=== PATIENT | female | born 1935 | race Caucasian/White ===

== ENCOUNTER 2016-07-22 10:17 | Emergency (ER) | payer OTHER ==
[~2016-07-22] VITALS: Ht 170.2 cm; Wt 83.5 kg
[~2016-07-22 10:17] MED LIST: AMLO-110 PO; ASCO100061 PO; CYAN10002 IM; FURO-85 PO; HYDR-5688 PO; OMEG12006 PO; PERI8TAB4 PO; PRED20TA PO; SPIR25TA PO; TPRSR/50 PO; ZLF/100 PO
[2016-07-22 10:29] VITALS: TEMP 36.8; Ht 170.2 cm; Wt 83.5 kg
[2016-07-22 10:47] LABS: HEMATOCRIT 43.9 % (37-47); MEAN CELL VOLUME 95.2 fL (80-100); MEAN CORPUSCULAR HEMOGLOBIN 30.6 pg (25-34); MEAN CORPUSCULAR HGB CONC 32.1 g/dl (32-36); MEAN PLATELET VOLUME 9.8 fL (7.4-10.4); PLATELET COUNT 234 K/uL (130-400); RED BLOOD COUNT 4.61 M/uL (4.2-5.4); WHITE BLOOD COUNT 6.25 K/uL (4.8-10.8)
--- NOTE | 2016-07-22 10:48 | DIAGNOSTIC IMAGING REPORT ---
SINGLE VIEW CHEST CLINICAL HISTORY: Tachycardia. FINDINGS: An AP, portable, upright chest radiograph is compared to chest x-ray and chest CT dated 05/27/2015. The examination is degraded by portable technique and patient rotation. The heart is enlarged and there is atherosclerotic calcification of the thoracic aorta. The pulmonary vasculature is noncongested. Chronic interstitial thickening is similar to previous. No airspace consolidation or large pleural effusion is identified. No pneumothorax is seen. The skeletal structures are osteopenic. The bony thorax is grossly intact. IMPRESSION: Cardiomegaly with no acute cardiopulmonary abnormality. Electronically signed by: Oumar Nolasco M.D. 07/22/2016 10:47 AM Dictated Date/Time: 07/22/2016 10:45 AM
[2016-07-22 10:52] LABS: POTASSIUM 3.5 mmol/L (3.5-5.1)
[2016-07-22 10:56] LABS: BUN/CREATININE RATIO 16.2 (10-20); CALCIUM 9.1 mg/dl (8.5-10.1); CREATININE 0.87 mg/dl (0.60-1.20)
[2016-07-22 11:00] LABS: INR 0.9 (0.9-1.1); PARTIAL THROMBOPLASTIN RATIO 1.1
[2016-07-22 11:03] LABS: ALB/GLOB RATIO 1.1 (0.9-2); CKMB/CK RATIO 1.8 (0-3.0)
[2016-07-22 11:06] VITALS: O2SAT 98
[2016-07-22] MEDS ORDERED: SENN-104 PO (11:23)
[2016-07-22] MEDS ORDERED: ASCO10003 PO (11:23)
[2016-07-22] MEDS ORDERED: DILTIAZEM HCL 120 MG CAPCR PO ONE (13:40)
[2016-07-22] MEDS ORDERED: METOPROLOL SUCC 25MG EXT REL TAB PO ONE (13:40)
--- NOTE | 2016-07-22 14:01 | EMERGENCY ROOM VISIT NOTE ---
ED Visit Note First contact with patient: 11:18 Staff note: I have reviewed the Patients chart and have discussed this case with my PA. I generally agree with the ED note and findings.
[2016-07-22] MEDS ORDERED: DILT120C51 PO (14:02)
--- NOTE | 2016-07-22 14:05 | EMERGENCY ROOM VISIT NOTE ---
History First contact with patient: 11:18 Chief Complaint: CARDIAC ASSESSMENT Stated Complaint: TACHYCARDIA Nursing Triage Summary: Pt arrives via ALS from home Pt woke up at 0700 with fast heart rate and "funny" feeling in chest and throat EMS arrived on scene and heart rate was found to be between 110-180 A Fib Pt given 324mg ASA en route Pt converts to NSR in the 90's en route History of Present Illness The patient is a 81 year old female who presents to the Emergency Room via ALS due to her heart racing. The patient states that she woke up this morning with palpitations and "a funny feeling" in her throat. She states she has been having episodes of similar symptoms 3-4 times daily for the past few weeks. The episodes typically last approximately 5 minutes each. However, she states that the symptoms lasted longer this morning, prompting her to call 911. She states that her symptoms resolved when she arrived to the hospital. Per EMS, she was found to be in atrial fibrillation with rapid ventricular response converted spontaneously to normal sinus rhythm en route. She denies any symptoms at this time. She does have a history of coronary artery disease and has a stent in her LAD which was inserted in 2004. She also has a history of tachycardia and takes metoprolol for this. About 6 months ago, she was switched from 50 mg metoprolol daily to 25 mg daily due to hypotension. She reports an additional history of hypertension, high cholesterol and hyperparathyroidism. She follows with Dr. Hood locally. She denies any associated chest pain or shortness of breath. Review of Systems A complete 10 point review of systems was reviewed with the patient with pertinent positives and negatives as per history of present illness. All else were negative. Past Medical/Surgical History Medical Problems: (1) Arthroscopy of knee joint (2) Benign hypertension (3) Coronary artery disease (4) D-dimer, elevated (5) Hypercalcemia (6) Hysterectomy (7) Parathyroidectomy (8) Placement of stent in coronary artery (9) SOB (shortness of breath) (10) Stripping of vein Family History Diabetes mellitus FH: cancer MOTHER Social History Smoking Status: Never Smoker Drug Use: none Marital Status: Housing Status: lives with family Occupation Status: retired Current/Historical Medications Scheduled Amlodipine (Norvasc), 5 MG PO DAILY Ascorbic Acid (Vitamin C), 1,000 MG PO DAILY Aspirin (Aspirin Ec), 81 MG PO DAILY Atorvastatin (Lipitor), 80 MG PO HS Cyanocobalamin (Cyanocobalamin), 1,000 MCG SQ UD Diltiazem Hcl Coated Beads (Cardizem Cd), 1 CAP PO DAILY Ergocalciferol (Vitamin D 32994 Unit), 50,000 INTER.UNIT PO WK Furosemide (Lasix), 20 MG PO MWF Metoprolol Succinate (Toprol Xl), 25 MG PO DAILY Runnells-3 Fatty Acids (Runnells 3), 1 CAPSULE PO BID Perindopril Erbumine (Perindopril Erbumine), 8 MG PO HS Sennosides-Docusate Sodium (Senna-S), 2 TABLETS PO HS Sennosides-Docusate Sodium (Senna-S), 2 TABS PO DAILY Spironolactone (Aldactone), 25 MG PO MWF Scheduled PRN Hydrocodon/Acetaminophen 5MG/300MG (Vicodin (5MG/300MG)), 1 TAB PO Q4H PRN for Pain Lorazepam (Lorazepam), 0.5 MG PO Q6H PRN for Anxiety Omeprazole (Prilosec), 20 MG PO QAM PRN for Acid Reflux Allergies Coded Allergies: Metoprolol (Verified Allergy, Intermediate, RASH, 02/24/15) MUST BE [employer] Red Dye (Verified Allergy, Intermediate, RASH, 02/24/15) SPOKE WITH PATIENT - CAN TAKE RED COLOR PILLS Thiazide-Type Diuretics (Verified Allergy, Intermediate, "Wheezing", 02/24) Alendronate (Verified Allergy, Unknown, Wheezing, shortness of breath., ) Erythromycin (Verified Allergy, Unknown, ., 02/24/15) Ezetimibe (Verified Allergy, Unknown, Muscle pain., 02/24/15) Ibandronic Acid (Verified Allergy, Unknown, Trouble swallowing., 02/24/15) Iodinated Diagnostic Agents (Verified Allergy, Unknown, UNKNOWN, 02/24/15) Simvastatin (Verified Allergy, Unknown, Muscle pain., 02/24/15) Physical Exam Vital Signs Date Time Temp Pulse Resp B/P Pulse Ox O2 Delivery O2 Flow Rate FiO2 07/22/16 14:24 72 18 165/79 96 07/22/16 13:20 79 07/22/16 11:57 79 20 157/79 98 Room Air 07/22/16 11:06 98 Room Air 07/22/16 11:04 97 Room Air 07/22/16 10:36 84 07/22/16 10:29 36.8 92 20 167/106 98 Room Air Physical Exam VITALS: Vitals are noted on the nurse's note and reviewed by myself. Vital signs stable. GENERAL: This is a 81-year-old female, in no acute distress, nondiaphoretic, well-developed well-nourished. SKIN: Capillary reflex less than 2 seconds. HEENT: Normocephalic. PERRLA. EOMI. Nares patent. Mucous membranes moist. Neck is supple without nuchal rigidity. HEART: Regular rate and rhythm without murmurs gallops or rubs. LUNGS: Clear to auscultation bilaterally without wheezes, rales or rhonchi. NEURO: Patient was alert and oriented to person place and time. Medical Decision & Procedures ER Provider Diagnostic Interpretation: SINGLE VIEW CHEST CLINICAL HISTORY: Tachycardia. FINDINGS: An AP, portable, upright chest radiograph is compared to chest x-ray and chest CT dated 05/27/2015. The examination is degraded by portable technique and patient rotation. The heart is enlarged and there is atherosclerotic calcification of the thoracic aorta. The pulmonary vasculature is noncongested. Chronic interstitial thickening is similar to previous. No airspace consolidation or large pleural effusion is identified. No pneumothorax is seen. The skeletal structures are osteopenic. The bony thorax is grossly intact. IMPRESSION: Cardiomegaly with no acute cardiopulmonary abnormality. Laboratory Results 07/22/16 09:35 07/22/16 09:35 Test 07/22/16 09:35 Red Blood Count 4.61 M/uL (4.2-5.4) Mean Corpuscular Volume 95.2 fL (80-100) Mean Corpuscular Hemoglobin 30.6 pg (25-34) Mean Corpuscular Hemoglobin Concent 32.1 g/dl (32-36) RDW Standard Deviation 47.1 fL (36.4-46.3) RDW Coefficient of Variation 13.5 % (11.5-14.5) Mean Platelet Volume 9.8 fL (7.4-10.4) Prothrombin Time 10.0 SECONDS (9.0-12.0) Prothromb Time International Ratio 0.9 (0.9-1.1) Activated Partial Thromboplast Time 27.4 SECONDS (21.0-31.0) Partial Thromboplastin Ratio 1.1 Anion Gap 9.0 mmol/L (3-11) Est Creatinine Clear Calc Drug Dose 58.2 ml/min Estimated GFR () 73.4 Estimated GFR (Non- 63.4 BUN/Creatinine Ratio 16.2 (10-20) Calcium Level 9.1 mg/dl (8.5-10.1) Total Bilirubin 0.8 mg/dl (0.2-1) Aspartate Amino Transf (AST/SGOT) 16 U/L (15-37) Alanine Aminotransferase (ALT/SGPT) 16 U/L (12-78) Alkaline Phosphatase 38 U/L (45-117) Total Creatine Kinase 101 U/L (26-192) Creatine Kinase MB 1.8 ng/ml (0.5-3.6) Creatine Kinase MB Ratio 1.8 (0-3.0) Troponin I 0.015 ng/ml (0-0.045) Total Protein 7.0 gm/dl (6.4-8.2) Albumin 3.6 gm/dl (3.4-5.0) Globulin 3.4 gm/dl (2.5-4.0) Albumin/Globulin Ratio 1.1 (0.9-2) Thyroid Stimulating Hormone (TSH) 3.790 uIu/ml (0.300-4.500) Medications Administered Medications (Trade) Dose Ordered Sig/Reginald Route Start Time Stop Time Status Last Admin Dose Admin Metoprolol Succinate (Toprol Xl Tab) 25 mg 1340 ONCE PO 07/22/16 13:40 07/22/16 13:50 DC 07/22/16 14:13 25 MG Diltiazem HCl (Cardizem Cd Cap) 120 mg 1340 ONCE PO 07/22/16 13:40 07/22/16 13:50 DC 07/22/16 14:14 120 MG ECG Rate (beats per minute): 83 Rhythm: normal sinus Findings: no acute ischemic change, no ectopy Change: no significant change ED Course The patient was evaluated as above. Labs were drawn and IV access was obtained. Patient was reevaluated and remains in normal sinus rhythm. Case was discussed with Dr. Childers as [facility] cardiology. He will consult on the patient. Dr. Childers evaluated the patient and recommended starting Cardizem. His office will contact the patient for follow-up. Discharge instructions were reviewed with the patient. The patient verbalized understanding of my assessment and treatment plan and was discharged home in good condition. Medical Decision Differential diagnosis includes acute coronary syndrome, pulmonary embolism, pneumothorax, pericarditis, myocarditis, endocarditis, anxiety, musculoskeletal pain, GERD, costochondritis, pneumonia, among others. The patient is a 81-year-old female who presents today complaining of palpitations. EMS rhythm strips were reviewed and did show atrial fibrillation with rapid ventricular response. The patient's EKG here shows a normal sinus rhythm without acute ischemia or ectopy. Troponin was not elevated. Labs were unremarkable. TSH is within normal limits. The patient remained in normal sinus rhythm on the monitor with occasional PVCs. She is a symptomatic at this time. Patient was evaluated by Dr. Childers, who recommended adding a baby aspirin daily and starting the patient on Cardizem CD 120 mg. The patient was given a prescription for this medication. She was given her dose of metoprolol as well as Cardizem in the emergency department. She will follow-up with Dr. Hood as an outpatient. The patient was independently evaluated by Dr. Stevens, ED attending physician, who agreed with my assessment and treatment plan. Based on the patient's presentation and work up, I feel the patient is stable for outpatient treatment. The patient was educated to return to the emergency department for any worsening of their current condition or new/concerning symptoms. She will follow up with her application support analyst and primary care provider. Impression Primary Impression: Atrial fibrillation with rapid ventricular response Departure Information Dispostion Home / Self-Care Condition GOOD Prescriptions Diltiazem Hcl Coated Beads (CARDIZEM CD) 120 Mg Cap 1 CAP PO DAILY, #30 CAP Prov: Desi Peng ., RAMYA 07/22/16 Referrals Leticia Olivares M.D. (PCP) Patient Instructions My [facility] Additional Instructions Cardizem daily as prescribed. Follow-up with Dr. Childers. Their office should call you with an appointment. Return to the emergency department with any recurrent symptoms, chest pain, shortness of breath, or new/concerning symptoms.
[2016-07-22 14:24] VITALS: BP 165/79; PULSE 72; O2SAT 96
--- NOTE | 2016-07-22 16:08 | CARDIOLOGY CONSULTATION ---
DATE OF CONSULTATION: 07/22/2016 CONSULTATION REQUESTED BY: The ER PA. REASON FOR CONSULTATION: Symptomatic atrial fibrillation. HISTORY OF PRESENT ILLNESS: Mrs. Coe is a very pleasant 81-year-old woman who normally follows with Dr. Hood of our cardiology practice for history of coronary artery disease. She presented to [facility] Emergency Department on 07/22/2016 with a complaint of palpitations. She states that over the last several weeks she is noticing that her heart will suddenly start to race and it will be rather uncomfortable for her. She states that this can occur either at rest or with exertion and usually only lasts a few minutes and subsides on its own. Last evening she had another episode of her heart racing; however, this episode persisted. Seemed to wax and wane throughout the night and persisted into the morning, so upon awakening, she called EMS and was brought into the Emergency Department. When she was placed on front desk monitor by EMS, atrial fibrillation was documented and then the patient spontaneously converted to normal sinus rhythm during the transportation. Upon arrival to the ER, she was in sinus and she remained in sinus throughout her stay. Cardiology was consulted for further evaluation. Of note, the patient states this is the longest episode she has ever had, lasting about 10 hours. The other episodes seemed to last only for a moment or two. She has never had any workup in the past for palpitations and she has never been diagnosed with atrial fibrillation before. PAST SURGICAL HISTORY: 1. PCI to the LAD in 2004. 2. Total hysterectomy. 3. Colonoscopies. 4. Tonsil and adenoidectomy. 5. Vein stripping. 6. Cataract surgery. MEDICAL ILLNESSES: 1. Coronary artery disease, status post PCI to the LAD. 2. Anxiety. 3. Asthma. 4. Hypertension. 5. Depression. 6. Dyslipidemia. 7. Hyperparathyroidism. 8. Stage III chronic kidney disease. FAMILY HISTORY: Noncontributory. SOCIAL HISTORY: The patient denies any alcohol, tobacco or recreational drug use. She is . 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 REVIEW OF SYSTEMS: As per HPI, all other review of systems were reviewed and negative at this time. ALLERGIES: 1. ERYTHROMYCIN. 2. ZETIA. 3. CONTRAST AGENTS. 4. METOPROLOL TARTRATE. 5. RED DYE. 6. SIMVASTATIN. 7. THIAZIDE DIURETICS. MEDICATIONS AN OUTPATIENT: 1. Aspirin 81 mg daily. 2. Spironolactone 25 mg q. Tuesday, Tuesday, Tuesday as needed for fluid retention. 3. Lasix 20 mg q. Tuesday, Tuesday, Tuesday as needed for fluid retention. 4. Toprol-XL 25 mg daily. 5. Lipitor 80 mg daily. 6. Amlodipine 5 mg daily. PHYSICAL EXAMINATION: VITALS: Temperature is 36.8, pulse 79, respiratory rate 12, blood pressure 157/79. GENERAL: Awake, alert, oriented x3 in no acute distress, mildly anxious. HEENT: Normocephalic, atraumatic. Pupils equal, round, and reactive to light and accommodation. Extraocular muscles intact. Anicteric sclerae. Moist mucous membranes. NECK: No JVD, no bruit. CARDIOVASCULAR: Regular. Positive S4. Normal S1 and S2. No S3. No murmurs or rubs. PULMONARY: Clear to auscultation bilaterally. No rales, rhonchi or wheezing. ABDOMEN: Bowel sounds x4, soft. No rebound, guarding, tenderness. No organomegaly. EXTREMITIES: No clubbing, cyanosis or edema. +2 pedal pulses bilaterally. SKIN: Warm and dry. TEST RESULTS: Telemetry strips from EMS reviewed personally shows atrial fibrillation with rapid ventricular response. A 12-lead EKG upon presentation to the Emergency Department independently reviewed at this time shows normal sinus rhythm at 83 beats per minute. IMPRESSION: 1. Paroxysmal atrial fibrillation, new onset with a CHADS score of 2. 2. Hypertension. 3. Coronary artery disease. 4. Dyslipidemia. RECOMMENDATIONS: It was my pleasure to see Mrs. Coe in consultation today. The pathophysiology and treatment options for atrial fibrillation were discussed with the patient at great lengths. At this point, the patient states that she absolutely does not want any blood thinners whatsoever stating that she is scared of this medication. So given the fact that her episode spontaneously resolved along with her intermediate JANE score of 2, we will proceed with aspirin 81 mg daily only at this time. In terms of further rate and rhythm control further options were discussed including increasing her metoprolol, adding Cardizem or starting her on antiarrhythmic and the patient opted for starting Cardizem along with her normal dose of metoprolol given the fact that higher doses of Toprol in the past have caused hypotension. So at this point, will discontinue her amlodipine 5 mg daily and start her on Cardizem-CD 120 mg daily. She will continue her aspirin and metoprolol. We will need to follow her further on a monitor to evaluate for her atrial fibrillation burden, so we will arrange for a 2-week ZIO monitor as an outpatient as well as a followup 2-D echocardiogram which she has not had in about 6 years now and will then have her followup with Dr. Hood her primary ic designer standard cells in the next few weeks once the above testing is completed. In the meantime, the patient was instructed should she have any recurrences of her symptoms, she should come back immediately to the nearest Emergency Room. The patient states she understands and will comply, it is okay to discharge the patient home from a cardiac standpoint.
[2016-07-23] MEDS ORDERED: METOPROLOL SUCC 25MG EXT REL TAB PO SCH (09:00)
[2016-07-23] MEDS ORDERED: DILTIAZEM HCL 120 MG CAPCR PO SCH (09:00)
[2016-12-11] MEDS ORDERED: HYDR-3419 PO (11:23)
[2016-12-11] MEDS ORDERED: METO25TA3 PO (11:23)
[2016-12-11] MEDS ORDERED: CYNI1000 SQ (11:23)
== END 2016-07-22 14:25 | disposition home or self-care (01) ==
LOC: EDBD 10:17 → C.EDC 10:20
DX: I48.91 Unspecified atrial fibrillation (principal); I10 Essential (primary) hypertension; I25.10 Atherosclerotic heart disease of native coronary artery without angina pectoris; Z90.710 Acquired absence of both cervix and uterus; Z98.61 Coronary angioplasty status; Z96.659 Presence of unspecified artificial knee joint; Z79.82 Long term (current) use of aspirin; Z79.899 Other long term (current) drug therapy; Z88.8 Allergy status to other drugs, medicaments and biological substances; Z91.041 Radiographic dye allergy status; Z83.3 Family history of diabetes mellitus; Z80.9 Family history of malignant neoplasm, unspecified

== ENCOUNTER 2016-12-11 15:33 | Emergency (ER) | payer OTHER ==
[~2016-12-11] VITALS: Ht 170.2 cm; Wt 86.3 kg
[~2016-12-11 15:33] MED LIST changes: +ASCO10003 PO; -ASCO100061 PO; -CYAN10002 IM; +CYNI1000 SQ; +DILT120C51 PO; +HYDR-3419 PO; -HYDR-5688 PO; +METO25TA3 PO; -PRED20TA PO; +SENN-104 PO; -TPRSR/50 PO; -ZLF/100 PO
[2016-12-11 15:36] VITALS: TEMP 36.9; Ht 170.2 cm; Wt 86.3 kg
[2016-12-11] MEDS ORDERED: LIDOCAINE/EPINEPH/TETRACAINE 1 EA SYR EXT STA (15:58)
[2016-12-11 16:03] VITALS: O2SAT 97
[2016-12-11] MEDS ORDERED: LIDOCAINE 4% W/AFRIN NASAL SOLN 4ML ONE (16:06)
[2016-12-11 16:12] LABS: BASO % 0.5 %; BASO ABS # 0.03 K/uL (0-0.2); COMPLETE YES; EOS % 3.7 %; IG% 0.4 %; LYMPH % 24.8 %; LYMPH ABS # 1.41 K/uL (1.2-3.4); MEAN CELL VOLUME 94.6 fL (80-100); MEAN CORPUSCULAR HEMOGLOBIN 31.2 pg (25-34); MEAN PLATELET VOLUME 9.3 fL (7.4-10.4); MONO % 9.8 %; NEUT % 60.8 %; PLATELET COUNT 218 K/uL (130-400); RED BLOOD COUNT 4.23 M/uL (4.2-5.4); WHITE BLOOD COUNT 5.69 K/uL (4.8-10.8)
--- NOTE | 2016-12-11 16:21 | EMERGENCY ROOM VISIT NOTE ---
History First contact with patient: 15:40 Chief Complaint: NOSE BLEED (MINOR) Stated Complaint: NOSE BLEED History of Present Illness The patient is a 81 year old female who presents to the Emergency Room with complaints of nosebleed that started around 1 PM today. She states the nose began bleeding spontaneously, she denies any trauma or injury to the nose. She states that she held pressure for at least 20 minutes and got the bleeding to stop. She started to eat lunch and then the bleeding began again, and she had difficulty stopping the bleeding, which prompted her to come to the emergency department today. She has had some associated dizziness/feeling funny in the head. She states the bleeding has been coming out of the front of her left nostril, she denies swallowing blood or drainage in the back of her throat. She reports a remote history of nosebleed once before many years ago that she states "they had to cauterize it." Patient has a friend who is a nurse who took her blood pressure and states it was elevated at 180/90. The patient does take Coumadin for recent diagnosis of atrial fib, states her last INR level was checked about a week or so ago and was 2.5. She denies noticing any other unusual bleeding or bruising. She denies any headache, vision changes, neck pain, chest pain, shortness of breath, palpitations, syncope, abdominal pain, numbness or weakness, confusion, slurred speech. Review of Systems A complete 10 point review of systems was reviewed with the patient with pertinent positives and negatives as per history of present illness. All else were negative. Past Medical/Surgical History Medical Problems: (1) Arthroscopy of knee joint (2) Benign hypertension (3) Coronary artery disease (4) D-dimer, elevated (5) Hypercalcemia (6) Hysterectomy (7) Parathyroidectomy (8) Placement of stent in coronary artery (9) SOB (shortness of breath) (10) Stripping of vein Family History Diabetes mellitus FH: cancer MOTHER Social History Smoking Status: Never Smoker Drug Use: none Marital Status: Housing Status: lives with family Occupation Status: retired Current/Historical Medications Scheduled Aspirin (Aspirin Ec), 81 MG PO DAILY Atorvastatin (Lipitor), 80 MG PO HS Cyanocobalamin (Cyanocobalamin), 1,000 MCG SQ MONTHLY Denosumab (Prolia), 60 MG PO Q6MO Ergocalciferol (Vitamin D 30987 Unit), 50,000 INTER.UNIT PO WK Metoprolol Succinate (Toprol Xl), 25 MG PO DAILY Sennosides-Docusate Sodium (Senna-S), 2 TABLETS PO HS Warfarin Sodium (Warfarin Sodium), 2.5 MG PO [id number] Warfarin Sodium (Warfarin Sodium), 5 MG PO Q MON Scheduled PRN Hydrocodon/Acetaminophen 5MG/300MG (Vicodin (5MG/300MG)), 1 TAB PO Q4H PRN for Pain Lorazepam (Lorazepam), 0.5 MG PO Q6H PRN for Anxiety Omeprazole (Prilosec), 20 MG PO QAM PRN for Acid Reflux Physical Exam Vital Signs Date Time Temp Pulse Resp B/P (MAP) Pulse Ox O2 Delivery O2 Flow Rate FiO2 12/11/16 17:44 66 24 194/95 96 Room Air 12/11/16 17:15 65 12/11/16 17:12 66 21 165/98 96 12/11/16 16:03 97 Room Air 12/11/16 16:03 97 Room Air 12/11/16 15:36 36.9 70 20 179/95 97 Room Air Physical Exam CONSTITUTIONAL: No acute distress. Well appearing and well nourished. Alert and oriented X 4 with normal affect. HEENT: Normocephalic, atraumatic. Pupils equal, round and reactive to light, EOMI. TMs normal. Bilateral naris patent, there is a small blood vessel on the anterior septum of the left naris that appears irritated, no active bleeding noted. Pharynx normal, no posterior draining blood or clots in the throat. NECK: Supple, full active range of motion without discomfort. RESPIRATORY: Clear to auscultation bilaterally with no wheezing, crackles, rhonchi or stridor. Equal expansion bilaterally. CARDIOVASCULAR: Regular rate and rhythm with no murmurs, rubs or gallops. Normal peripheral perfusion. No edema. GASTROINTESTINAL: Soft, nontender, nondistended. Bowel sounds present in all quadrants. MUSCULOSKELETAL: Full range of motion of all joints without discomfort. INTEGUMENTARY: No rash or other significant dermatologic conditions noted. NEUROLOGIC: Cranial nerves II-XII grossly intact. No focal neurologic deficits noted. Normal strength, normal sensation, normal gait, normal speech, normal coordination. Medical Decision & Procedures ER Provider Diagnostic Interpretation: TWO VIEW CHEST CLINICAL HISTORY: Hypertension. FINDINGS: PA and lateral chest radiographs are compared to study dated 07/22/2016 and correlated with chest CT dated 05/27/2015. The heart is enlarged and there is atherosclerotic calcification of the thoracic aorta. The pulmonary vasculature is noncongested. Chronic interstitial thickening and focal eventrated of the right hemidiaphragm are similar to previous. No airspace consolidation or pleural effusion is identified. There is no pneumothorax. The skeletal structures are osteopenic. Degenerative change and mild hyperkyphosis is present in the thoracic spine. IMPRESSION: Cardiomegaly with no active disease in the chest. Laboratory Results 12/11/16 16:00 Red Blood Count 4.23, Mean Corpuscular Volume 94.6, Mean Corpuscular Hemoglobin 31.2, Mean Corpuscular Hemoglobin Concent 33.0, Mean Platelet Volume 9.3, Neutrophils (%) (Auto) 60.8, Lymphocytes (%) (Auto) 24.8, Monocytes (%) (Auto) 9.8, Eosinophils (%) (Auto) 3.7, Basophils (%) (Auto) 0.5, Neutrophils # (Auto) 3.46, Lymphocytes # (Auto) 1.41, Monocytes # (Auto) 0.56, Eosinophils # (Auto) 0.21, Basophils # (Auto) 0.03 12/11/16 16:00 Test 12/11/16 16:00 12/11/16 16:10 White Blood Count 5.69 K/uL (4.8-10.8) Red Blood Count 4.23 M/uL (4.2-5.4) Hemoglobin 13.2 g/dL (12.0-16.0) Hematocrit 40.0 % (37-47) Mean Corpuscular Volume 94.6 fL (80-100) Mean Corpuscular Hemoglobin 31.2 pg (25-34) Mean Corpuscular Hemoglobin Concent 33.0 g/dl (32-36) Platelet Count 218 K/uL (130-400) Mean Platelet Volume 9.3 fL (7.4-10.4) Neutrophils (%) (Auto) 60.8 % Lymphocytes (%) (Auto) 24.8 % Monocytes (%) (Auto) 9.8 % Eosinophils (%) (Auto) 3.7 % Basophils (%) (Auto) 0.5 % Neutrophils # (Auto) 3.46 K/uL (1.4-6.5) Lymphocytes # (Auto) 1.41 K/uL (1.2-3.4) Monocytes # (Auto) 0.56 K/uL (0.11-0.59) Eosinophils # (Auto) 0.21 K/uL (0-0.5) Basophils # (Auto) 0.03 K/uL (0-0.2) RDW Standard Deviation 46.8 fL (36.4-46.3) RDW Coefficient of Variation 13.6 % (11.5-14.5) Immature Granulocyte % (Auto) 0.4 % Immature Granulocyte # (Auto) 0.02 K/uL (0.00-0.02) Prothrombin Time 22.2 SECONDS (9.0-12.0) Prothromb Time International Ratio 2.0 (0.9-1.1) Activated Partial Thromboplast Time 39.9 SECONDS (21.0-31.0) Partial Thromboplastin Ratio 1.5 Anion Gap 6.0 mmol/L (3-11) Est Creatinine Clear Calc Drug Dose 51.5 ml/min Estimated GFR () 62.1 Estimated GFR (Non- 53.5 BUN/Creatinine Ratio 19.0 (10-20) Calcium Level 8.6 mg/dl (8.5-10.1) Total Bilirubin 0.6 mg/dl (0.2-1) Direct Bilirubin 0.2 mg/dl (0-0.2) Aspartate Amino Transf (AST/SGOT) 15 U/L (15-37) Alanine Aminotransferase (ALT/SGPT) 19 U/L (12-78) Alkaline Phosphatase 43 U/L (45-117) Troponin I < 0.015 ng/ml (0-0.045) Total Protein 6.6 gm/dl (6.4-8.2) Albumin 3.7 gm/dl (3.4-5.0) Urine Color YELLOW Urine Appearance CLEAR (CLEAR) Urine pH 5.0 (4.5-7.5) Urine Specific Howard 1.015 (1.000-1.030) Urine Protein NEG (NEG) Urine Glucose (UA) NEG (NEG) Urine Ketones NEG (NEG) Urine Occult Blood 1+ (NEG) Urine Nitrite NEG (NEG) Urine Bilirubin NEG (NEG) Urine Urobilinogen NEG (NEG) Urine Leukocyte Esterase TRACE (NEG) Urine WBC (Auto) 1-5 /hpf (0-5) Urine RBC (Auto) 0-4 /hpf (0-4) Urine Hyaline Casts (Auto) 0 /lpf (0-5) Urine Epithelial Cells (Auto) 10-20 /lpf (0-5) Urine Bacteria (Auto) NEG (NEG) Medications Administered Medications (Trade) Dose Ordered Sig/Reginald Route Start Time Stop Time Status Last Admin Dose Admin Lorazepam (Ativan Tab) 0.5 mg NOW STAT PO 12/11/16 17:54 12/11/16 17:56 DC 12/11/16 18:00 0.5 MG Procedure Verbal consent was obtained from the patient for the procedure of intra-nasal cautery. After applying 2 sprays of Afrin nasal spray to the left nostril and achieving appropriate anesthesia with LET gel, the small bleeder noted on the anterior septal wall of the left nostril was cauterized with a single silver nitrate stick. Hemostasis achieved. Sterile lubrication was applied gently to the inside of the nostril. Patient tolerated the procedure well with no known palpitations. ECG Indication: other (hypertension) Rate (beats per minute): 69 Rhythm: normal sinus Findings: no acute ischemic change, no ectopy Change: no significant change (07/22/2016) Medical Decision CC: Patient presenting with complaint of nosebleed, hypertension Interpretation of Labs: No leukocytosis, no anemia, no significant electrolyte abnormalities, normal renal function, therapeutic INR at 2.0, negative troponin. UA unremarkable, no proteinuria. Differential Diagnosis: Includes, but not limited to anterior epistaxis, posterior epistaxis, poorly controlled hypertension, supratherapeutic anticoagulant, sinusitis, nasal trauma, among others. Medication Reconciliation: I attest that I have personally reviewed the patient' s current medication list. Vital signs review: I reviewed the patient's vital signs and interpret them as follows: T: Afebrile; BP: Hypertensive; HR: Within normal limits; RR: Within normal limits; Pulse Ox: Within normal limits on room air. Blood pressure screening: The patient was found to have an elevated blood pressure and was referred to their primary doctor for recheck and further treatment. Summary: Patient was evaluated at bedside, history of physical exam performed. Patient is alert and oriented, in no acute distress, resting comfortably in the stretcher. She has no active bleeding from her nose on exam. There is an anterior septal blood vessel noted that appears mildly irritated, when it is examined and palpated, it easily begins to bleed. She is noted to be hypertensive on triage vitals. EKG reviewed at bedside, shows normal sinus rhythm and no acute ischemic changes. When compared to previous EKG, appears unchanged. Orders were placed at bedside for labs including PT/INR, UA, chest x-ray to evaluate for hypertension. Patient discussed with Dr. Mesa, who agrees with my assessment and plan. Labs reviewed as above, unremarkable. Therapeutic INR. Chest x-ray reviewed, no acute abnormalities. Intranasal cautery for control of bleeding, see procedure note. Patient reassessed multiple times throughout ED stay, she was improved nosebleed was fully controlled. Patient was instructed to follow closely with her PCP, specifically to have her blood pressure rechecked, she verbalizes understanding. Patient did complain of feeling very anxious continues to have high blood pressure. She takes Ativan as needed for her anxiety, she is requesting this here, this was ordered. Patient was given strict return precautions should her symptoms recur or worsen , she verbalized understanding. Patient was discharged home in stable condition and ambulatory. Medication Reconcilliation Current Medication List: was personally reviewed by me Blood Pressure Screening Patient's blood pressure: Elevated blood pressure Blood pressure disposition: Referred to PCP Impression Primary Impression: Anterior epistaxis Additional Impression: Hypertension Departure Information Dispostion Home / Self-Care Condition GOOD Referrals Wilma Martino D.OYolette (PCP) Patient Instructions ED Nosebleed, My [facility] Additional Instructions You have been treated in the Emergency Department today for your Nose Bleed ( Epistaxis). Do NOT blow your nose for the next few days. This can result in recurrence of your nosebleed. You should consider using a humidifier or vaporizer to help moisten the air and decrease instances of nosebleeds. You can use [id number] saline nasal sprays to help moisten the nasal mucosa and decrease instances of nosebleeds. As with any trip to the Emergency Department, you should follow-up with your Primary Care Provider from today's visit. Return to the emergency department if your symptoms persist despite treatment plan outlined above or if the following symptoms occur: uncontrollable nosebleed , dizziness, lightheadedness, passing out, or severe headache. Problem Qualifiers Additional Impression: Hypertension Hypertension type: unspecified Qualified Codes: I10 - Essential (primary) hypertension
[2016-12-11 16:23] LABS: PARTIAL THROMBOPLASTIN RATIO 1.5; PROTHROMBIN TIME (PATIENT) 22.2 SECONDS (9.0-12.0)
[2016-12-11 16:25] LABS: URINE APPEARANCE CLEAR (CLEAR); URINE BILIRUBIN NEG (NEG); URINE COLOR YELLOW; URINE NITRITE NEG (NEG); URINE SPECIFIC GRAVITY 1.015 (1.000-1.030); UROBILINOGEN NEG (NEG)
[2016-12-11 16:26] LABS: MANUAL MICROSCOPIC REQUIRED? NO; REVIEW REQ? NO
[2016-12-11 16:28] LABS: ALT/SGPT 19 U/L (12-78); AST/SGOT 15 U/L (15-37); BLOOD UREA NITROGEN 19 mg/dl (7-18); CALCIUM 8.6 mg/dl (8.5-10.1); CARBON DIOXIDE 28 mmol/L (21-32); CHLORIDE 110 mmol/L (98-107); GLUCOSE 101 mg/dl (70-99); SODIUM 144 mmol/L (136-145)
[2016-12-11] MEDS ORDERED: WARF-246 PO ×2 (16:29)
[2016-12-11] MEDS ORDERED: CMD/25 PO (16:29)
[2016-12-11 16:33] LABS: ALKALINE PHOSPHATASE 43 U/L (45-117)
[2016-12-11] MEDS ORDERED: DENO60SO PO (16:34)
--- NOTE | 2016-12-11 16:48 | DIAGNOSTIC IMAGING REPORT ---
TWO VIEW CHEST CLINICAL HISTORY: Hypertension. FINDINGS: PA and lateral chest radiographs are compared to study dated 07/22/2016 and correlated with chest CT dated 05/27/2015. The heart is enlarged and there is atherosclerotic calcification of the thoracic aorta. The pulmonary vasculature is noncongested. Chronic interstitial thickening and focal eventrated of the right hemidiaphragm are similar to previous. No airspace consolidation or pleural effusion is identified. There is no pneumothorax. The skeletal structures are osteopenic. Degenerative change and mild hyperkyphosis is present in the thoracic spine. IMPRESSION: Cardiomegaly with no active disease in the chest. Electronically signed by: Oumar Nolasco M.D. 12/11/2016 4:46 PM Dictated Date/Time: 12/11/2016 4:45 PM
[2016-12-11] MEDS ORDERED: SILVER NITR/POTASSIUM NITRATE 10 APPLICATOR PACK EXT STA (17:03)
[2016-12-11] MEDS ORDERED: SILVER NITR/POTASSIUM NITRATE 10 APPLICATOR PACK ONE (17:11)
[2016-12-11 17:44] VITALS: BP 194/95; PULSE 66; O2SAT 96
[2016-12-11] MEDS ORDERED: LORAZEPAM 0.5 MG TAB PO STA (17:54)
[2016-12-11] MEDS ORDERED: ATOR-26 PO (19:14)
[2016-12-11] MEDS ORDERED: ERGO500037 PO (19:14)
[2016-12-11] MEDS ORDERED: SENN-104 PO (19:18)
[2016-12-11] MEDS ORDERED: OMEP20CA9 PO (20:07)
[2016-12-11] MEDS ORDERED: ATV5X PO (20:07)
[2016-12-11] MEDS ORDERED: ASPI81TA28 PO (20:07)
== END 2016-12-11 18:06 | disposition home or self-care (01) ==
LOC: C.EDB 15:36 → C.EDA 18:06
DX: R04.0 Epistaxis (principal); I10 Essential (primary) hypertension; I48.91 Unspecified atrial fibrillation; I25.10 Atherosclerotic heart disease of native coronary artery without angina pectoris; E83.52 Hypercalcemia; Z79.01 Long term (current) use of anticoagulants; Z79.82 Long term (current) use of aspirin; Z95.5 Presence of coronary angioplasty implant and graft; Z90.710 Acquired absence of both cervix and uterus; Z83.3 Family history of diabetes mellitus

== ENCOUNTER 2021-02-13 16:31 | Inpatient (IN) ==
[2021-02-13] MEDS ORDERED: SODIUM CHLORIDE 0.9% 1000ML 1,000 ML IV SCH (18:00)
--- NOTE | 2021-02-13 18:06 | Emergency Department Note ---
History of Present Illness General Chief complaint: Shortness of Breath/Dyspnea Stated complaint: DR COBB, ATRIL FIB, RETAINING FLUID, SOB Time Seen by Provider: 02/13/21 17:29 Source: patient Mode of arrival: ambulatory Limitations: no limitations History of Present Illness Provider complaint: dyspnea, a.fib Onset (ago): week(s) 2 Treatments prior to arrival: none This is an 85-year-old female presents emergency department with concern for recurrent atrial fibrillation and shortness of breath. Patient states many years ago she had an episode of atrial fibrillation however it resolved. She states she uses a baby aspirin, no anticoagulation. She states approximately 2 weeks ago she noticed a rapid and irregular pounding in her chest that she associated with A. fib given it was similar to the prior episode. She states she is more lightheaded, more short of breath, more fatigued with exertion. She also states she feels as though she is "filling up with fluid" despite using a diuretic daily. She states she did see the nurse practitioner and her card iologist office who increased her metoprolol however her symptoms did not improve. Pt seen during a time of high acuity and national emergency pandemic while wearing PPE. Home Medications Medication Instructions Recorded Confirmed Type acetaminophen 500 mg tablet 1,000 mg PO BID 01/13/21 02/13/21 History ascorbic acid (vitamin C) 1,000 mg 1 g PO QAM 01/13/21 02/13/21 History tablet (Vitamin C) aspirin 81 mg tablet,delayed 81 mg PO QAM 01/13/21 02/13/21 History release (Aspirin Low Dose) atorvastatin 40 mg tablet 40 mg PO HS 01/13/21 02/13/21 History calcitriol 1 mcg/mL oral solution 1 mcg PO 3XWK 01/13/21 02/13/21 History cyanocobalamin (vitamin B-12) 1,000 mcg PO 3XWK 01/13/21 02/13/21 History 1,000 mcg tablet (Vitamin B-12) denosumab 60 mg/mL subcutaneous 60 mg SUBCUT UD 01/13/21 02/13/21 History syringe (Prolia) duloxetine 20 mg capsule,delayed 20 mg PO QAM 01/13/21 02/13/21 History release furosemide 20 mg tablet 40 mg PO QAM 01/13/21 02/13/21 History latanoprost (PF) 0.005 % eye drops 1 drp OPHTHALMIC (EYE) PM 01/13/21 02/13/21 History lorazepam 0.5 mg tablet 0.5 mg PO DAILY PRN 01/13/21 02/13/21 History losartan 100 mg tablet 100 mg PO QAM 01/13/21 02/13/21 History omeprazole 20 mg tablet,delayed 20 mg PO QAM 01/13/21 02/13/21 History release sennosides 8.6 mg-docusate sodium 2 tab-cap PO HS 01/13/21 02/13/21 History 50 mg capsule zinc 50 mg tablet 50 mg PO QAM 01/13/21 02/13/21 History ferrous fumarate-vitamin C 132 1 tab PO DAILY@12 02/13/21 02/13/21 History mg-250 mg tablet metoprolol tartrate 100 mg tablet 100 mg PO QAM 02/13/21 02/13/21 History metoprolol tartrate 50 mg tablet 150 mg PO HS 02/13/21 02/13/21 History Allergies Allergy/AdvReac Type Severity Reaction Status Date / Time alendronate sodium Allergy Intermediate Wheezing, Verified 02/13/21 18:10 shortness of breath. ezetimibe Allergy Intermediate Muscle Verified 02/13/21 18:10 pain. ibandronate sodium Allergy Intermediate trouble Verified 02/13/21 18:10 [From Maria Fernanda] swallowing Iodinated Contrast Media Allergy Intermediate Wheezing Verified 02/13/21 18:10 simvastatin Allergy Intermediate Muscle Verified 02/13/21 18:10 pain. erythromycin base Allergy Mild Nausea Verified 02/13/21 18:10 red dye Allergy Mild RASH Verified 02/13/21 18:10 Past Med/Surg History Medical History (Updated 02/15/21 @ 00:06 by Miley Desai DO) Ambulates with cane Anemia Cardiac murmur Chronic kidney disease (CKD), stage III (moderate) Depression GERD (gastroesophageal reflux disease) Glaucoma History of COVID-19 diagnosed 02/2020 @ [facility]--fever, headache, cough, loss of tast e/smell--no issues now Myocardial Infarction (~2005) follows with Poli Zepeda PA-C @ [facility] On home oxygen therapy 2 L n/c at hs only Osteoarthritis Pacemaker (~2011) Med[employer]onic Model: A2DR01 04/11/2017 Dual-chamber Sleep apnea 2L N/C at hs Thyroid nodule Surgical History History of arthroscopy of left knee History of bilateral cataract extraction History of cardiac cath 2005 with 1 stent placed @ [place] History of colonoscopy History of dilatation and curettage History of facial surgery metal plate under left eye/left cheek History of parathyroidectomy partial @ [facility] History of partial hysterectomy History of permanent cardiac pacemaker placement [facility] History of tooth extraction all teeth S/P excision of lipoma Family History Other No family history of adverse response to anesthesia Social History Smoking Status: Never smoker Second Hand Exposure: No; Hx Alcohol Use: Yes Alcohol type: wine Hx Substance Use: No Preferred Language: Malay Communication Ability: Effective Book Trimmer Required: No Beliefs That Will Affect Care: None Current Living Situation: Alone Feels Safe at Home: Yes Safety Concerns: Feels Safe At This Time Assistive Devices: Walker Review of Systems A total of 10 systems reviewed and were otherwise negative All systems reviewed & are unremarkable except as noted in HPI & below Physical Exam Vital Signs Vital Signs - 24 hr 02/13/21 16:49 02/13/21 17:45 02/13/21 19:00 Temperature 36.4 C L Temperature Source Oral Pulse Rate 122 H 122 H Pulse Rate [Left Finger] 120 H 109 H Pulse Rhythm Regular Pulse Rhythm [Left Finger] Regular Pulse Strength Normal Pulse Strength [Left Finger] Normal Respiratory Rate 20 25 H 24 Respiratory Effort / Characteristics Non-Labored Spontaneous Non-Labored Spontaneous Respiratory Depth Normal Normal Respiratory Pattern Regular Regular Blood Pressure 148/91 H 134/113 H Blood Pressure [Right Arm] 147/102 H 142/99 H Blood Pressure Mean 110 120 Blood Pressure Mean [Right Arm] 117 113 Blood Pressure Position [Right Arm] Sitting Pulse Oximetry 90 98 98 Oxygen Delivery Method Room Air Room Air Room Air Sepsis Recent Fever Within 48 Hours No Sepsis New/Unexplained Change in Mental Status N/A Sepsis Action Taken by Nursing No Action Required 02/13/21 20:13 02/13/21 20:30 02/13/21 21:00 Temperature Temperature Source Pulse Rate 100 H 100 H 96 H Pulse Rate [Left Finger] Pulse Rhythm Pulse Rhythm [Left Finger] Pulse Strength Pulse Strength [Left Finger] Respiratory Rate 16 24 18 Respiratory Effort / Characteristics Respiratory Depth Respiratory Pattern Blood Pressure 167/115 H 162/108 H 157/121 H Blood Pressure [Right Arm] Blood Pressure Mean 132 126 133 Blood Pressure Mean [Right Arm] Blood Pressure Position [Right Arm] Pulse Oximetry 95 Oxygen Delivery Method Sepsis Recent Fever Within 48 Hours Sepsis New/Unexplained Change in Mental Status Sepsis Action Taken by Nursing 02/13/21 21:30 02/13/21 22:00 02/13/21 23:00 Temperature Temperature Source Pulse Rate 95 H 102 H 92 H Pulse Rate [Left Finger] Pulse Rhythm Pulse Rhythm [Left Finger] Pulse Strength Pulse Strength [Left Finger] Respiratory Rate 24 17 20 Respiratory Effort / Characteristics Respiratory Depth Respiratory Pattern Blood Pressure 165/103 H 146/100 H 146/116 H Blood Pressure [Right Arm] Blood Pressure Mean 123 115 126 Blood Pressure Mean [Right Arm] Blood Pressure Position [Right Arm] Pulse Oximetry Oxygen Delivery Method Sepsis Recent Fever Within 48 Hours Sepsis New/Unexplained Change in Mental Status Sepsis Action Taken by Nursing 02/13/21 23:30 02/13/21 23:41 Temperature Temperature Source Pulse Rate 90 Pulse Rate [Left Finger] 100 H Pulse Rhythm Pulse Rhythm [Left Finger] Pulse Strength Pulse Strength [Left Finger] Respiratory Rate 22 16 Respiratory Effort / Characteristics Non-Labored Spontaneous Respiratory Depth Respiratory Pattern Blood Pressure 154/119 H Blood Pressure [Right Arm] Blood Pressure Mean 130 Blood Pressure Mean [Right Arm] Blood Pressure Position [Right Arm] Pulse Oximetry 95 Oxygen Delivery Method Room Air Sepsis Recent Fever Within 48 Hours Sepsis New/Unexplained Change in Mental Status Sepsis Action Taken by Nursing GENERAL: alert, well appearing, well nourished, no distress, non-toxic EYE EXAM: normal conjunctiva, PERRL and EOM's grossly intact OROPHARYNX: no exudate, no erythema, lips, buccal mucosa, and tongue normal and mucous membranes are moist NECK: supple, no nuchal rigidity, no adenopathy, non-tender LUNGS: Clear to auscultation. Normal chest wall mechanics, no w/r/r HEART: no murmurs, S1 normal and S2 normal ABDOMEN: abdomen soft, non-tender, normo-active bowel sounds, no masses, no rebound or guarding. BACK: Back is symmetrical on inspection and there is no deformity, no midline tenderness, no CVA tenderness. SKIN: no rashes and no bruising UPPER EXTREMITIES: upper extremities are grossly normal. FROM, nml pulses b/l. LOWER EXTREMITIES: No pitting edema. FROM, nml pulses b/l. NEURO EXAM: Normal sensorium, cranial nerves II-XII grossly intact, normal speech, no gross weakness of arms, no gross weakness of legs. Gross sensation intact. Course Administered Medications Acetaminophen (Acetaminophen 325 Mg Tab) 650 mg PO Q4H PRN PRN Reason: Pain or Fever Stop: 03/16/21 00:51 Last Admin: 02/14/21 21:38 Dose: 650 mg Documented by: [id number] Admin: 02/14/21 11:18 Dose: 650 mg Documented by: [id number] Admin: 02/14/21 01:50 Dose: 650 mg Documented by: [id number] Aspirin (Aspirin 81 Mg Ectab) [facility] Stop: 03/16/21 08:59 Last Admin: 02/14/21 08:21 Dose: 81 mg Documented by: [id number] Atorvastatin Calcium (Atorvastatin 40 Mg Tab) 40 mg PO [facility] Stop: 03/16/21 20:59 Last Admin: 02/14/21 20:32 Dose: 40 mg Documented by: [id number] Duloxetine HCl (Duloxetine Hcl 20 Mg Cap) 20 mg PO [facility] Stop: 03/16/21 08:59 Last Admin: 02/14/21 08:21 Dose: 20 mg Documented by: [id number] Heparin Sodium (Porcine) (Heparin Sod 5,000 Unit/0.5 Ml Vial) 5,000 units SQ Q8 [facility] Stop: 03/16/21 05:59 Last Admin: 02/14/21 20:56 Dose: 5,000 units Documented by: [id number] Admin: 02/14/21 15:14 Dose: 5,000 units Documented by: [id number] Admin: 02/14/21 05:40 Dose: 5,000 units Documented by: [id number] Latanoprost (Latanoprost 0.005% Op Soln 2.5 Ml Btl) 1 drops OP HS [facility] Stop: 03/16/21 20:59 Last Admin: 02/14/21 20:33 Dose: 1 drops Documented by: [id number] Lorazepam (Lorazepam 0.5 Mg Tab) 0.5 mg PO DAILY PRN PRN Reason: Anxiety Stop: 03/16/21 00:51 Last Admin: 02/14/21 18:14 Dose: 0.5 mg Documented by: [id number] Metoprolol Succinate (Metoprolol Succ 25mg Ext Rel Tab) 125 mg PO BID [facility] Stop: 03/16/21 20:59 Last Admin: 02/14/21 20:31 Dose: 125 mg Documented by: [id number] Pantoprazole Sodium (Pantoprazole 40 Mg Tab) 40 mg PO QAM [facility] Stop: 03/16/21 08:59 Last Admin: 02/14/21 08:22 Dose: 40 mg Documented by: [id number] Potassium Chloride (Potassium Chloride Crtab 20 Meq Tabcr) 20 meq PO [id number] [facility] Stop: 03/16/21 08:59 Last Admin: 02/14/21 16:47 Dose: 20 meq Documented by: [id number] Admin: 02/14/21 08:24 Dose: 20 meq Documented by: [id number] Senna/Docusate Sodium (Docusate Sodium/Senna 50/8.6mg Tab) 2 tab PO HS [facility] Stop: 03/16/21 20:59 Last Admin: 02/14/21 20:32 Dose: 2 tab Documented by: [id number] Discontinued Medications Diphenhydramine HCl (Diphenhydramine 50 Mg/Ml Vial) 25 mg IV NOW STA Stop: 02/13/21 19:07 Last Admin: 02/13/21 19:39 Dose: 25 mg Documented by: [id number] Furosemide (Furosemide 40 Mg/4 Ml Vial) 40 mg IV ONE ONE Stop: 02/13/21 18:39 Last Admin: 02/13/21 18:47 Dose: 40 mg Documented by: [id number] Furosemide (Furosemide 40 Mg/4 Ml Vial) 40 mg IV BID [facility] Stop: 02/14/21 21:01 Last Admin: 02/14/21 20:45 Dose: 40 mg Documented by: [id number] Admin: 02/14/21 08:40 Dose: 40 mg Documented by: [id number] Sodium Chloride (Nss 1000ml) 1,000 mls @ 125 mls/hr IV .Q8H [facility] Stop: 03/15/21 17:59 Last Infusion: 02/13/21 22:14 Dose: 0 mls/hr Documented by: [id number] Admin: 02/13/21 18:47 Dose: 125 mls/hr Documented by: [id number] Diltiazem HCl 125 mg/ Dextrose 125 mls @ 7.5 mls/hr IV .[id number] ILIA[facility]; Protocol Stop: 03/15/21 18:59 Last Admin: 02/14/21 13:26 Dose: Not Given Documented by: [id number] Titration: 02/14/21 13:15 Dose: 0 mg/hr, 0 mls/hr Documented by: [id number] Cosigned by: [id number] Titration: 02/13/21 21:08 Dose: 7.5 mg/hr, 7.5 mls/hr Documented by: [id number] Cosigned by: [id number] Admin: 02/13/21 19:40 Dose: 5 mg/hr, 5 mls/hr Documented by: [id number] Cosigned by: [id number] Albumin Human (Albumin 25% 100 Ml) 25 gm in 100 mls @ 50 mls/hr IV ONE STA Stop: 02/13/21 23:41 Last Infusion: 02/14/21 01:32 Dose: 0 mls/hr Documented by: [id number] Admin: 02/13/21 22:15 Dose: 50 mls/hr Documented by: [id number] Albumin Human (Albumin 25%) 12.5 gm in 50 mls @ 50 mls/hr IV BID ILIANA Stop: 02/14/21 21:59 Last Infusion: 02/14/21 21:55 Dose: 0 mls/hr Documented by: [id number] Admin: 02/14/21 20:51 Dose: 50 mls/hr Documented by: [id number] Infusion: 02/14/21 09:44 Dose: 0 mls/hr Documented by: [id number] Admin: 02/14/21 08:41 Dose: 50 mls/hr Documented by: [id number] Ioversol (Optiray 320 125ml) 120 ml IV ONCE ONE Stop: 02/13/21 20:04 Last Admin: 02/13/21 20:09 Dose: 120 ml Documented by: [id number] Ipratropium [place] (Ipratropium [place] Neb Soln 0.02% 2.5 Ml Vial) 0.5 mg INH ONE STA Stop: 02/13/21 22:59 Last Admin: 02/13/21 23:41 Dose: 0.5 mg Documented by: [id number] Levalbuterol HCl (Levalbuterol 1.25mg/0.5ml Neb) 1.25 mg INH ONE STA Stop: 02/13/21 22:59 Last Admin: 02/13/21 23:41 Dose: 1.25 mg Documented by: [id number] Methylprednisolone (Methylprednisolone 125 Mg/2 Ml Vial) 60 mg IV NOW STA Stop: 02/13/21 19:07 Last Admin: 02/13/21 19:34 Dose: 60 mg Documented by: [id number] Metoprolol Succinate (Metoprolol Succ 50mg Ext Rel Tab) 100 mg PO NOW STA Stop: 02/13/21 22:32 Last Admin: 02/13/21 23:08 Dose: 100 mg Documented by: [id number] Metoprolol Succinate (Metoprolol Succ 50mg Ext Rel Tab) 100 mg PO BID ILIANA Stop: 03/16/21 08:59 Last Admin: 02/14/21 08:21 Dose: 100 mg Documented by: [id number] Metoprolol Tartrate (Metoprolol Tartrate 1 Mg/Ml Vial) 2.5 mg IV NOW STA Stop: 02/14/21 01:54 Last Admin: 02/14/21 02:55 Dose: 2.5 mg Documented by: [id number] Metoprolol Tartrate (Metoprolol Tartrate 1 Mg/Ml Vial) 2.5 mg IV NOW STA Stop: 02/15/21 00:22 Last Admin: 02/15/21 00:31 Dose: 2.5 mg Documented by: [id number] Miscellaneous (Stat Iv Infusion Titration Per Protocol) 1 ea N/A NOW STA Stop: 02/13/21 18:48 Last Admin: 02/13/21 19:39 Dose: 1 ea Documented by: [id number] Critical Care Time Critical Care Time: Yes Total Critical Care Time: 48 Critical care of 48 min performed to assess and manage high likelihood of life- threatening dysrhythmia, involving labs and imaging performed with assessment to evaluate dysrhythmia diagnosis with frequent reassessment. This time includes bedside time, treatment discussions with patient/family/consultants, documentation time and excludes procedure time. Medical Decision Making Differential Diagnosis Differential diagnoses includes but is not limited to pneumonia, bronchitis, COPD/Asthma exacerbation, pneumothorax, pulmonary embolism, congestive heart failure, acute coronary syndrome Medical Records Attestation: I reviewed the patient's medical records. Home Medications Current Medication List: was personally reviewed by me Laboratory Data Attestation: I reviewed the patient's lab results. Result diagrams: 02/14/21 06:45 02/14/21 06:45 Lab Results 02/13/21 02/13/21 02/13/21 Range/Units 17:01 17:01 17:01 WBC 7.02 (4.8-10.8) K/uL RBC 3.86 L (4.2-5.4) M/uL Hgb 10.2 L (12.0-16.0) g/dL Hct 35.2 L (37-47) % MCV 91.2 (80-100) fL MCH 26.4 (25-34) pg MCHC 29.0 L (32-36) g/dL RDW Std Deviation 58.5 H (36.4-46.3) fL RDW Coeff of Nicholas 17.8 H (11.5-14.5) % Plt Count 301 (130-400) K/uL MPV 9.5 (7.4-10.4) fL Immature Gran % (Auto) 0.6 % Neut % (Auto) 70.4 % Lymph % (Auto) 16.7 % Emmons % (Auto) 10.0 % Eos % (Auto) 1.9 % Baso % (Auto) 0.4 % Neut # (Auto) 4.95 (1.4-6.5) K/uL Lymph # (Auto) 1.17 L (1.2-3.4) K/uL Emmons # (Auto) 0.70 H (0.11-0.59) K/uL Eos # (Auto) 0.13 (0-0.5) K/uL Baso # (Auto) 0.03 (0-0.2) K/uL Immature Gran # (Auto) 0.04 H (0.00-0.02) K/uL APTT 28.5 (21.0-31.0) Seconds PTT Ratio 1.1 Sodium 141 (136-145) mmol/L Potassium 4.0 (3.5-5.1) mmol/L Chloride 108 H (98-107) mmol/L Carbon Dioxide 25 (21-32) mmol/L Anion Gap 8.0 (3-11) BUN 20 H (7-18) mg/dl Creatinine 1.29 H (0.6-1.2) mg/dl Est Cr Clr Drug Dosing 38.3 ml/min Est GFR ( Amer) 44.3 ml/min Est GFR (Non-Af Amer) 38.3 ml/min BUN/Creatinine Ratio 15.5 (10-20) Glucose 127 H (70-99) mg/dl Estimat Average Glucose mg/dl Hemoglobin A1c (4.5-5.6) % Calcium 9.0 (8.5-10.1) mg/dl Magnesium 2.0 (1.8-2.4) mg/dl Total Bilirubin 0.7 (0.2-1) mg/dl AST 21 (15-37) U/L ALT 61 (12-78) Alkaline Phosphatase 108 D (45-117) U/L Troponin I 0.019 (0-0.045) ng/ml NT-Pro-B Natriuret Pep 63822 H (0-1800) pg/ml Total Protein 6.8 (6.4-8.2) gm/dl Albumin 3.4 (3.4-5.0) gm/dl Globulin 3.4 (2.5-4.0) gm/dl Albumin/Globulin Ratio 1.0 (0.9-2) Lipase 115 (73-393) U/L TSH 2.000 (0.300-4.500) uIu/ml Urine Color Urine Appearance (Clear) Urine pH (4.5-7.5) Ur Specific [place] (1.000-1.030) Urine Protein (Negative) Urine Glucose (UA) (Negative) Urine Ketones (Negative) Urine Blood (Negative) Urine Nitrite (Negative) Urine Bilirubin (Negative) Urine Urobilinogen (Negative) Ur Leukocyte Esterase (Negative) Urine WBC (Auto) (0-5) /hpf Urine RBC (Auto) (0-4) /hpf U Hyaline Cast (Auto) (0-5) /lpf U Epithel Cells (Auto) (0-5) /lpf Urine Bacteria (Auto) (Negative) SARS-CoV-2, RNA, NAAT (NEGATIVE) 02/13/21 02/13/21 02/13/21 Range/Units 17:01 21:05 21:55 WBC (4.8-10.8) K/uL RBC (4.2-5.4) M/uL Hgb (12.0-16.0) g/dL Hct (37-47) % MCV (80-100) fL MCH (25-34) pg MCHC (32-36) g/dL RDW Std Deviation (36.4-46.3) fL RDW Coeff of Nicholas (11.5-14.5) % Plt Count (130-400) K/uL MPV (7.4-10.4) fL Immature Gran % (Auto) % Neut % (Auto) % Lymph % (Auto) % Emmons % (Auto) % Eos % (Auto) % Baso % (Auto) % Neut # (Auto) (1.4-6.5) K/uL Lymph # (Auto) (1.2-3.4) K/uL [place]ons # (Auto) (0.11-0.59) K/uL Eos # (Auto) (0-0.5) K/uL Baso # (Auto) (0-0.2) K/uL Immature Gran # (Auto) (0.00-0.02) K/uL APTT (21.0-31.0) Seconds PTT Ratio Sodium (136-145) mmol/L Potassium (3.5-5.1) mmol/L Chloride (98-107) mmol/L Carbon Dioxide (21-32) mmol/L Anion Gap (3-11) BUN (7-18) mg/dl Creatinine (0.6-1.2) mg/dl Est Cr Clr Drug Dosing ml/min Est GFR ( Amer) ml/min Est GFR (Non-Af Amer) ml/min BUN/Creatinine Ratio (10-20) Glucose (70-99) mg/dl Estimat Average Glucose 103 mg/dl Hemoglobin A1c 5.2 (4.5-5.6) % Calcium (8.5-10.1) mg/dl Magnesium (1.8-2.4) mg/dl Total Bilirubin (0.2-1) mg/dl AST (15-37) U/L ALT (12-78) Alkaline Phosphatase (45-117) U/L Troponin I (0-0.045) ng/ml NT-Pro-B Natriuret Pep (0-1800) pg/ml Total Protein (6.4-8.2) gm/dl Albumin (3.4-5.0) gm/dl Globulin (2.5-4.0) gm/dl Albumin/Globulin Ratio (0.9-2) Lipase (73-393) U/L TSH (0.300-4.500) uIu/ml Urine Color Yellow Urine Appearance Clear (Clear) Urine pH 5.0 (4.5-7.5) Ur Specific [place] 1.012 (1.000-1.030) Urine Protein Trace H (Negative) Urine Glucose (UA) Negative (Negative) Urine Ketones Negative (Negative) Urine Blood Negative (Negative) Urine Nitrite Negative (Negative) Urine Bilirubin Negative (Negative) Urine Urobilinogen Negative (Negative) Ur Leukocyte Esterase Negative (Negative) Urine WBC (Auto) 1-5 (0-5) /hpf Urine RBC (Auto) 0-4 (0-4) /hpf U Hyaline Cast (Auto) 1-5 (0-5) /lpf U Epithel Cells (Auto) 0-5 (0-5) /lpf Urine Bacteria (Auto) Negative (Negative) SARS-CoV-2, RNA, NAAT NEGATIVE (NEGATIVE) Imaging Data Radiologist's Impression: Chest X-Ray 02/13/21 18:00 XR chest 1V portable HISTORY: 85 years-old Female sob, a.fib acute shortness of breath with atrial fibrillation COMPARISON: Chest CT 01/22/2000, chest radiograph 05/09/2019 TECHNIQUE: Portable AP view of the chest FINDINGS: Unchanged cardiomegaly. Left subclavian pacer. Calcified plaque the thoracic aorta. Mild right hemidiaphragmatic elevation. Chronic interstitial coarsening. No pneumothorax, or overt pulmonary edema. Small right pleural effusion is suggested with right lung base densities. Degenerative changes of the shoulders and spine. IMPRESSION: 1. Cardiomegaly without pulmonary edema. 2. Small right pleural effusion with mild right lung base opacities. ACT 112: Negative or not required by law. The above report was generated using voice recognition software. It may contain grammatical, syntax or spelling errors. Electronically signed by: Jose Cody M.D. 02/13/2021 6:47 PM KUB X-Ray 02/13/21 18:00 KUB HISTORY: Acute nausea with generalized abdominal pain bloating, nausea COMPARISON: CT abdomen and pelvis 01/21/2021 FINDINGS: Partially imaged pacer leads. There is suggested endoscopy clips within the abdominal right lower quadrant. Nonobstructive bowel gas pattern. No renal calculi. No ureteral calculi. No pneumoperitoneum or pneumatosis. D egenerative changes of the spine, pelvis and hips. No fracture. IMPRESSION: 1. Nonobstructive bowel gas pattern. 2. Endoscopy clips of the abdominal right lower quadrant. ACT 112: Negative or not required by law. The above report was generated using voice recognition software. It may contain grammatical, syntax or spelling errors. Electronically signed by: Jose Cody M.D. 02/13/2021 6:44 PM Chest CTA 02/13/21 19:06 CT angio chest PE protocol CT DOSE: 396.36 mGy.cm HISTORY: 85 years-old Female with PE. Acute shortness of breath with atrial fibrillation. History of colon cancer. TECHNIQUE: Multiple CTA images of the chest were obtained after the intravenous administration of 120 ml Optiray. Coronal and sagittal MIPS were obtained from the axial data set and were submitted for review. All measurements were obtained according to NASCET criteria. A dose lowering technique was utilized adhering to the principles of ALARA. COMPARISON: Chest radiograph of same day, CT chest 01/21/2021 FINDINGS: CTA: Moderate cardiomegaly. The left heart structures are not well opacified and therefore difficult to evaluate. Trace pericardial effusion. Moderate coronary a rtery calcifications. Atherosclerosis of the thoracic aorta without aneurysm. The segment on subsegmental pulmonary arterial branches the level of the lung bases are not well opacified and therefore difficult to evaluate. No pulmonary emboli identified. CT CHEST: Heterogeneity of the thyroid. There are several mildly enlarged mediastinal and hilar lymph nodes measuring up to 10-11 mm which have mildly increased in size from prior. 11 mm paratracheal lymph node on image 199 previously measured 9 mm. Trace left and small right pleural effusions. Intralobular septal thickening with bronchial wall thickening. Mild bibasilar groundglass densities. There are a few ill-defined subtle groundglass nodules of the bilateral lungs measuring up to 4 mm which appear stable from prior. Central airways are patent. No acute process of the imaged upper abdomen. Mild nonspecific distal esophageal wall thickening. Unremarkable soft tissues. Degenerative changes of the shoulders and spine. Chondrocalcinosis with debris of the glenohumeral joints. Numerous healed chronic left-sided rib fractures. IMPRESSION: 1. Cardiomegaly with pulmonary edema, trace left and small right pleural effusions. 2. Mild nonspecific mediastinal and hilar adenopathy, slightly progressed from 01/21/2021. 3. No pulmonary emboli identified. 4. Subtle tiny groundglass nodules of the bilateral lungs measuring up to 4 mm redemonstrated, likely infectious or inflammatory. ACT 112: Negative or not required by law. The above report was generated using voice recognition software. It may contain grammatical, syntax or spelling errors. Electronically signed by: Jose Cody M.D. 02/13/2021 8:36 PM ECG Data Attestation: I personally reviewed and interpreted this ECG as follows: Indication: + SOB/dyspnea Rate (beats per minute): 119 Rhythm: + atrial fibrillation ECG [place]: + Normal ECG ST segments: + ST depression and + T-wave inversions ECG Findings: + PVCs MDM Narrative This is an 85-year-old female with significant past medical history who presents due to concern for 2 weeks of shortness of breath and suspected recurrent atrial fibrillation. Patient states she has had this previously although it had resolved. She uses a baby aspirin and not any additional anticoagulation due to risk of bleeding as described in the EMR upon review. Patient with recent new diagnosis of colon cancer, and has not yet started treatment. Patient did follow-up with her restoration silversmith as an outpatient and her metoprolol was increased however it did not improve her symptoms at all. Patient denies any other medication changes. Patient found to be in A. fib here with a variable rate as high as the 120s. Patient's labs drawn and sent, initial chest x-ray performed and after a prep patient was sent for CT angiography. Small pleural effusions were noted, no evidence of PE or aniket CHF. Patient did have a markedly elevated BNP, I suspect this is secondary to pleural effusions with patient also at risk for evolving pulmonary edema and CHF due to the ongoing atrial fibrillation. I did discuss with her risk of stroke and persistent A. fib. Patient's risk is lower with taking the aspirin. Patient's blood pressure stable throughout. I suspect ST and T wave changes noted on EKG are likely related to tachycardia and increased demand. She was started on a Cardizem drip and did show improvement with heart rate decreasing into the 90s. Patient still symptomatic with any exertion. Case discussed with hospitalist for additional evaluation and management. An order was placed for continuous cardiac monitoring. The monitor shows a rate of _112_ with _atrial fibrillation_ rhythm. Impression & Plan Acute dyspnea, Pacemaker, Paroxysmal atrial fibrillation with rapid ventricular response, Pleural effusion, Anemia, Elevated brain natriuretic peptide (BNP) level Discharge Plan Visit Data Chief Complaint: Shortness of Breath/Dyspnea Stated Complaint: DR REFR'D, ATRIL FIB, RETAINING FLUID, SOB ED Provider: Miley Desai Discharge Problem: Acute dyspnea, Pacemaker, Paroxysmal atrial fibrillation with rapid ventricular response, Pleural effusion, Anemia, Elevated brain natriuretic peptide (BNP) level Patient Disposition: Admitted As Inpatient Discharge Instructions Interventions: ED Discharge Assessment Last Done: 02/13/21 23:54 Discharge Problem: Anemia Qualifiers: Anemia type: unspecified type Qualified Code(s): D64.9 - Anemia, unspecified
[2021-02-13 18:17] LABS: Basophils # (auto) 0.03 K/uL (0-0.2); Basophils % (auto) 0.4 %; Eosinophils # (auto) 0.13 K/uL (0-0.5); Eosinophils % (auto) 1.9 %; Hematocrit (blood only) 35.2 % (37-47); Hemoglobin 10.2 g/dL (12.0-16.0); Immature Granulocytes # (auto) 0.04 K/uL (0.00-0.02); Immature Granulocytes % (auto) 0.6 %; Lymphocytes # (auto) 1.17 K/uL (1.2-3.4); Lymphocytes % (auto) 16.7 %; Mean Corpuscular Hemoglobin 26.4 pg (25-34); Mean Corpuscular Volume 91.2 fL (80-100); Mean Platelet Volume 9.5 fL (7.4-10.4); Neutrophils # (auto) 4.95 K/uL (1.4-6.5); Neutrophils % (auto) 70.4 %; Platelet Count 301 K/uL (130-400); RDW Coefficient of Variation 17.8 % (11.5-14.5); RDW Standard Deviation 58.5 fL (36.4-46.3); Red Blood Count 3.86 M/uL (4.2-5.4); White Blood Count 7.02 K/uL (4.8-10.8)
[2021-02-13 18:25] LABS: Albumin Level 3.4 gm/dl (3.4-5.0); BUN Creatinine Ratio 15.5 (10-20); Creatinine Clr Calc Pharmacy 38.3 ml/min; Est GFR (African American) 44.3 ml/min; Est GFR (Non-African American) 38.3 ml/min
[2021-02-13 18:35] LABS: Bilirubin,Total 0.7 mg/dl (0.2-1); Globulin 3.4 gm/dl (2.5-4.0); Total Protein 6.8 gm/dl (6.4-8.2); Troponin I 0.019 ng/ml (0-0.045)
[2021-02-13] MEDS ORDERED: FUROSEMIDE 40 MG/4 ML VIAL IV ONE (18:38)
--- NOTE | 2021-02-13 18:45 | XRay Report ---
KUB HISTORY: Acute nausea with generalized abdominal pain bloating, nausea COMPARISON: CT abdomen and pelvis 01/21/2021 FINDINGS: Partially imaged pacer leads. There is suggested endoscopy clips within the abdominal right lower quadrant. Nonobstructive bowel gas pattern. No renal calculi. No ureteral calculi. No pneumop eritoneum or pneumatosis. Degenerative changes of the spine, pelvis and hips. No fracture. IMPRESSION: 1. Nonobstructive bowel gas pattern. 2. Endoscopy clips of the abdominal right lower quadrant. ACT 112: Negative or not required by law. The above report was generated using voice recognition software. It may contain grammatical, syntax o r spelling errors. Electronically signed by: Jose Cody M.D. 02/13/2021 6:44 PM
[2021-02-13] MEDS ORDERED: STAT IV Infusion **Titration per Protocol STA (18:47)
--- NOTE | 2021-02-13 18:48 | XRay Report ---
XR chest 1V portable HISTORY: 85 years-old Female sob, a.fib acute shortness of breath with atrial fibrillation COMPARISON: Chest CT 01/22/2000, chest radiograph 05/09/2019 TECHNIQUE: Portable AP view of the chest FINDINGS: Unchanged cardiomegaly. Left subclavian pacer. Calcified plaque the thoracic aorta. Mild right hemidi aphragmatic elevation. Chronic interstitial coarsening. No pneumothorax, or overt pulmonary edema. Sm all right pleural effusion is suggested with right lung base densities. Degenerative changes of the s houlders and spine. IMPRESSION: 1. Cardiomegaly without pulmonary edema. 2. Small right pleural effusion with mild right lung base opacities. ACT 112: Negative or not required by law. The above report was generated using voice recognition software. It may contain grammatical, syntax o r spelling errors. Electronically signed by: Jose Cody M.D. 02/13/2021 6:47 PM
[2021-02-13] MEDS ORDERED: methylPREDNISolone 125 MG/2 ML VIAL IV STA (19:06)
[2021-02-13] MEDS ORDERED: diphenhydrAMINE 50 MG/ML VIAL IV STA (19:06)
[2021-02-13] MEDS: dilTIAZem HCL 125 MG in DEXTROSE 5% 100 ML IV SCH (19:40)
[2021-02-13] MEDS ORDERED: OPTIRAY 320 125ml IV ONE (20:03)
--- NOTE | 2021-02-13 20:38 | CT Scan Report ---
CT angio chest PE protocol CT DOSE: 396.36 mGy.cm HISTORY: 85 years-old Female with PE. Acute shortness of breath with atrial fibrillation. History o f colon cancer. TECHNIQUE: Multiple CTA images of the chest were obtained after the intravenous administration of 120 ml Optiray. Coronal and sagittal MIPS were obtained from the axial data set and were submitted for review. All measurements were obtained according to NASCET criteria. A dose lowering technique was u tilized adhering to the principles of ALARA. COMPARISON: Chest radiograph of same day, CT chest 01/21/2021 FINDINGS: CTA: Moderate cardiomegaly. The left heart structures are not well opacified and therefore difficult to ev aluate. Trace pericardial effusion. Moderate coronary artery calcifications. Atherosclerosis of the t horacic aorta without aneurysm. The segment on subsegmental pulmonary arterial branches the level of the lung bases are not well opacified and therefore difficult to evaluate. No pulmonary emboli identi fied. CT CHEST: Heterogeneity of the thyroid. There are several mildly enlarged mediastinal and hilar lymph nodes la suring up to 10-11 mm which have mildly increased in size from prior. 11 mm paratracheal lymph node o n image 199 previously measured 9 mm. Trace left and small right pleural effusions. Intralobular sept al thickening with bronchial wall thickening. Mild bibasilar groundglass densities. There are a few i ll-defined subtle groundglass nodules of the bilateral lungs measuring up to 4 mm which appear stable from prior. Central airways are patent. No acute process of the imaged upper abdomen. Mild nonspecific distal esophageal wall thickening. Unr emarkable soft tissues. Degenerative changes of the shoulders and spine. Chondrocalcinosis with debri s of the glenohumeral joints. Numerous healed chronic left-sided rib fractures. IMPRESSION: 1. Cardiomegaly with pulmonary edema, trace left and small right pleural effusions. 2. Mild nonspecific mediastinal and hilar adenopathy, slightly progressed from 01/21/2021. 3. No pulmonary emboli identified. 4. Subtle tiny groundglass nodules of the bilateral lungs measuring up to 4 mm redemonstrated, likely infectious or inflammatory. ACT 112: Negative or not required by law. The above report was generated using voice recognition software. It may contain grammatical, syntax o r spelling errors. Electronically signed by: Jose Cody M.D. 02/13/2021 8:36 PM
[2021-02-13 21:20] LABS: Appearance Urine Clear (Clear); Bacteria Urine Automated Negative (Negative); Bilirubin Urine Negative (Negative); Blood Urine Negative (Negative); Color Urine Yellow; Epithelial Cell Urine Auto 0-5 /lpf (0-5); Glucose Urine UA Negative (Negative); Ketones Urine Negative (Negative); Leukocyte Esterase Urine Negative (Negative); Nitrite Urine Negative (Negative); Protein Urine Trace (Negative); RBC Urine Automated 0-4 /hpf (0-4); Specific Gravity Urine 1.012 (1.000-1.030); Urobilinogen Urine Negative (Negative)
[2021-02-13] MEDS ORDERED: ALBUMIN 25% 100 mL 25 GM/100 ML VIAL IV STA (21:42)
[2021-02-13 22:01] LABS: Partial Thromboplastin Ratio 1.1; Partial Thromboplastin Time 28.5 Seconds (21.0-31.0)
[2021-02-13] MEDS ORDERED: METOPROLOL SUCC 50MG EXT REL TAB PO STA (22:31)
[2021-02-13] MEDS ORDERED: XOPENEX/ATROVENT 1.25mg/0.5MG NEB COMBO NEB STA (22:57)
--- NOTE | 2021-02-13 22:57 | History & Physical Report ---
Date of Service February 13, 2021 Assessment & Plan (1) Decompensated heart failure: Plan: hx chronic systolic heart failure secondary to ischemic cardiomyopathy (EF 45 to 49%, TTE 2020) hx SSS status post PPM Likely secondary to uncontrolled recurrent A. fib rates since last month Patient not on anticoagulation secondary to history of recurrent falls/significant groin bleed requiring blood transfusions about 2 years ago at the [facility] Kidney dysfunction, possibly baseline (outpatient creatinine fluctuating between 1-1.5 this year) hx CAD sp stent valvular heart disease (moderate MR, mild TR on recent TTE) MARTI (CPAP intolerance) on home O2 via nasal cannula at night/pulmonary hypertension hypertension, BP slight elevated hyperlipidemia on statin Rx recent diagnosis of colon cancer, surgery contemplated once cardiac status optimized Hyperglycemia rule out DM chronic anemia, hemoglobin at baseline Coughing spells with swallowing rule out aspiration/esophageal dysfunction PCU Diuretic Rx Strict I/Os, daily weights, CHF education, fluid restriction for now Change metoprolol tartrate to Toprol-XL for now. Patient already on maximal daily dose of metoprolol tartrate. Attempt to wean off Cardizem drip. Cardiology consult Re: Uncontrolled A. fib, CHF Monitor renal function, hold ARB until to baseline established Swallow eval Re: Possible aspiration/esophageal dysfunction Check hemoglobin A1c DVT prophylaxis. Heparin subcu Full code Text document was generated using [employer] voice recognition software. It may contain grammatical or spelling errors. Kindly contact undersigned for clarification of any documentation item in question. History of Present Illness Chief Complaint: A. fib, shortness of breath, fluid retention Primary Care Provider: Erlinda Hutton MD History obtained from patient and records. Medical history significant for chronic systolic heart failure secondary to ischemic cardiomyopathy (EF 45 to 49%, TTE 2020), SSS status post PPM, atrial fibrillation not on anticoagulation secondary to history of recurrent falls/significant groin bleed, CAD sp stent, valvular heart disease (moderate MR, mild TR on recent TTE), MARTI (CPAP intolerance) on home O2 via nasal cannula at night, pulmonary hypertension as per records, hypertension, hyperlipidemia, recent diagnosis of colon cancer, primary hyperparathyroidism status post surgery, chronic anemia (baseline hemoglobin of 10). Last confinement January 2015 for pericarditis, CHF. 2 weeks ago, patient noted palpitations, irregular heartbeat with intermittent left-sided chest discomfort reminiscent of A. fib episodes. Patient compliant with home medications. Denies unusual stress. Some lightheadedness, exertional shortness of breath symptoms. Usual dry cough symptoms on swallowing as per patient. Patient mentioned palpitation symptoms to her general surgeon on outpatient consult last week for new diagnosis of colon adenocarcinoma. Patient found to have irregular heartbeat on exam as per note. Patient referred to PCP and cardiology for preop evaluation. No congestion on outpatient CXR requested by PCP Patient seen at [facility] cardi[place] office 4 days ago for follow-up/preop eval Pacemaker interrogation showed atrial fibrillation commencing a day after patient's bowel prep for colonoscopy last month. Provider recommended repeat TTE and increasing patient's metoprolol tartrate 200 mg twice a day and discontinuing hydralazine. Outpatient TTE showed concentric LVH, mild to me valve sclerosis, moderate mitral regurgitation. Mild TR. Mild pulmonary hypertension. Moderately abnormal diastolic dysfunction. LVEF 45 to 49%. Compared to previous echo from 2017, left atrium now severely enlarged and EF mildly reduced. Patient noted worsening symptoms the last 2 days. Patient feeling more bloated with leg swelling. Weight gain of about 10 pounds as per patient. Home nursing contacted patient's cardiology provider today who recommended increasing metoprolol tartrate to 100 mg in a.m. and 150 mg in p.m. and doubling Lasix total of 40 mg daily for 3 days. Patient consulted ER for worsening symptoms. IV Lasix given at the ER. IV Cardizem initiated at the ER for rapid A. fib. 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 ezetimibe Allergy Intermediate Muscle Verified 02/13/21 18:10 pain. ibandronate sodium Allergy Intermediate trouble Verified 02/13/21 18:10 [From Boniva] swallowing Iodinated Contrast Media Allergy Intermediate Wheezing Verified 02/13/21 18:10 simvastatin Allergy Intermediate Muscle Verified 02/13/21 18:10 pain. erythromycin base Allergy Mild Nausea Verified 02/13/21 18:10 red dye Allergy Mild RASH Verified 02/13/21 18:10 Home Medications Medication Instructions Recorded Confirmed Type acetaminophen 500 mg tablet 1,000 mg PO BID 01/13/21 02/13/21 History ascorbic acid (vitamin C) 1,000 mg 1 g PO QAM 01/13/21 02/13/21 History tablet (Vitamin C) aspirin 81 mg tablet,delayed 81 mg PO QAM 01/13/21 02/13/21 History release (Aspirin Low Dose) atorvastatin 40 mg tablet 40 mg PO HS 01/13/21 02/13/21 History calcitriol 1 mcg/mL oral solution 1 mcg PO 3XWK 01/13/21 02/13/21 History cyanocobalamin (vitamin B-12) 1,000 mcg PO 3XWK 01/13/21 02/13/21 History 1,000 mcg tablet (Vitamin B-12) denosumab 60 mg/mL subcutaneous 60 mg SUBCUT UD 01/13/21 02/13/21 History syringe (Prolia) duloxetine 20 mg capsule,delayed 20 mg PO QAM 01/13/21 02/13/21 History release furosemide 20 mg tablet 40 mg PO QAM 01/13/21 02/13/21 History latanoprost (PF) 0.005 % eye drops 1 drp OPHTHALMIC (EYE) PM 01/13/21 02/13/21 History lorazepam 0.5 mg tablet 0.5 mg PO DAILY PRN 01/13/21 02/13/21 History losartan 100 mg tablet 100 mg PO QAM 01/13/21 02/13/21 History omeprazole 20 mg tablet,delayed 20 mg PO QAM 01/13/21 02/13/21 History release sennosides 8.6 mg-docusate sodium 2 tab-cap PO HS 01/13/21 02/13/21 History 50 mg capsule zinc 50 mg tablet 50 mg PO QAM 01/13/21 02/13/21 History ferrous fumarate-vitamin C 132 1 tab PO DAILY@12 02/13/21 02/13/21 History mg-250 mg tablet metoprolol tartrate 100 mg tablet 100 mg PO QAM 02/13/21 02/13/21 History metoprolol tartrate 50 mg tablet 150 mg PO HS 02/13/21 02/13/21 History Past Med/Surg History Medical History Ambulates with cane Anemia Cardiac murmur Chronic kidney disease (CKD), stage III (moderate) Depression GERD (gastroesophageal reflux disease) Glaucoma History of COVID-19 diagnosed 02/2020 @ [facility]--fever, headache, cough, loss of taste/smell--no issues now Myocardial Infarction (~2005) follows with Poli Zepeda PA-C @ [facility] On home oxygen therapy 2 L n/c at hs only Osteoarthritis Pacemaker (~2011) meditronic Sleep apnea 2L N/C at hs Thyroid nodule Surgical History History of arthroscopy of left knee History of bilateral cataract extraction History of cardiac cath 2005 with 1 stent placed @ [facility] History of colonoscopy History of dilatation and curettage History of facial surgery metal plate under left eye/left cheek History of parathyroidectomy partial @ [facility] History of partial hysterectomy History of permanent cardiac pacemaker placement meditronic History of tooth extraction all teeth S/P excision of lipoma Family History Other No family history of adverse response to anesthesia Social History Smoking Status: Never smoker Second Hand Exposure: No; Hx Alcohol Use: Yes Alcohol type: wine Hx Substance Use: No Preferred Language: Bulgarian Communication Ability: Effective Embryology Teacher Required: No Beliefs That Will Affect Care: None Current Living Situation: Alone Feels Safe at Home: Yes Safety Concerns: Feels Safe At This Time Assistive Devices: Walker Review of Systems Review of Systems: As per HPI, all 10 systems reviewed, all other ROS negative Physical Exam Physical Exam: GENERAL: Comfortable, pleasant, obese, looks younger for stated age, no respiratory distress SKIN: Pallor, warm HEENT: Pale palpebral conjunctivae, no ptosis, moist buccal mucosa NECK : Supple, no tenderness CHEST : Decreased breath sounds, occasional expiratory wheezes, no tenderness HEART : Irregular, systolic murmur heard over left sternal border , ABDOMEN: Some distention, nontender EXTREMITIES : Bilateral LE swelling, no LE tenderness, no other conspicuous deformities noted NEUROLOGIC : Coherent, no facial asymmetry, no other gross focality Results & Data Results & Data ([facility]) Vital Signs (Past 12 Hours) Vital Signs Temp Pulse Pulse Resp BP BP Pulse Ox 02/13/21 22:00 102 H 17 146/100 H 02/13/21 21:30 95 H 24 165/103 H 02/13/21 21:00 96 H 18 157/121 H 02/13/21 20:30 100 H 24 162/108 H 02/13/21 20:13 100 H 16 167/115 H 95 02/13/21 19:00 122 H 109 H 24 134/113 H 142/99 H 98 02/13/21 17:45 120 H 25 H 147/102 H 98 02/13/21 16:49 36.4 C L 122 H 20 148/91 H 90 Laboratory Results Laboratory Results WBC 7.02 K/uL (4.8-10.8) 02/13/21 17:01 RBC 3.86 M/uL (4.2-5.4) L 02/13/21 17:01 Hgb 10.2 g/dL (12.0-16.0) L 02/13/21 17:01 Hct 35.2 % (37-47) L 02/13/21 17:01 MCV 91.2 fL (80-100) 02/13/21 17:01 MCH 26.4 pg (25-34) 02/13/21 17:01 MCHC 29.0 g/dL (32-36) L 02/13/21 17:01 RDW Std Deviation 58.5 fL (36.4-46.3) H 02/13/21 17:01 RDW Coeff of Nicholas 17.8 % (11.5-14.5) H 02/13/21 17:01 Plt Count 301 K/uL (130-400) 02/13/21 17:01 MPV 9.5 fL (7.4-10.4) 02/13/21 17:01 Immature Gran % (Auto) 0.6 % 02/13/21 17:01 Neut % (Auto) 70.4 % 02/13/21 17:01 Lymph % (Auto) 16.7 % 02/13/21 17:01 [place] % (Auto) 10.0 % 02/13/21 17:01 Eos % (Auto) 1.9 % 02/13/21 17:01 Baso % (Auto) 0.4 % 02/13/21 17:01 Neut # (Auto) 4.95 K/uL (1.4-6.5) 02/13/21 17: Lymph # (Auto) 1.17 K/uL (1.2-3.4) L 02/13/21 17:01 [place] # (Auto) 0.70 K/uL (0.11-0.59) H 02/13/21 17: Eos # (Auto) 0.13 K/uL (0-0.5) 02/13/21 17:01 Baso # (Auto) 0.03 K/uL (0-0.2) 02/13/21 17: Immature Gran # (Auto) 0.04 K/uL (0.00-0.02) H 02/13/21 17:01 APTT 28.5 Seconds (21.0-31.0) 02/13/21 17: PTT Ratio 1.1 02/13/21 17: Sodium 141 mmol/L (136-145) 02/13/21 17: Potassium 4.0 mmol/L (3.5-5.1) 02/13/21 17: Chloride 108 mmol/L (98-107) H 02/13/21 17:01 Carbon Dioxide 25 mmol/L (21-32) 02/13/21 17:01 Anion Gap 8.0 (3-11) 02/13/21 17: BUN 20 mg/dl (7-18) H 02/13/21 17: Creatinine 1.29 mg/dl (0.6-1.2) H 02/13/21 17: Est Cr Clr Drug Dosing 38.3 ml/min 02/13/21 17: Est GFR ( Amer) 44.3 ml/min 02/13/21 17: Est GFR (Non-Af Amer) 38.3 ml/min 02/13/21 17: BUN/Creatinine Ratio 15.5 (10-20) 02/13/21 17: Glucose 127 mg/dl (70-99) H 02/13/21 17: Calcium 9.0 mg/dl (8.5-10.1) 02/13/21 17: Magnesium 2.0 mg/dl (1.8-2.4) 02/13/21 17:01 Total Bilirubin 0.7 mg/dl (0.2-1) 02/13/21 17:01 AST 21 U/L (15-37) 02/13/21 17: ALT 61 (12-78) 02/13/21 17:01 Alkaline Phosphatase 108 U/L (45-117) D 02/13/21 17: Troponin I 0.019 ng/ml (0-0.045) 02/13/21 17: NT-Pro-B Natriuret Pep 33898 pg/ml (0-1800) H 02/13/21 17:01 Total Protein 6.8 gm/dl (6.4-8.2) 02/13/21 17: Albumin 3.4 gm/dl (3.4-5.0) 02/13/21 17: Globulin 3.4 gm/dl (2.5-4.0) 02/13/21 17: Albumin/Globulin Ratio 1.0 (0.9-2) 02/13/21 17: Lipase 115 U/L (73-393) 02/13/21 17: TSH 2.000 uIu/ml (0.300-4.500) 02/13/21 17:01 Urine Color Yellow 02/13/21 21:05 Urine Appearance Clear (Clear) 02/13/21 21:05 Urine pH 5.0 (4.5-7.5) 02/13/21 21:05 Ur Specific Ste[place] 1.012 (1.000-1.030) 02/13/21 21:05 Urine Protein Trace (Negative) H 02/13/21 21:05 Urine Glucose (UA) Negative (Negative) 02/13/21 21:05 Urine Ketones Negative (Negative) 02/13/21 21:05 Urine Blood Negative (Negative) 02/13/21 21:05 Urine Nitrite Negative (Negative) 02/13/21 21: Urine Bilirubin Negative (Negative) 02/13/21 21:05 Urine Urobilinogen Negative (Negative) 02/13/21 21:05 Ur Leukocyte Esterase Negative (Negative) 02/13/21 21:05 Urine WBC (Auto) 1-5 /hpf (0-5) 02/13/21 21:05 Urine RBC (Auto) 0-4 /hpf (0-4) 02/13/21 21:05 U Hyaline Cast (Auto) 1-5 /lpf (0-5) 02/13/21 21:05 U Epithel Cells (Auto) 0-5 /lpf (0-5) 02/13/21 21:05 Urine Bacteria (Auto) Negative (Negative) 02/13/21 21:05 SARS-CoV-2, RNA, NAAT NEGATIVE (NEGATIVE) 02/13/21 21:55 Impressions Chest X-Ray 02/13/21 18:00 XR chest 1V portable HISTORY: 85 years-old Female sob, a.fib acute shortness of breath with atrial fibrillation COMPARISON: Chest CT 01/22/2000, chest radiograph 05/09/2019 TECHNIQUE: Portable AP view of the chest FINDINGS: Unchanged cardiomegaly. Left subclavian pacer. Calcified plaque the thoracic aorta. Mild right hemidiaphragmatic elevation. Chronic interstitial coarsening. No pneumothorax, or overt pulmonary edema. Small right pleural effusion is suggested with right lung base densities. Degenerative changes of the shoulders and spine. IMPRESSION: 1. Cardiomegaly without pulmonary edema. 2. Small right pleural effusion with mild right lung base opacities. ACT 112: Negative or not required by law. The above report was generated using voice recognition software. It may contain grammatical, syntax or spelling errors. Electronically signed by: Jose Cody M.D. 02/13/2021 6:47 PM KUB X-Ray 02/13/21 18:00 KUB HISTORY: Acute nausea with generalized abdominal pain bloating, nausea COMPARISON: CT abdomen and pelvis 01/21/2021 FINDINGS: Partially imaged pacer leads. There is suggested endoscopy clips within the abdominal right lower quadrant. Nonobstructive bowel gas pattern. No renal calculi. No ureteral calculi. No pneumoperitoneum or pneumatosis. Degenerative changes of the spine, pelvis and hips. No fracture. IMPRESSION: 1. Nonobstructive bowel gas pattern. 2. Endoscopy clips of the abdominal right lower quadrant. ACT 112: Negative or not required by law. The above report was generated using voice recognition software. It may contain grammatical, syntax or spelling errors. Electronically signed by: Jose Cody M.D. 02/13/2021 6:44 PM Chest CTA 02/13/21 19:06 CT angio chest PE protocol CT DOSE: 396.36 mGy.cm HISTORY: 85 years-old Female with PE. Acute shortness of breath with atrial fibrillation. History of colon cancer. TECHNIQUE: Multiple CTA images of the chest were obtained after the intravenous administration of 120 ml Optiray. Coronal and sagittal MIPS were obtained from the axial data set and were submitted for review. All measurements were obtain ed according to NASCET criteria. A dose lowering technique was utilized adhering to the principles of ALARA. COMPARISON: Chest radiograph of same day, CT chest 01/21/2021 FINDINGS: CTA: Moderate cardiomegaly. The left heart structures are not well opacified and therefore difficult to evaluate. Trace pericardial effusion. Moderate coronary artery calcifications. Atherosclerosis of the thoracic aorta without aneurysm. The segment on subsegmental pulmonary arterial branches the level of the lung bases are not well opacified and therefore difficult to evaluate. No pulmonary emboli identified. CT CHEST: Heterogeneity of the thyroid. There are several mildly enlarged mediastinal and hilar lymph nodes measuring up to 10-11 mm which have mildly increased in size from prior. 11 mm paratracheal lymph node on image 199 previously measured 9 mm. Trace left and small right pleural effusions. Intralobular septal thickening with bronchial wall thickening. Mild bibasilar groundglass densities. There are a few ill-defined subtle groundglass nodules of the bilateral lungs measuring up to 4 mm which appear stable from prior. Central airways are patent. No acute process of the imaged upper abdomen. Mild nonspecific distal esophageal wall thickening. Unremarkable soft tissues. Degenerative changes of the shoulders and spine. Chondrocalcinosis with debris of the glenohumeral joints. Numerous healed chronic left-sided rib fractures. IMPRESSION: 1. Cardiomegaly with pulmonary edema, trace left and small right pleural effusions. 2. Mild nonspecific mediastinal and hilar adenopathy, slightly progressed from 01/21/2021. 3. No pulmonary emboli identified. 4. Subtle tiny groundglass nodules of the bilateral lungs measuring up to 4 mm redemonstrated, likely infectious or inflammatory. ACT 112: Negative or not required by law. The above report was generated using voice recognition software. It may contain grammatical, syntax or spelling errors. Electronically signed by: Jose Cody M.D. 02/13/2021 8:36 PM Diagnostic Findings EKG as per my interpretation: Rate one twenty, A. fib, normal axis, septal infarct, ST depression anterolateral leads, T wave abnormalities inferior leads
[2021-02-13] MEDS ORDERED: LEVALBUTEROL 1.25MG/0.5ML NEB INH STA (22:58)
[2021-02-13] MEDS ORDERED: IPRATROPIUM BROMIDE NEB SOLN 0.02% 2.5 ML VIAL INH STA (22:58)
[2021-02-14] MEDS ORDERED: PROMETHAZINE HCL 12.5 MG in SODIUM CHLORIDE 0.9% 50 ML IV PRN (00:52)
[2021-02-14] MEDS: ACETAMINOPHEN 325 MG TAB PO PRN ×3 (01:50→21:38)
[2021-02-14] MEDS ORDERED: METOPROLOL TARTRATE 1 MG/ML VIAL IV STA (01:53)
[2021-02-14] MEDS: HEPARIN SOD 5,000 UNIT/0.5 ML VIAL SQ SCH ×3 (05:40→20:56)
[2021-02-14 07:22] LABS: Basophils # (auto) 0.01 K/uL (0-0.2); Basophils % (auto) 0.2 %; Hematocrit (blood only) 32.6 % (37-47); Hemoglobin 9.6 g/dL (12.0-16.0); Immature Granulocytes # (auto) 0.05 K/uL (0.00-0.02); Immature Granulocytes % (auto) 0.9 %; Lymphocytes # (auto) 0.63 K/uL (1.2-3.4); Lymphocytes % (auto) 11.9 %; Mean Corpuscular Hemoglobin 26.7 pg (25-34); Mean Corpuscular Hgb Conc 29.4 g/dL (32-36); Mean Corpuscular Volume 90.6 fL (80-100); Mean Platelet Volume 9.2 fL (7.4-10.4); Monocytes # (auto) 0.36 K/uL (0.11-0.59); Monocytes % (auto) 6.8 %; Neutrophils # (auto) 4.25 K/uL (1.4-6.5); Neutrophils % (auto) 80.2 %; Nucleated RBC # (auto) 0.02 K/uL (0-0); Nucleated RBC % (auto) 0.3 %; Platelet Count 252 K/uL (130-400); RDW Coefficient of Variation 17.8 % (11.5-14.5); RDW Standard Deviation 57.8 fL (36.4-46.3)
[2021-02-14 07:27] LABS: Estimated Average Glucose 103 mg/dl; Hemoglobin A1C 5.2 % (4.5-5.6)
[2021-02-14 07:48] LABS: BUN Creatinine Ratio 18.5 (10-20); Calcium 8.5 mg/dl (8.5-10.1); Creatinine Clr Calc Pharmacy 45.3 ml/min; Est GFR (African American) 52.6 ml/min; Est GFR (Non-African American) 45.4 ml/min; Potassium 3.9 mmol/L (3.5-5.1)
[2021-02-14] MEDS: ASPIRIN 81 MG ECTAB PO SCH (08:21)
[2021-02-14] MEDS: DULoxetine HCL 20 MG CAP PO SCH (08:21)
[2021-02-14] MEDS: PANTOprazole 40 MG TAB PO SCH (08:22)
[2021-02-14] MEDS: POTASSIUM CHLORIDE CRTAB 20 MEQ TABCR PO SCH ×2 (08:24→16:47)
[2021-02-14] MEDS: FUROSEMIDE 40 MG/4 ML VIAL IV SCH ×2 (08:40→20:45)
[2021-02-14] MEDS: ALBUMIN 25% 12.5 GM/50 ML VIAL IV SCH ×2 (08:41→20:51)
[2021-02-14] MEDS ORDERED: METOPROLOL SUCC 50MG EXT REL TAB PO SCH (09:00)
[2021-02-14] MEDS ORDERED: FERROUS FUMARATE PO SCH (12:00)
[2021-02-14] MEDS ORDERED: [UNRECOGNIZED DRUG - OTHER] PO SCH (12:00)
--- NOTE | 2021-02-14 13:04 | Cardiology Consultation ---
Date of Consultation February 14, 2021 Assessment & Plan (1) Paroxysmal atrial fibrillation with rapid ventricular response: (2) Decompensated heart failure: (3) Sleep apnea: (4) Colon carcinoma: (5) Chronic ischemic heart disease: (6) Pacemaker: Patient is a 85-year-old female with complex history which includes chronic stable ischemic heart disease, paroxysmal atrial fibrillation with tachybradycardia syndrome status post dual-chamber pacemaker insertion. Contraindications to anticoagulation secondary to falls and spontaneous thigh hematoma as bleeding complications. Patient presents now having lapsed into atrial fibrillation approximately 1 month ago but difficult to control heart rates. She is manifested mild congestive heart failure is combination of this event Echocardiogram demonstrates marked left atrial enlargement suggesting unlikelihood that patient will return to sinus rhythm and management would be difficult given contraindications to anticoagulation including recently diagnosed ulcerated colon carcinoma Plan: Increase medical therapies for rate control. Agree with change from metoprolol tartrate to metoprolol succinate and will increase to 125 mg p.o. twice per day blood pressure appears to allow and pacemaker in place Treat congestive heart failure symptoms as ordered 2 doses of IV furosemide and reassess. Follow renal function closely as patient received contrast this admission Ultimate goal stabilization to allow patient to proceed with needed bowel surgery Cardiology will continue to follow this admission History of Present Illness Attending Physician: Jeffrey Adan MD History of Present Illness Patient is an 85-year-old female with complex history which includes per outpatient records 1. Tachy-kraig syndrome, status post permanent pacemaker 04/11/2017, Medtronic Model: A2DR01 2. Paroxysmal atrial fibrillation, a. [id number] score of 6 (age 4, female, hypertension, CHF CAD), not on anticoagulation due to frequent falls 09/2019. b. Hospitalized for RLE spontaneous thigh hematoma September 2019 and required 3 units of PRBCs 3. Chronic stable ischemic heart disease, status post PCI to the LAD in 2004 4. Diastolic CHF, NYHA class 3 5. Mitral regurgitation 6. Mild to moderate sleep apnea and hypoxemia, unable to tolerate CPAP. a. On supplemental oxygen at 2 liters/minute q.h.s. 7. Chronic venous insufficiency with room mode vein stripping with recurrent phlebitis/thrombophlebitis/cellulitis 8. Hyperparathyroidism 9. Hypertension 10. Dyslipidemia, LDL goal below 70 11. CKD stage 3 12. GERD 13. Cervical disc disease 14. Anxiety 15. Colon carcinoma diagnosis 01/15/2021, large ulcerated mass ileocecal ,surgery pending Patient presents this admission noting having lapsed into atrial fibrillation symptomatically and by pacemaker interrogations approximately 1 month ago. Rates have been difficult to control. She presents now with worsening shortness of breath weight gain and abdominal girth increase. No chest pains. Patient aware of tachypalpitations following GI bowel prep middle of December. Findings confirmed by pacemaker interrogation. She notes no neurologic complaints. Notes no headache or visual changes. Notes no fevers or chills or unexplained infections. Patient anticipating colon resection for ileocecal mass with iron deficiency anemia resulting in diagnosis Allergies Allergy/AdvReac Type Severity Reaction Status Date / Time alendronate sodium Allergy Intermediate Wheezing, Verified 02/13/21 18:10 shortness of breath. ezetimibe Allergy Intermediate Muscle Verified 02/13/21 18:10 pain. ibandronate sodium Allergy Intermediate trouble Verified 02/13/21 18:10 [From Boniva] swallowing Iodinated Contrast Media Allergy Intermediate Wheezing Verified 02/13/21 18:10 simvastatin Allergy Intermediate Muscle Verified 02/13/21 18:10 pain. erythromycin base Allergy Mild Nausea Verified 02/13/21 18:10 red dye Allergy Mild RASH Verified 02/13/21 18:10 Home Medications Medication Instructions Recorded Confirmed Type acetaminophen 500 mg tablet 1,000 mg PO BID 01/13/21 02/13/21 History ascorbic acid (vitamin C) 1,000 mg 1 g PO QAM 01/13/21 02/13/21 History tablet (Vitamin C) aspirin 81 mg tablet,delayed 81 mg PO QAM 01/13/21 02/13/21 History release (Aspirin Low Dose) atorvastatin 40 mg tablet 40 mg PO HS 01/13/21 02/13/21 History calcitriol 1 mcg/mL oral solution 1 mcg PO 3XWK 01/13/21 02/13/21 History cyanocobalamin (vitamin B-12) 1,000 mcg PO 3XWK 01/13/21 02/13/21 History 1,000 mcg tablet (Vitamin B-12) denosumab 60 mg/mL subcutaneous 60 mg SUBCUT UD 01/13/21 02/13/21 History syringe (Prolia) duloxetine 20 mg capsule,delayed 20 mg PO QAM 01/13/21 02/13/21 History release furosemide 20 mg tablet 40 mg PO QAM 01/13/21 02/13/21 History latanoprost (PF) 0.005 % eye drops 1 drp OPHTHALMIC (EYE) PM 01/13/21 02/13/21 History lorazepam 0.5 mg tablet 0.5 mg PO DAILY PRN 01/13/21 02/13/21 History losartan 100 mg tablet 100 mg PO QAM 01/13/21 02/13/21 History omeprazole 20 mg tablet,delayed 20 mg PO QAM 01/13/21 02/13/21 History release sennosides 8.6 mg-docusate sodium 2 tab-cap PO HS 01/13/21 02/13/21 History 50 mg capsule zinc 50 mg tablet 50 mg PO QAM 01/13/21 02/13/21 History ferrous fumarate-vitamin C 132 1 tab PO DAILY@12 02/13/21 02/13/21 History mg-250 mg tablet metoprolol tartrate 100 mg tablet 100 mg PO QAM 02/13/21 02/13/21 History metoprolol tartrate 50 mg tablet 150 mg PO HS 02/13/21 02/13/21 History Patient History Medical History (Updated 02/14/21 @ 13:38 by Al Westbrook MD) Ambulates with cane Anemia Cardiac murmur Chronic kidney disease (CKD), stage III (moderate) Depression GERD (gastroesophageal reflux disease) Glaucoma History of COVID-19 diagnosed 02/2020 @ [facility]--fever, headache, cough, loss of taste/smell--no issues now Myocardial Infarction (~2005) follows with Poli Zepeda PA-C @ [facility] On home oxygen therapy 2 L n/c at hs only Osteoarthritis Pacemaker (~2011) Medtronic Model: A2DR01 04/11/2017 Dual-chamber Sleep apnea 2L N/C at hs Thyroid nodule Surgical History History of arthroscopy of left knee History of bilateral cataract extraction History of cardiac cath 2005 with 1 stent placed @ [facility] History of colonoscopy History of dilatation and curettage History of facial surgery metal plate under left eye/left cheek History of parathyroidectomy partial @ [facility] History of partial hysterectomy History of permanent cardiac pacemaker placement meditronic History of tooth extraction all teeth S/P excision of lipoma Family History Other No family history of adverse response to anesthesia Social History Smoking Status: Never smoker Second Hand Exposure: No; Hx Alcohol Use: Yes Alcohol type: wine Hx Substance Use: No Preferred Language: Guatemalan Communication Ability: Effective 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: No Beliefs That Will Affect Care: None Current Living Situation: Alone Feels Safe at Home: Yes Safety Concerns: Feels Safe At This Time Assistive Devices: Walker Review of Systems Review of Systems: All systems reviewed & are unremarkable except as noted in HPI & below Physical Exam Constitutional: + ill appearing; no acute distress Eyes: PERRL, conjunctivae normal, anicteric sclerae ENMT: external ear and nose normal, oropharynx normal Neck: trachea midline, no thyromegaly Respiratory: normal respiratory effort, lungs clear to auscultation Cardiovascular: Rate/Rhythm: + irregularly irregular Heart Sounds: normal S1 and normal S2; no gallop and no murmur Palpation: normal PMI Vessels: normal carotid upstroke and radial pulses present; no JVD and no carotid bruit Extremities: + edema (Mild pedal) Chest (Breasts): Chest: + pacemaker Gastrointestinal (Abdomen): normal bowel sounds, soft, nontender, no hepatosplenomegaly Inspection/Auscultation: + abdomen distended Musculoskeletal: no cyanosis or clubbing, extremities motor strength 5/5 Skin: no rashes, warm and dry Neurologic: PERRL, EOMI, accommodation nl, no face palsy, no dysarthria Psychiatric: A+Ox3, euthymic affect Results & Data ([facility]) Vital Signs (Past 12 Hours) Vital Signs Temp Pulse Pulse Resp BP BP Pulse Ox 02/14/21 08:17 36.8 C 73 20 129/64 139 H 02/14/21 07:57 93 H 02/14/21 03:24 36.4 C L 91 H 20 137/88 96 02/14/21 02:55 109 H 155/102 H 02/14/21 01:19 98 H Laboratory Results Laboratory Results - last 24 hr 02/13/21 02/13/21 02/13/21 17:01 17:01 17:01 WBC 7.02 RBC 3.86 L Hgb 10.2 L Hct 35.2 L MCV 91.2 MCH 26.4 MCHC 29.0 L RDW Std Deviation 58.5 H RDW Coeff of Nicholas 17.8 H Plt Count 301 MPV 9.5 Immature Gran % (Auto) 0.6 Neut % (Auto) 70.4 Lymph % (Auto) 16.7 [place] % (Auto) 10.0 Eos % (Auto) 1.9 Baso % (Auto) 0.4 Neut # (Auto) 4.95 Lymph # (Auto) 1.17 L [place] # (Auto) 0.70 H Eos # (Auto) 0.13 Baso # (Auto) 0.03 Immature Gran # (Auto) 0.04 H Absolute Nucleated RBC Nucleated RBC % (auto) APTT 28.5 PTT Ratio 1.1 Sodium 141 Potassium 4.0 Chloride 108 H Carbon Dioxide 25 Anion Gap 8.0 BUN 20 H Creatinine 1.29 H Est Cr Clr Drug Dosing 38.3 Est GFR ( Amer) 44.3 Est GFR (Non-Af Amer) 38.3 BUN/Creatinine Ratio 15.5 Glucose 127 H Estimat Average Glucose Hemoglobin A1c Calcium 9.0 Magnesium 2.0 Total Bilirubin 0.7 AST 21 ALT 61 Alkaline Phosphatase 108 D Troponin I 0.019 NT-Pro-B Natriuret Pep 92285 H Total Protein 6.8 Albumin 3.4 Globulin 3.4 Albumin/Globulin Ratio 1.0 Lipase 115 TSH 2.000 Urine Color Urine Appearance Urine pH Ur Specific Cameron Urine Protein Urine Glucose (UA) Urine Ketones Urine Blood Urine Nitrite Urine Bilirubin Urine Urobilinogen Ur Leukocyte Esterase Urine WBC (Auto) Urine RBC (Auto) U Hyaline Cast (Auto) U Epithel Cells (Auto) Urine Bacteria (Auto) SARS-CoV-2, RNA, NAAT 02/13/21 02/13/21 02/13/21 17:01 21:05 21:55 WBC RBC Hgb Hct MCV MCH MCHC RDW Std Deviation RDW Coeff of Nicholas Plt Count MPV Immature Gran % (Auto) Neut % (Auto) Lymph % (Auto) [place] % (Auto) Eos % (Auto) Baso % (Auto) Neut # (Auto) Lymph # (Auto) [place] # (Auto) Eos # (Auto) Baso # (Auto) Immature Gran # (Auto) Absolute Nucleated RBC Nucleated RBC % (auto) APTT PTT Ratio Sodium Potassium Chloride Carbon Dioxide Anion Gap BUN Creatinine Est Cr Clr Drug Dosing Est GFR ( Amer) Est GFR (Non-Af Amer) BUN/Creatinine Ratio Glucose Estimat Average Glucose 103 Hemoglobin A1c 5.2 Calcium Magnesium Total Bilirubin AST ALT Alkaline Phosphatase Troponin I NT-Pro-B Natriuret Pep Total Protein Albumin Globulin Albumin/Globulin Ratio Lipase TSH Urine Color Yellow Urine Appearance Clear Urine pH 5.0 Ur Specific Cameron 1.012 Urine Protein Trace H Urine Glucose (UA) Negative Urine Ketones Negative Urine Blood Negative Urine Nitrite Negative Urine Bilirubin Negative Urine Urobilinogen Negative Ur Leukocyte Esterase Negative Urine WBC (Auto) 1-5 Urine RBC (Auto) 0-4 U Hyaline Cast (Auto) 1-5 U Epithel Cells (Auto) 0-5 Urine Bacteria (Auto) Negative SARS-CoV-2, RNA, NAAT NEGATIVE 02/14/21 02/14/21 06:45 06:45 WBC 5.30 RBC 3.60 L Hgb 9.6 L Hct 32.6 L MCV 90.6 MCH 26.7 MCHC 29.4 L RDW Std Deviation 57.8 H RDW Coeff of Nicholas 17.8 H Plt Count 252 MPV 9.2 Immature Gran % (Auto) 0.9 Neut % (Auto) 80.2 Lymph % (Auto) 11.9 [place] % (Auto) 6.8 Eos % (Auto) 0.0 Baso % (Auto) 0.2 Neut # (Auto) 4.25 Lymph # (Auto) 0.63 L [place] # (Auto) 0.36 Eos # (Auto) 0.00 Baso # (Auto) 0.01 Immature Gran # (Auto) 0.05 H Absolute Nucleated RBC 0.02 H Nucleated RBC % (auto) 0.3 APTT PTT Ratio Sodium 140 Potassium 3.9 Chloride 108 H Carbon Dioxide 25 Anion Gap 8.0 BUN 21 H Creatinine 1.12 Est Cr Clr Drug Dosing 45.3 Est GFR ( Amer) 52.6 Est GFR (Non-Af Amer) 45.4 BUN/Creatinine Ratio 18.5 Glucose 146 H Estimat Average Glucose Hemoglobin A1c Calcium 8.5 Magnesium Total Bilirubin AST ALT Alkaline Phosphatase Troponin I NT-Pro-B Natriuret Pep Total Protein Albumin Globulin Albumin/Globulin Ratio Lipase TSH Urine Color Urine Appearance Urine pH Ur Specific Cameron Urine Protein Urine Glucose (UA) Urine Ketones Urine Blood Urine Nitrite Urine Bilirubin Urine Urobilinogen Ur Leukocyte Esterase Urine WBC (Auto) Urine RBC (Auto) U Hyaline Cast (Auto) U Epithel Cells (Auto) Urine Bacteria (Auto) SARS-CoV-2, RNA, NAAT Diagnostic Findings Echocardiogram 02/10/2021 [facility] The left ventricular cavity size is normal. The LV wall thickness is moderately increased (concentric). The basal septum is thickened and angulated consistent with sigmoid septum. The left ventricular wall motion is normal. Mild aortic valve sclerosis is present. Moderate 3+ mitral regurgitation is present. Mild tricuspid regurgitation is present. Mild pulmonary hypertension is present. The left ventricular diastolic function is moderately abnormal (grade II). The qualitative LV ejection fraction is 45-49% (mildly reduced). Compared to previous echo 01/18/2017, the left atrium is now severly enlarged and EF is mildly reduced. Studies completed with the patient in atrial fibrillation.
[2021-02-14] MEDS: dilTIAZem HCL 125 MG in DEXTROSE 5% 100 ML IV SCH (13:26)
[2021-02-14] MEDS: LORazepam 0.5 MG TAB PO PRN (18:14)
[2021-02-14] MEDS: METOPROLOL SUCC 25MG EXT REL TAB PO SCH (20:31)
[2021-02-14] MEDS: DOCUSATE SODIUM/SENNA 50/8.6MG TAB PO SCH (20:32)
[2021-02-14] MEDS: ATORVASTATIN 40 MG TAB PO SCH (20:32)
[2021-02-14] MEDS: LATANOPROST 0.005% OP SOLN 2.5 ML BTL OP SCH (20:33)
--- NOTE | 2021-02-14 23:54 | Hospitalist Progress Note ---
Date of Service February 14, 2021 Assessment & Plan (1) Decompensated heart failure: Plan: Chronic ischemic heart disease: Present on admission with worsening SOB associated with abdominnal distention and swelling CXR showed cardiomegaly without pulmonary edema. Small right pleural effusion with mild right lung base opacities. CTA showed Cardiomegaly with pulmonary edema, trace left and small right pleural effusions. Mild nonspecific mediastinal and hilar adenopathy, slightly progressed from 01/21/2021. ProBNP [id number] Received Lasix IV on admission Currently on Lasix 40mg BID Cardiology on board Continue monitor I/O Will monitor BMP while on Lasix Paroxysmal atrial fibrillation with rapid ventricular response: Pacemaker: EKG on admission showed Afib with rate 119 will be difficult it will be difficult to convert back to sinus rhythm Metoprolol titrate changed to metoprolol succinate that increased to 125 mg twice daily Unable to cardiovert since patient will need to be on anticoagulant after the cardioversion Contraindications to anticoagulation secondary to falls and spontaneous thigh hematoma as bleeding complications. CKD stage 3 Creatinine stable @ 1.3 Monitor BMP while on Lasix in the settong of recent contrast from the CTA HTN BP fluctuated Continue metoprolol 125 twice daily MARTI (CPAP intolerance) on home O2 via nasal cannula at night Colon cancer Recent colonoscopy on 01/18 showed Invasive adenocarcinoma is seen within the cecal mass biopsy Pt said that she is planing to get surgery done Hyperglycemia Most recent Hba1c 5.2 Continue monitor BS DVT prophylaxis. Heparin subcu Full code Admission and Anticipated Discharge Date Admission Date: February 13, 2021 Subjective Pt was seen and examined for SOB Lying in bed with no acute distress with son at bedside Pt said that her breathing is much better She said that she feels alot better today She said that she does have SOB with activity Denies any chest pain, palpitation, dizziness, and fever. Review of Systems Review of Systems: All systems reviewed & are unremarkable except as noted in Subjective Physical Exam Physical Exam: General- No acute distress Head- atraumatic Eyes- PERRL, EOMI, ENT- oropharynx clear Neck- supple, no JVD Lungs- clear to auscultation Heart- irregular rhythm, Tachycardia Abdomen- normal bowel sounds, +distended Extremities- no calf tenderness Neuro- alert, oriented x 3; PERRL, EOMI; no facial palsy; no dysarthria Skin- warm & dry Results & Data Results & Data ([facility]) Vital Signs (Past 12 Hours) Vital Signs Temp Pulse Pulse Resp BP Pulse Ox 02/14/21 19:36 36.7 C 106 H 24 159/96 H 94 02/14/21 16:00 36.8 C 91 H 66 18 120/62 96 02/14/21 12:00 36.8 C 88 20 134/72 95
[2021-02-15] MEDS ORDERED: METOPROLOL TARTRATE 1 MG/ML VIAL IV STA (00:21)
[2021-02-15] MEDS: HEPARIN SOD 5,000 UNIT/0.5 ML VIAL SQ SCH ×3 (05:15→21:43)
[2021-02-15] MEDS: ACETAMINOPHEN 325 MG TAB PO PRN ×3 (05:19→21:43)
[2021-02-15] MEDS: PANTOprazole 40 MG TAB PO SCH (08:30)
[2021-02-15] MEDS: POTASSIUM CHLORIDE CRTAB 20 MEQ TABCR PO SCH ×2 (08:30→17:11)
[2021-02-15] MEDS: METOPROLOL SUCC 25MG EXT REL TAB PO SCH (08:30)
[2021-02-15] MEDS: DULoxetine HCL 20 MG CAP PO SCH (08:30)
[2021-02-15] MEDS: ASPIRIN 81 MG ECTAB PO SCH (08:30)
[2021-02-15] MEDS ORDERED: METOPROLOL SUCC 25MG EXT REL TAB PO ONE (09:10)
[2021-02-15] MEDS: LORazepam 0.5 MG TAB PO PRN (10:06)
[2021-02-15 11:25] LABS: BUN Creatinine Ratio 22.7 (10-20); Calcium 8.4 mg/dl (8.5-10.1); Creatinine Clr Calc Pharmacy 39.4 ml/min; Est GFR (African American) 45.6 ml/min; Est GFR (Non-African American) 39.4 ml/min
[2021-02-15 11:35] LABS: Hematocrit (blood only) 33.2 % (37-47); Hemoglobin 9.6 g/dL (12.0-16.0); Mean Corpuscular Hemoglobin 26.8 pg (25-34); Mean Corpuscular Hgb Conc 28.9 g/dL (32-36); Mean Corpuscular Volume 92.7 fL (80-100); Platelet Count 269 K/uL (130-400); RDW Coefficient of Variation 18.2 % (11.5-14.5); Red Blood Count 3.58 M/uL (4.2-5.4); White Blood Count 8.45 K/uL (4.8-10.8)
[2021-02-15] MEDS ORDERED: FUROSEMIDE 40 MG/4 ML VIAL IV ONE (13:14)
--- NOTE | 2021-02-15 13:19 | Cardiology Progress Note ---
Date of Service February 15, 2021 Assessment & Plan (1) Paroxysmal atrial fibrillation with rapid ventricular response: (2) Decompensated heart failure: (3) Sleep apnea: (4) Colon carcinoma: (5) Chronic ischemic heart disease: (6) Pacemaker: Plan: Patient is a 85-year-old female with complex history which includes chronic stable ischemic heart disease, paroxysmal atrial fibrillation with tachybradycardia syndrome status post dual-chamber pacemaker insertion. Contraindications to anticoagulation secondary to falls and spontaneous thigh hematoma as bleeding complications. Patient presents now having lapsed into atrial fibrillation approximately 1 month ago but difficult to control heart rates. She is manifested mild congestive heart failure is combination of this event Echocardiogram demonstrates marked left atrial enlargement suggesting unlikelihood that patient will return to sinus rhythm and management would be difficult given contraindications to anticoagulation including recently diagnosed ulcerated colon carcinoma Plan: Increase medical therapies for rate control. We will increase metoprolol succinate to 200 mg twice per day. Digoxin 2 doses 0.25 mg p.o. today Furosemide 40 mg IV today for further diuresis Admission and Anticipated Discharge Date Admission Date: February 13, 2021 Subjective Patient seen and examined, chart, medications, telemetry reviewed. Still feels mildly bloated and edematous. Heart rate still elevated but trending slightly lower. No chest pains or dizziness. No fevers or chills. Review of Systems Review of Systems: All systems reviewed & are unremarkable except as noted in Subjective Physical Exam Constitutional: no acute distress Eyes: PERRL, conjunctivae normal, anicteric sclerae ENMT: external ear and nose normal, oropharynx normal Neck: trachea midline, no thyromegaly Respiratory: normal respiratory effort, lungs clear to auscultation Cardiovascular: Rate/Rhythm: + tachycardic and + irregularly irregular Heart Sounds: normal S1 and normal S2; no gallop and no murmur Palpation: normal PMI Vessels: normal carotid upstroke and radial pulses present; no JVD and no carotid bruit Extremities: + edema (Mild pedal) Chest (Breasts): Chest: + pacemaker Gastrointestinal (Abdomen): normal bowel sounds, soft, nontender, no hepatosplenomegaly Inspection/Auscultation: + abdomen distended Musculoskeletal: no cyanosis or clubbing, extremities motor strength 5/5 Skin: no rashes, warm and dry Neurologic: PERRL, EOMI, accommodation nl, no face palsy, no dysarthria Psychiatric: A+Ox3, euthymic affect Results & Data ([facility]) Vital Signs (Past 12 Hours) Vital Signs Temp Pulse Pulse Resp BP Pulse Ox 02/15/21 11:28 36.5 C 115 H 18 146/99 H 91 02/15/21 07:54 105 H 02/15/21 07:40 36.5 C 106 H 19 140/88 96 02/15/21 02:51 36.4 C L 115 H 20 149/94 H 99 Laboratory Results Laboratory Results - last 24 hr 02/15/21 02/15/21 10:38 10:38 WBC 8.45 RBC 3.58 L Hgb 9.6 L Hct 33.2 L MCV 92.7 MCH 26.8 MCHC 28.9 L RDW Std Deviation 61.0 H RDW Coeff of Nicholas 18.2 H Plt Count 269 MPV 9.0 Sodium 141 Potassium 4.0 Chloride 109 H Carbon Dioxide 24 Anion Gap 8.0 BUN 29 H Creatinine 1.26 H Est Cr Clr Drug Dosing 39.4 Est GFR ( Amer) 45.6 Est GFR (Non-Af Amer) 39.4 BUN/Creatinine Ratio 22.7 H Glucose 83 Calcium 8.4 L
[2021-02-15] MEDS ORDERED: DIGOXIN 0.25 MG TAB PO ONE (13:30)
[2021-02-15] MEDS ORDERED: DIGOXIN 0.25 MG TAB PO SCH (16:00)
[2021-02-15] MEDS: DOCUSATE SODIUM/SENNA 50/8.6MG TAB PO SCH (19:49)
[2021-02-15] MEDS: ATORVASTATIN 40 MG TAB PO SCH (19:49)
[2021-02-15] MEDS: LATANOPROST 0.005% OP SOLN 2.5 ML BTL OP SCH (19:50)
[2021-02-15] MEDS: METOPROLOL SUCC 50MG EXT REL TAB PO SCH (19:50)
--- NOTE | 2021-02-15 23:46 | Hospitalist Progress Note ---
Date of Service February 15, 2021 Assessment & Plan (1) Decompensated heart failure: Plan: Chronic ischemic heart disease: Present on admission with worsening SOB associated with abdominnal distention and swelling CXR showed cardiomegaly without pulmonary edema. Small right pleural effusion with mild right lung base opacities. CTA showed Cardiomegaly with pulmonary edema, trace left and small right pleural effusions. Mild nonspecific mediastinal and hilar adenopathy, slightly progressed from 01/21/2021. ProBNP [id number] Received Lasix IV on admission Will give Lasix 40mg x1 today Cardiology on board Continue monitor I/O Will monitor BMP while on Lasix Paroxysmal atrial fibrillation with rapid ventricular response: Pacemaker: EKG on admission showed Afib with rate 119 will be difficult it will be difficult to convert back to sinus rhythm Metoprolol titrate changed to metoprolol succinate that increased to 125 mg twice daily Spoke to cardiology and plan to give Digoxin today Metoprolol succinate increased to 200mg BID Unable to cardiovert since patient will need to be on anticoagulant after the cardioversion Contraindications to anticoagulation secondary to falls and spontaneous thigh hematoma as bleeding complications. 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 Heparin subcu Full code Admission and Anticipated Discharge Date Admission Date: February 13, 2021 Subjective Pt was seen and examined for SOB Lying in bed with no acute distress with son at bedside Pt said that her breathing is much better Denies any chest pain, palpitation, dizziness, and fever. Review of Systems Review of Systems: All systems reviewed & are unremarkable except as noted in Subjective Physical Exam Physical Exam: General- No acute distress Head- atraumatic Eyes- PERRL, EOMI, ENT- oropharynx clear Neck- supple, no JVD Lungs- clear to auscultation Heart- irregular rhythm, Tachycardia Abdomen- normal bowel sounds, +distended Extremities- no calf tenderness Neuro- alert, oriented x 3; PERRL, EOMI; no facial palsy; no dysarthria Skin- warm & dry Results & Data Results & Data ([facility]) Vital Signs (Past 12 Hours) Vital Signs Temp Pulse Pulse Resp BP BP Pulse Ox 02/15/21 19:48 36.5 C 102 H 18 146/95 H 92 02/15/21 17:10 111 H 02/15/21 15:42 36.3 C L 107 H 24 144/95 H 96 02/15/21 15:41 104 H 02/15/21 14:22 107 H
[2021-02-16] MEDS: HEPARIN SOD 5,000 UNIT/0.5 ML VIAL SQ SCH ×3 (06:32→20:15)
[2021-02-16] MEDS: ACETAMINOPHEN 325 MG TAB PO PRN ×3 (06:37→20:08)
[2021-02-16] MEDS: METOPROLOL SUCC 50MG EXT REL TAB PO SCH ×2 (08:38→20:10)
[2021-02-16] MEDS: DULoxetine HCL 20 MG CAP PO SCH (08:38)
[2021-02-16] MEDS: PANTOprazole 40 MG TAB PO SCH (08:38)
[2021-02-16] MEDS: ASPIRIN 81 MG ECTAB PO SCH (08:38)
[2021-02-16] MEDS: POTASSIUM CHLORIDE CRTAB 20 MEQ TABCR PO SCH ×2 (08:45→16:01)
[2021-02-16 10:20] LABS: Hematocrit (blood only) 33.6 % (37-47); Hemoglobin 9.7 g/dL (12.0-16.0); Mean Corpuscular Hemoglobin 26.4 pg (25-34); Mean Corpuscular Hgb Conc 28.9 g/dL (32-36); Mean Corpuscular Volume 91.6 fL (80-100); Mean Platelet Volume 8.7 fL (7.4-10.4); Platelet Count 261 K/uL (130-400); RDW Coefficient of Variation 18.1 % (11.5-14.5); RDW Standard Deviation 61.2 fL (36.4-46.3); Red Blood Count 3.67 M/uL (4.2-5.4); White Blood Count 7.71 K/uL (4.8-10.8)
--- NOTE | 2021-02-16 10:25 | Cardiology Progress Note ---
Date of Service February 16, 2021 Assessment & Plan (1) Paroxysmal atrial fibrillation with rapid ventricular response: (2) Decompensated heart failure: (3) Sleep apnea: (4) Colon carcinoma: (5) Chronic ischemic heart disease: (6) Pacemaker: Plan: 85-year-old female with complex history - chronic stable ischemic heart disease, past paroxysmal atrial fibrillation, Tachy-Bradycardia Syndrome status post dual-chamber pacemaker insertion. Patient admitted to [facility] due to acute decompensated congestive heart failure after lapsing in to atrial fibrillation with rapid ventricular response. Echocardiography suggest low likelihood patient will return to sinus rhythm. 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 Recommend proceeding with rate control. Metoprolol changed to succinate formulation with digoxin added. Continue metoprolol succinate at 200 mg twice per day along with digoxin 125 mcg/day. Will await AM labs, likely administering one more dose of IV furosemide. Covid-19 vaccination discussed along with future bowel resection risks/benefits. Admission and Anticipated Discharge Date Admission Date: February 13, 2021 Supervising Physician Co-Signing Physician Notes Patient seen and examined, chart, medications, telemetry reviewed. Assessment as above. Patient improved substantially after rate control. Still occasionally breathlessness but overall heart rates improved and no volume overload on examination We will restart oral diuretic with furosemide 40 mg p.o. daily as first dose. All other medical therapies as listed above. No contraindications to proceeding with surgery as planned. Would recommend expediting surgical assessment Subjective Patient seen and examined. Chart, medications, and telemetry reviewed. Resting comfortably. Dyspnea has significantly improved, occasionally with a panting episode. Abdominal bloating and peripheral edema has resolved. No chest pain. No palpitations. No dizziness. No fevers or chills. Telemetry: Atrial fibrillation in the 80's currently, 90's to 100's overnight. AM labs remain pending. Review of Systems Review of Systems: Unvaccinated against Covid-19 In need of bowel resection. Complete review of systems is as stated above, negative, or noncontributory. Physical Exam Physical Exam: General: A&Ox3. NAD. HENT: Normocephalic. Atraumatic. PER. Conjunctiva pink, sclera clear. Neck: No carotid bruits. No JVD. No HJR. Heart: Somewhat distant heart sounds. Irregularly irregular around 90 bpm. No murmur. No rub. Lungs: Clear to auscultation. Abdomen: +BS. Soft. Nontender. No masses or organomegaly. Extremities: Minimal edema. Thick extremities. No clubbing. No cyanosis. Limited neurological examination is without focal deficits. Pulses: radial=2/4, posterior tibial=1/4. Results & Data ([facility]) Vital Signs (Past 12 Hours) Vital Signs Temp Pulse Resp BP BP Pulse Ox 02/16/21 07:59 36.4 C L 94 H 18 157/98 H 94 02/16/21 04:09 36.4 C L 97 H 18 143/103 H 100 02/16/21 00:04 36.4 C L 88 24 166/94 H 98 Laboratory Results Laboratory Results - last 24 hr 02/15/21 02/15/21 02/16/21 10:38 10:38 09:57 WBC 8.45 Pending RBC 3.58 L Pending Hgb 9.6 L Pending Hct 33.2 L Pending MCV 92.7 Pending MCH 26.8 Pending MCHC 28.9 L Pending RDW Std Deviation 61.0 H RDW Coeff of Nicholas 18.2 H Plt Count 269 Pending MPV 9.0 Sodium 141 Potassium 4.0 Chloride 109 H Carbon Dioxide 24 Anion Gap 8.0 BUN 29 H Creatinine 1.26 H Est Cr Clr Drug Dosing 39.4 Est GFR ( Amer) 45.6 Est GFR (Non-Af Amer) 39.4 BUN/Creatinine Ratio 22.7 H Glucose 83 Calcium 8.4 L 02/16/21 09:57 WBC RBC Hgb Hct MCV MCH MCHC RDW Std Deviation RDW Coeff of Nicholas Plt Count MPV Sodium Pending Potassium Pending Chloride Pending Carbon Dioxide Pending Anion Gap Pending BUN Pending Creatinine Pending Est Cr Clr Drug Dosing Pending Est GFR ( Amer) Pending Est GFR (Non-Af Amer) Pending BUN/Creatinine Ratio Pending Glucose Pending Calcium Pending
[2021-02-16 10:37] LABS: BUN Creatinine Ratio 22.8 (10-20); Calcium 8.5 mg/dl (8.5-10.1); Creatinine Clr Calc Pharmacy 40.2 ml/min; Est GFR (Non-African American) 40.5 ml/min; Potassium 4.2 mmol/L (3.5-5.1)
[2021-02-16] MEDS ORDERED: ALUMINUM/MAGNESIUM/SIMETH (MAALOX MAX) 30 ML UDC PO STA (10:39)
[2021-02-16] MEDS: LORazepam 0.5 MG TAB PO PRN (13:04)
[2021-02-16] MEDS: FUROSEMIDE 40 MG TAB PO SCH (14:00)
[2021-02-16] MEDS: DIGOXIN 0.125 MG TAB PO SCH (16:01)
[2021-02-16] MEDS: DOCUSATE SODIUM/SENNA 50/8.6MG TAB PO SCH (20:09)
[2021-02-16] MEDS: ATORVASTATIN 40 MG TAB PO SCH (20:09)
[2021-02-16] MEDS: LATANOPROST 0.005% OP SOLN 2.5 ML BTL OP SCH (20:15)
--- NOTE | 2021-02-16 21:20 | Hospitalist Progress Note ---
Date of Service February 16, 2021 Assessment & Plan (1) Decompensated heart failure: Plan: Chronic ischemic heart disease: Present on admission with worsening SOB associated with abdominnal distention and swelling CXR showed cardiomegaly without pulmonary edema. Small right pleural effusion with mild right lung base opacities. CTA showed Cardiomegaly with pulmonary edema, trace left and small right pleural effusions. Mild nonspecific mediastinal and hilar adenopathy, slightly progressed from 01/21/2021. ProBNP 16006 Received Lasix IV during the hospital course Cardiology on board PO lasix 40mg daily will resume today Continue monitor I/O Will monitor BMP while on Lasix Paroxysmal atrial fibrillation with rapid ventricular response: Pacemaker: EKG on admission showed Afib with rate 119 will be difficult it will be difficult to convert back to sinus rhythm Metoprolol titrate changed to metoprolol succinate that increased to 125 mg twice daily Spoke to cardiology and plan to give Digoxin today Continue Metoprolol succinate 200mg BID and digoxin 125mcg Unable to cardiovert since patient will need to be on anticoagulant after the cardioversion Contraindications to anticoagulation secondary to falls and spontaneous thigh hematoma as bleeding complications. 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 Heparin subcu Full code disposition Possible discharge tomorrow Admission and Anticipated Discharge Date Admission Date: February 13, 2021 Subjective Pt was seen and examined for SOB Lying in bed with no acute distress Pt said that her breathing continue to improve Denies any chest pain, palpitation, dizziness, and fever. Review of Systems Review of Systems: All systems reviewed & are unremarkable except as noted in Subjective Physical Exam Physical Exam: General- No acute distress Head- atraumatic Eyes- PERRL, EOMI, ENT- oropharynx clear Neck- supple, no JVD Lungs- clear to auscultation Heart- irregular rhythm Abdomen- normal bowel sounds, +distended Extremities- no calf tenderness Neuro- alert, oriented x 3; PERRL, EOMI; no facial palsy; no dysarthria Skin- warm & dry Results & Data Results & Data ([facility]) Vital Signs (Past 12 Hours) Vital Signs Temp Pulse Pulse Resp BP Pulse Ox 02/16/21 19:48 36.8 C 92 H 20 153/101 H 96 02/16/21 16:01 92 H 02/16/21 15:39 36.4 C L 94 H 16 138/97 96 02/16/21 11:48 36.3 C L 92 H 18 146/92 H 95
[2021-02-17] MEDS: ACETAMINOPHEN 325 MG TAB PO PRN ×2 (03:20→10:20)
[2021-02-17] MEDS: HEPARIN SOD 5,000 UNIT/0.5 ML VIAL SQ SCH ×3 (06:01→22:07)
--- NOTE | 2021-02-17 06:32 | Electrocardiogram Report ---
Test Reason : Blood Pressure : / mmHG Vent. Rate : 119 BPM Atrial Rate : 120 BPM P-R Int : 000 ms QRS Dur : 096 ms QT Int : 344 ms P-R-T Axes : 000 034 198 degrees QTc Int : 484 ms Atrial fibrillation with rapid ventricular response with premature ventricular or aberrantly conducte d complexes Septal infarct , age undetermined Prolonged QT Abnormal ECG When compared with ECG of 09-MAY-2019 17:41, Atrial fibrillation has replaced sinus and atrial paced rhythm T wave inversion now evident in inferior and anterolateral leads Confirmed by Arian Pierce ([id number]) on 02/17/2021 6:31:31 AM Referred By: Erlinda Hutton Confirmed By:Arian Pierce
[2021-02-17] MEDS: METOPROLOL SUCC 50MG EXT REL TAB PO SCH ×2 (08:12→19:38)
[2021-02-17] MEDS: ASPIRIN 81 MG ECTAB PO SCH (08:13)
[2021-02-17] MEDS: FUROSEMIDE 40 MG TAB PO SCH (08:13)
[2021-02-17] MEDS: PANTOprazole 40 MG TAB PO SCH (08:13)
[2021-02-17] MEDS: DULoxetine HCL 20 MG CAP PO SCH (08:13)
[2021-02-17 10:00] LABS: Calcium 8.8 mg/dl (8.5-10.1); Creatinine Clr Calc Pharmacy 43.5 ml/min; Est GFR (African American) 52.1 ml/min; Est GFR (Non-African American) 44.9 ml/min; Potassium 4.1 mmol/L (3.5-5.1)
[2021-02-17] MEDS: POTASSIUM CHLORIDE CRTAB 20 MEQ TABCR PO SCH ×2 (10:01→16:10)
--- NOTE | 2021-02-17 10:19 | Cardiology Progress Note ---
Date of Service February 17, 2021 Assessment & Plan (1) Paroxysmal atrial fibrillation with rapid ventricular response: (2) Decompensated heart failure: (3) Sleep apnea: (4) Colon carcinoma: (5) Chronic ischemic heart disease: (6) Pacemaker: Plan: 85-year-old female with complex history - chronic ischemic heart disease, past paroxysmal atrial fibrillation, Tachy-Arnav Syndrome status post dual-chamber pacemaker insertion. Patient admitted to [facility] due to acute decompensated congestive heart failure after lapsing in to atrial fibrillation with rapid ventricular response. Echocardiography suggest low likelihood patient will return to sinus rhythm. 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 Recommend "rate control" strategy with heart rates notably presently acceptably controlled on metoprolol succinate 200 mg twice per day and digoxin 125 mcg/day. Examination reveals euvolemic patient. PA and lateral chest x-ray and limited resting echocardiography requested to assess complaints. Further recommendations to come. Admission and Anticipated Discharge Date Admission Date: February 13, 2021 Supervising Physician Co-Signing Physician Notes Patient was seen and examined, chart, medications, telemetry reviewed. Heart rate coming under better control. Patient now manifesting diuresis with occasional episodes of breathlessness. Echocardiogram not significantly changed from outpatient study, 02/10/2021, EF 45 to 50% with moderate mitral tricuspid insufficiency Chest x-ray without infiltrate or significant edema Plan continue current medical therapies while observing additional day spironolactone will be added to her regimen patient is manifesting diuresis with current oral dosing of furosemide Renal function remains stable Subjective Patient seen and examined. Chart, medications, and telemetry reviewed. Notes "I am good and I am bad." Notes "panting for breath" last night, stating "it may have been a panic attack, I (from time to time) cannot get a deep breath in." Telemetry: Atrial fibrillation predominantly in the 80s and 90s. Review of Systems Review of Systems: Complete review of systems is otherwise as stated above, negative, or noncontributory. Physical Exam Physical Exam: General: A&Ox3. NAD. HENT: Normocephalic. Atraumatic. PER. Conjunctiva pink, sclera clear. Neck: No carotid bruits. No JVD. No HJR. Heart: Somewhat distant heart sounds. Irregularly irregular around 90 bpm. No murmur. No rub. Lungs: Clear to auscultation. Abdomen: +BS. Soft. Nontender. No masses or organomegaly. Extremities: No edema. Somewhat thick extremities. No clubbing. No cyanosis. Limited neurological examination is without focal deficits. Pulses: radial=2/4, posterior tibial=1/4. Results & Data ([facility]) Vital Signs (Past 12 Hours) Vital Signs Temp Pulse Pulse Resp BP Pulse Ox 02/17/21 07:26 36.8 C 77 15 120/98 95 02/17/21 07:25 77 02/17/21 03:32 36.5 C 99 H 19 148/99 H 99 02/16/21 23:20 36.6 C 62 18 156/95 H 100 Laboratory Results Laboratory Results - last 24 hr 02/16/21 02/16/21 02/17/21 09:57 09:57 09:09 WBC 7.71 RBC 3.67 L Hgb 9.7 L Hct 33.6 L MCV 91.6 MCH 26.4 MCHC 28.9 L RDW Std Deviation 61.2 H RDW Coeff of Nicholas 18.1 H Plt Count 261 MPV 8.7 Sodium 141 138 Potassium 4.2 4.1 Chloride 107 106 Carbon Dioxide 27 27 Anion Gap 6.0 5.0 BUN 28 H 25 H Creatinine 1.23 H 1.13 Est Cr Clr Drug Dosing 40.2 43.5 Est GFR ( Amer) 47.0 52.1 Est GFR (Non-Af Amer) 40.5 44.9 BUN/Creatinine Ratio 22.8 H 22.0 H Glucose 86 97 Calcium 8.5 8.8
--- NOTE | 2021-02-17 12:51 | XRay Report ---
XR chest 2V PA/lateral CLINICAL HISTORY: sob. COMPARISON STUDY: 02/13/2021 TECHNIQUE: 2 views of the chest FINDINGS: Frontal and lateral radiographs of the chest demonstrate the heart size to again be enlarged with a p ermanent cardiac pacer in place. There is a decreased inspiratory effort with elevation of the hemidi aphragms and crowding of the bronchovascular markings at the lung bases and centrally. The lungs are otherwise clear of alveolar opacities. There is no evidence for effusion bilaterally. There is no anoop dence for vascular congestion. There is no acute osseous pathology. IMPRESSION: There is a decreased inspiratory effort with otherwise no acute chest disease. ACT 112: Negative or not required by law. Electronically signed by: Johnny Fowler M.D. 02/17/2021 12:50 PM
[2021-02-17] MEDS: SPIRONOLACTONE 12.5 MG TAB PO SCH (14:43)
[2021-02-17] MEDS: DIGOXIN 0.125 MG TAB PO SCH (16:09)
[2021-02-17] MEDS: traMADol HCL 50 MG TABLET PO PRN (18:10)
[2021-02-17] MEDS: ATORVASTATIN 40 MG TAB PO SCH (19:36)
[2021-02-17] MEDS: DOCUSATE SODIUM/SENNA 50/8.6MG TAB PO SCH (19:36)
[2021-02-17] MEDS: LATANOPROST 0.005% OP SOLN 2.5 ML BTL OP SCH (19:37)
[2021-02-17] MEDS: LORazepam 0.5 MG TAB PO PRN (22:07)
--- NOTE | 2021-02-17 22:35 | Hospitalist Progress Note ---
Date of Service February 17, 2021 Assessment & Plan (1) Decompensated heart failure: Plan: Acute on chronic systolic and diastolic CHF Chronic ischemic heart disease: Present on admission with worsening SOB associated with abdominnal distention and swelling CXR showed cardiomegaly without pulmonary edema. Small right pleural effusion with mild right lung base opacities. CTA showed Cardiomegaly with pulmonary edema, trace left and small right pleural effusions. Mild nonspecific mediastinal and hilar adenopathy, slightly progressed from 01/21/2021. ProBNP 20820 Received Lasix IV during the hospital course Cardiology on board Repeat Echocardiogram today showed no significantly changed from outpatient study on 02/10/2021. EF 45 to 50% with moderate mitral tricuspid insufficiency Chest x-ray without infiltrate or significant edema Continue PO lasix 40mg daily Spironolactone 12.5 mg started today Will monitor BMP while on Lasix and spironolactone Paroxysmal atrial fibrillation with rapid ventricular response: Pacemaker: EKG on admission showed Afib with rate 119 will be difficult it will be difficult to convert back to sinus rhythm Metoprolol titrate changed to metoprolol succinate that increased to 125 mg twice daily Spoke to cardiology and plan to give Digoxin today Continue Metoprolol succinate 200mg BID and digoxin 125mcg Unable to cardiovert since patient will need to be on anticoagulant after the cardioversion Contraindications to anticoagulation secondary to falls and spontaneous thigh hematoma as bleeding complications. 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 Heparin subcu Full code disposition Possible discharge tomorrow Admission and Anticipated Discharge Date Admission Date: February 13, 2021 Subjective Pt was seen and examined for SOB. Lying in bed with no acute distress Patient said that sometimes she had a brief episode where her breathing is heavy Denies any chest pain, palpitation, dizziness, and fever. Review of Systems Review of Systems: All systems reviewed & are unremarkable except as noted in Subjective Physical Exam Physical Exam: General- No acute distress Head- atraumatic Eyes- PERRL, EOMI, ENT- oropharynx clear Neck- supple, no JVD Lungs- clear to auscultation Heart- irregular rhythm Abdomen- normal bowel sounds, +distended Extremities- no calf tenderness Neuro- alert, oriented x 3; PERRL, EOMI; no facial palsy; no dysarthria Skin- warm & dry Results & Data Results & Data ([facility]) Vital Signs (Past 12 Hours) Vital Signs Temp Pulse Pulse Resp BP Pulse Ox 02/17/21 19:15 37 C 81 18 160/97 H 95 02/17/21 16:25 36.5 C 98 H 157/87 H 97 02/17/21 16:09 99 H 02/17/21 12:12 36.7 C 96 H 148/77 H 97
[2021-02-18] MEDS: HEPARIN SOD 5,000 UNIT/0.5 ML VIAL SQ SCH (06:23)
[2021-02-18 08:19] LABS: BUN Creatinine Ratio 20.4 (10-20); Creatinine Clr Calc Pharmacy 46.7 ml/min; Est GFR (African American) 55.6 ml/min; Potassium 4.8 mmol/L (3.5-5.1)
[2021-02-18] MEDS: traMADol HCL 50 MG TABLET PO PRN ×2 (08:32→13:23)
[2021-02-18] MEDS: DULoxetine HCL 20 MG CAP PO SCH (08:33)
[2021-02-18] MEDS: METOPROLOL SUCC 50MG EXT REL TAB PO SCH (08:33)
[2021-02-18] MEDS: POTASSIUM CHLORIDE CRTAB 20 MEQ TABCR PO SCH (08:33)
[2021-02-18] MEDS: FUROSEMIDE 40 MG TAB PO SCH (08:34)
[2021-02-18] MEDS: PANTOprazole 40 MG TAB PO SCH (08:34)
[2021-02-18] MEDS: ASPIRIN 81 MG ECTAB PO SCH (08:34)
[2021-02-18] MEDS: SPIRONOLACTONE 12.5 MG TAB PO SCH (08:34)
[2021-02-18] MEDS ORDERED: POLYETHYLENE (MIRALAX) 17 GM PACK PO STA (10:41)
[2021-02-18] MEDS: ACETAMINOPHEN 325 MG TAB PO PRN (10:44)
--- NOTE | 2021-02-18 10:59 | Cardiology Progress Note ---
Date of Service February 18, 2021 Assessment & Plan (1) Paroxysmal atrial fibrillation with rapid ventricular response: (2) Decompensated heart failure: (3) Sleep apnea: (4) Colon carcinoma: (5) Chronic ischemic heart disease: (6) Pacemaker: Plan: 85-year-old female with complex history - chronic ischemic heart disease, past paroxysmal atrial fibrillation, Tachy-Arnav Syndrome status post dual-chamber pacemaker insertion. Patient admitted to [facility] due to acute decompensated congestive heart failure after lapsing in to atrial fibrillation with rapid ventricular response. Echocardiography suggest low likelihood of returning to sinus rhythm. 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 Recommend "rate control" strategy, reevaluating the risks and the benefits of anticoagulation from time to time. Heart rates remain well controlled on metoprolol succinate 200 mg twice per day and digoxin 125 mcg/day; this regimen should be continued on discharge. Recommend resuming losartan additional blood pressure control. Increase activity as tolerated. Risks and benefits of future colon surgery discussed; patient is felt to be an acceptable risk for the necessary procedure. Outpatient Cardiology follow-up on , February 26, 2021 at 11:45 at the [facility]. A basic metabolic panel will need to be obtained on 02/26/2021 given the addition of spironolactone this admission. Will also review perioperative medication recommendations again at that time. Admission and Anticipated Discharge Date Admission Date: February 13, 2021 Supervising Physician Co-Signing Physician Notes Patient seen and examined chart, medications, telemetry reviewed. Patient feels and looks substantially improved this morning heart rates much better controlled. Blood pressure still labile but not receiving losartan Plan as above medications adjusted. Will be discharged on metoprolol succinate 200 mg twice per day, digoxin 125 mcg 5 days/week, resumption of losartan. Diuretic dosage of furosemide 40 mg/day plus spironolactone 25 mg/day Will need expedite surgical evaluation for colon resection expect patient to be clinically compensated for this procedure Subjective Patient seen and examined. Chart, medications, and telemetry reviewed. Biggest issue today is chronic bilateral knee pain. Concern regarding elevated blood pressure readings. Notes anxiety, without significant subjective benefit from lorazepam. No chest pain. No overt palpitations. No new or worsening dyspnea. No orthopnea, PND, or peripheral edema. No dizziness or syncope. No subjective fevers or chills. Telemetry: Atrial fibrillation with intermittent pacing and occasional PVCs. Heart rates, over the last 24 hours, have been well controlled, ranging from the 70s to 100 bpm. I's/O's -3253.75 mL overall. Review of Systems Review of Systems: Complete review of systems is otherwise as stated above, negative, or noncontributory. Physical Exam Physical Exam: General: A&Ox3. NAD. HENT: Normocephalic. Atraumatic. PER. Conjunctiva pink, sclera clear. Neck: No carotid bruits. No JVD. No HJR. Heart: Somewhat distant heart sounds. Irregularly irregular around 90 bpm. No murmur. No rub. Lungs: Clear to auscultation. Abdomen: +BS. Soft. Nontender. No masses or organomegaly. Extremities: No edema. Somewhat thick extremities. No clubbing. No cyanosis. Limited neurological examination is without focal deficits. Pulses: radial=2/4, posterior tibial=1/4. Results & Data ([facility]) Vital Signs (Past 12 Hours) Vital Signs Temp Pulse Pulse Pulse Resp BP Pulse Ox 02/18/21 07:42 79 02/18/21 07:32 36.6 C 91 H 18 157/90 H 95 02/18/21 03:30 36.4 C L 89 18 142/84 H 97 02/17/21 23:37 36.7 C 73 18 154/96 H 98 Laboratory Results Laboratory Results - last 24 hr 02/18/21 07:02 Sodium 140 Potassium 4.8 D Chloride 108 H Carbon Dioxide 28 Anion Gap 4.0 BUN 22 H Creatinine 1.07 Est Cr Clr Drug Dosing 46.7 Est GFR ( Amer) 55.6 Est GFR (Non-Af Amer) 48.0 BUN/Creatinine Ratio 20.4 H Glucose 92 Calcium 9.0
[2021-02-18] MEDS ORDERED: amLODIPine BESYLATE 5 MG TAB PO SCH (11:00)
--- NOTE | 2021-02-18 11:23 | Discharge Summary ---
Date of Service February 18, 2021 Admission HPI Per Admitting Provider History obtained from patient and records. Medical history significant for chronic systolic heart failure secondary to ischemic cardiomyopathy (EF 45 to 49%, TTE 2020), SSS status post PPM, atrial fibrillation not on anticoagulation secondary to history of recurrent falls/significant groin bleed, CAD sp stent, valvular heart disease (moderate MR, mild TR on recent TTE), MARTI (CPAP intolerance) on home O2 via nasal cannula at night, pulmonary hypertension as per records, hypertension, hyperlipidemia, recent diagnosis of colon cancer, primary hyperparathyroidism status post surgery, chronic anemia (baseline hemoglobin of 10). Last confinement January 2015 for pericarditis, CHF. 2 weeks ago, patient noted palpitations, irregular heartbeat with intermittent left-sided chest discomfort reminiscent of A. fib episodes. Patient compliant with home medications. Denies unusual stress. Some lightheadedness, exertional shortness of breath symptoms. Usual dry cough symptoms on swallowing as per patient. Patient mentioned palpitation symptoms to her general surgeon on outpatient consult last week for new diagnosis of colon adenocarcinoma. Patient found to have irregular heartbeat on exam as per note. Patient referred to PCP and cardiology for preop evaluation. No congestion on outpatient CXR requested by PCP Patient seen at [facility] cardiology office 4 days ago for follow-up/preop eval Pacemaker interrogation showed atrial fibrillation commencing a day after patient's bowel prep for colonoscopy last month. Provider recommended repeat TTE and increasing patient's metoprolol tartrate 200 mg twice a day and discontinuing hydralazine. Outpatient TTE showed concentric LVH, mild to me valve sclerosis, moderate mitral regurgitation. Mild TR. Mild pulmonary hypertension. Moderately abnormal diastolic dysfunction. LVEF 45 to 49%. Compared to previous echo from 2017, left atrium now severely enlarged and EF mildly reduced. Patient noted worsening symptoms the last 2 days. Patient feeling more bloated with leg swelling. Weight gain of about 10 pounds as per patient. Home nursing contacted patient's cardiology provider today who recommended increasing metoprolol tartrate to 100 mg in a.m. and 150 mg in p.m. and doubling Lasix total of 40 mg daily for 3 days. Patient consulted ER for worsening symptoms. IV Lasix given at the ER. IV Cardizem initiated at the ER for rapid A. fib. 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 Admission Exam Per Admitting Provider GENERAL: Comfortable, pleasant, obese, looks younger for stated age, no respiratory distress SKIN: Pallor, warm HEENT: Pale palpebral conjunctivae, no ptosis, moist buccal mucosa NECK : Supple, no tenderness CHEST : Decreased breath sounds, occasional expiratory wheezes, no tenderness HEART : Irregular, systolic murmur heard over left sternal border , ABDOMEN: Some distention, nontender EXTREMITIES : Bilateral LE swelling, no LE tenderness, no other conspicuous deformities noted NEUROLOGIC : Coherent, no facial asymmetry, no other gross focality Principal Diagnosis Acute on chronic systolic heart failure. Paroxysmal atrial fibrillation with rapid ventricular response Discharge Exam Constitutional + well hydrated; no acute distress Eyes PERRL, conjunctivae normal, anicteric sclerae ENMT external ear and nose normal, oropharynx normal Respiratory normal respiratory effort, lungs clear to auscultation Cardiovascular Irregularly irregular S1 S2 Gastrointestinal (Abdomen) normal bowel sounds, soft, nontender, no hepatosplenomegaly Musculoskeletal No pedal edema Neurologic PERRL, EOMI, accommodation nl, no face palsy, no dysarthria Psychiatric A+Ox3, euthymic affect Discharge Data Allergies Allergy/AdvReac Type Severity Reaction Status Date / Time alendronate sodium Allergy Intermediate Wheezing, Verified 02/13/21 18:10 shortness of breath. ezetimibe Allergy Intermediate Muscle Verified 02/13/21 18:10 pain. ibandronate sodium Allergy Intermediate trouble Verified 02/13/21 18:10 [From Boniva] swallowing Iodinated Contrast Media Allergy Intermediate Wheezing Verified 02/13/21 18:10 simvastatin Allergy Intermediate Muscle Verified 02/13/21 18:10 pain. erythromycin base Allergy Mild Nausea Verified 02/13/21 18:10 red dye Allergy Mild RASH Verified 02/13/21 18:10 Consultations 02/13/21 21:11 ED Decision to Admit Stat 02/14/21 00:52 Consult Cardiology Routine Ordered Studies 02/13/21 19:06 CT angio chest PE protocol Stat CTA: Moderate cardiomegaly. The left heart structures are not well opacified and therefore difficult to evaluate. Trace pericardial effusion. Moderate coronary a rtery calcifications. Atherosclerosis of the thoracic aorta without aneurysm. The segment on subsegmental pulmonary arterial branches the level of the lung bases are not well opacified and therefore difficult to evaluate. No pulmonary emboli identified. CT CHEST: Heterogeneity of the thyroid. There are several mildly enlarged mediastinal and hilar lymph nodes measuring up to 10-11 mm which have mildly increased in size from prior. 11 mm paratracheal lymph node on image 199 previously measured 9 mm. Trace left and small right pleural effusions. Intralobular septal thickening with bronchial wall thickening. Mild bibasilar groundglass densities. There are a few ill-defined subtle groundglass nodules of the bilateral lungs measuring up to 4 mm which appear stable from prior. Central airways are patent. No acute process of the imaged upper abdomen. Mild nonspecific distal esophageal wall thickening. Unremarkable soft tissues. Degenerative changes of the shoulders and spine. Chondrocalcinosis with debris of the glenohumeral joints. Numerous healed chronic left-sided rib fractures. IMPRESSION: 1. Cardiomegaly with pulmonary edema, trace left and small right pleural effusions. 2. Mild nonspecific mediastinal and hilar adenopathy, slightly progressed from 01/21/2021. 3. No pulmonary emboli identified. 4. Subtle tiny groundglass nodules of the bilateral lungs measuring up to 4 mm redemonstrated, likely infectious or inflammatory. Hospital Course (1) Decompensated heart failure: Acute on chronic systolic and diastolic CHF Chronic ischemic heart disease: Present on admission with worsening SOB associated with abdominnal distention and swelling CXR showed cardiomegaly without pulmonary edema. Small right pleural effusion with mild right lung base opacities. CTA showed Cardiomegaly with pulmonary edema, trace left and small right pleural effusions. Mild nonspecific mediastinal and hilar adenopathy, slightly progressed from 01/21/2021. ProBNP [id number] Received Lasix IV during the hospital course Repeat Echocardiogram today showed no significantly changed from outpatient study on 02/10/2021. EF 45 to 50% with moderate mitral tricuspid insufficiency Chest x-ray without infiltrate or significant edema Continue PO lasix 40mg daily Discussed with Greenhouse Laborer Dr Westbrook today. Discharge on aldactone 25mg daily Paroxysmal atrial fibrillation with rapid ventricular response: EKG on admission showed Afib with rate 119 will be difficult it will be difficult to convert back to sinus rhythm Unable to cardiovert since patient will need to be on anticoagulant after the cardioversion Contraindications to anticoagulation secondary to falls and spontaneous thigh hematoma as bleeding complications. Discussed with transit mechanic today. Recommend discharging on digoxin 125 mcg on Mondays to Fridays only Metoprolol changed from tartrate to succinate 200 mg twice daily CKD stage 3 Creatinine stable @ 1.1 Monitor BMP while on Lasix in the settong of recent contrast from the CTA MARTI (CPAP intolerance) on home O2 via nasal cannula at night Colon cancer Recent colonoscopy on 01/18 showed Invasive adenocarcinoma is seen within the cecal mass biopsy Patient to follow-up with oncology outpatient Hyperglycemia Most recent Hba1c 5.2 Continue monitor BS Total Time Total Time Spent Total Time Spent (In Minutes): 50 Total Time Includes: Examination of the Patient, Discharge Planning, Medication Reconciliation and Communication With Other Providers Discharge Plan Discharge Items Patient Disposition: Home - Self-Care Reason For Visit: CHF Discharge Diagnosis: Acute on chronic systolic heart failure. Paroxysmal atrial fibrillation with rapid ventricular response Activity: Resume your previous activity Non-emergency contact: Primary Care Provider and Greenhouse Laborer Call non-emergency contact if: you have any medication questions and your symptoms worsen Follow-up/Referrals: Poli Zepeda [Physician Gate Mortiser Operator] - (Date & Time 02/26/2021 12:00 PM Provider Poli Zepeda PA-C Department Cardiology [facility] ) Erlinda Meneses MD [Primary Care Provider] - (Date & Time 02/25/2021 1:40 PM Provider Cathy Wilburn MD Department Family Medicine [facility] ) Diet: Heart Healthy Addtl Attending Provider Instructions: Mrs Coe. You came to the hospital feeling more bloated and leg swelling. You were evaluated and found to have congestive heart failure and atrial fibrillation with rapid ventricular rate. You were managed with the transit mechanic. You required medication adjustments. Your metoprolol was changed from metoprolol tartrate to metoprolol succinate and dose increased to 300 mg twice a day. You were started on digoxin. Please take this 0.125 milligrams daily Mondays to Fridays only. You also started on Aldactone 25 mg daily. It is very important that you take medications as prescribed and to follow-up with the transit mechanic as well as your primary doctor. It was a pleasure taking care of you. Pending Studies at Discharge: No Stand-Alone Forms: My [employer], Smoking Cessation Medications and DC Order Prescriptions: New digoxin [Digitek] 125 mcg (0.125 mg) Tablet See Rx Instructions .ROUTE .COMPLEX Qty: 30 RF: 0 spironolactone 25 mg Tablet 25 mg PO DAILY Qty: 30 RF: 0 metoprolol succinate 100 mg tablet extended release 24 hr 200 mg PO BID Qty: 120 RF: 0 Continued atorvastatin 40 mg Tablet 40 mg PO HS RF: 0 cyanocobalamin (vitamin B-12) [Vitamin B-12] 1,000 mcg Tablet 1,000 mcg PO 3XWK RF: 0 aspirin [Aspirin Low Dose] 81 mg Tablet,Delayed Release (Dr/Ec) 81 mg PO QAM RF: 0 acetaminophen 500 mg Tablet 1,000 mg PO BID RF: 0 lorazepam 0.5 mg Tablet 0.5 mg PO DAILY PRN (Reason: Anxiety) RF: 0 calcitriol 1 mcg/mL Solution 1 mcg PO 3XWK RF: 0 omeprazole 20 mg Tablet,Delayed Release (Dr/Ec) 20 mg PO QAM RF: 0 Prolia 60 mg/mL Syringe 60 mg SUBCUT UD RF: 0 sennosides-docusate sodium 8.6-50 mg Capsule 2 tab-cap PO HS RF: 0 furosemide 20 mg Tablet 40 mg PO QAM RF: 0 losartan 100 mg Tablet 100 mg PO QAM RF: 0 duloxetine 20 mg Capsule,Delayed Release(Dr/Ec) 20 mg PO QAM RF: 0 latanoprost (PF) 0.005 % Drops 1 drp OPHTHALMIC (EYE) PM RF: 0 ascorbic acid (vitamin C) [Vitamin C] 1,000 mg Tablet 1 g PO QAM RF: 0 zinc 50 mg Tablet 50 mg PO QAM RF: 0 ferrous fumarate-vitamin C 132-250 mg Tablet 1 tab PO DAILY@12 RF: 0 Discontinued metoprolol tartrate 100 mg Tablet 100 mg PO QAM RF: 0 metoprolol tartrate 50 mg Tablet 150 mg PO HS RF: 0 Discharge Orders: Discharge Order (Routine); Ordered 02/18/21 Ordered By: Radha Taveras/Other Patient Handouts: Digoxin Oral Tablet 0.125 mg Admission Data Admit Date/Time: 02/13/21 23:01 Attending Provider: Radha Mcguire I. Admit Provider: Chuck Horn Primary Care Provider: Erlinda Meneses Other Providers: Chuck Horn ; Cliff Childers ; Darshan Hood ; Al Westbrook ; Conrado Alberto ; Vaughn Padilla ; Poli Zepeda ; Carlie Garcia ; Elda Patterson ; Jane Tripathi ; Paul Flores Other Interventions: Discharge Summary Assessment (RN) Last Done: 02/18/21 12:29
[2021-02-18] MEDS ORDERED: POLYETHYLENE (MIRALAX) 17 GM PACK ONE (13:18)
== END 2021-02-18 14:56 | disposition home or self-care (01) | DRG 291 ==
LOC: ED 16:31 → 2S 23:01 → SUATTDRO 23:01 → 2S 23:54

== ENCOUNTER 2021-04-27 10:03 | Inpatient (IN) ==
--- NOTE | 2021-04-01 15:51 | Anesthesiology Consultation ---
Date of Service April 01, 2021 Assessment & Plan (1) Encounter for pre-operative examination: Surgery cancelled per surgeon's office and cardiology pending further cardiology assessment - cardiology telephone note 04/01/2021 [facility]: "...Case discussed today with Dr. Salamanca of general surgery. Recommend further ischemic workup prior to colon surgery...Discontinue digoxin...Proceed with Lexiscan nuclear stress test..." - cardiology follow-up and pre-op visit 03/31/2021 [facility]: "...hospital follow-up, atrial fibrillation, tachycardia bradycardia syndrome, congestive heart failure, preoperative evaluation...admitted to [facility] from 02/13/2021 until 02/19/2020 due to acute decompensated congestive heart failure after lapsing in to atrial fibrillation with rapid ventricular response. Echocardiography findings suggest low likelihood of returning to sinus rhythm...multiple contraindications to anticoagulation with history of multiple falls, spontaneous thigh hematoma, and recently diagnosed ulcerated colon carcinoma for which resection is tentatively planned next week...stable degree of dyspnea on exertion, improved compared to prior to her hospital stay...recent mechanical fall day follow-up x-ray performed yesterday revealed displaced fractures of the second through fifth metatarsal necks of the right foot...seen by Orthopedics ongoing observation recommended...EKG performed today 03/31/2021 and reviewed independently reveals atrial fibrillation at 72 beats per minute with demand right ventricular pacing, diffuse ST T-wave abnormality noted suggestive of digoxin pattern, LVH or ischemia, compared to the previous tracings, the repolarization changes are much more prominent... Regarding planned surgery: ...stable cardiac signs and symptoms...hold aspirin the day of her surgery...she is not a candidate for anticoagulation with regards to stroke prophylaxis for her atrial fibrillation...going to miss her upcoming in-person pacemaker interrogation and she will be in the hospital for her colon surgery. I facilitate having this rescheduled...At this time, I feel that she is well optimized from a volume status standpoint, heart rate standpoint, and an ischemia standpoint. Although the EKG changes are concerning, I do not think that delaying her planned surgery for further cardiac workup will improve her overall future trajectory. I would recommend that our cardiology practice is consulted at the time of postoperative recovery next week and that she is followed closely for development of signs or symptoms of myocardial ischemia. I do not think that performing a preoperative stress test or even cardiac catheterization would be of help of this case, because she is not a candidate for PCI, dual anti-platelet therapy, or surgical revascularization at present. Had a aniket discussion with the patient to this regard...we agree that the benefits of proceeding with surgery make the risks from a cardiac standpoint acceptable..." - discharge summary 02/18/2021 [facility]: "...worsening SOB associated with abdominnal distention and swelling. CXR showed cardiomegaly without pulmonary edema. Small right pleural effusion with mild right lung base opacities. CTA showed Cardiomegaly with pulmonary edema, trace left and small right pleural effusions. Mild nonspecific mediastinal and hilar adenopathy, slightly progressed from 01/21/2021. ProBNP 41891. Received Lasix IV during the hospital course. Repeat Echocardiogram today showed no significantly changed from o utpatient study on 02/10/2021. EF 45 to 50% with moderate mitral tricuspid insufficiency. Chest x-ray without infiltrate or significant edema. Continue PO lasix 40mg daily. Discussed with Seam Checker Dr Westbrook today. Discharge on aldactone 25mg daily..." - COVID screening: Per circle saw operator on 04/01/2021: Travel screen negative, no known COVID-19 positive contacts or current COVID-19 related symptoms in past 2 weeks. Surgeon arranging preop COVID testing, scheduled 04/02/2021. Awaiting results. Chart Review Chart Review: Pending: Refer to Additional Notes / Consult section and Patient NOT seen in Pre Admission Testing History Surgery Operation Date: 04/06/21 10:05 Proposed Procedures p Right Laparoscopic Possible Open Hemicolectomy - Ashok Salamanca MD Height/Weight Height: 5 ft 7 in Weight: 83.915 kg Allergies Allergy/AdvReac Type Severity Reaction Status Date / Time alendronate sodium Allergy Intermediate Wheezing, Verified 04/01/21 14:18 shortness of breath. ezetimibe Allergy Intermediate Muscle Verified 04/01/21 14:18 pain. ibandronate sodium Allergy Intermediate trouble Verified 04/01/21 14:18 [From Boniva] swallowing Iodinated Contrast Media Allergy Intermediate Wheezing Verified 04/01/21 14:18 simvastatin Allergy Intermediate Muscle Verified 04/01/21 14:18 pain. Thiazides Allergy Intermediate wheezing Verified 04/01/21 16:27 erythromycin base Allergy Mild Nausea Verified 04/01/21 14:18 red dye Allergy Mild RASH Verified 04/01/21 14:18 amiodarone Allergy shortness Verified 04/01/21 16:27 of breath morphine Allergy Verified 04/01/21 16:27 metoprolol AdvReac must be Verified 04/01/21 16:27 caraco brand Medications Home Medications Medication Instructions Recorded Confirmed Last Taken acetaminophen 500 mg tablet 1,000 mg PO BID 01/13/21 04/01/21 02/13/21 ascorbic acid (vitamin C) 1,000 mg 1 g PO QAM 01/13/21 04/01/21 02/13/21 tablet (Vitamin C) aspirin 81 mg tablet,delayed 81 mg PO QAM 01/13/21 04/01/21 02/13/21 release (Aspirin Low Dose) atorvastatin 40 mg tablet 40 mg PO HS 01/13/21 04/01/21 02/12/21 calcitriol 1 mcg/mL oral solution 1 mcg PO 3XWK 01/13/21 04/01/21 01/13/21 08:00 cyanocobalamin (vitamin B-12) 1,000 mcg PO 3XWK 01/13/21 04/01/21 01/13/21 08:00 1,000 mcg tablet (Vitamin B-12) denosumab 60 mg/mL subcutaneous 60 mg SUBCUT UD 01/13/21 04/01/21 01/12/21 syringe (Prolia) duloxetine 20 mg capsule,delayed 20 mg PO QAM 01/13/21 04/01/21 02/13/21 release furosemide 20 mg tablet 40 mg PO QAM 01/13/21 04/01/21 02/13/21 latanoprost (PF) 0.005 % eye drops 1 drp OPHTHALMIC (EYE) PM 01/13/21 04/01/21 01/14/21 22:00 lorazepam 0.5 mg tablet 0.5 mg PO DAILY PRN 01/13/21 04/01/21 02/13/21 losartan 100 mg tablet 100 mg PO QAM 01/13/21 04/01/21 02/13/21 omeprazole 20 mg tablet,delayed 20 mg PO QAM 01/13/21 04/01/21 02/13/21 release sennosides 8.6 mg-docusate sodium 2 tab-cap PO HS 01/13/21 04/01/21 02/12/21 50 mg capsule zinc 50 mg tablet 50 mg PO QAM 01/13/21 04/01/21 02/13/21 ferrous fumarate-vitamin C 132 1 tab PO DAILY@12 02/13/21 04/01/21 02/13/21 mg-250 mg tablet digoxin 125 mcg (0.125 mg) tablet See Rx Instructions .ROUTE 02/18/21 04/01/21 Unknown (Digitek) .COMPLEX #30 tab metoprolol succinate 100 mg 200 mg PO BID #120 tab 02/18/21 04/01/21 Unknown tablet,extended release 24 hr spironolactone 25 mg tablet 25 mg PO QAM 04/01/21 04/01/21 Unknown Past Medical History Medical History A-fib initially dx 4 years ago - 1 episode - resolved spontaneously and no known reccurrence until 01/2021 (hospitalized for at [facility]) -- pt states no AC because of fall risk Abnormal EKG per pt, EKG on 03/31/[address] Hood with changes suggesting possible blockage -- no plans for a cath Ambulates with cane Anemia Cardiac murmur Chronic kidney disease (CKD), stage III (moderate) follows with Dr. Lee Colon cancer dx 12/2020 Depression Frequent falls GERD (gastroesophageal reflux disease) Glaucoma History of COVID-19 diagnosed 02/2020 @ [facility]--fever, headache, cough, loss of t aste/smell--no issues now History of recent hospitalization 01/2021 [facility] A-fib, CHF Myocardial Infarction (~2005) follows with Poli Zepeda PA-C @ [facility] On home oxygen therapy 2 L n/c at hs only Osteoarthritis Pacemaker (~2011) Medtronic Model: A2DR01 04/11/2017 Dual-chamber last check 3 mo ago Sleep apnea 2L N/C at hs Thyroid nodule Past Family History Family History Other No family history of adverse response to anesthesia Past Surgical History Surgical History History of arthroscopy of left knee History of bilateral cataract extraction History of cardiac cath 2005 with 1 stent placed @ [place] History of colonoscopy History of dilatation and curettage History of facial surgery metal plate under left eye/left cheek History of parathyroidectomy partial @ [facility] History of partial hysterectomy History of permanent cardiac pacemaker placement medtronic History of tooth extraction all teeth S/P excision of lipoma Social History Smoking Status: Never smoker Do You Dip or Chew Tobacco: No Hx Alcohol Use: Yes Alcohol type: wine alcohol intake frequency: holidays/special occasions only Hx Substance Use: No substance use type: does not use
[~2021-04-27 10:03] MED LIST changes: +ACETAMINOPHEN 1000 MG/100 ML IV IV ONE; -AMLO-110 PO; -ASCO10003 PO; -CYNI1000 SQ; -DILT120C51 PO; -FURO-85 PO; -HYDR-3419 PO; +LR 15ML/HR IV SCH; -METO25TA3 PO; -OMEG12006 PO; -PERI8TAB4 PO; -SENN-104 PO; -SPIR25TA PO; +cefOXitin 2,000 MG in DEXTROSE 5% 50 ML IV SCH; +fentaNYL citrate 100 MCG/2 ML VIAL ONE
[2021-04-27] MEDS ORDERED: LIDOCAINE 2% 2 ML VIAL/AMP(20MG/ML) INFIL ONE (10:11)
[2021-04-27] MEDS ORDERED: PROPOFOL IV EMULSION 10 MG/ML 20 ML VIAL IV ONE (10:11)
[2021-04-27] MEDS ORDERED: ROCURONIUM BROMIDE 10 MG/ML 5 ML VIAL IV ONE (10:12)
[2021-04-27] MEDS ORDERED: GLYCOPYRROLATE 0.2 MG/ML VIAL ONE ×2 (10:12)
[2021-04-27] MEDS ORDERED: ONDANSETRON INJ 2 MG/ML 2 ML VIAL ONE (10:12)
[2021-04-27] MEDS ORDERED: DEXAMETHASONE SOD INJ 4 MG/ML VIAL ONE (10:12)
[2021-04-27] MEDS ORDERED: NEOSTIGMINE METHYLSULFATE 1 MG/ML 10ML VIAL ONE (10:12)
[2021-04-27] MEDS ORDERED: LABETALOL HCL IV 5 MG/ML 20ML IV PRN (10:53)
[2021-04-27] MEDS ORDERED: ATROPINE SULFATE 0.1 MG/ML 10ML SYR IV PRN (10:53)
[2021-04-27] MEDS ORDERED: ePHEDrine sulfate 50 MG/ML AMP IV PRN (10:53)
--- NOTE | 2021-04-27 11:01 | History & Physical Report ---
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 She is now status post cardiac clearance. We discussed the risks and benefits of surgery. She is agreeable to proceed. We will proceed with laparoscopic, possible open right hemicolectomy. 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 She is now status post cardiac clearance. Allergies Allergy/AdvReac Type Severity Reaction Status Date / Time alendronate sodium Allergy Intermediate Wheezing, Verified 04/27/21 10:31 shortness of breath. ezetimibe Allergy Intermediate Muscle Verified 04/27/21 10:31 pain. ibandronate sodium Allergy Intermediate trouble Verified 04/27/21 10:31 [From Maria Fernanda] swallowing Iodinated Contrast Media Allergy Intermediate Wheezing Verified 04/27/21 10:31 simvastatin Allergy Intermediate Muscle Verified 04/27/21 10:31 pain. Thiazides Allergy Intermediate wheezing Verified 04/27/21 10:31 erythromycin base Allergy Mild Nausea Verified 04/27/21 10:31 red dye Allergy Mild RASH Verified 04/27/21 10:31 amiodarone Allergy shortness Verified 04/27/21 10:31 of breath morphine Allergy Verified 04/27/21 10:31 metoprolol AdvReac must be Verified 04/01/21 16:27 caraco brand Home Medications Medication Instructions Recorded Confirmed Type acetaminophen 500 mg tablet 1,000 mg PO BID 01/13/21 04/27/21 History ascorbic acid (vitamin C) 1,000 mg 1 g PO QAM 01/13/21 04/27/21 History tablet (Vitamin C) aspirin 81 mg tablet,delayed 81 mg PO QAM 01/13/21 04/27/21 History release (Aspirin Low Dose) atorvastatin 40 mg tablet 40 mg PO HS 01/13/21 04/27/21 History calcitriol 1 mcg/mL oral solution 1 mcg PO 3XWK 01/13/21 04/27/21 History cyanocobalamin (vitamin B-12) 1,000 mcg PO 3XWK 01/13/21 04/27/21 History 1,000 mcg tablet (Vitamin B-12) denosumab 60 mg/mL subcutaneous 60 mg SUBCUT UD 01/13/21 04/27/21 History syringe (Prolia) duloxetine 20 mg capsule,delayed 20 mg PO QAM 01/13/21 04/27/21 History release furosemide 20 mg tablet 40 mg PO QAM 01/13/21 04/27/21 History latanoprost (PF) 0.005 % eye drops 1 drp OPHTHALMIC (EYE) PM 01/13/21 04/27/21 History lorazepam 0.5 mg tablet 0.5 mg PO DAILY PRN 01/13/21 04/27/21 History losartan 100 mg tablet 100 mg PO QAM 01/13/21 04/27/21 History omeprazole 20 mg tablet,delayed 20 mg PO QAM 01/13/21 04/27/21 History release sennosides 8.6 mg-docusate sodium 2 tab-cap PO HS 01/13/21 04/27/21 History 50 mg capsule zinc 50 mg tablet 50 mg PO QAM 01/13/21 04/27/21 History ferrous fumarate-vitamin C 132 1 tab PO DAILY@12 02/13/21 04/27/21 History mg-250 mg tablet metoprolol succinate 100 mg 200 mg PO BID #120 tab 02/18/21 04/27/21 Rx tablet,extended release 24 hr spironolactone 25 mg tablet 25 mg PO QAM 04/01/21 04/27/21 History Past Med/Surg History Medical History A-fib initially dx 4 years ago - 1 episode - resolved spontaneously and no known reccurrence until 01/2021 (hospitalized for at [facility]) -- pt states no AC because of fall risk Abnormal EKG per pt, EKG on 03/31/[address] Hood with changes suggesting possible blockage -- no plans for a cath Ambulates with cane Anemia Cardiac murmur Chronic kidney disease (CKD), stage III (moderate) follows with Dr. Lee Colon cancer dx 12/2020 Depression Frequent falls GERD (gastroesophageal reflux disease) Glaucoma History of COVID-19 diagnosed 02/2020 @ [facility]--fever, headache, cough, loss of taste/smell--no issues now History of recent hospitalization 01/2021 [facility] A-fib, CHF Myocardial Infarction (~2005) follows with Poli Zepeda PA-C @ [facility] On home oxygen therapy 2 L n/c at hs only Osteoarthritis Pacemaker (~2011) Medtronic Model: A2DR01 04/11/2017 Dual-chamber last check 3 mo ago Sleep apnea 2L N/C at hs Thyroid nodule Surgical History History of arthroscopy of left knee History of bilateral cataract extraction History of cardiac cath 2005 with 1 stent placed @ [place] History of colonoscopy History of dilatation and curettage History of facial surgery metal plate under left eye/left cheek History of parathyroidectomy partial @ [facility] History of partial hysterectomy History of permanent cardiac pacemaker placement medtronic History of tooth extraction all teeth S/P excision of lipoma Family History Other No family history of adverse response to anesthesia Social History Smoking Status: Never smoker Second Hand Exposure: No; Do You Dip or Chew Tobacco: No; Hx Alcohol Use: No Hx Substance Use: No Preferred Language: Yoruba Communication Ability: Effective Body Mechanic Required: No Beliefs That Will Affect Care: None Current Living Situation: Alone How many Children do You have: 5 Feels Safe at Home: Yes Safety Concerns: Feels Safe At This Time Assistive Devices: Cane Review of Systems Review of Systems: All systems reviewed & are unremarkable except as noted in HPI & below Physical Exam Constitutional: WD/WN, vitals as above Neck: trachea midline, no thyromegaly Respiratory: normal respiratory effort; no respiratory distress and no labored breathing Cardiovascular: Rate/Rhythm: regular rate and regular rhythm Gastrointestinal (Abdomen): normal bowel sounds, soft, nontender, no hepatosplenomegaly Musculoskeletal: Extremities: no cyanosis and no clubbing Skin: no rashes, warm and dry Psychiatric: A+Ox3, euthymic affect Results & Data Results & Data ([facility]) Vital Signs (Past 12 Hours) Vital Signs Temp Pulse Resp BP Pulse Ox 04/27/21 10:25 36.7 C 85 20 134/75 97
[2021-04-27] MEDS ORDERED: BUPIVACAINE 0.5 % 5 MG/1 ML MPF 30ML VIAL ONE (11:05)
[2021-04-27] MEDS ORDERED: LABETALOL HCL IV 5 MG/ML 20ML IV ONE (12:10)
[2021-04-27] MEDS ORDERED: PHENYLEPHRINE 100MCG/ML 5ML SYR ONE (12:46)
[2021-04-27] MEDS ORDERED: fentaNYL citrate 100 MCG/2 ML VIAL ONE (13:05)
--- NOTE | 2021-04-27 13:35 | Post Operative Brief Note ---
Immediate Post Op Note v1 Date of Surgery April 27, 2021 Pre & Post Diagnosis Operation Date: 04/27/21 11:35 Pre-Op Diagnosis: Malignant Neoplasm of Ascending Colon Post-Op Diagnosis: Malignant Neoplasm of Ascending Colon I identified the patient and participated in the time-out.: Yes Procedure Operation Date: 04/27/21 11:35 Actual Procedures p Right Laparoscopic Hemicolectomy(Right) - Ashok Salamanca MD Surgeon Ashok Salamanca MD Manager Pe RAMYA Contreras; assisted with tissue retraction; camera operation; closure Estimated Blood Loss 10 Findings Consistent with Post-Op Diagnosis Drains Heller Catheter
--- NOTE | 2021-04-27 13:47 | Operative Report ---
Post Operative Report Pre & Post Diagnosis Operation Date: 04/27/21 11:35 Pre-Op Diagnosis: Malignant Neoplasm of Ascending Colon Post-Op Diagnosis: Malignant Neoplasm of Ascending Colon I identified the patient and participated in the time-out.: Yes Procedure Operation Date: 04/27/21 11:35 Actual Procedures p Right Laparoscopic Hemicolectomy(Right) - Ashok Salamanca MD Surgeon Ashok Salamanca MD Social Science Teacher RAMYA Contreras; assisted with tissue retraction; camera operation; closure Estimated Blood Loss 10 Findings Consistent with Post-Op Diagnosis Large mass in the cecum; no visible or palpable liver nodules; some palpable lymph nodes within the mesentery. Specimens Right hemicolectomy, including cecum, appendix, terminal ileum Anesthesia Type General Complications No immediate complications Indications Adenocarcinoma of the right colon Description of Procedure The patient was taken to the operating room, placed supine on the operating table. A timeout was performed, perioperative antibiotics were administered, SCD boots were placed. After adequate anesthesia and analgesia was obtained, a Heller catheter was placed, and the area was prepped and draped in the normal s terile fashion. Incision was made in the supraumbilical region carried down to the level of fascia. The fascia was grasped with a trach hook, and a varies needle was used to enter the abdominal cavity. The abdomen was insufflated to a pressure of 15 mmHg, and a 12 mm trocar was placed in this location. The abdomen was inspected. There is no evidence of gross metastatic disease within the abdo malcolm cavity or peritoneal seeding. Two 5 mm trochars were placed along the left side and 1 in the right lower quadrant. The patient was placed in slight Trendelenburg and airplane and to the left. The right colon was grasped and retracted anteriorly and medially. This exposed the pedicle of the ileocolic/right colic artery. The harmonic device was used to skeletonize the blood vessels, and they were transected with a Endo LESLIE stapler, vascular load, at their base. The mesentery was then divided with blunt dissection and judicious use of the harmonic scalpel to a point on the terminal ileum and subsequently to a point on the transverse colon. Care was taken to avoid injury to the duodenum which was swept down and kept out of the dissection field. The lateral attachments of the colon to the abdominal and pelvic sidewall were taken down off the white line of Toldt with the energy device. This completely freed up the entire right colon from the terminal ileum around to the transverse colon. At this point the incision in the midline was increased down around the umbilicus, and a wound protector was placed. The right colon was brought up and out through this incision. Sites were selected on the terminal ileum and the transverse colon, and they were transected with a LESLIE stapler. A [id number], functional end-to-end anastomosis between the terminal ileum and the transverse colon was created with a LESLIE stapler as well as a TA stapler. The mesenteric defect was closed with a running 2-0 Vicryl suture. A crotch stitch was placed of 3-0 silk. The anastomosis appeared pink and viable and with a good blood supply. The abdomen was copiously irrigated and suctioned free, and the bowel was reduced back into the abdomen. Hemostasis was checked and was excellent. The fascia in the midline was closed with running #1 PDS suture. The skin was closed with running 4-0 Monocryl subcuticular stitch. Dermabond was applied. The patient tolerated the procedure without complication, and was transferred in stable condition to the PACU. All instrument, needle, and sponge counts were correct at the end of the case. My physician assistant psychiatry was necessary throughout the procedure for tissue retraction, possible camera operation, and closure of the wounds. I understand that section 1842(b)(7)(D) of the Social Security act generally prohibits Medicare physician fee schedule payment for the services of assistants at surgery in teaching hospitals when qualified residents are available to furnish such services. I certify that the services for which payment is claimed were medically necessary and that no qualified resident was available to perform the services. I further understand that these services are subject to postpayment review by the Medicare carrier. I attest to the content of the Intraoperative Record and any orders documented therein. Any exceptions are noted below.
[2021-04-27] MEDS: fentaNYL citrate 100 MCG/2 ML VIAL IV PRN ×8 (14:13→15:37)
[2021-04-27] MEDS ORDERED: ONDANSETRON INJ 2 MG/ML 2 ML VIAL IV PRN (14:37)
--- NOTE | 2021-04-27 14:59 | Hospitalist Consultation ---
Date of Consultation April 27, 2021 Assessment & Plan (1) Colon adenocarcinoma: (2) S/P right hemicolectomy: This is an 85yo F with a PMH of colon adenocarcinoma, paroxysmal atrial fibrillation not on anticoagulation due to fall risk, chronic diastolic heart failure, s/p pacemaker, CKD III, MARTI on 2L NC O2 HS and other medical problems listed below who is POD #0 s/p R Laparoscopic Hemicolectomy by Dr. Salamanca. Per surgery for pain control, wound care, diet, anticoagulation and activities Monitor H&H, continue incentive spirometry, PT/OT when appropriate Due to establish with Dr. Hawkins of med onc on May 22 (3) Chronic diastolic heart failure: Appears euvolemic. Will hold home lasix dose in AM until assessed and labs reviewed (4) Paroxysmal atrial fibrillation: Continue Toprol 200mg BID. Not on anticoagulation due to h/o bleeding and frequent falls (5) Chronic kidney disease (CKD), stage III (moderate): Baseline Cr 1.2-1.3. Monitor with daily BMP (6) Pacemaker: H/o sinus bradycardia s/p PM placement (7) Depression: (8) Anxiety: Continue duloxetine, home PRN Ativan (9) Sleep apnea: 2L NC O2 HS DVT Ppx: Per surgical service Code status: FULL PCP: [facility] Dispo: Observation med tele Patient seen in collaboration with Dr. Adan. Please see addendum. Supervising Physician Co-Signing Physician Notes Pt was seen and examined. Agreed with Sharyn BUI exam, assessment. 85yo F with a PMH of colon adenocarcinoma, paroxysmal atrial fibrillation not on anticoagulation due to fall risk, chronic diastolic heart failure, s/p pacemaker, CKD III, MARTI on 2L NC O2 HS and other medical problems listed below who is POD #0 s/p R Laparoscopic Hemicolectomy by Dr. Salamanca. No postop complication. continue incentive spirometry. Continue monitor H/H. MD Loco History of Present Illness Reason for Consultation: post op medical mgmt Attending Physician: Ashok Salamanca MD History of Present Illness This is an 85yo F with a PMH of colon adenocarcinoma, paroxysmal atrial fibrillation not on anticoagulation due to fall risk, chronic diastolic heart failure, s/p pacemaker, CKD III, MARTI on 2L NC O2 HS and other medical problems listed below who is POD #0 s/p R Laparoscopic Hemicolectomy by Dr. Salamanca. Was diagnosed with colon carcinoma in Dec 2020. As part of pre-op, underwent a cardiac catheterization earlier this month that was prompted by abnormal EKG and stress test. Cath was normal. Patient due to establish with Dr. Hawkins of [facility] onc on this April for chemotherapy. Feeling ok post-operatively with R lowed abd surgical site pain. Also endorses mild headache. No F/C, lightheadedness, headache, CP, SOB, N/V, dysuria. Heller catheter in place. Allergies Allergy/AdvReac Type Severity Reaction Status Date / Time alendronate sodium Allergy Intermediate Wheezing, Verified 04/27/21 10:31 shortness of breath. ezetimibe Allergy Intermediate Muscle Verified 04/27/21 10:31 pain. ibandronate sodium Allergy Intermediate trouble Verified 04/27/21 10:31 [From Boniva] swallowing Iodinated Contrast Media Allergy Intermediate Wheezing Verified 04/27/21 10:31 simvastatin Allergy Intermediate Muscle Verified 04/27/21 10:31 pain. Thiazides Allergy Intermediate wheezing Verified 04/27/21 10:31 erythromycin base Allergy Mild Nausea Verified 04/27/21 10:31 amiodarone Allergy shortness Verified 04/27/21 10:31 of breath morphine Allergy Verified 04/27/21 10:31 metoprolol AdvReac must be Verified 04/01/21 16:27 caraco brand Home Medications Medication Instructions Recorded Confirmed Type acetaminophen 500 mg tablet 500 mg PO Q6H PRN 01/13/21 04/27/21 History ascorbic acid (vitamin C) 1,000 mg 1 g PO QAM 01/13/21 04/27/21 History tablet (Vitamin C) aspirin 81 mg tablet,delayed 81 mg PO QAM 01/13/21 04/27/21 History release (Aspirin Low Dose) atorvastatin 40 mg tablet 40 mg PO HS 01/13/21 04/27/21 History calcitriol 1 mcg/mL oral solution 1 mcg PO DAILY 01/13/21 04/27/21 History cyanocobalamin (vitamin B-12) 1,000 mcg PO 3XWK 01/13/21 04/27/21 History 1,000 mcg tablet (Vitamin B-12) denosumab 60 mg/mL subcutaneous 60 mg SUBCUT UD 01/13/21 04/27/21 History syringe (Prolia) duloxetine 20 mg capsule,delayed 20 mg PO QAM 01/13/21 04/27/21 History release furosemide 20 mg tablet 40 mg PO QAM 01/13/21 04/27/21 History latanoprost (PF) 0.005 % eye drops 1 drp OPHTHALMIC (EYE) PM 01/13/21 04/27/21 History lorazepam 0.5 mg tablet 0.5 mg PO DAILY PRN 01/13/21 04/27/21 History omeprazole 20 mg tablet,delayed 20 mg PO QAM 01/13/21 04/27/21 History release sennosides 8.6 mg-docusate sodium 2 tab-cap PO HS 01/13/21 04/27/21 History 50 mg capsule zinc 50 mg tablet 50 mg PO QAM 01/13/21 04/27/21 History ferrous fumarate-vitamin C 132 1 tab PO DAILY@12 02/13/21 04/27/21 History mg-250 mg tablet metoprolol succinate 100 mg 200 mg PO BID #120 tab 02/18/21 04/27/21 Rx tablet,extended release 24 hr spironolactone 25 mg tablet 25 mg PO QAM 04/01/21 04/27/21 History Patient History Medical History Ambulates with cane Anemia Anxiety Cardiac murmur Chronic diastolic heart failure Chronic kidney disease (CKD), stage III (moderate) follows with Dr. Butler Depression Frequent falls history of R iliopsoas hematoma Sep 2019 after a fall GERD (gastroesophageal reflux disease) Glaucoma History of COVID-19 diagnosed 02/2020 @ [facility]--fever, headache, cough, loss of taste/smell--no issues now Hyperparathyroidism for conservative management Labile blood pressure hx of vasovagal syncope Myocardial Infarction (~2005) follows with Poli Zepeda PA-C @ [place] Osteoarthritis Osteoporosis Pacemaker (~2011) Medtronic Model: A2DR01 04/11/2017 Dual-chamber last check 3 mo ago Paroxysmal atrial fibrillation Not on ac due to fall risk and bleeding hx Sleep apnea 2L N/C at hs Thyroid nodule Surgical History History of arthroscopy of left knee History of bilateral cataract extraction History of cardiac cath 2005 with 1 stent placed @ [place] History of colonoscopy History of dilatation and curettage History of facial surgery metal plate under left eye/left cheek History of parathyroidectomy partial @ [facility] History of partial hysterectomy History of permanent cardiac pacemaker placement medtronic History of tooth extraction all teeth S/P excision of lipoma Status post subtotal parathyroidectomy 2009 R inferior adenoma Family History Other Cancer Diabetes No family history of adverse response to anesthesia Social History Smoking Status: Never smoker Second Hand Exposure: No; Do You Dip or Chew Tobacco: No; Hx Alcohol Use: No Hx Substance Use: No Preferred Language: Luxembourgish Communication Ability: Effective O And M Supervisor Required: No Beliefs That Will Affect Care: None Current Living Situation: Alone How many Children do You have: 5 Feels Safe at Home: Yes Safety Concerns: Feels Safe At This Time Assistive Devices: Oxygen - at Night Review of Systems Review of Systems: At least ten systems reviewed and negative except as noted in the HPI. Physical Exam Physical Exam: General Appearance: WD/WN, vitals as above, NAD, lying in bed, pleasant, conversing easily Head: normocephalic, atraumatic Eyes: normal inspection, PERRL, conjunctivae normal, anicteric sclerae ENT: external ear and nose normal, oropharynx normal Neck: normal visual inspection, trachea midline, no thyromegaly Respiratory: normal respiratory effort, lungs clear to auscultation, no wheeze, rales, rhonchi. No accessory muscle use Cardiovascular: irregular rate & rhythm, normal peripheral pulses, no BLE edema. Vessels: no JVD Chest: normal inspection of chest Abdomen/GI: Laparoscopic incisions c/d/i. Soft, nontender, no hepatosplenomegaly Extremities/Musculoskeletal: no cyanosis or clubbing, extremities motor strength 5/5 Neurologic: PERRL, EOMI, accommodation nl, no face palsy, no dysarthria, CN's II-XI intact bilaterally and moves all extremities Psychiatric: A+Ox3, euthymic affect Skin: no rashes, normal color, warm/dry Results & Data Results & Data ([facility]) Vital Signs (Past 12 Hours) Vital Signs Temp Pulse Pulse Resp BP BP Pulse Ox 02/28/22 14:50 103 H 14 118/71 97 04/27/21 14:40 96 H 15 146/99 H 95 04/27/21 14:30 98 H 15 144/88 H 100 04/27/21 14:20 99 H 13 150/108 H 100 04/27/21 14:10 108 H 15 141/82 H 100 04/27/21 14:01 36.1 C L 107 H 16 143/98 H 100 04/27/21 10:25 36.7 C 85 20 134/75 97 Laboratory Results [facility] 04/27/21 16:26 Creatinine 1.36 H
--- NOTE | 2021-04-27 15:05 | Anesthesiology Progress Note ---
Date of Service April 27, 2021 Anesthesia Post Procedure Vital Signs Vital Signs: Temp Pulse Pulse Resp BP BP Pulse Ox 04/27/21 15:00 96.8 F L 99 H 17 130/79 94 04/27/21 14:50 103 H 14 118/71 97 04/27/21 14:40 96 H 15 146/99 H 95 04/27/21 14:30 98 H 15 144/88 H 100 04/27/21 14:20 99 H 13 150/108 H 100 04/27/21 14:10 108 H 15 141/82 H 100 04/27/21 14:01 97.0 F L 107 H 16 143/98 H 100 04/27/21 10:25 98.1 F 85 20 134/75 97 Pain Intensity Abdomen: Pain Intensity: 4 Transfer of Care Handoff Completed per policy Notes Mental Status: alert / awake / arousable and participated in evaluation Patient Amnestic to Procedure: Yes Nausea / Vomiting: adequately controlled Pain: adequately controlled Airway Patency, RR, SpO2: stable & adequate BP & HR: stable & adequate Hydration State: stable & adequate Anesthetic Complications: no major complications apparent and Pt Satisfied with anesthetic care
[2021-04-27] MEDS: LACTATED RINGER'S 1,000 ML IV SCH (16:30)
[2021-04-27] MEDS ORDERED: oxyCODONE/ACETAMINOPHEN 5mg/325mg TAB PO PRN (16:32)
[2021-04-27] MEDS ORDERED: traMADol HCL 50 MG TABLET PO PRN (16:32)
[2021-04-27] MEDS ORDERED: KETOROLAC TROMETHAMINE 15 MG/ML VIAL IV PRN (16:32)
[2021-04-27] MEDS ORDERED: MoRPHine SULFATE 2 MG/ML CARP IV PRN (16:32)
[2021-04-27 17:12] LABS: Creatinine Clr Calc Pharmacy 35.1 ml/min; Est GFR (African American) 41.6 ml/min; Est GFR (Non-African American) 35.9 ml/min
[2021-04-27] MEDS ORDERED: ACETAMINOPHEN 500 MG TAB PO PRN (17:55)
[2021-04-27] MEDS ORDERED: SODIUM CHLORIDE 0.65% NA SOLN 45 ML (OCEAN) ONE (20:33)
[2021-04-27] MEDS: ATORVASTATIN 40 MG TAB PO SCH (21:20)
[2021-04-27] MEDS: METOPROLOL SUCC 50MG EXT REL TAB PO SCH (21:20)
[2021-04-27] MEDS: CYANOCOBALAMIN (B-12) 500 MCG TABLET PO SCH (21:20)
[2021-04-27] MEDS: LATANOPROST 0.005% OP SOLN 2.5 ML BTL OP SCH (21:23)
[2021-04-27] MEDS: LORazepam 0.5 MG TAB PO PRN (23:41)
[2021-04-28] MEDS: PANTOprazole 40 MG TAB PO SCH (03:26)
[2021-04-28 08:10] LABS: Basophils # (auto) 0.01 K/uL (0-0.2); Basophils % (auto) 0.1 %; Eosinophils # (auto) 0.02 K/uL (0-0.5); Eosinophils % (auto) 0.2 %; Hematocrit (blood only) 28.8 % (37-47); Hemoglobin 8.8 g/dL (12.0-16.0); Immature Granulocytes # (auto) 0.04 K/uL (0.00-0.02); Immature Granulocytes % (auto) 0.3 %; Lymphocytes # (auto) 1.51 K/uL (1.2-3.4); Lymphocytes % (auto) 12.7 %; Mean Corpuscular Hemoglobin 28.3 pg (25-34); Mean Corpuscular Hgb Conc 30.6 g/dL (32-36); Mean Corpuscular Volume 92.6 fL (80-100); Monocytes # (auto) 1.43 K/uL (0.11-0.59); Neutrophils # (auto) 8.89 K/uL (1.4-6.5); Neutrophils % (auto) 74.7 %; Platelet Count 254 K/uL (130-400); RDW Coefficient of Variation 17.3 % (11.5-14.5); RDW Standard Deviation 58.7 fL (36.4-46.3); Red Blood Count 3.11 M/uL (4.2-5.4)
[2021-04-28] MEDS: ACETAMINOPHEN 1,000 MG/100 ML VIAL IV SCH ×2 (08:19→15:40)
[2021-04-28] MEDS: KETOROLAC TROMETHAMINE 15 MG/ML VIAL IV SCH ×3 (08:20→19:47)
[2021-04-28] MEDS: ZINC SULFATE 220 MG CAPSULE PO SCH (08:29)
[2021-04-28] MEDS: ASPIRIN 81 MG ECTAB PO SCH (08:29)
[2021-04-28] MEDS: DULoxetine HCL 20 MG CAP PO SCH (08:30)
[2021-04-28] MEDS: CALCITRIOL 0.25 MCG CAPSULE PO SCH (08:30)
[2021-04-28] MEDS: METOPROLOL SUCC 50MG EXT REL TAB PO SCH (08:30)
[2021-04-28] MEDS: ASCORBIC ACID 500 MG TAB PO SCH ×2 (08:31→12:00)
[2021-04-28 08:44] LABS: Albumin Globulin Ratio 1.5 (0.9-2); Albumin Level 3.3 gm/dl (3.4-5.0); BUN Creatinine Ratio 18.7 (10-20); Bilirubin,Total 0.6 mg/dl (0.2-1.0); Calcium 8.3 mg/dl (8.5-10.1); Creatinine Clr Calc Pharmacy 28.4 ml/min; Est GFR (African American) 31.5 ml/min; Est GFR (Non-African American) 27.2 ml/min; Globulin 2.2 gm/dl (2.5-4.0); Potassium 4.7 mmol/L (3.5-5.1); Total Protein 5.5 gm/dl (6.0-8.3)
[2021-04-28] MEDS ORDERED: ENOXAPARIN INJ 30 MG/0.3 ML SYR SQ SCH (09:00)
[2021-04-28] MEDS ORDERED: SPIRONOLACTONE 25 MG TAB PO SCH (09:00)
[2021-04-28] MEDS ORDERED: PANTOprazole 40 MG TAB PO SCH (09:00)
--- NOTE | 2021-04-28 09:22 | Surgery Progress Note ---
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 She is doing quite well. I have stopped her oral pain medication and added scheduled Toradol and acetaminophen. We are using low-dose Toradol due to her kidney disease. DVT prophylaxis with SCDs and enoxaparin. We will encourage out of bed to chair today. Aggressive pulmonary toilet with incentive spirometry. We will continue to monitor. Clear liquid diet as tolerated. Admission and Anticipated Discharge Date Admission Date: April 27, 2021 Subjective Postop day 1 status post laparoscopic right hemicolectomy for colon cancer. She is having some pain this morning. It appears that she was not getting IV pain medications, only oral. She has had some mild nausea. She denies bowel movement or flatus. Physical Exam Constitutional: WD/WN, vitals as above Neck: trachea midline, no thyromegaly Gastrointestinal (Abdomen): Inspection/Auscultation: abdomen normal to inspection, + abdomen distended (Mild) and + abdominal surgical incision (Dermabond in place, healing well without erythema or discharge) Percussion/Palpation: + abdomen tender (Mild diffuse) and abdomen soft; no guarding and abdomen not rigid Musculoskeletal: Extremities: no cyanosis and no clubbing Skin: no rashes, warm and dry Psychiatric: A+Ox3, euthymic affect Results & Data ([facility]) Vital Signs (Past 12 Hours) Vital Signs Temp Pulse Pulse Resp BP BP Pulse Ox 04/28/21 07:16 36.9 C 95 H 19 131/79 94 04/28/21 03:04 37.3 C 91 H 19 115/72 97 04/27/21 23:11 108 H 04/27/21 23:05 37.3 C 103 H 24 108/61 99 04/27/21 21:18 94 H 119/78 Laboratory Results 04/28/21 04/28/21 04/27/21 Range/Units 07:39 07:39 Unknown WBC 11.90 H (4.8-10.8) K/uL RBC 3.11 L (4.2-5.4) M/uL Hgb 8.8 L (12.0-16.0) g/dL Hct 28.8 L (37-47) % MCV 92.6 (80-100) fL MCH 28.3 (25-34) pg MCHC 30.6 L (32-36) g/dL RDW Std Deviation 58.7 H (36.4-46.3) fL RDW Coeff of Nicholas 17.3 H (11.5-14.5) % Plt Count 254 (130-400) K/uL MPV 9.0 (7.4-10.4) fL Immature Gran % (Auto) 0.3 % Neut % (Auto) 74.7 % Lymph % (Auto) 12.7 % [place] % (Auto) 12.0 % Eos % (Auto) 0.2 % Baso % (Auto) 0.1 % Neut # (Auto) 8.89 H (1.4-6.5) K/uL Lymph # (Auto) 1.51 (1.2-3.4) K/uL [place] # (Auto) 1.43 H (0.11-0.59) K/uL Eos # (Auto) 0.02 (0-0.5) K/uL Baso # (Auto) 0.01 (0-0.2) K/uL Immature Gran # (Auto) 0.04 H (0.00-0.02) K/uL Sodium 130 L (136-145) mmol/L Potassium 4.7 (3.5-5.1) mmol/L Chloride 100 (98-107) mmol/L Carbon Dioxide 25 (21-32) mmol/L Anion Gap 5 (3-11) BUN 32 H (6-23) mg/dl Creatinine 1.71 H D (0.6-1.2) mg/dl Est Cr Clr Drug Dosing 28.4 ml/min Est GFR ( Amer) 31.5 ml/min Est GFR (Non-Af Amer) 27.2 ml/min BUN/Creatinine Ratio 18.7 (10-20) Glucose 118 H (70-99(Fasting)) mg/dl Calcium 8.3 L (8.5-10.1) mg/dl Total Bilirubin 0.6 (0.2-1.0) mg/dl AST 13 (13-39) U/L ALT 9 (7-52) U/L Alkaline Phosphatase 41 (34-104) U/L Total Protein 5.5 L (6.0-8.3) gm/dl Albumin 3.3 L (3.4-5.0) gm/dl Globulin 2.2 L (2.5-4.0) gm/dl Albumin/Globulin Ratio 1.5 (0.9-2) SARS-CoV-2, RNA, NAAT NEGATIVE (NEGATIVE) Blood Type Antibody Screen 04/27/21 04/27/21 Range/Units 16:26 10:28 WBC (4.8-10.8) K/uL RBC (4.2-5.4) M/uL Hgb (12.0-16.0) g/dL Hct (37-47) % MCV (80-100) fL MCH (25-34) pg MCHC (32-36) g/dL RDW Std Deviation (36.4-46.3) fL RDW Coeff of Nicholas (11.5-14.5) % Plt Count (130-400) K/uL MPV (7.4-10.4) fL Immature Gran % (Auto) % Neut % (Auto) % Lymph % (Auto) % [place] % (Auto) % Eos % (Auto) % Baso % (Auto) % Neut # (Auto) (1.4-6.5) K/uL Lymph # (Auto) (1.2-3.4) K/uL [place] # (Auto) (0.11-0.59) K/uL Eos # (Auto) (0-0.5) K/uL Baso # (Auto) (0-0.2) K/uL Immature Gran # (Auto) (0.00-0.02) K/uL Sodium (136-145) mmol/L Potassium (3.5-5.1) mmol/L Chloride (98-107) mmol/L Carbon Dioxide (21-32) mmol/L Anion Gap (3-11) BUN (6-23) mg/dl Creatinine 1.36 H (0.6-1.2) mg/dl Est Cr Clr Drug Dosing 35.1 ml/min Est GFR ( Amer) 41.6 ml/min Est GFR (Non-Af Amer) 35.9 ml/min BUN/Creatinine Ratio (10-20) Glucose (70-99(Fasting)) mg/dl Calcium (8.5-10.1) mg/dl Total Bilirubin (0.2-1.0) mg/dl AST (13-39) U/L ALT (7-52) U/L Alkaline Phosphatase (34-104) U/L Total Protein (6.0-8.3) gm/dl Albumin (3.4-5.0) gm/dl Globulin (2.5-4.0) gm/dl Albumin/Globulin Ratio (0.9-2) SARS-CoV-2, RNA, NAAT (NEGATIVE) Blood Type O Positive Antibody Screen NEGATIVE
[2021-04-28] MEDS ORDERED: FERROUS FUMARATE PO SCH (12:00)
[2021-04-28] MEDS ORDERED: [UNRECOGNIZED DRUG - OTHER] PO SCH (12:00)
[2021-04-28] MEDS: LACTATED RINGER'S 1,000 ML IV SCH (12:39)
[2021-04-28] MEDS: FERROUS SULFATE 325 MG TAB PO SCH (15:40)
--- NOTE | 2021-04-28 16:01 | Hospitalist Progress Note ---
Date of Service April 28, 2021 Assessment & Plan (1) Colon adenocarcinoma: (2) S/P right hemicolectomy: Plan: This is an 85yo F with a PMH of colon adenocarcinoma, paroxysmal atrial fibrillation not on anticoagulation due to fall risk, chronic diastolic heart failure, s/p pacemaker, CKD III, MARTI on 2L NC O2 HS, s/p R Laparoscopic Hemicolectomy by Surgery Dr. 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 No postop complications Hgb dropped to 8.8 Incentive spirometry Continue PPI Clear liquid diet as tolerated Continue pain control as PRN (3) Chronic diastolic heart failure: Plan: Continue to hold home lasix dose Monitor closely while off lasix and on gentle IV fluid Continue monitor closely (4) Paroxysmal atrial fibrillation: Plan: Continue Toprol 200mg BID. Not on anticoagulation due to h/o bleeding and frequent falls (5) Chronic kidney disease (CKD), stage III (moderate): Plan: Acute kidney injury Creatinine increased to 1.7 today, baseline creatinine 1-1.2 Continue to hold home lasix dose Continue gentle IVF Monitor closely for volume overload Continue monitor BMP (6) Pacemaker: Plan: H/o sinus bradycardia s/p PM placement (7) Depression: (8) Anxiety: Plan: Continue duloxetine, home PRN Ativan (9) Sleep apnea: Plan: 2L NC O2 HS DVT Ppx: Per surgical service Code status: FULL Disposition as per ortho Admission and Anticipated Discharge Date Admission Date: April 27, 2021 Subjective Pt was seen and examined for post op follow up Pt said that she feels ok She said that after she ate early that she had some heartburn Pt said that her pain is controlled Denies any chest pain, palpitation, dizziness and SOB Review of Systems Review of Systems: All systems reviewed & are unremarkable except as noted in Subjective Physical Exam Physical Exam: General- No acute distress Head- at raumatic Eyes- PER RL, EOMI, ENT- mauricio pharynx clear Neck - supple, no JVD L ungs- clear to aus cultation Heart- i rregular rhythm Ab domen- normal page l sounds, + mild a bdomen distended, +Mild abdominal te nderness, + abdomi nal surgical incis ion Percussion/Pal pation Extremities - no calf tendern ess Neuro- alert, oriented x 3; PERR L, EOMI; no facial palsy; no dysarth arlyn Skin- warm & d ry Results & Data Results & Data ([facility]) Vital Signs (Past 12 Hours) Vital Signs Temp Pulse Resp BP Pulse Ox 04/28/21 14:53 36.6 C 91 H 19 93/60 L 92 04/28/21 11:07 36.6 C 106 H 19 116/68 89 L 04/28/21 07:16 36.9 C 95 H 19 131/79 94
[2021-04-28] MEDS ORDERED: COUGH DROP (SUGAR FREE) LOZ 24 LOZ/1 BOX BUCCAL PRN (20:32)
[2021-04-28] MEDS: ATORVASTATIN 40 MG TAB PO SCH (20:39)
[2021-04-28] MEDS: LATANOPROST 0.005% OP SOLN 2.5 ML BTL OP SCH (20:39)
[2021-04-28] MEDS ORDERED: HYDROmorphone INJ 0.5 MG/0.5 ML SYR IV PRN (20:41)
[2021-04-28] MEDS: CHLORASEPTIC 1.4% SOLN 180 ML BTL MT PRN (20:53)
[2021-04-28 21:00] LABS: Basophils # (auto) 0.03 K/uL (0-0.2); Basophils % (auto) 0.3 %; Eosinophils # (auto) 0.24 K/uL (0-0.5); Eosinophils % (auto) 2.1 %; Hematocrit (blood only) 26.3 % (37-47); Hemoglobin 8.1 g/dL (12.0-16.0); Immature Granulocytes # (auto) 0.11 K/uL (0.00-0.02); Immature Granulocytes % (auto) 0.9 %; Lymphocytes % (auto) 15.5 %; Mean Corpuscular Hemoglobin 28.8 pg (25-34); Mean Corpuscular Hgb Conc 30.8 g/dL (32-36); Mean Corpuscular Volume 93.6 fL (80-100); Mean Platelet Volume 8.9 fL (7.4-10.4); Monocytes # (auto) 1.63 K/uL (0.11-0.59); Neutrophils # (auto) 7.83 K/uL (1.4-6.5); Neutrophils % (auto) 67.2 %; Platelet Count 215 K/uL (130-400); RDW Coefficient of Variation 17.7 % (11.5-14.5); RDW Standard Deviation 61.3 fL (36.4-46.3); Red Blood Count 2.81 M/uL (4.2-5.4); White Blood Count 11.64 K/uL (4.8-10.8)
--- NOTE | 2021-04-28 21:14 | Communication Note ---
Date of Service: April 28-- 04/28, 8:30 PM Patient complaining of post intubation throat discomfort as per RN. SBP 90-100s. Patient denies chest pain, S OB. serum sodium 126 from 130 (04/27) serum creatinine 1.89 [from 1.71 (04/28 AM <- 1.36 (04/27) Hemoglobin 8.1 from 8.8 (04/28 AM) Chest x-ray as per my interpretation atelectasis, cardiomegaly, hilar prominence AP Postop hypotension Progressive hyponatremia, kidney dysfunction (likely ATN) Postop anemia Decrease maintenance Toprol XL dose from 200 mg BID to 25 mg BID for now given borderline BP Baseline UA, hyponatremia work-up Change current LRS IVF to NSS Careful correction of sodium, IV hydration given history cardiomyopathy Appropriate to hold RTC NSAID rx given progressive kidney dysfunction, hyponatremia, hx CAD Favor low-dose narcotic medications (Dilaudid, oxycodone) as needed pain not controlled by Tylenol given progressive kidney dysfunction Hold duloxetine until serum sodium within normal limits Appropriate to change Lovenox to Heparin subcu given kidney dysfunction Nephrology consult if without improvement in serum sodium/kidney function with next blood draw Monitor H&H, transfuse PRBC if hemoglobin less than 8 and or for symptomatic anemia Dr. Ordaz (surgeon nutrition counselor) updated of developments and was in agreement with plan of care.
[2021-04-28 21:22] LABS: BUN Creatinine Ratio 18.5 (10-20); Calcium 8.9 mg/dl (8.5-10.1); Creatinine Clr Calc Pharmacy 25.7 ml/min; Est GFR (African American) 27.9 ml/min; Est GFR (Non-African American) 24.1 ml/min; Magnesium 1.6 mg/dl (1.7-2.4); Potassium 4.5 mmol/L (3.5-5.1)
[2021-04-28] MEDS ORDERED: SODIUM CHLORIDE 0.9% 500 ML IV ONE (21:27)
[2021-04-28] MEDS ORDERED: METOPROLOL SUCC 25MG EXT REL TAB PO STA (21:30)
[2021-04-28] MEDS: MAGNESIUM SULFATE / D5W 1 GM/100 ML BAG IV SCH (22:06)
[2021-04-28] MEDS: HEPARIN SOD 5,000 UNIT/0.5 ML VIAL SQ SCH (22:09)
[2021-04-28 23:38] LABS: Appearance Urine Clear (Clear); Bacteria Urine Automated Negative (Negative); Bilirubin Urine Negative (Negative); Blood Urine Trace (Negative); Color Urine Dark Yellow; Glucose Urine UA Negative (Negative); Ketones Urine Negative (Negative); Leukocyte Esterase Urine Negative (Negative); Nitrite Urine Negative (Negative); Protein Urine Negative (Negative); Specific Gravity Urine 1.023 (1.000-1.030); Urobilinogen Urine Negative (Negative)
[2021-04-29] MEDS ORDERED: SODIUM CHLORIDE 0.9% 1000ML 1,000 ML IV SCH
[2021-04-29] MEDS: ACETAMINOPHEN 1,000 MG/100 ML VIAL IV SCH ×4 (00:15→23:45)
[2021-04-29] MEDS: MAGNESIUM SULFATE / D5W 1 GM/100 ML BAG IV SCH (00:31)
[2021-04-29] MEDS ORDERED: ALUMINUM/MAGNESIUM/SIMETH (MAALOX MAX) 30 ML UDC PO PRN ×2 (01:03→16:00)
[2021-04-29 02:45] LABS: Basophils # (auto) 0.03 K/uL (0-0.2); Basophils % (auto) 0.3 %; Eosinophils % (auto) 4.2 %; Hemoglobin 7.5 g/dL (12.0-16.0); Immature Granulocytes # (auto) 0.06 K/uL (0.00-0.02); Immature Granulocytes % (auto) 0.6 %; Lymphocytes # (auto) 1.95 K/uL (1.2-3.4); Lymphocytes % (auto) 20.4 %; Mean Corpuscular Hemoglobin 28.8 pg (25-34); Mean Corpuscular Hgb Conc 31.3 g/dL (32-36); Mean Corpuscular Volume 92.3 fL (80-100); Mean Platelet Volume 8.6 fL (7.4-10.4); Monocytes # (auto) 1.17 K/uL (0.11-0.59); Monocytes % (auto) 12.2 %; Neutrophils # (auto) 5.95 K/uL (1.4-6.5); Neutrophils % (auto) 62.3 %; Platelet Count 205 K/uL (130-400); RDW Coefficient of Variation 17.6 % (11.5-14.5); RDW Standard Deviation 59.6 fL (36.4-46.3); White Blood Count 9.56 K/uL (4.8-10.8)
[2021-04-29 02:59] LABS: BUN Creatinine Ratio 21.4 (10-20); Calcium 8.6 mg/dl (8.5-10.1); Creatinine Clr Calc Pharmacy 30.6 ml/min; Est GFR (African American) 34.4 ml/min; Est GFR (Non-African American) 29.7 ml/min; Magnesium 2.1 mg/dl (1.7-2.4); Potassium 4.4 mmol/L (3.5-5.1)
[2021-04-29] MEDS ORDERED: SODIUM CHLORIDE 0.9% 500 ML IV ONE (03:09)
[2021-04-29 03:23] LABS: Ovalocytes 1+
[2021-04-29] MEDS ORDERED: SODIUM CHLORIDE 0.9% 250 ML IV PRN (03:30)
[2021-04-29] MEDS: SODIUM CHLORIDE 0.9% 1000ML 1,000 ML IV SCH (05:19)
[2021-04-29] MEDS: HEPARIN SOD 5,000 UNIT/0.5 ML VIAL SQ SCH (05:33)
--- NOTE | 2021-04-29 07:24 | XRay Report ---
XR chest 1V portable CLINICAL HISTORY: cough, arf TECHNIQUE: Single frontal radiograph of the chest was obtained. Comparison: Comparison is made to chest 2 views 02/17/2021 FINDINGS: Dual-lead pacemaker is seen. Cardiomegaly is noted. Lungs are underinflated. Linear densities are see n in the left greater right lung compatible with atelectasis. No evidence of pleural effusion or pneu mothorax. IMPRESSION: Underinflated lungs with atelectasis versus scarring. No definite underlying airspace opacity. ACT 112: Negative or not required by law. Electronically signed by: Brian Lynn M.D. 04/29/2021 7:23 AM
[2021-04-29 07:29] LABS: BUN Creatinine Ratio 19.7 (10-20); Calcium 8.7 mg/dl (8.5-10.1); Creatinine Clr Calc Pharmacy 28.8 ml/min; Est GFR (African American) 31.1 ml/min; Est GFR (Non-African American) 26.8 ml/min; Potassium 4.5 mmol/L (3.5-5.1)
[2021-04-29] MEDS: ASCORBIC ACID 500 MG TAB PO SCH ×2 (07:49→12:24)
[2021-04-29] MEDS: ZINC SULFATE 220 MG CAPSULE PO SCH (07:49)
[2021-04-29] MEDS: CALCITRIOL 0.25 MCG CAPSULE PO SCH (07:50)
[2021-04-29] MEDS: ASPIRIN 81 MG ECTAB PO SCH (07:50)
[2021-04-29] MEDS: CYANOCOBALAMIN (B-12) 500 MCG TABLET PO SCH (07:51)
[2021-04-29] MEDS: PANTOprazole 40 MG TAB PO SCH (07:51)
[2021-04-29] MEDS: METOPROLOL SUCC 50MG EXT REL TAB PO SCH ×2 (07:52→21:33)
[2021-04-29] MEDS ORDERED: METOPROLOL SUCC 25MG EXT REL TAB PO SCH (09:00)
[2021-04-29] MEDS ORDERED: METOPROLOL SUCC 50MG EXT REL TAB PO SCH ×2 (09:00)
--- NOTE | 2021-04-29 09:04 | Nephrology Consultation ---
Date of Consultation April 29, 2021 Assessment & Plan (1) Electrolyte and fluid disorder: sNa ann 126 this am w/ serum osms normal and urine chemistries c/w mild volume depletion. -continue NS current rate 50 mL /hr -goal sNa for tomorrow am is 131 -cont strict I/O -recheck bmp (not just Na) ordered for noon >>s Na 127 >>>recheck bmp ordered for 1900; for now continue current ivf (2) Acute on chronic renal failure: baseline creatinine 1.0-1.1 historically but more in 1.3 range since january admission. may worsen before she improves. ? ischemic changes versus prerenal<>hypotension in the setting of nsaids: peak creatinine 1.7 this am impr jerry to 1.6 today. 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 PMH includes non albuminuric CKD 3, labile hypertension w/ hx of vasovagal syncope and recurrent falls (including one > iliopsoas hematoma), hyperparathyroidism despite partial parathyroidectomy, CAD s/p stenting 2008, tachy/kraig syndrome s/p pacer, cystocele, and as below. She was admitted here 02/13- for acute decompensated HF and AF w/ RVR. Her baseline creatinine is 1.0-1.1 historically though more in the 1.3 range in 2021. HPTH is for conservative management despite progressive osteoporosis unless severe hypercalciuria or hypercalcemia. She is not vaccinated against covid and declines this. Overnight she developed worsening hypotension w/ sbp 90-100s; noted to have lo wer hgb and Na from 8.8>8.1>7.5 130>126>127 respectively and creat from 1.4 at admission to 1.9 > 1.7. Round the clock nsaids were held ( she had had several doses); IVF changed from LR to NS. She is 4.7L positive since admission. Pt seen and evaluated at approx 1020 AM today. She reports controlled abdominal pain, burps but no flatus passed yet; no n/v, no sob, no chest pain, no edema. Allergies Allergy/AdvReac Type Severity Reaction Status Date / Time alendronate sodium Allergy Intermediate Wheezing, Verified 04/27/21 10:31 shortness of breath. ezetimibe Allergy Intermediate Muscle Verified 04/27/21 10:31 pain. ibandronate sodium Allergy Intermediate trouble Verified 04/27/21 10:31 [From Boniva] swallowing Iodinated Contrast Media Allergy Intermediate Wheezing Verified 04/27/21 10:31 simvastatin Allergy Intermediate Muscle Verified 04/27/21 10:31 pain. Thiazides Allergy Intermediate wheezing Verified 04/27/21 10:31 erythromycin base Allergy Mild Nausea Verified 04/27/21 10:31 red dye Allergy Mild RASH Verified 04/27/21 10:31 amiodarone Allergy shortness Verified 04/27/21 10:31 of breath morphine Allergy Verified 04/27/21 10:31 metoprolol AdvReac must be Verified 04/01/21 16:27 caraco brand Home Medications Medication Instructions Recorded Confirmed Type acetaminophen 500 mg tablet 500 mg PO Q6H PRN 01/13/21 04/27/21 History ascorbic acid (vitamin C) 1,000 mg 1 g PO QAM 01/13/21 04/27/21 History tablet (Vitamin C) aspirin 81 mg tablet,delayed 81 mg PO QAM 01/13/21 04/27/21 History release (Aspirin Low Dose) atorvastatin 40 mg tablet 40 mg PO HS 01/13/21 04/27/21 History calcitriol 1 mcg/mL oral solution 1 mcg PO DAILY 01/13/21 04/27/21 History cyanocobalamin (vitamin B-12) 1,000 mcg PO 3XWK 01/13/21 04/27/21 History 1,000 mcg tablet (Vitamin B-12) denosumab 60 mg/mL subcutaneous 60 mg SUBCUT UD 01/13/21 04/27/21 History syringe (Prolia) duloxetine 20 mg capsule,delayed 20 mg PO QAM 01/13/21 04/27/21 History release furosemide 20 mg tablet 40 mg PO QAM 01/13/21 04/27/21 History latanoprost (PF) 0.005 % eye drops 1 drp OPHTHALMIC (EYE) PM 01/13/21 04/27/21 History lorazepam 0.5 mg tablet 0.5 mg PO DAILY PRN 01/13/21 04/27/21 History omeprazole 20 mg tablet,delayed 20 mg PO QAM 01/13/21 04/27/21 History release sennosides 8.6 mg-docusate sodium 2 tab-cap PO HS 01/13/21 04/27/21 History 50 mg capsule zinc 50 mg tablet 50 mg PO QAM 01/13/21 04/27/21 History ferrous fumarate-vitamin C 132 1 tab PO DAILY@12 02/13/21 04/27/21 History mg-250 mg tablet metoprolol succinate 100 mg 200 mg PO BID #120 tab 02/18/21 04/27/21 Rx tablet,extended release 24 hr spironolactone 25 mg tablet 25 mg PO QAM 04/01/21 04/27/21 History Patient History Medical History Ambulates with cane Anemia Anxiety Cardiac murmur Chronic diastolic heart failure Chronic kidney disease (CKD), stage III (moderate) follows with Dr. Butler Depression Frequent falls history of R iliopsoas hematoma Sep 2019 after a fall GERD (gastroesophageal reflux disease) Glaucoma History of COVID-19 diagnosed 02/2020 @ [facility]--fever, headache, cough, loss of taste/smell--no issues now Hyperparathyroidism for conservative management Labile blood pressure hx of vasovagal syncope Myocardial Infarction (~2005) follows with Poli Zepeda PA-C @ [facility] Osteoarthritis Osteoporosis Pacemaker (~2011) Medtronic Model: A2DR01 04/11/2017 Dual-chamber last check 3 mo ago Paroxysmal atrial fibrillation Not on ac due to fall risk and bleeding hx Sleep apnea 2L N/C at hs Thyroid nodule Surgical History History of arthroscopy of left knee History of bilateral cataract extraction History of cardiac cath 2005 with 1 stent placed @ [facility] History of colonoscopy History of dilatation and curettage History of facial surgery metal plate under left eye/left cheek History of parathyroidectomy partial @ [facility] History of partial hysterectomy History of permanent cardiac pacemaker placement medtronic History of tooth extraction all teeth S/P excision of lipoma Status post subtotal parathyroidectomy 2009 R inferior adenoma Family History Other Cancer Diabetes No family history of adverse response to anesthesia Social History Smoking Status: Never smoker Second Hand Exposure: No; Do You Dip or Chew Tobacco: No; Hx Alcohol Use: No Hx Substance Use: No Preferred Language: Korean Communication Ability: Effective [employer] Work[employer] Required: No Beliefs That Will Affect Care: None Current Living Situation: Alone How many Children do You have: 5 Feels Safe at Home: Yes Safety Concerns: Feels Safe At This Time Assistive Devices: Denture - Upper and Denture - Lower Review of Systems Review of Systems: All systems reviewed & are unremarkable except as noted in HPI & below Physical Exam Constitutional: well developed and well nourished; no acute distress Eyes: EOM intact bilaterally ENMT: Ears: no external ear abnormality Nose: no external nose abnormality Mouth: + dry oral mucous membranes Neck: no nuchal rigidity Respiratory: normal respiratory effort (on RA) Auscultation: + diminished lung sounds Cardiovascular: Rate/Rhythm: + irregularly irregular Extremities: no edema Gastrointestinal (Abdomen): Inspection/Auscultation: normal bowel sounds Percussion/Palpation: + abdomen tender (tender to mild palpation > surgical incisions c/d/i) and abdomen soft Musculoskeletal: Extremities: strength 5/5 throughout Skin: no rashes, warm and dry Neurologic: cardenas, fluent speech, no tremor Psychiatric: Orientation: oriented x 3 Insight: good insight Judgement: good judgement Genitourinary: anthony w/ ample urine Results & Data ([facility]) Vital Signs (Past 12 Hours) Vital Signs Temp Pulse Pulse Resp BP BP Pulse Ox 04/29/21 06:58 36.7 C 88 18 118/74 95 04/29/21 06:37 37 C 72 16 126/83 99 04/29/21 02:40 37.2 C 71 18 111/72 97 04/28/21 23:03 36.8 C 94 H 18 97/62 L 97 04/28/21 22:19 91 H Laboratory Results 04/29/21 02:29 04/29/21 06:07 UA reviewed serum osms wnl as is TSH urine osm 412; rd [place] 11 Diagnostic Findings cxr 04/28 Underinflated lungs with atelectasis versus scarring. No definite underlying airspace opacity.
--- NOTE | 2021-04-29 09:14 | Surgery Progress Note ---
Date of Service April 29, 2021 Assessment & Plan (1) S/P right hemicolectomy: (2) Chronic diastolic heart failure: (3) Paroxysmal atrial fibrillation: (4) Chronic kidney disease (CKD), stage III (moderate): Plan: POD # 2 s/p laparoscopic assisted right hemicolectomy -afebrile, hypotensive last evening systolic bp in 90's - Hgb 8.8 (preop --> 7.5 today) currently receiving 1 unit of PRBCs - abdomen is soft, nondistended, good bowel sounds, tender at incision sites, possible mild hematoma at RLQ incision site - pain controlled - no flatus yet Plan: Continue clear liquids for now continue IV Tylenol as needed for pain, oral Oxycodone ordered as well continue Anthony catheter for strict I/O IV fluids per medicine and nephrology repeat cbc and bmp at noon SCDs for DVT prophylaxis, will hold heparin given need for transfusion needs pt/ot oob to chair today continue boost Dr. Salamanca has seen and examined pt, agrees with above. Admission and Anticipated Discharge Date Admission Date: April 27, 2021 Subjective feeling lightheaded and dizzy today not feeling great today, felt better yesterday abdominal pain controlled not passing any flatus yet but feels gas moving around in belly urinating via anthony catheter has not been out of bed since surgery Physical Exam Constitutional: WD/WN, vitals as above + obese; no acute distress and not ill appearing Neck: normal visual inspection and trachea midline Respiratory: normal respiratory effort; no respiratory distress, no labored breathing and no retractions Gastrointestinal (Abdomen): Inspection/Auscultation: abdomen normal to inspection, normal bowel sounds and + abdominal surgical incision (clean dry intact); abdomen not distended Percussion/Palpation: + abdomen tender (at incision sites, appropriate postop) and abdomen soft; no guarding, abdomen not rigid and abdomen not firm There is some mild swelling and mild ecchymosis surrounding right lower quadrant incision Skin: no rashes, warm and dry Psychiatric: Orientation: alert and oriented x 3 Results & Data ([facility]) Vital Signs (Past 12 Hours) Vital Signs Temp Pulse Pulse Resp BP BP Pulse Ox 04/29/21 06:58 36.7 C 88 18 118/74 95 04/29/21 06:37 37 C 72 16 126/83 99 04/29/21 02:40 37.2 C 71 18 111/72 97 04/28/21 23:03 36.8 C 94 H 18 97/62 L 97 04/28/21 22:19 91 H Laboratory Results 04/29/21 04/29/21 04/29/21 Range/Units 06:07 02:29 02:29 WBC (4.8-10.8) K/uL RBC (4.2-5.4) M/uL Hgb (12.0-16.0) g/dL Hct (37-47) % MCV (80-100) fL MCH (25-34) pg MCHC (32-36) g/dL RDW Std Deviation (36.4-46.3) fL RDW Coeff of Nicholas (11.5-14.5) % Plt Count (130-400) K/uL MPV (7.4-10.4) fL Immature Gran % (Auto) % Neut % (Auto) % Lymph % (Auto) % [place] % (Auto) % Eos % (Auto) % Baso % (Auto) % Neut # (Auto) (1.4-6.5) K/uL Lymph # (Auto) (1.2-3.4) K/uL [place] # (Auto) (0.11-0.59) K/uL Eos # (Auto) (0-0.5) K/uL Baso # (Auto) (0-0.2) K/uL Immature Gran # (Auto) (0.00-0.02) K/uL Ovalocytes Sodium 127 L 126 L (136-145) mmol/L Potassium 4.5 4.4 (3.5-5.1) mmol/L Chloride 99 99 (98-107) mmol/L Carbon Dioxide 22 22 (21-32) mmol/L Anion Gap 6 5 (3-11) BUN 34 H 34 H (6-23) mg/dl Creatinine 1.73 H 1.59 H D (0.6-1.2) mg/dl Est Cr Clr Drug Dosing 28.8 30.6 ml/min Est GFR ( Amer) 31.1 34.4 ml/min Est GFR (Non-Af Amer) 26.8 29.7 ml/min BUN/Creatinine Ratio 19.7 21.4 H (10-20) Glucose 97 100 H (70-99(Fasting)) mg/dl Osmolality (280-300) mOsm/kg Lactate (0.4-2.0) mmol/L Calcium 8.7 8.6 (8.5-10.1) mg/dl Magnesium 2.1 (1.7-2.4) mg/dl Total Creatine Kinase (26-192) U/L TSH (0.300-4.500) uIu/ml Urine Color Urine Appearance (Clear) Urine pH (4.5-7.5) Ur Specific [place] (1.000-1.030) Urine Protein (Negative) Urine Glucose (UA) (Negative) Urine Ketones (Negative) Urine Blood (Negative) Urine Nitrite (Negative) Urine Bilirubin (Negative) Urine Urobilinogen (Negative) Ur Leukocyte Esterase (Negative) Urine WBC (Auto) (0-5) /hpf Urine RBC (Auto) (0-4) /hpf U Hyaline Cast (Auto) (0-5) /lpf U Epithel Cells (Auto) (0-5) /lpf Urine Bacteria (Auto) (Negative) Urine Osmolality (500-800) mOsm/kg Ur Random Sodium mmol/L Blood Type Blood Type Recheck O Positive Antibody Screen Crossmatch 04/29/21 04/28/21 04/28/21 Range/Units 02:29 23:05 23:05 WBC 9.56 (4.8-10.8) K/uL RBC 2.60 L (4.2-5.4) M/uL Hgb 7.5 L (12.0-16.0) g/dL Hct 24.0 L (37-47) % MCV 92.3 (80-100) fL MCH 28.8 (25-34) pg MCHC 31.3 L (32-36) g/dL RDW Std Deviation 59.6 H (36.4-46.3) fL RDW Coeff of Nicholas 17.6 H (11.5-14.5) % Plt Count 205 (130-400) K/uL MPV 8.6 (7.4-10.4) fL Immature Gran % (Auto) 0.6 % Neut % (Auto) 62.3 % Lymph % (Auto) 20.4 % [place] % (Auto) 12.2 % Eos % (Auto) 4.2 % Baso % (Auto) 0.3 % Neut # (Auto) 5.95 (1.4-6.5) K/uL Lymph # (Auto) 1.95 (1.2-3.4) K/uL [place] # (Auto) 1.17 H (0.11-0.59) K/uL Eos # (Auto) 0.40 (0-0.5) K/uL Baso # (Auto) 0.03 (0-0.2) K/uL Immature Gran # (Auto) 0.06 H (0.00-0.02) K/uL Ovalocytes 1+ Sodium (136-145) mmol/L Potassium (3.5-5.1) mmol/L Chloride (98-107) mmol/L Carbon Dioxide (21-32) mmol/L Anion Gap (3-11) BUN (6-23) mg/dl Creatinine (0.6-1.2) mg/dl Est Cr Clr Drug Dosing ml/min Est GFR ( Amer) ml/min Est GFR (Non-Af Amer) ml/min BUN/Creatinine Ratio (10-20) Glucose (70-99(Fasting)) mg/dl Osmolality (280-300) mOsm/kg Lactate (0.4-2.0) mmol/L Calcium (8.5-10.1) mg/dl Magnesium (1.7-2.4) mg/dl Total Creatine Kinase (26-192) U/L TSH (0.300-4.500) uIu/ml Urine Color Dark Yellow Urine Appearance Clear (Clear) Urine pH 5.0 (4.5-7.5) Ur Specific [place] 1.023 (1.000-1.030) Urine Protein Negative (Negative) Urine Glucose (UA) Negative (Negative) Urine Ketones Negative (Negative) Urine Blood Trace H (Negative) Urine Nitrite Negative (Negative) Urine Bilirubin Negative (Negative) Urine Urobilinogen Negative (Negative) Ur Leukocyte Esterase Negative (Negative) Urine WBC (Auto) 1-5 (0-5) /hpf Urine RBC (Auto) 5-10 H (0-4) /hpf U Hyaline Cast (Auto) 5-10 H (0-5) /lpf U Epithel Cells (Auto) 10-20 H (0-5) /lpf Urine Bacteria (Auto) Negative (Negative) Urine Osmolality (500-800) mOsm/kg Ur Random Sodium 11 mmol/L Blood Type Blood Type Recheck Antibody Screen Crossmatch 04/28/21 04/28/21 04/28/21 Range/Units 23:05 20:49 20:45 WBC 11.64 H (4.8-10.8) K/uL RBC 2.81 L (4.2-5.4) M/uL Hgb 8.1 L (12.0-16.0) g/dL Hct 26.3 L (37-47) % MCV 93.6 (80-100) fL MCH 28.8 (25-34) pg MCHC 30.8 L (32-36) g/dL RDW Std Deviation 61.3 H (36.4-46.3) fL RDW Coeff of Nicholas 17.7 H (11.5-14.5) % Plt Count 215 (130-400) K/uL MPV 8.9 (7.4-10.4) fL Immature Gran % (Auto) 0.9 % Neut % (Auto) 67.2 % Lymph % (Auto) 15.5 % [place] % (Auto) 14.0 % Eos % (Auto) 2.1 % Baso % (Auto) 0.3 % Neut # (Auto) 7.83 H (1.4-6.5) K/uL Lymph # (Auto) 1.80 (1.2-3.4) K/uL [place] # (Auto) 1.63 H (0.11-0.59) K/uL Eos # (Auto) 0.24 (0-0.5) K/uL Baso # (Auto) 0.03 (0-0.2) K/uL Immature Gran # (Auto) 0.11 H (0.00-0.02) K/uL Ovalocytes Sodium (136-145) mmol/L Potassium (3.5-5.1) mmol/L Chloride (98-107) mmol/L Carbon Dioxide (21-32) mmol/L Anion Gap (3-11) BUN (6-23) mg/dl Creatinine (0.6-1.2) mg/dl Est Cr Clr Drug Dosing ml/min Est GFR ( Amer) ml/min Est GFR (Non-Af Amer) ml/min BUN/Creatinine Ratio (10-20) Glucose (70-99(Fasting)) mg/dl Osmolality (280-300) mOsm/kg Lactate (0.4-2.0) mmol/L Calcium (8.5-10.1) mg/dl Magnesium (1.7-2.4) mg/dl Total Creatine Kinase (26-192) U/L TSH 2.847 (0.300-4.500) uIu/ml Urine Color Urine Appearance (Clear) Urine pH (4.5-7.5) Ur Specific [place] (1.000-1.030) Urine Protein (Negative) Urine Glucose (UA) (Negative) Urine Ketones (Negative) Urine Blood (Negative) Urine Nitrite (Negative) Urine Bilirubin (Negative) Urine Urobilinogen (Negative) Ur Leukocyte Esterase (Negative) Urine WBC (Auto) (0-5) /hpf Urine RBC (Auto) (0-4) /hpf U Hyaline Cast (Auto) (0-5) /lpf U Epithel Cells (Auto) (0-5) /lpf Urine Bacteria (Auto) (Negative) Urine Osmolality 412 L (500-800) mOsm/kg Ur Random Sodium mmol/L Blood Type Blood Type Recheck Antibody Screen Crossmatch 04/28/21 04/28/21 04/28/21 Range/Units 20:45 20:45 20:45 WBC (4.8-10.8) K/uL RBC (4.2-5.4) M/uL Hgb (12.0-16.0) g/dL Hct (37-47) % MCV (80-100) fL MCH (25-34) pg MCHC (32-36) g/dL RDW Std Deviation (36.4-46.3) fL RDW Coeff of Nicholas (11.5-14.5) % Plt Count (130-400) K/uL MPV (7.4-10.4) fL Immature Gran % (Auto) % Neut % (Auto) % Lymph % (Auto) % [place] % (Auto) % Eos % (Auto) % Baso % (Auto) % Neut # (Auto) (1.4-6.5) K/uL Lymph # (Auto) (1.2-3.4) K/uL [place] # (Auto) (0.11-0.59) K/uL Eos # (Auto) (0-0.5) K/uL Baso # (Auto) (0-0.2) K/uL Immature Gran # (Auto) (0.00-0.02) K/uL Ovalocytes Sodium 126 L (136-145) mmol/L Potassium 4.5 (3.5-5.1) mmol/L Chloride 97 L (98-107) mmol/L Carbon Dioxide 22 (21-32) mmol/L Anion Gap 7 (3-11) BUN 35 H (6-23) mg/dl Creatinine 1.89 H (0.6-1.2) mg/dl Est Cr Clr Drug Dosing 25.7 ml/min Est GFR ( Amer) 27.9 ml/min Est GFR (Non-Af Amer) 24.1 ml/min BUN/Creatinine Ratio 18.5 (10-20) Glucose 95 (70-99(Fasting)) mg/dl Osmolality 280 (280-300) mOsm/kg Lactate 1.6 (0.4-2.0) mmol/L Calcium 8.9 (8.5-10.1) mg/dl Magnesium 1.6 L (1.7-2.4) mg/dl Total Creatine Kinase 48 (26-192) U/L TSH (0.300-4.500) uIu/ml Urine Color Urine Appearance (Clear) Urine pH (4.5-7.5) Ur Specific [place] (1.000-1.030) Urine Protein (Negative) Urine Glucose (UA) (Negative) Urine Ketones (Negative) Urine Blood (Negative) Urine Nitrite (Negative) Urine Bilirubin (Negative) Urine Urobilinogen (Negative) Ur Leukocyte Esterase (Negative) Urine WBC (Auto) (0-5) /hpf Urine RBC (Auto) (0-4) /hpf U Hyaline Cast (Auto) (0-5) /lpf U Epithel Cells (Auto) (0-5) /lpf Urine Bacteria (Auto) (Negative) Urine Osmolality (500-800) mOsm/kg Ur Random Sodium mmol/L Blood Type Blood Type Recheck Antibody Screen Crossmatch 04/27/21 Range/Units 10:28 WBC (4.8-10.8) K/uL RBC (4.2-5.4) M/uL Hgb (12.0-16.0) g/dL Hct (37-47) % MCV (80-100) fL MCH (25-34) pg MCHC (32-36) g/dL RDW Std Deviation (36.4-46.3) fL RDW Coeff of Nicholas (11.5-14.5) % Plt Count (130-400) K/uL MPV (7.4-10.4) fL Immature Gran % (Auto) % Neut % (Auto) % Lymph % (Auto) % [place] % (Auto) % Eos % (Auto) % Baso % (Auto) % Neut # (Auto) (1.4-6.5) K/uL Lymph # (Auto) (1.2-3.4) K/uL [place] # (Auto) (0.11-0.59) K/uL Eos # (Auto) (0-0.5) K/uL Baso # (Auto) (0-0.2) K/uL Immature Gran # (Auto) (0.00-0.02) K/uL Ovalocytes Sodium (136-145) mmol/L Potassium (3.5-5.1) mmol/L Chloride (98-107) mmol/L Carbon Dioxide (21-32) mmol/L Anion Gap (3-11) BUN (6-23) mg/dl Creatinine (0.6-1.2) mg/dl Est Cr Clr Drug Dosing ml/min Est GFR ( Amer) ml/min Est GFR (Non-Af Amer) ml/min BUN/Creatinine Ratio (10-20) Glucose (70-99(Fasting)) mg/dl Osmolality (280-300) mOsm/kg Lactate (0.4-2.0) mmol/L Calcium (8.5-10.1) mg/dl Magnesium (1.7-2.4) mg/dl Total Creatine Kinase (26-192) U/L TSH (0.300-4.500) uIu/ml Urine Color Urine Appearance (Clear) Urine pH (4.5-7.5) Ur Specific [place] (1.000-1.030) Urine Protein (Negative) Urine Glucose (UA) (Negative) Urine Ketones (Negative) Urine Blood (Negative) Urine Nitrite (Negative) Urine Bilirubin (Negative) Urine Urobilinogen (Negative) Ur Leukocyte Esterase (Negative) Urine WBC (Auto) (0-5) /hpf Urine RBC (Auto) (0-4) /hpf U Hyaline Cast (Auto) (0-5) /lpf U Epithel Cells (Auto) (0-5) /lpf Urine Bacteria (Auto) (Negative) Urine Osmolality (500-800) mOsm/kg Ur Random Sodium mmol/L Blood Type O Positive Blood Type Recheck Antibody Screen NEGATIVE Crossmatch See Detail
[2021-04-29] MEDS: FERROUS SULFATE 325 MG TAB PO SCH (12:22)
[2021-04-29 12:41] LABS: Hematocrit (blood only) 29.1 % (37-47)
[2021-04-29] MEDS: oxyCODONE HCL IR 5 MG TAB (IMMEDIATE RELEASE) PO PRN ×2 (14:01→21:32)
[2021-04-29 15:03] LABS: BUN Creatinine Ratio 20.4 (10-20); Calcium 7.9 mg/dl (8.5-10.1); Creatinine Clr Calc Pharmacy 31.8 ml/min; Est GFR (Non-African American) 30.2 ml/min; Potassium 4.4 mmol/L (3.5-5.1)
--- NOTE | 2021-04-29 15:08 | Hospitalist Progress Note ---
Date of Service April 29, 2021 Assessment & Plan (1) Colon adenocarcinoma: (2) S/P right hemicolectomy: Plan: This is an 85yo F with a PMH of colon adenocarcinoma, paroxysmal atrial fibrillation not on anticoagulation due to fall risk, chronic diastolic heart failure, s/p pacemaker, CKD III, MARTI on 2L NC O2 HS, s/p R Laparoscopic Hemicolectomy by Surgery Dr. Salamanca performed on 04/27/21 Day #2 status post laparoscopic right hemicolectomy for adenocarcinoma of the cecum. No postop complications Hemoglobin dropped to 7.4 and she is getting 1 unit of blood transfusion as of 04/29/2021 Incentive spirometry Continue PPI Clear liquid diet as tolerated -tolerating clears Pain seems to be reasonably controlled (3) Chronic diastolic heart failure: Plan: Continue to hold home lasix dose Monitor closely while off lasix and on gentle IV fluid No signs and/or symptoms of fluid overload (4) Paroxysmal atrial fibrillation: Plan: Continue Toprol 200mg BID. Not on anticoagulation due to h/o bleeding and frequent falls Heart rate is reasonably controlled (5) Chronic kidney disease (CKD), stage III (moderate): Plan: Acute kidney injury on chronic kidney disease Creatinine increased to 1.7 today, baseline creatinine 1-1.2 Continue to hold home lasix dose Continue gentle IVF at 50 mL/h Appreciate nephrology input and recommendation We will monitor PRP-BUN and creatinine is 32/1.57, slightly better Electrolyte imbalance Hyponatremia with sodium of 127 as of 04/29/2021 (6) Pacemaker: Plan: H/o sinus bradycardia s/p PM placement (7) Depression: (8) Anxiety: Plan: Continue duloxetine, home PRN Ativan (9) Sleep apnea: Plan: 2L NC O2 HS DVT Ppx: Per surgical service Code status: FULL Disposition as per ortho Admission and Anticipated Discharge Date Admission Date: April 29, 2021 Subjective 04/29/2021 The patient was seen and examined in medical telemetry unit She complains to have generalized weakness and some abdominal discomfort Her bowel has not moved yet Denies any nausea or vomiting and no fever and chills Review of Systems Review of Systems: All systems reviewed and are unremarkable except as noted below Physical Exam Physical Exam: Lying in bed comfortably Constitutional: well developed, well nourished, + ill appearing and + obese Eyes: PERRL, conjunctivae normal, anicteric sclerae ENMT: external ear and nose normal, oropharynx normal Neck: trachea midline, no thyromegaly Respiratory: no respiratory distress Auscultation: lungs clear to auscultation bilaterally Cardiovascular: Rate/Rhythm: + irregularly irregular; not tachycardic Heart Sounds: normal S1 and normal S2; no murmur Extremities: + edema (Trace edema bilaterally) Gastrointestinal (Abdomen): Inspection/Auscultation: normal bowel sounds (Diminished); abdomen not distended Percussion/Palpation: + abdomen tender and abdomen soft Musculoskeletal: No acute arthritis in any joint Neurologic: Alert, awake and oriented x3. Generally weak but no focal sensory or motor deficit appreciated Results & Data Results & Data ([facility]) Vital Signs (Past 12 Hours) Vital Signs Temp Pulse Pulse Resp BP BP Pulse Ox 04/29/21 11:29 36.4 C L 90 20 97/61 L 94 04/29/21 10:43 36.8 C 82 18 122/83 04/29/21 09:43 36.8 C 80 16 130/66 04/29/21 08:43 36.6 C 88 16 152/92 H 04/29/21 07:43 36.6 C 92 H 18 110/64 92 04/29/21 07:15 36.6 C 88 18 128/73 92 04/29/21 06:58 36.7 C 88 18 118/74 95 04/29/21 06:37 37 C 72 16 126/83 99 Laboratory Results Short CBC 04/28/21 04/29/21 04/29/21 Range/Units 20:49 02:29 12:10 WBC 11.64 H 9.56 (4.8-10.8) K/uL Hgb 8.1 L 7.5 L 9.0 L (12.0-16.0) g/dL Hct 26.3 L 24.0 L 29.1 L (37-47) % Plt Count 215 205 (130-400) K/uL BMP 04/28/21 04/29/21 04/29/21 20:45 02:29 06:07 Sodium 126 L 126 L 127 L Potassium 4.5 4.4 4.5 Chloride 97 L 99 99 Carbon Dioxide BUN 35 H 34 H 34 H Creatinine 1.89 H 1.59 H D 1.73 H Glucose 95 100 H 97 Calcium 8.9 8.6 8.7 Cardiac Enzymes 04/28/21 Range/Units 20:45 Total Creatine Kinase 48 (26-192) U/L Urine 04/28/21 Range/Units 23:05 Urine Color Dark Yellow Urine Appearance Clear (Clear) Urine pH 5.0 (4.5-7.5) Ur Specific [place] 1.023 (1.000-1.030) Urine Protein Negative (Negative) Urine Glucose (UA) Negative (Negative) Medications Administered Current Inpatient Medications Al Hydrox/Mg Hydrox/Simethicone (Aluminum/Magnesium/Simeth (Maalox Max) 30 Ml Udc) 15 ml PO Q6H PRN PRN Reason: Heartburn Stop: 05/29/21 11:02 Ascorbic Acid (Ascorbic Acid 500 Mg Tab) 1,000 mg PO [facility] Stop: 05/28/21 08:59 Last Admin: 04/29/21 07:49 Dose: 1,000 mg Documented by: Ascorbic Acid (Ascorbic Acid 500 Mg Tab) 125 mg PO DAILY@1200 [facility] Stop: 05/28/21 11:59 Last Admin: 04/29/21 12:24 Dose: 125 mg Documented by: Aspirin (Aspirin 81 Mg Ectab) 81 mg PO [facility] Stop: 05/28/21 08:59 Last Admin: 04/29/21 07:50 Dose: 81 mg Documented by: Atorvastatin Calcium (Atorvastatin 40 Mg Tab) 40 mg PO [facility] Stop: 05/27/21 20:59 Last Admin: 04/28/21 20:39 Dose: 40 mg Documented by: Calcitriol (Calcitriol 0.25 Mcg Capsule) 1 mcg PO DAILY [facility] Stop: 05/28/21 08:59 Last Admin: 04/29/21 07:50 Dose: 1 mcg Documented by: Cyanocobalamin (Cyanocobalamin (B-12) 500 Mcg Tablet) 1,000 mcg PO MoWeFr@0900 [facility] Stop: 05/27/21 19:49 Last Admin: 04/29/21 07:51 Dose: 1,000 mcg Documented by: Duloxetine HCl (Duloxetine Hcl 20 Mg Cap) [facility] [place]: 05/28/21 08:59 Last Admin: 04/28/21 08:30 Dose: 20 mg Documented by: Ferrous Sulfate (Ferrous Sulfate 325 Mg Tab) 325 mg PO DAILY@1200 [facility] Stop: 05/28/21 11:59 Last Admin: 04/29/21 12:22 Dose: 325 mg Documented by: Heparin Sodium (Porcine) (Heparin Sod 5,000 Unit/0.5 Ml Vial) 5,000 units SQ Q8 [facility] Stop: 05/28/21 21:59 Last Admin: 04/29/21 05:33 Dose: 5,000 units Documented by: Hydromorphone HCl (Hydromorphone Inj 0.5 Mg/0.5 Ml Syr) 0.25 mg IV Q3H PRN PRN Reason: Pain Stop: 05/12/21 20:40 Last Admin: 04/29/21 08:12 Dose: 0.25 mg Documented by: Promethazine HCl 6.25 mg/ (Sodium Chloride) 50.25 mls @ 201 mls/hr IV Q6H PRN PRN Reason: Nausea And Vomiting Stop: 05/28/21 06:47 Acetaminophen (Ofirmev) 1,000 mg in 100 mls @ 400 mls/hr IV Q8H [facility] Stop: 05/01/21 07:59 Last Infusion: 04/29/21 06:30 Dose: Infused Documented by: Sodium Chloride (Nss 1000ml) 1,000 mls @ 50 mls/hr IV .Q20H [facility] Stop: 05/29/21 04:59 Last Infusion: 04/29/21 12:26 Dose: 50 mls/hr Documented by: Ketorolac Tromethamine (Ketorolac Tromethamine 15 Mg/Ml Vial) 15 mg IV Q6H [facility] Stop: 05/03/21 07:59 Last Admin: 04/28/21 19:47 Dose: 15 mg Documented by: Latanoprost (Latanoprost 0.005% Op Soln 2.5 Ml Btl) 1 drops OP PM [facility] Stop: 05/27/21 20:59 Last Admin: 04/28/21 20:39 Dose: 1 drops Documented by: Lorazepam (Lorazepam 0.5 Mg Tab) 0.5 mg PO DAILY PRN PRN Reason: Anxiety Stop: 05/27/21 19:37 Last Admin: 04/27/21 23:41 Dose: 0.5 mg Documented by: Menthol (Cough Drop (Sugar Free) Omega 24 Omega/1 Box) 1 omega [place] Q2H PRN PRN Reason: Sore Throat Stop: 05/28/21 20:31 Metoprolol Succinate (Metoprolol Succ 50mg Ext Rel Tab) 50 mg PO BID [facility] Stop: 05/29/21 08:59 Last Admin: 04/29/21 07:52 Dose: 50 mg Documented by: Oxycodone HCl (Oxycodone Hcl Ir 5 Mg Tab (Immediate Release)) 5 mg PO Q4H PRN PRN Reason: Pain Stop: 05/12/21 20:39 Last Admin: 04/29/21 14:01 Dose: 5 mg Documented by: Pantoprazole Sodium (Pantoprazole 40 Mg Tab) 40 mg PO [facility] Stop: 05/28/21 03:19 Last Admin: 04/29/21 07:51 Dose: 40 mg Documented by: Phenol (Chloraseptic 1.4% Soln 180 Ml Btl) 1 sprays MT Q2H PRN PRN Reason: throat discomfort Stop: 05/28/21 20:31 Last Admin: 04/28/21 20:53 Dose: 1 sprays Documented by: Zinc Sulfate (Zinc Sulfate 220 Mg Capsule) 220 mg PO [facility] Stop: 05/28/21 08:59 Last Admin: 04/29/21 07:49 Dose: 220 mg Documented by:
[2021-04-29] MEDS: LATANOPROST 0.005% OP SOLN 2.5 ML BTL OP SCH (21:33)
[2021-04-29] MEDS: ATORVASTATIN 40 MG TAB PO SCH (21:33)
[2021-04-29 21:39] LABS: Calcium 8.8 mg/dl (8.5-10.1); Creatinine Clr Calc Pharmacy 36.2 ml/min; Est GFR (African American) 40.9 ml/min; Est GFR (Non-African American) 35.3 ml/min; Potassium 4.5 mmol/L (3.5-5.1)
[2021-04-30] MEDS: SODIUM CHLORIDE 0.9% 1000ML 1,000 ML IV SCH ×2 (02:24→20:16)
[2021-04-30] MEDS: oxyCODONE HCL IR 5 MG TAB (IMMEDIATE RELEASE) PO PRN ×2 (06:35→15:09)
[2021-04-30 07:44] LABS: Basophils # (auto) 0.03 K/uL (0-0.2); Basophils % (auto) 0.4 %; Eosinophils % (auto) 6.4 %; Hematocrit (blood only) 27.9 % (37-47); Hemoglobin 8.8 g/dL (12.0-16.0); Immature Granulocytes # (auto) 0.06 K/uL (0.00-0.02); Immature Granulocytes % (auto) 0.8 %; Lymphocytes % (auto) 15.5 %; Mean Corpuscular Hemoglobin 28.9 pg (25-34); Mean Corpuscular Hgb Conc 31.5 g/dL (32-36); Mean Corpuscular Volume 91.5 fL (80-100); Mean Platelet Volume 8.9 fL (7.4-10.4); Monocytes # (auto) 1.04 K/uL (0.11-0.59); Monocytes % (auto) 13.4 %; Neutrophils # (auto) 4.93 K/uL (1.4-6.5); Neutrophils % (auto) 63.5 %; Platelet Count 217 K/uL (130-400); RDW Coefficient of Variation 18.4 % (11.5-14.5); RDW Standard Deviation 61.6 fL (36.4-46.3); Red Blood Count 3.05 M/uL (4.2-5.4); White Blood Count 7.76 K/uL (4.8-10.8)
[2021-04-30 08:06] LABS: BUN Creatinine Ratio 21.2 (10-20); Calcium 8.1 mg/dl (8.5-10.1); Creatinine Clr Calc Pharmacy 44.5 ml/min; Est GFR (African American) 52.1 ml/min; Est GFR (Non-African American) 44.9 ml/min; Potassium 4.4 mmol/L (3.5-5.1)
[2021-04-30] MEDS: METOPROLOL SUCC 50MG EXT REL TAB PO SCH ×2 (08:37→20:16)
[2021-04-30] MEDS: CALCITRIOL 0.25 MCG CAPSULE PO SCH (08:38)
[2021-04-30] MEDS: ZINC SULFATE 220 MG CAPSULE PO SCH (08:38)
[2021-04-30] MEDS: ASCORBIC ACID 500 MG TAB PO SCH ×2 (08:38→11:59)
[2021-04-30] MEDS: PANTOprazole 40 MG TAB PO SCH (08:39)
[2021-04-30] MEDS: ASPIRIN 81 MG ECTAB PO SCH (08:39)
[2021-04-30] MEDS: ACETAMINOPHEN 1,000 MG/100 ML VIAL IV SCH ×2 (08:42→15:11)
--- NOTE | 2021-04-30 09:28 | Surgery Progress Note ---
Date of Service April 30, 2021 Assessment & Plan (1) S/P right hemicolectomy: (2) Chronic diastolic heart failure: (3) Paroxysmal atrial fibrillation: (4) Chronic kidney disease (CKD), stage III (moderate): Plan: POD # 3 s/p laparoscopic assisted right hemicolectomy -afebrile, vital signs stable - Hgb 8.8, status post 1 unit of packed red blood cells - abdomen is soft, nondistended, good bowel sounds, tender at incision sites, hematoma at RLQ incision site - pain controlled - no flatus yet Plan: Okay for soft diet continue IV Tylenol as needed for pain, oral Oxycodone ordered as well continue Lee catheter for strict I/O IV fluids per medicine and nephrology SCDs for DVT prophylaxis, will hold heparin given need for transfusion needs pt/ot oob to chair today continue boost Dr. Salamanca has seen and examined pt, agrees with above. Admission and Anticipated Discharge Date Admission Date: April 29, 2021 Subjective Feeling better today. Feeling hungry would like mashed potatoes No nausea no vomiting Pain controlled Has not passed any gas yet Has not been out of bed yet Physical Exam Constitutional: WD/WN, vitals as above Neck: normal visual inspection and trachea midline Respiratory: normal respiratory effort; no respiratory distress and no labored breathing Gastrointestinal (Abdomen): Inspection/Auscultation: abdomen normal to inspection and + abdominal surgical incision (Clean, dry, intact with Dermabond); abdomen not distended Percussion/Palpation: + abdomen tender (Right lower quadrant) and abdomen soft; no guarding and abdomen not rigid There is ecchymosis present in the right lower quadrant with some subcutaneous swelling around the right lower quadrant incision. There is a small pinhole opening in the right mid abdomen with some blood present blood was present on the count as well. No active bleeding. Skin: no rashes, warm and dry no jaundice Psychiatric: A+Ox3, euthymic affect Results & Data ([facility]) Vital Signs (Past 12 Hours) Vital Signs Temp Pulse Pulse Pulse Resp BP BP 04/30/21 07:43 80 04/30/21 07:19 36.9 C 90 18 141/84 H 04/30/21 04:00 36.5 C 79 18 131/81 04/29/21 23:19 82 03/02/22 23:00 37.0 C 79 79 18 125/72 Pulse Ox 04/30/21 07:43 04/30/21 07:19 99 04/30/21 04:00 98 04/29/21 23:19 04/29/21 23:00 97 Laboratory Results 04/30/21 04/30/21 04/29/21 Range/Units 06:58 06:58 20:58 WBC 7.76 (4.8-10.8) K/uL RBC 3.05 L (4.2-5.4) M/uL Hgb 8.8 L (12.0-16.0) g/dL Hct 27.9 L (37-47) % MCV 91.5 (80-100) fL MCH 28.9 (25-34) pg MCHC 31.5 L (32-36) g/dL RDW Std Deviation 61.6 H (36.4-46.3) fL RDW Coeff of Nicholas 18.4 H (11.5-14.5) % Plt Count 217 (130-400) K/uL MPV 8.9 (7.4-10.4) fL Immature Gran % (Auto) 0.8 % Neut % (Auto) 63.5 % Lymph % (Auto) 15.5 % [place] % (Auto) 13.4 % Eos % (Auto) 6.4 % Baso % (Auto) 0.4 % Neut # (Auto) 4.93 (1.4-6.5) K/uL Lymph # (Auto) 1.20 (1.2-3.4) K/uL [place] # (Auto) 1.04 H (0.11-0.59) K/uL Eos # (Auto) 0.50 (0-0.5) K/uL Baso # (Auto) 0.03 (0-0.2) K/uL Immature Gran # (Auto) 0.06 H (0.00-0.02) K/uL Sodium 129 L 127 L (136-145) mmol/L Potassium 4.4 4.5 (3.5-5.1) mmol/L Chloride 103 99 (98-107) mmol/L Carbon Dioxide 21 23 (21-32) mmol/L Anion Gap 5 5 (3-11) BUN 24 H 29 H (6-23) mg/dl Creatinine 1.13 1.38 H (0.6-1.2) mg/dl Est Cr Clr Drug Dosing 44.5 36.2 ml/min Est GFR ( Amer) 52.1 40.9 ml/min Est GFR (Non-Af Amer) 44.9 35.3 ml/min BUN/Creatinine Ratio 21.2 H 21.0 H (10-20) Glucose 93 112 H (70-99(Fasting)) mg/dl Calcium 8.1 L 8.8 (8.5-10.1) mg/dl Crossmatch 04/29/21 04/29/21 04/27/21 Range/Units 12:10 12:10 10:28 WBC (4.8-10.8) K/uL RBC (4.2-5.4) M/uL Hgb 9.0 L (12.0-16.0) g/dL Hct 29.1 L (37-47) % MCV (80-100) fL MCH (25-34) pg MCHC (32-36) g/dL RDW Std Deviation (36.4-46.3) fL RDW Coeff of Nicholas (11.5-14.5) % Plt Count (130-400) K/uL MPV (7.4-10.4) fL Immature Gran % (Auto) % Neut % (Auto) % Lymph % (Auto) % [place] % (Auto) % Eos % (Auto) % Baso % (Auto) % Neut # (Auto) (1.4-6.5) K/uL Lymph # (Auto) (1.2-3.4) K/uL [place] # (Auto) (0.11-0.59) K/uL Eos # (Auto) (0-0.5) K/uL Baso # (Auto) (0-0.2) K/uL Immature Gran # (Auto) (0.00-0.02) K/uL Sodium 127 L (136-145) mmol/L Potassium 4.4 (3.5-5.1) mmol/L Chloride 100 (98-107) mmol/L Carbon Dioxide 19 L (21-32) mmol/L Anion Gap 8 (3-11) BUN 32 H (6-23) mg/dl Creatinine 1.57 H (0.6-1.2) mg/dl Est Cr Clr Drug Dosing 31.8 ml/min Est GFR ( Amer) 35.0 ml/min Est GFR (Non-Af Amer) 30.2 ml/min BUN/Creatinine Ratio 20.4 H (10-20) Glucose 115 H (70-99(Fasting)) mg/dl Calcium 7.9 L (8.5-10.1) mg/dl Crossmatch See Detail
[2021-04-30] MEDS: ALUMINUM/MAGNESIUM/SIMETH (MAALOX MAX) 30 ML UDC PO PRN ×2 (09:41→22:12)
--- NOTE | 2021-04-30 11:51 | Nephrology Progress Note ---
Date of Service April 30, 2021 Assessment & Plan (1) Electrolyte and fluid disorder: Plan: sNa ann 126, was 130 on admission; up to 129 this am w/ serum osms normal and urine chemistries c/w mild volume depletion. no issues historically w/ hyponatremia, at least not as inpatient. -continue NS current rate 50 mL /hr >> lower rate due mostly to hypoxia -goal sNa for tomorrow am is 134 -encourage PO -cont strict I/O -daily bmp ok for now (2) Acute on chronic renal failure: Plan: baseline creatinine 1.0-1.1 historically but more in 1.3 range since january admission. may worsen before she improves. ? ischemic changes versus prerenal<>hypotension in the setting of nsaids: peak creatinine 1.7 this am improved to 1.6 today. -no indication for dialysis discussion or renal imaging currently -daily bmp -continue to avoid nephrotoxins -strict I/O (3) Labile blood pressure: Plan: sbp in 90s for about 10h on 04/28; meds already adjusted >monitor (4) Anemia of chronic disease: Plan: for pRBC today Admission and Anticipated Discharge Date Admission Date: April 29, 2021 Subjective some abd pain this am; still no flatus so far. no n/v. no sob. Review of Systems Review of Systems: All systems reviewed & are unremarkable except as noted in Subjective Physical Exam Constitutional: well developed and well nourished; no acute distress Eyes: EOM intact bilaterally ENMT: Ears: no external ear abnormality Nose: no external nose abnormality Mouth: + dry oral mucous membranes Neck: no nuchal rigidity Respiratory: normal respiratory effort (on 2L 02NC) Auscultation: + diminished lung sounds Cardiovascular: Rate/Rhythm: + irregularly irregular Extremities: no edema Gastrointestinal (Abdomen): Inspection/Auscultation: normal bowel sounds Percussion/Palpation: + abdomen tender (tender to mild palpation > surgical incisions c/d/i) and abdomen soft Musculoskeletal: Extremities: strength 5/5 throughout Skin: no rashes, warm and dry Psychiatric: Orientation: oriented x 3 Insight: good insight Judgement: good judgement Genitourinary: anthony w/ ample urine Results & Data ([facility]) Vital Signs (Past 12 Hours) Vital Signs Temp Pulse Pulse Resp BP Pulse Ox 04/30/21 07:43 80 04/30/21 07:19 36.9 C 90 18 141/84 H 99 04/30/21 04:00 36.5 C 79 18 131/81 98 Laboratory Results 04/30/21 06:58 04/30/21 06:58
[2021-04-30] MEDS: FERROUS SULFATE 325 MG TAB PO SCH (11:59)
--- NOTE | 2021-04-30 14:29 | Hospitalist Progress Note ---
Date of Service April 30, 2021 Assessment & Plan (1) Colon adenocarcinoma: (2) S/P right hemicolectomy: Plan: This is an 85yo F with a PMH of colon adenocarcinoma, paroxysmal atrial fibrillation not on anticoagulation due to fall risk, chronic diastolic heart failure, s/p pacemaker, CKD III, MARTI on 2L NC O2 HS, s/p R Laparoscopic Hemicolectomy by Surgery Dr. Salamanca performed on 04/27/21 Day #3 status post laparoscopic right hemicolectomy for adenocarcinoma of the cecum. No postop complications Incentive spirometry Continue PPI Clear liquid diet as tolerated -tolerating clears Pain seems to be reasonably controlled Has been passing gas and clears has been started by the surgery Acute blood loss anemia Hemoglobin dropped to 7.4 and she is getting 1 unit of blood transfusion as of 04/29/2021 Hemoglobin remains stable following blood transfusion at 8.8 (3) Chronic diastolic heart failure: Plan: Continue to hold home lasix dose Monitor closely while off lasix and on gentle IV fluid No signs and/or symptoms of fluid overload (4) Paroxysmal atrial fibrillation: Plan: Continue Toprol 200mg BID. Not on anticoagulation due to h/o bleeding and frequent falls Heart rate is reasonably controlled (5) Chronic kidney disease (CKD), stage III (moderate): Plan: Acute kidney injury on chronic kidney disease Creatinine increased to 1.7 today, baseline creatinine 1-1.2 Continue to hold home lasix dose Continue gentle IVF at 50 mL/h Appreciate nephrology input and recommendation We will monitor PRP-BUN and creatinine is 32/1.57, slightly better Her creatinine has been normalized as of 04/30/2021 Electrolyte imbalance Hyponatremia with sodium of 127 as of 04/29/2021 Sodium level remains low at 129 (6) Pacemaker: Plan: H/o sinus bradycardia s/p PM placement (7) Depression: (8) Anxiety: Plan: Continue duloxetine, home PRN Ativan (9) Sleep apnea: Plan: 2L NC O2 HS DVT Ppx: Per surgical service Code status: FULL Disposition as per ortho Admission and Anticipated Discharge Date Admission Date: April 29, 2021 Subjective 04/29/2021 The patient was seen and examined in medical telemetry unit She complains to have generalized weakness and some abdominal discomfort Her bowel has not moved yet Denies any nausea or vomiting and no fever and chills 04/30/2021 The patient was seen and examined in medical telemetry unit She has been feeling much better with minimal discomfort in the abdomen No nausea and or vomiting She has been passing gases but no bowel movement Review of Systems Review of Systems: All systems reviewed and are unremarkable except as noted below Gastrointestinal: Minimal abdominal discomfort without nausea and or vomiting Physical Exam Physical Exam: Lying in bed comfortably Constitutional: well developed, well nourished, + ill appearing and + obese Eyes: PERRL, conjunctivae normal, anicteric sclerae ENMT: external ear and nose normal, oropharynx normal Neck: trachea midline, no thyromegaly Respiratory: no respiratory distress Auscultation: lungs clear to auscultation bilaterally Cardiovascular: Rate/Rhythm: + irregularly irregular; not tachycardic Heart Sounds: normal S1 and normal S2; no murmur Extremities: + edema (Trace edema bilaterally) Gastrointestinal (Abdomen): Inspection/Auscultation: normal bowel sounds (Diminished); abdomen not distended Percussion/Palpation: + abdomen tender and abdomen soft Musculoskeletal: No acute arthritis in any joint Neurologic: Alert, awake and oriented x3. No focal sensory and/or motor deficit appreciated Results & Data Results & Data ([facility]) Vital Signs (Past 12 Hours) Vital Signs Temp Pulse Pulse Resp BP Pulse Ox 04/30/21 11:00 36.7 C 107 H 20 146/90 H 96 04/30/21 07:43 80 04/30/21 07:19 36.9 C 90 18 141/84 H 99 04/30/21 04:00 36.5 C 79 18 131/81 98 Laboratory Results Short CBC 04/30/21 Range/Units 06:58 WBC 7.76 (4.8-10.8) K/uL Hgb 8.8 L (12.0-16.0) g/dL Hct 27.9 L (37-47) % Plt Count 217 (130-400) K/uL BMP 04/29/21 04/29/21 04/30/21 12:10 20:58 06:58 Sodium 127 L 127 L 129 L Potassium 4.4 4.5 4.4 Chloride 100 99 103 Carbon Dioxide 19 L 23 21 BUN 32 H 29 H 24 H Creatinine 1.57 H 1.38 H 1.13 Glucose 115 H 112 H 93 Calcium 7.9 L 8.8 8.1 L Medications Administered Current Inpatient Medications Al Hydrox/Mg Hydrox/Simethicone (Aluminum/Magnesium/Simeth (Maalox Max) 30 Ml Udc) 15 ml PO Q6H PRN PRN Reason: Heartburn Stop: 05/29/21 11:02 Last Admin: 04/30/21 09:41 Dose: 15 ml Documented by: Ascorbic Acid (Ascorbic Acid 500 Mg Tab) 1,[facility] [place]: 05/28/21 08:59 Last Admin: 04/30/21 08:38 Dose: 1,000 mg Documented by: Ascorbic Acid (Ascorbic Acid 500 Mg Tab) 125 mg PO DAILY@1200 [facility] Stop: 05/28/21 11:59 Last Admin: 04/30/21 11:59 Dose: 125 mg Documented by: Aspirin (Aspirin 81 Mg Ectab) 81 [facility] [place]: 05/28/21 08:59 Last Admin: 04/30/21 08:39 Dose: 81 mg Documented by: Atorvastatin Calcium (Atorvastatin 40 Mg Tab) 40 mg PO HS [facility] Stop: 05/27/21 20:59 Last Admin: 04/29/21 21:33 Dose: 40 mg Documented by: Calcitriol (Calcitriol 0.25 Mcg Capsule) 1 mcg PO DAILY [facility] Stop: 05/28/21 08:59 Last Admin: 04/30/21 08:38 Dose: 1 mcg Documented by: Cyanocobalamin (Cyanocobalamin (B-12) 500 Mcg Tablet) 1,000 mcg PO MoWeFr@0900 [facility] Stop: 05/27/21 19:49 Last Admin: 04/29/21 07:51 Dose: 1,000 mcg Documented by: Duloxetine HCl (Duloxetine Hcl 20 Mg Cap) 20 mg PO QAM [facility] Stop: 05/28/21 08:59 Last Admin: 04/28/21 08:30 Dose: 20 mg Documented by: Ferrous Sulfate (Ferrous Sulfate 325 Mg Tab) 325 mg PO DAILY@1200 [facility] Stop: 05/28/21 11:59 Last Admin: 04/30/21 11:59 Dose: 325 mg Documented by: Heparin Sodium (Porcine) (Heparin Sod 5,000 Unit/0.5 Ml Vial) 5,000 units SQ Q8 [facility] Stop: 05/28/21 21:59 Last Admin: 04/29/21 05:33 Dose: 5,000 units Documented by: Hydromorphone HCl (Hydromorphone Inj 0.5 Mg/0.5 Ml Syr) 0.25 mg IV Q3H PRN PRN Reason: Pain Stop: 05/12/21 20:40 Last Admin: 04/29/21 08:12 Dose: 0.25 mg Documented by: Promethazine HCl 6.25 mg/ (Sodium Chloride) 50.25 mls @ 201 mls/hr IV Q6H PRN PRN Reason: Nausea And Vomiting Stop: 05/28/21 06:47 Acetaminophen (Ofirmev) 1,000 mg in 100 mls @ 400 mls/hr IV Q8H [facility] Stop: 05/01/21 07:59 Last Infusion: 04/30/21 09:13 Dose: Infused Documented by: Sodium Chloride (Nss 1000ml) 1,000 mls @ 50 mls/hr IV .Q20H [facility] Stop: 05/29/21 04:59 Last Admin: 04/30/21 02:24 Dose: 50 mls/hr Documented by: Ketorolac Tromethamine (Ketorolac Tromethamine 15 Mg/Ml Vial) 15 mg IV Q6H [facility] Stop: 05/03/21 07:59 Last Admin: 04/28/21 19:47 Dose: 15 mg Documented by: Latanoprost (Latanoprost 0.005% Op Soln 2.5 Ml Btl) 1 drops OP PM [facility] Stop: 05/27/21 20:59 Last Admin: 04/29/21 21:33 Dose: 1 drops Documented by: Lorazepam (Lorazepam 0.5 Mg Tab) 0.5 mg PO DAILY PRN PRN Reason: Anxiety Stop: 05/27/21 19:37 Last Admin: 04/27/21 23:41 Dose: 0.5 mg Documented by: Menthol (Cough Drop (Sugar Free) Omega 24 Omega/1 Box) 1 omega BUCCAL Q2H PRN PRN Reason: Sore Throat Stop: 05/28/21 20:31 Metoprolol Succinate (Metoprolol Succ 50mg Ext Rel Tab) 50 mg PO BID [facility] Stop: 05/29/21 08:59 Last Admin: 04/30/21 08:37 Dose: 50 mg Documented by: Oxycodone HCl (Oxycodone Hcl Ir 5 Mg Tab (Immediate Release)) 5 mg PO Q4H PRN PRN Reason: Pain Stop: 05/12/21 20:39 Last Admin: 04/30/21 06:35 Dose: 5 mg Documented by: Pantoprazole Sodium (Pantoprazole 40 Mg Tab) 40 [facility] [place]: 05/28/21 03:19 Last Admin: 04/30/21 08:39 Dose: 40 mg Documented by: Phenol (Chloraseptic 1.4% Soln 180 Ml Btl) 1 sprays MT Q2H PRN PRN Reason: throat discomfort Stop: 05/28/21 20:31 Last Admin: 04/28/21 20:53 Dose: 1 sprays Documented by: Senna/Docusate Sodium (Docusate Sodium/Senna 50/8.6mg Tab) 2 tab PO [facility] Stop: 05/30/21 20:59 Zinc Sulfate (Zinc Sulfate 220 Mg Capsule) 220 mg PO [facility] Stop: 05/28/21 08:59 Last Admin: 04/30/21 08:38 Dose: 220 mg Documented by:
[2021-04-30] MEDS: ATORVASTATIN 40 MG TAB PO SCH (20:15)
[2021-04-30] MEDS: DOCUSATE SODIUM/SENNA 50/8.6MG TAB PO SCH (20:16)
[2021-04-30] MEDS: LATANOPROST 0.005% OP SOLN 2.5 ML BTL OP SCH (21:43)
[2021-04-30] MEDS: LORazepam 0.5 MG TAB PO PRN (22:12)
[2021-05-01] MEDS: ACETAMINOPHEN 1,000 MG/100 ML VIAL IV SCH (01:05)
[2021-05-01] MEDS: oxyCODONE HCL IR 5 MG TAB (IMMEDIATE RELEASE) PO PRN ×3 (06:05→21:00)
[2021-05-01 06:36] LABS: Basophils # (auto) 0.02 K/uL (0-0.2); Basophils % (auto) 0.3 %; Eosinophils # (auto) 0.44 K/uL (0-0.5); Eosinophils % (auto) 5.6 %; Hematocrit (blood only) 29.8 % (37-47); Hemoglobin 9.2 g/dL (12.0-16.0); Immature Granulocytes # (auto) 0.06 K/uL (0.00-0.02); Immature Granulocytes % (auto) 0.8 %; Lymphocytes # (auto) 1.22 K/uL (1.2-3.4); Lymphocytes % (auto) 15.6 %; Mean Corpuscular Hemoglobin 28.6 pg (25-34); Mean Corpuscular Hgb Conc 30.9 g/dL (32-36); Mean Corpuscular Volume 92.5 fL (80-100); Mean Platelet Volume 8.8 fL (7.4-10.4); Monocytes # (auto) 1.16 K/uL (0.11-0.59); Monocytes % (auto) 14.8 %; Neutrophils # (auto) 4.93 K/uL (1.4-6.5); Neutrophils % (auto) 62.9 %; Platelet Count 222 K/uL (130-400); RDW Coefficient of Variation 18.5 % (11.5-14.5); RDW Standard Deviation 61.9 fL (36.4-46.3); Red Blood Count 3.22 M/uL (4.2-5.4); White Blood Count 7.83 K/uL (4.8-10.8)
[2021-05-01 06:59] LABS: Calcium 9.1 mg/dl (8.5-10.1); Creatinine Clr Calc Pharmacy 50.3 ml/min; Est GFR (African American) 60.3 ml/min; Est GFR (Non-African American) 52.1 ml/min; Potassium 4.6 mmol/L (3.5-5.1)
[2021-05-01] MEDS: ASPIRIN 81 MG ECTAB PO SCH (08:36)
[2021-05-01] MEDS: ASCORBIC ACID 500 MG TAB PO SCH ×2 (08:36→14:25)
[2021-05-01] MEDS: METOPROLOL SUCC 50MG EXT REL TAB PO SCH ×2 (08:37→20:53)
[2021-05-01] MEDS: CALCITRIOL 0.25 MCG CAPSULE PO SCH (08:37)
[2021-05-01] MEDS: CYANOCOBALAMIN (B-12) 500 MCG TABLET PO SCH (08:38)
[2021-05-01] MEDS: ZINC SULFATE 220 MG CAPSULE PO SCH (08:38)
[2021-05-01] MEDS: PANTOprazole 40 MG TAB PO SCH ×2 (08:38→20:52)
--- NOTE | 2021-05-01 09:12 | Surgery Progress Note ---
Date of Service May 01, 2021 Assessment & Plan (1) S/P right hemicolectomy: (2) Chronic diastolic heart failure: (3) Paroxysmal atrial fibrillation: (4) Chronic kidney disease (CKD), stage III (moderate): Plan: POD # 4 s/p laparoscopic assisted right hemicolectomy -afebrile, vital signs stable - Hgb 9.2, stable, status post 1 unit of packed red blood cells - abdomen is soft, nondistended, good bowel sounds, tender at incision sites, hematoma at RLQ incision site - pain controlled -Positive flatus and liquid stool Plan: Okay for soft diet Continue pain management as needed Okay from surgical standpoint to discontinue Heller catheter if okay with nep hrology IV fluids per medicine and nephrology SCDs for DVT prophylaxis, will hold heparin given need for transfusion and right lower quadrant hematoma Continue pt/ot, will ask case management to see patient again to determine discharge planning. Patient would like to go home and sister will be present for 1 week. May need home health services. oob to chair today and ambulate hallway continue boost Dr. Perera covering this weekend Dr. Salamanca has seen and examined pt, agrees with above. Admission and Anticipated Discharge Date Admission Date: April 29, 2021 Subjective Not feeling great today Not a great appetite this morning Pass gas and belching last evening with some small bowel movement and liquid stool Some abdominal pain this morning in the right lower abdomen No chest pain or shortness of breath Does not want to do rehab would like to go home. States her sister will be coming in from [place] and staying with her for 1 week. Still has Heller catheter in Physical Exam Constitutional: WD/WN, vitals as above no acute distress Neck: normal visual inspection and trachea midline Respiratory: normal respiratory effort; no respiratory distress and no labored breathing Gastrointestinal (Abdomen): Inspection/Auscultation: + abdominal surgical incision (Clean, dry, intact with Dermabond); abdomen not distended Percussion/Palpation: + abdomen tender (Right lower quadrant) and abdomen soft; no guarding and abdomen not rigid Ecchymosis present in the right lower quadrant and right flank Skin: no rashes, warm and dry Psychiatric: Orientation: alert and oriented x 3 Results & Data ([facility]) Vital Signs (Past 12 Hours) Vital Signs Temp Pulse Pulse Resp BP BP Pulse Ox 05/01/21 07:56 36.3 C L 97 H 18 157/94 H 05/01/21 07:00 37.0 C 92 H 18 165/93 H 98 05/01/21 03:57 36.4 C L 86 18 151/96 H 98 04/30/21 23:00 37.2 C 96 H 20 155/90 H 100 Laboratory Results 05/01/21 05/01/21 04/27/21 Range/Units 06:24 06:24 10:28 WBC 7.83 (4.8-10.8) K/uL RBC 3.22 L (4.2-5.4) M/uL Hgb 9.2 L (12.0-16.0) g/dL Hct 29.8 L (37-47) % MCV 92.5 (80-100) fL MCH 28.6 (25-34) pg MCHC 30.9 L (32-36) g/dL RDW Std Deviation 61.9 H (36.4-46.3) fL RDW Coeff of Nicholas 18.5 H (11.5-14.5) % Plt Count 222 (130-400) K/uL MPV 8.8 (7.4-10.4) fL Immature Gran % (Auto) 0.8 % Neut % (Auto) 62.9 % Lymph % (Auto) 15.6 % Lanier % (Auto) 14.8 % Eos % (Auto) 5.6 % Baso % (Auto) 0.3 % Neut # (Auto) 4.93 (1.4-6.5) K/uL Lymph # (Auto) 1.22 (1.2-3.4) K/uL Lanier # (Auto) 1.16 H (0.11-0.59) K/uL Eos # (Auto) 0.44 (0-0.5) K/uL Baso # (Auto) 0.02 (0-0.2) K/uL Immature Gran # (Auto) 0.06 H (0.00-0.02) K/uL Sodium 133 L (136-145) mmol/L Potassium 4.6 (3.5-5.1) mmol/L Chloride 105 (98-107) mmol/L Carbon Dioxide 25 (21-32) mmol/L Anion Gap 3 (3-11) BUN 18 (6-23) mg/dl Creatinine 1.00 (0.6-1.2) mg/dl Est Cr Clr Drug Dosing 50.3 ml/min Est GFR ( Amer) 60.3 ml/min Est GFR (Non-Af Amer) 52.1 ml/min BUN/Creatinine Ratio 18.0 (10-20) Glucose 100 H (70-99(Fasting)) mg/dl Calcium 9.1 (8.5-10.1) mg/dl Crossmatch See Detail
[2021-05-01] MEDS: ALUMINUM/MAGNESIUM/SIMETH (MAALOX MAX) 30 ML UDC PO PRN (09:28)
[2021-05-01] MEDS ORDERED: FAMOTIDINE 20 MG in SYRINGE 3 ML IV SCH (12:30)
[2021-05-01] MEDS ORDERED: FAMOTIDINE 20 MG in SYRINGE 3 ML IV ONE (12:40)
--- NOTE | 2021-05-01 13:40 | Hospitalist Progress Note ---
Date of Service May 01, 2021 Assessment & Plan (1) Colon adenocarcinoma: (2) S/P right hemicolectomy: Plan: This is an 85yo F with a PMH of colon adenocarcinoma, paroxysmal atrial fibrillation not on anticoagulation due to fall risk, chronic diastolic heart failure, s/p pacemaker, CKD III, MARTI on 2L NC O2 HS, s/p R Laparoscopic Hemicolectomy by Surgery Dr. Salamanca performed on 04/27/21 Day #4 status post laparoscopic right hemicolectomy for adenocarcinoma of the cecum. No postop complications Incentive spirometry Continue PPI Clear liquid diet as tolerated -tolerating clears Pain seems to be reasonably controlled Has been passing gas and clears has been started by the surgery Diet advanced and is tolerating Acute blood loss anemia Hemoglobin dropped to 7.4 and she is getting 1 unit of blood transfusion as of 04/29/2021 Hemoglobin remains stable following blood transfusion at 8.8 Hemoglobin remains stable Irritation in the throat and esophagus Likely secondary reflux disease Will increase PPI to twice daily Has been getting antacid as needed (3) Chronic diastolic heart failure: Plan: Continue to hold home lasix dose Monitor closely while off lasix and on gentle IV fluid No signs and/or symptoms of fluid overload (4) Paroxysmal atrial fibrillation: Plan: Continue Toprol 200mg BID. Not on anticoagulation due to h/o bleeding and frequent falls Heart rate is reasonably controlled (5) Chronic kidney disease (CKD), stage III (moderate): Plan: Acute kidney injury on chronic kidney disease Creatinine increased to 1.7 today, baseline creatinine 1-1.2 Continue to hold home lasix dose Continue gentle IVF at 50 mL/h Appreciate nephrology input and recommendation We will monitor PRP-BUN and creatinine is 32/1.57, slightly better Her creatinine has been normalized as of 04/30/2021 Electrolyte imbalance Hyponatremia with sodium of 127 as of 04/29/2021 Sodium level remains low at 129 (6) Pacemaker: Plan: H/o sinus bradycardia s/p PM placement (7) Depression: (8) Anxiety: Plan: Continue duloxetine, home PRN Ativan (9) Sleep apnea: Plan: 2L NC O2 HS DVT Ppx: Per surgical service Code status: FULL Disposition as per ortho Admission and Anticipated Discharge Date Admission Date: April 29, 2021 Subjective 04/29/2021 The patient was seen and examined in medical telemetry unit She complains to have generalized weakness and some abdominal discomfort Her bowel has not moved yet Denies any nausea or vomiting and no fever and chills 04/30/2021 The patient was seen and examined in medical telemetry unit She has been feeling much better with minimal discomfort in the abdomen No nausea and or vomiting She has been passing gases but no bowel movement 05/01/2021 The patient was seen and examined in medical telemetry unit She complains to have burning in the throat Denies any abdominal distention but has little discomfort Has not moved her bowels yet She likes to go home with her sister Review of Systems Review of Systems: All systems reviewed and are unremarkable except as noted below Gastrointestinal: Minimal abdominal discomfort without nausea and or vomiting Physical Exam Physical Exam: Lying in bed comfortably Constitutional: well developed, well nourished, + ill appearing and + obese Eyes: PERRL, conjunctivae normal, anicteric sclerae ENMT: external ear and nose normal, oropharynx normal Neck: trachea midline, no thyromegaly Respiratory: no respiratory distress Auscultation: lungs clear to auscultation bilaterally Cardiovascular: Rate/Rhythm: + irregularly irregular; not tachycardic Heart Sounds: normal S1 and normal S2; no murmur Extremities: + edema (Trace edema bilaterally) Gastrointestinal (Abdomen): Inspection/Auscultation: normal bowel sounds (Diminished); abdomen not distended Percussion/Palpation: + abdomen tender and abdomen soft Musculoskeletal: No acute arthritis in any joint Neurologic: Alert, awake and oriented x3. Generally weak but no focal neuro deficit Results & Data Results & Data ([facility]) Vital Signs (Past 12 Hours) Vital Signs Temp Pulse Pulse Resp BP BP Pulse Ox 05/01/21 10:39 36.3 C L 108 H 17 96 05/01/21 07:56 36.3 C L 97 H 18 157/94 H 98 05/01/21 07:00 37.0 C 92 H 18 165/93 H 98 05/01/21 03:57 36.4 C L 86 18 151/96 H 98 Laboratory Results Short CBC 05/01/21 Range/Units 06:24 WBC 7.83 (4.8-10.8) K/uL Hgb 9.2 L (12.0-16.0) g/dL Hct 29.8 L (37-47) % Plt Count 222 (130-400) K/uL BMP 05/01/21 06:24 Sodium 133 L Potassium 4.6 Chloride 105 Carbon Dioxide 25 BUN 18 Creatinine 1.00 Glucose 100 H Calcium 9.1 Medications Administered Current Inpatient Medications Acetaminophen (Acetaminophen 325 Mg Tab) 650 mg PO Q6H PRN PRN Reason: Pain Stop: 05/31/21 12:01 Al Hydrox/Mg Hydrox/Simethicone (Aluminum/Magnesium/Simeth (Maalox Max) 30 Ml Udc) 15 ml PO Q6H PRN PRN Reason: Heartburn Stop: 05/29/21 11:02 Last Admin: 05/01/21 09:28 Dose: 15 ml Documented by: Ascorbic Acid (Ascorbic Acid 500 Mg Tab) 1,000 mg PO [facility] Stop: 05/28/21 08:59 Last Admin: 05/01/21 08:36 Dose: 1,000 mg Documented by: Ascorbic Acid (Ascorbic Acid 500 Mg Tab) 125 mg PO DAILY@1200 [facility] Stop: 05/28/21 11:59 Last Admin: 04/30/21 11:59 Dose: 125 mg Documented by: Aspirin (Aspirin 81 Mg Ectab) [facility] [place] Stop: 05/28/21 08:59 Last Admin: 05/01/21 08:36 Dose: 81 mg Documented by: Atorvastatin Calcium (Atorvastatin 40 Mg Tab) 40 mg PO [facility] Stop: 05/27/21 20:59 Last Admin: 04/30/21 20:15 Dose: 40 mg Documented by: Calcitriol (Calcitriol 0.25 Mcg Capsule) 1 mcg PO DAILY [facility] Stop: 05/28/21 08:59 Last Admin: 05/01/21 08:37 Dose: 1 mcg Documented by: Cyanocobalamin (Cyanocobalamin (B-12) 500 Mcg Tablet) 1,000 mcg PO MoWeFr@0900 [facility] Stop: 05/27/21 19:49 Last Admin: 05/01/21 08:38 Dose: 1,000 mcg Documented by: Duloxetine HCl (Duloxetine Hcl 20 Mg Cap) 20 mg [facility] [place] Stop: 05/28/21 08:59 Last Admin: 04/28/21 08:30 Dose: 20 mg Documented by: Ferrous Sulfate (Ferrous Sulfate 325 Mg Tab) 325 mg PO DAILY@1200 [facility] Stop: 05/28/21 11:59 Last Admin: 04/30/21 11:59 Dose: 325 mg Documented by: Heparin Sodium (Porcine) (Heparin Sod 5,000 Unit/0.5 Ml Vial) 5,000 units SQ Q8 [facility] Stop: 05/28/21 21:59 Last Admin: 04/29/21 05:33 Dose: 5,000 units Documented by: Hydromorphone HCl (Hydromorphone Inj 0.5 Mg/0.5 Ml Syr) 0.25 mg IV Q3H PRN PRN Reason: Pain Stop: 05/12/21 20:40 Last Admin: 04/29/21 08:12 Dose: 0.25 mg Documented by: Promethazine HCl 6.25 mg/ (Sodium Chloride) 50.25 mls @ 201 mls/hr IV Q6H PRN PRN Reason: Nausea And Vomiting Stop: 05/28/21 06:47 Sodium Chloride (Nss 1000ml) 1,000 mls @ 50 mls/hr IV .Q20H [facility] Stop: 05/29/21 04:59 Last Admin: 04/30/21 20:16 Dose: 50 mls/hr Documented by: Ketorolac Tromethamine (Ketorolac Tromethamine 15 Mg/Ml Vial) 15 mg IV Q6H [facility] Stop: 05/03/21 07:59 Last Admin: 04/28/21 19:47 Dose: 15 mg Documented by: Latanoprost (Latanoprost 0.005% Op Soln 2.5 Ml Btl) 1 drops OP PM [facility] Stop: 05/27/21 20:59 Last Admin: 04/30/21 21:43 Dose: 1 drops Documented by: Lorazepam (Lorazepam 0.5 Mg Tab) 0.5 mg PO DAILY PRN PRN Reason: Anxiety Stop: 05/27/21 19:37 Last Admin: 04/30/21 22:12 Dose: 0.5 mg Documented by: Menthol (Cough Drop (Sugar Free) Omega 24 Omega/1 Box) 1 omega BUCCAL Q2H PRN PRN Reason: Sore Throat Stop: 05/28/21 20:31 Metoprolol Succinate (Metoprolol Succ 50mg Ext Rel Tab) 50 mg PO BID [facility] Stop: 05/29/21 08:59 Last Admin: 05/01/21 08:37 Dose: 50 mg Documented by: Oxycodone HCl (Oxycodone Hcl Ir 5 Mg Tab (Immediate Release)) 5 mg PO Q4H PRN PRN Reason: Pain Stop: 05/12/21 20:39 Last Admin: 05/01/21 10:22 Dose: 5 mg Documented by: Pantoprazole Sodium (Pantoprazole 40 Mg Tab) 40 mg PO BID [facility] Stop: 05/31/21 20:59 Phenol (Chloraseptic 1.4% Soln 180 Ml Btl) 1 sprays MT Q2H PRN PRN Reason: throat discomfort Stop: 05/28/21 20:31 Last Admin: 04/28/21 20:53 Dose: 1 sprays Documented by: Senna/Docusate Sodium (Docusate Sodium/Senna 50/8.6mg Tab) 2 tab PO HS [facility] Stop: 05/30/21 20:59 Last Admin: 04/30/21 20:16 Dose: 2 tab Documented by: Zinc Sulfate (Zinc Sulfate 220 Mg Capsule) 220 mg PO QAM [facility] Stop: 05/28/21 08:59 Last Admin: 05/01/21 08:38 Dose: 220 mg Documented by:
[2021-05-01] MEDS ORDERED: METOPROLOL SUCC 25MG EXT REL TAB PO ONE (14:15)
[2021-05-01] MEDS: FERROUS SULFATE 325 MG TAB PO SCH (14:25)
[2021-05-01] MEDS: SODIUM CHLORIDE 0.9% 1000ML 1,000 ML IV SCH (15:05)
--- NOTE | 2021-05-01 16:05 | Nephrology Progress Note ---
Date of Service May 01, 2021 Assessment & Plan (1) Electrolyte and fluid disorder: Plan: sNa ann 126, was 130 on admission; up to 133 this am w/ serum osms normal and urine chemistries c/w mild volume depletion. no issues historically w/ hyponatremia, at least not as inpatient. -continue NS current rate 50 mL /hr -goal sNa for tomorrow am normal value -encourage PO - -cont strict I/O but ok to d/c anthony < order in -daily bmp ok for now (2) Acute on chronic renal failure: Plan: baseline creatinine 1.0-1.1 historically but more in 1.3 range since january admission. may worsen before she improves. ? ischemic changes versus prerenal<>hypotension in the setting of nsaids: peak creatinine 1.7 this am improved to 1.0 today. -no indication for dialysis discussion or renal imaging currently -daily bmp -continue to avoid nephrotoxins -strict I/O WILL sign off NEPHRO DISCHARGE RECOMMENDATIONS -weekly BMP x 3 to be ordered by nephro nurse after discharge -HOSPITAL DISCHARGE appt with [facility] in [facility] [place]/in a month -ok to resume routine OP meds, including lasix, losartan, spironolactone at d/c (3) Labile blood pressure: Plan: sbp in 90s for about 10h on 04/28; meds already adjusted >monitor (4) Anemia of chronic disease: Plan: for pRBC today Admission and Anticipated Discharge Date Admission Date: April 29, 2021 Subjective no BM yet but +flatus; wants anthony out; signfiicant HB and eating less d/t this Review of Systems Review of Systems: All systems reviewed & are unremarkable except as noted in Subjective Physical Exam Constitutional: well developed and well nourished; no acute distress Eyes: EOM intact bilaterally ENMT: Ears: no external ear abnormality Nose: no external nose abnormality Mouth: + dry oral mucous membranes Neck: no nuchal rigidity Respiratory: normal respiratory effort (on RA) Auscultation: + diminished l neeru sounds Cardiovascular: Rate/Rhythm: + tachycardic and + irregularly irregular Extremities: no edema Gastrointestinal (Abdomen): Inspection/Auscultation: normal bowel sounds Percussion/Palpation: + abdomen tender (tender to mild palpation > surgical incisions c/d/i) and abdomen soft Musculoskeletal: Extremities: strength 5/5 throughout Skin: no rashes, warm and dry Psychiatric: Orientation: oriented x 3 Insight: good insight Judgement: good judgement Results & Data ([facility]) Vital Signs (Past 12 Hours) Vital Signs Temp Pulse Pulse Pulse Resp BP BP 05/01/21 15:17 37.0 C 105 H 18 133/81 05/01/21 10:39 36.3 C L 108 H 17 05/01/21 08:00 95 H 05/01/21 07:56 36.3 C L 97 H 18 157/94 H 05/01/21 07:00 37.0 C 92 H 18 165/93 H Pulse Ox 05/01/21 15:17 90 05/01/21 10:39 96 05/01/21 08:00 05/01/21 07:56 98 05/01/21 07:00 98 Laboratory Results 05/01/21 06:24 05/01/21 06:24
[2021-05-01] MEDS: DOCUSATE SODIUM/SENNA 50/8.6MG TAB PO SCH (20:52)
[2021-05-01] MEDS: ATORVASTATIN 40 MG TAB PO SCH (20:52)
[2021-05-01] MEDS: LATANOPROST 0.005% OP SOLN 2.5 ML BTL OP SCH (23:36)
[2021-05-02] MEDS: oxyCODONE HCL IR 5 MG TAB (IMMEDIATE RELEASE) PO PRN ×3 (06:18→23:44)
[2021-05-02] MEDS: ZINC SULFATE 220 MG CAPSULE PO SCH (08:00)
[2021-05-02] MEDS: ASCORBIC ACID 500 MG TAB PO SCH ×2 (08:01→08:04)
[2021-05-02] MEDS: CALCITRIOL 0.25 MCG CAPSULE PO SCH (08:01)
[2021-05-02] MEDS: PANTOprazole 40 MG TAB PO SCH ×2 (08:01→21:39)
[2021-05-02] MEDS: FERROUS SULFATE 325 MG TAB PO SCH (08:02)
[2021-05-02] MEDS: METOPROLOL SUCC 50MG EXT REL TAB PO SCH ×2 (08:02→21:40)
[2021-05-02] MEDS: ASPIRIN 81 MG ECTAB PO SCH (08:03)
--- NOTE | 2021-05-02 08:12 | Surgery Progress Note ---
Date of Service May 02, 2021 Assessment & Plan (1) Colon adenocarcinoma: Plan: POD 5 lap right colectomy seen with Dr. Trever Young at baseline low fiber diet awaiting BM plans to return home with sisters help...likely in 1-2 days Admission and Anticipated Discharge Date Admission Date: April 29, 2021 Subjective some pain RLQ, tolerating low fiber diet, no BM yet, amb some with PT Physical Exam Constitutional: WD/WN, vitals as above Gastrointestinal (Abdomen): Inspection/Auscultation: + abdominal wall ecchymosis (RLQ) and + abdominal surgical incision (dry); abdomen not distended Results & Data ([facility]) Vital Signs (Past 12 Hours) Vital Signs Temp Pulse Pulse Resp BP Pulse Ox 05/02/21 07:43 37.3 C 107 H 17 137/77 92 05/02/21 07:24 100 H 05/02/21 03:30 37.2 C 97 H 20 135/79 99 05/01/21 23:00 37.6 C H 77 20 145/91 H 100 05/01/21 22:25 95 H PG Care Time/CCT Total # of Minutes Spent Total Time Spent with Patient: Total time spent is greater than 50% in coordination of care (as documented) at patient's floor/unit and/or counseling patient: Coding Level of Care Code 99484 Subseq Hosp Care Lvl 1 Diagnoses Colon adenocarcinoma C18.9
[2021-05-02] MEDS ORDERED: METOPROLOL SUCC 50MG EXT REL TAB PO ONE (09:00)
[2021-05-02] MEDS: ALUMINUM/MAGNESIUM/SIMETH (MAALOX MAX) 30 ML UDC PO PRN (09:15)
[2021-05-02] MEDS: SODIUM CHLORIDE 0.9% 1000ML 1,000 ML IV SCH (11:07)
[2021-05-02] MEDS: NYSTATIN SUSP 500,000 U/5 ML UDC PO SCH ×3 (11:51→21:39)
[2021-05-02] MEDS: SUCRALFATE 1 GM/10 ML UDC PO SCH ×3 (11:51→21:38)
--- NOTE | 2021-05-02 13:58 | Hospitalist Progress Note ---
Date of Service May 02, 2021 Assessment & Plan (1) Colon adenocarcinoma: (2) S/P right hemicolectomy: Plan: This is an 85yo F with a PMH of colon adenocarcinoma, paroxysmal atrial fibrillation not on anticoagulation due to fall risk, chronic diastolic heart failure, s/p pacemaker, CKD III, MARTI on 2L NC O2 HS, s/p R Laparoscopic Hemicolectomy by Surgery Dr. Salamanca performed on 04/27/21 Day #5 status post laparoscopic right hemicolectomy for adenocarcinoma of the cecum. No postop complications Incentive spirometry Continue PPI Clear liquid diet as tolerated -tolerating clears Pain seems to be reasonably controlled Has been passing gas and clears has been started by the surgery Diet advanced and is tolerating Likely discharge on Tuesday Acute blood loss anemia Hemoglobin dropped to 7.4 and she is getting 1 unit of blood transfusion as of 04/29/2021 Hemoglobin remains stable following blood transfusion at 8.8 Hemoglobin remains stable Irritation in the throat and esophagus Likely secondary reflux disease Will increase PPI to twice daily Has been getting antacid as needed Still complains to have burning in the esophagus-we will add sucralfate and nystatin orally (3) Chronic diastolic heart failure: Plan: Continue to hold home lasix dose Monitor closely while off lasix and on gentle IV fluid No signs and/or symptoms of fluid overload (4) Paroxysmal atrial fibrillation: Plan: Continue Toprol 200mg BID. Not on anticoagulation due to h/o bleeding and frequent falls Heart rate is reasonably controlled Beta-baron doses have been increased to 200 mg twice daily (5) Chronic kidney disease (CKD), stage III (moderate): Plan: Acute kidney injury on chronic kidney disease Creatinine increased to 1.7 today, baseline creatinine 1-1.2 Continue to hold home lasix dose Continue gentle IVF at 50 mL/h Appreciate nephrology input and recommendation We will monitor PRP-BUN and creatinine is 32/1.57, slightly better Her creatinine has been normalized as of 04/30/2021 Electrolyte imbalance Hyponatremia with sodium of 127 as of 04/29/2021 Sodium level remains low at 129-improved at 133 (6) Pacemaker: Plan: H/o sinus bradycardia s/p PM placement (7) Depression: (8) Anxiety: Plan: Continue duloxetine, home PRN Ativan (9) Sleep apnea: Plan: 2L NC O2 HS DVT Ppx: Per surgical service Code status: FULL Disposition as per ortho Admission and Anticipated Discharge Date Admission Date: April 29, 2021 Subjective 04/29/2021 The patient was seen and examined in medical telemetry unit She complains to have generalized weakness and some abdominal discomfort Her bowel has not moved yet Denies any nausea or vomiting and no fever and chills 04/30/2021 The patient was seen and examined in medical telemetry unit She has been feeling much better with minimal discomfort in the abdomen No nausea and or vomiting She has been passing gases but no bowel movement 05/01/2021 The patient was seen and examined in medical telemetry unit She complains to have burning in the throat Denies any abdominal distention but has little discomfort Has not moved her bowels yet She likes to go home with her sister 05/02/2021 The patient was seen and examined in medical telemetry unit She still complains to have burning in the esophagus and also epigastrium He has had nausea but no vomiting Complains to have abdominal discomfort and bowel has not moved yet Review of Systems Review of Systems: All systems reviewed and are unremarkable except as noted below Physical Exam Physical Exam: Lying in bed comfortably Constitutional: well developed, well nourished, + ill appearing and + obese Eyes: PERRL, conjunctivae normal, anicteric sclerae ENMT: external ear and nose normal, oropharynx normal Neck: trachea midline, no thyromegaly Respiratory: no respiratory distress Auscultation: lungs clear to auscultation bilaterally Cardiovascular: Rate/Rhythm: + irregularly irregular; not tachycardic Heart Sounds: normal S1 and normal S2; no murmur Extremities: + edema (Trace edema bilaterally) Gastrointestinal (Abdomen): Inspection/Auscultation: normal bowel sounds (Diminished); abdomen not distended Percussion/Palpation: + abdomen tender and abdomen soft Musculoskeletal: No acute arthritis in any joint Neurologic: Alert, awake and oriented x3. Generally weak but no focal sensory and motor deficit appreciated Results & Data Results & Data ([facility]) Vital Signs (Past 12 Hours) Vital Signs Temp Pulse Pulse Resp BP Pulse Ox 05/02/21 11:26 37.0 C 108 H 18 142/92 H 95 05/02/21 07:43 37.3 C 107 H 17 137/77 92 05/02/21 07:24 100 H 05/02/21 03:30 37.2 C 97 H 20 135/79 99 Medications Administered Current Inpatient Medications Acetaminophen (Acetaminophen 325 Mg Tab) 650 mg PO Q6H PRN PRN Reason: Pain Stop: 05/31/21 12:01 Al Hydrox/Mg Hydrox/Simethicone (Aluminum/Magnesium/Simeth (Maalox Max) 30 Ml Udc) 15 ml PO Q6H PRN PRN Reason: Heartburn Stop: 05/29/21 11:02 Last Admin: 05/02/21 09:15 Dose: 15 ml Documented by: Ascorbic Acid (Ascorbic Acid 500 Mg Tab) [facility] [place] Stop: 05/28/21 08:59 Last Admin: 05/02/21 08:01 Dose: 1,000 mg Documented by: Ascorbic Acid (Ascorbic Acid 500 Mg Tab) 125 mg PO DAILY@1200 [facility] Stop: 05/28/21 11:59 Last Admin: 05/02/21 08:04 Dose: 125 mg Documented by: Aspirin (Aspirin 81 Mg Ectab) 81 mg PO [facility] Stop: 05/28/21 08:59 Last Admin: 05/02/21 08:03 Dose: 81 mg Documented by: Atorvastatin Calcium (Atorvastatin 40 Mg Tab) 40 mg PO HS [facility] Stop: 05/27/21 20:59 Last Admin: 05/01/21 20:52 Dose: 40 mg Documented by: Calcitriol (Calcitriol 0.25 Mcg Capsule) 1 mcg PO DAILY [facility] Stop: 05/28/21 08:59 Last Admin: 05/02/21 08:01 Dose: 1 mcg Documented by: Cyanocobalamin (Cyanocobalamin (B-12) 500 Mcg Tablet) 1,000 mcg PO MoWeFr@0900 [facility] Stop: 05/27/21 19:49 Last Admin: 05/01/21 08:38 Dose: 1,000 mcg Documented by: Duloxetine HCl (Duloxetine Hcl 20 Mg Cap) [facility] [place] Stop: 05/28/21 08:59 Last Admin: 04/28/21 08:30 Dose: 20 mg Documented by: Ferrous Sulfate (Ferrous Sulfate 325 Mg Tab) 325 mg PO DAILY@1200 [facility] Stop: 05/28/21 11:59 Last Admin: 05/02/21 08:02 Dose: 325 mg Documented by: Heparin Sodium (Porcine) (Heparin Sod 5,000 Unit/0.5 Ml Vial) 5,000 units SQ Q8 [facility] Stop: 05/28/21 21:59 Last Admin: 04/29/21 05:33 Dose: 5,000 units Documented by: Hydromorphone HCl (Hydromorphone Inj 0.5 Mg/0.5 Ml Syr) 0.25 mg IV Q3H PRN PRN Reason: Pain Stop: 05/12/21 20:40 Last Admin: 04/29/21 08:12 Dose: 0.25 mg Documented by: Promethazine HCl 6.25 mg/ (Sodium Chloride) 50.25 mls @ 201 mls/hr IV Q6H PRN PRN Reason: Nausea And Vomiting Stop: 05/28/21 06:47 Sodium Chloride (Nss 1000ml) 1,000 mls @ 50 mls/hr IV .Q20H [facility] Stop: 05/29/21 04:59 Last Admin: 05/02/21 11:07 Dose: 50 mls/hr Documented by: Ketorolac Tromethamine (Ketorolac Tromethamine 15 Mg/Ml Vial) 15 mg IV Q6H [facility] Stop: 05/03/21 07:59 Last Admin: 04/28/21 19:47 Dose: 15 mg Documented by: Latanoprost (Latanoprost 0.005% Op Soln 2.5 Ml Btl) 1 drops OP PM [facility] Stop: 05/27/21 20:59 Last Admin: 05/01/21 23:36 Dose: 1 drops Documented by: Lorazepam (Lorazepam 0.5 Mg Tab) 0.5 mg PO DAILY PRN PRN Reason: Anxiety Stop: 05/27/21 19:37 Last Admin: 04/30/21 22:12 Dose: 0.5 mg Documented by: Menthol (Cough Drop (Sugar Free) Jodi 24 Jodi/1 Box) 1 jodi BUCCAL Q2H PRN PRN Reason: Sore Throat Stop: 05/28/21 20:31 Metoprolol Succinate (Metoprolol Succ 50mg Ext Rel Tab) 200 mg PO BID [facility] Stop: 06/01/21 20:59 Nystatin (Nystatin Susp 500,000 U/5 Ml Udc) 5 ml PO QID [facility] Stop: 06/01/21 12:59 Last Admin: 05/02/21 11:51 Dose: 5 ml Documented by: Oxycodone HCl (Oxycodone Hcl Ir 5 Mg Tab (Immediate Release)) 5 mg PO Q4H PRN PRN Reason: Pain Stop: 05/12/21 20:39 Last Admin: 05/02/21 06:18 Dose: 5 mg Documented by: Pantoprazole Sodium (Pantoprazole 40 Mg Tab) 40 mg PO BID [facility] Stop: 05/31/21 20:59 Last Admin: 05/02/21 08:01 Dose: 40 mg Documented by: Phenol (Chloraseptic 1.4% Soln 180 Ml Btl) 1 sprays MT Q2H PRN PRN Reason: throat discomfort Stop: 05/28/21 20:31 Last Admin: 04/28/21 20:53 Dose: 1 sprays Documented by: Senna/Docusate Sodium (Docusate Sodium/Senna 50/8.6mg Tab) 2 tab PO HS [facility] Stop: 05/30/21 20:59 Last Admin: 05/01/21 20:52 Dose: 2 tab Documented by: Sucralfate (Sucralfate 1 Gm/10 Ml Udc) 1 gm PO QID [facility] Stop: 06/01/21 12:59 Last Admin: 05/02/21 11:51 Dose: 1 gm Documented by: Zinc Sulfate (Zinc Sulfate 220 Mg Capsule) 220 mg PO QAM [facility] Stop: 05/28/21 08:59 Last Admin: 05/02/21 08:00 Dose: 220 mg Documented by:
[2021-05-02] MEDS: ATORVASTATIN 40 MG TAB PO SCH (21:40)
[2021-05-02] MEDS: DOCUSATE SODIUM/SENNA 50/8.6MG TAB PO SCH (21:40)
[2021-05-02] MEDS: CHLORASEPTIC 1.4% SOLN 180 ML BTL MT PRN (21:41)
[2021-05-02] MEDS: LATANOPROST 0.005% OP SOLN 2.5 ML BTL OP SCH (21:41)
[2021-05-03] MEDS: SODIUM CHLORIDE 0.9% 1000ML 1,000 ML IV SCH (06:30)
[2021-05-03] MEDS: CHLORASEPTIC 1.4% SOLN 180 ML BTL MT PRN ×2 (06:33→19:35)
[2021-05-03 06:40] LABS: Hematocrit (blood only) 28.2 % (37-47); Hemoglobin 8.7 g/dL (12.0-16.0); Mean Corpuscular Hemoglobin 28.7 pg (25-34); Mean Corpuscular Hgb Conc 30.9 g/dL (32-36); Mean Corpuscular Volume 93.1 fL (80-100); Mean Platelet Volume 8.7 fL (7.4-10.4); Platelet Count 241 K/uL (130-400); RDW Coefficient of Variation 19.2 % (11.5-14.5); RDW Standard Deviation 63.4 fL (36.4-46.3); Red Blood Count 3.03 M/uL (4.2-5.4); White Blood Count 10.14 K/uL (4.8-10.8)
[2021-05-03 06:57] LABS: Albumin Globulin Ratio 1.2 (0.9-2); BUN Creatinine Ratio 17.7 (10-20); Bilirubin,Total 1.3 mg/dl (0.2-1.0); Creatinine Clr Calc Pharmacy 53.5 ml/min; Est GFR (African American) 63.4 ml/min; Est GFR (Non-African American) 54.7 ml/min; Globulin 2.6 gm/dl (2.5-4.0); Magnesium 1.9 mg/dl (1.7-2.4); Phosphorus 2.3 mg/dl (2.5-4.9); Potassium 4.6 mmol/L (3.5-5.1); Total Protein 5.6 gm/dl (6.0-8.3)
[2021-05-03 07:08] LABS: ALC (manual) 0.44 K/uL (1.2-3.4); ANC (manual) 7.41 K/uL (1.4-6.5); Basophils # (manual) 0.17 K/uL (0-0.2); Basophils % (manual) 1.7 %; Eosinophils # (manual) 0.44 K/uL (0-0.5); Eosinophils % (manual) 4.3 %; Lymphocytes # (manual) 0.44 K/uL (1.2-3.4); Lymphocytes % (manual) 4.3 %; Metamyelocytes # (manual) 0.09 K/uL (0-0); Metamyelocytes % (manual) 0.9 %; Monocytes % (manual) 14.8 %; Myelocytes # (manual) 0.09 K/uL (0-0); Myelocytes % (manual) 0.9 %; Neutrophils # (manual) 7.41 K/uL (1.4-6.5); Neutrophils % (manual) 73.1 %; Polychromasia 1+
--- NOTE | 2021-05-03 07:47 | Surgery Progress Note ---
Date of Service May 03, 2021 Assessment & Plan (1) H/O colectomy: Plan: Eating a small amount Does not have much energy, unable to walk yesterday secondary to availability of help Passing a small amount of flatus but no bowel movement Some right-sided abdominal pain Her abdomen is relatively soft and she does have some bowel sounds I do not feel she can go home yet-May benefit from extended care but she says Her sister is coming to help her Continue current diet Admission and Anticipated Discharge Date Admission Date: April 29, 2021 Results & Data ([facility]) Vital Signs (Past 12 Hours) Vital Signs Temp Pulse Pulse Resp BP BP Pulse Ox 05/03/21 07:33 37.2 C 103 H 16 132/79 93 05/03/21 02:32 37.2 C 103 H 20 133/88 95 05/02/21 22:25 96 H 05/02/21 22:00 37.6 C H 93 H 18 135/78 96 05/02/21 20:00 37.3 C 91 H 20 152/89 H 96 PG Care Time/CCT Total # of Minutes Spent Total Time Spent with Patient: Total time spent is greater than 50% in coordination of care (as documented) at patient's floor/unit and/or counseling patient: Coding Level of Care Code None Diagnoses H/O colectomy Z90.49
[2021-05-03] MEDS: METOPROLOL SUCC 50MG EXT REL TAB PO SCH ×2 (07:53→21:07)
[2021-05-03] MEDS: CALCITRIOL 0.25 MCG CAPSULE PO SCH (07:54)
[2021-05-03] MEDS: FERROUS SULFATE 325 MG TAB PO SCH (07:54)
[2021-05-03] MEDS: PANTOprazole 40 MG TAB PO SCH ×2 (07:55→21:07)
[2021-05-03] MEDS: ZINC SULFATE 220 MG CAPSULE PO SCH (07:55)
[2021-05-03] MEDS: ASCORBIC ACID 500 MG TAB PO SCH ×2 (07:55)
[2021-05-03] MEDS: ASPIRIN 81 MG ECTAB PO SCH (07:55)
[2021-05-03] MEDS: SUCRALFATE 1 GM/10 ML UDC PO SCH ×4 (07:56→21:06)
[2021-05-03] MEDS: NYSTATIN SUSP 500,000 U/5 ML UDC PO SCH ×4 (07:56→21:07)
[2021-05-03] MEDS: oxyCODONE HCL IR 5 MG TAB (IMMEDIATE RELEASE) PO PRN (08:04)
[2021-05-03] MEDS: SODIUM CHLORIDE 1 GM TABLET PO SCH ×2 (08:12→21:06)
[2021-05-03] MEDS ORDERED: SODIUM PHOSPHATE 12 MMOL in SODIUM CHLORIDE 0.9% 250 ML IV ONE (11:15)
[2021-05-03] MEDS ORDERED: ALUMINUM/MAGNESIUM SUSP 30 ML UDC PO PRN (11:43)
--- NOTE | 2021-05-03 11:47 | Hospitalist Progress Note ---
Date of Service May 03, 2021 Assessment & Plan (1) Colon adenocarcinoma: Plan: Management as below (2) S/P right hemicolectomy: Plan: This is an 85yo F with a PMH of colon adenocarcinoma, paroxysmal atrial fibrillation not on anticoagulation due to fall risk, chronic diastolic heart failure, s/p pacemaker, CKD III, MARTI on 2L NC O2 HS, s/p R Laparoscopic Hemicolectomy by Surgery Dr. Salamanca performed on 04/27/21 Day #5 status post laparoscopic right hemicolectomy for adenocarcinoma of the cecum. No postop complications Incentive spirometry Continue PPI Clear liquid diet as tolerated -tolerating clears Pain seems to be reasonably controlled Has been passing gas and clears has been started by the surgery Diet advanced and is tolerating Likely discharge on Tuesday Has significant anorexia and also dyspepsia Acute blood loss anemia Hemoglobin dropped to 7.4 and she is getting 1 unit of blood transfusion as of 04/29/2021 Hemoglobin remains stable following blood transfusion at 8.8 Hemoglobin remains stable Irritation in the throat and esophagus Likely secondary reflux disease Will increase PPI to twice daily Has been getting antacid as needed Still complains to have burning in the esophagus-we will add sucralfate and nystatin orally Has been getting PPI twice daily, sucralfate and also Maalox If remains symptomatic we will get GI involved on Tuesday (3) Chronic diastolic heart failure: Plan: Continue to hold home lasix dose Monitor closely while off lasix and on gentle IV fluid No signs and/or symptoms of fluid overload (4) Paroxysmal atrial fibrillation: Plan: Continue Toprol 200mg BID. Not on anticoagulation due to h/o bleeding and frequent falls Heart rate is reasonably controlled Beta-baron doses have been increased to 200 mg twice daily (5) Chronic kidney disease (CKD), stage III (moderate): Plan: Acute kidney injury on chronic kidney disease Creatinine increased to 1.7 today, baseline creatinine 1-1.2 Continue to hold home lasix dose Continue gentle IVF at 50 mL/h Appreciate nephrology input and recommendation We will monitor PRP-BUN and creatinine is 32/1.57, slightly better Her creatinine has been normalized as of 04/30/2021 Hyponatremia Electrolyte imbalance Hyponatremia with sodium of 127 as of 04/29/2021 Sodium level remains low at 129-improved at 133 Sodium level has been to 128 Will start sodium tablet twice daily and monitor BMP (6) Pacemaker: Plan: H/o sinus bradycardia s/p PM placement (7) Depression: (8) Anxiety: Plan: Continue duloxetine, home PRN Ativan (9) Sleep apnea: Plan: 2L NC O2 HS DVT Ppx: Per surgical service Code status: FULL Disposition as per ortho Admission and Anticipated Discharge Date Admission Date: April 29, 2021 Subjective 04/29/2021 The patient was seen and examined in medical telemetry unit She complains to have generalized weakness and some abdominal discomfort Her bowel has not moved yet Denies any nausea or vomiting and no fever and chills 04/30/2021 The patient was seen and examined in medical telemetry unit She has been feeling much better with minimal discomfort in the abdomen No nausea and or vomiting She has been passing gases but no bowel movement 05/01/2021 The patient was seen and examined in medical telemetry unit She complains to have burning in the throat Denies any abdominal distention but has little discomfort Has not moved her bowels yet She likes to go home with her sister 05/02/2021 The patient was seen and examined in medical telemetry unit She still complains to have burning in the esophagus and also epigastrium He has had nausea but no vomiting Complains to have abdominal discomfort and bowel has not moved yet 05/03/2021 The patient was seen and examined in medical telemetry unit She continues to have esophageal burning and cannot eat or drink that much Has nausea without vomiting Denies any significant abdominal pain Review of Systems Review of Systems: All systems reviewed and are unremarkable except as noted below Gastrointestinal: Minimal abdominal discomfort without nausea and or vomiting Physical Exam Physical Exam: Lying in bed comfortably Constitutional: well developed, well nourished, + ill appearing and + obese Eyes: PERRL, conjunctivae normal, anicteric sclerae ENMT: external ear and nose normal, oropharynx normal Neck: trachea midline, no thyromegaly Respiratory: no respiratory distress Auscultation: lungs clear to auscultation bilaterally Cardiovascular: Rate/Rhythm: + irregularly irregular; not tachycardic Heart Sounds: normal S1 and normal S2; no murmur Extremities: + edema (Trace edema bilaterally) Gastrointestinal (Abdomen): Inspection/Auscultation: normal bowel sounds (Diminished); abdomen not distended Percussion/Palpation: + abdomen tender and abdomen soft Musculoskeletal: Head/Neck/Chest: normocephalic and neck supple Neurologic: normal touch/pain/proprioception; no focal motor deficits Psychiatric: A+Ox3, euthymic affect Results & Data Results & Data ([facility]) Vital Signs (Past 12 Hours) Vital Signs Temp Pulse Resp BP BP Pulse Ox 05/03/21 11:22 37.6 C H 94 H 16 139/82 94 05/03/21 07:33 37.2 C 103 H 16 132/79 93 05/03/21 02:32 37.2 C 103 H 20 133/88 95 Laboratory Results Short CBC 05/03/21 Range/Units 06:17 WBC 10.14 (4.8-10.8) K/uL Hgb 8.7 L (12.0-16.0) g/dL Hct 28.2 L (37-47) % Plt Count 241 (130-400) K/uL BMP 05/03/21 06:17 Sodium 128 L Potassium 4.6 Chloride 103 Carbon Dioxide 22 BUN 17 Creatinine 0.96 Glucose 101 H Calcium 9.0 Liver Function 05/03/21 Range/Units 06:17 Total Bilirubin 1.3 H (0.2-1.0) mg/dl AST 9 L (13-39) U/L ALT 6 L (7-52) U/L Alkaline Phosphatase 44 (34-104) U/L Albumin 3.0 L (3.4-5.0) gm/dl Medications Administered Current Inpatient Medications Acetaminophen (Acetaminophen 325 Mg Tab) 650 mg PO Q6H PRN PRN Reason: Pain Stop: 05/31/21 12:01 Al Hydrox/Mg Hydrox/Simethicone (Aluminum/Magnesium/Simeth (Maalox Max) 30 Ml Udc) 15 ml PO Q6H PRN PRN Reason: Heartburn Stop: 05/29/21 11:02 Last Admin: 05/02/21 09:15 Dose: 15 ml Documented by: Al Hydrox/Mg Hydrox/Simethicone (Aluminum/Magnesium Susp 30 Ml Udc) 15 ml PO Q6H PRN PRN Reason: Dyspepsia Stop: 06/02/21 11:42 Ascorbic Acid (Ascorbic Acid 500 Mg Tab) 1,000 mg PO QAM ILIANA Stop: 05/28/21 08:59 Last Admin: 05/03/21 07:55 Dose: 1,000 mg Documented by: Ascorbic Acid (Ascorbic Acid 500 Mg Tab) 125 mg PO DAILY@1200 COUNTS INCLUDE 234 BEDS AT [facility] Stop: 05/28/21 11:59 Last Admin: 05/03/21 07:55 Dose: 125 mg Documented by: Aspirin (Aspirin 81 Mg Ectab) 81 [facility] [place]: 05/28/21 08:59 Last Admin: 05/03/21 07:55 Dose: 81 mg Documented by: Atorvastatin Calcium (Atorvastatin 40 Mg Tab) 40 mg PO HS COUNTS INCLUDE 234 BEDS AT THE [facility] Stop: 05/27/21 20:59 Last Admin: 05/02/21 21:40 Dose: 40 mg Documented by: Calcitriol (Calcitriol 0.25 Mcg Capsule) 1 mcg PO DAILY COUNTS INCLUDE 234 BEDS AT THE [facility] Stop: 05/28/21 08:59 Last Admin: 05/03/21 07:54 Dose: 1 mcg Documented by: Cyanocobalamin (Cyanocobalamin (B-12) 500 Mcg Tablet) 1,000 mcg PO MoWeFr@0900 COUNTS INCLUDE 234 BEDS AT THE [facility] Stop: 05/27/21 19:49 Last Admin: 05/01/21 08:38 Dose: 1,000 mcg Documented by: Duloxetine HCl (Duloxetine Hcl 20 Mg Cap) 20 mg PO [facility] Stop: 05/28/21 08:59 Last Admin: 04/28/21 08:30 Dose: 20 mg Documented by: Ferrous Sulfate (Ferrous Sulfate 325 Mg Tab) 325 mg PO DAILY@1200 COUNTS INCLUDE 234 BEDS AT THE [facility] Stop: 05/28/21 11:59 Last Admin: 05/03/21 07:54 Dose: 325 mg Documented by: Heparin Sodium (Porcine) (Heparin Sod 5,000 Unit/0.5 Ml Vial) 5,000 units SQ Q8 COUNTS INCLUDE 234 BEDS AT THE [facility] Stop: 05/28/21 21:59 Last Admin: 04/29/21 05:33 Dose: 5,000 units Documented by: Hydromorphone HCl (Hydromorphone Inj 0.5 Mg/0.5 Ml Syr) 0.25 mg IV Q3H PRN PRN Reason: Pain Stop: 05/12/21 20:40 Last Admin: 04/29/21 08:12 Dose: 0.25 mg Documented by: Promethazine HCl 6.25 mg/ (Sodium Chloride) 50.25 mls @ 201 mls/hr IV Q6H PRN PRN Reason: Nausea And Vomiting Stop: 05/28/21 06:47 Sodium Chloride (Nss 1000ml) 1,000 mls @ 50 mls/hr IV .Q20H ILIANA Stop: 05/29/21 04:59 Last Admin: 05/03/21 06:30 Dose: 50 mls/hr Documented by: Sodium Phosphate 12 mmol/ (Sodium Chloride) 254 mls @ 88 mls/hr IV 1115 ONE Stop: 05/03/21 14:08 Latanoprost (Latanoprost 0.005% Op Soln 2.5 Ml Btl) 1 drops OP PM ILIANA Stop: 05/27/21 20:59 Last Admin: 05/02/21 21:41 Dose: 1 drops Documented by: Lorazepam (Lorazepam 0.5 Mg Tab) 0.5 mg PO DAILY PRN PRN Reason: Anxiety Stop: 05/27/21 19:37 Last Admin: 04/30/21 22:12 Dose: 0.5 mg Documented by: Menthol (Cough Drop (Sugar Free) Omega 24 Omega/1 Box) 1 omega BUCCAL Q2H PRN PRN Reason: Sore Throat Stop: 05/28/21 20:31 Metoprolol Succinate (Metoprolol Succ 50mg Ext Rel Tab) 200 mg PO BID COUNTS INCLUDE 234 BEDS AT THE [facility] Stop: 06/01/21 20:59 Last Admin: 05/03/21 07:53 Dose: 200 mg Documented by: Nystatin (Nystatin Susp 500,000 U/5 Ml Udc) 5 ml PO QID COUNTS INCLUDE 234 BEDS AT THE [facility] Stop: 06/01/21 12:59 Last Admin: 05/03/21 07:56 Dose: 5 ml Documented by: Oxycodone HCl (Oxycodone Hcl Ir 5 Mg Tab (Immediate Release)) 5 mg PO Q4H PRN PRN Reason: Pain Stop: 05/12/21 20:39 Last Admin: 05/03/21 08:04 Dose: 5 mg Documented by: Pantoprazole Sodium (Pantoprazole 40 Mg Tab) 40 mg PO BID COUNTS INCLUDE 234 BEDS AT THE [facility] Stop: 05/31/21 20:59 Last Admin: 05/03/21 07:55 Dose: 40 mg Documented by: Phenol (Chloraseptic 1.4% Soln 180 Ml Btl) 1 sprays MT Q2H PRN PRN Reason: throat discomfort Stop: 05/28/21 20:31 Last Admin: 05/03/21 06:33 Dose: 1 sprays Documented by: Senna/Docusate Sodium (Docusate Sodium/Senna 50/8.6mg Tab) 2 tab PO HS COUNTS INCLUDE 234 BEDS AT THE [facility] Stop: 05/30/21 20:59 Last Admin: 05/02/21 21:40 Dose: 2 tab Documented by: Sodium Chloride (Sodium Chloride 1 Gm Tablet) 1 gm PO BID ILIANA Stop: 06/02/21 08:59 Last Admin: 05/03/21 08:12 Dose: 1 gm Documented by: Sucralfate (Sucralfate 1 Gm/10 Ml Udc) 1 gm PO QID ILIANA Stop: 06/01/21 12:59 Last Admin: 05/03/21 07:56 Dose: 1 gm Documented by: Zinc Sulfate (Zinc Sulfate 220 Mg Capsule) 220 mg PO QAM COUNTS INCLUDE 234 BEDS AT THE [facility] Stop: 05/28/21 08:59 Last Admin: 05/03/21 07:55 Dose: 220 mg Documented by:
[2021-05-03] MEDS: ACETAMINOPHEN 325 MG TAB PO PRN (19:51)
[2021-05-03] MEDS: LATANOPROST 0.005% OP SOLN 2.5 ML BTL OP SCH (21:08)
[2021-05-03] MEDS: DOCUSATE SODIUM/SENNA 50/8.6MG TAB PO SCH (21:08)
[2021-05-03] MEDS: ATORVASTATIN 40 MG TAB PO SCH (21:08)
[2021-05-04] MEDS: oxyCODONE HCL IR 5 MG TAB (IMMEDIATE RELEASE) PO PRN ×2 (04:55→13:24)
[2021-05-04] MEDS: SODIUM CHLORIDE 0.9% 1000ML 1,000 ML IV SCH (05:51)
[2021-05-04] MEDS ORDERED: PIPERACILL/TAZOBAC CONSULT ACTIVE PRN (06:21)
[2021-05-04] MEDS ORDERED: PIPERACILLIN/TAZOBACTAM 3.375 GM in DEXTROSE 5% 100 ML IV ONE (06:45)
[2021-05-04 07:54] LABS: Basophils # (auto) 0.03 K/uL (0-0.2); Basophils % (auto) 0.2 %; Eosinophils # (auto) 0.34 K/uL (0-0.5); Eosinophils % (auto) 2.7 %; Immature Granulocytes # (auto) 0.09 K/uL (0.00-0.02); Immature Granulocytes % (auto) 0.7 %; Lymphocytes # (auto) 0.83 K/uL (1.2-3.4); Lymphocytes % (auto) 6.6 %; Mean Corpuscular Hemoglobin 28.7 pg (25-34); Mean Corpuscular Volume 92.4 fL (80-100); Mean Platelet Volume 8.9 fL (7.4-10.4); Monocytes # (auto) 1.87 K/uL (0.11-0.59); Monocytes % (auto) 14.9 %; Neutrophils # (auto) 9.36 K/uL (1.4-6.5); Neutrophils % (auto) 74.9 %; Platelet Count 234 K/uL (130-400); RDW Coefficient of Variation 19.2 % (11.5-14.5); RDW Standard Deviation 63.6 fL (36.4-46.3); Red Blood Count 3.14 M/uL (4.2-5.4); White Blood Count 12.52 K/uL (4.8-10.8)
[2021-05-04 08:12] LABS: BUN Creatinine Ratio 21.1 (10-20); Calcium 8.6 mg/dl (8.5-10.1); Creatinine Clr Calc Pharmacy 53.6 ml/min; Est GFR (African American) 64.2 ml/min; Est GFR (Non-African American) 55.4 ml/min; Potassium 4.6 mmol/L (3.5-5.1)
[2021-05-04] MEDS: METOPROLOL SUCC 50MG EXT REL TAB PO SCH ×2 (08:13→21:35)
[2021-05-04] MEDS: SODIUM CHLORIDE 1 GM TABLET PO SCH ×2 (08:14→20:48)
[2021-05-04] MEDS: PANTOprazole 40 MG TAB PO SCH ×2 (08:14→20:49)
[2021-05-04] MEDS: CALCITRIOL 0.25 MCG CAPSULE PO SCH (08:14)
[2021-05-04] MEDS: CYANOCOBALAMIN (B-12) 500 MCG TABLET PO SCH (08:15)
[2021-05-04] MEDS: ASPIRIN 81 MG ECTAB PO SCH (08:16)
[2021-05-04] MEDS: ASCORBIC ACID 500 MG TAB PO SCH ×2 (08:16→12:00)
[2021-05-04] MEDS: NYSTATIN SUSP 500,000 U/5 ML UDC PO SCH ×4 (08:17→20:48)
[2021-05-04] MEDS: SUCRALFATE 1 GM/10 ML UDC PO SCH ×4 (08:17→21:34)
[2021-05-04] MEDS: ZINC SULFATE 220 MG CAPSULE PO SCH (08:18)
--- NOTE | 2021-05-04 08:42 | CT Scan Report ---
ABDOMEN AND PELVIS CT WITHOUT CONTRAST CT DOSE: 773.51 mGy.cm HISTORY: fever, abd pain, recent hemicolectomy TECHNIQUE: Multiaxial CT images of the abdomen and pelvis were performed without contrast. A dose lo wering technique was utilized adhering to the principles of ALARA. COMPARISON STUDY: Abdomen and pelvis CT 01/21/2021. FINDINGS: The heart remains enlarged. Pacemaker wires are noted. Patchy right basilar densities favor subsegmental atelectasis given the trace right pleural effusion. No pneumoperitoneum. No pneumatosis . No fractures within the visualized osseous structures. Moderate body wall edema most pronounced on the right. Evidence for recent midline incision with a small amount of fluid and gas at the incision. This favors the recent postoperative change. Postoperative changes consistent with a recent right he micolectomy. No extraluminal gas near the suture material to suggest a leak at this time. There is tr yanet hyperdense fluid along the right paracolic gutter and adjacent to the bowel anastomosis suggestin g a small amount of hemorrhage. This may be secondary to the recent postoperative change. The unenhan abbie liver, gallbladder, pancreas, spleen, and adrenal glands are unremarkable. Bilateral renal hypode nse lesions remain stable and favor cysts. No hydronephrosis. Renal vascular calcifications are again noted. Moderate calcified plaque within the normal caliber abdominal aorta. Small amount of gas with in the bladder lumen likely related to recent catheterization. Prior hysterectomy. Mild pelvic floor collapse. Colonic diverticulosis. No evidence for acute diverticulitis. Fluid-filled colon. This coul d be due to the postoperative change or a mild gastroenteritis. Suboptimal evaluation for bowel patho logy due to the lack of intravenous and oral contrast. However, there is no definite bowel wall thick ening or obstruction. There are few prominent loops of small bowel within the pelvis. However, no tra nsition point to suggest a bowel obstruction. Therefore, this favors a mild ileus at this time. IMPRESSION: 1. 1. Status post recent right hemicolectomy. There is trace hyperdense fluid along the right paracolic gutter and adjacent to the bowel anastomosis suggesting a small amount of hemorrhage. This may be sec ondary to the recent postoperative change. 2. Evidence for recent midline incision with a small collection of fluid and gas at the abdominal wal l incision. This favors the recent postoperative change. 3. Trace right pleural effusion. 4. Moderate body wall edema most pronounced on the right. 5. Suspect a mild ileus versus gastroenteritis as described above. 6. Additional findings as described above. ACT 112: Negative or not required by law. Electronically signed by: Enrique Bennett M.D. 05/04/2021 8:41 AM
[2021-05-04] MEDS: ACETAMINOPHEN 325 MG TAB PO PRN (10:04)
--- NOTE | 2021-05-04 10:53 | Surgery Progress Note ---
Date of Service May 04, 2021 Assessment & Plan (1) H/O colectomy: Plan: Eating a small amount Does not have much energy, unable to walk yesterday secondary to availability of help Passing a small amount of flatus but no bowel movement Some right-sided abdominal pain Her abdomen is relatively soft and she does have some bowel sounds I think she would really benefit from rehab - she is amenable to exploring this option - will discuss with case management Continue current diet Admission and Anticipated Discharge Date Admission Date: April 29, [address] scan last night with no acute findings. wants to eat. passing flatus; no bm yet Physical Exam Constitutional: WD/WN, vitals as above Neck: normal visual inspection and trachea midline Gastrointestinal (Abdomen): Inspection/Auscultation: + abdominal wall ecchymosis (RLQ) and + abdominal surgical incision (dry); abdomen not distended Skin: no rashes, warm and dry no jaundice Psychiatric: A+Ox3, euthymic affect Orientation: alert and oriented x 3 Results & Data ([facility]) Vital Signs (Past 12 Hours) Vital Signs Temp Pulse Pulse Resp BP Pulse Ox 05/04/21 07:47 81 05/04/21 07:45 104 H 05/04/21 07:16 37.2 C 102 H 20 139/81 97 05/04/21 03:28 36.7 C 102 H 18 130/80 97 05/03/21 23:20 36.9 C 104 H 20 127/88 94
[2021-05-04] MEDS: FERROUS SULFATE 325 MG TAB PO SCH (12:00)
[2021-05-04] MEDS: PIPERACILLIN/TAZOBACTAM 3.375 GM in DEXTROSE 5% 100 ML IV SCH ×2 (12:01→20:43)
--- NOTE | 2021-05-04 13:40 | Hospitalist Progress Note ---
Date of Service May 04, 2021 Assessment & Plan (1) Colon adenocarcinoma: Plan: Management as below (2) S/P right hemicolectomy: Plan: This is an 85yo F with a PMH of colon adenocarcinoma, paroxysmal atrial fibrillation not on anticoagulation due to fall risk, chronic diastolic heart failure, s/p pacemaker, CKD III, MARTI on 2L NC O2 HS, s/p R Laparoscopic Hemicolectomy by Surgery Dr. Salamanca performed on 04/27/21 Day #5 status post laparoscopic right hemicolectomy for adenocarcinoma of the cecum. No postop complications Incentive spirometry Continue PPI Clear liquid diet as tolerated -tolerating clears Pain seems to be reasonably controlled Has been passing gas and clears has been started by the surgery Diet advanced and is tolerating Likely discharge on Tuesday Has significant anorexia and also dyspepsia CT scan of the abdomen pelvis showed normal findings due to recent colon surgery but it also showed acute gastroenteritis We will continue with the full liquid diet and PPI plus sucralfate for gastritis Continue with PT and OT evaluation Acute blood loss anemia Hemoglobin dropped to 7.4 and she is getting 1 unit of blood transfusion as of 04/29/2021 Hemoglobin remains stable following blood transfusion at 8.8 Hemoglobin remains stable Gastroenteritis Irritation in the throat and esophagus Likely secondary reflux disease Will increase PPI to twice daily Has been getting antacid as needed Still complains to have burning in the esophagus-we will add sucralfate and nystatin orally Has been getting PPI twice daily, sucralfate and also Maalox If remains symptomatic we will get GI involved on Tuesday (3) Chronic diastolic heart failure: Plan: Continue to hold home lasix dose Monitor closely while off lasix and on gentle IV fluid No signs and/or symptoms of fluid overload (4) Paroxysmal atrial fibrillation: Plan: Continue Toprol 200mg BID. Not on anticoagulation due to h/o bleeding and frequent falls Heart rate is reasonably controlled Beta-baron doses have been increased to 200 mg twice daily Heart rate remains little elevated (5) Chronic kidney disease (CKD), stage III (moderate): Plan: Acute kidney injury on chronic kidney disease Creatinine increased to 1.7 today, baseline creatinine 1-1.2 Continue to hold home lasix dose Continue gentle IVF at 50 mL/h Appreciate nephrology input and recommendation We will monitor PRP-BUN and creatinine is 32/1.57, slightly better Her creatinine has been normalized as of 04/30/2021 Hyponatremia Electrolyte imbalance Hyponatremia with sodium of 127 as of 04/29/2021 Sodium level remains low at 129-improved at 133 Sodium level has been to 128 Will start sodium tablet twice daily and monitor BMP Sodium level remains low normal at 133 (6) Pacemaker: Plan: H/o sinus bradycardia s/p PM placement (7) Depression: (8) Anxiety: Plan: Continue duloxetine, home PRN Ativan (9) Sleep apnea: Plan: 2L NC O2 HS DVT Ppx: Per surgical service Code status: FULL Disposition as per ortho Admission and Anticipated Discharge Date Admission Date: April 29, 2021 Subjective 04/29/2021 The patient was seen and examined in medical telemetry unit She complains to have generalized weakness and some abdominal discomfort Her bowel has not moved yet Denies any nausea or vomiting and no fever and chills 04/30/2021 The patient was seen and examined in medical telemetry unit She has been feeling much better with minimal discomfort in the abdomen No nausea and or vomiting She has been passing gases but no bowel movement 05/01/2021 The patient was seen and examined in medical telemetry unit She complains to have burning in the throat Denies any abdominal distention but has little discomfort Has not moved her bowels yet She likes to go home with her sister 05/02/2021 The patient was seen and examined in medical telemetry unit She still complains to have burning in the esophagus and also epigastrium He has had nausea but no vomiting Complains to have abdominal discomfort and bowel has not moved yet 05/03/2021 The patient was seen and examined in medical telemetry unit She continues to have esophageal burning and cannot eat or drink that much Has nausea without vomiting Denies any significant abdominal pain 05/04/2021 The patient was seen and examined in medical telemetry unit She has noted to have more abdominal pain and distention last night and underwent a CT scan of the abdomen and pelvis Showed gastritis but otherwise fairly unremarkable given recent surgery Has been feeling reasonably better this morning Review of Systems Review of Systems: All systems reviewed and are unremarkable except as noted below Gastrointestinal: Minimal abdominal discomfort without nausea and or vomiting Physical Exam Physical Exam: Lying in bed comfortably Constitutional: well developed, well nourished, + ill appearing and + obese Eyes: PERRL, conjunctivae normal, anicteric sclerae ENMT: external ear and nose normal, oropharynx normal Neck: trachea midline, no thyromegaly Respiratory: no respiratory distress Auscultation: lungs clear to auscultation bilaterally Cardiovascular: Rate/Rhythm: + irregularly irregular; not tachycardic Heart Sounds: normal S1 and normal S2; no murmur Extremities: + edema (Trace edema bilaterally) Gastrointestinal (Abdomen): Inspection/Auscultation: normal bowel sounds (Diminished); abdomen not distended Percussion/Palpation: + abdomen tender and abdomen soft Musculoskeletal: Head/Neck/Chest: normocephalic and neck supple Neurologic: normal touch/pain/proprioception; no focal motor deficits Psychiatric: A+Ox3, euthymic affect Lymphatic: no cervical or axillary lymphadenopathy Results & Data Results & Data ([facility]) Vital Signs (Past 12 Hours) Vital Signs Temp Pulse Pulse Resp BP BP Pulse Ox 05/04/21 11:02 37.2 C 101 H 20 131/84 94 05/04/21 07:47 81 05/04/21 07:45 104 H 05/04/21 07:16 37.2 C 102 H 20 139/81 97 05/04/21 03:28 36.7 C 102 H 18 130/80 97 Laboratory Results Short CBC 05/04/21 Range/Units 07:27 WBC 12.52 H (4.8-10.8) K/uL Hgb 9.0 L (12.0-16.0) g/dL Hct 29.0 L (37-47) % Plt Count 234 (130-400) K/uL BMP 05/04/21 07:27 Sodium 133 L Potassium 4.6 Chloride 105 Carbon Dioxide 23 BUN 20 Creatinine 0.95 Glucose 109 H Calcium 8.6 Medications Administered Current Inpatient Medications Acetaminophen (Acetaminophen 325 Mg Tab) 650 mg PO Q6H PRN PRN Reason: Pain Stop: 05/31/21 12:01 Last Admin: 05/04/21 10:04 Dose: 650 mg Documented by: Al Hydrox/Mg Hydrox/Simethicone (Aluminum/Magnesium/Simeth (Maalox Max) 30 Ml Udc) 15 ml PO Q6H PRN PRN Reason: Heartburn Stop: 05/29/21 11:02 Last Admin: 05/02/21 09:15 Dose: 15 ml Documented by: Al Hydrox/Mg Hydrox/Simethicone (Aluminum/Magnesium Susp 30 Ml Udc) 15 ml PO Q6H PRN PRN Reason: Dyspepsia Stop: 06/02/21 11:42 Ascorbic Acid (Ascorbic Acid 500 Mg Tab) [facility] [place] Stop: 05/28/21 08:59 Last Admin: 05/04/21 08:16 Dose: 1,000 mg Documented by: Ascorbic Acid (Ascorbic Acid 500 Mg Tab) 125 mg PO DAILY@1200 [facility] Stop: 05/28/21 11:59 Last Admin: 05/04/21 12:00 Dose: 125 mg Documented by: Aspirin (Aspirin 81 Mg Ectab) [facility] [place] Stop: 05/28/21 08:59 Last Admin: 05/04/21 08:16 Dose: 81 mg Documented by: Atorvastatin Calcium (Atorvastatin 40 Mg Tab) 40 mg PO [facility] Stop: 05/27/21 20:59 Last Admin: 05/03/21 21:08 Dose: 40 mg Documented by: Calcitriol (Calcitriol 0.25 Mcg Capsule) 1 mcg PO DAILY [facility] Stop: 05/28/21 08:59 Last Admin: 05/04/21 08:14 Dose: 1 mcg Documented by: Cyanocobalamin (Cyanocobalamin (B-12) 500 Mcg Tablet) 1,000 mcg PO MoWeFr@0900 [facility] Stop: 05/27/21 19:49 Last Admin: 05/04/21 08:15 Dose: 1,000 mcg Documented by: Duloxetine HCl (Duloxetine Hcl 20 Mg Cap) [facility] [place] Stop: 05/28/21 08:59 Last Admin: 04/28/21 08:30 Dose: 20 mg Documented by: Ferrous Sulfate (Ferrous Sulfate 325 Mg Tab) 325 mg PO DAILY@1200 [facility] Stop: 05/28/21 11:59 Last Admin: 05/04/21 12:00 Dose: 325 mg Documented by: Heparin Sodium (Porcine) (Heparin Sod 5,000 Unit/0.5 Ml Vial) 5,000 units SQ Q8 [facility] Stop: 05/28/21 21:59 Last Admin: 04/29/21 05:33 Dose: 5,000 units Documented by: Hydromorphone HCl (Hydromorphone Inj 0.5 Mg/0.5 Ml Syr) 0.25 mg IV Q3H PRN PRN Reason: Pain Stop: 05/12/21 20:40 Last Admin: 04/29/21 08:12 Dose: 0.25 mg Documented by: Promethazine HCl 6.25 mg/ (Sodium Chloride) 50.25 mls @ 201 mls/hr IV Q6H PRN PRN Reason: Nausea And Vomiting Stop: 05/28/21 06:47 Sodium Chloride (Nss 1000ml) 1,000 mls @ 50 mls/hr IV .Q20H [facility] Stop: 05/29/21 04:59 Last Admin: 05/04/21 05:51 Dose: 50 mls/hr Documented by: Piperacillin Sod/Tazobactam (Sod 3.375 gm/ Dextrose) 115 mls @ 28.75 mls/hr IV Q8H [facility]; Protocol Stop: 05/14/21 11:59 Last Admin: 05/04/21 12:01 Dose: 28.8 mls/hr Documented by: Latanoprost (Latanoprost 0.005% Op Soln 2.5 Ml Btl) 1 drops OP PM [facility] Stop: 05/27/21 20:59 Last Admin: 05/03/21 21:08 Dose: 1 drops Documented by: Levalbuterol HCl (Levalbuterol Hcl 1.25 Mg/3 Ml Neb) 1.25 mg NEB Q4H PRN; Protocol PRN Reason: Shortness Of Breath Or Wheezing Stop: 06/03/21 06:14 Lorazepam (Lorazepam 0.5 Mg Tab) 0.5 mg PO DAILY PRN PRN Reason: Anxiety Stop: 05/27/21 19:37 Last Admin: 04/30/21 22:12 Dose: 0.5 mg Documented by: Menthol (Cough Drop (Sugar Free) Omega 24 Omega/1 Box) 1 omega BUCCAL Q2H PRN PRN Reason: Sore Throat Stop: 05/28/21 20:31 Metoprolol Succinate (Metoprolol Succ 50mg Ext Rel Tab) 200 mg PO BID [facility] Stop: 06/01/21 20:59 Last Admin: 05/04/21 08:13 Dose: 200 mg Documented by: Miscellaneous Information (Piperacill/Tazobac Consult Active) 1 ea N/A UD PRN PRN Reason: Consult Stop: 06/03/21 06:20 Nystatin (Nystatin Susp 500,000 U/5 Ml Udc) 5 ml PO QID [facility] Stop: 06/01/21 12:59 Last Admin: 05/04/21 12:01 Dose: 5 ml Documented by: Oxycodone HCl (Oxycodone Hcl Ir 5 Mg Tab (Immediate Release)) 5 mg PO Q4H PRN PRN Reason: Pain Stop: 05/12/21 20:39 Last Admin: 05/04/21 13:24 Dose: 5 mg Documented by: Pantoprazole Sodium (Pantoprazole 40 Mg Tab) 40 mg PO BID [facility] Stop: 05/31/21 20:59 Last Admin: 05/04/21 08:14 Dose: 40 mg Documented by: Phenol (Chloraseptic 1.4% Soln 180 Ml Btl) 1 sprays MT Q2H PRN PRN Reason: throat discomfort Stop: 05/28/21 20:31 Last Admin: 05/03/21 19:35 Dose: 1 sprays Documented by: Senna/Docusate Sodium (Docusate Sodium/Senna 50/8.6mg Tab) 2 tab PO HS [facility] Stop: 05/30/21 20:59 Last Admin: 05/03/21 21:08 Dose: 2 tab Documented by: Sodium Chloride (Sodium Chloride 1 Gm Tablet) 1 gm PO BID [facility] Stop: 06/02/21 08:59 Last Admin: 05/04/21 08:14 Dose: 1 gm Documented by: Sucralfate (Sucralfate 1 Gm/10 Ml Udc) 1 gm PO QID [facility] Stop: 06/01/21 12:59 Last Admin: 05/04/21 12:01 Dose: 1 gm Documented by: Zinc Sulfate (Zinc Sulfate 220 Mg Capsule) 220 mg PO QAM [facility] Stop: 05/28/21 08:59 Last Admin: 05/04/21 08:18 Dose: 220 mg Documented by:
[2021-05-04] MEDS: PROMETHAZINE HCL 6.25 MG in SODIUM CHLORIDE 0.9% 50 ML IV PRN (20:36)
[2021-05-04] MEDS: LATANOPROST 0.005% OP SOLN 2.5 ML BTL OP SCH (20:44)
[2021-05-04] MEDS: ATORVASTATIN 40 MG TAB PO SCH (20:45)
[2021-05-04] MEDS: DOCUSATE SODIUM/SENNA 50/8.6MG TAB PO SCH (20:46)
[2021-05-05] MEDS ORDERED: POLYETHYLENE (MIRALAX) 17 GM PACK PO STA (00:19)
[2021-05-05] MEDS: oxyCODONE HCL IR 5 MG TAB (IMMEDIATE RELEASE) PO PRN ×2 (00:27→22:15)
[2021-05-05 00:35] LABS: Hematocrit (blood only) 30.8 % (37-47); Hemoglobin 9.6 g/dL (12.0-16.0)
[2021-05-05] MEDS: SODIUM CHLORIDE 0.9% 1000ML 1,000 ML IV SCH ×2 (02:52→21:48)
[2021-05-05] MEDS: PIPERACILLIN/TAZOBACTAM 3.375 GM in DEXTROSE 5% 100 ML IV SCH ×3 (04:38→21:33)
--- NOTE | 2021-05-05 06:41 | Surgery Progress Note ---
Date of Service May 05, 2021 Assessment & Plan (1) H/O colectomy: Plan: Eating a small amount Does not have much energy, unable to walk yesterday secondary to availability of help Passing a small amount of flatus but no bowel movement Some right-sided abdominal pain Probable D/C to rehab on Tuesday? Continue current diet start bowel regimen Admission and Anticipated Discharge Date Admission Date: April 29, 2021 Subjective doing ok; still feeling quite weak; oob to chair yesterday; passing flatus but no BM Physical Exam Constitutional: WD/WN, vitals as above Neck: trachea midline, no thyromegaly normal visual inspection and trachea midline Respiratory: normal respiratory effort; no respiratory distress and no labored breathing Cardiovascular: Rate/Rhythm: regular rate and regular rhythm Gastrointestinal (Abdomen): normal bowel sounds, soft, nontender, no hepatosplenomegaly Inspection/Auscultation: abdomen normal to inspection, + abdominal wall ecchymosis (RLQ) and + abdominal surgical incision (dry); abdomen not distended Percussion/Palpation: + abdomen tender (Mild diffuse) and abdomen soft; no guarding and abdomen not rigid Musculoskeletal: Extremities: no cyanosis and no clubbing Skin: no rashes, warm and dry no jaundice Psychiatric: A+Ox3, euthymic affect Orientation: alert and oriented x 3 Results & Data ([facility]) Vital Signs (Past 12 Hours) Vital Signs Temp Pulse Pulse Resp BP BP Pulse Ox 05/05/21 04:37 37.5 C 114 H 18 137/86 97 05/04/21 22:35 37.3 C 116 H 18 146/99 H 96 05/04/21 22:16 110 H 05/04/21 21:32 114 H 143/74 H 05/04/21 19:49 37.1 C 94 H 18 141/89 H 95
[2021-05-05] MEDS ORDERED: POLYETHYLENE (MIRALAX) 17 GM PACK PO PRN (06:45)
[2021-05-05] MEDS: ASCORBIC ACID 500 MG TAB PO SCH ×2 (08:17→12:52)
[2021-05-05] MEDS: ASPIRIN 81 MG ECTAB PO SCH (08:18)
[2021-05-05] MEDS: CALCITRIOL 0.25 MCG CAPSULE PO SCH (08:18)
[2021-05-05] MEDS: METOPROLOL SUCC 50MG EXT REL TAB PO SCH ×2 (08:18→21:38)
[2021-05-05] MEDS: SENNA 8.6 MG TAB PO SCH (08:19)
[2021-05-05] MEDS: PANTOprazole 40 MG TAB PO SCH ×2 (08:19→21:39)
[2021-05-05] MEDS: NYSTATIN SUSP 500,000 U/5 ML UDC PO SCH ×4 (08:19→21:38)
[2021-05-05] MEDS: SODIUM CHLORIDE 1 GM TABLET PO SCH ×2 (08:20→21:39)
[2021-05-05] MEDS: SUCRALFATE 1 GM/10 ML UDC PO SCH ×4 (08:20→21:40)
[2021-05-05] MEDS: ZINC SULFATE 220 MG CAPSULE PO SCH (08:21)
[2021-05-05] MEDS: ONDANSETRON 4 MG OD TAB PO PRN ×2 (10:18→17:05)
--- NOTE | 2021-05-05 12:32 | Hospitalist Progress Note ---
Date of Service May 05, 2021 Assessment & Plan (1) Colon adenocarcinoma: Plan: Management as below (2) S/P right hemicolectomy: Plan: This is an 85yo F with a PMH of colon adenocarcinoma, paroxysmal atrial fibrillation not on anticoagulation due to fall risk, chronic diastolic heart failure, s/p pacemaker, CKD III, MARTI on 2L NC O2 HS, s/p R Laparoscopic Hemicolectomy by Surgery Dr. Salamanca performed on 04/27/21 Day #5 status post laparoscopic right hemicolectomy for adenocarcinoma of the cecum. No postop complications Incentive spirometry Continue PPI Clear liquid diet as tolerated -tolerating clears Pain seems to be reasonably controlled Has been passing gas and clears has been started by the surgery Diet advanced and is tolerating Likely discharge on Tuesday Has significant anorexia and also dyspepsia CT scan of the abdomen pelvis showed normal findings due to recent colon surgery but it also showed acute gastroenteritis We will continue with the full liquid diet and PPI plus sucralfate for gastritis Clinically a little better and is out of bed on a chair We will continue current management Acute blood loss anemia Hemoglobin dropped to 7.4 and she is getting 1 unit of blood transfusion as of 04/29/2021 Hemoglobin remains stable following blood transfusion at 8.8 Hemoglobin remains stable at 9.6 as of 05/05/2021 We will restart subcu heparin for DVT prophylaxis Gastroenteritis Irritation in the throat and esophagus Likely secondary reflux disease Will increase PPI to twice daily Has been getting antacid as needed Still complains to have burning in the esophagus-we will add sucralfate and nystatin orally Has been getting PPI twice daily, sucralfate and also Maalox Getting better and will continue current management (3) Chronic diastolic heart failure: Plan: Continue to hold home lasix dose Monitor closely while off lasix and on gentle IV fluid No signs and/or symptoms of fluid overload (4) Paroxysmal atrial fibrillation: Plan: Continue Toprol 200mg BID. Not on anticoagulation due to h/o bleeding and frequent falls Heart rate is reasonably controlled Beta-baron doses have been increased to 200 mg twice daily Heart rate remains little elevated (5) Chronic kidney disease (CKD), stage III (moderate): Plan: Acute kidney injury on chronic kidney disease Creatinine increased to 1.7 today, baseline creatinine 1-1.2 Continue to hold home lasix dose Continue gentle IVF at 50 mL/h Appreciate nephrology input and recommendation We will monitor PRP-BUN and creatinine is 32/1.57, slightly better Her creatinine has been normalized as of 04/30/2021 Hyponatremia Electrolyte imbalance Hyponatremia with sodium of 127 as of 04/29/2021 Sodium level remains low at 129-improved at 133 Sodium level has been to 128 Will start sodium tablet twice daily and monitor BMP Sodium level remains low normal at 133 (6) Pacemaker: Plan: H/o sinus bradycardia s/p PM placement (7) Depression: (8) Anxiety: Plan: Continue duloxetine, home PRN Ativan (9) Sleep apnea: Plan: 2L NC O2 HS DVT Ppx: Per surgical service Heparin was on hold due to acute blood loss anemia We will restart heparin Code status: FULL Disposition as per ortho Admission and Anticipated Discharge Date Admission Date: April 29, 2021 Subjective 04/29/2021 The patient was seen and examined in medical telemetry unit She complains to have generalized weakness and some abdominal discomfort Her bowel has not moved yet Denies any nausea or vomiting and no fever and chills 04/30/2021 The patient was seen and examined in medical telemetry unit She has been feeling much better with minimal discomfort in the abdomen No nausea and or vomiting She has been passing gases but no bowel movement 05/01/2021 The patient was seen and examined in medical telemetry unit She complains to have burning in the throat Denies any abdominal distention but has little discomfort Has not moved her bowels yet She likes to go home with her sister 05/02/2021 The patient was seen and examined in medical telemetry unit She still complains to have burning in the esophagus and also epigastrium He has had nausea but no vomiting Complains to have abdominal discomfort and bowel has not moved yet 05/03/2021 The patient was seen and examined in medical telemetry unit She continues to have esophageal burning and cannot eat or drink that much Has nausea without vomiting Denies any significant abdominal pain 05/04/2021 The patient was seen and examined in medical telemetry unit She has noted to have more abdominal pain and distention last night and underwent a CT scan of the abdomen and pelvis Showed gastritis but otherwise fairly unremarkable given recent surgery Has been feeling reasonably better this morning 05/05/2021 The patient was seen and examined in medical telemetry unit She is out of bed on a chair Still complains to have epigastric burning and nauseous but no vomiting She still has discomfort in the abdomen and no bowel movement yet Review of Systems Review of Systems: All systems reviewed and are unremarkable except as noted below Gastrointestinal: Minimal abdominal discomfort without nausea and or vomiting Physical Exam Physical Exam: Sitting on a chair comfortably Constitutional: well developed, well nourished, + ill appearing and + obese Eyes: PERRL, conjunctivae normal, anicteric sclerae ENMT: external ear and nose normal, oropharynx normal Neck: trachea midline, no thyromegaly Respiratory: no respiratory distress Auscultation: lungs clear to auscultation bilaterally Cardiovascular: Rate/Rhythm: + irregularly irregular; not tachycardic Heart Sounds: normal S1 and normal S2; no murmur Extremities: + edema (Trace edema bilaterally) Gastrointestinal (Abdomen): Inspection/Auscultation: normal bowel sounds (Diminished); abdomen not distended Percussion/Palpation: + abdomen tender and abdomen soft Musculoskeletal: Head/Neck/Chest: normocephalic and neck supple Neurologic: normal touch/pain/proprioception; no focal motor deficits Psychiatric: A+Ox3, euthymic affect Lymphatic: no cervical or axillary lymphadenopathy Results & Data Results & Data ([facility]) Vital Signs (Past 12 Hours) Vital Signs Temp Pulse Pulse Resp BP Pulse Ox 05/05/21 11:13 36.7 C 103 H 19 128/85 93 05/05/21 08:00 36.9 C 123 H 20 123/78 95 05/05/21 06:19 113 H 05/05/21 04:37 37.5 C 114 H 18 137/86 97 Laboratory Results Short CBC 05/05/21 Range/Units 00:26 Hgb 9.6 L (12.0-16.0) g/dL Hct 30.8 L (37-47) % Medications Administered Current Inpatient Medications Acetaminophen (Acetaminophen 325 Mg Tab) 650 mg PO Q6H PRN PRN Reason: Pain Stop: 05/31/21 12:01 Last Admin: 05/04/21 10:04 Dose: 650 mg Documented by: Al Hydrox/Mg Hydrox/Simethicone (Aluminum/Magnesium/Simeth (Maalox Max) 30 Ml Udc) 15 ml PO Q6H PRN PRN Reason: Heartburn Stop: 05/29/21 11:02 Last Admin: 05/02/21 09:15 Dose: 15 ml Documented by: Al Hydrox/Mg Hydrox/Simethicone (Aluminum/Magnesium Susp 30 Ml Udc) 15 ml PO Q6H PRN PRN Reason: Dyspepsia Stop: 06/02/21 11:42 Last Admin: 05/04/21 21:32 Dose: 15 ml Documented by: Ascorbic Acid (Ascorbic Acid 500 Mg Tab) [facility] [place] Stop: 05/28/21 08:59 Last Admin: 05/05/21 08:17 Dose: 1,000 mg Documented by: Ascorbic Acid (Ascorbic Acid 500 Mg Tab) 125 mg PO DAILY@1200 [facility] Stop: 05/28/21 11:59 Last Admin: 05/04/21 12:00 Dose: 125 mg Documented by: Aspirin (Aspirin 81 Mg Ectab) 81 [facility] [place] Stop: 05/28/21 08:59 Last Admin: 05/05/21 08:18 Dose: 81 mg Documented by: Atorvastatin Calcium (Atorvastatin 40 Mg Tab) 40 mg PO HS [facility] Stop: 05/27/21 20:59 Last Admin: 05/04/21 20:45 Dose: 40 mg Documented by: Calcitriol (Calcitriol 0.25 Mcg Capsule) 1 mcg PO DAILY [facility] Stop: 05/28/21 08:59 Last Admin: 05/05/21 08:18 Dose: 1 mcg Documented by: Cyanocobalamin (Cyanocobalamin (B-12) 500 Mcg Tablet) 1,000 mcg PO MoWeFr@0900 [facility] Stop: 05/27/21 19:49 Last Admin: 05/04/21 08:15 Dose: 1,000 mcg Documented by: Duloxetine HCl (Duloxetine Hcl 20 Mg Cap) 20 [facility] [place] Stop: 05/28/21 08:59 Last Admin: 04/28/21 08:30 Dose: 20 mg Documented by: Ferrous Sulfate (Ferrous Sulfate 325 Mg Tab) 325 mg PO DAILY@1200 [facility] Stop: 05/28/21 11:59 Last Admin: 05/04/21 12:00 Dose: 325 mg Documented by: Heparin Sodium (Porcine) (Heparin Sod 5,000 Unit/0.5 Ml Vial) 5,000 units SQ Q8 [facility] Stop: 05/28/21 21:59 Last Admin: 04/29/21 05:33 Dose: 5,000 units Documented by: Hydromorphone HCl (Hydromorphone Inj 0.5 Mg/0.5 Ml Syr) 0.25 mg IV Q3H PRN PRN Reason: Pain Stop: 05/12/21 20:40 Last Admin: 04/29/21 08:12 Dose: 0.25 mg Documented by: Promethazine HCl 6.25 mg/ (Sodium Chloride) 50.25 mls @ 201 mls/hr IV Q6H PRN PRN Reason: Nausea And Vomiting Stop: 05/28/21 06:47 Last Infusion: 05/04/21 20:59 Dose: Infused Documented by: Sodium Chloride (Nss 1000ml) 1,000 mls @ 50 mls/hr IV .Q20H ILIANA Stop: 05/29/21 04:59 Last Admin: 05/05/21 02:52 Dose: 50 mls/hr Documented by: Piperacillin Sod/Tazobactam (Sod 3.375 gm/ Dextrose) 115 mls @ 28.75 mls/hr IV Q8H ILIANA; Protocol Stop: 05/14/21 11:59 Last Admin: 05/05/21 11:59 Dose: 28.8 mls/hr Documented by: Latanoprost (Latanoprost 0.005% Op Soln 2.5 Ml Btl) 1 drops OP PM ILIANA Stop: 05/27/21 20:59 Last Admin: 05/04/21 20:44 Dose: 1 drops Documented by: Levalbuterol HCl (Levalbuterol Hcl 1.25 Mg/3 Ml Neb) 1.25 mg NEB Q4H PRN; Protocol PRN Reason: Shortness Of Breath Or Wheezing Stop: 06/03/21 06:14 Lorazepam (Lorazepam 0.5 Mg Tab) 0.5 mg PO DAILY PRN PRN Reason: Anxiety Stop: 05/27/21 19:37 Last Admin: 04/30/21 22:12 Dose: 0.5 mg Documented by: Menthol (Cough Drop (Sugar Free) Omega 24 Omega/1 Box) 1 omega BUCCAL Q2H PRN PRN Reason: Sore Throat Stop: 05/28/21 20:31 Metoprolol Succinate (Metoprolol Succ 50mg Ext Rel Tab) 200 mg PO BID ILIANA Stop: 06/01/21 20:59 Last Admin: 05/05/21 08:18 Dose: 200 mg Documented by: Miscellaneous Information (Piperacill/Tazobac Consult Active) 1 ea N/A UD PRN PRN Reason: Consult Stop: 06/03/21 06:20 Nystatin (Nystatin Susp 500,000 U/5 Ml Udc) 5 ml PO QID [facility] Stop: 06/01/21 12:59 Last Admin: 05/05/21 08:19 Dose: 5 ml Documented by: Ondansetron HCl (Ondansetron 4 Mg Od Tab) 4 mg PO Q6H PRN PRN Reason: Nausea Stop: 06/04/21 09:46 Last Admin: 05/05/21 10:18 Dose: 4 mg Documented by: Oxycodone HCl (Oxycodone Hcl Ir 5 Mg Tab (Immediate Release)) 5 mg PO Q4H PRN PRN Reason: Pain Stop: 05/12/21 20:39 Last Admin: 05/05/21 00:27 Dose: 5 mg Documented by: Pantoprazole Sodium (Pantoprazole 40 Mg Tab) 40 mg PO BID [facility] Stop: 05/31/21 20:59 Last Admin: 05/05/21 08:19 Dose: 40 mg Documented by: Phenol (Chloraseptic 1.4% Soln 180 Ml Btl) 1 sprays MT Q2H PRN PRN Reason: throat discomfort Stop: 05/28/21 20:31 Last Admin: 05/03/21 19:35 Dose: 1 sprays Documented by: Polyethylene Glycol (Polyethylene (Miralax) 17 Gm Pack) 17 gm PO DAILY PRN PRN Reason: Constipation Stop: 06/04/21 06:44 Senna/Docusate Sodium (Docusate Sodium/Senna 50/8.6mg Tab) 2 tab PO HS [facility] Stop: 05/30/21 20:59 Last Admin: 05/04/21 20:46 Dose: 2 tab Documented by: Sennosides (Senna 8.6 Mg Tab) 17.2 mg PO QAM [facility] Stop: 06/04/21 08:59 Last Admin: 05/05/21 08:19 Dose: 17.2 mg Documented by: Sodium Chloride (Sodium Chloride 1 Gm Tablet) 1 gm PO BID [facility] Stop: 06/02/21 08:59 Last Admin: 05/05/21 08:20 Dose: 1 gm Documented by: Sucralfate (Sucralfate 1 Gm/10 Ml Udc) 1 gm PO QID [facility] Stop: 06/01/21 12:59 Last Admin: 05/05/21 08:20 Dose: 1 gm Documented by: Zinc Sulfate (Zinc Sulfate 220 Mg Capsule) 220 mg PO QAM [facility] Stop: 05/28/21 08:59 Last Admin: 05/05/21 08:21 Dose: 220 mg Documented by:
[2021-05-05] MEDS: FERROUS SULFATE 325 MG TAB PO SCH (12:52)
[2021-05-05] MEDS: ACETAMINOPHEN 325 MG TAB PO PRN (15:18)
[2021-05-05] MEDS: LATANOPROST 0.005% OP SOLN 2.5 ML BTL OP SCH (21:37)
[2021-05-05] MEDS: ATORVASTATIN 40 MG TAB PO SCH (21:37)
[2021-05-05] MEDS: DOCUSATE SODIUM/SENNA 50/8.6MG TAB PO SCH (21:37)
[2021-05-06] MEDS: PIPERACILLIN/TAZOBACTAM 3.375 GM in DEXTROSE 5% 100 ML IV SCH ×2 (03:17→11:50)
--- NOTE | 2021-05-06 08:57 | Surgery Progress Note ---
Date of Service May 06, 2021 Assessment & Plan (1) H/O colectomy: Plan: Eating a small amount Does not have much energy, unable to walk yesterday secondary to availability of help Passing a small amount of flatus but no bowel movement Some right-sided abdominal pain Probable D/C to rehab? Continue current diet; encourage boost start bowel regimen Admission and Anticipated Discharge Date Admission Date: April 29, 2021 Subjective She continues to have little appetite. She denies pain or tenderness today. She was up twice yesterday but still feels weak. Physical Exam Constitutional: WD/WN, vitals as above Neck: trachea midline, no thyromegaly normal visual inspection and trachea midline Gastrointestinal (Abdomen): normal bowel sounds, soft, nontender, no hepatosplenomegaly Inspection/Auscultation: abdomen normal to inspection, + abdominal wall ecchymosis (RLQ) and + abdominal surgical incision (dry); abdomen not distended Percussion/Palpation: + abdomen tender (Mild diffuse) and abdomen soft; no guarding and abdomen not rigid Musculoskeletal: Extremities: no cyanosis and no clubbing Skin: no rashes, warm and dry no jaundice Psychiatric: A+Ox3, euthymic affect Results & Data ([facility]) Vital Signs (Past 12 Hours) Vital Signs Temp Pulse Pulse Resp BP Pulse Ox 05/06/21 07:18 36.2 C L 18 128/76 96 05/06/21 06:14 113 H 05/06/21 03:27 36.7 C 106 H 16 115/71 94 05/05/21 23:05 37.1 C 103 H 16 115/73 94 05/05/21 22:27 105 H
[2021-05-06 08:59] LABS: Basophils # (auto) 0.02 K/uL (0-0.2); Basophils % (auto) 0.2 %; Eosinophils # (auto) 0.37 K/uL (0-0.5); Eosinophils % (auto) 3.6 %; Hematocrit (blood only) 28.8 % (37-47); Immature Granulocytes # (auto) 0.08 K/uL (0.00-0.02); Immature Granulocytes % (auto) 0.8 %; Lymphocytes # (auto) 1.15 K/uL (1.2-3.4); Lymphocytes % (auto) 11.1 %; Mean Corpuscular Hgb Conc 31.3 g/dL (32-36); Mean Corpuscular Volume 92.9 fL (80-100); Mean Platelet Volume 8.6 fL (7.4-10.4); Monocytes # (auto) 1.67 K/uL (0.11-0.59); Monocytes % (auto) 16.1 %; Neutrophils % (auto) 68.2 %; Platelet Count 336 K/uL (130-400); RDW Coefficient of Variation 19.2 % (11.5-14.5); RDW Standard Deviation 65.5 fL (36.4-46.3); White Blood Count 10.39 K/uL (4.8-10.8)
[2021-05-06] MEDS: ASCORBIC ACID 500 MG TAB PO SCH ×2 (09:02→12:43)
[2021-05-06] MEDS: ASPIRIN 81 MG ECTAB PO SCH (09:02)
[2021-05-06] MEDS: SENNA 8.6 MG TAB PO SCH (09:03)
[2021-05-06] MEDS: METOPROLOL SUCC 50MG EXT REL TAB PO SCH ×2 (09:04→22:22)
[2021-05-06] MEDS: SODIUM CHLORIDE 1 GM TABLET PO SCH ×2 (09:04→22:25)
[2021-05-06] MEDS: CYANOCOBALAMIN (B-12) 500 MCG TABLET PO SCH (09:05)
[2021-05-06] MEDS: CALCITRIOL 0.25 MCG CAPSULE PO SCH (09:06)
[2021-05-06] MEDS: PANTOprazole 40 MG TAB PO SCH ×2 (09:06→22:23)
[2021-05-06] MEDS: ZINC SULFATE 220 MG CAPSULE PO SCH (09:08)
[2021-05-06] MEDS: NYSTATIN SUSP 500,000 U/5 ML UDC PO SCH ×4 (09:11→22:24)
[2021-05-06] MEDS: SUCRALFATE 1 GM/10 ML UDC PO SCH ×4 (09:11→22:24)
[2021-05-06 09:27] LABS: BUN Creatinine Ratio 22.2 (10-20); Calcium 8.9 mg/dl (8.5-10.1); Creatinine Clr Calc Pharmacy 48.3 ml/min; Est GFR (Non-African American) 47.4 ml/min; Potassium 4.1 mmol/L (3.5-5.1)
[2021-05-06] MEDS: CALCIUM CARBONATE 500 MG CHEWABLE TAB PO SCH ×2 (10:12→22:51)
[2021-05-06] MEDS: ONDANSETRON 4 MG OD TAB PO PRN (10:13)
[2021-05-06] MEDS: ACETAMINOPHEN 325 MG TAB PO PRN (10:13)
[2021-05-06] MEDS ORDERED: PROMETHAZINE HCL 12.5 MG in SODIUM CHLORIDE 0.9% 50 ML IV STA (11:58)
[2021-05-06] MEDS ORDERED: DEXTROSE 10% 1,000 ML IV PRN (12:36)
[2021-05-06] MEDS ORDERED: TPN/PPN CONSULT PHARMACY STA (12:36)
[2021-05-06] MEDS: FERROUS SULFATE 325 MG TAB PO SCH (12:43)
[2021-05-06] MEDS ORDERED: TPN/PPN CONSULT PHARMACY PRN (12:46)
--- NOTE | 2021-05-06 13:06 | Hospitalist Progress Note ---
Date of Service May 06, 2021 Assessment & Plan (1) S/P right hemicolectomy: Plan: 85yo F with a PMH of colon adenocarcinoma, paroxysmal atrial fibrillation not on anticoagulation due to fall risk, chronic diastolic heart failure, s/p pacemak er, CKD III, MARTI on 2L NC O2 HS is being managed for the following: #. Adenocarcinoma of colon #. Status post right hemicolectomy : 04/27/[address] Salamanca Patient has not moved bowel after surgery, is moving gas. Diet and pain management by surgery. Continue PPI/incentive spirometer. Clinically, belly pain pain seems to be under control, normal bowel sounds. Patient complains of indigestion/epigastric burning/nausea. 05/03 CTAP reviewed: Suggestive of ileus versus gastroenteritis. Tums scheduled for trial, continue with PPI, nausea medications. PT/OT. #. Acute blood loss anemia Likely secondary to operation on 04/27 Status post 1 unit blood transfusion Hemoglobin has been stable, around 9 lately. Continue to monitor daily and as appropriate. #. Gastroenteritis Patient complained of indigestion/epigastric burning/nausea. Likely secondary to reflux disease. Per patient, the symptoms are not comfortably controlled. Continue with PPI twice daily and sucralfate, maalox, start Tums scheduled 05/06 Continue to monitor. Likely will need GI as an outpatient. #. Hyponatremia Sodium level went as low as 126, gradually improving, on sodium tablets twice daily Sodium level fairly stable, 134 today, continue to monitor sodium level. Expect to improve with improvement in dietary intake. #. Chronic medical conditions: Chronic diastolic heart failure, paroxysmal A. fib, VINITA over CKD stage III - resolved, pacemaker status, depression, anxiety, sleep apnea on 2 L NC O2 at bedtime Lasix on hold, consider resuming over next few days when blood pressure permits. Watch out for volume overload closely. Continue Toprol, dose has been increased to 200 mg twice daily. Heart rate slightly tachy, could be due to acute stress. Continue to monitor over telemetry. Continue with/resume other home meds as and when appropriate DVT Ppx: On heparin. Code status: FULL Disposition as per ortho Admission and Anticipated Discharge Date Admission Date: April 29, 2021 Subjective Patient seen and examined at bedside as a follow-up of status post right hemicolectomy for adenocarcinoma of the cecum, acute blood loss anemia and gastroenteritis. Patient lying in bed, on room air, NAD, no new acute events overnight. Patient reports some nausea and indigestion, has one episode of vomiting yesterday, patient on full liquid diet, denies any bowel movement after surgery, is moving gas, reports improvement in her belly pain, states some belly pain with movement, denies fever/chills/headache/chest pain/palpitation/sore throat/cough/other review of symptoms. Physical Exam Physical Exam: GENERAL: Alert and oriented x3. NAD, on RA. HEENT: No pallor, no icterus. Pupils equal, round and reactive to light. Oral mucosa moist. NECK: No JVD, no neck masses. HEART: S1 and S2 heard. Regular rate and rhythm. No murmur, no gallop. RESPIRATORY SYSTEM: Normal AP diameter. No accessory muscle use. No wheezing, no crackles. ABDOMEN: Soft, bowel sounds present, nontender, no distention. Laparoscopic surgical incision-healing well. CENTRAL NERVOUS SYSTEM: No facial droop. Speech is clear. Obeys simple commands. Moves extremities. EXTREMITIES: No edema, no erythema seen. Results & Data Results & Data ([facility]) Vital Signs (Past 12 Hours) Vital Signs Temp Pulse Pulse Resp BP Pulse Ox 05/06/21 10:41 36.4 C L 116 H 18 136/79 93 05/06/21 07:18 36.2 C L 18 128/76 96 05/06/21 06:14 113 H 05/06/21 03:27 36.7 C 106 H 16 115/71 94
[2021-05-06 13:40] LABS: Magnesium 1.9 mg/dl (1.7-2.4); Phosphorus 2.5 mg/dl (2.5-4.9)
[2021-05-06] MEDS: ADVANCED PROBIOTIC 1250 MG CAPSULE PO SCH (13:50)
--- NOTE | 2021-05-06 14:25 | Pharmacy Report ---
Pharmacy PN Initial Consult - Date of Service May 06, 2021 - Scope Pharmacy has been consulted to manage parenteral nutrition orders and order appropriate labs. As part of the Nutrition Support Team guidelines, pharmacy will work in conjunction with dietary when determining the patients caloric needs. - Subjective The patient is a 85 year old F admitted on 04/29/21 10:55 for STATUS POST RIGHT HEMICOLECTOMY. Patient is to receive parenteral nutrition for NPO/poor oral intake x 9 days postoperatively. Pertinent PMH: * colon adenocarcinoma, POD #9 s/p right laparoscopic hemicolectomy * CHF * CKD - Objective Height: 5 ft 7 in Weight: 101.3 kg Intake & Output (Last 24Hrs): Intake & Output 05/04/21 05/05/21 05/06/21 05/07/21 06:59 06:59 06:59 06:59 Intake Total 1279.000 / 8283.740 9382.25 / 1645.25 2371.667 / 2371.667 515.88 / 515.88 Output Total 275 / 275 175 / 175 300 / 300 Balance 1004.000 / 2109.123 5107.25 / 1470.25 2071.667 / 2071.667 515.88 / 515.88 Weight 96.9 kg 98.2 kg 101.3 kg 101.3 kg Laboratory Data (Last 24 Hrs):: 05/06/21 05/06/21 08:24 13:04 Sodium 134 L Potassium 4.1 Chloride 106 Carbon Dioxide 24 BUN 24 H Creatinine 1.08 Glucose 114 H Calcium 8.9 Phosphorus 2.5 Magnesium 1.9 Nutrition Assessment:: Please refer to the Notes section of the EMR for the most recent sports broadcasting internship note. - Assessment * RK is an 85 year old female ordered PPN due to prolonged NPO/poor intake s/p hemicolectomy on 04/27/21 * Macronutrient goals provided by [employer] developer * Volume rate goal of ~75 mL/hr per surgery * Electrolytes largely stable and WNL, improving hyponatremia * Will add thiamine to bag given risk for refeeding - Plan For day 1 of PN administration, the following will be ordered: Macronutrients Amino acids 71 grams/day Dextrose 84 grams/day Lipids 50 grams/day Micronutrients Combined electrolytes 20 mL - contains 35 mEq Na, 20 meq K, 4.5 mEq Ca, 5 mEq Mg, 35 mEq Cl, 29.5 mEq acetate per 20 mL Sodium phosphate 24 MMol Sodium chloride 50 mEq Sodium acetate 40 mEq Potassium acetate 40 mEq Multivitamins 10 mL Trace Elements 10 mL Additional additives: folic acid 1 mg, thiamine 100 mg Total volume 1779 mL to be infused over 24 hrs will provide 1071 kcal/day Final osmolarity 886 mOsm/L (maximum for PPN is 900 mOsm/L) Labs to be ordered per PN order protocol Pharmacy will follow and adjust parenteral nutrition orders on a daily basis. Thank you.
[2021-05-06] MEDS: HEPARIN SOD 5,000 UNIT/0.5 ML VIAL SQ SCH ×2 (15:15→22:25)
[2021-05-06] MEDS ORDERED: CLINOLIPID 20% IV FAT EMULSION 250 ML IV SCH (16:00)
[2021-05-06] MEDS ORDERED: AMINO ACIDS 4.25% IV SCH (16:00)
[2021-05-06] MEDS ORDERED: PERIPHERAL TPN IV SCH (16:00)
[2021-05-06] MEDS ORDERED: D5W IV SCH (16:00)
[2021-05-06] MEDS: LEVALBUTEROL HCL 1.25 MG/3 ML NEB NEB PRN (16:03)
[2021-05-06] MEDS: LATANOPROST 0.005% OP SOLN 2.5 ML BTL OP SCH (22:22)
[2021-05-06] MEDS: ATORVASTATIN 40 MG TAB PO SCH (22:23)
[2021-05-06] MEDS: DOCUSATE SODIUM/SENNA 50/8.6MG TAB PO SCH (22:24)
[2021-05-07] MEDS: HEPARIN SOD 5,000 UNIT/0.5 ML VIAL SQ SCH ×3 (06:03→22:09)
--- NOTE | 2021-05-07 08:07 | Surgery Progress Note ---
Date of Service May 07, 2021 Assessment & Plan (1) H/O colectomy: Plan: still not eating much, significant nausea yesterday Passing a small amount of flatus but no bowel movement Some right-sided abdominal pain labs normal will obtain UGI with SBFT today Admission and Anticipated Discharge Date Admission Date: April 29, 2021 Subjective Had significant nausea yesterday, requiring IV antinausea medication. She did throw up once. She still not eating much. She has not had a bowel movement, however she continues to pass flatus. She denies a significant amount of abdominal pain. White blood cell count yesterday was normal. She denies fevers or chills. Physical Exam Constitutional: WD/WN, vitals as above Neck: trachea midline, no thyromegaly normal visual inspection and trachea midline Respiratory: normal respiratory effort; no respiratory distress and no labored breathing Cardiovascular: Rate/Rhythm: regular rate and regular rhythm Gastrointestinal (Abdomen): normal bowel sounds, soft, nontender, no hepatosplenomegaly Inspection/Auscultation: abdomen normal to inspection, + abdominal wall ecchymosis (RLQ) and + abdominal surgical incision (dry); abdomen not distended Percussion/Palpation: + abdomen tender (Mild diffuse) and abdomen soft; no guarding and abdomen not rigid Musculoskeletal: Extremities: no cyanosis and no clubbing Skin: no rashes, warm and dry no jaundice Psychiatric: A+Ox3, euthymic affect Orientation: alert and oriented x 3 Results & Data ([facility]) Vital Signs (Past 12 Hours) Vital Signs Temp Pulse Pulse Resp BP BP Pulse Ox 05/07/21 07:00 37.1 C 114 H 18 134/87 98 05/07/21 04:36 36.6 C 100 H 18 140/97 99 05/06/21 23:07 37.1 C 102 H 18 137/83 97 05/06/21 22:20 99 H 05/06/21 20:08 38.0 C H 121 H 18 151/103 H 93
[2021-05-07 08:16] LABS: Hematocrit (blood only) 27.4 % (37-47); Hemoglobin 8.3 g/dL (12.0-16.0)
[2021-05-07 08:44] LABS: BUN Creatinine Ratio 30.6 (10-20); Calcium 9.1 mg/dl (8.5-10.1); Creatinine Clr Calc Pharmacy 53.3 ml/min; Est GFR (African American) 61.8 ml/min; Est GFR (Non-African American) 53.3 ml/min; Magnesium 1.9 mg/dl (1.7-2.4); Phosphorus 2.9 mg/dl (2.5-4.9); Potassium 4.2 mmol/L (3.5-5.1)
[2021-05-07] MEDS: SENNA 8.6 MG TAB PO SCH (09:01)
[2021-05-07] MEDS: ASPIRIN 81 MG ECTAB PO SCH (09:02)
[2021-05-07] MEDS: ADVANCED PROBIOTIC 1250 MG CAPSULE PO SCH (09:02)
[2021-05-07] MEDS: ASCORBIC ACID 500 MG TAB PO SCH ×2 (09:02→12:43)
[2021-05-07] MEDS: DULoxetine HCL 20 MG CAP PO SCH (09:02)
[2021-05-07] MEDS: NYSTATIN SUSP 500,000 U/5 ML UDC PO SCH ×4 (09:03→22:09)
[2021-05-07] MEDS: METOPROLOL SUCC 50MG EXT REL TAB PO SCH ×2 (09:03→22:06)
[2021-05-07] MEDS: PANTOprazole 40 MG TAB PO SCH ×2 (09:03→22:06)
[2021-05-07] MEDS: ZINC SULFATE 220 MG CAPSULE PO SCH (09:04)
[2021-05-07] MEDS: SODIUM CHLORIDE 1 GM TABLET PO SCH ×2 (09:04→22:04)
[2021-05-07] MEDS: SUCRALFATE 1 GM/10 ML UDC PO SCH ×4 (09:04→22:09)
[2021-05-07] MEDS: CALCITRIOL 0.25 MCG CAPSULE PO SCH (09:05)
[2021-05-07] MEDS: CALCIUM CARBONATE 500 MG CHEWABLE TAB PO SCH ×2 (09:06→22:07)
[2021-05-07] MEDS: LEVALBUTEROL HCL 1.25 MG/3 ML NEB NEB PRN (09:12)
[2021-05-07] MEDS: LACTULOSE 200GM/700ML WTR ENEMA PR SCH ×2 (09:50→16:27)
[2021-05-07] MEDS: FERROUS SULFATE 325 MG TAB PO SCH (12:43)
[2021-05-07] MEDS: DICLOFENAC SOD 1% GEL 100 GM TUBE EXT SCH ×2 (14:02→22:07)
[2021-05-07] MEDS: ACETAMINOPHEN 325 MG TAB PO PRN ×2 (14:03→23:18)
[2021-05-07] MEDS ORDERED: PERIPHERAL TPN IV SCH (16:00)
[2021-05-07] MEDS ORDERED: CLINOLIPID 20% IV FAT EMULSION 250 ML IV SCH (16:00)
[2021-05-07] MEDS ORDERED: AMINO ACIDS 4.25% IV SCH (16:00)
[2021-05-07] MEDS ORDERED: D5W IV SCH (16:00)
--- NOTE | 2021-05-07 16:24 | Hospitalist Progress Note ---
Date of Service May 07, 2021 Assessment & Plan (1) S/P right hemicolectomy: Plan: 85yo F with a PMH of colon adenocarcinoma, paroxysmal atrial fibrillation not on anticoagulation due to fall risk, chronic diastolic heart failure, s/p pacema ker, CKD III, MARTI on 2L NC O2 HS is being managed for the following: #. Adenocarcinoma of colon #. Status post right hemicolectomy : 04/27/[address] Salamanca Patient has not moved bowel after surgery, is moving gas. 05/03 CTAP reviewed: Suggestive of ileus versus gastroenteritis. Diet and pain management by surgery. Continue PPI/incentive spirometer. Patient had a large bowel movement 05/07. Clinically, belly pain pain seems to be under control, normal bowel sounds. Patient reports improvement of indigestion/epigastric burning/nausea. We will continue Tums scheduled along with PPI. Nausea medication as needed. PT/OT. #. Acute blood loss anemia Likely secondary to operation on 04/27 Status post 1 unit blood transfusion Hemoglobin has been stable, around 8-9 lately. Continue to monitor daily and as appropriate. #. Gastroenteritis Patient complained of indigestion/epigastric burning/nausea. Likely secondary to reflux disease. Per patient, the symptoms are getting better. Patient is still eating little. Continue with PPI twice daily and sucralfate, maalox, continue with Tums scheduled 05/06 Continue to monitor. Likely will need GI as an outpatient. #. Hyponatremia Sodium level went as low as 126, gradually improving, on sodium tablets twice daily Sodium level fairly stable, 135 today, continue to monitor sodium level. Expect to improve with improvement in dietary intake. #. Chronic medical conditions: Chronic diastolic heart failure, paroxysmal A. fib, VINITA over CKD stage III - resolved, pacemaker status, depression, anxiety, sleep apnea on 2 L NC O2 at bedtime Lasix on hold, consider resuming over next few days when blood pressure permits. Watch out for volume overload closely. Continue Toprol, dose has been increased to 200 mg twice daily. Heart rate s lightly tachy, could be due to acute stress. Continue to monitor over telemetry. Continue with/resume other home meds as and when appropriate DVT Ppx: On heparin. Code status: FULL Disposition as per ortho Admission and Anticipated Discharge Date Admission Date: April 29, 2021 Subjective Patient seen and examined at bedside as a follow-up of status post right hemicolectomy for adenocarcinoma of the cecum, acute blood loss anemia and gastroenteritis. Patient was sitting up in chair, on room air, NAD, no new acute events overnight. Patient had a last bowel movement in the morning. Patient reports improvement in her nausea/vomiting/epigastric pain or burning. Patient reports belly pain under control. Denies fever/chills/headache/chest pain/palpitation/sore throat/cough/other review of symptoms. She is eating little. Physical Exam Physical Exam: GENERAL: Alert and oriented x3. NAD, on RA. HEENT: No pallor, no icterus. Pupils equal, round and reactive to light. Oral mucosa moist. NECK: No JVD, no neck masses. HEART: S1 and S2 heard. Regular rate and rhythm. No murmur, no gallop. RESPIRATORY SYSTEM: Normal AP diameter. No accessory muscle use. No wheezing, no crackles. ABDOMEN: Soft, bowel sounds present, nontender, no distention. Laparoscopic surgical incision-healing well. CENTRAL NERVOUS SYSTEM: No facial droop. Speech is clear. Obeys simple commands. Moves extremities. EXTREMITIES: No edema, no erythema seen. Results & Data Results & Data ([facility]) Vital Signs (Past 12 Hours) Vital Signs Temp Pulse Pulse Resp BP BP Pulse Ox 05/07/21 15:53 36.4 C L 109 H 16 121/71 94 05/07/21 09:17 97 H 20 92 05/07/21 07:00 37.1 C 114 H 18 134/87 98 05/07/21 06:16 98 H 05/07/21 04:36 36.6 C 100 H 18 140/97 99
[2021-05-07] MEDS ORDERED: NITROGLYCERIN SL 0.4 MG/TAB TAB SL STA (20:10)
[2021-05-07] MEDS ORDERED: XOPENEX/ATROVENT 1.25mg/0.5MG NEB COMBO NEB STA (20:11)
[2021-05-07] MEDS ORDERED: IPRATROPIUM BROMIDE NEB SOLN 0.02% 2.5 ML VIAL INH STA (20:12)
[2021-05-07] MEDS ORDERED: LEVALBUTEROL 1.25MG/0.5ML NEB INH STA (20:12)
[2021-05-07] MEDS ORDERED: MAGNESIUM SULFATE / D5W 1 GM/100 ML BAG IV ONE (20:30)
--- NOTE | 2021-05-07 20:44 | XRay Report ---
XR chest 1V portable HISTORY: Wheezing. COMPARISON: Chest 04/28/2021. FINDINGS: No pneumothorax. No pleural effusions. The heart remains mildly enlarged. There is a left-s ided dual-chamber pacemaker. There is mild elevation the right hemidiaphragm, unchanged. A few bibasi lar linear densities favor subsegmental atelectasis or scarring. No evidence for pulmonary edema. Sma ll focal density within the right midlung zone. This is new from the prior study. IMPRESSION: 1. Small focal density within the right midlung zone. This is new from the prior study and may repres ent atelectasis or developing pneumonia. 2. Stable cardiomegaly. ACT 112: Negative or not required by law. Electronically signed by: Enrique Bennett M.D. 05/07/2021 8:43 PM
[2021-05-07 21:20] LABS: Partial Thromboplastin Ratio 0.9; Partial Thromboplastin Time 25.4 Seconds (21.0-31.0)
[2021-05-07] MEDS: ATORVASTATIN 40 MG TAB PO SCH (22:05)
[2021-05-07] MEDS: DOCUSATE SODIUM/SENNA 50/8.6MG TAB PO SCH (22:05)
[2021-05-07] MEDS: LATANOPROST 0.005% OP SOLN 2.5 ML BTL OP SCH (22:06)
[2021-05-08] MEDS: DICLOFENAC SOD 1% GEL 100 GM TUBE EXT SCH ×3 (05:42→21:23)
[2021-05-08] MEDS: HEPARIN SOD 5,000 UNIT/0.5 ML VIAL SQ SCH ×3 (05:56→22:09)
--- NOTE | 2021-05-08 07:13 | Electrocardiogram Report ---
Test Reason : Blood Pressure : / mmHG Vent. Rate : 106 BPM Atrial Rate : 136 BPM P-R Int : 000 ms QRS Dur : 100 ms QT Int : 326 ms P-R-T Axes : 000 051 208 degrees QTc Int : 433 ms Atrial fibrillation with rapid ventricular response with occasional AV dual-paced complexes Nonspecific ST and T wave abnormality Abnormal ECG When compared with ECG of 13-FEB-2021 16:55, Sequential atrial-ventricular pacing now present Confirmed by Jem Hidalgo ([id number]) on 05/08/2021 7:12:59 AM Referred By: Ashok Salamanca Confirmed By:Jem Hidalgo
[2021-05-08] MEDS: PANTOprazole 40 MG TAB PO SCH ×2 (08:13→22:08)
[2021-05-08] MEDS: CALCITRIOL 0.25 MCG CAPSULE PO SCH (08:13)
[2021-05-08] MEDS: METOPROLOL SUCC 50MG EXT REL TAB PO SCH ×2 (08:13→22:07)
[2021-05-08] MEDS: SENNA 8.6 MG TAB PO SCH (08:14)
[2021-05-08] MEDS: ADVANCED PROBIOTIC 1250 MG CAPSULE PO SCH (08:14)
[2021-05-08] MEDS: CYANOCOBALAMIN (B-12) 500 MCG TABLET PO SCH (08:14)
[2021-05-08] MEDS: ZINC SULFATE 220 MG CAPSULE PO SCH (08:14)
[2021-05-08] MEDS: ASPIRIN 81 MG ECTAB PO SCH (08:14)
[2021-05-08] MEDS: DULoxetine HCL 20 MG CAP PO SCH (08:14)
[2021-05-08] MEDS: SODIUM CHLORIDE 1 GM TABLET PO SCH ×2 (08:14→22:06)
[2021-05-08] MEDS: ASCORBIC ACID 500 MG TAB PO SCH ×2 (08:15→12:00)
[2021-05-08] MEDS: CALCIUM CARBONATE 500 MG CHEWABLE TAB PO SCH ×2 (08:15→22:10)
[2021-05-08] MEDS: SUCRALFATE 1 GM/10 ML UDC PO SCH ×4 (08:18→22:08)
[2021-05-08] MEDS: NYSTATIN SUSP 500,000 U/5 ML UDC PO SCH ×4 (08:18→22:07)
[2021-05-08] MEDS: oxyCODONE HCL IR 5 MG TAB (IMMEDIATE RELEASE) PO PRN (08:32)
--- NOTE | 2021-05-08 08:37 | Surgery Progress Note ---
Date of Service May 08, 2021 Assessment & Plan (1) H/O colectomy: Plan: Significant improvement since yesterday; 4 bowel movements overnight No further nausea. She wants to would advance her diet Advance diet to heart healthy Continue ambulation /PT/OT stop PPN today Possible discharge to rehab in the next few days - will check with Case Management Admission and Anticipated Discharge Date Admission Date: April 29, 2021 Subjective Feeling much better today. No further nausea. She ate a sandwich last night. She has had 4 bowel movements overnight. She was up in the chair 3 times yesterday. Physical Exam Constitutional: WD/WN, vitals as above Neck: trachea midline, no thyromegaly normal visual inspection and trachea midline Respiratory: normal respiratory effort; no respiratory distress and no labored breathing Cardiovascular: Rate/Rhythm: regular rate and regular rhythm Gastrointestinal (Abdomen): normal bowel sounds, soft, nontender, no hepatosplenomegaly Inspection/Auscultation: abdomen normal to inspection, + abdominal wall ecchymosis (RLQ) and + abdominal surgical incision (dry); abdomen not distended Percussion/Palpation: + abdomen tender (Mild diffuse) and abdomen soft; no guarding and abdomen not rigid Musculoskeletal: Extremities: no cyanosis and no clubbing Skin: no rashes, warm and dry no jaundice Psychiatric: A+Ox3, euthymic affect Orientation: alert and oriented x 3 Results & Data ([facility]) Vital Signs (Past 12 Hours) Vital Signs Temp Pulse Pulse Pulse Resp BP BP 05/08/21 07:37 36.7 C 75 19 126/79 05/08/21 06:14 96 H 05/08/21 02:46 36.7 C 106 H 18 136/93 05/07/21 22:55 36.4 C L 109 H 20 146/93 H 05/07/21 22:19 116 H 05/07/21 21:22 36.7 C 105 H 18 128/74 05/07/21 20:40 103 H 18 Pulse Ox 05/08/21 07:37 94 05/08/21 06:14 05/08/21 02:46 98 05/07/21 22:55 92 05/07/21 22:19 05/07/21 21:22 97 05/07/21 20:40 97
[2021-05-08] MEDS: FUROSEMIDE 40 MG TAB PO SCH (08:55)
[2021-05-08 09:13] LABS: Creatinine Clr Calc Pharmacy 53.5 ml/min; Est GFR (African American) 60.3 ml/min; Est GFR (Non-African American) 52.1 ml/min; Magnesium 1.9 mg/dl (1.7-2.4); Phosphorus 3.2 mg/dl (2.5-4.9); Potassium 4.4 mmol/L (3.5-5.1)
[2021-05-08] MEDS: SPIRONOLACTONE 25 MG TAB PO SCH (09:35)
[2021-05-08] MEDS: FERROUS SULFATE 325 MG TAB PO SCH (11:59)
[2021-05-08] MEDS: PROMETHAZINE HCL 6.25 MG in SODIUM CHLORIDE 0.9% 50 ML IV PRN ×2 (14:15→21:39)
[2021-05-08] MEDS: ALUMINUM/MAGNESIUM/SIMETH (MAALOX MAX) 30 ML UDC PO PRN (14:15)
--- NOTE | 2021-05-08 16:13 | Hospitalist Progress Note ---
Date of Service May 08, 2021 Assessment & Plan (1) S/P right hemicolectomy: Plan: 85yo F with a PMH of colon adenocarcinoma, paroxysmal atrial fibrillation not on anticoagulation due to fall risk, chronic diastolic heart failure, s/p pacema ker, CKD III, MARTI on 2L NC O2 HS is being managed for the following: #. Adenocarcinoma of colon #. Status post right hemicolectomy : 04/27/[address] Salamanca Patient has not moved bowel after surgery, is moving gas. 05/03 CTAP reviewed: Suggestive of ileus versus gastroenteritis. Diet and pain management by surgery. Continue PPI/incentive spirometer. Clinically, belly pain pain seems to be under control, normal bowel sounds. Moving bowels good. Patient reports improvement of indigestion/epigastric burning/nausea. We will continue Tums scheduled along with PPI. Nausea medication as needed. PT/OT. #. Acute blood loss anemia Likely secondary to operation on 04/27 Status post 1 unit blood transfusion Hemoglobin has been stable, around 8-9 lately. Continue to monitor daily and as appropriate. #. Gastroenteritis Patient complained of indigestion/epigastric burning/nausea. Likely secondary to reflux disease. Per patient, the symptoms are getting better. Patient eating ok. Patient advised to eat small meals at a time. Continue with PPI twice daily and sucralfate, maalox, continue with Tums scheduled 05/06 Continue to monitor. Likely will need GI as an outpatient. #. Hyponatremia Sodium level went as low as 126, gradually improving, on sodium tablets twice daily Sodium level fairly stable, 133 today, continue to monitor sodium level. Expect to improve with improvement in dietary intake. #. Chronic medical conditions: Chronic diastolic heart failure, paroxysmal A. fib, VINITA over CKD stage III - resolved, pacemaker status, depression, anxiety, sleep apnea on 2 L NC O2 at bedtime Lasix on hold, consider resuming over next few days when blood pressure permits. Watch out for volume overload closely. Continue Toprol, dose has been increased to 200 mg twice daily. Heart rate slightly tachy, could be due to acute stress. Continue to monitor over telemetry. Continue with/resume other home meds as and when appropriate DVT Ppx: On heparin. Code status: FULL Disposition as per ortho Admission and Anticipated Discharge Date Admission Date: April 29, 2021 Subjective Patient seen and examined at bedside as a follow-up of status post right hemicolectomy for adenocarcinoma of the cecum, acute blood loss anemia and gastroenteritis. Patient was lying in bed, on room air, NAD, no new acute events overnight. Patient had 4 bowel movements overnight. Patient is tolerating diet, complains of minimal indigestion. Patient advised to have small volume of meals at a time. Patient denies any nausea or vomiting or belly pain. Denies fever/chills/headache/chest pain/palpitation/sore throat/cough/other review of symptoms. Physical Exam Physical Exam: GENERAL: Alert and oriented x3. NAD, on RA. HEENT: No pallor, no icterus. Pupils equal, round and reactive to light. Oral mucosa moist. NECK: No JVD, no neck masses. HEART: S1 and S2 heard. Regular rate and rhythm. No murmur, no gallop. RESPIRATORY SYSTEM: Normal AP diameter. No accessory muscle use. No wheezing, no crackles. ABDOMEN: Soft, bowel sounds present, nontender, no distention. Laparoscopic surgical incision-healing well. CENTRAL NERVOUS SYSTEM: No facial droop. Speech is clear. Obeys simple commands. Moves extremities. EXTREMITIES: No edema, no erythema seen. Results & Data Results & Data ([facility]) Vital Signs (Past 12 Hours) Vital Signs Temp Pulse Pulse Resp BP BP Pulse Ox 05/08/21 15:41 36.2 C L 108 H 20 144/94 H 96 05/08/21 11:16 36.4 C L 108 H 20 142/80 H 95 05/08/21 07:37 36.7 C 75 19 126/79 94 05/08/21 06:14 96 H
[2021-05-08] MEDS: LEVALBUTEROL HCL 1.25 MG/3 ML NEB NEB PRN (20:24)
[2021-05-08] MEDS: ATORVASTATIN 40 MG TAB PO SCH (22:06)
[2021-05-08] MEDS: DOCUSATE SODIUM/SENNA 50/8.6MG TAB PO SCH (22:07)
[2021-05-08] MEDS: LATANOPROST 0.005% OP SOLN 2.5 ML BTL OP SCH (22:09)
[2021-05-08] MEDS: ACETAMINOPHEN 325 MG TAB PO PRN (22:11)
[2021-05-08] MEDS ORDERED: PIPERACILL/TAZOBAC CONSULT ACTIVE PRN (22:41)
[2021-05-08] MEDS ORDERED: XOPENEX/ATROVENT 1.25mg/0.5MG NEB COMBO NEB STA (22:41)
--- NOTE | 2021-05-08 22:42 | Communication Note ---
Date of Service: May 08, 2021 Patient with cough symptoms and expiratory wheezing as per RN. Chest x-ray yesterday noted right midlung density. AP HAP No sepsis for now Zosyn Will relay to AM provider.
[2021-05-08] MEDS ORDERED: MAGNESIUM SULFATE / D5W 1 GM/100 ML BAG IV ONE (23:00)
[2021-05-08] MEDS ORDERED: IPRATROPIUM BROMIDE NEB SOLN 0.02% 2.5 ML VIAL INH STA (23:12)
[2021-05-08] MEDS ORDERED: LEVALBUTEROL 1.25MG/0.5ML NEB INH STA (23:12)
[2021-05-08] MEDS ORDERED: PIPERACILLIN/TAZOBACTAM 4.5 GM in DEXTROSE 5% 100 ML IV ONE (23:15)
--- NOTE | 2021-05-08 23:15 | XRay Report ---
XR chest 1V portable HISTORY: 85 years-old Female abn breath sounds acute shortness of breath COMPARISON: Chest radiograph 05/07/2021 TECHNIQUE: AP view of the chest FINDINGS: Cardiac silhouette is enlarged. Left subclavian pacer. Mild right hemidiaphragmatic elevation. No pne umothorax, pleural effusion, airspace consolidation or overt pulmonary edema. Previously noted right midlung opacity is not well visualized. Telemetry leads overlie the right chest. Degenerative changes of the shoulders and spine. IMPRESSION: 1. Cardiomegaly without acute process. 2. The previously described subtle right midlung opacity is partially obscured by the telemetry leads . ACT 112: Negative or not required by law. The above report was generated using voice recognition software. It may contain grammatical, syntax o r spelling errors. Electronically signed by: Jose Cody M.D. 05/08/2021 11:13 PM
[2021-05-09] MEDS: HEPARIN SOD 5,000 UNIT/0.5 ML VIAL SQ SCH ×2 (05:03→13:28)
[2021-05-09] MEDS: PIPERACILLIN/TAZOBACTAM 4.5 GM in DEXTROSE 5% 100 ML IV SCH ×3 (05:18→21:18)
[2021-05-09] MEDS: DICLOFENAC SOD 1% GEL 100 GM TUBE EXT SCH ×3 (05:20→21:10)
[2021-05-09 06:56] LABS: Hematocrit (blood only) 26.1 % (37-47)
[2021-05-09 07:20] LABS: BUN Creatinine Ratio 35.8 (10-20); Creatinine Clr Calc Pharmacy 47.9 ml/min; Est GFR (African American) 54.4 ml/min; Est GFR (Non-African American) 46.9 ml/min; Phosphorus 3.3 mg/dl (2.5-4.9); Potassium 4.2 mmol/L (3.5-5.1)
[2021-05-09] MEDS: SPIRONOLACTONE 25 MG TAB PO SCH (07:55)
[2021-05-09] MEDS: SUCRALFATE 1 GM/10 ML UDC PO SCH ×4 (07:55→21:12)
[2021-05-09] MEDS: SODIUM CHLORIDE 1 GM TABLET PO SCH ×2 (07:55→21:13)
[2021-05-09] MEDS: ASPIRIN 81 MG ECTAB PO SCH (07:57)
[2021-05-09] MEDS: ASCORBIC ACID 500 MG TAB PO SCH ×2 (07:57→12:18)
[2021-05-09] MEDS: DULoxetine HCL 20 MG CAP PO SCH (07:57)
[2021-05-09] MEDS: CALCITRIOL 0.25 MCG CAPSULE PO SCH (07:57)
[2021-05-09] MEDS: FUROSEMIDE 40 MG TAB PO SCH (07:57)
[2021-05-09] MEDS: PANTOprazole 40 MG TAB PO SCH ×2 (07:58→21:12)
[2021-05-09] MEDS: SENNA 8.6 MG TAB PO SCH (07:58)
[2021-05-09] MEDS: ZINC SULFATE 220 MG CAPSULE PO SCH (07:58)
[2021-05-09] MEDS: ADVANCED PROBIOTIC 1250 MG CAPSULE PO SCH (07:58)
[2021-05-09] MEDS: NYSTATIN SUSP 500,000 U/5 ML UDC PO SCH ×4 (08:01→21:13)
[2021-05-09] MEDS: METOPROLOL SUCC 50MG EXT REL TAB PO SCH ×2 (08:23→22:25)
--- NOTE | 2021-05-09 10:01 | Surgery Progress Note ---
Date of Service May 09, 2021 Assessment & Plan (1) H/O colectomy: Plan: POD 12 right colectomy continue diet as elder getting 40 mg lasix daily H&H has remained between 8-[address] Hall Admission and Anticipated Discharge Date Admission Date: April 29, 2021 Subjective bowels moving but had some nausea yesterday c/o fluid retention, started on lasix yesterday Physical Exam Gastrointestinal (Abdomen): Inspection/Auscultation: + abdominal wall ecchymosis (right side) and + abdominal surgical incision (no erythema); abdomen not distended Results & Data ([facility]) Vital Signs (Past 12 Hours) Vital Signs Temp Pulse Pulse Resp BP BP Pulse Ox 05/09/21 06:45 36.6 C 96 H 20 140/96 100 05/09/21 03:20 36.3 C L 110 H 20 129/85 100 05/08/21 23:32 36.9 C 113 H 20 144/84 H 97 05/08/21 23:20 109 H 18 98 05/08/21 22:18 107 H PG Care Time/CCT Total # of Minutes Spent Total Time Spent with Patient: Total time spent is greater than 50% in coordination of care (as documented) at patient's floor/unit and/or counseling patient: Coding Level of Care Code 43538 Subseq Hosp Care Lvl 1 Diagnoses H/O colectomy Z90.49
[2021-05-09] MEDS: CALCIUM CARBONATE 500 MG CHEWABLE TAB PO SCH ×2 (12:06→21:12)
[2021-05-09] MEDS: FERROUS SULFATE 325 MG TAB PO SCH (12:07)
[2021-05-09] MEDS: ACETAMINOPHEN 325 MG TAB PO PRN (12:40)
--- NOTE | 2021-05-09 13:07 | CT Scan Report ---
ABDOMEN AND PELVIS CT WITHOUT CONTRAST CT DOSE: 997.90 mGycm HISTORY: rt belly ecchymosis and right-sided abdominal pain, s/p hemicolectomy TECHNIQUE: Multiaxial CT images of the abdomen and pelvis were performed without contrast. A dose lo wering technique was utilized adhering to the principles of ALARA. COMPARISON STUDY: Abdomen and pelvis CT 05/03/2021. FINDINGS: Trace right pleural effusion is again noted with bibasilar linear densities suggesting subs egmental atelectasis. There are 2 groundglass nodules within the right middle lobe with the largest o n image 4 measuring 4 mm. Pacemaker wires are noted. The heart remains mildly enlarged. No pneumoperi toneum. No pneumatosis. No acute fractures within the visualized osseous structures. Extensive body w all edema most pronounced within the right flank is again noted. This has slightly progressed. There is associated skin thickening. Interval development of a small left rectus sheath hematoma best seen on image 348. This measures 3.8 x 2.2 cm. No retroperitoneal hematoma identified. Small gas and fluid collection at the midline incision has slightly increased in size. This measures 5 cm and contains a small hematocrit level suggesting a hematoma. This is likely due to the postoperative change. Small focus of subcutaneous hemorrhage within the left lower quadrant measuring 2.8 cm. Punctate focus of g as within the bladder lumen likely due to the prior catheterization. This has improved. The uterus is surgically absent. Trace ascites is noted. Mild thickening of the distal esophagus, unchanged. The u nenhanced liver, gallbladder, pancreas, spleen, and adrenal glands are unremarkable. Bilateral renal hypodense lesions are again noted. These are incompletely characterized on this noncontrast study but statistically represent cysts. Renal vascular calcifications are again noted. No hydronephrosis. No retroperitoneal lymphadenopathy. Calcified plaque within the mildly ectatic abdominal aorta. Anastomo tic suture material again noted within the small bowel the right lower quadrant. Small amount of hemo rrhage adjacent to the anastomotic suture material has slightly improved. Colonic diverticulosis. No evidence for acute diverticulitis. A few borderline dilated fluid filled loops of small bowel within the deep pelvis which measure up to 3.2 cm in diameter. This favors a resolving ileus. A partial smal l bowel obstruction is considered less likely but not entirely excluded. The patient is status post r ight hemicolectomy. IMPRESSION: 1. Postoperative changes consistent with recent right hemicolectomy. The trace hyperdense fluid adjac ent to the bowel anastomosis has slightly improved. This suggests resolving postoperative hemorrhage. No extra luminal gas to suggest a perforation. 2. A 5 cm subcutaneous fluid collection within the midline incision which contains a small focus of g as and a hematocrit level. This favors a postoperative hematoma. 3. Extensive body wall edema most pronounced along the right flank with associated skin thickening. T his has slightly progressed. 4. Interval development of a small left rectus sheath hematoma measuring 3.8 x 2.2 cm. 5. Trace ascites. 6. Trace right pleural effusion, unchanged. 7. There are 2 subcentimeter groundglass nodules measuring up to 4 mm within the right middle lobe. T his favors a small focus of inflammatory/infectious change. 8. A few borderline dilated fluid filled loops of small bowel within the deep pelvis which measure up to 3.2 cm in diameter. This favors a resolving ileus. A partial small bowel obstruction is considere d less likely but not entirely excluded. 9. Additional findings as described above. ACT 112: Negative or not required by law. Electronically signed by: Enrique Bennett M.D. 05/09/2021 1:06 PM
[2021-05-09] MEDS ORDERED: FUROSEMIDE INJ 20 MG/2 ML VIAL IV ONE (14:00)
--- NOTE | 2021-05-09 18:47 | Hospitalist Progress Note ---
Date of Service May 09, 2021 Assessment & Plan (1) S/P right hemicolectomy: Plan: 85yo F with a PMH of colon adenocarcinoma, paroxysmal atrial fibrillation not on anticoagulation due to fall risk, chronic diastolic heart failure, s/p pacema ker, CKD III, MARTI on 2L NC O2 HS is being managed for the following: #. Adenocarcinoma of colon #. Status post right hemicolectomy : 04/27/[address] Salamanca 05/03 CTAP reviewed: Suggestive of ileus versus gastroenteritis. Diet and pain management by surgery. Continue PPI/incentive spirometer. Clinically, belly pain pain seems to be under control, normal bowel sounds. Moving bowels good. Patient reports reoccurence of indigestion/epigastric burning, patient apparently denied Tums before this event. Patient agreeable to try Tums again. We will continue to monitor. Continue Tums scheduled along with PPI. Nausea medication as needed. PT/OT. #. Acute blood loss anemia Likely secondary to operation on 04/27 Status post 1 unit blood transfusion Hemoglobin has been stable, around 8-9 lately. Continue to monitor daily and as appropriate. #. Gastroenteritis Patient complained of indigestion/epigastric burning/nausea. Likely secondary to reflux disease. Per patient, the symptoms are came back again. Patient eating less. Patient advised to eat small meals at a time. Continue with PPI twice daily and sucralfate, maalox, continue with Tums scheduled. Continue to monitor. Likely will need GI as an outpatient. #. Hyponatremia Sodium level went as low as 126, gradually improving, on sodium tablets twice daily Sodium level fairly stable, 133 today, continue to monitor sodium level. Expect to improve with improvement in dietary intake. #. Tachycardia #. Afib RVR Patient has been tachycardic in 90s - 110s Pt does have PAF, not on anticoagulation due to history of multiple falls, spontaneous thigh hematoma and recent surgery status. Metoprolol recently increased to 200 mg twice daily. EKG in AM If heart rate not controlled, consider cardiology consult. #. Rt abdominal wall hematoma Patient has right abdominal wall edema with ecchymosis --> holding heparin and aspirin for now 04/29 CTAP: 5 cm subcutaneous postoperative hematoma noted in the midline incision, extensive body wall edema along the right lying with associated skin thickening. Small left rectus sheath hematoma measuring 3.8 x 2.2 cm. continue to monitor. Monitor hb daily and as needed. Slowly dropping again. #. Likely hospital acquired pneumonia pt reporting cough, CTAP revealed likley infectious change in Rt middle lobe c/w zosyn 05/09. #. Chronic medical conditions: Chronic diastolic heart failure, paroxysmal A. fib, VINITA over CKD stage III - resolved, pacemaker status, depression, anxiety, sleep apnea on 2 L NC O2 at bedtime Continue Toprol, dose has been increased to 200 mg twice daily. Heart rate slightly tachy, could be due to acute stress. Continue to monitor over telemetry. Continue with/resume other home meds as and when appropriate DVT Ppx: hold heparin, re-abd ecchymoses and hematoma Code status: FULL Disposition as per ortho Admission and Anticipated Discharge Date Admission Date: April 29, 2021 Subjective Patient seen and examined at bedside as a follow-up of status post right hemicolectomy for adenocarcinoma of the cecum, acute blood loss anemia and gastroenteritis. Patient was lying in bed, on room air, NAD, no new acute events overnight. Patient reports moving bowels okay, reports indigestion/heartburn increasing, patient apparently denied Tums and the problem started again. Patient is willing to take Tums again. Patient is eating less today due to heartburn. Patient advised to have small volume of meals at a time. Patient denies any nausea or vomiting. Patient reports right-sided belly discomfort/some pain. Denies fever/chills/headache/chest pain/palpitation/sore throat/cough/other review of symptoms. Physical Exam Physical Exam: GENERAL: Alert and oriented x3. NAD, on 2 L. HEENT: No pallor, no icterus. Pupils equal, round and reactive to light. Oral mucosa moist. NECK: No JVD, no neck masses. HEART: S1 and S2 heard. Regular rate and rhythm. No murmur, no gallop. RESPIRATORY SYSTEM: Normal AP diameter. No accessory muscle use. No wheezing, no crackles. ABDOMEN: Soft, bowel sounds present, nontender, no distention. Laparoscopic surgical incision-healing well. Right-sided ecchymosis noted with right abdominal wall edema. CENTRAL NERVOUS SYSTEM: No facial droop. Speech is clear. Obeys simple commands. Moves extremities. EXTREMITIES: 1+ BLE edema, no erythema seen. Results & Data Results & Data ([facility]) Vital Signs (Past 12 Hours) Vital Signs Temp Pulse Resp BP Pulse Ox 05/09/21 16:16 36.4 C L 109 H 20 132/78 98 05/09/21 12:03 36.7 C 65 18 148/87 H 97 05/09/21 06:45 36.6 C 96 H 20 140/96 100
[2021-05-09] MEDS: LATANOPROST 0.005% OP SOLN 2.5 ML BTL OP SCH (21:11)
[2021-05-09] MEDS: ATORVASTATIN 40 MG TAB PO SCH (21:11)
[2021-05-09] MEDS: DOCUSATE SODIUM/SENNA 50/8.6MG TAB PO SCH (21:13)
[2021-05-09] MEDS: oxyCODONE HCL IR 5 MG TAB (IMMEDIATE RELEASE) PO PRN (23:17)
[2021-05-10] MEDS: LEVALBUTEROL HCL 1.25 MG/3 ML NEB NEB PRN (00:27)
[2021-05-10] MEDS: DICLOFENAC SOD 1% GEL 100 GM TUBE EXT SCH ×3 (05:26→21:32)
[2021-05-10] MEDS: PIPERACILLIN/TAZOBACTAM 4.5 GM in DEXTROSE 5% 100 ML IV SCH ×3 (05:27→21:32)
[2021-05-10 06:26] LABS: Hematocrit (blood only) 27.7 % (37-47); Hemoglobin 8.4 g/dL (12.0-16.0)
[2021-05-10] MEDS ORDERED: DIGOXIN 0.125 MG TAB PO ONE (08:35)
--- NOTE | 2021-05-10 09:20 | Electrocardiogram Report ---
Test Reason : Blood Pressure : / mmHG Vent. Rate : 112 BPM Atrial Rate : 086 BPM P-R Int : 000 ms QRS Dur : 104 ms QT Int : 352 ms P-R-T Axes : 000 017 185 degrees QTc Int : 480 ms Atrial fibrillation with rapid ventricular response with premature ventricular or aberrantly conducte d complexes Occasional Sequential atrial-ventricular pacing Diffuse Nonspecific ST and T wave abnormality Abnormal ECG When compared with ECG of 07-MAY-2021 20:26, No significant change Confirmed by Jem Hidalgo ([id number]) on 05/10/2021 9:19:39 AM Referred By: Ashok Salamanca Confirmed By:Jem Hidalgo
[2021-05-10] MEDS: CALCIUM CARBONATE 500 MG CHEWABLE TAB PO SCH ×2 (09:40→21:33)
[2021-05-10] MEDS: PANTOprazole 40 MG TAB PO SCH ×2 (09:41→21:36)
[2021-05-10] MEDS: FUROSEMIDE 40 MG TAB PO SCH (09:42)
[2021-05-10] MEDS: ASCORBIC ACID 500 MG TAB PO SCH ×2 (09:43→16:25)
[2021-05-10] MEDS: CALCITRIOL 0.25 MCG CAPSULE PO SCH (09:44)
[2021-05-10] MEDS: DULoxetine HCL 20 MG CAP PO SCH (09:46)
[2021-05-10] MEDS: ZINC SULFATE 220 MG CAPSULE PO SCH (09:46)
[2021-05-10] MEDS: SPIRONOLACTONE 25 MG TAB PO SCH (09:47)
[2021-05-10] MEDS: SENNA 8.6 MG TAB PO SCH (09:47)
[2021-05-10] MEDS: SODIUM CHLORIDE 1 GM TABLET PO SCH (09:48)
[2021-05-10] MEDS: METOPROLOL SUCC 50MG EXT REL TAB PO SCH ×2 (09:49→21:35)
[2021-05-10] MEDS: NYSTATIN SUSP 500,000 U/5 ML UDC PO SCH ×4 (09:50→21:37)
[2021-05-10] MEDS: SUCRALFATE 1 GM/10 ML UDC PO SCH ×4 (09:51→21:37)
[2021-05-10] MEDS: ADVANCED PROBIOTIC 1250 MG CAPSULE PO SCH (10:12)
--- NOTE | 2021-05-10 10:15 | Surgery Progress Note ---
Date of Service May 10, 2021 Assessment & Plan (1) H/O colectomy: Plan: POD 13 right colectomy continue diet as elder on iv zosyn getting 40 mg lasix daily H&H has remained between 8-9 needs ongoing PT/OT seen with Dr. Hall Admission and Anticipated Discharge Date Admission Date: April 29, 2021 Subjective Patient says she is feeling better than yesterday. Tolerating a diet, + bm's. Says she is weak and her knees are bothering her with h/o arthritis. Physical Exam Physical Exam: awake/alert Gastrointestinal (Abdomen): Inspection/Auscultation: + abdominal surgical incision (c/d/i; some lower abdominal ecchymosis) Results & Data ([facility]) Vital Signs (Past 12 Hours) Vital Signs Temp Pulse Pulse Resp BP BP Pulse Ox 05/10/21 07:11 119 H 05/10/21 06:42 36.8 C 117 H 20 131/87 98 05/10/21 03:25 36.3 C L 97 H 20 126/80 97 05/10/21 00:27 99 H 18 100 05/09/21 23:05 36.5 C 98 H 20 135/99 98 PG Care Time/CCT Total # of Minutes Spent Total Time Spent with Patient: Total time spent is greater than 50% in coordination of care (as documented) at patient's floor/unit and/or counseling patient: Coding Level of Care Code 89317 Subseq Hosp Care Lvl 1 Diagnoses H/O colectomy Z90.49
[2021-05-10] MEDS: FERROUS SULFATE 325 MG TAB PO SCH (16:25)
[2021-05-10] MEDS: FAMOTIDINE 10 MG TABLET PO SCH ×2 (16:26→21:34)
--- NOTE | 2021-05-10 16:50 | Hospitalist Progress Note ---
Date of Service May 10, 2021 Assessment & Plan (1) S/P right hemicolectomy: Plan: 85yo F with a PMH of colon adenocarcinoma, paroxysmal atrial fibrillation not on anticoagulation due to fall risk, chronic diastolic heart failure, s/p pacema ker, CKD III, MARTI on 2L NC O2 HS is being managed for the following: #. Adenocarcinoma of colon #. Status post right hemicolectomy : 04/27/[address] Salamanca 05/03 CTAP reviewed: Suggestive of ileus versus gastroenteritis. Diet and pain management by surgery. Continue PPI/incentive spirometer. Clinically, belly pain pain seems to be under control, normal bowel sounds. Moving bowels good. Patient reports reoccurence of indigestion/epigastric burning despite tums now, adding pepcid, consider GI consult if still persists. We will continue to monitor. Continue Tums scheduled along with PPI and pepcid. Nausea medication as needed. PT/OT. #. Acute blood loss anemia Likely secondary to operation on 04/27 Status post 1 unit blood transfusion Hemoglobin has been stable, around 8-9 lately. Continue to monitor daily and as appropriate. #. Gastroenteritis Patient complained of indigestion/epigastric burning/nausea. Likely secondary to reflux disease. Persistent epigastric burn/indigestion, adding pepcid to tums/ppi/maalox/sucralfate. Patient advised to eat small meals at a time. Continue to monitor. Consider GI if still with epi burn. #. Hyponatremia Sodium level went as low as 126, resolved, on sodium tablets twice daily Diet has improved, likely DC sodium tablets #. Tachycardia #. Afib RVR Patient has been tachycardic in 90s - 110s Pt does have PAF, not on anticoagulation due to history of multiple falls, spontaneous thigh hematoma and recent surgery status. Metoprolol recently increased to 200 mg twice daily. C/w digoxin. If heart rate not controlled, consider cardiology consult. #. Rt abdominal wall hematoma Patient has right abdominal wall edema with ecchymosis --> holding heparin--> If Hb stable jd, resume heparin SQ. 04/29 CTAP: 5 cm subcutaneous postoperative hematoma noted in the midline incision, extensive body wall edema along the right lying with associated skin thickening. Small left rectus sheath hematoma measuring 3.8 x 2.2 cm. continue to monitor. Monitor hb daily and as needed. stable today. #. Likely hospital acquired pneumonia pt reporting cough, CTAP revealed likley infectious change in Rt middle lobe c/w zosyn 05/09. #. Chronic medical conditions: Chronic diastolic heart failure, paroxysmal A. fib, VINITA over CKD stage III - resolved, pacemaker status, depression, anxiety, sleep apnea on 2 L NC O2 at bedtime Continue Toprol, dose has been increased to 200 mg twice daily. Heart rate slightly tachy, could be due to acute stress. Continue to monitor over telemetry. Continue with/resume other home meds as and when appropriate DVT Ppx: hold heparin, re-abd ecchymoses and hematoma Code status: FULL Disposition as per ortho Admission and Anticipated Discharge Date Admission Date: April 29, 2021 Subjective Patient seen and examined at bedside as a follow-up of status post right hemicolectomy for adenocarcinoma of the cecum, acute blood loss anemia and gastroenteritis. Patient was lying in bed, on room air, NAD, no new acute events overnight. Patient reports moving bowels okay, eating ok, still reports indigestion/heartburn despite tums, will try adding pepcid. Patient advised to have small volume of meals at a time. Patient denies any nausea or vomiting. Patient reports right-sided belly discomfort/some pain. Pt apparently feels better than yesterday. Denies fever/chills/headache/chest pain/palpitation/sore throat/cough/other review of symptoms. Physical Exam Physical Exam: GENERAL: Alert and oriented x3. NAD, on 2 L. HEENT: No pallor, no icterus. Pupils equal, round and reactive to light. Oral mucosa moist. NECK: No JVD, no neck masses. HEART: S1 and S2 heard. Regular rate and rhythm. No murmur, no gallop. RESPIRATORY SYSTEM: Normal AP diameter. No accessory muscle use. No wheezing, b/b crackles. ABDOMEN: Soft, bowel sounds present, nontender, no distention. Laparoscopic surgical incision-healing well. Right-sided ecchymosis noted with right abdominal wall edema. CENTRAL NERVOUS SYSTEM: No facial droop. Speech is clear. Obeys simple commands. Moves extremities. EXTREMITIES: 2+ BLE edema, no erythema seen. Results & Data Results & Data ([facility]) Vital Signs (Past 12 Hours) Vital Signs Temp Pulse Pulse Resp BP Pulse Ox 05/10/21 11:56 36.5 C 115 H 20 143/87 H 96 05/10/21 07:11 119 H 05/10/21 06:42 36.8 C 117 H 20 131/87 98
[2021-05-10] MEDS ORDERED: FUROSEMIDE INJ 20 MG/2 ML VIAL IV ONE (17:00)
[2021-05-10] MEDS: oxyCODONE HCL IR 5 MG TAB (IMMEDIATE RELEASE) PO PRN ×2 (17:30→21:54)
[2021-05-10] MEDS: ATORVASTATIN 40 MG TAB PO SCH (21:33)
[2021-05-10] MEDS: DOCUSATE SODIUM/SENNA 50/8.6MG TAB PO SCH (21:35)
[2021-05-10] MEDS: LATANOPROST 0.005% OP SOLN 2.5 ML BTL OP SCH (23:38)
[2021-05-11] MEDS: PIPERACILLIN/TAZOBACTAM 4.5 GM in DEXTROSE 5% 100 ML IV SCH ×2 (06:24→13:38)
[2021-05-11] MEDS: DICLOFENAC SOD 1% GEL 100 GM TUBE EXT SCH ×3 (06:25→20:58)
[2021-05-11 07:41] LABS: Hematocrit (blood only) 28.7 % (37-47); Hemoglobin 8.7 g/dL (12.0-16.0)
[2021-05-11] MEDS: ADVANCED PROBIOTIC 1250 MG CAPSULE PO SCH (08:13)
[2021-05-11] MEDS: DULoxetine HCL 20 MG CAP PO SCH (08:13)
[2021-05-11] MEDS: CALCITRIOL 0.25 MCG CAPSULE PO SCH (08:13)
[2021-05-11] MEDS: ZINC SULFATE 220 MG CAPSULE PO SCH (08:14)
[2021-05-11] MEDS: CYANOCOBALAMIN (B-12) 500 MCG TABLET PO SCH (08:14)
[2021-05-11] MEDS: ASCORBIC ACID 500 MG TAB PO SCH ×2 (08:14→12:07)
[2021-05-11] MEDS: FUROSEMIDE 40 MG TAB PO SCH (08:14)
[2021-05-11] MEDS: PANTOprazole 40 MG TAB PO SCH ×2 (08:15→21:00)
[2021-05-11] MEDS: SENNA 8.6 MG TAB PO SCH (08:15)
[2021-05-11] MEDS: SPIRONOLACTONE 25 MG TAB PO SCH (08:15)
[2021-05-11] MEDS: CALCIUM CARBONATE 500 MG CHEWABLE TAB PO SCH ×2 (08:16→21:01)
[2021-05-11] MEDS: FAMOTIDINE 10 MG TABLET PO SCH ×2 (08:16→21:02)
[2021-05-11] MEDS: METOPROLOL SUCC 50MG EXT REL TAB PO SCH ×2 (08:16→20:59)
[2021-05-11 08:17] LABS: BUN Creatinine Ratio 23.1 (10-20); Calcium 9.5 mg/dl (8.5-10.1); Creatinine Clr Calc Pharmacy 43.8 ml/min; Est GFR (African American) 49.9 ml/min; Est GFR (Non-African American) 43.1 ml/min; Magnesium 1.6 mg/dl (1.7-2.4); Phosphorus 4.1 mg/dl (2.5-4.9); Potassium 3.5 mmol/L (3.5-5.1)
[2021-05-11] MEDS: NYSTATIN SUSP 500,000 U/5 ML UDC PO SCH ×4 (08:17→21:00)
[2021-05-11] MEDS: SUCRALFATE 1 GM/10 ML UDC PO SCH ×4 (08:17→21:03)
--- NOTE | 2021-05-11 08:28 | Surgery Progress Note ---
Date of Service May 11, 2021 Assessment & Plan (1) H/O colectomy: Plan: POD 14 right colectomy continue diet as elder on iv zosyn getting 40 mg lasix daily H&H has remained between 8-9 needs ongoing PT/OT We will discuss with case management about rehab placement Admission and Anticipated Discharge Date Admission Date: April 29, 2021 Subjective Postop day 14, doing fairly well today. She is tolerating a diet and having bowel movements. She continues to pass gas. She has had no nausea or vomiting in the past 24 hours. She is complaining of significant weakness and pain in her knees. She is not seen by physical therapy over the weekend. Physical Exam Physical Exam: awake/alert Constitutional: WD/WN, vitals as above no acute distress Neck: trachea midline Respiratory: no respiratory distress and no labored breathing Gastrointestinal (Abdomen): Inspection/Auscultation: + abdominal surgical incision (c/d/i; some lower abdominal ecchymosis) Percussion/Palpation: abdomen soft; abdomen not rigid and abdomen not firm Musculoskeletal: Extremities: no cyanosis and no clubbing Psychiatric: A+Ox3, euthymic affect Results & Data ([facility]) Vital Signs (Past 12 Hours) Vital Signs Temp Pulse Pulse Pulse Resp BP Pulse Ox 05/11/21 07:40 36.6 C 92 H 16 138/88 99 05/11/21 07:36 100 H 05/11/21 04:19 36.5 C 100 H 18 151/98 H 100 05/11/21 00:00 100 H 05/10/21 22:56 36.5 C 89 20 160/87 H 98 05/10/21 22:18 112 H
[2021-05-11] MEDS ORDERED: SODIUM CHLORIDE 1 GM TABLET PO SCH (09:00)
[2021-05-11] MEDS ORDERED: POTASSIUM CHLORIDE CRTAB 20 MEQ TABCR PO STA (09:28)
[2021-05-11] MEDS: ASPIRIN 81 MG ECTAB PO SCH (09:37)
[2021-05-11] MEDS: ALUMINUM/MAGNESIUM/SIMETH (MAALOX MAX) 30 ML UDC PO PRN (10:14)
[2021-05-11] MEDS: MAGNESIUM SULFATE / D5W 1 GM/100 ML BAG IV SCH ×2 (10:15→12:06)
--- NOTE | 2021-05-11 12:01 | Gastrointestinal Consultation ---
Date of Consultation May 11, 2021 Assessment & Plan (1) Heartburn: 85 year old female with history of CKD, afib, anxiety, s/p pacer, anemia s/p colectomy for cecal cancer -- GI asked to evaluate for heartburn, discomfort and reflux with attempted PO intake. EGD from 01/18 reviewed. She is taking PPI twice daily She is taking H2 daily She is taking Carafate QID Can update ABD US, LFTs and lipase given discomfort with PO Would recommend GERD dietary and lifestyle changes, smaller more frequent meals, no caffeine, carbonation, chocolate, spicy or acidic foods. OOB to chair as tolerated. Do not lay down flat for 3 hours post-prandial. Thank you for allowing us to participate in the care of this patient. Please call with any acute changes, questions or concerns. Please see addendum below with additional recommendation from my supervising physician. Supervising Physician Co-Signing Physician Notes About to eat lunch Benign abd exam Recent egd with findings as above Agree with further plan of are as above. History of Present Illness Reason for Consultation: epigastric pain Requesting Physician: Robin Attending Physician: Ashok Salamanca MD History of Present Illness 85 year old femael with history of CKD, afib, anxiety, s/p pacer, anemia s/p colectomy for cecal cancer - GI asked to evaluate for epigastric pain. Pt was seen and evaluated, chart reviewed. She notes at rest she feels well! With any attempted PO intake or water intake she gets severe epigastric burning, radiating up her throat with intermittent nausea/vomiting. No dysphagia. Moving her bowel well. Denies black/bloody stools/emesis. EGD 2020: Normal esophagus. - Normal stomach. Biopsied. - Normal examined duodenum. - Normal examined jejunum Colonoscopy 2020: Fair prep. 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 Four polyps, removed. Diverticulosis. Hemorrhoids Allergies Allergy/AdvReac Type Severity Reaction Status Date / Time alendronate sodium Allergy Intermediate Wheezing, Verified 04/27/21 10:31 shortness of breath. ezetimibe Allergy Intermediate Muscle Verified 04/27/21 10:31 pain. ibandronate sodium Allergy Intermediate trouble Verified 04/27/21 10:31 [From Boniva] swallowing Iodinated Contrast Media Allergy Intermediate Wheezing Verified 04/27/21 10:31 simvastatin Allergy Intermediate Muscle Verified 04/27/21 10:31 pain. Thiazides Allergy Intermediate wheezing Verified 04/27/21 10:31 erythromycin base Allergy Mild Nausea Verified 04/27/21 10:31 amiodarone Allergy shortness Verified 04/27/21 10:31 of breath morphine Allergy Verified 04/27/21 10:31 metoprolol AdvReac must be Verified 04/01/21 16:27 caraco brand Home Medications Medication Instructions Recorded Confirmed Type acetaminophen 500 mg tablet 500 mg PO Q6H PRN 01/13/21 04/27/21 History ascorbic acid (vitamin C) 1,000 mg 1 g PO QAM 01/13/21 04/27/21 History tablet (Vitamin C) aspirin 81 mg tablet,delayed 81 mg PO QAM 01/13/21 04/27/21 History release (Aspirin Low Dose) atorvastatin 40 mg tablet 40 mg PO HS 01/13/21 04/27/21 History calcitriol 1 mcg/mL oral solution 1 mcg PO DAILY 01/13/21 04/27/21 History cyanocobalamin (vitamin B-12) 1,000 mcg PO 3XWK 01/13/21 04/27/21 History 1,000 mcg tablet (Vitamin B-12) denosumab 60 mg/mL subcutaneous 60 mg SUBCUT UD 01/13/21 04/27/21 History syringe (Prolia) duloxetine 20 mg capsule,delayed 20 mg PO QAM 01/13/21 04/27/21 History release furosemide 20 mg tablet 40 mg PO QAM 01/13/21 04/27/21 History latanoprost (PF) 0.005 % eye drops 1 drp OPHTHALMIC (EYE) PM 01/13/21 04/27/21 History lorazepam 0.5 mg tablet 0.5 mg PO DAILY PRN 01/13/21 04/27/21 History omeprazole 20 mg tablet,delayed 20 mg PO QAM 01/13/21 04/27/21 History release sennosides 8.6 mg-docusate sodium 2 tab-cap PO HS 01/13/21 04/27/21 History 50 mg capsule zinc 50 mg tablet 50 mg PO QAM 01/13/21 04/27/21 History ferrous fumarate-vitamin C 132 1 tab PO DAILY@12 12/17/21 02/28/22 History mg-250 mg tablet metoprolol succinate 100 mg 200 mg PO BID #120 tab 02/18/21 04/27/21 Rx tablet,extended release 24 hr spironolactone 25 mg tablet 25 mg PO QAM 04/01/21 04/27/21 History Patient History Medical History Ambulates with cane Anemia Anxiety Cardiac murmur Chronic diastolic heart failure Chronic kidney disease (CKD), stage III (moderate) follows with Dr. Butler Depression Frequent falls history of R iliopsoas hematoma Sep 2019 after a fall GERD (gastroesophageal reflux disease) Glaucoma History of COVID-19 diagnosed 02/2020 @ [facility]--fever, headache, cough, loss of taste/smell--no issues now Hyperparathyroidism for conservative management Labile blood pressure hx of vasovagal syncope Myocardial Infarction (~2005) follows with Poli Zepeda PA-C @ [facility] Osteoarthritis Osteoporosis Pacemaker (~2011) Medtronic Model: A2DR01 04/11/2017 Dual-chamber last check 3 mo ago Paroxysmal atrial fibrillation Not on ac due to fall risk and bleeding hx Sleep apnea 2L N/C at hs Thyroid nodule Surgical History History of arthroscopy of left knee History of bilateral cataract extraction History of cardiac cath 2005 with 1 stent placed @ [place] History of colonoscopy History of dilatation and curettage History of facial surgery metal plate under left eye/left cheek History of parathyroidectomy partial @ [facility] History of partial hysterectomy History of permanent cardiac pacemaker placement medtronic History of tooth extraction all teeth S/P excision of lipoma Status post subtotal parathyroidectomy 2009 R inferior adenoma Family History Other Cancer Diabetes No family history of adverse response to anesthesia Social History Smoking Status: Never smoker Second Hand Exposure: No; Do You Dip or Chew Tobacco: No; Hx Alcohol Use: No Hx Substance Use: No Preferred Language: American Communication Ability: Effective Taping Foreman Required: No Beliefs That Will Affect Care: None Current Living Situation: Alone How many Children do You have: 5 Feels Safe at Home: Yes Safety Concerns: Feels Safe At This Time Assistive Devices: Oxygen - at Night Review of Systems Review of Systems: All systems reviewed & are unremarkable except as noted in HPI & below Physical Exam Constitutional: WD/WN, vitals as above Neck: trachea midline, no thyromegaly Respiratory: normal respiratory effort; no respiratory distress, no labored breathing and no retractions Cardiovascular: Rate/Rhythm: regular rate and + tachycardic Gastrointestinal (Abdomen): normal bowel sounds, soft, nontender, no hepatosplenomegaly Skin: no rashes, warm and dry Results & Data ([facility]) Vital Signs (Past 12 Hours) Vital Signs Temp Pulse Pulse Pulse Resp BP Pulse Ox 05/11/21 11:26 36.5 C 99 H 15 98 05/11/21 07:40 36.6 C 92 H 16 138/88 99 05/11/21 07:36 100 H 05/11/21 04:19 36.5 C 100 H 18 151/98 H 100 05/11/21 00:00 100 H Laboratory Results 05/11/21 05/11/21 05/10/21 Range/Units 06:54 06:54 19:40 Hgb 8.7 L (12.0-16.0) g/dL Hct 28.7 L (37-47) % Sodium 136 (136-145) mmol/L Potassium 3.5 (3.5-5.1) mmol/L Chloride 101 (98-107) mmol/L Carbon Dioxide 27 (21-32) mmol/L Anion Gap 8 (3-11) BUN 27 H (6-23) mg/dl Creatinine 1.17 (0.6-1.2) mg/dl Est Cr Clr Drug Dosing 43.8 ml/min Est GFR ( Amer) 49.9 ml/min Est GFR (Non-Af Amer) 43.1 ml/min BUN/Creatinine Ratio 23.1 H (10-20) Glucose 88 (70-99(Fasting)) mg/dl POC Glucose 110 H (70-99) mg/dl Calcium 9.5 (8.5-10.1) mg/dl Phosphorus 4.1 (2.5-4.9) mg/dl Magnesium 1.6 L (1.7-2.4) mg/dl 03/13/22 Range/Units 16:24 Hgb (12.0-16.0) g/dL Hct (37-47) % Sodium (136-145) mmol/L Potassium (3.5-5.1) mmol/L Chloride (98-107) mmol/L Carbon Dioxide (21-32) mmol/L Anion Gap (3-11) BUN (6-23) mg/dl Creatinine (0.6-1.2) mg/dl Est Cr Clr Drug Dosing ml/min Est GFR ( Amer) ml/min Est GFR (Non-Af Amer) ml/min BUN/Creatinine Ratio (10-20) Glucose (70-99(Fasting)) mg/dl POC Glucose 118 H (70-99) mg/dl Calcium (8.5-10.1) mg/dl Phosphorus (2.5-4.9) mg/dl Magnesium (1.7-2.4) mg/dl
[2021-05-11] MEDS: oxyCODONE HCL IR 5 MG TAB (IMMEDIATE RELEASE) PO PRN (12:03)
[2021-05-11] MEDS: FERROUS SULFATE 325 MG TAB PO SCH (12:08)
[2021-05-11] MEDS: LORazepam 0.5 MG TAB PO PRN (12:39)
[2021-05-11] MEDS: ACETAMINOPHEN 325 MG TAB PO PRN (12:39)
[2021-05-11] MEDS: HEPARIN SOD 5,000 UNIT/0.5 ML VIAL SQ SCH ×3 (13:38→21:30)
[2021-05-11 13:54] LABS: Albumin Level 2.9 gm/dl (3.4-5.0); Bilirubin Direct 0.3 mg/dl (0-0.2); Total Protein 5.1 gm/dl (6.0-8.3)
[2021-05-11] MEDS ORDERED: DIGOXIN 0.125 MG TAB PO SCH (16:00)
--- NOTE | 2021-05-11 17:03 | Hospitalist Progress Note ---
Date of Service May 11, 2021 Assessment & Plan (1) S/P right hemicolectomy: Plan: 85yo F with a PMH of colon adenocarcinoma, paroxysmal atrial fibrillation not on anticoagulation due to fall risk, chronic diastolic heart failure, s/p pacema ker, CKD III, MARTI on 2L NC O2 HS is being managed for the following: #. Adenocarcinoma of colon #. Status post right hemicolectomy : 04/27/[address] Salamanca 05/03 CTAP reviewed: Suggestive of ileus versus gastroenteritis. Diet and pain management by surgery. Continue PPI/incentive spirometer. Clinically, belly pain pain seems to be under control, normal bowel sounds. Moving bowels good. Patient reports reoccurence of indigestion/epigastric burning despite tums now, adding pepcid, consider GI consult if still persists. We will continue to monitor. Continue Tums scheduled along with PPI and pepcid. Nausea medication as needed. PT/OT. #. Acute blood loss anemia Likely secondary to operation on 04/27 Status post 1 unit blood transfusion Hemoglobin has been stable, around 8-9 lately. Continue to monitor daily and as appropriate. #. Gastroenteritis Patient complained of indigestion/epigastric burning/nausea. Likely secondary to reflux disease. Persistent epigastric burn/indigestion, despite pepcid & tums/ppi/maalox/sucralfate (pt denies sucralfate) --> consulting GI Patient advised to eat small meals at a time. Appreciate GI recs, f/u US abd. #. Hyponatremia Sodium level went as low as 126, resolved, on sodium tablets twice daily Diet has improved, DC sodium tablets #. Tachycardia #. Afib RVR Patient has been tachycardic in 90s - 110s Pt does have PAF, not on anticoagulation due to history of multiple falls, spontaneous thigh hematoma and recent surgery status. Metoprolol recently increased to 200 mg twice daily. C/w digoxin. If heart rate not controlled, consider cardiology consult. #. Rt abdominal wall hematoma Patient has right abdominal wall edema with ecchymosis --> holding heparin--> If Hb stable jd, resume heparin SQ. 04/29 CTAP: 5 cm subcutaneous postoperative hematoma noted in the midline incision, extensive body wall edema along the right lying with associated skin thickening. Small left rectus sheath hematoma measuring 3.8 x 2.2 cm. continue to monitor. continue to monitor, stable bruise Monitor hb daily and as needed. stable today. #. Likely hospital acquired pneumonia pt reporting cough, CTAP revealed likley infectious change in Rt middle lobe c/w zosyn 05/09 -->05/11 Augmentin #. Chronic medical conditions: Chronic diastolic heart failure, paroxysmal A. fib, VINITA over CKD stage III - resolved, pacemaker status, depression, anxiety, sleep apnea on 2 L NC O2 at bedtime Continue Toprol, dose has been increased to 200 mg twice daily. Heart rate slightly tachy, could be due to acute stress. Continue to monitor over telemetry. Continue with/resume other home meds as and when appropriate DVT Ppx: heparin Code status: FULL Disposition as per ortho Admission and Anticipated Discharge Date Admission Date: April 29, 2021 Subjective Patient seen and examined at bedside as a follow-up of status post right hemicolectomy for adenocarcinoma of the cecum, acute blood loss anemia and gastroenteritis. Patient was lying in bed, on room air, NAD, no new acute events overnight. Patient reports moving bowels okay, eating ok, still reports indigestion/heartburn despite tums/pepcid/maalox/PPI --> will consult GI. Patient advised to have small volume of meals at a time. Patient denies any nausea or vomiting. Reports no belly pain. Denies SOB. Denies fever/chills/headache/chest pain/palpitation/sore throat/cough/other review of symptoms. Physical Exam Physical Exam: GENERAL: Alert and oriented x3. NAD, on 2 L. HEENT: No pallor, no icterus. Pupils equal, round and reactive to light. Oral mucosa moist. NECK: No JVD, no neck masses. HEART: S1 and S2 heard. Regular rate and rhythm. No murmur, no gallop. RESPIRATORY SYSTEM: Normal AP diameter. No accessory muscle use. No wheezing, b/b crackles. ABDOMEN: Soft, bowel sounds present, nontender, no distention. Laparoscopic surgical incision-healing well. Right-sided ecchymosis noted with right abdominal wall edema. CENTRAL NERVOUS SYSTEM: No facial droop. Speech is clear. Obeys simple commands. Moves extremities. EXTREMITIES: 1+ BLE edema, no erythema seen. Results & Data Results & Data ([facility]) Vital Signs (Past 12 Hours) Vital Signs Temp Pulse Pulse Pulse Resp BP Pulse Ox 05/11/21 16:12 107 H 05/11/21 14:57 36.5 C 105 H 20 134/78 96 05/11/21 14:25 105 H 05/11/21 11:26 36.5 C 99 H 15 98 05/11/21 07:40 36.6 C 92 H 16 138/88 99 05/11/21 07:36 100 H
--- NOTE | 2021-05-11 20:10 | Ultrasound Report ---
ULTRASOUND RIGHT UPPER QUADRANT ABDOMEN CLINICAL HISTORY: Epigastric abdominal pain. COMPARISON STUDY: Abdominal CT dated 05/09/2021 TECHNIQUE: Real-time, grayscale, and color flow sonography of the right upper quadrant of the abdomen was performed. Images are reviewed in the transverse and longitudinal planes. FINDINGS: Liver: The liver is normal in size and heterogeneous in echotexture. There is no intrahepatic biliary ductal dilatation. The main portal vein is patent. Gallbladder: The gallbladder is mildly distended and contains sludge. No shadowing gallstones are mehran ntified. There is no gallbladder wall thickening. A sonographic Treviño's sign is reportedly absent. T he common bile duct measures up to 0.5 cm in diameter. Pancreas: Visualized portions of the pancreatic head and body are normal in appearance. Right kidney: Survey images of the right kidney demonstrate mild cortical atrophy. Echotexture is nor mal. There is no hydronephrosis. Ascites: There is a small amount of perihepatic ascites. Pleural spaces: There is a small right pleural effusion. IMPRESSION: 1. The gallbladder is distended and contains sludge. 2. There are no shadowing gallstones, and no sonographic evidence of acute cholecystitis. 3. Heterogeneous liver. 4. Small volume perihepatic ascites. 5. Small right pleural effusion. ACT 112: Negative or not required by law. Electronically signed by: Oumar Nolasco M.D. 05/11/2021 8:08 PM
[2021-05-11] MEDS: AMOXICILLIN/CLAVULANATE 875 MG TAB PO SCH (20:59)
[2021-05-11] MEDS: DOCUSATE SODIUM/SENNA 50/8.6MG TAB PO SCH (21:01)
[2021-05-11] MEDS: LATANOPROST 0.005% OP SOLN 2.5 ML BTL OP SCH (21:02)
[2021-05-11] MEDS: ATORVASTATIN 40 MG TAB PO SCH (21:02)
[2021-05-12] MEDS: DICLOFENAC SOD 1% GEL 100 GM TUBE EXT SCH ×2 (03:47→12:26)
[2021-05-12] MEDS: HEPARIN SOD 5,000 UNIT/0.5 ML VIAL SQ SCH ×3 (06:35→13:04)
[2021-05-12 07:11] LABS: Hematocrit (blood only) 30.6 % (37-47); Hemoglobin 9.2 g/dL (12.0-16.0)
[2021-05-12 07:59] LABS: Magnesium 1.7 mg/dl (1.7-2.4); Potassium 4.4 mmol/L (3.5-5.1)
--- NOTE | 2021-05-12 08:25 | Gastroenterology Progress Note ---
Date of Service May 12, 2021 Assessment & Plan (1) Heartburn: Plan: 85 year old female with history of CKD, afib, anxiety, s/p pacer, anemia s/p colectomy for cecal cancer -- GI asked to evaluate for heartburn, discomfort and reflux with attempted PO intake. ABD US, lft and lipase reviewed. She notes her hearburn is starting to improve but has had intermittent dysphagia. Given recent evaluation with EGD in December, I find it reasonable to complete a full course of antifungals for suspected tyrese infection. No contraindiaction to discharge to rehab form GI standpoint. Would recommend she continue other GERD therapy per note yesterday and GERD dietary and lifestyle changes, smaller more frequent meals, no caffeine, carbonation, chocolate, spicy or acidic foods. OOB to chair as tolerated. Do not lay down flat for 3 hours post-prandial. Thank you for allowing us to participate in the care of this patient. Please call with any acute changes, questions or concerns. Please see addendum below with additional recommendation from my supervising physician. Will sign off. Admission and Anticipated Discharge Date Admission Date: April 29, 2021 Supervising Physician Co-Signing Physician Notes Eating this am PE- abd soft nt nd Labs reviewed Agree with further plan of care as already delineated. Subjective Pt was seen and evaluated, chart reviewed. ABD US, LFTs and lipase reviewed. She notes she feel slightly better this AM Less reflux and heartburn with breakfast this AM Did have sensation of some food sticking. Review of Systems Review of Systems: All systems reviewed & are unremarkable except as noted in HPI & below Results & Data ([facility]) Vital Signs (Past 12 Hours) Vital Signs Temp Pulse Pulse Resp BP BP Pulse Ox 05/12/21 07:40 36.6 C 109 H 20 145/96 H 156/96 H 92 05/12/21 02:45 36.3 C L 91 H 18 151/79 H 96 05/12/21 00:00 107 H 05/11/21 23:44 36.8 C 97 H 22 136/79 98 Laboratory Results 05/12/21 05/12/21 05/12/21 Range/Units 07:15 06:47 06:47 Hgb 9.2 L (12.0-16.0) g/dL Hct 30.6 L (37-47) % Potassium 4.4 D (3.5-5.1) mmol/L POC Glucose 99 (70-99) mg/dl Magnesium 1.7 (1.7-2.4) mg/dl Total Bilirubin (0.2-1.0) mg/dl Direct Bilirubin (0-0.2) mg/dl AST (13-39) U/L ALT (7-52) U/L Alkaline Phosphatase (34-104) U/L Total Protein (6.0-8.3) gm/dl Albumin (3.4-5.0) gm/dl Lipase (11-82) U/L 05/11/21 05/11/21 05/11/21 Range/Units 20:26 16:32 06:54 Hgb (12.0-16.0) g/dL Hct (37-47) % Potassium (3.5-5.1) mmol/L POC Glucose 100 H 118 H (70-99) mg/dl Magnesium (1.7-2.4) mg/dl Total Bilirubin 1.0 (0.2-1.0) mg/dl Direct Bilirubin 0.3 H (0-0.2) mg/dl AST 10 L (13-39) U/L ALT 9 (7-52) U/L Alkaline Phosphatase 55 (34-104) U/L Total Protein 5.1 L (6.0-8.3) gm/dl Albumin 2.9 L (3.4-5.0) gm/dl Lipase 94 H (11-82) U/L
[2021-05-12] MEDS: ZINC SULFATE 220 MG CAPSULE PO SCH (08:57)
[2021-05-12] MEDS: ASCORBIC ACID 500 MG TAB PO SCH ×2 (08:57→12:28)
[2021-05-12] MEDS: DULoxetine HCL 20 MG CAP PO SCH (08:57)
[2021-05-12] MEDS: FAMOTIDINE 10 MG TABLET PO SCH (08:57)
[2021-05-12] MEDS: SPIRONOLACTONE 25 MG TAB PO SCH (08:57)
[2021-05-12] MEDS: ADVANCED PROBIOTIC 1250 MG CAPSULE PO SCH (08:58)
[2021-05-12] MEDS: CALCITRIOL 0.25 MCG CAPSULE PO SCH (08:58)
[2021-05-12] MEDS: ASPIRIN 81 MG ECTAB PO SCH (08:58)
[2021-05-12] MEDS: CALCIUM CARBONATE 500 MG CHEWABLE TAB PO SCH (08:58)
[2021-05-12] MEDS: FUROSEMIDE 40 MG TAB PO SCH (08:58)
[2021-05-12] MEDS: SENNA 8.6 MG TAB PO SCH (08:59)
[2021-05-12] MEDS: NYSTATIN SUSP 500,000 U/5 ML UDC PO SCH ×2 (08:59→12:28)
[2021-05-12] MEDS: PANTOprazole 40 MG TAB PO SCH (08:59)
[2021-05-12] MEDS: AMOXICILLIN/CLAVULANATE 875 MG TAB PO SCH (08:59)
[2021-05-12] MEDS: METOPROLOL SUCC 50MG EXT REL TAB PO SCH (08:59)
[2021-05-12] MEDS: SUCRALFATE 1 GM/10 ML UDC PO SCH ×2 (09:00→12:28)
[2021-05-12] MEDS: oxyCODONE HCL IR 5 MG TAB (IMMEDIATE RELEASE) PO PRN (09:05)
[2021-05-12] MEDS: FERROUS SULFATE 325 MG TAB PO SCH (12:26)
[2021-05-12] MEDS: ACETAMINOPHEN 325 MG TAB PO PRN (13:21)
--- NOTE | 2021-05-12 15:33 | Hospitalist Progress Note ---
Date of Service May 12, 2021 Assessment & Plan (1) S/P right hemicolectomy: Plan: 85yo F with a PMH of colon adenocarcinoma, paroxysmal atrial fibrillation not on anticoagulation due to fall risk, chronic diastolic heart failure, s/p pacema ker, CKD III, MARTI on 2L NC O2 HS is being managed for the following: #. Adenocarcinoma of colon #. Status post right hemicolectomy : 04/27/[address] Salamanca 05/03 CTAP reviewed: Suggestive of ileus versus gastroenteritis. Diet and pain management by surgery. Continue PPI/incentive spirometer. Clinically, belly pain pain seems to be under control, normal bowel sounds. Moving bowels good. Patient reports reoccurence of indigestion/epigastric burning despite tums now, adding pepcid, consider GI consult if still persists. We will continue to monitor. Continue Tums scheduled along with PPI and pepcid. Nausea medication as needed. PT/OT. #. Acute blood loss anemia Likely secondary to operation on 04/27 Status post 1 unit blood transfusion Hemoglobin has been stable, around 8-9 lately. #. Gastroenteritis Patient complained of indigestion/epigastric burning/nausea. Likely secondary to reflux disease. 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 Pt started on fluconazole 200 mg daily for 14 days, f/u LFT at 1 week and upon completion of antifungal therapy. #. Hyponatremia - resolved #. Tachycardia #. Afib RVR Patient has been tachycardic in 90s - 110s Pt does have PAF, not on anticoagulation due to history of multiple falls, spontaneous thigh hematoma and recent surgery status. Metoprolol recently increased to 200 mg twice daily. C/w home dose digoxin upon discharge. Closely f/u card as OP. #. Rt abdominal wall hematoma Patient has right abdominal wall edema with ecchymosis --> holding heparin--> If Hb stable jd, resume heparin SQ. 04/29 CTAP: 5 cm subcutaneous postoperative hematoma noted in the midline incision, extensive body wall edema along the right lying with associated skin thickening. Small left rectus sheath hematoma measuring 3.8 x 2.2 cm. continue to monitor. continue to monitor, stable bruise Monitor hb daily and as needed. stable today. #. Likely hospital acquired pneumonia pt reporting cough, CTAP revealed likley infectious change in Rt middle lobe c/w zosyn 05/09 -->05/11 Augmentin, complete 5 days of treatment. #. Chronic medical conditions: Chronic diastolic heart failure, paroxysmal A. fib, VINITA over CKD stage III - resolved, pacemaker status, depression, anxiety, sleep apnea on 2 L NC O2 at bedtime Continue Toprol, dose has been increased to 200 mg twice daily. Heart rate slightly tachy, could be due to acute stress. Continue to monitor over telemetry. Continue with/resume other home meds as and when appropriate DVT Ppx: heparin Code status: FULL Disposition as per ortho Admission and Anticipated Discharge Date Admission Date: April 29, 2021 Subjective Patient seen and examined at bedside as a follow-up of status post right hemicolectomy for adenocarcinoma of the cecum, acute blood loss anemia and gastroenteritis. Patient was lying in bed, on room air, NAD, no new acute events overnight. Patient reports moving bowels okay, eating ok, still reports indigestion/heartburn despite tums/pepcid/maalox/PPI. Patient advised to have small volume of meals at a time. Patient denies any nausea or vomiting. Reports no belly pain. Denies SOB. Denies fever/chills/headache/chest pain/palpitation/sore throat/cough/other review of symptoms. Physical Exam Physical Exam: GENERAL: Alert and oriented x3. NAD, on 2 L. HEENT: No pallor, no icterus. Pupils equal, round and reactive to light. Oral mucosa moist. NECK: No JVD, no neck masses. HEART: S1 and S2 heard. Regular rate and rhythm. No murmur, no gallop. RESPIRATORY SYSTEM: Normal AP diameter. No accessory muscle use. No wheezing, no crackles ABDOMEN: Soft, bowel sounds present, nontender, no distention. Laparoscopic surgical incision-healing well. Right-sided ecchymosis noted with right abdominal wall edema. CENTRAL NERVOUS SYSTEM: No facial droop. Speech is clear. Obeys simple commands. Moves extremities. EXTREMITIES: Trace BLE edema, no erythema seen. Results & Data Results & Data ([facility]) Vital Signs (Past 12 Hours) Vital Signs Temp Pulse Pulse Pulse Resp BP BP 05/12/21 11:43 36.6 C 99 H 109 H 20 145/96 H 156/96 H 05/12/21 08:00 103 H 05/12/21 07:40 36.6 C 109 H 20 145/96 H 156/96 H Pulse Ox 05/12/21 11:43 92 05/12/21 08:00 05/12/21 07:40 92
--- NOTE | 2021-05-18 07:15 | Discharge Summary ---
Date of Service May 18, 2021 Admission HPI Per Admitting Provider 85-year-old woman with large cecal adenocarcinoma discovered on colonoscopy. She is now status post cardiac clearance. Principal Diagnosis Right colon cancer Discharge Exam awake/alert Constitutional WD/WN, vitals as above no acute distress Neck trachea midline, no thyromegaly normal visual inspection and trachea midline Respiratory normal respiratory effort; no respiratory distress and no labored breathing Cardiovascular Rate/Rhythm: regular rate and regular rhythm Gastrointestinal (Abdomen) normal bowel sounds, soft, nontender, no hepatosplenomegaly Inspection/Auscultation: abdomen normal to inspection, + abdominal wall ecchymosis (RLQ) and + abdominal surgical incision (c/d/i; some lower abdominal ecchymosis); abdomen not distended Percussion/Palpation: + abdomen tender (Mild diffuse) and abdomen soft; no guarding, abdomen not rigid and abdomen not firm Musculoskeletal Extremities: no cyanosis and no clubbing Skin no rashes, warm and dry no jaundice Psychiatric A+Ox3, euthymic affect Orientation: alert and oriented x 3 Discharge Data Allergies Allergy/AdvReac Type Severity Reaction Status Date / Time alendronate sodium Allergy Intermediate Wheezing, Verified 04/27/21 10:31 shortness of breath. ezetimibe Allergy Intermediate Muscle Verified 04/27/21 10:31 pain. ibandronate sodium Allergy Intermediate trouble Verified 04/27/21 10:31 [From Boniva] swallowing Iodinated Contrast Media Allergy Intermediate Wheezing Verified 04/27/21 10:31 simvastatin Allergy Intermediate Muscle Verified 04/27/21 10:31 pain. Thiazides Allergy Intermediate wheezing Verified 04/27/21 10:31 erythromycin base Allergy Mild Nausea Verified 04/27/21 10:31 amiodarone Allergy shortness Verified 04/27/21 10:31 of breath morphine Allergy Verified 04/27/21 10:31 metoprolol AdvReac must be Verified 04/01/21 16:27 caraco brand Consultations 04/28/21 07:39 Consult Hospitalist Routine 04/29/21 03:31 Consult Nephrology Routine 05/11/21 11:09 Consult Gastroenterology Routine Procedures Performed Operation Date: 04/27/21 11:35 Actual Procedures p Right Laparoscopic Hemicolectomy(Right) - Asohk Salamanca MD Ordered Studies 05/03/21 22:03 CT abd pelvis wo con Urgent 05/09/21 11:37 CT abd pelvis wo con Urgent 05/11/21 12:58 US abdomen limited Routine Hospital Course (1) S/P right hemicolectomy: 85-year-old woman admitted from home to the OR for laparoscopic right hemicolectomy for right colon cancer. The details of the operation are dictated in a separate operative note. Postoperatively she was transferred in stable condition to the PACU and subsequently to a monitored telemetry bed on the floor. DVT prophylaxis with SCD boots and Lovenox. Pulmonary toilet with incentive spirometry and attempt in early ambulation. Pain control with IV and subsequently p.o. pain medications. She had a slow return of bowel function and was quite weak following the surgery. PT and OT worked with her. By the day of discharge she was tolerating regular diet, not requiring any IV pain medications. She was discharged to a subacute nursing facility. She will follow-up with us in 1 week. Total Time Total Time Spent Total Time Spent (In Minutes): 30 minutes Discharge Plan Discharge Items Patient Disposition: Transfer Inpatient Rehab Fac Reason For Visit: STATUS POST RIGHT HEMICOLECTOMY Discharge Diagnosis: Right colon cancer s/p right hemicolectomy Condition on Discharge: Good Activity: Per Instructions section Non-emergency contact: Primary Care Provider and Surgeon Call non-emergency contact if: you have any medication questions, your pain is not controlled, your pain is worsening, your pain is concerning for you, you have a fever, your temperature is above 101, your wound has increased redness, your wound has increased drainage and your wound pain has increased Follow-up/Referrals: Josie Butler MD, PhD [Physician] - (Date & Time 06/17/2021 12:00 PM Provider Josie Butler MD Department Nephrology [facility] ) Poli Zepeda [Physician Cager Operator] - (Date & Time 05/28/2021 3:00 PM Provider Poli Zepeda PA-C Department Cardiology [facility] ) Sam Hawkins MD [Surgeon] - (Date & Time 05/22/2021 9:45 AM Provider Sam Hawkins MD Department Hematology/Oncology [facility] ) Erlinda Meneses MD [Primary Care Provider] - Diet: Low Fiber Addtl Attending Provider Instructions: Post-Surgical ~Discharge Instructions Activity Recommendations: - lifting limitation: (10 pounds for at least 6 weeks), - exercise/sex/sports limit: (nonstrenuous for 2 weeks and until cleared by surgeon), - driving or machine use limit: (none for 1 week or until pain free), - Shower/bathe limit: (may shower) Diet: - Low fiber diet for 2 weeks SPECIAL CARE INSTRUCTIONS: - May shower. Let water run over area and pat dry. DO not submerge incisions underwater for 2 weeks. - Surgical glue will fall off on its own. Do not pick at it as this can cause infection - Call the surgeon's office with any questions or concerns - - (ex. temperature higher than 101 degrees F, excessive bleeding or pain). MEDICATIONS: - Resume previous medications unless instructed otherwise by your surgeon. - May take extra strength Tylenol as needed for pain - Percocet 1 every 4 hours, as needed for moderate to severe pain - AVOID NSAIDS (Ibuprofen, aleve, Motrin) as you have a hematoma of the right lower abdomen. FOLLOW UP VISIT: - If not already scheduled, please call the office to schedule a two week follow-up appointment. Office number Further Instructions: 1. Follow-up with your PCP in a week time, closely follow-up with your cardiology for your ongoing treatment of A. fib RVR, follow-up with your GI doctor for ongoing epigastric burning. 2. While inpatient, GI evaluated you and recommended empiric treatment for possible esophageal candidiasis, you have been started on fluconazole daily for 14 days as discussed at bedside, get your LFT in 1 week and upon completion of the therapy. Closely follow-up with your PCP with the results of your LFT. 3. To avoid GERD symptoms, continue to follow GERD precautions which are as follows: GERD dietary and lifestyle changes, smaller more frequent meals, no caffeine, carbonation, chocolate, spicy or acidic foods. OOB to chair as tolerated. Do not lay down flat for 3 hours post-prandial. Pending Studies at Discharge: No Stand-Alone Forms: My [employer] Skilled Items Patient informed of condition?: Yes DNR: No Discharge Level of Care: Acute rehab Communicable Disease: No Discharge Prognosis: Improving Lines: None Urinary Catheter: No Medications and DC Order Prescriptions: New pantoprazole [Protonix] 40 mg tablet,delayed release (DR/EC) 40 mg PO BID Qty: 60 RF: 0 sucralfate 1 gram tablet 1 g PO Q6H 28 Days Qty: 112 RF: 0 digoxin 125 mcg (0.125 mg) tablet 125 mcg PO .complex Qty: 30 RF: 0 diclofenac sodium 1 % gel 4 g topical QID Qty: 100 RF: 0 Lactobacillus acidoph-L. bifid 1 billion cell wafer 1 tab PO DAILY Qty: 10 RF: 0 fluconazole 200 mg tablet 200 mg PO DAILY 14 Days Qty: 14 RF: 0 calcium carbonate [Tums] 200 mg calcium (500 mg) tablet,chewable 200 mg PO BID Qty: 60 RF: 0 famotidine 20 mg tablet 20 mg PO BID Qty: 60 RF: 0 Continued atorvastatin 40 mg Tablet 40 mg PO HS RF: 0 cyanocobalamin (vitamin B-12) [Vitamin B-12] 1,000 mcg Tablet 1,000 mcg PO 3XWK RF: 0 aspirin [Aspirin Low Dose] 81 mg Tablet,Delayed Release (Dr/Ec) 81 mg PO QAM RF: 0 acetaminophen 500 mg Tablet 500 mg PO Q6H PRN (Reason: Pain) RF: 0 lorazepam 0.5 mg Tablet 0.5 mg PO DAILY PRN (Reason: Anxiety) RF: 0 calcitriol 1 mcg/mL Solution 1 mcg PO DAILY RF: 0 Prolia 60 mg/mL Syringe 60 mg SUBCUT UD RF: 0 sennosides-docusate sodium 8.6-50 mg Capsule 2 tab-cap PO HS RF: 0 furosemide 20 mg Tablet 40 mg PO QAM RF: 0 duloxetine 20 mg Capsule,Delayed Release(Dr/Ec) 20 mg PO QAM RF: 0 latanoprost (PF) 0.005 % Drops 1 drp OPHTHALMIC (EYE) PM RF: 0 ascorbic acid (vitamin C) [Vitamin C] 1,000 mg Tablet 1 g PO QAM RF: 0 zinc 50 mg Tablet 50 mg PO QAM RF: 0 ferrous fumarate-vitamin C 132-250 mg Tablet 1 tab PO DAILY@12 RF: 0 metoprolol succinate 100 mg tablet extended release 24 hr 200 mg PO BID Qty: 120 RF: 0 spironolactone 25 mg tablet 25 mg PO QAM RF: 0 Discontinued omeprazole 20 mg Tablet,Delayed Release (Dr/Ec) 20 mg PO QAM RF: 0 Discharge Orders: Discharge Order (Routine); Ordered 05/12/21 Ordered By: Ashok Taveras/Other Patient Handouts: Low-Fiber Diet Admission Data Admit Date/Time: 04/29/21 10:55 Attending Provider: Ashok Salamanca Admit Provider: Ashok Salamanca Primary Care Provider: Erlinda Meneses Other Providers: Kalie Luciano ; Rafa Haider [facility] ; [facility] ; Brian Kelly ; Mandi Christie Other Interventions: Discharge Summary Assessment (RN) Last Done: 05/12/21 11:43
== END 2021-05-12 14:22 | DRG 329 ==
LOC: PACUINP 10:03 → ASU 10:03 → 2N 16:16

== ENCOUNTER 2021-07-26 18:14 | Inpatient (IN) ==
[2021-07-26] MEDS ORDERED: SODIUM CHLORIDE 0.9% 1000ML 500 ML IV ONE (19:16)
--- NOTE | 2021-07-26 19:24 | XRay Report ---
SINGLE VIEW CHEST CLINICAL HISTORY: Atypical chest pain. FINDINGS: An AP, portable, upright chest radiograph is compared to study dated 05/21/2021 and correlat ed with chest CT dated 02/13/2021. The examination is degraded by portable technique and patient rota tion. A 2-lead cardiac pacemaker is unchanged in position. The heart is enlarged noting atherosclerot ic calcification of the thoracic aorta. The pulmonary vasculature is noncongested. Chronic interstiti al thickening is similar to previous. Atelectasis is noted at the left lung base. No airspace consoli dation or large pleural effusion is identified. No pneumothorax is seen. The skeletal structures are osteopenic. The bony thorax is grossly intact. Degenerative change is seen in the shoulders. IMPRESSION: 1. Cardiomegaly and cardiac pacemaker without radiographic evidence of congestive failure. 2. No airspace consolidation or large pleural effusion is identified. ACT 112: Negative or not required by law. Electronically signed by: Oumar Nolasco M.D. 07/26/2021 7:22 PM
[2021-07-26 19:29] LABS: Basophils # (auto) 0.02 K/uL (0-0.2); Basophils % (auto) 0.3 %; Eosinophils # (auto) 0.13 K/uL (0-0.5); Eosinophils % (auto) 1.9 %; Hematocrit (blood only) 34.5 % (37-47); Hemoglobin 10.4 g/dL (12.0-16.0); Immature Granulocytes # (auto) 0.08 K/uL (0.00-0.02); Immature Granulocytes % (auto) 1.1 %; Lymphocytes # (auto) 1.81 K/uL (1.2-3.4); Lymphocytes % (auto) 25.9 %; Mean Corpuscular Hemoglobin 27.8 pg (25-34); Mean Corpuscular Hgb Conc 30.1 g/dL (32-36); Mean Corpuscular Volume 92.2 fL (80-100); Mean Platelet Volume 9.1 fL (7.4-10.4); Monocytes # (auto) 0.82 K/uL (0.11-0.59); Monocytes % (auto) 11.7 %; Neutrophils # (auto) 4.14 K/uL (1.4-6.5); Neutrophils % (auto) 59.1 %; Platelet Count 252 K/uL (130-400); RDW Coefficient of Variation 16.3 % (11.5-14.5); RDW Standard Deviation 55.4 fL (36.4-46.3); Red Blood Count 3.74 M/uL (4.2-5.4)
[2021-07-26 19:55] LABS: Albumin Globulin Ratio 1.6 (0.9-2); Albumin Level 3.8 gm/dl (3.4-5.0); BUN Creatinine Ratio 18.1 (10-20); Bilirubin,Total 0.6 mg/dl (0.2-1.0); Calcium 9.7 mg/dl (8.5-10.1); Creatinine Clr Calc Pharmacy 40.4 ml/min; Est GFR (African American) 50.1 ml/min; Est GFR (Non-African American) 43.2 ml/min; Globulin 2.4 gm/dl (2.5-4.0); Magnesium 1.6 mg/dl (1.7-2.4); Total Protein 6.2 gm/dl (6.0-8.3); Troponin I High Sensitivity 48.7 pg/ml (0-14)
--- NOTE | 2021-07-26 19:55 | Emergency Department Note ---
Impression & Plan Precordial chest pain, Hypertension, Palpitations, Elevated troponin ED Provider Note NAME: BETH BRIGHT AGE: 86 SEX: F : 1935 ARRIVES VIA: Ambulance INFORMANT: [Patient] ED PROVIDER(S): [Oumar Perez MD] CHIEF COMPLAINT: Hypertension, palpitations HISTORY OF PRESENT ILLNESS: The patient is an 86-year-old female presents to the ED with a sensation of fluttering in her chest and some shortness of breath with some mild heaviness across her chest today. The symptoms came on at rest. She was nauseated a bit but that got better after eating. No sweating. She had no pain radiation. The pain was mild in severity. The patient thought this could be her a fib. The patient was given aspirin prior to arrival, 2 sublingual nitroglycerin, she is currently resting comfortably. The patient has history of A. fib and pacemaker placement. She has had colon c ancer. She is on Coumadin for A. fib as well as a DVT/PE. REVIEW OF SYSTEMS: See HPI for pertinent positives and negatives. A total of ten systems were reviewed and were otherwise negative. PMHx/PSHx: See Below SOCIAL HISTORY: See Below. PHYSICAL EXAM: GENERAL: Patient is in no acute distress. HEENT: No acute trauma, normocephalic atraumatic, mucous membranes moist, no nasal congestion, no scleral icterus. NECK: No stridor, no adenopathy, no meningismus, trachea is midline. LUNGS: Clear to auscultation bilaterally, no wheeze, no rhonchi, breath sounds equal. HEART: 3/6 systolic murmur, irregular rhythm, normal rate. ABDOMEN: Soft, nontender, bowel sounds positive, no peritonitis. EXTREMITIES: No cyanosis, bilateral pedal edema worse on the right, full range of motion of all the joints without pain or difficulty, no signs for acute trauma. NEUROLOGIC: Oriented x 3, no acute motor or sensory deficits, no focal weakness. SKIN: No rash, no jaundice, no diaphoresis. DIFFERENTIAL DIAGNOSIS: Cardiac ischemia, aortic dissection, pulmonary embolism, pneumothorax, pneumonia, pericarditis, myocarditis, esophageal rupture, GERD, cholecystitis, pancreatitis, musculoskeletal, as well as other pathologies. EMERGENCY DEPARTMENT COURSE/PROCEDURES: ECG: Indication was chest pain. The ECG shows a ventricular pacemaker with underlying atrial fibrillation. The rate is 77. The non-paced beats do show some T wave inversions. No ST elevation. The QTC is 402. Compared to an ECG from 21 May 2021, I see no significant change. Continuous Cardiac Monitoring: An order was placed for continuous cardiac monitoring. The monitor shows a rate of 73 with a ventricular pacemaker. MEDICAL DECISION MAKING: There is no leukocytosis. The patient is anemic but this appears baseline looking back at previous testing. There is a normal platelet count. No renal failure, magnesium was somewhat low at 1.6. There was some troponin elevation consistent with potential mismatch versus cardiac strain. No evidence for pancreatitis. The patient appeared to be in a euthyroid state. Urinalysis did not show infection. Digoxin level was therapeutic. Chest film showed cardiomeg brian, no CHF. ECG showed a ventricular pacemaker with underlying atrial fibrillation. No obvious ischemic change. On exam, the patient seemed comfortable. She was hypertensive. Patient took her normal oral metoprolol while here in the ED. She remained hypertensive. She was eventually given IV hydralazine 10 mg. Because of the lower magnesium value, she received some oral and IV magnesium. I spoke with Dr. Sanches of cardiology. Patient's has had a complicated recent history. No reason currently for emergent cardiac intervention. I spoke with the patient, she was very uncomfortable with discharge home. She was very concerned about her blood pressure. She used to be on different medications for blood pressure, she thinks she is undermedicated now. The patient will be hospitalized for blood pressure control. Her troponin can be further trended. I did speak with case management, the on-call hospitalist was consulted. Past Med/Surg History Medical History Abdominal wall hematoma Abnormal nuclear stress test Normal cardic catheterization in Mar 2020 Acute on chronic renal failure Allergic rhinitis Allergy to iodinated contrast Ambulates with cane Anemia Anemia of chronic disease Anxiety Basal cell carcinoma Forehead C. difficile diarrhea CAD (coronary artery disease) Cardiac murmur Chronic anticoagulation Chronic diastolic heart failure Chronic kidney disease (CKD), stage III (moderate) follows with Dr. Butler Closed fracture of facial bone Colon adenocarcinoma Diagnosed Dec 2020 Deep vein thrombosis (DVT) of right lower extremity Degenerative disc disease, lumbar Depression Dyslipidemia Electrolyte and fluid disorder Frequent falls history of R iliopsoas hematoma Sep 2019 after a fall GERD (gastroesophageal reflux disease) Glaucoma History of COVID-19 diagnosed 02/2020 @ [facility]--fever, headache, cough, loss of taste/smell--no issues now Hyperparathyroidism for conservative management Labile blood pressure hx of vasovagal syncope Mitral valve disease Myocardial Infarction (~2005) follows with Poli Zepeda PA-C @ [facility] Osteoarthritis Osteoporosis Pacemaker (~2011) Medtronic Model: A2DR01 04/11/2017 Dual-chamber last check 3 mo ago Paroxysmal atrial fibrillation PAT (paroxysmal atrial tachycardia) Pericarditis Pulmonary emboli Sleep apnea 2L N/C at hs Thyroid nodule Venous insufficiency Weakness Surgical History (Updated 06/18/21 @ 10:41 by Elva Blackburn, LISET) H/O colectomy H/O vein stripping Left leg History of arthroscopy of left knee History of bilateral cataract extraction History of cardiac cath 2005 with 1 stent placed @ [place] History of colonoscopy History of dilatation and curettage History of esophagogastroduodenoscopy (EGD) History of facial surgery metal plate under left eye/left cheek History of parathyroidectomy partial @ [facility] History of partial hysterectomy History of permanent cardiac pacemaker placement medtronic History of tooth extraction all teeth S/P excision of lipoma S/P right hemicolectomy Status post subtotal parathyroidectomy 2008 R inferior adenoma Family History (Updated 06/18/21 @ 10:29 by Elva Blackburn, RN) Mother , 66yo Lymphoma Father Medical history unknown Brother Accident Brother Lung cancer Smoker Diabetes Hypertension Sister Heart disease Heart surgery Sister No problems noted. Sister Endometrial cancer Thyroid disease Sister Overdose Son COPD (chronic obstructive pulmonary disease) Diabetes Myocardial infarction Hypertension Son No problems noted. Son Throat cancer Hypertension Daughter Atrial fibrillation Daughter No problems noted. 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 ezetimibe Allergy Intermediate Muscle Verified 07/26/21 19:46 pain. ibandronate sodium Allergy Intermediate trouble Verified 07/26/21 19:46 [From Maria Fernanda] swallowing Iodinated Contrast Media Allergy Intermediate Wheezing Verified 07/26/21 19:46 red dye Allergy Intermediate Hives Verified 07/26/21 19:46 simvastatin Allergy Intermediate Muscle Verified 07/26/21 19:46 pain. Thiazides Allergy Intermediate wheezing Verified 07/26/21 19:46 erythromycin base Allergy Mild Nausea Verified 07/26/21 19:46 amiodarone Allergy shortness Verified 07/26/21 19:46 of breath morphine Allergy Unknown Verified 07/26/21 19:46 metoprolol AdvReac must be Verified 06/18/21 09:04 caraco brand Home Meds Home Medications Medication Instructions Recorded Confirmed ascorbic acid (vitamin C) 1,000 mg 1 g PO QAM 01/13/21 07/26/21 tablet (Vitamin C) atorvastatin 40 mg tablet 40 mg PO HS 01/13/21 07/26/21 cyanocobalamin (vitamin B-12) 1,000 mcg PO 3XWK 01/13/21 07/26/21 1,000 mcg tablet (Vitamin B-12) duloxetine 20 mg capsule,delayed 20 mg PO QAM 01/13/21 07/26/21 release latanoprost (PF) 0.005 % eye drops 1 drp OPB HS 01/13/21 07/26/21 aspirin 81 mg chewable tablet 81 mg PO DAILY 05/21/21 07/26/21 (Aspirin Childrens) furosemide 40 mg tablet 40 mg PO QAM 05/21/21 07/26/21 lorazepam 0.5 mg tablet 0.5 mg PO TID PRN 05/21/21 07/26/21 Oxygen Home 06/18/21 07/26/21 acetaminophen 500 mg tablet 500 mg PO QID PRN 06/18/21 07/26/21 (Tylenol Extra Strength) denosumab 60 mg/mL subcutaneous 60 mg SUBCUT ONCE ml 06/18/21 07/26/21 syringe (Prolia) digoxin 125 mcg (0.125 mg) tablet 125 mcg PO 5XWK tab 06/18/21 07/26/21 sucralfate 1 gram tablet (Carafate) 1 g PO BID tab 06/18/21 07/26/21 aluminum-magnesium hydroxide 200 30 ml PO TID PRN 07/26/21 07/26/21 mg-200 mg/5 mL oral suspension metoprolol succinate 100 mg 200 mg PO BID 07/26/21 07/26/21 tablet,extended release 24 hr omeprazole 40 mg capsule,delayed 40 mg PO DAILY 07/26/21 07/26/21 release sennosides 8.6 mg-docusate sodium 2 tab PO HS 07/26/21 07/26/21 50 mg tablet (Senexon-S) warfarin 1 mg tablet 2 mg PO MOWEFR 07/26/21 07/26/21 Previous Rx's Medication Instructions Recorded warfarin 1 mg tablet 1 mg PO DIRECTED #30 tab 06/02/21 Results & Data (ED) Vital Signs Vital Signs - 24 hr 07/26/21 18:23 07/26/21 18:30 07/26/21 19:01 Temperature 37.0 C Temperature Source Oral Pulse Rate 77 77 73 Pulse Rate [Apical] Pulse Rate from SpO2 Sensor 76 72 Pulse Rhythm Irregular Pulse Strength Normal Respiratory Rate 18 18 17 Respiratory Effort / Characteristics Non-Labored Respiratory Depth Normal Respiratory Pattern Regular Blood Pressure 169/96 H 178/99 H Blood Pressure [Right Arm] Blood Pressure Mean 120 125 Blood Pressure Mean [Right Arm] Blood Pressure Position Lying Blood Pressure Position [Right Arm] Pulse Oximetry 95 95 97 Oxygen Delivery Method Room Air Sepsis Recent Fever Within 48 Hours No Sepsis New/Unexplained Change in Mental Status No Sepsis Action Taken by Nursing No Action Required 07/26/21 19:30 07/26/21 20:00 07/26/21 20:30 Temperature Temperature Source Pulse Rate 77 85 83 Pulse Rate [Apical] Pulse Rate from SpO2 Sensor 75 84 83 Pulse Rhythm Pulse Strength Respiratory Rate 24 18 17 Respiratory Effort / Characteristics Respiratory Depth Respiratory Pattern Blood Pressure 187/109 H Blood Pressure [Right Arm] Blood Pressure Mean 135 Blood Pressure Mean [Right Arm] Blood Pressure Position Blood Pressure Position [Right Arm] Pulse Oximetry 95 95 92 Oxygen Delivery Method Sepsis Recent Fever Within 48 Hours Sepsis New/Unexplained Change in Mental Status Sepsis Action Taken by Nursing 07/26/21 21:00 07/26/21 21:01 07/26/21 22:00 Temperature Temperature Source Pulse Rate 83 84 Pulse Rate [Apical] 79 Pulse Rate from SpO2 Sensor 80 83 Pulse Rhythm Pulse Strength Respiratory Rate 15 19 Respiratory Effort / Characteristics Respiratory Depth Respiratory Pattern Blood Pressure 189/96 H 160/103 H Blood Pressure [Right Arm] 189/96 H Blood Pressure Mean 127 122 Blood Pressure Mean [Right Arm] 127 Blood Pressure Position Blood Pressure Position [Right Arm] Semi-fowlers Pulse Oximetry 95 96 Oxygen Delivery Method Sepsis Recent Fever Within 48 Hours Sepsis New/Unexplained Change in Mental Status Sepsis Action Taken by Nursing 07/26/21 22:55 07/26/21 23:00 07/26/21 23:28 Temperature Temperature Source Pulse Rate 68 76 84 Pulse Rate [Apical] Pulse Rate from SpO2 Sensor 74 74 84 Pulse Rhythm Pulse Strength Respiratory Rate 17 27 H 17 Respiratory Effort / Characteristics Respiratory Depth Respiratory Pattern Blood Pressure 186/101 H 183/115 H 184/93 H Blood Pressure [Right Arm] Blood Pressure Mean 129 137 123 Blood Pressure Mean [Right Arm] Blood Pressure Position Blood Pressure Position [Right Arm] Pulse Oximetry 96 96 97 Oxygen Delivery Method Sepsis Recent Fever Within 48 Hours Sepsis New/Unexplained Change in Mental Status Sepsis Action Taken by [facility] Medications Current Medication List: was personally reviewed by me Laboratory Data Attestation: I reviewed the patient's lab results. Result diagrams: 07/26/21 19:06 07/26/21 20:30 Lab Results 07/26/21 07/26/21 07/26/21 Range/Units 19:06 19:06 19:06 WBC 7.00 (4.8-10.8) K/uL RBC 3.74 L (4.2-5.4) M/uL Hgb 10.4 L (12.0-16.0) g/dL Hct 34.5 L (37-47) % MCV 92.2 (80-100) fL MCH 27.8 (25-34) pg MCHC 30.1 L (32-36) g/dL RDW Std Deviation 55.4 H (36.4-46.3) fL RDW Coeff of Nicholas 16.3 H (11.5-14.5) % Plt Count 252 (130-400) K/uL MPV 9.1 (7.4-10.4) fL Immature Gran % (Auto) 1.1 % Neut % (Auto) 59.1 % Lymph % (Auto) 25.9 % [place] % (Auto) 11.7 % Eos % (Auto) 1.9 % Baso % (Auto) 0.3 % Neut # (Auto) 4.14 (1.4-6.5) K/uL Lymph # (Auto) 1.81 (1.2-3.4) K/uL [place] # (Auto) 0.82 H (0.11-0.59) K/uL Eos # (Auto) 0.13 (0-0.5) K/uL Baso # (Auto) 0.02 (0-0.2) K/uL Immature Gran # (Auto) 0.08 H (0.00-0.02) K/uL Sodium 140 (136-145) mmol/L Potassium (3.5-5.1) mmol/L Chloride 107 (98-107) mmol/L Carbon Dioxide 26 (21-32) mmol/L Anion Gap 7 (3-11) BUN 21 (6-23) mg/dl Creatinine 1.16 (0.6-1.2) mg/dl Est Cr Clr Drug Dosing 40.4 ml/min Est GFR ( Amer) 50.1 ml/min Est GFR (Non-Af Amer) 43.2 ml/min BUN/Creatinine Ratio 18.1 (10-20) Glucose 95 (70-99(Fasting)) mg/dl Calcium 9.7 (8.5-10.1) mg/dl Magnesium 1.6 L (1.7-2.4) mg/dl Total Bilirubin 0.6 (0.2-1.0) mg/dl AST (13-39) U/L ALT 16 (7-52) U/L Alkaline Phosphatase 45 (34-104) U/L Troponin I High Sens 48.7 H (0-14) pg/ml Total Protein 6.2 (6.0-8.3) gm/dl Albumin 3.8 (3.4-5.0) gm/dl Globulin 2.4 L (2.5-4.0) gm/dl Albumin/Globulin Ratio 1.6 (0.9-2) Lipase 23 (11-82) U/L TSH 1.508 (0.300-4.500) uIu/ml Urine Color Urine Appearance (Clear) Urine pH (4.5-7.5) Ur Specific [place] (1.000-1.030) Urine Protein (Negative) Urine Glucose (UA) (Negative) Urine Ketones (Negative) Urine Blood (Negative) Urine Nitrite (Negative) Urine Bilirubin (Negative) Urine Urobilinogen (Negative) Ur Leukocyte Esterase (Negative) Urine WBC (Auto) (0-5) /hpf Urine RBC (Auto) (0-4) /hpf U Hyaline Cast (Auto) (0-5) /lpf U Epithel Cells (Auto) (0-5) /lpf Urine Bacteria (Auto) (Negative) Digoxin (0.8-2.0) ng/ml 07/26/21 07/26/21 07/26/21 Range/Units 19:06 19:46 20:30 WBC (4.8-10.8) K/uL RBC (4.2-5.4) M/uL Hgb (12.0-16.0) g/dL Hct (37-47) % MCV (80-100) fL MCH (25-34) pg MCHC (32-36) g/dL RDW Std Deviation (36.4-46.3) fL RDW Coeff of Nicholas (11.5-14.5) % Plt Count (130-400) K/uL MPV (7.4-10.4) fL Immature Gran % (Auto) % Neut % (Auto) % Lymph % (Auto) % [place] % (Auto) % Eos % (Auto) % Baso % (Auto) % Neut # (Auto) (1.4-6.5) K/uL Lymph # (Auto) (1.2-3.4) K/uL [place] # (Auto) (0.11-0.59) K/uL Eos # (Auto) (0-0.5) K/uL Baso # (Auto) (0-0.2) K/uL Immature Gran # (Auto) (0.00-0.02) K/uL Sodium (136-145) mmol/L Potassium 3.7 (3.5-5.1) mmol/L Chloride (98-107) mmol/L Carbon Dioxide (21-32) mmol/L Anion Gap (3-11) BUN (6-23) mg/dl Creatinine (0.6-1.2) mg/dl Est Cr Clr Drug Dosing ml/min Est GFR ( Amer) ml/min Est GFR (Non-Af Amer) ml/min BUN/Creatinine Ratio (10-20) Glucose (70-99(Fasting)) mg/dl Calcium (8.5-10.1) mg/dl Magnesium (1.7-2.4) mg/dl Total Bilirubin (0.2-1.0) mg/dl AST 13 (13-39) U/L ALT (7-52) U/L Alkaline Phosphatase (34-104) U/L Troponin I High Sens (0-14) pg/ml Total Protein (6.0-8.3) gm/dl Albumin (3.4-5.0) gm/dl Globulin (2.5-4.0) gm/dl Albumin/Globulin Ratio (0.9-2) Lipase (11-82) U/L TSH (0.300-4.500) uIu/ml Urine Color Yellow Urine Appearance Clear (Clear) Urine pH 5.5 (4.5-7.5) Ur Specific [place] 1.023 (1.000-1.030) Urine Protein 1+ H (Negative) Urine Glucose (UA) Negative (Negative) Urine Ketones Negative (Negative) Urine Blood Negative (Negative) Urine Nitrite Negative (Negative) Urine Bilirubin Negative (Negative) Urine Urobilinogen Negative (Negative) Ur Leukocyte Esterase Trace H (Negative) Urine WBC (Auto) 5-10 H (0-5) /hpf Urine RBC (Auto) 5-10 H (0-4) /hpf U Hyaline Cast (Auto) 1-5 (0-5) /lpf U Epithel Cells (Auto) 10-20 H (0-5) /lpf Urine Bacteria (Auto) Negative (Negative) Digoxin 0.9 (0.8-2.0) ng/ml 07/26/21 Range/Units 21:34 WBC (4.8-10.8) K/uL RBC (4.2-5.4) M/uL Hgb (12.0-16.0) g/dL Hct (37-47) % MCV (80-100) fL MCH (25-34) pg MCHC (32-36) g/dL RDW Std Deviation (36.4-46.3) fL RDW Coeff of Nicholas (11.5-14.5) % Plt Count (130-400) K/uL MPV (7.4-10.4) fL Immature Gran % (Auto) % Neut % (Auto) % Lymph % (Auto) % [place] % (Auto) % Eos % (Auto) % Baso % (Auto) % Neut # (Auto) (1.4-6.5) K/uL Lymph # (Auto) (1.2-3.4) K/uL [place] # (Auto) (0.11-0.59) K/uL Eos # (Auto) (0-0.5) K/uL Baso # (Auto) (0-0.2) K/uL Immature Gran # (Auto) (0.00-0.02) K/uL Sodium (136-145) mmol/L Potassium (3.5-5.1) mmol/L Chloride (98-107) mmol/L Carbon Dioxide (21-32) mmol/L Anion Gap (3-11) BUN (6-23) mg/dl Creatinine (0.6-1.2) mg/dl Est Cr Clr Drug Dosing ml/min Est GFR ( Amer) ml/min Est GFR (Non-Af Amer) ml/min BUN/Creatinine Ratio (10-20) Glucose (70-99(Fasting)) mg/dl Calcium (8.5-10.1) mg/dl Magnesium (1.7-2.4) mg/dl Total Bilirubin (0.2-1.0) mg/dl AST (13-39) U/L ALT (7-52) U/L Alkaline Phosphatase (34-104) U/L Troponin I High Sens 51.6 H* (0-14) pg/ml Total Protein (6.0-8.3) gm/dl Albumin (3.4-5.0) gm/dl Globulin (2.5-4.0) gm/dl Albumin/Globulin Ratio (0.9-2) Lipase (11-82) U/L TSH (0.300-4.500) uIu/ml Urine Color Urine Appearance (Clear) Urine pH (4.5-7.5) Ur Specific [place] (1.000-1.030) Urine Protein (Negative) Urine Glucose (UA) (Negative) Urine Ketones (Negative) Urine Blood (Negative) Urine Nitrite (Negative) Urine Bilirubin (Negative) Urine Urobilinogen (Negative) Ur Leukocyte Esterase (Negative) Urine WBC (Auto) (0-5) /hpf Urine RBC (Auto) (0-4) /hpf U Hyaline Cast (Auto) (0-5) /lpf U Epithel Cells (Auto) (0-5) /lpf Urine Bacteria (Auto) (Negative) Digoxin (0.8-2.0) ng/ml Administered Medications Discontinued Medications Hydralazine HCl (Hydralazine Hcl 20 Mg/Ml Vial) 10 mg IV NOW STA Stop: 07/26/21 22:45 Last Admin: 07/26/21 22:54 Dose: 10 mg Documented by: [id number] Sodium Chloride (Nss 1000ml) 500 mls @ 999 mls/hr IV .Q31M ONE Stop: 07/26/21 19:46 Last Infusion: 07/26/21 20:49 Dose: 0 mls/hr Documented by: [id number] Admin: 07/26/21 20:04 Dose: 999 mls/hr Documented by: [id number] Magnesium Sulfate/Dextrose (Magnesium Sulfate / D5w) 1 gm in 100 mls @ 100 mls/hr IV NOW STA Stop: 07/26/21 21:22 Last Infusion: 07/26/21 22:12 Dose: 0 mls/hr Documented by: [id number] Admin: 07/26/21 20:53 Dose: 100 mls/hr Documented by: [id number] Magnesium Oxide (Magnesium Oxide 400 Mg Tab) 400 mg PO NOW STA Stop: 07/26/21 20:24 Last Admin: 07/26/21 20:53 Dose: 400 mg Documented by: [id number] Imaging Data Radiologist's Impression: Chest X-Ray 07/26/21 19:08 SINGLE VIEW CHEST CLINICAL HISTORY: Atypical chest pain. FINDINGS: An AP, portable, upright chest radiograph is compared to study dated 05/21/2021 and correlated with chest CT dated 02/13/2021. The examination is degraded by portable technique and patient rotation. A 2-lead cardiac pacemaker is unchanged in position. The heart is enlarged noting atherosclerotic calcification of the thoracic aorta. The pulmonary vasculature is noncongested. Chronic interstitial thickening is similar to previous. Atelectasis is noted at the left lung base. No airspace consolidation or large pleural effusion is identified. No pneumothorax is seen. The skeletal structures are osteopenic. The bony thorax is grossly intact. Degenerative change is seen in the shoulders. IMPRESSION: 1. Cardiomegaly and cardiac pacemaker without radiographic evidence of congestive failure. 2. No airspace consolidation or large pleural effusion is identified. ACT 112: Negative or not required by law. Electronically signed by: uOmar Nolasco M.D. 07/26/2021 7:22 PM Discharge Plan Visit Data Chief Complaint: Hypertension Stated Complaint: CHEST PAIN ED Provider: Oumar Perez Discharge Problem: Precordial chest pain, Hypertension, Palpitations, Elevated troponin Patient Disposition: Admitted As Inpatient Condition: Fair Forms Stand Alone Forms: [facility] [employer] Prescriptions Prescriptions: No Action Prolia 60 mg/mL syringe 60 mg subcut ONCE RF: 0 (DME) Oxygen Home Liters Per Minute See Rx Instructions .ROUTE RF: 0 sucralfate [Carafate] 1 gram tablet 1 g PO BID RF: 0 digoxin 125 mcg (0.125 mg) tablet 125 mcg PO 5XWK RF: 0 acetaminophen [Tylenol Extra Strength] 500 mg tablet 500 mg PO QID PRN (Reason: Pain) RF: 0 atorvastatin 40 mg Tablet 40 mg PO HS RF: 0 cyanocobalamin (vitamin B-12) [Vitamin B-12] 1,000 mcg Tablet 1,000 mcg PO 3XWK RF: 0 duloxetine 20 mg Capsule,Delayed Release(Dr/Ec) 20 mg PO QAM RF: 0 latanoprost (PF) 0.005 % Drops 1 drp OPB HS RF: 0 ascorbic acid (vitamin C) [Vitamin C] 1,000 mg Tablet 1 g PO QAM RF: 0 aspirin [Aspirin Childrens] 81 mg Tablet,Chewable 81 mg PO DAILY RF: 0 furosemide 40 mg tablet 40 mg PO QAM RF: 0 lorazepam 0.5 mg tablet 0.5 mg PO TID PRN (Reason: Anxiety) RF: 0 warfarin 1 mg tablet 1 mg PO DIRECTED Qty: 30 RF: 0 sennosides-docusate sodium [Senexon-S] 8.6-50 mg tablet 2 tab PO HS RF: 0 metoprolol succinate 100 mg tablet extended release 24 hr 200 mg PO BID RF: 0 omeprazole 40 mg Capsule,Delayed Release(Dr/Ec) 40 mg PO DAILY RF: 0 warfarin 1 mg tablet 2 mg PO MOWEFR RF: 0 aluminum-magnesium hydroxide 200-200 mg/5 mL Suspension 30 ml PO TID PRN (Reason: gi-upset) RF: 0 Referrals Referrals: Erlinda Haque MD [Primary Care Provider] -
[2021-07-26 20:14] LABS: Appearance Urine Clear (Clear); Bacteria Urine Automated Negative (Negative); Bilirubin Urine Negative (Negative); Blood Urine Negative (Negative); Color Urine Yellow; Glucose Urine UA Negative (Negative); Ketones Urine Negative (Negative); Leukocyte Esterase Urine Trace (Negative); Nitrite Urine Negative (Negative); Protein Urine 1+ (Negative); Specific Gravity Urine 1.023 (1.000-1.030); Urobilinogen Urine Negative (Negative); pH Urine 5.5 (4.5-7.5)
[2021-07-26] MEDS ORDERED: MAGNESIUM SULFATE / D5W 1 GM/100 ML BAG IV STA (20:23)
[2021-07-26] MEDS ORDERED: MAGNESIUM OXIDE 400 MG TAB PO STA (20:23)
[2021-07-26 21:07] LABS: Potassium 3.7 mmol/L (3.5-5.1)
[2021-07-26] MEDS ORDERED: hydrALAZINE HCL 20 MG/ML VIAL IV STA (22:44)
[2021-07-26] MEDS ORDERED: ACETAMINOPHEN 325 MG TAB PO STA (23:40)
[2021-07-27] MEDS ORDERED: LORazepam 0.5 MG TAB PO STA (00:52)
[2021-07-27] MEDS ORDERED: MAGNESIUM SULFATE / D5W 1 GM/100 ML BAG IV ONE (01:43)
[2021-07-27] MEDS ORDERED: NITROGLYCERIN SL 0.4 MG/TAB TAB SL PRN (01:43)
[2021-07-27] MEDS ORDERED: hydrALAZINE HCL 20 MG/ML VIAL IV PRN (01:43)
[2021-07-27] MEDS ORDERED: ALUMINUM/MAGNESIUM SUSP 30 ML UDC PO PRN (01:43)
[2021-07-27] MEDS ORDERED: LORazepam 0.5 MG TAB PO PRN (01:43)
[2021-07-27] MEDS ORDERED: WARFARIN SOD 1 MG TAB PO STA (02:10)
[2021-07-27 02:40] LABS: INR 1.4 (0.9-1.1); Prothrombin Time 14.7 Seconds (9.0-12.0)
[2021-07-27] MEDS ORDERED: hydrALAZINE HCL 20 MG/ML VIAL IV ONE (04:31)
--- NOTE | 2021-07-27 04:31 | History and Physical Report ---
DATE OF ADMISSION: 07/26/2021. CHIEF COMPLAINT: Hypertensive urgency. HISTORY OF PRESENT ILLNESS: This is an 86-year-old female with past medical history significant for hyperlipidemia, history of obstructive sleep apnea uses oxygen at nighttime, history of atrial fibrillation, history of tachybrady syndrome, status post pacemaker, chronic kidney disease stage III, history of combined systolic and diastolic CHF, venous insufficiency, history of malignant neoplasm of ascending colon status post hemicolectomy, GERD, vitamin B12 deficiency, pernicious anemia, iron deficiency anemia, depression, history of PE and history of DVT, history of CAD, remote PCI to LAD in 2004, history of moderate nonobstructive coronary artery disease as per cardiac catheterization in 03/2021, history of chronic venous insufficiency with vein stripping, recurrent phlebitis, thrombophlebitis and cellulitis, history of spontaneous right psoas muscle hematoma, she was given 3 units of PRBCs in 09/2019, history of hypothyroidism, hypertension, cervical disk disease and anxiety, prolonged hospitalization post-hemicolectomy with an ileus versus gastroenteritis, right abdominal wall hematoma, acute blood loss requiring transfusion of 1 unit of PRBCs, hyponatremia, VINITA, AFib with rapid ventricular response and hospital right lower lobe pneumonia. Again, hospitalized in 04/2021-06/02/2021 with C. diff, gastritis, likely Candidal esophagitis, acute lower extremity DVT and high probability PE, currently on Coumadin. The patient says since her hemicolectomy over the last 2-3 months she is in and out of the hospital and rehab and she is ambulating with a walker. She lives alone. Son lives in the same apartment complex.. She states, because of atrial fibrillation her metoprolol dose has been increased and losartan, hydralazine has been stopped, comes here because today her blood pressure was running high at home and she called [facility] and they advised her to come to the ER. In the ambulance, she felt some mild chest discomfort. She was given nitro and her chest pain resolved. Now has some headache. Now lying in the bed, she has some shortness of breath, occasional cough. Denies any fever or chills. Appetite is okay. No difficulty swallowing. Has some nausea, no abdominal pain, normal bowel and bladder movements. Denies blood in the stools or black stools. Today took 20 of Lasix, but her urine output was low today. She has swelling in the legs more in right leg which had DVT. Denies any dizziness, no blurred vision, no double visions. No earache, no runny nose, no sore throat, no fevers. Currently, resting comfortably and hemodynamically stable. She received dose of IV hydralazine in the ER. ALLERGIES: ALENDRONATE SODIUM, EZETIMIBE, BONIVA, IODINATED CONTRAST MEDIA, RED DYE, SIMVASTATIN, DYAZIDE, ERYTHROMYCIN BASE, AMIODARONE, MORPHINE, METOPROLOL. PAST MEDICAL HISTORY: As mentioned above. PAST SURGICAL HISTORY: Left heart catheterization, colonoscopy,parathyroidectomy, pacemaker placement, left knee arthroscopy, right hemicolectomy, LAD stent, left lower extremity vein ligation, tonsillectomy and adenoidectomy, sigmoidoscopy, total abdominal hysterectomy with removal of tubes, upper GI endoscopy. MEDICATIONS: The patient is on Tylenol 500 mg p.o. q.i.d. p.r.n., vitamin C 1 gram p.o. daily, aspirin 81 mg p.o. daily, atorvastatin 40 mg p.o. at bedtime, vitamin B12 1000 mcg p.o. 3 times a week, denosumab 60 mg subcutaneous as directed, digoxin 0.125 mg p.o. 5 times a week, duloxetine 20 mg p.o. a.m., Lasix 40 mg p.o. a.m., Latanoprost one drop ophthalmic at bedtime, lorazepam 0.5 mg p.o. t.i.d. p.r.n., metoprolol succinate 200 mg p.o. b.i.d., omeprazole 40 mg p.o. daily, Senokot-S 2 tablets at bedtime, sucralfate 1 gram p.o. b.i.d., warfarin as directed, oxygen 2 liters at bedtime. FAMILY HISTORY: Significant for son has arthritis, rheumatic fever; mother had lymphoma; brother has diabetes, sister has diabetes, son has diabetes. SOCIAL HISTORY: , lives alone. Son lives in same apartment. No smoking, no alcohol, no drug use. REVIEW OF SYMPTOMS: As per HPI. Rest of the review of systems is negative. PHYSICAL EXAMINATION: GENERAL: The patient is of moderate build, not in acute distress. VITAL SIGNS: Temperature 37, pulse 84, respiratory rate 17, blood pressure 184/93, oxygen 97% on room air. HEENT: Pupils equal, round and reactive to light. Oral mucosa moist. LUNGS: No JVD or neck masses. CARDIOVASCULAR: S1 and S2 heard. Regular rhythm. No murmur, no gallop. RESPIRATORY SYSTEM: Normal AP diameter. No accessory muscle use. No wheezing, no crackles. ABDOMEN: Soft. Bowel sounds are present. Mild abdominal discomfort. No guarding or rigidity. CENTRAL NERVOUS SYSTEM: Alert and awake. No facial droop. Speech is clear. Obeys simple commands. Insight is good. Moves extremities. EXTREMITIES: Lower extremity edema present. Right lower extremity greater than left lower extremity. No erythema seen. LABORATORY: WBC 7, hemoglobin 10.4, hematocrit 34.5, platelets 252. Sodium 140, potassium 3.7, chloride 107, bicarbonate 26, BUN 21, creatinine 1.1, serum glucose 95, calcium 9.7, magnesium 1.6, total bilirubin 0.6, AST 13, ALT 16, alkaline phosphatase 45, troponin-I 51. TSH 1.5. Urinalysis, trace leukocyte esterase. Digoxin 0.9. SARS-CoV-2 rapid test pending. IMAGING: Chest x-ray: Cardiomegaly with cardiac pacemaker without radiographic evidence of congestive heart failure. No airspace consolidation; large pleural effusion is identified. ECG: Atrial fibrillation with ventricular paced complexes at rate of 77, no significant change was found. ASSESSMENT AND PLAN: This is an 86-year-old female who presents with hypertensive urgency, episode of chest pain and shortness of breath. 1. Hypertensive urgency. The patient on metoprolol succinate 200 mg p.o. b.i.d., and Lasix supposed to take 40 mg but seems took only 20 mg today. She says she was on hydralazine and losartan before, but it was stopped. Dose of IV hydralazine was given in ER, we will continue with IV hydralazine prn. Monitor in the tele floor. Consult Cardiology in a.m. for adjustment of medications. Closely monitor. 2. Mild elevation of troponin, most likely demand ischemia. Since first troponin was 48, second troponin was 51, we will follow serial enzymes, echocardiogram. Monitor on tele, cardiac consult, n.p.o. until seen by Cardiology. 3. History of coronary artery disease status post stent, currently moderate obstructive disease on aspirin, beta baron and statin. Follow the echocardiogram. 4. History of atrial fibrillation, on metoprolol and on Coumadin. We will follow the INR. 5. Hypomagnesemia. We will replace. 6. History of colon cancer, status post right hemicolectomy. 7. Hyperlipidemia, on statin. 8. Depression, on duloxetine. 9. Chronic systolic and diastolic congestive heart failure, EF of 40-45% on Lasix, will continue with her home Lasix for now. 10. Gastroesophageal reflux disease. On omeprazole and sucralfate. 11. Deep venous thrombosis prophylaxis. On Coumadin. We will follow the PT/INR. 12. History of sleep apnea, uses 2 liters oxygen while sleeping. 13. Chronic kidney disease stage III. presented with creatinine of 1.1. We will follow the labs. DISPOSITION: Closely monitor in the tele floor. PT/OT prior to discharge. Social Service to help with discharge planning. Level 1 full code as per my discussion with the patient. Job ID: [id number] [facility]
[2021-07-27] MEDS: ACETAMINOPHEN 325 MG TAB PO PRN ×2 (05:46→11:32)
[2021-07-27 05:53] LABS: Basophils # (auto) 0.03 K/uL (0-0.2); Basophils % (auto) 0.4 %; Eosinophils # (auto) 0.07 K/uL (0-0.5); Eosinophils % (auto) 0.9 %; Hematocrit (blood only) 36.7 % (37-47); Hemoglobin 11.2 g/dL (12.0-16.0); Immature Granulocytes # (auto) 0.05 K/uL (0.00-0.02); Immature Granulocytes % (auto) 0.6 %; Lymphocytes % (auto) 19.7 %; Mean Corpuscular Hemoglobin 27.8 pg (25-34); Mean Corpuscular Hgb Conc 30.5 g/dL (32-36); Mean Corpuscular Volume 91.1 fL (80-100); Mean Platelet Volume 8.9 fL (7.4-10.4); Monocytes # (auto) 0.69 K/uL (0.11-0.59); Monocytes % (auto) 8.5 %; Neutrophils # (auto) 5.68 K/uL (1.4-6.5); Neutrophils % (auto) 69.9 %; Platelet Count 250 K/uL (130-400); RDW Coefficient of Variation 16.3 % (11.5-14.5); RDW Standard Deviation 54.5 fL (36.4-46.3); Red Blood Count 4.03 M/uL (4.2-5.4); White Blood Count 8.12 K/uL (4.8-10.8)
[2021-07-27 06:26] LABS: Troponin I High Sensitivity 50.7 pg/ml (0-14)
[2021-07-27 06:38] LABS: Creatinine Clr Calc Pharmacy 56.8 ml/min; Est GFR (African American) 77.3 ml/min; Est GFR (Non-African American) 66.7 ml/min
[2021-07-27 06:39] LABS: BUN Creatinine Ratio 19.8 (10-20); Calcium 9.7 mg/dl (8.5-10.1); Magnesium 2.2 mg/dl (1.7-2.4); Potassium 3.3 mmol/L (3.5-5.1)
--- NOTE | 2021-07-27 06:39 | Electrocardiogram Report ---
Test Reason : Blood Pressure : / mmHG Vent. Rate : 077 BPM Atrial Rate : 468 BPM P-R Int : 000 ms QRS Dur : 098 ms QT Int : 356 ms P-R-T Axes : 000 009 228 degrees QTc Int : 402 ms Atrial fibrillation with frequent ventricular-paced complexes Nonspecific ST and T wave abnormality Abnormal ECG When compared with ECG of 21-MAY-2021 15:23, No significant change was found Confirmed by Jem Hidalgo ([id number]) on 07/27/2021 6:38:44 AM Referred By: REFERRED SELF Confirmed By:Jem Hidalgo
[2021-07-27 06:41] LABS: INR 1.3 (0.9-1.1); Prothrombin Time 13.5 Seconds (9.0-12.0)
--- NOTE | 2021-07-27 07:04 | Electrocardiogram Report ---
Test Reason : Blood Pressure : / mmHG Vent. Rate : 072 BPM Atrial Rate : 416 BPM P-R Int : 000 ms QRS Dur : 112 ms QT Int : 418 ms P-R-T Axes : 000 168 -44 degrees QTc Int : 457 ms Poor data quality, interpretation may be adversely affected Atrial fibrillation with occasional ventricular-paced complexes Right axis deviation ST elevation consider lateral injury or acute infarct Abnormal ECG When compared with ECG of 26-JUL-2021 18:16, Vent. rate has decreased BY [address] elevation in Lateral leads now present Confirmed by Jem Hidalgo ([id number]) on 07/27/2021 7:04:34 AM Referred By: REFERRED SELF Confirmed By:Jem Hidalgo
[2021-07-27] MEDS ORDERED: POTASSIUM CHLORIDE CRTAB 20 MEQ TABCR PO STA (08:10)
[2021-07-27] MEDS ORDERED: PERFLUTREN LIPID MICROSPHERE (DEFINITY) IV ONE (08:16)
[2021-07-27] MEDS: CYANOCOBALAMIN (B-12) 500 MCG TABLET PO SCH (08:44)
[2021-07-27] MEDS: ASCORBIC ACID 500 MG TAB PO SCH (08:45)
[2021-07-27] MEDS: SUCRALFATE 1 GM TAB PO SCH ×2 (08:45→20:44)
[2021-07-27] MEDS: FUROSEMIDE 40 MG TAB PO SCH (08:45)
[2021-07-27] MEDS: DULoxetine HCL 20 MG CAP PO SCH (08:45)
[2021-07-27] MEDS: PANTOprazole 40 MG TAB PO SCH (08:45)
[2021-07-27] MEDS: ASPIRIN 81 MG ECTAB PO SCH (08:45)
[2021-07-27] MEDS: METOPROLOL SUCC 50MG EXT REL TAB PO SCH ×2 (08:45→20:43)
[2021-07-27] MEDS: ONDANSETRON INJ 2 MG/ML 2 ML VIAL IV PRN ×2 (08:54→15:17)
--- NOTE | 2021-07-27 11:10 | Cardiology Consultation ---
Date of Consultation July 27, 2021 Assessment & Plan (1) Hypertension: (2) Precordial chest pain: (3) Elevated troponin: (4) Deep vein thrombosis (DVT) of right lower extremity: (5) Permanent atrial fibrillation: (6) Subtherapeutic anticoagulation: Outpatient medical records reviewed. Amlodipine and Aldactone discontinued within the past 3-6 months. Recommend restart amlodipine today. Patient agreeable. Consider restarting Aldactone pending review of follow-up lab studies. Her INR is subtherapeutic on admission. Recommend addition of intravenous heparin infusion at this time. Dose warfarin daily for goal INR of 2.0-3.0. Mildly elevated troponin secondary to demand ischemia in the setting of uncontrolled hypertension/hypertensive urgency. Recent cardiac catheterization performed in March demonstrating moderate nonobstructive CAD. Echocardiogram reveals mild improvement of LV systolic function. No new regional wall motion abnormalities. History of Present Illness Reason for Consultation: Hypertensive urgency, elevated troponin Requesting Physician: Dr. Tam Attending Physician: Juan Miguel Rivera MD History of Present Illness 86-year-old female presented to the emergency department with chief complaint of hypertension and palpitations. Reported sensation of fluttering in her chest and some shortness of breath with heaviness.+ Associated nausea. No diaphoresis or radiation of the discomfort. Describes intensity as mild. Patient concerned symptoms were due to her atrial fibrillation. She was treated with aspirin and 2 sublingual nitroglycerin prior to arrival. Complex medical history listed below. Admission recommended due to elevated blood pressure. Per chart review, amlodipine discontinued in early June although, the reason for stopping medication was not well documented. Previously treated with spironolactone 25 mg daily as well. Currently patient resting comfortably. Notes headache due to sublingual nitroglycerin administered in the ER. Blood pressure remains elevated. Denies chest pain or shortness of breath at rest. No orthopnea or PND. Notes chronic right lower extremity edema attributed to deep venous thrombosis. INR subtherapeutic on admission. Currently chest pain-free. Denies palpitations, lightheadedness, or dizziness. Denies signs/symptoms of GI/ blood loss. Problem List (Copied from [facility] medical record): 1. 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 Persistent atrial fibrillation, ongoing since January 2021 3. Coronary ischemic heart disease status post remote PCI to the LAD in 2004 4. April 15, 2021 Coronary Angiography ([facility], Dr. Lopez): Moderate nonobstructive coronary artery disease (40% proximal LAD, 50% mid LAD. Moderate to severe first septal, small second diagonal disease. Widely patent proximal to mid LAD stent. 40% proximal RCA, 40% mid RCA). Normal intracardiac filling pressure 5. Nonischemic cardiomyopathy 6. Systolic and diastolic heart failure 7. Mitral regurgitation 8. Sleep apnea and hypoxemia. Unable to tolerate CPAP. On supplemental oxygen at 2 L/min QHS. 9. Chronic venous insufficiency with remove vein stripping, with recurrent phlebitis/thrombophlebitis/cellulitis 10. History of significant spontaneous right psoas muscle hematoma (Hemoglobin 6.7 g/dL, receiving 3 units of pRBC's without difficulty) in September 2019. Anticoagulation discontinued at that time. 11. Anticoagulation prescribed x 3 months after presentation in December 2019 with extensive thrombophlebitis and associated cellulitis of the left lower extremity. 12. Hyperparathyroidism 13. Hypertension 14. Dyslipidemia 15. Stage III CKD 16. Esophageal reflux 17. Cervical disc disease 18. Anxiety 19. Colonic carcinoma. Status post April 27, 2021 right laparoscopic hemicolectomy by Dr. Ashok Salamanca MD. 20. Prolonged hospitalization post hemicolectomy 04/27/2021 to 05/12/2021 with an ileus versus gastroenteritis, right abdominal wall hematoma, acute blood loss requiring transfusion of one unit pRBC's, hyponatremia, acute renal dysfunction, atrial fibrillation with a rapid ventricular response, and hospital acquired right middle lobe pneumonia 21. Hospitalization at [facility] 05/21/2021 to 06/02/2021 with C diff diarrhea, gastritis/likely tyrese esophagitis, acute right lower extremity DVT and left lower extremity SVT, high probability PE. Allergies Allergy/AdvReac Type Severity Reaction Status Date / Time alendronate sodium Allergy Intermediate Wheezing, Verified 07/26/21 19:46 shortness of breath. ezetimibe Allergy Intermediate Muscle Verified 07/26/21 19:46 pain. ibandronate sodium Allergy Intermediate trouble Verified 07/26/21 19:46 [From Boniva] swallowing Iodinated Contrast Media Allergy Intermediate Wheezing Verified 07/26/21 19:46 red dye Allergy Intermediate Hives Verified 07/26/21 19:46 simvastatin Allergy Intermediate Muscle Verified 07/26/21 19:46 pain. Thiazides Allergy Intermediate wheezing Verified 07/26/21 19:46 erythromycin base Allergy Mild Nausea Verified 07/26/21 19:46 amiodarone Allergy shortness Verified 07/26/21 19:46 of breath morphine Allergy Unknown Verified 07/26/21 19:46 metoprolol AdvReac must be Verified 06/18/21 09:04 caraco brand Home Medications Medication Instructions Recorded Confirmed Type ascorbic acid (vitamin C) 1,000 mg 1 g PO QAM 01/13/21 07/26/21 History tablet (Vitamin C) atorvastatin 40 mg tablet 40 mg PO HS 01/13/21 07/26/21 History cyanocobalamin (vitamin B-12) 1,000 mcg PO 3XWK 01/13/21 07/26/21 History 1,000 mcg tablet (Vitamin B-12) duloxetine 20 mg capsule,delayed 20 mg PO QAM 01/13/21 07/26/21 History release latanoprost (PF) 0.005 % eye drops 1 drp OPB HS 01/13/21 07/26/21 History aspirin 81 mg chewable tablet 81 mg PO DAILY 05/21/21 07/26/21 History (Aspirin Childrens) furosemide 40 mg tablet 40 mg PO QAM 05/21/21 07/26/21 History lorazepam 0.5 mg tablet 0.5 mg PO TID PRN 05/21/21 07/26/21 History warfarin 1 mg tablet 1 mg PO DIRECTED #30 tab 06/02/21 07/26/21 Rx Oxygen Home 06/18/21 07/26/21 History acetaminophen 500 mg tablet 500 mg PO QID PRN 06/18/21 07/26/21 History (Tylenol Extra Strength) denosumab 60 mg/mL subcutaneous 60 mg SUBCUT ONCE ml 06/18/21 07/26/21 History syringe (Prolia) digoxin 125 mcg (0.125 mg) tablet 125 mcg PO 5XWK tab 06/18/21 07/26/21 History sucralfate 1 gram tablet (Carafate) 1 g PO BID tab 06/18/21 07/26/21 History aluminum-magnesium hydroxide 200 30 ml PO TID PRN 07/26/21 07/26/21 History mg-200 mg/5 mL oral suspension metoprolol succinate 100 mg 200 mg PO BID 07/26/21 07/26/21 History tablet,extended release 24 hr omeprazole 40 mg capsule,delayed 40 mg PO DAILY 07/26/21 07/26/21 History release sennosides 8.6 mg-docusate sodium 2 tab PO HS 07/26/21 07/26/21 History 50 mg tablet (Senexon-S) warfarin 1 mg tablet 2 mg PO MOWEFR 07/26/21 07/26/21 History Patient History Medical History Abdominal wall hematoma Abnormal nuclear stress test Normal cardic catheterization in Mar 2020 Acute on chronic renal failure Allergic rhinitis Allergy to iodinated contrast Ambulates with cane Anemia Anemia of chronic disease Anxiety Basal cell carcinoma Forehead C. difficile diarrhea CAD (coronary artery disease) Cardiac murmur Chronic anticoagulation Chronic diastolic heart failure Chronic kidney disease (CKD), stage III (moderate) follows with Dr. Butler Closed fracture of facial bone Colon adenocarcinoma Diagnosed Dec 2020 Deep vein thrombosis (DVT) of right lower extremity Degenerative disc disease, lumbar Depression Dyslipidemia Electrolyte and fluid disorder Frequent falls history of R iliopsoas hematoma Sep 2019 after a fall GERD (gastroesophageal reflux disease) Glaucoma History of COVID-19 diagnosed 02/2020 @ [facility]--fever, headache, cough, loss of taste/smell--no issues now Hyperparathyroidism for conservative management Labile blood pressure hx of vasovagal syncope Mitral valve disease Myocardial Infarction (~2005) follows with Poli Zepeda PA-C @ [facility] Osteoarthritis Osteoporosis Pacemaker (~2011) Medtronic Model: A2DR01 04/11/2017 Dual-chamber last check 3 mo ago Paroxysmal atrial fibrillation PAT (paroxysmal atrial tachycardia) Pericarditis Pulmonary emboli Sleep apnea 2L N/C at hs Thyroid nodule Venous insufficiency Weakness Surgical History H/O colectomy H/O vein stripping Left leg History of arthroscopy of left knee History of bilateral cataract extraction History of cardiac cath 2005 with 1 stent placed @ [facility] History of colonoscopy History of dilatation and curettage History of esophagogastroduodenoscopy (EGD) History of facial surgery metal plate under left eye/left cheek History of parathyroidectomy partial @ [facility] History of partial hysterectomy History of permanent cardiac pacemaker placement medtronic History of tooth extraction all teeth S/P excision of lipoma S/P right hemicolectomy Status post subtotal parathyroidectomy 2009 R inferior adenoma Family History Mother , 66yo Lymphoma Father Medical history unknown Brother Accident Brother Lung cancer Smoker Diabetes Hypertension Sister Heart disease Heart surgery Sister No problems noted. Sister Endometrial cancer Thyroid disease Sister Overdose Son COPD (chronic obstructive pulmonary disease) Diabetes Myocardial infarction Hypertension Son No problems noted. Son Throat cancer Hypertension Daughter Atrial fibrillation Daughter No problems noted. Other Cancer No family history of adverse response to anesthesia Social History Smoking Status: Never smoker Second Hand Exposure: Yes; Hx Alcohol Use: No Hx Substance Use: No Preferred Language: Gambian Communication Ability: Effective Visual Impairment: No Limitations Hearing Ability: Normal Post Partum Nurse Required: No Beliefs That Will Affect Care: None marital status: / Current Living Situation: Alone Current Living Situation Comment: [facility] for inpatient rehab current occupational status: retired current occupation: [employer] x 18 yrs How many Children do You have: 5 Other Information That Helps Us Care for You: No Feels Safe at Home: Yes Safety Concerns: Feels Safe At This Time caffeine: Yes (1 cup/day) during the past year weight has: remained stable Assistive Devices: Glasses, Oxygen - Continuous, Walker and Wheelchair Review of Systems Review of Systems: All systems reviewed & are unremarkable except as noted in Subjective Physical Exam Constitutional: well developed and well nourished; no acute distress Respiratory: normal respiratory effort; no respiratory distress, no labored breathing and no retractions Auscultation: lungs clear to auscultation bilaterally; no crackles, no rales, no rhonchi and no wheezes Cardiovascular: Rate/Rhythm: + irregularly irregular Heart Sounds: normal S1 and normal S2; no murmur Vessels: radial pulses present; no JVD Extremities: + edema (RLE edema) Gastrointestinal (Abdomen): Inspection/Auscultation: abdomen normal to inspection and normal bowel sounds; abdomen not distended Percussion/Palpation: abdomen soft; abdomen nontender, no guarding and abdomen not rigid Neurologic: CN's II-XI intact bilaterally and moves all extremities; no focal motor deficits Motor/Sensory: no tremor Psychiatric: A+Ox3, euthymic affect Results & Data ([facility]) Vital Signs (Past 12 Hours) Vital Signs Temp Pulse Pulse Resp BP BP BP 07/27/21 10:43 81 07/27/21 06:28 179/102 H 07/27/21 04:02 36.6 C 90 16 177/112 H 07/27/21 01:43 36.6 C 85 16 188/108 H 07/27/21 00:50 87 28 H 161/111 H 07/27/21 00:30 81 15 07/27/21 00:00 78 24 187/112 H 07/26/21 23:30 82 21 07/26/21 23:28 84 17 184/93 H Pulse Ox 07/27/21 10:43 07/27/21 06:28 07/27/21 04:02 97 07/27/21 01:43 95 07/27/21 00:50 96 07/27/21 00:30 97 07/27/21 00:00 97 07/26/21 23:30 97 07/26/21 23:28 97 (1) Hypertension Hypertension type: unspecified Qualified Code(s): I10 - Essential (primary) hypertension (2) Deep vein thrombosis (DVT) of right lower extremity Affected thrombotic vein of extremity: unspecified vein of extremity Chronicity: acute Qualified Code(s): I82.401 - Acute embolism and thrombosis of unspecified deep veins of right lower extremity
[2021-07-27] MEDS ORDERED: Heparin IV Adult Wt-Based Standard *NO* Bolus Protocol IV SCH (13:18)
[2021-07-27] MEDS ORDERED: HEPARIN 25000 UNIT/500 ML D5W IV ONE (14:12)
[2021-07-27] MEDS ORDERED: ACETAMINOPHEN 1000 MG/100 ML IV IV PRN (14:48)
[2021-07-27] MEDS: amLODIPine BESYLATE 5 MG TAB PO SCH (15:00)
[2021-07-27] MEDS: HEPARIN SODIUM/DEXTROSE 25,000 UNITS/500 ML BAG IV SCH (15:00)
[2021-07-27 15:02] LABS: Partial Thromboplastin Ratio 1.1; Partial Thromboplastin Time 30.6 Seconds (21.0-31.0)
[2021-07-27] MEDS ORDERED: ACETAMINOPHEN 1000 MG/100 ML IV IV ONE (15:07)
--- NOTE | 2021-07-27 15:07 | Hospitalist Progress Note ---
Date of Service July 27, 2021 Assessment & Plan (1) Hypertensive urgency: Plan: Presented with mild chest pain and shortness of breath and noted to have very high blood pressure at presentation BP medications were changed recently Blood pressure has been improving with current medications Appreciate cardiology input and recommendation Amlodipine has been added and will add Aldactone provided PRP is unremarkable (2) Elevated troponin: Plan: Noted to have minimally elevated troponin likely secondary to stress Subsequent troponin remained unremarkable Denies any more pain (3) Permanent atrial fibrillation: Plan: Rate remains controlled (4) Deep vein thrombosis (DVT) of right lower extremity: Plan: INR remains subtherapeutic Denies any acute pain involving the right calf (5) Adenocarcinoma of cecum: Plan: Status post right hemicolectomy (6) S/P right hemicolectomy: (7) Chronic combined systolic and diastolic heart failure: Plan: No evidence of fluid overload and/or CHF EF was 40 to 45% recently (8) Subtherapeutic anticoagulation: Plan: Has been on intravenous heparin and Coumadin Discontinue heparin when INR is therapeutic Headache Will try Tylenol CODE STATUS Full Admission and Anticipated Discharge Date Admission Date: July 26, 2021 Subjective 07/27/2021 Patient was seen and examined in telemetry unit Denies any more chest pain and/or palpitation Denies any other significant symptoms Review of Systems Review of Systems: All systems reviewed and are unremarkable except as noted below Physical Exam Physical Exam: Lying in bed comfortably Constitutional: well developed, well nourished and + obese; not ill appearing Eyes: PERRL, conjunctivae normal, anicteric sclerae ENMT: external ear and nose normal, oropharynx normal Neck: trachea midline, no thyromegaly Respiratory: no respiratory distress Auscultation: + diminished lung sounds; no crackles Cardiovascular: Rate/Rhythm: regular rate and regular rhythm; not tachycardic Heart Sounds: normal S1 and normal S2; no murmur Extremities: + edema (Trace edema bilaterally) Gastrointestinal (Abdomen): Inspection/Auscultation: normal bowel sounds; abdomen not distended Percussion/Palpation: abdomen soft; abdomen nontender Musculoskeletal: No acute arthritis in any joint Neurologic: Alert, awake and oriented x3 Generally weak Lymphatic: no cervical or axillary lymphadenopathy Results & Data Results & Data ([facility]) Vital Signs (Past 12 Hours) Vital Signs Temp Pulse Pulse Resp BP Pulse Ox 07/27/21 11:38 36.6 C 69 18 176/69 H 93 07/27/21 10:43 81 07/27/21 06:28 179/102 H 07/27/21 04:02 36.6 C 90 16 177/112 H 97 Laboratory Results Short CBC 07/26/21 07/27/21 Range/Units 19:06 05:03 WBC 7.00 8.12 (4.8-10.8) K/uL Hgb 10.4 L 11.2 L (12.0-16.0) g/dL Hct 34.5 L 36.7 L (37-47) % Plt Count 252 250 (130-400) K/uL BMP 07/26/21 07/26/21 07/27/21 19:06 20:30 05:03 Sodium 140 140 Potassium 3.7 3.3 L Chloride 107 105 Carbon Dioxide 26 26 BUN 21 16 Creatinine 1.16 0.81 D Glucose 95 121 H Calcium 9.7 9.7 Liver Function 07/26/21 07/26/21 Range/Units 19:06 20:30 Total Bilirubin 0.6 (0.2-1.0) mg/dl AST 13 (13-39) U/L ALT 16 (7-52) U/L Alkaline Phosphatase 45 (34-104) U/L Albumin 3.8 (3.4-5.0) gm/dl Urine 07/26/21 Range/Units 19:46 Urine Color Yellow Urine Appearance Clear (Clear) Urine pH 5.5 (4.5-7.5) Ur Specific [place] 1.023 (1.000-1.030) Urine Protein 1+ H (Negative) Urine Glucose (UA) Negative (Negative) Medications Administered Current Inpatient Medications Acetaminophen (Acetaminophen 325 Mg Tab) 650 mg PO Q4H PRN PRN Reason: Pain or Fever Stop: 08/26/21 01:42 Last Admin: 07/27/21 11:32 Dose: 650 mg Documented by: Acetaminophen (Acetaminophen 1000 Mg/100 Ml Iv) 1,000 mg IV Q8H PRN PRN Reason: Headache or Pain Stop: 07/30/21 14:47 Al Hydrox/Mg Hydrox/Simethicone (Aluminum/Magnesium Susp 30 Ml Udc) 30 ml PO TID PRN PRN Reason: gi-upset Stop: 08/26/21 01:42 Amlodipine Besylate (Amlodipine Besylate 5 Mg Tab) [facility] [place] Stop: 08/26/21 12:44 Ascorbic Acid (Ascorbic Acid 500 Mg Tab) 1,000 mg PO QAM [facility] Stop: 08/26/21 08:59 Last Admin: 07/27/21 08:45 Dose: 1,000 mg Documented by: Aspirin (Aspirin 81 Mg Ectab) 81 mg PO DAILY [facility] Stop: 08/26/21 08:59 Last Admin: 07/27/21 08:45 Dose: 81 mg Documented by: Atorvastatin Calcium (Atorvastatin 40 Mg Tab) 40 mg PO HS [facility] Stop: 08/26/21 20:59 Cyanocobalamin (Cyanocobalamin (B-12) 500 Mcg Tablet) 1,000 mcg PO MoWeFr@0900 [facility] Stop: 08/26/21 08:59 Last Admin: 07/27/21 08:44 Dose: 1,000 mcg Documented by: Digoxin (Digoxin 0.125 Mg Tab) 0.125 mg PO MoTuWeThFr@1600 [facility] Stop: 08/26/21 15:59 Duloxetine HCl (Duloxetine Hcl 20 Mg Cap) 20 mg PO [facility] Stop: 08/26/21 08:59 Last Admin: 07/27/21 08:45 Dose: 20 mg Documented by: Furosemide (Furosemide 40 Mg Tab) [facility] [place] Stop: 08/26/21 08:59 Last Admin: 07/27/21 08:45 Dose: 40 mg Documented by: Heparin Sodium/Dextrose (Heparin Iv Adult Wt-Based Standard *No* Bolus Protocol) 1 ea IV Q15M [facility]; Protocol Stop: 08/26/21 13:17 Hydralazine HCl (Hydralazine Hcl 20 Mg/Ml Vial) 7.5 mg IV Q6H PRN PRN Reason: Hypertension Stop: 08/26/21 01:42 Heparin Sodium/Dextrose (Heparin Sodium/Dextrose) 25,000 units in 500 mls @ 0.02 mls/hr IV .Q24H [facility]; Protocol Stop: 08/26/21 13:44 Lorazepam (Lorazepam 0.5 Mg Tab) 0.5 mg PO TID PRN PRN Reason: Anxiety Stop: 08/26/21 01:42 Metoprolol Succinate (Metoprolol Succ 50mg Ext Rel Tab) 200 mg PO BID [facility] Stop: 08/26/21 08:59 Last Admin: 07/27/21 08:45 Dose: 200 mg Documented by: Miscellaneous (Latanoprost Pf - Order Awaiting Action) 1 ea N/A QS [facility] Stop: 08/26/21 07:59 Last Admin: 07/27/21 10:48 Dose: Not Given Documented by: Nitroglycerin (Nitroglycerin Sl 0.4 Mg/Tab Tab) 0.4 mg SL UD PRN PRN Reason: Chest Pain Stop: 08/26/21 01:42 Ondansetron HCl (Ondansetron Inj 2 Mg/Ml 2 Ml Vial) 4 mg IV Q6H PRN PRN Reason: Nausea Stop: 08/26/21 01:42 Last Admin: 07/27/21 08:54 Dose: 4 mg Documented by: Pantoprazole Sodium (Pantoprazole 40 Mg Tab) 40 mg PO DAILY [facility] Stop: 08/26/21 08:59 Last Admin: 07/27/21 08:45 Dose: 40 mg Documented by: Senna/Docusate Sodium (Docusate Sodium/Senna 50/8.6mg Tab) 2 tab PO HS [facility] Stop: 08/26/21 20:59 Sucralfate (Sucralfate 1 Gm Tab) 1 gm PO BID [facility] Stop: 08/26/21 08:59 Last Admin: 07/27/21 08:45 Dose: 1 gm Documented by: Warfarin Sodium (Warfarin Sod 2 Mg Tab) 2 mg PO MoWeFr@1600 [facility] Stop: 08/26/21 15:59 Warfarin Sodium (Warfarin Sod 1 Mg Tab) 1 mg PO SuTuThSa@1600 [facility] Stop: 08/27/21 15:59 (1) Deep vein thrombosis (DVT) of right lower extremity Affected thrombotic vein of extremity: unspecified vein of extremity Chron icity: acute Qualified Code(s): I82.401 - Acute embolism and thrombosis of unspecified deep veins of right lower extremity
[2021-07-27] MEDS: WARFARIN SOD 2 MG TAB PO SCH (17:10)
[2021-07-27] MEDS: DIGOXIN 0.125 MG TAB PO SCH (17:11)
[2021-07-27] MEDS: DOCUSATE SODIUM/SENNA 50/8.6MG TAB PO SCH (20:43)
[2021-07-27] MEDS: ATORVASTATIN 40 MG TAB PO SCH (20:43)
[2021-07-27] MEDS ORDERED: LATANOPROST 0.005% OP SOLN 2.5 ML BTL OP SCH (21:00)
[2021-07-27 22:15] LABS: Partial Thromboplastin Ratio 2.3
[2021-07-27 22:31] LABS: Partial Thromboplastin Time 62.4 Seconds (21.0-31.0)
[2021-07-27] MEDS ORDERED: KETOROLAC TROMETHAMINE 15 MG/ML VIAL IV ONE (22:48)
[2021-07-28 04:38] LABS: Basophils # (auto) 0.02 K/uL (0-0.2); Basophils % (auto) 0.3 %; Eosinophils # (auto) 0.08 K/uL (0-0.5); Hematocrit (blood only) 34.5 % (37-47); Hemoglobin 10.6 g/dL (12.0-16.0); Immature Granulocytes # (auto) 0.06 K/uL (0.00-0.02); Immature Granulocytes % (auto) 0.8 %; Lymphocytes # (auto) 1.47 K/uL (1.2-3.4); Lymphocytes % (auto) 18.6 %; Mean Corpuscular Hemoglobin 28.3 pg (25-34); Mean Corpuscular Hgb Conc 30.7 g/dL (32-36); Mean Platelet Volume 8.9 fL (7.4-10.4); Monocytes # (auto) 1.08 K/uL (0.11-0.59); Monocytes % (auto) 13.6 %; Neutrophils # (auto) 5.21 K/uL (1.4-6.5); Neutrophils % (auto) 65.7 %; Platelet Count 245 K/uL (130-400); RDW Coefficient of Variation 16.1 % (11.5-14.5); RDW Standard Deviation 54.3 fL (36.4-46.3); Red Blood Count 3.75 M/uL (4.2-5.4); White Blood Count 7.92 K/uL (4.8-10.8)
[2021-07-28 05:05] LABS: BUN Creatinine Ratio 14.8 (10-20); Calcium 9.7 mg/dl (8.5-10.1); Creatinine Clr Calc Pharmacy 42.6 ml/min; Est GFR (African American) 54.6 ml/min; Est GFR (Non-African American) 47.1 ml/min; Magnesium 1.8 mg/dl (1.7-2.4); Potassium 3.8 mmol/L (3.5-5.1)
[2021-07-28 05:12] LABS: INR 1.6 (0.9-1.1); Partial Thromboplastin Ratio 2.9; Prothrombin Time 16.6 Seconds (9.0-12.0)
[2021-07-28 05:21] LABS: Partial Thromboplastin Time 78.6 Seconds (21.0-31.0)
--- NOTE | 2021-07-28 08:52 | Electrocardiogram Report ---
Test Reason : Blood Pressure : / mmHG Vent. Rate : 067 BPM Atrial Rate : 288 BPM P-R Int : 000 ms QRS Dur : 102 ms QT Int : 398 ms P-R-T Axes : 000 035 223 degrees QTc Int : 420 ms Poor data quality, interpretation may be adversely affected Atrial fibrillation with frequent ventricular-paced complexes ST depression in Anterolateral leads Abnormal ECG When compared with ECG of 27-JUL-2021 05:51, Vent. rate has decreased BY [address] elevation in Lateral leads no longer present (however, beats on current tracing are electronically paced) Confirmed by Jem Hidalgo ([id number]) on 07/28/2021 8:52:11 AM Referred By: REFERRED SELF Confirmed By:Jem Hidalgo
[2021-07-28] MEDS: PANTOprazole 40 MG TAB PO SCH (09:15)
[2021-07-28] MEDS: FUROSEMIDE 40 MG TAB PO SCH (09:15)
[2021-07-28] MEDS: SUCRALFATE 1 GM TAB PO SCH ×2 (09:15→20:11)
[2021-07-28] MEDS: DULoxetine HCL 20 MG CAP PO SCH (09:15)
[2021-07-28] MEDS: METOPROLOL SUCC 50MG EXT REL TAB PO SCH ×2 (09:15→20:12)
[2021-07-28] MEDS: ASCORBIC ACID 500 MG TAB PO SCH (09:15)
[2021-07-28] MEDS: ASPIRIN 81 MG ECTAB PO SCH (09:16)
[2021-07-28] MEDS: HEPARIN SODIUM/DEXTROSE 25,000 UNITS/500 ML BAG IV SCH (10:50)
[2021-07-28] MEDS: amLODIPine BESYLATE 5 MG TAB PO SCH (11:00)
[2021-07-28 12:45] LABS: Partial Thromboplastin Ratio 2.6
[2021-07-28 12:50] LABS: Partial Thromboplastin Time 72.6 Seconds (21.0-31.0)
[2021-07-28] MEDS ORDERED: WARFARIN SOD 1 MG TAB PO SCH (16:00)
[2021-07-28] MEDS: DIGOXIN 0.125 MG TAB PO SCH (16:07)
--- NOTE | 2021-07-28 16:35 | Cardiology Progress Note ---
Date of Service July 28, 2021 Assessment & Plan (1) Chronic combined systolic and diastolic heart failure: (2) Hypertension: (3) Palpitations: (4) Deep vein thrombosis (DVT) of right lower extremity: (5) Permanent atrial fibrillation: (6) NSVT (nonsustained ventricular tachycardia): Plan: Patient with recent outpatient monitoring manager to distinguish between paroxysmal and persistent/permanent atrial fibrillation, with rate controlled atrial fibrillation, 100% burden, demand right ventricular pacing. Several episodes of nonsustained ventricular tachycardia observed at that time. Overnight on telemetry, there was a 13 beat run of nonsustained ventricular tachycardia, otherwise atrial fibrillation with demand ventricular pacing in the 60s observed. Renal function stable, potassium acceptable at 3.8. With regards to her palpitations. Not certain if her subjective symptoms correlate with the episodes of NSVT, most recent episode noted on telemetry was not associated with any significant symptoms. And the episodes on her recent outpatient monitoring manager were not associated with subjective symptoms. She is already on very high-dose beta-baron therapy, metoprolol succinate 200 mg twice daily. Amiodarone previously discontinued several years ago due to concerns of pulmonary toxicity so that is not an option with regards to suppressing the ventricular arrhythmias. She did have a heart catheterization several months ago, with no significant obstruction at that time. Her volume status appears stable. Amlodipine previously discontinued due to perioperative low blood pressure, but it would appear most prudent to resume it. Also pt had previously been on hydralazine doses fo 10 mg BID and TID in the past. Stopped 01/2021 to allow for high dose metoprolol. Wll resume the hydralazine orally today. Remain in hospital. Continue cautious heparin bride with noted history of AF, DVT, and past abdominal wall hematoma. Admission and Anticipated Discharge Date Admission Date: July 28, 2021 Subjective Pt seen in cardiology follow up. Well known to the undersigned. Pt states subjective shortness of breath and palpitations improved. BP high yesterday, but trending toward improvement. Review of Systems Review of Systems: All systems reviewed & are unremarkable except as noted in HPI & below Physical Exam Physical Exam: Temp Pulse Resp BP Pulse Ox 36.6 C 72 18 144/89 H 94 07/28/21 15:37 07/28/21 16:07 07/28/21 15:37 07/28/21 15:37 07/28/21 15:37 Constitutional: WD/WN, vitals as above Respiratory: normal respiratory effort, lungs clear to auscultation Cardiovascular: Rate/Rhythm: regular rhythm Heart Sounds: no murmur Vessels: no JVD Gastrointestinal (Abdomen): normal bowel sounds, soft, nontender, no hepatosplenomegaly Neurologic: PERRL, EOMI, accommodation nl, no face palsy, no dysarthria Results & Data ([facility]) Vital Signs (Past 12 Hours) Vital Signs Temp Pulse Pulse Resp BP Pulse Ox 07/28/21 16:07 72 07/28/21 15:37 36.6 C 72 18 144/89 H 94 07/28/21 15:09 69 07/28/21 12:14 36.6 C 76 18 159/94 H 94 07/28/21 08:30 36.7 C 65 19 148/77 H 97 (1) Hypertension Hypertension type: unspecified Qualified Code(s): I10 - Essential (primary) hypertension (2) Deep vein thrombosis (DVT) of right lower extremity Affected thrombotic vein of extremity: unspecified vein of extremity Chronicity: acute Qualified Code(s): I82.401 - Acute embolism and thrombosis of unspecified deep veins of right lower extremity
[2021-07-28] MEDS ORDERED: hydrALAZINE 10 MG TAB PO ONE (17:15)
--- NOTE | 2021-07-28 19:04 | Hospitalist Progress Note ---
Date of Service July 28, 2021 Assessment & Plan (1) Hypertensive urgency: Plan: Presented with mild chest pain and shortness of breath and noted to have very high blood pressure at presentation BP medications were changed recently Blood pressure has been improving with current medications Appreciate cardiology input and recommendation Amlodipine has been added and will add Aldactone provided PRP is unremarkable Hydralazine has been added to control blood pressure as she was on this medicine before Blood pressure has been improving (2) Elevated troponin: Plan: Noted to have minimally elevated troponin likely secondary to stress Subsequent troponin remained unremarkable Denies any more pain (3) Permanent atrial fibrillation: Plan: Rate remains controlled Has had short episodes of ventricular tachycardia Heart rate remains controlled at 72 (4) Deep vein thrombosis (DVT) of right lower extremity: Plan: INR remains subtherapeutic Denies any acute pain involving the right calf INR remains low at 1.6-Will repeat INR tomorrow and continue heparin and Coum luis (5) Adenocarcinoma of cecum: Plan: Status post right hemicolectomy (6) S/P right hemicolectomy: Plan: Will ask PT and OT evaluation Likely discharge tomorrow (7) Chronic combined systolic and diastolic heart failure: Plan: No evidence of fluid overload and/or CHF EF was 40 to 45% recently (8) Subtherapeutic anticoagulation: Plan: Has been on intravenous heparin and Coumadin Discontinue heparin when INR is therapeutic Headache Will try Tylenol CODE STATUS Full Admission and Anticipated Discharge Date Admission Date: July 28, 2021 Subjective 07/27/2021 Patient was seen and examined in telemetry unit Denies any more chest pain and/or palpitation Denies any other significant symptoms 07/28/2021 The patient was seen and examined in telemetry unit He has been feeling much better Denies any chest pain or palpitation No shortness of breath at rest and the blood pressure is trending downwards Review of Systems Review of Systems: All systems reviewed and are unremarkable except as noted below Respiratory: No shortness of breath at rest Cardiovascular: Additional Comments: No chest pain and/or palpitation Physical Exam Physical Exam: Lying in bed comfortably Constitutional: well developed, well nourished and + obese; not ill appearing Eyes: PERRL, conjunctivae normal, anicteric sclerae ENMT: external ear and nose normal, oropharynx normal Neck: trachea midline, no thyromegaly Respiratory: no respiratory distress Auscultation: + diminished lung sounds; no crackles Cardiovascular: Rate/Rhythm: regular rate and regular rhythm; not tachycardic Heart Sounds: normal S1 and normal S2; no murmur Extremities: + edema (Trace edema bilaterally) Gastrointestinal (Abdomen): Inspection/Auscultation: normal bowel sounds; abdomen not distended Percussion/Palpation: abdomen soft; abdomen nontender Musculoskeletal: No acute arthritis in any joint Neurologic: normal touch/pain/proprioception, moves all extremities and + focal motor deficit; not confused Psychiatric: A+Ox3, euthymic affect Lymphatic: no cervical or axillary lymphadenopathy Results & Data Results & Data ([facility]) Vital Signs (Past 12 Hours) Vital Signs Temp Pulse Pulse Resp BP Pulse Ox 07/28/21 16:07 72 07/28/21 15:37 36.6 C 72 18 144/89 H 94 07/28/21 15:09 69 07/28/21 12:14 36.6 C 76 18 159/94 H 94 07/28/21 08:30 36.7 C 65 19 148/77 H 97 Laboratory Results Short CBC 07/28/21 Range/Units 04:13 WBC 7.92 (4.8-10.8) K/uL Hgb 10.6 L (12.0-16.0) g/dL Hct 34.5 L (37-47) % Plt Count 245 (130-400) K/uL BMP 07/28/21 04:13 Sodium 136 Potassium 3.8 Chloride 101 Carbon Dioxide 29 BUN 16 Creatinine 1.08 Glucose 110 H Calcium 9.7 Medications Administered Current Inpatient Medications Acetaminophen (Acetaminophen 325 Mg Tab) 650 mg PO Q4H PRN PRN Reason: Pain or Fever Stop: 08/26/21 01:42 Last Admin: 07/27/21 11:32 Dose: 650 mg Documented by: Acetaminophen (Acetaminophen 1000 Mg/100 Ml Iv) 1,000 mg IV Q8H PRN PRN Reason: Headache or Pain Stop: 07/30/21 14:47 Al Hydrox/Mg Hydrox/Simethicone (Aluminum/Magnesium Susp 30 Ml Udc) 30 ml PO TID PRN PRN Reason: gi-upset Stop: 08/26/21 01:42 Amlodipine Besylate (Amlodipine Besylate 5 Mg Tab) 5 mg PO QAM [facility] Stop: 08/26/21 12:44 Last Admin: 07/28/21 11:00 Dose: 5 mg Documented by: Ascorbic Acid (Ascorbic Acid 500 Mg Tab) 1,000 mg PO QAM [facility] Stop: 08/26/21 08:59 Last Admin: 07/28/21 09:15 Dose: 1,000 mg Documented by: Aspirin (Aspirin 81 Mg Ectab) 81 mg PO DAILY [facility] Stop: 08/26/21 08:59 Last Admin: 07/28/21 09:16 Dose: 81 mg Documented by: Atorvastatin Calcium (Atorvastatin 40 Mg Tab) 40 mg PO HS [facility] Stop: 08/26/21 20:59 Last Admin: 07/27/21 20:43 Dose: 40 mg Documented by: Cyanocobalamin (Cyanocobalamin (B-12) 500 Mcg Tablet) 1,000 mcg PO MoWeFr@0900 [facility] Stop: 08/26/21 08:59 Last Admin: 07/27/21 08:44 Dose: 1,000 mcg Documented by: Digoxin (Digoxin 0.125 Mg Tab) 0.125 mg PO MoTuWeThFr@1600 [facility] Stop: 08/26/21 15:59 Last Admin: 07/28/21 16:07 Dose: 0.125 mg Documented by: Duloxetine HCl (Duloxetine Hcl 20 Mg Cap) [facility] Stop: 08/26/21 08:59 Last Admin: 07/28/21 09:15 Dose: 20 mg Documented by: Furosemide (Furosemide 40 Mg Tab) [facility] [place] Stop: 08/26/21 08:59 Last Admin: 07/28/21 09:15 Dose: 40 mg Documented by: Hydralazine HCl (Hydralazine Hcl 20 Mg/Ml Vial) 7.5 mg IV Q6H PRN PRN Reason: Hypertension Stop: 08/26/21 01:42 Last Admin: 07/27/21 16:27 Dose: 7.5 mg Documented by: Hydralazine HCl (Hydralazine 10 Mg Tab) 10 mg PO BID [facility] Stop: 08/28/21 08:59 Heparin Sodium/Dextrose (Heparin Sodium/Dextrose) 25,000 units in 500 mls @ 23 mls/hr IV .[id number] [facility]; Protocol Stop: 08/26/21 13:44 Last Titration: 07/28/21 13:01 Dose: 1,150 units/hr, 23 mls/hr Documented by: Lorazepam (Lorazepam 0.5 Mg Tab) 0.5 mg PO TID PRN PRN Reason: Anxiety Stop: 08/26/21 01:42 Metoprolol Succinate (Metoprolol Succ 50mg Ext Rel Tab) 200 mg PO BID [facility] Stop: 08/26/21 08:59 Last Admin: 07/28/21 09:15 Dose: 200 mg Documented by: Miscellaneous (Latanoprost Pf - Order Awaiting Action) 1 ea N/A QS [facility] Stop: 08/26/21 07:59 Last Admin: 07/28/21 15:04 Dose: Not Given Documented by: Nitroglycerin (Nitroglycerin Sl 0.4 Mg/Tab Tab) 0.4 mg SL UD PRN PRN Reason: Chest Pain Stop: 08/26/21 01:42 Ondansetron HCl (Ondansetron Inj 2 Mg/Ml 2 Ml Vial) 4 mg IV Q6H PRN PRN Reason: Nausea Stop: 08/26/21 01:42 Last Admin: 07/27/21 15:17 Dose: 4 mg Documented by: Pantoprazole Sodium (Pantoprazole 40 Mg Tab) 40 mg PO DAILY [facility] Stop: 08/26/21 08:59 Last Admin: 07/28/21 09:15 Dose: 40 mg Documented by: Senna/Docusate Sodium (Docusate Sodium/Senna 50/8.6mg Tab) 2 tab PO HS [facility] Stop: 08/26/21 20:59 Last Admin: 07/27/21 20:43 Dose: 2 tab Documented by: Sucralfate (Sucralfate 1 Gm Tab) 1 gm PO BID [facility] Stop: 08/26/21 08:59 Last Admin: 07/28/21 09:15 Dose: 1 gm Documented by: Warfarin Sodium (Warfarin Sod 2 Mg Tab) 2 mg PO MoWeFr@1600 [facility] Stop: 08/26/21 15:59 Last Admin: 07/27/21 17:10 Dose: 2 mg Documented by: Warfarin Sodium (Warfarin Sod 1 Mg Tab) 1 mg PO SuTuThSa@1600 [facility] Stop: 08/27/21 15:59 Last Admin: 07/28/21 16:08 Dose: 1 mg Documented by: (1) Deep vein thrombosis (DVT) of right lower extremity Affected thrombotic vein of extremity: unspecified vein of extremity Chronicity: acute Qualified Code(s): I82.401 - Acute embolism and thrombosis of unspecified deep veins of right lower extremity
[2021-07-28] MEDS: ATORVASTATIN 40 MG TAB PO SCH (20:11)
[2021-07-28] MEDS: DOCUSATE SODIUM/SENNA 50/8.6MG TAB PO SCH (20:11)
[2021-07-28] MEDS: ACETAMINOPHEN 325 MG TAB PO PRN (20:12)
[2021-07-28 20:24] LABS: Partial Thromboplastin Ratio 2.4
[2021-07-28 20:31] LABS: Partial Thromboplastin Time 66.3 Seconds (21.0-31.0)
[2021-07-29 05:58] LABS: Basophils # (auto) 0.02 K/uL (0-0.2); Basophils % (auto) 0.3 %; Eosinophils # (auto) 0.19 K/uL (0-0.5); Hematocrit (blood only) 34.2 % (37-47); Hemoglobin 10.6 g/dL (12.0-16.0); Immature Granulocytes # (auto) 0.07 K/uL (0.00-0.02); Immature Granulocytes % (auto) 1.1 %; Lymphocytes % (auto) 22.4 %; Mean Corpuscular Hemoglobin 28.6 pg (25-34); Mean Corpuscular Volume 92.2 fL (80-100); Mean Platelet Volume 8.9 fL (7.4-10.4); Monocytes # (auto) 0.89 K/uL (0.11-0.59); Monocytes % (auto) 14.3 %; Neutrophils # (auto) 3.67 K/uL (1.4-6.5); Neutrophils % (auto) 58.9 %; Platelet Count 220 K/uL (130-400); RDW Coefficient of Variation 16.1 % (11.5-14.5); Red Blood Count 3.71 M/uL (4.2-5.4); White Blood Count 6.24 K/uL (4.8-10.8)
[2021-07-29 06:14] LABS: BUN Creatinine Ratio 18.1 (10-20); Calcium 9.6 mg/dl (8.5-10.1); Creatinine Clr Calc Pharmacy 36.4 ml/min; Est GFR (African American) 44.9 ml/min; Est GFR (Non-African American) 38.7 ml/min; Magnesium 1.8 mg/dl (1.7-2.4)
[2021-07-29 06:23] LABS: INR 1.7 (0.9-1.1); Prothrombin Time 17.6 Seconds (9.0-12.0)
[2021-07-29] MEDS: HEPARIN SODIUM/DEXTROSE 25,000 UNITS/500 ML BAG IV SCH (08:49)
[2021-07-29] MEDS: CYANOCOBALAMIN (B-12) 500 MCG TABLET PO SCH (08:50)
[2021-07-29] MEDS: amLODIPine BESYLATE 5 MG TAB PO SCH (08:50)
[2021-07-29] MEDS: SUCRALFATE 1 GM TAB PO SCH ×2 (08:50→21:21)
[2021-07-29] MEDS: METOPROLOL SUCC 50MG EXT REL TAB PO SCH ×2 (08:50→21:22)
[2021-07-29] MEDS: FUROSEMIDE 40 MG TAB PO SCH (08:50)
[2021-07-29] MEDS: ASPIRIN 81 MG ECTAB PO SCH (08:50)
[2021-07-29] MEDS: DULoxetine HCL 20 MG CAP PO SCH (08:51)
[2021-07-29] MEDS: PANTOprazole 40 MG TAB PO SCH (08:51)
[2021-07-29] MEDS: ASCORBIC ACID 500 MG TAB PO SCH (08:51)
[2021-07-29] MEDS ORDERED: hydrALAZINE 10 MG TAB PO SCH (09:00)
[2021-07-29] MEDS: ACETAMINOPHEN 325 MG TAB PO PRN (10:01)
[2021-07-29 13:11] LABS: Partial Thromboplastin Ratio 2.4
[2021-07-29 14:14] LABS: Partial Thromboplastin Time 66.6 Seconds (21.0-31.0)
[2021-07-29] MEDS: DIGOXIN 0.125 MG TAB PO SCH (16:08)
[2021-07-29] MEDS: WARFARIN SOD 2 MG TAB PO SCH (16:08)
--- NOTE | 2021-07-29 17:58 | Hospitalist Progress Note ---
Date of Service July 29, 2021 Assessment & Plan (1) Hypertensive urgency: Plan: Improved with addition of amlodipine 5mg daily, Hydralazine 10mg BID (2) Elevated troponin: Plan: Likely due to demand from #1 above (3) Permanent atrial fibrillation: Plan: Rate remains controlled Continue metoprolol 200mg BID, digoxin, coumadin Subtherapeutic INR, patient is on heparin bridge (4) Deep vein thrombosis (DVT) of right lower extremity: Plan: INR remains subtherapeutic Denies any acute pain involving the right calf INR remains low at 1.6-Will repeat INR tomorrow and continue heparin and Coumadin (5) Adenocarcinoma of cecum: Plan: Status post right hemicolectomy (6) S/P right hemicolectomy: (7) Chronic combined systolic and diastolic heart failure: Plan: EF was 40 to 45% recently Euvolemic on exam continue lasix 40mg daily (8) Subtherapeutic anticoagulation: Plan: Disposition: patient is from home, ambulates with walker. She feels she is at her current baseline functional status. Likely discharge home in next 24 hours pending clearance from Cardiology Admission and Anticipated Discharge Date Admission Date: July 28, 2021 Subjective Patient feels well Denies chest pain, shortness of breath Patient is mobilizing in room using her walker, feels at her baseline Physical Exam Physical Exam: Sitting in chair, no acute distress, non toxic Respiratory: breathing comfortably on room air, no wheezing/rhonchi/rales Cardiovascular: Irregular but not rapid, no murmurs/rubs/gallops Gastrointestinal (Abdomen): soft, non tender Musculoskeletal: No edema Neurologic: Awake, alert, spontaneously moving extremities Results & Data Results & Data ([facility]) Vital Signs (Past 12 Hours) Vital Signs Temp Pulse Pulse Resp BP BP Pulse Ox 07/29/21 16:08 74 07/29/21 16:02 36.6 C 70 18 147/74 H 95 07/29/21 14:47 74 07/29/21 11:15 36.8 C 76 19 146/79 H 94 07/29/21 07:16 67 07/29/21 07:00 36.2 C L 70 19 159/79 H 93 Laboratory Results Short CBC 07/29/21 Range/Units 05:23 WBC 6.24 (4.8-10.8) K/uL Hgb 10.6 L (12.0-16.0) g/dL Hct 34.2 L (37-47) % Plt Count 220 (130-400) K/uL [facility] 07/29/21 05:23 Sodium 135 L Potassium 4.0 Chloride 100 Carbon Dioxide 29 BUN 23 Creatinine 1.27 H Glucose 99 Calcium 9.6 Medications Administered Current Inpatient Medications Acetaminophen (Acetaminophen 325 Mg Tab) 650 mg PO Q4H PRN PRN Reason: Pain or Fever Stop: 08/26/21 01:42 Last Admin: 07/29/21 10:01 Dose: 650 mg Documented by: Acetaminophen (Acetaminophen 1000 Mg/100 Ml Iv) 1,000 mg IV Q8H PRN PRN Reason: Headache or Pain Stop: 07/30/21 14:47 Al Hydrox/Mg Hydrox/Simethicone (Aluminum/Magnesium Susp 30 Ml Udc) 30 ml PO TID PRN PRN Reason: gi-upset Stop: 08/26/21 01:42 Amlodipine Besylate (Amlodipine Besylate 5 Mg Tab) 5 mg PO QAM [facility] Stop: 08/26/21 12:44 Last Admin: 07/29/21 08:50 Dose: 5 mg Documented by: Ascorbic Acid (Ascorbic Acid 500 Mg Tab) 1,000 mg PO QAM [facility] Stop: 08/26/21 08:59 Last Admin: 07/29/21 08:51 Dose: 1,000 mg Documented by: Aspirin (Aspirin 81 Mg Ectab) 81 mg PO DAILY [facility] Stop: 08/26/21 08:59 Last Admin: 07/29/21 08:50 Dose: 81 mg Documented by: Atorvastatin Calcium (Atorvastatin 40 Mg Tab) 40 mg PO HS [facility] Stop: 08/26/21 20:59 Last Admin: 07/28/21 20:11 Dose: 40 mg Documented by: Cyanocobalamin (Cyanocobalamin (B-12) 500 Mcg Tablet) 1,000 mcg PO MoWeFr@0900 [facility] Stop: 08/26/21 08:59 Last Admin: 07/29/21 08:50 Dose: 1,000 mcg Documented by: Digoxin (Digoxin 0.125 Mg Tab) 0.125 mg PO [id number]@1600 [facility] Stop: 08/26/21 15:59 Last Admin: 07/29/21 16:08 Dose: 0.125 mg Documented by: Duloxetine HCl (Duloxetine Hcl 20 Mg Cap) [facility] Stop: 08/26/21 08:59 Last Admin: 07/29/21 08:51 Dose: 20 mg Documented by: Furosemide (Furosemide 40 Mg Tab) 40 mg PO QAM [facility] Stop: 08/26/21 08:59 Last Admin: 07/29/21 08:50 Dose: 40 mg Documented by: Hydralazine HCl (Hydralazine Hcl 20 Mg/Ml Vial) 7.5 mg IV Q6H PRN PRN Reason: Hypertension Stop: 08/26/21 01:42 Last Admin: 07/27/21 16:27 Dose: 7.5 mg Documented by: Hydralazine HCl (Hydralazine 10 Mg Tab) 10 mg PO BID [facility] Stop: 08/28/21 08:59 Last Admin: 07/29/21 08:50 Dose: 10 mg Documented by: Heparin Sodium/Dextrose (Heparin Sodium/Dextrose) 25,000 units in 500 mls @ 21 mls/hr IV .[id number] [facility]; Protocol Stop: 08/26/21 13:44 Last Titration: 07/29/21 14:31 Dose: 1,050 units/hr, 21 mls/hr Documented by: Lorazepam (Lorazepam 0.5 Mg Tab) 0.5 mg PO TID PRN PRN Reason: Anxiety Stop: 08/26/21 01:42 Metoprolol Succinate (Metoprolol Succ 50mg Ext Rel Tab) 200 mg PO BID [facility] Stop: 08/26/21 08:59 Last Admin: 07/29/21 08:50 Dose: 200 mg Documented by: Miscellaneous (Latanoprost Pf - Order Awaiting Action) 1 ea N/A QS [facility] Stop: 08/26/21 07:59 Last Admin: 07/29/21 16:08 Dose: Not Given Documented by: Nitroglycerin (Nitroglycerin Sl 0.4 Mg/Tab Tab) 0.4 mg SL UD PRN PRN Reason: Chest Pain Stop: 08/26/21 01:42 Ondansetron HCl (Ondansetron Inj 2 Mg/Ml 2 Ml Vial) 4 mg IV Q6H PRN PRN Reason: Nausea Stop: 08/26/21 01:42 Last Admin: 07/27/21 15:17 Dose: 4 mg Documented by: Pantoprazole Sodium (Pantoprazole 40 Mg Tab) 40 mg PO DAILY [facility] Stop: 08/26/21 08:59 Last Admin: 07/29/21 08:51 Dose: 40 mg Documented by: Senna/Docusate Sodium (Docusate Sodium/Senna 50/8.6mg Tab) 2 tab PO HS [facility] Stop: 08/26/21 20:59 Last Admin: 07/28/21 20:11 Dose: 2 tab Documented by: Sucralfate (Sucralfate 1 Gm Tab) 1 gm PO BID [facility] Stop: 08/26/21 08:59 Last Admin: 07/29/21 08:50 Dose: 1 gm Documented by: Warfarin Sodium (Warfarin Sod 2 Mg Tab) 2 mg PO [id number]@1600 [facility] Stop: 08/26/21 15:59 Last Admin: 07/29/21 16:08 Dose: 2 mg Documented by: Warfarin Sodium (Warfarin Sod 1 Mg Tab) 1 mg PO [id number]@1600 [facility] Stop: 08/27/21 15:59 Last Admin: 07/28/21 16:08 Dose: 1 mg Documented by: (1) Deep vein thrombosis (DVT) of right lower extremity Affected thrombotic vein of extremity: unspecified vein of extremity Chronicity: acute Qualified Code(s): I82.401 - Acute embolism and thrombosis of unspecified deep veins of right lower extremity
[2021-07-29] MEDS ORDERED: WARFARIN SOD 1 MG TAB PO STA (18:21)
--- NOTE | 2021-07-29 20:52 | Cardiology Progress Note ---
Date of Service July 29, 2021 Assessment & Plan (1) Chronic combined systolic and diastolic heart failure: (2) Hypertension: (3) Palpitations: (4) Deep vein thrombosis (DVT) of right lower extremity: (5) Permanent atrial fibrillation: (6) NSVT (nonsustained ventricular tachycardia): Plan: INR 07/29/2021 1.7. Continue cautious heparin bridge. Patient received 2 mg of Coumadin, administered an additional 1 mg. Continue current medications with recent additions of amlodipine and hydralazine. Continue high-dose metoprolol for rate control with regards to atrial fibrillation, as well as short episodes of nonsustained VT. Admission and Anticipated Discharge Date Admission Date: July 28, 2021 Subjective Patient seen in follow-up for dyspnea on exertion, elevated blood pressure, subjective palpitations. Overall continues to trend toward improvement. Hydralazine added back yesterday. Blood pressure is trending toward improvement but still little bit high. Telemetry reveals rate controlled atrial fibrillation, occasional demand ventricular pacing. Physical Exam Constitutional: WD/WN, vitals as above Respiratory: normal respiratory effort, lungs clear to auscultation Cardiovascular: Rate/Rhythm: regular rhythm Heart Sounds: no murmur Vessels: no JVD Gastrointestinal (Abdomen): normal bowel sounds, soft, nontender, no hepatosplenomegaly Neurologic: PERRL, EOMI, accommodation nl, no face palsy, no dysarthria Results & Data ([facility]) Vital Signs (Past 12 Hours) Vital Signs Temp Pulse Pulse Resp BP Pulse Ox 07/29/21 16:08 74 07/29/21 16:02 36.6 C 70 18 147/74 H 95 07/29/21 14:47 74 07/29/21 11:15 36.8 C 76 19 146/79 H 94 (1) Hypertension Hypertension type: unspecified Qualified Code(s): I10 - Essential (primary) hypertension (2) Deep vein thrombosis (DVT) of right lower extremity Affected thrombotic vein of extremity: unspecified vein of extremity Chronicity: acute Qualified Code(s): I82.401 - Acute embolism and thrombosis of unspecified deep veins of right lower extremity
[2021-07-29 21:00] LABS: Partial Thromboplastin Time 54.3 Seconds (21.0-31.0)
[2021-07-29] MEDS: DOCUSATE SODIUM/SENNA 50/8.6MG TAB PO SCH (21:21)
[2021-07-29] MEDS: ATORVASTATIN 40 MG TAB PO SCH (21:21)
[2021-07-29] MEDS: hydrALAZINE 10 MG TAB PO SCH (21:21)
[2021-07-30 06:01] LABS: Hematocrit (blood only) 33.6 % (37-47); Hemoglobin 10.2 g/dL (12.0-16.0); Mean Corpuscular Hgb Conc 30.4 g/dL (32-36); Mean Corpuscular Volume 92.3 fL (80-100); Mean Platelet Volume 8.6 fL (7.4-10.4); Platelet Count 218 K/uL (130-400); RDW Coefficient of Variation 16.4 % (11.5-14.5); RDW Standard Deviation 54.9 fL (36.4-46.3); Red Blood Count 3.64 M/uL (4.2-5.4); White Blood Count 6.78 K/uL (4.8-10.8)
[2021-07-30 06:23] LABS: BUN Creatinine Ratio 16.5 (10-20); Calcium 9.9 mg/dl (8.5-10.1); Creatinine Clr Calc Pharmacy 33.2 ml/min; Est GFR (African American) 40.2 ml/min; Est GFR (Non-African American) 34.7 ml/min; Potassium 3.9 mmol/L (3.5-5.1)
[2021-07-30 06:33] LABS: INR 1.3 (0.9-1.1); Partial Thromboplastin Ratio 2.2; Prothrombin Time 13.7 Seconds (9.0-12.0)
[2021-07-30 06:35] LABS: Partial Thromboplastin Time 60.4 Seconds (21.0-31.0)
[2021-07-30] MEDS: DULoxetine HCL 20 MG CAP PO SCH (09:02)
[2021-07-30] MEDS: PANTOprazole 40 MG TAB PO SCH (09:02)
[2021-07-30] MEDS: ASCORBIC ACID 500 MG TAB PO SCH (09:02)
[2021-07-30] MEDS: SUCRALFATE 1 GM TAB PO SCH (09:02)
[2021-07-30] MEDS: amLODIPine BESYLATE 5 MG TAB PO SCH (09:02)
[2021-07-30] MEDS: FUROSEMIDE 40 MG TAB PO SCH (09:02)
[2021-07-30] MEDS: ASPIRIN 81 MG ECTAB PO SCH (09:02)
[2021-07-30] MEDS: hydrALAZINE 10 MG TAB PO SCH (09:03)
[2021-07-30] MEDS: METOPROLOL SUCC 50MG EXT REL TAB PO SCH (09:03)
[2021-07-30] MEDS ORDERED: WARFARIN SOD 5 MG TAB PO ONE (09:19)
--- NOTE | 2021-07-30 10:03 | Cardiology Progress Note ---
Date of Service July 30, 2021 Assessment & Plan (1) Chronic combined systolic and diastolic heart failure: (2) Hypertension: (3) Palpitations: (4) Deep vein thrombosis (DVT) of right lower extremity: (5) Permanent atrial fibrillation: (6) NSVT (nonsustained ventricular tachycardia): Plan: 86 year old female, well known to the undersigned. (1) Chronic combined systolic and diastolic heart failure: LVEF 45-50% this admission stable. Volume status stable. Continue Furosemide 40 mg PO daily. (2) Hypertension: Pt with longstanding h/o labile hypertension and symptomatic low BP with mechanical fall a few months ago with orthostasis at that time. Continue metoprolol Succinate 200 mg BID Furosemide 40 mg PO daily Resume losartan 100 mg daily (was on this in January, favor adding this back over hydralazine for once a day dosing, and given LVEF ~45%) Amlodipine 5 mg daily. (3) Palpitations: Permanent AF. Episodes of NSVT noted in hospital and on outpt awake overnight monitor, but not certain these correlae with pts sympotms. Pt s/p cardiac cath 03/2021 as part of preop work up prior to colectomy given new abnormalities on resting EKG at that time, and abnormal nuclear stress without significant obstructive disease, LAD stent (placed remotely) patent then. Had been on amiodarone for AF , DC'd in 2019 due to concerns of pulmonary toxicity. Continue metoprolol. (4) Deep vein thrombosis (DVT) of right lower extremity: INR 1.3 today. H/o thigh hematoma and abdominal wall hematoma in past. DC heparin bridge. Continue coumadin.Dose increased to 5 mg daily, one dose NOW. Close Follow up [facility], [facility] to draw INRs. (5) Permanent atrial fibrillation: as noted above, continue metoprolol, digoxin, coumadin (6) NSVT (nonsustained ventricular tachycardia): As noted above. Admission and Anticipated Discharge Date Admission Date: July 28, 2021 Subjective Miranda is seen in follow up of shortness of breath, HTN, and palpitations. Palpitations improved. BP trending toward improvement. Rate controlled AF on telemetry in the 70s with demand RV pacing noted occasionally. Most recent brief episode of NSVT was evening of 07/29/21 at 9:45 pm. Physical Exam Constitutional: WD/WN, vitals as above Respiratory: normal respiratory effort, lungs clear to auscultation Cardiovascular: Rate/Rhythm: regular rhythm Heart Sounds: no murmur Vessels: no JVD Gastrointestinal (Abdomen): normal bowel sounds, soft, nontender, no hepatosplenomegaly Neurologic: PERRL, EOMI, accommodation nl, no face palsy, no dysarthria Results & Data ([facility]) Vital Signs (Past 12 Hours) Vital Signs Temp Pulse Pulse Resp BP Pulse Ox 07/30/21 09:47 79 07/30/21 07:51 73 07/30/21 07:36 36.6 C 56 L 18 160/84 H 92 07/30/21 04:21 36.6 C 66 18 152/91 H 97 07/29/21 22:56 36.7 C 81 16 130/78 93 07/29/21 22:30 77 (1) Hypertension Hypertension type: unspecified Qualified Code(s): I10 - Essential (primary) hypertension (2) Deep vein thrombosis (DVT) of right lower extremity Affected thrombotic vein of extremity: unspecified vein of extremity Chronicity: acute Qualified Code(s): I82.401 - Acute embolism and thrombosis of unspecified deep veins of right lower extremity
[2021-07-30] MEDS: ACETAMINOPHEN 325 MG TAB PO PRN ×2 (10:26→17:31)
[2021-07-30] MEDS ORDERED: LOSARTAN POTASSIUM 50 MG TAB PO SCH (10:30)
[2021-07-30] MEDS ORDERED: WARFARIN SOD 5 MG TAB PO SCH (16:00)
[2021-07-30] MEDS: DIGOXIN 0.125 MG TAB PO SCH (16:00)
--- NOTE | 2021-07-31 09:46 | Discharge Summary ---
Date of Service July 31, 2021 Admission HPI Per Admitting Provider This is an 86-year-old female with past medical history significant for hyperlipidemia, history of obstructive sleep apnea uses oxygen at nighttime, history of atrial fibrillation, history of tachybrady syndrome, status post pacemaker, chronic kidney disease stage III, history of combined systolic and diastolic CHF, venous insufficiency, history of malignant neoplasm of ascending colon status post hemicolectomy, GERD, vitamin B12 deficiency, pernicious anemia, iron deficiency anemia, depression, history of PE and history of DVT, history of CAD, remote PCI to LAD in 2004, history of moderate nonobstructive coronary artery disease as per cardiac catheterization in 03/2021, history of chronic venous insufficiency with vein stripping, recurrent phlebitis, thrombophlebitis and cellulitis, history of spontaneous right psoas muscle hematoma, she was given 3 units of PRBCs in 09/2019, history of hypothyroidism, hypertension, cervical disk disease and anxiety, prolonged hospitalization post- hemicolectomy with an ileus versus gastroenteritis, right abdominal wall hematoma, acute blood loss requiring transfusion of 1 unit of PRBCs, hyponatremia, VINITA, AFib with rapid ventricular response and hospital right lower lobe pneumonia. Again, hospitalized in 04/2021-06/02/2021 with C. diff, gastritis, likely Candidal esophagitis, acute lower extremity DVT and high probability PE, currently on Coumadin. The patient says since her hemicolectomy over the last 2-3 months she is in and out of the hospital and rehab and she is ambulating with a walker. She lives alone. Son lives in the same apartment complex.. She states, because of atrial fibrillation her metoprolol dose has been increased and losartan, hydralazine has been stopped, comes here because today her blood pressure was running high at home and she called [facility] and they advised her to come to the ER. In the ambulance, she felt some mild chest discomfort. She was given nitro and her chest pain resolved. Now has some headache. Now lying in the bed, she has some shortness of breath, occasional cough. Denies any fever or chills. Appetite is okay. No difficulty swallowing. Has some nausea, no abdominal pain, normal bowel and bladder movements. Denies blood in the stools or black stools. Today took 20 of Lasix, but her urine output was low today. She has swelling in the legs more in right leg which had DVT. Denies any dizziness, no blurred vision, no double visions. No earache, no runny nose, no sore throat, no fevers. Currently, resting comfortably and hemodynamically stable. She received dose of IV hydralazine in the ER. Principal Diagnosis Hypertensive Urgency Demand Ischemia Subtherapeutic INR Discharge Exam Patient feels well, back to baseline. We reviewed her medication changes and all questions were answered Sitting comfortably in her chair, non toxic, pleasant Pulm-Breathing comfortably on room air CV-Irregular but not rapid No lower extremity edema Discharge Data Allergies Allergy/AdvReac Type Severity Reaction Status Date / Time alendronate sodium Allergy Intermediate Wheezing, Verified 07/26/21 19:46 shortness of breath. ezetimibe Allergy Intermediate Muscle Verified 07/26/21 19:46 pain. ibandronate sodium Allergy Intermediate trouble Verified 07/26/21 19:46 [From Maria Fernanda] swallowing Iodinated Contrast Media Allergy Intermediate Wheezing Verified 07/26/21 19:46 red dye Allergy Intermediate Hives Verified 07/26/21 19:46 simvastatin Allergy Intermediate Muscle Verified 07/26/21 19:46 pain. Thiazides Allergy Intermediate wheezing Verified 07/26/21 19:46 erythromycin base Allergy Mild Nausea Verified 07/26/21 19:46 amiodarone Allergy shortness Verified 07/26/21 19:46 of breath morphine Allergy Unknown Verified 07/26/21 19:46 metoprolol AdvReac must be Verified 06/18/21 09:04 [employer] Consultations 07/26/21 22:53 ED Decision to Admit Stat 07/27/21 08:00 Consult Cardiology Routine Hospital Course (1) Hypertensive urgency: Improved with addition of amlodipine 5mg daily, Hydralazine 10mg BID (2) Elevated troponin: Likely due to demand from #1 above (3) Permanent atrial fibrillation: Rate remains controlled Continue metoprolol 200mg BID, digoxin, coumadin Subtherapeutic INR, patient is on heparin bridge (4) Deep vein thrombosis (DVT) of right lower extremity: INR remains subtherapeutic Denies any acute pain involving the right calf INR remains low at 1.6-Will repeat INR tomorrow and continue heparin and Coumadin (5) Adenocarcinoma of cecum: Status post right hemicolectomy (6) S/P right hemicolectomy: (7) Chronic combined systolic and diastolic heart failure: EF was 40 to 45% recently Euvolemic on exam continue lasix 40mg daily (8) Subtherapeutic anticoagulation: Mrs Miranda Coe is a 86 year old female with histor of permanent A fib on coumadin, DVT, chronic systolic CHF, hypertension and remaining PMHx per H&P presented to the ER on 07/27 with chest pain, shortness of breath and high blood pressure on home readings. Upon arrival here, her BP was noted to be 187/109. Chest X ray was negative for acute findings. TTE shows EF 45-50% which compared to previous is slightly improved, remaining findings include moderate LVH, severe LA dilation, mod MR, mod-severe TR. She was seen by Cardiology and her medications were adjusted for better blood pressure control. With improvement of her blood pressure, her symptoms resolved and at the time of discharge she felt back to baseline. She was evaluated by PT and recommended to return home with home care services. Of note, her INR here was subtherapeutic and she was placed on a heparin drip while here. However, she does have a history of bleeding and at discharge does not need bridging. She was gived additional coumadin on 07/30 (5mg total) due to INR of 1.3 and her coumadin dose was increased to 2mg daily (from 2mg MWF and 1mg other days). She will have INR check on 07/31 by visiting nurse and follow up at [facility]. Medication changes and discharge instructions were reviewed with patient in detail prior to discharge. She expresses understanding of changes and need for close follow up. Home Health Attestation I certify that this patient is under my care and that I, or a physicians assistant technician working with me, had a face to-face encounter that meets the home health [id number] encounter requirements with this patient. The encounter with the patient was in whole, or in part, for the following medical condition, which is the primary reason for home health care (list medical condition): Hypertension I certify that, based on my findings, the following services are medically necessary home health services: My clinical findings support the need for the above services because: PT Assessment for Endurance / Balance / Strength PT Eval for Safety and Mobility PT Eval for Safety, Gait Training, Assistive Devices PT Gait and Balance Training, Strengthening and Safety Safety Skilled Nsg Assessment Further, I certify that my clinical findings support that this patient is homebound (i.e. absences from home require considerable and taxing effort and are for medical reasons or religion services or infrequently or of short duration when for other reasons) because: Supportive Aid - Walker Supportive Aid - Wheelchair Certification for Home Health Services: Based on the above findings, I certify that this patient is confined to the home and needs intermittent [facility] care, physical therapy and/or speech therapy or continues to need occupational therapy. The patient is under my care, and I have initiated the establishment of the plan of care. This patient will be followed by a physician who will periodically review the plan of care. Total Time Total Time Spent Total Time Spent (In Minutes): 40 Discharge Plan Discharge Items Patient Disposition: Home - Home Health Services Reason For Visit: HTN Discharge Diagnosis: Hypertensive Urgency Demand Ischemia Subtherapeutic INR Condition on Discharge: Fair Activity: Resume your previous activity Non-emergency contact: Primary Care Provider and Septic Tank Installer Call non-emergency contact if: you have any medication questions Follow-up/Referrals: Erlinda Haque MD [Primary Care Provider] - (office will call you with appt date/time) Diet: Heart Healthy Fluids: 1800ml (7 cups) Addtl Attending Provider Instructions: You were admitted for chest pain and shortness of breath due to elevated blood pressure Your medications were adjusted here and at discharge you will be on: Metoprolol 200mg twice a day Losartan 100mg daily Furosemide 40mg daily Amlodipine 5mg daily In addition, your INR (coumadin) levels were too low so your coumadin was increased to: Coumadin 5mg one time 2 Coumadin 2mg daily starting at 07/31 You need an INR check on 07/31 with results to your [facility] in [place] Pending Studies at Discharge: No Stand-Alone Forms: My [facility] [employer], Smoking Cessation Medications and DC Order Prescriptions: New amlodipine [Norvasc] 5 mg Tablet 5 mg PO QAM 60 Days Qty: 30 RF: 0 losartan 100 mg tablet 100 mg PO DAILY Qty: 30 RF: 0 warfarin 2 mg tablet 2 mg PO DAILY Qty: 30 RF: 0 Continued Prolia 60 mg/mL syringe 60 mg subcut ONCE RF: 0 (DME) Oxygen Home Liters Per Minute See Rx Instructions .ROUTE RF: 0 sucralfate [Carafate] 1 gram tablet 1 g PO BID RF: 0 digoxin 125 mcg (0.125 mg) tablet 125 mcg PO 5XWK RF: 0 acetaminophen [Tylenol Extra Strength] 500 mg tablet 500 mg PO QID PRN (Reason: Pain) RF: 0 atorvastatin 40 mg Tablet 40 mg PO HS RF: 0 cyanocobalamin (vitamin B-12) [Vitamin B-12] 1,000 mcg Tablet 1,000 mcg PO 3XWK RF: 0 duloxetine 20 mg Capsule,Delayed Release(Dr/Ec) 20 mg PO QAM RF: 0 latanoprost (PF) 0.005 % Drops 1 drp OPB HS RF: 0 ascorbic acid (vitamin C) [Vitamin C] 1,000 mg Tablet 1 g PO QAM RF: 0 aspirin [Aspirin Childrens] 81 mg Tablet,Chewable 81 mg PO DAILY RF: 0 furosemide 40 mg tablet 40 mg PO QAM RF: 0 lorazepam 0.5 mg tablet 0.5 mg PO TID PRN (Reason: Anxiety) RF: 0 sennosides-docusate sodium [Senexon-S] 8.6-50 mg tablet 2 tab PO HS RF: 0 metoprolol succinate 100 mg tablet extended release 24 hr 200 mg PO BID RF: 0 omeprazole 40 mg Capsule,Delayed Release(Dr/Ec) 40 mg PO DAILY RF: 0 aluminum-magnesium hydroxide 200-200 mg/5 mL Suspension 30 ml PO TID PRN (Reason: gi-upset) RF: 0 Discontinued warfarin 1 mg tablet 1 mg PO DIRECTED Qty: 30 RF: 0 warfarin 1 mg tablet 2 mg PO MOWEFR RF: 0 Discharge Orders: Discharge Order (Routine); Ordered 07/30/21 Ordered By: Keyonna Perez Admission Data Admit Date/Time: 07/28/21 14:30 Attending Provider: Keyonna Perez Admit Provider: Yogesh Tam Primary Care Provider: Erlinda Haque Other Providers: Yogesh Tma ; Darshan Hood ; Rafa Haider [facility] ; Juan Miguel Rivera Other Interventions: Discharge Summary Assessment (RN) Last Done: 07/30/21 16:39
[2021-07-31] MEDS ORDERED: WARFARIN SOD 2 MG TAB PO SCH (16:00)
== END 2021-07-30 18:00 | disposition home health service (06) | DRG 305 ==
LOC: 2S 18:14 → ED 18:14 → 2S 07-27 01:11 → SUATTDRO 07-28 14:30

== ENCOUNTER 2023-05-27 10:50 | Inpatient (IN) ==
--- NOTE | 2023-05-27 11:41 | Emergency Department Note ---
Impression & Plan Acute on chronic systolic heart failure, Hypoxia, Permanent atrial fibrillation, Hypomagnesemia ED Provider Note NAME: BETH BRIGHT AGE: 87 SEX: F : 1935 ARRIVES VIA: Ambulance INFORMANT: Patient ED PROVIDER(S): Mandeep Jenkins MD CHIEF COMPLAINT: Shortness of breath PLAN: Disposition: Admit MEDICAL DECISION MAKING: The patient is a pleasant 87-year-old woman with past medical history of hyperlipidemia, MARTI with home oxygen at night, atrial fibrillation on warfarin, tachybradycardia syndrome status post PPM, CKD, combined systolic and diastolic heart failure, venous insufficiency, malignant neoplasm of ascending colon status post hemicolectomy, GERD, anemia, history of PE and DVT on warfarin, CAD, history of PCI presents to the emergency department via EMS from home for evaluation of worsening shortness of breath over the past 2 weeks. She reports some congestion in her throat but denies any chest pain. She reports she was thinking to make an appointment to see her doctor for symptoms but decided her symptoms were worsening and came to the hospital. She denies nausea or vomiting. She denies any fevers. Denies any diarrhea or urinary symptoms. On evaluation the patient is chronically ill-appearing but no distress, afebrile with O2 saturation down to 87% on room air improving to mid 90s on 2 L nasal cannula. Heart is in the 100s and blood pressure stable. She appears euvolemic to hypervolemic. EKG demonstrates atrial fibrillation with RVR [address] abnormality similar to prior in setting of being on digoxin and no overt ST elevation. CXR with mild pulmonary edema. WBC and platelets within normal limits. H/H similar to prior. Chemistry without metabolic acidosis. Magnesium 1.6 with repletion initiated. LFTs unremarkable. High-sensitivity troponin 20.7, nonspecific in the setting of known systolic and diastolic heart failure, decreased from prior. BNP 980, nonspecific and in the setting of patient's known heart failure without prior for comparison. TSH within normal limits. Respiratory viral BioFire was negative. Given chest x-ray findings with pulmonary edema in setting of patient's history of CHF now with increased oxygen requirement suspect symptoms likely related to component of hypervolemia/CHF. Given new O2 requirement patient agrees with plan for admission for further management. IV Lasix ordered. Case was discussed with Tory Newman, Андрей PAC, [facility] will [facility] the patient for admission. Further management per admitting team. Triage Nursing notes reviewed and agree them. Prior/external medical records reviewed Vital Signs: reviewed Differential diagnosis: Reactive airway disease, pneumonia, pneumothorax, COPD, CHF, infections, cardiac ischemia, pulmonary embolism, musculoskeletal, gastrointestinal, as well as other pathologies. ER treatment provided: See below. Diagnostics interpreted by me: ECG: Atrial fibrillation with RVR, 103 bpm, no ectopy, no overt ST elevation, ST abnormality similar to prior in setting of being on digoxin. Cardiac Monitoring: An order for continuous cardiac monitoring was placed and demonstrated atrial fibrillation, 103 bpm, no ectopy. Laboratory studies: See below Imaging studies: See below Consultation(s): Tory Newman, [facility], with [facility] HPI: The patient is a pleasant 87-year-old woman with past medical history of hyperlipidemia, MARTI with home oxygen at night, atrial fibrillation on warfarin, tachybradycardia syndrome status post PPM, CKD, combined systolic and diastolic heart failure, venous insufficiency, malignant neoplasm of ascending colon status post hemicolectomy, GERD, anemia, history of PE and DVT on warfarin, CAD, history of PCI presents to the emergency department via EMS from home for evaluation of worsening shortness of breath over the past 2 weeks. She reports some congestion in her throat but denies any chest pain. She reports she was thinking to make an appointment to see her doctor for symptoms but decided her symptoms were worsening and came to the hospital. She denies nausea or vomiting. She denies any fevers. Denies any diarrhea or urinary symptoms. ROS: See above HPI for pertinent positives & negatives. A total of 10 systems reviewed and were otherwise negative. VITALS:See Below PHYSICAL EXAMINATION: GENERAL: Awake, alert, chronically-appearing, in no distress HENT: Normocephalic, atraumatic. Oropharynx unremarkable. EYES: Normal conjunctiva. Sclera non-icteric. NECK: Supple. No nuchal rigidity. FROM. No JVD. RESPIRATORY: Diminished breath sounds at the bases and otherwise clear to auscultation. CARDIAC: Regular rate, irregular rhythm. Extremities warm and well perfused. Pulses equal. ABDOMEN: Soft, non-distended. No tenderness to palpation. No rebound or guarding. No masses. RECTAL: Deferred. MUSCULOSKELETAL: Chest examination reveals no tenderness. The back is symmetrical on inspection without obvious abnormality. There is no CVA tenderness to palpation. No joint edema. LOWER EXTREMITIES: Calves are equal size bilaterally and non-tender. No edema. No discoloration. NEURO: Normal sensorium. No sensory or motor deficits noted. SKIN: No rash or jaundice noted. Mandeep Jenkins MD Past Med/Surg History Medical History (Updated 05/28/23 @ 03:47 by Mandeep Jenkins MD) Tachy-kraig syndrome Hx of basal cell carcinoma Superficial thrombophlebitis posterior right knee - monitoring with PCP currently. History of ganglion cyst NSVT (nonsustained ventricular tachycardia) pt unsure of details C. difficile diarrhea s/p hemicolectomy 04/2021 - no problems since. Chronic anticoagulation Pulmonary emboli pt denies -> states only had a DVT Venous insufficiency Closed fracture of facial bone Mitral valve disease Degenerative disc disease, lumbar Dyslipidemia CAD (coronary artery disease) Deep vein thrombosis (DVT) of right lower extremity s/p hemicolectomy 04/27/21 Osteoporosis Labile blood pressure hx of vasovagal syncope Hyperparathyroidism for conservative management Anxiety Paroxysmal atrial fibrillation Chronic diastolic heart failure Colon adenocarcinoma Diagnosed Dec 2020>surgery only Abnormal nuclear stress test Normal cardic catheterization in Mar 2020 Frequent falls last fall>a couple months ago, using cane Osteoarthritis Chronic kidney disease (CKD), stage III (moderate) follows with Dr. Butler GERD (gastroesophageal reflux disease) Glaucoma Depression Myocardial Infarction (~2005) follows with Poli Zepeda PA-C @ [facility]>2004 or 2006? Pacemaker (~2011) Medtronic Model: [id number] Dual-chamber last checked>10/05/22 Cardiac murmur History of COVID-19 diagnosed 02/2020 @ [facility]--fever, headache, cough, loss of taste/smell--no issues now Sleep apnea 2L N/C at hs Surgical History H/O colonoscopy with polypectomy H/O vein stripping Left leg History of esophagogastroduodenoscopy (EGD) Status post subtotal parathyroidectomy 2008 R inferior adenoma S/P right hemicolectomy d/t colon cancer History of partial hysterectomy History of dilatation and curettage History of facial surgery metal plate under left eye/left cheek S/P excision of lipoma History of arthroscopy of left knee History of colonoscopy History of tooth extraction all teeth History of parathyroidectomy partial @ [facility] [place] History of bilateral cataract extraction History of cardiac cath 2005 with 1 stent placed @ [facility] Family History Mother , 66yo Lymphoma Father Medical history unknown Brother Accident Brother Lung cancer Smoker Diabetes Hypertension Sister Heart disease Heart surgery Sister No problems noted. Sister Endometrial cancer Thyroid disease Sister Overdose Son COPD (chronic obstructive pulmonary disease) Diabetes Myocardial infarction Hypertension Son No problems noted. Son Throat cancer Hypertension Daughter Atrial fibrillation Daughter No problems noted. 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 How many Children do You have: 5 Other Information That Helps Us Care for You: No Feels Safe at Home: Yes Safety Concerns: Feels Safe At This Time Diet: regular caffeine: Yes (1 cup/day) during the past year weight has: remained stable Assistive Devices: Cane, Denture - Upper, Denture - Lower and Oxygen - at Night Allergies Allergies Allergy/AdvReac Type Severity Reaction Status Date / Time amiodarone Allergy Severe shortness Verified 12/09/22 10:17 of breath Iodinated Contrast Media Allergy Severe Wheezing Verified 12/09/22 10:17 Thiazides Allergy Severe wheezing Verified 12/09/22 10:17 alendronate sodium Allergy Intermediate Wheezing, Verified 12/09/22 10:17 shortness of breath. ibandronate sodium Allergy Intermediate trouble Verified 12/09/22 10:17 [From Boniva] swallowing red dye Allergy Intermediate Hives Verified 12/09/22 10:17 simvastatin Allergy Intermediate Muscle Verified 12/09/22 10:17 pain. morphine AdvReac Severe Confusion Verified 12/09/22 10:17 ezetimibe AdvReac Intermediate Muscle Verified 12/09/22 10:17 pain. erythromycin base AdvReac Mild Nausea Verified 12/09/22 10:17 metoprolol AdvReac Unknown must be Verified 12/09/22 10:18 caraco brand Home Meds Home Medications Medication Instructions Recorded Confirmed ascorbic acid (vitamin C) 1,000 mg 50 mg PO DAILY 01/13/21 05/27/23 tablet (Vitamin C) cyanocobalamin (vitamin B-12) 1,000 mcg PO 3XWK 01/13/21 05/27/23 1,000 mcg tablet (Vitamin B-12) latanoprost (PF) 0.005 % eye drops 1 drp OPB HS 01/13/21 05/27/23 aspirin 81 mg chewable tablet 81 mg PO QAM 05/21/21 05/27/23 (Aspirin Childrens) furosemide 40 mg tablet 20 mg PO .MON,TUE,Tuesday05/21/21 05/27/23 lorazepam 0.5 mg tablet 0.5 mg PO TID PRN Anxiety 05/21/21 05/27/23 Oxygen Home [id number] 06/18/21 05/27/23 acetaminophen 500 mg tablet 500 mg PO QID PRN Pain 06/18/21 05/27/23 (Tylenol Extra Strength) denosumab 60 mg/mL subcutaneous 60 mg subcut UD 06/18/21 05/27/23 syringe (Prolia) amlodipine 5 mg tablet 5 mg PO QAM 06/16/22 05/27/23 cholecalciferol (vitamin D3) 25 25 mcg PO QAM 06/16/22 05/27/23 mcg (1,000 unit) capsule (Vitamin D3) duloxetine 30 mg capsule,delayed 30 mg PO QAM 06/16/22 05/27/23 release losartan 100 mg tablet 100 mg PO QAM 06/16/22 05/27/23 metoprolol succinate 100 mg 150 mg PO BID 06/16/22 05/27/23 tablet,extended release 24 hr omeprazole 20 mg capsule,delayed 20 mg PO QAM 06/16/22 05/27/23 release warfarin 2 mg tablet 2 mg PO UD 06/16/22 05/27/23 atorvastatin 40 mg tablet 40 mg PO HS 12/01/22 05/27/23 sennosides 8.6 mg-docusate sodium 2 tab-cap PO HS PRN Constipation 05/27/23 05/27/23 50 mg capsule (Senna Plus) Results & Data (ED) Vital Signs Vital Signs - 24 hr 05/27/23 10:50 05/27/23 10:57 05/27/23 10:57 Temperature 36.8 C Temperature Source Oral Pulse Rate 96 H Pulse Rate from SpO2 Sensor Respiratory Rate 91 H Respiratory Effort / Characteristics Non-Labored Spontaneous Non-Labored Spontaneous Respiratory Depth Normal Blood Pressure 141/79 H Blood Pressure Mean 99 Pulse Oximetry 94 Oxygen Delivery Method Room Air Room Air Room Air Oxygen Flow Rate Sepsis Recent Fever Within 48 Hours No Sepsis New/Unexplained Change in Mental Status No Sepsis Action Taken by Nursing No Action Required 05/27/23 11:11 05/27/23 11:30 05/27/23 11:35 Temperature Temperature Source Pulse Rate 92 H 100 H Pulse Rate from SpO2 Sensor 96 H 106 H Respiratory Rate 26 H 28 H Respiratory Effort / Characteristics Respiratory Depth Blood Pressure 121/83 Blood Pressure Mean 95 Pulse Oximetry 83 L 91 87 L Oxygen Delivery Method Room Air Nasal Cannula Room Air Oxygen Flow Rate 2 Sepsis Recent Fever Within 48 Hours Sepsis New/Unexplained Change in Mental Status Sepsis Action Taken by Nursing 05/27/23 12:04 Temperature Temperature Source Pulse Rate 105 H Pulse Rate from SpO2 Sensor Respiratory Rate Respiratory Effort / Characteristics Respiratory Depth Blood Pressure Blood Pressure Mean Pulse Oximetry Oxygen Delivery Method Oxygen Flow Rate Sepsis Recent Fever Within 48 Hours Sepsis New/Unexplained Change in Mental Status Sepsis Action Taken by Nursing Laboratory Data Attestation: I reviewed the patient's lab results. 05/27/23 11:00 05/27/23 11:00 Lab Results 05/27/23 05/27/23 Range/Units 11:00 12:06 WBC 6.90 (4.8-10.8) K/ul RBC 3.77 L (4.20-5.40) M/uL Hgb 10.3 L (12.0-16.0) g/dl Hct 34.0 L (37.0-47.0) % MCV 90.2 (80.0-100.0) fL MCH 27.3 (25.0-34.0) pg MCHC 30.3 L (32.0-36.0) g/dL RDW Std Deviation 60.2 H (36.4-46.3) fL RDW Coeff of Nicholas 18.2 H (11.5-14.5) % Plt Count 149 (130-400) K/uL MPV 9.7 (9.4-12.4) fL Immature Gran % (Auto) 0.4 % Neut % (Auto) 76.0 % Lymph % (Auto) 9.9 % [place] % (Auto) 11.9 % Eos % (Auto) 1.2 % Baso % (Auto) 0.6 % Neut # (Auto) 5.25 (1.40-6.50) K/uL Lymph # (Auto) 0.68 L (1.20-3.40) K/uL [place] # (Auto) 0.82 H (0.11-0.59) K/uL Eos # (Auto) 0.08 (0.00-0.50) K/uL Baso # (Auto) 0.04 (0.00-0.20) K/uL Immature Gran # (Auto) 0.03 (0.01-0.20) K/uL PT 21.9 H (9.0-12.0) Seconds INR 2.1 H (0.9-1.1) Sodium 136 (136-145) mmol/L Potassium 4.1 (3.5-5.1) mmol/L Chloride 105 (98-107) mmol/L Carbon Dioxide 25 (21-32) mmol/L Anion Gap 6 (3-11) BUN 23 (6-23) mg/dl Creatinine 1.14 (0.6-1.2) mg/dl Est Cr Clr Drug Dosing 39.6 ml/min Est GFR ( Amer) 50.8 ml/min Est GFR (Non-Af Amer) 43.8 ml/min BUN/Creatinine Ratio 20.2 H (10-20) Glucose 111 H (70-99(Fasting)) mg/dl Calcium 10.4 H (8.6-10.3) mg/dl Phosphorus 3.3 (2.5-4.9) mg/dl Magnesium 1.6 L (1.7-2.4) mg/dl Total Bilirubin 1.7 H (0.2-1.0) mg/dl AST 15 (13-39) U/L ALT 11 (7-52) U/L Alkaline Phosphatase 51 (34-104) U/L Troponin I High Sens 18.4 H (0-14) pg/ml B-Natriuretic Peptide 982 H (0-100) pg/ml Total Protein 6.8 (6.0-8.3) gm/dl Albumin 3.9 (3.4-5.0) gm/dl Globulin 2.9 (2.5-4.0) gm/dl Albumin/Globulin Ratio 1.3 (0.9-2) Lipase 19 (11-82) U/L TSH 1.630 (0.300-4.500) uIu/ml Adenovirus (PCR) Not Detected (NotDetected) B. pertussis DNA (PCR) Not Detected (NotDetected) B.parapertussis DNA PCR Not Detected (NotDetected) C. pneumoniae DNA (PCR) Not Detected (NotDetected) Coronavirus OC43 (PCR) Not Detected (NotDetected) Coronavirus HKU1 (PCR) Not Detected (NotDetected) Coronavirus 229E (PCR) Not Detected (NotDetected) SARS-CoV-2 (PCR) Not Detected (NotDetected) Coronavirus NL63 (PCR) Not Detected (NotDetected) Human Metapneumovir PCR Not Detected (NotDetected) Influenza Type A (PCR) Not Detected (NotDetected) Influenza Type B (PCR) Not Detected (NotDetected) M. pneumoniae (PCR) Not Detected (NotDetected) Parainfluenza 1 (PCR) Not Detected (NotDetected) Parainfluenza 2 (PCR) Not Detected (NotDetected) Parainfluenza 3 (PCR) Not Detected (NotDetected) Parainfluenza 4 (PCR) Not Detected (NotDetected) RSV (PCR) Not Detected (NotDetected) Entero/Rhino (PCR) Not Detected (NotDetected) Administered Medications Acetaminophen (Acetaminophen 325 Mg Tab) 650 mg PO Q4H PRN PRN Reason: Pain or Fever Stop: 06/26/23 17:18 Last Admin: 05/28/23 03:14 Dose: 650 mg Documented By: Admin: 05/27/23 20:28 Dose: 650 mg Documented By: ANAND Aspirin (Aspirin 81 Mg Chew) 81 mg PO QAM [facility] Stop: 06/26/23 17:29 Last Admin: 05/27/23 18:10 Dose: 81 mg Documented By: ABRAHAM Atorvastatin Calcium (Atorvastatin 40 Mg Tab) 40 mg PO [facility] Stop: 06/26/23 20:59 Last Admin: 05/27/23 20:16 Dose: 40 mg Documented By: ANAND Latanoprost (Latanoprost 0.005% Op Soln 2.5 Ml Btl) 1 drops OP [facility] Stop: 06/26/23 20:59 Last Admin: 05/27/23 20:17 Dose: 1 drops Documented By: ANAND Metoprolol Succinate (Metoprolol Succ 50mg Ext Rel Tab) 150 mg PO BID [facility] Stop: 06/26/23 20:59 Last Admin: 05/27/23 23:37 Dose: 150 mg Documented By: ANAND Warfarin Sodium (Warfarin Sod 2 Mg Tab) 2 mg PO [id number] [facility] Stop: 06/26/23 17:59 Last Admin: 05/27/23 18:09 Dose: 2 mg Documented By: ABRAHAM Discontinued Medications Acetaminophen (Acetaminophen 500 Mg Tab) 1,000 mg PO NOW STA Stop: 05/27/23 13:55 Last Admin: 05/27/23 14:00 Dose: 1,000 mg Documented By: NEVA Digoxin (Digoxin 0.125 Mg Tab) 0.25 mg PO NOW ONE Stop: 05/27/23 17:01 Last Admin: 05/27/23 17:17 Dose: 0.25 mg Documented By: ABRAHAM Furosemide (Furosemide 40 Mg/4 Ml Vial) 40 mg IV ONE ONE Stop: 05/27/23 12:54 Last Admin: 05/27/23 13:11 Dose: 40 mg Documented By: NEVA Magnesium Sulfate/Dextrose (Magnesium Sulfate / D5w) 1 gm in 100 mls @ 100 mls/hr IV NOW STA Stop: 05/27/23 13:53 Last Infusion: 05/27/23 14:09 Dose: Infused Documented By: Admin: 05/27/23 13:09 Dose: 100 mls/hr Documented By: NEVA Losartan Potassium (Losartan Potassium 50 Mg Tab) 100 mg PO ONE ONE Stop: 05/27/23 14:45 Last Admin: 05/27/23 15:12 Dose: 100 mg Documented By: ABRAHAM Metoprolol Succinate (Metoprolol Succ 50mg Ext Rel Tab) 150 mg PO NOW STA Stop: 05/27/23 14:13 Last Admin: 05/27/23 14:36 Dose: 150 mg Documented By: NEVA Tramadol HCl (Tramadol Hcl 50 Mg Tablet) 50 mg PO NOW STA Stop: 05/27/23 17:27 Last Admin: 05/27/23 18:09 Dose: 50 mg Documented By: HJW Imaging Data Radiologist's Impression: Chest X-Ray 05/27/23 11:35 XR chest 1V portable HISTORY: Chest pain, nonspecific COMPARISON: Chest 07/26/2021. FINDINGS: No pneumothorax. The heart remains enlarged. There is progressive interstitial/vascular thickening consistent with mild pulmonary edema. There is a trace right pleural effusion. Left-sided dual-chamber pacemaker. No acute fractures identified. IMPRESSION: Cardiomegaly with mild interstitial pulmonary edema and a trace right pleural effusion. ACT 112: Negative or not required by law. Electronically signed by: Enrique Bennett M.D. 05/27/2023 12:49 PM Discharge Plan Visit Data Chief Complaint: Shortness of Breath/Dyspnea Stated Complaint: SOB ED Provider: Mandeep Jenkins Discharge Problem: Acute on chronic systolic heart failure, Hypoxia, Permanent atrial fibrillation, Hypomagnesemia Patient Disposition: Admitted As Inpatient Discharge Instructions Interventions: ED Discharge Assessment Last Done: 05/27/23 17:20
[2023-05-27 12:03] LABS: Basophils # (auto) 0.04 K/uL (0.00-0.20); Basophils % (auto) 0.6 %; Eosinophils # (auto) 0.08 K/uL (0.00-0.50); Eosinophils % (auto) 1.2 %; Hemoglobin 10.3 g/dl (12.0-16.0); Immature Granulocytes # (auto) 0.03 K/uL (0.01-0.20); Immature Granulocytes % (auto) 0.4 %; Lymphocytes # (auto) 0.68 K/uL (1.20-3.40); Lymphocytes % (auto) 9.9 %; Mean Corpuscular Hemoglobin 27.3 pg (25.0-34.0); Mean Corpuscular Hgb Conc 30.3 g/dL (32.0-36.0); Mean Corpuscular Volume 90.2 fL (80.0-100.0); Mean Platelet Volume 9.7 fL (9.4-12.4); Monocytes # (auto) 0.82 K/uL (0.11-0.59); Monocytes % (auto) 11.9 %; Neutrophils # (auto) 5.25 K/uL (1.40-6.50); Platelet Count 149 K/uL (130-400); RDW Coefficient of Variation 18.2 % (11.5-14.5); RDW Standard Deviation 60.2 fL (36.4-46.3); Red Blood Count 3.77 M/uL (4.20-5.40)
[2023-05-27 12:12] LABS: INR 2.1 (0.9-1.1); Prothrombin Time 21.9 Seconds (9.0-12.0)
[2023-05-27 12:27] LABS: Albumin Globulin Ratio 1.3 (0.9-2); Albumin Level 3.9 gm/dl (3.4-5.0); BUN Creatinine Ratio 20.2 (10-20); Bilirubin,Total 1.7 mg/dl (0.2-1.0); Calcium 10.4 mg/dl (8.6-10.3); Creatinine Clr Calc Pharmacy 39.6 ml/min; Est GFR (African American) 50.8 ml/min; Est GFR (Non-African American) 43.8 ml/min; Globulin 2.9 gm/dl (2.5-4.0); Magnesium 1.6 mg/dl (1.7-2.4); Phosphorus 3.3 mg/dl (2.5-4.9); Potassium 4.1 mmol/L (3.5-5.1); Total Protein 6.8 gm/dl (6.0-8.3)
[2023-05-27 12:32] LABS: Troponin I High Sensitivity 18.4 pg/ml (0-14)
[2023-05-27 12:41] LABS: Thyroid Stimulating Hormone 1.63 uIu/ml (0.300-4.500)
--- NOTE | 2023-05-27 12:51 | XRay Report ---
XR chest 1V portable HISTORY: Chest pain, nonspecific COMPARISON: Chest 07/26/2021. FINDINGS: No pneumothorax. The heart remains enlarged. There is progressive interstitial/vascular thi ckening consistent with mild pulmonary edema. There is a trace right pleural effusion. Left-sided nkechi l-chamber pacemaker. No acute fractures identified. IMPRESSION: Cardiomegaly with mild interstitial pulmonary edema and a trace right pleural effusion. ACT 112: Negative or not required by law. Electronically signed by: Enrique Bennett M.D. 05/27/2023 12:49 PM
[2023-05-27] MEDS: MAGNESIUM SULFATE / D5W 1 GM/100 ML BAG IV STA (13:09)
[2023-05-27] MEDS: FUROSEMIDE 40 MG/4 ML VIAL IV ONE (13:11)
--- NOTE | 2023-05-27 13:20 | History & Physical Report ---
Date of Service May 27, 2023 Assessment & Plan (1) Acute on chronic combined systolic and diastolic heart failure: Plan: Patient is 87 year old female with PMH HTN, dyslipidemia, CAD s/p PCI LAD in 2004, atrial fibrillation, tachybradycardia syndrome s/p pacemaker, history of DVT, PE, on chronic anticoagulation with warfarin, chronic CHF, CKD III, MARTI and hypoxemia on 2 L oxygen at bedtime, chronic pernicious anemia, depression, anxiety, venous insufficiency, GERD, others listed below presents to ER with c/o SOB and increased palpations x 2 weeks. Has been off digoxin since 03/2023 and has only been taking lasix 3 days a week In ER afebrile, pulse high 90s-100s, BP 141/79. In ER was noted pulse ox to drop to 83% on room air up to 97% on 2 L CXR: Cardiomegaly with mild interstitial pulmonary edema and a trace right pleural effusion. BNP: 982, Troponin: 18. No leukocytosis. Negative respiratory BioFire panel. INR: 2.1. TSH: 1.6 EKG: atrial fibrillation, rate 103, ST depression Suspect acute on chronic heart failure secondary to likely to A-fib RVR. low suspicion for acute dvt/pe secondary therapeutic INR In ER given 40 Lasix IV Hold home oral Lasix. Lasix 20 mg IV twice daily Supplemental oxygen as needed Trend troponin Echo Dose patients home metoprolol now Pacemaker interrogation Monitor I's and O's, daily weight, low-sodium diet Cardiology consult. Will defer to restarting digoxin to cardiology CBC, CMP in am (2) Hypomagnesemia: Plan: Magnesium: 1.6 In ER given magnesium sulfate 1GM IV Monitor (3) Permanent atrial fibrillation: Plan: Anticoagulated on warfarin Current HR 90's-low 100's Dose home metoprolol now Cardiology consult for recommendations on restarting digoxin Continue warfarin (4) CAD (coronary artery disease): Plan: s/p PCI LAD in 2004 Work up as above Continue aspirin, atorvastatin, metoprolol, losartan (5) Hypertension: Plan: Continue losartan, metoprolol, amlodipine (6) Dyslipidemia: Plan: Continue atorvastatin (7) Chronic kidney disease (CKD), stage III (moderate): Plan: Cr: 1.1. Baseline ~1.1 Monitor renal functions, avoid nephrotoxic agents when possible (8) History of DVT (deep vein thrombosis): Plan: Anticoagulated on warfarin INR: 2.1 Continue warfarin INR in am (9) Tachy-kraig syndrome: Plan: s/p pacemaker pacemaker interrogation (10) Anemia of chronic disease: Plan: Hgb:10.3. baseline 10-11 Continue vitamin B12 (11) MARTI (obstructive sleep apnea): Plan: Intolerant to cpap. Uses 2L O2 HS (12) Depression: (13) Anxiety: Plan: Continue duloxetine, lorazepam prn DVT Prophylaxis On warfarin, INR therapeutic Full Code as per discussion with pt Follows with Dr Wilburn for routine care Pt was seen and care coordinated with Dr Garcia. See addendum I spent a total of 78 minutes reviewing notes, outpatient records, labs, medication, coordinating, documenting and providing care for this patient excluding time spent in the performance of separately billed services. History of Present Illness Chief Complaint: SOB Primary Care Provider: Cathy Wilubrn MD Patient is 87 year old female with PMH HTN, dyslipidemia, CAD s/p PCI LAD in 2004, atrial fibrillation, tachybradycardia syndrome s/p pacemaker, history of DVT, PE, on chronic anticoagulation with warfarin, chronic CHF, CKD III, MARTI and hypoxemia on 2 L oxygen at bedtime, chronic pernicious anemia, depression, anxiety, venous insufficiency, GERD, others listed below presents to ER with c/o SOB x 2 weeks. History obtained from patient as well as outpatient chart review. Evaluated by cardiology on 03/31/2023 and it was recommended to hold digoxin and resume the following week at a reduced dose of 125 mcg on Wednesdays and Fridays (decreased from tuesday through tuesday dosing secondary to elevated digoxin level) and was also suggested to increase furosemide to 20 mg daily as patient was taking on MWF schedule. Patient states that she has stopped her digoxin and has been taking lasix 20mg on MWF as she does not like frequent urination. Reports sleeps with 2 pillows at baseline, has not noticed any increased orthopnea. Reports chronic leg swelling with right greater than left secondary to history of DVT. Reports had outpatient RLE Doppler recently that was negative for DVT. Patient states has been taking her warfarin as prescribed. She states her weight varies by 3 pounds and when takes Lasix states loses the 3 pounds the following day. Denies any CP. Reports history of chronic palpitations however states has noticed over the past month has been having increased palpitations. She feels over the past 2 weeks has had more frequent palpitations that are lasting up to 10 minutes and associated with shortness of breath, dizziness and feeling anxious. Patient states previously when palpitations would occur they would just last a few seconds and self resolved. Patient states last night had episode of palpitations that lasted approximately 10 minutes and had associated shortness of breath and was feeling anxious. Patient states she took lorazepam which helped with symptoms. Patient reports has had nasal congestion and postnasal drip for the past month. She states sometimes will cough but feels like she is expelling stuff from the "back of her throat". Yesterday and today reporting headache. Denies vision changes, paresthesias, speech changes. Denies fall or hitting head. Did not have morning meds today. Denies fever/chills, diaphoresis, N/V/D/C, syncope, vision changes, neck pain, hemoptysis, sore throat, choking, abdominal pain, paresthesias, weakness, rashes, urinary symptoms. Chart review: Cardiac cath 04/15/2021: Moderate nonobstructive coronary artery disease (40% proximal LAD, 50% mid LAD. Moderate to severe first septal, small second diagonal disease. Widely patent proximal to mid LAD stent. 40% proximal RCA, 40% mid RCA). 08/10/2022 echo: EF: 50-54%, septal motion is abnormal consistent with right ventricular pacemaker. Left atrium severely enlarged. Grade 2 diastolic dysfunction. Mild aortic valve regurgitation. Moderate to severe mitral regurgitation. Moderate tricuspid regurgitation present. Allergies Allergy/AdvReac Type Severity Reaction Status Date / Time amiodarone Allergy Severe shortness Verified 12/09/22 10:17 of breath Iodinated Contrast Media Allergy Severe Wheezing Verified 12/09/22 10:17 Thiazides Allergy Severe wheezing Verified 12/09/22 10:17 alendronate sodium Allergy Intermediate Wheezing, Verified 12/09/22 10:17 shortness of breath. ibandronate sodium Allergy Intermediate trouble Verified 12/09/22 10:17 [From Boniva] swallowing red dye Allergy Intermediate Hives Verified 12/09/22 10:17 simvastatin Allergy Intermediate Muscle Verified 12/09/22 10:17 pain. morphine AdvReac Severe Confusion Verified 12/09/22 10:17 ezetimibe AdvReac Intermediate Muscle Verified 12/09/22 10:17 pain. erythromycin base AdvReac Mild Nausea Verified 12/09/22 10:17 metoprolol AdvReac Unknown must be Verified 12/09/22 10:18 caraco brand Home Medications Medication Instructions Recorded Confirmed Type ascorbic acid (vitamin C) 1,000 mg 50 mg PO DAILY 01/13/21 05/27/23 History tablet (Vitamin C) cyanocobalamin (vitamin B-12) 1,000 mcg PO 3XWK 01/13/21 05/27/23 History 1,000 mcg tablet (Vitamin B-12) latanoprost (PF) 0.005 % eye drops 1 drp OPB HS 01/13/21 05/27/23 History aspirin 81 mg chewable tablet 81 mg PO QAM 05/21/21 05/27/23 History (Aspirin Childrens) furosemide 40 mg tablet 20 mg PO .MON,TUE,Tuesday05/21/21 05/27/23 History lorazepam 0.5 mg tablet 0.5 mg PO TID PRN Anxiety 05/21/21 05/27/23 History Oxygen Home [id number] 06/18/21 05/27/23 History acetaminophen 500 mg tablet 500 mg PO QID PRN Pain 06/18/21 05/27/23 History (Tylenol Extra Strength) denosumab 60 mg/mL subcutaneous 60 mg subcut UD 06/18/21 05/27/23 History syringe (Prolia) amlodipine 5 mg tablet 5 mg PO QAM 06/16/22 05/27/23 History cholecalciferol (vitamin D3) 25 25 mcg PO QAM 06/16/22 05/27/23 History mcg (1,000 unit) capsule (Vitamin D3) duloxetine 30 mg capsule,delayed 30 mg PO QAM 06/16/22 05/27/23 History release losartan 100 mg tablet 100 mg PO QAM 06/16/22 05/27/23 History metoprolol succinate 100 mg 150 mg PO BID 06/16/22 05/27/23 History tablet,extended release 24 hr omeprazole 20 mg capsule,delayed 20 mg PO QAM 06/16/22 05/27/23 History release warfarin 2 mg tablet 2 mg PO UD 06/16/22 05/27/23 History atorvastatin 40 mg tablet 40 mg PO HS 12/01/22 05/27/23 History sennosides 8.6 mg-docusate sodium 2 tab-cap PO HS PRN Constipation 05/27/23 05/27/23 History 50 mg capsule (Senna Plus) Past Med/Surg History Medical History (Updated 05/28/23 @ 03:47 by Mandeep Jenkins MD) Tachy-kraig syndrome Hx of basal cell carcinoma Superficial thrombophlebitis posterior right knee - monitoring with PCP currently. History of ganglion cyst NSVT (nonsustained ventricular tachycardia) pt unsure of details C. difficile diarrhea s/p hemicolectomy 04/2021 - no problems since. Chronic anticoagulation Pulmonary emboli pt denies -> states only had a DVT Venous insufficiency Closed fracture of facial bone Mitral valve disease Degenerative disc disease, lumbar Dyslipidemia CAD (coronary artery disease) Deep vein thrombosis (DVT) of right lower extremity s/p hemicolectomy 04/27/21 Osteoporosis Labile blood pressure hx of vasovagal syncope Hyperparathyroidism for conservative management Anxiety Paroxysmal atrial fibrillation Chronic diastolic heart failure Colon adenocarcinoma Diagnosed Dec 2020>surgery only Abnormal nuclear stress test Normal cardic catheterization in Mar 2020 Frequent falls last fall>a couple months ago, using cane Osteoarthritis Chronic kidney disease (CKD), stage III (moderate) follows with Dr. Butler GERD (gastroesophageal reflux disease) Glaucoma Depression Myocardial Infarction (~2005) follows with Poli Zepeda PA-C @ [facility]>2005 or 2006? Pacemaker (~2011) Medtronic Model: [id number] Dual-chamber last checked>10/05/22 Cardiac murmur History of COVID-19 diagnosed 02/2020 @ [facility]--fever, headache, cough, loss of taste/smell--no issues now Sleep apnea 2L N/C at hs Surgical History H/O colonoscopy with polypectomy H/O vein stripping Left leg History of esophagogastroduodenoscopy (EGD) Status post subtotal parathyroidectomy 2008 R inferior adenoma S/P right hemicolectomy d/t colon cancer History of partial hysterectomy History of dilatation and curettage History of facial surgery metal plate under left eye/left cheek S/P excision of lipoma History of arthroscopy of left knee History of colonoscopy History of tooth extraction all teeth History of [place] [facility] [place] History of bilateral cataract extraction History of cardiac cath 2005 with 1 stent placed @ [facility] Family History Mother , 66yo Lymphoma Father Medical history unknown Brother Accident Brother Lung cancer Smoker Diabetes Hypertension Sister Heart disease Heart surgery Sister No problems noted. Sister Endometrial cancer Thyroid disease Sister Overdose Son COPD (chronic obstructive pulmonary disease) Diabetes Myocardial infarction Hypertension Son No problems noted. Son Throat cancer Hypertension Daughter Atrial fibrillation Daughter No problems noted. 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 How many Children do You have: 5 Other Information That Helps Us Care for You: No Feels Safe at Home: Yes Safety Concerns: Feels Safe At This Time Diet: regular caffeine: Yes (1 cup/day) during the past year weight has: remained stable Assistive Devices: Oxygen - at Night and Walker Review of Systems Review of Systems: All systems reviewed & are unremarkable except as noted in HPI & below Physical Exam Physical Exam: General: no distress, WDWN Head: normocephalic, atraumatic Eyes: conjunctiva non-injected, anicteric ENT: normal inspection external ears, nose, mucous membranes moist Neck: supple, trachea midline, non-tender Lungs: no respiratory distress on current 2L via NC with O2 sats 96%, +rales bilateral bases CV: Irregularly irregular, rate 98, +murmur, + pretibial edema Abd: normal BS, soft, non-tender Ext: no cyanosis, no calf tenderness Neuro: A&O x 3, no focal deficits noted, normal affect Skin: warm, dry Results & Data Results & Data Vital Signs (Past 12 Hours) Vital Signs Temp Pulse Resp BP Pulse Ox O2 Del Method O2 Flow Rate 05/27/23 12:04 105 H 05/27/23 11:35 87 L Room Air 05/27/23 11:30 100 H 28 H 121/83 91 Nasal Cannula 2 05/27/23 11:11 92 H 26 H 83 L Room Air 05/27/23 10:57 Room Air 05/27/23 10:57 Room Air 05/27/23 10:50 36.8 C 96 H 91 H 141/79 H 94 Room Air Laboratory Results Short CBC 05/27/23 Range/Units 11:00 WBC 6.90 (4.8-10.8) K/ul Hgb 10.3 L (12.0-16.0) g/dl Hct 34.0 L (37.0-47.0) % Plt Count 149 (130-400) K/uL BMP 05/27/23 11:00 Sodium 136 Potassium 4.1 Chloride 105 Carbon Dioxide 25 BUN 23 Creatinine 1.14 Glucose 111 H Calcium 10.4 H Liver Function 05/27/23 Range/Units 11:00 Total Bilirubin 1.7 H (0.2-1.0) mg/dl AST 15 (13-39) U/L ALT 11 (7-52) U/L Alkaline Phosphatase 51 (34-104) U/L Albumin 3.9 (3.4-5.0) gm/dl Diagnostic Findings Chest X-Ray 05/27/23 11:35 XR chest 1V portable HISTORY: Chest pain, nonspecific COMPARISON: Chest 07/26/2021. FINDINGS: No pneumothorax. The heart remains enlarged. There is progressive interstitial/vascular thickening consistent with mild pulmonary edema. There is a trace right pleural effusion. Left-sided dual-chamber pacemaker. No acute fractures identified. IMPRESSION: Cardiomegaly with mild interstitial pulmonary edema and a trace right pleural effusion. ACT 112: Negative or not required by law. Electronically signed by: Enrique Bennett M.D. 05/27/2023 12:[address] 05/27/23 13:[address] DOSE: 1596.75 mGy.cm HISTORY: Headache, on warfarin TECHNIQUE: Multiaxial CT images of the head were performed without the use of intravenous contrast. Automated exposure control was utilized for this study. A dose lowering technique was utilized adhering to the principles of ALARA. Comparison: Head CT 05/22/2021 Findings: Postoperative changes again noted within the left orbit. The paranasal sinuses and mastoid air cells are clear. The calvarium and skull base are intact. There is no mass, hematoma, midline shift, acute infarct. White matter hypodensity is nonspecific but suggestive of microvascular ischemic change. The ventricles and sulci demonstrate mild age-related involutional changes. Impression: No significant change compared to the prior study. No acute intracranial abnormality. ACT 112: Negative or not required by law. Electronically signed by: Enrique Bennett M.D. 05/27/2023 2:27 PM Supervising Physician Co-Signing Physician Notes Patient seen and examined independently. Discussed with above provider. Presents with shortness of breath on minimal exertion. Recently, she has been decreasing the dose of Lasix that she was supposed to be on. Chest x-ray consistent with pulmonary edema Improvement of symptoms with IV diuretics. Continue IV diuretics; digoxin restarted as per cardiology Strict input output and output monitoring On physical exam; Constitutional: WD/WN, vitals as above, NAD, sitting up in bed, pleasant, conversing easily Respiratory: Bilateral crackles present at bases Cardiovascular: RRR, no murmur, no edema Vessels: no JVD or carotid bruit Chest: normal inspection of chest Abdomen: normal bowel sounds, soft, nontender, no hepatosplenomegaly Musculoskeletal: no cyanosis or clubbing, extremities motor strength 5/5 Skin: no rashes, warm and dry normal turgor Neurologic: PERRL, EOMI, accommodation nl, no face palsy, no dysarthria CN's II- XI intact bilaterally and moves all extremities Psychiatric: A+Ox3, euthymic affect I have reviewed the advanced practitioner's documentation, and I agree with, and take responsibility for the plan of care I spent a total of 20 minutes coordinating, documenting, and providing care for this patient excluding time spent in the performance of separately billed services. All of the aforementioned completed while collaborating with the assigned advanced practitioner for a full treatment plan (5) Hypertension Hypertension type: unspecified Qualified Code(s): I10 - Essential (primary) h ypertension
[2023-05-27 13:24] LABS: Adenovirus PCR Not Detected (NotDetected); Bordetella parapertussis PCR Not Detected (NotDetected); Bordetella pertussis PCR Not Detected (NotDetected); Chlamydia pneumoniae PCR Not Detected (NotDetected); Coronavirus 229E PCR Not Detected (NotDetected); Coronavirus CoV-2 (COVID19)PCR Not Detected (NotDetected); Coronavirus HKU1 PCR Not Detected (NotDetected); Coronavirus NL63 PCR Not Detected (NotDetected); Coronavirus OC43PCR Not Detected (NotDetected); Human Metapneumovirus PCR Not Detected (NotDetected); Influenza A PCR Not Detected (NotDetected); Influenza B PCR Not Detected (NotDetected); Mycoplasma pneumoniae PCR Not Detected (NotDetected); Parainfluenza Virus 1 PCR Not Detected (NotDetected); Parainfluenza Virus 2 PCR Not Detected (NotDetected); Parainfluenza Virus 3 PCR Not Detected (NotDetected); Parainfluenza Virus 4 PCR Not Detected (NotDetected); Respiratory Syncytial VirusPCR Not Detected (NotDetected); Rhinovirus/Enterovirus PCR Not Detected (NotDetected)
[2023-05-27] MEDS: ACETAMINOPHEN 500 MG TAB PO STA (14:00)
--- NOTE | 2023-05-27 14:28 | CT Scan Report ---
HEAD CT NONCONTRAST CT DOSE: 1596.75 mGy.cm HISTORY: Headache, on warfarin TECHNIQUE: Multiaxial CT images of the head were performed without the use of intravenous contrast. A utomated exposure control was utilized for this study. A dose lowering technique was utilized adheri ng to the principles of ALARA. Comparison: Head CT 05/22/2021 Findings: Postoperative changes again noted within the left orbit. The paranasal sinuses and mastoid air cells are clear. The calvarium and skull base are intact. There is no mass, hematoma, midline juliana ft, acute infarct. White matter hypodensity is nonspecific but suggestive of microvascular ischemic c hange. The ventricles and sulci demonstrate mild age-related involutional changes. Impression: No significant change compared to the prior study. No acute intracranial abnormality. ACT 112: Negative or not required by law. Electronically signed by: Enrique Bennett M.D. 05/27/2023 2:27 PM
[2023-05-27] MEDS: METOPROLOL SUCC 50MG EXT REL TAB PO STA (14:36)
[2023-05-27] MEDS: LOSARTAN POTASSIUM 50 MG TAB PO ONE (15:12)
--- NOTE | 2023-05-27 16:08 | Cardiology Consultation ---
Date of Consultation May 27, 2023 Assessment & Plan (1) Acute on chronic systolic heart failure: (2) Chronic kidney disease (CKD), stage III (moderate): (3) Permanent atrial fibrillation: (4) Pacemaker: (5) Sleep apnea: Uses nocturnal oxygen Plan 87-year-old female with known nonischemic cardiomyopathy, moderate to severe mitral tricuspid insufficiency and chronic systolic and diastolic heart failure. Patient presents with worsening symptoms of dyspnea increased heart rate and palpitations over several week. Notes reduction in oral diuretic dosing as an outpatient due to frequent urination Exam consistent with volume overload with elevated jugular venous distention chest x-ray with congestive heart failure. Patient presented hypoxic with improved symptoms with diuresis and oxygen supplementation Heart rate is elevated with recent discontinuation of digoxin 1 month ago due to laboratory level. Recommendations: Resume digoxin 0.25 mg p.o. today then 0.125 mg x 2 days then Tuesday IV diuresis till resolve of heart failure Continue metoprolol succinate 150 mg twice per day History of Present Illness Reason for Consultation: Shortness of breath, congestive heart failure Requesting Physician: Wilma Newman History of Present Illness Patient is a complex 87-year-old female with underlying cardiac concerns which include 1. 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 Permanent atrial fibrillation on chronic anticoagulation with warfarin 3. Coronary ischemic heart disease status post remote PCI to the LAD in 2004 4. April 15, 2021 Coronary Angiography ([facility], Dr. Lopez): Moderate nonobstructive coronary artery disease (40% proximal LAD, 50% mid LAD. Moderate to severe first septal, small second diagonal disease. Widely patent proximal to mid LAD stent. 40% proximal RCA, 40% mid RCA). Normal intracardiac filling pressure 5. Nonischemic cardiomyopathy 6. Systolic and diastolic heart failure chronic 7. Mitral regurgitation and tricuspid regurgitation 8. Sleep apnea and hypoxemia. Unable to tolerate CPAP. On supplemental oxygen at 2 L/min QHS. 9. Chronic venous insufficiency with remove vein stripping, with recurrent phlebitis/thrombophlebitis/cellulitis 10. DVT/PE probable 04/2021 anticoagulation resumed after lapse secondary to bleeding complication Patient presents now noting gradually worsening symptoms of palpitations and shortness of breath over the past 1 to 2 weeks. Does admit to having reduced and skipped diuretic doses due to increased urinary frequency. Notes no syncope or near syncope. Notes no chest pains. Aware of weight up and down with labile lower extremity edema and blood pressure. No fevers. Chills last night. No bleeding issues she is aware of. No headache or visual changes Remains moderately active though dyspneic with exertion Allergies Allergy/AdvReac Type Severity Reaction Status Date / Time amiodarone Allergy Severe shortness Verified 12/09/22 10:17 of breath Iodinated Contrast Media Allergy Severe Wheezing Verified 12/09/22 10:17 Thiazides Allergy Severe wheezing Verified 12/09/22 10:17 alendronate sodium Allergy Intermediate Wheezing, Verified 12/09/22 10:17 shortness of breath. ibandronate sodium Allergy Intermediate trouble Verified 12/09/22 10:17 [From [facility]anda] swallowing red dye Allergy Intermediate Hives Verified 12/09/22 10:17 simvastatin Allergy Intermediate Muscle Verified 12/09/22 10:17 pain. morphine AdvReac Severe Confusion Verified 12/09/22 10:17 ezetimibe AdvReac Intermediate Muscle Verified 12/09/22 10:17 pain. erythromycin base AdvReac Mild Nausea Verified 12/09/22 10:17 metoprolol AdvReac Unknown must be Verified 12/09/22 10:18 caraco brand Home Medications Medication Instructions Recorded Confirmed Type ascorbic acid (vitamin C) 1,000 mg 50 mg PO DAILY 01/13/21 05/27/23 History tablet (Vitamin C) cyanocobalamin (vitamin B-12) 1,000 mcg PO 3XWK 01/13/21 05/27/23 History 1,000 mcg tablet (Vitamin B-12) latanoprost (PF) 0.005 % eye drops 1 drp OPB HS 01/13/21 05/27/23 History aspirin 81 mg chewable tablet 81 mg PO QAM 05/21/21 05/27/23 History (Aspirin Childrens) furosemide 40 mg tablet 20 mg PO .MON,WED,Tuesday05/21/21 05/27/23 History lorazepam 0.5 mg tablet 0.5 mg PO TID PRN Anxiety 05/21/21 05/27/23 History Oxygen Home [id number] 06/18/21 05/27/23 History acetaminophen 500 mg tablet 500 mg PO QID PRN Pain 06/18/21 05/27/23 History (Tylenol Extra Strength) denosumab 60 mg/mL subcutaneous 60 mg subcut UD 06/18/21 05/27/23 History syringe (Prolia) amlodipine 5 mg tablet 5 mg PO QAM 06/16/22 05/27/23 History cholecalciferol (vitamin D3) 25 25 mcg PO QAM 06/16/22 05/27/23 History mcg (1,000 unit) capsule (Vitamin D3) duloxetine 30 mg capsule,delayed 30 mg PO QAM 06/16/22 05/27/23 History release losartan 100 mg tablet 100 mg PO QAM 06/16/22 05/27/23 History metoprolol succinate 100 mg 150 mg PO BID 06/16/22 05/27/23 History tablet,extended release 24 hr omeprazole 20 mg capsule,delayed 20 mg PO QAM 06/16/22 05/27/23 History release warfarin 2 mg tablet 2 mg PO UD 06/16/22 05/27/23 History atorvastatin 40 mg tablet 40 mg PO HS 12/01/22 05/27/23 History sennosides 8.6 mg-docusate sodium 2 tab-cap PO HS PRN Constipation 05/27/23 05/27/23 History 50 mg capsule (Senna Plus) Patient History Medical History Hx of basal cell carcinoma Superficial thrombophlebitis posterior right knee - monitoring with PCP currently. History of ganglion cyst NSVT (nonsustained ventricular tachycardia) pt unsure of details C. difficile diarrhea s/p hemicolectomy 04/2021 - no problems since. Chronic anticoagulation Pulmonary emboli pt denies -> states only had a DVT Venous insufficiency Closed fracture of facial bone Mitral valve disease Degenerative disc disease, lumbar Dyslipidemia CAD (coronary artery disease) Deep vein thrombosis (DVT) of right lower extremity s/p hemicolectomy 04/27/21 Osteoporosis Labile blood pressure hx of vasovagal syncope Hyperparathyroidism for conservative management Anxiety Paroxysmal atrial fibrillation Chronic diastolic heart failure Colon adenocarcinoma Diagnosed Dec 2020>surgery only Abnormal nuclear stress test Normal cardic catheterization in Mar 2020 Frequent falls last fall>a couple months ago, using cane Osteoarthritis Chronic kidney disease (CKD), stage III (moderate) follows with Dr. Butler GERD (gastroesophageal reflux disease) Glaucoma Depression Myocardial Infarction (~2005) follows with Poli Zepeda PA-C @ [facility]>2004 or 2006? Pacemaker (~2011) Medtronic Model: [id number] Dual-chamber last checked>10/05/22 Cardiac murmur History of COVID-19 diagnosed 02/2020 @ [facility]--fever, headache, cough, loss of taste/smell--no issues now Sleep apnea 2L N/C at hs Surgical History H/O colonoscopy with polypectomy H/O vein stripping Left leg History of arthroscopy of left knee History of bilateral cataract extraction History of cardiac cath 2005 with 1 stent placed @ [facility] History of colonoscopy History of dilatation and curettage History of esophagogastroduodenoscopy (EGD) History of facial surgery metal plate under left eye/left cheek History of parathyroidectomy partial @ [facility] History of partial hysterectomy History of tooth extraction all teeth S/P excision of lipoma S/P right hemicolectomy d/t colon cancer Status post subtotal parathyroidectomy 2009 R inferior adenoma Family History Mother , 66yo Lymphoma Father Medical history unknown Brother Accident Brother Lung cancer Smoker Diabetes Hypertension Sister Heart disease Heart surgery Sister No problems noted. Sister Endometrial cancer Thyroid disease Sister Overdose Son COPD (chronic obstructive pulmonary disease) Diabetes Myocardial infarction Hypertension Son No problems noted. Son Throat cancer Hypertension Daughter Atrial fibrillation Daughter No problems noted. 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 How many Children do You have: 5 Feels Safe at Home: Yes Diet: regular caffeine: Yes (1 cup/day) during the past year weight has: remained stable Assistive Devices: Cane, Denture - Upper, Denture - Lower and Oxygen - at Night Review of Systems Review of Systems: All systems reviewed & are unremarkable except as noted in HPI & below Physical Exam Constitutional: well developed; no acute distress Eyes: PERRL, conjunctivae normal, anicteric sclerae ENMT: external ear and nose normal, oropharynx normal Neck: trachea midline, no thyromegaly Respiratory: Auscultation: + rales (Bibasilar) Cardiovascular: Rate/Rhythm: + irregularly irregular Heart Sounds: + murmur Vessels: + JVD Extremities: + edema Gastrointestinal (Abdomen): normal bowel sounds, soft, nontender, no hepatosplenomegaly Musculoskeletal: no cyanosis or clubbing, extremities motor strength 5/5 Results & Data Vital Signs (Past 12 Hours) Vital Signs Temp Pulse Resp BP Pulse Ox O2 Del Method O2 Flow Rate 05/27/23 12:04 105 H 05/27/23 11:35 87 L Room Air 05/27/23 11:30 100 H 28 H 121/83 91 Nasal Cannula 2 05/27/23 11:11 92 H 26 H 83 L Room Air 05/27/23 10:57 Room Air 05/27/23 10:57 Room Air 05/27/23 10:50 36.8 C 96 H 91 H 141/79 H 94 Room Air Laboratory Results Laboratory Results - last 24 hr 05/27/23 05/27/23 05/27/23 11:00 12:06 14:03 WBC 6.90 RBC 3.77 L Hgb 10.3 L Hct 34.0 L MCV 90.2 MCH 27.3 MCHC 30.3 L RDW Std Deviation 60.2 H RDW Coeff of Nicholas 18.2 H Plt Count 149 MPV 9.7 Immature Gran % (Auto) 0.4 Neut % (Auto) 76.0 Lymph % (Auto) 9.9 [place] % (Auto) 11.9 Eos % (Auto) 1.2 Baso % (Auto) 0.6 Neut # (Auto) 5.25 Lymph # (Auto) 0.68 L [place] # (Auto) 0.82 H Eos # (Auto) 0.08 Baso # (Auto) 0.04 Immature Gran # (Auto) 0.03 PT 21.9 H INR 2.1 H Sodium 136 Potassium 4.1 Chloride 105 Carbon Dioxide 25 Anion Gap 6 BUN 23 Creatinine 1.14 Est Cr Clr Drug Dosing 39.6 Est GFR ( Amer) 50.8 Est GFR (Non-Af Amer) 43.8 BUN/Creatinine Ratio 20.2 H Glucose 111 H Calcium 10.4 H Phosphorus 3.3 Magnesium 1.6 L Total Bilirubin 1.7 H AST 15 ALT 11 Alkaline Phosphatase 51 Troponin I High Sens 18.4 H 20.7 H B-Natriuretic Peptide 982 H Total Protein 6.8 Albumin 3.9 Globulin 2.9 Albumin/Globulin Ratio 1.3 Lipase 19 TSH 1.630 Digoxin < 0.3 L Adenovirus (PCR) Not Detected B. pertussis DNA (PCR) Not Detected B.parapertussis DNA PCR Not Detected C. pneumoniae DNA (PCR) Not Detected Coronavirus OC43 (PCR) Not Detected Coronavirus HKU1 (PCR) Not Detected Coronavirus 229E (PCR) Not Detected SARS-CoV-2 (PCR) Not Detected Coronavirus NL63 (PCR) Not Detected Human Metapneumovir PCR Not Detected Influenza Type A (PCR) Not Detected Influenza Type B (PCR) Not Detected M. pneumoniae (PCR) Not Detected Parainfluenza 1 (PCR) Not Detected Parainfluenza 2 (PCR) Not Detected Parainfluenza 3 (PCR) Not Detected Parainfluenza 4 (PCR) Not Detected RSV (PCR) Not Detected Entero/Rhino (PCR) Not Detected Diagnostic Findings Pacemaker interrogation 04/26/2023 Normal device function, 11 months battery life, 73% ventricular pacing. Persistent atrial fibrillation
--- NOTE | 2023-05-27 16:16 | Electrocardiogram Report ---
Test Reason : Blood Pressure : / mmHG Vent. Rate : 103 BPM Atrial Rate : 000 BPM P-R Int : 000 ms QRS Dur : 098 ms QT Int : 352 ms P-R-T Axes : 000 000 234 degrees QTc Int : 461 ms Atrial fibrillation with rapid ventricular response Marked ST abnormality, possible inferior subendocardial injury Abnormal ECG When compared with ECG of 28-JUL-2021 06:08, Atrial fibrillation has replaced Electronic ventricular pacemaker Vent. rate has increased BY 36 BPM Confirmed by Joey Roberson ([id number]) on 05/27/2023 4:15:33 PM Referred By: Confirmed By:Joey Roberson
[2023-05-27] MEDS: DIGOXIN 0.125 MG TAB PO ONE (17:17)
[2023-05-27] MEDS: WARFARIN SOD 2 MG TAB PO SCH (18:09)
[2023-05-27] MEDS: traMADol HCL 50 MG TABLET PO STA (18:09)
[2023-05-27] MEDS: ASPIRIN 81 MG CHEW PO SCH (18:10)
[2023-05-27] MEDS: ATORVASTATIN 40 MG TAB PO SCH (20:16)
[2023-05-27] MEDS: LATANOPROST 0.005% OP SOLN 2.5 ML BTL OP SCH (20:17)
[2023-05-27] MEDS: METOPROLOL SUCC 50MG EXT REL TAB PO SCH (20:17)
[2023-05-27] MEDS: ACETAMINOPHEN 325 MG TAB PO PRN (20:28)
--- OUTSIDE RECORDS SUMMARY | 2023-05-27 20:45 | External Medical Summary | Summary of Care ---
Author Name Unknown Organization [facility] Address [address] [place] [address] Phone [phone] Care Team Providers Care Novelty Dipper Name Role Phone Cathy Wilburn MD Primary Care Provide r Reason for Referral * Evaluate & Treat - Unlimited Visits (Within 10 days (routine)) - Authorized Specialty Diagnoses / Procedures Referred By Contact Referred To Contact Cardiac Electrophysiology / Cardiology Diagnoses Cardiac pacemaker in situ Chronic atrial fibrillation (HCC) Aylin Hawkins PA-C [address] [place] [address] Referral ID Status Reason Start Date Expiration Date Visits Requested Visits Authorized [id number] Authorized Specialty Services Required 05/20/[phone] Question Answer Referral Priority Within 10 days (routine) Where should this appointment be scheduled? Андрей Comments Permanent atrial fibrillation. Likely symptomatic from high-dose beta-baron therapy needed to control rate. ? AV junction ablation and device upgrade. Reason for Visit * Reason Onset Date Comments Appointment 05/18/2023 Med Request 05/18/2023 Encounter Details Date Type Department Care Team (Late st Contact Info) Description 05/18/2023 Telephone Care Coordination and Integration [address] [place] [address] Kirsten Diaz RN [address] [place] [address] Appointment; Med Request Allergies Active Allergy Reactions Criticality Noted Date Comments Alendronate Sodium Wheezing High 12/15/2007 Wheezing,sob Amiodarone 04/14/2018 SOB Ibandronate Sodium Other (Please comment) Medium 06/05 Trouble swollowing Erythromycin Nausea/vomiting Low Upset stomach Iodinated Contrast Media Ren[place]30%--sneeze? Dye Metoprolol Tartrate Generic Lopressor/certain brand/must be [employer] brand Morphine And Related Psych complications High Confusion Red Dye Hives 11/22/2019 Thiazide-Type Diuretics Wheezing High Tenoretic--wheezing Ezetimibe Other (Please comment) Medium 02/04/2009 Muscle pain Simvastatin Other (Please comment) Medium 02/04/2009 Muscle pain documented as of this encounter (statuses as of 05/20/2023) Medications Medication Sig Dispensed Refills Start Date End Date Status denosumab (PROLIA) 60 MG/ML injection Inject 60 mg under the skin once. 1 Syringe 0 02/08/2017 Active oxygen GAS Use 2 L/min(Oxygen) as directed at bedtime. 0 Active Latanoprost 0.005 % Ophthalmic Solution (Xalatan) ONE DROP IN EACH EYE AT BEDTIME 2.5 mL 12 2021 Active Acetaminophen 325 MG Oral Tablet (Tylenol) Take by mouth 2 Tablets every 4 hours as needed for Fever >38C(100.5F), Pain, Mild, Pain, Moderate or Pain, Severe. 100 Tablet 1 2021 Active LORazepam 0.5 MG Oral Tablet (Ativan)Indications :Anxiety Take 1 Tablet (0.5 mg) by mouth every 8 hours as needed for Agitation or Anxiety. Take 1 Tablet by mouth daily as needed for Anxiety. 40 Tablet 0 02/05/2022 Active Cholecalciferol 25 MCG (1000 UT) Oral Capsule Take 2 Capsules by mouth as needed. 0 06/16/2022 Active Vitamin B-12 1000 MCG Oral Tablet (Cyanocobalamin)Ind ications:B12 deficiency TAKE 1 TABLET BY MOUTH ON TUESDAY, TUESDAY AND TUESDAY 30 Tablet 07/06/2022 Active Aspirin Low Dose 81 MG Oral Tablet Delayed Release (aspirin enteric coated) TAKE ONE TABLET IN THE MORNING 30 Tablet 11 07/06/2022 Active Benzonatate 100 MG Oral CapsuleIndications: Bronchitis, complicated Take 1 Capsule by mouth 3 times a day as needed for Cough. 30 Capsule 1 09/01/2022 Active Metoprolol Succinate ER 100 MG Oral Tablet Extended Release 24 Hour (toPROL XL)Indications:Paro xysmal atrial fibrillation (HCC) Take 1.5 Tablets by mouth in the morning and 1.5 Tablets before bedtime. 120 Tablet 5 10/18/2022 Active Warfarin Sodium 2 MG Oral Tablet (Jantoven) Take 1-2 Tablets by mouth every evening. 180 Tablet 1 12/31/2022 Active Atorvastatin Calcium 40 MG Oral Tablet (Lipitor)Indication s:Atherosclerosis of oneida coronary artery of one[place] heart without angina pectoris,Dyslipidem ia, goal LDL below 70 TAKE ONE TABLET AT BEDTIME 90 Tablet 0 03/04/2023 Active Omeprazole 20 MG Oral Capsule Delayed Release (PriLOSEC)Indicatio ns:Gastro-esophagea l reflux disease without esophagitis TAKE ONE CAPSULE BY MOUTH IN THE MORNING 90 Capsule 1 03/07/2023 Active Bladder Control Pads Ex AbsorbIndications:M ixed stress and urge urinary incontinence Daily use of urinary incontinence 72 Each 11 03/17/2023 Active Diclofenac Sodium 1 % External Gel (Voltaren)Indicatio ns:Acute bilateral low back pain without sciatica Apply to the affected area daily 350 g 2 03/17/2023 Active Vitamin C 500 MG Oral Capsule Take 1 Tablet by mouth every morning. 0 Active Furosemide 40 MG Oral Tablet (Lasix)Indications: Dependent edema Take 0.5 Tablets by mouth in the morning. Is taking every other day. 0 03/31/2023 Active DULoxetine HCl 30 MG Oral Capsule Delayed Release Particles (Cymbalta)Indicatio ns:Moderate episode of recurrent major depressive disorder (HCC) TAKE ONE CAPSULE BY MOUTH IN THE MORNING 90 Capsule 3 04/04/2023 Active Losartan Potassium 100 MG Oral Tablet (Cozaar) TAKE ONE TABLET BY MOUTH IN THE MORNING 90 Tablet 3 04/02/2023 Active amLODIPine Besylate 5 MG Oral Tablet (Norvasc) TAKE ONE TABLET BY MOUTH IN THE MORNING 90 Tablet 3 04/02/2023 Active Sennosides-Docusate Sodium 8.6-50 MG Oral Tablet (Senexon-S) Take 2 Tablets by mouth every night at bedtime. 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 stage 3b chronic kidney disease 08/10/2021 Overview: Per CKD protocol History of pulmonary embolism 07/22/2021 History of DVT (deep vein thrombosis) 07/22/2021 Overview: Distal RLE History of colon cancer 07/17/2021 Tachy-kraig syndrome 07/17/2021 Nonischemic cardiomyopathy 07/08/2021 LVH (left ventricular hypertrophy) 06/03/2021 Status post right hemicolectomy 05/12/2021 Chronic kidney disease, stage 3b 04/13/2021 Overview: Per CKD protocol History of unexplained bleeding 02/10/2021 Iron deficiency anemia 12/24/2020 Moderate episode of recurrent major depressive d isorder 2020 Mixed stress and urge urinary incontinence 05/08 Thrombophlebitis of superfic ial veins of left lower extremity 01/01/2020 History of falling 09/07/2019 Peripheral edema 09/07/2019 Pernicious anemia 11/22/2018 MARTI (obstructive sleep apnea) 04/27/2018 Primary osteoarthritis of both knees 12/23/2017 B12 deficiency 11/17/2017 Family history of von Willebrand disease 018 Paroxysmal atrial fibrillation 04/21/2017 Cardiac pacemaker in situ 04/19/2017 Encounter for long-term (cur rent) use of high-risk medication 02/08/2017 Multiple thyroid nodules 01/05/2017 Hx of nonmelanoma skin cancer 09/27/2016 Overview: basal cell carcinoma (upper central forehead) Chronic diastolic heart failure 03/06/2015 Dyslipidemia, goal LDL below 100 05/28/2014 Allergic rhinitis 10/06/2012 Varicose vein of leg 06/17/2012 Venous insufficiency 10/22/2009 Dyslipidemia, goal LDL below 70 10/09/2009 Anxiety state 05/02/2009 Degeneration of lumbosacral intervertebral disc 02/04/2009 Coronary atherosclerosis of one[place] coronary luis ry 02/24/2005 Senile osteoporosis 05/14/2003 Carpal tunnel syndrome 04/23/2003 Moderate mitral regurgitation GENERAL OSTEOARTHROSIS Gastroesophageal reflux disease without esophagi tis Vitamin D deficiency Hyperparathyroidism, primary documented as of this encounter (statuses as of 05/20/2023) Resolved Problems Problem Noted Date Diagnosed Date Resolved Date Stage 3 chronic kidney disease 03/17/2023 04/14/2023 Acute pulmonary embolism 07/17/2021 Chronic systolic heart failure 06/03/2021 06/03/2021 LAE (left atrial enlargement) 06/03/2021 08/26/2021 Overview: Duplicate DVT, lower extremity, distal, acute, right 06/03/2021 07/22/2021 Pulmonary embolism and infarction 06/03/2021 07/22/2021 Malignant neoplasm in situ of colon 05/12/2021 05/13/2021 Malignant neoplasm of ascending colon 05/12/2021 04/23/2022 Overview: S/P colectomy-No current treatment 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 stage 3a chronic kidney disease 04/13/2021 08/13/2021 Overview: Per CKD protocol Chronic kidney disease, stage 3a 07/08/2020 04/15/2021 Overview: Per CKD protocol Hyperparathyroidism 04/02/2020 06/26/19 21 Stage 3a chronic kidney disease 01/07/2020 06/12/2020 Overview: Per CKD protocol 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 diastolic congestive heart failure and stage 3a chronic kidney disease 01/07/202003/31 Overview: Per CKD protocol Thoracic aorta atherosclerosis 11/06/2019 03/17/2023 Acute post-hemorrhagic anemia 10/22/2019 02/10/2021 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 05/25/201801/09 Overview: Per CKD protocol MEDICATION USE AGREEMENT 02/08/201704/2019 Atrial fibrillation with RVR 07/30/2016 07/15/2017 Orthostatic hypotension 01/15/201606/28 Essential hypertension with goal blood pressure less than 140/90 11/24/2015 05/22/2020 Atypical chest pain 06/19/2015 06/03/19 17 Constipation 04/24/2015 02/08/2017 Kidney disease, chronic, sta ge III (GFR 30-59 ml/min) 04/08/2015 01/10/2020 Overview: Per CKD protocol Pericarditis 03/06/2015 11/24/2015 Encounter for surveillance of abnormal nevi 09/11/2014 05/29/2018 Overview: mildly dysplastic nevus (R thigh) HTN, goal below 140/90 05/28/201411/23 Hypertension goal BP (blood pressure) < 140/80 02/25/2014 05/28/2014 Osteoporosis 12/10/2013 12/23/2017 Localized, primary osteoarthritis of hand 02/04/2011 01/18/2012 Adjustment disorder with mix ed disturbance of emotions and conduct 05/02/2009 01/15/2015 ACTIVE CASE MANAGEMENT Carlie Santiago RN 03/18/2009 12/15/2009 HTN, goal below 130/80 02/04/200905/28 Dyslipidemia, goal LDL below 100 02/04/2009 10/09/2009 Overview: Per Lipid Taxonomy. HTN, goal below 140/90 01/03/200902/04 Overview: Modified per HTN Taxonomy. Hyperparathyroidism 07/02/2008 10/02/19 09 Overview: RLP Parathyroid adenoma resection Benjy Gonzalez, July 02, 2008 ICD-10 update of inactive term Slow transit constipation 02/09/2008 Postmenopausal atrophic vaginitis 02/09/2008 07/15/2017 Hypercalcemia 07/14/2005 05/22/2007 PVC (premature ventricular contraction) 05/26/2005 04/21/2017 Ischemic cardiomyopathy 02/25/200507/29 ADVANCE DIRECTIVE INFORMATION 02/24/2005 02/08/2017 Overview: No, Advance Directive brochure given to patient at prior appointment. OSTEOARTHROS NOS-L-LEG 05/26/200406/20 TENOSYNOV HAND-WRIST NEC 04/23/2003 CERVICAL 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 LOC PRIM [id number] 02/14/20022 04/2007 Other seborrheic keratosis 10/31/2001 0 06/06/2007 neurofibroma 10/31/2001 06/06/2007 BENIGN NEOPLASM SKIN NOS 10/25/200109/2007 Pain in limb 07/29/2001 05/22/2007 Need for prophylactic hormon e replacement therapy (postmenopausal) 11/18/2000 05/22/2007 Reflux esophagitis 11/18/2000 8 SBE (subacute bacterial endo carditis) prophylaxis candidate 06/06/2007 Mitral valve disorder 2012 DIFFUS CYSTIC MASTOPATHY 09/2007 BENIGN NEOPLASM LG BOWEL 01/2017 BENIGN HYPERTENSION 01/04/20 09 Overview: Modified per HTN Taxonomy. Menopause 05/22/2007 GANGLION OF TENDON 8 Atrial premature beats 07/15 Paroxysmal atrial tachycardia 10/28/2016 FX FACIAL BONE NEC-CLOSE Syncope and collapse 008 Asthma with severity to be determined 10/22/2009 Overview: ICD-10 update of inactive term BENIGN PARXYSMAL VERTIGO 06/2016 Other specified causes of urethral stricture 06/06/2007 History of skin cancer 02/08 Tachycardia 05/22/2007 Mixed dyslipidemia 9 Overview: Per Lipid Taxonomy. Vitamin B deficiency 014 documented as of this encounter (statuses as of 05/20/2023) Immunizations Name Administration Dates Next Due Pneumococcal Conjugate Vacc, 13 Valent (Prevnar) 02/08/2017 Pneumococcal Polysaccharide PPV23 (Pneumovax) Seasonal Influenza, Split, IIV3, With Preserve, Inj 03/13/2012 TD - Tetanus/Diptheria (ADULT) 12/30/2009,2002 TD, Preservative Free 12/30/2009 documented as of this encounter Social History Tobacco Use Types Packs/Day Years Used Date Smoking Tobacco: Never Smokeless Tobacco: Never Alcohol Use Standard Drinks/Week Comments Not Currently 0 (1 standard drink = 0.6 oz pur e alcohol) PHQ-2 Answer Date Recorded PHQ Adult Total Score 4 05/30/2020 Hunger Vital Sign Answer Date Recorded Within the past 12 months, y ou worried that your food would run out before you got the money to buy more. Never true 02/09/20 22 Within the past 12 months, t he food you bought just didn't last and you didn't have money to get more. Never true 02/08/2022 Sex and Gender Information Value Date Recorded Sex Assigned at Not on file Gender Identity Not on file Sexual Orientation Straight 05/30/2020 11 :18 AM EDT Job Start Date Occupation Industry Not on file Not on file Not on file documented as of this encounter Functional Status Functional Status Response Date of Assess ment Are you deaf or do you have serious difficulty h earing? No 04/11/2017 Are you blind or do you have serious difficulty seeing, even when wearing glasses? No 04/11/2017 Do you have serious difficul ty walking or climbing stairs? (5 years old or older) No 04/11/2017 Do you have difficulty dress ing or bathing? (5 years old or older) No 04/11/2017 Because of a physical, menta l, or emotional condition, do you have difficulty doing errands alone such as visiting a doctor s office or shopping? (15 years old or older) No 04/11/19 18 Cognitive Status Response Date of Assessm ent Because of a physical, menta l, or emotional condition, do you have serious difficulty concentrating, remembering, or making decisions? (5 years old or older) No 04/11/2017 documented as of this encounter Miscellaneous Notes * Telephone Encounter - Mary Jane Ya OSA - 05/20/2023 1:12 PM EDT Spoke with Pt, EP appointment scheduled July 21. * Telephone Encounter - Kirsten Diaz RN - 05/20/2023 1:05 PM EDT THIS PATIENT IS NOT ACTIVE WITH CASE MANAGEMENT. Please forward messages to cardiology nurses or family practice nurses. Thank you. * Addendum Note - Aylin Hawkins PA-C - 05/20/2023 11:41 AM EDTAddended by: AYLIN HAWKINS on: 05/20/2023 11:41 AM Modules accepted: Orders * Telephone Encounter - Aylin Hawkins PA-C - 05/20/2023 11:40 AM EDT Patient with chronic complaints of significant fatigue/no energy, on high-dose beta baron therapy, chronically in atrial fibrillation. If patient is now willing, agree with electrophysiology referral to discuss AV junction ablation and device upgrade Aylin Hawkins PA-C Department of Cardiology * Telephone Encounter - Mary Jane Ya OSA - 05/20/2023 8:43 AM EDT Spoke with Pt, pacer check scheduled May [facility] at [facility]. Referral needs placed for EP. * Telephone Encounter - Kirsten Diaz RN - 05/18/2023 4:42 PM EDT THIS PATIENT IS NOT ACTIVE WITH CASE MANAGEMENT. For PCP: Patient reporting: -sinus drainage, yellow -post nasal drip -sore throat -increased difficulty swallowing due to sore throat, feels swollen -denies fever Asking for something to be called in to [facility]. Please let patient know if something is called in. Thank you. * Telephone Encounter - Kirsten Diaz RN - 05/18/2023 4:38 PM EDT THIS PATIENT IS NOT ACTIVE WITH CASE MANAGEMENT. For cardiology: Patient reports Aylin told her she is to have her pacemaker interrogated. She has not received an appointment? Please call patient to schedule. Thank you. Patient is experiencing palpitations, increased edema, and increased shortness of breath. Also not on 05/12 encounter - JULIO Teixeira wanted patient referred to electrophysiology. documented in this encounter Plan of Treatment Upcoming Encounters Date Type Department Care Team (Late st Contact Info) Description 05/26/2023 1:30 PM EDT Cardiac Studies Cardiology [address] [place] [address] [facility] Pacer [address] [address] 05/27/2023 8:40 AM EDT Laboratory Lab Mobile Phlebotomy [facility] [address] [place] [address] [facility] Home Draw [address] [place] [address] 05/30/2023 6:00 AM EDT Anticoagulation Pharmacy Call Center [phone] [facility] [place] [address] [facility] [address] [facility] [place] [address] 06/08/2023 2:00 PM EDT Laboratory Laboratory [address] [place] [phone] [place] [address] 06/15/2023 2:30 PM EDT Office Visit Hematology/Oncology Anthony Pacheco [place] [address] [place] [phone] Matt Faustin MD [address] [place] [address] 06/24/2023 2:30 PM EDT Nurse Only Rheumatology [address] [place] [phone] [place], Nurse [address] [place] [phone] 07/22/2023 11:45 AM EDT Office Visit Cardiology, [facility] [address] [place] [address] Elda Patterson, DO [address] [place] [address] 08/11/2023 1:00 PM EDT Office Visit Cardiology [address] [place] [address] Aylin Hawkins PA-C [address] [place] [address] 09/06/2023 1:00 PM EDT Laboratory Laboratory [address] [place] [phone] [place], Lab [address] [place] [address] 09/29/2023 10:00 AM EDT Office Visit Family Medicine [address] [place] [phone] Cathy Wilburn MD [address] [place] [address] [place] [address] 10/12/2023 3:00 PM EDT Office Visit Sleep Disorders [facility] [address] [place] [phone] Isabel Dilalo DO [address] [place] [address] 01/06/2024 2:00 PM EST Office Visit Nephrology [address] [place] [address] Charlotte Cope PA-C [address] [place] [address] 01/23/2024 2:20 PM EST Office Visit Dermatology [address] [place] [address] Amber Orozco PA-C [address] [place] [address] [place] [address] Scheduled Referrals Name Type Priority Associated Diagnoses Orde r Schedule ELECTROPHYSIOLOGY REFERRAL OP Referral Within 10 days (routine) Cardiac pacemaker in situ Chronic atrial fibrillation (HCC) Ordered: 05/20/2023 Health Maintenance Due Date Last Done Comments Depression Screening 05/30/2021 05/30/2020 COVID-19 Vaccine ( season) 2022 Albumin/Creatinine Ratio 07/20/2023 023, 04/06/2021, 05/30/2020, Additional history exists DXA Scan 10/22/2023 10/21/2021, 09/29, 08/28/2018, Additional history exists CKD PHOS USE SMARTSET 58460 05/11/202404/28, 11/05/2022, 04/14/2022, Additional history exists CKD HGB USE SMARTSET 91844 05/15/202405/15, 05/16/2023, 03/17/2023, Additional history exists DTaP,Tdap,and Td Vaccines (2 - Td or Tdap) 12/31/2029 01/01/2020 (Declined), 12/30/2009, 12/30/2009, Additional history exists Pneumococcal Vaccine: 65+ Years Completed 02/08/2017, 02/23/2006 VITAMIN D LEVEL ONCE IN A LIFETIME-USE SMARTSET# [id number] Completed 05/12/2023, 11/05/2022, 04/14/2022, Additional history exists GARDASIL-HPV IMMUNIZATION SERIES Aged Out No longer eligible based on patient's age to complete this topic Hepatitis B Aged Out No longer eligi ble based on patient's age to complete this topic MENINGOCOCCAL (MENACTRA/MENVEO) Aged Out No longer eligible based on patient's age to complete this topic Zoster Vaccines Discontinued documented as of this encounter Medical Devices Implanted Type Area Hotel Services Supervisor Device Identifier Shelf Expiration Date Model / Serial / Lot Lead Novus Bipolar 58cm - [id number] - [id number] Implanted:Qty: 1 on 04/11/2017 by Elda Patterson DO at OR [facility] Left: Heart [employer] : [facility] 12/18/2018 5076-58 / [id number] / Description:RIGHT VENTRICLE LEAD Lead Novus Bipolar 52cm - [id number] - [id number] Implanted:Qty: 1 on 04/11/2017 by Elda Patterson DO at OR [facility] Left: Heart [employer] : [facility] 12/24/2018 5076-52 / [id number] / Description:RIGHT ATRIAL ROCKY D Pacer Advisa Dr Dorsey - [id number] - [id number] Implanted:Qty: 1 on 04/11/2017 by Elda Patterson DO at OR [facility] Left: Chest [employer] 08/25/2018 [id number] / [id number] / documented as of this encounter Visit Diagnoses Diagnosis Cardiac pacemaker in situ- Primary Chronic atrial fibrillation (HCC) Atrial fibrillation documented in this encounter Advance Directives Documents on File Type Date Recorded Patient Production Gear Cutter Expl anation POLST 01/05/2021 [place] [facility] FOR LIFE-SUSTAINING TREATMENT Latest Code Status on File Code Status Date Activated Date Inactivated Comments Full Code 07/02/2008 9:35 AM 07/03/2008 5:40 PM Care Teams Novelty Dipper Relationship Specialty Start Date End Date Cathy Wilburn MD [address] [place] [address] [place] [phone] PCP - General Family Medicine 12/03/22 documented as of this encounter
--- OUTSIDE RECORDS SUMMARY | 2023-05-27 20:46 | External Medical Summary | Summary of Care ---
Author Name Unknown Organization [facility] Address [address] [place] [address] Phone [phone] Care Team Providers Care Vp Clinical Research Name Role Phone Cathy Wilburn MD Primary Care Provide r Reason for Visit * Reason Onset Date Comments Appointment 05/18/2023 Med Request 05/18/2023 Encounter Details Date Type Department Care Team (Late st Contact Info) Description 05/18/2023 Telephone Care Coordination and Integration [address] [place], [place] [phone] Kirsten Diaz RN [address] [place], [place] [phone] Appointment; Med Request Allergies Active Allergy Reactions [...] as of this encounter (statuses as of 05/19/2023) Medications Medication Sig Dispensed Refills Start Date [...] 40 MG Oral Tablet (Lipitor)Indication s:Atherosclerosis of [place] coronary artery of [place] heart without angina pectoris,Dyslipidem ia, goal LDL [...] as of this encounter (statuses as of 05/19/2023) Active Problems Problem Noted Date Diagnosed Date [...] lumbosacral intervertebral disc 02/04/2009 Coronary atherosclerosis of [place] coronary luis ry 02/24/2005 Senile osteoporosis 05/14/2003 Carpal tunnel syndrome 04/23/2003 Moderate mitral regurgitation GENERAL OSTEOARTHROSIS Gastroesophageal reflux disease without esophagi tis Vitamin D deficiency Hyperparathyroidism, primary documented as of this encounter (statuses as of 05/19/2023) Resolved Problems Problem Noted Date Diagnosed Date [...] Modified per HTN Taxonomy. Hyperparathyroidism 07/02/2008 10/02/19 Overview: RLP Parathyroid adenoma resection Benjy Gonzalez, [...] 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 LOC PRIM [id number] 02/14/200205/30 Other seborrheic keratosis 10/31/2001 0 06/06/2007 neurofibroma [...] as of this encounter (statuses as of 05/19/2023) Immunizations Name Administration Dates Next Due Pneumococcal Conjugate Vacc, 13 Valent (Prevnar) 02/08/2017 Pneumococcal Polysaccharide PPV23 (Pneumovax) Seasonal Influenza, Split, IIV3, With Preserve, Inj 03/13/2012 TD - Tetanus/Diptheria (ADULT) 12/30/2009 TD, Preservative Free 12/30/2009 documented as of [...] encounter Miscellaneous Notes * Telephone Encounter - Kirsten Diaz RN - 05/18/2023 4:42 PM EDT THIS PATIENT IS NOT ACTIVE WITH CASE MANAGEMENT. For PCP: Patient reporting: -sinus drainage, yellow -post nasal drip -sore throat -increased difficulty swallowing due to sore throat, feels swollen -denies fever Asking for something to be called in to [facility]. Please let patient know if something is called in. Thank you. * Telephone Encounter - Kirsten Diaz RN - 05/18/2023 4:38 PM EDT THIS PATIENT IS NOT ACTIVE WITH CASE MANAGEMENT. For cardiology: Patient reports Poli told her she is to have her [...] Care Team (Late st Contact Info) Description 05/27/2023 8:40 AM EDT Laboratory Lab Mobile Phlebotomy [facility] [address] [place] [address] [facility] Draw [address] [place] [address] 05/30/2023 6:00 AM EDT Anticoagulation Pharmacy Call Center WB [address] [facility] [place] [address] [facility] 58 60 [facility] [place] [address] 06/08/2023 2:00 PM EDT Laboratory Laboratory [address] [place] [phone] [place], Lab [address] [place] [address] 06/15/2023 2:30 PM EDT Office Visit Hematology/Oncology [facility] [address] [place] [phone] Matt Faustin MD [address] [place] [address] 06/24/2023 2:30 PM EDT Nurse Only Rheumatology [address] [place] [address] [place], Nurse Rheum [address] [place] [address] 08/02/2023 12:00 PM EDT Office Visit Cardiology [address] [place] [address] Poli Zepeda PA-C [address] [place] [address] 09/06/2023 1:00 PM EDT Laboratory Laboratory [address] [place] [phone] [place], Lab [address] [place] [address] 09/29/2023 10:00 AM EDT Office Visit Family Medicine [address] [phone] Cathy Wilburn MD [address] [place] [address] [place] [address] 10/12/2023 3:00 PM EDT Office Visit Sleep Disorders Ctr [facility] [address] [place] [phone] Isabel Diallo DO [address] [place] [address] 01/06/2024 2:00 PM EST Office Visit Nephrology [address] [place] [address] ZeCharlotte coleman PA-C [address] [place] [address] 01/23/2024 2:20 PM EST Office Visit Dermatology [address] [place] [address] Amber Orozco, PAJuanC [address] [place] [address] [place] [address] Health Maintenance Due Date Last Done Comments Depression Screening 05/30/2021 05/30/2020 COVID-19 Vaccine ( season) 2022 Albumin/Creatinine Ratio 07/20/2023 023, 04/06/2021, 05/30/2020, Additional history exists DXA Scan 10/22/2023 10/21/2021, 09/29, 08/28/2018, Additional history exists CKD PHOS USE SMARTSET 04728 05/11/202404/28, 11/05/2022, 04/14/2022, Additional history exists CKD HGB USE SMARTSET 03575 05/15/202405/15, 05/16/2023, 03/17/2023, Additional history exists DTaP,Tdap,and Td Vaccines (2 - Td or Tdap) 12/31/2029 01/01/2020 (Declined), 12/30/2009, 12/30/2009, Additional history exists Pneumococcal Vaccine: 65+ Years Completed 02/08/2017, 02/23/2006 VITAMIN D LEVEL ONCE IN A LIFETIME-USE SMARTSET# 68260 Completed 05/12/2023, 11/05/2022, 04/14/2022, Additional history exists [...] this encounter Medical Devices Implanted Type Area Uranium Processing Supervisor Device Identifier Shelf Expiration Date Model / Serial / Lot Lead Novus Bipolar 58cm - [id number] - [id number] Implanted:Qty: 1 on 04/11/2017 by Elda Patterson DO at OR [facility] Left: Heart [employer] : [facility] 12/18/2018 5076-58 / [id number] / Description:RIGHT VENTRICLE LEAD Lead Novus Bipolar 52cm - [id number] - [id number] Implanted:Qty: 1 on 04/11/2017 by Elda Patterson DO at OR [facility] Left: Heart [employer] : [facility] 12/24/2018 5076-52 / [id number] / Description:RIGHT ATRIAL ROCKY D Pacer Advisa Dr Dorsey - [id number] - [id number] Implanted:Qty: 1 on 04/11/2017 by Elda Patterson DO at OR [facility] Left: Chest [employer] 08/25/2018 A2DR01 / [id number] / documented as of this encounter Advance Directives Documents on File Type Date Recorded Patient Care Technician Expl anation POL 01/05/2021 [place] OR [facility] FOR LIFE-SUSTAINING TREATMENT Latest Code Status on File Code Status Date Activated Date Inactivated Comments Full Code 07/02/2008 9:35 AM 07/03/2008 5:40 PM Care Teams Vp Clinical Research Relationship Specialty Start Date End Date Cathy Wilburn MD [address] [place] [address] [place] [phone] PCP - General Family Medicine 12/03/22 documented as of this encounter
--- OUTSIDE RECORDS SUMMARY | 2023-05-27 20:46 | External Medical Summary ---
Author Name Unknown Address Unknown Organization K01:LABORATORY [facility] - [address] [facility] [address] [place] [address] Laboratory Report Ordering Provider Test Date Status ABIGAIL CHAVIRA 05/16/2023 14:43:14 Final Observation Date Value Abnormality Reference (Units ) Status TSH 05/16/2023 14:43:14 4.93 Above high normal 0. 27-4.20 (uIU/mL) Final Performing Location LABORATORY [facility] - [address] [place] [address]
--- OUTSIDE RECORDS SUMMARY | 2023-05-27 20:46 | External Medical Summary | Summary of Care ---
Author Name Unknown Organization [facility] Address [address] [place] [address] Phone [phone] Care Team Providers Care Dimensional Engineer Name Role Phone Cathy Wilburn MD Primary Care Provide r Reason for Visit * Reason Onset Date Comments Test Results Lab 05/13/2023 Encounter Details Date Type Department Care Team (Late st Contact Info) Description 05/13/2023 Telephone Family [address] [place] [phone] Fany Jackson [address] [place] [address] Test Results Lab Allergies Active Allergy Reactions Criticality Noted Date [...] as of this encounter (statuses as of 05/13/2023) Medications Medication Sig Dispensed Refills Start Date [...] 40 MG Oral Tablet (Lipitor)Indication s:Atherosclerosis of [place] coronary artery of [place] heart without angina pectoris,Dyslipidem ia, goal LDL [...] as of this encounter (statuses as of 05/13/2023) Active Problems Problem Noted Date Diagnosed Date [...] lumbosacral intervertebral disc 02/04/2009 Coronary atherosclerosis of [place] coronary luis ry 02/24/2005 Senile osteoporosis 05/14/2003 Carpal tunnel syndrome 04/23/2003 Moderate mitral regurgitation GENERAL OSTEOARTHROSIS Gastroesophageal reflux disease without esophagi tis Vitamin D deficiency Hyperparathyroidism, primary documented as of this encounter (statuses as of 05/13/2023) Resolved Problems Problem Noted Date Diagnosed Date [...] 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 LOC PRIM [id number] 02/14/200205/30 Other seborrheic keratosis 10/31/2001 0 06/06/2007 [...] as of this encounter (statuses as of 05/13/2023) Immunizations Name Administration Dates Next Due Pneumococcal [...] encounter Miscellaneous Notes * Telephone Encounter - Faviola Sainz LPN - 05/13/2023 10:35 AM EDT Pt aware. Voiced understanding. * Telephone Encounter - Fany Jackson CRNP - 05/13/2023 10:10 AM EDT Reviewed message from cardiology recommended a CBC, CMP, and TSH. BMP checked yesterday so will addon Liver Function. Cardiology to complete device interrogation. Will wait for results of everything and then discuss adjusting medications / refer to electrophysiology. US of your leg was negative for any blood clots and your blood coagulation level was therapeutic. Recommend continuing lasix as prescribed and wearing compression socks. documented in this encounter Plan of Treatment Upcoming Encounters Date Type Department Care Team (Late st Contact Info) Description 05/27/2023 8:40 AM EDT Laboratory Lab Mobile Phlebotomy [facility] [address] [place] [address] [facility] Home Draw [address] [place], [place] [phone] 05/30/2023 6:00 AM EDT Anticoagulation Pharmacy Call Center WB [address] [facility] [place] [address] [facility] 58 60 [facility] [place] [address] 06/08/2023 2:00 PM EDT Laboratory Laboratory [address] [place] [phone] [place] [address] 06/15/2023 2:30 PM EDT Office Visit Hematology/Oncology [facility] [place] [address] [place] [phone] Matt Faustin MD [address] [place] [address] 06/24/2023 2:30 PM EDT Nurse Only Rheumatology [address] [place] [phone] [place], Nurse [address] [place] [address] 08/02/2023 12:00 PM EDT Office Visit Cardiology [address] [place] [address] Poli Zepeda PA-C [address] [place] [address] 09/06/2023 1:00 PM EDT Laboratory Laboratory [address] [place] [address] [place] [address] 09/29/2023 10:00 AM EDT Office Visit Family Medicine [address] [place] [phone] Cathy Wilburn MD [address] [place] [address] [place] [address] 10/12/2023 3:00 PM EDT Office Visit Sleep Disorders Ctr [facility] [address] [place] [phone] Isabel Diallo DO [address] [place] [address] 01/06/2024 2:00 PM EST Office Visit Nephrology [address] [place] [address] Charlotte Cope PA-C [address] [place] [address] 01/23/2024 2:20 PM EST Office Visit Dermatology [address] [place] [address] Amber Orozco PA-C [address] [place] [address] [place] [address] Scheduled Orders Name Type Priority Associated Diagnoses Orde r Schedule CBC WITH WBC DIFFERENTIAL AND ANEMIA REFLEX WORKUP Lab Routine Palpitations Expected: 05/13/2023 (Approximate), Expires: 05/12/2024 HEPATIC FUNCTION PANEL Lab Routine Palpitations Expected: 04/12/2024 (Approximate), Expires: 06/12/2024 TSH WITH FREE T4 IF INDICATED Lab Routine Palpitations Expected: 05/13/2023 (Approximate), Expires: 05/12/2024 Health Maintenance Due Date Last Done Comments Depression Screening 05/30/2021 05/30/2020 COVID-19 Vaccine ( season) 2022 Albumin/Creatinine Ratio 07/20/2023 023, 04/06/2021, 05/30/2020, Additional history exists DXA Scan 10/22/2023 10/21/2021, 09/29, 08/28/2018, Additional history exists CKD HGB USE SMARTSET 15535 03/17/202403/17, 03/17/2023, 12/14/2022, Additional history exists CKD PHOS USE SMARTSET 31186 05/11/202404/28, 11/05/2022, 04/14/2022, Additional history exists DTaP,Tdap,and Td Vaccines (2 - Td or Tdap) 12/31/2029 01/01/2020 (Declined), 12/30/2009, 12/30/2009, Additional history exists Pneumococcal Vaccine: 65+ Years Completed 02/08/2017, 02/23/2006 VITAMIN D LEVEL ONCE IN A LIFETIME-USE SMARTSET# 30992 Completed 05/12/2023, 11/05/2022, 04/14/2022, Additional history exists [...] this encounter Medical Devices Implanted Type Area Garage Door Opener Installer Device Identifier Shelf Expiration Date Model / Serial / Lot Lead Novus Bipolar 58cm - [id number] - [id number] Implanted:Qty: 1 on 04/11/2017 by Elda Patterson DO at OR [facility] Left: Heart [employer] : [employer] 12/18/2018 5076-58 / [id number] / Description:RIGHT VENTRICLE LEAD Lead Novus Bipolar 52cm - [id number] - [id number] Implanted:Qty: 1 on 04/11/2017 by Elda Patterson DO at OR [facility] Left: Heart [employer] : YONATHAN 12/24/2018 5076-52 / [id number] / Description:RIGHT ATRIAL ROCKY D Pacer Advisa Dr Dorsey - [id number] - [id number] Implanted:Qty: 1 on 04/11/2017 by Elda Patterson DO at OR [facility] Left: Chest [employer] 08/25/2018 A2DR01 / [id number] / documented as of this encounter Visit Diagnoses Diagnosis Palpitations- Primary documented in this encounter Advance Directives Documents on File Type Date Recorded Patient Fire Prevention Specialist Expl anation POLST 01/05/2021 [place] [facility] FOR LIFE-SUSTAINING TREATMENT Latest Code Status on File Code Status Date Activated Date Inactivated Comments Full Code 07/02/2008 9:35 AM 07/03/2008 5:40 PM Care Teams Dimensional Engineer Relationship Specialty Start Date End Date Cathy Wilburn MD [address] [place] [address] [place] [address] PCP - General Family Medicine 12/03/22 documented as of this encounter
--- OUTSIDE RECORDS SUMMARY | 2023-05-27 20:46 | External Medical Summary | Summary of Care ---
Author Name Unknown Organization [facility] Address [address] [facility] [place] [address] Phone [phone] Care Team Providers Care Svp Of Digital Name Role Phone Cathy Wilburn MD Primary Care Provide r Reason for Visit * Reason Comments Outpatient Testing Encounter Details Date Type Department Care Team (Late st Contact Info) Description 05/16/2023 2:40 PM EDT Laboratory Laboratory [address] [place] [phone] [facility] [address] [place] [address] Palpitations Allergies Active Allergy Reactions Criticality Noted Date [...] as of this encounter (statuses as of 05/16/2023) Medications Medication Sig Dispensed Refills Start Date [...] ON TUESDAY, TUESDAY AND TUESDAY 30 Tablet 11 07/06/2022 Active Aspirin Low Dose 81 MG [...] 40 MG Oral Tablet (Lipitor)Indication s:Atherosclerosis of [place] coronary artery of [place] heart without angina pectoris,Dyslipidem ia, goal LDL [...] as of this encounter (statuses as of 05/16/2023) Active Problems Problem Noted Date Diagnosed Date [...] lumbosacral intervertebral disc 02/04/2009 Coronary atherosclerosis of [place] coronary luis ry 02/24/2005 Senile osteoporosis 05/14/2003 Carpal tunnel syndrome 04/23/2003 Moderate mitral regurgitation GENERAL OSTEOARTHROSIS Gastroesophageal reflux disease without esophagi tis Vitamin D deficiency Hyperparathyroidism, primary documented as of this encounter (statuses as of 05/16/2023) Resolved Problems Problem Noted Date Diagnosed Date [...] 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 LOC PRIM [id number] 02/14/200205/30 Other seborrheic keratosis 10/31/2001 0 06/06/2007 [...] as of this encounter (statuses as of 05/16/2023) Immunizations Name Administration Dates Next Due Pneumococcal [...] No 04/11/2017 documented as of this encounter Plan of Treatment Upcoming Encounters Date Type Department Care Team (Late st Contact Info) Description 05/27/2023 8:40 AM EDT Laboratory Lab Mobile Ph[facility] [address] [place] [address] [facility] Draw [address] [place] [address] 05/30/2023 6:00 AM EDT Anticoagulation Pharmacy Call Center [address] [place] [address] [facility] 58 [address] [place] [address] 06/08/2023 2:00 PM EDT Laboratory Laboratory [address] [place] [phone] [address] [place] [address] 06/15/2023 2:30 PM EDT Office Visit Hematology/Oncology [facility] [address] [place] [phone] Matt Faustin MD [address] [place] [address] 06/24/2023 2:30 PM EDT Nurse Only Rheumatology [address] [place] [address] [place], Nurse Rheum [address] [place] [address] 08/02/2023 12:00 PM EDT Office Visit Cardiology [address] [place] [address] Poli Zepeda PA-C [address] [place] [address] 09/06/2023 1:00 PM EDT Laboratory Laboratory [address] [place] [phone] [place], Lab [address] [place] [address] 09/29/2023 10:00 AM EDT Office Visit Family Medicine [address] [place] [phone] Cathy Wilburn MD [address] [place] [address] [place] [address] 10/12/2023 3:00 PM EDT [facility] [place] [address] [place] [phone] Isabel Diallo DO [address] [place] [address] 01/06/2024 2:00 PM EST Office Visit Nephrology [address] [place] [address] Charlotte Cope PA-C [address] [place] [address] 01/23/2024 2:20 PM EST Office Visit Dermatology [address] [place] [address] Amber Orozco PA-C [address] [place] [address] [place] [address] Pending Results Name Type Priority Associated Diagnoses Date /Time CBC WITH WBC DIFFERENTIAL AND ANEMIA REFLEX WORKUP Lab Routine Palpitations 05/16/2023 2:43 PM EDT TSH WITH FREE T4 IF INDICATED Lab Routine Palpitations 05/16/2023 2:43 PM EDT ANEMIA CBC Lab Routine Palpitations 05/16/2023 2:43 PM EDT DIFFERENTIAL, AUTOMATED Lab Routine Palpitations 05/16/2023 2:43 PM EDT ANEMIA REFLEX CHEMISTRY HOLD Lab Routine Palpitations 05/16/2023 2:43 PM EDT Health Maintenance Due Date Last Done Comments Depression Screening 05/30/2021 05/30/2020 COVID-19 Vaccine ( season) 2022 Albumin/Creatinine Ratio 07/20/2023 023, 04/06/2021, 05/30/2020, Additional history exists DXA Scan 10/22/2023 10/21/2021, 09/29, 08/28/2018, Additional history exists CKD HGB USE SMARTSET 59181 03/17/202403/17, 03/17/2023, 12/14/2022, Additional history exists CKD PHOS USE SMARTSET 54095 05/11/202404/28, 11/05/2022, 04/14/2022, Additional history exists DTaP,Tdap,and Td Vaccines (2 - Td or Tdap) 12/31/2029 01/01/2020 (Declined), 12/30/2009, 12/30/2009, Additional history exists Pneumococcal Vaccine: 65+ Years Completed 02/08/2017, 02/23/2006 VITAMIN D LEVEL ONCE IN A LIFETIME-USE SMARTSET# 16614 Completed 05/12/2023, 11/05/2022, 04/14/2022, Additional history exists [...] this encounter Medical Devices Implanted Type Area Econometrics Professor Device Identifier Shelf Expiration Date Model / Serial / Lot Lead Novus Bipolar 58cm - [id number] - [id number] Implanted:Qty: 1 on 04/11/2017 by lEda Patterson DO at OR [facility] Left: Heart [employer] : [facility] 12/18/2018 5076-58 / [id number] / Description:RIGHT VENTRICLE LEAD Lead Novus Bipolar 52cm - [id number] - [id number] Implanted:Qty: 1 on 04/11/2017 by Elda Patterson DO at OR [facility] Left: Heart [employer] : [facility] 12/24/2018 5076-52 / [id number] / Description:RIGHT ATRIAL ROCKY D Pacer Advisa Dr Dorsey - [id number] - [id number] Implanted:Qty: 1 on 04/11/2017 by Elda Patterson DO at OR [facility] Left: Chest [employer] 08/25/2018 A2DR01 / [id number] / documented as of this encounter Visit Diagnoses Diagnosis Palpitations documented in this encounter Advance Directives Documents on File Type Date Recorded Patient Coffin Maker Expl anation POLST 01/05/2021 [place] OR [facility] FOR LIFE-SUSTAINING TREATMENT Latest Code Status on File Code Status Date Activated Date Inactivated Comments Full Code 07/02/2008 9:35 AM 07/03/2008 5:40 PM Care Teams Svp Of Digital Relationship Specialty Start Date End Date Cathy Wilburn MD [address] [place] [address] [place] [address] PCP - General Family Medicine 12/03/22 documented as of this encounter
--- OUTSIDE RECORDS SUMMARY | 2023-05-27 20:46 | External Medical Summary ---
Author Name Unknown Address Unknown Organization K01:LABORATORY [facility] [place] [place] [address] [facility] [address] Laboratory Report Ordering Provider Test Date Status ABIGAIL CHAVIRA 05/16/2023 14:43:14 Final Observation Date Value Abnormality Reference (Units ) Status Retic, % (auto) 05/16/2023 14:43:14 2.42 Above high normal 0.80-1.90 (%) Final Reticulocytes, Absolute 05/16/2023 14:43:14 98.0 31.3-100.1 (K/uL) Final Reticulocyte fraction, immature 05/16/2023 14:43:14 32.6 Above high normal 2.5-20.6 (%) Final Reticulocyte HGB 05/16/2023 14:43:14 30.3 29.7-37.4 (pg) Final Performing Location LABORATORY [facility] [place] [address] [facility] [address]
--- OUTSIDE RECORDS SUMMARY | 2023-05-27 20:46 | External Medical Summary ---
Author Name Unknown Address Unknown Organization K01:LABORATORY [facility] - [address] [place] [address] Laboratory Report Ordering Provider Test Date Status ABIGAIL CHAVIRA 05/16/2023 14:43:14 Final Observation Date Value Abnormality Reference (Units ) Status Ferritin 05/16/2023 14:43:14 63 13-150 (ng /mL) Final Postmenopausal women have hi gher ferritin levels than pre-menopausal women. The above reference interval is based on pre-menopausal women. Performing Location LABORATORY [facility] - [address] [place] [address]
--- OUTSIDE RECORDS SUMMARY | 2023-05-27 20:46 | External Medical Summary ---
Author Name Unknown Address Unknown Organization K01:LABORATORY [facility] [place] - [address] [facility] [address] Laboratory Report Ordering Provider Test Date Status ABIGAIL CHAVIRA 05/16/2023 14:43:14 Final Observation Date Value Abnormality Reference (Units ) Status WBC, Total 05/16/2023 14:43:14 7.16 4.00-10.8 0 (K/uL) Final RBC 05/16/2023 14:43:14 4.04 3.85-5.15 (M/uL) Final Hemoglobin 05/16/2023 14:43:14 11.1 Below low normal 12 .0-15.3 (g/dL) Final Anemia reflex testing trigge rs on a HGB < 12.0 for Females and HGB < 13.0 for Males in accordance with the WHO Anemia Guidelines
Anemia reflex testing triggers on a HGB < 12.0 for Females and HGB < 13.0 for Males in accordance with the WHO Anemia Guidelines HCT 05/16/2023 14:43:14 37.6 36.0-45.2 (%) Final MCV 05/16/2023 14:43:14 93.1 81.5-97.5 (fL) Final MCH 05/16/2023 14:43:14 27.5 27.0-34.0 (pg) Final MCHC 05/16/2023 14:43:14 29.5 32.0-36.0 (g/dL) Final RDW 05/16/2023 14:43:14 17.6 11.5-15.5 (%) Final Platelets 05/16/2023 14:43:14 135 Below low normal 140 -400 (K/uL) Final MPV 05/16/2023 14:43:14 11.3 6.6-11.1 ( fL) Final Nucleated erythrocytes/100 leukocytes [Ratio] in Blood by Automated count 05/16/2023 14:43:14 0 <=0 (/100 WBCs) Final Performing Location LABORATORY [facility] [place] - [address] [facility] [address]
--- OUTSIDE RECORDS SUMMARY | 2023-05-27 20:46 | External Medical Summary | Summary of Care ---
Author Name Unknown Organization [facility] Address [address] [place] [place] [address] Phone [phone] Care Team Providers Care Machine Boss Name Role Phone Cathy Wilburn MD Primary Care Provide r Reason for Visit * Reason Comments Outpatient Testing Encounter Details Date Type Department Care Team (Late st Contact Info) Description 05/12/2023 3:10 PM EDT Laboratory Laboratory [address] [place] [phone] [facility] Lab [address] [place] [address] Palpitations*; Hyperparathyroidism, primary (HCC); Right leg swelling Allergies Active Allergy Reactions Criticality Noted Date [...] 40 MG Oral Tablet (Lipitor)Indication s:Atherosclerosis of [place] coronary artery of [place] heart without angina pectoris,Dyslipidem ia, goal LDL [...] lumbosacral intervertebral disc 02/04/2009 Coronary atherosclerosis of [place] coronary luis ry 02/24/2005 Senile osteoporosis 05/14/2003 [...] 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 LOC PRIM [id number] 02/14/200205/30 Other seborrheic keratosis 10/31/2001 0 06/06/2007 [...] Laboratory Lab Mobile Phlebot[facility] [address] [place] [address] [facility] Mobile Home Draw [address] [place] [address] 05/30/2023 6:00 AM EDT Anticoagulation Pharmacy Call Center [address] [place] [address] [facility] 58 [address] [place] [address] 06/08/2023 2:00 PM EDT Laboratory Laboratory Alvo Luiz [address] [place] [phone] [place] [address] [place] [address] 06/15/2023 2:30 PM EDT Office Visit Hematology/Oncology State James Gardiner [address] [place] [phone] Matt Faustin MD [address] [place] [address] 06/24/2023 2:30 PM EDT Nurse Only Rheumatology [address] [place] [phone] [place], Nurse [address] [place] [address] 08/02/2023 12:00 PM EDT Office Visit Cardiology [address] [place] [address] Poli Zepeda PA-C [address] [place] [address] 09/06/2023 1:00 PM EDT Laboratory Laboratory [address] [place] [address] [place], Lab [address] [place] [address] 09/29/2023 10:00 AM EDT Office Visit Family Medicine [address] [place] [phone] Cathy Wilburn MD [address] [place] [address] [place] [address] 10/12/2023 3:00 PM EDT Office Visit Sleep Disorders Ctr Alexis Hernandez, [place] [address] [place] [phone] Isabel Diallo DO [address] [place] [address] 01/06/2024 2:00 PM EST Office Visit Nephrology [address] [place] [address] Charlotte Cope PA-C [address] [place] [address] 01/23/2024 2:20 PM EST Office Visit Dermatology [address] [place] [address] Amber Orozco PA-C [address] [place] [address] [place] [address] Health Maintenance Due Date Last Done Comments Depression Screening 05/30/2021 05/30/2020 COVID-19 Vaccine ( season) 2022 Albumin/Creatinine Ratio 07/20/2023 023, 04/06/2021, 05/30/2020, Additional history exists DXA Scan 10/22/2023 10/21/2021, 09/29, 08/28/2018, Additional history exists CKD HGB USE SMARTSET 87033 03/17/202403/17, 03/17/2023, 12/14/2022, Additional history exists CKD PHOS USE SMARTSET 88843 05/11/202404/28, 11/05/2022, 04/14/2022, Additional history exists DTaP,Tdap,and Td Vaccines (2 - Td or Tdap) 12/31/2029 01/01/2020 (Declined), 12/30/2009, 12/30/2009, Additional history exists Pneumococcal Vaccine: 65+ Years Completed 02/08/2017, 02/23/2006 VITAMIN D LEVEL ONCE IN A LIFETIME-USE SMARTSET# 29002 Completed 05/12/2023, 11/05/2022, 04/14/2022, Additional history exists [...] this encounter Medical Devices Implanted Type Area Mutual Fund Accountant Device Identifier Shelf Expiration Date Model / Serial / Lot Lead Novus Bipolar 58cm - [id number] - [id number] Implanted:Qty: 1 on 04/11/2017 by Elda Patterson DO at OR [facility] Left: Heart [employer] : [facility] 12/18/2018 5076-58 / [id number] / Description:RIGHT VENTRICLE LEAD Lead Novus Bipolar 52cm - [id number] - [id number] Implanted:Qty: 1 on 04/11/2017 by Elda Patterson DO at OR [facility] Left: Heart [employer] : [facility] 12/24/2018 5076-52 / [id number] / Description:RIGHT ATRIAL ROCKY D Pacer Advisa Dr Dorsey - [id number] - [id number] Implanted:Qty: 1 on 04/11/2017 by Elda Patterson DO at OR [facility] Left: Chest [employer] 08/25/2018 A2DR01 / [id number] / documented as of this encounter Procedures Procedure Name Priority Date/Time Associated Diagnosis Comments 25-HYDROXY VITAMIN D Routine 05/12/2023 3:30 PM EDT Hyperparathyroidism , primary (HCC) BASIC METABOLIC PANEL Routine 05/12/2023 3:30 PM EDT Hyperparathyroidism , primary (HCC) PT INR Routine 05/12/2023 3:30 PM EDT Right leg swelling PHOSPHORUS Routine 05/12/2023 3:30 PM EDT Hyperparathyroidism , primary (HCC) PTH Routine 05/12/2023 3:30 PM EDT Hyperparathyroidism , primary (HCC) MAGNESIUM Routine 05/12/2023 3:30 PM EDT Hyperparathyroidism , primary (HCC) ALBUMIN Routine 05/12/2023 3:30 PM EDT Hyperparathyroidism , primary (HCC) documented in this encounter Results * (ABNORMAL) PT INR (05/12/2023 3:30 PM EDT) Prothrombin Time 25.5(H) 11.6 - 15.2 seconds 05/13/2023 12:23 AM EDT LABORATORY [facility] INR 2.3(H) 0.8 - 1.2 05/13/2023 12:23 AM EDT LABORATORY C Blood Venous blood specimen / Unknown Venipuncture / Unknown 05/12/2023 3:30 PM EDT 05/12/2023 3:30 PM EDT Narrative LABORATORY [facility] - 05/13/2023 12:23 AM EDT Warfarin Therapy INR: 2.0-3.0 conventional anticoagulation INR: 2.5-3.5 high intensity anticoagulation Fany KIM LAB BLOOD ORDER PATRICIA LABORATORY [facility] [address] [place] [address] * (ABNORMAL) PTH (05/12/2023 3:30 PM EDT) PTH 168(H) 15 - 65 pg/mL 05/13/2023 4:59 AM EDT LAB[facility]ATORY [facility] Blood Venous blood specimen / Unknown Venipuncture / Unknown 05/12/2023 3:30 PM EDT 05/12/2023 3:30 PM EDT Deana Vargas MD LAB BLOOD ORDERABL ES Performing Organization Address [facility] Co de Phone Number LABORATORY [facility] [address] [place] [address] * PHOSPHORUS (05/12/2023 3:30 PM EDT) Phosphorus 3.5 2.5 - 4.8 mg/dL 05/13/2023 4:24 AM EDT LABORATORY C Blood Venous blood specimen / Unknown Venipuncture / Unknown 05/12/2023 3:30 PM EDT 05/12/2023 3:30 PM EDT Deana Vargas MD LAB BLOOD ORDERABL ES Performing Organization Address City/[facility]/ZIP Co de Phone Number LABORATORY [facility] [address] [place] [address] * MAGNESIUM (05/12/2023 3:30 PM EDT) Magnesium 1.8 1.5 - 2.6 mg/dL 05/13/2023 4:24 AM EDT LAB[facility]ATORY [facility] Blood Venous blood specimen / Unknown Venipuncture / Unknown 05/12/2023 3:30 PM EDT 05/12/2023 3:30 PM EDT Deana Vargas MD LAB BLOOD ORDERABL ES LABORATORY [facility] [address] [place] [address] * (ABNORMAL) BASIC METABOLIC PANEL (05/12/2023 3:30 PM EDT) BUN 16 6 - 20 mg/dL 05/13/2023 4:24 AM EDT LAB[facility]ATORY [facility] Creatinine 1.3(H) 0.5 - 1.0 mg/dL 05/13/2023 4:24 AM EDT LAB[facility]ATORY [facility] Estimated Glomerular Filtration Rate 42(L) >=60 mL/min 05/13/2023 4:24 AM EDT LABORATORY [facility] Comment:eGFR is calculated b ased on the CKD-EPI 2020 equation Sodium 138 135 - 146 mmol/L 05/13/2023 4:24 AM EDT LAB[facility]ATORY [facility] Potassium 4.2 3.5 - 5.1 mmol/L 05/13/2023 4:24 AM EDT LAB[facility]ATORY [facility] Chloride 103 98 - 107 mmol/L 05/13/2023 4:24 AM EDT LAB[facility]ATORY [facility] CO2 25 22 - 32 mmol/L 05/13/2023 4:24 AM EDT LAB[facility]ATORY [facility] Anion Gap 10 7 - 15 mmol/L 05/13/2023 4:24 AM EDT LAB[facility]ATORY [facility] Glucose 91 70 - 120 mg/dL 05/13/2023 4:24 AM EDT LAB[facility]ATORY [facility] Calcium 10.0 8.4 - 10.2 mg/dL 05/13/2023 4:24 AM EDT LAB[facility]ATORY [facility] Blood Venous blood specimen / Unknown Venipuncture / Unknown 05/12/2023 3:30 PM EDT 05/12/2023 3:30 PM EDT Deana Vargas MD LAB BLOOD ORDERABL ES Performing Organization Address [facility] Co de Phone Number LABORATORY [facility] [address] [place] [address] * ALBUMIN (05/12/2023 3:30 PM EDT) Albumin 4.1 3.8 - 5.0 g/dL 05/13/2023 4:24 AM EDT LABORATORY C Blood Venous blood specimen / Unknown Venipuncture / Unknown 05/12/2023 3:30 PM EDT 05/12/2023 3:30 PM EDT Deana Vargas MD LAB BLOOD ORDERABL ES Performing Organization Address [facility] Phone Number LABORATORY [facility] [address] [place] [address] * 25-HYDROXY VITAMIN D (05/12/2023 3:30 PM EDT) 25-Hydroxy Vitamin D 35 >19 ng/mL 05/13/2023 4:59 AM EDT LABORATORY [facility] Blood Venous blood specimen / Unknown Venipuncture / Unknown 05/12/2023 3:30 PM EDT 05/12/2023 3:30 PM EDT Narrative LABORATORY C - 05/13/2023 4:59 AM EDT Deficient: <20 ng/mL Insufficient: 20-29 ng/mL Recommended/Optimum:30-50 ng/mL Vitamin D intoxication is rare. If suspicious of Vitamin D toxicity, evaluation of serum Calcium and PTH is recommended. 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
--- OUTSIDE RECORDS SUMMARY | 2023-05-27 20:46 | External Medical Summary ---
Author Name Unknown Address Unknown Organization K01:LABORATORY C - [address] [place] [address] Laboratory Report Ordering Provider Test Date Status ABIGAIL CHAVIRA 05/16/2023 14:43:14 Final Observation Date Value Abnormality Reference (Units ) Status Vitamin B12 05/16/2023 14:43:14 1392 Above high normal 232-1245 (pg/mL) Final Performing Location [facility] - [address] [place] [address]
--- OUTSIDE RECORDS SUMMARY | 2023-05-27 20:46 | External Medical Summary | Summary of Care ---
Author Name Unknown Organization [facility] Address [address] [place] [address] Phone [phone] Care Team Providers Care Candy Separator Hard Name Role Phone Cathy Wilburn MD Primary Care Provide r Reason for Visit * Reason Onset Date Comments Appointment 05/18/2023 Med Request 05/18/2023 Encounter Details Date Type Department Care Team (Late st Contact Info) Description 05/18/2023 Telephone Care Coordination and Integration [address] [place], [place] [phone] Kirsten Diaz RN [address] [place], [place] [phone] Appointment; Med Request Allergies Active Allergy Reactions [...] 40 MG Oral Tablet (Lipitor)Indication s:Atherosclerosis of [place] coronary artery of [place] heart without angina pectoris,Dyslipidem ia, goal LDL [...] lumbosacral intervertebral disc 02/04/2009 Coronary atherosclerosis of [place] coronary luis ry 02/24/2005 Senile osteoporosis 05/14/2003 [...] 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 LOC PRIM [id number] 02/14/200205/30 Other seborrheic keratosis 10/31/2001 0 06/06/2007 [...] Pt, pacer check scheduled May [address] [facility]. Referral needs placed for EP. * Telephone Encounter - Kirsten Diaz RN - 05/18/2023 4:42 PM EDT THIS PATIENT IS NOT ACTIVE WITH CASE MANAGEMENT. For PCP: Patient reporting: -sinus drainage, yellow -post nasal drip -sore throat -increased difficulty swallowing due to sore throat, feels swollen -denies fever Asking for something to be called in to [facility]. Please let patient know if something [...] 1:30 PM EDT Cardiac Studies Cardiology [address] [place] [address] [facility] Pacer [facility] [address] 05/27/2023 8:40 AM EDT Laboratory Lab Mobile Phlebotomy [facility] [address] [place] [address] [facility] Mobile Home Draw [address] [place], [place] [phone] 05/30/2023 6:00 AM EDT Anticoagulation Pharmacy Call Center [address] [place] [address] [facility] 58 60 [facility] [address] 06/08/2023 2:00 PM EDT Laboratory Laboratory [address] [place] [phone] [place] [address] [place] [address] 06/15/2023 2:30 PM EDT Office Visit Hematology/Oncology State James Gardiner [address] [place] [phone] Matt Faustin MD [address] [place] [address] 06/24/2023 2:30 PM EDT Nurse Only Rheumatology [address] [place] [phone] [place], Nurse Rheum [address] [place] [address] 08/02/2023 12:00 PM EDT Office Visit Cardiology [address] [place] [address] Poli Zepeda PAJuanC [address] [place] [address] 09/06/2023 1:00 PM EDT Laboratory Laboratory [address] [place] [phone] [place], Lab [address] [place] [address] 09/29/2023 10:00 AM EDT Office Visit Family Medicine [address] [place] [phone] Cathy Wilburn [address] [place] [address] 10/12/2023 3:00 PM EDT Office Visit Sleep Disorders Ctr [facility] [address] [place] [phone] Isabel Diallo DO [address] [place] [address] 01/06/2024 2:00 PM EST Office Visit Nephrology [address] [place] [address] ZeCharlotte coleman PA-C [address] [place] [address] 01/23/2024 2:20 PM EST Office Visit Dermatology [address] [place] [address] Amber Orozco PA-C [address] [place] [address] [place] [phone] Health Maintenance Due Date Last Done Comments Depression Screening 05/30/2021 05/30/2020 COVID-19 Vaccine (2022- season) 2022 Albumin/Creatinine Ratio 07/20/2023 023, 04/06/2021, 05/30/2020, Additional history exists DXA Scan 10/22/2023 10/21/2021, 09/29, 08/28/2018, Additional history exists CKD PHOS USE SMARTSET 05275 05/11/202404/28, 11/05/2022, 04/14/2022, Additional history exists CKD HGB USE SMARTSET 06775 05/15/202405/15, 05/16/2023, 03/17/2023, Additional history exists DTaP,Tdap,and Td Vaccines (2 - Td or Tdap) 12/31/2029 01/01/2020 (Declined), 12/30/2009, 12/30/2009, Additional history exists Pneumococcal Vaccine: 65+ Years Completed 02/08/2017, 02/23/2006 VITAMIN D LEVEL ONCE IN A LIFETIME-USE SMARTSET# 53301 Completed 05/12/2023, 11/05/2022, 04/14/2022, Additional history exists [...] this encounter Medical Devices Implanted Type Area Floor Layer Tile Device Identifier Shelf Expiration Date Model / Serial / Lot Lead Novus Bipolar 58cm - [id number] - [id number] Implanted:Qty: 1 on 04/11/2017 by Elda Patterson DO at OR [facility] Left: Heart [employer] : CRM 12/18/2018 5076-58 / [id number] / Description:RIGHT VENTRICLE LEAD Lead Novus Bipolar 52cm - [id number] - [id number] Implanted:Qty: 1 on 04/11/2017 by Elda Patterson DO at OR [facility] Left: Heart [employer] : CRM 12/24/2018 5076-52 / [id number] / Description:RIGHT ATRIAL ROCKY D Pacer Advisa Dr Dorsey - [id number] - [id number] Implanted:Qty: 1 on 04/11/2017 by Elda Patterson DO at OR [facility] Left: Chest [employer] 08/25/2018 A2DR01 / [id number] / documented as of this encounter Advance Directives Documents on File Type Date Recorded 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
--- OUTSIDE RECORDS SUMMARY | 2023-05-27 20:46 | External Medical Summary ---
Author Name Unknown Address Unknown Organization K01:LABORATORY C - [address] [place] [address] Laboratory Report Ordering Provider Test Date Status ABIGAIL CHAVIRA 05/16/2023 14:43:14 Final Observation Date Value Abnormality Reference (Units ) Status Folic Acid 05/16/2023 14:43:14 10.8 >4.5 (ng/ mL) Final Performing Location [facility] - [address] [place] [address]
--- OUTSIDE RECORDS SUMMARY | 2023-05-27 20:46 | External Medical Summary ---
Author Name Unknown Address Unknown Organization K01:LABORATORY [facility] - [address] [facility] [address] [place] [address] Laboratory Report Ordering Provider Test Date Status ABIGAIL CHAVIRA 05/16/2023 14:43:14 Final Observation Date Value Abnormality Reference (Units ) Status Iron 05/16/2023 14:43:14 53 33-151 (ug /dL) Final Iron-binding capacity 05/16/2023 14:43:14 351 250-425 (ug/dL) Final Transferrin Sat % 05/16/2023 14:43:14 15 15 -55 (%) Final Performing Location LABORATORY [facility] - [address] [place] [address]
--- OUTSIDE RECORDS SUMMARY | 2023-05-27 20:46 | External Medical Summary | Summary of Care ---
Author Name Unknown Organization [facility] Address [address] [place] [address] Phone [phone] Care Team Providers Care Elementary Tutor Name Role Phone Cathy Wilburn MD Primary Care Provide r Reason for Referral * Evaluate & Treat - Unlimited Visits (Within 10 days (routine)) - Authorized Specialty Diagnoses / Procedures Referred By Contact Referred To Contact Cardiac Electrophysiology / Cardiology Diagnoses Cardiac pacemaker in situ Chronic atrial fibrillation (HCC) Aylin Hawkins PA-C [address] [place] [address] Referral ID Status Reason Start Date Expiration Date Visits Requested Visits Authorized [id number] Authorized Specialty Services Required 05/20/2023 999 999 [...] Telephone Care Coordination and Integration [address] [place] [address] Kirsten Diaz RN [address] [place] [address] Appointment; Med Request Allergies Active [...] 40 MG Oral Tablet (Lipitor)Indication s:Atherosclerosis of [place] coronary artery of [place] heart without angina pectoris,Dyslipidem ia, goal LDL [...] lumbosacral intervertebral disc 02/04/2009 Coronary atherosclerosis of [place] coronary luis ry 02/24/2005 Senile osteoporosis 05/14/2003 [...] 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 LOC PRIM [id number] 02/14/20022 04/2007 Other seborrheic keratosis 10/31/2001 0 [...] Pt, pacer check scheduled May 25 at [facility]. Referral needs placed for EP. * Telephone Encounter - Kirsten Diaz RN - 05/18/2023 4:42 PM EDT THIS PATIENT IS NOT ACTIVE WITH CASE MANAGEMENT. For PCP: Patient reporting: -sinus drainage, yellow -post nasal drip -sore throat -increased difficulty swallowing due to sore throat, feels swollen -denies fever Asking for something to be called in to [facility]. Please let patient know if [...] 05/26/2023 1:30 PM EDT Cardiac Studies Cardiology [address] [place] [address] Lucia Jimenez [address] [address] 05/27/2023 8:40 AM EDT Laboratory Lab Mobile Phlebotomy [facility] [address] [place] [address] [facility] Mobile Home Draw [address] [place] [address] 05/30/2023 6:00 AM EDT Anticoagulation Pharmacy Call Center [address] [facility] [address] [facility] 58 60 [facility] [place] [place] [address] 06/08/2023 2:00 PM EDT Laboratory Laboratory [address] [place] [phone] [place] [address] [place] [address] 06/15/2023 2:30 PM EDT Office Visit Hematology/Oncology State James Gardiner [address] [place] [phone] Matt Faustin MD [address] [place] [address] 06/24/2023 2:30 PM EDT Nurse Only Rheumatology [address] [place] [phone] [place], Nurse Rheum [address] [place] [address] 08/11/2023 1:00 PM EDT Office Visit Cardiology [address] [place] [address] Aylin Hawkins PA-C [address] [place] [address] 09/06/2023 1:00 PM EDT Laboratory Laboratory [address] [place] [address] [place], Lab [address] [place] [address] 09/29/2023 10:00 AM EDT Office Visit Family Medicine [address] [place] [phone] Cathy Wilburn MD [address] [place] [address] [place] [address] 10/12/2023 3:00 PM EDT Office Visit [facility] Ctr [facility] [place] [phone] Isabel Diallo DO [address] [place] [address] 01/06/2024 2:00 PM EST Office Visit Nephrology [address] [place] [address] Charlotte Cope PA-C [address] [place] [address] 01/23/2024 2:20 PM EST Office Visit Dermatology [address] [place] [address] Amber Orozco PA-C [address] [place] [address] [place] [address] Scheduled Referrals Name Type Priority Associated Diagnoses [...] Additional history exists CKD PHOS USE SMARTSET 13350 05/11/202404/28, 11/05/2022, 04/14/2022, Additional history exists CKD HGB USE SMARTSET 11873 05/15/202405/15, 05/16/2023, 03/17/2023, Additional history exists DTaP,Tdap,and Td Vaccines (2 - Td or Tdap) 12/31/2029 01/01/2020 (Declined), 12/30/2009, 12/30/2009, Additional history exists Pneumococcal Vaccine: 65+ Years Completed 02/08/2017, 02/23/2006 VITAMIN D LEVEL ONCE IN A LIFETIME-USE SMARTSET# 08900 Completed 05/12/2023, 11/05/2022, 04/14/2022, Additional history exists [...] this encounter Medical Devices Implanted Type Area Closing Agent Device Identifier Shelf Expiration Date Model / Serial / Lot Lead Novus Bipolar 58cm - [id number] - [id number] Implanted:Qty: 1 on 04/11/2017 by Elda Patterson DO at OR [facility] Left: Heart [employer] : CRM 12/18/2018 5076-58 / [id number] / Description:RIGHT VENTRICLE LEAD Lead Novus Bipolar 52cm - [id number] - [id number] Implanted:Qty: 1 on 04/11/2017 by Elda Patterson DO at OR [facility] Left: Heart [employer] : [facility] 12/24/2018 5076-52 / [id number] / Description:RIGHT ATRIAL ROCKY D Pacer Advisa Dr Dorsey - [id number] - [id number] Implanted:Qty: 1 on 04/11/2017 by Elda Patterson DO at OR [facility] Left: Chest [employer] 08/25/2018 A2DR01 / [id number] / documented as of this encounter Visit Diagnoses Diagnosis Cardiac pacemaker in situ- Primary Chronic atrial fibrillation (HCC) Atrial fibrillation documented in this encounter Advance Directives Documents on File Type Date Recorded 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
--- OUTSIDE RECORDS SUMMARY | 2023-05-27 20:46 | External Medical Summary | Summary of Care ---
Author Name Unknown Organization [facility] Address [address] [place] [address] Phone [phone] Care Team Providers Care Vessel Operator Name Role Phone Cathy Wilburn MD Primary Care Provide r Reason for Referral * Evaluate & Treat - Unlimited Visits (Within 10 days (routine)) - Authorized Specialty Diagnoses / Procedures Referred By Contact Referred To Contact Cardiac Electrophysiology / Cardiology Diagnoses Cardiac pacemaker in situ Chronic atrial fibrillation (HCC) Aylin Hawkins PA-C [address] [place] [address] Referral ID Status Reason Start Date Expiration Date Visits Requested Visits Authorized [id number] Authorized Specialty Services Required 05/20/2023 999 999 [...] Telephone Care Coordination and Integration [address] [place] [address] Kirsten Diaz RN [address] [place] [address] Appointment; Med Request Allergies Active [...] 40 MG Oral Tablet (Lipitor)Indication s:Atherosclerosis of [place] coronary artery of [place] heart without angina pectoris,Dyslipidem ia, goal LDL [...] lumbosacral intervertebral disc 02/04/2009 Coronary atherosclerosis of [place] coronary luis ry 02/24/2005 Senile osteoporosis 05/14/2003 [...] 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 Referral needs placed for EP. * Telephone Encounter - Kirsten Diaz RN - 05/18/2023 4:42 PM EDT THIS PATIENT IS NOT ACTIVE WITH CASE MANAGEMENT. For PCP: Patient reporting: -sinus drainage, yellow -post nasal drip -sore throat -increased difficulty swallowing due to sore throat, feels swollen -denies fever Asking for something to be called in to [facility]. Please let patient know if [...] 05/26/2023 1:30 PM EDT Cardiac Studies Cardiology [address] [place] [phone] Lucia Jimenez [address] [place] [address] 05/27/2023 8:40 AM EDT Laboratory Lab Mobile Phlebotomy GM [address] [place] [address] [facility], [facility] Home Draw [address] [place] [address] 05/30/2023 6:00 AM EDT [facility] [address] [facility] [address] [facility], [facility] [address] [facility] [address] 06/08/2023 2:00 PM EDT Laboratory Laboratory [address] [place] [phone] [place], Lab [address] [place] [address] 06/15/2023 2:30 PM EDT Office Visit Hematology/Oncology [facility] [place] [address] [place] [phone] Matt Faustin MD [address] [place] [address] 06/24/2023 2:30 PM EDT Nurse Only Rheumatology [address] [place] [phone] [place], Nurse Rheum [address] [place] [phone] 08/02/2023 12:00 PM EDT Office Visit Cardiology [address] [place] [address] Aylin Hawkins PA-C [address] [place] [address] 09/06/2023 1:00 PM EDT Laboratory Laboratory [address] [place] [phone] [place], Lab [address] [place] [address] 09/29/2023 10:00 AM EDT Office Visit Family Medicine [address] [place] [phone] Cathy Wilburn MD [address] [place] [address] [place] [address] 10/12/2023 3:00 PM EDT Office Visit [facility] [place] [address] [place] [phone] Isabel Diallo DO [address] [place] [address] 01/06/2024 2:00 PM EST Office Visit Nephrology [address] [place] [address] Charlotte Cope PA-C [address] [place], [place] [address] 01/23/2024 2:20 PM EST Office Visit Dermatology [address] [place] [address] Amber Orozco PA-C [address] [place] [address] [place] [address] Scheduled Referrals Name Type Priority Associated Diagnoses [...] Additional history exists CKD PHOS USE SMARTSET 18116 05/11/202404/28, 11/05/2022, 04/14/2022, Additional history exists CKD HGB USE SMARTSET 75197 05/15/202405/15, 05/16/2023, 03/17/2023, Additional history exists DTaP,Tdap,and Td Vaccines (2 - Td or Tdap) 12/31/2029 01/01/2020 (Declined), 12/30/2009, 12/30/2009, Additional history exists Pneumococcal Vaccine: 65+ Years Completed 02/08/2017, 02/23/2006 VITAMIN D LEVEL ONCE IN A LIFETIME-USE SMARTSET# 83109 Completed 05/12/2023, 11/05/2022, 04/14/2022, Additional history exists [...] this encounter Medical Devices Implanted Type Area Commercial Leasing Agent Device Identifier Shelf Expiration Date Model / Serial / Lot Lead Novus Bipolar 58cm - [id number] - [id number] Implanted:Qty: 1 on 04/11/2017 by Elda Patterson DO at OR [facility] Left: Heart [employer] : YONATHAN 12/18/2018 5076-58 / [id number] / Description:RIGHT VENTRICLE LEAD Lead Novus Bipolar 52cm - [id number] - [id number] Implanted:Qty: 1 on 04/11/2017 by Elda Patterson DO at OR [facility] Left: Heart [employer] : YONATHAN 12/24/2018 5076-52 / [id number] / Description:RIGHT ATRIAL ROCKY D Pacer Advisa Dr Dorsey - [id number] - [id number] Implanted:Qty: 1 on 04/11/2017 by Elda Patterson DO at OR [facility] Left: Chest [employer] 08/25/2018 [id number] / [id number] / documented as of this encounter Visit Diagnoses Diagnosis Cardiac pacemaker in situ- Primary Chronic atrial fibrillation (HCC) Atrial fibrillation documented in this encounter Advance Directives Documents on File Type Date Recorded 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
--- OUTSIDE RECORDS SUMMARY | 2023-05-27 20:46 | External Medical Summary ---
Author Name Unknown Address Unknown Organization K01:LABORATORY [facility] [place] - [address] [place] [address] Laboratory Report Ordering Provider Test Date Status ABIGAIL CHAVIRA 05/16/2023 14:43:14 Final Observation Date Value Abnormality Reference (Units ) Status TSH 05/16/2023 14:43:14 4.85 Above high normal 0. 27-4.20 (uIU/mL) Final Performing Location LABORATORY [facility] - [address] [place] [address]
--- OUTSIDE RECORDS SUMMARY | 2023-05-27 20:46 | External Medical Summary ---
Author Name Unknown Address Unknown Organization K01:[facility]ATORY [facility] - [address] [facility] [address] Laboratory Report Ordering Provider Test Date Status ABIGAIL CHAVIRA 05/16/2023 14:43:14 Final Observation Date Value Abnormality Reference (Units ) Status SYNC LEUKOCYTES IN BLOOD BY AUTOMATED COUNT 05/16/2023 14:43:14 7.16 4.00-10.80 (K/uL) Final Segs 05/16/2023 14:43:14 61.4 40.0-75.0 (%) Final Lymphs % 05/16/2023 14:43:14 22.8 18.0-42.0 (%) Final Monos 05/16/2023 14:43:14 12.2 Above high normal 1.0-11.0 (%) Final Eosinophils 05/16/2023 14:43:14 2.2 0.0-6.0 (%) Final Basos 05/16/2023 14:43:14 0.7 0.0-2.0 (%) Final Immature Granulocyte, Percent 05/16/2023 14:43:14 0.7 0.0-2.0 (%) Final Absolute Segs 05/16/2023 14:43:14 4.40 1.80-7.70 (K/uL) Final Lymphs, absolute 05/16/2023 14:43:14 1.63 1.00-4.80 (K/ul) Final Monos, Abs 05/16/2023 14:43:14 0.87 0.00-1.10 (K/uL) Final Eos, Abs 05/16/2023 14:43:14 0.16 0.00-0.70 (K/uL) Final Basos, Abs 05/16/2023 14:43:14 0.05 0.00-0.20 (K/uL) Final Immature Granulocytes, Number 05/16/2023 14:43:14 0.05 0.00-0.20 (K/uL) Final Performing Location LAB[facility]ORY [facility] - [address] [facility] [address]
--- OUTSIDE RECORDS SUMMARY | 2023-05-27 20:47 | External Medical Summary | Summary of Care ---
Author Name Unknown Organization [facility] Address [address] [place] [address] Phone [phone] Care Team Providers Care Glass Cut Off Supervisor Name Role Phone Maxwell Fregoso MD Primary Care Provide r Reason for Visit * Reason Comments Chronic Kidney Disease (CKD) Encounter Details Date Type Department Care Team (Late st Contact Info) Description 04/29/2023 3:00 PM EST Office Visit Nephrology [address] [place] [id number] Efrem Wade MD [address] [place] [address] [place] [address] Hypertensive heart and kidney disease with chronic diastolic congestive heart failure and stage 3b chronic kidney disease (HCC)*; Hyperparathyroidism (HCC); HTN, goal below 140/90 Allergies Active Allergy Reactions Criticality Noted Date [...] as of this encounter (statuses as of 05/09/2023) Medications Medication Sig Dispensed Refills Start Date [...] 2021 Active LORazepam 0.5 MG Oral Tablet (Ativan)Indicatio ns:Anxiety Take 1 Tablet (0.5 mg) by mouth every 8 hours as needed for Agitation or Anxiety. Take 1 Tablet by mouth daily as needed for Anxiety. 40 Tablet 0 02/05/2022 Active Cholecalciferol 25 MCG (1000 UT) Oral Capsule Take 2 Capsules by mouth as needed. 0 06/16/2022 Active Vitamin B-12 1000 MCG Oral Tablet (Cyanocobalamin)I ndications:B12 deficiency TAKE 1 TABLET BY MOUTH ON TUESDAY, TUESDAY AND TUESDAY 30 Tablet 11 07/06/2022 Active Aspirin Low Dose 81 MG Oral Tablet Delayed Release (aspirin enteric coated) TAKE ONE TABLET IN THE MORNING 30 Tablet 11 07/06/2022 Active Benzonatate 100 MG Oral CapsuleIndication s:Bronchitis, complicated Take 1 Capsule by mouth 3 times a day as needed for Cough. 30 Capsule 1 09/01/2022 Active Metoprolol Succinate ER 100 MG Oral Tablet Extended Release 24 Hour (toPROL XL)Indications:Pa roxysmal atrial fibrillation (HCC) Take 1.5 Tablets by mouth in the morning and 1.5 Tablets before bedtime. 120 Tablet 5 10/18/2022 Active Warfarin Sodium 2 MG Oral Tablet (Jantoven) Take 1-2 Tablets by mouth every evening. 180 Tablet 1 12/31/2022 Active Atorvastatin Calcium 40 MG Oral Tablet (Lipitor)Indicati ons:Atheroscleros is of pamunkey coronary artery of pamunkey heart without angina pectoris,Dyslipid emia, goal LDL below 70 TAKE ONE TABLET AT BEDTIME 90 Tablet 0 03/04/2023 Active Omeprazole 20 MG Oral Capsule Delayed Release (PriLOSEC)Indicat ions:Gastro-esoph ageal reflux disease without esophagitis TAKE ONE CAPSULE BY MOUTH IN THE MORNING 90 Capsule 1 03/07/2023 Active Bladder Control Pads Ex AbsorbIndications :Mixed stress and urge urinary incontinence Daily use of urinary incontinence 72 Each 11 03/17/2023 Active Diclofenac Sodium 1 % External Gel (Voltaren)Indicat ions:Acute bilateral low back pain without sciatica Apply to the affected area daily 350 g 2 03/17/2023 Active Vitamin C 500 MG Oral Capsule Take 1 Tablet by mouth every morning. 0 Active Furosemide 40 MG Oral Tablet (Lasix)Indication s:Dependent edema Take 0.5 Tablets by mouth in the morning. Is taking every other day. 0 03/31/2023 Active DULoxetine HCl 30 MG Oral Capsule Delayed Release Particles (Cymbalta)Indicat ions:Moderate episode of recurrent major depressive disorder (HCC) TAKE ONE CAPSULE BY MOUTH IN THE MORNING 90 Capsule 3 04/04/2023 Active Losartan Potassium 100 MG Oral Tablet (Cozaar) TAKE ONE TABLET BY MOUTH IN THE MORNING 90 Tablet 3 04/02/2023 Active amLODIPine Besylate 5 MG Oral Tablet (Norvasc) TAKE ONE TABLET BY MOUTH IN THE MORNING 90 Tablet 3 04/02/2023 Active Sennosides-Docusa te Sodium 8.6-50 MG Oral Tablet (Senexon-S) Take 2 Tablets by mouth every night at bedtime. 180 Tablet 0 04/21/2023 Active Digoxin 125 MCG Oral Tablet (Lanoxin)Indicati ons:Persistent atrial fibrillation (HCC),Tachy-kraig syndrome (HCC) Take 1 Tablet by mouth once a day on Tuesday, Tuesday, and Tuesday only. 40 Tablet 3 04/06/2023 4 Discontinue d(Patient preference/ discontinua tion) documented as of this encounter (statuses as of 05/09/2023) Active Problems Problem Noted Date Diagnosed Date [...] lumbosacral intervertebral disc 02/04/2009 Coronary atherosclerosis of pamunkey coronary luis ry 02/24/2005 Senile osteoporosis 05/14/2003 Carpal tunnel syndrome 04/23/2003 Moderate mitral regurgitation GENERAL OSTEOARTHROSIS Gastroesophageal reflux disease without esophagi tis Vitamin D deficiency Hyperparathyroidism, primary documented as of this encounter (statuses as of 05/09/2023) Resolved Problems Problem Noted Date Diagnosed Date [...] 10/02/19 Overview: RLP Parathyroid adenoma resection Benjy Gonzalez DO July 02, 2008 ICD-10 update of inactive term Slow transit constipation 02/09/2008 Postmenopausal atrophic vaginitis 02/09/2008 07/15/2017 Hypercalcemia 07/14/2005 05/22/2007 PVC (premature ventricular contraction) 05/26/2005 04/21/2017 Ischemic cardiomyopathy 02/25/200507/29 ADVANCE DIRECTIVE INFORMATION 02/24/2005 02/08/2017 Overview: No, Advance Directive brochure given to patient at prior appointment. OSTEOARTHROS NOS-L-LEG 05/26/200406/20 TENOSYNOV HAND-WRIST NEC 04/23/2003 CERVICAL 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 LOC PRIM [id number]-[id number] 02/14/200205/30 Other seborrheic keratosis 10/31/2001 0 06/06/2007 [...] as of this encounter (statuses as of 05/09/2023) Immunizations Name Administration Dates Next Due Pneumococcal Conjugate Vacc, 13 Valent (Prevnar) 02/08/2017 Pneumococcal Polysaccharide PPV23 (Pneumovax) Seasonal Influenza, Split, IIV3, With Preserve, Inj 03/13/2012 TD - Tetanus/Diptheria (ADULT) 12/30/2009 TD, Preservative Free 12/30/2009 documented as of this encounter Social History Tobacco Use Types Packs/Day Years Used Date Smoking Tobacco: Never Smokeless Tobacco: Never Tobacco Cessation:Counseling Given: Not Answered Alcohol Use Standard Drinks/Week Comments Not Currently [...] on file documented as of this encounter Last Filed Vital Signs Vital Sign Reading Time Taken Comments Blood Pressure 139/77 04/29/2023 3:29 PM EST Pulse 83 04/29/2023 3:29 PM EST Temperature 36.7 C (98 F) 04/29/2023 3:29 PM EST Respiratory Rate 18 04/29/2023 3:29 PM EST Oxygen Saturation 98% 04/29/2023 3:29 PM EST Inhaled Oxygen Concentration - - Weight 83.5 kg (184 lb) 04/29/2023 3:29 PM EST Height - - Body Mass Index 28.82 04/25/2023 12:45 PM EST documented in this encounter Functional Status Functional Status Response [...] No 04/11/2017 documented as of this encounter Patient Instructions * Patient Instructions* Efrem Wade MD - 04/29/2023 3:53 PM EST -no medication changes today -avoid medicines like aleve, advil, ibuprofen, aspirin more than 81 mg daily and other NSAIDS whichare not good for kidney patients. Take only tylenol (acetaminophen) up to 2000 mg daily as needed for pain or as directed by your primary care provider. -eat a low sodium diet (less than 2000 mg or 1/2 tsp) daily -aim for about 40-50 oz daily fluid most of which should be water -stay as active as you can safely be -kidney labs in August documented in this encounter Progress Notes * Efrem Wade MD - 04/29/2023 3:38 PM EST NEPHROLOGY CLINIC NOTE Nephrology [address] [place] [address] 04/29/2023, 3:38 PM Patient Name: Miranda Coe BACKGROUND: 87 year old female presents for f/u of CKD 3A/B (historically non proteinuric) and HTN. 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 Follows w/ Dr Hood, including prior to 06/2016>> hx of vasovagal presyncope and intolerance of diuretics/labile htn. She follows with Endocrine at [facility] and reestablished with them after PTH levels climbed. Her PTH levels after 2008 surgery improved but remained elevated; serum calcium normalized. History of 1 time remote fracture. Endo recommends no surgery and prn f/u unless severe hypercalcemia and hypercalciuria. She follows with Rheumatology and is currently on Prolia. Pt does have dropped bladder. 09/2019 hospitalized for RLE hematoma, here right iliopsoas hematoma received 2 units packed red blood cells, then as OP had vol OL and lasix increased by cardiology. Also needed Keflex for cellulitisof her left lower extremity. [facility] admissions including colon surgery for malignant tumor 04/27/21 then 05/21 - 06/02 for acute RLE DVT and C diff. Admission c/b R abd wall hematoma and tyrese esophagitis. No VINITA reported. She was continued on AC. Used walker for long time after surgery. Follows w/ Dr Faustin Had mild covid February 2020. Not getting vaccine b/c "afraid" and knows "too many people" who took shot "and had problems; her grandson in [place] for example "has never felt the same since he had the second shot;" I tell her vaccines are safe and effective and important including for those who've had virus > she states "I knew you'd say that." 5 Children (middle son age 55 due to cancer)- 2 daughter live in [place]. Sons local one lives in same apartment complex 20 Grandchildren. 12-14 great grandchildren. [place] Living alone now after her from metastatic cancer. Her hsuband 2017; her son of throat CA 2018.2 local sons. Sister of uterine cancer spring 2020 OV. Home blood pressure checks: yes twice daily NSAID use: No History of stones: No Family history of CKD or ESRD: No TODAY 04/29/2023: fell a few times but no injuries or bleeds. No more cruises planned yet but she's open. Saw endocrine recently for primary HPTH >> labs improved /acceptable and managing w/ prolia and D suppls and diet calcium; no longer pending repeat parathyroidectomy. Cardiology stopped digoxin. Takes 20 mg lasix and takes prn but most every other day. Worried about ongoing RLE edema where she had DVT. Sees Dr Faustin upcoming for colon CA. REVIEW OF SYSTEMS General: No weakness, No change in weight, good appetite, ongoing poor energy Head: No significant headache Respiratory: No cough,No wheezing; no sob recnetly though at times Cardiovascular:No chest pain, No palpitations, and No syncope Gastrointestinal: No nausea, vomiting, diarrhea No hematemesis, No blood in stools No abdominal pain Urinary: No dysuira, No hematuria. No flank pain Musculoskeletal: No muscle pains or cramps, denies edema, + joint pain >> thinking of seeing out more prp injections BL knees Skin: No itching No presyncopal or orthostatic sx, as above falls Current Outpatient Medications Medication Sig Dispense Refill oxygen GAS Use 2 L/min(Oxygen) as directed at bedtime. Latanoprost 0.005 % Ophthalmic Solution (Xalatan) ONE DROP IN EACH EYE AT BEDTIME 2.5 mL 12 Acetaminophen 325 MG Oral Tablet (Tylenol) Take by mouth 2 Tablets every 4 hours as needed for Fever >38C(100.5F), Pain, Mild, Pain, Moderate or Pain, Severe. 100 Tablet 1 LORazepam 0.5 MG Oral Tablet (Ativan) Take 1 Tablet (0.5 mg) by mouth every 8 hours as needed for Agitation or Anxiety. Take 1 Tablet by mouth daily as needed for Anxiety. 40 Tablet 0 Cholecalciferol 25 MCG (1000 UT) Oral Capsule Take 2 Capsules by mouth as needed. Vitamin B-12 1000 MCG Oral Tablet (Cyanocobalamin) TAKE 1 TABLET BY MOUTH ON TUESDAY, TUESDAY AND TUESDAY 30 Tablet 11 Aspirin Low Dose 81 MG Oral Tablet Delayed Release (aspirin enteric coated) TAKE ONE TABLET IN THE MORNING 30 Tablet 11 Benzonatate 100 MG Oral Capsule Take 1 Capsule by mouth 3 times a day as needed for Cough. 30 Capsule 1 Metoprolol Succinate ER 100 MG Oral Tablet Extended Release 24 Hour (toPROL XL) Take 1.5 Tablets bymouth in the morning and 1.5 Tablets before bedtime. 120 Tablet 5 Warfarin Sodium 2 MG Oral Tablet (Jantoven) Take 1-2 Tablets by mouth every evening. 180 Tablet 1 Atorvastatin Calcium 40 MG Oral Tablet (Lipitor) TAKE ONE TABLET AT BEDTIME 90 Tablet 0 Omeprazole 20 MG Oral Capsule Delayed Release (PriLOSEC) TAKE ONE CAPSULE BY MOUTH IN THE MORNING 90 Capsule 1 Vitamin C 500 MG Oral Capsule Take 1 Tablet by mouth every morning. Furosemide 40 MG Oral Tablet (Lasix) Take 0.5 Tablets by mouth in the morning. Is taking every other day. DULoxetine HCl 30 MG Oral Capsule Delayed Release Particles (Cymbalta) TAKE ONE CAPSULE BY MOUTH INTHE MORNING 90 Capsule 3 Losartan Potassium 100 MG Oral Tablet (Cozaar) TAKE ONE TABLET BY MOUTH IN THE MORNING 90 Tablet 3 amLODIPine Besylate 5 MG Oral Tablet (Norvasc) TAKE ONE TABLET BY MOUTH IN THE MORNING 90 Tablet 3 Sennosides-Docusate Sodium 8.6-50 MG Oral Tablet (Senexon-S) Take 2 Tablets by mouth every night atbedtime. 180 Tablet 0 denosumab (PROLIA) 60 MG/ML injection Inject 60 mg under the skin once. 1 Syringe 0 Bladder Control Pads Ex Absorb Daily use of urinary incontinence 72 Each 11 Diclofenac Sodium 1 % External Gel (Voltaren) Apply to the affected area daily 350 g 2 No current facility-administered medications for this visit. Review of patient's allergies indicates: Allergen Reactions Alendronate Sodium Wheezing Wheezing,sob Morphine And Related Psych complications Confusion Thiazide-Type Diuretics Wheezing Tenoretic--wheezing Boniva [Ibandronate Sodium] Other (Please comment) Trouble swollowing Zetia [Ezetimibe] Other (Please comment) Muscle pain Zocor [Simvastatin] Other (Please comment) Muscle pain Amiodarone SOB Iodinated Contrast Media Reno30%--sneeze? Dye Metoprolol Tartrate Generic Lopressor/certain brand/must be [employer] brand Red Dye Hives Erythromycin Nausea/vomiting Upset stomach PHYSICAL EXAMINATION: BP Readings from Last 6 Encounters: 04/29/23 139/77 04/25/23 124/68 03/31/23 136/72 03/17/23 124/72 02/15/23 134/76 12/14/22 128/72 Wt Readings from Last 6 Encounters: 04/29/23 83.5 kg (184 lb) 04/25/23 82.7 kg (182 lb 4.8 oz) 03/31/23 82.2 kg (181 lb 3.2 oz) 03/17/23 83.9 kg (185 lb) 02/15/23 80.3 kg (177 lb) 12/14/22 84 kg (185 lb 3.2 oz) Pulse Readings from Last 6 Encounters: 04/29/23 83 04/25/23 91 03/31/23 80 03/17/23 74 02/15/23 86 12/14/22 92 NAD, oriented x 3, ambulatory w/ cane Normocephalic, atraumatic, eomi nonicteric sclerae, periorbital edema MMM Supple neck Irregularly irregular w/o m/g/r; RLE edema CTAB w/ reduced air mvt NT abd, +BS, soft No cyanosis or clubbing R > L leg swelling No tremor, focal or global weakness; fluent speech, good historian LABS: Recent Labs Units 03/17/23 1341 12/14/22 1525 11/05/22 1041 07/19/22 1102 SODIUM - [facility] mmol/L 140 140 142 140 POTASSIUM - [facility] mmol/L 4.8 3.9 4.1 4.0 CHLORIDE - [facility] mmol/L 106 105 105 102 CO2 - [facility] mmol/L 25 25 27 29 BUN - [facility] mg/dL 18 20 21* 17 CREATININE - [facility] mg/dL 1.2* 1.1* 1.2* 1.2* ESTIMATED GLOMERULAR FILTRATION RATE - [facility] mL/min 46* 52* 44* 43* Recent Labs Units 03/17/23 1341 12/14/22 1525 07/19/22 1102 07/07/22 1111 09/28/21 1450 07/09/21 1135 HGB g/dL 10.1* 10.4* 12.8 11.5* < > 11.0* FERRITIN - [facility] ng/mL -- -- -- -- -- 51 TRANSFERRIN SATURATION PERCENT - [facility] % -- -- -- -- -- 16 < > = values in this interval not displayed. Recent Labs Units 03/17/23 1341 12/14/22 1525 11/05/22 1041 07/19/22 1102 07/07/22 1111 04/14/22 1524 03/23/22 1130 03/08/22 1643 12/21/21 1348 10/06/21 1524 09/28/21 1450 CALCIUM - [facility] mg/dL 8.5 10.0 10.2 10.1 < > 9.1 < > 8.5 < > 9.1 9.1 PHOSPHORUS - [facility] mg/dL -- -- 4.1 -- -- 2.8 -- -- -- 2.7 3.0 25-HYDROXY VITAMIN D - [facility] ng/mL -- -- 35 -- -- 32 -- 35 -- 30 33 PTH - [facility] pg/mL -- -- 137* -- -- 568* -- -- -- 358* 399* < > = values in this interval not displayed. No results for input(s): "HGBA1C" in the last 60364 hours. Recent Labs Units 07/19/22 1102 09/28/21 1450 ALBUMIN / CREATININE RATIO, URINE - [facility] mg/g Creat 33* -- PROTEIN/ CREATININE RATIO, URINE - [facility] mg/g -- 290* Recent Labs Units 09/28/21 1450 CLARITY, URINE - [facility] Clear GLUCOSE, URINE - [facility] mg/dL Negative BILIRUBIN, URINE - [facility] Negative KETONE, URINE - [facility] mg/dL Negative SPECIFIC GRAVITY, URINE - [facility] 1.009 BLOOD, URINE - [facility] Negative PH, URINE - [facility] Units 7.0 PROTEIN, URINE - [facility] mg/dL Negative PROTEIN, RANDOM URINE - [facility] mg/dL 9 UROBILINOGEN, URINE - [facility] mg/dL Normal NITRITE, URINE - [facility] Negative ESTERASE, URINE - [facility] Negative BACTERIA, URINE - [facility] /HPF 0-25 WBC, URINE - [facility] /HPF 0-2 RBC, URINE - [facility] /HPF 0-2 ASSESSMENT AND PLAN: Hypertensive heart and kidney disease with chronic diastolic congestive heart failure and stage 3b chronic kidney disease (HCC) (Primary) Hyperparathyroidism (HCC) HTN, goal below 140/90 Chronic fatigue Follow Up: Return in about 7 months (around 11/29/2023) for clinic visit w/ PA. | For: clinic visit w/ PA | Check-out note: waitlist Improved/stable CKD 3B with acceptable volume status on exam today and electrolytes on February labs; less than 200 mg albuminuria -update labs in August -continue losartan, dose appropriate -maintain hydration Hyperparathyroid labs have improved; continue follow-up as per Endocrine Blood pressure with acceptably higher target given frequent falls -continue losartan, toprol, amlodipine, prn lasix --eat a low sodium diet (less than 2000 mg or 1/2 tsp) daily Patient Instructions -no medication changes today -avoid medicines like aleve, advil, ibuprofen, aspirin more than 81 mg daily and other NSAIDS whichare not good for kidney patients. Take only tylenol (acetaminophen) up to 2000 mg daily as needed for pain or as directed by your primary care provider. -eat a low sodium diet (less than 2000 mg or 1/2 tsp) daily -aim for about 40-50 oz daily fluid most of which should be water -stay as active as you can safely be -kidney labs in August Efrem Wade MD Nephrology [address] [place] [address] CC: Ref: EFREM WADE[[id number]] [address] [place] [address] [place] [address] (office) [phone] (fax) PCP: MAXWELL FREGOSO [address] [place] [address] [place] [address] [phone] This chart was completed in part utilizing [employer] Speech Voice Recognition Software. Randomword insertions, pronoun errors, and incomplete sentences are an occasional consequence of this system due to software limitations, and ambient noise. Any questions or concerns about the content, text, or information contained within the body of this dictation should be directly addressed to the provider for clarification. documented in this encounter Nursing Notes * Sravanthi Magana RN - 04/29/2023 3:31 PM EST Follow up visit today. No recent illness or hospital stays. documented in this encounter Plan of Treatment Upcoming Encounters Date Type Department Care Team (Late st Contact Info) Description 05/27/2023 8:40 AM EDT Laboratory Lab Mobile Phlebotomy [facility] [address] [place] [address] [facility], [facility] Mobile Home Draw [address] [place] [address] 05/30/2023 6:00 AM EDT Anticoagulation Pharmacy Call Center [phone] [place] [address] [facility] [address] [facility] [place] [address] 06/08/2023 2:00 PM EDT Laboratory Laboratory [address] [place] [phone] [place], Lab [address] [place] [address] 06/15/2023 2:30 PM EDT Office Visit Hematology/Oncology [facility] [place] [address] [place] [phone] Matt Faustin MD [address] [place] [address] 06/24/2023 2:30 PM EDT Nurse Only Rheumatology [address] [place] [phone] [place], Nurse Rheum [address] [place] [phone] 08/02/2023 12:00 PM EDT Office Visit Cardiology [address] [place] [address] Poli Zepeda PA-Zeb [address] [facility] [place] [address] 09/06/2023 1:00 PM EDT Laboratory Laboratory [address] [place] [phone] [place] [address] 09/29/2023 10:00 AM EDT Office Visit Family Medicine [address] [place] [phone] Maxwell Fregoso MD [address] [place] [address] [place] [address] 10/12/2023 3:00 PM EDT Office Visit Sleep Disorders Ctr [facility] [address] [place] [phone] Isabel Diallo, [address] [place] [address] 01/06/2024 2:00 PM EST Office Visit Nephrology [address] [place] [address] Charlotte Cope PA-C [address] [place] [address] 01/23/2024 2:20 PM EST Office Visit Dermatology [address] [place] [address] Amber Orozco PA-C [address] [place] [address] [place] [address] Health Maintenance Due Date Last Done Comments Depression Screening 05/30/2021 05/30/2020 COVID-19 Vaccine ( season) 2022 Albumin/Creatinine Ratio 07/20/2023 023, 04/06/2021, 05/30/2020, Additional history exists DXA Scan 10/22/2023 10/21/2021, 09/29, 08/28/2018, Additional history exists CKD PHOS USE SMARTSET 83779 11/06/2023 09/0 09/2022, 04/14/2022, 10/06/2021, Additional history exists CKD HGB USE SMARTSET 09511 03/17/202403/17, 03/17/2023, 12/14/2022, Additional history exists DTaP,Tdap,and Td Vaccines (2 - Td or Tdap) 12/31/2029 01/01/2020 (Declined), 12/30/2009, 12/30/2009, Additional history exists Pneumococcal Vaccine: 65+ Years Completed 02/08/2017, 02/23/2006 VITAMIN D LEVEL ONCE IN A LIFETIME-USE SMARTSET# [id number] Completed 11/05/2022, 04/14/2022, 03/08/2022, Additional history exists GARDASIL-HPV IMMUNIZATION SERIES Aged Out No longer eligible based on patient's age to complete this topic Hepatitis B Aged Out No longer eligi ble based on patient's age to complete this topic MENINGOCOCCAL (MENACTRA/MENVEO) Aged Out No longer eligible based on patient's age to complete this topic Zoster Vaccines Discontinued documented as of this encounter Medical Devices Implanted Type Area Stenotypist Device Identifier Shelf Expiration Date Model / Serial / Lot Lead Novus Bipolar 58cm - [id number] - [id number] Implanted:Qty: 1 on 04/11/2017 by Elda Patterson DO at OR [facility] Left: Heart [employer] : [facility] 12/18/2018 5076-58 / [id number] / Description:RIGHT VENTRICLE LEAD Lead Novus Bipolar 52cm - [id number] - [id number] Implanted:Qty: 1 on 04/11/2017 by Elda Patterson DO at OR [facility] Left: Heart [employer] : [facility] 12/24/2018 5076-52 / [id number] / Description:RIGHT ATRIAL ROCKY D Pacer Advisa Dr Dorsey - [id number] - [id number] Implanted:Qty: 1 on 04/11/2017 by Elda Patterson DO at OR [facility] Left: Chest [employer] 08/25/2018 [id number] / [id number] / documented as of this encounter Visit Diagnoses Diagnosis Hypertensive heart and kidney disease with chronic diastolic congestive heart failure and stage 3b chronic kidney disease (HCC)- Primary Hyperparathyroidism (HCC) Hyperparathyroidism, unspecified HTN, goal below 140/90 Unspecified essential hypertension documented in this encounter Advance Directives Documents on File Type Date Recorded Patient Rug Dyer Helper Expl anation POLST 01/05/2021 [place] [facility] Latest Code Status on File Code Status Date Activated Date Inactivated Comments Full Code 07/02/2008 9:35 AM 07/03/2008 5:40 PM Care Teams Glass Cut Off Supervisor Relationship Specialty Start Date End Date Sellathurai, Thiviyanath, MD [address] [place] [address] [place] [address] PCP - General Family Medicine 12/03/22 documented as of this encounter
--- OUTSIDE RECORDS SUMMARY | 2023-05-27 20:47 | External Medical Summary ---
Author Name Unknown Address Unknown Organization K01:LABORATORY [facility] [place] - [address] [place] [address] Laboratory Report Ordering Provider Test Date Status KAITLINLETICIA 04/29/2023 11:14:00 Final Standing order for pt/inr. < br/>Please draw pt/inr every 1 to 4 weeks as requested
Results to [facility]

Warfarin Therapy
INR: 2.0-3.0 conventional anticoagulation
INR: 2.5-3.5 high intensity anticoagulation Observation Date Value Abnormality Reference (Units ) Status PT 04/29/2023 11:14:00 26.5 Above high normal 11 .6-15.2 (seconds) Final INR 04/29/2023 11:14:00 2.4 Above high normal 0. 8-1.2 Final Performing Location LABORATORY [facility] [place] [facility] [address] [facility] [address]
--- OUTSIDE RECORDS SUMMARY | 2023-05-27 20:47 | External Medical Summary ---
Author Name Unknown Address Unknown Organization K01:LABORATORY [facility] - [address] [place] [address] Laboratory Report Ordering Provider Test Date Status MARISSA HERRERA 05/12/2023 15:30:43 Final Observation Date Value Abnormality Reference (Units ) Status Magnesium 05/12/2023 15:30:43 1.8 1.5-2.6 (m g/dL) Final Performing Location LABORATORY [facility] - [address] [place] [address]
--- OUTSIDE RECORDS SUMMARY | 2023-05-27 20:47 | External Medical Summary | Summary of Care ---
Author Name Unknown Organization [facility] Address [address] [place] [facility] [place] [address] Phone [phone] Care Team Providers Care Plumber Supervisor Name Role Phone Cathy Wilburn MD Primary Care Provide r Encounter Details Date Type Department Care Team (Late st Contact Info) Description 04/29/2023 Result Scan Unspecified Department Darshan Hood, DO [address] [place] [address] <No scans attached> Allergies Active Allergy Reactions Criticality Noted Date [...] as of this encounter (statuses as of 04/29/2023) Medications Medication Sig Dispensed Refills Start Date [...] 25 MCG (1000 UT) Oral Capsule Take 1 Capsule by mouth as needed. 0 06/16/2022 Active Vitamin B-12 1000 MCG Oral Tablet (Cyanocobalamin)Ind ications:B12 deficiency TAKE 1 TABLET BY MOUTH ON TUESDAY, TUESDAY AND TUESDAY 30 Tablet 11 07/06/2022 Active Aspirin Low Dose 81 MG Oral Tablet Delayed Release (aspirin enteric coated) TAKE ONE TABLET IN THE MORNING 30 Tablet 07/06/2022 Active Benzonatate 100 MG Oral CapsuleIndications: [...] 40 MG Oral Tablet (Lipitor)Indication s:Atherosclerosis of [place] coronary artery of [place] heart without angina pectoris,Dyslipidem ia, goal LDL [...] 0.5 Tablets by mouth in the morning. 0 03/31/2023 Active DULoxetine HCl 30 MG [...] THE MORNING 90 Tablet 3 04/02/2023 Active Digoxin 125 MCG Oral Tablet (Lanoxin)Indication s:Persistent atrial fibrillation (HCC),Tachy-kraig syndrome (HCC) Take 1 Tablet by mouth once a day on Tuesday, Tuesday, and Tuesday only. 40 Tablet 3 04/06/2023 Active Sennosides-Docusate Sodium 8.6-50 MG Oral Tablet (Senexon-S) Take 2 Tablets by mouth every night at bedtime. 180 Tablet 0 04/21/2023 Active documented as of this encounter (statuses as of 04/29/2023) Active Problems Problem Noted Date Diagnosed Date [...] lumbosacral intervertebral disc 02/04/2009 Coronary atherosclerosis of [place] coronary luis ry 02/24/2005 Senile osteoporosis 05/14/2003 Carpal tunnel syndrome 04/23/2003 Moderate mitral regurgitation GENERAL OSTEOARTHROSIS Gastroesophageal reflux disease without esophagi tis Vitamin D deficiency Hyperparathyroidism, primary documented as of this encounter (statuses as of 04/29/2023) Resolved Problems Problem Noted Date Diagnosed Date [...] 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 LOC PRIM [id number] 02/14/200205/30 Other seborrheic keratosis 10/31/2001 0 06/06/2007 [...] as of this encounter (statuses as of 04/29/2023) Immunizations Name Administration Dates Next Due Pneumococcal [...] 04/29/2023 3:00 PM EST Office Visit Nephrology [address] [place] [address] Josie Butler MD 200 [facility] [place] [address] 05/02/2023 6:00 AM EST Anticoagulation Pharmacy Call Center [address] [facility] [place] [address] [facility] 58 60 [facility] [place] [address] 06/08/2023 2:00 PM EDT Laboratory Laboratory [address] [place] [phone] [place] [address] 06/15/2023 2:30 PM EDT Office Visit Hematology/Oncology State James Gardiner 200 [facility] [place] [phone] Matt Faustin MD [address] [place] [address] 06/24/2023 2:30 PM EDT Nurse Only Rheumatology [address] [place] [phone] [place], Nurse [address] [place] [phone] 08/02/2023 12:00 PM EDT Office Visit Cardiology [address] [place] [address] Poli Zepeda PA-C [address] [place] [address] 09/29/2023 10:00 AM EDT Office Visit Family Medicine [address] [place] [phone] Cathy Wilburn MD [address] [place] [address] [place] [address] 10/12/2023 3:00 PM EDT Office Visit Sleep Disorders [facility] [address] [place] [phone] Isabel Diallo DO [address] [place] [address] 01/23/2024 2:20 PM EST Office Visit Dermatology [address] [place] [address] Amber Orozco, PAJuanC [address] [place] [address] [place] [address] Health Maintenance Due Date Last Done Comments Depression Screening 05/30/2021 05/30/2020 COVID-19 Vaccine (2022-24 season) 2022 Albumin/Creatinine Ratio 07/20/2023 023, 04/06/2021, 05/30/2020, Additional history exists DXA Scan 10/22/2023 10/21/2021, 09/29, 08/28/2018, Additional history exists CKD PHOS USE SMARTSET 41875 11/06/2023 09/0 09/2022, 04/14/2022, 10/06/2021, Additional history exists CKD HGB USE SMARTSET 23866 03/17/202403/17, 03/17/2023, 12/14/2022, Additional history exists DIG LEVEL FOR MEDICATION MONITORING YEARLY 04/22/2024 04/22/2023, 03/17/2023, 03/08/2022, Additional history exists DTaP,Tdap,and Td Vaccines (2 - Td or Tdap) 12/31/2029 01/01/2020 (Declined), 12/30/2009, 12/30/2009, Additional history exists Pneumococcal Vaccine: 65+ Years Completed 02/08/2017, 02/23/2006 VITAMIN D LEVEL ONCE IN A LIFETIME-USE SMARTSET# [id number] Completed 11/05/2022, 04/14/2022, 03/08/2022, Additional history exists [...] this encounter Medical Devices Implanted Type Area Tin Recovery Worker Device Identifier Shelf Expiration Date Model / Serial / Lot Lead Novus Bipolar 58cm - [id number] - [id number] Implanted:Qty: 1 on 04/11/2017 by Elda Patterson DO at OR [facility] Left: Heart [employer] : YONATHAN 12/18/2018 5076-58 / [id number] / Description:RIGHT VENTRICLE LEAD Lead Novus Bipolar 52cm - [id number] - [id number] Implanted:Qty: 1 on 04/11/2017 by Elda Patterson DO at OR [facility] Left: Heart [employer] : YONATHAN 12/24/2018 5076-52 / [id number] / Description:RIGHT ATRIAL ROCKY D Pacer Advisa Dr Dorsey - [id number] - [id number] Implanted:Qty: 1 on 04/11/2017 by Elda Patterson DO at OR [facility] Left: Chest [employer] 08/25/2018 A2DR01 / [id number] / documented as of this encounter Procedures Procedure Name Priority Date/Time Associated Diagnosis Comments CARDIOLOGY SCANNED RESULT 04/29/2023 documented in this encounter Results * CARDIOLOGY SCANNED RESULT (04/29/2023) 04/29/2023 Darshan Hood DO OTHER documented in this encounter Advance Directives Documents on File Type Date Recorded Patient Balance Recesser Expl anation POLST 01/05/2021 [place] OR [facility] FOR LIFE-SUSTAINING TREATMENT Latest Code Status on File Code Status Date Activated Date Inactivated Comments Full Code 07/02/2008 9:35 AM 07/03/2008 5:40 PM Care Teams Plumber Supervisor Relationship Specialty Start Date End Date Cathy Wilburn MD [address] [place] [address] [place] [phone] PCP - General Family Medicine 12/03/22 documented as of this encounter
--- OUTSIDE RECORDS SUMMARY | 2023-05-27 20:47 | External Medical Summary ---
Author Name Unknown Address Unknown Organization K01:LABORATORY [facility] [place] - [address] [place] [address] Laboratory Report Ordering Provider Test Date Status ILDEFONSO ARREOLA 04/29/2023 11:14:00 Litzy l Recommended trough therapeut ic ranges:
0.5 to 0.8 for heart failure
0.5 to 1.1 for atrial fibrillation Observation Date Value Abnormality Reference (Units ) Status Digoxin 04/29/2023 11:14:00 0.3 Below low normal 0.5 -1.1 (ng/mL) Final Performing Location LABORATORY [facility] [place] [facility] [address] [facility] [address]
--- OUTSIDE RECORDS SUMMARY | 2023-05-27 20:47 | External Medical Summary ---
Author Name Unknown Address Unknown Organization K01:LABORATORY [facility] [place] - [address] [place] [address] Laboratory Report Ordering Provider Test Date Status MARISSA HERRERA 05/12/2023 15:30:43 Final Observation Date Value Abnormality Reference (Units ) Status Parathyrin.intact [Mass/volume] in Serum or Plasma 05/12/2023 15:30:43 168 Above high normal 15-65 (pg/mL) Final Performing Location LABORATORY [facility] [place] - [address] [place] [address]
--- OUTSIDE RECORDS SUMMARY | 2023-05-27 20:47 | External Medical Summary | Summary of Care ---
Author Name Unknown Organization [facility] Address [address] [place] [address] Phone [phone] Care Team Providers Care Director Of Academic Support Name Role Phone Cathy Wilburn MD Primary Care Provide r Reason for Visit * Reason Onset Date Comments Med Request 04/21/2023 case management 04/21/2023 Encounter Details Date Type Department Care Team (Late st Contact Info) Description 04/21/2023 Telephone Family Medicine [address] [place] [phone] Cathy Wilburn MD [address] [place] [address] [place] [phone] Med Request; case management Allergies Active Allergy Reactions Criticality Noted Date [...] as of this encounter (statuses as of 04/26/2023) Medications Medication Sig Dispensed Refills Start Date [...] 40 MG Oral Tablet (Lipitor)Indication s:Atherosclerosis of [place] coronary artery of [place] heart without angina pectoris,Dyslipidem ia, goal LDL [...] as of this encounter (statuses as of 04/26/2023) Active Problems Problem Noted Date Diagnosed Date [...] as of this encounter (statuses as of 04/26/2023) Resolved Problems Problem Noted Date Diagnosed Date [...] Overview: Per CKD protocol Hyperparathyroidism 04/02/2020 06/26/19 Stage 3a chronic kidney disease 01/07/2020 06/12/2020 [...] 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 LOC PRIM [id number] 02/14/200205/30 Other seborrheic keratosis 10/31/2001 0 06/06/2007 [...] as of this encounter (statuses as of 04/26/2023) Immunizations Name Administration Dates Next Due Pneumococcal [...] encounter Miscellaneous Notes * Telephone Encounter - Arvin Max MD - 04/21/2023 3:53 PM EST Sent to [facility] * Telephone Encounter - Kirsten Diaz RN - 04/21/2023 2:50 PM EST THIS PATIENT IS NOT ACTIVE WITH CASE MANAGEMENT. Received call from patient. Having issues with constipation again. Takes colace occasionally, doesn't help. Used to take Senexon-S (sennosides-docusate sodium) two tablets daily - either in the morning or atnight. Asking if you would please reorder that for her again? Confirmed pharmacy of choice as [facility]. Patient reports they deliver for her. documented in this encounter Plan of Treatment Upcoming Encounters Date Type Department Care Team (Late st Contact Info) Description 04/29/2023 8:10 AM EST Laboratory Lab Mobile Phlebotomy [facility] [address] [place] [address] [facility] [place], [facility] Mobile Home Draw [address] [place] [address] 04/29/2023 3:00 PM EST Office Visit Nephrology [address] [place] [address] Josie Butler MD 200 [facility] [place] [address] 05/02/2023 6:00 AM EST Anticoagulation Pharmacy Call Center [address] [place] [address] [facility], [facility] 58 60 [facility] [place] [address] 06/08/2023 2:00 PM EDT Laboratory Laboratory [address] [place] [phone] [place], Lab [address] [place] [address] 06/15/2023 2:30 PM EDT [facility] 200 [facility] [place] [phone] Matt Faustin MD 200 [facility] [place] [address] 06/24/2023 2:30 PM EDT Nurse Only Rheumatology [address] [place] [phone] [place], Nurse [address] [place] [phone] 08/02/2023 12:00 PM EDT Office Visit Cardiology [address] [place] [address] Poli Zepeda PA-C [address] [place] [address] 09/29/2023 10:00 AM EDT Office Visit Family Medicine [address] [place] [phone] Cathy Wilburn MD [address] [place] [address] [place] [address] 10/12/2023 3:00 PM EDT Office Visit Sleep Disorders [facility] [address] [place] [phone] Isabel Diallo DO [address] [place] [address] 01/23/2024 2:20 PM EST Office Visit Dermatology [address] [place] [address] Amber Orozco PA-C [address] [place] [address] [place] [address] Health Maintenance Due Date Last Done Comments Depression Screening 05/30/2021 05/30/2020 COVID-19 Vaccine ( season) 2022 Albumin/Creatinine Ratio 07/20/2023 023, 04/06/2021, 05/30/2020, Additional history exists DXA Scan 10/22/2023 10/21/2021, 09/29, 08/28/2018, Additional history exists CKD PHOS USE SMARTSET 53137 11/06/2023 09/0 09/2022, 04/14/2022, 10/06/2021, Additional history exists CKD HGB USE SMARTSET 71988 03/17/202403/17, 03/17/2023, 12/14/2022, Additional history exists DIG LEVEL FOR MEDICATION MONITORING YEARLY 04/22/2024 04/22/2023, 03/17/2023, 03/08/2022, Additional history exists DTaP,Tdap,and Td Vaccines (2 - Td or Tdap) 12/31/2029 01/01/2020 (Declined), 12/30/2009, 12/30/2009, Additional history exists Pneumococcal Vaccine: 65+ Years Completed 02/08/2017, 02/23/2006 VITAMIN D LEVEL ONCE IN A LIFETIME-USE SMARTSET# 33682 Completed 11/05/2022, 04/14/2022, 03/08/2022, Additional history exists [...] this encounter Medical Devices Implanted Type Area Post Manager Device Identifier Shelf Expiration Date Model / Serial / Lot Lead Novus Bipolar 58cm - [id number] - [id number] Implanted:Qty: 1 on 04/11/2017 by Elda Patterson DO at OR [facility] Left: Heart [employer] : [facility] 12/18/2018 5076-58 / [id number] / Description:RIGHT VENTRICLE LEAD Lead Novus Bipolar 52cm - [id number] - [id number] Implanted:Qty: 1 on 04/11/2017 by Elda Patterson DO at OR [facility] Left: Heart [employer] : [facility] 12/24/2018 5076-52 / [id number] / Description:RIGHT ATRIAL ROCKY D Pacer Advisa Dr Dorsey - [id number] - [id number] Implanted:Qty: 1 on 04/11/2017 by Elda Patterson DO at OR [facility] Left: Chest [employer] 08/25/2018 A2DR01 / [id number] / documented as of this encounter Advance Directives Documents on File Type Date Recorded Patient Aged Or Disabled Care Worker Expl anation POLST 01/05/2021 [place] OR [facility] FOR LIFE-SUSTAINING TREATMENT Latest Code Status on File Code Status Date Activated Date Inactivated Comments Full Code 07/02/2008 9:35 AM 07/03/2008 5:40 PM Care Teams Director Of Academic Support Relationship Specialty Start Date End Date Cathy Wilburn MD [address] [place] [address] [place] [phone] PCP - General Family Medicine 12/03/22 documented as of this encounter
--- OUTSIDE RECORDS SUMMARY | 2023-05-27 20:47 | External Medical Summary ---
Author Name Unknown Address Unknown Organization K01:LABORATORY [facility] - [address] [facility] [address] [place] [address] Laboratory Report Ordering Provider Test Date Status MARISSA HERRERA 05/12/2023 15:30:43 Final Observation Date Value Abnormality Reference (Units ) Status BUN 05/12/2023 15:30:43 16 6-20 (mg/dL) Final Creatinine 05/12/2023 15:30:43 1.3 Above high normal 0.5-1.0 (mg/dL) Final Glomerular filtration rate/1.73 sq M.predicted [Volume Rate/Area] in Serum, Plasma or Blood by Creatinine-based formula (CKD-EPI) 05/12/2023 15:30:43 42 Below low normal >=60 (mL/min) Final eGFR is calculated based on the CKD-EPI 2020 equation SODIUM 05/12/2023 15:30:43 138 135-146 (m mol/L) Final Potassium 05/12/2023 15:30:43 4.2 3.5-5.1 (m mol/L) Final Cl 05/12/2023 15:30:43 103 98-107 (mm ol/L) Final CO2 05/12/2023 15:30:43 25 22-32 (mmo l/L) Final Anion gap 05/12/2023 15:30:43 10 7-15 (mmol /L) Final Glucose 05/12/2023 15:30:43 91 70-120 (mg /dL) Final Calcium 05/12/2023 15:30:43 10.0 8.4-10.2 ( mg/dL) Final Performing Location LABORATORY [facility] - [address] [place] [address]
--- OUTSIDE RECORDS SUMMARY | 2023-05-27 20:47 | External Medical Summary | Summary of Care ---
Author Name Unknown Organization [facility] Address [address] [place] [place] [address] Phone [phone] Care Team Providers Care Specialist Physician Name Role Phone Cathy Wilburn MD Primary Care Provide r Reason for Visit * Reason Comments Outpatient Testing Encounter Details Date Type Department Care Team (Late st Contact Info) Description 05/12/2023 3:10 PM EDT Laboratory Laboratory [address] [place] [phone] [facility] [address] [place] [address] Hyperparathyroidism, primary (HCC); Right leg swelling Allergies [...] as of this encounter (statuses as of 05/12/2023) Medications Medication Sig Dispensed Refills Start Date [...] as of this encounter (statuses as of 05/12/2023) Active Problems Problem Noted Date Diagnosed Date [...] as of this encounter (statuses as of 05/12/2023) Resolved Problems Problem Noted Date Diagnosed Date [...] 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 LOC PRIM [id number] 02/14/200205/30 Other seborrheic keratosis 10/31/2001 0 06/06/2007 [...] as of this encounter (statuses as of 05/12/2023) Immunizations Name Administration Dates Next Due Pneumococcal [...] 8:40 AM EDT Laboratory Lab Mobile Phlebotomy [facility] [address] [place] [address] [facility] [place] [facility], [facility] Mobile Home Draw [address] [place] [address] 05/30/2023 6:00 AM EDT Anticoagulation Pharmacy Call Center [address] [place] [address] [facility] 58 [address] [place] [address] 06/08/2023 2:00 PM EDT Laboratory Laboratory [address] [place] [phone] [address] [place] [address] 06/15/2023 2:30 PM EDT Office Visit Hematology/Oncology [place] [address] [place] [phone] Matt Faustin MD [address] [place] [address] 06/24/2023 2:30 PM EDT Nurse Only Rheumatology [address] [place] [phone] [place], Nurse Rheum [address] [place] [phone] 08/02/2023 12:00 PM EDT Office Visit Cardiology [address] [place] [address] Poli Zepeda PA-C [address] [place] [address] 09/06/2023 1:00 PM EDT Laboratory Laboratory [address] [place] [phone] [place], Lab [address] [place] [address] 09/29/2023 10:00 AM EDT Office Visit Family Medicine [address] [place] [phone] [address] [place] [address] 10/12/2023 3:00 PM EDT Office Visit Sleep Disorders [facility] [address] [place] [phone] Isabel Diallo DO [address] [place] [address] 01/06/2024 2:00 PM EST Office Visit Nephrology [address] [place] [address] Charlotte Cope PA-C [address] [place] [address] 01/23/2024 2:20 PM EST Office Visit Dermatology [address] [place] [phone] Amber Orozco PA-C [address] [place] [address] [place] [address] Pending Results Name Type Priority Associated Diagnoses Date /Time 25-HYDROXY VITAMIN D Lab Routine Hyperparathyroidism, primary ([facility]) 05/12/2023 3:30 PM EDT ALBUMIN Lab Routine Hyperparathyroidism, primary ([facility]) 05/12/2023 3:30 PM EDT BASIC METABOLIC PANEL Lab Routine Hyperparathyroidism, primary ([facility]) 05/12/2023 3:30 PM EDT MAGNESIUM Lab Routine Hyperparathyroidism, primary ([facility]) 05/12/2023 3:30 PM EDT PHOSPHORUS Lab Routine Hyperparathyroidism, primary ([facility]) 05/12/2023 3:30 PM EDT PTH Lab Routine Hyperparathyroidism, primary ([facility]) 05/12/2023 3:30 PM EDT PT INR Lab Routine Right leg swelling 05/12/2023 3:30 PM EDT Health Maintenance Due Date Last Done Comments Depression Screening 05/30/2021 05/30/2020 COVID-19 Vaccine ( season) 2022 Albumin/Creatinine Ratio 07/20/2023 023, 04/06/2021, 05/30/2020, Additional history exists DXA Scan 10/22/2023 10/21/2021, 09/29, 08/28/2018, Additional history exists CKD PHOS USE SMARTSET 96397 11/06/2023 09/0 09/2022, 04/14/2022, 10/06/2021, Additional history exists CKD HGB USE SMARTSET 76524 03/17/202403/17, 03/17/2023, 12/14/2022, Additional history exists DTaP,Tdap,and Td Vaccines (2 - Td or Tdap) 12/31/2029 01/01/2020 (Declined), 12/30/2009, 12/30/2009, Additional history exists Pneumococcal Vaccine: 65+ Years Completed 02/08/2017, 02/23/2006 VITAMIN D LEVEL ONCE IN A LIFETIME-USE SMARTSET# 45949 Completed 11/05/2022, 04/14/2022, 03/08/2022, Additional history exists [...] this encounter Medical Devices Implanted Type Area Director Meetings Device Identifier Shelf Expiration Date Model / Serial / Lot Lead Novus Bipolar 58cm - [id number] - [id number] Implanted:Qty: 1 on 04/11/2017 by Elda Patterson DO at OR [facility] Left: Heart [employer] : [facility] 12/18/2018 5076-58 / [id number] / Description:RIGHT VENTRICLE LEAD Lead Novus Bipolar 52cm - [id number] - [id number] Implanted:Qty: 1 on 04/11/2017 by Elda Patterson DO at OR [facility] Left: Heart [employer] : [facility] 12/24/2018 5076-52 / [id number] / Description:RIGHT ATRIAL ROCKY D Pacer Advisa Dr Dorsey - [id number] - [id number] Implanted:Qty: 1 on 04/11/2017 by Elda Patterson DO at OR [facility] Left: Chest [employer] 08/25/2018 A2DR01 / [id number] / documented as of this encounter Visit Diagnoses Diagnosis Hyperparathyroidism, primary (HCC) Primary hyperparathyroidism Right leg swelling documented in this encounter Advance Directives Documents on File Type Date Recorded 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
--- OUTSIDE RECORDS SUMMARY | 2023-05-27 20:47 | External Medical Summary | Summary of Care ---
Author Name Unknown Organization [facility] Address [address] [place] [address] Phone [phone] Care Team Providers Care Quill Skinner Name Role Phone Cathy Wilburn MD Primary Care Provide r Reason for Visit * Reason Onset Date Comments Test Results 05/03/2023 Encounter Details Date Type Department Care Team (Late st Contact Info) Description 05/03/[address] [place] [address] Cathy Wilburn MD [address] [place] [address] [place], [place] [id number] Test Results Allergies Active Allergy Reactions Criticality Noted Date [...] as of this encounter (statuses as of 05/03/2023) Medications Medication Sig Dispensed Refills Start Date [...] 40 MG Oral Tablet (Lipitor)Indication s:Atherosclerosis of ambler coronary artery of ambler heart without angina pectoris,Dyslipidem ia, goal LDL [...] as of this encounter (statuses as of 05/03/2023) Active Problems Problem Noted Date Diagnosed Date [...] lumbosacral intervertebral disc 02/04/2009 Coronary atherosclerosis of ambler coronary luis ry 02/24/2005 Senile osteoporosis 05/14/2003 Carpal tunnel syndrome 04/23/2003 Moderate mitral regurgitation GENERAL OSTEOARTHROSIS Gastroesophageal reflux disease without esophagi tis Vitamin D deficiency Hyperparathyroidism, primary documented as of this encounter (statuses as of 05/03/2023) Resolved Problems Problem Noted Date Diagnosed Date [...] 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 LOC PRIM [id number] 02/14/200205/30 Other seborrheic keratosis 10/31/2001 0 06/06/2007 [...] as of this encounter (statuses as of 05/03/2023) Immunizations Name Administration Dates Next Due Pneumococcal [...] encounter Miscellaneous Notes * Telephone Encounter - Cathy Wilburn MD - 05/03/2023 9:38 AM EST Spoke to the pt - pt is doing well - last took digoxin 1 week ago and it is discontinued --- repeat level is low as expected - denied any dizziness, change in vision, light headedness or palpitation documented in this encounter Plan of Treatment Upcoming Encounters Date Type Department Care Team (Late st Contact Info) Description 05/27/2023 8:40 AM EDT Laboratory Lab Mobile Phlebotomy [facility] [address] [place] [address] [facility], [facility] Mobile Home Draw [address] [place] [address] 05/30/2023 6:00 AM EDT Anticoagulation Pharmacy Call Center WB 58-60 [facility] [place] [address] [facility] 58 60 [facility] [place] [address] 06/08/2023 2:00 PM EDT Laboratory Laboratory [address] [place] [address] [place], Lab [address] [place] [address] 06/15/2023 2:30 PM EDT Office Visit Hematology/Oncology [facility] [place] [address] [place] [phone] Matt Faustin MD [address] [place] [address] 06/24/2023 2:30 PM EDT Nurse Only Rheumatology [address] [place] [address] [place], Nurse Rheum [address] [place] [address] 08/02/2023 12:00 PM EDT Office Visit Cardiology [address] [place] [address] Poli Zepeda PA-C [address] [place] [address] 09/06/2023 1:00 PM EDT Laboratory Laboratory [address] [place] [address] [facility] Lab [address] [place] [address] 09/29/2023 10:00 AM EDT Office Visit Family Medicine [address] [place] [address] Cathy Wilburn MD [address] [place] [address] [place] [address] 10/12/2023 3:00 PM EDT Office Visit Sleep Disorders Ctr [facility] [address] [place] [phone] Isabel Diallo, DO [address] [place] [address] 01/06/2024 2:00 PM EST Office Visit Nephrology [address] [place] [address] Charlotte Cope PA-C [address] [place] [address] 01/23/2024 2:20 PM EST Office Visit Dermatology [address] [place] [address] Amber Orozco PA-C [address] [place] [address] [place] [address] Health Maintenance Due Date Last Done Comments Depression Screening 05/30/2021 05/30/2020 COVID-19 Vaccine ( season) 2022 Albumin/Creatinine Ratio 07/20/2023 023, 04/06/2021, 05/30/2020, Additional history exists DXA Scan 10/22/2023 10/21/2021, 09/29, 08/28/2018, Additional history exists CKD PHOS USE SMARTSET 68457 11/06/2023 09/0 09/2022, 04/14/2022, 10/06/2021, Additional history exists CKD HGB USE SMARTSET 18299 03/17/202403/17, 03/17/2023, 12/14/2022, Additional history exists DTaP,Tdap,and Td Vaccines (2 - Td or Tdap) 12/31/2029 01/01/2020 (Declined), 12/30/2009, 12/30/2009, Additional history exists Pneumococcal Vaccine: 65+ Years Completed 02/08/2017, 02/23/2006 VITAMIN D LEVEL ONCE IN A LIFETIME-USE SMARTSET# 08479 Completed 11/05/2022, 04/14/2022, 03/08/2022, Additional history exists [...] this encounter Medical Devices Implanted Type Area Gear Roller Device Identifier Shelf Expiration Date Model / Serial / Lot Lead Novus Bipolar 58cm - [id number] - [id number] Implanted:Qty: 1 on 04/11/2017 by Elda Patterson DO at OR [facility] Left: Heart [employer] : [facility] 12/18/2018 5076-58 / [id number] / Description:RIGHT VENTRICLE LEAD Lead Novus Bipolar 52cm - [id number] - [id number] Implanted:Qty: 1 on 04/11/2017 by Elda Patterson DO at OR [facility] Left: Heart [employer] : [facility] 12/24/2018 5076-52 / [id number] / Description:RIGHT ATRIAL ROCKY D Pacer Advisa Dr Dorsey - [id number] - [id number] Implanted:Qty: 1 on 04/11/2017 by Elda Patterson DO at OR [facility] Left: Chest [employer] 08/25/2018 A2DR01 / [id number] / documented as of this encounter Advance Directives Documents on File Type Date Recorded Patient Coremaker Experimental Expl anation POLST 01/05/2021 [place] OR [facility] FOR LIFE-SUSTAINING TREATMENT Latest Code Status on File Code Status Date Activated Date Inactivated Comments Full Code 07/02/2008 9:35 AM 07/03/2008 5:40 PM Care Teams Quill Skinner Relationship Specialty Start Date End Date Cathy Wilburn MD [address] [place] [address] [place] [address] PCP - General Family Medicine 12/03/22 documented as of this encounter
--- OUTSIDE RECORDS SUMMARY | 2023-05-27 20:47 | External Medical Summary ---
Author Name Unknown Address Unknown Organization K01:LABORATORY [facility] - [address] [place] [address] Laboratory Report Ordering Provider Test Date Status MARISSA HERRERA 05/12/2023 15:30:43 Final Deficient: <20 ng/mL
Ins ufficient: 20-29 ng/mL
Recommended/Optimum:30-50 ng/mL

Vitamin D intoxication is rare. If suspicious of Vitamin D toxicity, evaluation of serum Calcium and PTH is recommended. Observation Date Value Abnormality Reference (Units ) Status 25-OH Vitamin D total 05/12/2023 15:30:43 35 >19 (ng/mL) Final Performing Location LABORATORY C - [address] [place] [address]
--- OUTSIDE RECORDS SUMMARY | 2023-05-27 20:47 | External Medical Summary | Summary of Care ---
Author Name Unknown Organization [facility] Address [address] [place] [facility] [address] Phone [phone] Care Team Providers Care Internet Marketing Intern Name Role Phone Cathy Wilburn MD Primary Care Provide r Reason for Visit * Reason Comments Pacemaker Clinic Encounter Details Date Type Department Care Team (Latest Contact Info) Description 04/26/2023 2:00 PM EST Cardiac Studies Cardiology [address] [place] [address] [place], Pacer Clinic [address] [place] [address] Cardiac pacemaker in situ*; Tachy-kraig syndrome (HCC); Persistent atrial fibrillation (HCC); Chronic diastolic heart failure (HCC) Allergies Active Allergy Reactions Criticality Noted Date [...] as of this encounter (statuses as of 04/27/2023) Medications Medication Sig Dispensed Refills Start Date [...] 40 MG Oral Tablet (Lipitor)Indication s:Atherosclerosis of skokom[place] coronary artery of skokomish heart without angina pectoris,Dyslipidem ia, goal LDL [...] as of this encounter (statuses as of 04/27/2023) Active Problems Problem Noted Date Diagnosed Date [...] lumbosacral intervertebral disc 02/04/2009 Coronary atherosclerosis of [place] coronary luis ry 02/24/2005 Senile osteoporosis 05/14/2003 Carpal tunnel syndrome 04/23/2003 Moderate mitral regurgitation GENERAL OSTEOARTHROSIS Gastroesophageal reflux disease without esophagi tis Vitamin D deficiency Hyperparathyroidism, primary documented as of this encounter (statuses as of 04/27/2023) Resolved Problems Problem Noted Date Diagnosed Date [...] 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 LOC PRIM [id number] 02/14/2002 04/2 04/2007 Other seborrheic keratosis 10/31/2001 0 06/06/2007 [...] as of this encounter (statuses as of 04/27/2023) Immunizations Name Administration Dates Next Due Pneumococcal [...] No 04/11/2017 documented as of this encounter Nursing Notes * Zoraida Boyce LPN - 04/27/2023 2:57 PM EST Patient and implanted device were evaluated today in the [facility]. Providers please see scanned report in the Scans tab. Left pectoral device pocket is healthy without erythema, swelling, pain, or drainage. Atrial sensitivity changed from 0.45 to 4.0 due to chronic AFIB Interrogation by Rahul Jackson of [employer], Kirk Rutledge of [employer] and Zoraida Boyce LPN documented in this encounter Plan of Treatment Upcoming Encounters Date Type Department Care Team (Late st Contact Info) Description 04/29/2023 8:10 AM EST Laboratory Lab Mobile Phlebotomy [facility] [address] [place] [address] [facility] Mobile Home Draw [address] [place] [address] 04/29/2023 3:00 PM EST Office Visit Nephrology [address] [place] [address] Josie Butler MD [address] [place] [address] 05/02/2023 6:00 AM EST Anticoagulation Pharmacy Call Center WB 58[address]60 [facility] [place] [address] Ccp, [facility] 58 60 [facility] [place] [address] 06/08/2023 2:00 PM EDT Laboratory Laboratory [address] [place] [phone] [place], Lab [address] [place] [address] 06/15/2023 2:30 PM EDT Office Visit Hematology/Oncology [facility] [place] [address] [place] [phone] Matt Faustin MD [address] [place] [address] 06/24/2023 2:30 PM EDT Nurse Only Rheumatology [address] [place] [address] [place], Nurse Rheum [address] [place] [address] 08/02/2023 12:00 PM EDT Office Visit Cardiology [address] [place] [address] Poli Zepeda PA-C [address] [place] [address] 09/29/2023 10:00 AM EDT Office Visit Family Medicine [address] [place] [address] Cathy Wilburn MD [address] [place] [address] [place] [address] 10/12/2023 3:00 PM EDT Office Visit Sleep Disorders Ctr [facility] [address] [place] [phone] Isabel Diallo, [address] [place] [address] 01/23/2024 2:20 PM EST Office Visit Dermatology [address] [place] [address] Amber Orozco PA-C [address] [place] [address] [place] [address] Scheduled Orders Name Type Priority Associated Diagnoses Orde r Schedule DUAL-LEAD PACEMAKER + REPROGRAM Procedures Routine Cardiac pacemaker in situ Tachy-kraig syndrome (HCC) Persistent atrial fibrillation (HCC) Chronic diastolic heart failure (HCC) Ordered: 04/27/2023 Health Maintenance Due Date Last Done Comments Depression Screening 05/30/2021 05/30/2020 COVID-19 Vaccine ( season) 2022 Albumin/Creatinine Ratio 07/20/2023 023, 04/06/2021, 05/30/2020, Additional history exists DXA Scan 10/22/2023 10/21/2021, 09/29, 08/28/2018, Additional history exists CKD PHOS USE SMARTSET 58984 11/06/2023 09/0 09/2022, 04/14/2022, 10/06/2021, Additional history exists CKD HGB USE SMARTSET 91029 03/17/202403/17, 03/17/2023, 12/14/2022, Additional history exists DIG LEVEL FOR MEDICATION MONITORING YEARLY 04/22/2024 04/22/2023, 03/17/2023, 03/08/2022, Additional history exists DTaP,Tdap,and Td Vaccines (2 - Td or Tdap) 12/31/2029 01/01/2020 (Declined), 12/30/2009, 12/30/2009, Additional history exists Pneumococcal Vaccine: 65+ Years Completed 02/08/2017, 02/23/2006 VITAMIN D LEVEL ONCE IN A LIFETIME-USE SMARTSET# 97035 Completed 11/05/2022, 04/14/2022, 03/08/2022, Additional history exists [...] this encounter Medical Devices Implanted Type Area Marketing Strategy Lead Device Identifier Shelf Expiration Date Model / Serial / Lot Lead Novus Bipolar 58cm - [id number] - [id number] Implanted:Qty: 1 on 04/11/2017 by Elda Patterson DO at OR [facility] Left: Heart [employer] : [facility] 12/18/2018 5076-58 / [id number] / Description:RIGHT VENTRICLE LEAD Lead Novus Bipolar 52cm - [id number] - [id number] Implanted:Qty: 1 on 04/11/2017 by Elda Patterson DO at OR [facility] Left: Heart [employer] : [facility] 12/24/2018 5076-52 / [id number] / Description:RIGHT ATRIAL ROCKY D Pacer Advisa Dr Dorsey - [id number] - [id number] Implanted:Qty: 1 on 04/11/2017 by Elda Patterson DO at OR [facility] Left: Chest [employer] 08/25/2018 A2DR01 / [id number] / documented as of this encounter Visit Diagnoses Diagnosis Cardiac pacemaker in situ- Primary Tachy-kraig syndrome (HCC) Sinoatrial node dysfunction Persistent atrial fibrillation (HCC) Atrial fibrillation Chronic diastolic heart failure (HCC) Chronic diastolic heart failure documented in this encounter Advance Directives Documents on File Type Date Recorded Patient Barback Expl anation POLST 01/05/2021 [place] OR [facility] FOR LIFE-SUSTAINING TREATMENT Latest Code Status on File Code Status Date Activated Date Inactivated Comments Full Code 07/02/2008 9:35 AM 07/03/2008 5:40 PM Care Teams Internet Marketing Intern Relationship Specialty Start Date End Date Cathy Wilburn MD [address] [place] [address] [place] [address] PCP - General Family Medicine 12/03/22 documented as of this encounter
--- OUTSIDE RECORDS SUMMARY | 2023-05-27 20:47 | External Medical Summary | Summary of Care ---
Author Name Unknown Organization [facility] Address [address] [place] [facility] [place] [address] Phone [phone] Care Team Providers Care Drawing Checker Name Role Phone Cathy Wilburn MD Primary Care Provide r Reason for Visit * Reason Comments Dosage Adjustment Via Phone (anticoag Cl inic) Encounter Details Date Type Department Care Team (Latest Contact Info) Description 05/02/2023 6:00 AM EST Anticoagulation Pharmacy Call Center [phone] [facility] [place] [address] [facility] 58 60 Public [facility] [place] [address] Paroxysmal atrial fibrillation (HCC)* Allergies Active Allergy Reactions Criticality Noted Date [...] as of this encounter (statuses as of 05/02/2023) Medications Medication Sig Dispensed Refills Start Date [...] 40 MG Oral Tablet (Lipitor)Indication s:Atherosclerosis of [place] coronary artery of [place] heart without angina pectoris,Dyslipidem ia, goal LDL [...] as of this encounter (statuses as of 05/02/2023) Active Problems Problem Noted Date Diagnosed Date [...] lumbosacral intervertebral disc 02/04/2009 Coronary atherosclerosis of [place] coronary luis ry 02/24/2005 Senile osteoporosis 05/14/2003 Carpal tunnel syndrome 04/23/2003 Moderate mitral regurgitation GENERAL OSTEOARTHROSIS Gastroesophageal reflux disease without esophagi tis Vitamin D deficiency Hyperparathyroidism, primary documented as of this encounter (statuses as of 05/02/2023) Resolved Problems Problem Noted Date Diagnosed Date [...] 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 LOC PRIM [id number] 02/14/200205/30 Other seborrheic keratosis 10/31/2001 0 06/06/2007 [...] as of this encounter (statuses as of 05/02/2023) Immunizations Name Administration Dates Next Due Pneumococcal [...] No 04/11/2017 documented as of this encounter Progress Notes * Altaf Jean CPhT - 05/02/2023 11:08 AM EST Contacts Type Contact Phone/Fax 05/02/2023 11:03 AM EST Phone (Outgoing) Miranda Coe (Self) [phone] (M) Spoke to Patient Subjective Patient Findings Negatives: Signs/symptoms of thrombosis, Signs/symptoms of bleeding, Change in health, Change in alcohol use, Change in activity, Upcoming invasive procedure, Missed doses, Extra doses, Change in medications, Change in diet/appetite, Bruising Advised patient to contact Anticoagulation Clinic if any unusual bruising or bleeding, recent illness, changes in medication, or questions/concerns. PT/INR results, Coumadin dose instructions, and next PT/INR date communicated as noted by Pharmacist: Yes Altaf Jean CPhT 05/02/2023, 11:08 AM * Desi Flores RPh - 05/01/2023 7:54 PM EST Coumadin Clinic (region specific) Objective Current Warfarin Dose As of 05/02/2023 Warfarin maintenance plan: 4 mg (2 mg x 2) every Mon, Wed, Fri; 2 mg (2 mg x 1) all other days INR Result As of 05/02/2023 INR goal: 2.0-3.0 INR used for dosin.4 (04/29/2023) Assessment & Plan Warfarin Plan As of 05/02/2023 Full warfarin instructions: 4 mg every Mon, Wed, Fri; 2 mg all other days No change documented: Desi Flores RPh Next INR check: 05/27/2023 Repeat PT/INR in 4 week(s) Weekly dose: not changed Additional Dosing Information: Description [facility] Tech to contact patient with dose instructions as noted. Desi Flores RPh 05/01/2023, 7:54 PM documented in this encounter Plan of Treatment Upcoming Encounters Date Type Department Care Team (Late st Contact Info) Description 05/27/2023 8:40 AM EDT Laboratory Lab Mobile Phlebotomy [facility] [address] [place] [address] [facility], [facility] Mobile Home Draw [address] [place] [address] 05/30/2023 6:00 AM EDT Anticoagulation Pharmacy Call Center [address] [place] [address] [facility] 58 [address] [place] [address] 06/08/2023 2:00 PM EDT Laboratory Laboratory [address] [place] [phone] [address] [place] [address] 06/15/2023 2:30 PM EDT Office Visit Hematology/Oncology [facility] [address] [place] [phone] Matt Faustin MD [address] [place] [address] 06/24/2023 2:30 PM EDT Nurse Only Rheumatology [address] [place] [phone] [place], Nurse [address] [place] [phone] 08/02/2023 12:00 PM EDT Office Visit Cardiology [address] [place] [address] Poli Zepeda PA-C [address] [place] [address] 09/06/2023 1:00 PM EDT Laboratory Laboratory [address] [place] [address] [place], Lab [address] [place] [address] 09/29/2023 10:00 AM EDT Office Visit Family Medicine [address] [place] [phone] Cathy Wilburn MD [address] [place] [address] [place] [address] 10/12/2023 3:00 PM EDT Office Visit [facility] Disorders Ctr [facility] [place] [address] [place] [phone] Isabel Diallo DO [address] [place] [address] 01/06/2024 2:00 PM EST Office Visit Nephrology [address] [place] [address] Charlotte Cope PA-C [address] [place] [address] 01/23/2024 2:20 PM EST Office Visit Dermatology [address] [place] [address] Amber Orozco PA-C [address] [place] [address] [place] [address] Health Maintenance Due Date Last Done Comments Depression Screening 05/30/2021 05/30/2020 COVID-19 Vaccine ( season) 2022 Albumin/Creatinine Ratio 07/20/2023 023, 04/06/2021, 05/30/2020, Additional history exists DXA Scan 10/22/2023 10/21/2021, 09/29, 08/28/2018, Additional history exists CKD PHOS USE SMARTSET 17216 11/06/2023 09/0 09/2022, 04/14/2022, 10/06/2021, Additional history exists CKD HGB USE SMARTSET 79481 03/17/202403/17, 03/17/2023, 12/14/2022, Additional history exists DTaP,Tdap,and Td Vaccines (2 - Td or Tdap) 12/31/2029 01/01/2020 (Declined), 12/30/2009, 12/30/2009, Additional history exists Pneumococcal Vaccine: 65+ Years Completed 02/08/2017, 02/23/2006 VITAMIN D LEVEL ONCE IN A LIFETIME-USE SMARTSET# 10250 Completed 11/05/2022, 04/14/2022, 03/08/2022, Additional history exists [...] this encounter Medical Devices Implanted Type Area Boat Person Device Identifier Shelf Expiration Date Model / Serial / Lot Lead Novus Bipolar 58cm - [id number] - [id number] Implanted:Qty: 1 on 04/11/2017 by Elda Patterson DO at OR [facility] Left: Heart [employer] : [facility] 12/18/2018 5076-58 / [id number] / Description:RIGHT VENTRICLE LEAD Lead Novus Bipolar 52cm - [id number] - [id number] Implanted:Qty: 1 on 04/11/2017 by Elda Patterson DO at OR [facility] Left: Heart [employer] : [facility] 12/24/2018 5076-52 / [id number] / Description:RIGHT ATRIAL ROCKY D Pacer Advisa Dr Dorsey - [id number] - [id number] Implanted:Qty: 1 on 04/11/2017 by Elda Patterson DO at OR 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
--- OUTSIDE RECORDS SUMMARY | 2023-05-27 20:47 | External Medical Summary ---
Author Name Unknown Address Unknown Organization K01:LABORATORY [facility] - [address] [place] [address] Laboratory Report Ordering Provider Test Date Status MARISSA HERRERA 05/12/2023 15:30:43 Final Observation Date Value Abnormality Reference (Units ) Status Phosphate 05/12/2023 15:30:43 3.5 2.5-4.8 (m g/dL) Final Performing Location [facility] - [address] [place] [address]
--- OUTSIDE RECORDS SUMMARY | 2023-05-27 20:47 | External Medical Summary ---
Author Name Unknown Address Unknown Organization K01:[facility] [place] [address] [place] [address] Laboratory Report Ordering Provider Test Date Status ABIGAIL CHAVIRA 05/12/2023 15:30:43 Final Warfarin Therapy
INR: 2 .0-3.0 conventional anticoagulation
INR: 2.5- 3.5 high intensity anticoagulation Observation Date Value Abnormality Reference (Units ) Status PT 05/12/2023 15:30:43 25.5 Above high normal 11 .6-15.2 (seconds) Final INR 05/12/2023 15:30:43 2.3 Above high normal 0. 8-1.2 Final Performing Location LABORATORY [facility] [place] [address] [place] [address]
--- OUTSIDE RECORDS SUMMARY | 2023-05-27 20:47 | External Medical Summary | Summary of Care ---
Author Name Unknown Organization [facility] Address [address] [place] [address] Phone [phone] Care Team Providers Care Toolroom Helper Name Role Phone Cathy Wilburn MD Primary Care Provide r Reason for Visit * Reason Comments Acute Encounter Details Date Type Department Care Team (Late st Contact Info) Description 05/12/2023 2:20 PM EDT Office Visit Family Medicine [address] [address] [address] [place] [address] [place] [address] Palpitations*; Right leg swelling Allergies Active Allergy Reactions [...] 40 MG Oral Tablet (Lipitor)Indication s:Atherosclerosis of [place] coronary artery of [place] heart without angina pectoris,Dyslipidem ia, goal LDL [...] lumbosacral intervertebral disc 02/04/2009 Coronary atherosclerosis of [place] coronary luis ry 02/24/2005 Senile osteoporosis 05/14/2003 [...] 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 LOC PRIM [id number] 02/14/200205/30 Other seborrheic keratosis 10/31/2001 0 06/06/2007 [...] Sign Reading Time Taken Comments Blood Pressure 120/66 05/12/2023 2:11 PM EDT Pulse 86 05/12/2023 2:11 PM EDT Temperature 36.3 C (97.3 F) 05/12/2023 2:11 PM ED T Respiratory Rate 16 05/12/2023 2:11 PM EDT Oxygen Saturation 92% 05/12/2023 2:11 PM EDT Inhaled Oxygen Concentration - - Weight 83.5 kg (184 lb) 05/12/2023 2:11 PM EDT Height - - Body Mass Index 28.82 [...] as of this encounter Nursing Notes * Faviola Sainz LPN - 05/12/2023 2:08 PM EDT Chest flutters for about a week. Sob with exertion documented in this encounter Plan of Treatment Upcoming Encounters Date Type Department Care Team (Late st Contact Info) Description 05/27/2023 8:40 AM EDT Laboratory Lab Mobile Phlebotomy [facility] [address] [place] [address] [facility], [facility] Mobile Home Draw [address] [place] [address] 05/30/2023 6:00 AM EDT Anticoagulation Pharmacy Call Center WB 58-60 [facility] [place] [address] [facility], [facility] 58 60 [facility] [place] [address] 06/08/2023 2:00 PM EDT Laboratory Laboratory [address] [place] [phone] [place], [address] [place] [address] 06/15/2023 2:30 PM EDT Office Visit Hematology/Oncology [facility] [place] [address] [place] [phone] Matt Faustin MD [address] [place] [address] 06/24/2023 2:30 PM EDT Nurse Only Rheumatology [address] [place] [phone] [place], Nurse [address] [place] [phone] 08/02/2023 12:00 PM EDT Office Visit Cardiology [address] [place] [address] Poli Zepeda PA-C [address] [place] [address] 09/06/2023 1:00 PM EDT Laboratory Laboratory [address] [place] [phone] [address] [place] [address] 09/29/2023 10:00 AM EDT Office Visit Family Medicine [address] [place] [phone] Cathy Wilburn MD [address] [place] [address] [place] [address] 10/12/2023 3:00 PM EDT Office Visit Sleep Disorders Ctr [facility] [place] [address] [place] [phone] Isabel Diallo DO [address] [place] [address] 01/06/2024 2:00 PM EST Office Visit Nephrology [address] [place] [address] Charlotte Cope PA-C [address] [place] [address] 01/23/2024 2:20 PM EST Office Visit Dermatology [address] [place] [address] Amber Orozco PA-C [address] [place] [address] [place] [address] Pending Results Name Type Priority Associated Diagnoses Date /Time PT INR Lab Routine Right leg swelling 05/12/2023 3:30 PM EDT VASC DUPLEX VENOUS LE UNILAT Medical Imaging STAT Right leg swelling 05/12/2023 3:34 PM EDT Scheduled Orders Name Type Priority Associated Diagnoses Orde r Schedule EKG EKG Routine Palpitations Expected: 05/12/2023 (Approximate), Expires: 06/11/2024 PT INR Lab Routine Right leg swelling Expected: 05/12/2023 (Approximate), Expires: 05/11/2024 Health Maintenance Due Date Last Done Comments Depression Screening 05/30/2021 05/30/2020 COVID-19 Vaccine ( season) 2022 Albumin/Creatinine Ratio 07/20/2023 023, 04/06/2021, 05/30/2020, Additional history exists DXA Scan 10/22/2023 10/21/2021, 09/29, 08/28/2018, Additional history exists CKD PHOS USE SMARTSET 13244 11/06/2023 09/0 09/2022, 04/14/2022, 10/06/2021, Additional history exists CKD HGB USE SMARTSET 41768 03/17/202403/17, 03/17/2023, 12/14/2022, Additional history exists DTaP,Tdap,and Td Vaccines (2 - Td or Tdap) 12/31/2029 01/01/2020 (Declined), 12/30/2009, 12/30/2009, Additional history exists Pneumococcal Vaccine: 65+ Years Completed 02/08/2017, 02/23/2006 VITAMIN D LEVEL ONCE IN A LIFETIME-USE SMARTSET# 49736 Completed 11/05/2022, 04/14/2022, 03/08/2022, Additional history exists [...] this encounter Medical Devices Implanted Type Area Lead Tinner Device Identifier Shelf Expiration Date Model / Serial / Lot Lead Novus Bipolar 58cm - [id number] - [id number] Implanted:Qty: 1 on 04/11/2017 by Elda Patterson DO at OR [facility] Left: Heart [employer] : [employer] 12/18/2018 5076-58 / [id number] / Description:RIGHT VENTRICLE LEAD Lead Novus Bipolar 52cm - [id number] - [id number] Implanted:Qty: 1 on 04/11/2017 by Elda Patterson DO at OR [facility] Left: Heart [employer] : CRM 12/24/2018 5076-52 / [id number] / Description:RIGHT ATRIAL ROCKY D Pacer Advisa Dr Dorsey - [id number] - [id number] Implanted:Qty: 1 on 04/11/2017 by Elda Patterson DO at OR [facility] Left: Chest [employer] 08/25/2018 A2DR01 / [id number] / documented as of this encounter Visit Diagnoses Diagnosis Palpitations- Primary Right leg swelling documented in this encounter Advance Directives Documents on File Type Date Recorded Patient Thaw Shed Heater Tender Expl anation POLST 01/05/2021 [place] OR [facility] FOR LIFE-SUSTAINING TREATMENT Latest Code Status on File Code Status Date Activated Date Inactivated Comments Full Code 07/02/2008 9:35 AM 07/03/2008 5:40 PM Care Teams Toolroom Helper Relationship Specialty Start Date End Date Cathy Wilburn MD [address] [place] [address] [place] [phone] PCP - General Family Medicine 12/03/22 documented as of this encounter
--- OUTSIDE RECORDS SUMMARY | 2023-05-27 20:48 | External Medical Summary | Summary of Care ---
Author Name Unknown Organization [facility] Address [address] [place] [address] Phone [phone] Care Team Providers Care Senior Investment Analyst Name Role Phone Cathy Wilburn MD Primary Care Provide r Reason for Visit * Reason Onset Date Comments Test Results 04/25/2023 Encounter Details Date Type Department Care Team (Late st Contact Info) Description 04/25/[address] [place] [phone] Cathy Wilburn MD [address] [place] [address] [place], [place] [id number] Test Results Allergies Active Allergy Reactions Criticality [...] as of this encounter (statuses as of 04/25/2023) Medications Medication Sig Dispensed Refills Start Date [...] 40 MG Oral Tablet (Lipitor)Indication s:Atherosclerosis of [place] coronary artery of [place] heart without angina pectoris,Dyslipidem ia, goal LDL [...] as of this encounter (statuses as of 04/25/2023) Active Problems Problem Noted Date Diagnosed Date [...] lumbosacral intervertebral disc 02/04/2009 Coronary atherosclerosis of [place] coronary luis ry 02/24/2005 Senile osteoporosis 05/14/2003 Carpal tunnel syndrome 04/23/2003 Moderate mitral regurgitation GENERAL OSTEOARTHROSIS Gastroesophageal reflux disease without esophagi tis Vitamin D deficiency Hyperparathyroidism, primary documented as of this encounter (statuses as of 04/25/2023) Resolved Problems Problem Noted Date Diagnosed Date [...] 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 LOC PRIM [id number] 02/14/200205/30 Other seborrheic keratosis 10/31/2001 0 06/06/2007 [...] as of this encounter (statuses as of 04/25/2023) Immunizations Name Administration Dates Next Due Pneumococcal [...] Telephone Encounter - Cathy Wilburn MD - 04/25/2023 1:39 PM EST Will contact cardiology for recommendation documented in this encounter Plan of Treatment Upcoming Encounters Date Type Department Care Team (Late st Contact Info) Description 04/26/2023 2:00 PM EST Cardiac Studies Cardiology [address] [place] [address] [place] [address] [place] [address] 04/29/2023 8:10 AM EST Laboratory Lab [place] [facility] [address] [place] [address] [place], [facility] Mobile Home Draw [address] [place] [address] 04/29/2023 3:00 PM EST Office Visit Nephrology [address] [place] [address] Josie Butler MD [address] [place] [address] 05/02/2023 6:00 AM EST Anticoagulation Pharmacy Call Center WB [address] Public [place] [address] [facility], [facility] 58 60 [facility] [place] [address] 06/08/2023 2:00 PM EDT Laboratory Laboratory [address] [place] [phone] [place], Lab [address] [place] [address] 06/15/2023 2:30 PM EDT Office Visit Hematology/Oncology [facility] James Pacheco [address] [place] [phone] Matt Faustin MD [address] [place] [address] 06/24/2023 2:30 PM EDT Nurse Only Rheumatology [address] [place] [phone] [place], Nurse Rheum [address] [place] [phone] 08/02/2023 12:00 PM EDT Office Visit Cardiology [address] [place] [address] Poli Zepeda PA-C [address] [place] [address] 09/29/2023 10:00 AM EDT Office Visit Family Medicine [address] [place] [address] Cathy Wilburn MD [address] [place] [address] [place] [address] 10/12/2023 3:00 PM EDT Office Visit Sleep Disorders Ctr [facility] [address] [place] [phone] Isabel Diallo, [address] [place] [address] 01/23/2024 2:20 PM EST Office Visit Dermatology [address] [place] [address] Amber Orozco PA-C [address] [place] [address] [place] [address] Health Maintenance Due Date Last Done Comments Depression Screening 05/30/2021 05/30/2020 COVID-19 Vaccine ( season) 2022 Albumin/Creatinine Ratio 07/20/2023 023, 04/06/2021, 05/30/2020, Additional history exists DXA Scan 10/22/2023 10/21/2021, 09/29, 08/28/2018, Additional history exists CKD PHOS USE SMARTSET 35919 11/06/2023 09/0 09/2022, 04/14/2022, 10/06/2021, Additional history exists CKD HGB USE SMARTSET 33769 03/17/202403/17, 03/17/2023, 12/14/2022, Additional history exists DIG LEVEL FOR MEDICATION MONITORING YEARLY 04/22/2024 04/22/2023, 03/17/2023, 03/08/2022, Additional history exists DTaP,Tdap,and Td Vaccines (2 - Td or Tdap) 12/31/2029 01/01/2020 (Declined), 12/30/2009, 12/30/2009, Additional history exists Pneumococcal Vaccine: 65+ Years Completed 02/08/2017, 02/23/2006 VITAMIN D LEVEL ONCE IN A LIFETIME-USE SMARTSET# 21889 Completed 11/05/2022, 04/14/2022, 03/08/2022, Additional history exists [...] this encounter Medical Devices Implanted Type Area Soft Top Installer Device Identifier Shelf Expiration Date Model / Serial / Lot Lead Novus Bipolar 58cm - [id number] - [id number] Implanted:Qty: 1 on 04/11/2017 by Elda Pattersno DO at OR [facility] Left: Heart [employer] : [facility] 12/18/2018 5076-58 / [id number] / Description:RIGHT VENTRICLE LEAD Lead Novus Bipolar 52cm - [id number] - [id number] Implanted:Qty: 1 on 04/11/2017 by Elda Patterson DO at OR [facility] Left: Heart [employer] : [facility] 12/24/2018 5076-52 / [id number] / Description:RIGHT ATRIAL ROCKY D Pacer Advisa Dr Dorsey - [id number] - [id number] Implanted:Qty: 1 on 04/11/2017 by Elda Patterson DO at OR [facility] Left: Chest [employer] 08/25/2018 A2DR01 / [id number] / documented as of this encounter Advance Directives Documents on File Type Date Recorded Patient Sample Maker Original Expl anation POLST 01/05/2021 [place] OR [facility] FOR LIFE-SUSTAINING TREATMENT Latest Code Status on File Code Status Date Activated Date Inactivated Comments Full Code 07/02/2008 9:35 AM 07/03/2008 5:40 PM Care Teams Senior Investment Analyst Relationship Specialty Start Date End Date Cathy Wilburn MD [address] [place] [address] [place] [address] PCP - General Family Medicine 12/03/22 documented as of this encounter
--- OUTSIDE RECORDS SUMMARY | 2023-05-27 20:48 | External Medical Summary | Summary of Care ---
Author Name Unknown Organization [facility] Address [address] [place] [address] Phone [phone] Care Team Providers Care Embedded Software Programmer Name Role Phone Cathy Wilburn MD Primary Care Provide r Reason for Visit * Reason Comments Outpatient Testing Encounter Details Date Type Department Care Team (Late st Contact Info) Description 04/22/2023 12:10 PM EST Laboratory Laboratory [address] [place] [phone] [place] [address] Paroxysmal atrial fibrillation (HCC) Allergies Active Allergy Reactions Criticality Noted [...] as of this encounter (statuses as of 04/22/2023) Medications Medication Sig Dispensed Refills Start Date [...] 40 MG Oral Tablet (Lipitor)Indication s:Atherosclerosis of [place] coronary artery of [place] heart without angina pectoris,Dyslipidem ia, goal LDL [...] as of this encounter (statuses as of 04/22/2023) Active Problems Problem Noted Date Diagnosed Date [...] lumbosacral intervertebral disc 02/04/2009 Coronary atherosclerosis of [place] coronary luis ry 02/24/2005 Senile osteoporosis 05/14/2003 Carpal tunnel syndrome 04/23/2003 Moderate mitral regurgitation GENERAL OSTEOARTHROSIS Gastroesophageal reflux disease without esophagi tis Vitamin D deficiency Hyperparathyroidism, primary documented as of this encounter (statuses as of 04/22/2023) Resolved Problems Problem Noted Date Diagnosed Date [...] 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 LOC PRIM [id number] 02/14/200205/30 Other seborrheic keratosis 10/31/2001 0 06/06/2007 [...] as of this encounter (statuses as of 04/22/2023) Immunizations Name Administration Dates Next Due Pneumococcal [...] Team (Late st Contact Info) Description 04/25/2023 1:00 PM EST Office Visit Endocrinology, [place] [address] [place] [address] Deana Vargas MD [address] [place] [address] 04/26/2023 2:00 PM EST Cardiac Studies Cardiology [address] [place] [address] [place] [facility] [address] [place] [address] 04/29/2023 8:10 AM EST Laboratory Lab Mobile Phlebotomy [facility] [address] [place] [address] [facility], [facility] Mobile Home Draw [address] [place] [address] 04/29/2023 3:00 PM EST Office Visit Nephrology [address] [place] [address] Josie Butler MD [address] [place] [address] 05/02/2023 6:00 AM EST Anticoagulation Pharmacy Call Center WB [address] [place] [address] [facility], [facility] 58 60 [facility] [place] [address] 06/08/2023 2:00 PM EDT Laboratory Laboratory [address] [place] [address] [place], Lab [address] [place] [address] 06/15/2023 2:30 PM EDT [facility] 200 [facility] [place] [phone] Matt Faustin MD [address] [place] [address] 06/24/2023 2:30 PM EDT Nurse Only Rheumatology [address] [place] [phone] [place], Nurse Rheum [address] [place] [address] 08/02/2023 12:00 PM EDT Office Visit Cardiology [address] [place] [address] Poli Zepeda PA-C [address] [place] [address] 09/29/2023 10:00 AM EDT Office Visit Family Medicine [address] [place] [phone] Cathy Wilburn MD [address] [place] [address] [place] [address] 10/12/2023 3:00 PM EDT Office Visit Sleep Disorders Ctr [facility] [address] [place] [phone] Isabel Diallo, [address] [place] [address] 01/23/2024 2:20 PM EST Office Visit Dermatology [address] [place] [address] Amber Orozco PA-C [address] [place] [address] [place] [address] Pending Results Name Type Priority Associated Diagnoses Date /Time DIGOXIN LEVEL Lab Routine Paroxysmal atrial fibrillation (HCC) 04/22/2023 12:08 PM EST Health Maintenance Due Date Last Done Comments Depression Screening 05/30/2021 05/30/2020 COVID-19 Vaccine ( season) 2022 Albumin/Creatinine Ratio 07/20/2023 023, 04/06/2021, 05/30/2020, Additional history exists DXA Scan 10/22/2023 10/21/2021, 09/29, 08/28/2018, Additional history exists CKD PHOS USE SMARTSET 06756 11/06/2023 09/0 09/2022, 04/14/2022, 10/06/2021, Additional history exists CKD HGB USE SMARTSET 01309 03/17/202403/17, 03/17/2023, 12/14/2022, Additional history exists DIG LEVEL FOR MEDICATION MONITORING YEARLY 03/17/2024 03/17/2023, 03/08/2022, 06/12/2021, Additional history exists DTaP,Tdap,and Td Vaccines (2 - Td or Tdap) 12/31/2029 01/01/2020 (Declined), 12/30/2009, 12/30/2009, Additional history exists Pneumococcal Vaccine: 65+ Years Completed 02/08/2017, 02/23/2006 VITAMIN D LEVEL ONCE IN A LIFETIME-USE SMARTSET# 11096 Completed 11/05/2022, 04/14/2022, 03/08/2022, Additional history exists [...] this encounter Medical Devices Implanted Type Area Recovery Assistant Device Identifier Shelf Expiration Date Model / Serial / Lot Lead Novus Bipolar 58cm - [id number] - [id number] Implanted:Qty: 1 on 04/11/2017 by Elda Patterson DO at OR [facility] Left: Heart [employer] : [facility] 12/18/2018 5076-58 / [id number] / Description:RIGHT VENTRICLE LEAD Lead Novus Bipolar 52cm - [id number] - [id number] Implanted:Qty: 1 on 04/11/2017 by Elda Patterson DO at OR [facility] Left: Heart [employer] : [facility] 12/24/2018 5076-52 / [id number] / Description:RIGHT ATRIAL ROCKY D Pacer Advisa Dr Dorsey - [id number] - [id number] Implanted:Qty: 1 on 04/11/2017 by Elda Patterson DO at OR [facility] Left: Chest [employer] 08/25/2018 A2DR01 / [id number] / documented as of this encounter Visit Diagnoses Diagnosis Paroxysmal atrial fibrillation (HCC) Atrial fibrillation documented in this encounter Advance Directives Documents on File Type Date Recorded Patient Retail Store Clerk Expl anation POLST 01/05/2021 [place] OR [facility] FOR LIFE-SUSTAINING TREATMENT Latest Code Status on File Code Status Date Activated Date Inactivated Comments Full Code 07/02/2008 9:35 AM 07/03/2008 5:40 PM Care Teams Embedded Software Programmer Relationship Specialty Start Date End Date Cathy Wilburn MD [address] [place] [address] [place] [phone] PCP - General Family Medicine 12/03/22 documented as of this encounter
--- OUTSIDE RECORDS SUMMARY | 2023-05-27 20:48 | External Medical Summary | Summary of Care ---
Author Name Unknown Organization [facility] Address [address] [place] [address] Phone [phone] Care Team Providers Care Child And Family Counselor Name Role Phone Maxwell Fregoso MD Primary Care Provide r Reason for Visit * Reason Onset Date Comments Test Results 04/25/2023 Encounter Details Date Type Department Care Team (Late st Contact Info) Description 04/25/[address] [place] [address] Maxwell Fregoso MD [address] [place] [address] [place] [id number] Test Results Allergies Active Allergy Reactions Criticality [...] 40 MG Oral Tablet (Lipitor)Indication s:Atherosclerosis of [place] coronary artery of [place] heart without angina pectoris,Dyslipidem [place], goal LDL [...] lumbosacral intervertebral disc 02/04/2009 Coronary atherosclerosis of [place] coronary luis ry 02/24/2005 Senile osteoporosis 05/14/2003 [...] 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 LOC PRIM [id number] 02/14/200205/30 Other seborrheic keratosis 10/31/2001 0 06/06/2007 [...] encounter Miscellaneous Notes * Addendum Note - Maxwell Fregoso MD - 04/26/2023 12:16 PM ESTAddended by: MAXWELL FREGOSO on: 04/26/2023 12:16 PM Modules accepted: Orders * Telephone Encounter - Maxwell Fregoso MD - 04/26/2023 12:14 PM EST Per pt she is taking digoxin M,W,F - since the level is elevated will hold and repeat digoxin on Tuesday - discussed the case with Cardiology --- okay to hold and getting pacer check today Will do home blood draw for digoxin * Telephone Encounter - Maxwell Fregoso MD - 04/25/2023 1:39 PM EST Will contact cardiology for recommendation documented in this encounter Plan of Treatment Upcoming Encounters Date Type Department Care Team (Late st Contact Info) Description 04/26/2023 2:00 PM EST Cardiac Studies Cardiology [address] [place] [address] [facility] Pacer [address] [place] [address] 04/29/2023 8:10 AM EST Laboratory Lab [facility] [address] [place] [address] [facility] [place] [facility] Mobile [facility] Draw [address] [place] [address] 04/29/2023 3:00 PM EST Office Visit Nephrology [address] [place] [address] Josie Butler MD [address] [place] [address] 05/02/2023 6:00 AM EST Anticoagulation Pharmacy Call Center [address] [place] [address] [facility] [address] [place] [address] 06/08/2023 2:00 PM EDT Laboratory Laboratory [address] [place] [phone] [place] [address] 06/15/2023 2:30 PM EDT Office Visit Hematology/Oncology [facility] Gard[facility] [address] [place] [phone] Matt Faustin MD [address] [place] [address] 06/24/2023 2:30 PM EDT Nurse Only Rheumatology [address] [place] [phone] [place], Nurse Rheum [address] [place] [address] 08/02/2023 12:00 PM EDT Office Visit Cardiology [address] [place] [address] Poli Zepeda PA-C [address] [place] [address] 09/29/2023 10:00 AM EDT Office Visit Family Medicine [address] [place] [phone] Maxwell Fregoso MD [address] [place] [address] [place] [address] 10/12/2023 3:00 PM EDT Office Visit Sleep Disorders [facility] [address] [place] [phone] Isabel Diallo DO [address] [place] [address] 01/23/2024 2:20 PM EST Office Visit Dermatology [address] [place] [address] Amber Orozco PA-C [address] [place] [address] [place] [address] Scheduled Orders Name Type Priority Associated Diagnoses Orde r Schedule DIGOXIN LEVEL Lab Routine Paroxysmal atrial fibrillation (HCC) Expected: 04/29/2023 (Approximate), Expires: 04/25/2024 Health Maintenance Due Date Last Done Comments Depression Screening 05/30/2021 05/30/2020 COVID-19 Vaccine ( season) 2022 Albumin/Creatinine Ratio 07/20/2023 023, 04/06/2021, 05/30/2020, Additional history exists DXA Scan 10/22/2023 10/21/2021, 09/29, 08/28/2018, Additional history exists CKD PHOS USE SMARTSET 49637 11/06/2023 09/0 09/2022, 04/14/2022, 10/06/2021, Additional history exists CKD HGB USE SMARTSET 71283 03/17/202403/17, 03/17/2023, 12/14/2022, Additional history exists DIG LEVEL FOR MEDICATION MONITORING YEARLY 04/22/2024 04/22/2023, 03/17/2023, 03/08/2022, Additional history exists DTaP,Tdap,and Td Vaccines (2 - Td or Tdap) 12/31/2029 01/01/2020 (Declined), 12/30/2009, 12/30/2009, Additional history exists Pneumococcal Vaccine: 65+ Years Completed 02/08/2017, 02/23/2006 VITAMIN D LEVEL ONCE IN A LIFETIME-USE SMARTSET# 73753 Completed 11/05/2022, 04/14/2022, 03/08/2022, Additional history exists [...] this encounter Medical Devices Implanted Type Area Fire Behavior Analyst Device Identifier Shelf Expiration Date Model / Serial / Lot Lead Novus Bipolar 58cm - [id number] - [id number] Implanted:Qty: 1 on 04/11/2017 by Elda Patterson DO at OR [facility] Left: Heart [employer] : CRM 12/18/2018 5076-58 / [id number] / Description:RIGHT VENTRICLE LEAD Lead Novus Bipolar 52cm - [id number] - [id number] Implanted:Qty: 1 on 04/11/2017 by Elda Patterson DO at OR [facility] Left: Heart [employer] : CRM 12/24/2018 5076-52 / [id number] / Description:RIGHT ATRIAL ROCKY D Pacer Advisa Dr Dorsey - [id number] - [id number] Implanted:Qty: 1 on 04/11/2017 by Elda Patterson DO at OR [facility] Left: Chest [employer] 08/25/2018 A2DR01 / [id number] / documented as of this encounter Visit Diagnoses Diagnosis Paroxysmal atrial fibrillation (HCC)- Primary Atrial fibrillation documented in this encounter Advance Directives Documents on File Type Date Recorded Patient Medical Front Desk Specialist Expl anation POLST 01/05/2021 [place] OR DERS FOR LIFE-SUSTAINING TREATMENT Latest Code Status on File Code Status Date Activated Date Inactivated Comments Full Code 07/02/2008 9:35 AM 07/03/2008 5:40 PM Care Teams Child And Family Counselor Relationship Specialty Start Date End Date Maxwell Fregoso MD [address] [place] [address] [place] [address] PCP - General Family Medicine 12/03/22 documented as of this encounter
--- OUTSIDE RECORDS SUMMARY | 2023-05-27 20:48 | External Medical Summary | Summary of Care ---
Author Name Unknown Organization [facility] Address [address] [place] [address] Phone [phone] Care Team Providers Care Marble Chip Terrazzo Worker Name Role Phone Cathy Wilbrun MD Primary Care Provide r Reason for Visit * Reason Onset Date Comments Medication Question 04/05/2023 Encounter Details Date Type Department Care Team (Late st Contact Info) Description 04/05/[address] [place] [address] Cathy Wilburn MD [address] [place] [address] [place], [place] [id number] Medication Question Allergies Active Allergy Reactions Criticality Noted Date [...] as of this encounter (statuses as of 04/05/2023) Medications Medication Sig Dispensed Refills Start Date [...] 40 MG Oral Tablet (Lipitor)Indication s:Atherosclerosis of [place] coronary artery of [place] heart without angina pectoris,Dyslipidem ia, goal LDL [...] mouth in the morning. 0 03/31/2023 Active Digoxin 125 MCG Oral Tablet (Lanoxin) Take 1 Tablet by mouth once a day on Tuesday, Tuesday, and Tuesday only. 0 04/01/2023 Active DULoxetine HCl 30 MG Oral Capsule [...] THE MORNING 90 Tablet 3 04/02/2023 Active documented as of this encounter (statuses as of 04/05/2023) Active Problems Problem Noted Date Diagnosed Date Hyperparathyroidism 03/17/2023 Stage 3 chronic kidney disease 03/17/2023 Essential (primary) hypertension 03/17/2023 Hypertensive heart [...] lumbosacral intervertebral disc 02/04/2009 Coronary atherosclerosis of [place] coronary luis ry 02/24/2005 Senile osteoporosis 05/14/2003 Carpal tunnel syndrome 04/23/2003 Moderate mitral regurgitation GENERAL OSTEOARTHROSIS Gastroesophageal reflux disease without esophagi tis Vitamin D deficiency Hyperparathyroidism, primary documented as of this encounter (statuses as of 04/05/2023) Resolved Problems Problem Noted Date Diagnosed Date Resolved Date Acute pulmonary embolism 07/17/2021 Chronic systolic heart [...] 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 LOC PRIM [id number] 02/14/200205/30 Other seborrheic keratosis 10/31/2001 0 06/06/2007 [...] as of this encounter (statuses as of 04/05/2023) Immunizations Name Administration Dates Next Due Pneumococcal [...] encounter Miscellaneous Notes * Telephone Encounter - Damián Esteban vp scientific - 04/05/2023 1:17 PM EST Pt's pharmacy calling for clarification of Digoxin 125 MCG Oral Tablet (Lanoxin) . Warm transferred caller to specialty line. Thank you, Damián Esteban Side [facility]immer [facility] ([facility])(formerly Telepharmacy) 04/05/2023,1:21 PM documented in this encounter Plan of Treatment Upcoming Encounters Date Type Department Care Team (Late st Contact Info) Description 04/25/2023 1:00 PM EST Office Visit Endocrinology, [place] [address] [place] [address] Deana Vargas MD [address] [place] [address] 04/26/2023 2:00 PM EST Cardiac Studies Cardiology [address] [place] [address] [facility] Pac[facility] [address] [place] [address] 04/29/2023 8:10 AM EST Laboratory Lab Mobile Phlebotomy [facility] [address] [place] [address] [facility] [place] Mobile Home Draw [address] [place] [address] 04/29/2023 3:00 PM EST Office Visit Nephrology [address] [place] [address] Joise Butler MD [address] [place] [address] 05/02/2023 6:00 AM EST Anticoagulation Pharmacy Call Center [address] [facility] [place] [address] [facility] [address] [place] [address] 06/08/2023 2:00 PM EDT Laboratory Laboratory [address] [place] [phone] [place], Lab [address] [place] [address] 06/15/2023 2:30 PM EDT [facility] [address] [place] [address] Matt Faustin MD [address] [place] [address] 06/24/2023 2:30 PM EDT Nurse Only Rheumatology [address] [place] [phone] [place], Nurse Rheum [address] [place] [phone] 08/02/2023 12:00 PM EDT Office Visit Cardiology [address] [place] [address] Poli Zepeda PA-C [address] [place] [address] 09/29/2023 10:00 AM EDT Office Visit Family Medicine [address] [place] [phone] Cathy Wilburn MD [address] [place] [address] [place] [address] 10/12/2023 3:00 PM EDT Office Visit Sleep Disorders [facility] [address] [place] [phone] Isabel Diallo DO [address] [place] [address] 01/23/2024 2:20 PM EST Office Visit Dermatology [address] [place] [address] Amber Orozco PA-C [address] [place] [address] [place] [address] Health Maintenance Due Date Last Done Comments COVID-19 Vaccine (#1) 1937 Depression Screening 05/30/2021 05/30/2020 Albumin/Creatinine Ratio 07/20/2023 023, 04/06/2021, 05/30/2020, Additional history exists DXA Scan 10/22/2023 10/21/2021, 09/29, 08/28/2018, Additional history exists CKD PHOS USE SMARTSET 35111 11/06/2023 09/0 09/2022, 04/14/2022, 10/06/2021, Additional history exists CKD HGB USE SMARTSET 21869 03/17/202403/17, 03/17/2023, 12/14/2022, Additional history exists DIG LEVEL FOR MEDICATION MONITORING YEARLY 03/17/2024 03/17/2023, 03/08/2022, 06/12/2021, Additional history exists DTaP,Tdap,and Td Vaccines (2 - Td or Tdap) 12/31/2029 01/01/2020 (Declined), 12/30/2009, 12/30/2009, Additional history exists Pneumococcal Vaccine: 65+ Years Completed 02/08/2017, 02/23/2006 VITAMIN D LEVEL ONCE IN A LIFETIME-USE SMARTSET# 15141 Completed 11/05/2022, 04/14/2022, 03/08/2022, Additional history exists [...] this encounter Medical Devices Implanted Type Area Account Strategist Device Identifier Shelf Expiration Date Model / Serial / Lot Pacer Advisa Dr Dorsey - [id number] - [id number] Implanted:Qty: 1 on 04/11/2017 by Elda Patterson DO at OR [facility] Left: Chest [employer] 08/25/2018 A2DR01 / [id number] / documented as of this encounter Advance Directives Documents on File Type Date Recorded Patient Paper Tube Cutter Expl anation POLST 01/05/2021 [place] OR [facility] FOR LIFE-SUSTAINING TREATMENT Latest Code Status on File Code Status Date Activated Date Inactivated Comments Full Code 07/02/2008 9:35 AM 07/03/2008 5:40 PM Care Teams Marble Chip Terrazzo Worker Relationship Specialty Start Date End Date Cathy Wilburn MD [address] [place] [address] [place] [address] PCP - General Family Medicine 12/03/22 documented as of this encounter
--- OUTSIDE RECORDS SUMMARY | 2023-05-27 20:48 | External Medical Summary | Summary of Care ---
Author Name Unknown Organization [facility] Address [address] [place] [address] Phone [phone] Care Team Providers Care Bearing Press Machine Operator Name Role Phone Maxwell Fregoso MD Primary Care Provide r Reason for Visit * Reason Onset Date Comments Test Results 04/25/2023 Encounter Details Date Type Department Care Team (Late st Contact Info) Description 04/25/[address] [place] [address] Maxwell Fregoso MD [address] [place] [address] [place] [id number] Test Results Allergies Active Allergy Reactions Criticality [...] 40 MG Oral Tablet (Lipitor)Indication s:Atherosclerosis of [place] coronary artery of [place] heart without angina pectoris,Dyslipidem ia, goal LDL [...] lumbosacral intervertebral disc 02/04/2009 Coronary atherosclerosis of [place] coronary luis ry 02/24/2005 Senile osteoporosis 05/14/2003 [...] 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 LOC PRIM [id number] 02/14/200205/30 Other seborrheic keratosis 10/31/2001 0 06/06/2007 [...] 04/26/2023 2:00 PM EST Cardiac Studies Cardiology [address] [place] [address] [facility] Pacer [address] [place] [address] 04/29/2023 8:10 AM EST Laboratory Lab [facility] [address] [place] [address] [facility] [place] Mobile Home Draw [address] [place] [address] 04/29/2023 3:00 PM EST Office Visit Nephrology [address] [place] [address] Josie Butler MD [address] [place] [address] 05/02/2023 6:00 AM EST Anticoagulation Pharmacy Call Center [address] [place] [address] [facility] [address] [place] [address] 06/08/2023 2:00 PM EDT Laboratory Laboratory [address] [place] [phone] [place] [address] 06/15/2023 2:30 PM EDT Office Visit Hematology/Oncology State James Gardiner [address] [place] [phone] Matt Faustin MD [address] [place] [address] 06/24/2023 2:30 PM EDT Nurse Only Rheumatology [address] [place] [phone] [place], Nurse Rheum [address] [place] [address] 08/02/2023 12:00 PM EDT Office Visit Cardiology [address] [place] [address] Poli Zepeda PA-C [address] [place] [address] 09/29/2023 10:00 AM EDT Office Visit Family Medicine [address] [place] [phone] Maxwell Fregoso MD [address] [place] [address] [place] [address] 10/12/2023 3:00 PM EDT Office Visit Sleep Disorders [facility] [address] [place] [phone] Isabel Diallo DO [address] [place] [address] 01/23/2024 2:20 PM EST Office Visit Dermatology [address] [place] [address] Amber Orozco PA-C [address] [place] [address] [place] [address] Scheduled Orders Name Type Priority Associated Diagnoses Orde r Schedule DIGOXIN LEVEL Lab Routine Paroxysmal atrial fibrillation (HCC) Expected: 04/29/2023 (Approximate), Expires: 04/25/2024 Health Maintenance Due Date Last Done Comments Depression Screening 05/30/2021 05/30/2020 COVID-19 Vaccine ( season) 2022 Albumin/Creatinine Ratio 07/20/2023 023, 04/06/2021, 05/30/2020, Additional history exists DXA Scan 10/22/2023 10/21/2021, 09/29, 08/28/2018, Additional history exists CKD PHOS USE SMARTSET 37078 11/06/2023 09/0 09/2022, 04/14/2022, 10/06/2021, Additional history exists CKD HGB USE SMARTSET 83322 03/17/202403/17, 03/17/2023, 12/14/2022, Additional history exists DIG LEVEL FOR MEDICATION MONITORING YEARLY 04/22/2024 04/22/2023, 03/17/2023, 03/08/2022, Additional history exists DTaP,Tdap,and Td Vaccines (2 - Td or Tdap) 12/31/2029 01/01/2020 (Declined), 12/30/2009, 12/30/2009, Additional history exists Pneumococcal Vaccine: 65+ Years Completed 02/08/2017, 02/23/2006 VITAMIN D LEVEL ONCE IN A LIFETIME-USE SMARTSET# 99682 Completed 11/05/2022, 04/14/2022, 03/08/2022, Additional history exists [...] this encounter Medical Devices Implanted Type Area Storeroom Keeper Device Identifier Shelf Expiration Date Model / Serial / Lot Lead Novus Bipolar 58cm - [id number] - [id number] Implanted:Qty: 1 on 04/11/2017 by Elda Patterson DO at OR [facility] Left: Heart [employer] : CRM 12/18/2018 5076-58 / [id number] / Description:RIGHT VENTRICLE LEAD Lead Novus Bipolar 52cm - [id number] - [id number] Implanted:Qty: 1 on 04/11/2017 by Elda Patterson DO at OR [facility] Left: Heart [employer] : CRM 12/24/2018 5076-52 / [id number] / Description:RIGHT ATRIAL ROCKY D Pacer Advisa Dr Dorsey - [id number] - [id number] Implanted:Qty: 1 on 04/11/2017 by Elda Patterson DO at OR [facility] Left: Chest [employer] 08/25/2018 A2DR01 / [id number] / documented as of this encounter Visit Diagnoses Diagnosis Paroxysmal atrial fibrillation (HCC)- Primary Atrial fibrillation documented in this encounter Advance Directives Documents on File Type Date Recorded Patient Acquisition Consultant Expl anation POLST 01/05/2021 [place] OR DERS FOR LIFE-SUSTAINING TREATMENT Latest Code Status on File Code Status Date Activated Date Inactivated Comments Full Code 07/02/2008 9:35 AM 07/03/2008 5:40 PM Care Teams Bearing Press Machine Operator Relationship Specialty Start Date End Date Maxwell Fregoso MD [address] [place] [address] [place] [address] PCP - General Family Medicine 12/03/22 documented as of this encounter
--- OUTSIDE RECORDS SUMMARY | 2023-05-27 20:48 | External Medical Summary ---
Author Name Unknown Address Unknown Organization K01:[facility] [place] - [address] [place] [address] Laboratory Report Ordering Provider Test Date Status ILDEFONSO ARREOLA 04/22/2023 12:08:42 Litzy l Recommended trough therapeut ic ranges:
0.5 to 0.8 for heart failure
0.5 to 1.1 for atrial fibrillation Observation Date Value Abnormality Reference (Units ) Status Digoxin 04/22/2023 12:08:42 1.5 Above high normal 0. 5-1.1 (ng/mL) Final Performing Location [facility] [place] - [address] [place] [address]
--- OUTSIDE RECORDS SUMMARY | 2023-05-27 20:48 | External Medical Summary | Summary of Care ---
Author Name Unknown Organization [facility] Address [address] [place] [address] Phone [phone] Care Team Providers Care System Software Programmer Name Role Phone Cathy Wilburn MD Primary Care Provide r Reason for Visit * Reason Onset Date Comments Medication Refill 04/05/2023 Encounter Details Date Type Department Care Team (Late st Contact Info) Description 04/05/2023 Refill Cardiology, [facility] [address] [facility] [place] [address] Aylin Hawkins PA-C [address] [place] [address] Persistent atrial fibrillation (HCC)*; Tachy-kraig syndrome (HCC) Allergies Active Allergy Reactions Criticality Noted [...] Tablet 07/06/2022 Active Benzonatate 100 MG Oral CapsuleIndication [...] MG Oral Tablet (Lipitor)Indicati ons:Atheroscleros is of [place] coronary artery of [place] heart without angina pectoris,Dyslipid emia, goal LDL [...] 04/02/2023 Active Digoxin 125 MCG Oral Tablet (Lanoxin)Indicati ons:Persistent atrial fibrillation (HCC),Tachy-kraig syndrome (HCC) Take 1 Tablet by mouth once a day on Tuesday, Tuesday, and Tuesday only. 40 Tablet 3 04/06/2023 Active Digoxin 125 MCG Oral Tablet (Lanoxin) Take 1 Tablet by mouth once a day on Tuesday, Tuesday, and Tuesday only. 0 04/01/2023 4 Discontinue d(Refill) documented as of this encounter (statuses as [...] lumbosacral intervertebral disc 02/04/2009 Coronary atherosclerosis of [place] coronary luis ry 02/24/2005 Senile osteoporosis 05/14/2003 [...] 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 LOC PRIM [id number] 02/14/2002 04/2 04/2007 Other seborrheic keratosis 10/31/2001 [...] encounter Miscellaneous Notes * Telephone Encounter - Aylin Hawkins PA-C - 04/05/2023 1:59 PM ESTSigned Prescriptions: Disp Refills Digoxin 125 MCG Oral Tablet (Lanoxin) 40 Tab*3 Sig: Take 1 Tablet by mouth once a day on Tuesday, Tuesday, and Tuesday only. Authorizing Provider: AYLIN HAWKINS * Telephone Encounter - Mirna Shah COT - 04/05/2023 1:31 PM ESTPending Prescriptions: Disp Refills Digoxin 125 MCG Oral Tablet (Lanoxin) 40 Tab*3 Sig: Take 1 Tablet by mouth once a day on Tuesday, Tuesday, and Tuesday only. * Telephone Encounter - Madison Reyes CPhT - 04/05/2023 1:20 PM EST Did you pend patient's preferred pharmacy and medication before forwarding?yes Pharmacy: [facility], [address] changed 2.2.24 Pending Prescriptions: Disp Refills Digoxin 125 MCG Oral Tablet (Lanoxin) 12 Tab*1 Sig: Take 1 Tablet by mouth once a day on Tuesday, Tuesday, and Tuesday only. Last Visit: 02/09/2021 (in office), Visit date not found (telemedicine) Next Visit: Visit date not found If no future appointments scheduled, and last appointment is greater than a year ago, please schedule patient for a follow-up appointment Last date the medication was ordered: 2.2.24 Is this request for a controlled substance?No Urine Drug Screen:No results found. However, due to the size of the patient record, not all encounters were searched. Please check Results Review for a complete set of results. Patient Phone Numbers mobile [phone] Labs: Lab Results Component Value Date/Time CREAT 1.2 (H) 03/17/2023 01:41 PM CREAT 1.0 01/30/2020 01:01 PM POTASSIUM 4.8 03/17/2023 01:41 PM POTASSIUM 3.8 01/30/2020 01:01 PM TSH 1.65 03/17/2023 01:41 PM TSH 1.92 10/31/2019 01:05 PM LDLCALC 60 03/17/2023 01:41 PM LDLCALC 82 10/31/2019 01:05 PM LDLDIRECT 81 07/09/2021 11:35 AM LDLDIRECT NOT APPLICABLE 10/31/2019 01:05 PM LDLDIRECT 74 10/12/2006 09:47 AM ALT 23 12/14/2022 03:25 PM ALT 26 10/31/2019 01:05 PM documented in this encounter Plan of Treatment Upcoming Encounters Date Type Department Care Team (Late st Contact Info) Description 04/25/2023 1:00 PM EST Office Visit Endocrinology, [place] [address] [place] [address] Deana Vargas MD [address] [place] [address] 04/26/2023 2:00 PM EST Cardiac Studies Cardiology [address] [place] [address] [facility], Pacer [address] [address] 04/29/2023 8:10 AM EST Laboratory Lab Mobile Phlebotomy [facility] [address] [place] [address] [facility] Mobile Home Draw [address] [place] [address] 04/29/2023 3:00 PM EST Office Visit Nephrology [address] [place] [address] Josie Butler MD [address] [place] [address], [place] [address] 05/02/2023 6:00 AM EST Anticoagulation Pharmacy Call Center [facility] [address] [facility] [place] [address] [facility] [address] [facility] [place] [address] 06/08/2023 2:00 PM EDT Laboratory Laboratory [address] [place] [phone] [place] [address] 06/15/2023 2:30 PM EDT Office Visit Hematology/Oncology [facility] [address] [place] [address] Matt Faustin MD [address] [place] [address] 06/24/2023 2:30 PM EDT Nurse Only Rheumatology [address] [place] [phone] [place], Nurse [address] [place] [phone] 08/02/2023 12:00 PM EDT Office Visit Cardiology [address] [place] [address] Aylin Hawkins PAJuanC [address] [place] [address] 09/29/2023 10:00 AM EDT Office Visit Family Medicine [address] [place] [phone] Cathy Wilburn MD [address] [place] [address] [place] [address] 10/12/2023 3:00 PM EDT Office Visit Sleep Disorders Ctr [facility] [address] [place] [phone] Isabel Diallo DO [address] [place] [address] 01/23/2024 2:20 PM EST Office Visit Dermatology [address] [place] [address] Amber Orozco PA-C [address] [place] [address] [place] [phone] Health Maintenance Due Date Last Done Comments COVID-19 Vaccine (#1) 1935 Depression Screening 05/30/2021 05/30/2020 Albumin/Creatinine Ratio 07/20/2023 023, 04/06/2021, 05/30/2020, Additional history exists DXA Scan 10/22/2023 10/21/2021, 09/29, 08/28/2018, Additional history exists CKD PHOS USE SMARTSET 55330 11/06/2023 09/0 09/2022, 04/14/2022, 10/06/2021, Additional history exists CKD HGB USE SMARTSET 87310 03/17/202403/17, 03/17/2023, 12/14/2022, Additional history exists DIG LEVEL FOR MEDICATION MONITORING YEARLY 03/17/2024 03/17/2023, 03/08/2022, 06/12/2021, Additional history exists DTaP,Tdap,and Td Vaccines (2 - Td or Tdap) 12/31/2029 01/01/2020 (Declined), 12/30/2009, 12/30/2009, Additional history exists Pneumococcal Vaccine: 65+ Years Completed 02/08/2017, 02/23/2006 VITAMIN D LEVEL ONCE IN A LIFETIME-USE SMARTSET# [id number] Completed 11/05/2022, 04/14/2022, 03/08/2022, Additional history exists [...] this encounter Medical Devices Implanted Type Area Hand Candle Molder Device Identifier Shelf Expiration Date Model / Serial / Lot Pacer Advisa Dr Dorsey - [id number] - [id number] Implanted:Qty: 1 on 04/11/2017 by Elda Patterson DO at OR [facility] Left: Chest [employer] 08/25/2018 [id number] / [id number] / documented as of this encounter Visit Diagnoses Diagnosis Persistent atrial fibrillation (HCC)- Primary Atrial fibrillation Tachy-kraig syndrome (HCC) Sinoatrial node dysfunction documented in this encounter Advance Directives Documents on File Type Date Recorded Patient Crew Attendant Expl anation POLST 01/05/2021 [place] [facility]-SUSTAINING TREATMENT Latest Code Status on File Code Status Date Activated Date Inactivated Comments Full Code 07/02/2008 9:35 AM 07/03/2008 5:40 PM Care Teams System Software Programmer Relationship Specialty Start Date End Date Cathy Wilburn MD [address] [place] [address] [place] [phone] PCP - General Family Medicine 12/03/22 documented as of this encounter
--- OUTSIDE RECORDS SUMMARY | 2023-05-27 20:48 | External Medical Summary | Summary of Care ---
Author Name Unknown Organization [facility] Address [address] [place] [address] Phone [phone] Care Team Providers Care Ship Surveyor Name Role Phone Cathy Wilburn MD Primary Care Provide r Reason for Visit * Reason Comments Follow Up Encounter Details Date Type Department Care Team (Late st Contact Info) Description 04/25/2023 1:00 PM EST Office Visit Endocrinology, [place] [address] [place] [address] Deana Vargas MD [address] [place] [address] Hyperparathyroidism, primary (HCC)*; Multiple thyroid nodules; Chronic kidney disease, unspecified CKD stage; Age related osteoporosis, unspecified pathological fracture presence Allergies Active Allergy Reactions Criticality Noted Date [...] 40 MG Oral Tablet (Lipitor)Indication s:Atherosclerosis of [place] coronary artery of [place] heart without angina pectoris,Dyslipidem ia, goal LDL [...] lumbosacral intervertebral disc 02/04/2009 Coronary atherosclerosis of [place] coronary luis ry 02/24/2005 Senile osteoporosis 05/14/2003 [...] 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 LOC PRIM [id number] 02/14/200205/30 Other seborrheic keratosis 10/31/2001 0 06/06/2007 [...] Sign Reading Time Taken Comments Blood Pressure 124/68 04/25/2023 12:45 PM EST Pulse 91 04/25/2023 12:45 PM EST Temperature - - Respiratory Rate - - Oxygen Saturation - - Inhaled Oxygen Concentration - - Weight 82.7 kg (182 lb 4.8 oz) 04/25/2023 12:45 PM EST Height 170.2 cm (5' 7") 04/25/2023 12:45 PM EST Body Mass Index 28.55 04/25/2023 12:45 PM EST documented in this [...] this encounter Patient Instructions * Patient Instructions* Deana Vargas MD - 04/25/2023 1:32 PM EST Aim for 2-3 servings of calcium daily Take 2000 units of vitamin D3 daily Calcium labs soon and before next visit in December Dexa before December appointment as well documented in this encounter Progress Notes * Deana Vargas MD - 04/25/2023 1:07 PM EST Images from the original note were not included. CC Follow up Hyperparathyroidism-parathyroidectomy in 2008---? Hyperparathyroidism recurrence Osteoporosis HPI Hyperparathyroidism Persistent hypercalcemia with fluctuation at least since 2019 Recent highest calcium has been 11.7 Fluctuation in GFR+ Persistent PTH elevation. Per the documentation status post parathyroid exploration [place] [address] Gonzalez Right parathyroid, biopsy: Morphological and histochemical features consistent with parathyroid adenoma. Clinical History Pre-op Diagnosis: Hyperparathyroidism. -Had colon cancer- had resection Had surgery- 03/2021 Had DVT/ PE- 05/2021 Went back to group home No family history of hyperparathyroidism, hypercalcemia, nephrolithiasis, pituitary tumors, or ulcer disease. Dr Hartley encouraged her to talk to Dr. Stevenson about repeat surgery: Seen on 05/2022: Plan: I did offer patient parathyroid re-exploration. Discussed that her PTH is elevated to 568 and her osteoporosis has worsened. She declined surgery today as she was treated for colon cancer last year and did have a colon surgery. She states she can not proceed with further surgery at the present time. She was provided my business card and encouraged to call the office if she decided she wished to proceed with surgical intervention. No calcium supplementation. No vitamin D supplementation. No thiazides. (on lasix) Has history of osteoporosis. On Prolia- every 6 months--since 2016--seeing Rheumatology No recent low trauma fractures. No nephrolithiasis. Has renal insufficiency. -had colon caner and resected- 03/2021 Has allergy to iodine-- severe Last appt: 10/25/2022 (in office), 12/09/2021 (telemedicine) Interval: Doing very well Latest calcium levels have been normal Continues to receive Prolia every 6 months-last dose was November 2022 I believe with next dose due in May, tolerating well Latest PTH high but improved Multiple falls as she has bad knees but fortunately no fractures since last visit She has been trying to get 2 to 3 servings of calcium in her diet daily though does not always obtain this. She drinks almond milk and eats cottage cheese and cheese. She does not take calcium supplements but takes vitamin D3 a 1000 units daily. She would like to avoid parathyroid surgery if possible Lives in [place] and hoping for video visit next time if possible MEDS Current Outpatient Medications Medication Sig Dispense Refill denosumab (PROLIA) 60 MG/ML injection Inject 60 mg under the skin once. 1 Syringe 0 oxygen GAS Use 2 L/min(Oxygen) as directed [...] Take 1 Capsule by mouth as needed. Vitamin B-12 1000 [...] MOUTH IN THE MORNING 90 Capsule 1 Bladder Control Pads Ex Absorb Daily use of urinary incontinence 72 Each 11 Diclofenac Sodium 1 % External Gel (Voltaren) Apply to the affected area daily 350 g 2 Vitamin C 500 MG Oral Capsule Take 1 Tablet by mouth every morning. Furosemide 40 MG Oral Tablet (Lasix) Take 0.5 Tablets by mouth in the morning. DULoxetine HCl 30 MG Oral Capsule Delayed Release Particles (Cymbalta) TAKE ONE CAPSULE BY MOUTH INTHE MORNING 90 Capsule 3 Losartan Potassium 100 MG Oral Tablet (Cozaar) TAKE ONE TABLET BY MOUTH IN THE MORNING 90 Tablet 3 amLODIPine Besylate 5 MG Oral Tablet (Norvasc) TAKE ONE TABLET BY MOUTH IN THE MORNING 90 Tablet 3 Digoxin 125 MCG Oral Tablet (Lanoxin) Take 1 Tablet by mouth once a day on Tuesday, Tuesday, and Tuesday only. 40 Tablet 3 Sennosides-Docusate Sodium 8.6-50 MG Oral Tablet (Senexon-S) Take 2 Tablets by mouth every night atbedtime. 180 Tablet 0 No current facility-administered medications for this visit. EXAM BP 124/68 | Pulse 91 | Ht 1.702 m (5' 7") | Wt 82.7 kg (182 lb 4.8 oz) | BMI 28.55 kg/m | BSA 1.98 m GEN- well appearing, NAD. ENT/NECK- Thyroid - I'm unable to appreciate any nodules CV- RRR PULM- Clear anteriorly. Normal expansion. Nonlabored breathing NEURO- A&Ox3. PSYCH- Normal mood. Normal affect. SKIN- Normal temperature, age related skin changes LABS Recent Labs Units 03/17/23 1341 12/14/22 1525 11/05/22 1041 CALCIUM - [facility] mg/dL 8.5 10.0 10.2 BUN - [facility] mg/dL 18 20 21* CREATININE - [facility] mg/dL 1.2* 1.1* 1.2* ESTIMATED GLOMERULAR FILTRATION RATE - [facility] mL/min 46* 52* 44* Recent Labs Units 12/14/22 1525 11/05/22 1041 07/19/22 1102 ALBUMIN - [facility] g/dL 4.1 4.1 4.4 No results for input(s): "HENRY" in the last 99227 hours. Recent Labs Units 11/05/22 1041 04/14/22 1524 03/08/22 1643 10/06/21 1524 25-HYDROXY VITAMIN D - [facility] ng/mL 35 32 < > 30 PTH - [facility] pg/mL 137* 568* -- 358* < > = values in this interval not displayed. Recent Labs Units 11/05/22 1041 04/14/22 1524 10/06/21 1524 MAGNESIUM - [facility] mg/dL 1.9 1.9 2.0 PHOSPHORUS - [facility] mg/dL 4.1 2.8 2.7 TSH Results: Lab Results Component Value Date/Time TSH - [facility] 1.65 03/17/2023 01:41 PM TSH - [facility] 1.79 11/05/2022 10:41 AM TSH - [facility] 2.09 04/14/2022 03:24 PM TSH - [facility] 1.92 10/31/2019 01:05 PM TSH - [facility] 1.84 11/22/2018 10:38 AM TSH - [facility] 1.98 12/20/2017 02:25 PM [facility] NM parathyroid scan: 02/09/2022: FINDINGS There is a focus of retained activity along the posteroinferior margin of the right thyroid lobe, likely in the right tracheoesophageal groove, similar to prior parathyroid scan dated 12/20/2016. This corresponds to a nodule seen on prior CT body dated 01/14/2022 and thyroid ultrasound dated 10/21/2021 and is favored to represent a parathyroid adenoma. IMPRESSION Probable parathyroid adenoma in the right tracheoesophageal groove. DEXA scan: 09/2021 Left femoral neck: 0.417 gms/cm2 T-score: -3.9 Z-score: -1.4 Left forearm: 0.372 gms/cm2 T-score: -5.4 Z-score: -1.7 Compared to the study done on 12/20/2013 for forearm, 08/28/2018 for hip and spine, the following measurements, % change, and significance are: Left forearm: significant decrease of 11 % Lumbar spine}: no significant change Left total hip: no significant change Mobile DEXA scan 2019: RESULTS: Lumbar Spine: INVALID Right forearm: 0.467 gms/cm2 T-score: -3.8 Left femoral neck: 0.424 gms/cm2 T-score: -3.8 Z-score: -1.5 Compared to a study that was performed on 12/25/2015, there has been a significant increase of 8.7 % at the lumbar spine and a significant increase of 8 % the total hip. Ultrasound neck: 09/2021: FINDINGS: RIGHT LOBE: 3.2 x 1.7 x 1.6cm Homogeneous echotexture with normal color flow. A few thyroid nodules as described below: -0.4 x 0.3 x 0.4 cm, wider than tall, smooth margin, spongiform previously 0.5 x 0.4 x 0.4 cm. -0.9 x 0.8 x 0.9 cm, wider than tall, smooth margin, solid previously 0.9 x 1.0 x 0.8 cm. A 0.9 x 0.7 x 0.7 cm rounded hypoechoic area posterior to the right lobe is again identified previously 0.7 x 0.6 x 0.6 cm. LEFT LOBE: 4.1 x 1.9 x 1.6cm Homogeneous echotexture with normal color flow. A couple thyroid nodules as described below: -0.9 x 1.1 x 0.7 cm, wider than tall, smooth margin, solid, previously 0.9 x 0.8 x 1.0 cm. -0.7 x 0.6 x 0.8 cm, taller than wide, smooth margin, peripheral calcification previously 0.7 x 0.7x 0.5 cm. ISTHMUS: 0.2cm in thickness. No solid or cystic nodule. LATERAL NECK: No lymphadenopathy bilaterally. IMPRESSION: 1. Bilateral thyroid nodules not significantly changed. 2. Unchanged rounded area posterior to the right thyroid lobe likely a parathyroid nodule. 2019: Multiple subcentimeter thyroid nodule Probable right parathyroid adenoma RIGHT LOBE: Multiple subcentimeter nodules are noted. The largest nodule in the lower pole seen laterally measures 9 x 8 x 8 mm compared to 8 x 8 x 7 mm on ultrasound 12/31/2016 and a hypoechoic nodule seen in the upper pole laterally measures 6 x 4 x 6 mm. A hypoechoic lesion, seen inferior and posterior to right lobe measures 9 x 7 x 6 mm compared to 7 x 6 x 7 mm on ultrasound 12/31/2016. Overall, no significant interval change. LEFT LOBE : Multiple subcentimeter nodules are noted. A hypoechoic nodule in the mid aspect of the left lobe measures 9 x 8 x 10 mm compared to 10 x 8 x 9 mm on ultrasound 12/31/2016 without significant change. A calcified nodule seen inferior to it measures 6 x 6 x 5 mm compared to 6 x 6 x 6 mm onultrasound 12/31/2016, essentially unchanged. ISTHMUS: No focal lesion identified. MEASUREMENTS: RIGHT LOBE measures 3.1 x 1.2 x 1.6 cm. LEFT LOBE measures 3.5 x 1.4 x 1.5 cm. ISTHMUS measures 0.2 cm AP. A prominent right cervical lymph node with fatty hilum near carotid bifurcation measures 1.9 x 0.5 x 1.8 cm. IMPRESSION 1. Multiple subcentimeter bilateral thyroid nodules without significant change. 2. Probable right parathyroid adenoma measuring 9 x 7 x 6 mm without significant change. 3. Prominent right cervical lymph node with fatty hilum measuring 19 x 5 x 18 mm noted near carotidbifurcation. IMP ICD-10-CM 1. Hyperparathyroidism, primary (HCC) E21.0 2. Multiple thyroid nodules E04.2 3. Chronic kidney disease, unspecified CKD stage N18.9 4. Age related osteoporosis, unspecified pathological fracture presence M81.0 This is a very nice 87-year-old woman with a history of primary hyperparathyroidism status post remote surgery, with recurrent hyperparathyroidism. This is likely multifactorial. Calcium has at timesbeen elevated, so there may be a degree of recurrent primary hyperparathyroidism. In addition, Prolia, chronic kidney disease, suboptimal vitamin-D, and other factors may be contributing to the hyperparathyroidism. I recommend that we continue to work on optimizing calcium and vitamin-D along with Prolia. PLAN Aim for 2-3 servings of calcium daily Take 2000 units of vitamin D3 daily Calcium labs soon and before next visit in December Dexa before December appointment as well I spent a total of 30-39 minutes (exact time 30 mins) on the date of service in preparation, delivery, and documentation of the care provided to Miranda Coe excluding any time spent in the performance of separately billed services. Deana Vargas MD Associate Physician Division of Endocrinology [address] [address] documented in this encounter Nursing Notes * Desi Salmeron LPN - 04/25/2023 12:40 PM EST Patient was instructed to not get up on the exam table/exam chair until directed and assisted by their provider; patient is to remain seated in the chair/ wheelchair/ exam table/ exam chair for fall prevention and safety reasons. Patient is aware to have assistance to step down off exam table/exam chair with personnel. Patient voiced full comprehension of instructions. Desi Salmeron LPN documented in this encounter Plan of Treatment Upcoming Encounters Date Type Department Care Team (Late st Contact Info) Description 04/26/2023 2:00 PM EST Cardiac Studies Cardiology [address] [place] [address] Lucia Jimenez [address] [place] [address] 04/29/2023 8:10 AM EST Laboratory Lab [facility] [address], [place] [id number] [facility] [address] [place] [address] 04/29/2023 3:00 PM EST Office Visit Nephrology [address] [place] [address] Josie Butler MD [address] [place] [address] 05/02/2023 6:00 AM EST Anticoagulation Pharmacy Call Center WB 58[address] [place] [id number] [facility] 58 [address] [place] [id number] 06/08/2023 2:00 PM EDT Laboratory Laboratory [address] [place] [phone] [address] [place] [address] 06/15/2023 2:30 PM EDT Office Visit Hematology/Oncology [facility] [address] [place] [phone] Matt Faustin MD [address] [place] [address] 06/24/2023 2:30 PM EDT Nurse Only Rheumatology [address] [place] [phone] [place], Nurse Rheum [address] [place] [phone] 08/02/2023 12:00 PM EDT Office Visit Cardiology [address] [place] [address] Poli Zepeda PA-C [address] [place] [address] 09/29/2023 10:00 AM EDT Office Visit Family Medicine [address] [place] [phone] Cathy Wilburn MD [address] [place] [address] [place] [address] 10/12/2023 3:00 PM EDT Office Visit Sleep Disorders [facility] [address] [place] [phone] Isabel Diallo DO [address] [place] [address] 01/23/2024 2:20 PM EST Office Visit Dermatology [address] [place] [address] Amber Orozco PA-C [address] [place] [address] [place] [address] Scheduled Orders Name Type Priority Associated Diagnoses Orde r Schedule 25-HYDROXY VITAMIN D Lab Routine Hyperparathyroidism, primary (HCC) Every 6 Months for 2 Occurrences starting 04/25/2023 until 04/25/2024 ALBUMIN Lab Routine Hyperparathyroidism, primary (HCC) Every 6 Months for 2 Occurrences starting 04/25/2023 until 04/25/2024 BASIC METABOLIC PANEL Lab Routine Hyperparathyroidism, primary (HCC) Every 6 Months for 2 Occurrences starting 04/25/2023 until 04/25/2024 MAGNESIUM Lab Routine Hyperparathyroidism, primary (HCC) Every 6 Months for 2 Occurrences starting 04/25/2023 until 04/25/2024 PHOSPHORUS Lab Routine Hyperparathyroidism, primary (HCC) Every 6 Months for 2 Occurrences starting 04/25/2023 until 04/25/2024 PTH Lab Routine Hyperparathyroidism, primary (HCC) Every 6 Months for 2 Occurrences starting 04/25/2023 until 04/25/2024 DEXA SCAN/BONE MINERAL AXIAL Medical Imaging Routine Hyperparathyroidism, primary (HCC) Age related osteoporosis, unspecified pathological fracture presence Expected: 12/05/2023 (Approximate), Expires: 05/23/2024 Health Maintenance Due Date Last Done Comments Depression Screening 05/30/2021 05/30/2020 COVID-19 Vaccine ( season) 2022 Albumin/Creatinine Ratio 07/20/2023 023, 04/06/2021, 05/30/2020, Additional history exists DXA Scan 10/22/2023 10/21/2021, 09/29, 08/28/2018, Additional history exists CKD PHOS USE SMARTSET 68128 11/06/202309/2022, 04/14/2022, 10/06/2021, Additional history exists CKD HGB USE SMARTSET 10294 03/17/202403/17, 03/17/2023, 12/14/2022, Additional history exists DIG LEVEL FOR MEDICATION MONITORING YEARLY 04/22/2024 04/22/2023, 03/17/2023, 03/08/2022, Additional history exists DTaP,Tdap,and Td Vaccines (2 - Td or Tdap) 12/31/2029 01/01/2020 (Declined), 12/30/2009, 12/30/2009, Additional history exists Pneumococcal Vaccine: 65+ Years Completed 02/08/2017, 02/23/2006 VITAMIN D LEVEL ONCE IN A LIFETIME-USE SMARTSET# 70263 Completed 11/05/2022, 04/14/2022, 03/08/2022, Additional history exists [...] this encounter Medical Devices Implanted Type Area Girls Tennis Coach Device Identifier Shelf Expiration Date Model / Serial / Lot Lead Novus Bipolar 58cm - [id number] - [id number] Implanted:Qty: 1 on 04/11/2017 by Elda Patterson DO at OR [facility] Left: Heart [employer] : [facility] 12/18/2018 5076-58 / [id number] / Description:RIGHT VENTRICLE LEAD Lead Novus Bipolar 52cm - [id number] - [id number] Implanted:Qty: 1 on 04/11/2017 by Elda Patterson DO at OR [facility] Left: Heart [employer] : [facility] 12/24/2018 5076-52 / [id number] / Description:RIGHT ATRIAL ROCKY D Pacer Advisa Dr Dorsey - [id number] - [id number] Implanted:Qty: 1 on 04/11/2017 by Elda Patterson DO at OR 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
--- OUTSIDE RECORDS SUMMARY | 2023-05-27 20:48 | External Medical Summary | Summary of Care ---
Author Name Unknown Organization [facility] Address [address] [place] [address] Phone [phone] Care Team Providers Care Manufacturing Assembler Name Role Phone Cathy Wilburn MD Primary Care Provide r Reason for Visit * Reason Comments Follow Up Encounter Details Date Type Department Care Team (Late st Contact Info) Description 04/25/2023 1:00 PM EST Office Visit Endocrinology, [place] [address] [place] [address] Deana Vargas MD [address] [place] [address] Hyperparathyroidism, primary (HCC)*; Multiple thyroid [...] 40 MG Oral Tablet (Lipitor)Indication s:Atherosclerosis of [place] coronary artery of [place] heart without angina pectoris,Dyslipidem ia, goal LDL [...] lumbosacral intervertebral disc 02/04/2009 Coronary atherosclerosis of [place] coronary luis ry 02/24/2005 Senile osteoporosis 05/14/2003 [...] 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 LOC PRIM [id number] 02/14/200205/30 Other seborrheic keratosis 10/31/2001 0 06/06/2007 [...] Had DVT/ PE- 05/2021 [facility] back [facility] No family history of hyperparathyroidism, hypercalcemia, nephrolithiasis, [...] avoid parathyroid surgery if possible Lives in [place] and hoping for video visit next time [...] results for input(s): "HENRY" in the last 70417 hours. Recent Labs Units 11/05/22 1041 04/14/22 [...] Vargas MD Associate Physician Division of Endocrinology [address] [address] documented in this encounter Nursing [...] personnel. Patient voiced full comprehension of instructions. eDsi Salmeron LPN documented in this encounter Plan of Treatment Upcoming Encounters Date Type Department Care Team (Late st Contact Info) Description 04/26/2023 2:00 PM EST Cardiac Studies Cardiology [address] [place] [address] Lucia Jimenez [address] [place] [address] 04/29/2023 8:10 AM EST Laboratory Lab [facility] [address], [place] [phone] [facility] [place] Draw [address] [place] [address] 04/29/2023 3:00 PM EST Office Visit Nephrology [address] [place] [address] Josie Butler MD [address] [place] [address] 05/02/2023 6:00 AM EST Anticoagulation Pharmacy Call Center [address] [place] [address] [facility] [address] [place] [address] 06/08/2023 2:00 PM EDT Laboratory Laboratory [address] [place] [phone] [address] [place] [address] 06/15/2023 2:30 PM EDT Office Visit Hematology/Oncology State James Gardiner [address] [place] [phone] Matt Faustin MD [address] [place] [address] 06/24/2023 2:30 PM EDT Nurse Only Rheumatology [address] [place] [phone] [place], Nurse Rheum [address] [place] [phone] 08/02/2023 12:00 PM EDT Office Visit Cardiology [address] [place] [address] Poli Zepeda PA-C [address] [place] [address] 09/29/2023 10:00 AM EDT Office Visit Family Medicine [address] [place] [phone] Cathy Wilburn MD [address] [place] [address] [place] [address] 10/12/2023 3:00 PM EDT Office Visit Sleep Disorders [facility] [address] [place] [phone] Isabel Diallo DO [address] [place] [address] 01/23/2024 2:20 PM EST Office Visit Dermatology [address] [place] [address] Amber Orozco PA-C [address] [place] [address] [place] [address] Scheduled Orders Name Type Priority Associated Diagnoses [...] Additional history exists CKD PHOS USE SMARTSET 50107 11/06/202309/2022, 04/14/2022, 10/06/2021, Additional history exists CKD HGB USE SMARTSET 81265 03/17/202403/17, 03/17/2023, 12/14/2022, Additional history exists DIG LEVEL FOR MEDICATION MONITORING YEARLY 04/22/2024 04/22/2023, 03/17/2023, 03/08/2022, Additional history exists DTaP,Tdap,and Td Vaccines (2 - Td or Tdap) 12/31/2029 01/01/2020 (Declined), 12/30/2009, 12/30/2009, Additional history exists Pneumococcal Vaccine: 65+ Years Completed 02/08/2017, 02/23/2006 VITAMIN D LEVEL ONCE IN A LIFETIME-USE SMARTSET# 60975 Completed 11/05/2022, 04/14/2022, 03/08/2022, Additional history exists [...] this encounter Medical Devices Implanted Type Area Flower Grader Device Identifier Shelf Expiration Date Model / Serial / Lot Lead Novus Bipolar 58cm - [id number] - [id number] Implanted:Qty: 1 on 04/11/2017 by Elda Patterson DO at OR [facility] Left: Heart [employer] : [facility] 12/18/2018 5076-58 / [id number] / Description:RIGHT VENTRICLE LEAD Lead Novus Bipolar 52cm - [id number] - [id number] Implanted:Qty: 1 on 04/11/2017 by Elda Patterson DO at OR [facility] Left: Heart [employer] : [facility] 12/24/2018 5076-52 / [id number] / Description:RIGHT ATRIAL ROCKY D Pacer Advisa Dr Dorsey - [id number] - [id number] Implanted:Qty: 1 on 04/11/2017 by Elda Patterson DO at OR [facility] Left: Chest [employer] 08/25/2018 A2DR01 / [id number] / documented as of this encounter Visit Diagnoses Diagnosis Hyperparathyroidism, primary (HCC)- Primary Primary hyperparathyroidism Multiple thyroid nodules Nontoxic multinodular goiter Chronic kidney disease, unspecified CKD stage Age related osteoporosis, unspecified pathological fracture presence documented in this encounter Advance Directives Documents on File Type Date Recorded 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
--- OUTSIDE RECORDS SUMMARY | 2023-05-27 20:50 | External Medical Summary | Summary of Care ---
Author Name Unknown Organization [facility] Address [address] [place] [address] Phone [phone] Care Team Providers Care Batch Mixer Operator Name Role Phone Maxwell Fregoso MD Primary Care Provide r Reason for Visit * Reason Comments eRx-Medication Refill Encounter Details Date Type Department Care Team (Late st Contact Info) Description 04/01/2023 Refill Family Medicine [address] [phone] Erlinda Meneses MD [address] [place] [address] [place] [id number] Moderate episode of recurrent major depressive disorder (HCC) Allergies Active Allergy Reactions Criticality Noted [...] as of this encounter (statuses as of 04/04/2023) Medications Medication Sig Dispensed Refills Start Date End Date Status denosumab (PROLIA) 60 MG/ML injection Inject 60 mg under the skin once. 1 Syringe 0 12/12/201 7 Active oxygen GAS Use 2 L/min(Oxygen) as directed at bedtime. 0 Active Latanoprost 0.005 % Ophthalmic Solution (Xalatan) ONE DROP IN EACH EYE AT BEDTIME 2.5 mL 12 2 Active Acetaminophen 325 MG Oral Tablet (Tylenol) Take by mouth 2 Tablets every 4 hours as needed for Fever >38C(100.5F), Pain, Mild, Pain, Moderate or Pain, Severe. 100 Tablet 1 2 Active LORazepam 0.5 MG Oral Tablet (Ativan)Indicatio ns:Anxiety Take 1 Tablet (0.5 mg) by mouth every 8 hours as needed for Agitation or Anxiety. Take 1 Tablet by mouth daily as needed for Anxiety. 40 Tablet 0 2 Active Cholecalciferol 25 MCG (1000 UT) Oral Capsule Take 1 Capsule by mouth as needed. 0 3 Active Vitamin B-12 1000 MCG Oral Tablet (Cyanocobalamin)I ndications:B12 deficiency TAKE 1 TABLET BY MOUTH ON TUESDAY, TUESDAY AND TUESDAY 30 Tablet 11 3 Active Aspirin Low Dose 81 MG Oral Tablet Delayed Release (aspirin enteric coated) TAKE ONE TABLET IN THE MORNING 30 Tablet 11 3 Active Benzonatate 100 MG Oral CapsuleIndication s:Bronchitis, complicated Take 1 Capsule by mouth 3 times a day as needed for Cough. 30 Capsule 1 3 Active Metoprolol Succinate ER 100 MG Oral Tablet Extended Release 24 Hour (toPROL XL)Indications:Pa roxysmal atrial fibrillation (HCC) Take 1.5 Tablets by mouth in the morning and 1.5 Tablets before bedtime. 120 Tablet 5 3 Active Warfarin Sodium 2 MG Oral Tablet (Jantoven) Take 1-2 Tablets by mouth every evening. 180 Tablet 1 3 Active Atorvastatin Calcium 40 MG Oral Tablet (Lipitor)Indicati ons:Atheroscleros is of [place] coronary artery of [place] heart without angina pectoris,Dyslipid emia, goal LDL below 70 TAKE ONE TABLET AT BEDTIME 90 Tablet 0 4 Active Omeprazole 20 MG Oral Capsule Delayed Release (PriLOSEC)Indicat ions:Gastro-esoph ageal reflux disease without esophagitis TAKE ONE CAPSULE BY MOUTH IN THE MORNING 90 Capsule 1 4 Active Bladder Control Pads Ex AbsorbIndications :Mixed stress and urge urinary incontinence Daily use of urinary incontinence 72 Each 11 4 Active Diclofenac Sodium 1 % External Gel (Voltaren)Indicat ions:Acute bilateral low back pain without sciatica Apply to the affected area daily 350 g 2 4 Active Vitamin C 500 MG Oral Capsule Take 1 Tablet by mouth every morning. 0 Active Furosemide 40 MG Oral Tablet (Lasix)Indication s:Dependent edema Take 0.5 Tablets by mouth in the morning. 0 4 Active Digoxin 125 MCG Oral Tablet (Lanoxin) Take 1 Tablet by mouth once a day on Tuesday, Tuesday, and Tuesday only. 0 4 Active DULoxetine HCl 30 MG Oral Capsule Delayed Release Particles (Cymbalta)Indicat ions:Moderate episode of recurrent major depressive disorder (HCC) TAKE ONE CAPSULE BY MOUTH IN THE MORNING 90 Capsule 3 4 Active Losartan Potassium 100 MG Oral Tablet (Cozaar) TAKE ONE TABLET BY MOUTH IN THE MORNING 90 Tablet 3 4 Active amLODIPine Besylate 5 MG Oral Tablet (Norvasc) TAKE ONE TABLET BY MOUTH IN THE MORNING 90 Tablet 3 4 Active DULoxetine HCl 30 MG Oral Capsule Delayed Release Particles (Cymbalta)Indicat ions:Moderate episode of recurrent major depressive disorder (HCC) Take 1 Capsule by mouth in the morning. 30 Capsule 11 3 04/04/19 24 Discontinued documented as of this encounter (statuses as of 04/04/2023) Active Problems Problem Noted Date Diagnosed Date [...] lumbosacral intervertebral disc 02/04/2009 Coronary atherosclerosis of [place] coronary luis ry 02/24/2005 Senile osteoporosis 05/14/2003 Carpal tunnel syndrome 04/23/2003 Moderate mitral regurgitation GENERAL OSTEOARTHROSIS Gastroesophageal reflux disease without esophagi tis Vitamin D deficiency Hyperparathyroidism, primary documented as of this encounter (statuses as of 04/04/2023) Resolved Problems Problem Noted Date Diagnosed Date [...] 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 LOC PRIM [id number] 02/14/200205/30 Other seborrheic keratosis 10/31/2001 0 06/06/2007 [...] as of this encounter (statuses as of 04/04/2023) Immunizations Name Administration Dates Next Due Pneumococcal [...] encounter Miscellaneous Notes * Telephone Encounter - Maxwell Fregoso MD - 04/04/2023 7:49 AM EST Signed Prescriptions: Disp Refills DULoxetine HCl 30 MG Oral Capsule Delayed *90 Cap*3 Sig: TAKE ONE CAPSULE BY MOUTH IN THE MORNING Authorizing Provider: MAXWELL FREGOSO * Telephone Encounter - Thelma Pizarro [facility] - 04/02/2023 3:35 PM ESTPending Prescriptions: Disp Refills DULoxetine HCl 30 MG Oral Capsule Delayed *90 Cap*3 Sig: TAKE ONE CAPSULE BY MOUTH IN THE MORNING * Telephone Encounter - Thelma Pizarro RPh - 04/02/2023 3:35 PM EST Pending Prescriptions: Disp Refills DULoxetine HCl 30 MG Oral Capsule Delayed *90 Cap*3 Sig: TAKE ONE CAPSULE BY MOUTH IN THE MORNING 03/17/2023 (in office), Visit date not found (telemedicine) 09/29/2023 If no future appointments scheduled, and last appointment is greater than a year ago, please schedule patient for a follow-up appointment Last date the medication was ordered: 04/23/22 Pharmacy: [facility], [address] [place] JACOBSEN Is this request for a controlled substance?No Urine Drug Screen:No results found. However, due to the size of the patient record, not all encounters were searched. Please check Results Review for a complete set of results. Patient Phone Numbers Labs: Lab Results Component Value Date/Time CREAT [...] 04/25/2023 1:00 PM EST Office Visit Endocrinology, [place] [address] [place] [address] Deana Vargas MD [address] [place] [address] 04/26/2023 2:00 PM EST Cardiac Studies Cardiology [address] [place] [address] [facility] [address] [place] [address] 04/29/2023 3:00 PM EST Office Visit Nephrology [address] [place] [address] Josie Butler MD [address] [place] [address] 06/08/2023 2:00 PM EDT Laboratory Laboratory [address] [place] [phone] [place], Lab [address] [place] [address] 06/15/2023 2:30 PM EDT Office Visit Hematology/Oncology [facility] [address] [place] [address] Matt Faustin MD [address] [place] [address] 06/24/2023 2:30 PM EDT Nurse Only Rheumatology [address] [place] [phone] [place], Nurse [address] [place] [phone] 08/02/2023 12:00 PM EDT Office Visit Cardiology [address] [place] [address] Poli Zepeda PA-C [address] [place] [address] 09/29/2023 10:00 AM EDT Office Visit Family Medicine [address] [place] [phone] Maxwell Fregoso MD [address] [place] [address] [place] [address] 10/12/2023 3:00 PM EDT Office Visit [facility] [address] [place] [phone] Isabel Diallo DO [address] [place] [address] 01/23/2024 2:20 PM EST Office Visit Dermatology [address] [place] [address] Amber Orozco PA-C [address] [place] [address] [place] [address] Health Maintenance Due Date Last Done Comments COVID-19 Vaccine (#1) 1935 Depression Screening 05/30/2021 05/30/2020 Albumin/Creatinine Ratio 07/20/2023 023, 04/06/2021, 05/30/2020, Additional history exists DXA Scan 10/22/2023 10/21/2021, 09/29, 08/28/2018, Additional history exists CKD PHOS USE SMARTSET 87285 11/06/2023 09/0 09/2022, 04/14/2022, 10/06/2021, Additional history exists CKD HGB USE SMARTSET 95636 03/17/202403/17, 03/17/2023, 12/14/2022, Additional history exists DIG LEVEL FOR MEDICATION MONITORING YEARLY 03/17/2024 03/17/2023, 03/08/2022, 06/12/2021, Additional history exists DTaP,Tdap,and Td Vaccines (2 - Td or Tdap) 12/31/2029 01/01/2020 (Declined), 12/30/2009, 12/30/2009, Additional history exists Pneumococcal Vaccine: 65+ Years Completed 02/08/2017, 02/23/2006 VITAMIN D LEVEL ONCE IN A LIFETIME-USE SMARTSET# 42936 Completed 11/05/2022, 04/14/2022, 03/08/2022, Additional history exists [...] this encounter Medical Devices Implanted Type Area Distillery Manager Device Identifier Shelf Expiration Date Model / Serial / Lot Pacer Advisa Dr Dorsey - [id number] - [id number] Implanted:Qty: 1 on 04/11/2017 by lEda Patterson DO at OR [facility] Left: Chest [employer] 08/25/2018 [id number] / [id number] / documented as of this encounter Visit Diagnoses Diagnosis Moderate episode of recurrent major depressive disorder (HCC) documented in this encounter Advance Directives Documents on File Type Date Recorded Patient Director Of Science Expl anation POLST 01/05/2021 [place] OR [facility] FOR LIFE-SUSTAINING TREATMENT Latest Code Status on File Code Status Date Activated Date Inactivated Comments Full Code 07/02/2008 9:35 AM 07/03/2008 5:40 PM Care Teams Batch Mixer Operator Relationship Specialty Start Date End Date Maxwell Fregoso MD [address] [place] [address] [place] [address] PCP - General Family Medicine 12/03/22 documented as of this encounter
--- OUTSIDE RECORDS SUMMARY | 2023-05-27 20:50 | External Medical Summary | Summary of Care ---
Author Name Unknown Organization [facility] Address [address] [place] [facility] [place] [address] Phone [phone] Care Team Providers Care Machine Etcher Name Role Phone Cathy Wilburn MD Primary Care Provide r Reason for Visit * Reason Comments Dosage Adjustment Via Phone (anticoag Cl inic) Encounter Details Date Type Department Care Team (Latest Contact Info) Description 04/04/2023 6:00 AM EST Anticoagulation Pharmacy Call Center [phone] [place] [address] [facility] [address] [facility] [place] [address] Paroxysmal atrial fibrillation (HCC)* Allergies Active Allergy [...] 40 MG Oral Tablet (Lipitor)Indication s:Atherosclerosis of [place] coronary artery of [place] heart without angina pectoris,Dyslipidem ia, goal LDL [...] lumbosacral intervertebral disc 02/04/2009 Coronary atherosclerosis of [place] coronary luis ry 02/24/2005 Senile osteoporosis 05/14/2003 [...] 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 LOC PRIM [id number] 02/14/200205/30 Other seborrheic keratosis 10/31/2001 0 06/06/2007 [...] as of this encounter Progress Notes * Yulisa Bartholomew [facility] - 04/04/2023 11:44 AM EST Noted - as bruising is healing and INR is at the low end of the therapeutic range, no changes to warfarin dosing/monitoring plan at this time. Thanks, Yulisa Bartholomew, PharmD Clinical Pharmacist [facility] (Formerly [employer]) [phone] 04/04/2023 11:44 AM * Sandra Ventura [facility] - 04/04/2023 9:14 AM EST Contacts Type Contact Phone/Fax 04/04/2023 09:13 AM EST Phone (Outgoing) Miranda Coe (Self) [phone] (M) Spoke to Patient Subjective Patient Findings Positives: Change in medications (Pt reports that she had her digoxin dose decreased .), Bruising (Pt reported some bruising but it is healing.) Negatives: Signs/symptoms of thrombosis, Signs/symptoms of bleeding, Change in health, Change in alcohol use, Change in activity, Upcoming invasive procedure, Missed doses, Extra doses, Change in diet/appetite Advised patient to contact Anticoagulation Clinic if any unusual bruising or bleeding, recent illness, changes in medication, or questions/concerns. PT/INR results, Coumadin dose instructions, and next PT/INR date communicated as noted by Pharmacist: Yes Elena Alonso Regulatory Affairs Specialist Sandra Ventura [facility] 04/04/2023, 9:14 AM * Vonnie Lam [facility] - 04/04/2023 7:59 AM EST Coumadin Clinic (region specific) Objective Current Warfarin Dose As of 04/04/2023 Warfarin maintenance plan: 4 mg (2 mg x 2) every Mon, Wed, Fri; 2 mg (2 mg x 1) all other days INR Result As of 04/04/2023 INR goal: 2.0-3.0 INR used for dosin.2 (04/01/2023) Assessment & Plan Warfarin Plan As of 04/04/2023 Full warfarin instructions: 4 mg every Mon, Wed, Fri; 2 mg all other days No change documented: Vonnie Lam [facility] Next INR check: 04/29/2023 Repeat PT/INR in 4 week(s) Weekly dose: not changed Additional Dosing Information: Description [facility] Tech to contact patient with dose instructions as noted. Vonnie Lam RPh 04/04/2023, 7:59 AM documented in this encounter Plan of Treatment Upcoming Encounters Date Type Department Care Team (Late st Contact Info) Description 04/25/2023 1:00 PM EST Office Visit [facility] [place] [address] [facility] [address] Deana [facility] [address] [facility] [address] 04/26/2023 2:00 PM EST Cardiac Studies Cardiology [address] [place] [address] [place], Pacer [address] [place] [address] 04/29/2023 8:10 AM EST Laboratory Lab Mobile Phlebotomy [facility] [address] [place] [address] [facility] Mobile Home Draw [address] [place] [address] 04/29/2023 3:00 PM EST Office Visit Nephrology [address] [place] [address] Josie Butler MD [address] [place] [address] 05/02/2023 6:00 AM EST Anticoagulation Pharmacy Call Center [address] [place] [address] [facility], [facility] [address] [place] [address] 06/08/2023 2:00 PM EDT Laboratory Laboratory [address] [place] [phone] [place], Lab [address] [place] [address] 06/15/2023 2:30 PM EDT [facility] [address] [place] [address] Matt Faustin MD [address] [place] [address] 06/24/2023 2:30 PM EDT Nurse Only Rheumatology [address] [place] [phone] [place], Nurse [address] [place] [phone] 08/02/2023 12:00 PM EDT Office Visit Cardiology [address] [place] [address] Poli Zepeda PA-C [address] [place] [address] 09/29/2023 10:00 AM EDT Office Visit Family Medicine [address] [place] [phone] Cathy Wilburn MD [address] [place] [address] [place] [address] 10/12/2023 3:00 PM EDT Office Visit Sleep Disorders [facility] [address] [place] [phone] Isabel Diallo DO [address] [place] [address] 01/23/2024 2:20 PM EST Office Visit Dermatology [address] [place] [address] Amber Orozco PA-C [address] [place] [address] [place] [address] Health Maintenance Due Date Last Done Comments COVID-19 Vaccine (#1) 1935 Depression Screening 05/30/2021 05/30/2020 Albumin/Creatinine Ratio 07/20/2023 023, 04/06/2021, 05/30/2020, Additional history exists DXA Scan 10/22/2023 10/21/2021, 09/29, 08/28/2018, Additional history exists CKD PHOS USE SMARTSET 11520 11/06/2023 09/0 09/2022, 04/14/2022, 10/06/2021, Additional history exists CKD HGB USE SMARTSET 44893 03/17/202403/17, 03/17/2023, 12/14/2022, Additional history exists DIG LEVEL FOR MEDICATION MONITORING YEARLY 03/17/2024 03/17/2023, 03/08/2022, 06/12/2021, Additional history exists DTaP,Tdap,and Td Vaccines (2 - Td or Tdap) 12/31/2029 01/01/2020 (Declined), 12/30/2009, 12/30/2009, Additional history exists Pneumococcal Vaccine: 65+ Years Completed 02/08/2017, 02/23/2006 VITAMIN D LEVEL ONCE IN A LIFETIME-USE SMARTSET# [id number] Completed 11/05/2022, 04/14/2022, 03/08/2022, Additional history exists [...] this encounter Medical Devices Implanted Type Area Knit Tubing Dyer Device Identifier Shelf Expiration Date Model / Serial / Lot Pacer Advisa Dr Dorsey - [id number] - [id number] Implanted:Qty: 1 on 04/11/2017 by Elda Patterson DO at OR [facility] Left: Chest [employer] 08/25/2018 [id number] / [id number] / documented as of this encounter Visit Diagnoses Diagnosis Paroxysmal atrial fibrillation (HCC)- Primary Atrial fibrillation documented in this encounter Advance Directives Documents on File Type Date Recorded Patient Optical Engineering Technician Expl anation POLST 01/05/2021 [place] OR [facility] FOR LIFE-SUSTAINING TREATMENT Latest Code Status on File Code Status Date Activated Date Inactivated Comments Full Code 07/02/2008 9:35 AM 07/03/2008 5:40 PM Care Teams Machine Etcher Relationship Specialty Start Date End Date Cathy Wilburn MD [address] [place] [address] [place] [phone] PCP - General Family Medicine 12/03/22 documented as of this encounter
--- OUTSIDE RECORDS SUMMARY | 2023-05-27 20:50 | External Medical Summary | Summary of Care ---
Author Name Unknown Organization [facility] Address [address] [place] [address] Phone [phone] Care Team Providers Care Dean Of Students Name Role Phone Cathy Wilburn MD Primary Care Provide r Reason for Visit * Reason Onset Date Comments Test Results 03/21/2023 Encounter Details Date Type Department Care Team (Late st Contact Info) Description 03/21/[address] [place] [address] Cathy Wilburn MD [address] [place] [address] [place], [place] [id number] Test Results Allergies Active Allergy Reactions Criticality [...] as of this encounter (statuses as of 03/21/2023) Medications Medication Sig Dispensed Refills Start Date [...] for Anxiety. 40 Tablet 0 02/05/2022 Active DULoxetine HCl 30 MG Oral Capsule Delayed Release Particles (Cymbalta)Indicatio ns:Moderate episode of recurrent major depressive disorder (HCC) Take 1 Capsule by mouth in the morning. 30 Capsule 11 04/23/2022 Active Cholecalciferol 25 MCG (1000 UT) Oral Capsule Take 1 Capsule by mouth as needed. 0 06/16/2022 Active Digoxin 125 MCG Oral Tablet (Lanoxin) take one tablet by mouth tuesday thru tuesday 30 Tablet 07/06/2022 Active Vitamin B-12 1000 MCG Oral Tablet [...] every evening. 180 Tablet 1 12/31/2022 Active amLODIPine Besylate 5 MG Oral Tablet (Norvasc) TAKE ONE TABLET IN THE MORNING 90 Tablet 0 01/11/2023 Active Losartan Potassium 100 MG Oral Tablet (Cozaar) TAKE ONE TABLET IN THE MORNING 90 Tablet 0 01/11/2023 Active Atorvastatin Calcium 40 MG Oral Tablet (Lipitor)Indication s:Atherosclerosis of [place] coronary artery of [place] heart without angina pectoris,Dyslipidem ia, goal LDL below 70 TAKE ONE TABLET AT BEDTIME 90 Tablet 0 03/04/2023 Active Omeprazole 20 MG Oral Capsule Delayed Release (PriLOSEC)Indicatio ns:Gastro-esophagea l reflux disease without esophagitis TAKE ONE CAPSULE BY MOUTH IN THE MORNING 90 Capsule 1 03/07/2023 Active Furosemide 40 MG Oral Tablet (Lasix)Indications: Dependent edema Take 0.5 Tablets by mouth once a day on Tuesday, Tuesday, and Tuesday only. 0 03/18/2023 Active Bladder Control Pads Ex AbsorbIndications:M ixed stress and urge urinary incontinence Daily use of urinary incontinence 72 Each 11 03/17/2023 Active Diclofenac Sodium 1 % External Gel (Voltaren)Indicatio ns:Acute bilateral low back pain without sciatica Apply to the affected area daily 350 g 2 03/17/2023 Active documented as of this encounter (statuses as of 03/21/2023) Active Problems Problem Noted Date Diagnosed Date [...] lumbosacral intervertebral disc 02/04/2009 Coronary atherosclerosis of [place] coronary luis ry 02/24/2005 Senile osteoporosis 05/14/2003 Carpal tunnel syndrome 04/23/2003 Moderate mitral regurgitation GENERAL OSTEOARTHROSIS Gastroesophageal reflux disease without esophagi tis Vitamin D deficiency Hyperparathyroidism, primary documented as of this encounter (statuses as of 03/21/2023) Resolved Problems Problem Noted Date Diagnosed Date [...] 09 Overview: RLP Parathyroid adenoma resection Benjy Gonzalez [...] 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 LOC PRIM [id number] 02/14/200205/30 Other seborrheic keratosis 10/31/2001 0 06/06/2007 [...] as of this encounter (statuses as of 03/21/2023) Immunizations Name Administration Dates Next Due Pneumococcal [...] Miscellaneous Notes * Telephone Encounter - Cathy Wliburn MD - 03/21/2023 1:34 PM EST Spoke to the pt - discussed the result with pt - digoxin is slightly elevated -- pt takes digoxin M-F -- will repeat the level in 1 month documented in this encounter Plan of Treatment Upcoming Encounters Date Type Department Care Team (Late st Contact Info) Description 03/31/2023 8:30 AM EST Office Visit Cardiology [address] [place] [address] Poli Zepeda PA-C [address] [place] [address] 04/01/2023 8:20 AM EST Laboratory Lab Mobile Phlebotomy [facility] [address] [facility] [place] [address] [facility] [place], [facility] Mobile Home Draw [address] [facility] [place] [address] 04/04/2023 6:00 AM EST Anticoagulation Pharmacy Call Center [phone] [place] [address] [facility] [address] [place] [address] 04/25/2023 1:00 PM EST Office Visit Endocrinology, [place] [address] [place] [address] Deana Vargas MD [address] [place] [address] 04/26/2023 2:00 PM EST Cardiac Studies Cardiology [address] [place] [address] [facility] [address] [facility] [place] [address] 06/08/2023 2:00 PM EDT Laboratory Laboratory [address] [place] [phone] [place], Lab [address] [place] [address] 06/15/2023 2:30 PM EDT Office Visit Hematology/Oncology [facility] [place] [address] [place] [address] Matt Faustin MD [address] [place] [address] 06/24/2023 2:30 PM EDT Nurse Only Rheumatology [address] [place] [phone] [place], Nurse Rheum [address] [place] [phone] 09/26/2023 2:20 PM EDT Office Visit Nephrology [address] [place] [address] Josie Butler MD [address] [place] [address] 09/29/2023 10:00 AM EDT Office Visit Family Medicine [address] [place] [phone] Cathy Wilburn MD [address] [place] [address] [place] [address] 10/12/2023 3:00 PM EDT Office Visit Sleep Disorders Ctr [facility] [address] [place] [phone] Isabel Diallo, [address] [place] [address] 01/23/2024 2:20 PM EST Office Visit Dermatology [address] [place] [address] Amber Orozco PA-C [address] [place] [address] [place] [address] Scheduled Orders Name Type Priority Associated Diagnoses Orde r Schedule DIGOXIN LEVEL Lab Routine Paroxysmal atrial fibrillation (HCC) Expected: 04/21/2023 (Approximate), Expires: 03/20/2024 Health Maintenance Due Date Last Done Comments COVID-19 Vaccine (#1) 1935 Depression Screening 05/30/2021 05/30/2020 Albumin/Creatinine Ratio 07/20/2023 023, 04/06/2021, 05/30/2020, Additional history exists DXA Scan 10/22/2023 10/21/2021, 02/2018, 12/29/2015, Additional history exists CKD PHOS USE SMARTSET 25422 11/06/2023 090 09/2022, 04/14/2022, 10/06/2021, Additional history exists CKD HGB USE SMARTSET 79786 03/17/202403/17, 03/17/2023, 12/14/2022, Additional history exists DIG LEVEL FOR MEDICATION MONITORING YEARLY 03/17/2024 03/17/2023, 03/08/2022, 06/12/2021, Additional history exists DTaP,Tdap,and Td Vaccines (2 - Td or Tdap) 12/31/2029 01/01/2020 (Declined), 12/30/2009, 12/30/2009, Additional history exists Pneumococcal Vaccine: 65+ Years Completed 02/08/2017, 02/23/2006 VITAMIN D LEVEL ONCE IN A LIFETIME-USE SMARTSET# [id number] Completed 11/05/2022, 04/14/2022, 03/08/2022, Additional history exists [...] this encounter Medical Devices Implanted Type Area Concrete Mixing Plant Superintendent Device Identifier Shelf Expiration Date Model / Serial / Lot Pacer Advisa Dr Dorsey - [id number] - [id number] Implanted:Qty: 1 on 04/11/2017 by Elda Patterson DO at OR [facility] Left: Chest [employer] 08/25/2018 [id number] / [id number] / documented as of this encounter Visit Diagnoses Diagnosis Paroxysmal atrial fibrillation (HCC)- Primary Atrial fibrillation documented in this encounter Advance Directives Documents on File Type Date Recorded Patient Bottom Finisher Expl anation POLST 01/05/2021 [place] OR [facility] FOR LIFE-SUSTAINING TREATMENT Latest Code Status on File Code Status Date Activated Date Inactivated Comments Full Code 07/02/2008 9:35 AM 07/03/2008 5:40 PM Care Teams Dean Of Students Relationship Specialty Start Date End Date Cathy Wilburn MD [address] [place] [address] [place] [phone] PCP - General Family Medicine 12/03/22 documented as of this encounter
--- OUTSIDE RECORDS SUMMARY | 2023-05-27 20:50 | External Medical Summary | Summary of Care ---
Author Name Unknown Organization [facility] Address [address] [place] [address] Phone [phone] Care Team Providers Care Patient Educator Name Role Phone Cathy Fregoso MD Primary Care Provide r Reason for Visit * Reason Comments eRx-Medication Refill Encounter Details Date Type Department Care Team (Late st Contact Info) Description 04/01/2023 Refill Family Medicine [address] [place] [phone] Cathy Fregoso MD [address] [place] [address] [place] [phone] Allergies Active Allergy Reactions Criticality Noted Date [...] as of this encounter (statuses as of 04/02/2023) Medications Medication Sig Dispensed Refills Start Date End Date Status denosumab (PROLIA) 60 MG/ML injection Inject 60 mg under the skin once. 1 Syringe 0 7 Active oxygen GAS Use 2 L/min(Oxygen) [...] for Anxiety. 40 Tablet 0 2 Active DULoxetine HCl 30 MG Oral Capsule Delayed Release Particles (Cymbalta)Indicat ions:Moderate episode of recurrent major depressive disorder (HCC) Take 1 Capsule by mouth in the morning. 30 Capsule 11 3 Active Cholecalciferol 25 MCG (1000 UT) Oral [...] MG Oral Tablet (Lipitor)Indicati ons:Atheroscleros is of kn[place] coronary artery 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 pectoris,Dyslipid emia, goal LDL [...] Tuesday, and Tuesday only. 0 4 Active Losartan Potassium 100 MG Oral Tablet (Cozaar) TAKE ONE TABLET BY MOUTH IN THE MORNING 90 Tablet 3 4 Active amLODIPine Besylate 5 MG Oral Tablet (Norvasc) TAKE ONE TABLET BY MOUTH IN THE MORNING 90 Tablet 3 4 Active amLODIPine Besylate 5 MG Oral Tablet (Norvasc) TAKE ONE TABLET IN THE MORNING 90 Tablet 0 3 04/02/19 24 Discontinued Losartan Potassium 100 MG Oral Tablet (Cozaar) TAKE ONE TABLET IN THE MORNING 90 Tablet 0 3 04/02/19 24 Discontinued documented as of this encounter (statuses as of 04/02/2023) Active Problems Problem Noted Date Diagnosed Date [...] lumbosacral intervertebral disc 02/04/2009 Coronary atherosclerosis of [place] coronary luis ry 02/24/2005 Senile osteoporosis 05/14/2003 Carpal tunnel syndrome 04/23/2003 Moderate mitral regurgitation GENERAL OSTEOARTHROSIS Gastroesophageal reflux disease without esophagi tis Vitamin D deficiency Hyperparathyroidism, primary documented as of this encounter (statuses as of 04/02/2023) Resolved Problems Problem Noted Date Diagnosed Date [...] 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 LOC PRIM [id number] 02/14/200205/30 Other seborrheic keratosis 10/31/2001 0 06/06/2007 [...] as of this encounter (statuses as of 04/02/2023) Immunizations Name Administration Dates Next Due Pneumococcal [...] encounter Miscellaneous Notes * Telephone Encounter - Patricia Cleary [facility] - 04/02/2023 2:46 PM ESTSigned Prescriptions: Disp Refills Losartan Potassium 100 MG Oral Tablet (Coz*90 Tab*3 Sig: TAKE ONE TABLET BY MOUTH IN THE MORNINGAuthorizing Provider: Rafal FREGOSO User: PATRICIA CLEARY amLODIPine Besylate 5 MG Oral Tablet (Norv*90 Tab*3 Sig: TAKE ONE TABLET BY MOUTH IN THE MORNINGAuthorizing Provider: Rafal FREGOSO User: PATRICIA CLEARY documented in this encounter Plan of Treatment Upcoming Encounters Date Type Department Care Team (Late st Contact Info) Description 04/04/2023 6:00 AM EST Anticoagulation Pharmacy Call Center [phone] [facility] [place] [address] [facility] [address] [facility] [place] [address] 04/25/2023 1:00 PM EST Office Visit Endocrinology, [place] [address] [place] [address] Deana Vargas MD [address] [place] [address] 04/26/2023 2:00 PM EST Cardiac Studies Cardiology [address] [place] [address] [facility] [address] [address] 04/29/2023 3:00 PM EST Office Visit Nephrology [address] [place] [address] Josie Butler MD [address] [place] [address] 06/08/2023 2:00 PM EDT Laboratory Laboratory [address] [place] [phone] [facility] Lab [address] [place] [address] 06/15/2023 2:30 PM EDT Office Visit [place]ology[place] [facility] [place] [address] [place] [address] Matt Faustin MD [address] [place] [address] 06/24/2023 2:30 PM EDT Nurse Only Rheumatology [address] [place] [phone] [place], Nurse [address] [place] [phone] 08/02/2023 12:00 PM EDT Office Visit Cardiology [address] [place] [address] Poli Zepeda, PA-C [address] [place] [address] 09/29/2023 10:00 AM EDT Office Visit Family Medicine [address] [place] [phone] Cathy Fregoso MD [address] [place] [address] [place] [address] 10/12/2023 3:00 PM EDT Office Visit [facility] [address] [place] [phone] Isabel Diallo DO [address] [place] [address] 01/23/2024 2:20 PM EST Office Visit Dermatology [address] [place] [address] Amber Orozco, PA-C [address] [place] [address] [place] [address] Health Maintenance Due Date Last Done Comments COVID-19 Vaccine (#1) 1935 Depression Screening 05/30/2021 05/30/2020 Albumin/Creatinine Ratio 07/20/2023 023, 04/06/2021, 05/30/2020, Additional history exists DXA Scan 10/22/2023 10/21/2021, 09/29, 08/28/2018, Additional history exists CKD PHOS USE SMARTSET 98667 11/06/2023 09/0 09/2022, 04/14/2022, 10/06/2021, Additional history exists CKD HGB USE SMARTSET 80228 03/17/202403/17, 03/17/2023, 12/14/2022, Additional history exists DIG LEVEL FOR MEDICATION MONITORING YEARLY 03/17/2024 03/17/2023, 03/08/2022, 06/12/2021, Additional history exists DTaP,Tdap,and Td Vaccines (2 - Td or Tdap) 12/31/2029 01/01/2020 (Declined), 12/30/2009, 12/30/2009, Additional history exists Pneumococcal Vaccine: 65+ Years Completed 02/08/2017, 02/23/2006 VITAMIN D LEVEL ONCE IN A LIFETIME-USE SMARTSET# [id number] Completed 11/05/2022, 04/14/2022, 03/08/2022, Additional history exists [...] this encounter Medical Devices Implanted Type Area Nurse Navigator Device Identifier Shelf Expiration Date Model / Serial / Lot Pacer Advisa Dr Dorsey - [id number] - [id number] Implanted:Qty: 1 on 04/11/2017 by Elda Patterson DO at OR [facility] Left: Chest [employer] 08/25/2018 [id number] / [id number] / documented as of this encounter Advance Directives Documents on File Type Date Recorded Patient Test Deck Supervisor Expl anation POLST 01/05/2021 [place] OR [facility] FOR LIFE-SUSTAINING TREATMENT Latest Code Status on File Code Status Date Activated Date Inactivated Comments Full Code 07/02/2008 9:35 AM 07/03/2008 5:40 PM Care Teams Patient Educator Relationship Specialty Start Date End Date Cathy Fregoso MD [address] [place] [address] [place] [address] PCP - General Family Medicine 12/03/22 documented as of this encounter
--- OUTSIDE RECORDS SUMMARY | 2023-05-27 20:50 | External Medical Summary | Summary of Care ---
Author Name Unknown Organization [facility] Address [address] [place] [place] [place] [address] Phone [phone] Care Team Providers Care Manager Customer Service Name Role Phone Cathy Wilburn MD Primary Care Provide r Reason for Visit * Reason Comments Follow Up 9 month follow up. R ecent falls from being off balance. Palpitations/Flutter ongoing but no worse then prior. Edema in right leg and will use extra fluid pill if necessary. Denies dizziness, chest pain and SOB. Encounter Details Date Type Department Care Team (Latest Contact Info) Description 03/31/2023 8:30 AM EST Office Visit Cardiology [address] [place] [address] Poli Zepeda PA-Zeb [address] [place] [address] Tachy-arnav syndrome (HCC)*; Dependent edema; Persistent atrial fibrillation (HCC); Cardiac pacemaker in situ; Atherosclerosis of [place] coronary artery of [place] heart without angina pectoris; Nonischemic cardiomyopathy (HCC); Moderate mitral regurgitation; Coronary artery disease involving [place] coronary artery of [place] heart without angina pectoris; Dyslipidemia, goal LDL below 70; Chronic diastolic heart failure (HCC) Allergies Active [...] as of this encounter (statuses as of 03/31/2023) Medications Medication Sig Dispensed Refills Start Date [...] MG Oral Tablet (Lipitor)Indicati ons:Atheroscleros is of [place] coronary artery of [place] heart without angina pectoris,Dyslipid emia, goal LDL [...] Tuesday, and Tuesday only. 0 04/01/2023 Active Digoxin 125 MCG Oral Tablet (Lanoxin) take one tablet by mouth tuesday thru tuesday 30 Tablet 11 07/06/2022 4 Discontinue d(Refill) Furosemide 40 MG Oral Tablet (Lasix)Indication s:Dependent edema Take 0.5 Tablets by mouth once a day on Tuesday, Tuesday, and Tuesday only. 0 03/18/2023 4 Discontinue d(Refill) documented as of this encounter (statuses as of 03/31/2023) Active Problems Problem Noted Date Diagnosed Date [...] Distal RLE History of colon cancer 07/17/2021 Tachy-arnav syndrome 07/17/2021 Nonischemic cardiomyopathy 07/08/2021 LVH (left [...] disc 02/04/2009 Coronary atherosclerosis of [place] coronary luis ry 02/24/2005 Senile osteoporosis 05/14/2003 Carpal tunnel syndrome 04/23/2003 Moderate mitral regurgitation GENERAL OSTEOARTHROSIS Gastroesophageal reflux disease without esophagi tis Vitamin D deficiency Hyperparathyroidism, primary documented as of this encounter (statuses as of 03/31/2023) Resolved Problems Problem Noted Date Diagnosed Date [...] 07/02/2008 10/02/19 Overview: RLP Parathyroid adenoma resection Fam Smith, July 02, 2008 ICD-10 update of inactive term Slow transit constipation 02/09/2008 Postmenopausal atrophic vaginitis 02/09/2008 07/15/2017 Hypercalcemia 07/14/2005 05/22/2007 PVC (premature ventricular contraction) 05/26/2005 04/21/2017 Ischemic cardiomyopathy 02/25/200507/29 ADVANCE DIRECTIVE INFORMATION 02/24/2005 02/08/2017 Overview: No, Advance Directive brochure given to patient at prior appointment. OSTEOARTHROS NOS-L-LEG 05/26/200406/20 TENOSYNOV HAND-WRIST NEC 04/23/2003 CERVICAL 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 LOC PRIM [id number] 02/14/200205/30 Other seborrheic keratosis 10/31/2001 0 06/06/2007 [...] as of this encounter (statuses as of 03/31/2023) Immunizations Name Administration Dates Next Due Pneumococcal [...] Sign Reading Time Taken Comments Blood Pressure 136/72 03/31/2023 8:27 AM EST Pulse 80 03/31/2023 8:27 AM EST Temperature - - Respiratory Rate 16 03/31/2023 8:27 AM EST Oxygen Saturation - - Inhaled Oxygen Concentration - - Weight 82.2 kg (181 lb 3.2 oz) 03/31/2023 8:27 A M EST Height - - Body Mass Index 28.38 12/03/2022 5:04 PM EDT documented in this encounter Functional Status Functional [...] as of this encounter Progress Notes * Poli Zepeda PA-C - 03/31/2023 8:32 AM EST History of Present Illness: Miranda Coe is a 87-year-old female here today for cardiology follow-up evaluation. No chest pain. + Palpitations some evenings prior to taking medications, up to five minutes, nothing significant. No unusual shortness of breath.Notes losing her balance because of herknees. Right knee hurts more than the left. + Bilateral lower extremity edema, currently taking furosemide 20 mg on MWF, limiting the dosage because of urinary frequency/incontinence and the cost of Depends. No orthopnea or PND. No positional lightheadedness or dizziness. No near syncope or syncope. No epistaxis, hemoptysis, melena, hematochezia, or hematuria. Her 20 year old pet cat two weeks ago. 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 Lopez): Moderate nonobstructive coronary artery disease (40% proximal LAD, 50% mid LAD. Moderate to severe first septal, small second diagonal disease. Widely patent proximal to mid LAD stent. 40% proximal RCA, 40% mid RCA). Normal intracardiac filling pressure Nonischemic cardiomyopathy Systolic and diastolic heart failure Mitral regurgitation Sleep apnea and hypoxemia. Unable to tolerate CPAP. On supplemental oxygen at 2 L/min QHS. Chronic venous insufficiency with remove vein stripping, with recurrent phlebitis/thrombophlebitis/cellulitis History of significant spontaneous right psoas muscle hematoma (Hemoglobin 6.7 g/dL, receiving 3 units of pRBC's without difficulty) in September 2019. Anticoagulation discontinued at that time. Anticoagulation prescribed x 3 months after presentation in December 2019 with extensive thrombophlebitis and associated cellulitis of the left lower extremity. Hyperparathyroidism Hypertension Dyslipidemia Stage III CKD Esophageal reflux Cervical disc disease Anxiety Colonic carcinoma. Status post April 27, 2021 right laparoscopic hemicolectomy by Dr. Ashok Washington MD. Prolonged hospitalization post hemicolectomy 04/27/2021 to 05/12/2021 with an ileus versus gastroenteritis, right abdominal wall hematoma, acute blood loss requiring transfusion of one unit pRBC's, hyponatremia, acute renal dysfunction, atrial fibrillation with a rapid ventricular response, and hospital acquired right middle lobe pneumonia Hospitalization at [facility] 05/21/2021 to 06/02/2021 with C diff diarrhea, gastritis/likely tyrese esophagitis, acute right lower extremity DVT and left lower extremity SVT, high probability PE, resumptionof anticoagulation Hospitalization in July 2021 with hypertensive urgency, demand ischemia. Past Medical History: Diagnosis Date Acute pulmonary embolism (HCC) 07/17/2021 Allergic rhinitis 10/06/2012 Anxiety state 05/02/2009 Asthma, severity to be determined Atrial premature beats Benign neoplasm of colon 1991 hyperplastic polyp Benign neoplasm of skin Benign paroxysmal vertigo Cardiac pacemaker in situ 04/19/2017 Coronary atherosclerosis of [place] coronary artery 02/01 Degeneration of lumbosacral intervertebral disc 02/04/2009 Depressive disorder, not elsewhere classified 05/02/2009 Diffuse cystic mastopathy Diffuse cystic mastopathy DVT, lower extremity, distal, acute, right ([facility]) 06/03/2021 Dyslipidemia, goal LDL below 100 05/28/2014 Dyslipidemia, goal LDL below 70 10/09/2009 Esophageal reflux Essential hypertension with goal blood pressure less than 140/90 11/24/2015 Ganglion of tendon left foot Generalized osteoarthritis HTN, goal below 130/80 02/04/2009 HTN, goal below 140/90 05/28/2014 Hypercalcemia 11/04 Hyperparathyroidism, primary ([facility]) Hyperparathyroidism, unspecified ([facility]) 07/02/2008 RLP Parathyroid adenoma resection Fam Smith, July 02, 2008 Hypertension goal BP (blood pressure) < 140/80 02/25/2014 Ischemic cardiomyopathy 02/01 LVEF 40 % on cath Kidney disease, chronic, stage III (GFR 30-59 ml/min) ([facility]) 04/08/2015 LAE (left atrial enlargement) 06/03/2021 Duplicate Localized, primary osteoarthritis of hand 02/04/2011 Malignant neoplasm of ascending colon ([facility]) 05/12/2021 S/P colectomy-No current treatment Menopause Mitral valve disorder insufficiency Mitral valve regurgitation Mixed dyslipidemia Multiple thyroid nodules Need for prophylactic hormone replacement therapy (postmenopausal) neurofibroma Osteoarthrosis, unspecified whether generalized or localized, lower leg 05/26/2004 Other and unspecified malignant neoplasm of skin of other and unspecified parts of face basal cell carcinoma mid forehead Other facial bones, closed fracture left side of face Other malignant neoplasm of skin, site unspecified 1990 bcc/forehead removed by dr schultz Other premature beats 05/26/2005 Other seborrheic keratosis Other specified causes of urethral stricture Other tenosynovitis of hand and wrist 04/23/2003 Pain in limb 07/29/2001 Paroxysmal atrial tachycardia Pericarditis 03/06/2015 Primary localized osteoarthrosis, lower leg 02/14/2002 Pulmonary embolism and infarction (HCC) 06/03/2021 Reflux esophagitis 11/18/2000 SBE (subacute bacterial endocarditis) prophylaxis candidate Senile osteoporosis Senile osteoporosis Sleep apnea, obstructive Syncope and collapse Tachycardia Varicose vein of leg 06/17/2012 Venous insufficiency 10/22/2009 Vitamin B deficiency 08/29 low B12 level Vitamin D deficiency Past Surgical History: Procedure Laterality Date CATHETERIZE LEFT HEART THRU SKIN 02/18/2005 Dr. Gunter - [facility]ST 1 VIEW 03/19/2001 PAH--the heart appears to be normal in size. The lungs are expanded and grossly clear. COLONOSCOPY 2020 malignany appearing mass IC valve biopsied. four polyps, removed. diverticulosis, hemorrhoids. COLONOSCOPY, DIAGNOSTIC (RECTUM) 01/02/2009 normal- Dr. 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 Schultz - normal EGD, FLEXIBLE, DIAGNOSTIC 01/15/2021 normal bx / [facility] EXPLORE PARATHYROID GLANDS 07/02/2008 PARATHYROIDECTOMY performed by FAM SMITH [place] [facility] INFORMATION FACIAL FX INFORMATION L hand tumor INSERT/REPLACE PACEMAKER,ATRIAL/VENTRICULAR Left 04/11/2017 NEW DDD PACEMAKER IMPLANT performed by Elda Patterson DO at OR [facility] INSERTION OF LENS PROSTHESIS 07/05/2012 right eye, dr ortega KNEE ARTHROSCOPY, DIAGNOSTIC 01/28/1994 left knee LAPAROSCOPIC COLECTOMY PARTIAL WITH ANASTOMOSIS 04/27/2021 right hemicolectomy, Dr. Salamanca [facility] CARDIAC THALLIUM STRESS, OUTSIDE FILMS 01/28/1998 negative PARTIAL REMOVAL OF COLON Right 04/27/2021 right hemicolectomy with anastamosis for ascending colon cancer--Dr. Ashok Salamanca PERC STENT/CHEST VERTEBRAL ARTERY, INITIAL 02/18/2005 LAD EDGE INKER VEIN LIGATION W/ GRAFT, 1 LEG LLE REMOVE TONSILS & ADENOIDS, AGE 12+ SIGMOIDOSCOPY, DIAGNOSTIC 07/06/93 & 10/06/98 Dr. Schultz TOTAL ABD HYSTERECTOMY W/WO REMOVAL OF TUBE(S) 30 yo prolapse - has ovaries in UPPER GI ENDOSCOPY 2020 normal stomach, biopsied. normal examined duodenum, normal examined jejunem VASC RENAL VASCULAR SCAN-COMPLETE 06/29/2007 no renal artery stenosis Family History Problem Relation Age of Onset Diabetes Brother Cancer Mother lymphoma Diabetes Sister Arthritis Son rheumatic fever, Osteo Arthritis Other (Other) Son ruptured diaphragm as , lung collapsed Diabetes Son borderline Social History Social History Marital status: Spouse name: Mian Number of children: 5 Years of education: N/A Occupational History NA [employer] retired 06/28/99 Social History Main Topics Smoking status: Never Smoker Smokeless tobacco: Never Used Alcohol use No Drug use: No Sexual activity: Yes Partners: Male Other Topics Concern Seat Belt Yes Social History Narrative Complete Review of Systems is as stated above, negative, or noncontributory. Review of patient's allergies indicates: Allergen Reactions [...] Red Dye Hives Erythromycin Nausea/vomiting Upset stomach Current Outpatient Medications Medication Sig Dispense Refill [...] as needed for Anxiety. 40 Tablet 0 DULoxetine HCl 30 MG Oral Capsule Delayed Release Particles (Cymbalta) Take 1 Capsule by mouth in the morning. 30 Capsule 11 Cholecalciferol 25 MCG (1000 UT) Oral Capsule Take 1 Capsule by mouth as needed. Digoxin 125 MCG Oral Tablet (Lanoxin) take one tablet by mouth tuesday thru tuesday 30 Tablet 11 Vitamin B-12 1000 MCG Oral Tablet (Cyanocobalamin) TAKE 1 TABLET BY MOUTH ON TUESDAY, TUESDAY AND TUESDAY 30 Tablet 11 Aspirin Low Dose 81 MG Oral Tablet Delayed Release (aspirin enteric coated) TAKE ONE TABLET IN THE MORNING 30 Tablet 11 Metoprolol Succinate ER 100 MG Oral Tablet Extended Release 24 Hour (toPROL XL) Take 1.5 Tablets bymouth in the morning and 1.5 Tablets before bedtime. 120 Tablet 5 Warfarin Sodium 2 MG Oral Tablet (Jantoven) Take 1-2 Tablets by mouth every evening. 180 Tablet 1 amLODIPine Besylate 5 MG Oral Tablet (Norvasc) TAKE ONE TABLET IN THE MORNING 90 Tablet 0 Losartan Potassium 100 MG Oral Tablet (Cozaar) TAKE ONE TABLET IN THE MORNING 90 Tablet 0 Atorvastatin Calcium 40 MG Oral Tablet (Lipitor) TAKE ONE TABLET AT BEDTIME 90 Tablet 0 Omeprazole 20 MG Oral Capsule Delayed Release (PriLOSEC) TAKE ONE CAPSULE BY MOUTH IN THE MORNING 90 Capsule 1 Furosemide 40 MG Oral Tablet (Lasix) Take 0.5 Tablets by mouth once a day on Tuesday, Tuesday, andTuesday only. Bladder Control Pads Ex Absorb Daily use of urinary incontinence 72 Each 11 Diclofenac Sodium 1 % External Gel (Voltaren) Apply to the affected area daily 350 g 2 Vitamin C 500 MG Oral Capsule Take 1 Tablet by mouth every morning. denosumab (PROLIA) 60 MG/ML injection Inject 60 mg under the skin once. 1 Syringe 0 Benzonatate 100 MG Oral Capsule Take 1 Capsule by mouth 3 times a day as needed for Cough. 30 Capsule 1 No current facility-administered medications for this visit. OBJECTIVE/PHYSICAL EXAMINATION: BP 136/72 | Pulse 80 | Resp 16 | Wt 82.2 kg (181 lb 3.2 oz) | BMI 28.38 kg/m | BSA 1.97 m General: A&Ox3. NAD. HENT: Normocephalic. Atraumatic. Eyes: PER. Conjunctiva pink, sclera clear. Neck: Normal JVP. No carotid bruits. Heart: Irregular, 70 bpm. Soft apical systolic murmur. No diastolic murmur. No rub. No gallop. PMI is nondisplaced. Lungs: Clear to auscultation. Abdomen:+BS. Soft. Nontender. No masses or organomegaly. Extremities: 1+ edema. + Varicosities. No clubbing. No cyanosis. Limited neurological examination is without focal deficits. Pulses: radial=2/4, posterior tibial=1/4. Data: July 27, 2021 TTE Interpretation Summary ([facility], Dr. Alberot): Mildly reduced LV systolic function. Ejection fraction 45 to 50%. Moderate concentric LVH. Severely dilated left atrium. Mild aortic valve sclerosis without significant stenosis. Mild aortic regurgitation. Moderate mitral regurgitation. Moderate to severe tricuspid regurgitation. Estimated systolic pulmonary pressure 51 mmHg. Dilated IVC with reduced collapsibility indicating an elevated right atrial pressure 15 mmHg. Compared to theprior study of May 23, 2021, LV systolic function is mildly improved. August 10, 2022 TTE Interpretation Summary (as per Dr. Alberto): The qualitative LV ejection fraction is 50-54% (normal). The septal motion is abnormal consistent with right ventricular pacemaker. Theleft atrium is severely enlarged (>48 ml/m^2,). The left ventricular diastolic function is moderately abnormal (grade II). Mild aortic valve regurgitation is present. Moderate to severe mitral regurgitation. Moderate tricuspid regurgitation is present. There is no evidence of pulmonary hypertension. Compared to echocardiogram dated February 10, 2021, qualitatively, the degree of mitral regurgitation is unchanged. Pacemaker interrogation on October 05, 2022 demonstrated appropriate function. Mode: VVIR. Lower rate: 60 bpm. Upper sensor rate: 120 bpm. Remaining longevity: 15 months. Chronic atrial fibrillation. Average ventricular rates stable, well controlled. Ventricular paced 72.9%. Lipid Panel Results: Results for orders placed or performed in visit on 03/17/23 LIPID PANEL WITHOUT DIRECT LDL Result Value Ref Range Triglycerides 156 <=174 mg/dL Cholesterol 128 <200 mg/dL HDL Cholesterol 37 (L) >49 mg/dL Non-HDL Cholesterol 91 <=159 mg/dL LDL Cholesterol 60 <=129 mg/dL Digoxin level 1.4 ng/mL on 03/17/2023. ASSESSMENT: ASCVD. Stable Systolic and diastolic congestive heart failure Nonischemic cardiomyopathy Mitral regurgitation Volume status: Mild hypervolemia. Tachy-Arnav Syndrome status post pacemaker implantation, with chronically elevated right atrial lead threshold, programmed VVIR due to permanent atrial fibrillation Permanent atrial fibrillation Chronic venous insufficiency with extensive varocosities, remove history of vein stripping, past phlebitis/thrombophlebitis/cellulitis, December 2019 extensive thrombophlebitis and associated cellulitis of the left lower extremity, April 2021 acute right lower extremity DVT and left lower extremitySVT, high probability PE. Colonic carcinoma, status post April 27, 2021 right laparoscopic hemicolectomy Hypertension Dyslipidemia. Stage III CKD Anemia. Options discussed. Plan as outlined below. RECOMMENDATIONS/PLAN: Hold digoxin, resuming next Tuesday at the reduced dose of 125 mcg only on Tuesday's, Tuesday's,and Tuesday's. Increase furosemide to 20 mg (1/2 tablet) most days. Device interrogation with [employer] patient service representative 04/26/2023. Future generator exchange discussed along with lead/upgrade. Continue anticoagulation. Benefits of anticoagulation still appear to be greater than the risks. Continue medical management of the ASCVD. Cardiology follow-up in 4 months, or as needed. ER with emergencies. Poli Zepeda PA-C Department of Cardiology I spent a total of 30-39 minutes (exact time 31 mins) on the date of service in preparation, delivery, and documentation of the care provided to Miranda Coe excluding any time spent in the performance of separately billed services. This chart was completed in part utilizing [employer] Speech Voice Recognition Software. Grammatical errors, random word insertions, prounoun errors, and incomplete sen tences are an occasional consequence of this system due to software limitations, ambient noise, andhardware issues. Any formal questions or concerns about the content, text, or information containedwithin the body of this dictation should be directly addressed to the provider for clarification. documented in this encounter Nursing Notes * Farooq Barton LPN - 03/31/2023 8:26 AM EST Patient identified by full name and date of Chief Complaint Patient presents with Follow Up 9 month follow up. Recent falls from being off balance. Palpitations/Flutter ongoing but no worse then prior. Edema in right leg and will use extra fluid pill if necessary. Denies dizziness, chest pain and SOB. Examination Room: 4 Name: Miranda Coe Date of : (1935). Reason for Visit: 9 month follow up Interim Hospitalization(s): ED 01/20/23 Problems/Concerns: See chief complaint Chest Pain/SOB: Denies [facility] Discussed: Yes My [facility] is a way you can talk to your provider online through e-mail. Would you like to sign up? I can activate it for you? DECLINES Patient was instructed to not get up on the exam table until directed and assisted by their provider; patient is to remain seated in the chair/ wheelchair/ exam table for fall prevention and safety reasons. Patient is aware to have assistance to step down off exam table with personnel. Patient voiced full comprehension of instructions. documented in this encounter Plan of Treatment Upcoming Encounters Date Type Department Care Team (Late st Contact Info) Description 04/01/2023 8:20 AM EST Laboratory Lab Mobile Ph[place]bot[place] [facility] [address] [place] [address] [facility] Home Draw [address] [place] [address] 04/04/2023 6:00 AM EST Anticoagulation Pharmacy Call Center [phone] [place] [phone] [facility] [phone] [facility] [place] [phone] 04/25/2023 1:00 PM EST Office Visit Endocrinology, [place] [address] [facility] [place] [address] Deana Vargas MD [address] [facility] [place] [address] 04/26/2023 2:00 PM EST Cardiac Studies Cardiology [address] [place] [address] Lucia Jimenez [facility] [address] [place] [address] 04/29/2023 3:00 PM EST Office Visit Nephrology [address] [place] [address] Josie Butler MD [address] [place] [address] 06/08/2023 2:00 PM EDT Laboratory Laboratory [address] [place] [phone] [place], Lab [address] [place] [address] 06/15/2023 2:30 PM EDT Office Visit Hematology/Oncology [facility] [place] [address] [place] [address] Matt Faustin MD [address] [place] [address] 06/24/2023 2:30 PM EDT Nurse Only Rheumatology [address] [place] [phone] [place], Nurse [address] [place] [phone] 08/02/2023 12:00 PM EDT Office Visit Cardiology [address] [place] [address] Poli Zepeda PA-C [address] [place] [address] 09/29/2023 10:00 AM EDT Office Visit Family Medicine [address] [place] [phone] Cathy Wilburn MD [address] [place] [address] [place] [address] 10/12/2023 3:00 PM EDT Office Visit Sleep Disorders [facility] [address] [place] [phone] Isabel Diallo DO [address] [place] [address] 01/23/2024 2:20 PM EST Office Visit Dermatology [address] [place] [address] Amber Orozco PA-C [address] [place] [address] [place] [address] Health Maintenance Due Date Last Done Comments COVID-19 Vaccine (#1) 1935 Depression Screening 05/30/2021 05/30/2020 Albumin/Creatinine Ratio 07/20/2023 023, 04/06/2021, 05/30/2020, Additional history exists DXA Scan 10/22/2023 10/21/2021, 09/29, 08/28/2018, Additional history exists CKD PHOS USE SMARTSET 82634 11/06/2023 09/0 09/2022, 04/14/2022, 10/06/2021, Additional history exists CKD HGB USE SMARTSET 40013 03/17/202403/17, 03/17/2023, 12/14/2022, Additional history exists DIG LEVEL FOR MEDICATION MONITORING YEARLY 03/17/2024 03/17/2023, 03/08/2022, 06/12/2021, Additional history exists DTaP,Tdap,and Td Vaccines (2 - Td or Tdap) 12/31/2029 01/01/2020 (Declined), 12/30/2009, 12/30/2009, Additional history exists Pneumococcal Vaccine: 65+ Years Completed 02/08/2017, 02/23/2006 VITAMIN D LEVEL ONCE IN A LIFETIME-USE SMARTSET# [id number] Completed 11/05/2022, 04/14/2022, 03/08/2022, Additional history exists [...] this encounter Medical Devices Implanted Type Area Pomology Teacher Device Identifier Shelf Expiration Date Model / Serial / Lot Pacer Advisa Dr Dorsey - [id number] - [id number] Implanted:Qty: 1 on 04/11/2017 by Elda Patterson DO at OR [facility] Left: Chest [employer] 08/25/2018 [id number] / [id number] / documented as of this encounter Visit Diagnoses Diagnosis Tachy-arnav syndrome (HCC)- Primary Sinoatrial node dysfunction Dependent edema Edema Persistent atrial fibrillation (HCC) Atrial fibrillation Cardiac pacemaker in situ Atherosclerosis of [place] coronary artery of [place] heart without angina pectoris Nonischemic cardiomyopathy (HCC) Other primary cardiomyopathies Moderate mitral regurgitation Mitral valve disorders Coronary artery disease involving [place] coronary artery of [place] heart without angina pectoris Dyslipidemia, goal LDL below 70 Other and unspecified hyperlipidemia Chronic diastolic heart failure (HCC) Chronic diastolic heart failure documented in this encounter Advance Directives Documents on File Type Date Recorded Patient Cap Maker Expl anation POLST 01/05/2021 [place] [facility] FOR LIFE-SUSTAINING TREATMENT Latest Code Status on File Code Status Date Activated Date Inactivated Comments Full Code 07/02/2008 9:35 AM 07/03/2008 5:40 PM Care Teams Manager Customer Service Relationship Specialty Start Date End Date Cathy Wilburn MD [address] [place] [address] [place] [id number] PCP - General Family Medicine 12/03/22 documented as of this encounter"
--- OUTSIDE RECORDS SUMMARY | 2023-05-27 20:50 | External Medical Summary | Summary of Care ---
Author Name Unknown Organization [facility] Address [address] [facility] [place] [address] Phone [phone] Care Team Providers Care It Training Specialist Name Role Phone Cathy Wilburn MD Primary Care Provide r Encounter Details Date Type Department Care Team (Late st Contact Info) Description 03/22/2023 Orders Only PATIENT PORTAL DO NOT DELETE THIS DEPT USED BY [place] AND[place]WS [id number] Allergies Active Allergy Reactions Criticality Noted Date [...] as of this encounter (statuses as of 03/22/2023) Medications Medication Sig Dispensed Refills Start Date [...] tuesday thru tuesday 30 Tablet 11 07/06/2022 Active Vitamin B-12 1000 MCG Oral [...] 40 MG Oral Tablet (Lipitor)Indication s:Atherosclerosis of [place] coronary artery of [place] heart without angina pectoris,Dyslipidem ia, goal LDL [...] as of this encounter (statuses as of 03/22/2023) Active Problems Problem Noted Date Diagnosed Date [...] lumbosacral intervertebral disc 02/04/2009 Coronary atherosclerosis of [place] coronary luis ry 02/24/2005 Senile osteoporosis 05/14/2003 Carpal tunnel syndrome 04/23/2003 Moderate mitral regurgitation GENERAL OSTEOARTHROSIS Gastroesophageal reflux disease without esophagi tis Vitamin D deficiency Hyperparathyroidism, primary documented as of this encounter (statuses as of 03/22/2023) Resolved Problems Problem Noted Date Diagnosed Date [...] 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 LOC PRIM [id number] 02/14/200205/30 Other seborrheic keratosis 10/31/2001 0 06/06/2007 [...] as of this encounter (statuses as of 03/22/2023) Immunizations Name Administration Dates Next Due Pneumococcal [...] 03/31/2023 8:30 AM EST Office Visit Cardiology [address] [place] [address] Poli Zepeda PA-C [address] [place] [address] 04/01/2023 8:20 AM EST Laboratory Lab [facility] [address] [facility] [place] [address] [facility], l Mobile Home Draw [address] [place] [facility] [place] [address] 04/04/2023 6:00 AM EST Anticoagulation Pharmacy Call Center 58[address] [place] [address] [facility] 58 [address] [place] [address] 04/25/2023 1:00 PM EST Office Visit Endocrinology, [place] [address] [facility] [place] [address] Deana Vargas MD [address] [facility] [place] [address] 04/26/2023 2:00 PM EST Cardiac Studies Cardiology [address] [place] [address] [place], Pacer [facility] [address] [place] [address] 06/08/2023 2:00 PM EDT Laboratory Laboratory [address] [place] [phone] [place], Lab [address] [place] [address] 06/15/2023 2:30 PM EDT Office Visit Hematology/Oncology [facility] [place] [address] [place] [address] Matt Faustin MD [address] [place] [address] 06/24/2023 2:30 PM EDT Nurse Only Rheumatology [address] [place] [phone] [place], Nurse Rheum [address] [place] [phone] 09/26/2023 2:20 PM EDT Office Visit Nephrology [address] [place] [address] Josie Butler MD [address] [place] [address] 09/29/2023 10:00 AM EDT Office Visit Family Medicine [address] [place] [phone] Cathy Wilburn MD [address] [place] [address] [place] [address] 10/12/2023 3:00 PM EDT Office Visit Sleep Disorders Ctr [facility] [address] [phone] Isabel Diallo DO [address] [address] 01/23/2024 2:20 PM EST Office Visit Dermatology [address] [place] [address] Amber Orozco PA-C [address] [place] [address] [place] [address] Health Maintenance Due Date Last Done Comments COVID-19 Vaccine (#1) 1935 Depression Screening 05/30/2021 05/30/2020 Albumin/Creatinine Ratio 07/20/2023 023, 04/06/2021, 05/30/2020, Additional history exists DXA Scan 10/22/2023 10/21/2021, 02/2018, 12/29/2015, Additional history exists CKD PHOS USE SMARTSET 18335 11/06/20230 09/2022, 04/14/2022, 10/06/2021, Additional history exists CKD HGB USE SMARTSET 06712 03/17/202403/17, 03/17/2023, 12/14/2022, Additional history exists DIG LEVEL FOR MEDICATION MONITORING YEARLY 03/17/2024 03/17/2023, 03/08/2022, 06/12/2021, Additional history exists DTaP,Tdap,and Td Vaccines (2 - Td or Tdap) 12/31/2029 01/01/2020 (Declined), 12/30/2009, 12/30/2009, Additional history exists Pneumococcal Vaccine: 65+ Years Completed 02/08/2017, 02/23/2006 VITAMIN D LEVEL ONCE IN A LIFETIME-USE SMARTSET# 49870 Completed 11/05/2022, 04/14/2022, 03/08/2022, Additional history exists [...] this encounter Medical Devices Implanted Type Area Wet Process Technician Device Identifier Shelf Expiration Date Model / Serial / Lot Pacer Advisa Dr Dorsey - [id number] - [id number] Implanted:Qty: 1 on 04/11/2017 by Elda Patterson DO at OR [facility] Left: Chest [employer] 08/25/2018 [id number] / [id number] / documented as of this encounter Advance Directives Documents on File Type Date Recorded 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
--- OUTSIDE RECORDS SUMMARY | 2023-05-27 20:50 | External Medical Summary ---
Author Name Unknown Address Unknown Organization K0G:[facility] [address] [place] [address] Laboratory Report Ordering Provider Test Date Status LETICIA MADRIGAL 04/01/2023 09:00:00 Final Standing order for pt/inr. < br/>Please draw pt/inr every 1 to 4 weeks as requested
Results to [facility]

Warfarin Therapy
INR: 2.0-3.0 conventional anticoagulation
INR: 2.5-3.5 high intensity anticoagulation Observation Date Value Abnormality Reference (Units ) Status PT 04/01/2023 09:00:00 24.4 Above high normal 11 .6-15.2 (seconds) Final INR 04/01/2023 09:00:00 2.2 Above high normal 0. 8-1.2 Final Performing Location [facility] [address] - [address] [place] [address]
--- OUTSIDE RECORDS SUMMARY | 2023-05-27 20:51 | External Medical Summary | Summary of Care ---
Author Name Unknown Organization [facility] Address [address] [place] [address] Phone [phone] Care Team Providers Care Graduate Recruiter Name Role Phone Cathy Wilburn MD Primary Care Provide r Reason for Visit * Reason Comments Outpatient Testing Encounter Details Date Type Department Care Team (Late st Contact Info) Description 03/17/2023 1:40 PM EST Laboratory Laboratory [address] [place] [phone] [place] [address] Arrived Allergies Active Allergy Reactions Criticality Noted Date [...] as of this encounter (statuses as of 03/17/2023) Medications Medication Sig Dispensed Refills Start Date [...] 40 MG Oral Tablet (Lipitor)Indication s:Atherosclerosis of [place] coronary artery of [place] heart without angina pectoris,Dyslipidem ia, goal LDL [...] urinary incontinence 72 Each 11 03/17/2023 Active documented as of this encounter (statuses as of 03/17/2023) Active Problems Problem Noted Date Diagnosed Date [...] lumbosacral intervertebral disc 02/04/2009 Coronary atherosclerosis of [place] coronary luis ry 02/24/2005 Senile osteoporosis 05/14/2003 Carpal tunnel syndrome 04/23/2003 Moderate mitral regurgitation GENERAL OSTEOARTHROSIS Gastroesophageal reflux disease without esophagi tis Vitamin D deficiency Hyperparathyroidism, primary documented as of this encounter (statuses as of 03/17/2023) Resolved Problems Problem Noted Date Diagnosed Date [...] 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 LOC PRIM [id number] 02/14/200205/30 Other seborrheic keratosis 10/31/2001 0 06/06/2007 [...] as of this encounter (statuses as of 03/17/2023) Immunizations Name Administration Dates Next Due Pneumococcal [...] 03/31/2023 8:30 AM EST Office Visit Cardiology [address] [place] [address] Poli Zepeda PA-C [address] [place] [address] 04/01/2023 8:20 AM EST Laboratory Lab Mobile Phlebotomy [facility] [address] [facility] [place] [address] [facility], l Mobile Home Draw [address] [place] [address] 04/04/2023 6:00 AM EST Anticoagulation Pharmacy Call Center 58[address]60 [facility] [place] [address] [facility] 58 60 [facility] [place] [address] 04/25/2023 1:00 PM EST Office Visit Endocrinology, [place] [address] [place] [address] Deana Vargas MD [address] [place] [address] 04/26/2023 2:00 PM EST Cardiac Studies Cardiology [address] [place] [address] [place], Pacer [facility] [address] [place] [address] 06/08/2023 2:00 PM EDT Laboratory Laboratory [address] [place] [phone] [place], Lab [address] [place] [address] 06/15/2023 2:30 PM EDT Office Visit Hematology/Oncology [facility] [place] [address] [place] [address] Matt Faustin MD [address] [place] [address] 06/24/2023 2:30 PM EDT Nurse Only Rheumatology [address] [place] [phone] [place], Nurse Rheum [address] [place] [phone] 09/26/2023 2:20 PM EDT Office Visit Nephrology [address] [place] [address] Josie Butler MD [address] [place] [address] 10/12/2023 3:00 PM EDT [facility] [address] [place] [phone] Isabel Diallo, [address] [place] [address] 01/23/2024 2:20 PM EST Office Visit Dermatology [address] [place] [address] Amber Orozco PA-C [address] [place] [address] [place] [address] Health Maintenance Due Date Last Done Comments COVID-19 Vaccine (#1) 1935 Depression Screening 05/30/2021 05/30/2020 DIG LEVEL FOR MEDICATION MONITORING YEARLY 03/08/2023 03/08/2022, 06/12/2021, 05/18/2021, Additional history exists Albumin/Creatinine Ratio 07/20/2023 023, 04/06/2021, 05/30/2020, Additional history exists DXA Scan 10/22/2023 10/21/2021, 02/2018, 12/29/2015, Additional history exists CKD PHOS USE SMARTSET 44925 11/06/20230 09/2022, 04/14/2022, 10/06/2021, Additional history exists CKD HGB USE SMARTSET 65044 12/15/202312/14, 12/14/2022, 07/19/2022, Additional history exists DTaP,Tdap,and Td Vaccines (2 - Td or Tdap) 12/31/2029 01/01/2020 (Declined), 12/30/2009, 12/30/2009, Additional history exists Pneumococcal Vaccine: 65+ Years Completed 02/08/2017, 02/23/2006 VITAMIN D LEVEL ONCE IN A LIFETIME-USE SMARTSET# 58056 Completed 11/05/2022, 04/14/2022, 03/08/2022, Additional history exists [...] this encounter Medical Devices Implanted Type Area Core Cutter Device Identifier Shelf Expiration Date Model / Serial / Lot Pacer Advisa Dr Dorsey - [id number] - [id number] Implanted:Qty: 1 on 04/11/2017 by Elda Patterson DO at OR [facility] Left: Chest [employer] 08/25/2018 [id number] / [id number] / documented as of this encounter Advance Directives Documents on File Type Date Recorded 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
--- OUTSIDE RECORDS SUMMARY | 2023-05-27 20:51 | External Medical Summary ---
Author Name Unknown Address Unknown Organization K01:[facility] - [address] [place] [address] Laboratory Report Ordering Provider Test Date Status GARCÍA ARREOLABrianna 03/17/2023 13:41:23 Litzy l Observation Date Value Abnormality Reference (Units ) Status Mulino cells [Presence] in Blood by Light microscopy 03/17/2023 13:41:23 Moderate Abnormal None Seen Final Elliptocytes [Presence] in Blood by Light microscopy 03/17/2023 13:41:23 Moderate Abnormal None Seen Final Ovalocytes [Presence] in Blood by Light microscopy 03/17/2023 13:41:23 Moderate Abnormal None Seen Final Performing Location [facility] - [address] [place] [address]
--- OUTSIDE RECORDS SUMMARY | 2023-05-27 20:51 | External Medical Summary | Summary of Care ---
Author Name Unknown Organization [facility] Address [address] [place] [address] Phone [phone] Care Team Providers Care Agricultural Equipment Sales Engineer Name Role Phone Cathy Wilburn MD Primary Care Provide r Reason for Visit * Reason Onset Date Comments Test Results 02/17/2023 Encounter Details Date Type Department Care Team (Late st Contact Info) Description 02/17/[address] [place] [phone] Avrin Max MD [address] [place], [place] [address] [address] Test Results Allergies Active Allergy Reactions Criticality [...] as of this encounter (statuses as of 02/17/2023) Medications Medication Sig Dispensed Refills Start Date End Date Status denosumab (PROLIA) 60 MG/ML injection Inject 60 mg under the skin once. 1 Syringe 0 02/08/2017 Active oxygen GAS Use 2 L/min(Oxygen) as directed at bedtime. 0 Active Latanoprost 0.005 % Ophthalmic Solution (Xalatan) ONE DROP IN EACH EYE AT BEDTIME 2.5 mL 2021 Active Acetaminophen 325 MG Oral Tablet (Tylenol) Take by mouth 2 Tablets every 4 hours as needed for Fever >38C(100.5F), Pain, Mild, Pain, Moderate or Pain, Severe. 100 Tablet 1 2021 Active LORazepam 0.5 MG Oral Tablet (Ativan)Indications: Anxiety Take 1 Tablet (0.5 mg) by mouth every 8 hours as needed for Agitation or Anxiety. Take 1 Tablet by mouth daily as needed for Anxiety. 40 Tablet 0 02/05/2022 Active DULoxetine HCl 30 MG Oral Capsule Delayed Release Particles (Cymbalta)Indication s:Moderate episode of recurrent major depressive disorder (HCC) Take 1 Capsule by mouth in the morning. 30 Capsule 04/23/2022 Active Cholecalciferol 25 MCG (1000 UT) Oral Capsule Take 1 Capsule by mouth as needed. 0 06/16/2022 Active Digoxin 125 MCG Oral Tablet (Lanoxin) take one tablet by mouth tuesday thru tuesday 30 Tablet 07/06/2022 Active Vitamin B-12 1000 MCG Oral Tablet (Cyanocobalamin)Sonia cations:B12 deficiency TAKE 1 TABLET BY MOUTH ON TUESDAY, TUESDAY AND TUESDAY 30 Tablet 07/06/2022 Active Aspirin Low Dose 81 MG Oral Tablet Delayed Release (aspirin enteric coated) TAKE ONE TABLET IN THE MORNING 30 Tablet 07/06/2022 Active Atorvastatin Calcium 40 MG Oral Tablet (Lipitor)Indications :Atherosclerosis of [place] coronary artery of [place] heart without angina pectoris,Dyslipidemi a, goal LDL below 70 Take 1 Tablet by mouth every evening. 30 Tablet 5 08/27/2022 Active Benzonatate 100 MG Oral CapsuleIndications:B ronchitis, complicated Take 1 Capsule by mouth 3 times a day as needed for Cough. 30 Capsule 1 09/01/2022 Active Furosemide 40 MG Oral Tablet (Lasix)Indications:D ependent edema Take 1 Tablet by mouth once a day on Tuesday, Tuesday, and Tuesday only. 60 Tablet 5 09/08/2022 Active Omeprazole 20 MG Oral Capsule Delayed Release (PriLOSEC)Indication s:Gastro-esophageal reflux disease without esophagitis Take 1 Capsule by mouth in the morning. 90 Capsule 1 09/22/2022 Active Metoprolol Succinate ER 100 MG Oral Tablet Extended Release 24 Hour (toPROL XL)Indications:Parox ysmal atrial fibrillation (HCC) Take 1.5 Tablets by mouth in the morning and 1.5 Tablets before bedtime. 120 Tablet 5 10/18/2022 Active Enoxaparin Sodium 80 MG/0.8ML Injection Solution Prefilled Syringe (Lovenox)Indications :Paroxysmal atrial fibrillation (HCC),DVT, lower extremity, distal, acute, right (HCC),Pulmonary embolism and infarction (HCC) Inject 80 mg under the skin in the morning and 80 mg before bedtime. As instructed by the [facility]. 8 mL 0 11/24/2022 Active Warfarin Sodium 2 MG Oral Tablet (Jantoven) Take 1-2 Tablets by mouth every evening. 180 Tablet 1 12/31/2022 Active amLODIPine Besylate 5 MG Oral Tablet (Norvasc) TAKE ONE TABLET IN THE MORNING 90 Tablet 0 01/11/2023 Active Losartan Potassium 100 MG Oral Tablet (Cozaar) TAKE ONE TABLET IN THE MORNING 90 Tablet 0 01/11/2023 Active predniSONE 20 MG Oral Tablet (Deltasone)Indicatio ns:Acute right-sided low back pain without sciatica 1 tab 3 times a day for 3 days, then 1 tab 2 times a day for 3 days, then 1 tab daily for 3 days 18 Tablet 0 02/15/2023 Active documented as of this encounter (statuses as of 02/17/2023) Active Problems Problem Noted Date Diagnosed Date Hypertensive heart and kidne y disease with [...] ial veins of left lower extremity 01/01/2020 Thoracic aorta atherosclerosis 11/06/2019 History of falling 09/07/2019 Peripheral edema 09/07/2019 [...] lumbosacral intervertebral disc 02/04/2009 Coronary atherosclerosis of [place] coronary luis ry 02/24/2005 Senile osteoporosis 05/14/2003 Carpal tunnel syndrome 04/23/2003 Moderate mitral regurgitation GENERAL OSTEOARTHROSIS Gastroesophageal reflux disease without esophagi tis Vitamin D deficiency Hyperparathyroidism, primary documented as of this encounter (statuses as of 02/17/2023) Resolved Problems Problem Noted Date Diagnosed Date [...] kidney disease 01/07/202003/31 Overview: Per CKD protocol Acute post-hemorrhagic anemia 10/22/2019 02/10/2021 Hypertensive heart [...] 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 LOC PRIM [id number] 02/14/200205/30 Other seborrheic keratosis 10/31/2001 0 06/06/2007 [...] as of this encounter (statuses as of 02/17/2023) Immunizations Name Administration Dates Next Due Pneumococcal [...] encounter Miscellaneous Notes * Telephone Encounter - Zoe Romero LPN - 02/17/2023 1:12 PM EST Pt is aware of Note Below She states the Prednisone is starting to Help * Telephone Encounter - Arvin Max MD - 02/17/2023 8:32 AM EST Please let patient know the radiologist did not see any fractures in the back either. I hope she feels better with the prednisone. documented in this encounter Plan of Treatment Upcoming Encounters Date Type Department Care Team (Late st Contact Info) Description 03/04/2023 8:20 AM EST Laboratory Lab Mobile Phlebotomy [facility] [address] [place] [address] [facility] Mobile Home Draw [address] [place] [address] 03/07/2023 6:00 AM EST Anticoagulation Pharmacy Call Center 58[address] [facility] [place] [address] [facility] 58 60 [facility] [place] [address] 03/17/2023 1:00 PM EST Office Visit Family Medicine [address] [place] [phone] Cathy Wilburn MD [address] [place] [address] [place] [address] 03/31/2023 8:30 AM EST Office Visit Cardiology [address] [place] [address] Poli Zepeda PA-C [address] [place] [address] 04/25/2023 1:00 PM EST Office Visit Endocrinology, [place] [address] [place], [place] [id number] Deana Vargas MD [address] [place] [address] 04/26/2023 2:00 PM EST Cardiac Studies Cardiology [address] [place] [address] Lucia [facility] [address] [place] [address] 06/08/2023 2:00 PM EDT Laboratory Laboratory [address] [place] [phone] [facility] Lab [address] [place] [address] 06/15/2023 2:30 PM EDT Office Visit Hematology/Oncology [facility] [address] [place] [address] Matt Faustin MD [address] [place] [address] 06/24/2023 2:30 PM EDT Nurse Only Rheumatology [address] [place] [phone] [place], Nurse Rheum [address] [place] [phone] 09/26/2023 2:20 PM EDT Office Visit Nephrology [address] [place] [address] Josie Butler MD [address] [place] [address] 10/12/2023 3:00 PM EDT Office Visit Sleep Disorders Ctr [facility] [address] [place] [phone] Isabel Diallo DO [address] [place] [address] 01/23/2024 2:20 PM EST Office Visit Dermatology [address] [place] [address] Amber Orozco PA-C [address] [place] [address] [place] [address] Health Maintenance Due Date Last Done Comments COVID-19 Vaccine (#1) 1935 Depression Screening 05/30/2021 05/30/2020 DIG LEVEL FOR MEDICATION MONITORING YEARLY 03/08/2023 03/08/2022, 06/12/2021, 05/18/2021, Additional history exists Albumin/Creatinine Ratio 07/20/2023 023, 04/06/2021, 05/30/2020, Additional history exists DXA Scan 10/22/2023 10/21/2021, 0702/2018, 12/29/2015, Additional history exists CKD PHOS USE SMARTSET 62669 11/06/20230 09/2022, 04/14/2022, 10/06/2021, Additional history exists CKD HGB USE SMARTSET 17173 12/15/202312/14, 12/14/2022, 07/19/2022, Additional history exists DTaP,Tdap,and Td Vaccines (2 - Td or Tdap) 12/31/2029 01/01/2020 (Declined), 12/30/2009, 12/30/2009, Additional history exists Pneumococcal Vaccine: 65+ Years Completed 02/08/2017, 02/23/2006 VITAMIN D LEVEL ONCE IN A LIFETIME-USE SMARTSET# 46527 Completed 11/05/2022, 04/14/2022, 03/08/2022, Additional history exists [...] this encounter Medical Devices Implanted Type Area Adobe Maker Device Identifier Shelf Expiration Date Model / Serial / Lot Pacer Advisa Dr Dorsey - [id number] - [id number] Implanted:Qty: 1 on 04/11/2017 by Elda Patterson DO at OR [facility] Left: Chest [employer] 08/25/2018 [id number] / [id number] / documented as of this encounter Advance Directives Documents on File Type Date Recorded 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
--- OUTSIDE RECORDS SUMMARY | 2023-05-27 20:51 | External Medical Summary ---
Author Name Unknown Address Unknown Organization K01:LAB[place]ORY [facility] [place] [address] [facility] [address] [facility] [address] [facility] [address] Laboratory Report Ordering Provider Test Date Status ILDEFONSO ARREOLA 03/17/2023 13:41:23 Litzy l Observation Date Value Abnormality Reference (Units ) Status WBC, Total 03/17/2023 13:41:23 8.41 4.00-10.80 (K/uL) Final RBC 03/17/2023 13:41:23 3.79 3.85-5.15 (M/uL) Final Hemoglobin 03/17/2023 13:41:23 10.1 Below low normal 12.0-15.3 (g/dL) Final HCT 03/17/2023 13:41:23 36.3 36.0-45.2 (%) Final MCV 03/17/2023 13:41:23 95.8 81.5-97.5 (fL) Final MCH 03/17/2023 13:41:23 26.6 27.0-34.0 (pg) Final MCHC 03/17/2023 13:41:23 27.8 32.0-36.0 (g/dL) Final RDW 03/17/2023 13:41:23 18.0 11.5-15.5 (%) Final Platelets 03/17/2023 13:41:23 288 140-400 (K/uL) Final MPV 03/17/2023 13:41:23 9.1 6.6-11.1 (fL) Final Nucleated erythrocytes/100 leukocytes [Ratio] in Blood by Automated count 03/17/2023 13:41:23 0 <=0 (/100 WBCs) Final Performing Location LAB[facility] [facility] [place] [address] [facility] [address]
--- OUTSIDE RECORDS SUMMARY | 2023-05-27 20:51 | External Medical Summary | Summary of Care ---
Author Name Unknown Organization [facility] Address [address] [place] [address] Phone [phone] Care Team Providers Care Director Of Physical Education Name Role Phone Cathy Wilburn MD Primary Care Provide r Reason for Visit * Reason Onset Date Comments case management 03/01/2023 Med Request 03/01/2023 Encounter Details Date Type Department Care Team (Latest Contact Info) Description 03/01/2023 Register Repairer Telephone Care Coordination and Integration [address] [place] [address] Kirsten Diaz RN [address], [place] [id number] case management; Med Request Allergies Active Allergy Reactions Criticality [...] as of this encounter (statuses as of 03/01/2023) Medications Medication Sig Dispensed Refills Start Date [...] 2021 Active LORazepam 0.5 MG Oral Tablet (Ativan)Indication s:Anxiety Take 1 Tablet (0.5 mg) by mouth every 8 hours as needed for Agitation or Anxiety. Take 1 Tablet by mouth daily as needed for Anxiety. 40 Tablet 0 02/05/2022 Active DULoxetine HCl 30 MG Oral Capsule Delayed Release Particles (Cymbalta)Indicati ons:Moderate episode of recurrent major depressive disorder (HCC) Take 1 Capsule by mouth in the morning. 30 Capsule 04/23/2022 Active Cholecalciferol 25 MCG (1000 UT) Oral Capsule Take 1 Capsule by mouth as needed. 0 06/16/2022 Active Digoxin 125 MCG Oral Tablet (Lanoxin) take one tablet by mouth tuesday thru tuesday 30 Tablet 07/06/2022 Active Vitamin B-12 1000 MCG Oral Tablet (Cyanocobalamin)In dications:B12 deficiency TAKE 1 TABLET BY MOUTH ON TUESDAY, TUESDAY AND TUESDAY 30 Tablet 07/06/2022 Active Aspirin Low Dose 81 MG Oral Tablet Delayed Release (aspirin enteric coated) TAKE ONE TABLET IN THE MORNING 30 Tablet 07/06/2022 Active Atorvastatin Calcium 40 MG Oral Tablet (Lipitor)Indicatio ns:Atherosclerosis of [place] coronary artery of [place] heart without angina pectoris,Dyslipide martin, goal LDL below 70 Take 1 Tablet by mouth every evening. 30 Tablet 5 08/27/2022 Active Benzonatate 100 MG Oral CapsuleIndications :Bronchitis, complicated Take 1 Capsule by mouth 3 times a day as needed for Cough. 30 Capsule 1 09/01/2022 Active Furosemide 40 MG Oral Tablet (Lasix)Indications :Dependent edema Take 1 Tablet by mouth once a day on Tuesday, Tuesday, and Tuesday only. 60 Tablet 5 09/08/2022 Active Omeprazole 20 MG Oral Capsule Delayed Release (PriLOSEC)Indicati ons:Gastro-esophag eal reflux disease without esophagitis Take 1 Capsule by mouth in the morning. 90 Capsule 1 09/22/2022 Active Metoprolol Succinate ER 100 MG Oral Tablet Extended Release 24 Hour (toPROL XL)Indications:Par oxysmal atrial fibrillation (HCC) Take 1.5 Tablets by mouth in the morning and 1.5 Tablets before bedtime. 120 Tablet 5 10/18/2022 Active Enoxaparin Sodium 80 MG/0.8ML Injection Solution Prefilled Syringe (Lovenox)Indicatio ns:Paroxysmal atrial fibrillation (HCC),DVT, lower extremity, distal, acute, right (HCC),Pulmonary embolism and infarction (HCC) Inject 80 mg under the skin in the morning and 80 mg before bedtime. As instructed by the [facility]. 8 mL 0 11/24/2022 Active [...] 01/11/2023 Active predniSONE 20 MG Oral Tablet (Deltasone)Indicat ions:Acute right-sided low back pain without sciatica 1 tab 3 times a day for 3 days, then 1 tab 2 times a day for 3 days, then 1 tab daily for 3 days 18 Tablet 0 03/01/2023 Active predniSONE 20 MG Oral Tablet (Deltasone)Indicat ions:Acute right-sided low back pain without sciatica 1 tab 3 times a day for 3 days, then 1 tab 2 times a day for 3 days, then 1 tab daily for 3 days 18 Tablet 0 02/15/2023 4 Discontinue d(Refill) documented as of this encounter (statuses as of 03/01/2023) Active Problems Problem Noted Date Diagnosed Date [...] lumbosacral intervertebral disc 02/04/2009 Coronary atherosclerosis of [place] coronary luis ry 02/24/2005 Senile osteoporosis 05/14/2003 Carpal tunnel syndrome 04/23/2003 Moderate mitral regurgitation GENERAL OSTEOARTHROSIS Gastroesophageal reflux disease without esophagi tis Vitamin D deficiency Hyperparathyroidism, primary documented as of this encounter (statuses as of 03/01/2023) Resolved Problems Problem Noted Date Diagnosed Date [...] 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 LOC PRIM [id number] 02/14/200205/30 Other seborrheic keratosis 10/31/2001 0 06/06/2007 [...] as of this encounter (statuses as of 03/01/2023) Immunizations Name Administration Dates Next Due Pneumococcal [...] Telephone Encounter - Kirsten Diaz RN - 03/01/2023 2:10 PM EST Patient notified. Reports the pharmacy will deliver it to her. She will start after it is delivered. She says "thank you." * Telephone Encounter - Zeus Modi MD - 03/01/2023 2:00 PM EST Ordered * Telephone Encounter - Kirsten Diaz RN - 03/01/2023 12:55 PM EST THIS PATIENT IS NOT ACTIVE WITH CASE MANAGEMENT. Received voicemail from patient requesting call from . Called patient back: -Alert, oriented, pleasant but sad. Patient reports, Tuesday, she had a fall, at the [employer] in [place]. Was holding open the door, for friend with a walker to get through, and her hand slipped off the handle and she fell backwards onto her butt. She has a bruise over a hard lump on her one buttock and some back pain. Reports she has been sleeping in a recliner and she cannot get in/out of bed. Affecting her ambulation also, painful. Reports Dr Max had given her a short dose of prednisone in the recent past that really helped her - she is asking if someone would call her in a short dose of prednisone to help with her back discomfort. She is taking Tylenol "around the clock", and using a heating pad, and sat on ice once. Also reports her cat last night, and she is very sad. Reports she hasn't been doing well, and was going to call to see about taking her to the vet today - but she through the night. Pharmacy of choice - [facility]. Did you pend patient's preferred pharmacy and medication before forwarding?yes Pharmacy: [facility], [facility]-[address] [place] Pending Prescriptions: Disp Refills predniSONE 20 MG Oral Tablet (Deltasone) 18 Tab*0 Si tab 3 times a day for 3 days, then 1 tab 2 times a day for 3 days, then 1 tab daily for 3 days Last Visit: Visit date not found (in office), Visit date not found (telemedicine) Next Visit: Visit date not found If no future appointments scheduled, and last appointment is greater than a year ago, please schedule patient for a follow-up appointment Last date the medication was ordered: 02/15/23 Is this request for a controlled substance?No Urine Drug Screen:No results found. However, due to the size of the patient record, not all encounters were searched. Please check Results Review for a complete set of results. Patient Phone Numbers Labs: Lab Results Component Value Date/Time CREAT 1.1 (H) 12/14/2022 03:25 PM CREAT 1.0 01/30/2020 01:01 PM POTASSIUM 3.9 12/14/2022 03:25 PM POTASSIUM 3.8 01/30/2020 01:01 PM TSH 1.79 11/05/2022 10:41 AM TSH 1.92 10/31/2019 01:05 PM LDLCALC 45 07/07/2022 11:11 AM LDLCALC 82 10/31/2019 01:05 PM LDLDIRECT 81 07/09/2021 11:35 AM LDLDIRECT NOT APPLICABLE 10/31/2019 01:05 PM LDLDIRECT 74 10/12/2006 09:47 AM ALT 23 12/14/2022 03:25 PM ALT 26 10/31/2019 01:05 PM If agreeable, please sign..... Please advise..... documented in this encounter Plan of Treatment Upcoming Encounters Date Type Department Care Team (Late st Contact Info) Description 03/04/2023 8:20 AM EST Laboratory Lab Mobile Phlebotomy [facility] [address] [place] [address] [facility] [place] Mobile Home Draw [address] [place] [address] 03/07/2023 6:00 AM EST Anticoagulation Pharmacy Call Center [address] [place] [address] [facility] [address] [place] [address] 03/17/2023 1:00 PM EST Office Visit Family Medicine [address] [place] [phone] Cathy Wilburn MD [address] [place] [address] [place] [address] 03/31/2023 8:30 AM EST Office Visit Cardiology [address] [place] [address] Poli Zepeda PA-C [address] [place] [address] 04/25/2023 1:00 PM EST Office Visit Endocrinology, [place] [address] [place] [facility] [place] [address] Deana Vargas MD [address] [facility] [place] [address] 04/26/2023 2:00 PM EST Cardiac Studies Cardiology [address] [place] [address] [facility] [address] [facility] [place] [address] 06/08/2023 2:00 PM EDT Laboratory Laboratory [address] [place] [phone] [place], Lab [address] [place] [address] 06/15/2023 2:30 PM EDT Office Visit Hematology/Oncology [facility] [place] [address] [place] [address] Matt Faustin MD [address] [place] [address] 06/24/2023 2:30 PM EDT Nurse Only Rheumatology [address] [place] [phone] [place], Nurse Rheum [address] [place] [phone] 09/26/2023 2:20 PM EDT Office Visit Nephrology [address] [place] [address] Josie Butler MD [address] [place] [address] 10/12/2023 3:00 PM EDT Office Visit Sleep Disorders Ctr [facility] [address] [place] [phone] Isabel Diallo, [address] [place] [address] 01/23/2024 2:20 PM EST Office Visit Dermatology [address] [place] [address] Amber Orozco PA-C [address] [place] [address] [place] [address] Health Maintenance Due Date Last Done Comments COVID-19 Vaccine (#1) 1935 Depression Screening 05/30/2021 05/30/2020 DIG LEVEL FOR MEDICATION MONITORING YEARLY 03/08/2023 03/08/2022, 06/12/2021, 05/18/2021, Additional history exists Albumin/Creatinine Ratio 07/20/2023 023, 04/06/2021, 05/30/2020, Additional history exists DXA Scan 10/22/2023 10/21/2021, 0702/2018, 12/29/2015, Additional history exists CKD PHOS USE SMARTSET 47181 11/06/20230 09/2022, 04/14/2022, 10/06/2021, Additional history exists CKD HGB USE SMARTSET 65193 12/15/202312/14, 12/14/2022, 07/19/2022, Additional history exists DTaP,Tdap,and Td Vaccines (2 - Td or Tdap) 12/31/2029 01/01/2020 (Declined), 12/30/2009, 12/30/2009, Additional history exists Pneumococcal Vaccine: 65+ Years Completed 02/08/2017, 02/23/2006 VITAMIN D LEVEL ONCE IN A LIFETIME-USE SMARTSET# [id number] Completed 11/05/2022, 04/14/2022, 03/08/2022, Additional history exists [...] this encounter Medical Devices Implanted Type Area Pilot Fuel Engineer Device Identifier Shelf Expiration Date Model / Serial / Lot Pacer Advisa Dr Dorsey - [id number] - [id number] Implanted:Qty: 1 on 04/11/2017 by Elda Patterson DO at OR [facility] Left: Chest [employer] 08/25/2018 [id number] / [id number] / documented as of this encounter Visit Diagnoses Diagnosis Acute right-sided low back pain without sciatica documented in this encounter Advance Directives Documents on File Type Date Recorded 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
--- OUTSIDE RECORDS SUMMARY | 2023-05-27 20:51 | External Medical Summary ---
Author Name Unknown Address Unknown Organization K01:LABORATORY [facility] [place] - [address] [place] [address] Laboratory Report Ordering Provider Test Date Status ILDEFONSO ARREOLA 03/17/2023 13:41:23 Litzy l Observation Date Value Abnormality Reference (Units ) Status BUN 03/17/2023 13:41:23 18 6-20 (mg/dL) Final Creatinine 03/17/2023 13:41:23 1.2 Above high normal 0.5-1.0 (mg/dL) Final Glomerular filtration rate/1.73 sq M.predicted [Volume Rate/Area] in Serum, Plasma or Blood by Creatinine-based formula (CKD-EPI) 03/17/2023 13:41:23 46 Below low normal >=60 (mL/min) Final eGFR is calculated based on the CKD-EPI 2020 equation SODIUM 03/17/2023 13:41:23 140 135-146 (m mol/L) Final Potassium 03/17/2023 13:41:23 4.8 3.5-5.1 (m mol/L) Final Cl 03/17/2023 13:41:23 106 98-107 (mm ol/L) Final CO2 03/17/2023 13:41:23 25 22-32 (mmo l/L) Final Anion gap 03/17/2023 13:41:23 9 7-15 (mmol /L) Final Glucose 03/17/2023 13:41:23 105 70-120 (mg /dL) Final Calcium 03/17/2023 13:41:23 8.5 8.4-10.2 ( mg/dL) Final Performing Location LABORATORY [facility] [place] - [address] [place] [address]
--- OUTSIDE RECORDS SUMMARY | 2023-05-27 20:51 | External Medical Summary ---
Author Name Unknown Address Unknown Organization K01:LABORATORY [facility] - [address] [facility] [place] [address] Laboratory Report Ordering Provider Test Date Status ILDEFONSO ARREOLA 03/17/2023 13:41:23 Litzy l Observation Date Value Abnormality Reference (Units ) Status Triglyceride 03/17/2023 13:41:23 156 <=174 ( mg/dL) Final Triglyceride Reference Range s (mg/dL):
<150 Acceptable
150-174 Borderline high
175-499 High
>=500 Very high Cholesterol 03/17/2023 13:41:23 128 <200 (mg /dL) Final Total Cholesterol Reference Ranges (mg/dL):
<200 Desirable
200-239 Borderline high
>=240 High HDL 03/17/2023 13:41:23 37 Below low normal >49 (mg/dL) Final HDL Cholesterol Reference Ra nges (mg/dL):
>=60 High (Desirable)
<50 Low (Undesirable) For Females
<40 Low (Undesirable) For Males NON-HDL CHOLESTEROL 03/17/2023 13:41:23 91 <=159 (mg/dL) Final Non-HDL Cholesterol Referenc e Range (mg/dL):
<100 Target level for high risk ASCVD patient
<130 Optimal for general population
130-159 Near optimal for general population
160-189 Borderline High
190-219 High
>=220 Very High LDL, (calculated) 03/17/2023 13:41:23 60 <= 129 (mg/dL) Final LDL Cholesterol Reference Ra nges (mg/dL):
<70 Target level for high risk ASCVD patient
<100 Optimal for general population
100-129 Near optimal for general population
130-159 Borderline high
160-189 High
>=190 Very high Performing Location LABORATORY [facility] [place] - [address] [facility] [address]
--- OUTSIDE RECORDS SUMMARY | 2023-05-27 20:51 | External Medical Summary ---
Author Name Unknown Address Unknown Organization K01:LABORATORY [facility] [place] - [address] [place] [address] Laboratory Report Ordering Provider Test Date Status GARCÍA ARREOLABrianna 03/17/2023 13:41:23 Litzy l Observation Date Value Abnormality Reference (Units ) Status TSH 03/17/2023 13:41:23 1.65 0.27-4.20 (uIU/mL) Final Performing Location LABORATORY [facility] [place] - [address] [place] [address]
--- OUTSIDE RECORDS SUMMARY | 2023-05-27 20:51 | External Medical Summary | Summary of Care ---
Author Name Unknown Organization [facility] Address [address] [place] [address] Phone [phone] Care Team Providers Care Cooker Pie Filling Name Role Phone Cathy Wilburn MD Primary Care Provide r Reason for Visit * Reason Comments Re-Check Encounter Details Date Type Department Care Team (Late st Contact Info) Description 03/17/2023 1:00 PM EST Office Visit Family Medicine [address] [place] [address] Cathy Wilburn MD [address] [place] [address] [place] [address] Dyslipidemia, goal LDL below 70*; Hypertensive heart and kidney disease with chronic diastolic congestive heart failure and stage 3b chronic kidney disease (HCC); Dependent edema; Paroxysmal atrial fibrillation (HCC); History of colon cancer; Status post right hemicolectomy; Mixed stress and urge urinary incontinence; Acute bilateral low back pain without sciatica; Moderate episode of recurrent major depressive disorder ([facility]); Hyperparathyroidism (HCC); Stage 3 chronic kidney disease, unspecified whether stage 3a or 3b CKD (HCC); Anxiety state; Essential (primary) hypertension; Atherosclerosis of [place] coronary artery without angina pectoris, unspecified whether [place] or transplanted heart; Thyroid nodule; Multiple thyroid nodules; Senile osteoporosis Allergies Active Allergy Reactions Criticality Noted Date [...] 2 Active LORazepam 0.5 MG Oral Tablet (Ativan)Indicati ons:Anxiety Take 1 Tablet (0.5 mg) by mouth every 8 hours as needed for Agitation or Anxiety. Take 1 Tablet by mouth daily as needed for Anxiety. 40 Tablet 0 2 Active DULoxetine HCl 30 MG Oral Capsule Delayed Release Particles (Cymbalta)Indica tions:Moderate episode of recurrent major depressive disorder (HCC) Take 1 Capsule by mouth in the morning. 30 Capsule 11 3 Active Cholecalciferol 25 MCG (1000 UT) Oral Capsule Take 1 Capsule by mouth as needed. 0 3 Active Digoxin 125 MCG Oral Tablet (Lanoxin) take one tablet by mouth tuesday thru tuesday 30 Tablet 3 Active Vitamin B-12 1000 MCG Oral Tablet (Cyanocobalamin) Indications:B12 deficiency TAKE 1 TABLET BY MOUTH ON TUESDAY, TUESDAY AND TUESDAY 30 Tablet 11 3 Active Aspirin Low Dose 81 MG Oral Tablet Delayed Release (aspirin enteric coated) TAKE ONE TABLET IN THE MORNING 30 Tablet 11 3 Active Benzonatate 100 MG Oral CapsuleIndicatio ns:Bronchitis, complicated Take 1 Capsule by mouth 3 times a day as needed for Cough. 30 Capsule 1 3 Active Metoprolol Succinate ER 100 MG Oral Tablet Extended Release 24 Hour (toPROL XL)Indications:P aroxysmal atrial fibrillation (HCC) Take 1.5 Tablets by mouth in the morning and 1.5 Tablets before bedtime. 120 Tablet 5 3 Active Warfarin Sodium 2 MG Oral Tablet (Jantoven) Take 1-2 Tablets by mouth every evening. 180 Tablet 1 3 Active amLODIPine Besylate 5 MG Oral Tablet (Norvasc) TAKE ONE TABLET IN THE MORNING 90 Tablet 0 3 Active Losartan Potassium 100 MG Oral Tablet (Cozaar) TAKE ONE TABLET IN THE MORNING 90 Tablet 0 3 Active Atorvastatin Calcium 40 MG Oral Tablet (Lipitor)Indicat ions:Atheroscler osis of [place] coronary artery of [place] heart without angina pectoris,Dyslipi demia, goal LDL below 70 TAKE ONE TABLET AT BEDTIME 90 Tablet 0 4 Active Omeprazole 20 MG Oral Capsule Delayed Release (PriLOSEC)Indica tions:Gastro-eso phageal reflux disease without esophagitis TAKE ONE CAPSULE BY MOUTH IN THE MORNING 90 Capsule 1 4 Active Furosemide 40 MG Oral Tablet (Lasix)Indicatio ns:Dependent edema Take 0.5 Tablets by mouth once a day on Tuesday, Tuesday, and Tuesday only. 0 4 Active Bladder Control Pads Ex AbsorbIndication s:Mixed stress and urge urinary incontinence Daily use of urinary incontinence 72 Each 11 4 Active Diclofenac Sodium 1 % External Gel (Voltaren)Indica tions:Acute bilateral low back pain without sciatica Apply to the affected area daily 350 g 2 4 Active Furosemide 40 MG Oral Tablet (Lasix)Indicatio ns:Dependent edema Take 1 Tablet by mouth once a day on Tuesday, Tuesday, and Tuesday only. 60 Tablet 5 3 03/17/19 24 Discontinued(Re fill) Enoxaparin Sodium 80 MG/0.8ML Injection Solution Prefilled Syringe (Lovenox)Indicat ions:Paroxysmal atrial fibrillation (HCC),DVT, lower extremity, distal, acute, right (HCC),Pulmonary embolism and infarction (HCC) Inject 80 mg under the skin in the morning and 80 mg before bedtime. As instructed by the [facility]. 8 mL 0 3 03/17/19 24 Discontinued predniSONE 20 MG Oral Tablet (Deltasone)Indic ations:Acute right-sided low back pain without sciatica 1 tab 3 times a day for 3 days, then 1 tab 2 times a day for 3 days, then 1 tab daily for 3 days 18 Tablet 0 4 03/17/19 24 Discontinued documented as of this encounter [...] lumbosacral intervertebral disc 02/04/2009 Coronary atherosclerosis of [place] coronary luis ry 02/24/2005 Senile osteoporosis 05/14/2003 [...] Overview: Modified per HTN Taxonomy. Hyperparathyroidism 07/02/2008 08/04/20 09 Overview: RLP Parathyroid adenoma resection Fam Smith, DO July 02, 2008 ICD-10 update of inactive term Slow transit constipation 02/09/2008 Postmenopausal atrophic vaginitis 02/09/2008 07/15/2017 Hypercalcemia 07/14/2005 05/22/2007 PVC (premature ventricular contraction) 05/26/2005 04/21/2017 Ischemic cardiomyopathy 02/25/200507/29 ADVANCE DIRECTIVE INFORMATION 02/24/2005 02/08/2017 Overview: No, Advance Directive brochure given to patient at prior appointment. OSTEOARTHROS NOS-L-LEG 05/26/200406/20 TENOSYNOV HAND-WRIST NEC 04/23/2003 CERVICAL 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 LOC PRIM DODAATOZ-L-NCD 02/14/200205/30 Other seborrheic keratosis 10/31/2001 0 06/06/2007 [...] urethral stricture 06/06/2007 History of skin cancer 12/12 /2017 Tachycardia 05/22/2007 Mixed dyslipidemia 9 Overview: Per [...] Sign Reading Time Taken Comments Blood Pressure 124/72 03/17/2023 1:11 PM EST Pulse 74 03/17/2023 1:11 PM EST Temperature 36.2 C (97.1 F) 03/17/2023 1:11 PM ES T Respiratory Rate - - Oxygen Saturation 93% 03/17/2023 1:11 PM EST Inhaled Oxygen Concentration - - Weight 83.9 kg (185 lb) 03/17/2023 1:11 PM EST Height - - Body Mass Index 28.98 12/03/2022 5:04 PM EDT documented in this [...] as of this encounter Progress Notes * Cathy Wilburn MD - 03/17/2023 1:06 PM EST Subjective: HPI: Miranda Coe is a 87 year old female with hx of HLD, MARTI on CPAP, Afib, Tachy- kraig syndrome s/p pacemaker, CAD s/p PCI, HFpEF, HTN, CKD III, GERD, anxiety, colon Cancer s/p hemicolectomy, Hyperparathyroidism, hx of RLE DVT seen for Pt had another fall 1 month - mechanical fall ---- denied any head trauma or LOC - hit the gluteal area - still having lower back pain --- prednisone helped Afib on coumadin: - on Metoprolol XL 150mg BID, lasix 40mg ,,, digoxcin 125 mcg daily (-) ---- per pt she is taking lasix 20mg ,, ---- denied any worsening leg swelling or SOB Pt uses bladder pads due to urinary incontence HTN with CKD III: - Bp wnl Patient Active Problem List Diagnosis Code Carpal tunnel syndrome G56.00 Senile osteoporosis M81.0 Coronary atherosclerosis of [place] coronary artery I25.10 Moderate mitral regurgitation I34.0 GENERAL OSTEOARTHROSIS M15.9 Gastroesophageal reflux disease without esophagitis K21.9 Vitamin D deficiency E55.9 Hyperparathyroidism, primary (HCC) E21.0 Degeneration of lumbosacral intervertebral disc M51.37 Anxiety state F41.1 Dyslipidemia, goal LDL below 70 E78.5 Venous insufficiency I87.2 Varicose vein of leg I83.90 Allergic rhinitis J30.9 Dyslipidemia, goal LDL below 100 E78.5 Chronic diastolic heart failure (HCC) I50.32 Hx of nonmelanoma skin cancer Z85.828 Multiple thyroid nodules E04.2 Encounter for long-term (current) use of high-risk medication Z79.899 Cardiac pacemaker in situ Z95.0 Paroxysmal atrial fibrillation (HCC) I48.0 Family history of von Willebrand disease Z83.2 B12 deficiency E53.8 Primary osteoarthritis of both knees M17.0 MARTI (obstructive sleep apnea) G47.33 Pernicious anemia D51.0 History of falling Z91.81 Peripheral edema R60.9 Thrombophlebitis of superficial veins of left lower extremity I80.02 Mixed stress and urge urinary incontinence N39.46 Moderate episode of recurrent major depressive disorder (HCC) F33.1 Iron deficiency anemia D50.9 History of unexplained bleeding Z87.898 Chronic kidney disease, stage 3b (HCC) N18.32 Status post right hemicolectomy Z90.49 LVH (left ventricular hypertrophy) I51.7 Nonischemic cardiomyopathy (HCC) I42.8 History of colon cancer Z85.038 Tachy-kraig syndrome (HCC) I49.5 History of pulmonary embolism Z86.711 History of DVT (deep vein thrombosis) Z86.718 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 Bladder Control Pads Ex Absorb Daily use of urinary incontinence 72 Each 11 Diclofenac Sodium 1 % External Gel (Voltaren) Apply to the affected area daily 350 g 2 No current facility-administered medications for this visit. Past Medical History: Diagnosis Date Acute pulmonary embolism ([facility]) 07/17/2021 Allergic rhinitis 10/06/2012 Anxiety state 05/02/2009 Asthma, severity to be determined Atrial premature beats Benign neoplasm of colon 1991 hyperplastic polyp Benign neoplasm of skin Benign paroxysmal vertigo Cardiac pacemaker in situ 04/19/2017 Coronary atherosclerosis of [place] coronary artery 02/01 Degeneration of lumbosacral intervertebral disc 02/04/2009 Depressive disorder, not elsewhere classified 05/02/2009 Diffuse cystic mastopathy Diffuse cystic mastopathy DVT, lower extremity, distal, acute, right ([facility]) 06/03/2021 Dyslipidemia, goal LDL below 100 05/28/2014 Dyslipidemia, goal LDL below 70 10/09/2009 Esophageal reflux Essential hypertension with goal blood pressure less than 140/90 11/24/2015 Ganglion of tendon left foot Generalized osteoarthritis HTN, goal below 130/80 02/04/2009 HTN, goal below 140/90 05/28/2014 Hypercalcemia 11/04 Hyperparathyroidism, primary ([facility]) Hyperparathyroidism, unspecified ([facility]) 07/02/2008 RLP Parathyroid adenoma resection Fam Smith, July 02, 2008 Hypertension goal BP (blood pressure) < 140/80 02/25/2014 Ischemic cardiomyopathy 02/01 LVEF 40 % on cath Kidney disease, chronic, stage III (GFR 30-59 ml/min) ([facility]) 04/08/2015 LAE (left atrial enlargement) 06/03/2021 Duplicate Localized, primary osteoarthritis of hand 02/04/2011 Malignant neoplasm of ascending colon ([facility]) 05/12/2021 S/P colectomy-No current treatment Menopause Mitral [...] site unspecified 1990 bcc/forehead removed by dr schulzt Other premature beats 05/26/2005 Other seborrheic keratosis [...] HEART THRU SKIN 02/18/2005 Dr. Gunter - [facility] CHEST 1 VIEW 03/19/2001 PAH--the [...] - invasive adenocarcinoma, adenomatous polyps, diverticulosis / [facility] COLONOSCOPY, DIAGNOSTIC (RECTUM) N/A 06/24/2022 multiple polyps/few angiodysplastic lesions ascending colon/hemorrhoids/biopsies show adenomatous polyps/recall 6 months/[place] COLONOSCOPY, DIAGNOSTIC (RECTUM) N/A 12/09/2022 poor prep/biopsies normal/[place]oscopy[place] COLONOSCOPY, SURGERY REFERRAL OP 07/30/2003 Dr. Schultz - normal EGD, FLEXIBLE, DIAGNOSTIC 01/15/2021 normal bx / [facility] EXPLORE PARATHYROID GLANDS 07/02/2008 PARATHYROIDECTOMY performed by FAM SMITH at OR [facility] INFORMATION FACIAL FX INFORMATION L hand tumor INSERT/REPLACE PACEMAKER,ATRIAL/VENTRICULAR Left 04/11/2017 NEW DDD PACEMAKER IMPLANT performed by Elda Patterson, DO at OR [facility] INSERTION OF LENS PROSTHESIS 07/05/2012 right eye, dr ortega KNEE ARTHROSCOPY, DIAGNOSTIC 01/28/1994 left knee LAPAROSCOPIC COLECTOMY PARTIAL WITH ANASTOMOSIS 04/27/2021 right hemicolectomy, Dr. Salamanca [facility] CARDIAC THALLIUM STRESS, OUTSIDE FILMS 01/28/1998 negative PARTIAL REMOVAL OF COLON Right 04/27/2021 right hemicolectomy with anastamosis for ascending colon cancer--Dr. Ashok Salamanca PERC STENT/CHEST VERTEBRAL ARTERY, INITIAL 02/18/2005 LAD SLEEP SCIENTIST VEIN LIGATION W/ GRAFT, 1 LEG LLE REMOVE TONSILS & ADENOIDS, AGE 12+ SIGMOIDOSCOPY, DIAGNOSTIC 07/06/93 & 10/06/98 Dr. Schultz TOTAL ABD HYSTERECTOMY W/WO REMOVAL OF TUBE(S) 30 yo prolapse - has ovaries in UPPER GI ENDOSCOPY 2020 normal stomach, biopsied. normal examined duodenum, normal examined jejunem VASC RENAL VASCULAR SCAN-COMPLETE 06/29/2007 no renal artery stenosis Review of patient's allergies indicates: Allergen Reactions [...] Red Dye Hives Erythromycin Nausea/vomiting Upset stomach Family History Problem Relation Age of Onset Diabetes Brother Cancer Mother lymphoma Diabetes Sister Arthritis Son rheumatic fever, Osteo Arthritis Other (Other) Son ruptured diaphragm as infant, lung collapsed Diabetes Son borderline Social History Tobacco Use Smoking status: Never Smokeless tobacco: Never Substance Use Topics Alcohol use: Not Currently Vaping/E-Cigarette Use Vaping/E-Cigarette Use Never User Vaping/E-Cigarette Substances Vaping/E-Cigarette Devices ROS: -Per HPI OBJECTIVE: BP 124/72 | Pulse 74 | Temp 36.2 C (97.1 F) (Tympanic) | Wt 83.9 kg (185 lb) | SpO2 93% | BMI 28.98 kg/m | BSA 1.99 m PHYSICAL EXAM: Vitals are reviewed General:. NAD, well developed HEENT:. Normal Conjunctiva, EOMI Cardiac:in sinus rhythm, Normal S1, S2, no murmur Lungs:. CTA, no wheezing or crackles MSK: moderate LE pitting edema, no TTP of the L spine, ttp of the b/l gluteal area Psych:. AAOx3, normal affect ASSESSMENT/PLAN: Advised the pt to continue warm compress for back pain - recommended topical pain reliever - not suspecting any fracture at this time Dyslipidemia, goal LDL below 70 (Primary) - LIPID PANEL WITHOUT DIRECT LDL Hypertensive heart and kidney disease with chronic diastolic congestive heart failure and stage 3b chronic kidney disease (HCC) - BASIC METABOLIC PANEL - CBC WITH WBC DIFFERENTIAL Dependent edema - on lasix 20mg M,W,F Paroxysmal atrial fibrillation (HCC) - DIGOXIN LEVEL History of colon cancer Status post right hemicolectomy - currently asymptomatic Mixed stress and urge urinary incontinence - Bladder Control Pads Ex Absorb; Daily use of urinary incontinence Acute bilateral low back pain without sciatica - Diclofenac Sodium 1 % External Gel (Voltaren); Apply to the affected area daily Moderate episode of recurrent major depressive disorder (HCC) - stable on cymbalta Hyperparathyroidism (HCC) - will continue to monitor Ca++ Stage 3 chronic kidney disease, unspecified whether stage 3a or 3b CKD (HCC) - BMP today Anxiety state - stable on cymbalta Essential (primary) hypertension - BP wnl Atherosclerosis of [place] coronary artery without angina pectoris, unspecified whether [place] or transplanted heart - on statin and aspirin Thyroid nodule - TSH WITH FREE T4 IF INDICATED Senile osteoporosis - on prolia Follow Up: Return in about 6 months (around 09/15/2023). I spent a total of 40-54 minutes (exact time 42 mins) on the date of service in preparation, delivery, and documentation of the care provided to Miranda Coe excluding any time spent in the performance of separately billed services.Anne MD Family medicine[address] [address] documented in this encounter Nursing Notes * Pau Mccurdy LPN - 03/17/2023 1:10 PM EST 6 month recheck Fell around Thanksgiving. Went to ER. Saw Dr. Max in Jan. Fell again not long ago & fell onto bottom. Back has been hurting very badly since then. Given more Prednisone but back still hurts terrible. documented in this encounter Plan of Treatment Upcoming Encounters Date Type Department Care Team (Late st Contact Info) Description 03/31/2023 8:30 AM EST Office Visit Cardiology [address] [place] [address] Poli Zepeda PA-C [address] [place] [address] 04/01/2023 8:20 AM EST Laboratory Lab Mobile Phlebotomy [facility] [address] [facility] [place] [address] [facility], [facility] Mobile Home Draw [address] [place] [facility] [place] [address] 04/04/2023 6:00 AM EST Anticoagulation Pharmacy Call Center [address] [place] [address] [facility] [address] [facility] [address] 04/25/2023 1:00 PM EST Office Visit [facility] [place] [address] [facility] [place] [address] Deana Vargas MD [address] [place] [address] 04/26/2023 2:00 PM EST Cardiac Studies Cardiology [address] [place] [address] Lucia Jimenezs Hernandez [address] [place] [address] 06/08/2023 2:00 PM EDT Laboratory Laboratory [address] [place] [phone] [place] [address] [place] [address] 06/15/2023 2:30 PM EDT Office Visit Hematology/Oncology [facility] [address] [place] [address] Matt Faustin MD [address] [place] [address] 06/24/2023 2:30 PM EDT Nurse Only Rheumatology [address] [place] [phone] [place], Nurse Rheum [address] [place] [phone] 09/26/2023 2:20 PM EDT Office Visit Nephrology [address] [place] [address] Josie Butler MD [address] [place] [address] 10/12/2023 3:00 PM EDT Office Visit Sleep Disorders Ctr [facility] [address] [place] [phone] Isabel Diallo DO [address] [place] [address] 01/23/2024 2:20 PM EST Office Visit Dermatology [address] [place] [address] Amber Orozco PA-C [address] [place] [address] [place] [address] Pending Results Name Type Priority Associated Diagnoses Date /Time BASIC METABOLIC PANEL Lab Routine Hypertensive heart and kidney disease with chronic diastolic congestive heart failure and stage 3b chronic kidney disease (HCC) 03/17/2023 1:41 PM EST CBC WITH WBC DIFFERENTIAL Lab Routine Hypertensive heart and kidney disease with chronic diastolic congestive heart failure and stage 3b chronic kidney disease (HCC) 03/17/2023 1:41 PM EST DIGOXIN LEVEL Lab Routine Paroxysmal atrial fibrillation (HCC) 03/17/2023 1:41 PM EST LIPID PANEL WITHOUT DIRECT LDL Lab Routine Dyslipidemia, goal LDL below 70 03/17/2023 1:41 PM EST TSH WITH FREE T4 IF INDICATED Lab Routine Thyroid nodule 03/17/2023 1:41 PM EST CBC Lab Routine Hypertensive heart and kidney disease with chronic diastolic congestive heart failure and stage 3b chronic kidney disease (HCC) 03/17/2023 1:41 PM EST DIFFERENTIAL, AUTOMATED Lab Routine Hypertensive heart and kidney disease with chronic diastolic congestive heart failure and stage 3b chronic kidney disease (HCC) 03/17/2023 1:41 PM EST Health Maintenance Due Date Last Done Comments COVID-19 Vaccine (#1) 1935 Depression Screening 05/30/2021 05/30/2020 DIG LEVEL FOR MEDICATION MONITORING YEARLY 03/08/2023 03/08/2022, 06/12/2021, 05/18/2021, Additional history exists Albumin/Creatinine Ratio 07/20/202307/19/2 023, 04/06/2021, 05/30/2020, Additional history exists DXA Scan 10/22/2023 10/21/2021, 070 02/2018, 12/29/2015, Additional history exists CKD PHOS USE SMARTSET 65937 11/06/2023 090 09/2022, 04/14/2022, 10/06/2021, Additional history exists CKD HGB USE SMARTSET 46705 12/15/202312/14, 12/14/2022, 07/19/2022, Additional history exists DTaP,Tdap,and Td Vaccines (2 - Td or Tdap) 12/31/2029 01/01/2020 (Declined), 12/30/2009, 12/30/2009, Additional history exists Pneumococcal Vaccine: 65+ Years Completed 02/08/2017, 02/23/2006 VITAMIN D LEVEL ONCE IN A LIFETIME-USE SMARTSET# [id number] Completed 11/05/2022, 04/14/2022, 03/08/2022, Additional history exists [...] this encounter Medical Devices Implanted Type Area Air Brush Artist Device Identifier Shelf Expiration Date Model / Serial / Lot Pacer Advisa Dr Dorsey - [id number] - [id number] Implanted:Qty: 1 on 04/11/2017 by Elda Patterson DO at OR [facility] Left: [employer] 08/25/2018 [id number] / [id number] / documented as of this encounter Visit Diagnoses Diagnosis Dyslipidemia, goal LDL below 70- Primary Other and unspecified hyperlipidemia Hypertensive heart and kidney disease with chronic diastolic congestive heart failure and stage 3b chronic kidney disease (HCC) Dependent edema Edema Paroxysmal atrial fibrillation (HCC) Atrial fibrillation History of colon cancer Personal history of malignant neoplasm of large intestine Status post right hemicolectomy Other postprocedural status Mixed stress and urge urinary incontinence Mixed incontinence urge and stress (male)(female) Acute bilateral low back pain without sciatica Moderate episode of recurrent major depressive disorder (HCC) Hyperparathyroidism (HCC) Hyperparathyroidism, unspecified Stage 3 chronic kidney disease, unspecified whether stage 3a or 3b CKD (HCC) Anxiety state Anxiety state, unspecified Essential (primary) hypertension Unspecified essential hypertension Atherosclerosis of [place] coronary artery without angina pectoris, unspecified whether [place] or transplanted heart Thyroid nodule Nontoxic uninodular goiter Multiple thyroid nodules Nontoxic multinodular goiter Senile osteoporosis documented in this encounter Advance Directives Documents on File Type Date Recorded Patient Linoleum Installer Expl anation POLST 01/05/2021 [place] [facility] FOR LIFE-SUSTAINING TREATMENT Latest Code Status on File Code Status Date Activated Date Inactivated Comments Full Code 07/02/2008 9:35 AM 07/03/2008 5:40 PM Care Teams Cooker Pie Filling Relationship Specialty Start Date End Date Cathy Wilburn MD [address] [place] [address] [place] [phone] PCP - General Family Medicine 12/03/22 documented as of this encounter"
--- OUTSIDE RECORDS SUMMARY | 2023-05-27 20:51 | External Medical Summary | Summary of Care ---
Author Name Unknown Organization [facility] Address [address] [place] [address] Phone [phone] Care Team Providers Care Leather Splitter Name Role Phone Cathy Fregoso MD Primary Care Provide r Reason for Visit * Reason Comments eRx-Medication Refill Encounter Details Date Type Department Care Team (Late st Contact Info) Description 03/04/2023 Refill Family Medicine [address] [phone] Erlinda Meneses MD [address] [place] [address] [place] [id number] Gastro-esophageal reflux disease without esophagitis Allergies Active Allergy Reactions Criticality Noted Date [...] as of this encounter (statuses as of 03/07/2023) Medications Medication Sig Dispensed Refills Start Date [...] 09/01/2022 Active Furosemide 40 MG Oral Tablet (Lasix)Indication s:Dependent edema Take 1 Tablet by mouth once a day on Tuesday, Tuesday, and Tuesday only. 60 Tablet 09/08/2022 Active Metoprolol Succinate ER 100 MG Oral Tablet Extended Release 24 Hour (toPROL XL)Indications:Pa roxysmal atrial fibrillation (HCC) Take 1.5 Tablets by mouth in the morning and 1.5 Tablets before bedtime. 120 Tablet 5 10/18/2022 Active Enoxaparin Sodium 80 MG/0.8ML Injection Solution Prefilled Syringe (Lovenox)Indicati ons:Paroxysmal atrial fibrillation (HCC),DVT, lower extremity, distal, acute, right (HCC),Pulmonary embolism and infarction (HCC) Inject 80 mg under the skin in the morning and 80 mg before bedtime. As instructed by the [facility]. 8 mL 0 11/24/2022 Active [...] 01/11/2023 Active predniSONE 20 MG Oral Tablet (Deltasone)Indica tions:Acute right-sided low back pain without sciatica 1 tab 3 times a day for 3 days, then 1 tab 2 times a day for 3 days, then 1 tab daily for 3 days 18 Tablet 0 03/01/2023 Active Atorvastatin Calcium 40 MG Oral Tablet (Lipitor)Indicati ons:Atheroscleros is of [place] coronary artery of [place] heart without angina pectoris,Dyslipid emia, goal LDL below 70 TAKE ONE TABLET AT BEDTIME 90 Tablet 0 03/04/2023 Active Omeprazole 20 MG Oral Capsule Delayed Release (PriLOSEC)Indicat ions:Gastro-esoph ageal reflux disease without esophagitis TAKE ONE CAPSULE BY MOUTH IN THE MORNING 90 Capsule 1 03/07/2023 Active Omeprazole 20 MG Oral Capsule Delayed Release (PriLOSEC)Indicat ions:Gastro-esoph ageal reflux disease without esophagitis Take 1 Capsule by mouth in the morning. 90 Capsule 1 09/22/2022 4 Discontinued documented as of this encounter (statuses as of 03/07/2023) Active Problems Problem Noted Date Diagnosed Date [...] as of this encounter (statuses as of 03/07/2023) Resolved Problems Problem Noted Date Diagnosed Date [...] 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 LOC PRIM [id number] 02/14/2002 04/2 04/2007 Other seborrheic keratosis 10/31/2001 [...] as of this encounter (statuses as of 03/07/2023) Immunizations Name Administration Dates Next Due Pneumococcal [...] encounter Miscellaneous Notes * Telephone Encounter - Caesar Dykes RPh - 03/07/2023 8:30 AM EST Signed Prescriptions: Disp Refills Omeprazole 20 MG Oral Capsule Delayed Rele*90 Cap*1 Sig: TAKE ONE CAPSULE BY MOUTH IN THE MORNINGAuthorizing Provider: Rafal FREGOSO User: CAESAR DYKES documented in this encounter Plan of Treatment Upcoming Encounters Date Type Department Care Team (Late st Contact Info) Description 03/17/2023 1:00 PM EST Office Visit Family Medicine [address] [phone] Cathy Fregoso MD [address] [place] [address] [place] [address] 03/31/2023 8:30 AM EST Office Visit Cardiology [address] [place] [address] Poli Zepeda PA-C [address] [place] [address] 04/04/2023 6:00 AM EST Anticoagulation Pharmacy Call Center [facility] [phone] [place] [address] [facility] 58 60 [facility] [place] [address] 04/25/2023 1:00 PM EST Office Visit Endocrinology, [place] [address], [place] [phone] Deana Vargas MD [address] [place] [address] 04/26/2023 2:00 PM EST Cardiac Studies Cardiology [address] [place] [address] Lucia Jimenez [facility] [place] [address] 06/08/2023 2:00 PM EDT Laboratory Laboratory [address] [place] [phone] [facility] [address] [place] [address] 06/15/2023 2:30 PM EDT Office Visit Hematology/Oncology State James Gardiner [address] [place] [address] Matt Faustin MD [address] [place] [address] 06/24/2023 2:30 PM EDT Nurse Only Rheumatology [address] [place] [phone] [place], Nurse Rheum [address] [place] [phone] 09/26/2023 2:20 PM EDT Office Visit Nephrology [address] [place] [address] Josie Butler MD [address] [place] [address] 10/12/2023 3:00 PM EDT Office Visit Sleep Disorders Ctr [facility] [address] [place] [phone] Isabel Diallo DO [address] [place] [address] 01/23/2024 2:20 PM EST Office Visit Dermatology [address] [place] [address] Amber Orozco PA-C [address] [place] [address] [place] [address] Health Maintenance Due Date Last Done Comments COVID-19 Vaccine (#1) 1935 Depression Screening 05/30/2021 05/30/2020 DIG LEVEL FOR MEDICATION MONITORING YEARLY 03/08/2023 03/08/2022, 06/12/2021, 05/18/2021, Additional history exists Albumin/Creatinine Ratio 07/20/2023 023, 04/06/2021, 05/30/2020, Additional history exists DXA Scan 10/22/2023 10/21/2021, 0702/2018, 12/29/2015, Additional history exists CKD PHOS USE SMARTSET 81305 11/06/2023 09/0 09/2022, 04/14/2022, 10/06/2021, Additional history exists CKD HGB USE SMARTSET 91413 12/15/202312/14, 12/14/2022, 07/19/2022, Additional history exists DTaP,Tdap,and Td Vaccines (2 - Td or Tdap) 12/31/2029 01/01/2020 (Declined), 12/30/2009, 12/30/2009, Additional history exists Pneumococcal Vaccine: 65+ Years Completed 02/08/2017, 02/23/2006 VITAMIN D LEVEL ONCE IN A LIFETIME-USE SMARTSET# [id number] Completed 11/05/2022, 04/14/2022, 03/08/2022, Additional history exists [...] this encounter Medical Devices Implanted Type Area Body Press Operator Device Identifier Shelf Expiration Date Model / Serial / Lot Pacer Advisa Dr Dorsey - [id number] - [id number] Implanted:Qty: 1 on 04/11/2017 by Elda Patterson DO at OR [facility] Left: Chest [employer] 08/25/2018 [id number] / [id number] / documented as of this encounter Visit Diagnoses Diagnosis Gastro-esophageal reflux disease without esophagitis Esophageal reflux documented in this encounter Advance Directives Documents on File Type Date Recorded 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
--- OUTSIDE RECORDS SUMMARY | 2023-05-27 20:51 | External Medical Summary ---
Author Name Unknown Address Unknown Organization K01:LABORATORY [facility] [place] - [address] [place] [address] Laboratory Report Ordering Provider Test Date Status ILDEFONSO ARREOLA 03/17/2023 13:41:23 Litzy l Recommended trough therapeut ic ranges:
0.5 to 0.8 for heart failure
0.5 to 1.1 for atrial fibrillation Observation Date Value Abnormality Reference (Units ) Status Digoxin 03/17/2023 13:41:23 1.4 Above high normal 0. 5-1.1 (ng/mL) Final Performing Location LAB[facility]AT[facility] [place] [facility] [address] [facility] [address]
--- OUTSIDE RECORDS SUMMARY | 2023-05-27 20:51 | External Medical Summary ---
Author Name Unknown Address Unknown Organization K0G:[facility] - [address] [place] [address] Laboratory Report Ordering Provider Test Date Status LETICIA MADRIGAL 03/04/2023 10:41:00 Final Standing order for pt/inr. < br/>Please draw pt/inr every 1 to 4 weeks as requested
Results to [facility]

Warfarin Therapy
INR: 2.0-3.0 conventional anticoagulation
INR: 2.5-3.5 high intensity anticoagulation Observation Date Value Abnormality Reference (Units ) Status PT 03/04/2023 10:41:00 35.3 Above high normal 11 .6-15.2 (seconds) Final INR 03/04/2023 10:41:00 3.5 Above high normal 0. 8-1.2 Final Performing Location [facility] 0 - [address] [place] [address]
--- OUTSIDE RECORDS SUMMARY | 2023-05-27 20:51 | External Medical Summary | Summary of Care ---
Author Name Unknown Organization [facility] Address [address] [place] [address] Phone [phone] Care Team Providers Care Embedded Software Manager Name Role Phone Cathy Wilburn MD Primary Care Provide r Reason for Visit * Reason Comments eRx-Medication Refill Encounter Details Date Type Department Care Team (Late st Contact Info) Description 03/04/[address] [place] [address] Zeus Modi MD [address] [place] [address] [place] [phone] Atherosclerosis of [place] coronary artery of [place] heart without angina pectoris; Dyslipidemia, goal LDL below 70 Allergies Active Allergy Reactions Criticality Noted Date [...] as of this encounter (statuses as of 03/04/2023) Medications Medication Sig Dispensed Refills Start Date [...] mg before bedtime. As instructed by the [facility]. 8 mL 0 11/24/2022 [...] MG Oral Tablet (Lipitor)Indicati ons:Atheroscleros is of [place] coronary artery of [place] heart without angina pectoris,Dyslipid emia, goal LDL below 70 TAKE ONE TABLET AT BEDTIME 90 Tablet 0 03/04/2023 Active Atorvastatin Calcium 40 MG Oral Tablet (Lipitor)Indicati ons:Atheroscleros is of [place] coronary artery of [place] heart without angina pectoris,Dyslipid emia, goal LDL below 70 Take 1 Tablet by mouth every evening. 30 Tablet 5 08/27/2022 4 Discontinued documented as of this encounter (statuses as of 03/04/2023) Active Problems Problem Noted Date Diagnosed Date [...] lumbosacral intervertebral disc 02/04/2009 Coronary atherosclerosis of [place] coronary luis ry 02/24/2005 Senile osteoporosis 05/14/2003 Carpal tunnel syndrome 04/23/2003 Moderate mitral regurgitation GENERAL OSTEOARTHROSIS Gastroesophageal reflux disease without esophagi tis Vitamin D deficiency Hyperparathyroidism, primary documented as of this encounter (statuses as of 03/04/2023) Resolved Problems Problem Noted Date Diagnosed Date [...] 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 LOC PRIM [id number] 02/14/200205/30 Other seborrheic keratosis 10/31/2001 0 06/06/2007 [...] as of this encounter (statuses as of 03/04/2023) Immunizations Name Administration Dates Next Due Pneumococcal [...] the money to buy more. Never true 12/12/20 22 Within the past 12 months, t [...] Telephone Encounter - Arvin Max MD - 03/04/2023 4:34 PM EST Signed Prescriptions: Disp Refills Atorvastatin Calcium 40 MG Oral Tablet (Li*90 Tab*0 Sig: TAKE ONE TABLET AT BEDTIMEAuthorizing Provider: ARVIN MAX documented in this encounter Plan of Treatment Upcoming Encounters Date Type Department Care Team (Late st Contact Info) Description 03/07/2023 6:00 AM EST Anticoagulation Pharmacy Call Center [phone] [facility] [place] [address] [facility] 58 60 [facility] [place] [address] 03/17/2023 1:00 PM EST Office Visit Family Medicine [address] [place] [phone] Cathy Wilburn MD [address] [place] [address] [place] [address] 03/31/2023 8:30 AM EST Office Visit Cardiology [address] [place] [address] Poli Zepeda PA-C [address] [place] [address] 04/25/2023 1:00 PM EST Office Visit Endocrinology, [place] [address] [facility] [place] [phone] Deana Vargas MD [address] [place] [address] 04/26/2023 2:00 PM EST Cardiac Studies Cardiology [address] [place] [address] Lucia Jimenez [facility] [address] [place] [address] 06/08/2023 2:00 PM EDT Laboratory Laboratory [address] [place] [phone] [facility] Lab [address] [place] [address] 06/15/2023 2:30 PM EDT Office Visit Hematology/Oncology State James Gardiner [address] [place] [address] Matt Faustin MD [address] [place] [address] 06/24/2023 2:30 PM EDT Nurse Only Rheumatology [address] [place] [phone] [place], Nurse Rheum [address] [place] [phone] 09/26/2023 2:20 PM EDT Office Visit Nephrology [address] [place] [address] Josie Butler MD [address] [place] [address] 10/12/2023 3:00 PM EDT Office Visit Sleep Disorders Ctr [facility] [address] [place] [phone] Isabel Diallo DO [address] [place] [address] 01/23/2024 2:20 PM EST Office Visit Dermatology [address] [place] [address] Amber Orozco PA-C [address] [place] [address] [place] [address] Health Maintenance Due Date Last Done Comments COVID-19 Vaccine (#1) 1935 Depression Screening 05/30/2021 05/30/2020 DIG LEVEL FOR MEDICATION MONITORING YEARLY 03/08/2023 03/08/2022, 06/12/2021, 05/18/2021, Additional history exists Albumin/Creatinine Ratio 07/20/2023 023, 04/06/2021, 05/30/2020, Additional history exists DXA Scan 10/22/2023 10/21/2021, 0702/2018, 12/29/2015, Additional history exists CKD PHOS USE SMARTSET 54512 11/06/20230 09/2022, 04/14/2022, 10/06/2021, Additional history exists CKD HGB USE SMARTSET 15855 12/15/202312/14, 12/14/2022, 07/19/2022, Additional history exists DTaP,Tdap,and Td Vaccines (2 - Td or Tdap) 12/31/2029 01/01/2020 (Declined), 12/30/2009, 12/30/2009, Additional history exists Pneumococcal Vaccine: 65+ Years Completed 02/08/2017, 02/23/2006 VITAMIN D LEVEL ONCE IN A LIFETIME-USE SMARTSET# [id number] Completed 11/05/2022, 04/14/2022, 03/08/2022, Additional history exists [...] this encounter Medical Devices Implanted Type Area Weather Algorithm Scientist Device Identifier Shelf Expiration Date Model / Serial / Lot Pacer Advisa Dr Dorsey - [id number] - [id number] Implanted:Qty: 1 on 04/11/2017 by Elda Patterson DO at OR [facility] Left: Chest [employer] 08/25/2018 [id number] / [id number] / documented as of this encounter Visit Diagnoses Diagnosis Atherosclerosis of [place] coronary artery of [place] heart without angina pectoris Dyslipidemia, goal LDL below 70 Other and unspecified hyperlipidemia documented in this encounter Advance Directives Documents on File Type Date Recorded 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
--- OUTSIDE RECORDS SUMMARY | 2023-05-27 20:51 | External Medical Summary | Summary of Care ---
Author Name Unknown Organization [facility] Address [address] [place] [address] Phone [phone] Care Team Providers Care Supervisor Grips Name Role Phone Cathy Wilburn MD Primary Care Provide r Reason for Visit * Reason Comments Acute Encounter Details Date Type Department Care Team (Late st Contact Info) Description 02/15/2023 11:40 AM EST Office Visit Family Medicine [address] [phone] Arvin Max MD [address] [place] [address] [place] [address] Acute right-sided low back pain without sciatica*; Paroxysmal atrial fibrillation (HCC); History of colon cancer Allergies Active Allergy Reactions Criticality Noted Date [...] as of this encounter (statuses as of 02/15/2023) Medications Medication Sig Dispensed Refills Start Date [...] 40 MG Oral Tablet (Lipitor)Indications :Atherosclerosis of [place] coronary artery of [place] heart without angina pectoris,Dyslipidemi a, goal LDL below 70 Take 1 Tablet by mouth every evening. 30 Tablet 08/27/2022 Active Benzonatate 100 MG Oral CapsuleIndications:B ronchitis, complicated Take 1 Capsule by mouth 3 times a day as needed for Cough. 30 Capsule 1 09/01/2022 Active Furosemide 40 MG Oral Tablet (Lasix)Indications:D ependent edema Take 1 Tablet by mouth once a day on Tuesday, Tuesday, and Tuesday only. 60 Tablet 09/08/2022 Active Omeprazole 20 MG Oral Capsule [...] mg before bedtime. As instructed by the [facility]. 8 mL 0 11/24/2022 Active [...] as of this encounter (statuses as of 02/15/2023) Active Problems Problem Noted Date Diagnosed Date [...] lumbosacral intervertebral disc 02/04/2009 Coronary atherosclerosis of [place] coronary luis ry 02/24/2005 Senile osteoporosis 05/14/2003 Carpal tunnel syndrome 04/23/2003 Moderate mitral regurgitation GENERAL OSTEOARTHROSIS Gastroesophageal reflux disease without esophagi tis Vitamin D deficiency Hyperparathyroidism, primary documented as of this encounter (statuses as of 02/15/2023) Resolved Problems Problem Noted Date Diagnosed Date [...] 10/02/19 Overview: RLP Parathyroid adenoma resection Fam Smith DO July 02, 2008 ICD-10 update of inactive term Slow transit constipation 02/09/2008 Postmenopausal atrophic vaginitis 02/09/2008 07/15/2017 Hypercalcemia 07/14/2005 05/22/2007 PVC (premature ventricular contraction) 05/26/2005 04/21/2017 Ischemic cardiomyopathy 02/25/200507/29 ADVANCE DIRECTIVE INFORMATION 02/24/2005 02/08/2017 Overview: No, Advance Directive brochure given to patient at prior appointment. OSTEOARTHROS NOS-L-LEG 05/26/200406/20 TENOSYNOV HAND-WRIST NEC 04/23/2003 CERVICAL 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 LOC PRIM [id number]-[id number] 02/14/200205/30 Other seborrheic keratosis 10/31/2001 0 06/06/2007 [...] as of this encounter (statuses as of 02/15/2023) Immunizations Name Administration Dates Next Due Pneumococcal [...] Sign Reading Time Taken Comments Blood Pressure 134/76 02/15/2023 11:47 AM EST Pulse 86 02/15/2023 11:47 AM EST Temperature 36.6 C (97.8 F) 02/15/2023 11:[address] Respiratory Rate - - Oxygen Saturation 99% 02/15/2023 11:47 AM EST Inhaled Oxygen Concentration - - Weight 80.3 kg (177 lb) 02/15/2023 11:47 AM EST Height - - Body Mass Index 27.72 12/03/2022 5:04 PM EDT documented in this [...] as of this encounter Progress Notes * Arvin Max MD - 02/15/2023 11:50 AM EST Subjective: Miranda Coe is a 87 year old female. Chief Complaint Patient presents with Acute HPI: Brief Clinical History Ms. Coe is an 87 year old woman last seen in Family Medicine 2 months ago (12-03-22). 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 Has had severe low back pain for about 5 days. The pain is across the low back and worse on the right side. No radiation down her legs. Fell on Thanksgiving (over 3 weeks ago) but no recent fall. Hither head then and did go to ED and had a negative head CT and knee x-ray. Using a heating pad and Tylenol. Has h/o colon cancer s/p resection. Follows with Dr. Faustin and has labs done. Had recent colonoscopy that was clear. Results for orders placed or performed in visit on 02/04/23 PT INR Result Value Ref Range Prothrombin Time 23.0 (H) 11.6 - 15.2 seconds INR 2.0 (H) 0.8 - 1.2 *Note: Due to a large number of results and/or encounters for the requested time period, some results have not been displayed. A complete set of results can be found in Results Review. PHM: Patient Active Problem List Diagnosis Code Carpal tunnel syndrome G56.00 Senile osteoporosis M81.0 Coronary atherosclerosis of [place] coronary artery I25.10 Moderate mitral regurgitation I34.0 [...] History of falling Z91.81 Peripheral edema R60.9 Thoracic aorta atherosclerosis (HCC) I70.0 Thrombophlebitis of superficial veins of left lower extremity I80.02 Mixed stress and urge urinary incontinence N39.46 Moderate episode of recurrent major depressive disorder ([facility]) F33.1 Iron deficiency anemia D50.9 History of [...] chronic kidney disease (HCC) I13.0, I50.42, N18.32 Current Outpatient Medications Medication Sig Dispense Refill [...] TABLET IN THE MORNING 30 Tablet 11 Atorvastatin Calcium 40 MG Oral Tablet (Lipitor) Take 1 Tablet by mouth every evening. 30 Tablet 5 Benzonatate 100 MG Oral Capsule Take 1 Capsule by mouth 3 times a day as needed for Cough. 30 Capsule 1 Furosemide 40 MG Oral Tablet (Lasix) Take 1 Tablet by mouth once a day on Tuesday, Tuesday, and Tuesday only. 60 Tablet 5 Omeprazole 20 MG Oral Capsule Delayed Release (PriLOSEC) Take 1 Capsule by mouth in the morning. 90Capsule 1 Metoprolol Succinate ER 100 MG Oral Tablet Extended Release 24 Hour (toPROL XL) Take 1.5 Tablets bymouth in the morning and 1.5 Tablets before bedtime. 120 Tablet 5 Enoxaparin Sodium 80 MG/0.8ML Injection Solution Prefilled Syringe (Lovenox) Inject 80 mg under theskin in the morning and 80 mg before bedtime. As instructed by the [facility]. 8 mL 0 Warfarin Sodium 2 MG Oral Tablet (Jantoven) Take 1-2 Tablets by mouth every evening. 180 Tablet 1 amLODIPine Besylate 5 MG Oral Tablet (Norvasc) TAKE ONE TABLET IN THE MORNING 90 Tablet 0 Losartan Potassium 100 MG Oral Tablet (Cozaar) TAKE ONE TABLET IN THE MORNING 90 Tablet 0 predniSONE 20 MG Oral Tablet (Deltasone) 1 tab 3 times a day for 3 days, then 1 tab 2 times a day for 3 days, then 1 tab daily for 3 days 18 Tablet 0 No current facility-administered medications for this visit. Past Medical History: Diagnosis Date Acute pulmonary embolism (HCC) 07/17/2021 Allergic rhinitis 10/06/2012 Anxiety state 05/02/2009 Asthma, severity to be determined Atrial premature beats Benign neoplasm of colon 1991 hyperplastic polyp Benign neoplasm of skin Benign paroxysmal vertigo Cardiac pacemaker in situ 04/19/2017 Coronary atherosclerosis of [place] coronary artery 02/01 Degeneration of lumbosacral intervertebral disc 02/04/2009 Depressive disorder, not elsewhere classified 05/02/2009 Diffuse cystic mastopathy Diffuse cystic mastopathy DVT, lower extremity, distal, acute, right (HCC) 06/03/2021 Dyslipidemia, goal LDL below 100 05/28/2014 Dyslipidemia, goal LDL below 70 10/09/2009 Esophageal reflux Essential hypertension with goal blood pressure less than 140/90 11/24/2015 Ganglion of tendon left foot Generalized osteoarthritis HTN, goal below 130/80 02/04/2009 HTN, goal below 140/90 05/28/2014 Hypercalcemia 11/04 Hyperparathyroidism, primary (HCC) Hyperparathyroidism, unspecified (HCC) 07/02/2008 RLP Parathyroid adenoma resection Fam SmithDO July 02, 2008 Hypertension goal BP (blood pressure) < 140/80 02/25/2014 Ischemic cardiomyopathy 02/01 LVEF 40 % on cath Kidney disease, chronic, stage III (GFR 30-59 ml/min) (HCC) 04/08/2015 LAE (left atrial enlargement) 06/03/2021 Duplicate Localized, primary osteoarthritis of hand 02/04/2011 Malignant neoplasm of ascending colon (HCC) 05/12/2021 S/P colectomy-No current treatment Menopause Mitral [...] HEART THRU SKIN 02/18/2005 Dr. Gunter - [facility] [place] 1 VIEW 03/19/2001 PAH--the heart appears [...] - invasive adenocarcinoma, adenomatous polyps, diverticulosis / [facility] COLONOSCOPY, DIAGNOSTIC (RECTUM) N/A 06/24/2022 multiple polyps/few angiodysplastic lesions ascending colon/hemorrhoids/biopsies show adenomatous polyps/recall 6 months/Colon[place]/[facility] COLONOSCOPY, DIAGNOSTIC (RECTUM) N/A 12/09/2022 poor prep/biopsies normal/Colonoscopy/[facility] COLONOSCOPY, SURGERY REFERRAL OP 07/30/2003 Dr. Schultz - normal EGD, FLEXIBLE, DIAGNOSTIC 01/15/2021 normal bx / [facility] EXPLORE PARATHYROID GLANDS 07/02/2008 PARATHYROIDECTOMY performed by FAM SMITH at [place] [facility] INFORMATION FACIAL FX INFORMATION L hand tumor INSERT/REPLACE PACEMAKER,ATRIAL/VENTRICULAR Left 04/11/2017 NEW DDD PACEMAKER IMPLANT performed by Elda Patterson, at OR [facility] INSERTION OF LENS PROSTHESIS 07/05/2012 right eye, dr ortega KNEE ARTHROSCOPY, DIAGNOSTIC 01/28/1994 left knee LAPAROSCOPIC COLECTOMY PARTIAL WITH ANASTOMOSIS 04/27/2021 right hemicolectomy, Dr. Salamanca [facility] CARDIAC THALLIUM STRESS, OUTSIDE FILMS 01/28/1998 negative PARTIAL REMOVAL OF COLON Right 04/27/2021 right hemicolectomy with anastamosis for ascending colon cancer--Dr. 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 Schultz TOTAL ABD HYSTERECTOMY W/WO REMOVAL OF TUBE(S) 30 yo prolapse - has ovaries in UPPER GI ENDOSCOPY 2020 normal stomach, biopsied. normal examined duodenum, normal examined jejunem VASC RENAL VASCULAR SCAN-COMPLETE 06/29/2007 no renal artery stenosis Social History Socioeconomic History Marital status: Spouse name: Mian Number of children: 5 Years of education: Not on file Highest education level: Not on file Occupational History Occupation: NA Employer: [employer] Comment: retired 06/28/99 Tobacco Use Smoking status: Never Smokeless tobacco: Never Vaping Use Vaping Use: Never used Substance and Sexual Activity Alcohol use: Not Currently Drug use: No Sexual activity: Yes Partners: Male Other Topics Concern Service Not Asked Blood Transfusions Not Asked Caffeine Concern Not Asked Occupational Exposure Not Asked Hobby Hazards Not Asked Sleep Concern Not Asked Stress Concern Not Asked Weight Concern Not Asked Special Diet Not Asked Back Care Not Asked Exercise Not Asked Bike Helmet Not Asked Seat Belt Yes Self-Exams Not Asked Social History Narrative Not on file Social Determinants of Health Financial Resource Strain: Not on file Food Insecurity: No Food Insecurity (02/08/2022) Hunger Vital Sign Worried About Running Out of Food in the Last Year: Never true Ran Out of Food in the Last Year: Never true Transportation Needs: Not on file Physical Activity: Not on file Stress: Not on file Social Connections: Not on file Intimate Partner Violence: Not on file Housing Stability: Not on file Review of patient's allergies indicates: Allergen Reactions [...] Red Dye Hives Erythromycin Nausea/vomiting Upset stomach Objective: BP 134/76 | Pulse 86 | Temp 36.6 C (97.8 F) (Tympanic) | Wt 80.3 kg (177 lb) | SpO2 99% | BMI 27.72 kg/m | BSA 1.95 m Physical Exam: General: alert, no distress, well nourished, and well developed Back: no costovertebral angle tenderness, Normal heel walk and toe walk, without evidence of muscleweakness, Some limitation of flexion, Tender paralumbar muscles on the right Extremities: no edema, no clubbing, no cyanosis Neuro Exam: alert & oriented x 3 with fluent speech, no focal motor/sensory deficits, ambulatesslowly with a cane Extensive ROS Constitutional (f/c/wt/vision/hearing): Negative Resp (cough/sob/singer): Negative CV (cp/palp/fluttering/diaphoresis/singer/pnd):Negative GI (n/v/d/hrtburn): Negative Endo (hair/cold or heat intol/ 3 p's): Negative Neuro (shaking/weak/fatigu/parasthesi/): Negative Skin (rash/easy bruis/xerosis): Negative Psy (si/hi/halluc/): Negative (nocturia/hesit/drib/sexual review): Negative Lymph (swollen glands/b sx's/: Negative ASSESSMENT: Acute right-sided low back pain without sciatica (Primary)--fell about 3 weeks ago. Pain started 5 days ago. Tender over right paralumbar muscles. - XR L SPINE AP AND LATERAL - predniSONE 20 MG Oral Tablet (Deltasone); 1 tab 3 times a day for 3 days, then 1 tab 2 times a day for 3 days, then 1 tab daily for 3 days Paroxysmal atrial fibrillation (HCC)--on Coumadin. Had negative head CT after her fall. History of colon cancer Follow Up: Return as scheduled. PLAN: Continue present medication(s): Begin medication(s): Prednisone taper for low back pain. Most tender over right lumbar muscles so suspect muscular pain. Study(ies) ordered: X-ray lumbar spine to r/o acute bony injury. None seen on official read. Will follow-up official radiology read. Follow up: As scheduled. Arvin Max MD documented in this encounter Nursing Notes * Pau Mccurdy LPN - 02/15/2023 11:46 AM EST Day 5 of severe lower back pain Using heating pad & OTC meds Not helping Hurts to walk or move around Fell on her bottom & hit head on door on . Had CT scan of head done at [facility]. Didn't have any x ray of back or bottom area. Did have x ray of knee. documented in this encounter Plan of Treatment Upcoming Encounters Date Type Department Care Team (Late st Contact Info) Description 03/04/2023 8:20 AM EST Laboratory Lab Mobile Phlebotomy [facility] [address] [place] [address] [facility], [facility] Mobile Home Draw [address] [place] [address] 03/07/2023 6:00 AM EST Anticoagulation Pharmacy Call Center [phone] [facility] [place] [phone] [facility], [facility] [address] [facility] [place] [address] 03/17/2023 1:00 PM EST Office Visit Family Medicine [address] [place] [phone] Cathy Wilburn MD [address] [place] [address] [place] [phone] 03/31/2023 8:30 AM EST Office Visit Cardiology [address] [place] [address] Poli Zepeda PA-C [address] [place] [address] 04/25/2023 1:00 PM EST Office Visit Endocrinology, [place] [address] [place] [address] Deana Vargas MD [address] [place] [address] 04/26/2023 2:00 PM EST Cardiac Studies Cardiology [address] [place] [phone] Lucia Jimenez [facility] [address] [place] [address] 06/08/2023 2:00 PM EDT Laboratory Laboratory [address] [place] [phone] [facility] [address] [place] [address] 06/15/2023 2:30 PM EDT Office Visit Hematology/Oncology [facility] [address] [place] [address] Matt Faustin MD [address] [place] [address] 06/24/2023 2:30 PM EDT Nurse Only Rheumatology [address] [place] [phone] [place], Nurse Rheum [address] [place] [phone] 09/26/2023 2:20 PM EDT Office Visit Nephrology [address] [place] [address] Josie Butler MD [address] [place] [address] 10/12/2023 3:00 PM EDT Office Visit Sleep Disorders Ctr [facility] [address] [place] [phone] Isabel Diallo DO [address] [facility] [place] [address] 01/23/2024 2:20 PM EST Office Visit Dermatology [address] [place] [address] Amber Orozco PA-C [address] [place] [address] [place] [phone] Pending Results Name Type Priority Associated Diagnoses Date /Time XR L SPINE AP AND LATERAL Medical Imaging Routine Acute right-sided low back pain without sciatica 02/15/2023 12:30 PM EST Health Maintenance Due Date Last Done Comments COVID-19 Vaccine (#1) 1935 Depression Screening 05/30/2021 05/30/2020 DIG LEVEL FOR MEDICATION MONITORING YEARLY 03/08/2023 03/08/2022, 06/12/2021, 05/18/2021, Additional history exists Albumin/Creatinine Ratio 07/20/2023 023, 04/06/2021, 05/30/2020, Additional history exists DXA Scan 10/22/2023 10/21/2021, 0702/2018, 12/29/2015, Additional history exists CKD PHOS USE SMARTSET 02753 11/06/20230 09/2022, 04/14/2022, 10/06/2021, Additional history exists CKD HGB USE SMARTSET 96059 12/15/202312/14, 12/14/2022, 07/19/2022, Additional history exists DTaP,Tdap,and Td Vaccines (2 - Td or Tdap) 12/31/2029 01/01/2020 (Declined), 12/30/2009, 12/30/2009, Additional history exists Pneumococcal Vaccine: 65+ Years Completed 02/08/2017, 02/23/2006 VITAMIN D LEVEL ONCE IN A LIFETIME-USE SMARTSET# [id number] Completed 11/05/2022, 04/14/2022, 03/08/2022, Additional history exists [...] this encounter Medical Devices Implanted Type Area Tool Room Supervisor Device Identifier Shelf Expiration Date Model / Serial / Lot Pacer Advisa Dr Dorsey - [id number] - [id number] Implanted:Qty: 1 on 04/11/2017 by Elda Patterson DO at OR [facility] Left: Chest [employer] 08/25/2018 [id number] / [id number] / documented as of this encounter Visit Diagnoses Diagnosis Acute right-sided low back pain without sciatica- Primary Paroxysmal atrial fibrillation (HCC) Atrial fibrillation History of colon cancer Personal history of malignant neoplasm of large intestine documented in this encounter Advance Directives Documents on File Type Date 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
--- OUTSIDE RECORDS SUMMARY | 2023-05-27 20:51 | External Medical Summary | Summary of Care ---
Author Name Unknown Organization [facility] Address [address] [place] [facility] [place] [address] Phone [phone] Care Team Providers Care Lab Animal Technician Name Role Phone Cathy Wilburn MD Primary Care Provide r Reason for Visit * Reason Comments Dosage Adjustment Via Phone (anticoag Cl inic) Encounter Details Date Type Department Care Team (Latest Contact Info) Description 03/07/2023 6:00 AM EST Anticoagulation Pharmacy Call Center [phone] Public [place] [address] [facility] 58 60 Public [facility] [place] [address] Paroxysmal atrial fibrillation (HCC)* Allergies Active Allergy [...] Tablet 07/06/2022 Active Benzonatate 100 MG Oral CapsuleIndications:B ronchitis, [...] mg before bedtime. As instructed by the [facility]. 8 mL 0 11/24/2022 Active [...] 40 MG Oral Tablet (Lipitor)Indications :Atherosclerosis of [place] coronary artery of [place] heart without angina pectoris,Dyslipidemi a, goal LDL below 70 TAKE ONE TABLET AT BEDTIME 90 Tablet 0 03/04/2023 Active Omeprazole 20 MG Oral Capsule Delayed Release (PriLOSEC)Indication s:Gastro-esophageal reflux disease without esophagitis TAKE ONE CAPSULE BY MOUTH IN THE MORNING 90 Capsule 1 03/07/2023 Active documented as of this encounter (statuses [...] lumbosacral intervertebral disc 02/04/2009 Coronary atherosclerosis of [place] coronary luis ry 02/24/2005 Senile osteoporosis 05/14/2003 [...] and conduct 05/02/2009 01/15/2015 ACTIVE CASE MANAGEMENT Calrie Santiago RN 03/18/2009 12/15/2009 HTN, goal below [...] 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 LOC PRIM [id number] 02/14/200205/30 Other seborrheic keratosis 10/31/2001 0 06/06/2007 [...] as of this encounter Progress Notes * Vonnie Lam RPh - 03/07/2023 10:29 AM EST Noted Vonnie Lam Rph, Pharm.D. Clinical Pharmacist Centralized Clinical Pharmacy Services (CCPS) (formerly Telepharmacy) [phone] 03/07/2023,10:29 AM * Mirna Johns, breakfast server - 03/07/2023 9:26 AM EST Contacts Type Contact Phone/Fax 03/07/2023 09:21 AM EST Phone (Outgoing) Miranda Coe (Self) [phone] (M) Spoke to Patient Subjective Patient Findings Positives: Bruising (Pt fell on her back side over a wk ago (she did not hit her head) she does have a bruise on her buttocks area - not getting worse (remaining the same) - Patient has an upcoming return appt with PCP. Patient aware to call us with any changes to the bruise) Negatives: Signs/symptoms of thrombosis, Signs/symptoms of bleeding, Change in health, Change in alcohol use, Change in activity, Upcoming invasive procedure, Missed doses, Extra doses, Change in medications, Change in diet/appetite Advised patient to contact Anticoagulation Clinic if any unusual bruising or bleeding, recent illness, changes in medication, or questions/concerns. PT/INR results, Coumadin dose instructions, and next PT/INR date communicated as noted by Pharmacist: Yes MIRNA JOHNS breakfast server 03/07/2023, 9:26 AM * Vonnie Lam RP - 03/07/2023 8:08 AM EST Images from the original note were not included. Coumadin Clinic (region specific) Objective Current Warfarin Dose As of 03/07/2023 Warfarin maintenance plan: 4 mg (2 mg x 2) every Mon, Wed, Fri; 2 mg (2 mg x 1) all other days INR Result As of 03/07/2023 INR goal: 2.0-3.0 INR used for dosin.5 (03/04/2023) Assessment & Plan Warfarin Plan As of 03/07/2023 Full warfarin instructions: 03/07: Hold; Otherwise 4 mg every Mon, Wed, Fri; 2 mg all other days Next INR check: 04/01/2023 Repeat PT/INR in 4 week(s) Weekly dose: not changed Additional Dosing Information: Description [facility] Tech to contact patient with dose instructions as noted. Vonnie Lam RPh 03/07/2023, 8:08 AM documented in this encounter Plan of Treatment Upcoming Encounters Date Type Department Care Team (Late st Contact Info) Description 03/17/2023 1:00 PM EST Office Visit Family Medicine [address] [place] [phone] Cathy Wilburn MD [address] [place] [address] [place] [address] 03/31/2023 8:30 AM EST Office Visit Cardiology [address] [place] [address] Poli Zepeda PA-C [address] [place] [address] 04/04/2023 6:00 AM EST Anticoagulation Pharmacy Call Center WB [phone] [facility] [place] [address] [facility] 58 60 [facility] [place] [address] 04/25/2023 1:00 PM EST Office Visit Endocrinology, [place] [address] [place], [place] [phone] Deana Vargas MD [address] [place] [address] 04/26/2023 2:00 PM EST Cardiac Studies Cardiology [address] [place] [address] [facility] [address] [place] [address] 06/08/2023 2:00 PM EDT Laboratory Laboratory [address] [place] [phone] [place] [facility] [address] [place] [address] 06/15/2023 2:30 PM EDT Office Visit Hematology/Oncology [facility] [place] [address] [place] [address] Matt Faustin MD [address] [place] [address] 06/24/2023 2:30 PM EDT Nurse Only Rheumatology [address] [place] [phone] [place], Nurse [address] [place] [phone] 09/26/2023 2:20 PM EDT Office Visit Nephrology [address] [place] [address] Josie Butler MD [address] [facility] [place] [address] 10/12/2023 3:00 PM EDT Office Visit Sleep Disorders Ctr [facility] [address] [place] [phone] Isabel Diallo DO [address] [place] [address] 01/23/2024 2:20 PM EST Office Visit Dermatology [address] [place] [address] Amber Orozco PA-C [address] [place] [address] [place] [address] Health Maintenance Due Date Last Done Comments COVID-19 Vaccine (#1) 1935 Depression Screening 05/30/2021 05/30/2020 DIG LEVEL FOR MEDICATION MONITORING YEARLY 03/08/2023 03/08/2022, 06/12/2021, 05/18/2021, Additional history exists Albumin/Creatinine Ratio 07/20/20232 023, 04/06/2021, 05/30/2020, Additional history exists DXA Scan 10/22/2023 10/21/2021, 02/2018, 12/29/2015, Additional history exists CKD PHOS USE SMARTSET 49652 11/06/20230 09/2022, 04/14/2022, 10/06/2021, Additional history exists CKD HGB USE SMARTSET 48235 12/15/202312/14, 12/14/2022, 07/19/2022, Additional history exists DTaP,Tdap,and Td Vaccines (2 - Td or Tdap) 12/31/2029 01/01/2020 (Declined), 12/30/2009, 12/30/2009, Additional history exists Pneumococcal Vaccine: 65+ Years Completed 02/08/2017, 02/23/2006 VITAMIN D LEVEL ONCE IN A LIFETIME-USE SMARTSET# 58360 Completed 11/05/2022, 04/14/2022, 03/08/2022, Additional history exists [...] this encounter Medical Devices Implanted Type Area Home Designer Device Identifier Shelf Expiration Date Model / Serial / Lot Pacer Advisa Dr Dorsey - [id number] - [id number] Implanted:Qty: 1 on 04/11/2017 by Elda Patterson DO at OR [facility] Left: Chest [employer] 08/25/2018 [id number] / [id number] / documented as of this encounter Visit Diagnoses Diagnosis Paroxysmal atrial fibrillation (HCC)- Primary Atrial fibrillation documented in this encounter Advance Directives Documents on File Type Date Recorded Patient Matrix Bath Attendant Expl anation POLST 01/05/2021 [place] OR [facility] FOR LIFE-SUSTAINING TREATMENT Latest Code Status on File Code Status Date Activated Date Inactivated Comments Full Code 07/02/2008 9:35 AM 07/03/2008 5:40 PM Care Teams Lab Animal Technician Relationship Specialty Start Date End Date Cathy Wilburn MD [address] [place] [address] [place] [address] PCP - General Family Medicine 12/03/22 documented as of this encounter
--- OUTSIDE RECORDS SUMMARY | 2023-05-27 20:51 | External Medical Summary ---
Author Name Unknown Address Unknown Organization K01:[facility] - [address] [facility] [address] Laboratory Report Ordering Provider Test Date Status ILDEFONSO ARREOLA 03/17/2023 13:41:23 Litzy l Observation Date Value Abnormality Reference (Units ) Status SYNC LEUKOCYTES IN BLOOD BY AUTOMATED COUNT 03/17/2023 13:41:23 8.41 4.00-10.80 (K/uL) Final Segs 03/17/2023 13:41:23 68.1 40.0-75.0 (%) Final Lymphs % 03/17/2023 13:41:23 11.7 Below low normal 18.0-42.0 (%) Final Monos 03/17/2023 13:41:23 14.7 Above high normal 1.0-11.0 (%) Final Eosinophils 03/17/2023 13:41:23 3.7 0.0-6.0 (%) Final Basos 03/17/2023 13:41:23 0.5 0.0-2.0 (%) Final Immature Granulocyte, Percent 03/17/2023 13:41:23 1.3 0.0-2.0 (%) Final Absolute Segs 03/17/2023 13:41:23 5.73 1.80-7.70 (K/uL) Final Lymphs, absolute 03/17/2023 13:41:23 0.98 Below low normal 1.00-4.80 (K/ul) Final Monos, Abs 03/17/2023 13:41:23 1.24 Above high normal 0.00-1.10 (K/uL) Final Eos, Abs 03/17/2023 13:41:23 0.31 0.00-0.70 (K/uL) Final Basos, Abs 03/17/2023 13:41:23 0.04 0.00-0.20 (K/uL) Final Immature Granulocytes, Number 03/17/2023 13:41:23 0.11 0.00-0.20 (K/uL) Final Performing Location LABORATORY [facility] - [facility] [place] [address]
--- OUTSIDE RECORDS SUMMARY | 2023-05-27 20:52 | External Medical Summary | Summary of Care ---
Author Name Unknown Organization [facility] Address [address] [place] [facility] [place] [address] Phone [phone] Care Team Providers Care Tailings Worker Name Role Phone Cathy Wilburn MD Primary Care Provide r Reason for Visit * Reason Comments Dosage Adjustment Via Phone (anticoag Cl inic) Encounter Details Date Type Department Care Team (Latest Contact Info) Description 02/07/2023 6:00 AM EST Anticoagulation Pharmacy Call Center [phone] Public [place] [address] [facility] 58 60 Public [facility] [place] [address] Paroxysmal atrial fibrillation (HCC)* Allergies Active Allergy [...] as of this encounter (statuses as of 02/07/2023) Medications Medication Sig Dispensed Refills Start Date [...] 40 MG Oral Tablet (Lipitor)Indications :Atherosclerosis of [place] coronary artery of [place] heart without angina pectoris,Dyslipidemi a, goal LDL [...] mg before bedtime. As instructed by the [facility]. 8 mL 0 11/24/2022 Active Warfarin Sodium 2 MG Oral Tablet (Jantoven) Take 1-2 Tablets by mouth every evening. 180 Tablet 1 12/31/2022 Active amLODIPine Besylate 5 MG Oral Tablet (Norvasc) TAKE ONE TABLET IN THE MORNING 90 Tablet 0 01/11/2023 Active Losartan Potassium 100 MG Oral Tablet (Cozaar) TAKE ONE TABLET IN THE MORNING 90 Tablet 0 01/11/2023 Active documented as of this encounter (statuses as of 02/07/2023) Active Problems Problem Noted Date Diagnosed Date [...] lumbosacral intervertebral disc 02/04/2009 Coronary atherosclerosis of [place] coronary luis ry 02/24/2005 Senile osteoporosis 05/14/2003 Carpal tunnel syndrome 04/23/2003 Moderate mitral regurgitation GENERAL OSTEOARTHROSIS Gastroesophageal reflux disease without esophagi tis Vitamin D deficiency Hyperparathyroidism, primary documented as of this encounter (statuses as of 02/07/2023) Resolved Problems Problem Noted Date Diagnosed Date [...] 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 LOC PRIM [id number] 02/14/200205/30 Other seborrheic keratosis 10/31/2001 0 06/06/2007 [...] as of this encounter (statuses as of 02/07/2023) Immunizations Name Administration Dates Next Due Pneumococcal [...] as of this encounter Progress Notes * Shena Davenport PHARM Tech - 02/07/2023 8:23 AM EST Contacts Type Contact Phone/Fax 02/07/2023 08:20 AM EST Phone (Outgoing) Miranda Coe (Self) [phone] (M) Spoke to Patient Subjective Patient Findings Negatives: Signs/symptoms of bleeding, Change in health, Change in activity, Upcoming invasive procedure, Missed doses, Extra doses, Change in medications, Change in diet/appetite, Bruising Advised patient to contact Anticoagulation Clinic if any unusual bruising or bleeding, recent illness, changes in medication, or questions/concerns. PT/INR results, Coumadin dose instructions, and next PT/INR date communicated as noted by Pharmacist: Yes REBECA SALINAS 02/07/2023, 8:23 AM * Vonnie Lam [facility] - 02/07/2023 8:09 AM EST Coumadin Clinic (region specific) Objective Current Warfarin Dose As of 02/07/2023 Warfarin maintenance plan: 4 mg (2 mg x 2) every Mon, Wed, Fri; 2 mg (2 mg x 1) all other days INR Result As of 02/07/2023 INR goal: 2.0-3.0 INR used for dosin.0 (02/04/2023) Assessment & Plan Warfarin Plan As of 02/07/2023 Full warfarin instructions: 4 mg every Mon, Wed, Fri; 2 mg all other days No change documented: Vonnie Lam RPh Next INR check: 03/04/2023 Repeat PT/INR in 4 week(s) Weekly dose: not changed Additional Dosing Information: Description [facility] Tech to contact patient with dose instructions as noted. Vonnie Lam RPh 02/07/2023, 8:09 AM documented in this encounter Plan of Treatment Upcoming Encounters Date Type Department Care Team (Late st Contact Info) Description 03/07/2023 6:00 AM EST Anticoagulation Pharmacy Call Center 58-60 [facility] [place] [address] [facility] 58 60 [facility] [place] [address] 03/17/2023 3:40 PM EST Office Visit Family Medicine [address] [place] [phone] Cathy Wilburn MD [address] [place] [address] [place] [address] 03/31/2023 8:30 AM EST Office Visit Cardiology [address] [place] [address] Poli Zepeda PA-C [address] [facility] [place] [address] 04/25/2023 1:00 PM EST Office Visit Endocrinology, [place] [address] [facility] [place] [address] Deana Vargas MD [address] [facility] [place] [address] 04/26/2023 2:00 PM EST Cardiac Studies Cardiology [address] [place] [address] Lucia Jimenez [facility] [address] [place] [address] 06/08/2023 2:00 PM EDT Laboratory Laboratory [address] [place] [phone] [place], Lab [address] [place] [address] 06/15/2023 2:30 PM EDT Office Visit Hematology/Oncology [facility] [address] [place] [address] Matt Faustin MD [address] [place] [address] 06/24/2023 2:30 PM EDT Nurse Only Rheumatology [address] [place] [phone] [place], Nurse Rheum [address] [place] [phone] 09/26/2023 2:20 PM EDT Office Visit Nephrology [address] [place] [address] Josie Butler MD [address] [place] [address] 10/12/2023 3:00 PM EDT Office Visit Sleep Disorders Ctr [facility] [address] [place] [phone] Isabel Diallo DO 132 [place] [address] 01/23/2024 2:20 PM EST Office Visit Dermatology [address] [place] [address] Amber Orozco PA-C [address] [place] [address] [place] [phone] Health Maintenance Due Date Last Done Comments COVID-19 Vaccine (#1) 1935 Depression Screening 05/30/2021 05/30/2020 DIG LEVEL FOR MEDICATION MONITORING YEARLY 03/08/2023 03/08/2022, 06/12/2021, 05/18/2021, Additional history exists Albumin/Creatinine Ratio 07/20/2023 023, 04/06/2021, 05/30/2020, Additional history exists DXA Scan 10/22/2023 10/21/2021, 02/2018, 12/29/2015, Additional history exists CKD PHOS USE SMARTSET 48945 11/06/202309/2022, 04/14/2022, 10/06/2021, Additional history exists CKD HGB USE SMARTSET 64151 12/15/202312/14, 12/14/2022, 07/19/2022, Additional history exists DTaP,Tdap,and Td Vaccines (2 - Td or Tdap) 12/31/2029 01/01/2020 (Declined), 12/30/2009, 12/30/2009, Additional history exists Pneumococcal Vaccine: 65+ Years Completed 02/08/2017, 02/23/2006 VITAMIN D LEVEL ONCE IN A LIFETIME-USE SMARTSET# 08627 Completed 11/05/2022, 04/14/2022, 03/08/2022, Additional history exists [...] this encounter Medical Devices Implanted Type Area Sports Photographer Device Identifier Shelf Expiration Date Model / Serial / Lot Pacer Advisa Dr Dorsey - [id number] - [id number] Implanted:Qty: 1 on 04/11/2017 by Elda Patterson DO at OR [facility] Left: Chest [employer] 08/25/2018 [id number] / [id number] / documented as of this encounter Visit Diagnoses Diagnosis Paroxysmal atrial fibrillation (HCC)- Primary Atrial fibrillation documented in this encounter Advance Directives Documents on File Type Date Recorded Patient Budget Director Expl anation POLST 01/05/2021 [place] OR [facility] FOR LIFE-SUSTAINING TREATMENT Latest Code Status on File Code Status Date Activated Date Inactivated Comments Full Code 07/02/2008 9:35 AM 07/03/2008 5:40 PM Care Teams Tailings Worker Relationship Specialty Start Date End Date Cathy Wilburn MD [address] [place] [address] [place] [phone] PCP - General Family Medicine 12/03/22 documented as of this encounter
--- OUTSIDE RECORDS SUMMARY | 2023-05-27 20:52 | External Medical Summary | Summary of Care ---
Author Name Unknown Organization [facility] Address [address] [place] [address] Phone [phone] Care Team Providers Care Excellence Manager Name Role Phone Cathy Fregoso MD Primary Care Provide r Reason for Visit * Reason Comments eRx-Medication Refill Encounter Details Date Type Department Care Team (Late st Contact Info) Description 01/10/2023 Refill Family Medicine [address] [place] [phone] Cathy Fregoso MD [address] [place] [address] [place] [address] Allergies Active Allergy Reactions Criticality Noted Date [...] as of this encounter (statuses as of 01/11/2023) Medications Medication Sig Dispensed Refills Start Date [...] MG Oral Tablet (Lipitor)Indicati ons:Atheroscleros is of [place] coronary artery of [place] heart without angina pectoris,Dyslipid emia, goal LDL below 70 Take 1 Tablet by mouth every evening. 30 Tablet 08/27/2022 Active Benzonatate 100 MG Oral CapsuleIndication s:Bronchitis, [...] mg before bedtime. As instructed by the [facility]. 8 mL 0 11/24/2022 Active [...] ONE TABLET BY MOUTH IN THE MORNING 30 Tablet 5 08/04/2022 3 Discontinued amLODIPine Besylate 5 MG Oral Tablet (Norvasc) TAKE ONE TABLET BY MOUTH IN THE MORNING 30 Tablet 5 08/04/2022 3 Discontinued documented as of this encounter (statuses as of 01/11/2023) Active Problems Problem Noted Date Diagnosed Date [...] lumbosacral intervertebral disc 02/04/2009 Coronary atherosclerosis of [place] coronary luis ry 02/24/2005 Senile osteoporosis 05/14/2003 Carpal tunnel syndrome 04/23/2003 Moderate mitral regurgitation GENERAL OSTEOARTHROSIS Gastroesophageal reflux disease without esophagi tis Vitamin D deficiency Hyperparathyroidism, primary documented as of this encounter (statuses as of 01/11/2023) Resolved Problems Problem Noted Date Diagnosed Date [...] 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 LOC PRIM [id number] 02/14/200205/30 Other seborrheic keratosis 10/31/2001 0 06/06/2007 [...] as of this encounter (statuses as of 01/11/2023) Immunizations Name Administration Dates Next Due Pneumococcal [...] 05/30/2020 Hunger Vital Sign Answer Date Recorded Worried About Running Out of Food in the Last Ye ar Never true 12/20/2019 Ran Out of Food in the Last Year Never true 12/20/2019 Sex and Gender Information Value Date Recorded [...] encounter Miscellaneous Notes * Telephone Encounter - Tiffany Mo [facility] - 01/11/2023 1:30 PM ESTSigned Prescriptions: Disp Refills amLODIPine Besylate 5 MG Oral Tablet (Norv*90 Tab*0 Sig: TAKE ONE TABLET IN THE MORNINGAuthorizing Provider: Rafal FREGOSO User: TIFFANY MO Losartan Potassium 100 MG Oral Tablet (Coz*90 Tab*0 Sig: TAKE ONE TABLET IN THE MORNINGAuthorizing Provider: Rafal FREGOSO User: TIFFANY MO * Telephone Encounter - Tiffany Mo RPh - 01/11/2023 1:28 PM EST RX authorized. Zero refills given until upcoming OV on 03/17/2023. Thank you, Tiffany Mo, PharmD Clinical Pharmacist Centralized Clinical Pharmacy Services ([facility]PS) 01/11/23 1:28 PM [phone] documented in this encounter Plan of Treatment Upcoming Encounters Date Type Department Care Team (Late st Contact Info) Description 01/14/2023 8:40 AM EST Laboratory Lab [facility] Phle[facility] [address] [place], [place] [phone] [facility], [facility] Mobile Home Draw [address] [place], [place] [phone] 01/17/2023 6:00 AM EST [facility] [address] [facility] 58 60 [facility] [address] 01/17/2023 3:00 PM EST Office Visit Dermatology [address] [place] [address] Amber Orozco PA-C [address] [place] [address] [place] [address] 03/17/2023 3:40 PM EST Office Visit Family Medicine [address] [place] [phone] Cathy Fregoso MD [address] [place] [address] [place] [address] 03/31/2023 8:30 AM EST Office Visit Cardiology [address] [place] [address] Poli Zepeda PA-C [address] [place] [address] 04/25/2023 1:00 PM EST Office Visit Endocrinology, [place] [address] [facility] [place] [address] Deana Vargas MD [address] [place] [facility] [place] [address] 04/26/2023 2:00 PM EST Cardiac Studies Cardiology [address] [place] [address] [place] 132 [facility] [place] [address] 06/08/2023 2:00 PM EDT Laboratory Laboratory [address] [place] [phone] [place], Lab [address] [place] [address] 06/15/2023 2:30 PM EDT Office Visit Hematology/Oncology [facility] [place] [address] [place] [address] Matt Faustin MD [address] [place] [address] 06/24/2023 2:30 PM EDT Nurse Only Rheumatology [address] [place] [phone] [place], Nurse Rheum [address] [place] [phone] 09/26/2023 2:20 PM EDT Office Visit Nephrology [address] [place] [address] Josie Butler MD [address] [place] [address] 10/12/2023 3:00 PM EDT Office Visit Sleep Disorders Ctr [facility] [place] [address] [facility] [place] [phone] Isabel Diallo DO 132 [facility] [place] [address] Health Maintenance Due Date Last Done Comments COVID-19 Vaccine (#1) 1935 Depression Screening 05/30/2021 05/30/2020 DIG LEVEL FOR MEDICATION MONITORING YEARLY 03/08/2023 03/08/2022, 06/12/2021, 05/18/2021, Additional history exists Albumin/Creatinine Ratio 07/20/2023 023, 04/06/2021, 05/30/2020, Additional history exists DXA Scan 10/22/2023 10/21/2021, 02/2018, 12/29/2015, Additional history exists CKD PHOS USE SMARTSET 74930 11/06/202309/2022, 04/14/2022, 10/06/2021, Additional history exists CKD HGB USE SMARTSET 72936 12/15/202312/14, 12/14/2022, 07/19/2022, Additional history exists DTaP,Tdap,and Td Vaccines (2 - Td or Tdap) 12/31/2029 01/01/2020 (Declined), 12/30/2009, 12/30/2009, Additional history exists Pneumococcal Vaccine: 65+ Years Completed 02/08/2017, 02/23/2006 VITAMIN D LEVEL ONCE IN A LIFETIME-USE SMARTSET# 13887 Completed 11/05/2022, 04/14/2022, 03/08/2022, Additional history exists [...] this encounter Medical Devices Implanted Type Area Flexible Shaft Winder Device Identifier Shelf Expiration Date Model / Serial / Lot Pacer Advisa Dr Dorsey - [id number] - [id number] Implanted:Qty: 1 on 04/11/2017 by Elda Patterson, at OR [facility] Left: Chest [employer] 08/25/2018 A2DR01 / [id number] / documented as of this encounter Advance Directives Documents on File Type Date Recorded Patient Plans Examiner Expl anation POLST 01/05/2021 [place] [facility] FOR LIFE-SUSTAINING TREATMENT Latest Code Status on File Code Status Date Activated Date Inactivated Comments Full Code 07/02/2008 9:35 AM 07/03/2008 5:40 PM Care Teams Excellence Manager Relationship Specialty Start Date End Date Cathy Fregoso MD [address] [place] [address] [place] [address] PCP - General Family Medicine 12/03/22 documented as of this encounter
--- OUTSIDE RECORDS SUMMARY | 2023-05-27 20:52 | External Medical Summary | Summary of Care ---
Author Name Unknown Organization [facility] Address [address] [place] [address] Phone [phone] Care Team Providers Care Auto Top Mechanic Name Role Phone Cathy Wilburn MD Primary Care Provide r Encounter Details Date Type Department Care Team (Late st Contact Info) Description 01/20/2023 Result Scan Unspecified Department <No scans attached> Allergies Active Allergy Reactions [...] as of this encounter (statuses as of 01/21/2023) Medications Medication Sig Dispensed Refills Start Date [...] 40 MG Oral Tablet (Lipitor)Indications :Atherosclerosis of [place] coronary artery of [place] heart without angina pectoris,Dyslipidemi a, goal LDL below 70 Take 1 Tablet by mouth every evening. 30 Tablet 5 08/27/2022 Active Benzonatate 100 MG Oral CapsuleIndications:B ronchitis, complicated Take 1 Capsule by mouth 3 times a day as needed for Cough. 30 Capsule 09/01/2022 Active Furosemide 40 MG Oral Tablet (Lasix)Indications:D ependent edema Take 1 Tablet by mouth once a day on Tuesday, Tuesday, and Tuesday only. 60 Tablet 09/08/2022 Active Omeprazole 20 MG Oral Capsule Delayed Release (PriLOSEC)Indication s:Gastro-esophageal reflux disease without esophagitis Take 1 Capsule by mouth in the morning. 90 Capsule 09/22/2022 Active Metoprolol Succinate ER 100 MG [...] before bedtime. As instructed by the [facility]. 8 mL 0 11/24/2022 Active [...] as of this encounter (statuses as of 01/21/2023) Active Problems Problem Noted Date Diagnosed Date [...] lumbosacral intervertebral disc 02/04/2009 Coronary atherosclerosis of [place] coronary luis ry 02/24/2005 Senile osteoporosis 05/14/2003 Carpal tunnel syndrome 04/23/2003 Moderate mitral regurgitation GENERAL OSTEOARTHROSIS Gastroesophageal reflux disease without esophagi tis Vitamin D deficiency Hyperparathyroidism, primary documented as of this encounter (statuses as of 01/21/2023) Resolved Problems Problem Noted Date Diagnosed Date [...] Overview: RLP Parathyroid adenoma resection Benjy Gonzalez, DO July 02, 2008 ICD-10 update of inactive term Slow transit constipation 02/09/2008 Postmenopausal atrophic vaginitis 02/09/2008 07/15/2017 Hypercalcemia 07/14/2005 05/22/2007 PVC (premature ventricular contraction) 05/26/2005 04/21/2017 Ischemic cardiomyopathy 02/25/200507/29 ADVANCE DIRECTIVE INFORMATION 02/24/2005 02/08/2017 Overview: No, Advance Directive brochure given to patient at prior appointment. OSTEOARTHROS NOS-L-LEG 05/26/200406/20 TENOSYNOV HAND-WRIST NEC 04/23/2003 CERVICAL 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 LOC PRIM [id number] 02/14/200205/30 Other seborrheic keratosis 10/31/2001 0 06/06/2007 [...] as of this encounter (statuses as of 01/21/2023) Immunizations Name Administration Dates Next Due Pneumococcal [...] Care Team (Late st Contact Info) Description 02/04/2023 8:30 AM EST Laboratory Lab Mobile Phlebotomy [facility] [address] [place] [address] [facility] Mobile Home Draw [address] [place] [address] 02/07/2023 6:00 AM EST Anticoagulation Pharmacy Call Center [address] [place] [address] Cc[facility], [facility] [address] [facility] [place] [address] 03/17/2023 3:40 PM EST Office Visit Family Medicine [address] [place] [phone] Cathy Wilburn MD [address] [place] [address] [place] [address] 03/31/2023 8:30 AM EST Office Visit Cardiology [address] [place] [address] Poli Zepeda PA-C [address] [place] [address] 04/25/2023 1:00 PM EST Office Visit Endocrinology, [place] [address] [facility] [place] [address] Deana Vargas MD [address] [facility] [place] [address] 04/26/2023 2:00 PM EST Cardiac Studies Cardiology [address] [place] [address] [facility] [address] [facility] [place] [address] 06/08/2023 2:00 PM EDT Laboratory Laboratory [address] [place] [phone] [place], Lab [address] [place] [address] 06/15/2023 2:30 PM EDT Office Visit Hematology/Oncology [facility] [address] [place] [address] Matt Faustin MD [address] [place] [address] 06/24/2023 2:30 PM EDT Nurse Only Rheumatology [address] [place] [phone] [place], Nurse Rheum [address] [place] [phone] 09/26/2023 2:20 PM EDT Office Visit Nephrology [address] [place] [address] Josie Butler MD [address] [place] [address] 10/12/2023 3:00 PM EDT Office Visit Sleep Disorders Ctr [facility] [address] [place] [phone] Isabel Diallo DO [address] [place] [address] 01/23/2024 2:20 PM EST Office Visit Dermatology [address] [place] [address] Amber Orozco PA-C [address] [place] [address] [place] [address] Health Maintenance Due Date Last Done Comments COVID-19 Vaccine (#1) 1935 Depression Screening 05/30/2021 05/30/2020 DIG LEVEL FOR MEDICATION MONITORING YEARLY 03/08/2023 03/08/2022, 06/12/2021, 05/18/2021, Additional history exists Albumin/Creatinine Ratio 07/20/2023 023, 04/06/2021, 05/30/2020, Additional history exists DXA Scan 10/22/2023 10/21/2021, 02/2018, 12/29/2015, Additional history exists CKD PHOS USE SMARTSET 28428 11/06/20230 09/2022, 04/14/2022, 10/06/2021, Additional history exists CKD HGB USE SMARTSET 46065 12/15/202312/14, 12/14/2022, 07/19/2022, Additional history exists DTaP,Tdap,and Td Vaccines (2 - Td or Tdap) 12/31/2029 01/01/2020 (Declined), 12/30/2009, 12/30/2009, Additional history exists Pneumococcal Vaccine: 65+ Years Completed 02/08/2017, 02/23/2006 VITAMIN D LEVEL ONCE IN A LIFETIME-USE SMARTSET# [id number] Completed 11/05/2022, 04/14/2022, 03/08/2022, Additional history exists [...] this encounter Medical Devices Implanted Type Area Pet [employer] Deboner Device Identifier Shelf Expiration Date Model / Serial / Lot Pacer Advisa Dr Dorsey - [id number] - [id number] Implanted:Qty: 1 on 04/11/2017 by Elda Patterson DO at OR [facility] Left: Chest [employer] 08/25/2018 [id number] / [id number] / documented as of this encounter Procedures Procedure Name Priority Date/Time Associated Diagnosis Comments RADIOLOGY SCANNED RESULT 01/20/2023 RADIOLOGY SCANNED RESULT 01/20/2023 RADIOLOGY SCANNED RESULT 01/20/2023 documented in this encounter Results * RADIOLOGY SCANNED RESULT (01/20/2023) 01/20/2023 No Physician Data Unknown DIAGNOSTIC RAD IOLOGY SERVICES * RADIOLOGY SCANNED RESULT (01/20/2023) 01/20/2023 No Physician Data Unknown DIAGNOSTIC RAD IOLOGY SERVICES * RADIOLOGY SCANNED RESULT (01/20/2023) 01/20/2023 No Physician Data Unknown DIAGNOSTIC RAD IOLOGY SERVICES documented in this encounter Advance Directives Documents on File Type Date Recorded Patient Rehab Liaison Expl anation POLST 01/05/2021 [place] OR [facility] FOR LIFE-SUSTAINING TREATMENT Latest Code Status on File Code Status Date Activated Date Inactivated Comments Full Code 07/02/2008 9:35 AM 07/03/2008 5:40 PM Care Teams Auto Top Mechanic Relationship Specialty Start Date End Date Cathy Wilburn MD [address] [place] [address] [place] [phone] PCP - General Family Medicine 12/03/22 documented as of this encounter
--- OUTSIDE RECORDS SUMMARY | 2023-05-27 20:52 | External Medical Summary | Summary of Care ---
Author Name Unknown Organization [facility] Address [address] [place] [address] Phone [phone] Care Team Providers Care Shucker Name Role Phone Cathy Wilburn MD Primary Care Provide r Reason for Visit * Reason Onset Date Comments Test Results 12/31/2022 Encounter Details Date Type Department Care Team (Late st Contact Info) Description 12/31/2022 Telephone Endocrinology, [place] [address] [place] [address] Geraldine Hartley MD [address] [place] [address] Test Results Allergies Active Allergy Reactions Criticality [...] as of this encounter (statuses as of 01/03/2023) Medications Medication Sig Dispensed Refills Start Date [...] IN THE MORNING 30 Tablet 07/06/2022 Active Losartan Potassium 100 MG Oral Tablet (Cozaar) TAKE ONE TABLET BY MOUTH IN THE MORNING 30 Tablet 08/04/2022 Active amLODIPine Besylate 5 MG Oral Tablet (Norvasc) TAKE ONE TABLET BY MOUTH IN THE MORNING 30 Tablet 08/04/2022 Active Atorvastatin Calcium 40 MG Oral Tablet (Lipitor)Indications :Atherosclerosis of [place] coronary artery of [place] heart without angina pectoris,Dyslipidemi a, goal LDL [...] mg before bedtime. As instructed by the [facility]. 8 mL 0 11/24/2022 Active Warfarin Sodium 2 MG Oral Tablet (Jantoven) Take 1-2 Tablets by mouth every evening. 180 Tablet 1 12/31/2022 Active documented as of this encounter (statuses as of 01/03/2023) Active Problems Problem Noted Date Diagnosed Date [...] lumbosacral intervertebral disc 02/04/2009 Coronary atherosclerosis of [place] coronary luis ry 02/24/2005 Senile osteoporosis 05/14/2003 Carpal tunnel syndrome 04/23/2003 Moderate mitral regurgitation GENERAL OSTEOARTHROSIS Gastroesophageal reflux disease without esophagi tis Vitamin D deficiency Hyperparathyroidism, primary documented as of this encounter (statuses as of 01/03/2023) Resolved Problems Problem Noted Date Diagnosed Date [...] 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 LOC PRIM [id number] 02/14/200205/30 Other seborrheic keratosis 10/31/2001 0 06/06/2007 [...] as of this encounter (statuses as of 01/03/2023) Immunizations Name Administration Dates Next Due Pneumococcal [...] or making decisions? (5 years old or older No 04/11/2017 documented as of this encounter Miscellaneous Notes * Telephone Encounter - Nuvia Gaitan RN - 01/03/2023 12:36 PM EST Left message for return call to clinic. Nuvia Gaitan RN * Telephone Encounter - Geraldine Hartley MD - 12/31/2022 4:01 PM EDT Urinary calcium is still low however improved as compared to before Parathyroid hormone level also significantly improved Okay to be reviewed in an endocrinology appointment However since I will be leaving the practice on 01/28/2023 will need to establish with another endocrinology provider ---please let her know and arrange the appointment accordingly documented in this encounter Plan of Treatment Upcoming Encounters Date Type Department Care Team (Late st Contact Info) Description 01/14/2023 8:40 AM EST Laboratory Lab [place] [facility] [address] [place] [address] [facility] Home Draw [address] [place] [address] 01/17/2023 3:00 PM EST Office Visit Dermatology [address] [place] [address] Amber Orozco PA-C [address] [place] [address] [place] [address] 03/17/2023 3:40 PM EST Office Visit Family Medicine [address] [place] [phone] Cathy Wilburn MD [address] [place] [address] [place] [address] 03/31/2023 8:30 AM EST Office Visit Cardiology [address] [place] [address] Poli Zepeda PA-C [address] [place] [address] 04/25/2023 1:00 PM EST Office Visit Endocrinology, [place] [address] [place], [place] [phone] Deana Vargas MD [address] [place] [address] 04/26/2023 2:00 PM EST Cardiac Studies Cardiology [address] [place] [address] [facility] [address] [place] [address] 06/08/2023 2:00 PM EDT Laboratory Laboratory [address] [place] [phone] [place], Lab [address] [place] [address] 06/15/2023 2:30 PM EDT Office Visit Hematology/Oncology [employer] [address] [place] [address] Matt Faustin MD [address] [place] [address] 06/24/2023 2:30 PM EDT Nurse Only Rheumatology [address] [place] [phone] Luiz Nurse [address] [place] [phone] 09/26/2023 2:20 PM EDT Office Visit Nephrology [facility] [address] [place] [address] Josie Butler MD [address] [place] [address] 10/12/2023 3:00 PM EDT [facility] [address] [place] [phone] Isabel Diallo DO [address] [place] [address] Health Maintenance Due Date Last Done Comments COVID-19 Vaccine (#1) 1935 Depression Screening 05/30/2021 05/30/2020 DIG LEVEL FOR MEDICATION MONITORING YEARLY 03/08/2023 03/08/2022, 06/12/2021, 05/18/2021, Additional history exists Albumin/Creatinine Ratio 07/20/2023 023, 04/06/2021, 05/30/2020, Additional history exists DXA Scan 10/22/2023 10/21/2021, 02/2018, 12/29/2015, Additional history exists CKD PHOS USE SMARTSET 72276 11/06/20230 09/2022, 04/14/2022, 10/06/2021, Additional history exists CKD HGB USE SMARTSET 72788 12/15/202312/14, 12/14/2022, 07/19/2022, Additional history exists DTaP,Tdap,and Td Vaccines (2 - Td or Tdap) 12/31/2029 01/01/2020 (Declined), 12/30/2009, 12/30/2009, Additional history exists Pneumococcal Vaccine: 65+ Years Completed 02/08/2017, 02/23/2006 VITAMIN D LEVEL ONCE IN A LIFETIME-USE SMARTSET# 63090 Completed 11/05/2022, 04/14/2022, 03/08/2022, Additional history exists [...] this encounter Medical Devices Implanted Type Area Engineering Surveyor Device Identifier Shelf Expiration Date Model / Serial / Lot Pacer Advisa Dr Dorsey - [id number] - [id number] Implanted:Qty: 1 on 04/11/2017 by Elda Patterson DO at OR [facility] Left: Chest [employer] 08/25/2018 [id number] / [id number] / documented as of this encounter Advance Directives Documents on File Type Date Recorded Patient Psychotherapist Counselor Expl anation POLST 01/05/2021 [place] OR [facility] FOR LIFE-SUSTAINING TREATMENT Latest Code Status on File Code Status Date Activated Date Inactivated Comments Full Code 07/02/2008 9:35 AM 07/03/2008 5:40 PM Care Teams Shucker Relationship Specialty Start Date End Date Cathy Wilburn MD [address] [place] [address] [place] [phone] PCP - General Family Medicine 12/03/22 documented as of this encounter
--- OUTSIDE RECORDS SUMMARY | 2023-05-27 20:52 | External Medical Summary | Summary of Care ---
Author Name Unknown Organization [facility] Address [address] [facility] [address] Phone [phone] Care Team Providers Care Customer Solutions Supervisor Name Role Phone Maxwell Fregoso MD Primary Care Provide r Reason for Visit * Reason Comments Follow Up Full skin exam, mult concerns Encounter Details Date Type Department Care Team (Late st Contact Info) Description 01/17/2023 3:00 PM EST Office Visit Dermatology [address] [place] [address] Amber Orozco PA-C [address] [place] [address] [place] [address] Hx of nonmelanoma skin cancer*; Seborrheic keratosis; Multiple nevi; Skin exam, screening for cancer; H/O dysplastic nevus; Actinic keratosis Allergies Active Allergy Reactions Criticality Noted Date [...] as of this encounter (statuses as of 01/17/2023) Medications Medication Sig Dispensed Refills Start Date [...] 40 MG Oral Tablet (Lipitor)Indications :Atherosclerosis of zuni coronary artery of zuni heart without angina pectoris,Dyslipidemi a, goal LDL [...] mg before bedtime. As instructed by the [facility] Coumadin [facility]. 8 mL 0 11/24/2022 [...] as of this encounter (statuses as of 01/17/2023) Active Problems Problem Noted Date Diagnosed Date [...] lumbosacral intervertebral disc 02/04/2009 Coronary atherosclerosis of zuni coronary luis ry 02/24/2005 Senile osteoporosis 05/14/2003 Carpal tunnel syndrome 04/23/2003 Moderate mitral regurgitation GENERAL OSTEOARTHROSIS Gastroesophageal reflux disease without esophagi tis Vitamin D deficiency Hyperparathyroidism, primary documented as of this encounter (statuses as of 01/17/2023) Resolved Problems Problem Noted Date Diagnosed Date [...] 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 LOC PRIM [id number] 02/14/200205/30 Other seborrheic keratosis 10/31/2001 0 06/06/2007 [...] as of this encounter (statuses as of 01/17/2023) Immunizations Name Administration Dates Next Due Pneumococcal [...] this encounter Patient Instructions * Patient Instructions* Amber Orozco PA-C - 01/17/2023 3:14 PM EST SUNSCREEN USE AND SUN PROTECTION: 1. The best protection is sun avoidance. Seek shade if you can, especially between 10am to 4pm (peak sun hours). 2. Use sunscreen with an SPF (Sun Protection Factor - the number on most sunscreen bottles) of 30 or more that protects from Ultraviolet A (UVA) and Ultraviolet B (UVB) wavelength light (strongly recommend SPF 50). This is referred to as broad spectrum sun protection because it protects from most wa velengths in both spectrums of UVA and UVB light. Unfortunately, even though the protection is broad it is not complete, therefore making sun avoidance the best protection. UVB and UVA have both beenimplicated in causing skin cancers. Older sunscreens only protected from UVB and sunscreens with added UVA protection should contain Titanium dioxide, Zinc oxide, or Avobenzone. Other oil free, non-comedogenic lotion with SPF 30 or greater is fine. 3. Use sun protection if outside for 15 minutes or more. Apply 20-30 minutes before going out and reapply every 1-2 hours. No sunscreen is truly water ''proof'' and it will wash away with sweat, swimming and rubbing. 4. Wear tightly woven, loose fitting (cooler) long sleeved clothing, UV-blocking sun glasses (eyes need protection as well) and wide-brimmed hatwear (no straw hats with holes because light still getsthrough). Strongly recommended *Neutrogena Pure and Free Baby SPF 60 (have separate face and body lotions) orCeraVe AM facial lotion (with SPF 30). If looking for non toxic alternatives-look for non-daniel particle zinc. Product examples; Think sport, Think baby, Kari, Babo botanicals, Alba botanicals, [place] baby. "Baby" products can be used for all ages. Skin Cryosurgery (FREEZING) Instructions Most areas treated by freezing will need very little care. You may wash normally with soap and water and leave any small crusts in place. Vaseline to treated areas 2-3 times per day is a good idea, you do not need to keep them covered with bandages. If a large blister forms and breaks, you will want to apply a light dressing to the area. CHANGE DRESSING ONCE DAILY 1. Wash hands and remove the original dressing(s) in 12-24 hours. 2. Gently clean wound(s) with soap and water. Rinse with water and pat the wound dry. 3. Apply a thin layer of Vaseline ointment with a Q-tip. 4. Cover with a bandage if area(s) is not on the face or scalp. A dressing is not required on the face or scalp. Use non-adherent dressing and paper tape if you are sensitive to band-aid adhesive sensitive. 5. If you have any concerns about the healing wound, please either or our main Dermatology office in [place] at [phone]. If an emergency, please go to your nearest Emergency Department. documented in this encounter Progress Notes * Amber Orozco PA-C - 01/17/2023 3:00 PM EST SUBJECTIVE: History of Present Illness: Miranda Coe is a 87 year old female seen today for follow up of lesion/full skin exam. Previous office visit: 10/13/2020 Last attempted treatments include: NONE No vulvar exams performed, no vulvar discoloration and/or lesions to be assessed per pt. Scaly spot on nose that was cryoed by pcp. Moving Picture Producer Documentation Patient offered epic application coordinator and declined. REVIEW OF SYSTEMS: SKIN: No other new or changing moles. HEME/LYMPH: No new or enlarging lumps or bumps. CONSTITUTIONAL: No nausea, vomiting, fevers, chills, diarrhea. No recent unintended weight loss, night sweats, appetite or malaise. RESP: negative MSK/EXT: Negative or as per HPI GI: negative CV: Negative or as per HPI Rest of systems are negative or as per HPI SKIN CANCER HX: mildly dysplastic nevus (R thigh), basal cell carcinoma (upper central forehead), actinic keratoses Reviewed, same day as visit, 0 [facility] Dermatology lab work(s)/pathology report(s) as well as those sent by referring provider prior to seeing pt. MEDICA TIONS: Current Outpatient Medications Medication Sig Dispense Refill [...] mg before bedtime. As instructed by the [facility]. 8 mL 0 Warfarin Sodium 2 MG Oral Tablet (Jantoven) Take 1-2 Tablets by mouth every evening. 180 Tablet 1 amLODIPine Besylate 5 MG Oral Tablet (Norvasc) TAKE ONE TABLET IN THE MORNING 90 Tablet 0 Losartan Potassium 100 MG Oral Tablet (Cozaar) TAKE ONE TABLET IN THE MORNING 90 Tablet 0 No current facility-administered medications for this visit. ALLERG IES: Alendronate sodium, Morphine and related, Thiazide-type diuretics, Boniva [ibandronate sodium], Zetia [ezetimibe],Zocor [simvastatin], Amiodarone, Iodinated contrast media, Metoprolol tartrate, Red dye, and Erythromycin OBJECT YUMI: GEN: alert, no distress, appears oriented, pleasant, cooperative, and ambulating with a cane. SKIN: Detailed exam of hair, face including lids and lips, neck, chest, abdomen, back, bilateral upper ext. (arm, hand, fingers), bilateral lower ext. (leg, foot, toes), palpation of scalp, fingernails, toenail kiswahili present, inguinal areas, groin (mons pubis), buttocks, and anus completed: 1. L nasal sidewall-2mm white scaly papule. 2. R arch of foot- 4x5mm pink-light brown soft papule 3. Trunk/bilat arms and legs (L anterior upper thigh)- About 90 total 2-5mm light-medium brown macules, about 10 with slightly irregular borders. 4. Face (L nose/forehead)/bilat arms and legs/ trunk- Many 3mm-1cm sharply defined, variegated brown, waxy flat papules with velvety to finely verrucous surfaces. ASSESS MENT/PLAN: 1. Actinic keratosis on L nasal sidewall-Cryosurgery explained to the patient. Discussed risk of blistering, crusting, infection, scarring, reoccurrence of lesions, hypopigmentation, post inflammatory hyperpigmentation with pt prior to procedure. Verbal consent obtained. Time out called immediatelyprior to procedure and patient identification and site verified. Cryo therapy performed with LiquidNitrogen via cryo spray unit to lesion (s) noted above. Location noted in physical exam. Post op course explained. 2. Nevus on R arch of foot- Present since childhood and has not changed per pt. Dermoscopy picture taken at previous office visit. Will continue to follow at skin exams. 3. Nevi on trunk/bilat arms and legs- Approximately 10 atypical nevi out of 90 total nevi, but all uniform. None that are more atypical than the others that would need to be removed for pathologic confirmation, but would benefit from yearly skin checks to follow changes. Skin cancer brochure given (at previous office visit, pt declined need for another one) and ABCDE'sdiscussed with patient. Annual full body skin examination (unless I recommended otherwise), self-examination, and sun protection (SPF 30+ daily to sun exposed areas, with reapplication every 1-2 hours when out in sun for long periods of time) advised and discussed. Recommended sooner follow up for new or changing lesions. These changes include rapid enlargement, changes in color or shape or symptoms, bleeding, or other concerns. The common features and behavior of non-melanoma skin cancers (e.g. BCC/SCC) as well as the ABCDEs and ugly duckling features of melanoma were also reviewed. 4. Seborrheic/Benign Keratosis(-es) on face/bilat arms and legs/trunk-no tx needed, pt given reassurance. Patient alone today. Photo(s) of #1-4 taken, pt verbally consented to having photo(s) taken. Follow-up: 1 year for full skin exam Applicable photos (if any) and chart reviewed by Dr. Yan Nelson. Presumed diagnoses, expected natural histories, and management options discussed with the patient at length. Questions were addressed and anticipatory guidance provided. They were instructed to contact me if additional questions, concerns, or problems develop in the interim. -There were no barriers to learning and no other pain was related to today's visit. The patient and/or person accompanying patient demonstrates understanding of the visit and treatment. Amber Orozco PA-C 01/17/2023 12:10 PM Ref: SELF[[id number]] NO STREET ADDRESS AVAILABLE None (office) None (fax) PCP: MAXWELL FREGOSO [address] [place] [address] [place] [address] documented in this encounter Nursing Notes * Saundra Dorado LPN - 01/17/2023 2:58 PM EST Patient identified by full name and date of . Chief Complaint Patient presents with Follow Up Full skin exam, mult concerns documented in this encounter Miscellaneous Notes * Addendum Note - Saundra Dorado LPN - 01/17/2023 3:42 PM ESTAddended by: SAUNDRA DORADO on: 01/17/2023 03:42 PM Modules accepted: Orders documented in this encounter Plan of Treatment Upcoming Encounters Date Type Department Care Team (Late st Contact Info) Description 02/04/2023 8:30 AM EST Laboratory Lab Mobile Phlebotomy [facility] [address] [place] [address] [facility] Mobile Home Draw [address] [facility] N[place] [facility] [address] 02/07/2023 6:00 AM EST Anticoagulation Pharmacy Call Center [phone] [place] [address] [facility] 58 60 [facility] [place] [address] 03/17/2023 3:40 PM EST Office Visit Family Medicine [address] [place] [phone] Maxwell Fregoso MD [address] [place] [address] [place] [address] 03/31/2023 8:30 AM EST Office Visit Cardiology [address] [place] [address] Poli Zepeda PA-C [address] [place] [address] 04/25/2023 1:00 PM EST Office Visit Endocrinology, [place] [address] [place] [address] Deana Vargas MD [address] [place], [place] [id number] 04/26/2023 2:00 PM EST Cardiac Studies Cardiology [address] [place] [address] Lucia Jimenez [facility] [address] [place] [address] 06/08/2023 2:00 PM EDT Laboratory Laboratory [address] [place] [phone] [facility] Lab [address] [place] [address] 06/15/2023 2:30 PM EDT Office Visit Hematology/Oncology [facility] Gardiner [address] [place] [address] Matt Faustin MD [address] [place] [address] 06/24/2023 2:30 PM EDT Nurse Only Rheumatology [address] [place] [phone] [place], Nurse [address] [place] [phone] 09/26/2023 2:20 PM EDT Office Visit Nephrology [address] [place] [address] Josie Butler MD [address] [place] [address] 10/12/2023 3:00 PM EDT Office Visit Sleep Disorders Ctr [facility] [address] [place] [phone] Isabel Diallo DO [address] [place] [address] 01/23/2024 2:20 PM EST Office Visit Dermatology [address] [place] [address] Amber Orozco PA-C [address] [place] [address] [place] [address] Health Maintenance Due Date Last Done Comments COVID-19 Vaccine (#1) 1935 Depression Screening 05/30/2021 05/30/2020 DIG LEVEL FOR MEDICATION MONITORING YEARLY 03/08/2023 03/08/2022, 06/12/2021, 05/18/2021, Additional history exists Albumin/Creatinine Ratio 07/20/2023 023, 04/06/2021, 05/30/2020, Additional history exists DXA Scan 10/22/2023 10/21/2021, 02/2018, 12/29/2015, Additional history exists CKD PHOS USE SMARTSET 40908 11/06/20230 09/2022, 04/14/2022, 10/06/2021, Additional history exists CKD HGB USE SMARTSET 18791 12/15/202312/14, 12/14/2022, 07/19/2022, Additional history exists DTaP,Tdap,and Td Vaccines (2 - Td or Tdap) 12/31/2029 01/01/2020 (Declined), 12/30/2009, 12/30/2009, Additional history exists Pneumococcal Vaccine: 65+ Years Completed 02/08/2017, 02/23/2006 VITAMIN D LEVEL ONCE IN A LIFETIME-USE SMARTSET# 93880 Completed 11/05/2022, 04/14/2022, 03/08/2022, Additional history exists [...] this encounter Medical Devices Implanted Type Area Balance And Hairspring Assembler Device Identifier Shelf Expiration Date Model / Serial / Lot Pacer Advisa Dr Dorsey - [id number] - [id number] Implanted:Qty: 1 on 04/11/2017 by Elda Patterson DO at OR [facility] Left: Chest [employer] 08/25/2018 [id number] / [id number] / documented as of this encounter Procedures Procedure Name Priority Date/Time Associated Diagnosis Comments DERM IMAGE (SITE) Routine 01/17/2023 Seborrheic keratosis Multiple nevi Skin exam, screening for cancer Hx of nonmelanoma skin cancer H/O dysplastic nevus Actinic keratosis documented in this encounter Results * DERM IMAGE (SITE) (01/17/2023) 01/17/2023 Amber Orozco PA-C DIGITAL PHOTOG YUKO documented in this encounter Visit Diagnoses Diagnosis Hx of nonmelanoma skin cancer- Primary Personal history of other malignant neoplasm of skin Seborrheic keratosis Other seborrheic keratosis Multiple nevi Benign neoplasm of skin, site unspecified Skin exam, screening for cancer Screening for malignant neoplasm of the skin H/O dysplastic nevus Personal history of diseases of skin and subcutaneous tissue Actinic keratosis documented in this encounter Advance Directives Documents on File Type Date Recorded Patient Project Architect Expl anation POLST 01/05/2021 [place] [facility] FOR LIFE-SUSTAINING TREATMENT Latest Code Status on File Code Status Date Activated Date Inactivated Comments Full Code 07/02/2008 9:35 AM 07/03/2008 5:40 PM Care Teams Customer Solutions Supervisor Relationship Specialty Start Date End Date Maxwell Fregoso MD [address] [place] [address] [place] [address] PCP - General Family Medicine 12/03/22 documented as of this encounter
--- OUTSIDE RECORDS SUMMARY | 2023-05-27 20:52 | External Medical Summary | Summary of Care ---
Author Name Unknown Organization [facility] Address [address] [facility] [place] [address] Phone [phone] Care Team Providers Care Rn Diabetes Educator Name Role Phone Maxwell Fregoso MD Primary Care Provide r Reason for Visit * Reason Comments Follow Up Full skin exam, mult concerns Encounter Details Date Type Department Care Team (Late st Contact Info) Description 01/17/2023 3:00 PM EST Office Visit Dermatology [address] [place] [address] Amber Orozco PA-C [address] [place] [address] [place] [address] Hx of nonmelanoma skin cancer*; Seborrheic keratosis; [...] 40 MG Oral Tablet (Lipitor)Indications :Atherosclerosis of [place] coronary artery of [place] heart without angina pectoris,Dyslipidemi a, goal LDL [...] mg before bedtime. As instructed by the [facility] Coumadin Clinic. 8 mL 0 [...] lumbosacral intervertebral disc 02/04/2009 Coronary atherosclerosis of [place] coronary luis ry 02/24/2005 Senile osteoporosis 05/14/2003 [...] 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 LOC PRIM [id number] 02/14/200205/30 Other seborrheic keratosis 10/31/2001 0 06/06/2007 [...] either or our main Dermatology office in [place] at [phone]. If an emergency, please go to your nearest Emergency Department. documented in this encounter Progress Notes * Amber Orozco PA-C - 01/17/2023 3:00 PM EST SUBJECTIVE: History of Present Illness: Miradna Coe is a 87 year old female seen today for follow up of lesion/full skin exam. Previous office visit: 10/13/2020 Last attempted treatments include: NONE No vulvar exams performed, no vulvar discoloration and/or lesions to be assessed per pt. Scaly spot on nose that was cryoed by pcp. 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 REVIEW OF SYSTEMS: SKIN: No [...] keratoses Reviewed, same day as visit, 0 [facility] Dermatology lab work(s)/pathology report(s) as well as [...] mg before bedtime. As instructed by the [facility]madin [facility]. 8 mL 0 [...] foot, toes), palpation of scalp, fingernails, toenail moldovan present, inguinal areas, groin (mons pubis), buttocks, [...] Amber Orozco PA-C 01/17/2023 12:10 PM Ref: SELF[[id number]] NO STREET ADDRESS AVAILABLE None (office) None (fax) PCP: MAXWELL FREGOSO [address] [place] [address] [place] [address] [phone] documented in this encounter Nursing Notes * Saundra Sánchez LPN - 01/17/2023 2:58 PM EST Patient identified by full name and date of . Chief Complaint Patient presents with Follow Up Full skin exam, mult concerns documented in this encounter Plan of Treatment Upcoming Encounters Date Type Department Care Team (Late st Contact Info) Description 02/04/2023 8:30 AM EST Laboratory Lab Mobile Phlebotomy [facility] [address] [place] [address] [facility] Mobile Home Draw [address] [place] [address] 02/07/2023 6:00 AM EST Anticoagulation Pharmacy Call Center [phone] [facility] [address] [facility], [facility] 58 60 [facility] [place] [address] 03/17/2023 3:40 PM EST Office Visit Family Medicine [address] [place] [phone] Maxwell Fregoso MD [address] [place] [address] [place] [address] 03/31/2023 8:30 AM EST Office Visit Cardiology [address] [place] [address] Poli Zepeda PA-Zeb [address] [place] [address] 04/25/2023 1:00 PM EST Office Visit Endocrinology, [place] [address] [place], [place] [phone] Deana Vargas MD [address], [place] [phone] 04/26/2023 2:00 PM EST Cardiac Studies Cardiology [address] [place] [address] [facility] [address] [facility] [place] [address] 06/08/2023 2:00 PM EDT Laboratory Laboratory [address] [place] [phone] [place], Lab [address] [place] [address] 06/15/2023 2:30 PM EDT Office Visit Hematology/Oncology [facility] [address] [facility] [place] [address] Matt Faustin MD [address] [place] [address] 06/24/2023 2:30 PM EDT Nurse Only Rheumatology [address] [place] [phone] [place], Nurse [address] [place] [phone] 09/26/2023 2:20 PM EDT Office Visit Nephrology [address] [place] [address] Josie Butler MD [address] [place] [address] 10/12/2023 3:00 PM EDT Office Visit Sleep Disorders Ctr [facility] [address] [place] [phone] Isabel Diallo, [address] [place] [address] 01/23/2024 2:20 PM EST Office Visit Dermatology [address] [place] [address] Amber Orozco PA-C [address] [place] [address] [place] [address] Health Maintenance Due Date Last Done Comments COVID-19 Vaccine (#1) 1935 Depression Screening 05/30/2021 05/30/2020 DIG LEVEL FOR MEDICATION MONITORING YEARLY 03/08/2023 03/08/2022, 06/12/2021, 05/18/2021, Additional history exists Albumin/Creatinine Ratio 07/20/2023 023, 04/06/2021, 05/30/2020, Additional history exists DXA Scan 10/22/2023 10/21/2021, 0702/2018, 12/29/2015, Additional history exists CKD PHOS USE SMARTSET 13936 11/06/2023 090 09/2022, 04/14/2022, 10/06/2021, Additional history exists CKD HGB USE SMARTSET 46835 12/15/202312/14, 12/14/2022, 07/19/2022, Additional history exists DTaP,Tdap,and Td Vaccines (2 - Td or Tdap) 12/31/2029 01/01/2020 (Declined), 12/30/2009, 12/30/2009, Additional history exists Pneumococcal Vaccine: 65+ Years Completed 02/08/2017, 02/23/2006 VITAMIN D LEVEL ONCE IN A LIFETIME-USE SMARTSET# 49437 Completed 11/05/2022, 04/14/2022, 03/08/2022, Additional history exists [...] this encounter Medical Devices Implanted Type Area Software Engineer Mobile Device Identifier Shelf Expiration Date Model / Serial / Lot Pacer Advisa Dr Dorsey - [id number] - [id number] Implanted:Qty: 1 on 04/11/2017 by Elda Patterson DO at OR [facility] Left: Chest [employer] 08/25/2018 [id number] / [id number] / documented as of this encounter Visit Diagnoses Diagnosis Hx of [...] Documents on File Type Date Recorded 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
--- OUTSIDE RECORDS SUMMARY | 2023-05-27 20:52 | External Medical Summary | Summary of Care ---
Author Name Unknown Organization [facility] Address [address] [place] [address] Phone [phone] Care Team Providers Care Vice President For Instruction Name Role Phone Cathy Wilburn MD Primary Care Provide r Reason for Visit * Reason Comments Dosage Adjustment Via Phone (anticoag Cl inic) Encounter Details Date Type Department Care Team (Latest Contact Info) Description 01/17/2023 6:00 AM EST Anticoagulation Pharmacy Call Center [phone] [place] [address] [facility] 58 60 [address] [facility] [place] [address] Paroxysmal atrial fibrillation (HCC)* Allergies Active Allergy [...] 40 MG Oral Tablet (Lipitor)Indications :Atherosclerosis of [place] coronary artery of [place] heart without angina pectoris,Dyslipidemi a, goal LDL [...] mg before bedtime. As instructed by the [facility] Coumadin Clinic. 8 mL 0 11/24/2022 [...] lumbosacral intervertebral disc 02/04/2009 Coronary atherosclerosis of [place] coronary luis ry 02/24/2005 Senile osteoporosis 05/14/2003 [...] 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 LOC PRIM [id number] 02/14/200205/30 Other seborrheic keratosis 10/31/2001 0 06/06/2007 [...] as of this encounter Progress Notes * Lissette Moreira PHARM Tech - 01/17/2023 8:03 AM EST Contacts Type Contact Phone/Fax 01/17/2023 08:01 AM EST Phone (Outgoing) Miranda Coe (Self) [phone] (M) Subjective Patient Findings Negatives: Signs/symptoms of bleeding, Change in health, Change in activity, Upcoming invasive procedure, Missed doses, Extra doses, Change in medications, Change in diet/appetite, Bruising Advised patient to contact Anticoagulation Clinic if any unusual bruising or bleeding, recent illness, changes in medication, or questions/concerns. PT/INR results, Coumadin dose instructions, and next PT/INR date communicated as noted by Pharmacist: Yes REBECA LOUISE 01/17/2023, 8:03 AM * Vonnie Lam RPh - 01/17/2023 7:56 AM EST Coumadin Clinic (region specific) Objective Current Warfarin Dose As of 01/17/2023 Warfarin maintenance plan: 4 mg (2 mg x 2) every Mon, Wed, Fri; 2 mg (2 mg x 1) all other days INR Result As of 01/17/2023 INR goal: 2.0-3.0 INR used for dosin.3 (01/14/2023) Assessment & Plan Warfarin Plan As of 01/17/2023 Full warfarin instructions: 4 mg every Mon, Wed, Fri; 2 mg all other days No change documented: Vonnie Lam marleen Next INR check: 02/04/2023 Repeat PT/INR in 3 week(s) Weekly dose: not changed Additional Dosing Information: Description [facility] to contact patient with dose instructions as noted. Vonnie Lam RPh 01/17/2023, 7:56 AM documented in this encounter Plan of Treatment Upcoming Encounters Date Type Department Care Team (Late st Contact Info) Description 01/17/2023 3:00 PM EST Office Visit Dermatology [address] [place] [address] Amber Orozco PA-C [address] [place] [address] [place] [address] 02/07/2023 6:00 AM EST Anticoagulation Pharmacy Call Center [phone] [facility] [place] [address] [facility] 58 60 [facility] [place] [address] 03/17/2023 3:40 PM EST Office Visit Family Medicine [address] [place] [phone] Cathy Wilburn MD [address] [place] [address] [place] [address] 03/31/2023 8:30 AM EST Office Visit Cardiology [address] [place] [address] Poli Zepeda PA-C [address] [place] [address] 04/25/2023 1:00 PM EST Office Visit Endocrinology, [place] [address] [place] [address] Deana Vargas MD [address] [place], [place] [id number] 04/26/2023 2:00 PM EST Cardiac Studies Cardiology [address] [place] [address] Lucia Jimenez [facility] [place] [address] 06/08/2023 2:00 PM EDT Laboratory Laboratory [address] [place] [phone] [place], Lab [address] [place] [address] 06/15/2023 2:30 PM EDT Office Visit Hematology/Oncology [facility] Tara Firth [address] [place] [address] Matt Faustin MD [address] [place] [address] 06/24/2023 2:30 PM EDT Nurse Only Rheumatology [address] [place] [phone] [place], Nurse Rheum [address] [place] [phone] 09/26/2023 2:20 PM EDT Office Visit Nephrology [address] [place] [address] Josie Butler MD [address] [place] [address] 10/12/2023 3:00 PM EDT Office Visit Sleep Disorders Ctr [facility] [place] [address] [place] [phone] Isabel Diallo DO 132 [place] [address] Health Maintenance Due Date Last Done Comments COVID-19 Vaccine (#1) 1935 Depression Screening 05/30/2021 05/30/2020 DIG LEVEL FOR MEDICATION MONITORING YEARLY 03/08/2023 03/08/2022, 06/12/2021, 05/18/2021, Additional history exists Albumin/Creatinine Ratio 07/20/2023 023, 04/06/2021, 05/30/2020, Additional history exists DXA Scan 10/22/2023 10/21/2021, 02/2018, 12/29/2015, Additional history exists CKD PHOS USE SMARTSET 25873 11/06/20230 09/2022, 04/14/2022, 10/06/2021, Additional history exists CKD HGB USE SMARTSET 70641 12/15/202312/14, 12/14/2022, 07/19/2022, Additional history exists DTaP,Tdap,and Td Vaccines (2 - Td or Tdap) 12/31/2029 01/01/2020 (Declined), 12/30/2009, 12/30/2009, Additional history exists Pneumococcal Vaccine: 65+ Years Completed 02/08/2017, 02/23/2006 VITAMIN D LEVEL ONCE IN A LIFETIME-USE SMARTSET# 11073 Completed 11/05/2022, 04/14/2022, 03/08/2022, Additional history exists [...] this encounter Medical Devices Implanted Type Area Drug Abuse Social Worker Device Identifier Shelf Expiration Date Model / Serial / Lot Pacer Advisa Dr Dorsey - [id number] - [id number] Implanted:Qty: 1 on 04/11/2017 by Elda Patterson DO at OR [facility] Left: Chest [employer] 08/25/2018 [id number] / [id number] / documented as of this encounter Visit Diagnoses Diagnosis Paroxysmal atrial fibrillation (HCC)- Primary Atrial fibrillation documented in this encounter Advance Directives Documents on File Type Date Recorded Patient Manager Inventory Management Expl anation POLST 01/05/2021 [place] OR [facility] FOR LIFE-SUSTAINING TREATMENT Latest Code Status on File Code Status Date Activated Date Inactivated Comments Full Code 07/02/2008 9:35 AM 07/03/2008 5:40 PM Care Teams Vice President For Instruction Relationship Specialty Start Date End Date Cathy Wilburn MD [address] [place] [address] [place] [address] PCP - General Family Medicine 12/03/22 documented as of this encounter
--- OUTSIDE RECORDS SUMMARY | 2023-05-27 20:52 | External Medical Summary | Summary of Care ---
Author Name Unknown Organization [facility] Address [address] [place] [address] Phone [phone] Care Team Providers Care Smoking Pipe Coater Name Role Phone Cathy Wilburn MD Primary Care Provide r Reason for Visit * Reason Onset Date Comments Test Results 12/31/2022 Encounter Details Date Type Department Care Team (Late st Contact Info) Description 12/31/2022 Telephone Endocrinology, [place] [address] [place] [address] Geraldine Hartley MD [address] [place] [address] Test Results Allergies Active Allergy [...] 40 MG Oral Tablet (Lipitor)Indications :Atherosclerosis of [place] coronary artery of [place] heart without angina pectoris,Dyslipidemi a, goal LDL [...] instructed by the [facility] Coumadin [facility]. 8 mL 0 11/24/2022 Active [...] 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 LOC PRIM [id number] 02/14/200205/30 Other seborrheic keratosis 10/31/2001 0 06/06/2007 [...] Encounter - Nuvia Gaitan RN - 01/03/2023 12:51 PM EST Pt returned call. Relayed message below from Dr. Hartley. Pt verbalizes understanding and agrees with plan of care. Nuvia Gaitan RN * Telephone Encounter - Nuvia Gaitan RN - 01/03/2023 12:36 PM EST Left message for return call to clinic. Nuvia Gaitan RN * Telephone Encounter - Grealdine Hartley MD - 12/31/2022 4:01 PM EDT [...] 8:40 AM EST Laboratory Lab Mobile Phlebotomy [facility] [address] [place] [address] [facility] Home Draw [address] [place] [address] 01/17/2023 3:00 PM EST Office Visit Dermatology [address] [place] [address] Amber Orozco PA-C [address] [place] [address] [place] [address] 03/17/2023 3:40 PM EST Office Visit Family Medicine [address] [place] [phone] Cathy Wilburn MD [address] [place] [address] [place] [address] 03/31/2023 8:30 AM EST Office Visit Cardiology [address] [place] [address] Poli Zepeda PA-C [address] [place] [address] 04/25/2023 1:00 PM EST Office Visit Endocrinology, [place] [address] [place], [place] [phone] Deana Vargas MD [address] [place], [place] [phone] 04/26/2023 2:00 PM EST Cardiac Studies Cardiology [address] [place] [address] Lucia Jimenez [facility] [address] [place] [address] 06/08/2023 2:00 PM EDT Laboratory Laboratory [address] [place] [phone] [facility] [address] [place] [address] 06/15/2023 2:30 PM EDT Office Visit Hematology/Oncology [facility] [place] [address] [place] [address] Matt Faustin MD [address] [place] [address] 06/24/2023 2:30 PM EDT Nurse Only Rheumatology [address] [place] [phone] [place], Nurse [address] [place] [phone] 09/26/2023 2:20 PM EDT Office Visit Nephrology [address] [place] [address] Josie Butler MD [address] [place] [address] 10/12/2023 3:00 PM EDT Office Visit Sleep Disorders Ctr Alexis [facility] [place] [address] [place] [phone] Isabel Diallo DO [address] [place] [address] Health Maintenance Due Date Last Done Comments COVID-19 Vaccine (#1) 1935 Depression Screening 05/30/2021 05/30/2020 DIG LEVEL FOR MEDICATION MONITORING YEARLY 03/08/2023 03/08/2022, 06/12/2021, 05/18/2021, Additional history exists Albumin/Creatinine Ratio 07/20/2023 023, 04/06/2021, 05/30/2020, Additional history exists DXA Scan 10/22/2023 10/21/2021, 02/2018, 12/29/2015, Additional history exists CKD PHOS USE SMARTSET 82290 11/06/20230 09/2022, 04/14/2022, 10/06/2021, Additional history exists CKD HGB USE SMARTSET 56262 12/15/202312/14, 12/14/2022, 07/19/2022, Additional history exists DTaP,Tdap,and Td Vaccines (2 - Td or Tdap) 12/31/2029 01/01/2020 (Declined), 12/30/2009, 12/30/2009, Additional history exists Pneumococcal Vaccine: 65+ Years Completed 02/08/2017, 02/23/2006 VITAMIN D LEVEL ONCE IN A LIFETIME-USE SMARTSET# 95987 Completed 11/05/2022, 04/14/2022, 03/08/2022, Additional history exists [...] this encounter Medical Devices Implanted Type Area Centrifugal Station Operator Device Identifier Shelf Expiration Date Model / Serial / Lot Pacer Advisa Dr Dorsey - [id number] - [id number] Implanted:Qty: 1 on 04/11/2017 by Elda Patterson DO at OR [facility] Left: Chest [employer] 08/25/2018 [id number] / [id number] / documented as of this encounter Advance Directives Documents on File Type Date Recorded Patient Marketing Database Consultant Expl anation POLST 01/05/2021 [place] OR [facility] FOR LIFE-SUSTAINING TREATMENT Latest Code Status on File Code Status Date Activated Date Inactivated Comments Full Code 07/02/2008 9:35 AM 07/03/2008 5:40 PM Care Teams Smoking Pipe Coater Relationship Specialty Start Date End Date Cathy Wilburn MD [address] [place] [address] [place] [phone] PCP - General Family Medicine 12/03/22 documented as of this encounter
--- OUTSIDE RECORDS SUMMARY | 2023-05-27 20:52 | External Medical Summary ---
Author Name Unknown Address Unknown Organization [facility] [address] [place] [address] Laboratory Report Ordering Provider Test Date Status LETICIA MADRIGAL 01/14/2023 10:05:00 Final Standing order for pt/inr. < br/>Please draw pt/inr every 1 to 4 weeks as requested
Results to [facility]

Warfarin Therapy
INR: 2.0-3.0 conventional anticoagulation
INR: 2.5-3.5 high intensity anticoagulation Observation Date Value Abnormality Reference (Units ) Status PT 01/14/2023 10:05:00 25.6 Above high normal 11 .6-15.2 (seconds) Final INR 01/14/2023 10:05:00 2.3 Above high normal 0. 8-1.2 Final Performing Location [facility] [address] [place] [address]
--- OUTSIDE RECORDS SUMMARY | 2023-05-27 20:52 | External Medical Summary | Summary of Care ---
Author Name Unknown Organization [facility] Address [address] [facility] [address] Phone [phone] Care Team Providers Care Marketing And Development Coordinator Name Role Phone Cathy Fregoso MD Primary Care Provide r Reason for Visit * Reason Comments Follow Up Full skin exam, mult concerns Encounter Details Date Type Department Care Team (Late st Contact Info) Description 01/17/2023 3:00 PM EST Office Visit Dermatology [address] [place] [address] Amber Orozco PA-C [address] [place] [address] [place] [address] Hx of nonmelanoma skin cancer*; Seborrheic keratosis; [...] as of this encounter (statuses as of 01/18/2023) Medications Medication Sig Dispensed Refills Start Date [...] 40 MG Oral Tablet (Lipitor)Indications :Atherosclerosis of [place] coronary artery of [place] heart without angina pectoris,Dyslipidemi a, goal LDL [...] bedtime. As instructed by the [facility] Coumadin Clinic. 8 mL 0 11/24/2022 Active [...] as of this encounter (statuses as of 01/18/2023) Active Problems Problem Noted Date Diagnosed Date [...] lumbosacral intervertebral disc 02/04/2009 Coronary atherosclerosis of [place] coronary luis ry 02/24/2005 Senile osteoporosis 05/14/2003 Carpal tunnel syndrome 04/23/2003 Moderate mitral regurgitation GENERAL OSTEOARTHROSIS Gastroesophageal reflux disease without esophagi tis Vitamin D deficiency Hyperparathyroidism, primary documented as of this encounter (statuses as of 01/18/2023) Resolved Problems Problem Noted Date Diagnosed Date [...] 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 LOC PRIM [id number] 02/14/200205/30 Other seborrheic keratosis 10/31/2001 0 06/06/2007 [...] as of this encounter (statuses as of 01/18/2023) Immunizations Name Administration Dates Next Due Pneumococcal [...] either or our main Dermatology office in [place] at [phone]. If an emergency, please go to your nearest Emergency Department. documented in this encounter Progress Notes * Yan Nelson MD - 01/18/2023 9:03 AM EST I have seen and examined the patient via teledermatology review of chart note and photos with Amber Orozco PA-C. I have reviewed and agree with the assessment and plan. * Amber Orozco PA-C - 01/17/2023 3:00 PM EST SUBJECTIVE: History of Present Illness: Miranda Coe is a 87 year old female seen today for follow up of lesion/full skin exam. Previous office visit: 10/13/2020 Last attempted treatments include: NONE No vulvar exams performed, no vulvar discoloration and/or lesions to be assessed per pt. Scaly spot on nose that was cryoed by pcp. Airline Counter Agent Documentation Patient offered dredge engineer and declined. REVIEW OF SYSTEMS: SKIN: No [...] keratoses Reviewed, same day as visit, 0 [facility] Dermatology lab work(s)/pathology report(s) as well as [...] bedtime. As instructed by the [facility] Coumadin Clinic. 8 mL 0 Warfarin Sodium [...] foot, toes), palpation of scalp, fingernails, toenail danish present, inguinal areas, groin (mons pubis), buttocks, [...] Amber Orozco PA-C 01/17/2023 12:10 PM Ref: SELF[[id number]] NO STREET ADDRESS AVAILABLE None (office) None (fax) PCP: DINORAH FREGOS[address] [place] [address] documented in this encounter [...] 8:30 AM EST Laboratory Lab Mobile Phlebotomy [address] [address] [facility] Mobile Home Draw [address] [place] [address] 02/07/2023 6:00 AM EST Anticoagulation Pharmacy Call Center WB [phone] [facility] [place] [address] [facility], [facility] 58 60 [facility] [place] [address] 03/17/2023 3:40 PM EST Office Visit Family Medicine [address] [place] [phone] Cathy Fregoso MD [address] [place] [address] [place] [address] 03/31/2023 8:30 AM EST Office Visit Cardiology [address] [place] [address] Poli Zepeda PA-C [address] [place] [address] 04/25/2023 1:00 PM EST Office Visit Endocrinology, [place] [address] [place] [address] Deana Vargas MD [address] [place] [address] 04/26/2023 2:00 PM EST Cardiac Studies Cardiology [address] [place] [address] Lucia Jimenez [facility] [address] [place] [address] 06/08/2023 2:00 PM EDT Laboratory Laboratory [address] [place] [phone] [facility] Lab [address] [place] [address] 06/15/2023 2:30 PM EDT Office Visit Hematology/Oncology [facility] [address] [place] [address] Matt Faustin MD [address] [place] [address] 06/24/2023 2:30 PM EDT Nurse Only Rheumatology [address] [place] [phone] [place], Nurse Rheum [address] [place] [phone] 09/26/2023 2:20 PM EDT Office Visit Nephrology [address] [place] [address] Josie Butler MD [address] [place] [address] 10/12/2023 3:00 PM EDT [facility] [address] [place] [phone] Isabel Diallo DO [address] [place] [address] 01/23/2024 2:20 PM EST Office Visit Dermatology [address] [place] [address] Amber Orozco PA-C [address] [place] [address] [place] [address] Health Maintenance Due Date Last Done Comments COVID-19 Vaccine (#1) 1935 Depression Screening 05/30/2021 05/30/2020 DIG LEVEL FOR MEDICATION MONITORING YEARLY 03/08/2023 03/08/2022, 06/12/2021, 05/18/2021, Additional history exists Albumin/Creatinine Ratio 07/20/2023 023, 04/06/2021, 05/30/2020, Additional history exists DXA Scan 10/22/2023 10/21/2021, 02/2018, 12/29/2015, Additional history exists CKD PHOS USE SMARTSET 21241 11/06/20230 09/2022, 04/14/2022, 10/06/2021, Additional history exists CKD HGB USE SMARTSET 93418 12/15/202312/14, 12/14/2022, 07/19/2022, Additional history exists DTaP,Tdap,and Td Vaccines (2 - Td or Tdap) 12/31/2029 01/01/2020 (Declined), 12/30/2009, 12/30/2009, Additional history exists Pneumococcal Vaccine: 65+ Years Completed 02/08/2017, 02/23/2006 VITAMIN D LEVEL ONCE IN A LIFETIME-USE SMARTSET# 02997 Completed 11/05/2022, 04/14/2022, 03/08/2022, Additional history exists [...] this encounter Medical Devices Implanted Type Area Pediatric Dentist Device Identifier Shelf Expiration Date Model / Serial / Lot Pacer Advisa Dr Dorsey - [id number] - [id number] Implanted:Qty: 1 on 04/11/2017 by Elda Patterson DO at OR [facility] Left: Chest [employer] 08/25/2018 A2DR01 / [id number] / documented as of this encounter Procedures Procedure Name Priority Date/Time Associated Diagnosis Comments DERM IMAGE (SITE) Routine 01/17/2023 Hx of nonmelanoma skin cancer DERM IMAGE (SITE) Routine 01/17/2023 Seborrheic keratosis Multiple nevi Skin exam, screening for cancer Hx of nonmelanoma skin cancer H/O dysplastic nevus Actinic keratosis documented in this encounter Results * DERM IMAGE (SITE) (01/17/2023) 01/17/2023 Amber Sexton Ernesto [place]-Zeb DIGITAL PHOTOG YUKO * DERM IMAGE (SITE) (01/17/2023) 01/17/2023 Amber Carlie [place]-Zeb DIGITAL PHOTOG YUKO documented in this encounter [...] Documents on File Type Date Recorded Patient Billing Coordinator Expl anation POLST 01/05/2021 [place] OR [facility] FOR LIFE-SUSTAINING TREATMENT Latest Code Status on File Code Status Date Activated Date Inactivated Comments Full Code 07/02/2008 9:35 AM 07/03/2008 5:40 PM Care Teams Marketing And Development Coordinator Relationship Specialty Start Date End Date Cathy Fregoso MD [address] [place] [address] [place] [address] PCP - General Family Medicine 12/03/22 documented as of this encounter
--- OUTSIDE RECORDS SUMMARY | 2023-05-27 20:52 | External Medical Summary ---
Author Name Unknown Address Unknown Organization [facility] [address] [place] [id number] Laboratory Report Ordering Provider Test Date Status LETICIA MADRIGAL 02/04/2023 10:30:00 Final Standing order for pt/inr. < br/>Please draw pt/inr every 1 to 4 weeks as requested
Results to [facility] Anticoagulation [facility]

Warfarin Therapy
INR: 2.0-3.0 conventional anticoagulation
INR: 2.5-3.5 high intensity anticoagulation Observation Date Value Abnormality Reference (Units ) Status PT 02/04/2023 10:30:00 23.0 Above high normal 11 .6-15.2 (seconds) Final INR 02/04/2023 10:30:00 2.0 Above high normal 0. 8-1.2 Final Performing Location [facility] [address] [place] [address]
--- OUTSIDE RECORDS SUMMARY | 2023-05-27 20:53 | External Medical Summary | Summary of Care ---
Author Name Unknown Organization [facility] Address [address] [facility] [address] Phone [phone] Care Team Providers Care Bat Lathe Operator Name Role Phone Cathy Wilburn MD Primary Care Provide r Reason for Visit * Reason Onset Date Comments Medication Administration 12/20/2022 Prolia * Precert (Within 10 days (routine)) - Authorized Specialty Diagnoses / Procedures Referred By Contac t Referred To Contact Rheumatology Diagnoses Age-related osteoporosis without current pathological fracture Procedures DENOSUMAB 1MG, INJ Kian Mir MD [address] [email or web address] [address] Referral ID Status Reason Start Date Expiration Date V isits Requested Visits Authorized [id number] Authorized Precert 07/12/2019 09/29/2023 99 99 Encounter Details Date Type Department Care Team (Late st Contact Info) Description 12/20/2022 2:30 PM EDT Nurse Only Rheumatology [address] [place] [phone] [place], Nurse Rheum [address] [place] [phone] Medication Administration (Prolia) Allergies Active Allergy Reactions Criticality Noted Date [...] as of this encounter (statuses as of 12/20/2022) Medications Medication Sig Dispensed Refills Start Date [...] IN THE MORNING 30 Tablet 07/06/2022 Active Jantoven 2 MG Oral Tablet (Warfarin Sodium) TAKE ONE TO TWO TABLETS BY MOUTH EVERY EVENING ( PER anti-coagulation clinic) 180 Tablet 1 08/04/2022 Active Losartan Potassium 100 MG Oral Tablet (Cozaar) TAKE ONE TABLET BY MOUTH IN THE MORNING 30 Tablet 08/04/2022 Active amLODIPine Besylate 5 MG Oral Tablet (Norvasc) TAKE ONE TABLET BY MOUTH IN THE MORNING 30 Tablet 08/04/2022 Active Atorvastatin Calcium 40 MG Oral Tablet (Lipitor)Indications :Atherosclerosis of ramona coronary artery of ramona heart without angina pectoris,Dyslipidemi a, goal LDL [...] and 1.5 Tablets before bedtime. 120 Tablet 10/18/2022 Active Enoxaparin Sodium 80 MG/0.8ML Injection Solution Prefilled Syringe (Lovenox)Indications :Paroxysmal atrial fibrillation (HCC),DVT, lower extremity, distal, acute, right (HCC),Pulmonary embolism and infarction (HCC) Inject 80 mg under the skin in the morning and 80 mg before bedtime. As instructed by the [facility] Coumadin [facility]. 8 mL 0 11/24/2022 Active Hospital, Clinic, or Other Facility Administered Medication Ordered Dose Route Frequency Start Date End Date Status Denosumab (Prolia) subcut inj 60 mgIndications:Senile osteoporosis 60 mg SC ONCE 12/20/2022 12/20/2022 Ended documented as of this encounter (statuses as of 12/20/2022) Active Problems Problem Noted Date Diagnosed Date [...] lumbosacral intervertebral disc 02/04/2009 Coronary atherosclerosis of ramona coronary luis ry 02/24/2005 Senile osteoporosis 05/14/2003 Carpal tunnel syndrome 04/23/2003 Moderate mitral regurgitation GENERAL OSTEOARTHROSIS Gastroesophageal reflux disease without esophagi tis Vitamin D deficiency Hyperparathyroidism, primary documented as of this encounter (statuses as of 12/20/2022) Resolved Problems Problem Noted Date Diagnosed Date [...] 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 LOC PRIM [id number] 02/14/200205/30 Other seborrheic keratosis 10/31/2001 0 06/06/2007 [...] as of this encounter (statuses as of 12/20/2022) Immunizations Name Administration Dates Next Due Pneumococcal [...] Sign Reading Time Taken Comments Blood Pressure - - Pulse - - Temperature 36.4 C (97.5 F) 12/20/2022 2:43 PM ED T Respiratory Rate - - Oxygen Saturation - - Inhaled Oxygen Concentration - - Weight - - Height - - Body Mass Index - - documented in this encounter Functional Status Functional [...] as of this encounter Progress Notes * Raisa Jnoes LPN - 12/20/2022 2:40 PM EDT Miranda Coe presents today for administration of Prolia. She understands the benefits and risks of this treatment. An educational pamphlet was given to the patient. Prolia 60 mg was administered subcutaneously. The patient tolerated the procedure without problems. She will return in 6 months for the next injection and evaluation. Raisa Jones LPN documented in this encounter Plan of Treatment Upcoming Encounters Date Type Department Care Team (Late st Contact Info) Description 12/31/2022 8:30 AM EDT Laboratory Lab Mobile Phlebotomy [facility] [address] [place] [address] [facility], [facility] Mobile Home Draw [address] [place] [address] 01/03/2023 6:00 AM EST Anticoagulation Pharmacy Call Center WB [phone] [facility] [place] [address] [address], [facility], [place]) 58 60 [facility] [place] [address] 01/17/2023 3:00 PM EST Office Visit Dermatology [address] [place] [address] Amber Orozco PA-C [address] [place] [address] [place] [address] 03/17/2023 3:40 PM EST Office Visit Family Medicine [address] [place] [phone] Cathy Wilburn MD [address] [place] [address] [place] [address] 03/31/2023 8:30 AM EST Office Visit Cardiology [address] [place] [address] Poli Zepeda PA-C [address] [place] [address] 04/26/2023 2:00 PM EST Cardiac Studies Cardiology [address] [place] [address] Lucia Jimenez [facility] [address] [place] [address] 04/27/2023 2:30 PM EST Office Visit Endocrinology, [place] [address] [place] [address] Geraldine Hartley MD [address] [facility] [place] [id number] 06/08/2023 2:00 PM EDT Laboratory Laboratory [address] [place] [phone] [place], Lab [address] [place] [address] 06/15/2023 2:30 PM EDT Office Visit Hematology/Oncology [facility] [place] [address] [facility] [place] [address] Matt Faustin MD [address] [place] [address] 06/24/2023 2:30 PM EDT Nurse Only Rheumatology [address] [place] [phone] [place], Nurse Rheum [address] [place] [phone] 09/26/2023 2:20 PM EDT Office Visit Nephrology [address] [place] [address] Josie Butler MD [address] [facility] [place] [address] 10/12/2023 3:00 PM EDT Office Visit Sleep Disorders Ctr Alexis Hernandez, [place] [address] [place] [phone] Isabel Diallo DO [address] [address] Health Maintenance Due Date Last Done Comments COVID-19 Vaccine (#1) 1935 Depression Screening 05/30/2021 05/30/2020 DIG LEVEL FOR MEDICATION MONITORING YEARLY 03/08/2023 03/08/2022, 06/12/2021, 05/18/2021, Additional history exists Albumin/Creatinine Ratio 07/20/2023 023, 04/06/2021, 05/30/2020, Additional history exists DXA Scan 10/22/2023 10/21/2021, 02/2018, 12/29/2015, Additional history exists CKD PHOS USE SMARTSET 27180 11/06/20230 09/2022, 04/14/2022, 10/06/2021, Additional history exists CKD HGB USE SMARTSET 24913 12/15/202312/14, 12/14/2022, 07/19/2022, Additional history exists DTaP,Tdap,and Td Vaccines (2 - Td or Tdap) 12/31/2029 01/01/2020 (Declined), 12/30/2009, 12/30/2009, Additional history exists Pneumococcal Vaccine: 65+ Years Completed 02/08/2017, 02/23/2006 VITAMIN D LEVEL ONCE IN A LIFETIME-USE SMARTSET# 64711 Completed 11/05/2022, 04/14/2022, 03/08/2022, Additional history exists [...] this encounter Medical Devices Implanted Type Area Propagation Worker Device Identifier Shelf Expiration Date Model / Serial / Lot Pacer Advisa Dr Dorsey - [id number] - [id number] Implanted:Qty: 1 on 04/11/2017 by Elda Patterson DO at OR [facility] Left: Chest [employer] 08/25/2018 [id number] / [id number] / documented as of this encounter Visit Diagnoses Diagnosis Senile osteoporosis- Primary documented in this encounter Administered Medications Inactive Administered Medications - up to 3 most recent administrations Medication Order MAR Action Action Date Dose Rate Site Denosumab (Prolia) subcut inj 60 mg 60 mg, Subcutaneous, ONCE, On 12/20/22 at 1515, For 1 dose Given 12/20/2022 2:40 PM EDT 60 mg Arm Right Upper documented in this encounter Advance Directives Documents on File Type Date Recorded Patient Cable Coverer Expl anation POLST 01/05/2021 [place] [facility] Latest Code Status on File Code Status Date Activated Date Inactivated Comments Full Code 07/02/2008 9:35 AM 07/03/2008 5:40 PM Care Teams Bat Lathe Operator Relationship Specialty Start Date End Date Cathy Wilburn MD [address] [place] [address] [place] [address] PCP - General Family Medicine 12/03/22 documented as of this encounter
--- OUTSIDE RECORDS SUMMARY | 2023-05-27 20:53 | External Medical Summary ---
Author Name Unknown Address Unknown Organization K01:LABORATORY [facility] - [address] [place] [address] Laboratory Report Ordering Provider Test Date Status KAITLINJORDYNALL 12/31/2022 10:44:00 Final Standing order for pt/inr. < br/>Please draw pt/inr every 1 to 4 weeks as requested
Results to [facility] Anticoagulation Clinic

Warfarin Therapy
INR: 2.0-3.0 conventional anticoagulation
INR: 2.5-3.5 high intensity anticoagulation Observation Date Value Abnormality Reference (Units ) Status PT 12/31/2022 10:44:00 26.4 Above high normal 11 .6-15.2 (seconds) Final INR 12/31/2022 10:44:00 2.4 Above high normal 0. 8-1.2 Final Performing Location LABORATORY [facility] - [address] [facility] [address]
--- OUTSIDE RECORDS SUMMARY | 2023-05-27 20:53 | External Medical Summary | Summary of Care ---
Author Name Unknown Organization [facility] Address [address] [place] [address] Phone [phone] Care Team Providers Care Membership Administrator Name Role Phone Cathy Wilburn MD Primary Care Provide r Reason for Visit * Reason Comments Dosage Adjustment Via Phone (anticoag Cl inic) Encounter Details Date Type Department Care Team (Latest Contact Info) Description 01/03/2023 6:00 AM EST Anticoagulation Pharmacy Call Center [phone] [place] [address] [facility] [address] [facility] [place] [address] Paroxysmal atrial fibrillation (HCC)* Allergies Active Allergy [...] 40 MG Oral Tablet (Lipitor)Indications :Atherosclerosis of [place] coronary artery of [place] heart without angina pectoris,Dyslipidemi a, goal LDL [...] mg before bedtime. As instructed by the [facility] Coumadin Clinic. 8 mL 0 11/24/2022 [...] lumbosacral intervertebral disc 02/04/2009 Coronary atherosclerosis of [place] coronary luis ry 02/24/2005 Senile osteoporosis 05/14/2003 [...] 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 LOC PRIM [id number] 02/14/200205/30 Other seborrheic keratosis 10/31/2001 0 06/06/2007 [...] of this encounter Progress Notes * Vonnie Santos CPhT - 01/03/2023 9:19 AM EST Contacts Type Contact Phone/Fax 01/03/2023 09:17 AM EST Phone (Outgoing) Miranda Coe (Self) [phone] (M) Subjective Patient Findings Negatives: Signs/symptoms of bleeding, Change in health, Change in activity, Upcoming invasive procedure, Missed doses, Extra doses, Change in medications, Change in diet/appetite, Bruising Advised patient to contact Anticoagulation Clinic if any unusual bruising or bleeding, recent illness, changes in medication, or questions/concerns. PT/INR results, Coumadin dose instructions, and next PT/INR date communicated as noted by Pharmacist: Yes Vonnie Santos CPhT 01/03/2023, 9:19 AM * Vonnie Lam [facility] - 01/03/2023 8:03 AM EST Coumadin Clinic (region specific) Objective Current Warfarin Dose As of 01/03/2023 Warfarin maintenance plan: 4 mg (2 mg x 2) every Mon, Wed, Fri; 2 mg (2 mg x 1) all other days INR Result As of 01/03/2023 INR goal: 2.0-3.0 INR used for dosin.4 (12/31/2022) Assessment & Plan Warfarin Plan As of 01/03/2023 Full warfarin instructions: 4 mg every Mon, Wed, Fri; 2 mg all other days No change documented: Vonnie Lam RPh Next INR check: 01/14/2023 Repeat PT/INR in 2 week(s) Weekly dose: not changed Additional Dosing Information: Description [facility] Tech to contact patient with dose instructions as noted. Vonnie Lam RPh 01/03/2023, 8:03 AM documented in this encounter Plan of Treatment Upcoming Encounters Date Type Department Care Team (Late st Contact Info) Description 01/17/2023 3:00 PM EST Office Visit Dermatology [address] [place] [address] Amber Orozco PA-C [address] [place] [address] [place] [address] 03/17/2023 3:40 PM EST Office Visit Family Medicine [address] [place] [phone] Cathy Wilburn MD [address] [place] [address] [place] [address] 03/31/2023 8:30 AM EST Office Visit Cardiology [address] [place] [address] Poli Zepeda PA-C [address] [place] [address] 04/26/2023 2:00 PM EST Cardiac Studies Cardiology [address] [place] [address] [facility] [address] [place] [address] 04/27/2023 2:30 PM EST Office Visit Endocrinology, [place] [address] [place] [address] Geraldine Hartley MD [address] [place] [address] 06/08/2023 2:00 PM EDT Laboratory Laboratory [address] [place] [phone] [place], Lab [address] [place] [address] 06/15/2023 2:30 PM EDT Office Visit Hematology/Oncology [facility] [address] [place] [address] Matt Faustin MD [address] [place] [address] 06/24/2023 2:30 PM EDT Nurse Only Rheumatology [address] [place] [phone] [place], Nurse Rheum [address] [place] [phone] 09/26/2023 2:20 PM EDT Office Visit Nephrology [address] [place] [address] Josie Butler MD [address] [place] [address] 10/12/2023 3:00 PM EDT [facility] [place] [address] [place] [phone] Isabel Diallo DO [address] [place] [address] Health Maintenance Due Date Last Done Comments COVID-19 Vaccine (#1) 1935 Depression Screening 05/30/2021 05/30/2020 DIG LEVEL FOR MEDICATION MONITORING YEARLY 03/08/2023 03/08/2022, 06/12/2021, 05/18/2021, Additional history exists Albumin/Creatinine Ratio 07/20/2023 023, 04/06/2021, 05/30/2020, Additional history exists DXA Scan 10/22/2023 10/21/2021, 02/2018, 12/29/2015, Additional history exists CKD PHOS USE SMARTSET 91541 11/06/20230 09/2022, 04/14/2022, 10/06/2021, Additional history exists CKD HGB USE SMARTSET 27478 12/15/202312/14, 12/14/2022, 07/19/2022, Additional history exists DTaP,Tdap,and Td Vaccines (2 - Td or Tdap) 12/31/2029 01/01/2020 (Declined), 12/30/2009, 12/30/2009, Additional history exists Pneumococcal Vaccine: 65+ Years Completed 02/08/2017, 02/23/2006 VITAMIN D LEVEL ONCE IN A LIFETIME-USE SMARTSET# 38699 Completed 11/05/2022, 04/14/2022, 03/08/2022, Additional history exists [...] this encounter Medical Devices Implanted Type Area Municipal Maintenance Worker Device Identifier Shelf Expiration Date Model / Serial / Lot Pacer Advisa Dr Dorsey - [id number] - [id number] Implanted:Qty: 1 on 04/11/2017 by Elda Patterson DO at OR [facility] Left: Chest [employer] 08/25/2018 [id number] / [id number] / documented as of this encounter Visit Diagnoses Diagnosis Paroxysmal atrial fibrillation (HCC)- Primary Atrial fibrillation documented in this encounter Advance Directives Documents on File Type Date Recorded 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
--- OUTSIDE RECORDS SUMMARY | 2023-05-27 20:53 | External Medical Summary | Summary of Care ---
Author Name Unknown Organization [facility] Address [address] [place] [address] Phone [phone] Care Team Providers Care Executive Search Consultant Name Role Phone Cathy Wilburn MD Primary Care Provide r Encounter Details Date Type Department Care Team (Late st Contact Info) Description 12/31/2022 Telephone Endocrinology, [place] [address] [place] [address] Geraldine Hartley MD [address] [place] [address] Allergies Active Allergy Reactions Criticality Noted Date [...] as of this encounter (statuses as of 12/31/2022) Medications Medication Sig Dispensed Refills Start Date [...] 40 MG Oral Tablet (Lipitor)Indications :Atherosclerosis of [place]ahu[place] coronary artery of [place] heart without angina pectoris,Dyslipidemi a, goal LDL [...] as of this encounter (statuses as of 12/31/2022) Active Problems Problem Noted Date Diagnosed Date [...] lumbosacral intervertebral disc 02/04/2009 Coronary atherosclerosis of [place] coronary luis ry 02/24/2005 Senile osteoporosis 05/14/2003 Carpal tunnel syndrome 04/23/2003 Moderate mitral regurgitation GENERAL OSTEOARTHROSIS Gastroesophageal reflux disease without esophagi tis Vitamin D deficiency Hyperparathyroidism, primary documented as of this encounter (statuses as of 12/31/2022) Resolved Problems Problem Noted Date Diagnosed Date [...] 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 LOC PRIM [id number] 02/14/200205/30 Other seborrheic keratosis 10/31/2001 0 06/06/2007 [...] as of this encounter (statuses as of 12/31/2022) Immunizations Name Administration Dates Next Due Pneumococcal [...] encounter Miscellaneous Notes * Telephone Encounter - Geraldine Hartley MD [...] Care Team (Late st Contact Info) Description 01/03/2023 6:00 AM EST Anticoagulation Pharmacy Call Center [phone] [place] [address] [facility] 58 60 [facility] [place] [address] 01/17/2023 3:00 PM EST Office Visit Dermatology [address] [place] [address] Amber Orozco PA-C [address] [place] [address] [place] [address] 03/17/2023 3:40 PM EST Office Visit Family Medicine [address] [place] [phone] Cathy Wilburn MD [address] [place] [address] [place] [address] 03/31/2023 8:30 AM EST Office Visit Cardiology [address] [place] [address] Poli Zepeda PA-C [address] [place] [address] 04/26/2023 2:00 PM EST Cardiac Studies Cardiology [address] [place] [address] [facility] [address] [place] [address] 04/27/2023 2:30 PM EST Office Visit Endocrinology, [place] [address] [place], [place] [phone] Geraldine Hartley MD [address] [place] [address] 06/08/2023 2:00 PM EDT Laboratory Laboratory [address] [place] [phone] [place], Lab [address] [place] [address] 06/15/2023 2:30 PM EDT Office Visit Hematology/Oncology [facility] [place] [address] [place] [address] Matt Faustin MD [address] [place] [address] 06/24/2023 2:30 PM EDT Nurse Only Rheumatology [address] [place] [phone] [place], Nurse Rheum [address] [place] [phone] 09/26/2023 2:20 PM EDT Office Visit Nephrology [address] [place] [address] Josie Butler MD [address] [place] [address] 10/12/2023 3:00 PM EDT Office Visit Sleep Disorders Ctr [facility] [address] [place] [phone] Isabel Dialloaret, [address] [place] [address] Health Maintenance Due Date Last Done Comments COVID-19 Vaccine (#1) 1935 Depression Screening 05/30/2021 05/30/2020 DIG LEVEL FOR MEDICATION MONITORING YEARLY 03/08/2023 03/08/2022, 06/12/2021, 05/18/2021, Additional history exists Albumin/Creatinine Ratio 07/20/2023 023, 04/06/2021, 05/30/2020, Additional history exists DXA Scan 10/22/2023 10/21/2021, 070 02/2018, 12/29/2015, Additional history exists CKD PHOS USE SMARTSET 65714 11/06/2023 090 09/2022, 04/14/2022, 10/06/2021, Additional history exists CKD HGB USE SMARTSET 47890 12/15/202312/14, 12/14/2022, 07/19/2022, Additional history exists DTaP,Tdap,and Td Vaccines (2 - Td or Tdap) 12/31/2029 01/01/2020 (Declined), 12/30/2009, 12/30/2009, Additional history exists Pneumococcal Vaccine: 65+ Years Completed 02/08/2017, 02/23/2006 VITAMIN D LEVEL ONCE IN A LIFETIME-USE SMARTSET# 13764 Completed 11/05/2022, 04/14/2022, 03/08/2022, Additional history exists [...] this encounter Medical Devices Implanted Type Area Doughnut Maker Device Identifier Shelf Expiration Date Model / Serial / Lot Pacer Advisa Dr Dorsey - [id number] - [id number] Implanted:Qty: 1 on 04/11/2017 by Elda Patterson DO at OR [facility] Left: Chest [employer] 08/25/2018 A2DR01 / [id number] / documented as of this encounter Advance Directives Documents on File Type Date Recorded 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
--- OUTSIDE RECORDS SUMMARY | 2023-05-27 20:53 | External Medical Summary | Summary of Care ---
Author Name Unknown Organization [facility] Address [address] [place] [address] Phone [phone] Care Team Providers Care Track Vehicle Repairer Name Role Phone Cathy Wilburn MD Primary Care Provide r Reason for Visit * Reason Comments Dosage Adjustment Via Phone (anticoag Cl inic) Encounter Details Date Type Department Care Team (Latest Contact Info) Description 12/20/2022 6:00 AM EDT Anticoagulation Pharmacy Call Center [address] [place] [address] [facility] [address] [place] [address] Paroxysmal atrial fibrillation (HCC)* Allergies Active Allergy [...] IN THE MORNING 30 Tablet 5 08/04/2022 Active Atorvastatin Calcium 40 MG Oral Tablet (Lipitor)Indications :Atherosclerosis of [place] coronary artery of [place] heart without angina pectoris,Dyslipidemi a, goal LDL [...] mg before bedtime. As instructed by the [facility]. 8 mL 0 11/24/2022 Active documented as of this encounter (statuses [...] lumbosacral intervertebral disc 02/04/2009 Coronary atherosclerosis of [place] coronary luis ry 02/24/2005 Senile osteoporosis 05/14/2003 [...] 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 LOC PRIM [id number] 02/14/200205/30 Other seborrheic keratosis 10/31/2001 0 06/06/2007 [...] as of this encounter Progress Notes * REBECA Hogan Tech - 12/20/2022 8:22 AM EDT Contacts Type Contact Phone/Fax 12/20/2022 08:20 AM EDT Phone (Outgoing) Miranda Coe (Self) [phone] (M) Spoke to Patient Subjective Patient Findings [...] communicated as noted by Pharmacist: Yes REBECA HOGAN Tech 12/20/2022, 8:22 AM * Vonnie Lam [facility] - 12/20/2022 7:57 AM EDT Images from the original note were not included. Coumadin Clinic (region specific) Objective Current Warfarin Dose As of 12/20/2022 Warfarin maintenance plan: 4 mg (2 mg x 2) every Mon, Wed, Fri; 2 mg (2 mg x 1) all other days INR Result As of 12/20/2022 INR goal: 2.0-3.0 INR used for dosin.6 (12/17/2022) Assessment & Plan Warfarin Plan As of 12/20/2022 Full warfarin instructions: 12/20: 8 mg; Otherwise 4 mg every Mon, Wed, Fri; 2 mg all other days Next INR check: 12/31/2022 Repeat PT/INR in 2 week(s) Weekly dose: not changed Additional Dosing Information: Description [facility] Tech to contact patient with dose instructions as noted. Vonnie Lam RPh 12/20/2022, 7:58 AM documented in this encounter Plan of Treatment Upcoming Encounters Date Type Department Care Team (Late st Contact Info) Description 12/20/2022 2:30 PM EDT Nurse Only Rheumatology [address] [place] [phone] [place], Nurse [address] [place] [address] 01/03/2023 6:00 AM EST Anticoagulation Pharmacy Call Center [phone] [facility] [place] [address] [facility] 58 60 [facility] [place] [address] 03/17/2023 3:40 PM EST Office Visit Family Medicine [address] [place] [phone] Cathy Wilburn MD [address] [place] [address] [place] [address] 03/31/2023 8:30 AM EST Office Visit Cardiology [address] [place] [address] Poli Zepeda PA-C [address] [place] [address] 04/26/2023 2:00 PM EST Cardiac Studies Cardiology [address] [place] [address] Lucia Jimenez Alexis Hernandez [address] [place] [address] 04/27/2023 2:30 PM EST Office Visit Endocrinology, [place] [address] [place], [place] [phone] Geraldine Hartley MD [address] [place] [address] 04/27/2023 3:20 PM EST Office Visit Nephrology [address] [place] [address] Josie Butler MD [address] [place] [address] 06/08/2023 2:00 PM EDT Laboratory Laboratory [address] [place] [phone] [address] [place] [address] 06/15/2023 2:30 PM EDT Office Visit Hematology/Oncology [facility] [address] [place] [address] Matt Faustin MD [address] [place] [address] 10/12/2023 3:00 PM EDT Office Visit Sleep Disorders Ctr [facility] [place] [address] [place] [phone] Isabel Diallo DO [address] [place] [address] Health Maintenance Due Date Last Done Comments COVID-19 Vaccine (#1) 1935 Depression Screening 05/30/2021 05/30/2020 DIG LEVEL FOR MEDICATION MONITORING YEARLY 03/08/2023 03/08/2022, 06/12/2021, 05/18/2021, Additional history exists Albumin/Creatinine Ratio 07/20/2023 023, 04/06/2021, 05/30/2020, Additional history exists DXA Scan 10/22/2023 10/21/2021, 02/2018, 12/29/2015, Additional history exists CKD PHOS USE SMARTSET 40792 11/06/20230 09/2022, 04/14/2022, 10/06/2021, Additional history exists CKD HGB USE SMARTSET 13778 12/15/202312/14, 12/14/2022, 07/19/2022, Additional history exists DTaP,Tdap,and Td Vaccines (2 - Td or Tdap) 12/31/2029 01/01/2020 (Declined), 12/30/2009, 12/30/2009, Additional history exists Pneumococcal Vaccine: 65+ Years Completed 02/08/2017, 02/23/2006 VITAMIN D LEVEL ONCE IN A LIFETIME-USE SMARTSET# 74474 Completed 11/05/2022, 04/14/2022, 03/08/2022, Additional history exists [...] this encounter Medical Devices Implanted Type Area Clinical Data Management Director Device Identifier Shelf Expiration Date Model / Serial / Lot Pacer Advisa Dr Dorsey - [id number] - [id number] Implanted:Qty: 1 on 04/11/2017 by Elda Patterson DO at OR [facility] Left: Chest [employer] 08/25/2018 [id number] / [id number] / documented as of this encounter Visit Diagnoses Diagnosis Paroxysmal atrial fibrillation (HCC)- Primary Atrial fibrillation documented in this encounter Advance Directives Documents on File Type Date Recorded 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
--- OUTSIDE RECORDS SUMMARY | 2023-05-27 20:53 | External Medical Summary | Summary of Care ---
Author Name Unknown Organization [facility] [address] [facility] [address] Phone [phone] Care Team Providers Care Supervisor Beet End Name Role Phone Cathy Wilburn MD Primary Care Provide r Reason for Visit * Reason Onset Date Comments Medication Administration 12/20/2022 Prolia * Precert (Within 10 days (routine)) - Authorized Specialty Diagnoses / Procedures Referred By Contac t Referred To Contact Rheumatology Diagnoses Age-related osteoporosis without current pathological fracture Procedures DENOSUMAB 1MG, INJ Kian Mir MD [address] [place] [address] Referral ID Status Reason Start Date Expiration Date V isits Requested Visits Authorized [id number] Authorized Precert 07/12/2019 09/29/2023 99 99 Encounter Details Date Type Department Care Team (Late st Contact Info) Description 12/20/2022 2:30 PM EDT Nurse Only Rheumatology [address] [place] [phone] [place], Nurse Rheum [address] [place] [phone] Medication Administration (Prolia) [...] 40 MG Oral Tablet (Lipitor)Indications :Atherosclerosis of [place] coronary artery of [place] heart without angina pectoris,Dyslipidemi a, goal LDL [...] mg before bedtime. As instructed by the [facility] Coumadin [facility]. 8 mL 0 11/24/2022 Active [...] lumbosacral intervertebral disc 02/04/2009 Coronary atherosclerosis of [place] coronary luis ry 02/24/2005 Senile osteoporosis 05/14/2003 [...] 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 LOC PRIM [id number] 02/14/200205/30 Other seborrheic keratosis 10/31/2001 0 06/06/2007 [...] of this encounter Progress Notes * Raisa Jones LPN - 12/20/2022 2:40 PM EDT Miranda [...] Call Center WB [address] [place] [address] [facility], [facility] 58 60 [facility] [place] [address] 03/17/2023 3:40 PM EST Office Visit Family Medicine [address] [place] [phone] Cathy Wilburn MD [address] [place] [address] [place] [address] 03/31/2023 8:30 AM EST Office Visit Cardiology [address] [place] [address] Poli Zepeda PA-C [address] [facility] [address] 04/26/2023 2:00 PM EST Cardiac Studies Cardiology [address] [place] [address] [facility] [address] [facility] [place] [address] 04/27/2023 2:30 PM EST Office Visit Endocrinology, [place] [address] [place] [address] Geraldine Hartley MD [address] [place] [address] 04/27/2023 3:20 PM EST Office Visit Nephrology [address] [place] [address] Josie Butler MD 200 [facility] [place] [address] 06/08/2023 2:00 PM EDT Laboratory Laboratory [address] [place] [phone] [place], [address] [place] [address] 06/15/2023 2:30 PM EDT Office Visit Hematology/Oncology [facility] [address] [place] [address] Matt Faustin MD [address] [place] [address] 10/12/2023 3:00 PM EDT Office Visit Sleep Disorders Ctr [facility] [address] [place] [phone] Isabel Diallo DO [address] [place] [address] Health Maintenance Due Date Last Done Comments COVID-19 Vaccine (#1) 1935 Depression Screening 05/30/2021 05/30/2020 DIG LEVEL FOR MEDICATION MONITORING YEARLY 03/08/2023 03/08/2022, 06/12/2021, 05/18/2021, Additional history exists Albumin/Creatinine Ratio 07/20/20232 023, 04/06/2021, 05/30/2020, Additional history exists DXA Scan 10/22/2023 10/21/2021, 070 02/2018, 12/29/2015, Additional history exists CKD PHOS USE SMARTSET 24948 11/06/2023 090 09/2022, 04/14/2022, 10/06/2021, Additional history exists CKD HGB USE SMARTSET 79834 12/15/202312/14, 12/14/2022, 07/19/2022, Additional history exists DTaP,Tdap,and Td Vaccines (2 - Td or Tdap) 12/31/2029 01/01/2020 (Declined), 12/30/2009, 12/30/2009, Additional history exists Pneumococcal Vaccine: 65+ Years Completed 02/08/2017, 02/23/2006 VITAMIN D LEVEL ONCE IN A LIFETIME-USE SMARTSET# 24870 Completed 11/05/2022, 04/14/2022, 03/08/2022, Additional history exists [...] this encounter Medical Devices Implanted Type Area Funeral Home Location Manager Device Identifier Shelf Expiration Date Model / Serial / Lot Pacer Advisa Dr Dorsey - [id number] - [id number] Implanted:Qty: 1 on 04/11/2017 by Elda Patterson DO at OR [facility] Left: Chest [employer] 08/25/2018 [id number] / [id number] / documented as of this encounter Visit [...] Documents on File Type Date Recorded 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
--- OUTSIDE RECORDS SUMMARY | 2023-05-27 20:53 | External Medical Summary | Summary of Care ---
Author Name Unknown Organization [facility] Address [address] [place] [address] Phone [phone] Care Team Providers Care Night Warehouse Selector Name Role Phone Cathy Fregoso MD Primary Care Provide r Reason for Visit * Reason Comments eRx-Medication Refill Encounter Details Date Type Department Care Team (Late st Contact Info) Description 12/30/2022 Refill Pharmacy Call Center [address] [place] [address] [facility] [address] [facility] [place] [address] Allergies Active Allergy Reactions Criticality Noted Date [...] MG Oral Tablet (Lipitor)Indicati ons:Atheroscleros is of [place] coronary artery of [place] heart without angina pectoris,Dyslipid emia, goal LDL [...] mg before bedtime. As instructed by the [facility] Coumadin [facility]. 8 mL 0 11/24/2022 Active Warfarin Sodium 2 MG Oral Tablet (Jantoven) Take 1-2 Tablets by mouth every evening. 180 Tablet 1 12/31/2022 Active Jantoven 2 MG Oral Tablet (Warfarin Sodium) TAKE ONE TO TWO TABLETS BY MOUTH EVERY EVENING ( PER anti-coagulatio n clinic) 180 Tablet 1 08/04/2022 3 Discontinued documented as of this [...] lumbosacral intervertebral disc 02/04/2009 Coronary atherosclerosis of [place] coronary luis ry 02/24/2005 Senile osteoporosis 05/14/2003 [...] 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 LOC PRIM [id number] 02/14/200205/30 Other seborrheic keratosis 10/31/2001 0 06/06/2007 [...] encounter Miscellaneous Notes * Telephone Encounter - Soheila Mccord [facility] - 12/31/2022 10:28 AM EDTSigned Prescriptions: Disp Refills Warfarin Sodium 2 MG Oral Tablet (Jantoven)180 Ta*1 Sig: Take 1-2 Tablets by mouth every evening.Authorizing Provider: Rafal FREGOSO User: SOHEILA MCCORD documented in this encounter Plan of Treatment Upcoming Encounters Date Type Department Care Team (Late st Contact Info) Description 01/03/2023 6:00 AM EST Anticoagulation Pharmacy Call Center WB [address] [facility] [place] [address] [facility] 58 60 [facility] [place] [address] 01/17/2023 3:00 PM EST Office Visit Dermatology [address] [place] [address] Amber Orozco PA-C [address] [place] [address] [place] [phone] 03/17/2023 3:40 PM EST Office Visit Family Medicine [address] [place] [phone] Cathy Fregoso MD [address] [place] [address] [place] [address] 03/31/2023 8:30 AM EST Office Visit Cardiology [address] [place] [address] Poli Zepeda PA-C [address] [place] [address] 04/26/2023 2:00 PM EST Cardiac Studies Cardiology [address] [place] [address] Lucia Jimenez [facility] [address] [place] [address] 04/27/2023 2:30 PM EST Office Visit Endocrinology, [place] [address] [place] [address] Geraldine Hartley MD [address] [place] [address] 06/08/2023 2:00 PM EDT Laboratory Laboratory [address] [place] [phone] [facility] [address] [place] [address] 06/15/2023 2:30 PM EDT Office Visit Hematology/Oncology [facility] [address] [place] [address] Matt Faustin MD [address] [place] [address] 06/24/2023 2:30 PM EDT Nurse Only Rheumatology [address] [place] [phone] [place], Nurse [address] [place] [phone] 09/26/2023 2:20 PM EDT Office Visit Nephrology [address] [place] [address] Josie Butler MD [address] [place] [address] 10/12/2023 3:00 PM EDT Office Visit Sleep Disorders Ctr [place] [address] [place] [phone] Isabel Diallo DO [address] [place] [address] Health Maintenance Due Date Last Done Comments COVID-19 Vaccine (#1) 1935 Depression Screening 05/30/2021 05/30/2020 DIG LEVEL FOR MEDICATION MONITORING YEARLY 03/08/2023 03/08/2022, 06/12/2021, 05/18/2021, Additional history exists Albumin/Creatinine Ratio 07/20/20232 023, 04/06/2021, 05/30/2020, Additional history exists DXA Scan 10/22/2023 10/21/2021, 02/2018, 12/29/2015, Additional history exists CKD PHOS USE SMARTSET 38410 11/06/2023 090 09/2022, 04/14/2022, 10/06/2021, Additional history exists CKD HGB USE SMARTSET 92515 12/15/202312/14, 12/14/2022, 07/19/2022, Additional history exists DTaP,Tdap,and Td Vaccines (2 - Td or Tdap) 12/31/2029 01/01/2020 (Declined), 12/30/2009, 12/30/2009, Additional history exists Pneumococcal Vaccine: 65+ Years Completed 02/08/2017, 02/23/2006 VITAMIN D LEVEL ONCE IN A LIFETIME-USE SMARTSET# 93547 Completed 11/05/2022, 04/14/2022, 03/08/2022, Additional history exists [...] this encounter Medical Devices Implanted Type Area Automatic Developer Device Identifier Shelf Expiration Date Model / Serial / Lot Pacer Advisa Dr Dorsey - [id number] - [id number] Implanted:Qty: 1 on 04/11/2017 by Elda Patterson DO at OR [facility] Left: Chest [employer] 08/25/2018 A2DR01 / [id number] / documented as of this encounter Advance Directives Documents on File Type Date Recorded 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
--- OUTSIDE RECORDS SUMMARY | 2023-05-27 20:54 | External Medical Summary ---
Author Name Unknown Address Unknown Organization K01:[facility] - [address] [facility] [address] Laboratory Report Ordering Provider Test Date Status DAY MOY 12/14/2022 15:25:17 Final Observation Date Value Abnormality Reference (Units ) Status SYNC LEUKOCYTES IN BLOOD BY AUTOMATED COUNT 12/14/2022 15:25:17 6.66 4.00-10.80 (K/uL) Final Segs 12/14/2022 15:25:17 60.5 40.0-75.0 (%) Final Lymphs % 12/14/2022 15:25:17 21.0 18.0-42.0 (%) Final Monos 12/14/2022 15:25:17 12.6 Above high normal 1.0-11.0 (%) Final Eosinophils 12/14/2022 15:25:17 4.2 0.0-6.0 (%) Final Basos 12/14/2022 15:25:17 0.9 0.0-2.0 (%) Final Immature Granulocyte, Percent 12/14/2022 15:25:17 0.8 0.0-2.0 (%) Final Absolute Segs 12/14/2022 15:25:17 4.03 1.80-7.70 (K/uL) Final Lymphs, absolute 12/14/2022 15:25:17 1.40 1.00-4.80 (K/ul) Final Monos, Abs 12/14/2022 15:25:17 0.84 0.00-1.10 (K/uL) Final Eos, Abs 12/14/2022 15:25:17 0.28 0.00-0.70 (K/uL) Final Basos, Abs 12/14/2022 15:25:17 0.06 0.00-0.20 (K/uL) Final Immature Granulocytes, Number 12/14/2022 15:25:17 0.05 0.00-0.20 (K/uL) Final Performing Location LABORATORY [facility] - [address] [facility] [address]
--- OUTSIDE RECORDS SUMMARY | 2023-05-27 20:54 | External Medical Summary | Summary of Care ---
Author Name Unknown Organization [facility] Address [address] [place] [address] Phone [phone] Care Team Providers Care Cycle Consultant Name Role Phone Cathy Wilburn MD Primary Care Provide r Encounter Details Date Type Department Care Team Description 12/09/2022 Result Scan Unspecified Department Mauro Calvin MD [address] [place] [address] <No scans attached> Allergies Active Allergy Reactions Severity Noted Date Comments Alendronate Sodium Wheezing High [...] as of this encounter (statuses as of 12/13/2022) Medications Medication Sig Dispensed Refills Start Date [...] 40 MG Oral Tablet (Lipitor)Indications :Atherosclerosis of [place] coronary artery of [place] heart without angina pectoris,Dyslipidemi a, goal LDL [...] as of this encounter (statuses as of 12/13/2022) Active Problems Problem Noted Date 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 stage 3b chronic kidney disease 08/10/2021 Overview: Per CKD protocol History of pulmonary embolism 07/22/2021 History of DVT (deep vein thrombosis) Overview: Distal RLE History of colon cancer 07/17/2021 Tachy-kraig syndrome 07/17/2021 Nonischemic cardiomyopathy 07/08/2021 LVH (left ventricular hypertrophy) 06/03 Status post right hemicolectomy 05/13/19 22 Chronic kidney disease, stage 3b 022 Overview: Per CKD protocol History of unexplained bleeding 02/11/20 21 Iron deficiency anemia 12/24/2020 Moderate episode of recurrent major depr essive disorder 2020 Mixed stress and urge urinary incontinen ce 05/08/2020 Thrombophlebitis of superficial veins of left lower extremity 01/01/2020 Thoracic aorta atherosclerosis 0 History of falling 09/07/2019 Peripheral edema 09/07/2019 Pernicious anemia 11/22/2018 MARTI (obstructive sleep apnea) 04/27/2018 Primary osteoarthritis of both knees B12 deficiency 11/17/2017 Family history of von Willebrand disease 10/18/2017 Paroxysmal atrial fibrillation 8 Cardiac pacemaker in situ 04/19/2017 Encounter for long-term (current) use of high-risk medication 02/08/2017 Multiple thyroid nodules 01/05/2017 Hx of nonmelanoma skin cancer 09/27/2016 Overview: basal cell carcinoma (upper central forehead) Chronic diastolic heart failure 03/06/19 16 Dyslipidemia, goal LDL below 100 015 Allergic rhinitis 10/06/2012 Varicose vein of leg 06/17/2012 Venous insufficiency 10/22/2009 Dyslipidemia, goal LDL below 70 10/10/19 10 Anxiety state 05/02/2009 Degeneration of lumbosacral intervertebr al disc 02/04/2009 Coronary atherosclerosis of [place] coron oh artery 02/24/2005 Senile osteoporosis 05/14/2003 Carpal tunnel syndrome 04/23/2003 Moderate mitral regurgitation GENERAL OSTEOARTHROSIS Gastroesophageal reflux disease without esophagitis Vitamin D deficiency Hyperparathyroidism, primary documented as of this encounter (statuses as of 12/13/2022) Resolved Problems Problem Noted Date Resolved Date Acute pulmonary embolism 07/17/2021 022 Chronic systolic heart failure 06/03/2021 0 06/03/2021 LAE (left atrial enlargement) 06/03/2021 Overview: Duplicate DVT, lower extremity, distal, acute, right 06/0307/22/2021 Pulmonary embolism and infarction 06/03/2021 07/22/2021 Malignant [...] 04/15/2021 Overview: Per CKD protocol Hyperparathyroidism 04/02/2020 2020 Stage 3a chronic kidney disease 01/07/2020 06/12/2020 Overview: Per CKD protocol 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 diastolic congestive heart failure and stage 3a chronic kidney disease 01/07/2020 04/15/2021 Overview: Per CKD protocol Acute post-hemorrhagic anemia 10/22/2019 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 05/25/2018 01/10/2020 Overview: Per CKD protocol MEDICATION USE AGREEMENT 02/08/2017 020 Atrial fibrillation with RVR 07/30/2016 Orthostatic hypotension 01/15/2016 07/16/19 18 Essential hypertension with goal blood pressure less than 140/90 11/24/2015 05/22/2020 Atypical chest pain 06/19/2015 06/02/2016 Constipation 04/24/2015 02/08/2017 Kidney disease, chronic, stage III (GFR 30-59 ml /min) 04/08/2015 01/10/2020 Overview: Per CKD protocol Pericarditis 03/06/2015 11/24/2015 Encounter for surveillance of abnormal nevi 08/2805/29/2018 Overview: mildly dysplastic nevus (R thigh) HTN, goal below 140/90 05/28/2014 6 Hypertension goal BP (blood pressure) < 140/80 1 05/28/2014 Osteoporosis 12/10/2013 12/23/2017 Localized, primary osteoarthritis of hand 201001/18/2012 Adjustment disorder with mix ed disturbance of emotions and conduct 05/02/2009 01/15/2015 ACTIVE CASE MANAGEMENT Carlie Santiago RN 03/18/2009 12/15/2009 HTN, goal below 130/80 02/04/2009 5 Dyslipidemia, goal LDL below 100 02/04/2009 10/09/2009 Overview: Per Lipid Taxonomy. HTN, goal below 140/90 01/03/2009 9 Overview: Modified per HTN Taxonomy. Hyperparathyroidism 07/02/2008 10/01/2008 Overview: RLP Parathyroid adenoma resection Benjy Gonzalez, July 02, 2008 ICD-10 update of inactive term Slow transit constipation 02/09/20082018 Postmenopausal atrophic vaginitis 02/09/2008 07/15/2017 Hypercalcemia 07/14/2005 05/22/2007 PVC (premature ventricular contraction) 05/27/19 06 04/21/2017 Ischemic cardiomyopathy 02/25/2005 08/13/19 17 ADVANCE DIRECTIVE INFORMATION 02/24/2005 Overview: No, Advance Directive brochure given to patient at prior appointment. OSTEOARTHROS NOS-L-LEG 05/26/2004 8 TENOSYNOV HAND-WRIST NEC 04/23/2003 008 CERVICAL DISC DEGEN 12/25/2002 02/08/2017 LOC PRIM [id number] 02/14/2002 06/21/19 08 Other seborrheic keratosis 10/31/200106/05 neurofibroma 10/31/2001 06/06/2007 BENIGN NEOPLASM SKIN NOS 10/25/2001 008 Pain in limb 07/29/2001 05/22/2007 Need for prophylactic hormon e replacement therapy (postmenopausal) 11/18/2000 05/22/2007 Reflux esophagitis 11/18/2000 05/22/2007 SBE (subacute bacterial endocarditis) prophylaxi s candidate 06/06/2007 Mitral valve disorder 10/06/2012 DIFFUS CYSTIC MASTOPATHY 008 BENIGN NEOPLASM LG BOWEL 017 BENIGN HYPERTENSION 01/03/2009 Overview: Modified per HTN Taxonomy. Menopause 05/22/2007 GANGLION OF TENDON 05/22/2007 Atrial premature beats 8 Paroxysmal atrial tachycardia FX FACIAL BONE NEC-CLOSE 008 Syncope and collapse 06/06/2007 Asthma with severity to be determined 10/22/2009 Overview: ICD-10 update of inactive term BENIGN PARXYSMAL VERTIGO 017 Other specified causes of urethral stricture 06/06/2007 History of skin cancer 7 Tachycardia 05/22/2007 Mixed dyslipidemia 02/04/2009 Overview: Per Lipid Taxonomy. Vitamin B deficiency 02/25/2014 documented as of this encounter (statuses as of 12/13/2022) Immunizations Name Administration Dates Next Due Pneumococcal [...] drink = 0.6 oz pur e alcohol) Food Insecurity Answer Date Recorded Within the past 12 months, y ou worried that your food would run out before you got money to buy more. Never true 12/20/2019 Within the past 12 months, t he food you bought just didn't last and you didn't have money to get more. Never true 12/20/2019 Sex Assigned at Date Recorded Not on file Job Start Date Occupation Industry Not on [...] Plan of Treatment Upcoming Encounters Date Type Specialty Care Team Description 12/14/2022 Office Visit Hematology Oncology Matt Faustin MD [address] [place] [address] 12/17/2022 Laboratory Laboratory Processing [facility] [place] Draw [address] [place] [address] 12/20/2022 Anticoagulation Pharmacy [facility] [address] [place] [address] 12/20/2022 Nurse Only Rheumatology [place], Nurse Rheum [address] [place] [phone] 03/17/2023 Office Visit Family Medicine Cathy Wilburn MD [address] [place] [address] [place] [address] 03/31/2023 Office Visit Cardiology Poli Zepeda PA-C [address] [place] [address] 04/26/2023 Cardiac Studies Cardiology [facility], [facility] [address] [place] [address] 04/27/2023 Office Visit Endocrinology Geraldine Hartley MD [address] [place], [place] [phone] 04/27/2023 Office Visit Nephrology Josie Butler MD [address] [place] [address] 10/12/2023 Office Visit Sleep Disorders Isabel Diallo, [address] [place] [address] Health Maintenance Due Date Last Done Comments COVID-19 Vaccine (#1) 1935 Depression Screening 05/30/2021 05/30/2020 DIG LEVEL FOR MEDICATION MONITORING YEARLY 03/08/2023 03/08/2022, 06/12/2021, 05/18/2021, Additional history exists Albumin/Creatinine Ratio 07/20/2023 023, 04/06/2021, 05/30/2020, Additional history exists CKD HGB USE SMARTSET 90670 07/20/202307/19, 07/19/2022, 07/07/2022, Additional history exists DXA Scan 10/22/2023 10/21/2021, 07/0 02/2018, 12/29/2015, Additional history exists CKD PHOS USE SMARTSET 78216 11/06/2023 09/0 09/2022, 04/14/2022, 10/06/2021, Additional history exists DTaP,Tdap,and Td Vaccines (2 - Td or Tdap) 12/31/2029 01/01/2020 (Declined), 12/30/2009, 12/30/2009, Additional history exists Pneumococcal Vaccine: 65+ Years Completed 02/08/2017, 02/23/2006 VITAMIN D LEVEL ONCE IN A LIFETIME-USE SMARTSET# [id number] Completed 11/05/2022, 04/14/2022, 03/08/2022, Additional history exists [...] this encounter Medical Devices Implanted Type Area Senior Analysis Specialist Device Identifier Shelf Expiration Date Model / Serial / Lot Pacer Advisa Dr Dorsey - [id number] - [id number] Implanted:Qty: 1 on 04/11/2017 by Elda Patterson DO at OR [facility] Left: Chest [employer] 08/25/2018 [id number] / [id number] / documented as of this encounter Procedures Procedure Name Priority Date/Time Associated Diagnosis Comments PATHOLOGY SCANNED RESULT 12/09/2022 documented in this encounter Results * PATHOLOGY SCANNED RESULT (12/09/2022) 12/09/2022 Mauro Calvin MD PATHOLOGY documented in this encounter Advance Directives Documents on File Type Date Recorded Patient Solutions Manager Expl anation POLST 01/05/2021 [place] OR [facility]ERS FOR LIFE-SUSTAINING TREATMENT Latest Code Status on File Code Status Date Activated Date Inactivated Comments Full Code 07/02/2008 9:35 AM 07/03/2008 5:40 PM Care Teams Cycle Consultant Relationship Specialty Start Date End Date Cathy Wilburn MD [address] [place] [address] [place] [phone] PCP - General Family Medicine 12/03/22 documented as of this encounter
--- OUTSIDE RECORDS SUMMARY | 2023-05-27 20:54 | External Medical Summary ---
Author Name Unknown Address Unknown Organization [id number]:LABORATORY [facility] [place] - [address] [facility] [address] [facility] [place] [address] Laboratory Report Ordering Provider Test Date Status DAY MOY 12/14/2022 15:25:17 Final Observation Date Value Abnormality Reference (Units ) Status WBC, Total 12/14/2022 15:25:17 6.66 4.00-10.80 (K/uL) Final RBC 12/14/2022 15:25:17 3.58 3.85-5.15 (M/uL) Final Hemoglobin 12/14/2022 15:25:17 10.4 Below low normal 12.0-15.3 (g/dL) Final HCT 12/14/2022 15:25:17 35.9 Below low normal 36.0-45.2 (%) Final MCV 12/14/2022 15:25:17 100.3 81.5-97.5 (fL) Final MCH 12/14/2022 15:25:17 29.1 27.0-34.0 (pg) Final MCHC 12/14/2022 15:25:17 29.0 32.0-36.0 (g/dL) Final RDW 12/14/2022 15:25:17 15.0 11.5-15.5 (%) Final Platelets 12/14/2022 15:25:17 223 140-400 (K/uL) Final MPV 12/14/2022 15:25:17 9.6 6.6-11.1 (fL) Final Nucleated erythrocytes/100 leukocytes [Ratio] in Blood by Automated count 12/14/2022 15:25:17 0 <=0 (/100 WBCs) Final Performing Location LAB[facility]ORY [facility] [place] - [facility] [address] [facility] [place] [address]
--- OUTSIDE RECORDS SUMMARY | 2023-05-27 20:54 | External Medical Summary | Summary of Care ---
Author Name Unknown Organization [facility] Address [address] [facility] [address] Phone [phone] Care Team Providers Care Water Operator Name Role Phone Cathy Wilburn MD Primary Care Provide r Encounter Details Date Type Department Care Team Description 12/09/2022 Procedure Only Endoscopy, [facility] [address] [place] [address] Mauro Calvin MD [address] [place] [address] History of colon polyps* Allergies Active Allergy Reactions Severity Noted Date [...] as of this encounter (statuses as of 12/15/2022) Medications Medication Sig Dispensed Refills Start Date [...] THE MORNING 30 Tablet 5 08/04/2022 Active amLODIPine Besylate 5 MG Oral Tablet (Norvasc) TAKE ONE TABLET BY MOUTH IN THE MORNING 30 Tablet 08/04/2022 Active Atorvastatin Calcium 40 MG Oral Tablet (Lipitor)Indications :Atherosclerosis of [place] coronary artery of [place] heart without angina pectoris,Dyslipidemi a, goal LDL [...] as of this encounter (statuses as of 12/15/2022) Active Problems Problem Noted Date Hypertensive heart [...] intervertebr al disc 02/04/2009 Coronary atherosclerosis of [place] coron oh artery 02/24/2005 Senile osteoporosis 05/14/2003 Carpal tunnel syndrome 04/23/2003 Moderate mitral regurgitation GENERAL OSTEOARTHROSIS Gastroesophageal reflux disease without esophagitis Vitamin D deficiency Hyperparathyroidism, primary documented as of this encounter (statuses as of 12/15/2022) Resolved Problems Problem Noted Date Resolved Date [...] CERVICAL DISC DEGEN 12/25/2002 02/08/2017 LOC PRIM [id number] 02/14/2002 06/21/19 08 Other seborrheic keratosis 10/31/200106/05 [...] as of this encounter (statuses as of 12/15/2022) Immunizations Name Administration Dates Next Due Pneumococcal [...] Encounters Date Type Specialty Care Team Description 12/17/2022 Laboratory Laboratory Processing [facility] [place] Mobile Home Draw [address] [place] [address] 12/20/2022 [facility] [address] [place] [address] 12/20/2022 Nurse Only Rheumatology [place], Nurse [address] [place] [phone] 03/17/2023 Office Visit Family Medicine Cathy Wilburn MD [address] [place] [address] [place] [address] 03/31/2023 Office Visit Cardiology Poli Zepeda PA-C [address] [facility] [address] 04/26/2023 Cardiac Studies Cardiology Barbara Pacejesús [facility] [address] [facility] [address] 04/27/2023 Office Visit Endocrinology Geraldine Hartley MD [address] [place] [address] 04/27/2023 Office Visit Nephrology Josie Butler MD [address] [place] [address] 06/08/2023 Laboratory Laboratory [place], Lab [address] [place] [address] 06/15/2023 Office Visit Hematology Oncology Matt Faustin MD [address] [place] [address] 10/12/2023 Office Visit Sleep Disorders Isabel Diallo, [address] [place] [address] Health Maintenance Due Date Last Done Comments COVID-19 Vaccine (#1) 1935 Depression Screening 05/30/2021 05/30/2020 DIG LEVEL FOR MEDICATION MONITORING YEARLY 03/08/2023 03/08/2022, 06/12/2021, 05/18/2021, Additional history exists Albumin/Creatinine Ratio 07/20/2023 023, 04/06/2021, 05/30/2020, Additional history exists DXA Scan 10/22/2023 10/21/2021, 02/2018, 12/29/2015, Additional history exists CKD PHOS USE SMARTSET 57565 11/06/2023 090 09/2022, 04/14/2022, 10/06/2021, Additional history exists CKD HGB USE SMARTSET 51579 12/15/202312/14, 12/14/2022, 07/19/2022, Additional history exists DTaP,Tdap,and Td Vaccines (2 - Td or Tdap) 12/31/2029 01/01/2020 (Declined), 12/30/2009, 12/30/2009, Additional history exists Pneumococcal Vaccine: 65+ Years Completed 02/08/2017, 02/23/2006 VITAMIN D LEVEL ONCE IN A LIFETIME-USE SMARTSET# [id number] Completed 11/05/2022, 04/14/2022, 03/08/2022, Additional history exists [...] this encounter Medical Devices Implanted Type Area Fruit Buying Grader Device Identifier Shelf Expiration Date Model / Serial / Lot Pacer Advisa Dr Dorsey - [id number] - [id number] Implanted:Qty: 1 on 04/11/2017 by Elda Patterson DO at OR [facility] Left: Chest [employer] 08/25/2018 [id number] / [id number] / documented as of this encounter Procedures Procedure Name Priority Date/Time Associated Diagnosis Comments COLONOSCOPY 12/09/2022 documented in this encounter Results * COLONOSCOPY (12/09/2022) 12/09/2022 Mauro Calvin MD GASTRO LOWER documented in this encounter Visit Diagnoses Diagnosis History of colon polyps- Primary Personal history of colonic polyps documented in this encounter Advance Directives Documents on File Type Date Recorded Patient Job Coach Expl anation POLST 01/05/2021 [place] OR [facility] FOR LIFE-SUSTAINING TREATMENT Latest Code Status on File Code Status Date Activated Date Inactivated Comments Full Code 07/02/2008 9:35 AM 07/03/2008 5:40 PM Care Teams Water Operator Relationship Specialty Start Date End Date Cathy Wilburn MD [address] [place] [address] [place] [address] PCP - General Family Medicine 12/03/22 documented as of this encounter
--- OUTSIDE RECORDS SUMMARY | 2023-05-27 20:54 | External Medical Summary | Summary of Care ---
Author Name Unknown Organization [facility] Address [address] [place] [address] Phone [phone] Care Team Providers Care Felt Cutter Name Role Phone Cathy Wilburn MD Primary Care Provide r Reason for Visit * Reason Onset Date Comments case management 12/06/2022 Encounter Details Date Type Department Care Team Description 12/06/2022 Well Surveying Engineer Telephone Family Medicine [address] [phone] Kirsten Diaz, RN [address] [place] [address] case management Allergies Active Allergy Reactions Severity Noted Date [...] as of this encounter (statuses as of 12/07/2022) Medications Medication Sig Dispensed Refills Start Date [...] 40 MG Oral Tablet (Lipitor)Indications :Atherosclerosis of [place] coronary artery of [place] heart without angina pectoris,Dyslipidemi a, goal LDL [...] mg before bedtime. As instructed by the [facility]. 8 mL 0 11/24/2022 Active documented as of this encounter (statuses as of 12/07/2022) Active Problems Problem Noted Date Hypertensive heart [...] intervertebr al disc 02/04/2009 Coronary atherosclerosis of [place] coron oh artery 02/24/2005 Senile osteoporosis 05/14/2003 Carpal tunnel syndrome 04/23/2003 Moderate mitral regurgitation GENERAL OSTEOARTHROSIS Gastroesophageal reflux disease without esophagitis Vitamin D deficiency Hyperparathyroidism, primary documented as of this encounter (statuses as of 12/07/2022) Resolved Problems Problem Noted Date Resolved Date [...] CERVICAL DISC DEGEN 12/25/2002 02/08/2017 LOC PRIM [id number] 02/14/2002 06/21/19 08 Other seborrheic keratosis 10/31/200106/05 [...] as of this encounter (statuses as of 12/07/2022) Immunizations Name Administration Dates Next Due Pneumococcal [...] Telephone Encounter - Kirsten Diaz RN - 12/07/2022 7:59 AM EDT Home visit 12/06/22. 5:15 PM Spoke with patient. Alert, oriented, pleasant. Ambulating with cane. Denies recent falls. Lives in a first floor apartment. Security measures in place to prevent strangers from just walking into her apartment building. 4-5 steps to get up onto the porch. Gave patient 24 hour urine container and 'hat'. Informed her written instructions were included with container, as to whether it had to be kept in fridge or on ice. Advised throw first voided specimen in morning away, then start saving. Do not start until you know you have a way to get it to the clinic/lab the next day. -reports she will start it on Tuesday, as she has a way to get it to the lab on Tuesday. -wants to get it done before she goes for her colonoscopy -reports the doctor really wants it completed. As for her colonoscopy: -reviewed Lovenox injections as bridge while off Jantoven/warfarin -doing correctly, just needed reassurance regarding rotation of sites Arranging transportation with a friend. Patient has a cat, "nasir", that is 18 years old. -going blind -worried she is going to lose her -it cost her over $700 in vet bills last year, she cannot afford that Unsure she remembers which meds to take, and not take, prior to procedure. Had it written down on a piece of scrap paper, but thinks she threw the paper away. She will call the anesthesia department back and ask again, they gave her their phone number. Denies any issues or needs. Next planned contact is in a month, or as needed before. documented in this encounter Plan of Treatment Upcoming Encounters Date Type Specialty Care Team Description 12/09/2022 Procedure Only Endoscopy Mauro Calvin MD [address] [place] [address] 12/14/2022 Office Visit Hematology Oncology Matt Faustin MD [address] [place] [address] 12/17/2022 Laboratory Laboratory Processing [facility] [place] Mobile Home Draw [address] [place] [address] 12/20/2022 [facility] [address] [place] [address] 12/20/2022 Nurse Only Rheumatology [place], Nurse [address] [place] [phone] 03/17/2023 Office Visit Family Medicine Cathy Wilburn MD [address] [place] [address] [place] [address] 03/31/2023 Office Visit Cardiology Poli Zepeda PA-C [address] [place] [address] 04/26/2023 [facility]iac Studies [facility] [address] [place] [address] 04/27/2023 Office Visit Endocrinology Geraldine Hartley MD [address] [place] [address] 04/27/2023 Office Visit Nephrology Josie Butler MD [address] [place] [address] 10/12/2023 Office Visit Sleep Disorders Isabel Diallo, [address] [place] [address] Health Maintenance Due Date Last Done Comments COVID-19 Vaccine (#1) 1935 Depression Screening 05/30/2021 05/30/2020 DIG LEVEL FOR MEDICATION MONITORING YEARLY 03/08/2023 03/08/2022, 06/12/2021, 05/18/2021, Additional history exists Albumin/Creatinine Ratio 07/20/2023 023, 04/06/2021, 05/30/2020, Additional history exists CKD HGB USE SMARTSET 02420 07/20/202307/19, 07/19/2022, 07/07/2022, Additional history exists DXA Scan 10/22/2023 10/21/2021, 07/0 02/2018, 12/29/2015, Additional history exists CKD PHOS USE SMARTSET 84700 11/06/2023 090 09/2022, 04/14/2022, 10/06/2021, Additional history exists DTaP,Tdap,and Td Vaccines (2 - Td or Tdap) 12/31/2029 01/01/2020 (Declined), 12/30/2009, 12/30/2009, Additional history exists Pneumococcal Vaccine: 65+ Years Completed 02/08/2017, 02/23/2006 VITAMIN D LEVEL ONCE IN A LIFETIME-USE SMARTSET# [id number] Completed 11/05/2022, 04/14/2022, 03/08/2022, Additional history exists [...] this encounter Medical Devices Implanted Type Area Vice President Of Manufacturing Device Identifier Shelf Expiration Date Model / Serial / Lot Pacer Advisa Dr Dorsey - [id number] - [id number] Implanted:Qty: 1 on 04/11/2017 by Elda Patterson DO at OR [facility] Left: Chest [employer] 08/25/2018 [id number] / [id number] / documented as of this encounter Advance Directives Documents on File Type Date Recorded Patient Granite Polisher Machine Expl anation POLST 01/05/2021 [place] OR [facility] FOR LIFE-SUSTAINING TREATMENT Latest Code Status on File Code Status Date Activated Date Inactivated Comments Full Code 07/02/2008 9:35 AM 07/03/2008 5:40 PM Care Teams Felt Cutter Relationship Specialty Start Date End Date Cathy Wilburn MD [address] [place] [address] [place] [address] PCP - General Family Medicine 12/03/22 documented as of this encounter
--- OUTSIDE RECORDS SUMMARY | 2023-05-27 20:54 | External Medical Summary | Summary of Care ---
Author Name Unknown Organization [facility] Address [address] [place] [address] Phone [phone] Care Team Providers Care Rn Maternity Name Role Phone Cathy Wilburn MD Primary Care Provide r Reason for Visit * Reason Onset Date Comments case management 12/17/2022 Closing from Bogdan e Management Encounter Details Date Type Department Care Team Description 12/17/2022 Technical Sales Specialist Telephone [address] [phone] Kirsten Diaz RN [address] [place] [address] case management (Closing from Case Managem... 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 stage 3b chronic kidney disease 08/10/2021 Overview: Per CKD protocol History of pulmonary embolism 07/22/2021 History of DVT (deep vein thrombosis) Overview: Distal RLE History of colon cancer 07/17/2021 Tachy-kriag syndrome 07/17/2021 Nonischemic cardiomyopathy 07/08/2021 LVH (left [...] intervertebr al disc 02/04/2009 Coronary atherosclerosis of [place] coron [place] artery 02/24/2005 Senile osteoporosis 05/14/2003 Carpal tunnel syndrome 04/23/2003 Moderate mitral regurgitation GENERAL OSTEOARTHROSIS Gastroesophageal reflux disease without esophagitis Vitamin D deficiency Hyperparathyroidism, primary documented as of this encounter (statuses as of 12/17/2022) Resolved Problems Problem Noted Date Resolved Date [...] 10/01/2008 Overview: RLP Parathyroid adenoma resection Benjy Gonzalez [...] CERVICAL DISC DEGEN 12/25/2002 02/08/2017 LOC PRIM [id number]-A-OSD 02/14/2002 06/21/19 08 Other seborrheic keratosis 10/31/200106/05 [...] as of this encounter (statuses as of 12/17/2022) Immunizations Name Administration Dates Next Due Pneumococcal [...] Telephone Encounter - Kirsten Diaz RN - 12/17/2022 9:35 AM EDT Received call back from patient. Confirmed [facility] scales were picked up by UPS/[employer]. Mobile lab is to be coming today to obtain PT/INR. 24 hour urine collection completed. Patient reports was more complicated than she remembered from the past. She had to shake specimen and pour into small bottles, etc. Chart reviewed - results are still pending. Patient reports this test is to determine where or not she has to have surgery on her parathyroid. Hopeful she will not. Denies any other issues or needs. Planning to close from case management. * Telephone Encounter - Kirsten Diaz RN - 12/17/2022 9:27 AM EDT Attempted to contact patient. No answer. Left message requesting call back. [facility]. Follow-up Routine Attempted Phone Call First Attempt Call Outcome Left Voicemail/Message Plan Will await call back from patient. documented in this encounter Plan of Treatment Upcoming Encounters Date Type Specialty Care Team Description 12/20/2022 Anticoagulation Pharmacy [facility] [address] [facility] [place] [address] 12/20/2022 Nurse Only Rheumatology [place], Nurse [address] [place] [phone] 03/17/2023 Office Visit Family Medicine Cathy Wilburn MD [address] [place] [address] [place] [address] 03/31/2023 Office Visit Cardiology Poli Zepeda PA-C [address] [place] [address] 04/26/2023 Cardiac Studies Cardiology [facility] [address] [place] [address] 04/27/2023 Office Visit Endocrinology Geraldine Hartley MD [address] [place] [address] 04/27/2023 Office Visit Nephrology Josie Butler [place] [address] [place] [address] 06/08/2023 Laboratory Laboratory [address] [place] [address] 06/15/2023 Office Visit Hematology Oncology Matt Faustin MD [address] [place] [address] 10/12/2023 Office Visit Sleep Disorders Isabel Diallo DO [address] [place] [id number] Health Maintenance Due Date Last Done Comments COVID-19 Vaccine (#1) 1935 Depression Screening 05/30/2021 05/30/2020 DIG LEVEL FOR MEDICATION MONITORING YEARLY 03/08/2023 03/08/2022, 06/12/2021, 05/18/2021, Additional history exists Albumin/Creatinine Ratio 07/20/2023 023, 04/06/2021, 05/30/2020, Additional history exists DXA Scan 10/22/2023 10/21/2021, 02/2018, 12/29/2015, Additional history exists CKD PHOS USE SMARTSET 92794 11/06/20230 09/2022, 04/14/2022, 10/06/2021, Additional history exists CKD HGB USE SMARTSET 40726 12/15/202312/14, 12/14/2022, 07/19/2022, Additional history exists DTaP,Tdap,and Td Vaccines (2 - Td or Tdap) 12/31/2029 01/01/2020 (Declined), 12/30/2009, 12/30/2009, Additional history exists Pneumococcal Vaccine: 65+ Years Completed 02/08/2017, 02/23/2006 VITAMIN D LEVEL ONCE IN A LIFETIME-USE SMARTSET# [id number] Completed 11/05/2022, 04/14/2022, 03/08/2022, Additional history exists [...] this encounter Medical Devices Implanted Type Area Supervisor Fleshing Device Identifier Shelf Expiration Date Model / Serial / Lot Pacer Advisa Dr Dorsey - [id number] - [id number] Implanted:Qty: 1 on 04/11/2017 by Elda Patterson DO at OR [facility] Left: Chest [employer] 08/25/2018 [id number] / [id number] / documented as of this encounter Advance Directives Documents on File Type Date Recorded Patient Vaccine Manager Expl anation POLST 01/05/2021 [place] [facility] FOR LIFE-SUSTAINING TREATMENT Latest Code Status on File Code Status Date Activated Date Inactivated Comments Full Code 07/02/2008 9:35 AM 07/03/2008 5:40 PM Care Teams Rn Maternity Relationship Specialty Start Date End Date Cathy Wilburn MD [address] [place] [address] [place] [address] PCP - General Family Medicine 12/03/22 documented as of this encounter
--- OUTSIDE RECORDS SUMMARY | 2023-05-27 20:54 | External Medical Summary ---
Author Name Unknown Address Unknown Organization : Laboratory Report Ordering Provider Test Date Status MARIA FERNANDA APPIAH 12/13/2022 16:12:26 Final Observation Date Value Abnormality Reference (Units ) Status TOTAL URINE VOLUME 12/13/2022 16:12:26 0.70 Below low normal >2.00 (L/day) Final This test was developed and its analytical performance
characteristics have been determined by [facility]. It has not been cleared or approved by the
FDA. This assay has been validated pursuant to the CLIA
regulations and is used for clinical purposes. PH URINE 12/13/2022 16:12:26 6.1 5.5-7.0 Final CALCIUM, 24 HOUR URINE 12/13/2022 16:12:26 88 <250.0 (mg/day) Final This test was developed and its analytical performance
characteristics have been determined by [facility]. It has not been cleared or approved by the
FDA. This assay has been validated pursuant to the CLIA
regulations and is used for clinical purposes. OXALATE, 24 HOUR URINE 12/13/2022 16:12:26 12 <45 (mg/day) Final This test was developed and its analytical performance
characteristics have been determined by [facility]. It has not been cleared or approved by the
FDA. This assay has been validated pursuant to the CLIA
regulations and is used for clinical purposes. URIC ACID, 24 HOUR URINE 12/13/2022 16:12:26 480 <700 (mg/day) Final This test was developed and its analytical performance
characteristics have been determined by [facility]. It has not been cleared or approved by the
FDA. This assay has been validated pursuant to the CLIA
regulations and is used for clinical purposes. CITRIC ACID, 24 HOUR URINE 12/13/2022 16:12:26 122 Below low normal >320 (mg/day) Fin al This test was developed and its analytical performance
characteristics have been determined by [facility]. It has not been cleared or approved by the
FDA. This assay has been validated pursuant to the CLIA
regulations and is used for clinical purposes. SODIUM, 24 HOUR URINE 12/13/2022 16:12:26 50 <200 (mEq/day) Final This test was developed and its analytical performance
characteristics have been determined by [facility]. It has not been cleared or approved by the
FDA. This assay has been validated pursuant to the CLIA
regulations and is used for clinical purposes. SULFATE, 24 HOUR URINE 12/13/2022 16:12:26 4 <30 (mmol/day) Final This test was developed and its analytical performance
characteristics have been determined by [facility]. It has not been cleared or approved by the
FDA. This assay has been validated pursuant to the CLIA
regulations and is used for clinical purposes. PHOSPHORUS, 24 HOUR URINE 12/13/2022 16:12:26 534 <1100 (mg/day) Final This test was developed and its analytical performance
characteristics have been determined by [facility]. It has not been cleared or approved by the
FDA. This assay has been validated pursuant to the CLIA
regulations and is used for clinical purposes. MAGNESIUM, 24 HOUR URINE 12/13/2022 16:12:26 44 Below low normal >60.0 (mg/day) Final This test was developed and its analytical performance
characteristics have been determined by [facility]. It has not been cleared or approved by the
FDA. This assay has been validated pursuant to the CLIA
regulations and is used for clinical purposes. POTASSIUM, 24 HOUR URINE 12/13/2022 16:12:26 24 19-135 (mEq/day) Final This test was developed and its analytical performance
characteristics have been determined by [facility]. It has not been cleared or approved by the
FDA. This assay has been validated pursuant to the CLIA
regulations and is used for clinical purposes. CREATININE, 24 HOUR URINE 12/13/2022 16:12:26 815 145-3771 (mg/day) Final This test was developed and its analytical performance
characteristics have been determined by [facility]. It has not been cleared or approved by the
FDA. This assay has been validated pursuant to the CLIA
regulations and is used for clinical purposes. CALCIUM OXALATE 12/13/2022 16:12:26 1.83 <2.0 0 Final BRUSHITE 12/13/2022 16:12:26 2.75 Above high normal <2 .00 Final SODIUM URATE 12/13/2022 16:12:26 3.62 Above high normal <2.00 Final URIC ACID 12/13/2022 16:12:26 2.36 Above high normal <2 .00 Final THE PATIENT HAS: 12/13/2022 16:12:26 SEE BELOW Final Hypocitraturia
Low urin e volume SUPERSATURATION INDEX: 12/13/2022 16:12:26 SEE BELOW Final Brushite (Ca phosphate)
Monosodium urate
Uric acid SUSPECTED PROBLEM IS: 12/13/2022 16:12:26 SEE BELOW Final Hypocitraturic Nephrolithias is
Uric Acid Lithiasis COMMENTS 12/13/2022 16:12:26 DNR Final Test performed by [facility]
[id number] [facility]
[place] [address]

Major Assembly Lineman: MEGAN GIRALDO M.D.
Test Reported by [facility],
[facility] [place],
[address] [place], [place]
Enrique Mariano M.D., Ph.D., Director of Laboratories
, CLIA [id number] Performing Location
--- OUTSIDE RECORDS SUMMARY | 2023-05-27 20:54 | External Medical Summary ---
Author Name Unknown Address Unknown Organization K01:[facility] [address] [place] [address] Laboratory Report Ordering Provider Test Date Status DAY MOY 12/14/2022 15:25:17 Final Observation Date Value Abnormality Reference (Units ) Status CEA 12/14/2022 15:25:17 3.0 <=5.2 (ng/ mL) Final Performing Location [facility] [address] [place] [id number]
--- OUTSIDE RECORDS SUMMARY | 2023-05-27 20:54 | External Medical Summary | Summary of Care ---
Author Name Unknown Organization [facility] Address [address] [facility] [place] [address] Phone [phone] Care Team Providers Care Hydrographical Technical Officer Name Role Phone Cathy Wilburn MD Primary Care Provide r Reason for Visit * Reason Comments Follow Up Encounter Details Date Type Department Care Team Description 12/14/2022 Office Visit Hematology/Oncology [facility] [place] [address] [facility] [place] [address] Matt Faustin MD [address] [facility] [place] [address] History of colon cancer*; History of pulmonary embolism; History of DVT (deep vein thrombosis) Allergies Active Allergy Reactions Severity Noted Date [...] as of this encounter (statuses as of 12/14/2022) Medications Medication Sig Dispensed Refills Start Date [...] 40 MG Oral Tablet (Lipitor)Indications :Atherosclerosis of ute coronary artery of ute heart without angina pectoris,Dyslipidemi a, goal LDL [...] mg before bedtime. As instructed by the [facility]. 8 mL 0 11/24/2022 Active documented as of this encounter (statuses as of 12/14/2022) Active Problems Problem Noted Date Hypertensive heart [...] intervertebr al disc 02/04/2009 Coronary atherosclerosis of ute coron oh artery 02/24/2005 Senile osteoporosis 05/14/2003 Carpal tunnel syndrome 04/23/2003 Moderate mitral regurgitation GENERAL OSTEOARTHROSIS Gastroesophageal reflux disease without esophagitis Vitamin D deficiency Hyperparathyroidism, primary documented as of this encounter (statuses as of 12/14/2022) Resolved Problems Problem Noted Date Resolved Date [...] CERVICAL DISC DEGEN 12/25/2002 02/08/2017 LOC PRIM [id number] 02/14/2002 06/21/19 08 Other seborrheic keratosis 10/31/200106/05 [...] as of this encounter (statuses as of 12/14/2022) Immunizations Name Administration Dates Next Due Pneumococcal [...] Sign Reading Time Taken Comments Blood Pressure 128/72 12/14/2022 2:56 PM EDT Pulse 92 12/14/2022 2:56 PM EDT Temperature - - Respiratory Rate 16 12/14/2022 2:56 PM EDT Oxygen Saturation 94% 12/14/2022 2:56 PM EDT Inhaled Oxygen Concentration - - Weight 84 kg (185 lb 3.2 oz) 12/14/2022 2:56 PM EDT Height - - Body Mass Index 29.01 12/03/2022 5:04 PM EDT documented in this [...] (15 years old or older) No 04/11/19 Cognitive Status Response Date of Assessm ent Because of a physical, menta l, or emotional condition, do you have serious difficulty concentrating, remembering, or making decisions? (5 years old or older No 04/11/2017 documented as of this encounter Progress Notes * Matt Faustin MD - 12/14/2022 3:22 PM EDT Outpatient Consult Note Data Source: Patient, Epic record. Data Source: Patient, Epic record. 12/14/2022 3:22 PM Miranda Coe [id number] 87 year old Patient Encounter: HEMATOLOGY/ONCOLOGY [facility] Cancer Diagnosis: Malignant neoplasm of ascending colon, underwent laparoscopic right hemicolectomy done on 04/27/2021 and was found to have stage IIA, pT4pN0 disease. On the initial biopsy pathology MSI was high and mutation for B Jae V600 is positive and methylation for promoter MLH1 was also detected. Pulmonary embolism and DVT Current Treatment: Observation Coumadin Previous Treatment: None Oncologic History : 87-year-old female with past history of diastolic heart failure, paroxysmal atrial fibrillation noton anticoagulation because of the risk of fall, CKD, obstructive sleep apnea, GERD and history of anemia was recently diagnosed of the colon cancer. She had colonoscopy on 01/15/2021 for evaluation of anemia and was found to have large ulcerated mass involving the cecum and a portion of the IC valve. Biopsy from the mass was consistent with invasive adenocarcinoma with MSI high: FINAL DIAGNOSIS A. Stomach, biopsy: - Gastric mucosa with no diagnostic abnormality - Negative for intestinal metaplasia, dysplasia and malignancy - Negative for Helicobacter pylori organisms by morphology B. Colon, cecal mass, biopsy: - Invasive adenocarcinoma - MSI - high (MSI-H) C. Colon, polyps, polypectomy: - Tubular adenomas, multiple fragments - Negative for high grade dysplasia Microscopic Description PanCK: highlights the epithelial elements for identification P53: patchy positive staining (wild-type) P40: negative Ki-67: > 90% Immunohistochemistry (IHC) Testing for Mismatch Repair (MMR) Proteins: MLH1: Loss of nuclear expression MSH2: Intact nuclear expression MSH6: Intact nuclear expression PMS2: Loss of nuclear expression Comment: Invasive adenocarcinoma is seen within the cecal mass biopsy. One of the fragments of cancer shows a fairly well to moderately differentiated tumor with gland formation. A separate fragment shows a very poorly differentiated tumor composed of a solid sheet of cells with significant nuclearenlargement and pleomorphism. BRAF Mutation Analysis: Results: Detected Mutation(s): c.1799T>A (p.V600E) MLH1 Promoter Methylation Analysis Results:MLH1 Methylation: Detected Patient underwent Right Laparoscopic Hemicolectomy(Right) by Dr Ashok Salamanca on 04/27/2021 andagain pathology was consistent with adenocarcinoma: Synoptic Report COLON AND RECTUM: Resection, Including Transanal Disk Excision of Rectal Neoplasms SPECIMEN Procedure: Right hemicolectomy TUMOR Tumor Site: Cecum Histologic Type: Adenocarcinoma Histologic Grade: G3: Poorly differentiated Tumor Size: Greatest dimension (Centimeters) - 4.0 cm Tumor Extension: Tumor invades the visceral peritoneum Macroscopic Tumor Perforation: Not identified Lymphovascular Invasion: Not identified Perineural Invasion: Not identified Treatment Effect: No known presurgical therapy MARGINS Margins: All margins are uninvolved by invasive carcinoma, high grade dysplasia / intramucosal carcinoma, and low grade dysplasia Margins Examined: Proximal, Distal, Radial (circumferential) or Mesenteric Distance of Invasive Carcinoma from Closest Margin: 1.0 cm Closest Margin: Radial (circumferential) or Mesenteric Distance of Tumor from Radial (circumferential) Margin: 1.0 cm LYMPH NODES Number of Lymph Nodes Involved: 0 Number of Lymph Nodes Examined: 13 Tumor Deposits: Not identified PATHOLOGIC STAGE CLASSIFICATION (pTNM, AJCC 8th Edition) Note: Reporting of pT, pN, and (when applicable) pM categories is based on information available tothe pathologist at the time the report is issued. As per the AJCC (Chapter 1, 8th Ed.) it is the managing physicians responsibility to establish the final pathologic stage based upon all pertinentinformation, including but potentially not limited to this pathology report. Primary Tumor (pT): pT4a Regional Lymph Nodes (pN): pN0 She was recently admitted to the hospital with complaint of shortness of breath and swelling in thelower extremity. Pulmonary for perfusion imaging demonstrate bilateral segmental and subsegmental pulmonary defects with the high probability of the pulmonary embolus. She also had right lower extremity DVT and currently on Coumadin She denies smoking or drinking alcohol. Family history significant for mother was diagnosed of lymphoma. One brother was diagnosed lung cancer. One sister was diagnosed of uterine cancer. Her own son was also diagnosed of throat cancer. Interval History: No new complain. She continues to complain generalized weakness which is stable. Denies any headache, dizziness, chest pain palpitation, abdominal pain, nausea, vomiting, fever, night sweats. Her weight is stable and she is a good appetite. LABS/IMAGING: Results for orders placed or performed in visit on 11/03/22 PT INR Result Value Ref Range Prothrombin Time 29.4 (H) 11.6 - 15.2 seconds INR 2.8 (H) 0.8 - 1.2 *Note: Due to a large number of results and/or encounters for the requested time period, some results have not been displayed. A complete set of results can be found in Results Review. Recent colonoscopy done on 12/09/2022 which showed scar at the hepatic flexure with some nodularitythat was thought to be clip artifact, a scar in the proximal transverse colon wtih some nodularity that was thought the be clip artifact and Three sessile polyps were found in the transverse colon and ascending colon. Pathology was negative for malignancy REVIEW OF SYSTEMS: General: No Fever, chills, night sweats, or weight loss. HEENT: No change in visual acuity, blurred or double vision. No epistaxis, facial pain, nasal discharge or change in hearing. Denies dysphagia, no muscosal ulceration, or sores noted. Cardiovascular: No chest pain, CARABALLO, or palpitations Respiratory: No shortness of breath, cough, hemoptysis, or pleuritic chest pain Gastrointestinal: No abdominal pain, nausea, vomiting, diarrhea, rectal pain or bleeding Genitourinary: Denies Hematuria or dysuria Musculoskeletal: Generalized weakness Psychiatric: No vegetative signs of depression Endocrine: No symptoms of hypothyroidism or hyperglycemia Hematologic: No bleeding or lymph nodes noted As mentioned above, all of the systems were reviewed in full and are unremarkable. Past Medical History: Diagnosis Date Acute pulmonary embolism ([facility]) 07/17/2021 Allergic rhinitis 10/06/2012 Anxiety state 05/02/2009 Asthma, severity to be determined Atrial premature beats Benign neoplasm of colon 1991 hyperplastic polyp Benign neoplasm of skin Benign paroxysmal vertigo Cardiac pacemaker in situ 04/19/2017 Coronary atherosclerosis of ute coronary artery 02/01 Degeneration of lumbosacral intervertebral disc 02/04/2009 Depressive disorder, not elsewhere classified 05/02/2009 Diffuse cystic mastopathy Diffuse cystic mastopathy DVT, lower extremity, distal, acute, right ([facility]) 06/03/2021 Dyslipidemia, goal LDL below 100 05/28/2014 Dyslipidemia, goal LDL below 70 10/09/2009 Esophageal reflux Essential hypertension with goal blood pressure less than 140/90 11/24/2015 Ganglion of tendon left foot Generalized osteoarthritis HTN, goal below 130/80 02/04/2009 HTN, goal below 140/90 05/28/2014 Hypercalcemia 11/04 Hyperparathyroidism, primary ([facility]) Hyperparathyroidism, unspecified ([facility]) 07/02/2008 RLP Parathyroid adenoma resection Benjy Gonzalez DO July 02, 2008 Hypertension goal BP (blood pressure) < 140/80 02/25/2014 Ischemic cardiomyopathy 02/01 LVEF 40 % on cath Kidney disease, chronic, stage III (GFR 30-59 ml/min) ([facility]) 04/08/2015 LAE (left atrial enlargement) 06/03/2021 Duplicate Localized, primary osteoarthritis of hand 02/04/2011 Malignant neoplasm of ascending colon ([facility]) 05/12/2021 S/P colectomy-No current treatment Menopause Mitral [...] site unspecified 1990 bcc/forehead removed by dr estrada Other premature beats 05/26/2005 Other seborrheic keratosis [...] 08/29 low B12 level Vitamin D deficiency Current Outpatient Medications Medication Sig Dispense Refill [...] TABLET IN THE MORNING 30 Tablet 11 Jantoven 2 MG Oral Tablet (Warfarin Sodium) TAKE ONE TO TWO TABLETS BY MOUTH EVERY EVENING ( PER anti-coagulation clinic) 180 Tablet 1 Losartan Potassium 100 MG Oral Tablet (Cozaar) TAKE ONE TABLET BY MOUTH IN THE MORNING 30 Tablet 5 amLODIPine Besylate 5 MG Oral Tablet (Norvasc) TAKE ONE TABLET BY MOUTH IN THE MORNING 30 Tablet 5 Atorvastatin Calcium 40 MG Oral Tablet (Lipitor) [...] mg before bedtime. As instructed by the [facility]. 8 mL 0 No current facility-administered medications for this visit. Social History Tobacco Use Smoking status: Never Smokeless tobacco: Never Vaping Use Vaping Use: Never used Substance Use Topics Alcohol use: Not Currently Drug use: No Review of patient's allergies indicates: Allergen Reactions [...] Hives Erythromycin Nausea/vomiting Upset stomach PHYSICAL EXAMINATION: General Appearance: Weak appearing patient in no acute distress BP 128/72 (BP Site: Left Arm, BP Position: Sitting, BP Cuff Size: Regular) | Pulse 92 | Resp 16 | Wt 84 kg (185 lb 3.2 oz) | SpO2 94% | BMI 29.01 kg/m | BSA 1.99 m Vitals reviewed. HEENT: No oral or pharyngeal masses, ulceration or thrush noted, no sinus tenderness. Neck is supple with no thyromegaly or JVD noted. Lymph Nodes: No lymphadenopathy noted in the occipital, pre and post auricular, cervical, supra andinfraclavicular, axillary, epitrochlear, inguinal, and popliteal region. Lungs/Thorax: Clear to auscultation, no accessory muscles of respiration being used. Heart: Regular rate and rhythm, normal S1, S2 Abdomen: Soft, nontender, bowel sounds present, no appreciable hepatosplenomegaly, no palpable masses Extremeties: Good pulses bilaterally, no peripheral edema. Skin: Normal skin tone with no rash, petechiae, ecchymosis noted. Musculoskeletal: No pain on palpation over bony prominence, no edema, no evidence of gout, no jointor bony deformity ASSESSMENT: 87-year-old female with past history of diastolic heart failure, paroxysmal atrial fibrillation noton anticoagulation because of the risk of fall, CKD, obstructive sleep apnea, GERD, embolism and DVT and history of anemia was recently diagnosed of the colon cancer. She underwent laparoscopic right hemicolectomy and was found to have stage IIA, pT4pN0 disease. On the initial biopsy pathology MSI was high and mutation for B Jae V600 is positive and methylation for promoter MLH1 was also detected. Patient has high risk disease. Currently she is under follow-up. Overall clinically she is stable without any new symptoms complain. Recent colonoscopy and biopsy was unremarkable and there were no evidence of recurrent disease and biopsy was negative for malignancy. Discussed with the patient about diagnosis reviewed all the available blood test result with her. PLAN: She will have blood test done today including CBC and CMP. She will return clinic for follow-up in 6 months with CBC, CMP and CEA level. The patient voiced understanding of all of the above. All questions and concerns were addressed in an apparently satisfactory manner. Matt Faustin MD (This note was completed using the dictation program Fluency Direct. As such, there may be misspellings, word substitutions, or other variations that should not change the essence of the clinical content of this encounter note. If there is need for further clarification, please direct questions to me.) * Ale LYNDSEY Ornelas - 12/14/2022 2:56 PM EDT Patient identifed by name and birthdate Do you have any concerns about pain management for today's visit? No Living Will or Advance Directive for Health Care as noted on the problem list. [facility] is a way you can talk to your provider on line through e-mail. Would you like to sign up? I can activate it for you? ALREADY ACTIVE Filed Vitals: 12/14/22 1456 BP: 128/72 Pulse: 92 Resp: 16 SpO2: 94% Weight: 84 kg (185 lb 3.2 oz) documented in this encounter Plan of Treatment Upcoming Encounters Date Type Specialty Care Team Description 12/17/2022 Laboratory Laboratory Processing [facility], [facility] Home Draw [address] [place] [address] 12/20/2022 Anticoagulation Pharmacy [facility] [address] [place] [address] 12/20/2022 Nurse Only Rheumatology [place], Nurse Rheum [address] [place] [phone] 03/17/2023 Office Visit Family Medicine Cathy Wilburn MD [address] [place] [address] [place] [phone] 03/31/2023 Office Visit Cardiology Poli Zepeda PA-C [address] [place] [address] 04/26/2023 Cardiac Studies Cardiology [facility] [address] [place] [address] 04/27/2023 Office Visit Endocrinology Geraldine Hartley MD [address] [place] [address] 04/27/2023 [facility] [address] [facility] [address] 06/08/2023 Laboratory Laboratory [address] [place] [address] 06/15/2023 Office Visit Hematology Oncology Matt Faustin MD [address] [facility] [place] [address] 10/12/2023 Office Visit Sleep Disorders Isabel Diallo, DO [address] [place] [address] Scheduled Orders Name Type Priority Associated Diagnoses Orde r Schedule CBC WITH WBC DIFFERENTIAL Lab Routine History of colon cancer History of pulmonary embolism History of DVT (deep vein thrombosis) Expected: 06/13/2023, Expires: 12/20/2023 COMPREHENSIVE METABOLIC PANEL Lab Routine History of colon cancer History of pulmonary embolism History of DVT (deep vein thrombosis) Expected: 06/13/2023, Expires: 12/20/2023 CEA Lab Routine History of colon cancer History of pulmonary embolism History of DVT (deep vein thrombosis) Expected: 06/13/2023, Expires: 12/20/2023 Health Maintenance Due Date Last Done Comments COVID-19 Vaccine (#1) 1935 Depression Screening 05/30/2021 05/30/2020 DIG LEVEL FOR MEDICATION MONITORING YEARLY 03/08/2023 03/08/2022, 06/12/2021, 05/18/2021, Additional history exists Albumin/Creatinine Ratio 07/20/2023 023, 04/06/2021, 05/30/2020, Additional history exists CKD HGB USE SMARTSET 02407 07/20/202307/19, 07/19/2022, 07/07/2022, Additional history exists DXA Scan 10/22/2023 10/21/2021, 070 02/2018, 12/29/2015, Additional history exists CKD PHOS USE SMARTSET 53664 11/06/20230 09/2022, 04/14/2022, 10/06/2021, Additional history exists DTaP,Tdap,and Td Vaccines (2 - Td or Tdap) 12/31/2029 01/01/2020 (Declined), 12/30/2009, 12/30/2009, Additional history exists Pneumococcal Vaccine: 65+ Years Completed 02/08/2017, 02/23/2006 VITAMIN D LEVEL ONCE IN A LIFETIME-USE SMARTSET# [id number] Completed 11/05/2022, 04/14/2022, 03/08/2022, Additional history exists [...] encounter Medical Devices Implanted Type Area Fire Investigator Device Identifier Shelf Expiration Date Model / Serial / Lot Pacer Advisa Dr Dorsey - [id number] - [id number] Implanted:Qty: 1 on 04/11/2017 by Elda Patterson DO at OR [facility] Left: Chest [employer] 08/25/2018 [id number] / [id number] / documented as of this encounter Visit Diagnoses Diagnosis History of colon cancer- Primary Personal history of malignant neoplasm of large intestine History of pulmonary embolism Personal history of pulmonary embolism History of DVT (deep vein thrombosis) Personal history of venous thrombosis and embolism documented in this encounter Advance Directives Documents on File Type Date Recorded 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
--- OUTSIDE RECORDS SUMMARY | 2023-05-27 20:54 | External Medical Summary ---
Author Name Unknown Address Unknown Organization [id number]:LABORATORY [facility] - [address] [place] [address] Laboratory Report Ordering Provider Test Date Status LETICIA MADRIGAL 12/17/2022 09:55:00 Final Standing order for pt/inr. < br/>Please draw pt/inr every 1 to 4 weeks as requested
Results to [facility]

Warfarin Therapy
INR: 2.0-3.0 conventional anticoagulation
INR: 2.5-3.5 high intensity anticoagulation Observation Date Value Abnormality Reference (Units ) Status PT 12/17/2022 09:55:00 19.6 Above high normal 11 .6-15.2 (seconds) Final INR 12/17/2022 09:55:00 1.6 Above high normal 0. 8-1.2 Final Performing Location LABORATORY [facility] - [address] [facility] [address]
--- OUTSIDE RECORDS SUMMARY | 2023-05-27 20:54 | External Medical Summary ---
Author Name Unknown Address Unknown Organization K09:[facility] [place] [address] Laboratory Report Ordering Provider Test Date Status DAY MOY 12/14/2022 15:25:17 Final Observation Date Value Abnormality Reference (Units ) Status BUN 12/14/2022 15:25:17 20 6-20 (mg/dL) Final Creatinine 12/14/2022 15:25:17 1.1 Above high normal 0.5-1.0 (mg/dL) Final Glomerular filtration rate/1.73 sq M.predicted [Volume Rate/Area] in Serum, Plasma or Blood by Creatinine-based formula (CKD-EPI) 12/14/2022 15:25:17 52 Below low normal >=60 (mL/min) Final eGFR is calculated based on the CKD-EPI 2020 equation SODIUM 12/14/2022 15:25:17 140 135-146 (m mol/L) Final Potassium 12/14/2022 15:25:17 3.9 3.5-5.1 (m mol/L) Final Cl 12/14/2022 15:25:17 105 98-107 (mm ol/L) Final CO2 12/14/2022 15:25:17 25 22-32 (mmo l/L) Final Anion gap 12/14/2022 15:25:17 10 7-15 (mmol /L) Final Glucose 12/14/2022 15:25:17 97 70-120 (mg /dL) Final Albumin 12/14/2022 15:25:17 4.1 3.8-5.0 (g /dL) Final AST (Aspartate aminotransferase) 12/14/2022 15:25:17 21 10-35 (U/L) Final Alk Phos 12/14/2022 15:25:17 68 35-130 (U/ L) Final Bilirubin, Total 12/14/2022 15:25:17 0.8 <=1 .2 (mg/dL) Final Calcium 12/14/2022 15:25:17 10.0 8.4-10.2 ( mg/dL) Final Protein 12/14/2022 15:25:17 6.4 6.0-8.3 (g /dL) Final ALT (Alanine aminotransferase) 12/14/2022 15:25:17 23 10-35 (U/L) Final Performing Location [facility] [address] [place] [address]
--- OUTSIDE RECORDS SUMMARY | 2023-05-27 20:54 | External Medical Summary | Summary of Care ---
Author Name Unknown Organization [facility] Address [address] [place] [address] Phone [phone] Care Team Providers Care Microfiche Camera Operator Name Role Phone Cathy Wilburn MD Primary Care Provide r Encounter Details Date Type Department Care Team Description 12/09/2022 Result Scan Unspecified Department Mauro Calvin MD [address] [place] [address] <No scans attached> Allergies Active Allergy Reactions [...] 40 MG Oral Tablet (Lipitor)Indications :Atherosclerosis of jamul coronary artery of jamul heart without angina pectoris,Dyslipidemi a, goal LDL [...] by the [facility]. 8 mL 0 11/24/2022 Active [...] intervertebr al disc 02/04/2009 Coronary atherosclerosis of jamul coron oh artery 02/24/2005 Senile osteoporosis 05/14/2003 [...] CERVICAL DISC DEGEN 12/25/2002 02/08/2017 LOC PRIM [id number] 02/14/2002 06/21/19 08 Other seborrheic keratosis 10/31/200106/05 [...] Care Team Description 12/17/2022 Laboratory Laboratory Processing [facility], [facility] Mobile Home Draw [address] [place] [address] 12/20/2022 Anticoagulation Pharmacy [facility] [address] [place] [address] 12/20/2022 Nurse Only Rheumatology Lu[place], Nurse [address] [place] [phone] 03/17/2023 Office Visit Family Medicine Cathy Wilburn MD [address] [place] [address] [place] [address] 03/31/2023 Office Visit Cardiology Poli Zepeda PA-C [address] [facility] [facility] [address] 04/26/2023 Cardiac Studies [facility] [address] [place] [address] 04/27/2023 Office Visit Endocrinology Geraldine Hartley MD [address] [place] [address] 04/27/2023 Office Visit Nephrology Josie Butler MD [address] [facility] [place] [address] 06/08/2023 Laboratory Laboratory Maia Dee [address] [place] [address] 06/15/2023 Office Visit Hematology Oncology Matt Faustin MD [address] [place] [address] 10/12/2023 Office Visit Sleep Disorders Isabel Diallo, [address] [place] [address] Health Maintenance Due Date Last Done Comments COVID-19 Vaccine (#1) 1935 Depression Screening 05/30/2021 05/30/2020 DIG LEVEL FOR MEDICATION MONITORING YEARLY 03/08/2023 03/08/2022, 06/12/2021, 05/18/2021, Additional history exists Albumin/Creatinine Ratio 07/20/2023 023, 04/06/2021, 05/30/2020, Additional history exists DXA Scan 10/22/2023 10/21/2021, 070 02/2018, 12/29/2015, Additional history exists CKD PHOS USE SMARTSET 66085 11/06/20230 09/2022, 04/14/2022, 10/06/2021, Additional history exists CKD HGB USE SMARTSET 46847 12/15/202312/14, 12/14/2022, 07/19/2022, Additional history exists DTaP,Tdap,and Td Vaccines (2 - Td or Tdap) 12/31/2029 01/01/2020 (Declined), 12/30/2009, 12/30/2009, Additional history exists Pneumococcal Vaccine: 65+ Years Completed 02/08/2017, 02/23/2006 VITAMIN D LEVEL ONCE IN A LIFETIME-USE SMARTSET# [id number] Completed 11/05/2022, 04/14/2022, 03/08/2022, Additional history exists [...] this encounter Medical Devices Implanted Type Area Network Support Administrator Device Identifier Shelf Expiration Date Model / Serial / Lot Pacer Advisa Dr Dorsey - [id number] - [id number] Implanted:Qty: 1 on 04/11/2017 by Elda Patterson DO at OR [facility] Left: Chest [employer] 08/25/2018 [id number] / [id number] / documented as of this encounter Procedures Procedure Name Priority Date/Time Associated Diagnosis Comments PATHOLOGY SCANNED RESULT 12/09/2022 documented in this encounter Results * PATHOLOGY SCANNED RESULT (12/09/2022) 12/09/2022 Mauro Calvin MD PATHOLOGY documented in this encounter Advance Directives Documents on File Type Date Recorded Patient Patent Clerk Expl anation POLST 01/05/2021 [place] [facility] FOR LIFE-SUSTAINING TREATMENT Latest Code Status on File Code Status Date Activated Date Inactivated Comments Full Code 07/02/2008 9:35 AM 07/03/2008 5:40 PM Care Teams Microfiche Camera Operator Relationship Specialty Start Date End Date Cathy Wilburn MD [address] [place] [address] [place] [address] PCP - General Family Medicine 12/03/22 documented as of this encounter
--- OUTSIDE RECORDS SUMMARY | 2023-05-27 20:54 | External Medical Summary | Summary of Care ---
Author Name Unknown Organization [facility] Address [address] [facility] [place] [address] Phone [phone] Care Team Providers Care Instructional Aide Name Role Phone Cathy Wilburn MD Primary Care Provide r Reason for Visit * Reason Comments Outpatient Testing Encounter Details Date Type Department Care Team Description 12/13/2022 Laboratory Laboratory [address] [place] [phone] , Specimen Drop Off [address] [place] [address] Arrived Allergies Active Allergy Reactions Severity Noted Date [...] 40 MG Oral Tablet (Lipitor)Indications :Atherosclerosis of quina[place] coronary artery of [place] heart without angina pectoris,Dyslipidemi a, goal LDL [...] mg before bedtime. As instructed by the [facility]in [facility]. 8 mL 0 11/24/2022 [...] intervertebr al disc 02/04/2009 Coronary atherosclerosis of [place] coron oh artery 02/24/2005 Senile osteoporosis 05/14/2003 [...] CERVICAL DISC DEGEN 12/25/2002 02/08/2017 LOC PRIM [id number] 02/14/2002 06/21/19 08 Other seborrheic keratosis 10/31/200106/05 [...] Team Description 12/14/2022 Office Visit Hematology Oncology RaminMatt MD [address] [place] [facility] [place] [address] 12/17/2022 Laboratory Laboratory Processing [facility], [facility] Mobile Home Draw [address] [place] [address] 12/20/2022 Anticoagulation Pharmacy [facility] [address] [place] [address] 12/20/2022 Nurse Only Rheumatology [place], Nurse Rheum [address] [place] [phone] 03/17/2023 Office Visit Family Medicine Cathy Wilburn MD [address] [place] [address] [place] [address] 03/31/2023 Office Visit Cardiology Poli Zepeda PA-C [address] [place] [address] 04/26/2023 Cardiac Studies [facility] [address] [place] [address] 04/27/2023 Office Visit Endocrinology Geraldine Hartley MD [address] [place] [address] 04/27/2023 Office Visit Nephrology Josie Butler MD 200 [facility] [place], [place] [address] 10/12/2023 Office Visit Sleep Disorders Isabel Diallo, [address] [place] [address] Health Maintenance Due Date Last Done Comments COVID-19 Vaccine (#1) 1935 Depression Screening 05/30/2021 05/30/2020 DIG LEVEL FOR MEDICATION MONITORING YEARLY 03/08/2023 03/08/2022, 06/12/2021, 05/18/2021, Additional history exists Albumin/Creatinine Ratio 07/20/2023 023, 04/06/2021, 05/30/2020, Additional history exists CKD HGB USE SMARTSET 15959 07/20/202307/19, 07/19/2022, 07/07/2022, Additional history exists DXA Scan 10/22/2023 10/21/2021, 07/0 02/2018, 12/29/2015, Additional history exists CKD PHOS USE SMARTSET 15779 11/06/2023 09/0 09/2022, 04/14/2022, 10/06/2021, Additional history exists DTaP,Tdap,and Td Vaccines (2 - Td or Tdap) 12/31/2029 01/01/2020 (Declined), 12/30/2009, 12/30/2009, Additional history exists Pneumococcal Vaccine: 65+ Years Completed 02/08/2017, 02/23/2006 VITAMIN D LEVEL ONCE IN A LIFETIME-USE SMARTSET# [id number] Completed 11/05/2022, 04/14/2022, 03/08/2022, Additional history exists [...] this encounter Medical Devices Implanted Type Area Towel Inspector Device Identifier Shelf Expiration Date Model / Serial / Lot Pacer Advisa Dr Dorsey - [id number] - [id number] Implanted:Qty: 1 on 04/11/2017 by Elda Patterson DO at OR [facility] Left: Chest [employer] 08/25/2018 [id number] / [id number] / documented as of this encounter Advance Directives Documents on File Type Date Recorded Patient Child Care Group Leader Expl anation POLST 01/05/2021 [place] OR [facility] FOR LIFE-SUSTAINING TREATMENT Latest Code Status on File Code Status Date Activated Date Inactivated Comments Full Code 07/02/2008 9:35 AM 07/03/2008 5:40 PM Care Teams Instructional Aide Relationship Specialty Start Date End Date Cathy Wilburn MD [address] [place] [address] [place] [address] PCP - General Family Medicine 12/03/22 documented as of this encounter
--- OUTSIDE RECORDS SUMMARY | 2023-05-27 20:54 | External Medical Summary | Summary of Care ---
Author Name Unknown Organization [facility] Address [address] [place] [address] Phone [phone] Care Team Providers Care Custody Officer Name Role Phone Cathy Wilburn MD Primary Care Provide r Reason for Visit * Reason Comments Outpatient Testing Encounter Details Date Type Department Care Team Description 12/14/2022 Laboratory Laboratory Sc[facility]ery [facility] [address] [place] [address] [facility] Lab Scenery [address] [place] [id number] History of colon cancer Allergies Active Allergy Reactions Severity Noted Date [...] 40 MG Oral Tablet (Lipitor)Indications :Atherosclerosis of hamilton coronary artery of hamilton heart without angina pectoris,Dyslipidemi a, goal LDL [...] mg before bedtime. As instructed by the [facility]mad[facility]. 8 mL 0 [...] intervertebr al disc 02/04/2009 Coronary atherosclerosis of [place] coron oh artery 02/24/2005 Senile osteoporosis 05/14/2003 [...] CERVICAL DISC DEGEN 12/25/2002 02/08/2017 LOC PRIM [id number] 02/14/2002 06/21/19 08 Other seborrheic keratosis 10/31/200106/05 [...] Care Team Description 12/17/2022 Laboratory Laboratory Processing [facility] Mobile Home Draw [address] [place] [address] 12/20/2022 Anticoagulation Pharmacy [facility] [address] [place] [address] 12/20/2022 Nurse Only Rheumatology [place], Nurse [address] [place] [phone] 03/17/2023 Office Visit Family Medicine Cathy Wilburn MD [address] [place] [address] [place] [address] 03/31/2023 Office Visit Cardiology Poli Zepeda PA-C [address] [place] [address] 04/26/2023 Cardiac Studies Cardiology [facility] [place] [address] [place] [address] 04/27/2023 Office Visit Endocrinology Geraldine Hartley MD [address] [place] [address] 04/27/2023 Office Visit Nephrology Josie Butler MD 200 [facility] [address] 06/08/2023 Laboratory Laboratory [address] [place] [address] 06/15/2023 Office Visit Hematology Oncology Matt Faustin MD [address] [place] [address] 10/12/2023 Office Visit Sleep Disorders Isabel Diallo, [address] [place] [address] Pending Results Name Type Priority Associated Diagnoses Date /Time CBC WITH WBC DIFFERENTIAL Lab Routine History of colon cancer 12/14/2022 3:25 PM EDT COMPREHENSIVE METABOLIC PANEL Lab Routine History of colon cancer 12/14/2022 3:25 PM EDT CEA Lab Routine History of colon cancer 12/14/2022 3:25 PM EDT CBC Lab Routine History of colon cancer 12/14/2022 3:25 PM EDT DIFFERENTIAL, AUTOMATED Lab Routine History of colon cancer 12/14/2022 3:25 PM EDT Health Maintenance Due Date Last Done Comments COVID-19 Vaccine (#1) 1935 Depression Screening 05/30/2021 05/30/2020 DIG LEVEL FOR MEDICATION MONITORING YEARLY 03/08/2023 03/08/2022, 06/12/2021, 05/18/2021, Additional history exists Albumin/Creatinine Ratio 07/20/2023 023, 04/06/2021, 05/30/2020, Additional history exists CKD HGB USE SMARTSET 44184 07/20/202307/19, 07/19/2022, 07/07/2022, Additional history exists DXA Scan 10/22/2023 10/21/2021, 0702/2018, 12/29/2015, Additional history exists CKD PHOS USE SMARTSET 62331 11/06/2023 09/0 09/2022, 04/14/2022, 10/06/2021, Additional history exists DTaP,Tdap,and Td Vaccines (2 - Td or Tdap) 12/31/2029 01/01/2020 (Declined), 12/30/2009, 12/30/2009, Additional history exists Pneumococcal Vaccine: 65+ Years Completed 02/08/2017, 02/23/2006 VITAMIN D LEVEL ONCE IN A LIFETIME-USE SMARTSET# 48892 Completed 11/05/2022, 04/14/2022, 03/08/2022, Additional history exists [...] this encounter Medical Devices Implanted Type Area Dice Spotter Device Identifier Shelf Expiration Date Model / Serial / Lot Pacer Advisa Dr Dorsey - [id number] - [id number] Implanted:Qty: 1 on 04/11/2017 by Elda Patterson DO at OR [facility] Left: Chest [employer] 08/25/2018 A2DR01 / [id number] / documented as of this encounter Visit Diagnoses Diagnosis History of colon cancer Personal history of malignant neoplasm of large intestine documented in this encounter Advance Directives Documents on File Type Date Recorded Patient Physical Education Specialist Expl anation POLST 01/05/2021 [place] OR [facility] FOR LIFE-SUSTAINING TREATMENT Latest Code Status on File Code Status Date Activated Date Inactivated Comments Full Code 07/02/2008 9:35 AM 07/03/2008 5:40 PM Care Teams Custody Officer Relationship Specialty Start Date End Date Cathy Wilburn MD [address] [place] [address] [place] [address] PCP - General Family Medicine 12/03/22 documented as of this encounter
--- OUTSIDE RECORDS SUMMARY | 2023-05-27 20:55 | External Medical Summary | Summary of Care ---
Author Name Unknown Organization [facility] Address [address] [place] [address] Phone [phone] Care Team Providers Care Leach Tank Tender Name Role Phone Cathy Wilburn MD Primary Care Provide r Reason for Visit * Reason Comments Re-Check Encounter Details Date Type Department Care Team Description 12/03/2022 Office Visit Family Medicine [address] [place] [phone] Cathy Wilburn MD [address] [place] [address] [place] [address] Hyperparathyroidism, primary (HCC)*; Paroxysmal atrial fibrillation (HCC); History of colon cancer; Status post right hemicolectomy Allergies Active Allergy Reactions Severity Noted Date [...] as of this encounter (statuses as of 12/03/2022) Medications Medication Sig Dispensed Refills Start Date [...] 40 MG Oral Tablet (Lipitor)Indications :Atherosclerosis of [place] coronary artery of [place] heart without angina pectoris,Dyslipidemi a, goal LDL [...] mg before bedtime. As instructed by the [facility]madin [facility]. 8 mL 0 11/24/2022 Active documented as of this encounter (statuses as of 12/03/2022) Active Problems Problem Noted Date Hypertensive heart [...] intervertebr al disc 02/04/2009 Coronary atherosclerosis of [place] coron oh artery 02/24/2005 Senile osteoporosis 05/14/2003 Carpal tunnel syndrome 04/23/2003 Moderate mitral regurgitation GENERAL OSTEOARTHROSIS Gastroesophageal reflux disease without esophagitis Vitamin D deficiency Hyperparathyroidism, primary documented as of this encounter (statuses as of 12/03/2022) Resolved Problems Problem Noted Date Resolved Date [...] 07/02/2008 10/01/2008 Overview: RLP Parathyroid adenoma resection Fam Smith [...] CERVICAL DISC DEGEN 12/25/2002 02/08/2017 LOC PRIM [id number] 02/14/2002 06/21/19 08 Other seborrheic keratosis 10/31/200106/05 [...] as of this encounter (statuses as of 12/03/2022) Immunizations Name Administration Dates Next Due Pneumococcal Conjugate Vacc, 13 Valent (Prevnar) 02/08/2017 Pneumococcal Polysaccharide PPV23 (Pneumovax) Seasonal Influenza, Split, IIV3, With Preserve, Inj 03/13/2012 TD - Tetanus/Diptheria (ADULT) 12/30/2009 TD, Preservative Free 12/30/2009 documented as of this encounter Social History Tobacco Use Types Packs/Day Years Used Date Smoking Tobacco: Never Smokeless Tobacco: Never Tobacco Cessation:Counseling Given: No Alcohol Use Standard Drinks/Week Comments Not Currently [...] Sign Reading Time Taken Comments Blood Pressure 138/86 12/03/2022 5:04 PM EDT Pulse 86 12/03/2022 5:04 PM EDT Temperature 37.2 C (99 F) 12/03/2022 5:04 PM EDT Respiratory Rate 16 12/03/2022 5:04 PM EDT Oxygen Saturation 95% 12/03/2022 5:04 PM EDT Inhaled Oxygen Concentration - - Weight 83.1 kg (183 lb 3.2 oz) 12/03/2022 5:04 P M EDT Height 170.2 cm (5' 7") 12/03/2022 5:04 PM EDT Body Mass Index 28.69 12/03/2022 5:04 PM EDT documented in this [...] Progress Notes * Cathy Wilburn MD - 12/03/2022 5:05 PM EDT Subjective: HPI: Miranda Coe is a 87 year old female with hx of HLD, MARTI on CPAP, Afib, Tachy- kraig syndrome s/p pacemaker, CAD s/p PCI, HFpEF, HTN, CKD III, GERD, anxiety, colon Cancer s/p hemicolectomy, Hyperparathyroidism, hx of RLE DVT seen for Hx of Colon Ca s/p Hemicolectomy: - sched to undergo colonoscopy Hyperparathyroidism: - following up with endo - repeat PTH was elevated --- pt has not gotten the urine Ca++ yet Afib - on digoxin, Metoprolol ER 100mg BID - denied any recent syncope Patient Active Problem List Diagnosis Code Carpal tunnel syndrome G56.00 Senile osteoporosis M81.0 Coronary atherosclerosis of newhalen coronary artery I25.10 Moderate mitral regurgitation I34.0 [...] mg before bedtime. As instructed by the [facility]. 8 mL 0 No current facility-administered medications for this visit. Past Medical History: Diagnosis Date Acute pulmonary embolism (HCC) 07/17/2021 Allergic rhinitis 10/06/2012 Anxiety state 05/02/2009 Asthma, severity to be determined Atrial premature beats Benign neoplasm of colon 1991 hyperplastic polyp Benign neoplasm of skin Benign paroxysmal vertigo Cardiac pacemaker in situ 04/19/2017 Coronary atherosclerosis of [place] coronary artery 02/01 Degeneration of lumbosacral intervertebral [...] Hypercalcemia 11/04 Hyperparathyroidism, primary (HCC) Hyperparathyroidism, unspecified ([facility]) 07/02/2008 RLP Parathyroid adenoma resection [...] HEART THRU SKIN 02/18/2005 Dr. [place] [facility] [place] 1 VIEW 03/19/2001 PAH--the heart appears [...] - invasive adenocarcinoma, adenomatous polyps, diverticulosis / [facility] COLONOSCOPY, DIAGNOSTIC (RECTUM) N/A 06/24/2022 multiple polyps/few angiodysplastic lesions ascending colon/hemorrhoids/biopsies show adenomatous polyps/recall 6 months/Colonoscopy/SD COLONOSCOPY, SURGERY REFERRAL OP 07/30/2003 Dr. Schultz - normal EGD, FLEXIBLE, DIAGNOSTIC 01/15/2021 normal bx / [facility] EXPLORE PARATHYROID GLANDS 07/02/2008 PARATHYROIDECTOMY performed by FAM SMITH [place] [facility] INFORMATION FACIAL FX INFORMATION L hand tumor INSERT/REPLACE PACEMAKER,ATRIAL/VENTRICULAR Left 04/11/2017 NEW DDD PACEMAKER IMPLANT performed by Elda Patterson DO at OR [facility] INSERTION OF LENS PROSTHESIS 07/05/2012 right eye, dr ortega KNEE ARTHROSCOPY, DIAGNOSTIC 01/28/1994 left knee LAPAROSCOPIC COLECTOMY PARTIAL WITH ANASTOMOSIS 04/27/2021 right hemicolectomy, Dr. Salamanca [facility] CARDIAC THALLIUM STRESS, OUTSIDE FILMS 01/28/1998 negative PARTIAL REMOVAL OF COLON Right 04/27/2021 right hemicolectomy with anastamosis for ascending colon cancer--Dr. Ashok Salamanca PERC STENT/CHEST VERTEBRAL ARTERY, INITIAL 02/18/2005 LAD QUILTING MACHINE HELPER VEIN LIGATION W/ GRAFT, 1 LEG LLE [...] Vaping/E-Cigarette Devices ROS: -Per HPI OBJECTIVE: BP 138/86 | Pulse 86 | Temp 37.2 C (99 F) (Tympanic) | Resp 16 | Ht 1.702 m (5' 7") | Wt 83.1 kg (183 lb 3.2 oz) | SpO2 95% | BMI 28.69 kg/m | BSA 1.98 m PHYSICAL EXAM: Vitals are reviewed General:. NAD, well developed HEENT:. Normal Conjunctiva, EOMI Cardiac: in afib Lungs:. CTA, no wheezing or crackles MSK: mild b/l LE pitting edema Psych:. AAOx3, normal affect ASSESSMENT/PLAN: Hyperparathyroidism, primary (HCC) (Primary) - encouraged the pt to get the urine calcium lab done - PTH is improving Paroxysmal atrial fibrillation (HCC) - HR and BP are normal History of colon cancer Status post right hemicolectomy - pt doing well - having BM daily - sched to get colonoscopy done soon Follow Up: Return in about 3 months (around 03/05/2023). Cathy Wilburn MD Family medicine, [place] [phone] documented in this encounter Nursing Notes * Alethea Gallegos LPN - 12/03/2022 5:04 PM EDT Pt here for check up No new concerns noted documented in this encounter Plan of Treatment Upcoming Encounters Date Type Specialty Care Team Description 12/09/2022 Procedure Only Endoscopy Mauro Calvin MD [address] [place] [address] 12/14/2022 Office Visit Hematology Oncology Ramin, [facility] [address] 12/17/[address] [facility] Home Draw [address] [place] [address] 12/20/2022 [facility] [address] [place] [address] 12/20/2022 Nurse Only Rheumatology [place], Nurse Rheum [address] [place] [address] 03/17/2023 Office Visit Family Medicine Cathy Wilburn MD [address] [place] [address] [place] [phone] 03/31/2023 Office Visit Cardiology Poli Zepeda PA-C [address] [facility] [address] 04/26/2023 [facility]iac [facility] [address] [place] [address] 04/27/2023 Office Visit Endocrinology Geraldine Hartley MD [address] [place] [address] 04/27/2023 Office Visit Nephrology Josie Butler MD [address] [place] [address] 10/12/2023 Office Visit Sleep Disorders Isabel Diallo DO [address] [facility] [place] [id number] Health Maintenance Due Date Last Done Comments COVID-19 Vaccine (#1) 1935 Depression Screening 05/30/2021 05/30/2020 DIG LEVEL FOR MEDICATION MONITORING YEARLY 03/08/2023 03/08/2022, 06/12/2021, 05/18/2021, Additional history exists Albumin/Creatinine Ratio 07/20/2023 023, 04/06/2021, 05/30/2020, Additional history exists CKD HGB USE SMARTSET 08457 07/20/202307/19, 07/19/2022, 07/07/2022, Additional history exists DXA Scan 10/22/2023 10/21/2021, 0702/2018, 12/29/2015, Additional history exists CKD PHOS USE SMARTSET 12826 11/06/202309/2022, 04/14/2022, 10/06/2021, Additional history exists DTaP,Tdap,and Td Vaccines (2 - Td or Tdap) 12/31/2029 01/01/2020 (Declined), 12/30/2009, 12/30/2009, Additional history exists Pneumococcal Vaccine: 65+ Years Completed 02/08/2017, 02/23/2006 VITAMIN D LEVEL ONCE IN A LIFETIME-USE SMARTSET# 84162 Completed 11/05/2022, 04/14/2022, 03/08/2022, Additional history exists [...] this encounter Medical Devices Implanted Type Area Gambling Monitor Device Identifier Shelf Expiration Date Model / Serial / Lot Pacer Advisa Dr Dorsey - [id number] - [id number] Implanted:Qty: 1 on 04/11/2017 by Elda Patterson DO at OR [facility] Left: Chest [employer] 08/25/2018 A2DR01 / [id number] / documented as of this encounter Visit Diagnoses Diagnosis Hyperparathyroidism, primary (HCC)- Primary Primary hyperparathyroidism Paroxysmal atrial fibrillation (HCC) Atrial fibrillation History of colon cancer Personal history of malignant neoplasm of large intestine Status post right hemicolectomy Other postprocedural status documented in this encounter Advance Directives Documents on File Type Date Recorded Patient Licensing Director Expl anation POLST 01/05/2021 [place] OR [facility] FOR LIFE-SUSTAINING TREATMENT Latest Code Status on File Code Status Date Activated Date Inactivated Comments Full Code 07/02/2008 9:35 AM 07/03/2008 5:40 PM Care Teams Leach Tank Tender Relationship Specialty Start Date End Date Cathy Wilburn MD [address] [place] [address] [place] [address] PCP - General Family Medicine 12/03/22 documented as of this encounter
--- OUTSIDE RECORDS SUMMARY | 2023-05-27 20:55 | External Medical Summary | Summary of Care ---
Author Name Unknown Organization [facility] Address [address] [place] [address] Phone [phone] Care Team Providers Care Continuous Vulcanizing Machine Operator Name Role Phone Erlinda Meneses MD Primary Care Prov ider Reason for Visit * Reason Comments Dosage Adjustment Via Phone (anticoag Cl inic) Encounter Details Date Type Department Care Team Description 11/30/2022 Anticoagulation Pharmacy Call Center [phone] [place] [address] [facility] [address] [facility] [place] [address] Paroxysmal atrial fibrillation (HCC)* Allergies Active Allergy Reactions Severity Noted Date [...] as of this encounter (statuses as of 11/30/2022) Medications Medication Sig Dispensed Refills Start Date [...] 40 MG Oral Tablet (Lipitor)Indications :Atherosclerosis of [place] coronary artery of [place] heart without angina pectoris,Dyslipidemi a, goal [...] mg before bedtime. As instructed by the [facility]. 8 mL 0 11/24/2022 Active documented as of this encounter (statuses as of 11/30/2022) Active Problems Problem Noted Date Hypertensive heart [...] intervertebr al disc 02/04/2009 Coronary atherosclerosis of [place] coron oh artery 02/24/2005 Senile osteoporosis 05/14/2003 Carpal tunnel syndrome 04/23/2003 Moderate mitral regurgitation GENERAL OSTEOARTHROSIS Gastroesophageal reflux disease without esophagitis Vitamin D deficiency Hyperparathyroidism, primary documented as of this encounter (statuses as of 11/30/2022) Resolved Problems Problem Noted Date Resolved Date [...] CERVICAL DISC DEGEN 12/25/2002 02/08/2017 LOC PRIM [id number] 02/14/2002 06/21/19 08 Other seborrheic keratosis 10/31/200106/05 [...] as of this encounter (statuses as of 11/30/2022) Immunizations Name Administration Dates Next Due Pneumococcal [...] this encounter Progress Notes * Yulisa Bartholomew RPh - 11/30/2022 9:24 AM EDT Spoke to Miranda to review Lovenox bridging instructions for upcoming procedure. Lovenox dosing schedule faxed to pharmacy previously with prescription. Patient confirmed Lovenox Ready at pharmacy, patient to brass pickler prior to beginning warfarin hold. Used Lovenox previously and confirmed understandingof the following: Your Lovenox dose is 80 mg which will be injected every 12 hours as noted on your dosing schedule. Administration: Lovenox Should be Injected on either side of the abdomen 2 inches from the belly button. Injection site should be rotated with each injection. Wash hands and swab injection area with alcohol. Remove needle cap Pinch and inch of skin and insert the needle at a 90 degree angle into the fold of skin, inject the full contents of the syringe. Remove needle from the skin and press firmly on plunger to activate the safety device. Discard in sharps container. Patient verbalized understanding of above. Patient aware last dose of coumadin prior to the procedure will be 12/03/22 and will bridge with Lovenox as outlined on dosing schedule in letters. Patient aware to contact [facility] with any questions or concerns regarding bridge or should procedure be cancelled or rescheduled. Thanks, Yulisa Bartholomew PharmD Clinical Pharmacist [facility] ([facility]) (Formerly Telepharmacy) [phone] 11/30/2022 9:24 AM documented in this encounter Plan of Treatment Upcoming Encounters Date Type Specialty Care Team Description 12/03/2022 Office Visit Family Medicine Cathy Wilburn MD [address] [place] [address] [place] [address] 12/09/2022 Procedure Only Endoscopy Mauro Calvin MD [address] [place] [address] 12/14/2022 Office Visit Hematology Oncology Matt Faustin MD [address] [place], [place] [phone] 12/17/2022 Laboratory Laboratory Processing [facility], [facility] Mobile Home Draw [address] [place] [address] 12/20/2022 [facility] 58 60 [place] [address] 12/20/2022 Nurse Only Rheumatology [place], Nurse [address] [place] [phone] 03/31/2023 Office Visit Cardiology Poli Zepeda PA-C [address] [place] [address] 04/26/2023 Cardiac Studies Cardiology [facility] [address] [place] [address] 04/27/2023 Office Visit Endocrinology Geraldine Hartley MD [address] [place] [address] 04/27/2023 Office Visit Nephrology Josie Butler MD [address] [place] [address] 10/12/2023 Office Visit Sleep Disorders Isabel Diallo DO [address] [place] [address] Health Maintenance Due Date Last Done Comments COVID-19 Vaccine (#1) 1935 Depression Screening 05/30/2021 05/30/2020 DIG LEVEL FOR MEDICATION MONITORING YEARLY 03/08/2023 03/08/2022, 06/12/2021, 05/18/2021, Additional history exists Albumin/Creatinine Ratio 07/20/2023 023, 04/06/2021, 05/30/2020, Additional history exists CKD HGB USE SMARTSET 22775 07/20/202307/19, 07/19/2022, 07/07/2022, Additional history exists DXA Scan 10/22/2023 10/21/2021, 070 02/2018, 12/29/2015, Additional history exists CKD PHOS USE SMARTSET 35633 11/06/2023 090 09/2022, 04/14/2022, 10/06/2021, Additional history exists DTaP,Tdap,and Td Vaccines (2 - Td or Tdap) 12/31/2029 01/01/2020 (Declined), 12/30/2009, 12/30/2009, Additional history exists Pneumococcal Vaccine: 65+ Years Completed 02/08/2017, 02/23/2006 VITAMIN D LEVEL ONCE IN A LIFETIME-USE SMARTSET# [id number] Completed 11/05/2022, 04/14/2022, 03/08/2022, Additional history exists [...] this encounter Medical Devices Implanted Type Area Business Planning Manager Device Identifier Shelf Expiration Date Model / Serial / Lot Pacer Advisa Dr Dorsey - [id number] - [id number] Implanted:Qty: 1 on 04/11/2017 by Elda Patterson, at OR [facility] Left: Chest [employer] 08/25/2018 [id number] / [id number] / documented as of this encounter Visit Diagnoses Diagnosis Paroxysmal atrial fibrillation (HCC)- Primary Atrial fibrillation documented in this encounter Advance Directives Documents on File Type Date Recorded Patient Shoeshiner Expl anation POLST 01/05/2021 [place] [facility] FOR LIFE-SUSTAINING TREATMENT Latest Code Status on File Code Status Date Activated Date Inactivated Comments Full Code 07/02/2008 9:35 AM 07/03/2008 5:40 PM Care Teams Continuous Vulcanizing Machine Operator Relationship Specialty Start Date End Date Erlinda Meneses MD [address] [place] [address] [place] [phone] PCP - General Family Medicine 11/22/18 documented as of this encounter
--- OUTSIDE RECORDS SUMMARY | 2023-05-27 20:55 | External Medical Summary | Summary of Care ---
Author Name Unknown Organization [facility] Address [address] [place] [address] Phone [phone] Care Team Providers Care Drain Cleaner Plumber Name Role Phone Erlinda Meneses MD Primary Care Prov ider Reason for Visit * Reason Onset Date Comments case management 11/29/2022 Encounter Details Date Type Department Care Team Description 11/29/2022 Mine Car Repairer Telephone [facility] Medicine [address] [phone] Kirsten Diaz, RN [address] [place] [address] case management Allergies Active Allergy [...] as of this encounter (statuses as of 11/29/2022) Medications Medication Sig Dispensed Refills Start Date [...] 40 MG Oral Tablet (Lipitor)Indications :Atherosclerosis of [place] coronary artery of [place] heart without angina pectoris,Dyslipidemi a, goal LDL [...] mg before bedtime. As instructed by the [facility]. 8 mL 0 11/24/2022 Active documented as of this encounter (statuses as of 11/29/2022) Active Problems Problem Noted Date Hypertensive heart [...] intervertebr al disc 02/04/2009 Coronary atherosclerosis of [place] coron oh artery 02/24/2005 Senile osteoporosis 05/14/2003 Carpal tunnel syndrome 04/23/2003 Moderate mitral regurgitation GENERAL OSTEOARTHROSIS Gastroesophageal reflux disease without esophagitis Vitamin D deficiency Hyperparathyroidism, primary documented as of this encounter (statuses as of 11/29/2022) Resolved Problems Problem Noted Date Resolved Date [...] CERVICAL DISC DEGEN 12/25/2002 02/08/2017 LOC PRIM [id number] 02/14/2002 06/21/19 08 Other seborrheic keratosis 10/31/200106/05 [...] as of this encounter (statuses as of 11/29/2022) Immunizations Name Administration Dates Next Due Pneumococcal [...] Telephone Encounter - Kirsten Diaz RN - 11/29/2022 5:33 PM EDT Received voicemail from patient, asking CM to call her back as soon as possible, but nothing emergent. Called and spoke with patient. Alert, oriented, pleasant. Reports no one has called her yet about picking up the scales. She has them all boxed up and ready. Informed her I had gotten an email saying someone was going to call you to schedule a fish bait picker date/time. They are aware you have them boxed up and ready. She will await their call. Also reporting she has Lovenox at her home. She is to take it twice a day, starting 5 days before her colonoscopy. They will call to tell her when to start it. Patient is unsure of how/where to give it - verbalizes some knowledge, but feels uncertain and hesitant. Informed patient, if she needed, I would come and go through that first dose with her, to make sureshe could do it okay. Feels relieved and would be grateful to have me do that. Per Epic, patient is tentatively scheduled for 12/09/22. Which would put her starting on a Tuesday? We will see how it plays out. documented in this encounter Plan of Treatment Upcoming Encounters Date Type Specialty Care Team Description 11/30/2022 [facility] 58 60 [facility] [place] [address] 12/03/2022 Office Visit Family Medicine Cathy Wilburn MD [address] [place] [address] [place] [address] 12/09/2022 Procedure Only Endoscopy Mauro Calvin MD [address] [place] [address] 12/14/2022 Office Visit Hematology Oncology Matt Faustin MD [address] [place] [address] 12/17/2022 Laboratory Laboratory Processing [facility], [facility] Mobile Home Draw [address] [place] [address] 12/20/2022 [facility] [place] [address] [address] [place] [address] 12/20/2022 Nurse Only Rheumatology [place], Nurse [address] [place] [phone] 03/31/2023 Office Visit Cardiology Poli Zepeda PA-C [address] [place] [facility] [address] 04/26/2023 Cardiac Studies [facility] [address] [facility] [place] [address] 04/27/2023 Office Visit Endocrinology Geraldine Hartley MD [address] [place] [address] 04/27/2023 Office Visit Nephrology Josie Butler MD [address] [place] [address] 10/12/2023 Office Visit Sleep Disorders Isabel Diallo DO [address] [place] [address] Health Maintenance Due Date Last Done Comments COVID-19 Vaccine (#1) 1935 Depression Screening 05/30/2021 05/30/2020 DIG LEVEL FOR MEDICATION MONITORING YEARLY 03/08/2023 03/08/2022, 06/12/2021, 05/18/2021, Additional history exists Albumin/Creatinine Ratio 07/20/2023 023, 04/06/2021, 05/30/2020, Additional history exists CKD HGB USE SMARTSET 54047 07/20/202307/19, 07/19/2022, 07/07/2022, Additional history exists DXA Scan 10/22/2023 10/21/2021, 0702/2018, 12/29/2015, Additional history exists CKD PHOS USE SMARTSET 73743 11/06/2023 090 09/2022, 04/14/2022, 10/06/2021, Additional history exists DTaP,Tdap,and Td Vaccines (2 - Td or Tdap) 12/31/2029 01/01/2020 (Declined), 12/30/2009, 12/30/2009, Additional history exists Pneumococcal Vaccine: 65+ Years Completed 02/08/2017, 02/23/2006 VITAMIN D LEVEL ONCE IN A LIFETIME-USE SMARTSET# [id number] Completed 11/05/2022, 04/14/2022, 03/08/2022, Additional history exists [...] this encounter Medical Devices Implanted Type Area Budget Analyst Device Identifier Shelf Expiration Date Model / Serial / Lot Pacer Advisa Dr Dorsey - [id number] - [id number] Implanted:Qty: 1 on 04/11/2017 by Elda Patterson DO at OR [facility] Left: Chest [employer] 08/25/2018 [id number] / [id number] / documented as of this encounter Advance Directives Documents on File Type Date Recorded Patient Fine Grade Bulldozer Operator Expl anation POLST 01/05/2021 [place] OR [facility] FOR LIFE-SUSTAINING TREATMENT Latest Code Status on File Code Status Date Activated Date Inactivated Comments Full Code 07/02/2008 9:35 AM 07/03/2008 5:40 PM Care Teams Drain Cleaner Plumber Relationship Specialty Start Date End Date Erlinda Meneses MD [address] [place] [address] [place] [address] PCP - General Family Medicine 11/22/18 documented as of this encounter
--- OUTSIDE RECORDS SUMMARY | 2023-05-27 20:55 | External Medical Summary | Summary of Care ---
Author Name Unknown Organization [facility] Address [address] [place] [address] Phone [phone] Care Team Providers Care Carbon Sequestration Plant Manager Name Role Phone Cathy Wilburn MD Primary Care Provide r Reason for Visit * Reason Onset Date Comments case management 12/06/2022 Encounter Details Date Type Department Care Team Description 12/06/2022 Seamer Panty Hose Telephone Family Medicine [address] [address] Kirsten Diaz, RN [address] [place] [address] case management Allergies Active Allergy [...] as of this encounter (statuses as of 12/06/2022) Medications Medication Sig Dispensed Refills Start Date [...] 40 MG Oral Tablet (Lipitor)Indications :Atherosclerosis of [place] coronary artery of [place] heart without angina pectoris,Dyslipidemi a, goal [...] mg before bedtime. As instructed by the [facility]. 8 mL 0 11/24/2022 Active documented as of this encounter (statuses as of 12/06/2022) Active Problems Problem Noted Date Hypertensive heart [...] intervertebr al disc 02/04/2009 Coronary atherosclerosis of [place] coron oh artery 02/24/2005 Senile osteoporosis 05/14/2003 Carpal tunnel syndrome 04/23/2003 Moderate mitral regurgitation GENERAL OSTEOARTHROSIS Gastroesophageal reflux disease without esophagitis Vitamin D deficiency Hyperparathyroidism, primary documented as of this encounter (statuses as of 12/06/2022) Resolved Problems Problem Noted Date Resolved Date [...] CERVICAL DISC DEGEN 12/25/2002 02/08/2017 LOC PRIM [id number] 02/14/2002 06/21/19 08 Other seborrheic keratosis 10/31/200106/05 [...] as of this encounter (statuses as of 12/06/2022) Immunizations Name Administration Dates Next Due Pneumococcal [...] Telephone Encounter - Kirsten Diaz RN - 12/06/2022 2:38 PM EDT Received call from patient. Alert, oriented, pleasant. Reports she started giving her Lovenox injections, for her bridge, today. Concerned she gave it on the wrong side - they told her to start on the left and she gave it on theright. Assured her that it didn't make any difference. It was okay. Then asking if she should give the next one on the same side to get back on their schedule, or giveit on the other side? Told her she could do whichever she was more comfortable with, it wasn't going to hurt to give only2 injections in the same side of the umbilicus, they wouldn't be in the exact same spot, and that alternating sides is always the best way. Feels reassured, thought she really messed up. Patient also reporting she needs to do a 24 hour urine test for nephrology, and that when she saw Dr Wilburn last week, he reminded her that she needed to do that. -asks how late the lab is open, as she has to try to find someone that can come out and pick up driver theneeded supplies: the urine container, and a 'hat' to void in. CM offered to drop off the needed supplies on my way home. Patient thankful for the offer. Accepts. CM went to the lab, obtained the needed supplies. Will drop off at patient's home, along with instructions. Will review Lovenox injections instructions also. documented in this encounter Plan of Treatment Upcoming Encounters Date Type Specialty Care Team Description 12/09/2022 Procedure Only Endoscopy Mauro Calvin MD [address] [place] [address] 12/14/2022 Office Visit Hematology Oncology Matt Faustin MD [address] [place] [address] 12/17/2022 Laboratory Laboratory Processing [facility], [facility] Mobile Home Draw [address] [place] [address] 12/20/2022 [facility] [address] [address] [place] [address] 12/20/2022 Nurse Only Rheumatology [place], Nurse [address] [place] [phone] 03/17/2023 Office Visit Family Medicine Cathy Wilburn MD [address] [place] [address] [place] [address] 03/31/2023 Office Visit Cardiology Poli Zepeda PA-C [address] [place] [address] 04/26/2023 Cardiac Studies Cardiology [facility], [facility] [address] [place] [address] 04/27/2023 Office Visit Endocrinology Geraldine Hartley MD [address] [place] [address] 04/27/2023 Office Visit Nephrology Josie Butler MD [address] [place] [address] 10/12/2023 Office Visit Sleep Disorders Isabel Diallo, [address] [place] [address] Health Maintenance Due Date Last Done Comments COVID-19 Vaccine (#1) 1935 Depression Screening 05/30/2021 05/30/2020 DIG LEVEL FOR MEDICATION MONITORING YEARLY 03/08/2023 03/08/2022, 06/12/2021, 05/18/2021, Additional history exists Albumin/Creatinine Ratio 07/20/2023 023, 04/06/2021, 05/30/2020, Additional history exists CKD HGB USE SMARTSET 42172 07/20/202307/19, 07/19/2022, 07/07/2022, Additional history exists DXA Scan 10/22/2023 10/21/2021, 070 02/2018, 12/29/2015, Additional history exists CKD PHOS USE SMARTSET 28436 11/06/2023 090 09/2022, 04/14/2022, 10/06/2021, Additional history exists DTaP,Tdap,and Td Vaccines (2 - Td or Tdap) 12/31/2029 01/01/2020 (Declined), 12/30/2009, 12/30/2009, Additional history exists Pneumococcal Vaccine: 65+ Years Completed 02/08/2017, 02/23/2006 VITAMIN D LEVEL ONCE IN A LIFETIME-USE SMARTSET# 49369 Completed 11/05/2022, 04/14/2022, 03/08/2022, Additional history exists [...] this encounter Medical Devices Implanted Type Area Utility Lineman Device Identifier Shelf Expiration Date Model / Serial / Lot Pacer Advisa Dr Dorsey - [id number] - [id number] Implanted:Qty: 1 on 04/11/2017 by Elda Patterson DO at OR [facility] Left: Chest [employer] 08/25/2018 [id number] / [id number] / documented as of this encounter Advance Directives Documents on File Type Date Recorded Patient Mushroom Packer Expl anation POLST 01/05/2021 [place] OR [facility] FOR LIFE-SUSTAINING TREATMENT Latest Code Status on File Code Status Date Activated Date Inactivated Comments Full Code 07/02/2008 9:35 AM 07/03/2008 5:40 PM Care Teams Carbon Sequestration Plant Manager Relationship Specialty Start Date End Date Cathy Wilburn MD [address] [place] [address] [place] [address] PCP - General Family Medicine 12/03/22 documented as of this encounter
[2023-05-28 06:49] LABS: Hematocrit (blood only) 31.7 % (37.0-47.0); Hemoglobin 9.7 g/dl (12.0-16.0); Mean Corpuscular Hemoglobin 27.2 pg (25.0-34.0); Mean Corpuscular Hgb Conc 30.6 g/dL (32.0-36.0); Mean Platelet Volume 9.7 fL (9.4-12.4); Platelet Count 131 K/uL (130-400); RDW Coefficient of Variation 18.1 % (11.5-14.5); RDW Standard Deviation 59.2 fL (36.4-46.3); Red Blood Count 3.56 M/uL (4.20-5.40); White Blood Count 7.27 K/ul (4.8-10.8)
[2023-05-28 06:59] LABS: INR 2.2 (0.9-1.1); Prothrombin Time 22.8 Seconds (9.0-12.0)
[2023-05-28 07:17] LABS: Albumin Globulin Ratio 1.2 (0.9-2); Albumin Level 3.6 gm/dl (3.4-5.0); Bilirubin,Total 2.1 mg/dl (0.2-1.0); Creatinine Clr Calc Pharmacy 38.8 ml/min; Est GFR (African American) 49.7 ml/min; Est GFR (Non-African American) 42.9 ml/min; Magnesium 1.6 mg/dl (1.7-2.4); Potassium 3.7 mmol/L (3.5-5.1); Total Protein 6.6 gm/dl (6.0-8.3)
[2023-05-28] MEDS: PANTOprazole 40 MG TAB PO SCH (09:00)
[2023-05-28] MEDS: DULoxetine HCL 30 MG CAP PO SCH (09:00)
[2023-05-28] MEDS: CHOLECALCIFEROL 25 MCG (1000 UNITS) TAB PO SCH (09:00)
[2023-05-28] MEDS: amLODIPine BESYLATE 5 MG TAB PO SCH (09:00)
[2023-05-28] MEDS: FUROSEMIDE INJ 20 MG/2 ML VIAL IV SCH (09:00)
[2023-05-28] MEDS: LOSARTAN POTASSIUM 50 MG TAB PO SCH (09:00)
--- NOTE | 2023-05-28 10:51 | Cardiology Progress Note ---
Date of Service May 28, 2023 Assessment & Plan (1) Acute on chronic systolic heart failure: (2) Chronic kidney disease (CKD), stage III (moderate): (3) Permanent atrial fibrillation: (4) Pacemaker: (5) Sleep apnea: Plan: Uses nocturnal oxygen Plan 87-year-old female with known nonischemic cardiomyopathy, moderate to severe mitral tricuspid insufficiency and chronic systolic and diastolic heart failure. Patient presents with worsening symptoms of dyspnea increased heart rate and palpitations over several week. Notes reduction in oral diuretic dosing as an outpatient due to frequent urination Exam consistent with volume overload with elevated jugular venous distention chest x-ray with congestive heart failure. Patient presented hypoxic with improved symptoms with diuresis and oxygen supplementation Heart rate is elevated with recent discontinuation of digoxin 1 month ago due to laboratory level. Recommendations: Resume digoxin 0.25 mg p.o. today then 0.125 mg x 2 days then Tuesday IV diuresis till resolve of heart failure Continue metoprolol succinate 150 mg twice per day 05/28/2023 Acute on chronic mixed systolic and diastolic heart failure improved with IV diuretics, rate control Will add spironolactone 12.5 mg p.o. daily Hold IV furosemide after p.m. dose today Reassess in a.m. Admission and Anticipated Discharge Date Admission Date: May 27, 2023 Subjective Patient seen and examined, chart, medications, telemetry reviewed Feels substantially improved since hospitalization. Good diuresis with resolve of dyspnea and lower extremity edema. No chest pains or discomfort Echocardiogram not significant change from prior Review of Systems Review of Systems: All systems reviewed & are unremarkable except as noted in Subjective Physical Exam Constitutional: well developed; no acute distress Eyes: PERRL, conjunctivae normal, anicteric sclerae ENMT: external ear and nose normal, oropharynx normal Neck: trachea midline, no thyromegaly Respiratory: Auscultation: + rales (Bibasilar) Cardiovascular: Rate/Rhythm: + irregularly irregular Heart Sounds: + murmur Gastrointestinal (Abdomen): normal bowel sounds, soft, nontender, no hepatosplenomegaly Musculoskeletal: no cyanosis or clubbing, extremities motor strength 5/5 Results & Data Vital Signs (Past 12 Hours) Vital Signs Temp Pulse Pulse Resp BP BP Pulse Ox 05/28/23 09:32 05/28/23 07:57 37.2 C 85 19 118/64 95 05/28/23 04:53 83 05/28/23 03:17 36.9 C 88 18 149/81 H 93 05/27/23 23:33 36.6 C 84 18 139/74 95 05/27/23 23:31 37.0 C 80 18 153/76 H 95 O2 Del Method O2 Flow Rate 05/28/23 09:32 Nasal Cannula 2 05/28/23 07:57 Room Air 05/28/23 04:53 05/28/23 03:17 Nasal Cannula 2 05/27/23 23:33 Nasal Cannula 2 05/27/23 23:31 Room Air Laboratory Results Laboratory Results - last 24 hr 05/27/23 05/27/23 05/27/23 11:00 12:06 14:03 WBC 6.90 RBC 3.77 L Hgb 10.3 L Hct 34.0 L MCV 90.2 MCH 27.3 MCHC 30.3 L RDW Std Deviation 60.2 H RDW Coeff of Nicholas 18.2 H Plt Count 149 MPV 9.7 Immature Gran % (Auto) 0.4 Neut % (Auto) 76.0 Lymph % (Auto) 9.9 [place] % (Auto) 11.9 Eos % (Auto) 1.2 Baso % (Auto) 0.6 Neut # (Auto) 5.25 Lymph # (Auto) 0.68 L [place] # (Auto) 0.82 H Eos # (Auto) 0.08 Baso # (Auto) 0.04 Immature Gran # (Auto) 0.03 PT 21.9 H INR 2.1 H Sodium 136 Potassium 4.1 Chloride 105 Carbon Dioxide 25 Anion Gap 6 BUN 23 Creatinine 1.14 Est Cr Clr Drug Dosing 39.6 Est GFR ( Amer) 50.8 Est GFR (Non-Af Amer) 43.8 BUN/Creatinine Ratio 20.2 H Glucose 111 H Calcium 10.4 H Phosphorus 3.3 Magnesium 1.6 L Total Bilirubin 1.7 H AST 15 ALT 11 Alkaline Phosphatase 51 Troponin I High Sens 18.4 H 20.7 H B-Natriuretic Peptide 982 H Total Protein 6.8 Albumin 3.9 Globulin 2.9 Albumin/Globulin Ratio 1.3 Lipase 19 TSH 1.630 Digoxin < 0.3 L Adenovirus (PCR) Not Detected B. pertussis DNA (PCR) Not Detected B.parapertussis DNA PCR Not Detected C. pneumoniae DNA (PCR) Not Detected Coronavirus OC43 (PCR) Not Detected Coronavirus HKU1 (PCR) Not Detected Coronavirus 229E (PCR) Not Detected SARS-CoV-2 (PCR) Not Detected Coronavirus NL63 (PCR) Not Detected Human Metapneumovir PCR Not Detected Influenza Type A (PCR) Not Detected Influenza Type B (PCR) Not Detected M. pneumoniae (PCR) Not Detected Parainfluenza 1 (PCR) Not Detected Parainfluenza 2 (PCR) Not Detected Parainfluenza 3 (PCR) Not Detected Parainfluenza 4 (PCR) Not Detected RSV (PCR) Not Detected Entero/Rhino (PCR) Not Detected 05/27/23 05/28/23 19:48 05:54 WBC 7.27 RBC 3.56 L Hgb 9.7 L Hct 31.7 L MCV 89.0 MCH 27.2 MCHC 30.6 L RDW Std Deviation 59.2 H RDW Coeff of Nicholas 18.1 H Plt Count 131 MPV 9.7 Immature Gran % (Auto) Neut % (Auto) Lymph % (Auto) [place] % (Auto) Eos % (Auto) Baso % (Auto) Neut # (Auto) Lymph # (Auto) [place] # (Auto) Eos # (Auto) Baso # (Auto) Immature Gran # (Auto) PT 22.8 H INR 2.2 H Sodium 136 Potassium 3.7 Chloride 102 Carbon Dioxide 28 Anion Gap 6 BUN 22 Creatinine 1.16 Est Cr Clr Drug Dosing 38.8 Est GFR ( Amer) 49.7 Est GFR (Non-Af Amer) 42.9 BUN/Creatinine Ratio 19.0 Glucose 108 H Calcium 10.0 Phosphorus Magnesium 1.6 L Total Bilirubin 2.1 H AST 12 L ALT 10 Alkaline Phosphatase 47 Troponin I High Sens 21.5 H B-Natriuretic Peptide Total Protein 6.6 Albumin 3.6 Globulin 3.0 Albumin/Globulin Ratio 1.2 Lipase TSH Digoxin Adenovirus (PCR) B. pertussis DNA (PCR) B.parapertussis DNA PCR C. pneumoniae DNA (PCR) Coronavirus OC43 (PCR) Coronavirus HKU1 (PCR) Coronavirus 229E (PCR) SARS-CoV-2 (PCR) Coronavirus NL63 (PCR) Human Metapneumovir PCR Influenza Type A (PCR) Influenza Type B (PCR) M. pneumoniae (PCR) Parainfluenza 1 (PCR) Parainfluenza 2 (PCR) Parainfluenza 3 (PCR) Parainfluenza 4 (PCR) RSV (PCR) Entero/Rhino (PCR) ECG Additional Comments: 28-MAY-2023 06:47:54 [facility] ROUTINE RETRIEVAL Atrial fibrillation ST & T wave abnormality, consider inferior ischemia ST & T wave abnormality, consider anterolateral ischemia Abnormal ECG When compared with ECG of 27-MAY-2023 10:59, No significant change was found
[2023-05-28] MEDS: SPIRONOLACTONE 12.5 MG TAB PO SCH (13:12)
--- NOTE | 2023-05-28 14:17 | Hospitalist Progress Note ---
Date of Service May 28, 2023 Assessment & Plan (1) Acute on chronic combined systolic and diastolic heart failure: Plan: Patient is 87 year old female with PMH HTN, dyslipidemia, CAD s/p PCI LAD in 2004, atrial fibrillation, tachybradycardia syndrome s/p pacemaker, history of DVT, PE, on chronic anticoagulation with warfarin, chronic CHF, CKD III, MARTI and hypoxemia on 2 L oxygen at bedtime, chronic pernicious anemia, depression, anxiety, venous insufficiency, GERD, presented to ER with c/o SOB and increased palpations x 2 weeks. Has been off digoxin since 03/2023 and has only been taking lasix 3 days a week. CXR on admission personally reviewed cardiomegaly with mild interstitial pulmonary edema and a trace right pleural effusion. BNP: 982, Troponin: 18. No leukocytosis. Negative respiratory BioFire panel. INR: 2.1. TSH: 1.6 EKG: atrial fibrillation, rate 103, ST depression Continue on IV diuretics. Spironolactone added. Discussed with cardiology(Dr. Westbrook) Monitor I's and O's, daily weight, low-sodium diet Digoxin restarted; to be given on Tuesday and Tuesday at discharge (2) Hypomagnesemia: Plan: Magnesium: 1.6 Repleted (3) Permanent atrial fibrillation: Plan: Anticoagulated on warfarin Current HR 90's-low 100's Dose home metoprolol now Continue warfarin Digoxin started as per cardiology (4) CAD (coronary artery disease): Plan: s/p PCI LAD in 2004 Work up as above Continue aspirin, atorvastatin, metoprolol, losartan (5) Hypertension: Plan: Continue losartan, metoprolol, amlodipine (6) Dyslipidemia: Plan: Continue atorvastatin (7) Chronic kidney disease (CKD), stage III (moderate): Plan: Cr: 1.1. Baseline ~1.1 Monitor renal functions, avoid nephrotoxic agents when possible (8) History of DVT (deep vein thrombosis): Plan: Anticoagulated on warfarin INR: 2.1 Continue warfarin INR in am (9) Tachy-kraig syndrome: Plan: s/p pacemaker pacemaker interrogation (10) Anemia of chronic disease: Plan: Hgb:10.3. baseline 10-11 Continue vitamin B12 (11) MARTI (obstructive sleep apnea): Plan: Intolerant to cpap. Uses 2L O2 HS (12) Depression: (13) Anxiety: Plan: Continue duloxetine, lorazepam prn DVT Prophylaxis On warfarin, INR therapeutic Full Code as per discussion with pt Follows with Dr Wilburn for routine care Time spent evaluating patient, direct bedside care, chart review, placing orders, interpretation of diagnostic studies, discussion with consultants, patient, and family members, as well as other required patient management activities is 50 minutes Please note the above document was generated using voice recognition software. It may contain grammatical, syntax or spelling errors. Any formal questions or concerns about the content, text or information contained within the body of this dictation should be directly addressed to the provider for clarification Admission and Anticipated Discharge Date Admission Date: May 27, 2023 Subjective Patient seen and examined at bedside. She reports that she is feeling much better compared to yesterday. Reports that her shortness of breath has improved. No significant overnight events Review of Systems Review of Systems: All systems reviewed & are unremarkable except as noted in Subjective Physical Exam Physical Exam: Constitutional: WD/WN, vitals as above, NAD, sitting up in bed, pleasant, conversing easily Respiratory: Bilateral crackles present at bases Cardiovascular: RRR, no murmur, no edema Vessels: no JVD or carotid bruit Chest: normal inspection of chest Abdomen: normal bowel sounds, soft, nontender, no hepatosplenomegaly Musculoskeletal: no cyanosis or clubbing, extremities motor strength 5/5 Skin: no rashes, warm and dry normal turgor Neurologic: PERRL, EOMI, accommodation nl, no face palsy, no dysarthria CN's II- XI intact bilaterally and moves all extremities Psychiatric: A+Ox3, euthymic affect Results & Data Results & Data Vital Signs (Past 12 Hours) Vital Signs Temp Pulse Pulse Resp BP BP Pulse Ox 05/28/23 12:16 36.9 C 95 H 18 126/68 95 05/28/23 09:32 05/28/23 07:57 37.2 C 85 19 118/64 95 05/28/23 04:53 83 05/28/23 03:17 36.9 C 88 18 149/81 H 93 O2 Del Method O2 Flow Rate 05/28/23 12:16 Nasal Cannula 2 05/28/23 09:32 Nasal Cannula 2 05/28/23 07:57 Room Air 05/28/23 04:53 05/28/23 03:17 Nasal Cannula 2 (5) Hypertension Hypertension type: unspecified Qualified Code(s): I10 - Essential (primary) hypertension
[2023-05-28] MEDS: WARFARIN SOD 1 MG TAB PO SCH (16:34)
[2023-05-28] MEDS: DIGOXIN 0.125 MG TAB PO SCH (16:35)
[2023-05-28] MEDS: traMADol HCL 50 MG TABLET PO STA (21:50)
[2023-05-29] MEDS: LORazepam 0.5 MG TAB PO PRN (01:09)
[2023-05-29 06:12] LABS: Hematocrit (blood only) 32.8 % (37.0-47.0); Hemoglobin 9.9 g/dl (12.0-16.0); Mean Corpuscular Hemoglobin 27.7 pg (25.0-34.0); Mean Corpuscular Hgb Conc 30.2 g/dL (32.0-36.0); Mean Corpuscular Volume 91.6 fL (80.0-100.0); Mean Platelet Volume 9.9 fL (9.4-12.4); Platelet Count 123 K/uL (130-400); RDW Coefficient of Variation 17.7 % (11.5-14.5); RDW Standard Deviation 59.7 fL (36.4-46.3); Red Blood Count 3.58 M/uL (4.20-5.40); White Blood Count 7.34 K/ul (4.8-10.8)
[2023-05-29 06:50] LABS: Basophils # (auto) 0.04 K/uL (0.00-0.20); Basophils % (auto) 0.5 %; Eosinophils % (auto) 2.7 %; Immature Granulocytes # (auto) 0.04 K/uL (0.01-0.20); Immature Granulocytes % (auto) 0.5 %; Lymphocytes # (auto) 0.91 K/uL (1.20-3.40); Lymphocytes % (auto) 12.4 %; Monocytes # (auto) 1.16 K/uL (0.11-0.59); Monocytes % (auto) 15.8 %; Neutrophils # (auto) 4.99 K/uL (1.40-6.50); Neutrophils % (auto) 68.1 %; Ovalocytes 1+; Polychromasia 1+
[2023-05-29 07:13] LABS: BUN Creatinine Ratio 21.1 (10-20); Creatinine Clr Calc Pharmacy 35.4 ml/min; Est GFR (African American) 44.1 ml/min; Est GFR (Non-African American) 38.1 ml/min; Potassium 3.8 mmol/L (3.5-5.1)
--- NOTE | 2023-05-29 08:36 | Cardiology Progress Note ---
Date of Service May 29, 2023 Assessment & Plan (1) Acute on chronic systolic heart failure: (2) Chronic kidney disease (CKD), stage III (moderate): (3) Permanent atrial fibrillation: (4) Pacemaker: (5) Sleep apnea: Plan: Uses nocturnal oxygen Plan 87-year-old female with known nonischemic cardiomyopathy, moderate to severe mitral tricuspid insufficiency and chronic systolic and diastolic heart failure. Patient presents with worsening symptoms of dyspnea increased heart rate and palpitations over several week. Notes reduction in oral diuretic dosing as an outpatient due to frequent urination Exam consistent with volume overload with elevated jugular venous distention chest x-ray with congestive heart failure. Patient presented hypoxic with improved symptoms with diuresis and oxygen supplementation Heart rate is elevated with recent discontinuation of digoxin 1 month ago due to laboratory level. Recommendations: Resume digoxin 0.25 mg p.o. today then 0.125 mg x 2 days then Tuesday IV diuresis till resolve of heart failure Continue metoprolol succinate 150 mg twice per day 05/28/2023 Acute on chronic mixed systolic and diastolic heart failure improved with IV diuretics, rate control Will add spironolactone 12.5 mg p.o. daily Hold IV furosemide after p.m. dose today Reassess in a.m. 05/29/2023 Acute on chronic mixed systolic and diastolic heart failure now improved clinically. Low-grade fever this morning but no signs of volume overload Laboratory studies stable Will initiate oral furosemide this morning at 40 mg daily continue spironolactone. Depending on clinical course may need to reduce oral furosemide Admission and Anticipated Discharge Date Admission Date: May 27, 2023 Subjective Patient was seen and examined, chart, medications, telemetry reviewed. Breathing and edema much improved but developed low-grade temperature last night, mild malaise. No dizziness or lightheadedness. Review of Systems Review of Systems: All systems reviewed & are unremarkable except as noted in Subjective Physical Exam Constitutional: well developed; no acute distress Eyes: PERRL, conjunctivae normal, anicteric sclerae ENMT: external ear and nose normal, oropharynx normal Neck: trachea midline, no thyromegaly Respiratory: Auscultation: + rales (Bibasilar) Cardiovascular: Rate/Rhythm: + irregularly irregular Heart Sounds: + murmur Vessels: + JVD Extremities: + edema Gastrointestinal (Abdomen): normal bowel sounds, soft, nontender, no hepatosplenomegaly Musculoskeletal: no cyanosis or clubbing, extremities motor strength 5/5 Results & Data Vital Signs (Past 12 Hours) Vital Signs Temp Pulse Resp BP Pulse Ox O2 Del Method O2 Flow Rate 05/29/23 08:10 36.9 C 88 18 145/67 H 90 Room Air 05/29/23 02:17 36.7 C 80 18 137/72 93 Room Air 05/28/23 22:45 37.8 C H 83 20 146/80 H 95 Nasal Cannula 2 Laboratory Results Laboratory Results - last 24 hr 05/29/23 05:22 WBC 7.34 RBC 3.58 L Hgb 9.9 L Hct 32.8 L MCV 91.6 MCH 27.7 MCHC 30.2 L RDW Std Deviation 59.7 H RDW Coeff of Nicholas 17.7 H Plt Count 123 L MPV 9.9 Immature Gran % (Auto) 0.5 Neut % (Auto) 68.1 Lymph % (Auto) 12.4 [place] % (Auto) 15.8 Eos % (Auto) 2.7 Baso % (Auto) 0.5 Neut # (Auto) 4.99 Lymph # (Auto) 0.91 L [place] # (Auto) 1.16 H Eos # (Auto) 0.20 Baso # (Auto) 0.04 Immature Gran # (Auto) 0.04 Polychromasia 1+ Ovalocytes 1+ Sodium 135 L Potassium 3.8 Chloride 100 Carbon Dioxide 30 Anion Gap 5 BUN 27 H Creatinine 1.28 H Est Cr Clr Drug Dosing 35.4 Est GFR ( Amer) 44.1 Est GFR (Non-Af Amer) 38.1 BUN/Creatinine Ratio 21.1 H Glucose 95 Calcium 10.0
--- NOTE | 2023-05-29 08:54 | XRay Report ---
TWO VIEW CHEST CLINICAL HISTORY: Follow-up congestive failure. FINDINGS: PA and lateral chest radiographs are compared to study dated 05/27/2023. A 2-lead cardiac pa cemaker is unchanged in position. The heart is enlarged noting atherosclerotic calcification of the t horacic aorta. There is mild pulmonary vascular congestion. This is improved from previous there is b ibasilar scarring/atelectasis. No airspace consolidation or pleural effusion is seen. There is no pne umothorax. The skeletal structures are osteopenic. The bony thorax appears intact. A clip projects ov er the left upper quadrant of the abdomen. IMPRESSION: 1. Cardiomegaly and cardiac pacemaker. There is mild pulmonary vascular congestion which has improved from previous. 2. No airspace consolidation or pleural effusion is identified. ACT 112: Negative or not required by law. Electronically signed by: Oumar Nolasco M.D. 05/29/2023 8:53 AM
[2023-05-29] MEDS: FUROSEMIDE 40 MG TAB PO SCH (08:56)
[2023-05-29] MEDS: SODIUM CHLORIDE 0.65% NA SOLN 45 ML (OCEAN) PRN (08:57)
--- NOTE | 2023-05-29 10:32 | Hospitalist Progress Note ---
Date of Service May 29, 2023 Assessment & Plan (1) Acute on chronic combined systolic and diastolic heart failure: Plan: Patient is 87 year old female with PMH HTN, dyslipidemia, CAD s/p PCI LAD in 2004, atrial fibrillation, tachybradycardia syndrome s/p pacemaker, history of DVT, PE, on chronic anticoagulation with warfarin, chronic CHF, CKD III, MARTI and hypoxemia on 2 L oxygen at bedtime, chronic pernicious anemia, depression, anxiety, venous insufficiency, GERD, presented to ER with c/o SOB and increased palpations x 2 weeks. Has been off digoxin since 03/2023 and has only been taking lasix 3 days a week. CXR on admission personally reviewed cardiomegaly with mild interstitial pulmonary edema and a trace right pleural effusion. BNP: 982, Troponin: 18. No leukocytosis. Negative respiratory BioFire panel. INR: 2.1. TSH: 1.6 EKG: atrial fibrillation, rate 103, Diuresed with IV Lasix. Switch over to p.o. Lasix today spironolactone added. Discussed with cardiology(Dr. Wesbtrook) Monitor I's and O's, daily weight, low-sodium diet Digoxin restarted; to be given on Tuesday and Tuesday at discharge (2) Hypomagnesemia: Plan: Magnesium: 1.6 Repleted (3) Permanent atrial fibrillation: Plan: Anticoagulated on warfarin Current HR 90's-low 100's Dose home metoprolol now Continue warfarin Digoxin started as per cardiology (4) CAD (coronary artery disease): Plan: s/p PCI LAD in 2004 Work up as above Continue aspirin, atorvastatin, metoprolol, losartan (5) Hypertension: Plan: Continue losartan, metoprolol, amlodipine (6) Dyslipidemia: Plan: Continue atorvastatin (7) Chronic kidney disease (CKD), stage III (moderate): Plan: Cr: 1.1. Baseline ~1.1 Monitor renal functions, avoid nephrotoxic agents when possible (8) History of DVT (deep vein thrombosis): Plan: Anticoagulated on warfarin INR: 2.1 Continue warfarin (9) Tachy-kraig syndrome: Plan: s/p pacemaker pacemaker interrogation (10) Anemia of chronic disease: Plan: Hgb:10.3. baseline 10-11 Continue vitamin B12 (11) MARTI (obstructive sleep apnea): Plan: Intolerant to cpap. Uses 2L O2 HS (12) Depression: (13) Anxiety: Plan: Continue duloxetine, lorazepam prn DVT Prophylaxis On warfarin, INR therapeutic Full Code as per discussion with pt Follows with Dr Wilburn for routine care Please note the above document was generated using voice recognition software. It may contain grammatical, syntax or spelling errors. Any formal questions or concerns about the content, text or information contained within the body of this dictation should be directly addressed to the provider for clarification Admission and Anticipated Discharge Date Admission Date: May 27, 2023 Subjective Patient seen and examined at bedside. She reports that her breathing has improved significantly. She reports feeling elevated temperature overnight. Reports tiredness/fatigue. Review of Systems Review of Systems: All systems reviewed & are unremarkable except as noted in Subjective Physical Exam Physical Exam: Constitutional: WD/WN, vitals as above, NAD, sitting up in bed, pleasant, conversing easily Respiratory: Bilateral crackles present at bases Cardiovascular: RRR, no murmur, no edema Vessels: no JVD or carotid bruit Chest: normal inspection of chest Abdomen: normal bowel sounds, soft, nontender, no hepatosplenomegaly Musculoskeletal: no cyanosis or clubbing, extremities motor strength 5/5 Skin: no rashes, warm and dry normal turgor Neurologic: PERRL, EOMI, accommodation nl, no face palsy, no dysarthria CN's II- XI intact bilaterally and moves all extremities Psychiatric: A+Ox3, euthymic affect Results & Data Results & Data Vital Signs (Past 12 Hours) Vital Signs Temp Pulse Resp BP Pulse Ox O2 Del Method O2 Flow Rate 05/29/23 08:10 36.9 C 88 18 145/67 H 90 Room Air 05/29/23 02:17 36.7 C 80 18 137/72 93 Room Air 05/28/23 22:45 37.8 C H 83 20 146/80 H 95 Nasal Cannula 2 (5) Hypertension Hypertension type: unspecified Qualified Code(s): I10 - Essential (primary) hypertension
[2023-05-29] MEDS: FLUTICASONE PROPIONATE NA SPR 16 GM BTL SCH (12:17)
[2023-05-29 17:09] LABS: Appearance Urine Clear (Clear); Bacteria Urine Automated Negative (Negative); Bilirubin Urine Negative (Negative); Blood Urine 2+ (Negative); Color Urine Yellow; Glucose Urine UA Negative (Negative); Ketones Urine Negative (Negative); Leukocyte Esterase Urine Negative (Negative); Nitrite Urine Negative (Negative); Protein Urine Trace (Negative); RBC Urine Automated 0-4 /hpf (0-4); Urobilinogen Urine Negative (Negative)
[2023-05-30] MEDS: DIGOXIN 0.25 MG TAB PO SCH (09:09)
[2023-05-30] MEDS: CYANOCOBALAMIN (B-12) 500 MCG TABLET PO SCH (09:09)
[2023-05-30 09:23] LABS: Creatinine Clr Calc Pharmacy 37.9 ml/min; Est GFR (African American) 48.2 ml/min; Est GFR (Non-African American) 41.6 ml/min; Potassium 3.8 mmol/L (3.5-5.1)
[2023-05-30 09:48] LABS: Hematocrit (blood only) 35.6 % (37.0-47.0); Hemoglobin 10.4 g/dl (12.0-16.0); Mean Corpuscular Hemoglobin 26.9 pg (25.0-34.0); Mean Corpuscular Hgb Conc 29.2 g/dL (32.0-36.0); Mean Corpuscular Volume 92.2 fL (80.0-100.0); Platelet Count 117 K/uL (130-400); RDW Coefficient of Variation 17.6 % (11.5-14.5); RDW Standard Deviation 59.7 fL (36.4-46.3); Red Blood Count 3.86 M/uL (4.20-5.40); White Blood Count 6.56 K/ul (4.8-10.8)
[2023-05-30 10:02] LABS: Basophils # (auto) 0.03 K/uL (0.00-0.20); Basophils % (auto) 0.5 %; Eosinophils # (auto) 0.19 K/uL (0.00-0.50); Eosinophils % (auto) 2.9 %; Immature Granulocytes # (auto) 0.05 K/uL (0.01-0.20); Immature Granulocytes % (auto) 0.8 %; Lymphocytes # (auto) 0.78 K/uL (1.20-3.40); Lymphocytes % (auto) 11.9 %; Monocytes # (auto) 0.82 K/uL (0.11-0.59); Monocytes % (auto) 12.5 %; Neutrophils # (auto) 4.69 K/uL (1.40-6.50); Neutrophils % (auto) 71.4 %; Ovalocytes 1+; Polychromasia 1+
[2023-05-30 11:04] LABS: INR 1.9 (0.9-1.1); Prothrombin Time 19.8 Seconds (9.0-12.0)
--- NOTE | 2023-05-30 12:51 | Hospitalist Progress Note ---
Date of Service May 30, 2023 Assessment & Plan (1) Acute on chronic combined systolic and diastolic heart failure: Plan: Patient is 87 year old female with PMH HTN, dyslipidemia, CAD s/p PCI LAD in 2004, atrial fibrillation, tachybradycardia syndrome s/p pacemaker, history of DVT, PE, on chronic anticoagulation with warfarin, chronic CHF, CKD III, MARTI and hypoxemia on 2 L oxygen at bedtime, chronic pernicious anemia, depression, anxiety, venous insufficiency, GERD, presented to ER with c/o SOB and increased palpations x 2 weeks. Has been off digoxin since 03/2023 and has only been taking lasix 3 days a week. CXR on admission personally reviewed cardiomegaly with mild interstitial pulmonary edema and a trace right pleural effusion. BNP: 982, Troponin: 18. No leukocytosis. Negative respiratory BioFire panel. INR: 2.1. TSH: 1.6 EKG: atrial fibrillation, rate 103, Repeat CXR- persistent pulmonary edema On p.o. Lasix today spironolactone added. Will give 1 dose of IV diuretics today. Monitor I's and O's, daily weight, low-sodium diet Digoxin restarted; to be given on 0.125 Tuesday and Tuesday at discharge PT OT ordered (2) Hypomagnesemia: Plan: Magnesium: 1.6 Repleted (3) Permanent atrial fibrillation: Plan: Anticoagulated on warfarin Current HR 90's-low 100's Dose home metoprolol now Continue warfarin Digoxin started as per cardiology (4) CAD (coronary artery disease): Plan: s/p PCI LAD in 2004 Work up as above Continue aspirin, atorvastatin, metoprolol, losartan (5) Hypertension: Plan: Continue losartan, metoprolol, amlodipine (6) Dyslipidemia: Plan: Continue atorvastatin (7) Chronic kidney disease (CKD), stage III (moderate): Plan: Cr: 1.1. Baseline ~1.1 Monitor renal functions, avoid nephrotoxic agents when possible (8) History of DVT (deep vein thrombosis): Plan: Anticoagulated on warfarin INR: 2.1 Continue warfarin (9) Tachy-kraig syndrome: Plan: s/p pacemaker pacemaker interrogation (10) Anemia of chronic disease: Plan: Hgb:10.3. baseline 10-11 Continue vitamin B12 (11) MARTI (obstructive sleep apnea): Plan: Intolerant to cpap. Uses 2L O2 HS (12) Depression: (13) Anxiety: Plan: Continue duloxetine, lorazepam prn DVT Prophylaxis On warfarin, INR therapeutic Full Code as per discussion with pt Follows with Dr Wilburn for routine care Time spent evaluating patient, direct bedside care, chart review, placing orders, interpretation of diagnostic studies, discussion with consultants, patient, and family members, as well as other required patient management activities is 50 minutes Please note the above document was generated using voice recognition software. It may contain grammatical, syntax or spelling errors. Any formal questions or concerns about the content, text or information contained within the body of this dictation should be directly addressed to the provider for clarification Admission and Anticipated Discharge Date Admission Date: May 27, 2023 Subjective Patient seen and examined at bedside. She is lying on the bed comfortably; not in distress. Reports fatigue and tiredness. She is saturating well in 2 L of oxygen. Review of Systems Review of Systems: All systems reviewed & are unremarkable except as noted in Subjective Physical Exam Physical Exam: Constitutional: WD/WN, vitals as above, NAD, sitting up in bed, pleasant, conversing easily Respiratory: Bilateral crackles present at bases Cardiovascular: RRR, no murmur, no edema Vessels: no JVD or carotid bruit Chest: normal inspection of chest Abdomen: normal bowel sounds, soft, nontender, no hepatosplenomegaly Musculoskeletal: no cyanosis or clubbing, extremities motor strength 5/5 Skin: no rashes, warm and dry normal turgor Neurologic: PERRL, EOMI, accommodation nl, no face palsy, no dysarthria CN's II- XI intact bilaterally and moves all extremities Psychiatric: A+Ox3, euthymic affect Results & Data Results & Data Vital Signs (Past 12 Hours) Vital Signs Temp Pulse Pulse Resp BP Pulse Ox O2 Del Method 05/30/23 11:20 37.2 C 87 18 145/78 H 95 Nasal Cannula 05/30/23 09:09 83 05/30/23 07:57 37.5 C 77 18 129/72 91 Room Air 05/30/23 02:26 36.7 C 76 18 134/72 95 Nasal Cannula O2 Flow Rate 05/30/23 11:20 2.0 05/30/23 09:09 05/30/23 07:57 05/30/23 02:26 2.0 (5) Hypertension Hypertension type: unspecified Qualified Code(s): I10 - Essential (primary) hypertension
[2023-05-30] MEDS: FUROSEMIDE 40 MG/4 ML VIAL IV ONE (13:12)
[2023-05-30] MEDS: ONDANSETRON INJ 2 MG/ML 2 ML VIAL IV PRN (17:20)
[2023-05-30] MEDS: POLYETHYLENE (MIRALAX) 17 GM PACK PO PRN (17:36)
--- NOTE | 2023-05-30 18:28 | Cardiology Progress Note ---
Date of Service May 30, 2023 Assessment & Plan (1) Acute on chronic systolic heart failure: (2) Chronic kidney disease (CKD), stage III (moderate): (3) Permanent atrial fibrillation: (4) Pacemaker: (5) Sleep apnea: Plan: Uses nocturnal oxygen Plan 87-year-old female with known nonischemic cardiomyopathy, moderate to severe mitral tricuspid insufficiency and chronic systolic and diastolic heart failure. Patient presents with worsening symptoms of dyspnea increased heart rate and palpitations over several week. Notes reduction in oral diuretic dosing as an outpatient due to frequent urination Acute on chronic mixed systolic and diastolic heart failure now improved clinically. * Continue metoprolol succinate 150 mg twice daily for rate control as well as digoxin which has been reinitiated with dose of 125 mg daily on Mondays, Wednesdays and Fridays only * Continue oral furosemide 40 mg p.o. daily, spironolactone 12.5 mg daily. * Patient due for Coumadin 2 mg today. Admission and Anticipated Discharge Date Admission Date: May 27, 2023 Subjective Patient seen in cardiology follow-up. She states that she has a vague headache. She describes having had a recent fever, however most recent documented temperature dates back to 05/28/2023 with a temperature 37.8 C at that time. Telemetry reveals atrial fibrillation with ventricular rates controlled in the 70s to 80s with occasional PVCs and occasional ventricular paced beats. Physical Exam Constitutional: well developed; no acute distress Eyes: PERRL, conjunctivae normal, anicteric sclerae ENMT: external ear and nose normal, oropharynx normal Neck: trachea midline, no thyromegaly Respiratory: Auscultation: + rales (Bibasilar) Cardiovascular: Rate/Rhythm: + irregularly irregular Heart Sounds: + murmur Vessels: + JVD Extremities: + edema Gastrointestinal (Abdomen): normal bowel sounds, soft, nontender, no he patosplenomegaly Musculoskeletal: no cyanosis or clubbing, extremities motor strength 5/5 Results & Data Vital Signs (Past 12 Hours) Vital Signs Temp Pulse Pulse Resp BP Pulse Ox O2 Del Method 05/30/23 15:30 37.3 C 84 24 143/82 H 96 Nasal Cannula 05/30/23 15:20 83 83 L Room Air 05/30/23 11:20 37.2 C 87 18 145/78 H 95 Nasal Cannula 05/30/23 09:09 83 04/01/24 07:57 37.5 C 77 18 129/72 91 Room Air O2 Flow Rate 05/30/23 15:30 2 05/30/23 15:20 05/30/23 11:20 2.0 05/30/23 09:09 05/30/23 07:57 Laboratory Results Viral respiratory panel performed earlier this hospital stay within normal limits INR today 05/30/2023= 1.9
--- NOTE | 2023-05-31 06:58 | Electrocardiogram Report ---
Test Reason : Blood Pressure : / mmHG Vent. Rate : 085 BPM Atrial Rate : 086 BPM P-R Int : 000 ms QRS Dur : 108 ms QT Int : 390 ms P-R-T Axes : 000 012 230 degrees QTc Int : 464 ms Atrial fibrillation Abnormal ECG When compared with ECG of 27-MAY-2023 10:59, No significant change was found Confirmed by Baltazar Das ([id number] on 05/31/2023 6:58:34 AM Referred By: REFERRED SELF Confirmed By:Baltazar Das
[2023-05-31 08:33] LABS: INR 1.9 (0.9-1.1); Prothrombin Time 19.6 Seconds (9.0-12.0)
[2023-05-31 09:07] LABS: BUN Creatinine Ratio 20.2 (10-20); Calcium 10.1 mg/dl (8.6-10.3); Creatinine Clr Calc Pharmacy 36.2 ml/min; Est GFR (African American) 45.9 ml/min; Est GFR (Non-African American) 39.6 ml/min; Potassium 4.4 mmol/L (3.5-5.1)
--- NOTE | 2023-05-31 13:12 | Hospitalist Progress Note ---
Date of Service May 31, 2023 Assessment & Plan (1) Acute on chronic combined systolic and diastolic heart failure: Plan: Patient is 87 year old female with PMH HTN, dyslipidemia, CAD s/p PCI LAD in 2004, atrial fibrillation, tachybradycardia syndrome s/p pacemaker, history of DVT, PE, on chronic anticoagulation with warfarin, chronic CHF, CKD III, MARTI and hypoxemia on 2 L oxygen at bedtime, chronic pernicious anemia, depression, anxiety, venous insufficiency, GERD, presented to ER with c/o SOB and increased palpations x 2 weeks. Has been off digoxin since 03/2023 and has only been taking lasix 3 days a week. CXR on admission personally reviewed cardiomegaly with mild interstitial pulmonary edema and a trace right pleural effusion. BNP: 982, Troponin: 18. No leukocytosis. Negative respiratory BioFire panel. INR: 2.1. TSH: 1.6 EKG: atrial fibrillation, rate 103, Repeat CXR- persistent pulmonary edema; mildly improved. On p.o. Lasix today spironolactone added. Oxygen weaned off to room air. Monitor I's and O's, daily weight, low-sodium diet Digoxin restarted; to be given on 0.125 Tuesday and Tuesday at discharge PT OT eval pending. (2) Hypomagnesemia: Plan: Magnesium: 1.6 Repleted (3) Permanent atrial fibrillation: Plan: Anticoagulated on warfarin Current HR 90's-low 100's Dose home metoprolol now Continue warfarin Digoxin started as per cardiology (4) CAD (coronary artery disease): Plan: s/p PCI LAD in 2004 Work up as above Continue aspirin, atorvastatin, metoprolol, losartan (5) Hypertension: Plan: Continue losartan, metoprolol, amlodipine (6) Dyslipidemia: Plan: Continue atorvastatin (7) Chronic kidney disease (CKD), stage III (moderate): Plan: Cr: 1.1. Baseline ~1.1 Monitor renal functions, avoid nephrotoxic agents when possible (8) History of DVT (deep vein thrombosis): Plan: Anticoagulated on warfarin INR: 2.1 Continue warfarin (9) Tachy-kraig syndrome: Plan: s/p pacemaker pacemaker interrogation (10) Anemia of chronic disease: Plan: Hgb:10.3. baseline 10-11 Continue vitamin B12 (11) MARTI (obstructive sleep apnea): Plan: Intolerant to cpap. Uses 2L O2 HS (12) Depression: (13) Anxiety: Plan: Continue duloxetine, lorazepam prn DVT Prophylaxis On warfarin, INR therapeutic Full Code as per discussion with pt Follows with Dr Wilburn for routine care Dispositionplan to obtain PT OT evaluation as patient reports weakness compared to baseline. Time spent evaluating patient, direct bedside care, chart review, placing orders, interpretation of diagnostic studies, discussion with consultants, patient, and family members, as well as other required patient management activities is 50 minutes Please note the above document was generated using voice recognition software. It may contain grammatical, syntax or spelling errors. Any formal questions or concerns about the content, text or information contained within the body of this dictation should be directly addressed to the provider for clarification Admission and Anticipated Discharge Date Admission Date: May 27, 2023 Subjective Patient seen and examined at bedside. She is sitting up on the bed; not in distress. She reports that her shortness of breath is better compared to admission. She reports feeling weak. No significant overnight events Review of Systems Review of Systems: All systems reviewed & are unremarkable except as noted in Subjective Physical Exam Physical Exam: Constitutional: WD/WN, vitals as above, NAD, sitting up in bed, pleasant, conversing easily Respiratory: Bilateral crackles present at bases Cardiovascular: RRR, no murmur, no edema Vessels: no JVD or carotid bruit Chest: normal inspection of chest Abdomen: normal bowel sounds, soft, nontender, no hepatosplenomegaly Musculoskeletal: no cyanosis or clubbing, extremities motor strength 5/5 Skin: no rashes, warm and dry normal turgor Neurologic: PERRL, EOMI, accommodation nl, no face palsy, no dysarthria CN's II- XI intact bilaterally and moves all extremities Psychiatric: A+Ox3, euthymic affect Results & Data Results & Data Vital Signs (Past 12 Hours) Vital Signs Temp Pulse Pulse Pulse Resp BP Pulse Ox 05/31/23 11:41 37.0 C 80 18 102/65 90 05/31/23 11:00 37.0 C 80 18 102/65 90 05/31/23 08:42 78 05/31/23 07:40 36.9 C 79 16 128/71 97 05/31/23 02:40 37 C 79 18 138/69 94 O2 Del Method O2 Flow Rate 05/31/23 11:41 Room Air 05/31/23 11:00 Room Air 05/31/23 08:42 05/31/23 07:40 Nasal Cannula 2 05/31/23 02:40 Nasal Cannula (5) Hypertension Hypertension type: unspecified Qualified Code(s): I10 - Essential (primary) hypertension
--- NOTE | 2023-05-31 17:37 | Cardiology Progress Note ---
Date of Service May 31, 2023 Assessment & Plan (1) Acute on chronic systolic heart failure: (2) Chronic kidney disease (CKD), stage III (moderate): (3) Permanent atrial fibrillation: (4) Pacemaker: (5) Sleep apnea: Plan: Uses nocturnal oxygen Plan 87-year-old female with known nonischemic cardiomyopathy, moderate to severe mitral tricuspid insufficiency and chronic systolic and diastolic heart failure. Patient presents with worsening symptoms of dyspnea increased heart rate and palpitations over several week. Notes reduction in oral diuretic dosing as an outpatient due to frequent urination Acute on chronic mixed systolic and diastolic heart failure now improved clinically. * Continue metoprolol succinate 150 mg twice daily for rate control as well as digoxin which has been reinitiated with dose of 125 mg daily on Mondays, Wednesdays and Fridays only * Continue oral furosemide 40 mg p.o. daily, spironolactone 12.5 mg daily. * INR 1.9 today. Continue Coumadin. Repeat INR tomorrow. Admission and Anticipated Discharge Date Admission Date: May 27, 2023 Subjective Patient is seen in cardiology follow-up. Notes her headache and subjective fever have resolved. She worked with physical therapy today. Telemetry reveals rate controlled atrial fibrillation with rates in the 70s to 80s and occasional PVCs and occasional ventricular paced beats. Physical Exam Constitutional: well developed; no acute distress Eyes: PERRL, conjunctivae normal, anicteric sclerae ENMT: external ear and nose normal, oropharynx normal Neck: trachea midline, no thyromegaly Respiratory: Auscultation: + rales (Bibasilar) Cardiovascular: Rate/Rhythm: + irregularly irregular Heart Sounds: + murmur Extremities: no edema Gastrointestinal (Abdomen): normal bowel sounds, soft, nontender, no hepatosplenomegaly Musculoskeletal: no cyanosis or clubbing, extremities motor strength 5/5 Results & Data Vital Signs (Past 12 Hours) Vital Signs Temp Pulse Pulse Pulse Resp BP BP 05/31/23 15:17 36.7 C 77 16 112/66 05/31/23 14:34 77 05/31/23 11:41 37.0 C 80 18 102/65 05/31/23 11:00 37.0 C 80 18 102/65 05/31/23 08:42 78 05/31/23 07:40 36.9 C 79 16 128/71 Pulse Ox O2 Del Method O2 Flow Rate 05/31/23 15:17 92 Nasal Cannula 2 05/31/23 14:34 05/31/23 11:41 90 Room Air 05/31/23 11:00 90 Room Air 05/31/23 08:42 05/31/23 07:40 97 Nasal Cannula 2 Laboratory Results Coagulation 05/31/23 Range/Units 07:21 PT 19.6 H (9.0-12.0) Seconds Comprehensive Metabolic Panel 05/31/23 Range/Units 07:21 Sodium 132 L (136-145) mmol/L Potassium 4.4 (3.5-5.1) mmol/L Chloride 95 L (98-107) mmol/L Carbon Dioxide 30 (21-32) mmol/L BUN 25 H (6-23) mg/dl Creatinine 1.24 H (0.6-1.2) mg/dl Glucose 96 (70-99(Fasting)) mg/dl Calcium 10.1 (8.6-10.3) mg/dl Intake and Output 05/31/23 05/31/23 05/31/23 06:59 14:59 22:59 Intake Total 270 / 710 200 / 200 Output Total 1050 / 1750 50 / 50 Balance -780 / -1040 -50 / 150 200 / 150 Intake: Oral 270 / 710 200 / 200 Output: Urine 50 / 50 Urine Amount (Catheter) 1050 / 1750 External 1050 / 1750 Other: Weight 80.6 kg Weight Measurement Method Standing Scale
[2023-06-01 07:49] LABS: INR 1.9 (0.9-1.1)
[2023-06-01 08:52] LABS: BUN Creatinine Ratio 24.1 (10-20); Calcium 10.3 mg/dl (8.6-10.3); Est GFR (Non-African American) 32.8 ml/min; Potassium 4.6 mmol/L (3.5-5.1)
[2023-06-01] MEDS: DIGOXIN 0.125 MG TAB PO SCH (09:10)
[2023-06-01 09:17] LABS: Hematocrit (blood only) 34.3 % (37.0-47.0); Hemoglobin 10.3 g/dl (12.0-16.0); Mean Corpuscular Hemoglobin 26.9 pg (25.0-34.0); Mean Corpuscular Volume 89.6 fL (80.0-100.0); Mean Platelet Volume 10.2 fL (9.4-12.4); Platelet Count 106 K/uL (130-400); RDW Coefficient of Variation 17.3 % (11.5-14.5); RDW Standard Deviation 56.8 fL (36.4-46.3); Red Blood Count 3.83 M/uL (4.20-5.40); White Blood Count 7.31 K/ul (4.8-10.8)
[2023-06-01 09:26] LABS: Basophils # (auto) 0.05 K/uL (0.00-0.20); Basophils % (auto) 0.7 %; Eosinophils # (auto) 0.18 K/uL (0.00-0.50); Eosinophils % (auto) 2.5 %; Immature Granulocytes # (auto) 0.04 K/uL (0.01-0.20); Immature Granulocytes % (auto) 0.5 %; Lymphocytes % (auto) 13.7 %; Monocytes # (auto) 0.98 K/uL (0.11-0.59); Monocytes % (auto) 13.4 %; Neutrophils # (auto) 5.06 K/uL (1.40-6.50); Neutrophils % (auto) 69.2 %
--- NOTE | 2023-06-01 16:06 | Hospitalist Progress Note ---
Date of Service June 01, 2023 Assessment & Plan (1) Acute on chronic combined systolic and diastolic heart failure: Plan 87 yo female with PMH of HTN, dyslipidemia, CAD s/p PCI LAD in 2004, atrial fibrillation, tachybradycardia syndrome s/p pacemaker, history of DVT, PE, on chronic anticoagulation with warfarin, chronic CHF, CKD III, MARTI and hypoxemia on 2 L oxygen at bedtime, chronic pernicious anemia, depression, anxiety, venous insufficiency, GERD, presented to ER with c/o SOB and increased palpations x 2 weeks. Has been off digoxin since 03/2023 and has only been taking lasix 3 days a week. She is being managed for the following: Acute on chronic combined systolic and diastolic heart failure: CXR on admission personally reviewed cardiomegaly with mild interstitial pulmonary edema and a trace right pleural effusion. BNP: 982, Troponin: 18. No leukocytosis. Negative respiratory BioFire panel. TSH: 1.6 EKG: atrial fibrillation, rate 103, Repeat CXR- persistent pulmonary edema; mildly improved. On p.o. Lasix daily, spironolactone added this admission. Wean down oxygen as tolerated. Monitor labs in AM. Monitor I's and O's, daily weight, low-sodium diet Digoxin restarted; to be given on 0.125 Tuesday and Tuesday at discharge PT OT. LIkely will need rehab. Hypomagnesemia: 1.6 at admission, repleted. Monitor and replete. Other chronic medical conditions: Continue with/resume home meds as and when able. Permanent atrial fibrillation: Anticoagulated with warfarin, INR 1.9, PT/INR in AM. Continue home dose of warfarin. CAD: Status post PCI LAD in 2004. Continue home aspirin, atorvastatin, metoprolol, losartan. Hypertension: Continue home losartan, metoprolol, amlodipine. Dyslipidemia: Continue home statin. Chronic kidney disease stage III: Creatinine at baseline is 1.1, mildly elevated due to diuresis/Aldactone, monitor. History of DVT: Anticoagulated on warfarin, continue. Tachycardia-bradycardia syndrome: Status post pacemaker. Anemia of chronic disease: Hemoglobin at baseline, continue with home vitamin B12. MARTI: Intolerant to CPAP. Uses 2 L O2 at bedtime. Depression and anxiety: Continue duloxetine, lorazepam as needed DVT prophylaxis: Patient on warfarin. Full code Dispo: PT/OT, likely will need rehab. Please note the above document was generated using voice recognition software. It may contain grammatical, syntax or spelling errors. Any formal questions or concerns about the content, text or information contained within the body of this dictation should be directly addressed to the provider for clarification Admission and Anticipated Discharge Date Admission Date: May 27, 2023 Subjective Patient was seen and examined at bedside. Patient was sitting up in chair, on 2 L oxygen via nasal cannula, NAD, resting comfortably. Patient denies any headache or chest pain or increased shortness of breath. Patient reports poor appetite at baseline, reports moving bowels yesterday but reports being constipated. Will continue with bowel regimen. Patient denies other ROS. Physical Exam Physical Exam: Constitutional: WD/WN, vitals as above, NAD, sitting up in chair, pleasant, conversing easily Respiratory: Bilateral crackles present at bases Cardiovascular: RRR, no murmur, no edema Vessels: no JVD or carotid bruit Chest: normal inspection of chest Abdomen: normal bowel sounds, soft, nontender, no hepatosplenomegaly Musculoskeletal: no cyanosis or clubbing, extremities motor strength 5/5 Skin: no rashes, warm and dry normal turgor Neurologic: PERRL, EOMI, accommodation nl, no face palsy, no dysarthria CN's II- XI intact bilaterally and moves all extremities Psychiatric: A+Ox3, euthymic affect Results & Data Results & Data Vital Signs (Past 12 Hours) Vital Signs Temp Pulse Pulse Resp BP Pulse Ox O2 Del Method 06/01/23 15:32 36.7 C 69 18 106/49 L 98 Nasal Cannula 06/01/23 11:30 37.1 C 70 18 95/58 L 98 Room Air 06/01/23 09:10 74 06/01/23 07:41 36.7 C 74 18 116/66 98 Nasal Cannula O2 Flow Rate 06/01/23 15:32 2.0 06/01/23 11:30 06/01/23 09:10 06/01/23 07:41 4.0
--- NOTE | 2023-06-01 16:46 | Cardiology Progress Note ---
Date of Service June 01, 2023 Assessment & Plan (1) Acute on chronic systolic heart failure: (2) Chronic kidney disease (CKD), stage III (moderate): (3) Permanent atrial fibrillation: (4) Pacemaker: (5) Sleep apnea: Plan: Uses nocturnal oxygen Plan 87-year-old female with known nonischemic cardiomyopathy, moderate to severe mitral tricuspid insufficiency and chronic systolic and diastolic heart failure. Patient presents with worsening symptoms of dyspnea increased heart rate and palpitations over several week. Notes reduction in oral diuretic dosing as an outpatient due to frequent urination Acute on chronic mixed systolic and diastolic heart failure now improved clinically. * Continue metoprolol succinate 150 mg twice daily for rate control as well as digoxin which has been reinitiated with dose of 125 mg daily on Mondays, Wednesdays and Fridays only * Continue oral furosemide 40 mg p.o. daily, spironolactone 12.5 mg daily. * INR 1.9 today. Continue Coumadin. Repeat INR tomorrow. * Increase activity as tolerated Admission and Anticipated Discharge Date Admission Date: May 27, 2023 Subjective Patient seen in cardiology follow-up. Sitting in the bedside chair. Telemetry reveals rate controlled atrial fibrillation. Noted ongoing oxygen requirement, 2 L/min nasal cannula. Physical Exam Constitutional: well developed; no acute distress Eyes: PERRL, conjunctivae normal, anicteric sclerae ENMT: external ear and nose normal, oropharynx normal Neck: trachea midline, no thyromegaly Respiratory: Auscultation: + crackles Cardiovascular: Rate/Rhythm: + irregularly irregular Heart Sounds: + murmur Extremities: no edema Gastrointestinal (Abdomen): normal bowel sounds, soft, nontender, no he patosplenomegaly Musculoskeletal: no cyanosis or clubbing, extremities motor strength 5/5 Results & Data Vital Signs (Past 12 Hours) Vital Signs Temp Pulse Pulse Resp BP Pulse Ox O2 Del Method 06/01/23 15:32 36.7 C 69 18 106/49 L 98 Nasal Cannula 06/01/23 11:30 37.1 C 70 18 95/58 L 98 Room Air 06/01/23 09:10 74 06/01/23 07:41 36.7 C 74 18 116/66 98 Nasal Cannula O2 Flow Rate 06/01/23 15:32 2.0 06/01/23 11:30 06/01/23 09:10 06/01/23 07:41 4.0
[2023-06-01] MEDS: COUGH DROP (SUGAR FREE) LOZ 24 LOZ/1 BOX BUCCAL PRN (20:25)
[2023-06-02 08:15] LABS: Calcium 10.4 mg/dl (8.6-10.3); Creatinine Clr Calc Pharmacy 25.5 ml/min; Est GFR (African American) 29.8 ml/min; Est GFR (Non-African American) 25.7 ml/min; Magnesium 1.8 mg/dl (1.7-2.4); Phosphorus 4.1 mg/dl (2.5-4.9); Potassium 4.8 mmol/L (3.5-5.1)
[2023-06-02 08:24] LABS: INR 1.8 (0.9-1.1); Prothrombin Time 18.9 Seconds (9.0-12.0)
--- NOTE | 2023-06-02 10:36 | Cardiology Progress Note ---
Date of Service June 02, 2023 Assessment & Plan (1) Acute on chronic systolic heart failure: (2) Chronic kidney disease (CKD), stage III (moderate): (3) Permanent atrial fibrillation: (4) Pacemaker: (5) Sleep apnea: Plan: Uses nocturnal oxygen Plan 87-year-old female with known nonischemic cardiomyopathy, moderate to severe mitral tricuspid insufficiency and chronic systolic and diastolic heart failure. Patient presents with worsening symptoms of dyspnea increased heart rate and palpitations over several week. Notes reduction in oral diuretic dosing as an outpatient due to frequent urination Temperature mildly elevated 06/02/23, at 9:49 , 37.6. -UA, culture, blood cultures ordered for completeness Knees without redness or effusion. Pacemaker site without erythema Acute on chronic mixed systolic and diastolic heart failure now improved clinically. * Continue metoprolol succinate 150 mg twice daily for rate control as well as digoxin which has been reinitiated with dose of 125 mg daily on Mondays, Wednesdays and Fridays only * Hold furosemide 40 mg daily for creatinine which has increased to 1.77 mg/dl. Hold spironolactone * OK to continue digoxin for now, as pacemaker is in place for HR support. * INR 1.8 today. Coumadin 1 mg now, then 2.5 mg daily at 1600. Repeat INR tomorrow. * Increase activity as tolerated Case discussed with Dr Kelly for the purpose of coordination of care. Updates provided to daughter, Elda , by phone. Admission and Anticipated Discharge Date Admission Date: May 27, 2023 Subjective Pt seen in follow up. Telemetry reveals rate controlled atrial fibrillation. Denies subjective fever. Notes generalized knee pain and some neck pain. Denies resting shortness of breath. Physical Exam Constitutional: well developed; no acute distress Eyes: PERRL, conjunctivae normal, anicteric sclerae ENMT: external ear and nose normal, oropharynx normal Neck: trachea midline, no thyromegaly Respiratory: Auscultation: + crackles and + rales (Bibasilar) Cardiovascular: Rate/Rhythm: + irregularly irregular Heart Sounds: + murmur Vessels: + JVD Extremities: no edema Gastrointestinal (Abdomen): normal bowel sounds, soft, nontender, no hepatosplenomegaly Musculoskeletal: no cyanosis or clubbing, extremities motor strength 5/5 Results & Data Vital Signs (Past 12 Hours) Vital Signs Temp Pulse Resp BP Pulse Ox O2 Del Method O2 Flow Rate 06/02/23 09:49 Nasal Cannula 2 06/02/23 09:07 79 121/72 06/02/23 07:48 37.6 C H 91 H 20 145/70 H 96 Nasal Cannula 2 06/02/23 02:42 37.0 C 81 18 129/69 95 Nasal Cannula 2 06/01/23 23:49 Nasal Cannula 2 06/01/23 22:47 36.9 C 74 18 119/68 95 Nasal Cannula 2
[2023-06-02] MEDS: WARFARIN SOD 4 MG TAB PO ONE (10:56)
[2023-06-02] MEDS: WARFARIN SOD 1 MG TAB PO STA (11:02)
[2023-06-02] MEDS: WARFARIN SOD 2.5 MG TAB PO SCH (16:51)
--- NOTE | 2023-06-02 17:14 | Hospitalist Progress Note ---
Date of Service June 02, 2023 Assessment & Plan (1) Acute on chronic combined systolic and diastolic heart failure: Plan 87 yo female with PMH of HTN, dyslipidemia, CAD s/p PCI LAD in 2004, atrial fibrillation, tachybradycardia syndrome s/p pacemaker, history of DVT, PE, on chronic anticoagulation with warfarin, chronic CHF, CKD III, MARTI and hypoxemia on 2 L oxygen at bedtime, chronic pernicious anemia, depression, anxiety, venous insufficiency, GERD, presented to ER with c/o SOB and increased palpations x 2 weeks. Has been off digoxin since 03/2023 and has only been taking lasix 3 days a week. She is being managed for the following: Acute on chronic combined systolic and diastolic heart failure: CXR on admission personally reviewed cardiomegaly with mild interstitial pulmonary edema and a trace right pleural effusion. BNP: 982, Troponin: 18. No leukocytosis. Negative respiratory BioFire panel. TSH: 1.6 EKG: atrial fibrillation, rate 103, Repeat CXR- persistent pulmonary edema; mildly improved. On p.o. Lasix daily, spironolactone added this admission. Wean down oxygen as tolerated. Monitor labs in AM. Monitor I's and O's, daily weight, low-sodium diet Digoxin restarted; to be given on 0.125 Tuesday and Tuesday at discharge PT OT. LIkely will need rehab. Cardio managing diuresis, lasix and aldactone on hold due to elevated creatinine, labs in AM. Hypomagnesemia: 1.6 at admission, repleted. Monitor and replete. Other chronic medical conditions: Continue with/resume home meds as and when able. Permanent atrial fibrillation: Anticoagulated with warfarin, INR 1.8, PT/INR in AM. increased warfarin dose to 2.5 mg daily, continue to titrate. CAD: Status post PCI LAD in 2004. Continue home aspirin, atorvastatin, metoprolol, losartan. Hypertension: Continue home losartan, metoprolol, amlodipine. Dyslipidemia: Continue home statin. Chronic kidney disease stage III: Creatinine at baseline is 1.1, mildly elevated due to diuresis/Aldactone, monitor. History of DVT: Anticoagulated on warfarin, continue. Tachycardia-bradycardia syndrome: Status post pacemaker. Anemia of chronic disease: Hemoglobin at baseline, continue with home vitamin B12. MARTI: Intolerant to CPAP. Uses 2 L O2 at bedtime. Depression and anxiety: Continue duloxetine, lorazepam as needed DVT prophylaxis: Patient on warfarin. Full code Dispo: PT/OT, likely will need rehab. Please note the above document was generated using voice recognition software. It may contain grammatical, syntax or spelling errors. Any formal questions or concerns about the content, text or information contained within the body of this dictation should be directly addressed to the provider for clarification Admission and Anticipated Discharge Date Admission Date: May 27, 2023 Subjective Patient was seen and examined at bedside. Patient was sitting up in bed, on 2 L oxygen via nasal cannula, NAD, resting comfortably. Pt's dtr given update via phone at bedside, answered all her questions. Patient denies any headache or chest pain or increased shortness of breath. Pt reports generalized body aches, and knee pain, will order volaren gel to knees Patient reports poor appetite at baseline. Patient denies other ROS. Physical Exam Physical Exam: Constitutional: WD/WN, vitals as above, NAD, sitting up in chair, pleasant, conversing easily Respiratory: Bilateral crackles present at bases Cardiovascular: RRR, no murmur, no edema Vessels: no JVD or carotid bruit Chest: normal inspection of chest Abdomen: normal bowel sounds, soft, nontender, no hepatosplenomegaly Musculoskeletal: no cyanosis or clubbing, extremities motor strength 5/5 Skin: no rashes, warm and dry normal turgor Neurologic: PERRL, EOMI, accommodation nl, no face palsy, no dysarthria CN's II- XI intact bilaterally and moves all extremities Psychiatric: A+Ox3, euthymic affect Results & Data Results & Data Vital Signs (Past 12 Hours) Vital Signs Temp Pulse Pulse Resp BP Pulse Ox O2 Del Method 06/02/23 16:07 36.3 C L 76 76 16 110/67 96 Nasal Cannula 06/02/23 11:44 36.8 C 72 20 97/58 L 95 Nasal Cannula 06/02/23 11:20 06/02/23 09:49 Nasal Cannula 06/02/23 09:07 79 121/72 06/02/23 07:48 37.6 C H 91 H 20 145/70 H 96 Nasal Cannula O2 Flow Rate 06/02/23 16:07 2 06/02/23 11:44 2 06/02/23 11:20 2 06/02/23 09:49 2 06/02/23 09:07 06/02/23 07:48 2
[2023-06-02] MEDS: DICLOFENAC SOD 1% GEL 100 GM TUBE EXT SCH (17:47)
[2023-06-02 23:10] LABS: Appearance Urine Clear (Clear); Bacteria Urine Automated Negative (Negative); Bilirubin Urine Negative (Negative); Blood Urine Negative (Negative); Color Urine Dark Yellow; Glucose Urine UA Negative (Negative); Ketones Urine Negative (Negative); Leukocyte Esterase Urine Negative (Negative); Nitrite Urine Negative (Negative); Protein Urine 1+ (Negative); RBC Urine Automated 0-4 /hpf (0-4); Specific Gravity Urine 1.017 (1.000-1.030); Urobilinogen Urine Negative (Negative)
[2023-06-02 23:24] LABS: Epithelial Cell Urine Auto 0-5 /lpf (0-5)
[2023-06-03] MEDS: ALBUMIN 25% 25 GM/100 ML VIAL IV ONE (02:16)
[2023-06-03 03:33] LABS: Influenza A virus by PCR Negative (Neg); Influenza B virus by PCR Negative (Neg); RSV by PCR Negative (Neg); SARS CoV2 RNA(COVID-19) Ceph NEGATIVE (Negative)
[2023-06-03 05:03] LABS: BUN Creatinine Ratio 27.6 (10-20); Calcium 10.5 mg/dl (8.6-10.3); Creatinine Clr Calc Pharmacy 22.2 ml/min; Est GFR (African American) 25.3 ml/min; Est GFR (Non-African American) 21.8 ml/min; Magnesium 1.8 mg/dl (1.7-2.4); Phosphorus 4.4 mg/dl (2.5-4.9); Potassium 4.8 mmol/L (3.5-5.1)
[2023-06-03 05:25] LABS: INR 1.9 (0.9-1.1); Prothrombin Time 20.3 Seconds (9.0-12.0)
[2023-06-03 07:13] LABS: Hematocrit (blood only) 30.4 % (37.0-47.0); Hemoglobin 9.3 g/dl (12.0-16.0); Mean Corpuscular Hemoglobin 27.3 pg (25.0-34.0); Mean Corpuscular Hgb Conc 30.6 g/dL (32.0-36.0); Mean Corpuscular Volume 89.1 fL (80.0-100.0); Mean Platelet Volume 11.2 fL (9.4-12.4); Platelet Count 109 K/uL (130-400); RDW Coefficient of Variation 17.2 % (11.5-14.5); RDW Standard Deviation 55.5 fL (36.4-46.3); Red Blood Count 3.41 M/uL (4.20-5.40); White Blood Count 7.58 K/ul (4.8-10.8)
--- NOTE | 2023-06-03 07:38 | XRay Report ---
XR chest 1V portable CLINICAL HISTORY: Cough. COMPARISON STUDY: Chest radiograph May 29, 2023. FINDINGS: Left subclavian pacer is in place. There is no pneumothorax or pleural effusion. Linear lef t basilar opacities favor atelectasis. There is mild pulmonary edema. IMPRESSION: Cardiomegaly with mild interstitial pulmonary edema. ACT 112: Negative or not required by law. Electronically signed by: Ramon Don M.D. 06/03/2023 7:37 AM
--- NOTE | 2023-06-03 15:22 | Hospitalist Progress Note ---
Date of Service June 03, 2023 Assessment & Plan (1) Acute on chronic combined systolic and diastolic heart failure: Plan 87 yo female with PMH of HTN, dyslipidemia, CAD s/p PCI LAD in 2004, atrial fibrillation, tachybradycardia syndrome s/p pacemaker, history of DVT, PE, on chronic anticoagulation with warfarin, chronic CHF, CKD III, MARTI and hypoxemia on 2 L oxygen at bedtime, chronic pernicious anemia, depression, anxiety, venous insufficiency, GERD, presented to ER with c/o SOB and increased palpations x 2 weeks. Has been off digoxin since 03/2023 and has only been taking lasix 3 days a week. She is being managed for the following: Acute on chronic combined systolic and diastolic heart failure: CXR on admission personally reviewed cardiomegaly with mild interstitial pulmonary edema and a trace right pleural effusion. BNP: 982, Troponin: 18. No leukocytosis. Negative respiratory BioFire panel. TSH: 1.6 EKG: atrial fibrillation, rate 103, Repeat CXR- persistent pulmonary edema; mildly improved. On p.o. Lasix daily, spironolactone added this admission. Wean down oxygen as tolerated. Monitor labs in AM. Monitor I's and O's, daily weight, low-sodium diet Digoxin restarted; to be given on 0.125 Tuesday and Tuesday at discharge PT OT. LIkely will need rehab. Cardio managing diuresis, lasix and aldactone on hold due to elevated creatinine, labs in AM. Lisinopril on hold. Fever: Had temp of 38C today (further temps are normal), WBC wnl. UA and CXR neg for infection. Blood and urine Cx pending. Pt w/ no cough or pain/burn w/ passing urine or headache or diarrhea. continue to monitor off antibiotic. No abd pain on exam. Hypomagnesemia: 1.6 at admission, repleted. Monitor and replete. Other chronic medical conditions: Continue with/resume home meds as and when able. Permanent atrial fibrillation: Anticoagulated with warfarin, INR 1.9, PT/INR in AM. increased warfarin dose to 3 mg daily, continue to titrate. CAD: Status post PCI LAD in 2004. Continue home aspirin, atorvastatin, metoprolol, losartan. Hypertension: Continue home losartan, metoprolol, amlodipine. Dyslipidemia: Continue home statin. Chronic kidney disease stage III: Creatinine at baseline is 1.1, mildly elevated due to diuresis/Aldactone, monitor. History of DVT: Anticoagulated on warfarin, continue. Tachycardia-bradycardia syndrome: Status post pacemaker. Anemia of chronic disease: Hemoglobin at baseline, continue with home vitamin B12. MARTI: Intolerant to CPAP. Uses 2 L O2 at bedtime. Depression and anxiety: Continue duloxetine, lorazepam as needed DVT prophylaxis: Patient on warfarin. Full code Dispo: PT/OT, likely will need rehab. Please note the above document was generated using voice recognition software. It may contain grammatical, syntax or spelling errors. Any formal questions or concerns about the content, text or information contained within the body of this dictation should be directly addressed to the provider for clarification Admission and Anticipated Discharge Date Admission Date: May 27, 2023 Subjective Patient was seen and examined at bedside. Patient was sitting up in bed, on 2 L oxygen via nasal cannula, NAD, resting comfortably. Patient denies any headache or chest pain or increased shortness of breath. Pt reports generalized body aches, and knee pain, no knee erythema or tenderness. c/w voltaren gel to knees, pt reports help. Patient denies other ROS. Had temp of 38C today (further temps are normal), WBC wnl. UA and CXR neg for infection. Blood and urine Cx pending. Pt w/ no cough or pain/burn w/ passing urine or headache or diarrhea. continue to monitor off antibiotic. Physical Exam Physical Exam: Constitutional: WD/WN, vitals as above, NAD, sitting up in chair, pleasant, conversing easily Respiratory: Bilateral crackles present at bases Cardiovascular: RRR, no murmur, no edema Vessels: no JVD or carotid bruit Chest: normal inspection of chest Abdomen: normal bowel sounds, soft, nontender, no hepatosplenomegaly Musculoskeletal: no cyanosis or clubbing, extremities motor strength 5/5 Skin: no rashes, warm and dry normal turgor Neurologic: PERRL, EOMI, accommodation nl, no face palsy, no dysarthria CN's II- XI intact bilaterally and moves all extremities Psychiatric: A+Ox3, euthymic affect Results & Data Results & Data Vital Signs (Past 12 Hours) Vital Signs Temp Pulse Pulse Resp BP Pulse Ox O2 Del Method 06/03/23 11:00 36.5 C 96 H 78 16 125/58 L 99 Nasal Cannula 06/03/23 07:00 36.7 C 80 88 18 141/62 H 97 Nasal Cannula O2 Flow Rate 06/03/23 11:00 2 06/03/23 07:00 2
--- NOTE | 2023-06-03 15:29 | Cardiology Progress Note ---
Date of Service June 03, 2023 Assessment & Plan (1) Acute on chronic systolic heart failure: (2) Chronic kidney disease (CKD), stage III (moderate): (3) Permanent atrial fibrillation: (4) Pacemaker: (5) Sleep apnea: Plan: Uses nocturnal oxygen Plan 87-year-old female with known nonischemic cardiomyopathy, moderate to severe mitral tricuspid insufficiency and chronic systolic and diastolic heart failure. Patient presents with worsening symptoms of dyspnea increased heart rate and palpitations over several week. Notes reduction in oral diuretic dosing as an outpatient due to frequent urination Temperature mildly elevated 06/02/23, at 9:49 , 37.6. -UA, culture, blood cultures ordered for completeness- UA negative for infection, no growth on urine / blood cultures thus far. Acute on chronic mixed systolic and diastolic heart failure now improved clinically. * Continue metoprolol succinate 150 mg twice daily for rate control as well as digoxin which has been reinitiated with dose of 125 mg daily on Mondays, Wednesdays and Fridays only * Hold furosemide 40 mg daily for creatinine which has increased to 2 mg/dl. Hold spironolactone * OK to continue digoxin , Tue, Fridays, for now, as pacemaker is in place for HR support. * INR 1.9 today. Coumadin 3 mg daily. Repeat INR tomorrow. * Increase activity as tolerated * Consult nutrition per pt request. At discharge consider resuming furosemide at 20 mg three days per week. Pt not taking on admission. Cardiology to sign off. Call with questions or concerns. Admission and Anticipated Discharge Date Admission Date: May 27, 2023 Subjective Pt seen in cardiology. Denies shortness of breath. Telemetry reveals AF in the 80s with PVCs. Physical Exam Constitutional: well developed; no acute distress Eyes: PERRL, conjunctivae normal, anicteric sclerae ENMT: external ear and nose normal, oropharynx normal Neck: trachea midline, no thyromegaly Respiratory: Auscultation: + crackles and + rales (Bibasilar) Cardiovascular: Rate/Rhythm: + irregularly irregular Heart Sounds: + murmur Extremities: no edema Gastrointestinal (Abdomen): normal bowel sounds, soft, nontender, no hepatosplenomegaly Musculoskeletal: no cyanosis or clubbing, extremities motor strength 5/5 Results & Data Vital Signs (Past 12 Hours) Vital Signs Temp Pulse Pulse Resp BP Pulse Ox O2 Del Method 04/05/24 11:00 36.5 C 96 H 78 16 125/58 L 99 Nasal Cannula 06/03/23 07:00 36.7 C 80 88 18 141/62 H 97 Nasal Cannula O2 Flow Rate 06/03/23 11:00 2 06/03/23 07:00 2 Laboratory Results Coagulation 06/03/23 Range/Units 04:14 PT 20.3 H (9.0-12.0) Seconds CBC 06/03/23 Range/Units 04:14 WBC 7.58 (4.8-10.8) K/ul RBC 3.41 L (4.20-5.40) M/uL Hgb 9.3 L (12.0-16.0) g/dl Hct 30.4 L (37.0-47.0) % Plt Count 109 L (130-400) K/uL Comprehensive Metabolic Panel 06/03/23 Range/Units 04:14 Sodium 130 L (136-145) mmol/L Potassium 4.8 (3.5-5.1) mmol/L Chloride 94 L (98-107) mmol/L Carbon Dioxide 29 (21-32) mmol/L BUN 56 H (6-23) mg/dl Creatinine 2.03 H (0.6-1.2) mg/dl Glucose 96 (70-99(Fasting)) mg/dl Calcium 10.5 H (8.6-10.3) mg/dl
[2023-06-03] MEDS ORDERED: WARFARIN SOD 3 MG TAB PO SCH (16:00)
[2023-06-04 07:52] LABS: Hematocrit (blood only) 30.5 % (37.0-47.0); Hemoglobin 9.7 g/dl (12.0-16.0); Mean Corpuscular Hemoglobin 28.9 pg (25.0-34.0); Mean Corpuscular Hgb Conc 31.8 g/dL (32.0-36.0); Mean Corpuscular Volume 90.8 fL (80.0-100.0); Mean Platelet Volume 10.7 fL (9.4-12.4); Platelet Count 118 K/uL (130-400); RDW Coefficient of Variation 17.8 % (11.5-14.5); RDW Standard Deviation 54.7 fL (36.4-46.3); Red Blood Count 3.36 M/uL (4.20-5.40); White Blood Count 10.37 K/ul (4.8-10.8)
[2023-06-04 08:10] LABS: BUN Creatinine Ratio 25.3 (10-20); Calcium 10.5 mg/dl (8.6-10.3); Creatinine Clr Calc Pharmacy 16.4 ml/min; Est GFR (African American) 17.7 ml/min; Est GFR (Non-African American) 15.2 ml/min; Phosphorus 4.3 mg/dl (2.5-4.9); Potassium 5.2 mmol/L (3.5-5.1)
[2023-06-04 08:16] LABS: INR 2.3 (0.9-1.1); Prothrombin Time 23.8 Seconds (9.0-12.0)
[2023-06-04] MEDS: WARFARIN SOD 3 MG TAB PO SCH (15:48)
--- NOTE | 2023-06-04 16:03 | Hospitalist Progress Note ---
Date of Service June 04, 2023 Assessment & Plan (1) Acute on chronic combined systolic and diastolic heart failure: Plan: 87 yo female with PMH of HTN, dyslipidemia, CAD s/p PCI LAD in 2004, atrial fibrillation, tachybradycardia syndrome s/p pacemaker, history of DVT, PE, on chronic anticoagulation with warfarin, chronic CHF, CKD III, MARTI and hypoxemia on 2 L oxygen at bedtime, chronic pernicious anemia, depression, anxiety, venous insufficiency, GERD, presented to ER with c/o SOB and increased palpations x 2 weeks. Has been off digoxin since 03/2023 and has only been taking lasix 3 days a week. She is being managed for the following: Acute on chronic combined systolic and diastolic heart failure: CXR on admission personally reviewed cardiomegaly with mild interstitial pulm onary edema and a trace right pleural effusion. BNP: 982, Troponin: 18. No leukocytosis. Negative respiratory BioFire panel. TSH: 1.6 EKG: atrial fibrillation, rate 103, Repeat CXR- persistent pulmonary edema; mildly improved. Has been on furosemide 40 mg daily and spironolactone 12.5 mg daily since admission Digoxin restarted; to be given on 0.125 Tuesday and Tuesday at discharge Creatinine went up and Lasix and his prolactin has been on hold since 06/01/2025. Lisinopril is on hold too Appreciate cardiology input and recommendation She complains to weakness but denies any other significant symptoms Advised to drink more fluid Will monitor PRP Chronic kidney disease stage III: Creatinine at baseline is 1.1, mildly elevated due to diuresis/Aldactone, monitor. Creatinine went up from 1.1-2.73 as of 06/04/2023 Her furosemide, spironolactone and lisinopril are on hold She was advised to drink more fluid Will monitor PRP Plan Other significant medical problems are as below; Fever: Had temp of 38C today (further temps are normal), WBC wnl. UA and CXR neg for infection. Blood and urine Cx pending. Pt w/ no cough or pain/burn w/ passing urine or headache or diarrhea. continue to monitor off antibiotic. No abd pain on exam. Hypomagnesemia: 1.6 at admission, repleted. Monitor and replete. Other chronic medical conditions: Continue with/resume home meds as and when able. Permanent atrial fibrillation: Anticoagulated with warfarin, INR 1.9, PT/INR in AM. increased warfarin dose to 3 mg daily, continue to titrate. CAD: Status post PCI LAD in 2004. Continue home aspirin, atorvastatin, metoprolol, losartan. Hypertension: Continue home losartan, metoprolol, amlodipine. Dyslipidemia: Continue home statin. History of DVT: Anticoagulated on warfarin, continue. Tachycardia-bradycardia syndrome: Status post pacemaker. Anemia of chronic disease: Hemoglobin at baseline, continue with home vitamin B12. MARTI: Intolerant to CPAP. Uses 2 L O2 at bedtime. Depression and anxiety: Continue duloxetine, lorazepam as needed DVT prophylaxis: Patient on warfarin. Full code Dispo: PT/OT-recommended rehab Please note the above document was generated using voice recognition software. It may contain grammatical, syntax or spelling errors. Any formal questions or concerns about the content, text or information contained within the body of this dictation should be directly addressed to the provider for clarification Admission and Anticipated Discharge Date Admission Date: May 27, 2023 Subjective 06/04/2023 The patient was seen and examined in telemetry unit She has been feeling better but remains very weak and lethargic Denies any cardiac and respiratory symptoms She was advised to drink more fluid Review of Systems Review of Systems: All systems reviewed and are unremarkable except as noted below Physical Exam Physical Exam: Lying in bed without any acute distress Constitutional: well developed, well nourished, + ill appearing and average body habitus Eyes: PERRL, conjunctivae normal, anicteric sclerae ENMT: external ear and nose normal, oropharynx normal Neck: trachea midline, no thyromegaly Respiratory: no respiratory distress Auscultation: + diminished lung sounds and + crackles (Minimal bibasilar crackles) Cardiovascular: Rate/Rhythm: regular rate and regular rhythm Heart Sounds: normal S1 and normal S2; no murmur Extremities: no edema Gastrointestinal (Abdomen): Inspection/Auscultation: normal bowel sounds; abdomen not distended Percussion/Palpation: abdomen soft; abdomen nontender Musculoskeletal: No acute arthritis involving any of the joint Neurologic: normal touch/pain/proprioception and moves all extremities; no focal motor deficits Lymphatic: no cervical or axillary lymphadenopathy Results & Data Results & Data Vital Signs (Past 12 Hours) Vital Signs Temp Pulse Pulse Resp BP Pulse Ox O2 Del Method 04/06/24 12:09 37.0 C 76 69 18 125/75 97 Nasal Cannula 06/04/23 11:23 Nasal Cannula 06/04/23 07:59 36.9 C 97 H 77 20 135/62 96 Nasal Cannula O2 Flow Rate 06/04/23 12:09 2 06/04/23 11:23 2 06/04/23 07:59 2 Laboratory Results Short CBC 06/04/23 Range/Units 07:05 WBC 10.37 (4.8-10.8) K/ul Hgb 9.7 L (12.0-16.0) g/dl Hct 30.5 L (37.0-47.0) % Plt Count 118 L (130-400) K/uL BMP 06/04/23 07:05 Sodium 130 L Potassium 5.2 H Chloride 95 L Carbon Dioxide 28 BUN 69 H Creatinine 2.73 H D Glucose 101 H Calcium 10.5 H Medications Administered Current Inpatient Medications Acetaminophen (Acetaminophen 325 Mg Tab) 650 mg PO Q4H PRN PRN Reason: Pain or Fever Stop: 06/26/23 17:18 Last Admin: 06/03/23 20:14 Dose: 650 mg Amlodipine Besylate (Amlodipine Besylate 5 Mg Tab) [facility] Stop: 06/27/23 08:59 Last Admin: 06/04/23 09:02 Dose: 5 mg Aspirin (Aspirin 81 Mg Chew) 81 mg [facility] Stop: 06/26/23 17:29 Last Admin: 06/04/23 09:02 Dose: 81 mg Atorvastatin Calcium (Atorvastatin 40 Mg Tab) 40 mg PO [facility] Stop: 06/26/23 20:59 Last Admin: 06/03/23 20:14 Dose: 40 mg Cyanocobalamin (Cyanocobalamin (B-12) 500 Mcg Tablet) 1,000 mcg PO MoWeFr@0900 [facility] Stop: 06/29/23 08:59 Last Admin: 06/03/23 09:50 Dose: 1,000 mcg Diclofenac Sodium (Diclofenac Sod 1% Gel 100 Gm Tube) 2 gm EXT Q6H [facility]; Protocol Stop: 07/02/23 17:14 Last Admin: 06/04/23 15:54 Dose: 2 gm Digoxin (Digoxin 0.125 Mg Tab) 0.125 mg PO MoWeFr@0900 [facility] Stop: 07/01/23 08:59 Last Admin: 06/03/23 09:50 Dose: 0.125 mg Duloxetine HCl (Duloxetine Hcl 30 Mg Cap) 30 mg [facility] Stop: 06/27/23 08:59 Last Admin: 06/04/23 09:02 Dose: 30 mg Fluticasone Propionate (Fluticasone Propionate Na Spr 16 Gm Btl) 2 sprays NA DAILY [facility] Stop: 06/28/23 10:44 Last Admin: 06/04/23 09:01 Dose: 2 sprays Furosemide (Furosemide 40 Mg Tab) 40 mg [facility] Stop: 06/28/23 08:59 Last Admin: 06/02/23 09:30 Dose: 40 mg Latanoprost (Latanoprost 0.005% Op Soln 2.5 Ml Btl) 1 drops OP HS [facility] Stop: 06/26/23 20:59 Last Admin: 06/03/23 20:13 Dose: 1 drops Lorazepam (Lorazepam 0.5 Mg Tab) 0.5 mg PO TID PRN PRN Reason: Anxiety Stop: 06/26/23 17:18 Last Admin: 05/29/23 01:09 Dose: 0.5 mg Losartan Potassium (Losartan Potassium 50 Mg Tab) 100 mg PO [facility] Stop: 06/27/23 08:59 Last Admin: 06/02/23 09:30 Dose: 100 mg Menthol (Cough Drop (Sugar Free) Omega 24 Omega/1 Box) 1 omega BUCCAL PRN PRN PRN Reason: Sore Throat Stop: 07/01/23 19:54 Last Admin: 06/01/23 20:25 Dose: 1 omega Metoprolol Succinate (Metoprolol Succ 50mg Ext Rel Tab) 150 mg PO BID [facility] Stop: 06/26/23 20:59 Last Admin: 06/04/23 09:02 Dose: 150 mg Ondansetron HCl (Ondansetron Inj 2 Mg/Ml 2 Ml Vial) 4 mg IV Q6H PRN PRN Reason: Nausea And Vomiting Stop: 06/29/23 17:10 Last Admin: 05/30/23 17:20 Dose: 4 mg Pantoprazole Sodium (Pantoprazole 40 Mg Tab) 40 mg PO [facility] Stop: 06/27/23 08:59 Last Admin: 06/04/23 09:02 Dose: 40 mg Polyethylene Glycol (Polyethylene (Miralax) 17 Gm Pack) 17 gm PO DAILY PRN PRN Reason: Constipation Stop: 06/26/23 17:18 Last Admin: 06/01/23 17:58 Dose: 17 gm Sodium Chloride (Sodium Chloride 0.65% Na Soln 45 Ml ([place])) 2 sprays NA BID PRN PRN Reason: Nasal Congestion Stop: 06/28/23 00:12 Last Admin: 05/29/23 08:57 Dose: 2 sprays Spironolactone (Spironolactone 12.5 Mg Tab) 12.5 mg PO DAILY [facility] Stop: 06/27/23 11:14 Last Admin: 06/02/23 09:32 Dose: 12.5 mg Vitamin D (Cholecalciferol 25 Mcg (1000 Units) Tab) 25 mcg PO QAM [facility] Stop: 06/27/23 08:59 Last Admin: 06/04/23 09:02 Dose: 25 mcg Warfarin Sodium (Warfarin Sod 3 Mg Tab) 3 mg PO DAILY@1600 [facility] Stop: 07/04/23 15:59 Last Admin: 06/04/23 15:48 Dose: 3 mg
[2023-06-04] MEDS: SODIUM CHLORIDE 0.9% 1,000 ML IV SCH (20:01)
[2023-06-05 08:26] LABS: BUN Creatinine Ratio 25.7 (10-20); Calcium 10.1 mg/dl (8.6-10.3); Creatinine Clr Calc Pharmacy 13.5 ml/min; Est GFR (Non-African American) 12.1 ml/min; Phosphorus 4.7 mg/dl (2.5-4.9); Potassium 5.5 mmol/L (3.5-5.1)
[2023-06-05 08:27] LABS: INR 3.2 (0.9-1.1); Prothrombin Time 32.1 Seconds (9.0-12.0)
[2023-06-05] MEDS: SODIUM CHLORIDE 0.9% 1,000 ML IV SCH (10:45)
[2023-06-05] MEDS ORDERED: STAT IV/IM STA (11:00)
--- NOTE | 2023-06-05 11:02 | Nephrology Consultation ---
Date of Consultation June 05, 2023 Assessment & Plan (1) VINITA (acute kidney injury): Clear sustained rise in Creat last 5 days now. Such sustained rise while inpt setting is most consistent with ATN. her urine also looks muddy brown type. her ECHO and CXR is more consistent with fluid overload. However she has not really ate or drank much for many days. Despite iv fluids and holding diuretics creat has continued to go up which is concerning. No dialysis today but cannot rule out. na is dropping and k is rising with VINITA. agree with stopping losartan, Aldactone and lasix. Avoid Contrast agents, NSAIDS or any renal toxic drugs. will stop current NS. give i liter of 1/2 ns with sodium bicarb--to try to lower the K a bit. also Add lokelma for high K. repeat CXR tomorrow. Also do uA and urine Osm today (2) Hyponatremia: Dropping Na and rising K in a ptient with VINITA now. the overall pattern is more consistent with ATN. Multiple meds stopped and will see the response tomorrow. (3) Acute on chronic combined systolic and diastolic heart failure: ECHO reviewed. Plan Case complexity high. Plan discussed with Primary team History of Present Illness Reason for Consultation: Vinita and Hyponatremia Attending Physician: Juan Miguel Rivera MD History of Present Illness 87/F with CHF ( EF 45%), HTN, CAD s/p PCI LAD in 2004, atrial fibrillation, tachybradycardia syndrome s/p pacemaker, history of DVT, PE, on chronic anticoagulation with warfarin, CKD III ( baseline creat about 1.3) MARTI and hypoxemia on 2 L oxygen at bedtime, chronic pernicious anemia, depression, anxiety, venous insufficiency presented to ER with c/o SOB x 2 weeks. Evaluated by cardiology on 03/31/2023 as outpt and it was recommended to lower dose of Digoxin and was also suggested to increase furosemide to 20 mg daily as patient was taking on MWF schedule. was seen by cardiology and was given some Iv lasix and then lasix Po. None since 06/02 though. got 1 liter of NS yesterday. Creat was baseline 5 days ago at 1.2 and since then steadily going up and now is 3.3 and Na is dropping. her Oral intake is low and urine output also low and Looks muddy brown. Poor historian and is quite weak. BP has not been low on the documentation. was getting Losartan, Aldactone , lasix ---now stopped. worth noting Aldactone was added this admission. ROS--12 Systems reviewed and negative Physical Exam Constitutional: well developed; no acute distress. weak and soft speech Eyes: PERRL, conjunctivae normal, anicteric sclerae ENMT: MM moist Neck: Supple, No JVD Respiratory: Auscultation: + crackles and + rales (Bibasilar) Cardiovascular: Rate/Rhythm: + irregularly irregular Heart Sounds: + murmur Extremities: Trace edema Gastrointestinal (Abdomen): normal bowel sounds, soft, nontender, no hepatosplenomegaly Musculoskeletal: no cyanosis or clubbing, extremities motor strength 5/5 Allergies Allergy/AdvReac Type Severity Reaction Status Date / Time amiodarone Allergy Severe shortness Verified 12/09/22 10:17 of breath Iodinated Contrast Media Allergy Severe Wheezing Verified 12/09/22 10:17 Thiazides Allergy Severe wheezing Verified 12/09/22 10:17 alendronate sodium Allergy Intermediate Wheezing, Verified 12/09/22 10:17 shortness of breath. ibandronate sodium Allergy Intermediate trouble Verified 12/09/22 10:17 [From Maria Fernanda] swallowing red dye Allergy Intermediate Hives Verified 12/09/22 10:17 simvastatin Allergy Intermediate Muscle Verified 12/09/22 10:17 pain. morphine AdvReac Severe Confusion Verified 12/09/22 10:17 ezetimibe AdvReac Intermediate Muscle Verified 12/09/22 10:17 pain. erythromycin base AdvReac Mild Nausea Verified 12/09/22 10:17 metoprolol AdvReac Unknown must be Verified 12/09/22 10:18 caraco brand Home Medications Medication Instructions Recorded Confirmed Type ascorbic acid (vitamin C) 1,000 mg 50 mg PO DAILY 01/13/21 05/27/23 History tablet (Vitamin C) cyanocobalamin (vitamin B-12) 1,000 mcg PO [id number] 01/13/21 05/27/23 History 1,000 mcg tablet (Vitamin B-12) latanoprost (PF) 0.005 % eye drops 1 drp OPB HS 01/13/21 05/27/23 History aspirin 81 mg chewable tablet 81 mg PO QAM 05/21/21 05/27/23 History (Aspirin Childrens) furosemide 40 mg tablet 20 mg PO .MON,TUE,Tuesday05/21/21 05/27/23 History lorazepam 0.5 mg tablet 0.5 mg PO TID PRN Anxiety 05/21/21 05/27/23 History Oxygen Home [id number] 06/18/21 05/27/23 History acetaminophen 500 mg tablet 500 mg PO QID PRN Pain 06/18/21 05/27/23 History (Tylenol Extra Strength) denosumab 60 mg/mL subcutaneous 60 mg subcut UD 06/18/21 05/27/23 History syringe (Prolia) amlodipine 5 mg tablet 5 mg PO QAM 06/16/22 05/27/23 History cholecalciferol (vitamin D3) 25 25 mcg PO QAM 06/16/22 05/27/23 History mcg (1,000 unit) capsule (Vitamin D3) duloxetine 30 mg capsule,delayed 30 mg PO QAM 06/16/22 05/27/23 History release losartan 100 mg tablet 100 mg PO QAM 06/16/22 05/27/23 History metoprolol succinate 100 mg 150 mg PO BID 06/16/22 05/27/23 History tablet,extended release 24 hr omeprazole 20 mg capsule,delayed 20 mg PO QAM 06/16/22 05/27/23 History release warfarin 2 mg tablet 2 mg PO UD 06/16/22 05/27/23 History atorvastatin 40 mg tablet 40 mg PO HS 12/01/22 05/27/23 History sennosides 8.6 mg-docusate sodium 2 tab-cap PO HS PRN Constipation 05/27/23 05/27/23 History 50 mg capsule (Senna Plus) Patient History Medical History Tachy-kraig syndrome Hx of basal cell carcinoma Superficial thrombophlebitis posterior right knee - monitoring with PCP currently. History of ganglion cyst NSVT (nonsustained ventricular tachycardia) pt unsure of details C. difficile diarrhea s/p hemicolectomy 04/2021 - no problems since. Chronic anticoagulation Pulmonary emboli pt denies -> states only had a DVT Venous insufficiency Closed fracture of facial bone Mitral valve disease Degenerative disc disease, lumbar Dyslipidemia CAD (coronary artery disease) Deep vein thrombosis (DVT) of right lower extremity s/p hemicolectomy 04/27/21 Osteoporosis Labile blood pressure hx of vasovagal syncope Hyperparathyroidism for conservative management Anxiety Paroxysmal atrial fibrillation Chronic diastolic heart failure Colon adenocarcinoma Diagnosed Dec 2020>surgery only Abnormal nuclear stress test Normal cardic catheterization in Mar 2020 Frequent falls last fall>a couple months ago, using cane Osteoarthritis Chronic kidney disease (CKD), stage III (moderate) follows with Dr. Butler GERD (gastroesophageal reflux disease) Glaucoma Depression Myocardial Infarction (~2005) follows with Poli Zepeda PA-C @ [facility]>2005 or 2005? Pacemaker (~2011) Medtronic Model: [id number] Dual-chamber last checked>10/05/22 Cardiac murmur History of COVID-19 diagnosed 02/2020 @ [facility]--fever, headache, cough, loss of taste/smell--no issues now Sleep apnea 2L N/C at hs Surgical History H/O colonoscopy with polypectomy H/O vein stripping Left leg History of esophagogastroduodenoscopy (EGD) Status post subtotal parathyroidectomy 2009 R inferior adenoma S/P right hemicolectomy d/t colon cancer History of partial hysterectomy History of dilatation and curettage History of facial surgery metal plate under left eye/left cheek S/P excision of lipoma History of arthroscopy of left knee History of colonoscopy History of tooth extraction all teeth History of parathyroidectomy partial @ [facility] History of bilateral cataract extraction History of cardiac cath 2005 with 1 stent placed @ [place] Family History Mother , 66yo Lymphoma Father Medical history unknown Brother Accident Brother Lung cancer Smoker Diabetes Hypertension Sister Heart disease Heart surgery Sister No problems noted. Sister Endometrial cancer Thyroid disease Sister Overdose Son COPD (chronic obstructive pulmonary disease) Diabetes Myocardial infarction Hypertension Son No problems noted. Son Throat cancer Hypertension Daughter Atrial fibrillation Daughter No problems noted. 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
[2023-06-05] MEDS: SODIUM BICARBONATE 8.4% 75 MEQ in SODIUM CHLORIDE 0.45 % 1,000 ML IV SCH (11:20)
[2023-06-05] MEDS: SODIUM ZIRCONIUM CYCLOSILICATE 10 GM PACKET PO SCH (11:21)
[2023-06-05 13:03] LABS: Appearance Urine Cloudy (Clear); Bacteria Urine Automated 3+ (Negative); Bilirubin Urine Negative (Negative); Blood Urine 1+ (Negative); Color Urine Dark Yellow; Epithelial Cell Urine Auto >30 /lpf (0-5); Glucose Urine UA Negative (Negative); Ketones Urine Trace (Negative); Leukocyte Esterase Urine Trace (Negative); Nitrite Urine Negative (Negative); Protein Urine 3+ (Negative); Specific Gravity Urine 1.023 (1.000-1.030); Urobilinogen Urine Negative (Negative)
[2023-06-05 13:15] LABS: Renal Epithelial Cells Urine 0-5 /lpf (0-5)
--- NOTE | 2023-06-05 13:38 | CT Scan Report ---
CT head/brain wo con CLINICAL HISTORY: Acute confusion,r/o stroke/bleed Technique: Contiguous axial CT images of the head were acquired from the base of the skull to the dulce maria javi without intravenous contrast administration. Images were viewed in brain, subdural and bone [facility]. Automated dose lowering techniques and/or adjustment according to patient size were utilized for this exam. Comparison: Comparison is made to CT head 05/27/2023 Findings: Areas of decreased attenuation are present in the periventricular and subcortical white matter bilate rally consistent with small vessel ischemic disease. Generalized cerebral atrophy with commensurate e nlargement of the ventricles, sulci, and cisterns is also present. There is no acute intracranial hem orrhage or evidence of acute territorial infarction. No shift of the midline structures, mass effect, or extra-axial abnormalities are shown. Atherosclerotic calcifications are present in the intracran ial segments of the internal carotid arteries. Postsurgical changes are seen in the left maxillary s inus wall. Imaged portions of the paranasal sinuses and mastoid air cells are clear. The orbits appear normal. There are no acute fractures of the calvaria or scalp swelling. Impression: No acute intracranial hemorrhage, no evidence of acute territorial infarction or other acute intracra nial disease process. ACT 112: Negative or not required by law. Electronically signed by: Brian Lynn M.D. 06/05/2023 1:37 PM
--- NOTE | 2023-06-05 14:43 | Hospitalist Progress Note ---
Date of Service June 05, 2023 Assessment & Plan (1) Acute on chronic combined systolic and diastolic heart failure: Plan: 87 yo female with PMH of HTN, dyslipidemia, CAD s/p PCI LAD in 2004, atrial fibrillation, tachybradycardia syndrome s/p pacemaker, history of DVT, PE, on chronic anticoagulation with warfarin, chronic CHF, CKD III, MARTI and hypoxemia on 2 L oxygen at bedtime, chronic pernicious anemia, depression, anxiety, venous insufficiency, GERD, presented to ER with c/o SOB and increased palpations x 2 weeks. Has been off digoxin since 03/2023 and has only been taking lasix 3 days a week. She is being managed for the following: Acute on chronic combined systolic and diastolic heart failure: CXR on admission personally reviewed cardiomegaly with mild interstitial pulm onary edema and a trace right pleural effusion. BNP: 982, Troponin: 18. No leukocytosis. Negative respiratory BioFire panel. TSH: 1.6 EKG: atrial fibrillation, rate 103, Repeat CXR- persistent pulmonary edema; mildly improved. Has been on furosemide 40 mg daily and spironolactone 12.5 mg daily since admission Digoxin restarted; to be given on 0.125 Tuesday and Tuesday at discharge Creatinine went up and Lasix and his prolactin has been on hold since 06/01/2025. Lisinopril is on hold too Appreciate cardiology input and recommendation She complains to weakness but denies any other significant symptoms Advised to drink more fluid Received 1 L of intravenous fluid yesterday and has not been eating or drinking much Clinically better but remains weak Acute confusion Noted to be more confused last evening Was given intravenous fluid with 1 L of normal saline Confusion is much improved today Daughters wanted to have a CAT scan to make sure there is no stroke CT came back negative for any abnormality VINITA Chronic kidney disease stage III: Creatinine at baseline is 1.1, mildly elevated due to diuresis/Aldactone, monitor. Creatinine went up from 1.1-2.73 as of 06/04/2023 Her furosemide, spironolactone and lisinopril are on hold She was advised to drink more fluid Creatinine worsened with increasing potassium and decreasing sodium Secondary to VINITA Appreciate nephrology input and recommendation-has been getting half-normal saline with bicarb to improve potassium Will monitor PRP Plan Other significant medical problems are as below; Fever: Had temp of 38C today (further temps are normal), WBC wnl. UA and CXR neg for infection. Blood and urine Cx pending. Pt w/ no cough or pain/burn w/ passing urine or headache or diarrhea. continue to monitor off antibiotic. No abd pain on exam. Hypomagnesemia: 1.6 at admission, repleted. Monitor and replete. Other chronic medical conditions: Continue with/resume home meds as and when able. Permanent atrial fibrillation: Anticoagulated with warfarin, INR 1.9, PT/INR in AM. increased warfarin dose to 3 mg daily, continue to titrate. CAD: Status post PCI LAD in 2004. Continue home aspirin, atorvastatin, metoprolol, losartan. Hypertension: Continue home losartan, metoprolol, amlodipine. Dyslipidemia: Continue home statin. History of DVT: Anticoagulated on warfarin, continue. Tachycardia-bradycardia syndrome: Status post pacemaker. Anemia of chronic disease: Hemoglobin at baseline, continue with home vitamin B12. MARTI: Intolerant to CPAP. Uses 2 L O2 at bedtime. Depression and anxiety: Continue duloxetine, lorazepam as needed DVT prophylaxis: Patient on warfarin. Full code Dispo: PT/OT-recommended rehab Please note the above document was generated using voice recognition software. It may contain grammatical, syntax or spelling errors. Any formal questions or concerns about the content, text or information contained within the body of this dictation should be directly addressed to the provider for clarification Admission and Anticipated Discharge Date Admission Date: May 27, 2023 Subjective 06/04/2023 The patient was seen and examined in telemetry unit She has been feeling better but remains very weak and lethargic Denies any cardiac and respiratory symptoms She was advised to drink more fluid 06/05/2023 The patient was seen and examined in telemetry unit She has been feeling little better today Was noted to be confused last evening in presence of the daughter She has loss of appetite and has not been eating or drinking enough Kidney function has gotten worse and nephrology will be consulted Review of Systems Review of Systems: All systems reviewed and are unremarkable except as noted below Physical Exam Physical Exam: Lying in bed without any acute distress Constitutional: well developed, well nourished, + ill appearing and average body habitus Eyes: PERRL, conjunctivae normal, anicteric sclerae ENMT: external ear and nose normal, oropharynx normal Neck: trachea midline, no thyromegaly Respiratory: no respiratory distress Auscultation: + diminished lung sounds and + crackles (Minimal bibasilar crackles) Cardiovascular: Rate/Rhythm: regular rate and regular rhythm Heart Sounds: normal S1 and normal S2; no murmur Extremities: no edema Gastrointestinal (Abdomen): Inspection/Auscultation: normal bowel sounds; abdomen not distended Percussion/Palpation: abdomen soft; abdomen nontender Musculoskeletal: No acute arthritis involving any of the joint Neurologic: normal touch/pain/proprioception and moves all extremities; no focal motor deficits Lymphatic: no cervical or axillary lymphadenopathy Results & Data Results & Data Vital Signs (Past 12 Hours) Vital Signs Temp Pulse Resp BP Pulse Ox O2 Del Method O2 Flow Rate 06/05/23 11:00 36.9 C 89 18 129/64 96 Nasal Cannula 2 06/05/23 08:00 36.8 C 88 20 141/79 H 97 Nasal Cannula 2 06/05/23 03:24 36.8 C 73 18 135/79 96 Nasal Cannula 2 Laboratory Results BMP 06/05/23 07:14 Sodium 128 L Potassium 5.5 H Chloride 95 L Carbon Dioxide 26 BUN 85 H Creatinine 3.31 H D Glucose 92 Calcium 10.1 Urine 06/05/23 Range/Units 11:59 Urine Color Dark Yellow Urine Appearance Cloudy A (Clear) Urine pH 5.0 (4.5-7.5) Ur Specific [place] 1.023 (1.000-1.030) Urine Protein 3+ H (Negative) Urine Glucose (UA) Negative (Negative) Medications Administered Current Inpatient Medications Acetaminophen (Acetaminophen 325 Mg Tab) 650 mg PO Q4H PRN PRN Reason: Pain or Fever Stop: 06/26/23 17:18 Last Admin: 06/04/23 18:53 Dose: 650 mg Amlodipine Besylate (Amlodipine Besylate 5 Mg Tab) [facility] Stop: 06/27/23 08:59 Last Admin: 06/05/23 08:43 Dose: 5 mg Aspirin (Aspirin 81 Mg Chew) 81 [facility] Stop: 06/26/23 17:29 Last Admin: 06/05/23 08:55 Dose: 81 mg Atorvastatin Calcium (Atorvastatin 40 Mg Tab) [address] [facility] Stop: 06/26/23 20:59 Last Admin: 06/04/23 21:35 Dose: 40 mg Cyanocobalamin (Cyanocobalamin (B-12) 500 Mcg Tablet) 1,000 mcg PO MoWeFr@0900 [facility] Stop: 06/29/23 08:59 Last Admin: 06/03/23 09:50 Dose: 1,000 mcg Diclofenac Sodium (Diclofenac Sod 1% Gel 100 Gm Tube) 2 gm EXT Q6H [facility]; Protocol Stop: 07/02/23 17:14 Last Admin: 06/05/23 10:45 Dose: 2 gm Digoxin (Digoxin 0.125 Mg Tab) 0.125 mg PO MoWeFr@0900 [facility] Stop: 07/01/23 08:59 Last Admin: 06/03/23 09:50 Dose: 0.125 mg Duloxetine HCl (Duloxetine Hcl 30 Mg Cap) 30 mg PO QAM [facility] Stop: 06/27/23 08:59 Last Admin: 06/05/23 08:43 Dose: 30 mg Fluticasone Propionate (Fluticasone Propionate Na Spr 16 Gm Btl) 2 sprays NA DAILY [facility] Stop: 06/28/23 10:44 Last Admin: 06/05/23 08:43 Dose: 2 sprays Sodium Bicarbonate 75 meq/ (Sodium Chloride) 1,075 mls @ 80 mls/hr IV .[id number] [facility] Stop: 06/06/23 00:41 Last Admin: 06/05/23 11:20 Dose: 80 mls/hr Latanoprost (Latanoprost 0.005% Op Soln 2.5 Ml Btl) 1 drops OP HS [facility] Stop: 06/26/23 20:59 Last Admin: 06/04/23 21:35 Dose: 1 drops Lorazepam (Lorazepam 0.5 Mg Tab) 0.5 mg PO TID PRN PRN Reason: Anxiety Stop: 06/26/23 17:18 Last Admin: 05/29/23 01:09 Dose: 0.5 mg Menthol (Cough Drop (Sugar Free) Omega 24 Omega/1 Box) 1 omega BUCCAL PRN PRN PRN Reason: Sore Throat Stop: 07/01/23 19:54 Last Admin: 06/01/23 20:25 Dose: 1 omega Metoprolol Succinate (Metoprolol Succ 50mg Ext Rel Tab) 150 mg PO BID [facility] Stop: 06/26/23 20:59 Last Admin: 06/05/23 08:43 Dose: 150 mg Ondansetron HCl (Ondansetron Inj 2 Mg/Ml 2 Ml Vial) 4 mg IV Q6H PRN PRN Reason: Nausea And Vomiting Stop: 06/29/23 17:10 Last Admin: 05/30/23 17:20 Dose: 4 mg Pantoprazole Sodium (Pantoprazole 40 Mg Tab) 40 mg PO QAM [facility] Stop: 06/27/23 08:59 Last Admin: 06/05/23 08:44 Dose: 40 mg Polyethylene Glycol (Polyethylene (Miralax) 17 Gm Pack) 17 gm PO DAILY PRN PRN Reason: Constipation Stop: 06/26/23 17:18 Last Admin: 06/01/23 17:58 Dose: 17 gm Sodium Chloride (Sodium Chloride 0.65% Na Soln 45 Ml ([place])) 2 sprays NA BID PRN PRN Reason: Nasal Congestion Stop: 06/28/23 00:12 Last Admin: 05/29/23 08:57 Dose: 2 sprays Sodium Zirconium Cyclosilicate (Sodium Zirconium Cyclosilicate 10 Gm Packet) 10 gm PO TID@0700,1400,2200 [facility] Stop: 06/07/23 07:01 Last Admin: 06/05/23 11:21 Dose: 10 gm Vitamin D (Cholecalciferol 25 Mcg (1000 Units) Tab) 25 mcg PO QAM [facility] Stop: 06/27/23 08:59 Last Admin: 06/05/23 08:43 Dose: 25 mcg Warfarin Sodium (Warfarin Sod 3 Mg Tab) 3 mg PO DAILY@1600 [facility] Stop: 07/04/23 15:59 Last Admin: 06/04/23 15:48 Dose: 3 mg
[2023-06-05 16:15] LABS: BUN Creatinine Ratio 25.9 (10-20); Calcium 10.1 mg/dl (8.6-10.3); Est GFR (African American) 13.4 ml/min; Est GFR (Non-African American) 11.6 ml/min; Potassium 5.3 mmol/L (3.5-5.1)
[2023-06-06 07:38] LABS: BUN Creatinine Ratio 24.2 (10-20); Creatinine Clr Calc Pharmacy 11.6 ml/min; Est GFR (African American) 11.7 ml/min; Est GFR (Non-African American) 10.1 ml/min; Potassium 4.8 mmol/L (3.5-5.1)
[2023-06-06 07:40] LABS: INR 4.4 (0.9-1.1)
[2023-06-06 08:48] LABS: Basophils # (auto) 0.04 K/uL (0.00-0.20); Basophils % (auto) 0.4 %; Eosinophils # (auto) 0.21 K/uL (0.00-0.50); Hematocrit (blood only) 25.9 % (37.0-47.0); Hemoglobin 8.9 g/dl (12.0-16.0); Immature Granulocytes # (auto) 0.13 K/uL (0.01-0.20); Immature Granulocytes % (auto) 1.3 %; Lymphocytes # (auto) 1.41 K/uL (1.20-3.40); Lymphocytes % (auto) 13.6 %; Mean Corpuscular Hemoglobin 31.8 pg (25.0-34.0); Mean Corpuscular Hgb Conc 34.4 g/dL (32.0-36.0); Mean Corpuscular Volume 92.5 fL (80.0-100.0); Mean Platelet Volume 11.2 fL (9.4-12.4); Monocytes # (auto) 0.55 K/uL (0.11-0.59); Monocytes % (auto) 5.3 %; Neutrophils # (auto) 8.03 K/uL (1.40-6.50); Neutrophils % (auto) 77.4 %; Platelet Count 143 K/uL (130-400); Polychromasia 2+; RDW Coefficient of Variation 20.1 % (11.5-14.5); White Blood Count 10.37 K/ul (4.8-10.8)
--- NOTE | 2023-06-06 09:03 | Nephrology Progress Note ---
Date of Service June 06, 2023 Assessment & Plan (1) VINITA (acute kidney injury): Plan: Clear sustained rise in Creat last 6 days now. Such sustained rise while inpt setting is most consistent with ATN. her urine also looks muddy brown type. her ECHO and CXR is consistent with fluid overload. However she has not really ate or drank much for many days. Despite iv fluids and holding diuretics creat has continued to go up which is concerning. No dialysis today but cannot rule out need na low moderately and labile and k mika with VINITA but improved /normalized on aggressive medical therapy today >last doses of losartan, aldactone were 06/02; last lasix dose 05/31 >>has had adequate resuscitation > she is 1.7 L positive (approximate since I/O incomplete) 06/02-06/05 Avoid Contrast agents, NSAIDS or any renal toxic drugs. now almost certainly oliguric which is ominous continue lokeltn for high K; added low K diet repeat CXR ordered and unchanged; will need to discuss dialysis if no improvement next 24-48 hrs >>pls review digoxin dosing w/ pharmacy and or cardiology given changing renal function << d/w Dr Rivera (2) Acute on chronic combined systolic and diastolic heart failure: Plan: ECHO reviewed. cardiology signed off; monitor CXR Plan Case complexity high. Plan discussed with Primary team Admission and Anticipated Discharge Date Admission Date: May 27, 2023 Subjective 2.5-3L positive yesterday > 90 mL UOP charted + 2 voids not; has purewick currently. seen on late AM rounds. hardly touched her midday meal > tells me she does not have appetite. feels she's not thinking as clearly as she usually does. sob steady after 3L IVF yesterday; denies orthopnea, palpitations, worsening dyspnea. Review of Systems 2 Review of Systems: All systems reviewed & are unremarkable except as noted in Subjective Physical Exam 2 Constitutional: well developed, well nourished and + frail appearing (sitting in bed on 1LNC; very slightly sob w/ speech) Eyes: EOM intact bilaterally ENMT: Ears: no external ear abnormality Nose: no external nose abnormality Mouth: + dry oral mucous membranes Neck: no nuchal rigidity Respiratory: normal respiratory effort Auscultation: + diminished lung sounds Cardiovascular: Rate/Rhythm: regular rate and regular rhythm Extremities: + edema Gastrointestinal (Abdomen): Inspection/Auscultation: normal bowel sounds P ercussion/Palpation: abdomen soft; abdomen nontender Musculoskeletal: Extremities: strength 5/5 throughout Skin: no rashes, warm and dry Neurologic: cardenas, fluent speech, no tremor; very slight psychomotor slowing Results & Data Vital Signs (Past 12 Hours) Vital Signs Temp Pulse Pulse Resp BP Pulse Ox O2 Del Method 06/06/23 08:30 78 06/06/23 07:19 36.9 C 81 17 127/66 92 Nasal Cannula 06/06/23 03:30 37.1 C 89 17 132/64 94 Nasal Cannula 06/05/23 23:15 37.3 C 84 17 128/66 93 Nasal Cannula O2 Flow Rate 06/06/23 08:30 06/06/23 07:19 2.0 06/06/23 03:30 2 06/05/23 23:15 2 Laboratory Results 06/06/23 06:48 06/06/23 06:48 Diagnostic Findings cxr 4/5 mild IS edema; CXT today > IS edema still mild/ unchanged
--- NOTE | 2023-06-06 10:43 | XRay Report ---
XR chest 1V portable HISTORY: 87 years-old Female update volume status history shortness of breath COMPARISON: 06/03/2023 TECHNIQUE: AP view of the chest FINDINGS: Cardiac silhouette is enlarged. Left subclavian pacer. Pulmonary vascular congestion with mild pulmon oh edema redemonstrated. No pneumothorax. Probable trace pleural effusions. Mild bibasilar atelectas is. Degenerative changes of the shoulders and spine. IMPRESSION: Luc with unchanged mild pulmonary edema ACT 112: Negative or not required by law. The above report was generated using voice recognition software. It may contain grammatical, syntax o r spelling errors. Electronically signed by: Jose Cody M.D. 06/06/2023 10:42 AM
--- NOTE | 2023-06-06 17:30 | Hospitalist Progress Note ---
Date of Service June 06, 2023 Assessment & Plan (1) Acute on chronic combined systolic and diastolic heart failure: Plan: 87 yo female with PMH of HTN, dyslipidemia, CAD s/p PCI LAD in 2004, atrial fibrillation, tachybradycardia syndrome s/p pacemaker, history of DVT, PE, on chronic anticoagulation with warfarin, chronic CHF, CKD III, MARTI and hypoxemia on 2 L oxygen at bedtime, chronic pernicious anemia, depression, anxiety, venous insufficiency, GERD, presented to ER with c/o SOB and increased palpations x 2 weeks. Has been off digoxin since 03/2023 and has only been taking lasix 3 days a week. She is being managed for the following: Acute on chronic combined systolic and diastolic heart failure: CXR on admission personally reviewed cardiomegaly with mild interstitial pulm onary edema and a trace right pleural effusion. BNP: 982, Troponin: 18. No leukocytosis. Negative respiratory BioFire panel. TSH: 1.6 EKG: atrial fibrillation, rate 103, Repeat CXR- persistent pulmonary edema; mildly improved. Has been on furosemide 40 mg daily and spironolactone 12.5 mg daily since admission Digoxin restarted; to be given on 0.125 Tuesday and Tuesday at discharge Creatinine went up and Lasix and his prolactin has been on hold since 06/01/2025. Lisinopril is on hold too Appreciate cardiology input and recommendation She complains to weakness but denies any other significant symptoms Advised to drink more fluid Received 1 L of intravenous fluid yesterday and has not been eating or drinking much Creatinine remains stable and a little worse today Was advised to drink about 1.5 L of fluid in a day Digoxin level has been more than 2 and will stop digoxin for now Acute confusion Noted to be more confused last evening Was given intravenous fluid with 1 L of normal saline Confusion is much improved today Daughters wanted to have a CAT scan to make sure there is no stroke CT came back negative for any abnormality No more confusion but remains very weak and lethargic VINITA Chronic kidney disease stage III: Creatinine at baseline is 1.1, mildly elevated due to diuresis/Aldactone, monitor. Creatinine went up from 1.1-2.73 as of 06/04/2023 Her furosemide, spironolactone and lisinopril are on hold She was advised to drink more fluid Creatinine worsened with increasing potassium and decreasing sodium Secondary to VINITA Appreciate nephrology input and recommendation-has been getting half-normal saline with bicarb to improve potassium Will monitor PRP-creatinine has been improving potassium is normalized Will follow recommendations from irrigation installation specialist Plan Other significant medical problems are as below; Fever: Had temp of 38C today (further temps are normal), WBC wnl. UA and CXR neg for infection. Blood and urine Cx pending. Pt w/ no cough or pain/burn w/ passing urine or headache or diarrhea. continue to monitor off antibiotic. No abd pain on exam. Hypomagnesemia: 1.6 at admission, repleted. Monitor and replete. Other chronic medical conditions: Continue with/resume home meds as and when able. Permanent atrial fibrillation: Anticoagulated with warfarin, INR 1.9, PT/INR in AM. increased warfarin dose to 3 mg daily, continue to titrate. CAD: Status post PCI LAD in 2004. Continue home aspirin, atorvastatin, metoprolol, losartan. Hypertension: Continue home losartan, metoprolol, amlodipine. Dyslipidemia: Continue home statin. History of DVT: Anticoagulated on warfarin, continue. Tachycardia-bradycardia syndrome: Status post pacemaker. Anemia of chronic disease: Hemoglobin at baseline, continue with home vitamin B12. MARTI: Intolerant to CPAP. Uses 2 L O2 at bedtime. Depression and anxiety: Continue duloxetine, lorazepam as needed DVT prophylaxis: Patient on warfarin. Full code Dispo: PT/OT-recommended rehab Please note the above document was generated using voice recognition software. It may contain grammatical, syntax or spelling errors. Any formal questions or concerns about the content, text or information contained within the body of this dictation should be directly addressed to the provider for clarification Discussed with the daughters in detail on 06/05/2023 Admission and Anticipated Discharge Date Admission Date: May 27, 2023 Subjective 06/04/2023 The patient was seen and examined in telemetry unit She has been feeling better but remains very weak and lethargic Denies any cardiac and respiratory symptoms She was advised to drink more fluid 06/05/2023 The patient was seen and examined in telemetry unit She has been feeling little better today Was noted to be confused last evening in presence of the daughter She has loss of appetite and has not been eating or drinking enough Kidney function has gotten worse and nephrology will be consulted 06/06/2023 The patient was seen and examined in telemetry unit She denies any respiratory symptoms Does not have any chest pain and/or palpitation Review of Systems Review of Systems: All systems reviewed and are unremarkable except as noted below Physical Exam Physical Exam: Lying in bed without any acute distress Constitutional: well developed, well nourished, + ill appearing and average body habitus Eyes: PERRL, conjunctivae normal, anicteric sclerae ENMT: external ear and nose normal, oropharynx normal Neck: trachea midline, no thyromegaly Respiratory: no respiratory distress Auscultation: + diminished lung sounds and + crackles (Minimal bibasilar crackles) Cardiovascular: Rate/Rhythm: regular rate and regular rhythm Heart Sounds: normal S1 and normal S2; no murmur Extremities: no edema Gastrointestinal (Abdomen): Inspection/Auscultation: normal bowel sounds; abdomen not distended Percussion/Palpation: abdomen soft; abdomen nontender Neurologic: normal touch/pain/proprioception and moves all extremities; no focal motor deficits Lymphatic: no cervical or axillary lymphadenopathy Results & Data Results & Data Vital Signs (Past 12 Hours) Vital Signs Temp Pulse Pulse Resp BP Pulse Ox O2 Del Method 06/06/23 15:14 36.5 C 84 17 120/64 94 Nasal Cannula 06/06/23 11:38 36.3 C L 77 17 126/66 95 Nasal Cannula 06/06/23 08:30 78 06/06/23 07:19 36.9 C 81 17 127/66 92 Nasal Cannula O2 Flow Rate 06/06/23 15:14 06/06/23 11:38 2.0 06/06/23 08:30 06/06/23 07:19 2.0 Laboratory Results Short CBC 06/06/23 Range/Units 06:48 WBC 10.37 (4.8-10.8) K/ul Hgb 8.9 L (12.0-16.0) g/dl Hct 25.9 L (37.0-47.0) % Plt Count 143 (130-400) K/uL BMP 06/06/23 06:48 Sodium 130 L Potassium 4.8 Chloride 94 L Carbon Dioxide 26 BUN 93 H Creatinine 3.85 H D Glucose 88 Calcium 10.0 Medications Administered Current Inpatient Medications Acetaminophen (Acetaminophen 325 Mg Tab) 650 mg PO Q4H PRN PRN Reason: Pain or Fever Stop: 06/26/23 17:18 Last Admin: 06/04/23 18:53 Dose: 650 mg Amlodipine Besylate (Amlodipine Besylate 5 Mg Tab) [facility] Stop: 06/27/23 08:59 Last Admin: 06/06/23 08:30 Dose: 5 mg Aspirin (Aspirin 81 Mg Chew) 81 [facility] Stop: 06/26/23 17:29 Last Admin: 06/06/23 08:39 Dose: 81 mg Atorvastatin Calcium (Atorvastatin 40 Mg Tab) 40 mg PO [facility] Stop: 06/26/23 20:59 Last Admin: 06/05/23 21:36 Dose: 40 mg Cyanocobalamin (Cyanocobalamin (B-12) 500 Mcg Tablet) 1,000 mcg PO MoWeFr@0900 [facility] Stop: 06/29/23 08:59 Last Admin: 06/06/23 08:31 Dose: 1,000 mcg Diclofenac Sodium (Diclofenac Sod 1% Gel 100 Gm Tube) 2 gm EXT Q6H [facility]; Protocol Stop: 07/02/23 17:14 Last Admin: 06/06/23 17:30 Dose: 2 gm Digoxin (Digoxin 0.125 Mg Tab) 0.125 mg PO MoWeFr@0900 [facility] Stop: 07/01/23 08:59 Last Admin: 06/06/23 08:30 Dose: 0.125 mg Duloxetine HCl (Duloxetine Hcl 30 Mg Cap) 30 [facility] Stop: 06/27/23 08:59 Last Admin: 06/06/23 08:31 Dose: 30 mg Fluticasone Propionate (Fluticasone Propionate Na Spr 16 Gm Btl) 2 sprays NA DAILY [facility] Stop: 06/28/23 10:44 Last Admin: 06/06/23 08:30 Dose: 2 sprays Latanoprost (Latanoprost 0.005% Op Soln 2.5 Ml Btl) 1 drops OP HS [facility] Stop: 06/26/23 20:59 Last Admin: 06/05/23 21:35 Dose: 1 drops Lorazepam (Lorazepam 0.5 Mg Tab) 0.5 mg PO TID PRN PRN Reason: Anxiety Stop: 06/26/23 17:18 Last Admin: 05/29/23 01:09 Dose: 0.5 mg Menthol (Cough Drop (Sugar Free) Omega 24 Omega/1 Box) 1 omega BUCCAL PRN PRN PRN Reason: Sore Throat Stop: 07/01/23 19:54 Last Admin: 06/01/23 20:25 Dose: 1 omega Metoprolol Succinate (Metoprolol Succ 50mg Ext Rel Tab) 150 mg PO BID [facility] Stop: 06/26/23 20:59 Last Admin: 06/06/23 08:30 Dose: 150 mg Ondansetron HCl (Ondansetron Inj 2 Mg/Ml 2 Ml Vial) 4 mg IV Q6H PRN PRN Reason: Nausea And Vomiting Stop: 06/29/23 17:10 Last Admin: 05/30/23 17:20 Dose: 4 mg Pantoprazole Sodium (Pantoprazole 40 Mg Tab) [facility] [place] 06/27/23 08:59 Last Admin: 06/06/23 08:30 Dose: 40 mg Polyethylene Glycol (Polyethylene (Miralax) 17 Gm Pack) 17 gm PO DAILY PRN PRN Reason: Constipation Stop: 06/26/23 17:18 Last Admin: 06/01/23 17:58 Dose: 17 gm Sodium Chloride (Sodium Chloride 0.65% Na Soln 45 Ml ([place])) 2 sprays NA BID PRN PRN Reason: Nasal Congestion Stop: 06/28/23 00:12 Last Admin: 05/29/23 08:57 Dose: 2 sprays Sodium Zirconium Cyclosilicate (Sodium Zirconium Cyclosilicate 10 Gm Packet) 10 gm PO TID@0700,1400,2200 [facility] Stop: 06/07/23 07:01 Last Admin: 06/06/23 15:00 Dose: 10 gm Vitamin D (Cholecalciferol 25 Mcg (1000 Units) Tab) 25 mcg PO QAM [facility] Stop: 06/27/23 08:59 Last Admin: 06/06/23 08:30 Dose: 25 mcg Warfarin Sodium (Warfarin Sod 3 Mg Tab) 3 mg PO DAILY@1600 [facility] Stop: 07/04/23 15:59 Last Admin: 06/05/23 16:28 Dose: 3 mg
[2023-06-07 06:38] LABS: BUN Creatinine Ratio 24.9 (10-20); Calcium 9.6 mg/dl (8.6-10.3); Creatinine Clr Calc Pharmacy 11.8 ml/min; Est GFR (African American) 11.8 ml/min; Est GFR (Non-African American) 10.2 ml/min; Potassium 4.1 mmol/L (3.5-5.1)
[2023-06-07 06:44] LABS: INR 4.7 (0.9-1.1)
--- NOTE | 2023-06-07 09:15 | Nephrology Progress Note ---
Date of Service June 07, 2023 Assessment & Plan (1) VINITA (acute kidney injury): Plan: Clear sustained rise in Creat 05/30-06/05, and today plateau'd. Such sustained rise while inpt setting is most consistent with ATN. her urine also looks muddy brown type. her ECHO and CXR is consistent with fluid overload. However she has not really ate or drank much for many days. Despite iv fluids and holding diuretics creat has continued to go up which is concerning though plateau now slightlyl inecouraging. No dialysis today but cannot rule out need <>supratherapeutic INR noted na low moderately and labile and k mika with VINITA but improved /normalized on aggressive medical therapy >last doses of losartan, aldactone were 06/02; last lasix dose 05/31 >>has had adequate resuscitation > she is 1.7 L positive (approximate since I/O incomplete) 06/02-06/05 Avoid Contrast agents, NSAIDS or any renal toxic drugs. -digoxin dose adjusted for worsening renal function 06/05 not oliguric; CXR 06/05 unchanged versus 06/02 and w/ mild pulmonary edema lokelma now held; cont low K diet may need to discuss dialysis if no improvement next 24-48 hrs; for today none needed (2) Acute on chronic combined systolic and diastolic heart failure: Plan: ECHO reviewed. cardiology signed off; monitor CXR/02 needs Plan Case complexity high. Plan discussed with Primary team Admission and Anticipated Discharge Date Admission Date: May 27, 2023 Subjective seen on midday rounds. ongoing extreme fatigue and minimal appetite. sob slightly worse. no uncontrolled pain; + generalized weakness Review of Systems 2 Review of Systems: All systems reviewed & are unremarkable except as noted in Subjective Physical Exam 2 Constitutional: well developed, well nourished and + frail appearing (sitting in bed on 2LNC; very slightly sob w/ speech) Eyes: EOM intact bilaterally ENMT: Ears: no external ear abnormality Nose: no external nose abnormality Mouth: + dry oral mucous membranes Neck: no nuchal rigidity Respiratory: normal respiratory effort Auscultation: + diminished lung sounds Cardiovascular: Rate/Rhythm: regular rate and regular rhythm Extremities: + edema Gastrointestinal (Abdomen): Inspection/Auscultation: normal bowel sounds P ercussion/Palpation: abdomen soft; abdomen nontender Musculoskeletal: Extremities: strength 5/5 throughout Skin: no rashes, warm and dry Results & Data Vital Signs (Past 12 Hours) Vital Signs Temp Pulse Resp BP BP Pulse Ox O2 Del Method 06/07/23 07:52 36.8 C 81 19 129/69 94 Nasal Cannula 06/07/23 03:07 36.8 C 75 16 126/70 94 Nasal Cannula 06/06/23 23:38 36.8 C 66 20 131/72 95 Nasal Cannula 06/06/23 23:20 Nasal Cannula O2 Flow Rate 06/07/23 07:52 2.0 06/07/23 03:07 2 06/06/23 23:38 2 06/06/23 23:20 2 Laboratory Results 06/06/23 06:48 06/07/23 05:40
--- NOTE | 2023-06-07 16:04 | Hospitalist Progress Note ---
Date of Service June 07, 2023 Assessment & Plan (1) Acute on chronic combined systolic and diastolic heart failure: Plan: 87 yo female with PMH of HTN, dyslipidemia, CAD s/p PCI LAD in 2004, atrial fibrillation, tachybradycardia syndrome s/p pacemaker, history of DVT, PE, on chronic anticoagulation with warfarin, chronic CHF, CKD III, MARTI and hypoxemia on 2 L oxygen at bedtime, chronic pernicious anemia, depression, anxiety, venous insufficiency, GERD, presented to ER with c/o SOB and increased palpations x 2 weeks. Has been off digoxin since 03/2023 and has only been taking lasix 3 days a week. She is being managed for the following: Acute on chronic combined systolic and diastolic heart failure: CXR on admission personally reviewed cardiomegaly with mild interstitial pulm onary edema and a trace right pleural effusion. BNP: 982, Troponin: 18. No leukocytosis. Negative respiratory BioFire panel. TSH: 1.6 EKG: atrial fibrillation, rate 103, Repeat CXR- persistent pulmonary edema; mildly improved. Has been on furosemide 40 mg daily and spironolactone 12.5 mg daily since admission Digoxin restarted; to be given on 0.125 Tuesday and Tuesday at discharge Creatinine went up and Lasix and his prolactin has been on hold since 06/01/2025. Lisinopril is on hold too Appreciate cardiology input and recommendation She complains to weakness but denies any other significant symptoms Advised to drink more fluid Received 1 L of intravenous fluid yesterday and has not been eating or drinking much Creatinine remains stable and a little worse today Was advised to drink about 1.5 L of fluid in a day Digoxin level has been more than 2 and will stop digoxin for now Digoxin has been on hold and the heart rate remains around 70s Acute confusion Noted to be more confused last evening Was given intravenous fluid with 1 L of normal saline Confusion is much improved today Daughters wanted to have a CAT scan to make sure there is no stroke CT came back negative for any abnormality No more confusion but remains very weak and lethargic No more acute confusion but she remains very weak and lethargic VINITA Chronic kidney disease stage III: Creatinine at baseline is 1.1, mildly elevated due to diuresis/Aldactone, monitor. Creatinine went up from 1.1-2.73 as of 06/04/2023 Her furosemide, spironolactone and lisinopril are on hold She was advised to drink more fluid Creatinine worsened with increasing potassium and decreasing sodium Secondary to VINITA Appreciate nephrology input and recommendation-has been getting half-normal saline with bicarb to improve potassium Will monitor PRP-creatinine has been improving potassium is normalized Kidney function has not been any better and we will monitor for next 24 to 48 hours Plan Other significant medical problems are as below; Fever: Had temp of 38C today (further temps are normal), WBC wnl. UA and CXR neg for infection. Blood and urine Cx pending. Pt w/ no cough or pain/burn w/ passing urine or headache or diarrhea. continue to monitor off antibiotic. No abd pain on exam. Hypomagnesemia: 1.6 at admission, repleted. Monitor and replete. Other chronic medical conditions: Continue with/resume home meds as and when able. Permanent atrial fibrillation: Anticoagulated with warfarin, INR 1.9, PT/INR in AM. increased warfarin dose to 3 mg daily, continue to titrate. CAD: Status post PCI LAD in 2004. Continue home aspirin, atorvastatin, metoprolol, losartan. Hypertension: Continue home losartan, metoprolol, amlodipine. Dyslipidemia: Continue home statin. History of DVT: Anticoagulated on warfarin, continue. Tachycardia-bradycardia syndrome: Status post pacemaker. Anemia of chronic disease: Hemoglobin at baseline, continue with home vitamin B12. MARTI: Intolerant to CPAP. Uses 2 L O2 at bedtime. Depression and anxiety: Continue duloxetine, lorazepam as needed DVT prophylaxis: Patient on warfarin. Full code Dispo: PT/OT-recommended rehab Please note the above document was generated using voice recognition software. It may contain grammatical, syntax or spelling errors. Any formal questions or concerns about the content, text or information contained within the body of this dictation should be directly addressed to the provider for clarification Discussed with the daughters in detail on 06/05/2023 Discussed with the daughters in detail on 06/07/2023 Admission and Anticipated Discharge Date Admission Date: May 27, 2023 Subjective 06/04/2023 The patient was seen and examined in telemetry unit She has been feeling better but remains very weak and lethargic Denies any cardiac and respiratory symptoms She was advised to drink more fluid 06/05/2023 The patient was seen and examined in telemetry unit She has been feeling little better today Was noted to be confused last evening in presence of the daughter She has loss of appetite and has not been eating or drinking enough Kidney function has gotten worse and nephrology will be consulted 06/06/2023 The patient was seen and examined in telemetry unit She denies any respiratory symptoms Does not have any chest pain and/or palpitation 06/07/2023 The patient was seen and examined in telemetry unit in presence of the daughters She has been any better but looks better Remains weak and lethargic and remains anorexic Denies any significant distress Review of Systems Review of Systems: All systems reviewed and are unremarkable except as noted below Physical Exam Physical Exam: Lying in bed without any acute distress Constitutional: well developed, well nourished, + ill appearing and average body habitus Eyes: PERRL, conjunctivae normal, anicteric sclerae ENMT: external ear and nose normal, oropharynx normal Neck: trachea midline, no thyromegaly Respiratory: no respiratory distress Auscultation: + diminished lung sounds and + crackles (Minimal bibasilar crackles) Cardiovascular: Rate/Rhythm: regular rate and regular rhythm Heart Sounds: normal S1 and normal S2; no murmur Extremities: no edema Gastrointestinal (Abdomen): Inspection/Auscultation: normal bowel sounds; abdomen not distended Percussion/Palpation: abdomen soft; abdomen nontender Neurologic: normal touch/pain/proprioception and moves all extremities; no focal motor deficits Lymphatic: no cervical or axillary lymphadenopathy Results & Data Results & Data Vital Signs (Past 12 Hours) Vital Signs Temp Pulse Pulse Resp BP Pulse Ox O2 Del Method 06/07/23 15:33 36.5 C 70 18 107/58 L 93 Nasal Cannula 06/07/23 11:53 37.2 C 66 19 103/64 96 Nasal Cannula 06/07/23 07:52 36.8 C 81 19 129/69 94 Nasal Cannula O2 Flow Rate 06/07/23 15:33 2 06/07/23 11:53 2.0 06/07/23 07:52 2.0 Laboratory Results [facility] 06/07/23 05:40 Sodium 130 L Potassium 4.1 Chloride 94 L Carbon Dioxide 26 BUN 95 H Creatinine 3.82 H Glucose 94 Calcium 9.6 Medications Administered Current Inpatient Medications Acetaminophen (Acetaminophen 325 Mg Tab) 650 mg PO Q4H PRN PRN Reason: Pain or Fever Stop: 06/26/23 17:18 Last Admin: 06/04/23 18:53 Dose: 650 mg Amlodipine Besylate (Amlodipine Besylate 5 Mg Tab) [facility] Stop: 06/27/23 08:59 Last Admin: 06/07/23 08:29 Dose: 5 mg Aspirin (Aspirin 81 Mg Chew) 81 mg [facility] Stop: 06/26/23 17:29 Last Admin: 06/07/23 08:30 Dose: 81 mg Atorvastatin Calcium (Atorvastatin 40 Mg Tab) 40 mg PO [facility] Stop: 06/26/23 20:59 Last Admin: 06/06/23 21:42 Dose: 40 mg Cyanocobalamin (Cyanocobalamin (B-12) 500 Mcg Tablet) 1,000 mcg PO MoWeFr@0900 [facility] Stop: 06/29/23 08:59 Last Admin: 06/06/23 08:31 Dose: 1,000 mcg Diclofenac Sodium (Diclofenac Sod 1% Gel 100 Gm Tube) 2 gm EXT Q6H [facility]; Protocol Stop: 07/02/23 17:14 Last Admin: 06/07/23 10:51 Dose: 2 gm Digoxin (Digoxin 0.125 Mg Tab) 0.125 mg PO MoWeFr@0900 [facility] Stop: 07/01/23 08:59 Last Admin: 06/06/23 08:30 Dose: 0.125 mg Duloxetine HCl (Duloxetine Hcl 30 Mg Cap) 30 mg PO [facility] Stop: 06/27/23 08:59 Last Admin: 06/07/23 08:30 Dose: 30 mg Fluticasone Propionate (Fluticasone Propionate Na Spr 16 Gm Btl) 2 sprays NA DAILY [facility] Stop: 06/28/23 10:44 Last Admin: 06/07/23 08:30 Dose: 2 sprays Latanoprost (Latanoprost 0.005% Op Soln 2.5 Ml Btl) 1 drops OP HS [facility] Stop: 06/26/23 20:59 Last Admin: 06/06/23 21:40 Dose: 1 drops Lorazepam (Lorazepam 0.5 Mg Tab) 0.5 mg PO TID PRN PRN Reason: Anxiety Stop: 06/26/23 17:18 Last Admin: 05/29/23 01:09 Dose: 0.5 mg Menthol (Cough Drop (Sugar Free) Omega 24 Omega/1 Box) 1 omega BUCCAL PRN PRN PRN Reason: Sore Throat Stop: 07/01/23 19:54 Last Admin: 06/01/23 20:25 Dose: 1 omega Metoprolol Succinate (Metoprolol Succ 50mg Ext Rel Tab) 150 mg PO BID [facility] Stop: 06/26/23 20:59 Last Admin: 06/07/23 08:30 Dose: 150 mg Ondansetron HCl (Ondansetron Inj 2 Mg/Ml 2 Ml Vial) 4 mg IV Q6H PRN PRN Reason: Nausea And Vomiting Stop: 06/29/23 17:10 Last Admin: 05/30/23 17:20 Dose: 4 mg Pantoprazole Sodium (Pantoprazole 40 Mg Tab) [facility] [place]: 06/27/23 08:59 Last Admin: 06/07/23 08:30 Dose: 40 mg Polyethylene Glycol (Polyethylene (Miralax) 17 Gm Pack) 17 gm PO DAILY PRN PRN Reason: Constipation Stop: 06/26/23 17:18 Last Admin: 06/01/23 17:58 Dose: 17 gm Sodium Chloride (Sodium Chloride 0.65% Na Soln 45 Ml ([place])) 2 sprays NA BID PRN PRN Reason: Nasal Congestion Stop: 06/28/23 00:12 Last Admin: 05/29/23 08:57 Dose: 2 sprays Vitamin D (Cholecalciferol 25 Mcg (1000 Units) Tab) 25 mcg PO QAM [facility] Stop: 06/27/23 08:59 Last Admin: 06/07/23 08:30 Dose: 25 mcg Warfarin Sodium (Warfarin Sod 3 Mg Tab) 3 mg PO DAILY@1600 [facility] Stop: 07/04/23 15:59 Last Admin: 06/05/23 16:28 Dose: 3 mg
[2023-06-08 06:35] LABS: BUN Creatinine Ratio 27.8 (10-20); Calcium 9.5 mg/dl (8.6-10.3); Creatinine Clr Calc Pharmacy 12.5 ml/min; Est GFR (African American) 12.6 ml/min; Est GFR (Non-African American) 10.9 ml/min; Magnesium 2.1 mg/dl (1.7-2.4); Phosphorus 5.3 mg/dl (2.5-4.9); Potassium 4.1 mmol/L (3.5-5.1)
[2023-06-08 06:49] LABS: INR 4.9 (0.9-1.1); Prothrombin Time 48.5 Seconds (9.0-12.0)
--- NOTE | 2023-06-08 13:43 | Hospitalist Progress Note ---
Date of Service June 08, 2023 Assessment & Plan (1) Acute on chronic combined systolic and diastolic heart failure: Plan: 87 yo female with PMH of HTN, dyslipidemia, CAD s/p PCI LAD in 2004, atrial fibrillation, tachybradycardia syndrome s/p pacemaker, history of DVT, PE, on chronic anticoagulation with warfarin, chronic CHF, CKD III, MARTI and hypoxemia on 2 L oxygen at bedtime, chronic pernicious anemia, depression, anxiety, venous insufficiency, GERD, presented to ER with c/o SOB and increased palpations x 2 weeks. Has been off digoxin since 03/2023 and has only been taking lasix 3 days a week. She is being managed for the following: Acute on chronic combined systolic and diastolic heart failure: CXR on admission personally reviewed cardiomegaly with mild interstitial pul monary edema and a trace right pleural effusion. BNP: 982, Troponin: 18. No leukocytosis. Negative respiratory [employer] panel. TSH: 1.6 EKG: atrial fibrillation, rate 103, Repeat CXR- persistent pulmonary edema; mildly improved. Has been on furosemide 40 mg daily and spironolactone 12.5 mg daily since admission Digoxin restarted; to be given on 0.125 Tuesday and Tuesday at discharge Creatinine went up and Lasix and his prolactin has been on hold since 06/01/2025. Lisinopril is on hold too Appreciate cardiology input and recommendation She complains to weakness but denies any other significant symptoms Advised to drink more fluid Received 1 L of intravenous fluid yesterday and has not been eating or drinking much Creatinine remains stable and a little worse today Was advised to drink about 1.5 L of fluid in a day Digoxin on hold No signs and or symptoms of fluid overload Acute confusion Noted to be more confused last evening Was given intravenous fluid with 1 L of normal saline Confusion is much improved today Daughters wanted to have a CAT scan to make sure there is no stroke CT came back negative for any abnormality No more confusion but remains very weak and lethargic No more acute confusion but she remains very weak and lethargic Clinically much better denies any acute distress VINITA Chronic kidney disease stage III: Creatinine at baseline is 1.1, mildly elevated due to diuresis/Aldactone, monitor. Creatinine went up from 1.1-2.73 as of 06/04/2023 Her furosemide, spironolactone and lisinopril are on hold She was advised to drink more fluid Creatinine worsened with increasing potassium and decreasing sodium Secondary to VINITA Appreciate nephrology input and recommendation-has been getting half-normal saline with bicarb to improve potassium Will monitor PRP-creatinine has been improving potassium is normalized Kidney function has not been any better and we will monitor for next 24 to 48 hours Kidney function is slightly better Plan Other significant medical problems are as below; Fever: Had temp of 38C today (further temps are normal), WBC wnl. UA and CXR neg for infection. Blood and urine Cx pending. Pt w/ no cough or pain/burn w/ passing urine or headache or diarrhea. continue to monitor off antibiotic. No abd pain on exam. Hypomagnesemia: 1.6 at admission, repleted. Monitor and replete. Other chronic medical conditions: Continue with/resume home meds as and when able. Permanent atrial fibrillation: Anticoagulated with warfarin, INR 1.9, PT/INR in AM. increased warfarin dose to 3 mg daily, continue to titrate. CAD: Status post PCI LAD in 2004. Continue home aspirin, atorvastatin, metoprolol, losartan. Hypertension: Continue home losartan, metoprolol, amlodipine. Dyslipidemia: Continue home statin. History of DVT: Anticoagulated on warfarin, continue. Tachycardia-bradycardia syndrome: Status post pacemaker. Anemia of chronic disease: Hemoglobin at baseline, continue with home vitamin B12. MARTI: Intolerant to CPAP. Uses 2 L O2 at bedtime. Depression and anxiety: Continue duloxetine, lorazepam as needed DVT prophylaxis: Patient on warfarin. Full code Dispo: PT/OT-recommended rehab Awaiting rehab Please note the above document was generated using voice recognition software. It may contain grammatical, syntax or spelling errors. Any formal questions or concerns about the content, text or information contained within the body of this dictation should be directly addressed to the provider for clarification Discussed with the daughters in detail on 06/05/2023 Discussed with the daughters in detail on 06/07/2023 Admission and Anticipated Discharge Date Admission Date: May 27, 2023 Subjective 06/04/2023 The patient was seen and examined in telemetry unit She has been feeling better but remains very weak and lethargic Denies any cardiac and respiratory symptoms She was advised to drink more fluid 06/05/2023 The patient was seen and examined in telemetry unit She has been feeling little better today Was noted to be confused last evening in presence of the daughter She has loss of appetite and has not been eating or drinking enough Kidney function has gotten worse and nephrology will be consulted 06/06/2023 The patient was seen and examined in telemetry unit She denies any respiratory symptoms Does not have any chest pain and/or palpitation 06/07/2023 The patient was seen and examined in telemetry unit in presence of the daughters She has been any better but looks better Remains weak and lethargic and remains anorexic Denies any significant distress 06/08/2023 The patient was seen and examined in telemetry unit She has been out of bed on a chair and has been looking brighter today Feels better Denies any significant symptoms but remains weak and lethargic Review of Systems Review of Systems: All systems reviewed and are unremarkable except as noted below Physical Exam Physical Exam: Lying in bed without any acute distress Constitutional: well developed, well nourished, + ill appearing and average body habitus Eyes: PERRL, conjunctivae normal, anicteric sclerae ENMT: external ear and nose normal, oropharynx normal Neck: trachea midline, no thyromegaly Respiratory: no respiratory distress Auscultation: + diminished lung sounds and + crackles (Minimal bibasilar crackles) Cardiovascular: Rate/Rhythm: regular rate and regular rhythm Heart Sounds: normal S1 and normal S2; no murmur Extremities: no edema Gastrointestinal (Abdomen): Inspection/Auscultation: normal bowel sounds; abdomen not distended Percussion/Palpation: abdomen soft; abdomen nontender Musculoskeletal: No acute arthritis involving any of the joint Neurologic: normal touch/pain/proprioception and moves all extremities; no focal motor deficits Lymphatic: no cervical or axillary lymphadenopathy Results & Data Results & Data Vital Signs (Past 12 Hours) Vital Signs Temp Pulse Resp BP Pulse Ox O2 Del Method O2 Flow Rate 06/08/23 11:30 36.8 C 71 18 113/63 96 Nasal Cannula 2 06/08/23 10:06 59 L 06/08/23 08:49 Nasal Cannula 2 06/08/23 07:45 36.2 C L 71 20 120/63 96 Nasal Cannula 2 06/08/23 03:00 36.5 C 76 18 116/63 94 Nasal Cannula 2 Laboratory Results [facility] 06/08/23 05:33 Sodium 132 L Potassium 4.1 Chloride 95 L Carbon Dioxide 28 BUN 100 H Creatinine 3.60 H Glucose 101 H Calcium 9.5 Medications Administered Current Inpatient Medications Acetaminophen (Acetaminophen 325 Mg Tab) 650 mg PO Q4H PRN PRN Reason: Pain or Fever Stop: 06/26/23 17:18 Last Admin: 06/08/23 05:53 Dose: 650 mg Amlodipine Besylate (Amlodipine Besylate 5 Mg Tab) 5 mg PO [facility] Stop: 06/27/23 08:59 Last Admin: 06/08/23 10:12 Dose: 5 mg Aspirin (Aspirin 81 Mg Chew) 81 mg PO [facility] Stop: 06/26/23 17:29 Last Admin: 06/08/23 10:18 Dose: 81 mg Atorvastatin Calcium (Atorvastatin 40 Mg Tab) 40 mg PO [facility] Stop: 06/26/23 20:59 Last Admin: 06/07/23 21:22 Dose: 40 mg Cyanocobalamin (Cyanocobalamin (B-12) 500 Mcg Tablet) 1,000 mcg PO MoWeFr@0900 [facility] Stop: 06/29/23 08:59 Last Admin: 06/08/23 10:12 Dose: 1,000 mcg Diclofenac Sodium (Diclofenac Sod 1% Gel 100 Gm Tube) 2 gm EXT Q6H [facility]; Protocol Stop: 07/02/23 17:14 Last Admin: 06/08/23 12:19 Dose: 2 gm Digoxin (Digoxin 0.125 Mg Tab) 0.125 mg PO MoWeFr@0900 [facility] Stop: 07/01/23 08:59 Last Admin: 06/06/23 08:30 Dose: 0.125 mg Duloxetine HCl (Duloxetine Hcl 30 Mg Cap) 30 mg PO [facility] Stop: 06/27/23 08:59 Last Admin: 06/08/23 10:12 Dose: 30 mg Fluticasone Propionate (Fluticasone Propionate Na Spr 16 Gm Btl) 2 sprays NA DAILY [facility] Stop: 06/28/23 10:44 Last Admin: 06/08/23 10:13 Dose: 2 sprays Latanoprost (Latanoprost 0.005% Op Soln 2.5 Ml Btl) 1 drops OP [facility] Stop: 06/26/23 20:59 Last Admin: 06/07/23 21:23 Dose: 1 drops Lorazepam (Lorazepam 0.5 Mg Tab) 0.5 mg PO TID PRN PRN Reason: Anxiety Stop: 06/26/23 17:18 Last Admin: 05/29/23 01:09 Dose: 0.5 mg Menthol (Cough Drop (Sugar Free) Omega 24 Omega/1 Box) 1 omega BUCCAL PRN PRN PRN Reason: Sore Throat Stop: 07/01/23 19:54 Last Admin: 06/07/23 18:53 Dose: 1 omega Metoprolol Succinate (Metoprolol Succ 50mg Ext Rel Tab) 150 mg PO BID [facility] Stop: 06/26/23 20:59 Last Admin: 06/08/23 10:13 Dose: Not Given Ondansetron HCl (Ondansetron Inj 2 Mg/Ml 2 Ml Vial) 4 mg IV Q6H PRN PRN Reason: Nausea And Vomiting Stop: 06/29/23 17:10 Last Admin: 05/30/23 17:20 Dose: 4 mg Pantoprazole Sodium (Pantoprazole 40 Mg Tab) 40 mg PO [facility] Stop: 06/27/23 08:59 Last Admin: 06/08/23 10:12 Dose: 40 mg Polyethylene Glycol (Polyethylene (Miralax) 17 Gm Pack) 17 gm PO DAILY PRN PRN Reason: Constipation Stop: 06/26/23 17:18 Last Admin: 06/01/23 17:58 Dose: 17 gm Sodium Chloride (Sodium Chloride 0.65% Na Soln 45 Ml ([place])) 2 sprays NA BID PRN PRN Reason: Nasal Congestion Stop: 06/28/23 00:12 Last Admin: 05/29/23 08:57 Dose: 2 sprays Vitamin D (Cholecalciferol 25 Mcg (1000 Units) Tab) 25 [facility]cg [facility] Stop: 06/27/23 08:59 Last Admin: 06/08/23 10:12 Dose: 25 mcg Warfarin Sodium (Warfarin Sod 3 Mg Tab) 3 mg PO DAILY@1600 [facility] Stop: 07/04/23 15:59 Last Admin: 06/05/23 16:28 Dose: 3 mg
--- NOTE | 2023-06-08 14:35 | Nephrology Progress Note ---
Date of Service June 08, 2023 Assessment & Plan (1) VINITA (acute kidney injury): Plan: Clear sustained rise in Creat 05/30-06/05, and plateau'd x 2 days, then today a small improvement. Such sustained rise while inpt setting is most consistent with ATN. her urine also looks muddy brown type. her ECHO and CXR is consistent with fluid overload. However she has not really ate or drank much for many days. Despite iv fluids and holding diuretics creat has continued to go up which is concerning though plateau and now small improvement is slightlyl inecouraging. No dialysis today but cannot rule out need <>supratherapeutic INR noted na low moderately and labile and k mika with VINITA but improved /normalized on aggressive medical therapy >last doses of losartan, aldactone were 06/02; last lasix dose 05/31 >>has had adequate resuscitation > she is 1.7 L positive (approximate since I/O incomplete) 06/02-06/05 Avoid Contrast agents, NSAIDS or any renal toxic drugs. -digoxin dose adjusted for worsening renal function 06/05 not oliguric; CXR 06/05 unchanged versus 06/02 and w/ mild pulmonary edema lokelma and low K diet now held >> K has been ok hopeful that she will improve further >> some R basilar crackles >> but would cont to hold diuretics; recommend inspirometer; encourage po intake/ambulation (2) Acute on chronic combined systolic and diastolic heart failure: Plan: ECHO reviewed. cardiology signed off; monitor CXR/02 needs Plan Case complexity high. Admission and Anticipated Discharge Date Admission Date: May 27, 2023 Subjective seen on afternoon rounds; 2 daughters from [place] at bedside. pt eating better w/ them here. was also OOB in chair for 6-7hrs today. no worse sob. no worse edema. no chest pain , palpitations. still minimal appetite. getting a bedsore per daughters Review of Systems 2 Review of Systems: All systems reviewed & are unremarkable except as noted in Subjective Physical Exam 2 Constitutional: well developed, well nourished and + frail appearing (sitting in bed on 2L 02nc) Eyes: EOM intact bilaterally ENMT: Ears: no external ear abnormality Nose: no external nose abnormality Mouth: + dry oral mucous membranes Neck: no nuchal rigidity Respiratory: normal respiratory effort Auscultation: + diminished lung sounds and + crackles (R basilar) Cardiovascular: Rate/Rhythm: regular rate and regular rhythm Extremities: + edema (trace BLE max) Gastrointestinal (Abdomen): Inspection/Auscultation: normal bowel sounds P ercussion/Palpation: abdomen soft; abdomen nontender Musculoskeletal: Extremities: strength 5/5 throughout Skin: no rashes, warm and dry Neurologic: fluent speech, no tremor Psychiatric: Orientation: alert and oriented x 3 Results & Data Vital Signs (Past 12 Hours) Vital Signs Temp Pulse Resp BP Pulse Ox O2 Del Method O2 Flow Rate 06/08/23 11:30 36.8 C 71 18 113/63 96 Nasal Cannula 2 06/08/23 10:06 59 L 06/08/23 08:49 Nasal Cannula 2 06/08/23 07:45 36.2 C L 71 20 120/63 96 Nasal Cannula 2 06/08/23 03:00 36.5 C 76 18 116/63 94 Nasal Cannula 2 Laboratory Results 06/06/23 06:48 06/08/23 05:33
[2023-06-09 06:22] LABS: Hematocrit (blood only) 24.9 % (37.0-47.0); Hemoglobin 9.1 g/dl (12.0-16.0); Mean Corpuscular Hemoglobin 34.3 pg (25.0-34.0); Mean Corpuscular Hgb Conc 36.5 g/dL (32.0-36.0); Mean Platelet Volume 10.4 fL (9.4-12.4); Platelet Count 191 K/uL (130-400); RDW Coefficient of Variation 20.9 % (11.5-14.5); RDW Standard Deviation 55.2 fL (36.4-46.3); Red Blood Count 2.65 M/uL (4.20-5.40); White Blood Count 10.39 K/ul (4.8-10.8)
[2023-06-09 06:35] LABS: BUN Creatinine Ratio 29.3 (10-20); Calcium 9.4 mg/dl (8.6-10.3); Creatinine Clr Calc Pharmacy 12.9 ml/min; Est GFR (African American) 13.2 ml/min; Est GFR (Non-African American) 11.4 ml/min; Potassium 4.1 mmol/L (3.5-5.1)
[2023-06-09 06:51] LABS: INR 4.3 (0.9-1.1); Prothrombin Time 42.5 Seconds (9.0-12.0)
[2023-06-09 07:25] LABS: Agglutinated RBC 1+
[2023-06-09 07:27] LABS: ALC (manual) 0.83 K/uL (1.2-3.4); ANC (manual) 8.62 K/uL (1.4-6.5); Basophils % (manual) 1 %; Eosinophils # (manual) 0.31 K/uL (0-0.50); Eosinophils % (manual) 3 %; Lymphocytes # (manual) 0.52 K/uL (1.2-3.4); Lymphocytes % (manual) 5 %; Monocytes # (manual) 0.52 K/uL (0.11-0.59); Monocytes % (manual) 5 %; Neutrophils # (manual) 8.62 K/uL (1.40-6.50); Neutrophils % (manual) 83 %; Plasma Cells # (manual) 0.31 K/uL (0-0); Plasma Cells % (manual) 3 %
--- NOTE | 2023-06-09 09:41 | Nephrology Progress Note ---
Date of Service June 09, 2023 Assessment & Plan Admission and Anticipated Discharge Date Admission Date: May 27, 2023 Subjective Assessment & Plan (1) VINITA (acute kidney injury): Plan: Clear sustained rise in Creat 4/-06/05, and plateau'd x 2 days, then last few days starting with small improvement. Such sustained rise while inpt setting is most consistent with ATN. her urine also looks muddy brown type. her ECHO and CXR is consistent with fluid overload. However she has not really ate or drank much for many days. Despite iv fluids and holding diuretics creat continued to go up which is concerning though plateau and now small improvement is slightly encouraging. No dialysis today but cannot rule out need <>supratherapeutic INR noted last doses of losartan, aldactone were 4/; last lasix dose 05/31 has had adequate fluid resuscitation for few days Avoid Contrast agents, NSAIDS or any renal toxic drugs. Digoxin dose adjusted for worsening renal function 06/05 not oliguric; CXR 06/05 unchanged versus 06/02 and w/ mild pulmonary edema No Diuretics or iv fluid for tdoay (2) Acute on chronic combined systolic and diastolic heart failure: Plan: ECHO reviewed. cardiology signed off; monitor CXR/02 needs Subjective Says she feels weak but trying to eat more. Making urine ?? Amount. Labs getting better very slowly. Review of Systems Review of Systems: All systems reviewed & are unremarkable except as noted in Subjective Physical Exam Constitutional: well developed, well nourished and + frail appearing (sitting in bed on 2L 02nc) Eyes: EOM intact bilaterally ENMT: Ears: no external ear abnormality Nose: no external nose abnormality Mouth: + dry oral mucous membranes Neck: no nuchal rigidity Respiratory: normal respiratory effort Auscultation: + diminished lung sounds and + crackles (R basilar) Cardiovascular: Rate/Rhythm: regular rate and regular rhythm Extremities: + edema (trace BLE max) Gastrointestinal (Abdomen): Inspection/Auscultation: normal bowel sounds Percussion/Palpation: abdomen soft; abdomen nontender Musculoskeletal: Extremities: strength 5/5 throughout Skin: no rashes, warm and dry Neurologic: fluent speech, no tremor Psychiatric: Orientation: alert and oriented x 3 Results & Data Vital Signs (Past 12 Hours) Vital Signs Temp Pulse Pulse Resp BP BP Pulse Ox 06/09/23 08:12 76 06/09/23 07:57 36.6 C 72 18 125/69 97 06/09/23 02:59 36.4 C L 72 18 126/76 94 06/08/23 22:48 36.2 C L 70 16 124/71 97 O2 Del Method O2 Flow Rate 06/09/23 08:12 06/09/23 07:57 Nasal Cannula 2 06/09/23 02:59 Nasal Cannula 2 06/08/23 22:48 Nasal Cannula 2
--- NOTE | 2023-06-09 15:15 | Hospitalist Progress Note ---
Date of Service June 09, 2023 Assessment & Plan (1) Acute on chronic combined systolic and diastolic heart failure: Plan: 87 yo female with PMH of HTN, dyslipidemia, CAD s/p PCI LAD in 2004, atrial fibrillation, tachybradycardia syndrome s/p pacemaker, history of DVT, PE, on chronic anticoagulation with warfarin, chronic CHF, CKD III, MARTI and hypoxemia on 2 L oxygen at bedtime, chronic pernicious anemia, depression, anxiety, venous insufficiency, GERD, presented to ER with c/o SOB and increased palpations x 2 weeks. Has been off digoxin since 03/2023 and has only been taking lasix 3 days a week. She is being managed for the following: Acute on chronic combined systolic and diastolic heart failure: CXR on admission personally reviewed cardiomegaly with mild interstitial pul monary edema and a trace right pleural effusion. BNP: 982, Troponin: 18. No leukocytosis. Negative respiratory [employer] panel. TSH: 1.6 EKG: atrial fibrillation, rate 103, Repeat CXR- persistent pulmonary edema; mildly improved. Has been on furosemide 40 mg daily and spironolactone 12.5 mg daily since admission Digoxin restarted; to be given on 0.125 Tuesday and Tuesday at discharge Creatinine went up and Lasix and his prolactin has been on hold since 06/01/2025. Lisinopril is on hold too Appreciate cardiology input and recommendation She complains to weakness but denies any other significant symptoms Advised to drink more fluid Received 1 L of intravenous fluid yesterday and has not been eating or drinking much Creatinine remains stable and a little worse today Was advised to drink about 1.5 L of fluid in a day Digoxin on hold No signs and or symptoms of fluid overload Will get a digoxin level tomorrow Will get PT and OT evaluation Acute confusion Noted to be more confused last evening Was given intravenous fluid with 1 L of normal saline Confusion is much improved today Daughters wanted to have a CAT scan to make sure there is no stroke CT came back negative for any abnormality No more confusion but remains very weak and lethargic No more acute confusion but she remains very weak and lethargic Clinically much better denies any acute distress VINITA Chronic kidney disease stage III: Creatinine at baseline is 1.1, mildly elevated due to diuresis/Aldactone, monitor. Creatinine went up from 1.1-2.73 as of 06/04/2023 Her furosemide, spironolactone and lisinopril are on hold She was advised to drink more fluid Creatinine worsened with increasing potassium and decreasing sodium Secondary to VINITA Appreciate nephrology input and recommendation-has been getting half-normal saline with bicarb to improve potassium Will monitor PRP-creatinine has been improving potassium is normalized Kidney function has not been any better and we will monitor for next 24 to 48 hours Creatinine has been improving a little but BUN remains high Plan Other significant medical problems are as below; Fever: Had temp of 38C today (further temps are normal), WBC wnl. UA and CXR neg for infection. Blood and urine Cx pending. Pt w/ no cough or pain/burn w/ passing urine or headache or diarrhea. continue to monitor off antibiotic. No abd pain on exam. Hypomagnesemia: 1.6 at admission, repleted. Monitor and replete. Other chronic medical conditions: Continue with/resume home meds as and when able. Permanent atrial fibrillation: Anticoagulated with warfarin, INR 1.9, PT/INR in AM. increased warfarin dose to 3 mg daily, continue to titrate. CAD: Status post PCI LAD in 2004. Continue home aspirin, atorvastatin, metoprolol, losartan. Hypertension: Continue home losartan, metoprolol, amlodipine. Dyslipidemia: Continue home statin. History of DVT: Anticoagulated on warfarin, continue. Tachycardia-bradycardia syndrome: Status post pacemaker. Anemia of chronic disease: Hemoglobin at baseline, continue with home vitamin B12. MARTI: Intolerant to CPAP. Uses 2 L O2 at bedtime. Depression and anxiety: Continue duloxetine, lorazepam as needed DVT prophylaxis: Patient on warfarin. INR remains elevated in spite of being on hold since seventh of this month Likely secondary to renal failure and patient not been eating and drinking well No evidence of any bleeding Will recheck level tomorrow Full code Dispo: PT/OT-recommended rehab Awaiting rehab Please note the above document was generated using voice recognition software. It may contain grammatical, syntax or spelling errors. Any formal questions or concerns about the content, text or information contained within the body of this dictation should be directly addressed to the provider for clarification Discussed with the daughters in detail on 06/05/2023 Discussed with the daughters in detail on 06/07/2023 Admission and Anticipated Discharge Date Admission Date: May 27, 2023 Subjective 06/04/2023 The patient was seen and examined in telemetry unit She has been feeling better but remains very weak and lethargic Denies any cardiac and respiratory symptoms She was advised to drink more fluid 06/05/2023 The patient was seen and examined in telemetry unit She has been feeling little better today Was noted to be confused last evening in presence of the daughter She has loss of appetite and has not been eating or drinking enough Kidney function has gotten worse and nephrology will be consulted 06/06/2023 The patient was seen and examined in telemetry unit She denies any respiratory symptoms Does not have any chest pain and/or palpitation 06/07/2023 The patient was seen and examined in telemetry unit in presence of the daughters She has been any better but looks better Remains weak and lethargic and remains anorexic Denies any significant distress 06/08/2023 The patient was seen and examined in telemetry unit She has been out of bed on a chair and has been looking brighter today Feels better Denies any significant symptoms but remains weak and lethargic 06/09/2023 The patient was seen and examined in telemetry unit She has been weak but has been feeling better otherwise Denies any chest pain, palpitation or shortness of breath Appetite remains poor Review of Systems Review of Systems: All systems reviewed and are unremarkable except as noted below Physical Exam Physical Exam: Lying in bed without any acute distress Constitutional: well developed, well nourished, + ill appearing and average body habitus Eyes: PERRL, conjunctivae normal, anicteric sclerae ENMT: external ear and nose normal, oropharynx normal Neck: trachea midline, no thyromegaly Respiratory: no respiratory distress Auscultation: + diminished lung sounds and + crackles (Minimal bibasilar crackles) Cardiovascular: Rate/Rhythm: regular rate and regular rhythm Heart Sounds: normal S1 and normal S2; no murmur Extremities: no edema Gastrointestinal (Abdomen): Inspection/Auscultation: normal bowel sounds; abdomen not distended Percussion/Palpation: abdomen soft; abdomen nontender Neurologic: normal touch/pain/proprioception and moves all extremities; no focal motor deficits Lymphatic: no cervical or axillary lymphadenopathy Results & Data Results & Data Vital Signs (Past 12 Hours) Vital Signs Temp Pulse Pulse Resp BP BP Pulse Ox 06/09/23 13:55 94 06/09/23 11:36 37 C 70 18 114/65 92 06/09/23 10:54 06/09/23 08:12 76 06/09/23 07:57 36.6 C 72 18 125/69 97 O2 Del Method O2 Flow Rate 06/09/23 13:55 06/09/23 11:36 Room Air 06/09/23 10:54 Room Air 06/09/23 08:12 06/09/23 07:57 Nasal Cannula 2 Laboratory Results Short CBC 06/09/23 Range/Units 05:35 WBC 10.39 (4.8-10.8) K/ul Hgb 9.1 L (12.0-16.0) g/dl Hct 24.9 L (37.0-47.0) % Plt Count 191 (130-400) K/uL BMP 06/09/23 05:35 Sodium 132 L Potassium 4.1 Chloride 97 L Carbon Dioxide 27 BUN 102 H Creatinine 3.48 H Glucose 97 Calcium 9.4 Medications Administered Current Inpatient Medications Acetaminophen (Acetaminophen 325 Mg Tab) 650 mg PO Q4H PRN PRN Reason: Pain or Fever Stop: 06/26/23 17:18 Last Admin: 06/09/23 09:35 Dose: 650 mg Amlodipine Besylate (Amlodipine Besylate 5 Mg Tab) [facility] [place] Stop: 06/27/23 08:59 Last Admin: 06/09/23 09:35 Dose: 5 mg Aspirin (Aspirin 81 Mg Chew) 81 mg [facility] [place] Stop: 06/26/23 17:29 Last Admin: 06/09/23 09:47 Dose: 81 mg Atorvastatin Calcium (Atorvastatin 40 Mg Tab) 40 mg PO [facility] Stop: 06/26/23 20:59 Last Admin: 06/08/23 20:17 Dose: 40 mg Cyanocobalamin (Cyanocobalamin (B-12) 500 Mcg Tablet) 1,000 mcg PO [id number]@0900 [facility] Stop: 06/29/23 08:59 Last Admin: 06/08/23 10:12 Dose: 1,000 mcg Diclofenac Sodium (Diclofenac Sod 1% Gel 100 Gm Tube) 2 gm EXT Q6H [facility]; Protocol Stop: 07/02/23 17:14 Last Admin: 06/09/23 12:25 Dose: 2 gm Digoxin (Digoxin 0.125 Mg Tab) 0.125 mg PO [email or web address]@0900 [facility] Stop: 07/01/23 08:59 Last Admin: 06/06/23 08:30 Dose: 0.125 mg Duloxetine HCl (Duloxetine Hcl 30 Mg Cap) 30 mg PO QAM [facility] Stop: 06/27/23 08:59 Last Admin: 06/09/23 09:35 Dose: 30 mg Fluticasone Propionate (Fluticasone Propionate Na Spr 16 Gm Btl) 2 sprays NA DAILY [facility] Stop: 06/28/23 10:44 Last Admin: 06/09/23 09:36 Dose: 2 sprays Latanoprost (Latanoprost 0.005% Op Soln 2.5 Ml Btl) 1 drops OP HS [facility] Stop: 06/26/23 20:59 Last Admin: 06/08/23 20:17 Dose: 1 drops Lorazepam (Lorazepam 0.5 Mg Tab) 0.5 mg PO TID PRN PRN Reason: Anxiety Stop: 06/26/23 17:18 Last Admin: 05/29/23 01:09 Dose: 0.5 mg Menthol (Cough Drop (Sugar Free) Omega 24 Omega/1 Box) 1 omega BUCCAL PRN PRN PRN Reason: Sore Throat Stop: 07/01/23 19:54 Last Admin: 06/07/23 18:53 Dose: 1 omega Metoprolol Succinate (Metoprolol Succ 50mg Ext Rel Tab) 150 mg PO BID [facility] Stop: 06/26/23 20:59 Last Admin: 06/09/23 09:35 Dose: 150 mg Ondansetron HCl (Ondansetron Inj 2 Mg/Ml 2 Ml Vial) 4 mg IV Q6H PRN PRN Reason: Nausea And Vomiting Stop: 06/29/23 17:10 Last Admin: 05/30/23 17:20 Dose: 4 mg Pantoprazole Sodium (Pantoprazole 40 Mg Tab) 40 mg PO QAM [facility] Stop: 06/27/23 08:59 Last Admin: 06/09/23 09:35 Dose: 40 mg Polyethylene Glycol (Polyethylene (Miralax) 17 Gm Pack) 17 gm PO DAILY PRN PRN Reason: Constipation Stop: 06/26/23 17:18 Last Admin: 06/01/23 17:58 Dose: 17 gm Sodium Chloride (Sodium Chloride 0.65% Na Soln 45 Ml ([place])) 2 sprays NA BID PRN PRN Reason: Nasal Congestion Stop: 06/28/23 00:12 Last Admin: 05/29/23 08:57 Dose: 2 sprays Vitamin D (Cholecalciferol 25 Mcg (1000 Units) Tab) 25 mcg PO QAM [facility] Stop: 06/27/23 08:59 Last Admin: 06/09/23 09:36 Dose: 25 mcg Warfarin Sodium (Warfarin Sod 3 Mg Tab) 3 mg PO DAILY@1600 [facility] Stop: 07/04/23 15:59 Last Admin: 06/05/23 16:28 Dose: 3 mg
[2023-06-10 06:23] LABS: BUN Creatinine Ratio 31.3 (10-20); Calcium 9.5 mg/dl (8.6-10.3); Creatinine Clr Calc Pharmacy 12.8 ml/min; Est GFR (Non-African American) 11.2 ml/min; Magnesium 2.2 mg/dl (1.7-2.4); Phosphorus 6.2 mg/dl (2.5-4.9); Potassium 4.5 mmol/L (3.5-5.1)
[2023-06-10 06:57] LABS: INR 3.8 (0.9-1.1); Prothrombin Time 38.5 Seconds (9.0-12.0)
--- NOTE | 2023-06-10 08:54 | Nephrology Progress Note ---
Date of Service June 10, 2023 Assessment & Plan Admission and Anticipated Discharge Date Admission Date: May 27, 2023 Subjective Assessment & Plan (1) VINITA (acute kidney injury): Plan: Clear sustained rise in Creat 4/2-48, and plateau'd x 4 days, then last few days starting with small improvement. Such sustained rise while inpt setting is most consistent with ATN. her urine also looks muddy brown type. her ECHO and CXR is consistent with fluid overload. However she has not really ate or drank much for many days. Despite iv fluids and holding diuretics creat continued to go up which is concerning though plateau and now small improvement is slightly encouraging. No dialysis today but cannot rule out need. last doses of losartan, aldactone were 4/5; last lasix dose 4/3 has had adequate fluid resuscitation for few days Avoid Contrast agents, NSAIDS or any renal toxic drugs. CXR shows pulm edema. Will do lasix 40 iv x 1 today to see if it helps with raising urine output. has been difficult to Assess her fluid status. Also at this age ATN does not always recover fast enough to our liking. (2) Acute on chronic combined systolic and diastolic heart failure: Plan: ECHO reviewed. cardiology signed off; monitor CXR/02 needs Subjective Says she feels weak but trying to eat more. Making urine but low Amount. labs have stopped getting better. BUN is still rising. Review of Systems Review of Systems: All systems reviewed & are unremarkable except as noted in Subjective Physical Exam Constitutional: well developed, well nourished and + frail appearing (sitting in bed on 2L 02nc) Eyes: EOM intact bilaterally ENMT: Ears: no external ear abnormality Nose: no external nose abnormality Mouth: + dry oral mucous membranes Neck: no nuchal rigidity Respiratory: normal respiratory effort Auscultation: + diminished lung sounds and + crackles (R basilar) Cardiovascular: Rate/Rhythm: regular rate and regular rhythm Extremities: + edema (trace BLE max) Gastrointestinal (Abdomen): Inspection/Auscultation: normal bowel sounds Percussion/Palpation: abdomen soft; abdomen nontender Musculoskeletal: Extremities: strength 5/5 throughout Skin: no rashes, warm and dry Neurologic: fluent speech, no tremor Psychiatric: Orientation: alert and oriented x 3 Results & Data Vital Signs (Past 12 Hours) Vital Signs Temp Pulse Pulse Resp BP Pulse Ox O2 Del Method 06/10/23 07:45 36.7 C 69 18 110/74 98 Nasal Cannula 06/10/23 04:26 36.6 C 77 16 126/70 96 Nasal Cannula 06/09/23 23:02 36.5 C 73 18 119/66 93 Nasal Cannula 06/09/23 22:00 83 O2 Flow Rate 06/10/23 07:45 2.5 06/10/23 04:26 2.5 06/09/23 23:02 2.5 06/09/23 22:00
[2023-06-10] MEDS: FUROSEMIDE 40 MG/4 ML VIAL IV ONE (09:22)
--- NOTE | 2023-06-10 16:21 | Hospitalist Progress Note ---
Date of Service June 10, 2023 Assessment & Plan (1) Acute on chronic combined systolic and diastolic heart failure: Plan: 87 yo female with PMH of HTN, dyslipidemia, CAD s/p PCI LAD in 2004, atrial fibrillation, tachybradycardia syndrome s/p pacemaker, history of DVT, PE, on chronic anticoagulation with warfarin, chronic CHF, CKD III, MARTI and hypoxemia on 2 L oxygen at bedtime, chronic pernicious anemia, depression, anxiety, venous insufficiency, GERD, presented to ER with c/o SOB and increased palpations x 2 weeks. Has been off digoxin since 03/2023 and has only been taking lasix 3 days a week. She is being managed for the following: Acute on chronic combined systolic and diastolic heart failure: CXR on admission personally reviewed cardiomegaly with mild interstitial pul monary edema and a trace right pleural effusion. BNP: 982, Troponin: 18. No leukocytosis. Negative respiratory [employer] panel. TSH: 1.6 EKG: atrial fibrillation, rate 103, Repeat CXR- persistent pulmonary edema; mildly improved. Has been on furosemide 40 mg daily and spironolactone 12.5 mg daily since admission Digoxin restarted; to be given on 0.125 Tuesday and Tuesday at discharge Creatinine went up and Lasix and his prolactin has been on hold since 06/01/2025. Lisinopril is on hold too Appreciate cardiology input and recommendation She complains to weakness but denies any other significant symptoms Advised to drink more fluid Received 1 L of intravenous fluid yesterday and has not been eating or drinking much Creatinine remains stable and a little worse today Was advised to drink about 1.5 L of fluid in a day Digoxin on hold No signs and or symptoms of fluid overload Will get a digoxin level tomorrow Will get PT and OT evaluation-has been doing reasonably good Acute confusion Noted to be more confused last evening Was given intravenous fluid with 1 L of normal saline Confusion is much improved today Daughters wanted to have a CAT scan to make sure there is no stroke CT came back negative for any abnormality No more confusion but remains very weak and lethargic No more acute confusion but she remains very weak and lethargic Clinically much better denies any acute distress VINITA Chronic kidney disease stage III: Creatinine at baseline is 1.1, mildly elevated due to diuresis/Aldactone, monitor. Creatinine went up from 1.1-2.73 as of 06/04/2023 Her furosemide, spironolactone and lisinopril are on hold She was advised to drink more fluid Creatinine worsened with increasing potassium and decreasing sodium Secondary to VINITA Appreciate nephrology input and recommendation-has been getting half-normal saline with bicarb to improve potassium Will monitor PRP-creatinine has been improving potassium is normalized BUN and creatinine has been creeping up Will get 40 of Lasix intravenously to decrease possible pulmonary edema Monitor PRP Plan Other significant medical problems are as below; Fever: Had temp of 38C today (further temps are normal), WBC wnl. UA and CXR neg for infection. Blood and urine Cx pending. Pt w/ no cough or pain/burn w/ passing urine or headache or diarrhea. continue to monitor off antibiotic. No abd pain on exam. Hypomagnesemia: 1.6 at admission, repleted. Monitor and replete. Other chronic medical conditions: Continue with/resume home meds as and when able. Permanent atrial fibrillation: Anticoagulated with warfarin, INR 1.9, PT/INR in AM. increased warfarin dose to 3 mg daily, continue to titrate. CAD: Status post PCI LAD in 2004. Continue home aspirin, atorvastatin, metoprolol, losartan. Hypertension: Continue home losartan, metoprolol, amlodipine. Dyslipidemia: Continue home statin. History of DVT: Anticoagulated on warfarin, continue. Tachycardia-bradycardia syndrome: Status post pacemaker. Anemia of chronic disease: Hemoglobin at baseline, continue with home vitamin B12. MARTI: Intolerant to CPAP. Uses 2 L O2 at bedtime. Depression and anxiety: Continue duloxetine, lorazepam as needed DVT prophylaxis: Patient on warfarin. INR remains elevated in spite of being on hold since seventh of this month Likely secondary to renal failure and patient not been eating and drinking well No evidence of any bleeding Will recheck level tomorrow Full code Dispo: PT/OT-recommended rehab Awaiting rehab Please note the above document was generated using voice recognition software. It may contain grammatical, syntax or spelling errors. Any formal questions or concerns about the content, text or information contained within the body of this dictation should be directly addressed to the provider for clarification Discussed with the daughters in detail on 06/05/2023 Discussed with the daughters in detail on 06/07/2023 and again on 06/10/2023 Admission and Anticipated Discharge Date Admission Date: May 27, 2023 Subjective 06/04/2023 The patient was seen and examined in telemetry unit She has been feeling better but remains very weak and lethargic Denies any cardiac and respiratory symptoms She was advised to drink more fluid 06/05/2023 The patient was seen and examined in telemetry unit She has been feeling little better today Was noted to be confused last evening in presence of the daughter She has loss of appetite and has not been eating or drinking enough Kidney function has gotten worse and nephrology will be consulted 06/06/2023 The patient was seen and examined in telemetry unit She denies any respiratory symptoms Does not have any chest pain and/or palpitation 06/07/2023 The patient was seen and examined in telemetry unit in presence of the daughters She has been any better but looks better Remains weak and lethargic and remains anorexic Denies any significant distress 06/08/2023 The patient was seen and examined in telemetry unit She has been out of bed on a chair and has been looking brighter today Feels better Denies any significant symptoms but remains weak and lethargic 06/09/2023 The patient was seen and examined in telemetry unit She has been weak but has been feeling better otherwise Denies any chest pain, palpitation or shortness of breath Appetite remains poor 06/10/2023 The patient was seen and examined in telemetry unit She has been feeling much better Has been eating and drinking little more and has had physical therapy Renal function has deteriorated though Review of Systems Review of Systems: All systems reviewed and are unremarkable except as noted below Physical Exam Physical Exam: Lying in bed without any acute distress Constitutional: well developed, well nourished, + ill appearing and average body habitus Eyes: PERRL, conjunctivae normal, anicteric sclerae ENMT: external ear and nose normal, oropharynx normal Neck: trachea midline, no thyromegaly Respiratory: no respiratory distress Auscultation: + diminished lung sounds and + crackles (Minimal bibasilar crackles) Cardiovascular: Rate/Rhythm: regular rate and regular rhythm Heart Sounds: normal S1 and normal S2; no murmur Extremities: no edema Gastrointestinal (Abdomen): Inspection/Auscultation: normal bowel sounds; abdomen not distended Percussion/Palpation: abdomen soft; abdomen nontender Neurologic: normal touch/pain/proprioception and moves all extremities; no focal motor deficits Lymphatic: no cervical or axillary lymphadenopathy Results & Data Results & Data Vital Signs (Past 12 Hours) Vital Signs Temp Pulse Pulse Resp BP Pulse Ox O2 Del Method 06/10/23 15:00 36.8 C 87 18 130/56 L 96 Nasal Cannula 06/10/23 11:00 36.7 C 78 16 120/60 97 Nasal Cannula 06/10/23 09:56 72 06/10/23 07:45 36.7 C 69 18 110/74 98 Nasal Cannula 06/10/23 07:00 Room Air 06/10/23 04:26 36.6 C 77 16 126/70 96 Nasal Cannula O2 Flow Rate 06/10/23 15:00 2 06/10/23 11:00 2 06/10/23 09:56 06/10/23 07:45 2.5 06/10/23 07:00 06/10/23 04:26 2.5 Laboratory Results [facility] 06/10/23 05:32 Sodium 131 L Potassium 4.5 Chloride 96 L Carbon Dioxide 26 BUN 110 H Creatinine 3.52 H Glucose 91 Calcium 9.5 Medications Administered Current Inpatient Medications Acetaminophen (Acetaminophen 325 Mg Tab) 650 mg PO Q4H PRN PRN Reason: Pain or Fever Stop: 06/26/23 17:18 Last Admin: 06/10/23 08:39 Dose: 650 mg Amlodipine Besylate (Amlodipine Besylate 5 Mg Tab) [facility] [place]: 06/27/23 08:59 Last Admin: 06/10/23 08:42 Dose: 5 mg Aspirin (Aspirin 81 Mg Chew) 81 mg PO [facility] Stop: 06/26/23 17:29 Last Admin: 06/10/23 08:46 Dose: 81 mg Atorvastatin Calcium (Atorvastatin 40 Mg Tab) 40 mg PO [facility] Stop: 06/26/23 20:59 Last Admin: 06/09/23 20:55 Dose: 40 mg Cyanocobalamin (Cyanocobalamin (B-12) 500 Mcg Tablet) 1,000 mcg PO MoWeFr@0900 [facility] Stop: 06/29/23 08:59 Last Admin: 06/10/23 08:42 Dose: 1,000 mcg Diclofenac Sodium (Diclofenac Sod 1% Gel 100 Gm Tube) 2 gm EXT Q6H [facility]; Protocol Stop: 07/02/23 17:14 Last Admin: 06/10/23 11:03 Dose: 2 gm Digoxin (Digoxin 0.125 Mg Tab) 0.125 mg PO MoWeFr@0900 [facility] Stop: 07/01/23 08:59 Last Admin: 06/06/23 08:30 Dose: 0.125 mg Duloxetine HCl (Duloxetine Hcl 30 Mg Cap) 30 mg PO QAM [facility] Stop: 06/27/23 08:59 Last Admin: 06/10/23 08:41 Dose: 30 mg Fluticasone Propionate (Fluticasone Propionate Na Spr 16 Gm Btl) 2 sprays NA DAILY [facility] Stop: 06/28/23 10:44 Last Admin: 06/10/23 08:43 Dose: 2 sprays Latanoprost (Latanoprost 0.005% Op Soln 2.5 Ml Btl) 1 drops OP HS [facility] Stop: 06/26/23 20:59 Last Admin: 06/09/23 20:56 Dose: 1 drops Lorazepam (Lorazepam 0.5 Mg Tab) 0.5 mg PO TID PRN PRN Reason: Anxiety Stop: 06/26/23 17:18 Last Admin: 05/29/23 01:09 Dose: 0.5 mg Menthol (Cough Drop (Sugar Free) Omega 24 Omega/1 Box) 1 omega BUCCAL PRN PRN PRN Reason: Sore Throat Stop: 07/01/23 19:54 Last Admin: 06/07/23 18:53 Dose: 1 omega Metoprolol Succinate (Metoprolol Succ 50mg Ext Rel Tab) 150 mg PO BID [facility] Stop: 06/26/23 20:59 Last Admin: 06/10/23 08:40 Dose: 150 mg Ondansetron HCl (Ondansetron Inj 2 Mg/Ml 2 Ml Vial) 4 mg IV Q6H PRN PRN Reason: Nausea And Vomiting Stop: 06/29/23 17:10 Last Admin: 06/09/23 16:31 Dose: 4 mg Pantoprazole Sodium (Pantoprazole 40 Mg Tab) 40 mg PO QAM [facility] Stop: 06/27/23 08:59 Last Admin: 06/10/23 08:41 Dose: 40 mg Polyethylene Glycol (Polyethylene (Miralax) 17 Gm Pack) 17 gm PO DAILY PRN PRN Reason: Constipation Stop: 06/26/23 17:18 Last Admin: 06/01/23 17:58 Dose: 17 gm Sodium Chloride (Sodium Chloride 0.65% Na Soln 45 Ml ([place])) 2 sprays NA BID PRN PRN Reason: Nasal Congestion Stop: 06/28/23 00:12 Last Admin: 05/29/23 08:57 Dose: 2 sprays Vitamin D (Cholecalciferol 25 Mcg (1000 Units) Tab) 25 mcg PO QAM [facility] Stop: 06/27/23 08:59 Last Admin: 06/10/23 08:42 Dose: 25 mcg Warfarin Sodium (Warfarin Sod 3 Mg Tab) 3 mg PO DAILY@1600 [facility] Stop: 07/04/23 15:59 Last Admin: 06/05/23 16:28 Dose: 3 mg
[2023-06-11 08:22] LABS: BUN Creatinine Ratio 33.5 (10-20); Calcium 9.7 mg/dl (8.6-10.3); Creatinine Clr Calc Pharmacy 13.8 ml/min; Est GFR (Non-African American) 12.1 ml/min; Potassium 4.5 mmol/L (3.5-5.1)
[2023-06-11 08:31] LABS: INR 3.3 (0.9-1.1); Prothrombin Time 33.9 Seconds (9.0-12.0)
--- NOTE | 2023-06-11 11:34 | Nephrology Progress Note ---
Date of Service June 11, 2023 Assessment & Plan (1) VINITA (acute kidney injury): Plan: Acute kidney injury likely due to ischemic ATN. her ECHO and CXR is consistent with fluid overload. Creatinine has stagnated around 3.4 for the past 1 week. I had extensive discussion with patient today. Most likely she needs to start dialysis early next week. She is hesitant about dialysis. of renal failure and did not want to do dialysis. Patient wants to talk with the daughters and then decide (2) Acute on chronic combined systolic and diastolic heart failure: Plan: ECHO reviewed. We can give her torsemide 20 mg daily Plan Case complexity high. Admission and Anticipated Discharge Date Admission Date: May 27, 2023 Subjective Seen for acute kidney injury on CKD and CHF. she feels a little better today. Breathing is about the same. She is on oxygen nasal cannula. Legs slightly swollen. Remains very weak. Review of Systems 2 Review of Systems: All other systems were reviewed and negative except as noted in HPI Physical Exam 2 Physical Exam: General exam: Appears comfortable, no acute distress HEENT: Pupils are equal and reactive to light Neck: No JVD, neck is supple trachea is midline Respiratory system: Crackles bilaterally. Gastrointestinal: Abdomen is soft, non distended, non tender, bowel sounds are present CVS: Regular rate and rhythm. No murmurs, rubs or gallops Musculoskeletal: No joint or muscle tenderness Extremities: Non tender, 1+ edema, peripheral pulses are present Neuro: Oriented, no tremors, no focal neurological deficits Skin: petechial rash on the legs Results & Data Vital Signs (Past 12 Hours) Vital Signs Temp Pulse Resp BP Pulse Ox O2 Del Method O2 Flow Rate 06/11/23 07:56 36.6 C 70 18 121/71 96 Nasal Cannula 3 06/11/23 07:39 Room Air 06/11/23 03:00 36.4 C L 68 19 119/62 98 Nasal Cannula Laboratory Results 06/11/23 07:36
[2023-06-11] MEDS: TORSEMIDE 20 MG TAB PO SCH (12:15)
--- NOTE | 2023-06-11 14:41 | Hospitalist Progress Note ---
Date of Service June 11, 2023 Assessment & Plan (1) Acute on chronic combined systolic and diastolic heart failure: Plan: 87 yo female with PMH of HTN, dyslipidemia, CAD s/p PCI LAD in 2004, atrial fibrillation, tachybradycardia syndrome s/p pacemaker, history of DVT, PE, on chronic anticoagulation with warfarin, chronic CHF, CKD III, MARTI and hypoxemia on 2 L oxygen at bedtime, chronic pernicious anemia, depression, anxiety, venous insufficiency, GERD, presented to ER with c/o SOB and increased palpations x 2 weeks. Has been off digoxin since 03/2023 and has only been taking lasix 3 days a week. She is being managed for the following: Acute on chronic combined systolic and diastolic heart failure: CXR on admission personally reviewed cardiomegaly with mild interstitial pul monary edema and a trace right pleural effusion. BNP: 982, Troponin: 18. No leukocytosis. Negative respiratory Bio[employer] panel. TSH: 1.6 EKG: atrial fibrillation, rate 103, Repeat CXR- persistent pulmonary edema; mildly improved. Has been on furosemide 40 mg daily and spironolactone 12.5 mg daily since admission Digoxin restarted; to be given on 0.125 Tuesday and Tuesday at discharge Creatinine went up and Lasix and his prolactin has been on hold since 06/01/2025. Lisinopril is on hold too Appreciate cardiology input and recommendation She complains to weakness but denies any other significant symptoms Advised to drink more fluid Received 1 L of intravenous fluid yesterday and has not been eating or drinking much Creatinine remains stable and a little worse today Was advised to drink about 1.5 L of fluid in a day Digoxin on hold No signs and or symptoms of fluid overload Will get a digoxin level tomorrow Will get PT and OT evaluation-has been doing reasonably good Doing better with PT and OT Acute confusion Noted to be more confused last evening Was given intravenous fluid with 1 L of normal saline Confusion is much improved today Daughters wanted to have a CAT scan to make sure there is no stroke CT came back negative for any abnormality No more confusion but remains very weak and lethargic No more acute confusion but she remains very weak and lethargic Clinically much better denies any acute distress VINITA Chronic kidney disease stage III: Creatinine at baseline is 1.1, mildly elevated due to diuresis/Aldactone, monitor. Creatinine went up from 1.1-2.73 as of 06/04/2023 Her furosemide, spironolactone and lisinopril are on hold She was advised to drink more fluid Creatinine worsened with increasing potassium and decreasing sodium Secondary to VINITA Appreciate nephrology input and recommendation-has been getting half-normal saline with bicarb to improve potassium Will monitor PRP-creatinine has been improving potassium is normalized BUN and creatinine has been creeping up Will get 40 of Lasix intravenously to decrease possible pulmonary edema Monitor PRP-kidney function has not been improved or improving for the last 1 week Likely to end up with dialysis Plan Other significant medical problems are as below; Fever: Had temp of 38C today (further temps are normal), WBC wnl. UA and CXR neg for infection. Blood and urine Cx pending. Pt w/ no cough or pain/burn w/ passing urine or headache or diarrhea. continue to monitor off antibiotic. No abd pain on exam. Hypomagnesemia: 1.6 at admission, repleted. Monitor and replete. Other chronic medical conditions: Continue with/resume home meds as and when able. Permanent atrial fibrillation: Anticoagulated with warfarin, INR 1.9, PT/INR in AM. increased warfarin dose to 3 mg daily, continue to titrate. CAD: Status post PCI LAD in 2004. Continue home aspirin, atorvastatin, metoprolol, losartan. Hypertension: Continue home losartan, metoprolol, amlodipine. Dyslipidemia: Continue home statin. History of DVT: Anticoagulated on warfarin, continue. Tachycardia-bradycardia syndrome: Status post pacemaker. Anemia of chronic disease: Hemoglobin at baseline, continue with home vitamin B12. MARTI: Intolerant to CPAP. Uses 2 L O2 at bedtime. Depression and anxiety: Continue duloxetine, lorazepam as needed DVT prophylaxis: Patient on warfarin. INR remains elevated in spite of being on hold since seventh of this month Likely secondary to renal failure and patient not been eating and drinking well No evidence of any bleeding Will hold Coumadin today as well and recheck INR tomorrow Full code Dispo: PT/OT-recommended rehab Awaiting rehab Please note the above document was generated using voice recognition software. It may contain grammatical, syntax or spelling errors. Any formal questions or concerns about the content, text or information contained within the body of this dictation should be directly addressed to the provider for clarification Discussed with the daughters in detail on 06/05/2023 Discussed with the daughters in detail on 06/07/2023 and again on 06/10/2023 Admission and Anticipated Discharge Date Admission Date: May 27, 2023 Subjective 06/04/2023 The patient was seen and examined in telemetry unit She has been feeling better but remains very weak and lethargic Denies any cardiac and respiratory symptoms She was advised to drink more fluid 06/05/2023 The patient was seen and examined in telemetry unit She has been feeling little better today Was noted to be confused last evening in presence of the daughter She has loss of appetite and has not been eating or drinking enough Kidney function has gotten worse and nephrology will be consulted 06/06/2023 The patient was seen and examined in telemetry unit She denies any respiratory symptoms Does not have any chest pain and/or palpitation 06/07/2023 The patient was seen and examined in telemetry unit in presence of the daughters She has been any better but looks better Remains weak and lethargic and remains anorexic Denies any significant distress 06/08/2023 The patient was seen and examined in telemetry unit She has been out of bed on a chair and has been looking brighter today Feels better Denies any significant symptoms but remains weak and lethargic 06/09/2023 The patient was seen and examined in telemetry unit She has been weak but has been feeling better otherwise Denies any chest pain, palpitation or shortness of breath Appetite remains poor 06/10/2023 The patient was seen and examined in telemetry unit She has been feeling much better Has been eating and drinking little more and has had physical therapy Renal function has deteriorated though 06/11/2023 The patient was seen and examined in telemetry unit She has been feeling a little better and has had physical therapy yesterday Has been eating and drinking a little better Denies any acute symptoms Review of Systems Review of Systems: All systems reviewed and are unremarkable except as noted below Physical Exam Physical Exam: Lying in bed without any acute distress Constitutional: well developed, well nourished, + ill appearing and average body habitus Eyes: PERRL, conjunctivae normal, anicteric sclerae ENMT: external ear and nose normal, oropharynx normal Neck: trachea midline, no thyromegaly Respiratory: no respiratory distress Auscultation: + diminished lung sounds and + crackles (Minimal bibasilar crackles) Cardiovascular: Rate/Rhythm: regular rate and regular rhythm Heart Sounds: normal S1 and normal S2; no murmur Extremities: no edema Gastrointestinal (Abdomen): Inspection/Auscultation: normal bowel sounds; abdomen not distended Percussion/Palpation: abdomen soft; abdomen nontender Musculoskeletal: No acute arthritis involving any joint Neurologic: normal touch/pain/proprioception and moves all extremities; no focal motor deficits Lymphatic: no cervical or axillary lymphadenopathy Results & Data Results & Data Vital Signs (Past 12 Hours) Vital Signs Temp Pulse Resp BP Pulse Ox O2 Del Method O2 Flow Rate 06/11/23 10:44 36.4 C L 58 L 18 120/73 97 Nasal Cannula 3 06/11/23 07:56 36.6 C 70 18 121/71 96 Nasal Cannula 3 06/11/23 07:39 Room Air 06/11/23 03:00 36.4 C L 68 19 119/62 98 Nasal Cannula Laboratory Results [facility] 06/11/23 07:36 Sodium 130 L Potassium 4.5 Chloride 95 L Carbon Dioxide 26 BUN 111 H Creatinine 3.31 H Glucose 87 Calcium 9.7 Medications Administered Current Inpatient Medications Acetaminophen (Acetaminophen 325 Mg Tab) 650 mg PO Q4H PRN PRN Reason: Pain or Fever Stop: 06/26/23 17:18 Last Admin: 06/10/23 20:30 Dose: 650 mg Amlodipine Besylate (Amlodipine Besylate 5 Mg Tab) [facility] Stop: 06/27/23 08:59 Last Admin: 06/11/23 08:42 Dose: 5 mg Aspirin (Aspirin 81 Mg Chew) 81 mg PO [facility] Stop: 06/26/23 17:29 Last Admin: 06/11/23 08:43 Dose: 81 mg Atorvastatin Calcium (Atorvastatin 40 Mg Tab) 40 mg PO [facility] Stop: 06/26/23 20:59 Last Admin: 06/10/23 20:32 Dose: 40 mg Cyanocobalamin (Cyanocobalamin (B-12) 500 Mcg Tablet) 1,000 mcg PO MoWeFr@0900 [facility] Stop: 06/29/23 08:59 Last Admin: 06/10/23 08:42 Dose: 1,000 mcg Diclofenac Sodium (Diclofenac Sod 1% Gel 100 Gm Tube) 2 gm EXT Q6H [facility]; Protocol Stop: 07/02/23 17:14 Last Admin: 06/11/23 11:15 Dose: 2 gm Digoxin (Digoxin 0.125 Mg Tab) 0.125 mg PO MoWeFr@0900 [facility] Stop: 07/01/23 08:59 Last Admin: 06/06/23 08:30 Dose: 0.125 mg Duloxetine HCl (Duloxetine Hcl 30 Mg Cap) 30 mg PO QAM [facility] Stop: 06/27/23 08:59 Last Admin: 06/11/23 08:42 Dose: 30 mg Fluticasone Propionate (Fluticasone Propionate Na Spr 16 Gm Btl) 2 sprays NA DAILY [facility] Stop: 06/28/23 10:44 Last Admin: 06/11/23 08:42 Dose: 2 sprays Latanoprost (Latanoprost 0.005% Op Soln 2.5 Ml Btl) 1 drops OP HS [facility] Stop: 06/26/23 20:59 Last Admin: 06/10/23 20:31 Dose: 1 drops Lorazepam (Lorazepam 0.5 Mg Tab) 0.5 mg PO TID PRN PRN Reason: Anxiety Stop: 06/26/23 17:18 Last Admin: 05/29/23 01:09 Dose: 0.5 mg Menthol (Cough Drop (Sugar Free) Omega 24 Omega/1 Box) 1 omega BUCCAL PRN PRN PRN Reason: Sore Throat Stop: 07/01/23 19:54 Last Admin: 06/07/23 18:53 Dose: 1 omega Metoprolol Succinate (Metoprolol Succ 50mg Ext Rel Tab) 150 mg PO BID [facility] Stop: 06/26/23 20:59 Last Admin: 06/11/23 08:43 Dose: 150 mg Ondansetron HCl (Ondansetron Inj 2 Mg/Ml 2 Ml Vial) 4 mg IV Q6H PRN PRN Reason: Nausea And Vomiting Stop: 06/29/23 17:10 Last Admin: 06/09/23 16:31 Dose: 4 mg Pantoprazole Sodium (Pantoprazole 40 Mg Tab) 40 mg PO QAM [facility] Stop: 06/27/23 08:59 Last Admin: 06/11/23 08:42 Dose: 40 mg Polyethylene Glycol (Polyethylene (Miralax) 17 Gm Pack) 17 gm PO DAILY PRN PRN Reason: Constipation Stop: 06/26/23 17:18 Last Admin: 06/01/23 17:58 Dose: 17 gm Sodium Chloride (Sodium Chloride 0.65% Na Soln 45 Ml (Bearden)) 2 sprays NA BID PRN PRN Reason: Nasal Congestion Stop: 06/28/23 00:12 Last Admin: 05/29/23 08:57 Dose: 2 sprays Torsemide (Torsemide 20 Mg Tab) [facility] Stop: 07/11/23 11:44 Last Admin: 06/11/23 12:15 Dose: 20 mg Vitamin D (Cholecalciferol 25 Mcg (1000 Units) Tab) 25 mcg [facility] [place] Stop: 06/27/23 08:59 Last Admin: 06/11/23 08:42 Dose: 25 mcg Warfarin Sodium (Warfarin Sod 3 Mg Tab) 3 mg PO DAILY@1600 [facility] Stop: 07/04/23 15:59 Last Admin: 06/05/23 16:28 Dose: 3 mg
[2023-06-12 07:17] LABS: BUN Creatinine Ratio 36.1 (10-20); Calcium 9.4 mg/dl (8.6-10.3); Creatinine Clr Calc Pharmacy 15.3 ml/min; Est GFR (African American) 15.8 ml/min; Est GFR (Non-African American) 13.7 ml/min; Potassium 4.4 mmol/L (3.5-5.1)
[2023-06-12 07:34] LABS: INR 3.1 (0.9-1.1); Prothrombin Time 31.3 Seconds (9.0-12.0)
--- NOTE | 2023-06-12 11:11 | Nephrology Progress Note ---
Date of Service June 12, 2023 Assessment & Plan (1) VINITA (acute kidney injury): Plan: Acute kidney injury likely due to ischemic ATN. her ECHO and CXR is consistent with fluid overload. Creatinine slightly better today at 3 from 3.3 yesterday. I had extensive discussion with patient and the daughter on the phone today. Patient and daughter are agreeable to dialysis if needed. However given slight improvement in creatinine today, will continue to monitor daily for dialysis need. If the creatinine continues to downtrend, patient can be discharged to rehab by Tuesday. They are prepared for dialysis if needed. (2) Acute on chronic combined systolic and diastolic heart failure: Plan: ECHO reviewed. We can continue torsemide 20 mg daily Plan Case complexity high. Admission and Anticipated Discharge Date Admission Date: May 27, 2023 Subjective Seen for VINITA on CKD. She feels better today. Creatinine slightly better. Review of Systems 2 Review of Systems: All other systems were reviewed and negative except as noted in HPI Physical Exam 2 Physical Exam: General exam: Appears comfortable, no acute distress HEENT: Pupils are equal and reactive to light Neck: No JVD, neck is supple trachea is midline Respiratory system: Crackles bilaterally. Gastrointestinal: Abdomen is soft, non distended, non tender, bowel sounds are present CVS: Regular rate and rhythm. No murmurs, rubs or gallops Musculoskeletal: No joint or muscle tenderness Extremities: Non tender, 1+ edema, peripheral pulses are present Neuro: Oriented, no tremors, no focal neurological deficits Skin: petechial rash on the legs Results & Data Vital Signs (Past 12 Hours) Vital Signs Temp Pulse Resp BP Pulse Ox O2 Del Method O2 Flow Rate 06/12/23 10:54 36.6 C 74 18 138/74 95 Nasal Cannula 2 06/12/23 07:18 36.6 C 72 18 127/71 96 Nasal Cannula 2 06/12/23 07:00 Room Air 06/12/23 03:00 36.6 C 83 16 122/68 96 Room Air Laboratory Results 06/12/23 06:34
--- NOTE | 2023-06-12 14:13 | Hospitalist Progress Note ---
Date of Service June 12, 2023 Assessment & Plan (1) Acute on chronic combined systolic and diastolic heart failure: Plan: 87 yo female with PMH of HTN, dyslipidemia, CAD s/p PCI LAD in 2004, atrial fibrillation, tachybradycardia syndrome s/p pacemaker, history of DVT, PE, on chronic anticoagulation with warfarin, chronic CHF, CKD III, MARTI and hypoxemia on 2 L oxygen at bedtime, chronic pernicious anemia, depression, anxiety, venous insufficiency, GERD, presented to ER with c/o SOB and increased palpations x 2 weeks. Has been off digoxin since 03/2023 and has only been taking lasix 3 days a week. She is being managed for the following: Acute on chronic combined systolic and diastolic heart failure: CXR on admission personally reviewed cardiomegaly with mild interstitial pul monary edema and a trace right pleural effusion. BNP: 982, Troponin: 18. No leukocytosis. Negative respiratory [employer] panel. TSH: 1.6 EKG: atrial fibrillation, rate 103, Repeat CXR- persistent pulmonary edema; mildly improved. Has been on furosemide 40 mg daily and spironolactone 12.5 mg daily since admission Digoxin restarted; to be given on 0.125 Tuesday and Tuesday at discharge Creatinine went up and Lasix and his prolactin has been on hold since 06/01/2025. Lisinopril is on hold too Appreciate cardiology input and recommendation She complains to weakness but denies any other significant symptoms Advised to drink more fluid Received 1 L of intravenous fluid yesterday and has not been eating or drinking much Creatinine remains stable and a little worse today Was advised to drink about 1.5 L of fluid in a day Digoxin on hold Has been getting torsemide 20 mg daily for congestion and chest No signs of fluid overload Acute confusion Noted to be more confused last evening Was given intravenous fluid with 1 L of normal saline Confusion is much improved today Daughters wanted to have a CAT scan to make sure there is no stroke CT came back negative for any abnormality No more confusion but remains very weak and lethargic No more acute confusion but she remains very weak and lethargic Clinically much better denies any acute distress VINITA Chronic kidney disease stage III: Creatinine at baseline is 1.1, mildly elevated due to diuresis/Aldactone, monitor. Creatinine went up from 1.1-2.73 as of 06/04/2023 Her furosemide, spironolactone and lisinopril are on hold She was advised to drink more fluid Creatinine worsened with increasing potassium and decreasing sodium Secondary to VINITA Appreciate nephrology input and recommendation-has been getting half-normal saline with bicarb to improve potassium Will monitor PRP-creatinine has been improving potassium is normalized BUN and creatinine has been creeping up Will get 40 of Lasix intravenously to decrease possible pulmonary edema Has been on torsemide 20 mg daily Creatinine little better at 2.99 from 3.31 yesterday-will monitor PRP Continue 1.5 L of fluid restriction daily Plan Other significant medical problems are as below; Fever: Had temp of 38C today (further temps are normal), WBC wnl. UA and CXR neg for infection. Blood and urine Cx pending. Pt w/ no cough or pain/burn w/ passing urine or headache or diarrhea. continue to monitor off antibiotic. No abd pain on exam. Hypomagnesemia: 1.6 at admission, repleted. Monitor and replete. Other chronic medical conditions: Continue with/resume home meds as and when able. Permanent atrial fibrillation: Anticoagulated with warfarin, INR 1.9, PT/INR in AM. increased warfarin dose to 3 mg daily, continue to titrate. CAD: Status post PCI LAD in 2004. Continue home aspirin, atorvastatin, metoprolol, losartan. Hypertension: Continue home losartan, metoprolol, amlodipine. Dyslipidemia: Continue home statin. History of DVT: Anticoagulated on warfarin, continue. Tachycardia-bradycardia syndrome: Status post pacemaker. Anemia of chronic disease: Hemoglobin at baseline, continue with home vitamin B12. MARTI: Intolerant to CPAP. Uses 2 L O2 at bedtime. Depression and anxiety: Continue duloxetine, lorazepam as needed DVT prophylaxis: Patient on warfarin. INR remains elevated in spite of being on hold since seventh of this month Likely secondary to renal failure and patient not been eating and drinking well INR 3.1 today-recheck tomorrow. Coumadin is on hold Full code Dispo: PT/OT-recommended rehab Awaiting rehab Please note the above document was generated using voice recognition software. It may contain grammatical, syntax or spelling errors. Any formal questions or concerns about the content, text or information contained within the body of this dictation should be directly addressed to the provider for clarification Discussed with the daughters in detail on 06/05/2023 Discussed with the daughters in detail on 06/07/2023 and again on 06/10/2023 Admission and Anticipated Discharge Date Admission Date: May 27, 2023 Subjective 06/04/2023 The patient was seen and examined in telemetry unit She has been feeling better but remains very weak and lethargic Denies any cardiac and respiratory symptoms She was advised to drink more fluid 06/05/2023 The patient was seen and examined in telemetry unit She has been feeling little better today Was noted to be confused last evening in presence of the daughter She has loss of appetite and has not been eating or drinking enough Kidney function has gotten worse and nephrology will be consulted 06/06/2023 The patient was seen and examined in telemetry unit She denies any respiratory symptoms Does not have any chest pain and/or palpitation 06/07/2023 The patient was seen and examined in telemetry unit in presence of the daughters She has been any better but looks better Remains weak and lethargic and remains anorexic Denies any significant distress 06/08/2023 The patient was seen and examined in telemetry unit She has been out of bed on a chair and has been looking brighter today Feels better Denies any significant symptoms but remains weak and lethargic 06/09/2023 The patient was seen and examined in telemetry unit She has been weak but has been feeling better otherwise Denies any chest pain, palpitation or shortness of breath Appetite remains poor 06/10/2023 The patient was seen and examined in telemetry unit She has been feeling much better Has been eating and drinking little more and has had physical therapy Renal function has deteriorated though 06/11/2023 The patient was seen and examined in telemetry unit She has been feeling a little better and has had physical therapy yesterday Has been eating and drinking a little better Denies any acute symptoms 06/12/2023 The patient was seen and examined in telemetry unit She has been feeling little better today Anxious about dialysis if she needs it She has been eating and drinking recent Review of Systems Review of Systems: All systems reviewed and are unremarkable except as noted below Physical Exam Physical Exam: Lying in bed without any acute distress Constitutional: well developed, well nourished, + ill appearing and average body habitus Eyes: PERRL, conjunctivae normal, anicteric sclerae ENMT: external ear and nose normal, oropharynx normal Neck: trachea midline, no thyromegaly Respiratory: no respiratory distress Auscultation: + diminished lung sounds and + crackles (Minimal bibasilar crackles) Cardiovascular: Rate/Rhythm: regular rate and regular rhythm Heart Sounds: normal S1 and normal S2; no murmur Extremities: no edema Gastrointestinal (Abdomen): Inspection/Auscultation: normal bowel sounds; abdomen not distended Percussion/Palpation: abdomen soft; abdomen nontender Musculoskeletal: No acute arthritis in any of the joints Neurologic: normal touch/pain/proprioception and moves all extremities; no focal motor deficits Lymphatic: no cervical or axillary lymphadenopathy Results & Data Results & Data Vital Signs (Past 12 Hours) Vital Signs Temp Pulse Pulse Resp BP Pulse Ox O2 Del Method 06/12/23 10:54 36.6 C 74 18 138/74 95 Nasal Cannula 06/12/23 08:00 72 06/12/23 07:18 36.6 C 72 18 127/71 96 Nasal Cannula 06/12/23 07:00 Room Air 06/12/23 03:00 36.6 C 83 16 122/68 96 Room Air O2 Flow Rate 06/12/23 10:54 2 06/12/23 08:00 06/12/23 07:18 2 06/12/23 07:00 06/12/23 03:00 Laboratory Results BMP 06/12/23 06:34 Sodium 130 L Potassium 4.4 Chloride 96 L Carbon Dioxide 26 BUN 108 H Creatinine 2.99 H D Glucose 87 Calcium 9.4 Medications Administered Current Inpatient Medications Acetaminophen (Acetaminophen 325 Mg Tab) 650 mg PO Q4H PRN PRN Reason: Pain or Fever Stop: 06/26/23 17:18 Last Admin: 06/10/23 20:30 Dose: 650 mg Amlodipine Besylate (Amlodipine Besylate 5 Mg Tab) [facility] [place] Stop: 06/27/23 08:59 Last Admin: 06/12/23 08:29 Dose: 5 mg Aspirin (Aspirin 81 Mg Chew) 81 mg PO QAM [facility] Stop: 06/26/23 17:29 Last Admin: 06/12/23 08:29 Dose: 81 mg Atorvastatin Calcium (Atorvastatin 40 Mg Tab) 40 mg PO [facility] Stop: 06/26/23 20:59 Last Admin: 06/11/23 20:07 Dose: 40 mg Cyanocobalamin (Cyanocobalamin (B-12) 500 Mcg Tablet) 1,000 mcg PO MoWeFr@0900 [facility] Stop: 06/29/23 08:59 Last Admin: 06/10/23 08:42 Dose: 1,000 mcg Diclofenac Sodium (Diclofenac Sod 1% Gel 100 Gm Tube) 2 gm EXT Q6H [facility]; Protocol Stop: 07/02/23 17:14 Last Admin: 06/12/23 11:14 Dose: 2 gm Digoxin (Digoxin 0.125 Mg Tab) 0.125 mg PO MoWeFr@0900 [facility] Stop: 07/01/23 08:59 Last Admin: 06/06/23 08:30 Dose: 0.125 mg Duloxetine HCl (Duloxetine Hcl 30 Mg Cap) 30 mg PO QAM [facility] Stop: 06/27/23 08:59 Last Admin: 06/12/23 08:29 Dose: 30 mg Fluticasone Propionate (Fluticasone Propionate Na Spr 16 Gm Btl) 2 sprays NA DAILY [facility] Stop: 06/28/23 10:44 Last Admin: 06/12/23 08:29 Dose: 2 sprays Latanoprost (Latanoprost 0.005% Op Soln 2.5 Ml Btl) 1 drops OP HS [facility] Stop: 06/26/23 20:59 Last Admin: 06/11/23 20:07 Dose: 1 drops Lorazepam (Lorazepam 0.5 Mg Tab) 0.5 mg PO TID PRN PRN Reason: Anxiety Stop: 06/26/23 17:18 Last Admin: 05/29/23 01:09 Dose: 0.5 mg Menthol (Cough Drop (Sugar Free) Omega 24 Omega/1 Box) 1 omega BUCCAL PRN PRN PRN Reason: Sore Throat Stop: 07/01/23 19:54 Last Admin: 06/07/23 18:53 Dose: 1 omega Metoprolol Succinate (Metoprolol Succ 50mg Ext Rel Tab) 150 mg PO BID [facility] Stop: 06/26/23 20:59 Last Admin: 06/12/23 08:28 Dose: 150 mg Ondansetron HCl (Ondansetron Inj 2 Mg/Ml 2 Ml Vial) 4 mg IV Q6H PRN PRN Reason: Nausea And Vomiting Stop: 06/29/23 17:10 Last Admin: 06/09/23 16:31 Dose: 4 mg Pantoprazole Sodium (Pantoprazole 40 Mg Tab) 40 mg PO [facility] Stop: 06/27/23 08:59 Last Admin: 06/12/23 08:29 Dose: 40 mg Polyethylene Glycol (Polyethylene (Miralax) 17 Gm Pack) 17 gm PO DAILY PRN PRN Reason: Constipation Stop: 06/26/23 17:18 Last Admin: 06/01/23 17:58 Dose: 17 gm Sodium Chloride (Sodium Chloride 0.65% Na Soln 45 Ml ([place])) 2 sprays NA BID PRN PRN Reason: Nasal Congestion Stop: 06/28/23 00:12 Last Admin: 05/29/23 08:57 Dose: 2 sprays Torsemide (Torsemide 20 Mg Tab) 20 mg PO [facility] Stop: 07/11/23 11:44 Last Admin: 06/12/23 08:29 Dose: 20 mg Vitamin D (Cholecalciferol 25 Mcg (1000 Units) Tab) 25 mcg PO [facility] Stop: 06/27/23 08:59 Last Admin: 06/12/23 08:29 Dose: 25 mcg Warfarin Sodium (Warfarin Sod 3 Mg Tab) 3 mg PO DAILY@1600 [facility] Stop: 07/04/23 15:59 Last Admin: 06/05/23 16:28 Dose: 3 mg
[2023-06-12] MEDS: POLYETHYLENE (MIRALAX) 17 GM PACK PO SCH (16:37)
[2023-06-13 09:00] LABS: Calcium 9.3 mg/dl (8.6-10.3); Creatinine Clr Calc Pharmacy 15.9 ml/min; Est GFR (African American) 16.6 ml/min; Est GFR (Non-African American) 14.3 ml/min; Potassium 4.2 mmol/L (3.5-5.1)
[2023-06-13 09:06] LABS: INR 2.5 (0.9-1.1); Prothrombin Time 25.8 Seconds (9.0-12.0)
--- NOTE | 2023-06-13 11:23 | Nephrology Progress Note ---
Date of Service June 13, 2023 Assessment & Plan Admission and Anticipated Discharge Date Admission Date: May 27, 2023 Subjective Assessment & Plan (1) VINITA (acute kidney injury): Plan: Acute kidney injury likely due to ischemic ATN. her ECHO and CXR was consistent with fluid overload. Creatinine slightly better today at 2.88 Patient and daughter are agreeable to dialysis if needed. Continue torsemide for now Daily BMP--monitor na -downtrending and is 130 now. (2) Acute on chronic combined systolic and diastolic heart failure: Plan: ECHO reviewed. We can continue torsemide 20 mg daily Subjective Seen for VINITA on CKD. She feels better today. On room air now. Creatinine slightly better. Review of Systems Review of Systems: All other systems were reviewed and negative except as noted in HPI Physical Exam Physical Exam: General exam: Appears comfortable, no acute distress HEENT: Pupils are equal and reactive to light Neck: No JVD, neck is supple trachea is midline Respiratory system: Crackles bilaterally. Gastrointestinal: Abdomen is soft, non distended, non tender, bowel sounds are present CVS: Regular rate and rhythm. No murmurs, rubs or gallops Musculoskeletal: No joint or muscle tenderness Extremities: Non tender, 1+ edema, peripheral pulses are present Neuro: Oriented, no tremors, no focal neurological deficits Skin: petechial rash on the legs Results & Data Vital Signs (Past 12 Hours) Vital Signs Temp Pulse Resp BP Pulse Ox O2 Del Method O2 Flow Rate 06/13/23 08:00 Room Air 06/13/23 07:30 36.6 C 67 16 118/65 96 Nasal Cannula 2.0 06/13/23 04:01 36.3 C L 64 18 133/75 96 Nasal Cannula 2 06/12/23 23:33 36.4 C L 63 18 121/70 96 Nasal Cannula 1.5
[2023-06-13] MEDS ORDERED: WARFARIN SOD 2 MG TAB PO SCH (16:00)
--- NOTE | 2023-06-13 16:38 | Hospitalist Progress Note ---
Date of Service June 13, 2023 Assessment & Plan (1) Acute on chronic combined systolic and diastolic heart failure: Plan: 87 yo female with PMH of HTN, dyslipidemia, CAD s/p PCI LAD in 2004, atrial fibrillation, tachybradycardia syndrome s/p pacemaker, history of DVT, PE, on chronic anticoagulation with warfarin, chronic CHF, CKD III, MARTI and hypoxemia on 2 L oxygen at bedtime, chronic pernicious anemia, depression, anxiety, venous insufficiency, GERD, presented to ER with c/o SOB and increased palpations x 2 weeks. Has been off digoxin since 03/2023 and has only been taking lasix 3 days a week. She is being managed for the following: Acute on chronic combined systolic and diastolic heart failure: CXR on admission personally reviewed cardiomegaly with mild interstitial pul monary edema and a trace right pleural effusion. BNP: 982, Troponin: 18. No leukocytosis. Negative respiratory [employer] panel. TSH: 1.6 EKG: atrial fibrillation, rate 103, Repeat CXR- persistent pulmonary edema; mildly improved. Has been on furosemide 40 mg daily and spironolactone 12.5 mg daily since admission Digoxin restarted; to be given on 0.125 Tuesday and Tuesday at discharge Creatinine went up and Lasix and his prolactin has been on hold since 06/01/2025. Lisinopril is on hold too Appreciate cardiology input and recommendation She complains to weakness but denies any other significant symptoms Advised to drink more fluid Received 1 L of intravenous fluid yesterday and has not been eating or drinking much Creatinine remains stable and a little worse today Was advised to drink about 1.5 L of fluid in a day Digoxin on hold Has been getting torsemide 20 mg daily for congestion and chest She has been diuresing enough and the kidney function has been improving gradually Continue torsemide with the current dose and monitor PRP Acute confusion Noted to be more confused last evening Was given intravenous fluid with 1 L of normal saline Confusion is much improved today Daughters wanted to have a CAT scan to make sure there is no stroke CT came back negative for any abnormality No more confusion but remains very weak and lethargic No more acute confusion but she remains very weak and lethargic Clinically much better denies any acute distress VINITA Chronic kidney disease stage III: Creatinine at baseline is 1.1, mildly elevated due to diuresis/Aldactone, justus tor. Creatinine went up from 1.1-2.73 as of 06/04/2023 Her furosemide, spironolactone and lisinopril are on hold She was advised to drink more fluid Creatinine worsened with increasing potassium and decreasing sodium Secondary to VINITA Appreciate nephrology input and recommendation-has been getting half-normal saline with bicarb to improve potassium Will monitor PRP-creatinine has been improving potassium is normalized BUN and creatinine has been creeping up Will get 40 of Lasix intravenously to decrease possible pulmonary edema Has been on torsemide 20 mg daily Creatinine little better at 2.99 from 3.31 yesterday-will monitor PRP Continue 1.5 L of fluid restriction daily Kidney function improved to 98/2.88 Plan Other significant medical problems are as below; Fever: Had temp of 38C today (further temps are normal), WBC wnl. UA and CXR neg for infection. Blood and urine Cx pending. Pt w/ no cough or pain/burn w/ passing urine or headache or diarrhea. continue to monitor off antibiotic. No abd pain on exam. Hypomagnesemia: 1.6 at admission, repleted. Monitor and replete. Other chronic medical conditions: Continue with/resume home meds as and when able. Permanent atrial fibrillation: Anticoagulated with warfarin, INR 1.9, PT/INR in AM. increased warfarin dose to 3 mg daily, continue to titrate. CAD: Status post PCI LAD in 2004. Continue home aspirin, atorvastatin, metoprolol, losartan. Hypertension: Continue home losartan, metoprolol, amlodipine. Dyslipidemia: Continue home statin. History of DVT: Anticoagulated on warfarin, continue. Tachycardia-bradycardia syndrome: Status post pacemaker. Anemia of chronic disease: Hemoglobin at baseline, continue with home vitamin B12. MARTI: Intolerant to CPAP. Uses 2 L O2 at bedtime. Depression and anxiety: Continue duloxetine, lorazepam as needed DVT prophylaxis: Patient on warfarin. INR remains elevated in spite of being on hold since seventh of this month Likely secondary to renal failure and patient not been eating and drinking well INR 2.5 today and will start Coumadin at 2 mg daily Full code Dispo: PT/OT-recommended rehab Awaiting rehab Please note the above document was generated using voice recognition software. It may contain grammatical, syntax or spelling errors. Any formal questions or concerns about the content, text or information contained within the body of this dictation should be directly addressed to the provider for clarification Discussed with the daughters in detail on 06/05/2023 Discussed with the daughters in detail on 06/07/2023 and again on 06/10/2023 Admission and Anticipated Discharge Date Admission Date: May 27, 2023 Subjective 06/04/2023 The patient was seen and examined in telemetry unit She has been feeling better but remains very weak and lethargic Denies any cardiac and respiratory symptoms She was advised to drink more fluid 06/05/2023 The patient was seen and examined in telemetry unit She has been feeling little better today Was noted to be confused last evening in presence of the daughter She has loss of appetite and has not been eating or drinking enough Kidney function has gotten worse and nephrology will be consulted 06/06/2023 The patient was seen and examined in telemetry unit She denies any respiratory symptoms Does not have any chest pain and/or palpitation 06/07/2023 The patient was seen and examined in telemetry unit in presence of the daughters She has been any better but looks better Remains weak and lethargic and remains anorexic Denies any significant distress 06/08/2023 The patient was seen and examined in telemetry unit She has been out of bed on a chair and has been looking brighter today Feels better Denies any significant symptoms but remains weak and lethargic 06/09/2023 The patient was seen and examined in telemetry unit She has been weak but has been feeling better otherwise Denies any chest pain, palpitation or shortness of breath Appetite remains poor 06/10/2023 The patient was seen and examined in telemetry unit She has been feeling much better Has been eating and drinking little more and has had physical therapy Renal function has deteriorated though 06/11/2023 The patient was seen and examined in telemetry unit She has been feeling a little better and has had physical therapy yesterday Has been eating and drinking a little better Denies any acute symptoms 06/12/2023 The patient was seen and examined in telemetry unit She has been feeling little better today Anxious about dialysis if she needs it She has been eating and drinking recent 06/13/2023 The patient was seen and examined in telemetry unit She has been stable and feeling much better Trying to eat and drink more Kidney function has been improving gradually Review of Systems Review of Systems: All systems reviewed and are unremarkable except as noted below Physical Exam Physical Exam: Lying in bed without any acute distress Constitutional: well developed, well nourished, + ill appearing and average body habitus Eyes: PERRL, conjunctivae normal, anicteric sclerae ENMT: external ear and nose normal, oropharynx normal Neck: trachea midline, no thyromegaly Respiratory: no respiratory distress Auscultation: + diminished lung sounds and + crackles (Minimal bibasilar crackles) Cardiovascular: Rate/Rhythm: regular rate and regular rhythm Heart Sounds: normal S1 and normal S2; no murmur Extremities: no edema Gastrointestinal (Abdomen): Inspection/Auscultation: normal bowel sounds; abdomen not distended Percussion/Palpation: abdomen soft; abdomen nontender Musculoskeletal: No acute arthritis involving any of the joints Neurologic: normal touch/pain/proprioception and moves all extremities; no focal motor deficits Lymphatic: no cervical or axillary lymphadenopathy Results & Data Results & Data Vital Signs (Past 12 Hours) Vital Signs Temp Pulse Pulse Resp BP BP Pulse Ox 06/13/23 15:28 36.7 C 72 17 99/58 L 91 06/13/23 14:00 62 06/13/23 11:56 36.6 C 79 17 104/60 93 06/13/23 08:00 06/13/23 07:30 36.6 C 67 16 118/65 96 06/13/23 06:05 76 O2 Del Method O2 Flow Rate 06/13/23 15:28 Room Air 06/13/23 14:00 06/13/23 11:56 Room Air 06/13/23 08:00 Room Air 06/13/23 07:30 Nasal Cannula 2.0 06/13/23 06:05 Laboratory Results [facility] [place] 06/13/23 08:16 Sodium 130 L Potassium 4.2 Chloride 96 L Carbon Dioxide 27 BUN 98 H Creatinine 2.88 H Glucose 132 H Calcium 9.3 Medications Administered Current Inpatient Medications Acetaminophen (Acetaminophen 325 Mg Tab) 650 mg PO Q4H PRN PRN Reason: Pain or Fever Stop: 06/26/23 17:18 Last Admin: 06/13/23 10:05 Dose: 650 mg Amlodipine Besylate (Amlodipine Besylate 5 Mg Tab) [facility] [place] Stop: 06/27/23 08:59 Last Admin: 06/13/23 10:07 Dose: 5 mg Aspirin (Aspirin 81 Mg Chew) 81 mg [facility] [place] Stop: 06/26/23 17:29 Last Admin: 06/13/23 11:01 Dose: 81 mg Atorvastatin Calcium (Atorvastatin 40 Mg Tab) 40 mg PO [facility] Stop: 06/26/23 20:59 Last Admin: 06/12/23 20:02 Dose: 40 mg Cyanocobalamin (Cyanocobalamin (B-12) 500 Mcg Tablet) 1,000 mcg PO [id number] [facility] Stop: 06/29/23 08:59 Last Admin: 06/13/23 10:08 Dose: 1,000 mcg Diclofenac Sodium (Diclofenac Sod 1% Gel 100 Gm Tube) 2 gm EXT Q6H [facility]; Protocol Stop: 07/02/23 17:14 Last Admin: 06/13/23 10:06 Dose: 2 gm Digoxin (Digoxin 0.125 Mg Tab) 0.125 mg PO [id number] [facility] Stop: 07/01/23 08:59 Last Admin: 06/06/23 08:30 Dose: 0.125 mg Duloxetine HCl (Duloxetine Hcl 30 Mg Cap) 30 mg [facility] [place] Stop: 06/27/23 08:59 Last Admin: 06/13/23 10:07 Dose: 30 mg Fluticasone Propionate (Fluticasone Propionate Na Spr 16 Gm Btl) 2 sprays NA DAILY [facility] Stop: 06/28/23 10:44 Last Admin: 06/13/23 10:08 Dose: 2 sprays Latanoprost (Latanoprost 0.005% Op Soln 2.5 Ml Btl) 1 drops OP [facility] Stop: 06/26/23 20:59 Last Admin: 06/12/23 20:02 Dose: 1 drops Lorazepam (Lorazepam 0.5 Mg Tab) 0.5 mg PO TID PRN PRN Reason: Anxiety Stop: 06/26/23 17:18 Last Admin: 05/29/23 01:09 Dose: 0.5 mg Menthol (Cough Drop (Sugar Free) Omega 24 Omega/1 Box) 1 omega BUCCAL PRN PRN PRN Reason: Sore Throat Stop: 07/01/23 19:54 Last Admin: 06/07/23 18:53 Dose: 1 omega Metoprolol Succinate (Metoprolol Succ 50mg Ext Rel Tab) 150 mg PO BID [facility] Stop: 06/26/23 20:59 Last Admin: 06/13/23 10:07 Dose: 150 mg Ondansetron HCl (Ondansetron Inj 2 Mg/Ml 2 Ml Vial) 4 mg IV Q6H PRN PRN Reason: Nausea And Vomiting Stop: 06/29/23 17:10 Last Admin: 06/12/23 16:54 Dose: 4 mg Pantoprazole Sodium (Pantoprazole 40 Mg Tab) 40 mg PO [facility] Stop: 06/27/23 08:59 Last Admin: 06/13/23 10:08 Dose: 40 mg Polyethylene Glycol (Polyethylene (Miralax) 17 Gm Pack) 17 gm PO DAILY [facility] Stop: 07/12/23 15:59 Last Admin: 06/13/23 11:04 Dose: Not Given Sodium Chloride (Sodium Chloride 0.65% Na Soln 45 Ml ([place])) 2 sprays NA BID PRN PRN Reason: Nasal Congestion Stop: 06/28/23 00:12 Last Admin: 05/29/23 08:57 Dose: 2 sprays Torsemide (Torsemide 20 Mg Tab) 20 [facility] [place] Stop: 07/11/23 11:44 Last Admin: 06/13/23 10:07 Dose: 20 mg Vitamin D (Cholecalciferol 25 Mcg (1000 Units) Tab) 25 mcg [facility] [place] Stop: 06/27/23 08:59 Last Admin: 06/13/23 10:08 Dose: 25 mcg Warfarin Sodium (Warfarin Sod 2 Mg Tab) 2 mg PO DAILY@1600 [facility] Stop: 07/13/23 15:59
[2023-06-14 07:10] LABS: BUN Creatinine Ratio 35.8 (10-20); Calcium 9.3 mg/dl (8.6-10.3); Creatinine Clr Calc Pharmacy 17.7 ml/min; Est GFR (Non-African American) 16.4 ml/min; Magnesium 1.8 mg/dl (1.7-2.4); Potassium 4.5 mmol/L (3.5-5.1)
[2023-06-14 07:20] LABS: Prothrombin Time 20.9 Seconds (9.0-12.0)
--- NOTE | 2023-06-14 09:41 | Nephrology Progress Note ---
Date of Service June 14, 2023 Assessment & Plan Admission and Anticipated Discharge Date Admission Date: May 27, 2023 Subjective Assessment & Plan (1) VINITA (acute kidney injury): Plan: Acute kidney injury likely due to ischemic ATN. her ECHO and CXR was consistent with fluid overload. Creatinine slightly better today Patient and daughter are agreeable to dialysis if needed. Not needed now Continue torsemide for now Daily BMP--monitor na -downtrending and is 129 now. Could be hypervolemic type. Will do CXR x 2 view today to see if She still has Pulm edema. If present will raise the torsemide dose. (2) Acute on chronic combined systolic and diastolic heart failure: Plan: ECHO reviewed. We can continue torsemide 20 mg daily Subjective Seen for VINITA on CKD. She feels better today. BUn and Creatinine slightly better. Not much urine though. Review of Systems Review of Systems: All other systems were reviewed and negative except as noted in HPI Physical Exam Physical Exam: General exam: Appears comfortable, no acute distress HEENT: Pupils are equal and reactive to light Neck: No JVD, neck is supple trachea is midline Respiratory system: Crackles bilaterally. Gastrointestinal: Abdomen is soft, non distended, non tender, bowel sounds are present CVS: Regular rate and rhythm. No murmurs, rubs or gallops Musculoskeletal: No joint or muscle tenderness Extremities: Non tender, No edema Neuro: Oriented, no tremors, no focal neurological deficits Skin: petechial rash on the legs Results & Data Vital Signs (Past 12 Hours) Vital Signs Temp Pulse Pulse Resp BP BP Pulse Ox 06/14/23 07:38 36.3 C L 75 16 121/70 98 06/14/23 02:56 36.5 C 77 20 124/68 98 06/13/23 23:23 36.4 C L 81 20 118/71 99 06/13/23 22:00 78 O2 Del Method O2 Flow Rate 06/14/23 07:38 Nasal Cannula 2 06/14/23 02:56 Nasal Cannula 2 06/13/23 23:23 Nasal Cannula 2 06/13/23 22:00
--- NOTE | 2023-06-14 10:34 | XRay Report ---
TWO VIEW CHEST CLINICAL HISTORY: Pulmonary edema. FINDINGS: AP upright and lateral chest radiographs are compared to study dated 06/06/2023. A 2-lead car diac pacemaker is unchanged in position. The heart is enlarged noting atherosclerotic calcification o f the thoracic aorta. Mild pulmonary vascular congestion persists. There are small pleural effusions noting bibasilar scarring/atelectasis. There is no pneumothorax. The skeletal structures are osteopen ic. The bony thorax appears intact. Degenerative change is noted in the shoulders and spine. IMPRESSION: 1. Cardiomegaly and cardiac pacemaker with persistent pulmonary vascular congestion. 2. Small pleural effusions. ACT 112: Negative or not required by law. Electronically signed by: Oumar Nolasco M.D. 06/14/2023 10:32 AM
--- NOTE | 2023-06-14 15:44 | Hospitalist Progress Note ---
Date of Service June 14, 2023 Assessment & Plan (1) Acute on chronic combined systolic and diastolic heart failure: Plan: 87 yo female with PMH of HTN, dyslipidemia, CAD s/p PCI LAD in 2004, atrial fibrillation, tachybradycardia syndrome s/p pacemaker, history of DVT, PE, on chronic anticoagulation with warfarin, chronic CHF, CKD III, MARTI and hypoxemia on 2 L oxygen at bedtime, chronic pernicious anemia, depression, anxiety, venous insufficiency, GERD, presented to ER with c/o SOB and increased palpations x 2 weeks. Has been off digoxin since 03/2023 and has only been taking lasix 3 days a week. She is being managed for the following: Acute on chronic combined systolic and diastolic heart failure: CXR on admission personally reviewed cardiomegaly with mild interstitial pul monary edema and a trace right pleural effusion. BNP: 982, Troponin: 18. No leukocytosis. Negative respiratory [employer] panel. TSH: 1.6 EKG: atrial fibrillation, rate 103, Repeat CXR- persistent pulmonary edema; mildly improved. Has been on furosemide 40 mg daily and spironolactone 12.5 mg daily since admission Digoxin restarted; to be given on 0.125 Tuesday and Tuesday at discharge Creatinine went up and Lasix and his prolactin has been on hold since 06/01/2025. Lisinopril is on hold too Appreciate cardiology input and recommendation She complains to weakness but denies any other significant symptoms Advised to drink more fluid Received 1 L of intravenous fluid yesterday and has not been eating or drinking much Creatinine remains stable and a little worse today Was advised to drink about 1.5 L of fluid in a day Digoxin on hold Has been getting torsemide 20 mg daily for congestion and chest She has been diuresing enough and the kidney function has been improving gradually Creatinine shows more improvement and the chest x-ray showed- Cardiomegaly and cardiac pacemaker with persistent pulmonary vascular congestions and small pleural effusion Will increase torsemide to 40 mg a day Hyponatremia Sodium has been trending down It is 129 on 06/14/2019 Advised to eat and drink reasonably Acute confusion Noted to be more confused last evening Was given intravenous fluid with 1 L of normal saline Confusion is much improved today Daughters wanted to have a CAT scan to make sure there is no stroke CT came back negative for any abnormality No more confusion but remains very weak and lethargic No more acute confusion but she remains very weak and lethargic Clinically much better denies any acute distress VINITA Chronic kidney disease stage III: Creatinine at baseline is 1.1, mildly elevated due to diuresis/Aldactone, monitor. Creatinine went up from 1.1-2.73 as of 06/04/2023 Her furosemide, spironolactone and lisinopril are on hold She was advised to drink more fluid Creatinine worsened with increasing potassium and decreasing sodium Secondary to VINITA Appreciate nephrology input and recommendation-has been getting half-normal saline with bicarb to improve potassium Will monitor PRP-creatinine has been improving potassium is normalized BUN and creatinine has been creeping up Will get 40 of Lasix intravenously to decrease possible pulmonary edema Has been on torsemide 20 mg daily Creatinine little better at 2.99 from 3.31 yesterday-will PRP Continue 1.5 L of fluid restriction daily Kidney function improved to 98/2.88 Creatinine is even better Plan Other significant medical problems are as below; Fever: Had temp of 38C today (further temps are normal), WBC wnl. UA and CXR neg for infection. Blood and urine Cx pending. Pt w/ no cough or pain/burn w/ passing urine or headache or diarrhea. continue to monitor off antibiotic. No abd pain on exam. Hypomagnesemia: 1.6 at admission, repleted. Monitor and replete. Other chronic medical conditions: Continue with/resume home meds as and when able. Permanent atrial fibrillation: Anticoagulated with warfarin, INR 1.9, PT/INR in AM. increased warfarin dose to 3 mg daily, continue to titrate. CAD: Status post PCI LAD in 2004. Continue home aspirin, atorvastatin, metoprolol, losartan. Hypertension: Continue home losartan, metoprolol, amlodipine. Dyslipidemia: Continue home statin. History of DVT: Anticoagulated on warfarin, continue. Tachycardia-bradycardia syndrome: Status post pacemaker. Anemia of chronic disease: Hemoglobin at baseline, continue with home vitamin B12. MARTI: Intolerant to CPAP. Uses 2 L O2 at bedtime. Depression and anxiety: Continue duloxetine, lorazepam as needed DVT prophylaxis: Patient on warfarin. INR remains elevated in spite of being on hold since seventh of this month Likely secondary to renal failure and patient not been eating and drinking well INR 2.5 today and will start Coumadin at 2 mg daily INR is 2.0 today and will recheck tomorrow Full code Dispo: PT/OT-recommended rehab Awaiting rehab Please note the above document was generated using voice recognition software. It may contain grammatical, syntax or spelling errors. Any formal questions or concerns about the content, text or information contained within the body of this dictation should be directly addressed to the provider for clarification Discussed with the daughters in detail on 06/05/2023 Discussed with the daughters in detail on 06/07/2023 and again on 06/10/2023 Admission and Anticipated Discharge Date Admission Date: May 27, 2023 Subjective 06/04/2023 The patient was seen and examined in telemetry unit She has been feeling better but remains very weak and lethargic Denies any cardiac and respiratory symptoms She was advised to drink more fluid 06/05/2023 The patient was seen and examined in telemetry unit She has been feeling little better today Was noted to be confused last evening in presence of the daughter She has loss of appetite and has not been eating or drinking enough Kidney function has gotten worse and nephrology will be consulted 06/06/2023 The patient was seen and examined in telemetry unit She denies any respiratory symptoms Does not have any chest pain and/or palpitation 06/07/2023 The patient was seen and examined in telemetry unit in presence of the daughters She has been any better but looks better Remains weak and lethargic and remains anorexic Denies any significant distress 06/08/2023 The patient was seen and examined in telemetry unit She has been out of bed on a chair and has been looking brighter today Feels better Denies any significant symptoms but remains weak and lethargic 06/09/2023 The patient was seen and examined in telemetry unit She has been weak but has been feeling better otherwise Denies any chest pain, palpitation or shortness of breath Appetite remains poor 06/10/2023 The patient was seen and examined in telemetry unit She has been feeling much better Has been eating and drinking little more and has had physical therapy Renal function has deteriorated though 06/11/2023 The patient was seen and examined in telemetry unit She has been feeling a little better and has had physical therapy yesterday Has been eating and drinking a little better Denies any acute symptoms 06/12/2023 The patient was seen and examined in telemetry unit She has been feeling little better today Anxious about dialysis if she needs it She has been eating and drinking recent 06/13/2023 The patient was seen and examined in telemetry unit She has been stable and feeling much better Trying to eat and drink more Kidney function has been improving gradually 06/14/2023 The patient was seen and examined in telemetry unit She has been feeling a little better Remains weak and lethargic but everything is improving gradually Repeat chest x-ray showed cardiomegaly and cardiac pacemaker with persistent pulmonary vascular congestion and small pleural effusion Review of Systems Review of Systems: All systems reviewed and are unremarkable except as noted below Physical Exam Physical Exam: Lying in bed without any acute distress Constitutional: well developed, well nourished, + ill appearing and average body habitus Eyes: PERRL, conjunctivae normal, anicteric sclerae ENMT: external ear and nose normal, oropharynx normal Neck: trachea midline, no thyromegaly Respiratory: no respiratory distress Auscultation: + diminished lung sounds and + crackles (Minimal bibasilar crackles) Cardiovascular: Rate/Rhythm: regular rate and regular rhythm Heart Sounds: normal S1 and normal S2; no murmur Extremities: no edema Gastrointestinal (Abdomen): Inspection/Auscultation: normal bowel sounds; abdomen not distended Percussion/Palpation: abdomen soft; abdomen nontender Musculoskeletal: No acute arthritis involving any of the joint Neurologic: normal touch/pain/proprioception and moves all extremities; no focal motor deficits Lymphatic: no cervical or axillary lymphadenopathy Results & Data Results & Data Vital Signs (Past 12 Hours) Vital Signs Temp Pulse Pulse Resp BP BP Pulse Ox 06/14/23 15:24 06/14/23 11:36 36.3 C L 69 16 103/61 92 06/14/23 08:00 74 06/14/23 08:00 06/14/23 07:38 36.3 C L 75 16 121/70 98 O2 Del Method O2 Flow Rate 06/14/23 15:24 Room Air 06/14/23 11:36 Room Air 06/14/23 08:00 06/14/23 08:00 Room Air 06/14/23 07:38 Nasal Cannula [address] [facility] 06/14/23 06:27 Sodium 129 L Potassium 4.5 Chloride 97 L Carbon Dioxide 25 BUN 92 H Creatinine 2.57 H D Glucose 91 Calcium 9.3 Medications Administered Current Inpatient Medications Acetaminophen (Acetaminophen 325 Mg Tab) 650 mg PO Q4H PRN PRN Reason: Pain or Fever Stop: 06/26/23 17:18 Last Admin: 06/14/23 08:15 Dose: 650 mg Amlodipine Besylate (Amlodipine Besylate 5 Mg Tab) 5 mg PO QAM [facility] Stop: 06/27/23 08:59 Last Admin: 06/14/23 08:09 Dose: 5 mg Aspirin (Aspirin 81 Mg Chew) [facility] Stop: 06/26/23 17:29 Last Admin: 06/14/23 08:15 Dose: 81 mg Atorvastatin Calcium (Atorvastatin 40 Mg Tab) 40 mg PO [facility] Stop: 06/26/23 20:59 Last Admin: 06/13/23 20:16 Dose: 40 mg Cyanocobalamin (Cyanocobalamin (B-12) 500 Mcg Tablet) 1,000 mcg PO MoWeFr@0900 [facility] Stop: 06/29/23 08:59 Last Admin: 06/13/23 10:08 Dose: 1,000 mcg Diclofenac Sodium (Diclofenac Sod 1% Gel 100 Gm Tube) 2 gm EXT Q6H [facility]; Protocol Stop: 07/02/23 17:14 Last Admin: 06/14/23 12:21 Dose: 2 gm Digoxin (Digoxin 0.125 Mg Tab) 0.125 mg PO MoWeFr@0900 [facility] Stop: 07/01/23 08:59 Last Admin: 06/06/23 08:30 Dose: 0.125 mg Duloxetine HCl (Duloxetine Hcl 30 Mg Cap) 30 [facility] Stop: 06/27/23 08:59 Last Admin: 06/14/23 08:09 Dose: 30 mg Fluticasone Propionate (Fluticasone Propionate Na Spr 16 Gm Btl) 2 sprays NA DAILY [facility] Stop: 06/28/23 10:44 Last Admin: 06/14/23 08:10 Dose: 2 sprays Latanoprost (Latanoprost 0.005% Op Soln 2.5 Ml Btl) 1 drops OP HS [facility] Stop: 06/26/23 20:59 Last Admin: 06/13/23 20:17 Dose: 1 drops Lorazepam (Lorazepam 0.5 Mg Tab) 0.5 mg PO TID PRN PRN Reason: Anxiety Stop: 06/26/23 17:18 Last Admin: 05/29/23 01:09 Dose: 0.5 mg Menthol (Cough Drop (Sugar Free) Omega 24 Omega/1 Box) 1 omega BUCCAL PRN PRN PRN Reason: Sore Throat Stop: 07/01/23 19:54 Last Admin: 06/07/23 18:53 Dose: 1 omega Metoprolol Succinate (Metoprolol Succ 50mg Ext Rel Tab) 150 mg PO BID [facility] Stop: 06/26/23 20:59 Last Admin: 06/14/23 08:09 Dose: 150 mg Ondansetron HCl (Ondansetron Inj 2 Mg/Ml 2 Ml Vial) 4 mg IV Q6H PRN PRN Reason: Nausea And Vomiting Stop: 06/29/23 17:10 Last Admin: 06/12/23 16:54 Dose: 4 mg Pantoprazole Sodium (Pantoprazole 40 Mg Tab) [facility] Stop: 06/27/23 08:59 Last Admin: 06/14/23 08:09 Dose: 40 mg Polyethylene Glycol (Polyethylene (Miralax) 17 Gm Pack) 17 gm PO DAILY [facility] Stop: 07/12/23 15:59 Last Admin: 06/14/23 08:31 Dose: Not Given Sodium Chloride (Sodium Chloride 0.65% Na Soln 45 Ml ([place])) 2 sprays NA BID PRN PRN Reason: Nasal Congestion Stop: 06/28/23 00:12 Last Admin: 05/29/23 08:57 Dose: 2 sprays Torsemide (Torsemide 20 Mg Tab) [facility] Stop: 07/11/23 11:44 Last Admin: 06/14/23 08:09 Dose: 20 mg Vitamin D (Cholecalciferol 25 Mcg (1000 Units) Tab) 25 mcg [facility] Stop: 06/27/23 08:59 Last Admin: 06/14/23 08:10 Dose: 25 mcg Warfarin Sodium (Warfarin Sod 2 Mg Tab) 2 mg PO DAILY@1600 [facility] Stop: 07/13/23 15:59
[2023-06-14] MEDS: TORSEMIDE 20 MG TAB PO SCH (16:52)
[2023-06-15 06:58] LABS: BUN Creatinine Ratio 37.2 (10-20); Calcium 9.1 mg/dl (8.6-10.3); Creatinine Clr Calc Pharmacy 20.8 ml/min; Est GFR (African American) 23.2 ml/min; Potassium 3.8 mmol/L (3.5-5.1)
[2023-06-15 07:40] LABS: INR 1.6 (0.9-1.1); Prothrombin Time 16.7 Seconds (9.0-12.0)
--- NOTE | 2023-06-15 09:56 | Nephrology Progress Note ---
Date of Service June 15, 2023 Assessment & Plan Admission and Anticipated Discharge Date Admission Date: May 27, 2023 Subjective Assessment & Plan (1) VINITA (acute kidney injury): Plan: Acute kidney injury likely due to ischemic ATN. her ECHO and CXR was consistent with fluid overload. Creatinine slightly better today Patient and daughter are agreeable to dialysis if needed. Not needed now Continue torsemide 20 bid for now and also discharge. Daily BMP--monitor na - na 130 and stable last few days--from CHF/CKD/VINITA. CXR x 2 view yesterday reviewed and given pulm congestion/Pl eff will continue the higher dose of torsemide 20 bid. f/u nephrology in 1-2 week after discharge. (2) Acute on chronic combined systolic and diastolic heart failure: Plan: ECHO reviewed. We can continue torsemide 20 mg daily Subjective Seen for VINITA on CKD. She feels better today. BUn and Creatinine slightly better. Not much urine though. Review of Systems Review of Systems: All other systems were reviewed and negative except as noted in HPI Physical Exam Physical Exam: General exam: Appears comfortable, no acute distress HEENT: Pupils are equal and reactive to light Neck: No JVD, neck is supple trachea is midline Respiratory system: Crackles bilaterally. Gastrointestinal: Abdomen is soft, non distended, non tender, bowel sounds are present CVS: Regular rate and rhythm. No murmurs, rubs or gallops Musculoskeletal: No joint or muscle tenderness Extremities: Non tender, No edema Neuro: Oriented, no tremors, no focal neurological deficits Skin: petechial rash on the legs Results & Data Vital Signs (Past 12 Hours) Vital Signs Temp Pulse Pulse Resp BP BP Pulse Ox 06/15/23 09:07 74 06/15/23 08:00 06/15/23 07:36 36.6 C 63 18 127/73 98 06/15/23 02:04 36.6 C 70 18 126/71 96 06/14/23 22:18 36.7 C 74 18 112/64 99 06/14/23 22:00 68 O2 Del Method O2 Flow Rate 06/15/23 09:07 06/15/23 08:00 Nasal Cannula 2 06/15/23 07:36 Nasal Cannula 06/15/23 02:04 Nasal Cannula 1.0 06/14/23 22:18 Nasal Cannula 1.0 06/14/23 22:00
--- NOTE | 2023-06-15 16:28 | Hospitalist Progress Note ---
Date of Service June 15, 2023 Assessment & Plan (1) Acute on chronic combined systolic and diastolic heart failure: Plan: 87 yo female with PMH of HTN, dyslipidemia, CAD s/p PCI LAD in 2004, atrial fibrillation, tachybradycardia syndrome s/p pacemaker, history of DVT, PE, on chronic anticoagulation with warfarin, chronic CHF, CKD III, MARTI and hypoxemia on 2 L oxygen at bedtime, chronic pernicious anemia, depression, anxiety, venous insufficiency, GERD, presented to ER with c/o SOB and increased palpations x 2 weeks. Has been off digoxin since 03/2023 and has only been taking lasix 3 days a week. Acute on chronic combined systolic and diastolic heart failure Nonischemic cardiomyopathy, moderate-severe TR CXR on admission personally reviewed cardiomegaly with mild interstitial pulmonary edema and a trace right pleural effusion. BNP: 982, Troponin: 18. Repeat CXR- persistent pulmonary edema; mildly improved. Seen by cardiology and nephrology-recommended torsemide 20 Mg twice daily Currently volume status looks stable Follow-up with cardiology upon discharge Permanent atrial fibrillation-rate controlled. Seen by cardio and recommendations noted. Continue increased dose of Toprol 150 twice daily. Digoxin Tuesday. Noted Coumadin on hold since 06/12 and INR has been drifting Down, will give 4 mg of Coumadin today and check INR in AM. Spoke with pharmacist VINITA likely due to ischemic ATN-now improving. Creatinine baseline of 1.1, peaked at 3.85 on 06/05 and since then steadily improving, now down to 2.18. Also reports increasing urine output. Seen by nephrology and recommended torsemide 20 Mg twice daily for now and at discharge. Follow-up with nephrology in 1 to 2 weeks after discharge with repeat labs Hyponatremia -sodium stable at 130. Daily BMP. Continue torsemide. follow-up with nephro as outpatient. Hypertension-continue Norvasc, Toprol, torsemide DVT prophylaxis-Coumadin, follow-up on INR in a.m. Disposition-anticipate discharge to [facility] tomorrow Time spent-approximately 50 minutes Plan Other significant medical problems are as below; Fever: Had temp of 38C today (further temps are normal), WBC wnl. UA and CXR neg for infection. Blood and urine Cx pending. Pt w/ no cough or pain/burn w/ passing urine or headache or diarrhea. continue to monitor off antibiotic. No abd pain on exam. Hypomagnesemia: 1.6 at admission, repleted. Monitor and replete. Other chronic medical conditions: Continue with/resume home meds as and when able. Permanent atrial fibrillation: Anticoagulated with warfarin, INR 1.9, PT/INR in AM. increased warfarin dose to 3 mg daily, continue to titrate. CAD: Status post PCI LAD in 2004. Continue home aspirin, atorvastatin, metoprolol, losartan. Hypertension: Continue home losartan, metoprolol, amlodipine. Dyslipidemia: Continue home statin. History of DVT: Anticoagulated on warfarin, continue. Tachycardia-bradycardia syndrome: Status post pacemaker. Anemia of chronic disease: Hemoglobin at baseline, continue with home vitamin B12. MARTI: Intolerant to CPAP. Uses 2 L O2 at bedtime. Depression and anxiety: Continue duloxetine, lorazepam as needed DVT prophylaxis: Patient on warfarin. INR remains elevated in spite of being on hold since seventh of this month Likely secondary to renal failure and patient not been eating and drinking well INR 2.5 today and will start Coumadin at 2 mg daily INR is 2.0 today and will recheck tomorrow Full code Dispo: PT/OT-recommended rehab Awaiting rehab Please note the above document was generated using voice recognition software. It may contain grammatical, syntax or spelling errors. Any formal questions or concerns about the content, text or information contained within the body of this dictation should be directly addressed to the provider for clarification Discussed with the daughters in detail on 06/05/2023 Discussed with the daughters in detail on 06/07/2023 and again on 06/10/2023 Admission and Anticipated Discharge Date Admission Date: May 27, 2023 Subjective Patient was seen and examined at bedside. She is asking when she can go to [email or web address]. She still feels tired and with poor appetite. States she is not making more urine. No fever, chills, nausea or vomiting Review of Systems Review of Systems: All systems reviewed & are unremarkable except as noted in Subjective Physical Exam Physical Exam: General: Lying comfortably in bed, not in distress, on NC HEENT: EOMI, JANELL, MMM Chest: Bilateral crackles CVS: Regular rate and rhythm, normal heart sounds, no murmur Abdomen: Soft, non tender, not distended, normal bowel sounds Neuro: Awake, alert, oriented, conversing well, non focal Extremities: Trace edema Results & Data Results & Data Vital Signs (Past 12 Hours) Vital Signs Temp Pulse Resp BP BP Pulse Ox O2 Del Method 06/15/23 15:00 36.4 C L 79 18 115/57 L 93 Room Air 06/15/23 11:38 36.6 C 75 18 115/66 98 Nasal Cannula 06/15/23 09:07 74 06/15/23 08:00 Nasal Cannula 06/15/23 07:36 36.6 C 63 18 127/73 98 Nasal Cannula O2 Flow Rate 06/15/23 15:00 06/15/23 11:38 06/15/23 09:07 06/15/23 08:00 2 06/15/23 07:36 Laboratory Results BMP 06/15/23 06:16 Sodium 130 L Potassium 3.8 Chloride 98 Carbon Dioxide 27 BUN 81 H Creatinine 2.18 H D Glucose 89 Calcium 9.1 Medications Administered Current Inpatient Medications Acetaminophen (Acetaminophen 325 Mg Tab) 650 mg PO Q4H PRN PRN Reason: Pain or Fever Stop: 06/26/23 17:18 Last Admin: 06/15/23 13:27 Dose: 650 mg Amlodipine Besylate (Amlodipine Besylate 5 Mg Tab) [facility] Stop: 06/27/23 08:59 Last Admin: 06/15/23 09:08 Dose: 5 mg Aspirin (Aspirin 81 Mg Chew) 81 [facility] Stop: 06/26/23 17:29 Last Admin: 06/15/23 09:16 Dose: 81 mg Atorvastatin Calcium (Atorvastatin 40 Mg Tab) 40 mg PO [facility] Stop: 06/26/23 20:59 Last Admin: 06/14/23 19:57 Dose: 40 mg Cyanocobalamin (Cyanocobalamin (B-12) 500 Mcg Tablet) 1,000 mcg PO MoWeFr@0900 [facility] Stop: 06/29/23 08:59 Last Admin: 06/15/23 09:08 Dose: 1,000 mcg Diclofenac Sodium (Diclofenac Sod 1% Gel 100 Gm Tube) 2 gm EXT Q6H [facility]; Protocol Stop: 07/02/23 17:14 Last Admin: 06/15/23 12:11 Dose: 2 gm Digoxin (Digoxin 0.125 Mg Tab) 0.125 mg PO MoWeFr@0900 [facility] Stop: 07/01/23 08:59 Last Admin: 06/06/23 08:30 Dose: 0.125 mg Duloxetine HCl (Duloxetine Hcl 30 Mg Cap) 30 mg PO QAM [facility] Stop: 06/27/23 08:59 Last Admin: 06/15/23 09:08 Dose: 30 mg Fluticasone Propionate (Fluticasone Propionate Na Spr 16 Gm Btl) 2 sprays NA DAILY [facility] Stop: 06/28/23 10:44 Last Admin: 06/15/23 09:11 Dose: 2 sprays Latanoprost (Latanoprost 0.005% Op Soln 2.5 Ml Btl) 1 drops OP HS [facility] Stop: 06/26/23 20:59 Last Admin: 06/14/23 19:57 Dose: 1 drops Lorazepam (Lorazepam 0.5 Mg Tab) 0.5 mg PO TID PRN PRN Reason: Anxiety Stop: 06/26/23 17:18 Last Admin: 05/29/23 01:09 Dose: 0.5 mg Menthol (Cough Drop (Sugar Free) Omega 24 Omega/1 Box) 1 omega BUCCAL PRN PRN PRN Reason: Sore Throat Stop: 07/01/23 19:54 Last Admin: 06/07/23 18:53 Dose: 1 omega Metoprolol Succinate (Metoprolol Succ 50mg Ext Rel Tab) 150 mg PO BID [facility] Stop: 06/26/23 20:59 Last Admin: 06/15/23 09:08 Dose: 150 mg Ondansetron HCl (Ondansetron Inj 2 Mg/Ml 2 Ml Vial) 4 mg IV Q6H PRN PRN Reason: Nausea And Vomiting Stop: 06/29/23 17:10 Last Admin: 06/12/23 16:54 Dose: 4 mg Pantoprazole Sodium (Pantoprazole 40 Mg Tab) 40 mg PO QAM [facility] Stop: 06/27/23 08:59 Last Admin: 06/15/23 09:08 Dose: 40 mg Polyethylene Glycol (Polyethylene (Miralax) 17 Gm Pack) 17 gm PO DAILY [facility] Stop: 07/12/23 15:59 Last Admin: 06/15/23 09:08 Dose: 17 gm Sodium Chloride (Sodium Chloride 0.65% Na Soln 45 Ml ([place])) 2 sprays NA BID PRN PRN Reason: Nasal Congestion Stop: 06/28/23 00:12 Last Admin: 05/29/23 08:57 Dose: 2 sprays Torsemide (Torsemide 20 Mg Tab) 20 mg PO [id number] [facility] Stop: 07/14/23 16:59 Last Admin: 06/15/23 09:09 Dose: 20 mg Vitamin D (Cholecalciferol 25 Mcg (1000 Units) Tab) 25 mcg PO QAM [facility] Stop: 06/27/23 08:59 Last Admin: 06/15/23 09:08 Dose: 25 mcg Warfarin Sodium (Warfarin Sod 2 Mg Tab) 2 mg PO DAILY@1600 [facility] Stop: 07/13/23 15:59
[2023-06-15] MEDS: WARFARIN SOD 4 MG TAB PO ONE (17:04)
[2023-06-16 06:51] LABS: Hematocrit (blood only) 24.9 % (37.0-47.0); Mean Corpuscular Hemoglobin 34.2 pg (25.0-34.0); Mean Corpuscular Hgb Conc 36.1 g/dL (32.0-36.0); Mean Corpuscular Volume 94.7 fL (80.0-100.0); Mean Platelet Volume 9.7 fL (9.4-12.4); Platelet Count 125 K/uL (130-400); RDW Coefficient of Variation 21.4 % (11.5-14.5); Red Blood Count 2.63 M/uL (4.20-5.40); White Blood Count 6.32 K/ul (4.8-10.8)
[2023-06-16 07:06] LABS: BUN Creatinine Ratio 38.5 (10-20); Calcium 9.6 mg/dl (8.6-10.3); Creatinine Clr Calc Pharmacy 24.5 ml/min; Est GFR (African American) 28.8 ml/min; Est GFR (Non-African American) 24.9 ml/min; Magnesium 1.5 mg/dl (1.7-2.4); Potassium 3.6 mmol/L (3.5-5.1)
[2023-06-16 07:17] LABS: INR 1.5 (0.9-1.1); Prothrombin Time 15.9 Seconds (9.0-12.0)
[2023-06-16] MEDS: MAGNESIUM SULFATE / D5W 1 GM/100 ML BAG IV SCH (08:43)
--- NOTE | 2023-06-16 09:49 | Nephrology Progress Note ---
Date of Service June 16, 2023 Assessment & Plan Admission and Anticipated Discharge Date Admission Date: May 27, 2023 Subjective Assessment & Plan (1) VINITA (acute kidney injury): Plan: Acute kidney injury likely due to ischemic ATN. her ECHO and CXR was consistent with fluid overload. Creatinine slightly better today Continue torsemide 20 bid for now and also discharge. Daily BMP--monitor na - na 132 and stable last few days--from CHF/CKD/VINITA. f/u nephrology in 1-2 week after discharge. will sign off. (2) Acute on chronic combined systolic and diastolic heart failure: Plan: ECHO reviewed. We can continue torsemide 20 mg daily Subjective Seen for VINITA on CKD. She feels fine. BUn and Creatinine slightly better. Review of Systems Review of Systems: All other systems were reviewed and negative except as noted in HPI Physical Exam Physical Exam: General exam: Appears comfortable, no acute distress HEENT: Pupils are equal and reactive to light Neck: No JVD, neck is supple trachea is midline Respiratory system: Crackles bilaterally. Gastrointestinal: Abdomen is soft, non distended, non tender, bowel sounds are present CVS: Regular rate and rhythm. No murmurs, rubs or gallops Musculoskeletal: No joint or muscle tenderness Extremities: Non tender, No edema Neuro: Oriented, no tremors, no focal neurological deficits Skin: petechial rash on the legs Results & Data Vital Signs (Past 12 Hours) Vital Signs Temp Pulse Pulse Resp BP Pulse Ox O2 Del Method 06/16/23 07:51 36.3 C L 83 18 137/67 97 Nasal Cannula 06/16/23 07:39 79 06/16/23 02:28 36.6 C 77 16 135/82 92 Nasal Cannula 06/15/23 21:53 36.7 C 81 18 128/77 93 Nasal Cannula O2 Flow Rate 06/16/23 07:51 2 06/16/23 07:39 06/16/23 02:28 2.0 06/15/23 21:53 2.0
--- NOTE | 2023-06-16 15:15 | Discharge Summary ---
Date of Service June 16, 2023 Admission HPI Per Admitting Provider Patient is 87 year old female with PMH HTN, dyslipidemia, CAD s/p PCI LAD in 2004, atrial fibrillation, tachybradycardia syndrome s/p pacemaker, history of DVT, PE, on chronic anticoagulation with warfarin, chronic CHF, CKD III, MARTI and hypoxemia on 2 L oxygen at bedtime, chronic pernicious anemia, depression, anxiety, venous insufficiency, GERD, others listed below presents to ER with c/o SOB x 2 weeks. History obtained from patient as well as outpatient chart review. Evaluated by cardiology on 03/31/2023 and it was recommended to hold digoxin and resume the following week at a reduced dose of 125 mcg on Wednesdays and Fridays (decreased from tuesday through tuesday dosing secondary to elevated digoxin level) and was also suggested to increase furosemide to 20 mg daily as patient was taking on MWF schedule. Patient states that she has stopped her digoxin and has been taking lasix 20mg on MWF as she does not like frequent urination. Reports sleeps with 2 pillows at baseline, has not noticed any incr eased orthopnea. Reports chronic leg swelling with right greater than left secondary to history of DVT. Reports had outpatient RLE Doppler recently that was negative for DVT. Patient states has been taking her warfarin as prescribed. She states her weight varies by 3 pounds and when takes Lasix states loses the 3 pounds the following day. Denies any CP. Reports history of chronic palpitations however states has noticed over the past month has been having increased palpitations. She feels over the past 2 weeks has had more frequent palpitations that are lasting up to 10 minutes and associated with shortness of breath, dizziness and feeling anxious. Patient states previously when palpitations would occur they would just last a few seconds and self resolved. Patient states last night had episode of palpitations that lasted approximately 10 minutes and had associated shortness of breath and was feeling anxious. Patient states she took lorazepam which helped with symptoms. Patient reports has had nasal congestion and postnasal drip for the past month. She states sometimes will cough but feels like she is expelling stuff from the "back of her throat". Yesterday and today reporting headache. Denies vision changes, paresthesias, speech changes. Denies fall or hitting head. Did not have morning meds today. Denies fever/chills, diaphoresis, N/V/D/C, syncope, vision changes, neck pain, hemoptysis, sore throat, choking, abdominal pain, paresthesias, weakness, rashes, urinary symptoms. Chart review: Cardiac cath 04/15/2021: Moderate nonobstructive coronary artery disease (40% proximal LAD, 50% mid LAD. Moderate to severe first septal, small second diagonal disease. Widely patent proximal to mid LAD stent. 40% proximal RCA, 40% mid RCA). 08/10/2022 echo: EF: 50-54%, septal motion is abnormal consistent with right ventricular pacemaker. Left atrium severely enlarged. Grade 2 diastolic dysfunction. Mild aortic valve regurgitation. Moderate to severe mitral regurgitation. Moderate tricuspid regurgitation present. Admission Exam Per Admitting Provider General: no distress, WDWN Head: normocephalic, atraumatic Eyes: conjunctiva non-injected, anicteric ENT: normal inspection external ears, nose, mucous membranes moist Neck: supple, trachea midline, non-tender Lungs: no respiratory distress on current 2L via NC with O2 sats 96%, +rales bilateral bases CV: Irregularly irregular, rate 98, +murmur, + pretibial edema Abd: normal BS, soft, non-tender Ext: no cyanosis, no calf tenderness Neuro: A&O x 3, no focal deficits noted, normal affect Skin: warm, dry Principal Diagnosis Acute on chronic diastolic CHF, VINITA on CKD Discharge Exam General: Lying comfortably in bed, not in distress, on NC HEENT: EOMI, JANELL, MMM Chest: Fair breath sounds bilaterally CVS: Regular rate and rhythm, normal heart sounds, no murmur Abdomen: Soft, non tender, not distended, normal bowel sounds Neuro: Awake, alert, oriented, conversing well, non focal Extremities: Trace edema Discharge Data Allergies Allergy/AdvReac Type Severity Reaction Status Date / Time amiodarone Allergy Severe shortness Verified 12/09/22 10:17 of breath Iodinated Contrast Media Allergy Severe Wheezing Verified 12/09/22 10:17 Thiazides Allergy Severe wheezing Verified 12/09/22 10:17 alendronate sodium Allergy Intermediate Wheezing, Verified 12/09/22 10:17 shortness of breath. ibandronate sodium Allergy Intermediate trouble Verified 12/09/22 10:17 [From Boniva] swallowing red dye Allergy Intermediate Hives Verified 10/12/23 10:17 simvastatin Allergy Intermediate Muscle Verified 12/09/22 10:17 pain. morphine AdvReac Severe Confusion Verified 12/09/22 10:17 ezetimibe AdvReac Intermediate Muscle Verified 12/09/22 10:17 pain. erythromycin base AdvReac Mild Nausea Verified 12/09/22 10:17 metoprolol AdvReac Unknown must be Verified 12/09/22 10:18 caraco brand Consultations 05/27/23 13:03 ED Decision to Admit Stat 05/27/23 14:15 Consult Cardiology Routine 06/05/23 08:54 Consult Nephrology Routine Ordered Studies 05/27/23 13:53 CT head/brain wo con Stat 06/05/23 12:42 CT head/brain wo con Urgent Laboratory Results WBC 6.32 K/ul (4.8-10.8) 06/16/23 06:17 RBC 2.63 M/uL (4.20-5.40) L 06/16/23 06:17 Hgb 9.0 g/dl (12.0-16.0) L 06/16/23 06:17 Hct 24.9 % (37.0-47.0) L 06/16/23 06:17 MCV 94.7 fL (80.0-100.0) 06/16/23 06:17 MCH 34.2 pg (25.0-34.0) H 06/16/23 06:17 MCHC 36.1 g/dL (32.0-36.0) H 06/16/23 06:17 RDW Std Deviation 57.0 fL (36.4-46.3) H 06/16/23 06:17 RDW Coeff of Nicholas 21.4 % (11.5-14.5) H 06/16/23 06:17 Plt Count 125 K/uL (130-400) L 06/16/23 06:17 MPV 9.7 fL (9.4-12.4) 06/16/23 06:17 Immature Gran % (Auto) 1.3 % 06/06/23 06:48 Neut % (Auto) 77.4 % 06/06/23 06:48 Lymph % (Auto) 13.6 % 06/06/23 06:48 [place] % (Auto) 5.3 % 06/06/23 06:48 Eos % (Auto) 2.0 % 06/06/23 06:48 Baso % (Auto) 0.4 % 06/06/23 06:48 Neut # (Auto) 8.03 K/uL (1.40-6.50) H 06/06/23 06:48 Lymph # (Auto) 1.41 K/uL (1.20-3.40) 06/06/23 06:48 [place] # (Auto) 0.55 K/uL (0.11-0.59) 06/06/23 06:48 Eos # (Auto) 0.21 K/uL (0.00-0.50) 06/06/23 06:48 Baso # (Auto) 0.04 K/uL (0.00-0.20) 06/06/23 06:48 Immature Gran # (Auto) 0.13 K/uL (0.01-0.20) 06/06/23 06:48 Neutrophils % (Manual) 83 % 06/09/23 05:35 Lymphocytes % (Manual) 5 % 06/09/23 05:35 Monocytes % (Manual) 5 % 06/09/23 05:35 Eosinophils % (Manual) 3 % 06/09/23 05:35 Basophils % (Manual) 1 % 06/09/23 05:35 Plasma Cell % (Manual) 3 % 06/09/23 05:35 Neutrophils # (Manual) 8.62 K/uL (1.40-6.50) H 06/09/23 05:35 Total Absolute Neuts 8.62 K/uL (1.4-6.5) H 06/09/23 05:35 Lymphocytes # (Manual) 0.52 K/uL (1.2-3.4) L 06/09/23 05:35 Total Abs Lymphocytes 0.83 K/uL (1.2-3.4) L 06/09/23 05:35 Monocytes # (Manual) 0.52 K/uL (0.11-0.59) 06/09/23 05:35 Eosinophils # (Manual) 0.31 K/uL (0-0.50) 06/09/23 05:35 Basophils # (Manual) 0.10 K/uL (0-0.2) 06/09/23 05:35 Plasma Cell # (Manual) 0.31 K/uL (0-0) H 06/09/23 05:35 Polychromasia 2+ 06/06/23 06:48 Ovalocytes 1+ 05/30/23 08:33 RBC Agglutinates 1+ 06/09/23 05:35 PT 15.9 Seconds (9.0-12.0) H 06/16/23 06:17 INR 1.5 (0.9-1.1) H 06/16/23 06:17 Sodium 132 mmol/L (136-145) L 06/16/23 06:17 Potassium 3.6 mmol/L (3.5-5.1) 06/16/23 06:17 Chloride 98 mmol/L (98-107) 06/16/23 06:17 Carbon Dioxide 28 mmol/L (21-32) 06/16/23 06:17 Anion Gap 6 (3-11) 06/16/23 06:17 BUN 70 mg/dl (6-23) H 06/16/23 06:17 Creatinine 1.82 mg/dl (0.6-1.2) H D 06/16/23 06:17 Est Cr Clr Drug Dosing 24.5 ml/min 06/16/23 06:17 Est GFR ( Amer) 28.8 ml/min 06/16/23 06:17 Est GFR (Non-Af Amer) 24.9 ml/min 06/16/23 06:17 BUN/Creatinine Ratio 38.5 (10-20) H 06/16/23 06:17 Glucose 87 mg/dl (70-99(Fasting)) 06/16/23 06:17 Calcium 9.6 mg/dl (8.6-10.3) 06/16/23 06:17 Phosphorus 6.2 mg/dl (2.5-4.9) H 06/10/23 05:32 Magnesium 1.5 mg/dl (1.7-2.4) L 06/16/23 06:17 Total Bilirubin 2.1 mg/dl (0.2-1.0) H 05/28/23 05:54 AST 12 U/L (13-39) L 05/28/23 05:54 ALT 10 U/L (7-52) 05/28/23 05:54 Alkaline Phosphatase 47 U/L (34-104) 05/28/23 05:54 Troponin I High Sens 21.5 pg/ml (0-14) H 05/27/23 19:48 B-Natriuretic Peptide 982 pg/ml (0-100) H 05/27/23 11:00 Total Protein 6.6 gm/dl (6.0-8.3) 05/28/23 05:54 Albumin 3.6 gm/dl (3.4-5.0) 05/28/23 05:54 Globulin 3.0 gm/dl (2.5-4.0) 05/28/23 05:54 Albumin/Globulin Ratio 1.2 (0.9-2) 05/28/23 05:54 Lipase 19 U/L (11-82) 05/27/23 11:00 Procalcitonin 0.81 ng/ml (0-0.5) H 06/03/23 09:25 TSH 1.630 uIu/ml (0.300-4.500) 05/27/23 11:00 Urine Color Dark Yellow 06/05/23 11:59 Urine Appearance Cloudy (Clear) A 06/05/23 11:59 Urine pH 5.0 (4.5-7.5) 06/05/23 11:59 Ur Specific [place] 1.023 (1.000-1.030) 06/05/23 11:59 Urine Protein 3+ (Negative) H 06/05/23 11:59 Urine Glucose (UA) Negative (Negative) 06/05/23 11:59 Urine Ketones Trace (Negative) H 06/05/23 11:59 Urine Blood 1+ (Negative) H 06/05/23 11:59 Urine Nitrite Negative (Negative) 06/05/23 11:59 Urine Bilirubin Negative (Negative) 06/05/23 11:59 Urine Urobilinogen Negative (Negative) 06/05/23 11:59 Ur Leukocyte Esterase Trace (Negative) H 06/05/23 11:59 Urine WBC (Auto) 5-10 /hpf (0-5) H 06/05/23 11:59 Urine RBC (Auto) 10-30 /hpf (0-4) H 06/05/23 11:59 U Hyaline Cast (Auto) 1-5 /lpf (0-5) 06/05/23 11:59 U Epithel Cells (Auto) >30 /lpf (0-5) H 06/05/23 11:59 Urine Bacteria (Auto) 3+ (Negative) H 06/05/23 11:59 Ur Renal Epithelial Cell 0-5 /lpf (0-5) 06/05/23 11:59 Urine Yeast Not Reportable 06/02/23 22:45 Urine Osmolality 490 mOsm/kg (500-800) L 06/05/23 11:59 Digoxin 1.1 ng/ml (0.8-2.0) 06/10/23 05:32 Adenovirus (PCR) Not Detected (NotDetected) 05/27/23 12:06 B. pertussis DNA (PCR) Not Detected (NotDetected) 05/27/23 12:06 B.parapertussis DNA PCR Not Detected (NotDetected) 05/27/23 12:06 C. pneumoniae DNA (PCR) Not Detected (NotDetected) 05/27/23 12:06 Coronavirus OC43 (PCR) Not Detected (NotDetected) 05/27/23 12:06 Coronavirus HKU1 (PCR) Not Detected (NotDetected) 05/27/23 12:06 Coronavirus 229E (PCR) Not Detected (NotDetected) 05/27/23 12:06 SARS-CoV-2 (PCR) NEGATIVE (Negative) 06/03/23 01:33 Coronavirus NL63 (PCR) Not Detected (NotDetected) 05/27/23 12:06 Human Metapneumovir PCR Not Detected (NotDetected) 05/27/23 12:06 Influenza Type A (PCR) Negative (Neg) 06/03/23 01:33 Influenza Type B (PCR) Negative (Neg) 06/03/23 01:33 M. pneumoniae (PCR) Not Detected (NotDetected) 05/27/23 12:06 Parainfluenza 1 (PCR) Not Detected (NotDetected) 05/27/23 12:06 Parainfluenza 2 (PCR) Not Detected (NotDetected) 05/27/23 12:06 Parainfluenza 3 (PCR) Not Detected (NotDetected) 05/27/23 12:06 Parainfluenza 4 (PCR) Not Detected (NotDetected) 05/27/23 12:06 RSV (RT-PCR) Negative (Neg) 06/03/23 01:33 RSV (PCR) Not Detected (NotDetected) 05/27/23 12:06 Entero/Rhino (PCR) Not Detected (NotDetected) 05/27/23 12:[address] 06/05/23 12:42 CT head/brain wo con CLINICAL HISTORY: Acute confusion,r/o stroke/bleed Technique: Contiguous axial CT images of the head were acquired from the base of the skull to the vertex without intravenous contrast administration. Images were viewed in brain, subdural and bone windows. Automated dose lowering techniques and/or adjustment according to patient size were utilized for this exam. Comparison: Comparison is made to CT head 05/27/2023 Findings: Areas of decreased attenuation are present in the periventricular and subcortical white matter bilaterally consistent with small vessel ischemic disease. Generalized cerebral atrophy with commensurate enlargement of the ventricles, sulci, and cisterns is also present. There is no acute intracranial hemorrhage or evidence of acute territorial infarction. No shift of the midline structures, mass effect, or extra-axial abnormalities are shown. Atherosclerotic calcifications are present in the intracranial segments of the internal carotid arteries. Postsurgical changes are seen in the left maxillary sinus wall. Imaged portions of the paranasal sinuses and mastoid air cells are clear. The o rbits appear normal. There are no acute fractures of the calvaria or scalp swelling. Impression: No acute intracranial hemorrhage, no evidence of acute territorial infarction or other acute intracranial disease process. ACT 112: Negative or not required by law. Electronically signed by: Brian Lynn M.D. 06/05/2023 1:37 PM Chest X-Ray 06/14/23 09:38 TWO VIEW CHEST CLINICAL HISTORY: Pulmonary edema. FINDINGS: AP upright and lateral chest radiographs are compared to study dated 06/06/2023. A 2-lead cardiac pacemaker is unchanged in position. The heart is enlarged noting atherosclerotic calcification of the thoracic aorta. Mild pulmonary vascular congestion persists. There are small pleural effusions noting bibasilar scarring/atelectasis. There is no pneumothorax. The skeletal structures are osteopenic. The bony thorax appears intact. Degenerative change is noted in the shoulders and spine. IMPRESSION: 1. Cardiomegaly and cardiac pacemaker with persistent pulmonary vascular congestion. 2. Small pleural effusions. ACT 112: Negative or not required by law. Electronically signed by: Oumar Nolasco M.D. 06/14/2023 10:32 AM Hospital Course (1) Acute on chronic combined systolic and diastolic heart failure: 87 yo female with PMH of HTN, dyslipidemia, CAD s/p PCI LAD in 2004, atrial fibrillation, tachybradycardia syndrome s/p pacemaker, history of DVT, PE, on chronic anticoagulation with warfarin, chronic CHF, CKD III, MARTI and hypoxemia on 2 L oxygen at bedtime, chronic pernicious anemia, depression, anxiety, venous insufficiency, GERD, presented to ER with c/o SOB and increased palpations x 2 weeks. Has been off digoxin since 03/2023 and has only been taking lasix 3 days a week. Hospital course complicated by VINITA due to ATN. Nephrology was involved. Diuretic regimen adjusted and her renal function and urine output now improving. Her hyponatremia and volume status is improving too. She will be on torsemide 20 mg bid per nephro and will follow them as OP. Also reviewed her INR and coumadin dosing throughout the stay- did notice that she was subtherapeutic on her home dose, it was increased to 3 mg daily leading to supratherapeutic INR, then it was held. Her coumadin was on hold despite INR being subtherapeutic. I have resumed her coumadin at a higher dose 4 mg yesterday and today and plan is to continue 2 mg daily which I believe would suffice to keep her at therapeutic range ( Home dose 2 mg MWF and 1 mg TTSS). Rehab physican to further adjust coumadin based on the INR. Also noticed the decreasing potassium level and started on oral supplementation while on diuretic. Also started on magnesium supplementation. This will be adjusted further at the SNF based on the labs. I spoke to her daughter this morning over the phone. Acute on chronic combined systolic and diastolic heart failure Nonischemic cardiomyopathy, moderate-severe TR - CXR on admission mild interstitial pulmonary edema and a trace right pleural effusion. BNP: 982, Troponin: 18. Repeat CXR shows improvement. Currently volume status stable. - Seen by cardiology and nephrology-recommended torsemide 20 Mg twice daily. - Also started on potassium and magnesium supplement. Recommend further adjustment based on the labs- BMP, Mg. repeat labs in 2-3 days. - F/u with cardio and nephro upon discharge Permanent atrial fibrillation-rate controlled. Seen by cardio and recommendations noted. Continue Toprol 150 twice daily. Digoxin Tuesday. Coumadin adjusted- details above (home dose 2mg MWF and 1 mg TTSS; started o coumadin 4 mg yesterday and today and to start 2 mg daily from tomorrow). Recheck INR daily at SNF and adjust coumadin accordingly until therapeutic INR and stable dose identified. VINITA likely due to ischemic ATN-now improving. Creatinine baseline of 1.1, peaked at 3.85 on 06/05 and since then steadily improving, now down to 1.82. Also reports increasing urine output. Seen by nephrology and recommended torsemide 20 Mg twice daily for now and at discharge. Follow-up with nephrology in 1 to 2 weeks after discharge with repeat labs Hyponatremia -sodium improving to 132. Continue torsemide. Recheck labs as above. Hypomagnesemia- repleted. also started on po supplement while on torsemide. Hypertension-continue Norvasc, Toprol, torsemide. Losartan discontinued. Total Time Total Time Spent Total Time Spent (In Minutes): 38 Discharge Plan Discharge Items Patient Disposition: Transfer Assisted Fac Reason For Visit: SOB Discharge Diagnosis: Acute on chronic diastolic CHF, VINITA, Permanent A fib Activity: Resume your previous activity Non-emergency contact: Primary Care Provider, Master Technician and Or Nurse Manager Call non-emergency contact if: you have any medication questions and your symptoms worsen Follow-up/Referrals: Cathy Wilburn MD [Primary Care Provider] - Diet: Heart Healthy and Low Sodium (2gm) Fluids: 1500ml (6 cups) Addtl Attending Provider Instructions: Stop lasix. Start on torsemide 20 mg twice daily per nephrology. Repeat BMP daily as needed. INR is subtherapeutic due to holding coumadin and now resumed from yesterday at 4 mg. I have increased your coumadin to 2 mg daily. Recommend daily INR and coumadin adjustment until INR therapeutic and stable dose identified. Pending Studies at Discharge: No Stand-Alone Forms: My [facility] Skilled Items Patient informed of condition?: Yes DNR: No Discharge Level of Care: Skilled Communicable Disease: No Discharge Prognosis: Stable Lines: None Urinary Catheter: No Medications and DC Order Prescriptions: New torsemide 20 mg Tablet 20 mg PO [id number] Qty: 30 0RF digoxin [Digitek] 125 mcg (0.125 mg) Tablet 0.125 mg PO MoWeFr@0900 Qty: 30 0RF magnesium chloride 70 mg tablet,delayed release (DR/EC) 70 mg PO DAILY Qty: 10 0RF potassium chloride 20 mEq tablet extended release 20 meq PO DAILY Qty: 10 0RF Continued Prolia 60 mg/mL syringe 60 mg subcut UD Rx Instructions: every 6 months (DME) Oxygen Home [id number] Liters Per Minute See Rx Instructions .ROUTE Rx Instructions: As directed acetaminophen [Tylenol Extra Strength] 500 mg tablet 500 mg PO QID PRN (Reason: Pain) Rx Instructions: usually takes twice a day cyanocobalamin (vitamin B-12) [Vitamin B-12] 1,000 mcg Tablet 1,000 mcg PO [id number] Patient Comments: on tue/tue/tue Rx Instructions: Tuesday latanoprost (PF) 0.005 % Drops 1 drp OPB HS ascorbic acid (vitamin C) [Vitamin C] 1,000 mg Tablet 50 mg PO DAILY atorvastatin 40 mg Tablet 40 mg PO HS aspirin [Aspirin Childrens] 81 mg Tablet,Chewable 81 mg PO QAM lorazepam 0.5 mg tablet 0.5 mg PO TID PRN (Reason: Anxiety) metoprolol succinate 100 mg Tablet Extended Release 24 Hr 150 mg PO BID Rx Instructions: one and half tabs bid omeprazole 20 mg Capsule,Delayed Release(Dr/Ec) 20 mg PO QAM cholecalciferol (vitamin D3) [Vitamin D3] 25 mcg (1,000 unit) Capsule 25 mcg PO QAM Rx Instructions: 2,000; qam duloxetine 30 mg Capsule,Delayed Release(Dr/Ec) 30 mg PO QAM amlodipine 5 mg Tablet 5 mg PO QAM Senna Plus 8.6-50 mg Capsule 2 tab-cap PO HS PRN (Reason: Constipation) Changed warfarin 2 mg tablet 2 mg PO DAILY Qty: 30 0RF Rx Instructions: Tuesday, Tuesday and Tuesday 2 mg dose Sun,,,Sat are 1 mg dose. Discontinued furosemide 40 mg tablet 20 mg PO .TUE,TUE,TUESDAY Patient Comments: takes tuesday/tue/tuesday losartan 100 mg tablet 100 mg PO QAM Discharge Orders: Discharge Order (Routine); Ordered 06/16/23 Ordered By: Jose Gonzalez Admission Data Admit Date/Time: 05/27/23 13:26 Attending Provider: Jose Gonzalez Admit Provider: Abdirahman Garcia Primary Care Provider: Cathy Wilburn Other Providers: Abdirahman Garcia; Al Westbrook; Pacnho Amador; Brian Kelly; Josie Butler; Servando Loo; Bishop Varner; Anita Warner; Charlotte Cope Other Interventions: Discharge Summary Assessment (RN) Last Done: 06/16/23 14:54
[2023-06-16] MEDS: WARFARIN SOD 4 MG TAB PO SCH (15:41)
[2023-06-16] MEDS: POTASSIUM CHLORIDE CRTAB 20 MEQ TABCR PO STA (15:45)
== END 2023-06-16 16:44 | DRG 291 ==
LOC: SUATTDRO → ED 10:50 → EDINP 13:26 → SUATTDRO 13:26 → 2S 17:20

== ENCOUNTER 2023-11-28 10:04 | Inpatient (IN) ==
--- NOTE | 2023-11-28 10:26 | XRay Report ---
XR foot RT min 3V routine CLINICAL HISTORY: Foot trauma, no prior imaging TECHNIQUE: 3 views of the right foot were obtained. Comparison: None available at the time of this dictation. FINDINGS: Acute fractures are seen at the base of the metatarsals. The fourth and fifth metatarsal fractures ap pear comminuted. Bones are demineralized. Degenerative changes are seen. Soft tissue swelling is seen about the foot. IMPRESSION: Fractures throughout the bases of all 5 metatarsals, some of which appear comminuted. Lisfranc injury cannot be entirely excluded within the limits of radiographic examination. ACT 112: Negative or not required by law. Electronically signed by: Brian Lynn M.D. 11/28/2023 10:25 AM
[2023-11-28] MEDS: ACETAMINOPHEN 1,000 MG/100 ML VIAL IV STA (10:50)
--- NOTE | 2023-11-28 11:06 | XRay Report ---
XR chest 1V portable CLINICAL HISTORY: trauma TECHNIQUE: Single frontal radiograph of the chest was obtained. Comparison: Comparison is made to chest radiograph 06/14/2023 FINDINGS: An implanted pacemaker is seen. Calcified aortic knob is seen. The lungs are clear. No evidence of pl eural effusion or pneumothorax. IMPRESSION: No acute chest disease. ACT 112: Negative or not required by law. Electronically signed by: Brian Lynn M.D. 11/28/2023 11:05 AM
[2023-11-28 11:13] LABS: Partial Thromboplastin Time 26 Seconds (21-31); Prothrombin Time 10.9 Seconds (9.0-12.0)
[2023-11-28 11:15] LABS: Basophils # (auto) 0.06 K/uL (0.00-0.20); Basophils % (auto) 1.1 %; Eosinophils # (auto) 0.18 K/uL (0.00-0.50); Eosinophils % (auto) 3.2 %; Hematocrit (blood only) 40.9 % (37.0-47.0); Hemoglobin 13.1 g/dl (12.0-16.0); Immature Granulocytes # (auto) 0.04 K/uL (0.01-0.20); Immature Granulocytes % (auto) 0.7 %; Lymphocytes # (auto) 1.42 K/uL (1.20-3.40); Lymphocytes % (auto) 25.4 %; Mean Corpuscular Hemoglobin 31.5 pg (25.0-34.0); Mean Corpuscular Volume 98.3 fL (80.0-100.0); Mean Platelet Volume 9.1 fL (9.4-12.4); Monocytes # (auto) 0.65 K/uL (0.11-0.59); Monocytes % (auto) 11.6 %; Neutrophils # (auto) 3.23 K/uL (1.40-6.50); Platelet Count 191 K/uL (130-400); RDW Coefficient of Variation 13.9 % (11.5-14.5); RDW Standard Deviation 50.7 fL (36.4-46.3); Red Blood Count 4.16 M/uL (4.20-5.40); White Blood Count 5.58 K/ul (4.8-10.8)
[2023-11-28 11:19] LABS: Albumin Globulin Ratio 1.4 (0.9-2); Albumin Level 4.2 gm/dl (3.4-5.0); BUN Creatinine Ratio 18.4 (10-20); Bilirubin,Total 0.7 mg/dl (0.2-1.0); Calcium 11.2 mg/dl (8.6-10.3); Creatinine Clr Calc Pharmacy 24.6 ml/min; Est GFR (African American) 29.2 ml/min; Est GFR (Non-African American) 25.2 ml/min; Globulin 2.9 gm/dl (2.5-4.0); Potassium 4.7 mmol/L (3.5-5.1); Total Protein 7.1 gm/dl (6.0-8.3)
--- NOTE | 2023-11-28 11:38 | CT Scan Report ---
CT OF THE HEAD WITHOUT CONTRAST CLINICAL HISTORY: fall from standing; on eliquis COMPARISON STUDY: Head CT June 05, 2023. TECHNIQUE: Helical axial images of the head were obtained without IV contrast. Automated exposure con trol was utilized for the study. A dose lowering technique was utilized adhering to the principles o f ALARA. FINDINGS: No acute intracranial hemorrhage, midline shift or mass effect is present. The ventricular system is unremarkable. The basal cisterns are patent. White matter hypodensities are unchanged and f avor small vessel disease. No extra-axial collections are present. There are no findings to suggest a cute dural sinus thrombosis or acute territorial infarct. There are no calvarial fractures. Left orbi adelso internal fixations are intact. IMPRESSION: 1. No acute intracranial findings. 2. No calvarial fractures. ACT 112: Negative or not required by law. Electronically signed by: Ramon Don M.D. 11/28/2023 11:37 AM
--- NOTE | 2023-11-28 11:48 | CT Scan Report ---
CT cervical spine wo con CT DOSE: 1034.47 mGy.cm CLINICAL HISTORY: 88 years-old Female with fall from standing; on eliquis. Acute neck pain status po st trauma COMPARISON: Head CT of same day TECHNIQUE: Multiple axial CT images of the cervical spine were obtained without contrast. A dose low ering technique was utilized adhering to the principles of ALARA. FINDINGS: Demineralized appearance of the bones. Moderate to advanced multilevel intervertebral disc space narrowing, spondylitic spurring and facet arthrosis. Subcentimeter sclerotic focus involving th e spinous process of C2 suggestive of a probable bone island. Partially calcified pannus posterior to the dens. The cervical soft tissues appear unremarkable. Mosaic attenuation with groundglass densities of the lung apices suggestive of atelectasis with air trapping. Partially imaged left subclavian leads. IMPRESSION: No acute cervical spine fracture or subluxation identified. ACT 112: Negative or not required by law. The above report was generated using voice recognition software. It may contain grammatical, syntax o r spelling errors. Electronically signed by: Jose Cody M.D. 11/28/2023 11:46 AM
--- NOTE | 2023-11-28 12:02 | Emergency Department Note ---
Impression & Plan Fall from standing, Fracture of metatarsal of right foot, closed, Ambulatory dysfunction ED Provider Note HISTORY OF PRESENT ILLNESS: Patient is an 88-year-old female presenting as a trauma alert. Patient reports that she felt like her knees buckled under her while she was walking in her apartment today, her right foot seem to bend in an awkward angle and she fell to the ground, striking the side of her head on a cupboard. Denies loss of consciousness. She is on Eliquis daily. She is currently complaining of pain in her right foot. She denies any numbness or tingling or weakness in her extremities. Denies any chest pain or shortness of breath or lightheadedness prior to her fall. She reports she just lost her footing. ROS: as above PHYSICAL EXAM: Constitutional: Patient appears in no acute distress. HENT: Head: Normocephalic and atraumatic. Eyes: EOMI, PERRL Mouth/Throat: Mucous membranes moist. Neck: Trachea midline. Neck supple. No midline cervical spine tenderness to palpation. Cardiovascular: RRR, No murmurs, rubs or gallops. Intact distal pulses. Pulmonary/Chest: No respiratory distress. Breath sounds clear and equal bilaterally. No wheezes or rales. No chest wall tenderness to palpation. Abdominal: Abdomen soft, no tenderness, rebound or guarding. Back: No midline spinal tenderness, no paraspinal tenderness, no CVA tenderness. Patient is able to straight leg raise bilaterally. Musculoskeletal: No tenderness to palpation of the pelvis or laxity of the pelvis with palpation. - RLE: Diffuse ecchymosis and swelling to the forefoot. Patient has diffuse tenderness to palpation to this area. Intact DP pulses. Good cap refill in all 5 toes. Patient is able to dorsiflex and plantarflex the ankle. Sensation intact to light touch about the nerve distributions of the lower leg. Skin: Warm and dry. No rash, erythema, pallor or cyanosis Psychiatric: Appropriate mood and affect for situation. Neurological: Alert and keenly responsive. CN II-XII grossly intact, moving all extremities equally and fully. MDM: - Vitals signs showed hypertension - History obtained via patient. History as above. - Chronic conditions affecting care: CHF; paroxysmal Afib; CKD; DVT - Differential diagnoses include, but are not limited to: Intracranial hemorrhage; CVA; skull fracture; foot fracture; ACS; dysrhythmia; pneumothorax - Order placed for continuous cardiac monitoring. At this time, monitor showed rate of 79 bpm with normal sinus rhythm, per my interpretation. - External medical records reviewed. Discharge summary dated was reviewed. Patient was admitted that time for VINITA on CKD and acute on chronic diastolic CHF. - EKG interpreted by myself showed ventricular paced rhythm. Rate 76 bpm - Laboratory workup interpreted by myself showed normal WBC; stable hemoglobin (13.1); normal PT/INR; stable electrolytes other than hypercalcemia (Ca 11.2); CKD (Cr 1.79) - CXR negative for pneumothorax, per my interpretation - Xray right foot showed fractures through the bases of all 5 metatarsals, per my interpretation. - Patient given 1g IV tylenol in ER. - CT head wo contrast negative for acute intracranial pathology - CT cervical spine wo contrast negative for acute injury. - On review of chart, last tetanus was in 2009. Tetanus ordered in ER. - Discussed case with orthopedist waste cotton cleaner, Dr. Mckenzie, at 13:15. He recommended putting the foot in a compression wrap like a Asif stocking or José Luis wrap to give some compression to help prevent swelling. Recommended the patient be placed in a short walking boot and states that this will need to be worn for about 4 weeks. Reports the patient should be weightbearing as tolerated and should use a walker. Patient ambulates with a walker at baseline. - Patient's foot was wrapped in an josé luis wrap for compression and a short walking boot was placed. Patient was attempted to ambulate with nursing staff. However, she required a two-person assist to get up out of the bed and was unsteady on her feet while ambulating with a walker. Concern for the patient's safety at home, she does live home alone. Will admit to hospitalist service. Patient reports he has not taken any of her morning medications and was wondering if she could get her amlodipine and metoprolol for her blood pressure. Amlodipine and metoprolol succinate were ordered. - Discussion was had with trimming caser about patient's case and need for admission - Hospitalist consulted for admission - Patient admitted to [facility] hospitalist service for further evaluation and management. 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) Permanent atrial fibrillation (Acute) Subtherapeutic anticoagulation Chronic combined systolic and diastolic heart failure Encounter for pre-operative examination Anemia (Acute) Deep vein thrombosis (DVT) of right lower extremity (Acute) s/p hemicolectomy 04/27/21 Abnormal nuclear stress test Normal cardic catheterization in Mar 2020 Allergy to iodinated contrast 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 Butler Paroxysmal atrial fibrillation Chronic diastolic heart failure Medical History Hx of basal cell carcinoma Superficial thrombophlebitis posterior right knee - monitoring with PCP currently. History of ganglion cyst NSVT (nonsustained ventricular tachycardia) pt unsure of details C. difficile diarrhea s/p hemicolectomy 04/2021 - no problems since. Chronic anticoagulation Pulmonary emboli pt denies -> states only had a DVT Venous insufficiency Closed fracture of facial bone Mitral valve disease Degenerative disc disease, lumbar Osteoporosis Frequent falls last fall>a couple months ago, using cane Osteoarthritis GERD (gastroesophageal reflux disease) Glaucoma Myocardial Infarction (~2005) follows with Poli Zepeda PA-C @ [facility]>2005 or 2006? Cardiac murmur History of COVID-19 diagnosed 02/2020 @ [facility]--fever, headache, cough, loss of taste/smell--no issues now Surgical History H/O colonoscopy with polypectomy H/O vein stripping Left leg History of esophagogastroduodenoscopy (EGD) Status post subtotal parathyroidectomy 2008 R inferior adenoma History of partial hysterectomy History of dilatation and curettage History of facial surgery metal plate under left eye/left cheek S/P excision of lipoma History of arthroscopy of left knee History of colonoscopy History of tooth extraction all teeth History of parathyroidectomy partial @ [facility] History of bilateral cataract extraction History of cardiac cath 2005 with 1 stent placed @ [facility] Family History Mother , 66yo Lymphoma Father Medical history unknown Brother Accident Brother Lung cancer Smoker Diabetes Hypertension Sister Heart disease Heart surgery Sister No problems noted. Sister Endometrial cancer Thyroid disease Sister Overdose Son COPD (chronic obstructive pulmonary disease) Diabetes Myocardial infarction Hypertension Son No problems noted. Son Throat cancer Hypertension Daughter Atrial fibrillation Daughter No problems noted. 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 ibandronate sodium Allergy Intermediate trouble Verified 12/09/22 10:17 [From Boniva] swallowing red dye Allergy Intermediate Hives Verified 12/09/22 10:17 simvastatin Allergy Intermediate Muscle Verified 12/09/22 10:17 pain. morphine AdvReac Severe Confusion Verified 12/09/22 10:17 ezetimibe AdvReac Intermediate Muscle Verified 12/09/22 10:17 pain. erythromycin base AdvReac Mild Nausea Verified 12/09/22 10:17 metoprolol AdvReac Unknown must be Verified 12/09/22 10:18 caraco brand Home Meds Home Medications Medication Instructions Recorded Confirmed ascorbic acid (vitamin C) 1,000 mg 50 mg PO DAILY 01/13/21 05/27/23 tablet (Vitamin C) cyanocobalamin (vitamin B-12) 1,000 mcg PO 3XWK 01/13/21 05/27/23 1,000 mcg tablet (Vitamin B-12) latanoprost (PF) 0.005 % eye drops 1 drp OPB HS 01/13/21 05/27/23 aspirin 81 mg chewable tablet 81 mg PO QAM 05/21/21 05/27/23 (Aspirin Childrens) lorazepam 0.5 mg tablet 0.5 mg PO TID PRN Anxiety 05/21/21 05/27/23 Oxygen Home 06/18/21 05/27/23 acetaminophen 500 mg tablet 500 mg PO QID PRN Pain 06/18/21 05/27/23 (Tylenol Extra Strength) denosumab 60 mg/mL subcutaneous 60 mg subcut UD 06/18/21 05/27/23 syringe (Prolia) amlodipine 5 mg tablet 5 mg PO QAM 06/16/22 05/27/23 cholecalciferol (vitamin D3) 25 25 mcg PO QAM 06/16/22 05/27/23 mcg (1,000 unit) capsule (Vitamin D3) duloxetine 30 mg capsule,delayed 30 mg PO QAM 06/16/22 05/27/23 release metoprolol succinate 100 mg 150 mg PO BID 06/16/22 05/27/23 tablet,extended release 24 hr omeprazole 20 mg capsule,delayed 20 mg PO QAM 06/16/22 05/27/23 release atorvastatin 40 mg tablet 40 mg PO HS 12/01/22 05/27/23 sennosides 8.6 mg-docusate sodium 2 tab-cap PO HS PRN Constipation 05/27/23 05/27/23 50 mg capsule (Senna Plus) Previous Rx's Medication Instructions Recorded digoxin 125 mcg (0.125 mg) tablet 0.125 mg PO MoWeFr@0900 #30 tabs 06/16/23 (Digitek) magnesium chloride 70 mg 70 mg PO DAILY #10 tabs 06/16/23 (magnesium chloride) tablet,delayed release potassium chloride 20 mEq 20 meq PO DAILY #10 tabs 06/16/23 tablet,extended release torsemide 20 mg tablet 20 mg PO BID17 #30 tabs 06/16/23 warfarin 2 mg tablet 2 mg PO DAILY #30 tabs 06/16/23 Results & Data (ED) Vital Signs Vital Signs - 24 hr 11/28/23 10:16 11/28/23 10:23 11/28/23 10:23 Temperature 36.8 C Pulse Rate 82 Pulse Rate [Left Finger] Pulse Rate from SpO2 Sensor Pulse Rhythm [Left Finger] Pulse Strength [Left Finger] Pulse Strength [Right Carotid] Normal Respiratory Rate 20 Respiratory Effort / Characteristics Respiratory Depth Respiratory Pattern Blood Pressure 150/90 H Blood Pressure [Left Arm] Blood Pressure Mean Blood Pressure Mean [Left Arm] Blood Pressure Position [Left Arm] Pulse Oximetry 98 Oxygen Delivery Method Room Air Room Air Sepsis Recent Fever Within 48 Hours No Sepsis New/Unexplained Change in Mental Status No Sepsis Action Taken by Nursing No Action Required 11/28/23 10:33 11/28/23 11:31 11/28/23 12:00 Temperature Pulse Rate 67 Pulse Rate [Left Finger] 68 Pulse Rate from SpO2 Sensor Pulse Rhythm [Left Finger] Regular Pulse Strength [Left Finger] Normal Pulse Strength [Right Carotid] Respiratory Rate 20 Respiratory Effort / Characteristics Non-Labored Spontaneous Non-Labored Spontaneous Respiratory Depth Normal Normal Respiratory Pattern Regular Blood Pressure Blood Pressure [Left Arm] 148/102 H 155/98 H Blood Pressure Mean Blood Pressure Mean [Left Arm] 117 117 Blood Pressure Position [Left Arm] Lying Lying Pulse Oximetry 96 Oxygen Delivery Method Room Air Room Air Sepsis Recent Fever Within 48 Hours Sepsis New/Unexplained Change in Mental Status Sepsis Action Taken by Nursing 11/28/23 12:00 11/28/23 12:00 11/28/23 12:00 Temperature Pulse Rate Pulse Rate [Left Finger] 66 Pulse Rate from SpO2 Sensor Pulse Rhythm [Left Finger] Regular Pulse Strength [Left Finger] Normal Pulse Strength [Right Carotid] Respiratory Rate 22 Respiratory Effort / Characteristics Non-Labored Spontaneous Respiratory Depth Normal Respiratory Pattern Regular Blood Pressure 165/93 H 165/93 H Blood Pressure [Left Arm] Blood Pressure Mean 126 126 Blood Pressure Mean [Left Arm] Blood Pressure Position [Left Arm] Pulse Oximetry 96 Oxygen Delivery Method Room Air Sepsis Recent Fever Within 48 Hours Sepsis New/Unexplained Change in Mental Status Sepsis Action Taken by Nursing 11/28/23 12:00 11/28/23 12:15 11/28/23 12:21 Temperature Pulse Rate 67 71 65 Pulse Rate [Left Finger] Pulse Rate from SpO2 Sensor 68 66 61 Pulse Rhythm [Left Finger] Pulse Strength [Left Finger] Pulse Strength [Right Carotid] Respiratory Rate 17 18 17 Respiratory Effort / Characteristics Respiratory Depth Respiratory Pattern Blood Pressure 165/93 H Blood Pressure [Left Arm] Blood Pressure Mean 117 Blood Pressure Mean [Left Arm] Blood Pressure Position [Left Arm] Pulse Oximetry 95 94 94 Oxygen Delivery Method Sepsis Recent Fever Within 48 Hours Sepsis New/Unexplained Change in Mental Status Sepsis Action Taken by Nursing 11/28/23 12:30 11/28/23 12:30 11/28/23 12:30 Temperature Pulse Rate 69 Pulse Rate [Left Finger] Pulse Rate from SpO2 Sensor 72 Pulse Rhythm [Left Finger] Pulse Strength [Left Finger] Pulse Strength [Right Carotid] Respiratory Rate 16 Respiratory Effort / Characteristics Respiratory Depth Respiratory Pattern Blood Pressure 148/86 H 148/86 H Blood Pressure [Left Arm] Blood Pressure Mean 119 119 Blood Pressure Mean [Left Arm] Blood Pressure Position [Left Arm] Pulse Oximetry 94 Oxygen Delivery Method Sepsis Recent Fever Within 48 Hours Sepsis New/Unexplained Change in Mental Status Sepsis Action Taken by Nursing 11/28/23 12:30 11/28/23 12:42 11/28/23 12:54 Temperature Pulse Rate 66 Pulse Rate [Left Finger] Pulse Rate from SpO2 Sensor 62 Pulse Rhythm [Left Finger] Pulse Strength [Left Finger] Pulse Strength [Right Carotid] Respiratory Rate 16 Respiratory Effort / Characteristics Non-Labored Spontaneous Respiratory Depth Normal Respiratory Pattern Regular Blood Pressure 148/86 H 148/86 H Blood Pressure [Left Arm] Blood Pressure Mean 119 106 Blood Pressure Mean [Left Arm] Blood Pressure Position [Left Arm] Pulse Oximetry 95 Oxygen Delivery Method Sepsis Recent Fever Within 48 Hours Sepsis New/Unexplained Change in Mental Status Sepsis Action Taken by Nursing 11/28/23 13:45 11/28/23 14:08 11/28/23 14:08 Temperature Pulse Rate 79 Pulse Rate [Left Finger] 73 Pulse Rate from SpO2 Sensor Pulse Rhythm [Left Finger] Regular Pulse Strength [Left Finger] Normal Pulse Strength [Right Carotid] Respiratory Rate 21 21 Respiratory Effort / Characteristics Non-Labored Respiratory Depth Normal Respiratory Pattern Regular Blood Pressure 155/121 H 155/121 H Blood Pressure [Left Arm] 153/88 H Blood Pressure Mean 131 131 Blood Pressure Mean [Left Arm] 109 Blood Pressure Position [Left Arm] Lying Pulse Oximetry 95 96 Oxygen Delivery Method Room Air Sepsis Recent Fever Within 48 Hours Sepsis New/Unexplained Change in Mental Status Sepsis Action Taken by Nursing 11/28/23 14:12 11/28/23 14:27 Temperature Pulse Rate 77 Pulse Rate [Left Finger] Pulse Rate from SpO2 Sensor 77 Pulse Rhythm [Left Finger] Pulse Strength [Left Finger] Pulse Strength [Right Carotid] Respiratory Rate 15 Respiratory Effort / Characteristics Respiratory Depth Respiratory Pattern Blood Pressure Blood Pressure [Left Arm] 185/98 H Blood Pressure Mean Blood Pressure Mean [Left Arm] 127 Blood Pressure Position [Left Arm] Pulse Oximetry 94 Oxygen Delivery Method Sepsis Recent Fever Within 48 Hours Sepsis New/Unexplained Change in Mental Status Sepsis Action Taken by Nursing Laboratory Data 11/28/23 10:32 11/28/23 10:32 Lab Results 11/28/23 Range/Units 10:32 WBC 5.58 (4.8-10.8) K/ul RBC 4.16 L (4.20-5.40) M/uL Hgb 13.1 (12.0-16.0) g/dl Hct 40.9 (37.0-47.0) % MCV 98.3 (80.0-100.0) fL MCH 31.5 (25.0-34.0) pg MCHC 32.0 (32.0-36.0) g/dL RDW Std Deviation 50.7 H (36.4-46.3) fL RDW Coeff of Nicholas 13.9 (11.5-14.5) % Plt Count 191 (130-400) K/uL MPV 9.1 L (9.4-12.4) fL Immature Gran % (Auto) 0.7 % Neut % (Auto) 58.0 % Lymph % (Auto) 25.4 % Hardy % (Auto) 11.6 % Eos % (Auto) 3.2 % Baso % (Auto) 1.1 % Neut # (Auto) 3.23 (1.40-6.50) K/uL Lymph # (Auto) 1.42 (1.20-3.40) K/uL Hardy # (Auto) 0.65 H (0.11-0.59) K/uL Eos # (Auto) 0.18 (0.00-0.50) K/uL Baso # (Auto) 0.06 (0.00-0.20) K/uL Immature Gran # (Auto) 0.04 (0.01-0.20) K/uL PT 10.9 (9.0-12.0) Seconds INR 1.0 (0.9-1.1) APTT 26 (21-31) Seconds PTT Ratio 1.0 Sodium 136 (136-145) mmol/L Potassium 4.7 (3.5-5.1) mmol/L Chloride 102 (98-107) mmol/L Carbon Dioxide 29 (21-32) mmol/L Anion Gap 5 (3-11) BUN 33 H (6-23) mg/dl Creatinine 1.79 H (0.6-1.2) mg/dl Est Cr Clr Drug Dosing 24.6 ml/min Est GFR ( Amer) 29.2 ml/min Est GFR (Non-Af Amer) 25.2 ml/min BUN/Creatinine Ratio 18.4 (10-20) Glucose 96 (70-99(Fasting)) mg/dl Calcium 11.2 H (8.6-10.3) mg/dl Total Bilirubin 0.7 (0.2-1.0) mg/dl AST 15 (13-39) U/L ALT 15 (7-52) U/L Alkaline Phosphatase 51 (34-104) U/L Total Protein 7.1 (6.0-8.3) gm/dl Albumin 4.2 (3.4-5.0) gm/dl Globulin 2.9 (2.5-4.0) gm/dl Albumin/Globulin Ratio 1.4 (0.9-2) Administered Medications Discontinued Medications Diphtheria/Pertussis/Tetanus Vacc (Diphther/Tetan/Pertus Vaccine (Tdap, Adol/Adult) 0.5ml) 0.5 ml IM .ONCE ONE Stop: 11/28/23 13:49 Last Admin: 11/28/23 13:55 Dose: 0.5 ml Documented By: CARSON Acetaminophen (Ofirmev) 1,000 mg in 100 mls @ 400 mls/hr IV NOW STA Stop: 11/28/23 10:57 Last Infusion: 11/28/23 11:33 Dose: Infused Documented By: Admin: 11/28/23 10:50 Dose: 400 mls/hr Documented By: [facility] Imaging Data Radiologist's Impression: Foot X-Ray 11/28/23 10:14 XR foot RT min 3V routine CLINICAL HISTORY: Foot trauma, no prior imaging TECHNIQUE: 3 views of the right foot were obtained. Comparison: None available at the time of this dictation. FINDINGS: Acute fractures are seen at the base of the metatarsals. The fourth and fifth metatarsal fractures appear comminuted. Bones are demineralized. Degenerative changes are seen. Soft tissue swelling is seen about the foot. IMPRESSION: Fractures throughout the bases of all 5 metatarsals, some of which appear comminuted. Lisfranc injury cannot be entirely excluded within the limits of radiographic examination. ACT 112: Negative or not required by law. Electronically signed by: Brian Lynn M.D. 11/28/2023 10:25 AM Chest X-Ray 11/28/23 10:32 XR chest 1V portable CLINICAL HISTORY: trauma TECHNIQUE: Single frontal radiograph of the chest was obtained. Comparison: Comparison is made to chest radiograph 06/14/2023 FINDINGS: An implanted pacemaker is seen. Calcified aortic knob is seen. The lungs are clear. No evidence of pleural effusion or pneumothorax. IMPRESSION: No acute chest disease. ACT 112: Negative or not required by law. Electronically signed by: Brian Lynn M.D. 11/28/2023 11:[address] 11/28/23 10:43 CT cervical spine wo con CT DOSE: 1034.47 mGy.cm CLINICAL HISTORY: 88 years-old Female with fall from standing; on eliquis. Acute neck pain status post trauma COMPARISON: Head CT of same day TECHNIQUE: Multiple axial CT images of the cervical spine were obtained without contrast. A dose lowering technique was utilized adhering to the principles of ALARA. FINDINGS: Demineralized appearance of the bones. Moderate to advanced multilevel intervertebral disc space narrowing, spondylitic spurring and facet arthrosis. Subcentimeter sclerotic focus involving the spinous process of C2 suggestive of a probable bone island. Partially calcified pannus posterior to the dens. The cervical soft tissues appear unremarkable. Mosaic attenuation with groundglass densities of the lung apices suggestive of atelectasis with air trapping. Partially imaged left subclavian leads. IMPRESSION: No acute cervical spine fracture or subluxation identified. ACT 112: Negative or not required by law. The above report was generated using voice recognition software. It may contain grammatical, syntax or spelling errors. Electronically signed by: Jose Cody M.D. 11/28/2023 11:[address] 11/28/23 10:43 CT OF THE HEAD WITHOUT CONTRAST CLINICAL HISTORY: fall from standing; on eliquis COMPARISON STUDY: Head CT June 05, 2023. TECHNIQUE: Helical axial images of the head were obtained without IV contrast. Automated exposure control was utilized for the study. A dose lowering technique was utilized adhering to the principles of ALARA. FINDINGS: No acute intracranial hemorrhage, midline shift or mass effect is present. The ventricular system is unremarkable. The basal cisterns are patent. White matter hypodensities are unchanged and favor small vessel disease. No extra-axial collections are present. There are no findings to suggest acute dural sinus thrombosis or acute territorial infarct. There are no calvarial fractures. Left orbital internal fixations are intact. IMPRESSION: 1. No acute intracranial findings. 2. No calvarial fractures. ACT 112: Negative or not required by law. Electronically signed by: Ramon Don M.D. 11/28/2023 11:37 AM Discharge Plan Visit Data Chief Complaint: Trauma ED Provider: Krupa Payton Discharge Problem: Fall from standing, Fracture of metatarsal of right foot, closed, Ambulatory dysfunction Forms Stand Alone Forms: [facility] Prescriptions Prescriptions: No Action Prolia 60 mg/mL syringe 60 mg subcut UD Rx Instructions: every 6 months (DME) Oxygen Home Liters Per Minute See Rx Instructions .ROUTE Rx Instructions: As directed acetaminophen [Tylenol Extra Strength] 500 mg tablet 500 mg PO QID PRN (Reason: Pain) Rx Instructions: usually takes twice a day cyanocobalamin (vitamin B-12) [Vitamin B-12] 1,000 mcg Tablet 1,000 mcg PO 3XWK Patient Comments: on tue/tue/tue Rx Instructions: TuesdayDAY TUESDAY latanoprost (PF) 0.005 % Drops 1 drp OPB HS ascorbic acid (vitamin C) [Vitamin C] 1,000 mg Tablet 50 mg PO DAILY atorvastatin 40 mg Tablet 40 mg PO HS aspirin [Aspirin Childrens] 81 mg Tablet,Chewable 81 mg PO QAM lorazepam 0.5 mg tablet 0.5 mg PO TID PRN (Reason: Anxiety) metoprolol succinate 100 mg Tablet Extended Release 24 Hr 150 mg PO BID Rx Instructions: one and half tabs bid omeprazole 20 mg Capsule,Delayed Release(Dr/Ec) 20 mg PO QAM cholecalciferol (vitamin D3) [Vitamin D3] 25 mcg (1,000 unit) Capsule 25 mcg PO QAM Rx Instructions: 2,000; qam duloxetine 30 mg Capsule,Delayed Release(Dr/Ec) 30 mg PO QAM amlodipine 5 mg Tablet 5 mg PO QAM Senna Plus 8.6-50 mg Capsule 2 tab-cap PO HS PRN (Reason: Constipation) torsemide 20 mg Tablet 20 mg PO BID17 Qty: 30 0RF digoxin [Digitek] 125 mcg (0.125 mg) Tablet 0.125 mg PO MoWeFr@0900 Qty: 30 0RF warfarin 2 mg tablet 2 mg PO DAILY Qty: 30 0RF Rx Instructions: Tuesday, Tuesday and Tuesday 2 mg dose Sun,,,Sat are 1 mg dose. magnesium chloride 70 mg tablet,delayed release (DR/EC) 70 mg PO DAILY Qty: 10 0RF potassium chloride 20 mEq tablet extended release 20 meq PO DAILY Qty: 10 0RF Referrals Referrals: Cathy Wilburn MD [Primary Care Provider] -
[2023-11-28] MEDS: DIPHTHER/TETAN/PERTUS Vaccine (Tdap, Adol/Adult) 0.5mL IM ONE (13:55)
--- NOTE | 2023-11-28 14:27 | History & Physical Report ---
Date of Service November 28, 2023 Assessment & Plan (1) Ambulatory dysfunction: (2) Fracture of metatarsal of right foot, closed: (3) Fall from standing: (4) Chronic combined systolic and diastolic heart failure: (5) Permanent atrial fibrillation: (6) Colon adenocarcinoma: (7) Deep vein thrombosis (DVT) of right lower extremity: (8) Chronic kidney disease (CKD), stage III (moderate): (9) Hyperparathyroidism: (10) Chronic anticoagulation: (11) Pulmonary emboli: Plan: Fall Right Foot Metatarsal Fracture x 5 Metatarsal Ambulatory Dysfunction - Admit to med surg with tele - Ortho consult for boot/stabilizing shoe - per report pt can WBAT, no plans for surgical intervention - PT/OT consults, pt will require therapy as she lives at home alone in apt complex - Pain control and bowel regimen ordered - tylenol around the clock, Add tramadol x 1 dose, may require prn if tolerates. - CT head and neck is negative for acute findings - Xray foot Right reviewed showing all five metatarsal fractures present. Acute on chronic combined systolic and diastolic heart failure Nonischemic cardiomyopathy, moderate-severe TR - CXR negative - Follows with cardiology and nephrology torsemide 15 Mg QAM - is euvolemic on admission - on potassium and magnesium supplement HTN Permanent atrial fibrillation Pacemaker implanted -rate controlled. -Home meds: Toprol 100 twice daily. Digoxin Tuesday. Was given dose here as missed morning meds -- pt was also given dose of amlodipine however this was discontinued previously. Do not continue. - Anticoagulated on Eliquis VINITA, hx of due to ischemic ATN - Creatinine baseline of 1.1, on admission is 1.7 - likely due to recently being on bactrim for LLE cellulitis, denies urinary sx at this point, only had 1 more dose left to complete 7 d course. Prior to that was prescribed doxycycline for cellulitis but could not tolerate it due to GI side effects. - Follows with nephrology - Torsemide 15 mg daily - missed this morning - appears euvolemic. Hx of Hyponatremia -[id number]. Continue torsemide. Follow am labs Hyperparathyroidism - Calcium 11.3 on admission - Check TSH with am labs Hx of Colon cx diagnosed in 2021 - s/o hemicolectomy, no chemotherapy warranted, stable in remission currently - Last BM yesterday, normal is every few days - Miralax prn ordered DVT ppx: teds, scds, Eliquis Lines: PIV x 1 FEN/GI: Heart healthy CODE: Full code - discussed with pt at bedside Dispo: From home, likely to remain in the hospital x 1-2 days A total of 75 minutes were spent with greater than 50% of that time face to face with the patient, personally reviewing all current laboratories, imaging studi es, past medication reconciliation, outpatient chart review, and discussion with specialists to collaborate care for the patient with attending. Please see attending documentation for corrections and/or additions. History of Present Illness Chief Complaint: Fall from standing Primary Care Provider: Cathy Wilburn MD This is a 88 yo F with PMHx HTN, dyslipidemia, CAD s/p PCI LAD in 2004, atrial fibrillation, tachybradycardia syndrome s/p pacemaker, history of DVT, PE, on chronic anticoagulation with eliquis, chronic CHF, CKD III, MARTI and hypoxemia on 2 L oxygen at bedtime, chronic pernicious anemia, depression, anxiety, venous insufficiency, GERD, others listed below. She presents today with Acute fall that she sustained while at home patient was walking with a walker, states her knees locked up and she fell down to the ground and her R foot twisted funny underneath her. She had immediate pain and called EMS. She missed her morning medications today, including metoprolol succinate 100 mg, digoxin, torsemide. She last took her Eliquis yesterday. Here in the ER pt is found to have Right metatarsals x 5 fracutred. Patient was given 1000 mg IV Tylenol which slightly improved her pain however at the point of my visit she reports that would like to try something additional. Will give her 1 dose of tramadol. Patient states that she already has a home health PT/OT coming to her apartment twice weekly, is not keen on going to inpatient rehab but is willing to participate if this is best for her safety. She has 4 children but does not have a designated medical POA. Allergies Allergy/AdvReac Type Severity Reaction Status Date / Time amiodarone Allergy Severe shortness Verified 12/09/22 10:17 of breath Iodinated Contrast Media Allergy Severe Wheezing Verified 12/09/22 10:17 Thiazides Allergy Severe wheezing Verified 12/09/22 10:17 alendronate sodium Allergy Intermediate Wheezing, Verified 12/09/22 10:17 shortness of breath. ibandronate sodium Allergy Intermediate trouble Verified 12/09/22 10:17 [From Maria Fernanda] swallowing red dye Allergy Intermediate Hives Verified 12/09/22 10:17 simvastatin Allergy Intermediate Muscle Verified 12/09/22 10:17 pain. morphine AdvReac Severe Confusion Verified 12/09/22 10:17 ezetimibe AdvReac Intermediate Muscle Verified 12/09/22 10:17 pain. erythromycin base AdvReac Mild Nausea Verified 12/09/22 10:17 metoprolol AdvReac Unknown must be Verified 12/09/22 10:18 caraco brand Home Medications Medication Instructions Recorded Confirmed Type cyanocobalamin (vitamin B-12) 1,000 mcg PO [id number] 01/13/21 11/28/23 History 1,000 mcg tablet (Vitamin B-12) latanoprost (PF) 0.005 % eye drops 1 drp OPB HS 01/13/21 11/28/23 History lorazepam 0.5 mg tablet 0.5 mg PO TID PRN Anxiety 05/21/21 11/28/23 History Oxygen Home 06/18/21 11/28/23 History acetaminophen 500 mg tablet 500 mg PO QID PRN Pain 06/18/21 11/28/23 History (Tylenol Extra Strength) denosumab 60 mg/mL subcutaneous 60 mg subcut UD 06/18/21 11/28/23 History syringe (Prolia) cholecalciferol (vitamin D3) 25 25 mcg PO QAM 06/16/22 11/28/23 History mcg (1,000 unit) capsule (Vitamin D3) duloxetine 30 mg capsule,delayed 30 mg PO QAM 06/16/22 11/28/23 History release metoprolol succinate 100 mg 100 mg PO BID 06/16/22 11/28/23 History tablet,extended release 24 hr omeprazole 20 mg capsule,delayed 20 mg PO QAM 06/16/22 11/28/23 History release atorvastatin 40 mg tablet 40 mg PO HS 12/01/22 11/28/23 History sennosides 8.6 mg-docusate sodium 2 tab-cap PO HS PRN Constipation 05/27/23 11/28/23 History 50 mg capsule (Senna Plus) digoxin 125 mcg (0.125 mg) tablet 0.125 mg PO MoWeFr@0900 #30 tabs 06/16/23 11/28/23 Rx (Digitek) magnesium chloride 70 mg 70 mg PO DAILY #10 tabs 06/16/23 11/28/23 Rx (magnesium chloride) tablet,delayed release apixaban 2.5 mg tablet (Eliquis) 2.5 mg PO BID 11/28/23 11/28/23 History potassium chloride 20 mEq 10 meq PO DAILY 11/28/23 11/28/23 History tablet,extended release sulfamethoxazole 800 1 tab PO BID 11/28/23 11/28/23 History mg-trimethoprim 160 mg tablet torsemide 20 mg tablet 15 mg PO QAM 11/28/23 11/28/23 History Past Med/Surg History Problem List (Updated 11/28/23 @ 14:18 by Krupa Payton MD) Ambulatory dysfunction (Acute) Fracture of metatarsal of right foot, closed (Acute) Fall from standing (Acute) Hyponatremia VINITA (acute kidney injury) Hypomagnesemia (Acute) Hypoxia (Acute) MARTI (obstructive sleep apnea) Electrolyte and fluid disorder H/O colectomy Weakness (Acute) Abdominal wall hematoma (Acute) 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) Permanent atrial fibrillation (Acute) Subtherapeutic anticoagulation Chronic combined systolic and diastolic heart failure Encounter for pre-operative examination Anemia (Acute) Deep vein thrombosis (DVT) of right lower extremity (Acute) s/p hemicolectomy 04/27/21 Abnormal nuclear stress test Normal cardic catheterization in Mar 2020 Allergy to iodinated contrast 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 Butler Paroxysmal atrial fibrillation Chronic diastolic heart failure Medical History Hx of basal cell carcinoma Superficial thrombophlebitis posterior right knee - monitoring with PCP currently. History of ganglion cyst NSVT (nonsustained ventricular tachycardia) pt unsure of details C. difficile diarrhea s/p hemicolectomy 04/2021 - no problems since. Chronic anticoagulation Pulmonary emboli pt denies -> states only had a DVT Venous insufficiency Closed fracture of facial bone Mitral valve disease Degenerative disc disease, lumbar Osteoporosis Frequent falls last fall>a couple months ago, using cane Osteoarthritis GERD (gastroesophageal reflux disease) Glaucoma Myocardial Infarction (~2005) follows with Poli Zepeda PA-C @ [facility]>2005 or 2006? Cardiac murmur History of COVID-19 diagnosed 02/2020 @ [facility]--fever, headache, cough, loss of taste/smell--no issues now Surgical History H/O colonoscopy with polypectomy H/O vein stripping Left leg History of esophagogastroduodenoscopy (EGD) Status post subtotal parathyroidectomy 2008 R inferior adenoma History of partial hysterectomy History of dilatation and curettage History of facial surgery metal plate under left eye/left cheek S/P excision of lipoma History of arthroscopy of left knee History of colonoscopy History of tooth extraction all teeth History of parathyroidectomy partial @ [facility] History of bilateral cataract extraction History of cardiac cath 2005 with 1 stent placed @ [place] Family History Mother , 66yo Lymphoma Father Medical history unknown Brother Accident Brother Lung cancer Smoker Diabetes Hypertension Sister Heart disease Heart surgery Sister No problems noted. Sister Endometrial cancer Thyroid disease Sister Overdose Son COPD (chronic obstructive pulmonary disease) Diabetes Myocardial infarction Hypertension Son No problems noted. Son Throat cancer Hypertension Daughter Atrial fibrillation Daughter No problems noted. Other Cancer No family history of adverse response to anesthesia Social History Smoking Status: Never smoker Second Hand Exposure: No; Do You Dip or Chew Tobacco: No; Hx Alcohol Use: No Hx Substance Use: No Preferred Language: Cambodian Communication Ability: Effective Visual Impairment: No Limitations Hearing Ability: Normal Global Regulatory Lead Required: No Beliefs That Will Affect Care: None marital status: / Current Living Situation: Alone Current Living Situation Comment: lives in apartment current occupational status: retired current occupation: [employer] x 18 yrs How many Children do You have: 5 Feels Safe at Home: Yes Diet: regular caffeine: Yes (1 cup/day) during the past year weight has: remained stable Assistive Devices: Oxygen - at Night and Walker Review of Systems Review of Systems: Constitutional: No fever, sweats or chills Eyes: No diplopia, no worsening or blurred vision ENT: normal hearing, no trouble swallowing Respiratory: No cough, sputum, dyspnea at rest or on exertion Cardiovascular: No chest pain, tightness or palpitations Abdomen: No pain, nausea, vomiting, diarrhea or constipation, Last BM was yesterday on 11/26 Musculoskeletal: R foot pain with movement, chronic bilateral knee joint pain, no calf pain, swelling is well controlled with torsemide Neurologic: No weakness, numbness/tingling, Uses a walker for ambulation assistance Psychiatric: No anxiety or depression Skin: No rash or itch Physical Exam Physical Exam: General: awake, alert, no apparent distress, elderly white female Head: Normocephalic, atraumatic ENT: PERRL, EOMI, no pharyngeal exudate, mucous membranes moist Chest: Clear to auscultation, on room air, no adventitious breath sounds Cardiac: + Irregularly irregular, + loud ARISTEO, no JVD, normal peripheral pulses, good capillary refill Abdominal: NABS x 4 quadrants, soft, nondistended, nontender to palpation, no rebound or guarding Extremities: RLE in stabilizing boot, normal left side peripheral pulses, + LLE varicose veins, no peripheral edema or erythema, calfs nontender to palpation Psych: Normal mood and affect Neuro: AAO x 3, strength intact bilaterally and rated 5/5, no motor deficits, speech is clear, no peripheral sensory deficits Results & Data Results & Data Vital Signs (Past 12 Hours) Vital Signs Temp Pulse Pulse Resp BP BP Pulse Ox 11/28/23 14:08 79 21 155/121 H 96 11/28/23 13:45 73 21 153/88 H 95 11/28/23 12:42 66 16 148/86 H 95 11/28/23 12:30 148/86 H 11/28/23 12:30 148/86 H 11/28/23 12:30 148/86 H 11/28/23 12:30 69 16 94 11/28/23 12:21 65 17 94 11/28/23 12:15 71 18 94 11/28/23 12:00 67 17 165/93 H 95 11/28/23 12:00 165/93 H 11/28/23 12:00 165/93 H 11/28/23 12:00 66 22 96 11/28/23 12:00 155/98 H 96 11/28/23 11:31 68 20 148/102 H 11/28/23 10:33 67 11/28/23 10:23 11/28/23 10:16 36.8 C 82 20 150/90 H 98 O2 Del Method 11/28/23 14:08 11/28/23 13:45 Room Air 11/28/23 12:42 11/28/23 12:30 11/28/23 12:30 11/28/23 12:30 11/28/23 12:30 11/28/23 12:21 11/28/23 12:15 11/28/23 12:00 11/28/23 12:00 11/28/23 12:00 11/28/23 12:00 Room Air 11/28/23 12:00 Room Air 11/28/23 11:31 Room Air 11/28/23 10:33 11/28/23 10:23 Room Air 11/28/23 10:16 Room Air Laboratory Results 11/28/23 10:32 WBC 5.58 RBC 4.16 L Hgb 13.1 Hct 40.9 MCV 98.3 MCH 31.5 MCHC 32.0 RDW Std Deviation 50.7 H RDW Coeff of Nicholas 13.9 Plt Count 191 MPV 9.1 L Immature Gran % (Auto) 0.7 Neut % (Auto) 58.0 Lymph % (Auto) 25.4 [place] % (Auto) 11.6 Eos % (Auto) 3.2 Baso % (Auto) 1.1 Neut # (Auto) 3.23 Lymph # (Auto) 1.42 [place] # (Auto) 0.65 H Eos # (Auto) 0.18 Baso # (Auto) 0.06 Immature Gran # (Auto) 0.04 PT 10.9 INR 1.0 APTT 26 PTT Ratio 1.0 Sodium 136 Potassium 4.7 Chloride 102 Carbon Dioxide 29 Anion Gap 5 BUN 33 H Creatinine 1.79 H Est Cr Clr Drug Dosing 24.6 Est GFR ( Amer) 29.2 Est GFR (Non-Af Amer) 25.2 BUN/Creatinine Ratio 18.4 Glucose 96 Calcium 11.2 H Total Bilirubin 0.7 AST 15 ALT 15 Alkaline Phosphatase 51 Total Protein 7.1 Albumin 4.2 Globulin 2.9 Albumin/Globulin Ratio 1.4 Diagnostic Findings Foot X-Ray 11/28/23 10:14 XR foot RT min 3V routine CLINICAL HISTORY: Foot trauma, no prior imaging TECHNIQUE: 3 views of the right foot were obtained. Comparison: None available at the time of this dictation. FINDINGS: Acute fractures are seen at the base of the metatarsals. The fourth and fifth metatarsal fractures appear comminuted. Bones are demineralized. Degenerative changes are seen. Soft tissue swelling is seen about the foot. IMPRESSION: Fractures throughout the bases of all 5 metatarsals, some of which appear comminuted. Lisfranc injury cannot be entirely excluded within the limits of radiographic examination. ACT 112: Negative or not required by law. Electronically signed by: Brian Lynn M.D. 11/28/2023 10:25 AM Chest X-Ray 11/28/23 10:32 XR chest 1V portable CLINICAL HISTORY: trauma TECHNIQUE: Single frontal radiograph of the chest was obtained. Comparison: Comparison is made to chest radiograph 06/14/2023 FINDINGS: An implanted pacemaker is seen. Calcified aortic knob is seen. The lungs are clear. No evidence of pleural effusion or pneumothorax. IMPRESSION: No acute chest disease. ACT 112: Negative or not required by law. Electronically signed by: Brian Lynn M.D. 11/28/2023 11:[address] 11/28/23 10:43 CT cervical spine wo con CT DOSE: 1034.47 mGy.cm CLINICAL HISTORY: 88 years-old Female with fall from standing; on eliquis. Acute neck pain status post trauma COMPARISON: Head CT of same day TECHNIQUE: Multiple axial CT images of the cervical spine were obtained without contrast. A dose lowering technique was utilized adhering to the principles of ALARA. FINDINGS: Demineralized appearance of the bones. Moderate to advanced multilevel intervertebral disc space narrowing, spondylitic spurring and facet arthrosis. Subcentimeter sclerotic focus involving the spinous process of C2 suggestive of a probable bone island. Partially calcified pannus posterior to the dens. The cervical soft tissues appear unremarkable. Mosaic attenuation with ground glass densities of the lung apices suggestive of atelectasis with air trapping. Partially imaged left subclavian leads. IMPRESSION: No acute cervical spine fracture or subluxation identified. ACT 112: Negative or not required by law. The above report was generated using voice recognition software. It may contain grammatical, syntax or spelling errors. Electronically signed by: Jose Cody M.D. 11/28/2023 11:[address] 11/28/23 10:43 CT OF THE HEAD WITHOUT CONTRAST CLINICAL HISTORY: fall from standing; on eliquis COMPARISON STUDY: Head CT June 05, 2023. TECHNIQUE: Helical axial images of the head were obtained without IV contrast. Automated exposure control was utilized for the study. A dose lowering technique was utilized adhering to the principles of ALARA. FINDINGS: No acute intracranial hemorrhage, midline shift or mass effect is present. The ventricular system is unremarkable. The basal cisterns are patent. White matter hypodensities are unchanged and favor small vessel disease. No extra-axial collections are present. There are no findings to suggest acute dural sinus thrombosis or acute territorial infarct. There are no calvarial fractures. Left orbital internal fixations are intact. IMPRESSION: 1. No acute intracranial findings. 2. No calvarial fractures. ACT 112: Negative or not required by law. Electronically signed by: Ramon Don M.D. 11/28/2023 11:37 AM ECG Additional Comments: -Reviewed personally, ventricular paced rhythm, prolonged QTc 504 Code Status & VTE Plan Code Status Full code - discussed with pt at bedside (7) Deep vein thrombosis (DVT) of right lower extremity Affected thrombotic vein of extremity: unspecified vein of extremity Chronicity: acute Qualified Code(s): I82.401 - Acute embolism and thrombosis of unspecified deep veins of right lower extremity
--- OUTSIDE RECORDS SUMMARY | 2023-11-28 14:31 | External Medical Summary | Summary of Care ---
Author Name Unknown Organization [facility] Address [address] [place] [address] Phone [phone] Care Team Providers Care Business Banking Sales Assistant Name Role Phone Maxwell Fregoso MD Primary Care Provide r Reason for Visit * Reason Comments eRx-Medication Refill Encounter Details Date Type Department Care Team (Late st Contact Info) Description 11/24/2023 Refill Family Medicine [address] [place] [phone] Maxwell Fregoso MD [address] [place] [address] [place] [address] Allergies Active Allergy Reactions Criticality Noted Date Comments Alendronate Sodium Wheezing High 12/15/2007 Wheezing,sob Amiodarone 04/14/2018 SOB Ibandronate Sodium Other (Please comment) Medium 06/05 Trouble swollowing Erythromycin Nausea/vomiting Low Upset stomach Iodinated Contrast Media Ren[place]30%--sneeze? Dye Metoprolol Tartrate Generic Lopressor/certain brand/must be [employer] brand Morphine And Codeine Psych complications High Confusion Red Dye #40 (Allura Red) Hives 11/22/2019 Thiazide-Type Diuretics Wheezing High Tenoretic--wheezing Ezetimibe Other (Please comment) Medium 02/04/2009 Muscle pain Simvastatin Other (Please comment) Medium 02/04/2009 Muscle pain documented as of this encounter (statuses as of 11/25/2023) Medications Medication Sig Dispensed Refills Start Date End Date Status Acetaminophen 325 MG Oral Tablet (Tylenol) Take by mouth 2 Tablets every 4 hours as needed for Fever >38C(100.5F), Pain, Mild, Pain, Moderate or Pain, Severe. 100 Tablet 1 2021 Active Atorvastatin Calcium 40 MG Oral Tablet (Lipitor)Indicati ons:Atheroscleros is of mentasta coronary artery of mentasta heart without angina pectoris,Dyslipid emia, goal LDL below 70 Take 1 Tablet by mouth at bedtime. 90 Tablet 3 07/06/2023 Active Cholecalciferol 25 MCG (1000 UT) Oral CapsuleIndication s:Senile osteoporosis Take 2 Capsules by mouth in the morning. 180 Capsule 1 07/06/2023 Active DULoxetine HCl 30 MG Oral Capsule Delayed Release Particles (Cymbalta)Indicat ions:Moderate episode of recurrent major depressive disorder (HCC) Take 1 Capsule by mouth in the morning. In the morning.. 90 Capsule 3 07/06/2023 Active Omeprazole 20 MG Oral Capsule Delayed Release (PriLOSEC)Indicat ions:Gastro-esoph ageal reflux disease without esophagitis Take 1 Capsule by mouth in the morning. In the morning.. 90 Capsule 1 07/06/2023 Active Vitamin B-12 1000 MCG Oral Tablet (Cyanocobalamin)I ndications:B12 deficiency TAKE 1 TABLET BY MOUTH ON TUESDAY, TUESDAY AND TUESDAY 30 Tablet 11 07/06/2023 Active LORazepam 0.5 MG Oral Tablet (Ativan)Indicatio ns:Anxiety Take 0.5 Tablets by mouth daily as needed for Anxiety. 15 Tablet 08/29/2023 Active Bladder Control Pads Ex Absorb Use as directed. Active Prolia 60 MG/ML Subcutaneous Solution Prefilled Syringe (Denosumab) Inject 60 mg under the skin once. Active Digoxin 125 MCG Oral Tablet (Lanoxin) Take 1 Tablet by mouth once a day on Tuesday, Tuesday, and Tuesday only. Active Latanoprost 0.005 % Ophthalmic Solution (Xalatan) 1 Drop at bedtime. Active Magnesium Chloride 64 MG Oral Tablet Delayed Release (Mag-64) Take 1 Tablet by mouth in the morning. Active oxygen IN GAS Use 2 L/min(Oxygen) as directed at bedtime. Active Torsemide 10 MG Oral Tablet (Demadex) Take 1 Tablet by mouth in the morning. Active Torsemide 5 MG Oral Tablet (Demadex) Take 1 Tablet by mouth in the morning. Active Apixaban 2.5 MG Oral Tablet (Eliquis) Take 1 Tablet by mouth in the morning and 1 Tablet before bedtime. 60 Tablet 2 09/30/2023 Active Metoprolol Succinate ER 100 MG Oral Tablet Extended Release 24 Hour (toPROL XL) Take 1 Tablet by mouth in the morning and 1 Tablet before bedtime. 180 Tablet 10/03/2023 Active Senexon-S 8.6-50 MG Oral Tablet (senna-docusate) TAKE TWO TABLETS AT BEDTIME 180 Tablet 1 10/26/2023 Active Sulfamethoxazole- Trimethoprim 800-160 MG Oral Tablet (Bactrim DS)Indications:Ce llulitis of left lower extremity Take 1 Tablet by mouth in the morning and 1 Tablet before bedtime. Do all this for 7 days. Until gone. 14 Tablet 11/22/2023 Active Potassium Chloride ER 10 MEQ Oral Capsule Extended ReleaseIndication s:Chronic diastolic heart failure (HCC) TAKE ONE CAPSULE IN THE MORNING 30 Capsule 2 11/23/2023 Active Ferrous Sulfate 325 (65 Fe) MG Oral Tablet (FeroSul) Take 1 Tablet by mouth every other day. 14 Tablet 5 11/25/2023 Active FeroSul 325 (65 Fe) MG Oral Tablet Take 1 Tablet by mouth every other day. 09/20/2023 4 Discontinued documented as of this encounter (statuses as of 11/25/2023) Active Problems Problem Noted Date Diagnosed Date History of hemicolectomy 09/21/2023 Glaucoma 09/20/2023 DVT, lower extremity, distal, acute, right 09/19 Severe tricuspid regurgitation 06/20/2023 Full code status 06/20/2023 Hyperparathyroidism 03/17/2023 Essential (primary) hypertension 03/17/2023 Hypertensive [...] lumbosacral intervertebral disc 02/04/2009 Coronary atherosclerosis of mentasta coronary luis ry 02/24/2005 Senile osteoporosis 05/14/2003 Carpal tunnel syndrome 04/23/2003 Moderate mitral regurgitation GENERAL OSTEOARTHROSIS Gastroesophageal reflux disease without esophagi tis Vitamin D deficiency Hyperparathyroidism, primary documented as of this encounter (statuses as of 11/25/2023) Resolved Problems Problem Noted Date Diagnosed Date Resolved Date Retroperitoneal bleed 09/21/20232023 Stage 3 chronic kidney disease 03/17/2023 04/14/2023 [...] protocol Thoracic aorta atherosclerosis 11/06/2019 03/17/2023 Acute blood loss anemia 10/22/201908/30 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 05/25/201801/09 Overview: Per CKD protocol MEDICATION USE AGREEMENT 02/08/201704/2019 Atrial fibrillation with RVR 07/30/2016 07/15/2017 Hypotension due to hypovolemia 01/15/2016 09/28/2023 Essential hypertension with goal blood pressure less [...] 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 LOC PRIM [id number] 02/14/2002/04/2007 Other seborrheic keratosis 10/31/2001 0 06/06/2007 neurofibroma [...] as of this encounter (statuses as of 11/25/2023) Immunizations Name Administration Dates Next Due Pneumococcal Conjugate Vacc, 13 Valent (Prevnar) 02/08/2017 Pneumococcal Polysaccharide PPV23 (Pneumovax) Seasonal Influenza, Trivalen t, (IIV3), with Preserv, (Fluzone) 03/13/2012 TD - Tetanus/Diptheria (ADULT) 12/30/2009 TD, Preservative Free 12/30/2009 documented as of this encounter Social History Tobacco Use Types Packs/Day Years Used Date Smoking Tobacco: Never Smokeless Tobacco: Never Alcohol Use Standard Drinks/Week Comments Not Currently 0 (1 standard drink = 0.6 oz pur e alcohol) PHQ-2 Answer Date Recorded PHQ Adult Total Score 0 08/25/2023 Hunger Vital Sign Answer Date Recorded Within the past 12 months, y ou worried that your food would run out before you got the money to buy more. Never true 09/07/19 24 Within the past 12 months, t he food you bought just didn't last and you didn't have money to get more. Never true 09/07/2023 Childcare Answer Date Recorded Do you feel overwhelmed with taking care of a child, family member or friend? No 09/07/2023 Does your family need help f inding childcare? (Household - for ages 0-17 years) Not on file 09/07/2023 Clothing Answer Date Recorded Have you been unable to get clothing when it was really needed? No 09/07/2023 Is your family able to get c lothes or diapers when needed? (Household - for ages 0-17 years) Not on file 09/07/2023 Personal Safety Answer Date Recorded Do you feel unsafe or have concerns for your saf ety? No 09/21/2023 Do you have concerns for you r family's safety? (Household - for ages 0-17 years) Not on file 09/21/2023 Utilities Answer Date Recorded Do you have trouble paying y our heating, water, or electric bill? No 09/21/2023 Is your family able to pay t he heat, water, or electric bill? (Household - for ages 0-17 years) Not on file 09/21/2023 Does your family have access to good internet? (Household - for ages 0-17 years) Not on file 09/21/2023 Employment Status Answer Date Recorded Are you unemployed or without regular income? No 09/07/2023 Does the household have a re gular source of income? (Household - for ages 0-17 years) Not on file 09/07/2023 Social Connections Answer Date Recorded How often do you feel lonely or isolated from th ose around you? Rarely 09/07/2023 Financial Resource Strain Answer Date R ecorded Do you have any trouble payi ng for your medications, or do you think you might in the future? No 09/07/2023 Does your family have troubl e paying for medicine? (Household - for ages 0-17 years) Not on file 09/07/2023 Transportation Needs Answer Date Record ed Do you have trouble getting a ride to medical visits or work? (Adult - for ages 18 years and over) Not on file 09/21/2023 Does your family have a hard time getting a ride to doctors visits? (Household - for ages 0-17 years) Not on file 09/21/2023 Has lack of transportation k ept you from medical appointments, meetings, work, or from getting things needed for daily living? Check all that apply. No 09/21/2023 Do you (or your family) have trouble finding or paying for a ride (transportation)? (Household - for ages 0-17 years) Not on file 09/21/2023 Housing Stability Answer Date Recorded Do you currently live in a s helter or have no steady place to sleep at night? No 09/21/2023 Do you think you are at risk of becoming homeless? (Adult - for ages 18 years and over) Not on file 09/21/2023 Does your family worry about paying for your home or becoming homeless? (Household - for ages 0-17 years) Not on file 0 09/21/2023 Are you homeless or worried that you might be in the future? No 09/21/2023 Are you (or your family) ji eless or worried that you might be in the future? (Household - for ages 0-17 years) Not on file Food Insecurity Answer Date Recorded Do you need food for this week? No 09/21/2023 Are you able to get enough f ood for your family? (Household - for ages 0-17 years) Not on file 09/21/2023 Does your family need food t his week? (Household - for ages 0-17 years) Not on file 09/21/2023 Do you always have enough fo od for your family? (Household - for ages 0-17 years) Not on file 09/21/2023 Sex and Gender Information Value Date Recorded [...] you have serious difficulty h earing? No 09/21/2023 Are you blind or do you have serious difficulty seeing, even when wearing glasses? No 09/21/2023 Do you have serious difficul ty walking or climbing stairs? (5 years old or older) Yes 09/21/2023 Do you have difficulty dress ing or bathing? (5 years old or older) No 09/21/2023 Because of a physical, menta l, or emotional condition, do you have difficulty doing errands alone such as visiting a doctor s office or shopping? (15 years old or older) No 09/21/19 24 Cognitive Status Response Date of Assessm ent Because of a physical, menta l, or emotional condition, do you have serious difficulty concentrating, remembering, or making decisions? (5 years old or older) No 09/21/2023 documented as of this encounter Miscellaneous Notes * Telephone Encounter - Maxwell Fregoso MD - 11/25/2023 2:36 PM EDT Signed Prescriptions: Disp Refills Ferrous Sulfate 325 (65 Fe) MG Oral Tablet*14 Tab*5 Sig: Take 1 Tablet by mouth every other day. Authorizing Provider: MAXWELL FREGOSO * Telephone Encounter - Kian Sharma [facility] - 11/25/2023 2:35 PM EDTPending Prescriptions: Disp Refills Ferrous Sulfate 325 (65 Fe) MG Oral Tablet*14 Tab*5 Sig: Take 1 Tablet by mouth every other day. * Telephone Encounter - Kian Sharma [facility] - 11/25/2023 2:32 PM EDT Pharmacists cannot authorize refills for meds listed as "historical" in chart. Please approve if appropriate. Pending Prescriptions: Disp Refills Ferrous Sulfate 325 (65 Fe) MG Oral Table*14 Tab*5 Sig: Take 1 Tablet by mouth every other day. Last Visit: 11/16/2023 (in office), Visit date not found (telemedicine) Next Visit: 06/06/2024 If no future appointments scheduled, and last appointment is greater than a year ago, please schedule patient for a follow-up appointment Last date the medication was ordered: Pharmacy: [facility], [address] [place] Is this request for a controlled substance? No Urine Drug Screen:No results found. However, due to the size of the patient record, not all encounters were searched. Please check Results Review for a complete set of results. Patient Phone Numbers Labs: Lab Results Component Value Date/Time CREAT 1.5 (H) 10/28/2023 02:55 PM CREAT 1.5 (H) 09/21/2023 03:22 AM CREAT 1.0 01/30/2020 01:01 PM POTASSIUM 4.9 10/28/2023 02:55 PM POTASSIUM 4.7 09/21/2023 03:22 AM POTASSIUM 3.8 01/30/2020 01:01 PM TSH 2.53 07/19/2023 09:54 AM TSH 1.92 10/31/2019 01:05 PM LDL 60 03/17/2023 01:41 PM LDL 82 10/31/2019 01:05 PM LDL NOT APPLICABLE 10/31/2019 01:05 PM ALT 15 09/21/2023 03:25 AM ALT 26 10/31/2019 01:05 PM Mayito Pearson.Ph. Clinical Pharmacist [facility] [address] [place] [address], [address] [place] [address] MC: [phone] 11/25/2023,2:34 PM documented in this encounter Plan of Treatment Upcoming Encounters Date Type Department Care Team (Late st Contact Info) Description 12/20/2023 11:00 AM EDT Office Visit Orthopaedics [facility] [address] [place] [address] Kian Travis, DO [address] [place] [address] 12/26/2023 2:30 PM EDT Nurse Only Rheumatology [address] [place] [phone] [place], Nurse Rheum [address] [place] [phone] 01/06/2024 2:00 PM EST Office Visit Nephrology [address] [place] [address] Charlotte Cope PA-C [address] [facility] [place] [address] 02/02/2024 2:30 PM EST Office Visit Hematology/Oncology [facility] [address] [place] [phone] Mirna Camp CRNP [address] [place] [address] 02/14/2024 1:30 PM EST [facility] [place] [address] Jane Aslhey CRNP [address] [facility] [place] [address] 05/15/2024 1:00 PM EDT Office Visit Nephrology [address] [place] [address] Charlotte Cope PA-C [address] [place] [address] 06/06/2024 3:20 PM EDT Office Visit Family Medicine [address] [place] [phone] Maxwell Fregoso MD [address] [place] [address] [place] [phone] Health Maintenance Due Date Last Done Comments Adult Wellness Visit 05/30/2021 05/30/2020 DXA Scan 10/22/2023 10/21/2021, 09/29, 08/28/2018, Additional history exists COVID-19 Vaccine ( season) 2023 CKD PHOS USE SMARTSET 57799 08/16/202407/29, 05/12/2023, 11/05/2022, Additional history exists Albumin/Creatinine Ratio 08/24/2024 024, 07/19/2022, 04/06/2021, Additional history exists Depression Monitoring 08/24/2024 08/25/2023 DIG LEVEL FOR MEDICATION MONITORING YEARLY 09/20/2024 09/21/2023, 06/22/2023, 04/29/2023, Additional history exists CKD HGB USE SMARTSET 66240 10/27/202410/27, 10/28/2023, 09/28/2023, Additional history exists DTap/Tdap Vaccines (2 - Td or Tdap) 12/31/2029 01/01/2020 (Declined), 12/30/2009, 12/30/2009, Additional history exists Pneumococcal Vaccine: 65+ Years Completed 02/08/2017, 02/23/2006 VITAMIN D LEVEL ONCE IN A LIFETIME-USE SMARTSET# [id number] Completed 08/17/2023, 06/27/2023, 06/22/2023, Additional history exists HPV (Gardasil) Vaccine Aged Out No lo nger eligible based on patient's age to complete this topic Hepatitis B Vaccine Aged Out No longe r eligible based on patient's age to complete this topic MENINGOCOCCAL (MENACTRA/MENVEO) Aged Out No longer eligible based on patient's age to complete this topic Zoster Vaccines Discontinued documented as of this encounter Medical Devices Implanted Type Area Hand Therapist Device Identifier Shelf Expiration Date Model / Serial / Lot Lead Novus Bipolar 58cm - [id number] - [id number] Implanted:Qty: 1 on 04/11/2017 by Elda Patterson DO at OR [facility] Left: Heart [employer] : [facility] 12/18/2018 5076-58 / [id number] / Description:RIGHT VENTRICLE LEAD Lead Novus Bipolar 52cm - [id number] - [id number] Implanted:Qty: 1 on 04/11/2017 by Elda Patterson DO at OR [facility] Left: Heart [employer] : [facility] 12/24/2018 5076-52 / [id number] / Description:RIGHT ATRIAL ROCKY D Pacer Advisa Dr Dorsey - [id number] - [id number] Implanted:Qty: 1 on 04/11/2017 by Elda Patterson DO at OR [facility] Left: Chest [employer] 08/25/2018 [id number] / [id number] / documented as of this encounter Advance Directives Documents on File Type Date Recorded 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 FOR LIFE-SUSTAINING TREATMENT * Full Code (Latest Code Status on File) Date Activated Date Inactivated Comments 09/21/2023 4:05 AM 09/28/2023 11:36 PM This order reflects the patients wishes and were consensually agreed upon. Question Answer Comments Discussion of Advance Direct nisreen occurred with: Not Discussed due to patient's condition * Full Code Date Activated Date Inactivated Comments 07/02/2008 9:35 AM 07/03/2008 5:40 PM Care Teams Business Banking Sales Assistant Relationship Specialty Start Date End Date Maxwell Fregoso MD [address] [place] [address] [place] [address] PCP - General Family Medicine 12/03/22 documented as of this encounter
--- OUTSIDE RECORDS SUMMARY | 2023-11-28 14:31 | External Medical Summary | Summary of Care ---
Author Name Unknown Organization [facility] Address [address] [place] [address] Phone [phone] Care Team Providers Care Tank House Operator Name Role Phone Cathy Fregoso MD Primary Care Provide r Reason for Visit * Reason Comments eRx-Medication Refill Encounter Details Date Type Department Care Team (Late st Contact Info) Description 11/22/2023 Refill Family Medicine [address] [place] [address] Cathy Fregoso MD [address] [place] [address] [place], [place] [id number] Chronic diastolic heart failure (HCC) Allergies Active [...] as of this encounter (statuses as of 11/23/2023) Medications Medication Sig Dispensed Refills Start Date End Date Status Acetaminophen 325 MG Oral Tablet (Tylenol) Take by mouth 2 Tablets every 4 hours as needed for Fever >38C(100.5F), Pain, Mild, Pain, Moderate or Pain, Severe. 100 Tablet 1 2021 Active Atorvastatin Calcium 40 MG Oral Tablet (Lipitor)Indicati ons:Atheroscleros [place] of [place] coronary artery of [place] heart without angina pectoris,Dyslipid emia, goal LDL [...] needed for Anxiety. 15 Tablet 08/29/2023 Active FeroSul 325 (65 Fe) MG Oral Tablet Take 1 Tablet by mouth every other day. 09/20/2023 Active Bladder Control Pads Ex Absorb Use [...] THE MORNING 30 Capsule 2 11/23/2023 Active Potassium Chloride ER 10 MEQ Oral Capsule Extended ReleaseIndication s:Chronic diastolic heart failure (HCC) TAKE ONE CAPSULE BY MOUTH IN THE MORNING 30 Capsule 1 09/30/2023 4 Discontinued documented as of this encounter (statuses as of 11/23/2023) Active Problems Problem Noted Date Diagnosed Date [...] lumbosacral intervertebral disc 02/04/2009 Coronary atherosclerosis of [place] coronary luis ry 02/24/2005 Senile osteoporosis 05/14/2003 Carpal tunnel syndrome 04/23/2003 Moderate mitral regurgitation GENERAL OSTEOARTHROSIS Gastroesophageal reflux disease without esophagi tis Vitamin D deficiency Hyperparathyroidism, primary documented as of this encounter (statuses as of 11/23/2023) Resolved Problems Problem Noted Date Diagnosed Date [...] atherosclerosis 11/06/2019 03/17/2023 Acute blood loss anemia 10/22/2019/02/2023 Hypertensive heart and kidne y disease with [...] 07/02/2008 10/02/19 Overview: RLP Parathyroid adenoma resection Bnejy Gonzalez DO July 02, 2008 ICD-10 update of inactive term Slow transit constipation 02/09/2008 Postmenopausal atrophic vaginitis 02/09/2008 07/15/2017 Hypercalcemia 07/14/2005 05/22/2007 PVC (premature ventricular contraction) 05/26/2005 04/21/2017 Ischemic cardiomyopathy 02/25/200507/29 ADVANCE DIRECTIVE INFORMATION 02/24/2005 02/08/2017 Overview: No, Advance Directive brochure given to patient at prior appointment. OSTEOARTHROS NOS-L-LEG 05/26/200406/20 TENOSYNOV HAND-WRIST NEC 04/23/2003 CERVICAL 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 LOC PRIM [id number] 02/14/200205/30 Other seborrheic keratosis 10/31/2001 0 06/06/2007 [...] as of this encounter (statuses as of 11/23/2023) Immunizations Name Administration Dates Next Due Pneumococcal [...] (15 years old or older) No 09/21/19 Cognitive Status Response Date of Assessm ent Because of a physical, menta l, or emotional condition, do you have serious difficulty concentrating, remembering, or making decisions? (5 years old or older) No 09/21/2023 documented as of this encounter Miscellaneous Notes * Telephone Encounter - [place] [facility] - 11/23/2023 9:15 PM EDT Signed Prescriptions: Disp Refills Potassium Chloride ER 10 MEQ Oral Capsule *30 Cap*2 Sig: TAKE ONE CAPSULE IN THE MORNINGAuthorizing Provider: Rafal FREGOSO User: [place] documented in this encounter Plan of Treatment Upcoming Encounters Date Type Department Care Team (Late st Contact Info) Description 12/20/2023 11:00 AM EDT Office Visit Orthopaedics [facility] [address] [place] [address] Kian Travis DO [address] [place] [address] 12/26/2023 2:30 PM EDT Nurse Only Rheumatology [address] [place] [phone] [place], Nurse Rheum [address] [place] [phone] 01/06/2024 2:00 PM EST Office Visit Nephrology [address] [place] [address] Charlotte Cope PA-C [address] [facility] [place] [address] 02/02/2024 2:30 PM EST Office Visit Hematology/Oncology [facility] [address] [facility] [place] [phone] [facility] [address] 02/14/2024 1:30 PM EST Office Visit Cardiology, [facility] [address] [place] [address] Jane Ashley [facility] [address] [facility] [phone] 05/15/2024 1:00 PM EDT Office Visit Nephrology [address] [place] [address] Charlotte Cope PA-C [address] [facility] [place] [address] 06/06/2024 3:20 PM EDT Office Visit Family Medicine [address] [place] [phone] Cathy Fregoso MD [address] [place] [address] [place] [address] Health Maintenance Due Date Last Done Comments Adult Wellness Visit 05/30/2021 05/30/2020 DXA Scan 10/22/2023 10/21/2021, 09/29, 08/28/2018, Additional history exists COVID-19 Vaccine ( season) 2023 CKD PHOS USE SMARTSET 44603 08/16/202407/29, 05/12/2023, 11/05/2022, Additional history exists Albumin/Creatinine Ratio 08/24/2024 024, 07/19/2022, 04/06/2021, Additional history exists Depression Monitoring 08/24/2024 08/25/2023 DIG LEVEL FOR MEDICATION MONITORING YEARLY 09/20/2024 09/21/2023, 06/22/2023, 04/29/2023, Additional history exists CKD HGB USE SMARTSET 25311 10/27/202410/27, 10/28/2023, 09/28/2023, Additional history exists DTap/Tdap Vaccines (2 - Td or Tdap) 12/31/2029 01/01/2020 (Declined), 12/30/2009, 12/30/2009, Additional history exists Pneumococcal Vaccine: 65+ Years Completed 02/08/2017, 02/23/2006 VITAMIN D LEVEL ONCE IN A LIFETIME-USE SMARTSET# 10009 Completed 08/17/2023, 06/27/2023, 06/22/2023, Additional history exists [...] this encounter Medical Devices Implanted Type Area Human Resource Intern Device Identifier Shelf Expiration Date Model / Serial / Lot Lead Novus Bipolar 58cm - [id number] - [id number] Implanted:Qty: 1 on 04/11/2017 by Elda Patterson DO at OR [facility] Left: Heart [employer] : CRM 12/18/2018 5076-58 / [id number] / Description:RIGHT VENTRICLE LEAD Lead Novus Bipolar 52cm - [id number] - [id number] Implanted:Qty: 1 on 04/11/2017 by Elda Patterson DO at OR [facility] Left: Heart [employer] : CRM 12/24/2018 5076-52 / [id number] / Description:RIGHT ATRIAL ROCKY D Pacer Advisa Dr Dorsey - [id number] - [id number] Implanted:Qty: 1 on 04/11/2017 by Elda Patterson DO at OR [facility] Left: Chest [employer] 08/25/2018 A2DR01 / [id number] / documented as of this encounter Visit Diagnoses Diagnosis Chronic diastolic heart failure (HCC) Chronic diastolic heart failure documented in this encounter Advance Directives Documents on File Type Date Recorded 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
--- OUTSIDE RECORDS SUMMARY | 2023-11-28 14:31 | External Medical Summary | Summary of Care ---
Author Name Unknown Organization [facility] Address [address] [place] [address] Phone [phone] Care Team Providers Care Service Desk Agent Name Role Phone Cathy Wilburn MD Primary Care Provide r Reason for Visit * Reason Onset Date Comments Home Health 11/14/2023 Encounter Details Date Type Department Care Team (Late st Contact Info) Description 11/14/[address] [phone] Cathy Wilburn MD [address] [place] [address] [place] [address] Home Health Allergies Active Allergy Reactions Criticality Noted Date [...] as of this encounter (statuses as of 11/15/2023) Medications Medication Sig Dispensed Refills Start Date End Date Status Acetaminophen 325 MG Oral Tablet (Tylenol) Take by mouth 2 Tablets every 4 hours as needed for Fever >38C(100.5F), Pain, Mild, Pain, Moderate or Pain, Severe. 100 Tablet 1 2021 Active Atorvastatin Calcium 40 MG Oral Tablet (Lipitor)Indications :Atherosclerosis of [place] coronary artery of [place] heart without angina pectoris,Dyslipidemi a, goal LDL below 70 Take 1 Tablet by mouth at bedtime. 90 Tablet 3 07/06/2023 Active Cholecalciferol 25 MCG (1000 UT) Oral CapsuleIndications:S enile osteoporosis Take 2 Capsules by mouth in [...] 07/06/2023 Active LORazepam 0.5 MG Oral Tablet (Ativan)Indications: Anxiety Take 0.5 Tablets by mouth daily as [...] 2 L/min(Oxygen) as directed at bedtime. Active Potassium Chloride ER 10 MEQ Oral Tablet Extended Release Take 1 Tablet by mouth in the morning. Active Torsemide 10 MG Oral Tablet (Demadex) Take 1 Tablet by mouth in the morning. Active Torsemide 5 MG Oral Tablet (Demadex) Take 1 Tablet by mouth in the morning. Active Potassium Chloride ER 10 MEQ Oral Capsule Extended ReleaseIndications:C hronic diastolic heart failure (HCC) TAKE ONE CAPSULE BY MOUTH IN THE MORNING 30 Capsule 1 09/30/2023 Active Apixaban 2.5 MG Oral Tablet (Eliquis) [...] AT BEDTIME 180 Tablet 1 10/26/2023 Active documented as of this encounter (statuses as of 11/15/2023) Active Problems Problem Noted Date Diagnosed Date [...] lumbosacral intervertebral disc 02/04/2009 Coronary atherosclerosis of [place] coronary luis ry 02/24/2005 Senile osteoporosis 05/14/2003 Carpal tunnel syndrome 04/23/2003 Moderate mitral regurgitation GENERAL OSTEOARTHROSIS Gastroesophageal reflux disease without esophagi tis Vitamin D deficiency Hyperparathyroidism, primary documented as of this encounter (statuses as of 11/15/2023) Resolved Problems Problem Noted Date Diagnosed Date [...] 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 LOC PRIM [id number] 02/14/200205/30 Other seborrheic keratosis 10/31/2001 0 06/06/2007 [...] as of this encounter (statuses as of 11/15/2023) Immunizations Name Administration Dates Next Due Pneumococcal Conjugate Vacc, 13 Valent (Prevnar) 02/08/2017 Pneumococcal Polysaccharide PPV23 (Pneumovax) Seasonal Influenza, Trivalen t, (IIV3), with Preserv, (Fluzone) 03/13/2012 TD - Tetanus/Diptheria (ADULT) 12/30/2009,2002 TD, [...] No 09/07/2023 Does the household have a [facility] source of income? (Household - for ages [...] encounter Miscellaneous Notes * Telephone Encounter - Martha Howe OSA - 11/15/2023 9:45 AM EDT Scheduled, pt aware. * Telephone Encounter - Cathy Wilburn MD - 11/14/2023 8:54 PM EDT Please help pt mikhail a clinic visit for eval * Telephone Encounter - Nely Gonzalez LPN - 11/14/2023 1:48 PM EDT HH Concerns Laury RN, Calling from: Meliza Report/Concerns of: Edema left foot, weight gain Symptoms: see below. Vitals: T 97.8 P 65 RR 18 BP 125/80 SP O2 96% RA Weight 171 lbs Narrative: Laury calling in as she was out to see patient earlier today for HH visit. Patient wore slippers that had too tight of elastic on them which caused +2 pitting edema and an area of redness to her left foot. Laury said they foot was slightly warmer. Patient also reported to have a little bit of weight gain but she did not take her lasix yesterday. Meliza documented in this encounter Plan of Treatment Upcoming Encounters Date Type Department Care Team (Late st Contact Info) Description 11/16/2023 4:20 PM EDT Office Visit Family Medicine [address] [place] [phone] Cathy Wilburn MD [address] [place] [address] [place] [address] 12/20/2023 11:00 AM EDT Office Visit Orthopaedics [facility] [address] [place] [address] Kian Travis, [address] [place] [address] 12/26/2023 2:30 PM EDT Nurse Only Rheumatology [address] [place] [phone] [place], Nurse Rheum [address] [place] [phone] 01/06/2024 2:00 PM EST Office Visit Nephrology [address] [place] [address] Charlotte Cope PA-C [address] [place] [address] 02/02/2024 2:30 PM EST Office Visit Hematology/Oncology [facility] [address] [place] [phone] Mirna Camp CRNP [address] [place] [address] 02/14/2024 1:30 PM EST Office Visit Cardiology, Health system [address] [place] [address] Jane Ashley CRNP [address] [place] [address] 05/15/2024 1:00 PM EDT Office Visit Nephrology [address] [place] [address] Charlotte Cope PA-C [address] [place] [address] 06/06/2024 3:20 PM EDT Office Visit Family Medicine [address] [place] [phone] Cathy Wilburn MD [address] [place] [address] [place] [address] Health Maintenance Due Date Last Done Comments Adult Wellness Visit 05/30/2021 05/30/2020 DXA Scan 10/22/2023 10/21/2021, 09/29, 08/28/2018, Additional history exists COVID-19 Vaccine ( season) 2023 CKD PHOS USE SMARTSET 13378 08/16/202407/29, 05/12/2023, 11/05/2022, Additional history exists Albumin/Creatinine Ratio 08/24/2024 024, 07/19/2022, 04/06/2021, Additional history exists Depression Monitoring 08/24/2024 08/25/2023 DIG LEVEL FOR MEDICATION MONITORING YEARLY 09/20/2024 09/21/2023, 06/22/2023, 04/29/2023, Additional history exists CKD HGB USE SMARTSET 79761 10/27/202410/27, 10/28/2023, 09/28/2023, Additional history exists DTap/Tdap Vaccines (2 - Td or Tdap) 12/31/2029 01/01/2020 (Declined), 12/30/2009, 12/30/2009, Additional history exists Pneumococcal Vaccine: 65+ Years Completed 02/08/2017, 02/23/2006 VITAMIN D LEVEL ONCE IN A LIFETIME-USE SMARTSET# 89444 Completed 08/17/2023, 06/27/2023, 06/22/2023, Additional history exists [...] this encounter Medical Devices Implanted Type Area Bookkeepers Supervisor Device Identifier Shelf Expiration Date Model / Serial / Lot Lead Novus Bipolar 58cm - [id number] - [id number] Implanted:Qty: 1 on 04/11/2017 by Elda Patterson DO at OR [facility] Left: Heart [employer] : [facility] 12/18/2018 5076-58 / [id number] / Description:RIGHT VENTRICLE LEAD Lead Novus Bipolar 52cm - [id number] - [id number] Implanted:Qty: 1 on 04/11/2017 by Elda Patterson DO at OR [facility] Left: Heart [employer] : [facility] 12/24/2018 5076-52 / [id number] / Description:RIGHT ATRIAL ROCKY D Pacer Advisa Dr Dorsey - [id number] - [id number] Implanted:Qty: 1 on 04/11/2017 by Elda Patterson DO at OR 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
--- OUTSIDE RECORDS SUMMARY | 2023-11-28 14:31 | External Medical Summary | Summary of Care ---
Author Name Unknown Organization [facility] Address [address] [place] [address] Phone [phone] Care Team Providers Care Warehouse Delivery Manager Name Role Phone Cathy Wilburn MD Primary Care Provide r Reason for Visit * Reason Onset Date Comments Advice 11/18/2023 Medication issue Encounter Details Date Type Department Care Team (Late st Contact Info) Description 11/18/[address] [place] [address] Cathy Wilubrn MD [address] [place] [address] [place] [address] Advice (Medication issue) Allergies Active Allergy Reactions Criticality Noted Date [...] as of this encounter (statuses as of 11/22/2023) Medications Medication Sig Dispensed Refills Start Date End Date Status Acetaminophen 325 MG Oral Tablet (Tylenol) Take by mouth 2 Tablets every 4 hours as needed for Fever >38C(100.5F), Pain, Mild, Pain, Moderate or Pain, Severe. 100 Tablet 1 2021 Active Atorvastatin Calcium 40 MG Oral Tablet (Lipitor)Indicatio ns:Atherosclerosis of [place] coronary artery of [place] heart without angina pectoris,Dyslipide martin, goal LDL below 70 Take 1 Tablet by mouth at bedtime. 90 Tablet 3 07/06/2023 Active Cholecalciferol 25 MCG (1000 UT) Oral CapsuleIndications :Senile osteoporosis Take 2 Capsules by mouth in [...] 07/06/2023 Active LORazepam 0.5 MG Oral Tablet (Ativan)Indication s:Anxiety Take 0.5 Tablets by mouth daily as [...] Chloride ER 10 MEQ Oral Capsule Extended ReleaseIndications :Chronic diastolic heart failure (HCC) TAKE ONE CAPSULE [...] AT BEDTIME 180 Tablet 1 10/26/2023 Active Sulfamethoxazole-T rimethoprim 800-160 MG Oral Tablet (Bactrim DS)Indications:Maura lulitis of left lower extremity Take 1 Tablet by mouth in the morning and 1 Tablet before bedtime. Do all this for 7 days. Until gone. 14 Tablet 11/22/2023 4 Active Doxycycline Hyclate 100 MG Oral CapsuleIndications :Cellulitis of left lower extremity Take 1 Capsule by mouth in the morning and 1 Capsule before bedtime. Do all this for 7 days. Take for 7 days. 14 Capsule 11/16/2023 Discontinue d(Medicatio n List Clean Up) documented as of this encounter (statuses as of 11/22/2023) Active Problems Problem Noted Date Diagnosed Date [...] disc 02/04/2009 Coronary atherosclerosis of [place] coronary luis ry 02/24/2005 Senile osteoporosis 05/14/2003 Carpal tunnel syndrome 04/23/2003 Moderate mitral regurgitation GENERAL OSTEOARTHROSIS Gastroesophageal reflux disease without esophagi tis Vitamin D deficiency Hyperparathyroidism, primary documented as of this encounter (statuses as of 11/22/2023) Resolved Problems Problem Noted Date Diagnosed Date [...] 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 LOC PRIM [id number] 02/14/200205/30 Other seborrheic keratosis 10/31/2001 0 06/06/2007 [...] as of this encounter (statuses as of 11/22/2023) Immunizations Name Administration Dates Next Due Pneumococcal [...] 09/07/2023 Does the household have a re lar source of income? (Household - for ages [...] Telephone Encounter - Cathy Wilburn MD - 11/22/2023 10:53 AM EDT Will try bactrim * Telephone Encounter - Glenna Olmedo OSA - 11/18/2023 12:59 PM EDT Pt calling asking if provider can prescribe a different Antibiotic for pt. Pt states the Doxycycline is causing her abdominal discomfort along with diarrhea. Please advise. Thank you. documented in this encounter Plan of Treatment Upcoming Encounters Date Type Department Care Team (Late st Contact Info) Description 12/20/2023 11:00 AM EDT Office Visit Orthopaedics [facility] [address] [place] [address] Kian Travis, [address] [place] [address] 12/26/2023 2:30 PM EDT Nurse Only Rheumatology [address] [place] [phone] [place], Nurse Rheum [address] [place] [phone] 01/06/2024 2:00 PM EST Office Visit Nephrology [address] [place] [address] Charlotte Cope PA-C [address] [place] [address] 02/02/2024 2:30 PM EST Office Visit Hematology/Oncology [facility] [address] [place] [phone] Mirna Camp CRNP [address] [place] [phone] 02/14/2024 1:30 PM EST Office Visit Cardiology, [facility] [address] [facility] [place] [address] Jane Ashley CRNP [address] [place] [address] 05/15/2024 1:00 PM EDT Office Visit Nephrology [address] [place] [address] Charlotte Cope PA-C [address] [facility] [place] [address] 06/06/2024 3:20 PM EDT Office Visit Family Medicine [address] [place] [phone] Cathy Wilburn MD [address] [place] [address] [place] [address] Health Maintenance Due Date Last Done Comments Adult Wellness Visit 05/30/2021 05/30/2020 DXA Scan 10/22/2023 10/21/2021, 09/29, 08/28/2018, Additional history exists COVID-19 Vaccine (2023- season) 2023 CKD PHOS USE SMARTSET 29372 08/16/202407/29, 05/12/2023, 11/05/2022, Additional history exists Albumin/Creatinine Ratio 08/24/2024 024, 07/19/2022, 04/06/2021, Additional history exists Depression Monitoring 08/24/2024 08/25/2023 DIG LEVEL FOR MEDICATION MONITORING YEARLY 09/20/2024 09/21/2023, 06/22/2023, 04/29/2023, Additional history exists CKD HGB USE SMARTSET 90533 10/27/202410/27, 10/28/2023, 09/28/2023, Additional history exists DTap/Tdap Vaccines (2 - Td or Tdap) 12/31/2029 01/01/2020 (Declined), 12/30/2009, 12/30/2009, Additional history exists Pneumococcal Vaccine: 65+ Years Completed 02/08/2017, 02/23/2006 VITAMIN D LEVEL ONCE IN A LIFETIME-USE SMARTSET# 27017 Completed 08/17/2023, 06/27/2023, 06/22/2023, Additional history exists [...] this encounter Medical Devices Implanted Type Area Engine Dispatcher Device Identifier Shelf Expiration Date Model / Serial / Lot Lead Novus Bipolar 58cm - [id number] - [id number] Implanted:Qty: 1 on 04/11/2017 by Elda Patterson DO at OR [facility] Left: Heart [employer] : [place] 12/18/2018 5076-58 / [id number] / Description:RIGHT VENTRICLE LEAD Lead Novus Bipolar 52cm - [id number] - [id number] Implanted:Qty: 1 on 04/11/2017 by Elda Patterson DO at OR [facility] Left: Heart [employer] : [place]ON[place]AN 12/24/2018 5076-52 / [id number] / Description:RIGHT ATRIAL ROCKY D Pacer Advisa Dr Dorsey - [id number] - [id number] Implanted:Qty: 1 on 04/11/2017 by Elda Patterson DO at OR [facility] Left: Chest [employer] 08/25/2018 A2DR01 / [id number] / documented as of this encounter Visit Diagnoses Diagnosis Cellulitis of left lower extremity- Primary Cellulitis and abscess of leg, except foot documented in this encounter Advance Directives Documents on File Type Date Recorded 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
--- OUTSIDE RECORDS SUMMARY | 2023-11-28 14:31 | External Medical Summary | Summary of Care ---
Author Name Unknown Organization [facility] Address [address] [place] [address] Phone [phone] Care Team Providers Care Public Services Librarian Name Role Phone Cathy Wilburn MD Primary Care Provide r Reason for Visit * Reason Comments Acute Encounter Details Date Type Department Care Team (Late st Contact Info) Description 11/16/2023 4:20 PM EDT Office Visit Family Medicine [address] [phone] Cathy Wilburn MD [address] [place] [address] [place] [address] Cellulitis of left lower extremity* Allergies Active Allergy Reactions Criticality Noted Date [...] as of this encounter (statuses as of 11/16/2023) Medications Medication Sig Dispensed Refills Start Date End Date Status Acetaminophen 325 MG Oral Tablet (Tylenol) Take by mouth 2 Tablets every 4 hours as needed for Fever >38C(100.5F), Pain, Mild, Pain, Moderate or Pain, Severe. 100 Tablet 1 2021 Active Atorvastatin Calcium 40 MG Oral Tablet (Lipitor)Indicatio ns:Atherosclerosis of saxman coronary artery of saxman heart without angina pectoris,Dyslipide martin, goal LDL [...] AT BEDTIME 180 Tablet 1 10/26/2023 Active Doxycycline Hyclate 100 MG Oral CapsuleIndications :Cellulitis of left lower extremity Take 1 Capsule by mouth in the morning and 1 Capsule before bedtime. Do all this for 7 days. Take for 7 days. 14 Capsule 11/16/2023 Active Potassium Chloride ER 10 MEQ Oral Tablet Extended Release Take 1 Tablet by mouth in the morning. 4 Discontinue d(Medicatio n List Clean Up) documented as of this encounter (statuses as of 11/16/2023) Active Problems Problem Noted Date Diagnosed Date [...] lumbosacral intervertebral disc 02/04/2009 Coronary atherosclerosis of saxman coronary luis ry 02/24/2005 Senile osteoporosis 05/14/2003 Carpal tunnel syndrome 04/23/2003 Moderate mitral regurgitation GENERAL OSTEOARTHROSIS Gastroesophageal reflux disease without esophagi tis Vitamin D deficiency Hyperparathyroidism, primary documented as of this encounter (statuses as of 11/16/2023) Resolved Problems Problem Noted Date Diagnosed Date [...] 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 LOC PRIM [id number] 02/14/200205/30 Other seborrheic keratosis 10/31/2001 0 06/06/2007 [...] as of this encounter (statuses as of 11/16/2023) Immunizations Name Administration Dates Next Due Pneumococcal [...] Sign Reading Time Taken Comments Blood Pressure 135/80 11/16/2023 4:12 PM EDT Pulse 84 11/16/2023 4:12 PM EDT Temperature 36.1 C (96.9 F) 11/16/2023 4:12 PM ED T Respiratory Rate - - Oxygen Saturation 95% 11/16/2023 4:12 PM EDT Inhaled Oxygen Concentration - - Weight 77.7 kg (171 lb 3.2 oz) 11/16/2023 4:12 P M EDT Height - - Body Mass Index 25.28 09/21/2023 5:37 AM EDT documented in this encounter Functional Status [...] No 09/21/2023 documented as of this encounter Progress Notes * Cathy Wilburn MD - 11/16/2023 4:14 PM EDT Subjective: HPI: Miranda Coe is a 88 year old female with hx of HLD, MARTI on CPAP, Afib, Tachy- kraig syndrome s/p pacemaker, CAD s/p PCI, HFpEF, HTN, CKD III, GERD, anxiety, colon Cancer s/p hemicolectomy, Hyperparathyroidism, hx of RLE DVT seen for Leg swelling with L foot redness: - currently on torsemide 15mg daily - denied any fever - per pt leg swelling is better - the redness started 1 week ago --- it is ttp --- no ulcers or discharge - denied any SOB Patient Active Problem List Diagnosis Carpal tunnel syndrome Senile osteoporosis Coronary atherosclerosis of saxman coronary artery Moderate mitral regurgitation GENERAL OSTEOARTHROSIS Gastroesophageal reflux disease without esophagitis Vitamin D deficiency Hyperparathyroidism, primary (HCC) Degeneration of lumbosacral intervertebral disc Anxiety state Dyslipidemia, goal LDL below 70 Venous insufficiency Varicose vein of leg Allergic rhinitis Dyslipidemia, goal LDL below 100 Chronic diastolic heart failure (HCC) Hx of nonmelanoma skin cancer Multiple thyroid nodules Encounter for long-term (current) use of high-risk medication Cardiac pacemaker in situ Paroxysmal atrial fibrillation (HCC) Family history of von Willebrand disease B12 deficiency Primary osteoarthritis of both knees MARTI (obstructive sleep apnea) Pernicious anemia History of falling Peripheral edema Thrombophlebitis of superficial veins of left lower extremity 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 (HCC) Iron deficiency anemia History of unexplained bleeding Chronic kidney disease, stage 3b (HCC) Status post right hemicolectomy LVH (left ventricular hypertrophy) Nonischemic cardiomyopathy (HCC) History of colon cancer Tachy-kraig syndrome (HCC) History of pulmonary embolism History of DVT (deep vein thrombosis) 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 100 Tablet 1 Atorvastatin Calcium 40 MG Oral Tablet (Lipitor) Take 1 Tablet by mouth at bedtime. 90 Tablet 3 Cholecalciferol 25 MCG (1000 UT) Oral Capsule Take 2 Capsules by mouth in the morning. 180 Capsule 1 DULoxetine HCl 30 MG Oral Capsule Delayed Release Particles (Cymbalta) Take 1 Capsule by mouth in the morning. In the morning.. 90 Capsule 3 Omeprazole 20 MG Oral Capsule Delayed Release (PriLOSEC) Take 1 Capsule by mouth in the morning. Inthe morning.. 90 Capsule 1 Vitamin B-12 1000 MCG Oral Tablet (Cyanocobalamin) TAKE 1 TABLET BY MOUTH ON TUESDAY, TUESDAY AND TUESDAY 30 Tablet 11 LORazepam 0.5 MG Oral Tablet (Ativan) Take 0.5 Tablets by mouth daily as needed for Anxiety. 15 Tablet 0 FeroSul 325 (65 Fe) MG Oral Tablet Take 1 Tablet by mouth every other day. Bladder Control Pads Ex Absorb Use as directed. Prolia 60 MG/ML Subcutaneous Solution Prefilled Syringe (Denosumab) Inject 60 mg under the skin once. Digoxin 125 MCG Oral Tablet (Lanoxin) Take 1 Tablet by mouth once a day on Tuesday, Tuesday, and Tuesday only. Latanoprost 0.005 % Ophthalmic Solution (Xalatan) 1 Drop at bedtime. Magnesium Chloride 64 MG Oral Tablet Delayed Release (Mag-64) Take 1 Tablet by mouth in the morning. oxygen IN GAS Use 2 L/min(Oxygen) as directed at bedtime. Torsemide 10 MG Oral Tablet (Demadex) Take 1 Tablet by mouth in the morning. Torsemide 5 MG Oral Tablet (Demadex) Take 1 Tablet by mouth in the morning. Potassium Chloride ER 10 MEQ Oral Capsule Extended Release TAKE ONE CAPSULE BY MOUTH IN THE [id number] Capsule 1 Apixaban 2.5 MG Oral Tablet (Eliquis) Take 1 Tablet by mouth in the morning and 1 Tablet before bedtime. 60 Tablet 2 Metoprolol Succinate ER 100 MG Oral Tablet Extended Release 24 Hour (toPROL XL) Take 1 Tablet by mouth in the morning and 1 Tablet before bedtime. 180 Tablet 0 Senexon-S 8.6-50 MG Oral Tablet (senna-docusate) TAKE TWO TABLETS AT BEDTIME 180 Tablet 1 Doxycycline Hyclate 100 MG Oral Capsule Take 1 Capsule by mouth in the morning and 1 Capsule beforebedtime. Do all this for 7 days. Take for 7 days. 14 Capsule 0 No current facility-administered medications for this visit. Past Medical History: Diagnosis Date Acute pulmonary embolism (HCC) 07/17/2021 Allergic rhinitis 10/06/2012 Anxiety state 05/02/2009 Asthma, severity to be determined Atrial premature beats Benign neoplasm of colon 1991 hyperplastic polyp Benign neoplasm of skin Benign paroxysmal vertigo Cardiac pacemaker in situ 04/19/2017 Coronary atherosclerosis of saxman coronary artery 02/01 Degeneration of lumbosacral intervertebral [...] below 140/90 05/28/2014 Hypercalcemia 11/04 Hyperparathyroidism, primary ([facility]) Hyperparathyroidism, unspecified ([facility]) 07/02/2008 RLP Parathyroid adenoma resection Fam Smith DO July 02, 2008 Hypertension goal BP (blood pressure) < 140/80 02/25/2014 Ischemic cardiomyopathy 02/01 LVEF 40 % on cath Kidney disease, chronic, stage III (GFR 30-59 ml/min) ([facility]) 04/08/2015 LAE (left atrial enlargement) 06/03/2021 Duplicate Localized, primary osteoarthritis of hand 02/04/2011 Malignant neoplasm of ascending colon ([facility]) 05/12/2021 S/P colectomy-No current treatment Menopause Mitral [...] Pain in limb 07/29/2001 Paroxysmal atrial tachycardia (HCC) Pericarditis 03/06/2015 Primary localized osteoarthrosis, lower leg [...] HEART THRU SKIN 02/18/2005 Dr. Gunter - [facility] CHEST 1 VIEW 03/19/2001 PAH--the heart appears [...] - invasive adenocarcinoma, adenomatous polyps, diverticulosis / [facility] COLONOSCOPY, DIAGNOSTIC (RECTUM) N/A 06/24/2022 multiple polyps/few angiodysplastic lesions ascending colon/hemorrhoids/biopsies show adenomatous polyps/recall 6 months/Col[place]oscopy/[facility] COLONOSCOPY, DIAGNOSTIC (RECTUM) N/A 12/09/2022 poor prep/biopsies normal/Colonoscopy/[facility] COLONOSCOPY, SURGERY REFERRAL OP 07/30/2003 Dr. Schultz - normal EGD, FLEXIBLE, DIAGNOSTIC 01/15/2021 normal bx / [facility] EXPLORE PARATHYROID GLANDS 07/02/2008 PARATHYROIDECTOMY performed by FAM SMITH at [place] [facility] INFORMATION FACIAL FX INFORMATION L hand tumor INSERT/REPLACE PACEMAKER,ATRIAL/VENTRICULAR Left 04/11/2017 NEW DDD PACEMAKER IMPLANT performed by Elda Patterson DO at OR [facility] INSERTION OF LENS PROSTHESIS 07/05/2012 right eye, dr jordan [place] ARTERIAL INTERVENTION 09/21/2023 KNEE ARTHROSCOPY, DIAGNOSTIC 01/28/1994 left knee LAPAROSCOPIC COLECTOMY PARTIAL WITH ANASTOMOSIS 04/27/2021 right hemicolectomy, Dr. Salamanca [facility] NM CARDIAC THALLIUM STRESS, OUTSIDE FILMS 01/28/1998 negative PARTIAL REMOVAL OF COLON Right 04/27/2021 right hemicolectomy with anastamosis for ascending colon cancer--Dr. Ashok Salamanca PERC STENT/CHEST VERTEBRAL ARTERY, INITIAL 02/18/2005 LAD TUBE DRAWER VEIN LIGATION W/ GRAFT, 1 LEG LLE [...] Reactions Alendronate Sodium Wheezing Wheezing,sob Morphine And Codeine Psych complications Confusion Thiazide-Type Diuretics Wheezing Tenoretic--wheezing Boniva [Ibandronate Sodium] Other (Please comment) Trouble swollowing Zetia [Ezetimibe] Other (Please comment) Muscle pain Zocor [Simvastatin] Other (Please comment) Muscle pain Amiodarone SOB Iodinated Contrast Media Ren[place]30%--sneeze? Dye Metoprolol Tartrate Generic Lopressor/certain brand/must be [employer] brand Red Dye #40 (Allura Red) Hives Erythromycin Nausea/vomiting Upset stomach Family History Problem Relation Name Age of Onset Diabetes Brother Cancer Mother lymphoma Diabetes Sister Arthritis Son rheumatic fever, Osteo Arthritis Other (Other) Son ruptured diaphragm as , lung collapsed Diabetes Son borderline Social History Tobacco Use Smoking status: Never Smokeless tobacco: Never Substance Use Topics Alcohol use: Not Currently Vaping/E-Cigarette Use Vaping/E-Cigarette Use Never User Vaping/E-Cigarette Substances Vaping/E-Cigarette Devices ROS: -Per HPI OBJECTIVE: BP 135/80 | Pulse 84 | Temp 36.1 C (96.9 F) | Wt 77.7 kg (171 lb 3.2 oz) | SpO2 95% | BMI 25.28kg/m | BSA 1.95 m PHYSICAL EXAM: Vitals are reviewed Mild LE pitting edema - L foot (dorsal) redness with ttp, no ulcers or wound ASSESSMENT/PLAN: Continue torsemide 15mg daily Possibly developing cellulitis - started the pt on doxy Cellulitis of left lower extremity (Primary) - Doxycycline Hyclate 100 MG Oral Capsule; Take 1 Capsule by mouth in the morning and 1 Capsule before bedtime. Do all this for 7 days. Take for 7 days. Cathy Wilburn MD Family medicine, [address] [address] documented in this encounter Nursing Notes * Ale Cox CMA - 11/16/2023 4:09 PM EDT She is here for swelling and pain in her left foot. She thinks it is cellulitis. She has had it before. documented in this encounter Plan of Treatment Upcoming Encounters Date Type Department Care Team (Late st Contact Info) Description 12/20/2023 11:00 AM EDT Office Visit Orthopaedics [facility] [address] [place] [address] Kian Travis DO [address] [place] [address] 12/26/2023 2:30 PM EDT Nurse Only Rheumatology [address] [place] [phone] [place], Nurse Rheum [address] [place] [phone] 01/06/2024 2:00 PM EST Office Visit Nephrology [address] [place] [address] ZeCharlotte coleman PA-C [address] [facility] [place] [address] 02/02/2024 2:30 PM EST Office Visit Hematology/Oncology [facility] [place] [address] [place] [phone] Mirna Camp CRNP [address] [place] [address] [place] [phone] 02/14/2024 1:30 PM EST Office Visit Cardiology, [facility] [address] [place] [address] Jane Ashley CRNP [address] [place] [address] 05/15/2024 1:00 PM EDT Office Visit Nephrology [address] [place] [address] Charlotte Cope PA-C [address] [place] [address] 06/06/2024 3:20 PM EDT Office Visit Family Medicine [address] [place] [phone] Cathy Wilburn MD [address] [place] [address] [place] [address] Health Maintenance Due Date Last Done Comments Adult Wellness Visit 05/30/2021 05/30/2020 DXA Scan 10/22/2023 10/21/2021, 09/29, 08/28/2018, Additional history exists COVID-19 Vaccine ( season) 2023 CKD PHOS USE SMARTSET 07186 08/16/202407/29, 05/12/2023, 11/05/2022, Additional history exists Albumin/Creatinine Ratio 08/24/2024 024, 07/19/2022, 04/06/2021, Additional history exists Depression Monitoring 08/24/2024 08/25/2023 DIG LEVEL FOR MEDICATION MONITORING YEARLY 09/20/2024 09/21/2023, 06/22/2023, 04/29/2023, Additional history exists CKD HGB USE SMARTSET 04617 10/27/202410/27, 10/28/2023, 09/28/2023, Additional history exists DTap/Tdap Vaccines (2 - Td or Tdap) 12/31/2029 01/01/2020 (Declined), 12/30/2009, 12/30/2009, Additional history exists Pneumococcal Vaccine: 65+ Years Completed 02/08/2017, 02/23/2006 VITAMIN D LEVEL ONCE IN A LIFETIME-USE SMARTSET# 84971 Completed 08/17/2023, 06/27/2023, 06/22/2023, Additional history exists [...] this encounter Medical Devices Implanted Type Area Manager Image Device Identifier Shelf Expiration Date Model / Serial / Lot Lead Novus Bipolar 58cm - [id number] - [id number] Implanted:Qty: 1 on 04/11/2017 by Elda Patterson DO at OR [facility] Left: Heart [employer] : [facility] 12/18/2018 5076-58 / [id number] / Description:RIGHT VENTRICLE LEAD Lead Novus Bipolar 52cm - [id number] - [id number] Implanted:Qty: 1 on 04/11/2017 by Elda Patterson DO at OR [facility] Left: Heart [employer] : [facility] 12/24/2018 5076-52 / [id number] / Description:RIGHT ATRIAL ROCKY D Pacer Advisa Dr Dorsey - [id number] - [id number] Implanted:Qty: 1 on 04/11/2017 by Elda Patterson DO at OR [facility] Left: Chest [employer] 08/25/2018 A2DR01 / [id number] / documented as of this encounter Visit Diagnoses Diagnosis Cellulitis of left lower extremity- Primary Cellulitis and abscess of leg, except foot documented in this encounter Advance Directives Documents on File Type Date Recorded Patient Gasket Winder Expl anation POLST 01/05/2021 [place] [facility] TREATMENT * Full Code [...] 9:35 AM 07/03/2008 5:40 PM Care Teams Public Services Librarian Relationship Specialty Start Date End Date Cathy Wilburn MD [address] [place] [address] [place] [phone] PCP - General Family Medicine 12/03/22 documented as of this encounter"
--- OUTSIDE RECORDS SUMMARY | 2023-11-28 14:31 | External Medical Summary | Summary of Care ---
Author Name Unknown Organization [facility] Address [address] [place] [address] Phone [phone] Care Team Providers Care Console Assembler Name Role Phone Cathy Wilburn MD Primary Care Provide r Reason for Visit * Reason Onset Date Comments Advice 11/18/2023 Medication issue Encounter Details Date Type Department Care Team (Late st Contact Info) Description 11/18/[address] [place] [phone] Cathy Wilburn MD [address] [place] [address] [place] [address] Advice (Medication issue) Allergies Active Allergy Reactions [...] 40 MG Oral Tablet (Lipitor)Indicatio ns:Atherosclerosis of galena coronary artery of galena heart without angina pectoris,Dyslipide martin, goal LDL [...] lumbosacral intervertebral disc 02/04/2009 Coronary atherosclerosis of galena coronary luis ry 02/24/2005 Senile osteoporosis 05/14/2003 [...] 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 LOC PRIM [id number] 02/14/200205/30 Other seborrheic keratosis 10/31/2001 0 06/06/2007 [...] encounter Miscellaneous Notes * Telephone Encounter - Ale Cox CMA - 11/22/2023 2:31 PM EDT I left a message for her that a different antibiotic was sent in . * Telephone Encounter - Cathy Wilburn MD - 11/22/2023 10:53 AM EDT Will try bactrim * Telephone Encounter - Glenna Omledo OSA - 11/18/2023 12:59 PM EDT Pt calling asking if provider can prescribe a different Antibiotic for pt. Pt states the Doxycycline is causing her abdominal discomfort along with diarrhea. Please advise. Thank you. documented in this encounter Plan of Treatment Upcoming Encounters Date Type Department Care Team (Late st Contact Info) Description 12/20/2023 11:00 AM EDT Office Visit Orthopaedics [facility] [address] [place] [address] Kian Travis, DO [address] [address] 12/26/2023 2:30 PM EDT Nurse Only Rheumatology [address] [place] [phone] [place], Nurse Rheum [address] [place] [phone] 01/06/2024 2:00 PM EST Office Visit Nephrology [address] [place] [address] Charlotte Cope PA-C [address] [place] [address] 02/02/2024 2:30 PM EST Office Visit Hematology/Oncology [facility] [address] [place] [phone] Mirna Camp CRNP [address] [facility] [address] 02/14/2024 1:30 PM EST Office Visit Cardiology, [facility] [address] [facility] [place] [address] Jane Ashley CRNP [address] [place] [facility] [place] [address] 05/15/2024 1:00 PM EDT Office Visit Nephrology [address] [place] [address] Charlotte Cope PA-C [address] [place] [address] 06/06/2024 3:20 PM EDT Office Visit Family Medicine [address] [place] [phone] Cathy Wilburn MD [address] [place] [address] [place] [phone] Health Maintenance Due Date Last Done Comments Adult Wellness Visit 05/30/2021 05/30/2020 DXA Scan 10/22/2023 10/21/2021, 09/29, 08/28/2018, Additional history exists COVID-19 Vaccine ( season) 2023 CKD PHOS USE SMARTSET 90906 08/16/202407/29, 05/12/2023, 11/05/2022, Additional history exists Albumin/Creatinine Ratio 08/24/2024 024, 07/19/2022, 04/06/2021, Additional history exists Depression Monitoring 08/24/2024 08/25/2023 DIG LEVEL FOR MEDICATION MONITORING YEARLY 09/20/2024 09/21/2023, 06/22/2023, 04/29/2023, Additional history exists CKD HGB USE SMARTSET 41200 10/27/202410/27, 10/28/2023, 09/28/2023, Additional history exists DTap/Tdap Vaccines (2 - Td or Tdap) 12/31/2029 01/01/2020 (Declined), 12/30/2009, 12/30/2009, Additional history exists Pneumococcal Vaccine: 65+ Years Completed 02/08/2017, 02/23/2006 VITAMIN D LEVEL ONCE IN A LIFETIME-USE SMARTSET# [id number] Completed 08/17/2023, 06/27/2023, 06/22/2023, Additional history exists [...] this encounter Medical Devices Implanted Type Area Editor Managing Director Device Identifier Shelf Expiration Date Model / Serial / Lot Lead Novus Bipolar 58cm - [id number] - [id number] Implanted:Qty: 1 on 04/11/2017 by Elda Patterson DO at OR [facility] Left: Heart [employer] : [employer] 12/18/2018 5076-58 / [id number] / Description:RIGHT VENTRICLE LEAD Lead Novus Bipolar 52cm - [id number] - [id number] Implanted:Qty: 1 on 04/11/2017 by Elda Patterson DO at OR [facility] Left: Heart [employer] : [employer] 12/24/2018 5076-52 / [id number] / Description:RIGHT ATRIAL ROCKY D Pacer Advisa Dr Dorsey - [id number] - [id number] Implanted:Qty: 1 on 04/11/2017 by Elda Patterson DO at OR [facility] Left: Chest [employer] 08/25/2018 A2DR01 / [id number] / documented as of this encounter Visit Diagnoses Diagnosis Cellulitis of left lower extremity- Primary Cellulitis and abscess of leg, except foot documented in this encounter Advance Directives Documents on File Type Date Recorded Patient Director Call Expl anation POLST 01/05/2021 [place] OR [facility]AIN[facility] TREATMENT * Full Code [...] 9:35 AM 07/03/2008 5:40 PM Care Teams Console Assembler Relationship Specialty Start Date End Date Cathy Wilburn MD [address] [place] [address] [place] [address] PCP - General Family Medicine 12/03/22 documented as of this encounter
--- OUTSIDE RECORDS SUMMARY | 2023-11-28 14:32 | External Medical Summary | Summary of Care ---
Author Name Unknown Organization [facility] Address [address] [facility] [place] [address] Phone [phone] Care Team Providers Care Contact Manager Name Role Phone Cathy Wilburn MD Primary Care Provide r Reason for Visit * Reason Onset Date Comments Referral 11/08/2023 [facility] discharge ( HTN) Encounter Details Date Type Department Care Team (Late st Contact Info) Description 11/08/2023 Telephone Pharmacy, [address] [place] [address] [place] [address] Referral ([facility] discharge (HTN)) Allergies Active Allergy Reactions Criticality Noted Date [...] as of this encounter (statuses as of 11/08/2023) Medications Medication Sig Dispensed Refills Start Date End Date Status Acetaminophen 325 MG Oral Tablet (Tylenol) Take by mouth 2 Tablets every 4 hours as needed for Fever >38C(100.5F), Pain, Mild, Pain, Moderate or Pain, Severe. 100 Tablet 1 2021 Active Atorvastatin Calcium 40 MG Oral Tablet (Lipitor)Indications :Atherosclerosis of [place] coronary artery of [place] heart without angina pectoris,Dyslipidemi a, goal LDL [...] as of this encounter (statuses as of 11/08/2023) Active Problems Problem Noted Date Diagnosed Date [...] lumbosacral intervertebral disc 02/04/2009 Coronary atherosclerosis of [place] coronary luis ry 02/24/2005 Senile osteoporosis 05/14/2003 Carpal tunnel syndrome 04/23/2003 Moderate mitral regurgitation GENERAL OSTEOARTHROSIS Gastroesophageal reflux disease without esophagi tis Vitamin D deficiency Hyperparathyroidism, primary documented as of this encounter (statuses as of 11/08/2023) Resolved Problems Problem Noted Date Diagnosed Date [...] 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 LOC PRIM [id number] 02/14/200205/30 Other seborrheic keratosis 10/31/2001 0 06/06/2007 [...] as of this encounter (statuses as of 11/08/2023) Immunizations Name Administration Dates Next Due Pneumococcal [...] No 09/07/2023 Does the household have a [facility] source of income? (Household - for [...] encounter Miscellaneous Notes * Telephone Encounter - Maya Daniel CPhT - 11/08/2023 3:12 PM EDT Patient Phone Numbers Spoke to patient, states that she is not interested in [facility] for HTN management. States her blood pressure is doing good right now. Instructed patient to call [facility] if she changes her mind. Will discharge at this time. Thank you, Maya Daniel CPhT Alternative Education Teacher III [facility] 11/08/2023 3:13 PM documented in this encounter Plan of Treatment Upcoming Encounters Date Type Department Care Team (Late st Contact Info) Description 12/05/2023 1:00 PM EDT Imaging Radiology, [address] [place] [address] 12/20/2023 11:00 AM EDT Office Visit Orthopaedics [facility] [address] [place] [address] Kian Travis, [address] [place] [address] 12/26/2023 2:30 PM EDT Nurse Only Rheumatology [address] [place] [phone] [place], Nurse Rheum [address] [place] [phone] 01/06/2024 2:00 PM EST Office Visit Nephrology [address] [place] [address] Charlotte Cope PA-C 200 [facility] [place] [address] 02/02/2024 2:30 PM EST Office Visit Hematology/Oncology [facility] [address] [place] [phone] Mirna Camp CRNP [address] [place] [address] 02/14/2024 1:30 PM EST Office Visit Cardiology, [facility] [address] [place] [address] Jane Ashley CRNP [address] [place] [address] 05/15/2024 1:00 PM EDT Office Visit Nephrology [address] [place] [address] Charlotte Cope PA-C 200 [facility] [place] [address] 06/06/2024 3:20 PM EDT Office Visit Family Medicine [address] [place] [phone] Cathy Wilburn MD [address] [place] [address] [place] [address] Health Maintenance Due Date Last Done Comments Adult Wellness Visit 05/30/2021 05/30/2020 DXA Scan 10/22/2023 10/21/2021, 09/29, 08/28/2018, Additional history exists COVID-19 Vaccine ( season) 2023 CKD PHOS USE SMARTSET 54232 08/16/202407/29, 05/12/2023, 11/05/2022, Additional history exists Albumin/Creatinine Ratio 08/24/2024 024, 07/19/2022, 04/06/2021, Additional history exists Depression Monitoring 08/24/2024 08/25/2023 DIG LEVEL FOR MEDICATION MONITORING YEARLY 09/20/2024 09/21/2023, 06/22/2023, 04/29/2023, Additional history exists CKD HGB USE SMARTSET 60819 10/27/202410/27, 10/28/2023, 09/28/2023, Additional history exists DTap/Tdap Vaccines (2 - Td or Tdap) 12/31/2029 01/01/2020 (Declined), 12/30/2009, 12/30/2009, Additional history exists Pneumococcal Vaccine: 65+ Years Completed 02/08/2017, 02/23/2006 VITAMIN D LEVEL ONCE IN A LIFETIME-USE SMARTSET# 01195 Completed 08/17/2023, 06/27/2023, 06/22/2023, Additional history exists [...] this encounter Medical Devices Implanted Type Area Psychiatric Registered Nurse Device Identifier Shelf Expiration Date Model / Serial / Lot Lead Novus Bipolar 58cm - [id number] - [id number] Implanted:Qty: 1 on 04/11/2017 by Elda Patterson DO at OR [facility] Left: Heart [employer] : [facility] 12/18/2018 5076-58 / [id number] / Description:RIGHT VENTRICLE LEAD Lead Novus Bipolar 52cm - [id number] - [id number] Implanted:Qty: 1 on 04/11/2017 by Elda Patterson DO at OR [facility] Left: Heart [employer] : [facility] 12/24/2018 5076-52 / [id number] / Description:RIGHT ATRIAL ROCKY D Pacer Advisa Dr Dorsey - [id number] - [id number] Implanted:Qty: 1 on 04/11/2017 by Elda Patterson DO at OR [facility] Left: Chest [employer] 08/25/2018 A2DR01 / [id number] / documented as of this encounter Advance Directives Documents on File Type Date Recorded 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
--- OUTSIDE RECORDS SUMMARY | 2023-11-28 14:32 | External Medical Summary | Summary of Care ---
Author Name Unknown Organization [facility] Address [address] [place] [address] Phone [phone] Care Team Providers Care Accounting Intern Name Role Phone Cathy Wilburn MD Primary Care Provide r Encounter Details Date Type Department Care Team (Late st Contact Info) Description 10/27/2023 9:30 AM EDT Scheduled Telephone Care Coordination and Integration [address] [place], [place] [id number] Faby Campos [facility] [address] [place], [place] [phone] Allergies Active Allergy Reactions Criticality Noted Date [...] as of this encounter (statuses as of 11/01/2023) Medications Medication Sig Dispensed Refills Start Date End Date Status Acetaminophen 325 MG Oral Tablet (Tylenol) Take by mouth 2 Tablets every 4 hours as needed for Fever >38C(100.5F), Pain, Mild, Pain, Moderate or Pain, Severe. 100 Tablet 1 2021 Active Atorvastatin Calcium 40 MG Oral Tablet (Lipitor)Indications :Atherosclerosis of [place] coronary artery of [place] heart without angina pectoris,Dyslipidemi a, goal LDL [...] as of this encounter (statuses as of 11/01/2023) Active Problems Problem Noted Date Diagnosed Date [...] lumbosacral intervertebral disc 02/04/2009 Coronary atherosclerosis of [place] coronary luis ry 02/24/2005 Senile osteoporosis 05/14/2003 Carpal tunnel syndrome 04/23/2003 Moderate mitral regurgitation GENERAL OSTEOARTHROSIS Gastroesophageal reflux disease without esophagi tis Vitamin D deficiency Hyperparathyroidism, primary documented as of this encounter (statuses as of 11/01/2023) Resolved Problems Problem Noted Date Diagnosed Date [...] 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 LOC PRIM [id number] 02/14/200205/30 Other seborrheic keratosis 10/31/2001 0 06/06/2007 [...] as of this encounter (statuses as of 11/01/2023) Immunizations Name Administration Dates Next Due Pneumococcal [...] as of this encounter Progress Notes * Faby Campos [facility] - 11/01/2023 8:56 AM EDT Telemedicine visit: No [facility] ([facility]) documentation: [facility] melita call per Bruce Hines RN CM No answer, left Vm requesting call back to [facility] CM Electronically signed by Faby Campos [facility] at 11/01/2023 8:58 AM EDT documented in this encounter Plan of Treatment Upcoming Encounters Date Type Department Care Team (Late st Contact Info) Description 12/05/2023 1:00 PM EDT Imaging Radiology, [address] [place] [address] 12/20/2023 11:00 AM EDT Office Visit Orthopaedics [facility] [address] [place] [address] Kian Travis, [address] [place] [address] 12/26/2023 2:30 PM EDT Nurse Only Rheumatology [address] [place] [phone] [place], Nurse Rheum [address] [place] [phone] 01/06/2024 2:00 PM EST Office Visit Nephrology [address] [place] [address] Charlotte Cope PA-C [address] [place] [address] 01/23/2024 2:20 PM EST Office Visit Dermatology [address] [place] [address] Amber Orozco PA-C [address] [place] [address] [place] [address] 02/02/2024 2:30 PM EST Office Visit Hematology/Oncology [facility] [place] [address] [place] [phone] Mirna Camp CRNP [address] [place] [address] 02/14/2024 1:30 PM EST Office Visit Cardiology, [facility] [address] [facility] [place] [address] Jane Ashley CRNP [address] [place] [address] 05/15/2024 1:00 PM EDT Office Visit Nephrology [address] [place] [address] Charlotte Cope PA-C [address] [place] [address] 06/06/2024 3:20 PM EDT Office Visit Family Medicine [address] [place] [phone] Cathy Wilburn MD [address] [place] [address] [place] [address] Health Maintenance Due Date Last Done Comments Adult Wellness Visit 05/30/2021 05/30/2020 DXA Scan 10/22/2023 10/21/2021, 09/29, 08/28/2018, Additional history exists COVID-19 Vaccine ( season) 2023 CKD PHOS USE SMARTSET 25377 08/16/202407/29, 05/12/2023, 11/05/2022, Additional history exists Albumin/Creatinine Ratio 08/24/2024 024, 07/19/2022, 04/06/2021, Additional history exists Depression Monitoring 08/24/2024 08/25/2023 DIG LEVEL FOR MEDICATION MONITORING YEARLY 09/20/2024 09/21/2023, 06/22/2023, 04/29/2023, Additional history exists CKD HGB USE SMARTSET 21555 10/27/202410/27, 10/28/2023, 09/28/2023, Additional history exists DTap/Tdap Vaccines (2 - Td or Tdap) 12/31/2029 01/01/2020 (Declined), 12/30/2009, 12/30/2009, Additional history exists Pneumococcal Vaccine: 65+ Years Completed 02/08/2017, 02/23/2006 VITAMIN D LEVEL ONCE IN A LIFETIME-USE SMARTSET# 38423 Completed 08/17/2023, 06/27/2023, 06/22/2023, Additional history exists [...] this encounter Medical Devices Implanted Type Area Cement Mason Helper Device Identifier Shelf Expiration Date Model / Serial / Lot Lead Novus Bipolar 58cm - [id number] - [id number] Implanted:Qty: 1 on 04/11/2017 by Elda Patterson DO at OR [facility] Left: Heart [employer] : [employer] 12/18/2018 5076-58 / [id number] / Description:RIGHT VENTRICLE LEAD Lead Novus Bipolar 52cm - [id number] - [id number] Implanted:Qty: 1 on 04/11/2017 by Elda Patterson DO at OR [facility] Left: Heart [employer] : [employer] 12/24/2018 5076-52 / [id number] / Description:RIGHT ATRIAL ROCKY D Pacer Advisa Dr Dorsey - [id number] - [id number] Implanted:Qty: 1 on 04/11/2017 by Elda Patterson DO at OR [facility] Left: Chest [employer] 08/25/2018 A2DR01 / [id number] / documented as of this encounter Advance Directives Documents on File Type Date Recorded Patient Director Of Undergraduate Admissions Expl anation POLST 01/05/2021 [place] OR [facility] FOR LIFE-SUSTAINING TREATMENT * Full Code [...] 9:35 AM 07/03/2008 5:40 PM Care Teams Accounting Intern Relationship Specialty Start Date End Date Cathy Wilburn MD [address] [place] [address] [place] [phone] PCP - General Family Medicine 12/03/22 documented as of this encounter
--- OUTSIDE RECORDS SUMMARY | 2023-11-28 14:32 | External Medical Summary | Summary of Care ---
Author Name Unknown Organization [facility] Address [address] [place] [address] Phone [phone] Care Team Providers Care Shoe Caser Name Role Phone Cathy Wilburn MD Primary Care Provide r Reason for Visit * Reason Onset Date Comments Home Health 11/14/2023 Encounter Details Date Type Department Care Team (Late st Contact Info) Description 11/14/[address] [phone] Cathy Wilburn MD [address] [place] [address] [place] [address] Home Health Allergies Active Allergy [...] as of this encounter (statuses as of 11/14/2023) Medications Medication Sig Dispensed Refills Start Date End Date Status Acetaminophen 325 MG Oral Tablet (Tylenol) Take by mouth 2 Tablets every 4 hours as needed for Fever >38C(100.5F), Pain, Mild, Pain, Moderate or Pain, Severe. 100 Tablet 1 2021 Active Atorvastatin Calcium 40 MG Oral Tablet (Lipitor)Indications :Atherosclerosis of [place] coronary artery of [place] heart without angina pectoris,Dyslipidemi a, goal LDL [...] as of this encounter (statuses as of 11/14/2023) Active Problems Problem Noted Date Diagnosed Date [...] lumbosacral intervertebral disc 02/04/2009 Coronary atherosclerosis of [place] coronary luis ry 02/24/2005 Senile osteoporosis 05/14/2003 Carpal tunnel syndrome 04/23/2003 Moderate mitral regurgitation GENERAL OSTEOARTHROSIS Gastroesophageal reflux disease without esophagi tis Vitamin D deficiency Hyperparathyroidism, primary documented as of this encounter (statuses as of 11/14/2023) Resolved Problems Problem Noted Date Diagnosed Date [...] 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 LOC PRIM [id number] 02/14/200205/30 Other seborrheic keratosis 10/31/2001 0 06/06/2007 [...] as of this encounter (statuses as of 11/14/2023) Immunizations Name Administration Dates Next Due Pneumococcal [...] No 09/07/2023 Does the household have a [facility]? (Household - for [...] did not take her lasix yesterday. [facility] documented in this encounter Plan of Treatment Upcoming Encounters Date Type Department Care Team (Late st Contact Info) Description 12/20/2023 11:00 AM EDT Office Visit Orthopaedics [facility] [address] [place] [address] Kian Travis, [address] [place] [address] 12/26/2023 2:30 PM EDT Nurse Only Rheumatology [place] [facility] [address] [place] [phone] [place], Nurse Rheum [address] [place] [phone] 01/06/2024 2:00 PM EST Office Visit Nephrology [address] [place] [address] Charlotte Cope PA-C [address] [place] [address] 02/02/2024 2:30 PM EST Office Visit Hematology/Oncology [facility] [address] [place] [phone] [facility]na [facility] [address] 02/14/2024 1:30 PM EST Office Visit Cardiology, [facility] [address] [place] [address] Jane Ashley [facility]NP [facility] [address] 05/15/2024 1:00 PM EDT Office Visit Nephrology [address] [place] [address] Charlotte Cope PA-C [address] [place] [address] 06/06/2024 3:20 PM EDT Office Visit Family Medicine [address] [place] [phone] Cathy Wilburn MD [address] [place] [address] [place] [address] Health Maintenance Due Date Last Done Comments Adult Wellness Visit 05/30/2021 05/30/2020 DXA Scan 10/22/2023 10/21/2021, 09/29, 08/28/2018, Additional history exists COVID-19 Vaccine ( season) 2023 CKD PHOS USE SMARTSET 00329 08/16/202407/29, 05/12/2023, 11/05/2022, Additional history exists Albumin/Creatinine Ratio 08/24/2024 024, 07/19/2022, 04/06/2021, Additional history exists Depression Monitoring 08/24/2024 08/25/2023 DIG LEVEL FOR MEDICATION MONITORING YEARLY 09/20/2024 09/21/2023, 06/22/2023, 04/29/2023, Additional history exists CKD HGB USE SMARTSET 61166 10/27/202410/27, 10/28/2023, 09/28/2023, Additional history exists DTap/Tdap Vaccines (2 - Td or Tdap) 12/31/2029 01/01/2020 (Declined), 12/30/2009, 12/30/2009, Additional history exists Pneumococcal Vaccine: 65+ Years Completed 02/08/2017, 02/23/2006 VITAMIN D LEVEL ONCE IN A LIFETIME-USE SMARTSET# 24193 Completed 08/17/2023, 06/27/2023, 06/22/2023, Additional history exists [...] this encounter Medical Devices Implanted Type Area Van Driver Helper Device Identifier Shelf Expiration Date Model / Serial / Lot Lead Novus Bipolar 58cm - [id number] - [id number] Implanted:Qty: 1 on 04/11/2017 by Elda Patterson DO at OR [facility] Left: Heart [employer] : [employer]ON[place]AN 12/18/2018 5076-58 / [id number] / Description:RIGHT VENTRICLE LEAD Lead Novus Bipolar 52cm - [id number] - [id number] Implanted:Qty: 1 on 04/11/2017 by Elda Patterson DO at OR [facility] Left: Heart [employer] : [employer] 12/24/2018 5076-52 / [id number] / Description:RIGHT ATRIAL ROCKY D Pacer Advisa Dr Dorsey - [id number] - [id number] Implanted:Qty: 1 on 04/11/2017 by Elda Patterson DO at OR [facility] Left: Chest [employer] 08/25/2018 A2DR01 / [id number] / documented as of this encounter Advance Directives Documents on File Type Date Recorded Patient Head Rigger Expl anation POLST 01/05/2021 [place] OR [facility] FOR LIFE-SUSTAINING TREATMENT * [...] 9:35 AM 07/03/2008 5:40 PM Care Teams Shoe Caser Relationship Specialty Start Date End Date Cathy Wilburn MD [address] [place] [address] [place] [address] PCP - General Family Medicine 12/03/22 documented as of this encounter
--- OUTSIDE RECORDS SUMMARY | 2023-11-28 14:32 | External Medical Summary | Summary of Care ---
Author Name Unknown Organization [facility] Address [address] [place] [address] Phone [phone] Care Team Providers Care Insurance Office Supervisor Name Role Phone Cathy Wilburn MD Primary Care Provide r Reason for Visit * Reason Onset Date Comments Hospital Follow-Up Hospital Follow-Up 10/28/2023 Encounter Details Date Type Department Care Team (Late st Contact Info) Description 10/28/2023 2:20 PM EDT Office Visit Family Medicine [address] [place] [phone] Arvin Max MD [address] [place] [address] [place] [id number] Hospital discharge follow-up*; Supratherapeutic INR; Retroperitoneal hematoma; Acute blood loss anemia; Chronic kidney disease, stage 3b (HCC); History of colon cancer; 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 100 Tablet 1 2021 Active Atorvastatin Calcium 40 MG Oral Tablet (Lipitor)Indication s:Atherosclerosis of [place] coronary artery of [place] heart without angina pectoris,Dyslipidem ia, goal LDL below 70 Take 1 Tablet by mouth at bedtime. 90 Tablet 3 07/06/2023 Active Cholecalciferol 25 MCG (1000 UT) Oral CapsuleIndications: Senile osteoporosis Take 2 Capsules by mouth in the morning. 180 Capsule 1 07/06/2023 Active DULoxetine HCl 30 MG Oral Capsule Delayed Release Particles (Cymbalta)Indicatio ns:Moderate episode of recurrent major depressive disorder (HCC) Take 1 Capsule by mouth in the morning. In the morning.. 90 Capsule 3 07/06/2023 Active Omeprazole 20 MG Oral Capsule Delayed Release (PriLOSEC)Indicatio ns:Gastro-esophagea l reflux disease without esophagitis Take 1 Capsule by mouth in the morning. In the morning.. 90 Capsule 1 07/06/2023 Active Vitamin B-12 1000 MCG Oral Tablet (Cyanocobalamin)Ind ications:B12 deficiency TAKE 1 TABLET BY MOUTH ON TUESDAY, TUESDAY AND TUESDAY 30 Tablet 11 07/06/2023 Active LORazepam 0.5 MG Oral Tablet (Ativan)Indications :Anxiety Take 0.5 Tablets by mouth daily as needed for Anxiety. 15 Tablet 08/29/2023 Active FeroSul 325 (65 Fe) MG Oral Tablet Take 1 Tablet by mouth every other day. 09/20/2023 Active Bladder Control Pads Ex Absorb Use as directed. Acti ve Prolia 60 MG/ML Subcutaneous Solution Prefilled Syringe [...] Chloride ER 10 MEQ Oral Capsule Extended ReleaseIndications: Chronic diastolic heart failure (HCC) TAKE ONE CAPSULE [...] AT BEDTIME 180 Tablet 1 10/26/2023 Active Cephalexin 500 MG Oral CapsuleIndications: Acute cystitis without hematuria Take 1 Capsule by mouth in the morning and 1 Capsule before bedtime. Do all this for 7 days. 14 Capsule 10/28/2023 11/04/2023 Active documented as of this encounter (statuses as of 10/28/2023) Active Problems Problem Noted Date Diagnosed Date [...] lumbosacral intervertebral disc 02/04/[address] [place] coronary luis ry 02/24/2005 Senile osteoporosis 05/14/2003 Carpal tunnel syndrome 04/23/2003 Moderate mitral regurgitation GENERAL OSTEOARTHROSIS Gastroesophageal reflux disease without esophagi tis Vitamin D deficiency Hyperparathyroidism, primary documented as of this encounter (statuses as of 10/28/2023) Resolved Problems Problem Noted Date Diagnosed Date [...] atherosclerosis 11/06/2019 03/17/2023 Acute blood loss anemia 10/22/2019 0702/2023 Hypertensive heart and kidne y disease with [...] 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 LOC PRIM [id number] 02/14/200205/30 Other seborrheic keratosis 10/31/2001 0 06/06/2007 [...] as of this encounter (statuses as of 10/28/2023) Immunizations Name Administration Dates Next Due Pneumococcal [...] Sign Reading Time Taken Comments Blood Pressure 140/78 10/28/2023 2:16 PM EDT Pulse 84 10/28/2023 2:16 PM EDT Temperature 36.7 C (98.1 F) 10/28/2023 2:16 PM ED T Respiratory Rate - - Oxygen Saturation 97% 10/28/2023 2:16 PM EDT Inhaled Oxygen Concentration - - Weight 76.2 kg (168 lb) 10/28/2023 2:16 PM EDT Height - - Body Mass Index 24.81 09/21/2023 5:37 AM EDT documented in this [...] No 09/21/2023 documented as of this encounter Patient Instructions * Patient Instructions* Arvin Max MD - 10/28/2023 2:27 PM EDT Taking Medicine Safely Medicine is given to help treat or prevent illness. But if you don't take it correctly, it might not help. It might even harm you. Your doctor or pharmacist can help you learn the right way to take your medicine. Listed below are some tips to help you take medicine safely. Safety Tips Have a routine for taking each medicine. Make it part of something you do each day, such as brushing your teeth or eating a meal. When you go to the hospital or your doctor's office, bring all your current medicines in their original boxes or bottles. If you can't do that, bring an up-to-date list of your medicines. Do not stop taking a prescription medicine unless your doctor tells you to. Doing so could make your condition worse. Do not share medicines. Let your doctor and pharmacist know of any allergies you have. Taking prescription medicines with alcohol, street drugs, herbs, supplements, or even some vkyh-efu-ealqlhb medicines can be harmful. Talk to your doctor or pharmacist before using any of these things while taking a prescription medicine. When filling your prescriptions, try using the same pharmacy for all your medicines. If not, let the pharmacist know what medicines you are already on. Keep medicines out of the reach of children and pets. Do not use medicine that has or that doesn't look or smell right. Get rid of it properly. To find out the right way to get rid of medicine: Call your [facility] government's household trash and recycling service and ask if a drug take-back program is available in your community. Call your local pharmacy and ask the right way to get rid of the medicine. Go to http://www.fda.gov/ForConsumers/ConsumerUpdates/jpo458905 to learn how to get rid of medicines safely. Using Generic Medicines Medicines have brand names and generic (chemical) names. When a medicine is first made, it is sold only under its brand name. Later, it can be made and sold as a generic. Generic medicines cost less than brand-name medicines and most work just as well. Most people can use the generic medicine instead of the brand-name medicine, unless their doctor says otherwise. 6683-5922 [facility], [address] [place] [address]. All rights reserved. This information is not intended as a substitute for professional medical care. Always follow your healthcare professional's instructions. Coping with Your Diagnosis of a Chronic Health Condition If you have a chronic health condition, you have a problem that may not go away over time. Heart disease, asthma, arthritis, and diabetes are just a few of the chronic conditions that exist. Right now, these conditions have no known cure. But you can take an active role in managing your health. Coping with Your Diagnosis If you've just learned about your health condition, you may be angry, depressed, or afraid. Or you might feel relieved just to know what's wrong. Even if you've known about your health problem for a while, adjusting to it can be hard. But learning about your condition can help you cope. Look for books at your local library. If you have access to a computer, check the Internet. Or contact a group that focuses on your specific problem. Accepting Change Change is hard for most people. Yet right now you may be facing many changes. What you eat or the way you work may change. Your moods, and even your symptoms, might vary from day to day. Although it isn't easy, learning to accept change can help you feel more in control. Taking Control Feeling you have control can make living with your condition easier. Discuss treatment options withyour health care provider. The more you know, the more active you can be in your care. Moving Forward You may wonder whether you will be able to do the things you've always done. That depends on your age, the condition you have, and your goals. To make the most of each day, try to build caring relationships, be active, and eat right. Also, do your best to keep a sense of humor. 9018-1290 [facility], [address] [place] [address]. All rights reserved. This information is not intended as a substitute for professional medical care. Always follow your healthcare professional's instructions. Taking an Active Role in Your Medicines Take the time to learn about your medicine. For instance, why are you taking it? What does it do? Work with your doctor or other health care providers to get the answers you need. Talk to your pharmacist about how to take each medicine, and ask for a fact sheet on each one. Ask Questions About Your Medicine What is the name of the medicine? Why do I need to take it? When should I take it? How should I take it: with water? with food? on an empty stomach? How much do I take? What do I do if I miss a dose? What side effects could it cause and which ones should I call the doctor about? Are there any foods or medicines I should avoid while taking this medicine? Keeping track of your medications? Name of medicine: Taken for: Dose: Time(s) to take it: Take an Active Role Fill all your prescriptions at the same pharmacy. This keeps your medicine history in one place. Talk to the pharmacist. Make sure you understand how to take each medicine. Ask for a fact sheet about each one. Tell your doctor and pharmacist about all the prescription and bxjh-znq-nfossnr medicines you take.This includes vitamins and herbal remedies. Tell your doctor and pharmacist if you have any medical conditions or allergies to any medicine or food, or if you are or . Keep a list of all your medicines. Use the sample to the right as a guide for the type of information needed. 1993-8357 [employer] Gonzalez, [address] [place] [address], [place] [address]. All rights reserved. This information is not intended as a substitute for professional medical care. Always follow your healthcare professional's instructions. documented in this encounter Progress Notes * Arivn Max MD - 10/28/2023 2:27 PM EDT SUBJECTIVE: Miranda Coe is a 88 year old female. Chief Complaint Patient presents with Hospital Follow-Up Hospital Follow-Up Recent Admission: Patient was recently admitted to [facility] on 09/21/23. The date of discharge was 09/28/23. Discharge report received and reviewed. HPI: Brief Clinical History Ms. Coe is a 88 year old female last seen in [facility] on 10/20/2023 by Faby Campos She has a h/o the following chronic conditions indicated on the problem list: Chronic Conditions Chronic diastolic heart failure (HCC) Coronary atherosclerosis of 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 Patient states she was playing the slot machines at a local convenience store and had a hard time getting up and down from the tallstools. She developed a severe pain in the left hip area to the point she could not lift her leg. She was worried that she broke her hip so went to [facility] ED. CT scan of the abdomen/pelvis showed a 10 x 30 cm retroperitoneal hematoma. INR was over 4. She was life-flighted to [facility] and received 1 units of PRBCs en route and was given KCentra. Patient was going to have IR embolization but was not required. Her Coumadin was stopped. Discussion was held on whether to discontinue anticoagulation versus change to Eliquis at 2.5 mg twice daily. Has h/o DVT and PE and also PAF. Patient preferred to remain on anticoagulation so her Coumadin was changed to Eliquis. She was also noted to have a stable mass in the abdomen abutting the stomach stable since at least 2021. Has h/o colon cancer s/p resection. Patient aware of lesion. Is to be having a repeat colonscopy soon. Her knees hurt a lot. Has [facility] and PT. Has arthritis. Taking Tylenol 2-3 times a day and uses topical cream. Diclofenac gel did not help. Just got back from [place]. Went to stay with daughter after getting out of the hospital. She has not had the labs done recommended for 3-5 days after discharge. Has dysuria. Had urine test this week brought in by HH and positive for UTI. Cephalexin was called in and is going to pick it up today. Was on a fluid restriction earlier this year when at SNF for hyponatremia. Is not sure if she is shawn restricting her fluids but states she only drinks about 2 bottles of a water a day anyway. Patient Active Problem List Diagnosis Carpal tunnel syndrome Senile osteoporosis Coronary atherosclerosis of [place] coronary artery Moderate mitral regurgitation GENERAL OSTEOARTHROSIS [...] Use 2 L/min(Oxygen) as directed at bedtime. Potassium Chloride ER 10 MEQ Oral Tablet Extended Release Take 1 Tablet by mouth in the morning. Torsemide 10 MG Oral Tablet (Demadex) Take 1 Tablet by mouth in the morning. Torsemide 5 MG Oral Tablet (Demadex) Take 1 Tablet by mouth in the morning. Potassium Chloride ER 10 MEQ Oral Capsule Extended Release TAKE ONE CAPSULE BY MOUTH IN THE [id number] Capsule 1 Apixaban 2.5 MG Oral Tablet [...] TWO TABLETS AT BEDTIME 180 Tablet 1 Cephalexin 500 MG Oral Capsule Take 1 Capsule by mouth in the morning and 1 Capsule before bedtime.Do all this for 7 days. 14 Capsule 0 No current facility-administered medications for this visit. Current and discharge medications have been reconciled. Review of patient's allergies indicates: Allergen Reactions [...] (Allura Red) Hives Erythromycin Nausea/vomiting Upset stomach OBJECTIVE: BP 140/78 | Pulse 84 | Temp 36.7 C (98.1 F) (Tympanic) | Wt 76.2 kg (168 lb) | SpO2 97% | BMI 24.81 kg/m | BSA 1.93 m Review Of Systems: Skin: pt denies, new or changing moles, pigmentation change, rash, scaling, itching, bruising, lumps or bumps, hair changes, nail changes Eyes: negative Ears/Nose/Throat: pt denies:, deafness, tinnitus, vertigo, frequent URI's, sinus trouble Respiratory: pt denies:, cough, pneumonia or bronchitis, wheezing, and dyspnea on exertion Cardiovascular: +PAF, CHF, s/p pacemaker for tachy-kraig Gastrointestinal: +h/o colon cancer Genitourinary: +UTI Musculoskeletal: +knee pain. Follows with orthopedics Neurologic: pt denies:, headaches, syncope, and seizures Psychiatric: +depression/anxiety Hematologic/Lymphatic/Immunologic: +anemia as above Endocrine: pt denies:, thyroid disorder, cold intolerance, heat intolerance, and diabetes PHYSICAL EXAM: General: alert, no distress, well nourished, and well developed Head: Normocephalic, No masses, lesions, tenderness or abnormalities Eye Exam: PERRLA, extraocular movements intact, conjunctiva are pink and non- injected, sclera clear Ears: External ears normal Nose: no mucosal erythema, no mucosal edema, no purulent discharge Oropharynx: no exudate, no erythema, lips, buccal mucosa, and tongue normal, and mucous membranes are moist Neck: supple, no adenopathy, no bruits, thyroid normal size, non-tender, without nodularity Heart: regular rate & rhythm and no gallops Lungs: chest symmetric with normal AP diameter, no chest deformities noted, no chest wall tenderness, lungs clear to auscultation Extremities: no clubbing, no cyanosis, trace ankle edema Neuro Exam: alert & oriented x 3 with fluent speech, no focal motor/sensory deficits, +ambulates slowly with a cane ASSESSMENT: Hospital discharge follow-up (Primary) - DISCH MED RECON CUR MED LIS Supratherapeutic INR Retroperitoneal hematoma - CBC WITH WBC DIFFERENTIAL; Future; Expected date: 10/28/2023 Acute blood loss anemia Chronic kidney disease, stage 3b (HCC) - BASIC METABOLIC PANEL; Future; Expected date: 10/28/2023 History of colon cancer 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 PLAN: Continue present medication(s): Schedule labs: CBC w/diff and BMP today Patient education: discussed lab testing and reviewed hospital stay. Continue follow-up with GI as directed for h/o colon cancer. Has stable mass-like lesion near stomach. Follow-up with hematology for iron deficiency anemia. Check labs today as above. Changed to Eliquis 2.5 mg twice daily due to serious RP bleed with supratherapeutic INR. She knows to start cephalexin for UTI Follow up as scheduled. I spent a total of 30-39 minutes (exact time 35 mins) minutes on the date of service in preparation, delivery, and documentation of the care provided to Miranda Coe excluding any time spent in performance of separately billed services. Arvin Max MD documented in this encounter Nursing Notes * Pau Mccurdy LPN - 10/28/2023 2:15 PM EDT Hospital follow up from August. Just came back to [place] sent in antibiotic for UTI today. Will order picker/assembler today Knees hurt bilaterally. Never had replaced. Does have PT coming in & home health. documented in this encounter Plan of Treatment Upcoming Encounters Date Type Department Care Team (Late st Contact Info) Description 12/05/2023 1:00 PM EDT Imaging Radiology, [address] [place] [address] 12/20/2023 11:00 AM EDT Office Visit Orthopaedics [facility] [address] [place] [address] Kian Travis, [address] [place] [address] 12/26/2023 2:30 PM EDT Nurse Only Rheumatology [address] [place] [phone] [place], Nurse Rheum [address] [place] [phone] 01/06/2024 2:00 PM EST Office Visit Nephrology [address] [place] [address] Charlotte Cope PA-C [address] [place] [address] 01/23/2024 2:20 PM EST Office Visit Dermatology [address] [place] [address] Amber Orozco PA-C [address] [place] [address] [place] [address] 02/02/2024 2:30 PM EST Office Visit Hematology/Oncology [facility] [address] [place] [phone] Mirna Camp CRNP [address] [place] [address] 02/14/2024 1:30 PM EST Office Visit Cardiology, [facility] [address] [place] [address] Jane Ashley CRNP [address] [place] [phone] 05/15/2024 1:00 PM EDT Office Visit Nephrology [address] [place] [address] Charlotte Cope PA-C [address] [facility] [place] [address] 06/06/2024 3:20 PM EDT Office Visit Family Medicine [address] [place] [phone] Cathy Wilburn MD [address] [place] [address] [place] [phone] Pending Results Name Type Priority Associated Diagnoses Date /Time CBC WITH WBC DIFFERENTIAL Lab Routine Retroperitoneal hematoma 10/28/2023 2:55 PM EDT BASIC METABOLIC PANEL Lab Routine Chronic kidney disease, stage 3b (HCC) 10/28/2023 2:55 PM EDT Scheduled Orders Name Type Priority Associated Diagnoses Orde r Schedule CBC WITH WBC DIFFERENTIAL Lab Routine Retroperitoneal hematoma Expected: 10/28/2023 (Approximate), Expires: 10/27/2024 BASIC METABOLIC PANEL Lab Routine Chronic kidney disease, stage 3b (HCC) Expected: 10/28/2023 (Approximate), Expires: 10/27/2024 Health Maintenance Due Date Last Done Comments Adult Wellness Visit 05/30/2021 05/30/2020 COVID-19 Vaccine ( season) 2022 DXA Scan 10/22/2023 10/21/2021, 09/29, 08/28/2018, Additional history exists CKD PHOS USE SMARTSET 32902 08/16/202407/29, 05/12/2023, 11/05/2022, Additional history exists Albumin/Creatinine Ratio 08/24/2024 024, 07/19/2022, 04/06/2021, Additional history exists Depression Monitoring 08/24/2024 08/25/2023 DIG LEVEL FOR MEDICATION MONITORING YEARLY 09/20/2024 09/21/2023, 06/22/2023, 04/29/2023, Additional history exists CKD HGB USE SMARTSET 05217 09/27/202409/27, 09/27/2023, 09/27/2023, Additional history exists DTap/Tdap Vaccines (2 - Td or Tdap) 12/31/2029 01/01/2020 (Declined), 12/30/2009, 12/30/2009, Additional history exists Pneumococcal Vaccine: 65+ Years Completed 02/08/2017, 02/23/2006 VITAMIN D LEVEL ONCE IN A LIFETIME-USE SMARTSET# 12705 Completed 08/17/2023, 06/27/2023, 06/22/2023, Additional history exists [...] encounter Medical Devices Implanted Type Area Business Intelligence Consultant Device Identifier Shelf Expiration Date Model / Serial / Lot Lead Novus Bipolar 58cm - [id number] - [id number] Implanted:Qty: 1 on 04/11/2017 by Elda Patterson DO at OR [facility] Left: Heart [employer] : CRM 12/18/2018 5076-58 / [id number] / Description:RIGHT VENTRICLE LEAD Lead Novus Bipolar 52cm - [id number] - [id number] Implanted:Qty: 1 on 04/11/2017 by Elda Patterson DO at OR [facility] Left: Heart [employer] : CRM 12/24/2018 5076-52 / [id number] / Description:RIGHT ATRIAL ROCKY D Pacer Advisa Dr Dorsey - [id number] - [id number] Implanted:Qty: 1 on 04/11/2017 by Elda Patterson DO at OR [facility] Left: Chest [employer] 08/25/2018 [id number] / [id number] / documented as of this encounter Visit Diagnoses Diagnosis Hospital discharge follow-up- Primary Other follow-up examination Supratherapeutic INR Abnormal coagulation profile Retroperitoneal hematoma Hemorrhage, unspecified Acute blood loss anemia Acute posthemorrhagic anemia Chronic kidney disease, stage 3b (HCC) History of colon cancer Personal history of malignant neoplasm of large intestine 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 FOR LIFE-SUSTAINING TREATMENT * [...] 9:35 AM 07/03/2008 5:40 PM Care Teams Insurance Office Supervisor Relationship Specialty Start Date End Date Cathy Wilburn MD [address] [place] [address] [place] [address] PCP - General Family Medicine 12/03/22 documented as of this encounter"
--- OUTSIDE RECORDS SUMMARY | 2023-11-28 14:33 | External Medical Summary | Summary of Care ---
Author Name Unknown Organization [facility] Address [address] [place] [address] Phone [phone] Care Team Providers Care Humid System Operator Name Role Phone Cathy Wilburn MD Primary Care Provide r Reason for Visit * Reason Onset Date Comments Home Health 10/26/2023 Order Request 10/26/2023 Urinary Tract Infection Symptoms 10/26/2023 Encounter Details Date Type Department Care Team (Late st Contact Info) Description 10/26/2023 Telephone Family Medicine [address] [place] [address] Cathy Wilburn MD [address] [place] [address] [place] [address] Home Health; Order Request; Urinary Tract ... Allergies Active Allergy Reactions Criticality Noted Date Comments Alendronate Sodium Wheezing High 12/15/2007 Wheezing,sob Amiodarone 04/14/2018 SOB Ibandronate Sodium Other (Please comment) Medium 06/05 Trouble swollowing Erythromycin Nausea/vomiting Low Upset stomach Iodinated Contrast Media [place]30%--sneeze? Dye Metoprolol Tartrate Generic Lopressor/certain brand/must be [employer] brand Morphine And Codeine Psych complications High Confusion Red Dye Hives 11/22/2019 Thiazide-Type Diuretics Wheezing High Tenoretic--wheezing Ezetimibe Other (Please comment) Medium 02/04/2009 Muscle pain Simvastatin Other (Please comment) Medium 02/04/2009 Muscle pain documented as of this encounter (statuses as of 10/26/2023) Medications Medication Sig Dispensed Refills Start Date End Date Status Acetaminophen 325 MG Oral Tablet (Tylenol) Take by mouth 2 Tablets every 4 hours as needed for Fever >38C(100.5F), Pain, Mild, Pain, Moderate or Pain, Severe. 100 Tablet 1 2021 Active Atorvastatin Calcium 40 MG Oral Tablet (Lipitor)Indications :Atherosclerosis of [place] coronary artery of [place] heart without angina pectoris,Dyslipidemi a, goal LDL [...] as of this encounter (statuses as of 10/26/2023) Active Problems Problem Noted Date Diagnosed Date [...] disc 02/04/2009 Coronary atherosclerosis of [place] coronary luis ry 02/24/2005 Senile osteoporosis 05/14/2003 Carpal tunnel syndrome 04/23/2003 Moderate mitral regurgitation GENERAL OSTEOARTHROSIS Gastroesophageal reflux disease without esophagi tis Vitamin D deficiency Hyperparathyroidism, primary documented as of this encounter (statuses as of 10/26/2023) Resolved Problems Problem Noted Date Diagnosed Date [...] 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 LOC PRIM [id number] 02/14/200205/30 Other seborrheic keratosis 10/31/2001 0 06/06/2007 [...] as of this encounter (statuses as of 10/26/2023) Immunizations Name Administration Dates Next Due Pneumococcal [...] No 09/07/2023 Does the household have a [facility] source of income? (Household - for [...] Telephone Encounter - Ale Cox CMA - 10/26/2023 3:43 PM EDT Laury collected the specimen this morning. It was dropped off here in [place] at the lab. I messaged the lab and let them know to add the culture. * Telephone Encounter - Cathy Wilburn MD - 10/26/2023 2:34 PM EDT Looks like UA was order - I would like to get UCX as well * Telephone Encounter - Jennifer Resendiz LPN - 10/26/2023 10:14 AM EDT HH Concerns Laury RN, Calling from: [facility] Report/Concerns of: UTI Symptoms: uti- burning Vitals: NA Narrative: Reports that she spoke with the pt via phone today and pt reports dysuria. Is asking if order for UA C&S could be provided? Laury will be going out to see the pt today. Call back Laury with any advice or orders at [phone] Please fax new orders to [facility] [phone] documented in this encounter Plan of Treatment Upcoming Encounters Date Type Department Care Team (Late st Contact Info) Description 10/28/2023 2:20 PM EDT Office Visit Family Medicine [address] [place] [phone] Arvin Max MD [address] [place] [address] [place] [address] 12/05/2023 1:00 PM EDT Imaging Radiology, [facility] [address] [facility] [place] [address] 12/20/2023 11:00 AM EDT Office Visit Orthopaedics [facility] [address] [facility] [place] [address] Kian Travis, [address] [facility] [place] [address] 12/26/2023 2:30 PM EDT Nurse Only Rheumatology [address] [place] [phone] [place], Nurse Rheum [address] [place] [phone] 01/06/2024 2:00 PM EST Office Visit Nephrology [address] [place] [address] ZemaCharlotte colón PA-C 200 [facility] [place] [address] 01/23/2024 2:20 PM EST Office Visit Dermatology [address] [place] [address] Amber Orozco PA-C [address] [place] [address] [place] [address] 02/02/2024 2:30 PM EST Office Visit Hematology/Oncology [facility] [address] [place] [phone] Mirna Camp CRNP 400 [place] [address] 02/14/2024 1:30 PM EST Office Visit Cardiology, [facility] [address] [facility] [place] [address] Jane Ashley CRNP 400 [place] [address] 05/15/2024 1:00 PM EDT Office Visit Nephrology [address] [place] [address] Charlotte Cope PA-C [address] [place] [address] 06/06/2024 3:20 PM EDT Office Visit Family Medicine [address] [place] [phone] Cathy Wilburn MD [address] [place] [address] [place] [address] Scheduled Orders Name Type Priority Associated Diagnoses Orde r Schedule CULTURE, URINE, QUANTITATIVE Lab Routine Dysuria Expected: 10/26/2023, Expires: 10/25/2024 Health Maintenance Due Date Last Done Comments Adult Wellness Visit 05/30/2021 05/30/2020 COVID-19 Vaccine ( season) 2022 DXA Scan 10/22/2023 10/21/2021, 09/29, 08/28/2018, Additional history exists CKD PHOS USE SMARTSET 55447 08/16/202407/29, 05/12/2023, 11/05/2022, Additional history exists Albumin/Creatinine Ratio 08/24/20242 024, 07/19/2022, 04/06/2021, Additional history exists Depression Monitoring 08/24/2024 08/25/2023 DIG LEVEL FOR MEDICATION MONITORING YEARLY 09/20/2024 09/21/2023, 06/22/2023, 04/29/2023, Additional history exists CKD HGB USE SMARTSET 89381 09/27/202409/27, 09/27/2023, 09/27/2023, Additional history exists DTap/Tdap Vaccines (2 - Td or Tdap) 12/31/2029 01/01/2020 (Declined), 12/30/2009, 12/30/2009, Additional history exists Pneumococcal Vaccine: 65+ Years Completed 02/08/2017, 02/23/2006 VITAMIN D LEVEL ONCE IN A LIFETIME-USE SMARTSET# 52792 Completed 08/17/2023, 06/27/2023, 06/22/2023, Additional history exists [...] this encounter Medical Devices Implanted Type Area Supply Chain Procurement Manager Device Identifier Shelf Expiration Date Model / Serial / Lot Lead Novus Bipolar 58cm - [id number] - [id number] Implanted:Qty: 1 on 04/11/2017 by Elda Patterson DO at OR [facility] Left: Heart [employer] : [facility] 12/18/2018 5076-58 / [id number] / Description:RIGHT VENTRICLE LEAD Lead Novus Bipolar 52cm - [id number] - [id number] Implanted:Qty: 1 on 04/11/2017 by Elda Patterson DO at OR [facility] Left: Heart [employer] : [facility] 12/24/2018 5076-52 / [id number] / Description:RIGHT ATRIAL ROCKY D Pacer Advisa Dr Dorsey - [id number] - [id number] Implanted:Qty: 1 on 04/11/2017 by Elda Patterson DO at OR [facility] Left: Chest [employer] 08/25/2018 A2DR01 / [id number] / documented as of this encounter Visit Diagnoses Diagnosis Dysuria- Primary documented in this encounter Advance Directives Documents on File Type Date Recorded Patient Solid Waste Management Engineer Expl anation POLST 01/05/2021 [place] [facility] * Full Code (Latest [...] 9:35 AM 07/03/2008 5:40 PM Care Teams Humid System Operator Relationship Specialty Start Date End Date Cathy Wilburn MD [address] [place] [address] [place] [phone] PCP - General Family Medicine 12/03/22 documented as of this encounter
--- OUTSIDE RECORDS SUMMARY | 2023-11-28 14:33 | External Medical Summary | Summary of Care ---
Author Name Unknown Organization [facility] Address [address] [place] [address] Phone [phone] Care Team Providers Care Magnet Valve Assembler Name Role Phone Cathy Wilburn MD Primary Care Provide r Reason for Visit * Reason Onset Date Comments Test Results 10/28/2023 Encounter Details Date Type Department Care Team (Late st Contact Info) Description 10/28/[address] [phone] Cathy Wilburn MD [address] [place] [address] [place] [address] Test Results Allergies Active Allergy Reactions [...] MG Oral Tablet (Lipitor)Indication s:Atherosclerosis of [place] coronary artery of [place] heart without angina pectoris,Dyslipidem [place], goal LDL [...] intervertebral disc 02/04/2009 Coronary atherosclerosis of [place] coronary luis ry 02/24/2005 Senile osteoporosis 05/14/2003 [...] 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 LOC PRIM [id number] 02/14/200205/30 Other seborrheic keratosis 10/31/2001 0 06/06/2007 [...] No 09/07/2023 Does the household have a [facility] source [facility]? (Household - for ages [...] Telephone Encounter - Cathy Wilburn MD - 10/28/2023 10:00 AM EDT Please call the pt UA+ for UTI I sent keflex for 1 week --tolerated before documented in this encounter Plan of Treatment Upcoming Encounters Date Type Department Care Team (Late st Contact Info) Description 10/28/2023 2:20 PM EDT Office Visit Family Medicine [address] [place] [phone] Arvin Max MD [address] [place] [address] [place] [address] 12/05/2023 1:00 PM EDT Imaging Radiology, [address] [place] [address] 12/20/2023 11:00 AM EDT Office Visit Orthopaedics [facility] [address] [place] [address] Kian Travis, [address] [place] [address] 12/26/2023 2:30 PM EDT Nurse Only Rheumatology [address] [place] [phone] [place], Nurse Rheum [address] [place] [phone] 01/06/2024 2:00 PM EST Office Visit Nephrology [address] [place] [address] Charlotte Cope PA-C [address] [place] [address] 01/23/2024 2:20 PM EST Office Visit Dermatology [address] [place] [address] Amber Orozco PA-C [address] [place] [address] [place] [address] 02/02/2024 2:30 PM EST Office Visit Hematology/Oncology [facility] [address] [place] [phone] Mirna Camp CRNP 400 [facility] [place] [address] 02/14/2024 1:30 PM EST Office Visit Cardiology, [facility] 132 [facility] [place] [address] Jane Ashley CRNP 400 [place], [place] [phone] 05/15/2024 1:00 PM EDT Office Visit Nephrology [address] [place] [address] Charlotte Cpoe PA-C [address] [place] [address] 06/06/2024 3:20 PM EDT Office Visit Family Medicine [address] [place] [phone] Cathy Wilburn MD [address] [place] [address] [place] [address] Health Maintenance Due Date Last Done Comments Adult Wellness Visit 05/30/2021 05/30/2020 COVID-19 Vaccine ( season) 2022 DXA Scan 10/22/2023 10/21/2021, 09/29, 08/28/2018, Additional history exists CKD PHOS USE SMARTSET 23123 08/16/202407/29, 05/12/2023, 11/05/2022, Additional history exists Albumin/Creatinine Ratio 08/24/2024 024, 07/19/2022, 04/06/2021, Additional history exists Depression Monitoring 08/24/2024 08/25/2023 DIG LEVEL FOR MEDICATION MONITORING YEARLY 09/20/2024 09/21/2023, 06/22/2023, 04/29/2023, Additional history exists CKD HGB USE SMARTSET 84137 09/27/202409/27, 09/27/2023, 09/27/2023, Additional history exists DTap/Tdap Vaccines (2 - Td or Tdap) 12/31/2029 01/01/2020 (Declined), 12/30/2009, 12/30/2009, Additional history exists Pneumococcal Vaccine: 65+ Years Completed 02/08/2017, 02/23/2006 VITAMIN D LEVEL ONCE IN A LIFETIME-USE SMARTSET# 15657 Completed 08/17/2023, 06/27/2023, 06/22/2023, Additional history exists [...] this encounter Medical Devices Implanted Type Area Rn Liaison Device Identifier Shelf Expiration Date Model / Serial / Lot Lead Novus Bipolar 58cm - [id number] - [id number] Implanted:Qty: 1 on 04/11/2017 by Elda Patterson DO at OR [facility] Left: Heart [employer] : CRM 12/18/2018 5076-58 / [id number] / Description:RIGHT VENTRICLE LEAD Lead Novus Bipolar 52cm - [id number] - [id number] Implanted:Qty: 1 on 04/11/2017 by Elda Patterson DO at OR [facility] Left: Heart [employer] : CRM 12/24/2018 5076-52 / [id number] / Description:RIGHT ATRIAL ROCKY D Pacer Advisa Dr Dorsey - [id number] - [id number] Implanted:Qty: 1 on 04/11/2017 by Elda Patterson DO at OR [facility] Left: Chest [employer] 08/25/2018 A2DR01 / [id number] / documented as of this encounter Visit Diagnoses Diagnosis Acute cystitis without hematuria- Primary Acute cystitis documented in this encounter Advance Directives Documents on File Type Date Recorded Patient Pharmaceutical Service Representative Expl anation POLST 01/05/2021 [place] OR [facility] FOR LIFE-SUSTAINING TREATMENT * Full [...] 9:35 AM 07/03/2008 5:40 PM Care Teams Magnet Valve Assembler Relationship Specialty Start Date End Date Cathy Wilburn MD [address] [place] [address] [place] [address] PCP - General Family Medicine 12/03/22 documented as of this encounter
--- OUTSIDE RECORDS SUMMARY | 2023-11-28 14:33 | External Medical Summary | Summary of Care ---
Author Name Unknown Organization [facility] Address [address] [facility] [place] [address] Phone [phone] Care Team Providers Care Racket Stringer Name Role Phone Cathy Wilburn MD Primary Care Provide r Reason for Visit * Reason Comments Outpatient Testing Encounter Details Date Type Department Care Team (Late st Contact Info) Description 10/26/2023 11:10 AM EDT Laboratory Laboratory [address] [place] [phone] , Specimen Drop Off [address] [place] [address] Dysuria Allergies Active Allergy Reactions Criticality Noted Date [...] 40 MG Oral Tablet (Lipitor)Indications :Atherosclerosis of [place] coronary artery of [place] heart without angina pectoris,Dyslipidemi a, goal LDL [...] lumbosacral intervertebral disc 02/04/2009 Coronary atherosclerosis of [place] coronary luis ry 02/24/2005 Senile osteoporosis 05/14/2003 [...] 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 LOC PRIM [id number] 02/14/200205/30 Other seborrheic keratosis 10/31/2001 0 06/06/2007 [...] No 09/21/2023 documented as of this encounter Plan of Treatment Upcoming Encounters Date Type Department Care Team (Late st Contact Info) Description 10/28/2023 2:20 PM EDT Office Visit Family Medicine [address] [phone] Arvin Max MD [address] [place] [address] [place] [address] 12/05/2023 1:00 PM EDT Imaging Radiology, [address] [place] [address] 12/20/2023 11:00 AM EDT Office Visit Orthopaedics [facility] [address] [place] [address] Kian Travis, [address] [place] [address] 12/26/2023 2:30 PM EDT Nurse Only Rheumatology [address] [place] [phone] [place], Nurse [address] [place] [phone] 01/06/2024 2:00 PM EST Office Visit Nephrology [address] [place] [address] Charlotte Cope PA-C 200 [facility] [place] [address] 01/23/2024 2:20 PM EST Office Visit Dermatology [address] [place] [address] Amber Orozco PA-C [address] [place] [address] [place] [address] 02/02/2024 2:30 PM EST Office Visit Hematology/Oncology [facility] [address] [place] [phone] Mirna Camp CRNP [address] [place] [address] 02/14/2024 1:30 PM EST Office Visit Cardiology, [facility] [address] [place] [address] Jane Ashley CRNP [address] [place] [address] 05/15/2024 1:00 PM EDT Office Visit Nephrology [address] [place] [address] Charlotte Cope PA-C [address] [place] [address] 06/06/2024 3:20 PM EDT Office Visit Family Medicine [address] [place] [phone] Cathy Wilburn MD [address] [place] [address] [place] [address] Pending Results Name Type Priority Associated Diagnoses Date /Time URINALYSIS, REFLEX TO MICROSCOPIC Lab Routine Dysuria 10/26/2023 10:30 AM EDT CULTURE, URINE, QUANTITATIVE Lab Routine Dysuria 10/26/2023 4:12 PM EDT Health Maintenance Due Date Last Done Comments Adult Wellness Visit 05/30/2021 05/30/2020 COVID-19 Vaccine ( season) 2022 DXA Scan 10/22/2023 10/21/2021, 09/29, 08/28/2018, Additional history exists CKD PHOS USE SMARTSET 65177 08/16/202407/29, 05/12/2023, 11/05/2022, Additional history exists Albumin/Creatinine Ratio 08/24/2024 024, 07/19/2022, 04/06/2021, Additional history exists Depression Monitoring 08/24/2024 08/25/2023 DIG LEVEL FOR MEDICATION MONITORING YEARLY 09/20/2024 09/21/2023, 06/22/2023, 04/29/2023, Additional history exists CKD HGB USE SMARTSET 39741 09/27/202409/27, 09/27/2023, 09/27/2023, Additional history exists DTap/Tdap Vaccines (2 - Td or Tdap) 12/31/2029 01/01/2020 (Declined), 12/30/2009, 12/30/2009, Additional history exists Pneumococcal Vaccine: 65+ Years Completed 02/08/2017, 02/23/2006 VITAMIN D LEVEL ONCE IN A LIFETIME-USE SMARTSET# 61852 Completed 08/17/2023, 06/27/2023, 06/22/2023, Additional history exists [...] this encounter Medical Devices Implanted Type Area Enzyme Chemist Device Identifier Shelf Expiration Date Model / Serial / Lot Lead Novus Bipolar 58cm - [id number] - [id number] Implanted:Qty: 1 on 04/11/2017 by Elda Patterson DO at OR [facility] Left: Heart [employer] : YONATHAN 12/18/2018 5076-58 / [id number] / Description:RIGHT VENTRICLE LEAD Lead Novus Bipolar 52cm - [id number] - [id number] Implanted:Qty: 1 on 04/11/2017 by Elda Patterson DO at OR [facility] Left: Heart [employer] : YONATHAN 12/24/2018 5076-52 / [id number] / Description:RIGHT ATRIAL ROCKY D Pacer Advisa Dr Dorsey - [id number] - [id number] Implanted:Qty: 1 on 04/11/2017 by Elda Patterson DO at OR [facility] Left: Chest [employer] 08/25/2018 A2DR01 / [id number] / documented as of this encounter Visit Diagnoses Diagnosis Dysuria documented in this encounter Advance Directives Documents on File Type Date Recorded Patient Drawer In Stitch Bonding Machine Michaela MORRIS 01/05/2021 [place] OR [facility] FOR LIFE-SUSTAINING [...] 9:35 AM 07/03/2008 5:40 PM Care Teams Racket Stringer Relationship Specialty Start Date End Date Cathy Wilburn MD [address] [place] [address] [place] [address] PCP - General Family Medicine 12/03/22 documented as of this encounter
--- OUTSIDE RECORDS SUMMARY | 2023-11-28 14:33 | External Medical Summary ---
Author Name Unknown Address Unknown Organization K01:[facility] [place] [address] [place] [address] Laboratory Report Ordering Provider Test Date Status JAGDISH BALDERAS 10/28/2023 14:55:08 Final Observation Date Value Abnormality Reference (Units ) Status BUN 10/28/2023 14:55:08 26 Above high normal 6-20 (mg/dL) Final Creatinine 10/28/2023 14:55:08 1.5 Above high normal 0.5-1.0 (mg/dL) Final Glomerular filtration rate/1.73 sq M.predicted [Volume Rate/Area] in Serum, Plasma or Blood by Creatinine-based formula (CKD-EPI) 10/28/2023 14:55:08 33 Below low normal >=60 (mL/min) Final eGFR is calculated based on the CKD-EPI 2020 equation. Sodium 10/28/2023 14:55:08 139 135-146 (m mol/L) Final Potassium 10/28/2023 14:55:08 4.9 3.5-5.1 (m mol/L) Final Cl 10/28/2023 14:55:08 101 98-107 (mm ol/L) Final CO2 10/28/2023 14:55:08 25 22-32 (mmo l/L) Final Anion gap 10/28/2023 14:55:08 13 7-15 (mmol /L) Final Glucose 10/28/2023 14:55:08 73 70-120 (mg /dL) Final Calcium 10/28/2023 14:55:08 10.7 Above high normal 8. 4-10.2 (mg/dL) Final Performing Location [facility] [place] - [address] [place] [address]
--- OUTSIDE RECORDS SUMMARY | 2023-11-28 14:33 | External Medical Summary | Summary of Care ---
Author Name Unknown Organization [facility] Address [address] [place] [address] Phone [phone] Care Team Providers Care Operations Lieutenant Name Role Phone Cathy Wilburn MD Primary Care Provide r Reason for Visit * Reason Onset Date Comments Home Health 10/26/2023 Order Request 10/26/2023 Urinary Tract Infection Symptoms 10/26/2023 Encounter Details Date Type Department Care Team (Late st Contact Info) Description 10/26/2023 Telephone Family Medicine [address] [place] [phone] Cathy Wilburn MD [address] [place] [address] [place] [address] Home Health; Order Request; Urinary Tract ... [...] 40 MG Oral Tablet (Lipitor)Indications :Atherosclerosis of [place] coronary artery of [place] heart without angina pectoris,Dyslipidemi a, goal [...] lumbosacral intervertebral disc 02/04/2009 Coronary atherosclerosis of [place] coronary luis ry 02/24/2005 Senile osteoporosis [...] 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 LOC PRIM [id number] 02/14/200205/30 Other seborrheic keratosis 10/31/2001 0 06/06/2007 [...] No 09/07/2023 Does the household have a [facility] source of income? (Household - for [...] - 10/26/2023 10:14 AM EDT HH Concerns LISET Schaeffer, Calling from: Meliza SOLIS Report/Concerns of: UTI Symptoms: uti- burning Vitals: NA Narrative: Reports that she spoke with the pt via phone today and pt reports dysuria. Is asking if order for UA C&S could be provided? Laury will be going out to see the pt today. Call back Laury with any advice or orders at [phone] Please fax new orders to [facility] [phone] documented in this encounter Plan of Treatment Upcoming Encounters Date Type Department Care Team (Late st Contact Info) Description 10/28/2023 2:20 PM EDT Office Visit Family Medicine [address] [place] [phone] Arvin Max MD [address] [place] [address] [place] [address] 12/05/2023 1:00 PM EDT Imaging Radiology, [address] [place] [address] 12/20/2023 11:00 AM EDT Office Visit Orthopaedics [facility] [address] [place] [address] Kian Travis, [address] [place] [address] 12/26/2023 2:30 PM EDT Nurse Only Rheumatology [address] [place] [phone] [place], Nurse Rheum [address] [place] [phone] 01/06/2024 2:00 PM EST Office Visit Nephrology [address] [place] [address] Charlotte Cope PA-C [address] [place] [address] 01/23/2024 2:20 PM EST Office Visit Dermatology [address] [place] [address] Amber Orozco PA-C [address] [place] [address] [place] [address] 02/02/2024 2:30 PM EST Office Visit Hematology/Oncology [facility] [address] [place] [phone] Mirna Camp CRNP [facility] [place] [address] 02/14/2024 1:30 PM EST Office Visit Cardiology, [facility] [address] [facility] [place] [address] Jane Ashley CRNP 400 [facility] [place] [address] 05/15/2024 1:00 PM EDT Office Visit Nephrology [address] [place] [address] Charlotte Cope PA-C [address] [place] [address] 06/06/2024 3:20 PM EDT Office Visit Family Medicine [address] [place] [phone] Cathy Wilburn MD [address] [place] [address] [place] [address] Scheduled Orders Name Type Priority Associated Diagnoses Orde r Schedule CULTURE, URINE, QUANTITATIVE Lab Routine Dysuria Expected: 10/26/2023, Expires: 10/25/2024 Health Maintenance Due Date Last Done Comments Adult Wellness Visit 05/30/2021 05/30/2020 COVID-19 Vaccine ( season) 2022 DXA Scan 10/22/2023 10/21/2021, 09/29, 08/28/2018, Additional history exists CKD PHOS USE SMARTSET 65472 08/16/202407/29, 05/12/2023, 11/05/2022, Additional history exists Albumin/Creatinine Ratio 08/24/2024 024, 07/19/2022, 04/06/2021, Additional history exists Depression Monitoring 08/24/2024 08/25/2023 DIG LEVEL FOR MEDICATION MONITORING YEARLY 09/20/2024 09/21/2023, 06/22/2023, 04/29/2023, Additional history exists CKD HGB USE SMARTSET 58616 09/27/202409/27, 09/27/2023, 09/27/2023, Additional history exists DTap/Tdap Vaccines (2 - Td or Tdap) 12/31/2029 01/01/2020 (Declined), 12/30/2009, 12/30/2009, Additional history exists Pneumococcal Vaccine: 65+ Years Completed 02/08/2017, 02/23/2006 VITAMIN D LEVEL ONCE IN A LIFETIME-USE SMARTSET# 92497 Completed 08/17/2023, 06/27/2023, 06/22/2023, Additional history exists [...] this encounter Medical Devices Implanted Type Area Linoleum Floor Installer Device Identifier Shelf Expiration Date Model / Serial / Lot [place] Novus Bipolar 58cm - [id number] - [id number] Implanted:Qty: 1 on 04/11/2017 by Elda Patterson DO at OR [facility] Left: Heart [employer] : [facility] 12/18/2018 5076-58 / [id number] / Description:RIGHT VENTRICLE LEAD [place] Novus Bipolar 52cm - [id number] - [id number] Implanted:Qty: 1 on 04/11/2017 by Elda Patterson DO at OR [facility] Left: Heart [employer] : [facility] 12/24/2018 5076-52 / [id number] / Description:RIGHT ATRIAL ROCKY D Pacer Advisa Dr Dorsey - [id number] - [id number] Implanted:Qty: 1 on 04/11/2017 by Elda Patterson DO at OR [facility] Left: Chest [employer] 08/25/2018 A2DR01 / [id number] / documented as of this encounter Visit Diagnoses Diagnosis Dysuria- Primary documented in this encounter Advance Directives Documents on File Type Date Recorded Patient Route Rider Expl anatnati POLST 01/05/2021 [place] OR [facility] FOR LIFE-SUSTAINING TREATMENT * Full Code (Latest [...] 9:35 AM 07/03/2008 5:40 PM Care Teams Operations Lieutenant Relationship Specialty Start Date End Date Cathy Wilburn MD [address] [place] [address] [place] [address] PCP - General Family Medicine 12/03/22 documented as of this encounter
--- OUTSIDE RECORDS SUMMARY | 2023-11-28 14:33 | External Medical Summary | Summary of Care ---
Author Name Unknown Organization [facility] Address [address] [place] [address] Phone [phone] Care Team Providers Care Biological Inspector Name Role Phone Cathy Wilburn MD Primary Care Provide r Reason for Visit * Reason Onset Date Comments Test Results 10/28/2023 Encounter Details Date Type Department Care Team (Late st Contact Info) Description 10/28/[address] [phone] Cathy Wilburn MD [address] [place] [address] [place] [address] Test Results Allergies Active Allergy Reactions [...] 40 MG Oral Tablet (Lipitor)Indication s:Atherosclerosis of [place] coronary artery of [place] heart without angina pectoris,Dyslipidem ia, goal LDL [...] lumbosacral intervertebral disc 02/04/2009 Coronary atherosclerosis of [place] coronary luis ry 02/24/2005 Senile osteoporosis 05/14/2003 [...] 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 LOC PRIM [id number] 02/14/200205/30 Other seborrheic keratosis 10/31/2001 0 06/06/2007 [...] No 09/07/2023 Does the household have a [facility] source [facility] income? (Household - for [...] Telephone Encounter - Ale Cox CMA - 10/28/2023 12:07 PM EDT Patient aware. * Telephone Encounter - Cathy Wilburn MD - 10/28/2023 10:00 AM EDT Please call the pt UA+ for UTI I sent keflex for 1 week --tolerated before documented in this encounter Plan of Treatment Upcoming Encounters Date Type Department Care Team (Late st Contact Info) Description 10/28/2023 2:20 PM EDT Office Visit Family Medicine [address] [place] [phone] Arvin Max MD [address] [place] [address] [place] [address] 12/05/2023 1:00 PM EDT Imaging Radiology, [address] [place] [address] 12/20/2023 11:00 AM EDT Office Visit Orthopaedics [facility] [address] [place] [address] Kian Travis, [address] [place] [address] 12/26/2023 2:30 PM EDT Nurse Only Rheumatology [address] [place] [phone] [place], [address] [place] [phone] 01/06/2024 2:00 PM EST Office Visit Nephrology [address] [place] [address] Charlotte Cope PA-C [address] [place] [address] 01/23/2024 2:20 PM EST Office Visit Dermatology [address] [place] [address] Amber Orozco PA-C [address] [place] [address] [place] [address] 02/02/2024 2:30 PM EST Office Visit Hematology/Oncology [facility] [address] [place] [phone] Mirna Camp CRNP 400 [facility] [place] [address] 02/14/2024 1:30 PM EST Office Visit Cardiology, [facility] 132 [facility] [place] [address] Jane Ashley CRNP 400 [facility] [address] 05/15/2024 1:00 PM EDT Office Visit Nephrology [address] [place] [address] Charlotte Cope PA-C [address] [place] [address] 06/06/2024 3:20 PM EDT Office Visit Family Medicine [address] [place] [phone] Cathy Wilburn MD [address] [place] [address] [place] [address] Health Maintenance Due Date Last Done Comments Adult Wellness Visit 05/30/2021 05/30/2020 COVID-19 Vaccine (2022- season) 2022 DXA Scan 10/22/2023 10/21/2021, 09/29, 08/28/2018, Additional history exists CKD PHOS USE SMARTSET 93136 08/16/202407/29, 05/12/2023, 11/05/2022, Additional history exists Albumin/Creatinine Ratio 08/24/2024 024, 07/19/2022, 04/06/2021, Additional history exists Depression Monitoring 08/24/2024 08/25/2023 DIG LEVEL FOR MEDICATION MONITORING YEARLY 09/20/2024 09/21/2023, 06/22/2023, 04/29/2023, Additional history exists CKD HGB USE SMARTSET 99666 09/27/202409/27, 09/27/2023, 09/27/2023, Additional history exists DTap/Tdap Vaccines (2 - Td or Tdap) 12/31/2029 01/01/2020 (Declined), 12/30/2009, 12/30/2009, Additional history exists Pneumococcal Vaccine: 65+ Years Completed 02/08/2017, 02/23/2006 VITAMIN D LEVEL ONCE IN A LIFETIME-USE SMARTSET# 33238 Completed 08/17/2023, 06/27/2023, 06/22/2023, Additional history exists [...] this encounter Medical Devices Implanted Type Area Data Integration Analyst Device Identifier Shelf Expiration Date Model / Serial / Lot [place] Novus Bipolar 58cm - [id number] - [id number] Implanted:Qty: 1 on 04/11/2017 by Elda Pattesron DO at OR [facility] Left: Heart [employer] : [facility] 12/18/2018 5076-58 / [id number] / Description:RIGHT VENTRICLE LEAD [place] Novus Bipolar 52cm - [id number] - [id number] Implanted:Qty: 1 on 04/11/2017 by Elda Patterson DO at OR [facility] Left: Heart [employer] : [facility] 12/24/2018 5076-52 / [id number] / Description:RIGHT ATRIAL ROCKY D Pacer Advisa Dr Dorsey - [id number] - [id number] Implanted:Qty: 1 on 04/11/2017 by Elda Patterson DO at OR [facility] Left: Chest [employer] 08/25/2018 A2DR01 / [id number] / documented as of this encounter Visit Diagnoses Diagnosis Acute cystitis without hematuria- Primary Acute cystitis documented in this encounter Advance Directives Documents on File Type Date Recorded Patient Entry Specialists Expl anation POL 01/05/2021 [place] OR [facility] FOR LIFE-SUSTAINING TREATMENT * Full Code [...] 9:35 AM 07/03/2008 5:40 PM Care Teams Biological Inspector Relationship Specialty Start Date End Date Cathy Wilburn MD [address] [place] [address] [place] [address] PCP - General Family Medicine 12/03/22 documented as of this encounter
--- OUTSIDE RECORDS SUMMARY | 2023-11-28 14:33 | External Medical Summary ---
Author Name Unknown Address Unknown Organization K01:[facility] - [address] [facility] [address] Laboratory Report Ordering Provider Test Date Status KYRADENNISJAGDISH 10/28/2023 14:55:08 Final Observation Date Value Abnormality Reference (Units ) Status SYNC LEUKOCYTES IN BLOOD BY AUTOMATED COUNT 10/28/2023 14:55:08 6.87 4.00-10.80 (K/uL) Final Segs 10/28/2023 14:55:08 58.6 40.0-75.0 (%) Final Lymphs % 10/28/2023 14:55:08 23.4 18.0-42.0 (%) Final Monos 10/28/2023 14:55:08 12.1 Above high normal 1.0-11.0 (%) Final Eosinophils 10/28/2023 14:55:08 3.1 0.0-6.0 (%) Final Basos 10/28/2023 14:55:08 0.9 0.0-2.0 (%) Final Immature Granulocyte, Percent 10/28/2023 14:55:08 1.9 0.0-2.0 (%) Final Absolute Segs 10/28/2023 14:55:08 4.03 1.80-7.70 (K/uL) Final Lymphs, absolute 10/28/2023 14:55:08 1.61 1.00-4.80 (K/ul) Final Monos, Abs 10/28/2023 14:55:08 0.83 0.00-1.10 (K/uL) Final Eos, Abs 10/28/2023 14:55:08 0.21 0.00-0.70 (K/uL) Final Basos, Abs 10/28/2023 14:55:08 0.06 0.00-0.20 (K/uL) Final Immature Granulocytes, Number 10/28/2023 14:55:08 0.13 0.00-0.20 (K/uL) Final Performing Location [place] [place] [address] [facility] [address]
--- OUTSIDE RECORDS SUMMARY | 2023-11-28 14:33 | External Medical Summary ---
Author Name Unknown Address Unknown Organization K01:[facility] - [address] [facility] [address] [facility] [address] Laboratory Report Ordering Provider Test Date Status ILDEFONSO ARREOLA 10/26/2023 16:12:10 Litzy l <10,000 colonies/ml mixed no rmal rita Observation Date Value Abnormality Reference (Units ) Status Bacteria identified in Specimen by Culture 10/26/2023 16:12:10 [id number]^ESCHE RICHIA COLI Abnormal Final >100,000 colonies/mL Escheri servando coli Performing Location [facility] - [address] [place] [address] Ordering Provider Test Date Status ILDEFONSO ARREOLA 10/26/2023 16:12:10 Litzy l Observation Date Value Abnormality Reference (Units ) Status Ampicillin 10/26/2023 16:12:10 <=2 Susceptible Final Cefazolin 10/26/2023 16:12:10 <=4 Susceptible Final Cefepime susceptibility 10/26/2023 16:12:10 <=1 Susceptible Final Ceftriaxone suceptibility 10/26/2023 16:12:10 <=1 Susceptible Final Ciprofloxacin 10/26/2023 16:12:10 <=0.25 Susceptible Final Due to serious side effects, the FDA has advised against using Ciprofloxacin to treat uncomplicated UTIs and respiratory tract infections unless there are no alternative treatment options. Gentamicin susceptibility 10/26/2023 16:12:10 <=1 Susc eptible Final Nitrofurantoin susceptibility 10/26/2023 16:12:10 <=16 Susceptible Final Piperacillin + Tazobactamsusceptibility 10/26/2023 16:12:10 <=4 Susceptible Final TMP-SMZ susceptibility 10/26/2023 16:12:10 <=20 Suscept ible Final Test: Culture, Urine, Quanti tative
Specimen Source: Urine, Clean Catch
Specimen Type: Urine
Specimen Date: 10/26/2023 1612
Result Date: 10/28/2023 1012
Result Status: Final result
Abnormal: Yes
Resulting Lab: [facility] [place]
[address] [facility] [address]

CULTURE

>100,000 colonies/mL Escherichia coli (Abnormal)

<10,000 colonies/ml mixed normal rita

SUSCEPTIBILITY

Escherichia coli
METHOD MICROBROTH
DILUTIONS

AMPICILLIN <=2 Susceptible
CEFAZOLIN <=4 Susceptible
CEFEPIME <=1 Susceptible
CEFTRIAXONE <=1 Susceptible
CIPROFLOXACIN <=0.25 Susceptible
[1]
GENTAMICIN <=1 Susceptible
NITROFURANTOIN <=16 Susceptible
PIPERACILLIN TAZOBACTAM <=4 Susceptible
TRIMETH/SULFAMETHOXAZOLE <=20 Susceptible

[1] Due to serious side effects, the FDA has advised against using
Ciprofloxacin to treat uncomplicated UTIs and respiratory tract infections
unless there are no alternative treatment options.

null Performing Location [facility] [place] [address] [facility] [address] [facility] [address]
--- OUTSIDE RECORDS SUMMARY | 2023-11-28 14:33 | External Medical Summary | Summary of Care ---
Author Name Unknown Organization [facility] Address [address] [place] [facility] [place] [address] Phone [phone] Care Team Providers Care Strapping Machine Tender Name Role Phone Cathy Wilburn MD Primary Care Provide r Reason for Visit * Reason Comments Outpatient Testing Encounter Details Date Type Department Care Team (Latest Contact Info) Description 10/28/2023 3:00 PM EDT Laboratory Laboratory [address] [place] [phone] [facility] [address] [place] [address] Retroperitoneal hematoma; Chronic kidney disease, stage 3b ([facility]) Allergies Active Allergy Reactions Criticality Noted Date [...] 40 MG Oral Tablet (Lipitor)Indication s:Atherosclerosis of [place] coronary artery of [place] heart without angina pectoris,Dyslipidem ia, goal LDL [...] lumbosacral intervertebral disc 02/04/2009 Coronary atherosclerosis of [place] coronary luis ry 02/24/2005 Senile osteoporosis [...] 11/06/2019 03/17/2023 Acute blood loss anemia 10/22/2019 07/02/2023 Hypertensive heart and kidne y disease with [...] 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 LOC PRIM [id number] 02/14/200205/30 Other seborrheic keratosis 10/31/2001 0 06/06/2007 [...] Description 12/05/2023 1:00 PM EDT Imaging Radiology, [address] [place] [address] 12/20/2023 11:00 AM EDT Office Visit Orthopaedics [facility] [address] [place] [address] Kian Travis DO [address] [place] [address] 12/26/2023 2:30 PM EDT Nurse Only Rheumatology [address] [place] [phone] [place], Nurse Rheum [address] [place] [phone] 01/06/2024 2:00 PM EST Office Visit Nephrology [address] [place] [address] Charlotte Cope PA-C 200 [facility] [place] [address] 01/23/2024 2:20 PM EST Office Visit Dermatology [address] [place] [address] Amber Orozco PA-C [address] [place] [address] [place] [address] 02/02/2024 2:30 PM EST Office Visit Hematology/Oncology [facility] [address] [place] [phone] Mirna Camp CRNP [address] [place] [address] 02/14/2024 1:30 PM EST Office Visit Cardiology, [facility] [address] [place] [address] Jane Ashley CRNP [address] [place] [address] 05/15/2024 1:00 PM EDT Office Visit Nephrology [address] [place] [address] Charlotte Cope PA-C [address] [place] [address] 06/06/2024 3:20 PM EDT Office Visit Family Medicine [address] [place] [phone] Cathy Wilburn MD [address] [place] [address] [place] [address] Pending Results Name Type Priority Associated Diagnoses Date /Time CBC WITH WBC DIFFERENTIAL Lab Routine Retroperitoneal hematoma 10/28/2023 2:55 PM EDT BASIC METABOLIC PANEL Lab Routine Chronic kidney disease, stage 3b (HCC) 10/28/2023 2:55 PM EDT CBC Lab Routine Retroperitoneal hematoma 10/28/2023 2:55 PM EDT DIFFERENTIAL, AUTOMATED Lab Routine Retroperitoneal hematoma 10/28/2023 2:55 PM EDT Health Maintenance Due Date Last Done Comments Adult Wellness Visit 05/30/2021 05/30/2020 COVID-19 Vaccine ( season) 2022 DXA Scan 10/22/2023 10/21/2021, 09/29, 08/28/2018, Additional history exists CKD PHOS USE SMARTSET 85002 08/16/202407/29, 05/12/2023, 11/05/2022, Additional history exists Albumin/Creatinine Ratio 08/24/2024 024, 07/19/2022, 04/06/2021, Additional history exists Depression Monitoring 08/24/2024 08/25/2023 DIG LEVEL FOR MEDICATION MONITORING YEARLY 09/20/2024 09/21/2023, 06/22/2023, 04/29/2023, Additional history exists CKD HGB USE SMARTSET 10893 09/27/202409/27, 09/27/2023, 09/27/2023, Additional history exists DTap/Tdap Vaccines (2 - Td or Tdap) 12/31/2029 01/01/2020 (Declined), 12/30/2009, 12/30/2009, Additional history exists Pneumococcal Vaccine: 65+ Years Completed 02/08/2017, 02/23/2006 VITAMIN D LEVEL ONCE IN A LIFETIME-USE SMARTSET# 76705 Completed 08/17/2023, 06/27/2023, 06/22/2023, Additional history exists [...] this encounter Medical Devices Implanted Type Area Plastic Finisher Device Identifier Shelf Expiration Date Model / Serial / Lot [place] Novus Bipolar 58cm - [id number] - [id number] Implanted:Qty: 1 on 04/11/2017 by Elda Patterson DO at OR [facility] Left: Heart [employer] : [employer]ONATHAN 12/18/2018 5076-58 / [id number] / Description:RIGHT VENTRICLE LEAD Lead Novus Bipolar 52cm - [id number] - [id number] Implanted:Qty: 1 on 04/11/2017 by Elda Patterson DO at OR [facility] Left: Heart [employer] : [employer]AN 12/24/2018 5076-52 / [id number] / Description:RIGHT ATRIAL ROCKY D Pacer Advisa Dr Dorsey - [id number] - [id number] Implanted:Qty: 1 on 04/11/2017 by Elda Patterson DO at OR [facility] Left: Chest [employer] 08/25/2018 A2DR01 / [id number] / documented as of this encounter Visit Diagnoses Diagnosis Retroperitoneal hematoma Hemorrhage, unspecified Chronic kidney disease, stage 3b (HCC) documented in this encounter Advance Directives Documents on File Type Date Recorded Patient Curatorial Assistant Expl anation POLST 01/05/2021 [place] OR [facility] FOR LIFE-SUSTAINING [...] 9:35 AM 07/03/2008 5:40 PM Care Teams Strapping Machine Tender Relationship Specialty Start Date End Date Cathy Wilburn MD [address] [place] [address] [place] [address] PCP - General Family Medicine 12/03/22 documented as of this encounter
--- OUTSIDE RECORDS SUMMARY | 2023-11-28 14:33 | External Medical Summary ---
Author Name Unknown Address Unknown Organization K01:[place] [place] [address] [facility] [address] [facility] [address] Laboratory Report Ordering Provider Test Date Status JAGDISH BALDERAS 10/28/2023 14:55:08 Final Observation Date Value Abnormality Reference (Units ) Status WBC, Total 10/28/2023 14:55:08 6.87 4.00-10.80 (K/uL) Final RBC 10/28/2023 14:55:08 3.88 3.85-5.15 (M/uL) Final Hemoglobin 10/28/2023 14:55:08 12.4 12.0-15.3 (g/dL) Final HCT 10/28/2023 14:55:08 41.3 36.0-45.2 (%) Final MCV 10/28/2023 14:55:08 106.4 81.5-97.5 (fL) Final MCH 10/28/2023 14:55:08 32.0 27.0-34.0 (pg) Final MCHC 10/28/2023 14:55:08 30.0 32.0-36.0 (g/dL) Final RDW 10/28/2023 14:55:08 15.4 11.5-15.5 (%) Final Platelets 10/28/2023 14:55:08 228 140-400 (K/uL) Final MPV 10/28/2023 14:55:08 9.1 6.6-11.1 (fL) Final Nucleated erythrocytes/100 leukocytes [Ratio] in Blood by Automated count 10/28/2023 14:55:08 0 <=0 (/100 WBCs) Final Performing Location [facility] [place] [address] [place] [address]
--- OUTSIDE RECORDS SUMMARY | 2023-11-28 14:34 | External Medical Summary ---
Author Name Unknown Address Unknown Organization K01:[facility] [address] [facility] [address] Laboratory Report Ordering Provider Test Date Status ILDEFONSO ARREOLA 10/26/2023 10:30:00 Litzy l Observation Date Value Abnormality Reference (Units ) Status Color of Urine by Auto 10/26/2023 10:30:00 Light Yellow Colorless, Light Yellow, Yellow, Dark Yellow Final Clarity, Urine 10/26/2023 10:30:00 Cloudy Abnormal Clear Final Glucose [Mass/volume] in Urine by Automated test strip 10/26/2023 10:30:00 Negative Negative (mg/dL) Final Bilirubin.total [Presence] in Urine by Automated test strip 10/26/2023 10:30:00 Negative Negative Final Ketones [Mass/volume] in Urine by Automated test strip 10/26/2023 10:30:00 Negative Negative (mg/dL) Final Specific gravity, Urine 10/26/2023 10:30:00 1.017 1.003-1.030 Final Hemoglobin [Presence] in Urine by Automated test strip 10/26/2023 10:30:00 Large Abnormal Negative Final pH, Urine 10/26/2023 10:30:00 6.5 5.0-7.5 (Units) Final Protein [Mass/volume] in Urine by Automated test strip 10/26/2023 10:30:00 >300 Abnormal Negative (mg/dL) Final Urobilinogen [Mass/volume] in Urine by Automated test strip 10/26/2023 10:30:00 Normal Normal (mg/dL) Final Nitrite [Presence] in Urine by Automated test strip 10/26/2023 10:30:00 Positive Abnormal Negative Final Leukocyte esterase [Presence] in Urine by Automated test strip 10/26/2023 10:30:00 Large Abnormal Negative Final RBC, Urine 10/26/2023 10:30:00 50+ Abnormal 0-2 (/HPF) Final WBC, Urine 10/26/2023 10:30:00 50+ Abnormal 0-2 (/HPF) Final Bacteria [#/area] in Urine sediment by Microscopy high power field 10/26/2023 10:30:00 151-200 Abnormal 0-25 (/HPF) Final Performing Location LABORATORY [facility] - [facility] [address]. [facility] [address]
--- OUTSIDE RECORDS SUMMARY | 2023-11-28 14:34 | External Medical Summary | Summary of Care ---
Author Name Unknown Organization [facility] Address [address] [place] [address] Phone [phone] Care Team Providers Care Clinical Psychology Teacher Name Role Phone Maxwell Fregoso MD Primary Care Provide r Reason for Visit * Reason Comments eRx-Medication Refill Encounter Details Date Type Department Care Team (Late st Contact Info) Description 10/25/2023 Refill Family Medicine [address] [place] [phone] Maxwell Fregoso MD [address] [place] [address] [place] [address] Allergies Active Allergy Reactions Criticality Noted Date [...] MG Oral Tablet (Lipitor)Indicati ons:Atheroscleros is of [place] coronary artery of [place] heart without angina pectoris,Dyslipid emia, goal LDL [...] AT BEDTIME 180 Tablet 1 10/26/2023 Active Sennosides-Docusa te Sodium 8.6-50 MG Oral Tablet (Senexon-S) Take 2 Tablets by mouth in the morning. Discontinued documented as of this encounter (statuses [...] lumbosacral intervertebral disc 02/04/2009 Coronary atherosclerosis of [place] coronary luis ry 02/24/2005 Senile osteoporosis 05/14/2003 [...] 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 LOC PRIM [id number] 02/14/200205/30 Other seborrheic keratosis 10/31/2001 0 06/06/2007 [...] No 09/07/2023 Does the household have a [facility] income? (Household - for [...] Telephone Encounter - Maxwell Fregoso MD - 10/26/2023 8:11 AM EDT Signed Prescriptions: Disp Refills Senexon-S 8.6-50 MG Oral Tablet (senna-doc*180 Ta*1 Sig: TAKE TWO TABLETS AT BEDTIME Authorizing Provider: MAXWELL FREGOSO * Telephone Encounter - Aliyah Hernandez RN - 10/26/2023 8:10 AM EDTPending Prescriptions: Disp Refills Senexon-S 8.6-50 MG Oral Tablet (senna-doc*180 Ta*1 Sig: TAKE TWO TABLETS AT BEDTIME * Telephone Encounter - Estrada Rendon - 10/26/2023 4:36 AM EDTPending Prescriptions: Disp Refills Senexon-S 8.6-50 MG Oral Tablet [Pharmacy *180 Ta*0 Sig: TAKE TWO TABLETS AT BEDTIME documented in this encounter Plan of Treatment Upcoming Encounters Date Type Department Care Team (Late st Contact Info) Description 10/28/2023 2:20 PM EDT Office Visit Family Medicine [address] [place] [phone] Arvin Max MD [address] [place] [address] [place] [address] 12/05/2023 1:00 PM EDT Imaging [place]iology, [address] [place] [address] 12/20/2023 11:00 AM EDT Office Visit Orthopaedics [facility] [address] [place] [address] Kian Travis, [address] [place] [address] 12/26/2023 2:30 PM EDT Nurse Only Rheumatology [address] [place] [phone] [place], Nurse Rheum [address] [place] [address] 01/06/2024 2:00 PM EST Office Visit Nephrology [address] [place] [address] Charlotte Cope PA-C [address] [place] [address] 01/23/2024 2:20 PM EST Office Visit Dermatology [address] [place] [address] Amber Orozco PA-C [address] [place] [address] [place] [address] 02/02/2024 2:30 PM EST Office Visit Hematology/Oncology [facility] [address] [place] [address] Mirna Camp CRNP [address] [place] [address] 02/14/2024 1:30 PM EST Office Visit Cardiology, [facility] [address] [facility] [place] [address] Jane Ashley CRNP [address] [place] [address] 05/15/2024 1:00 PM EDT Office Visit Nephrology [address] [place] [address] Charlotte Cope PA-C 200 [facility] [place] [address] 06/06/2024 3:20 PM EDT Office Visit Family Medicine [address] [place] [phone] Maxwell Fregoso MD [address] [place] [address] [place] [address] Health Maintenance Due Date Last Done Comments Adult Wellness Visit 05/30/2021 05/30/2020 COVID-19 Vaccine ( season) 2022 DXA Scan 10/22/2023 10/21/2021, 09/29, 08/28/2018, Additional history exists CKD PHOS USE SMARTSET 56460 08/16/202407/29, 05/12/2023, 11/05/2022, Additional history exists Albumin/Creatinine Ratio 08/24/2024 024, 07/19/2022, 04/06/2021, Additional history exists Depression Monitoring 08/24/2024 08/25/2023 DIG LEVEL FOR MEDICATION MONITORING YEARLY 09/20/2024 09/21/2023, 06/22/2023, 04/29/2023, Additional history exists CKD HGB USE SMARTSET 05910 09/27/202409/27, 09/27/2023, 09/27/2023, Additional history exists DTap/Tdap Vaccines (2 - Td or Tdap) 12/31/2029 01/01/2020 (Declined), 12/30/2009, 12/30/2009, Additional history exists Pneumococcal Vaccine: 65+ Years Completed 02/08/2017, 02/23/2006 VITAMIN D LEVEL ONCE IN A LIFETIME-USE SMARTSET# 01525 Completed 08/17/2023, 06/27/2023, 06/22/2023, Additional history exists [...] this encounter Medical Devices Implanted Type Area Stamp Classifier Device Identifier Shelf Expiration Date Model / Serial / Lot Lead Novus Bipolar 58cm - [id number] - [id number] Implanted:Qty: 1 on 04/11/2017 by Elda Patterson DO at OR [facility] Left: Heart [employer] : [facility] 12/18/2018 5076-58 / [id number] / Description:RIGHT VENTRICLE LEAD Lead Novus Bipolar 52cm - [id number] - [id number] Implanted:Qty: 1 on 04/11/2017 by Elda Patterson DO at OR [facility] Left: Heart [employer] : CRM 12/24/2018 5076-52 / [id number] / Description:RIGHT ATRIAL ROCKY D Pacer Advisa Dr Dorsey - [id number] - [id number] Implanted:Qty: 1 on 04/11/2017 by Elda Patterson DO at OR [facility] Left: Chest [employer] 08/25/2018 A2DR01 / [id number] / documented as of this encounter Advance Directives Documents on File Type Date Recorded Patient Photocopy Operator Expl anation POL 01/05/2021 [place] [facility] [...] 9:35 AM 07/03/2008 5:40 PM Care Teams Clinical Psychology Teacher Relationship Specialty Start Date End Date Maxwell Fregoso MD [address] [place] [address] [place] [phone] PCP - General Family Medicine 12/03/22 documented as of this encounter
--- OUTSIDE RECORDS SUMMARY | 2023-11-28 14:34 | External Medical Summary | Summary of Care ---
Author Name Unknown Organization [facility] Address [address] [place] [address] Phone [phone] Care Team Providers Care Low Raw Sugar Cutter Name Role Phone Cathy Wilburn MD Primary Care Provide r Encounter Details Date Type Department Care Team (Late st Contact Info) Description 10/20/2023 1:15 PM EDT Scheduled Telephone Care Coordination and Integration [address] [place], [place] [phone] Faby Campos [facility] Medical Accounts Receivable Specialist [address] [place], [place] [phone] Allergies Active Allergy Reactions Criticality Noted Date [...] as of this encounter (statuses as of 10/20/2023) Medications Medication Sig Dispensed Refills Start Date End Date Status Acetaminophen 325 MG Oral Tablet (Tylenol) Take by mouth 2 Tablets every 4 hours as needed for Fever >38C(100.5F), Pain, Mild, Pain, Moderate or Pain, Severe. 100 Tablet 1 2021 Active Atorvastatin Calcium 40 MG Oral Tablet (Lipitor)Indications :Atherosclerosis of [place] coronary artery of [place] heart without angina pectoris,Dyslipidemi a, goal LDL [...] Tablet by mouth in the morning. Active Sennosides-Docusate Sodium 8.6-50 MG Oral Tablet (Senexon-S) Take 2 Tablets by mouth in the morning. Active Torsemide [...] Tablet before bedtime. 180 Tablet 10/03/2023 Active documented as of this encounter (statuses as of 10/20/2023) Active Problems Problem Noted Date Diagnosed Date [...] lumbosacral intervertebral disc 02/04/2009 Coronary atherosclerosis of [place] coronary luis ry 02/24/2005 Senile osteoporosis 05/14/2003 Carpal tunnel syndrome 04/23/2003 Moderate mitral regurgitation GENERAL OSTEOARTHROSIS Gastroesophageal reflux disease without esophagi tis Vitamin D deficiency Hyperparathyroidism, primary documented as of this encounter (statuses as of 10/20/2023) Resolved Problems Problem Noted Date Diagnosed Date [...] 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 LOC PRIM [id number] 02/14/200205/30 Other seborrheic keratosis 10/31/2001 0 06/06/2007 [...] as of this encounter (statuses as of 10/20/2023) Immunizations Name Administration Dates Next Due Pneumococcal [...] as of this encounter Progress Notes * Vijaya Palmer RN - 10/20/2023 11:02 AM EDT Noted, Thanks! * Faby Campos [facility] Medical Accounts Receivable Specialist - 10/20/2023 10:55 AM EDT Telemedicine visit: No [facility] Medical Accounts Receivable Specialist (LEILA) documentation: CHW melita call per LISET Herman CM Spoke with patient States she is feeling very well She is currently in [place] at daughter's home; has been there for 2 weeks, plan is to come home Tuesday States she is regaining strength, but arthritis in knees is holding her back Plans to resume HH when she returns home Denies fever/chills Has been taken off of Warfarin and started on Eliquis---doing well Denies bleeding from rectum Has appt scheduled 10/27 w/ ---plans to drive self Aware to contact CM with needs/concerns Electronically signed by Faby Campos [facility] Medical Accounts Receivable Specialist at 10/20/2023 11:01 AM EDT documented in this encounter Plan of Treatment Upcoming Encounters Date Type Department Care Team (Late st Contact Info) Description 10/28/2023 2:20 PM EDT Office Visit Family Medicine [address] [place] [phone] Arvin Max MD [address] [place] [address] [place] [address] 12/05/2023 1:00 PM EDT Imaging Radiology, [address] [place] [address] 12/20/2023 11:00 AM EDT Office Visit Orthopaedics [facility] [address] [place] [address] Kian Travis, [address] [place] [address] 12/26/2023 2:30 PM EDT Nurse Only Rheumatology [address] [place] [phone] [place], Nurse Rheum [address] [place] [phone] 01/06/2024 2:00 PM EST Office Visit Nephrology [address] [place] [address] Charlotte Cope PA-C [address] [place] [address] 01/23/2024 2:20 PM EST Office Visit Dermatology [address] [place] [address] Amber Orozco PA-C [address] [place] [address] [place] [address] 02/02/2024 2:30 PM EST Office Visit Hematology/Oncology [facility] [address] [facility] [address] [place] [phone] Mirna Camp CRNP [facility] [place] [address] 02/14/2024 1:30 PM EST Office Visit Cardiology, [facility] 132 [facility] [place] [address] Jane Ashley CRNP [address] [facility] [place] [address] 05/15/2024 1:00 PM EDT Office Visit Nephrology [address] [place] [address] Charlotte Cope PA-C [address] [place] [address] 06/06/2024 3:20 PM EDT Office Visit Family Medicine [address] [place] [phone] Cathy Wilburn MD [address] [place] [address] [place] [address] Health Maintenance Due Date Last Done Comments Adult Wellness Visit 05/30/2021 05/30/2020 COVID-19 Vaccine ( season) 2022 DXA Scan 10/22/2023 10/21/2021, 09/29, 08/28/2018, Additional history exists CKD PHOS USE SMARTSET 23134 08/16/202407/29, 05/12/2023, 11/05/2022, Additional history exists Albumin/Creatinine Ratio 08/24/2024 024, 07/19/2022, 04/06/2021, Additional history exists Depression Monitoring 08/24/2024 08/25/2023 DIG LEVEL FOR MEDICATION MONITORING YEARLY 09/20/2024 09/21/2023, 06/22/2023, 04/29/2023, Additional history exists CKD HGB USE SMARTSET 11558 09/27/202409/27, 09/27/2023, 09/27/2023, Additional history exists DTaP,Tdap,and Td Vaccines (2 - Td or Tdap) 12/31/2029 01/01/2020 (Declined), 12/30/2009, 12/30/2009, Additional history exists Pneumococcal Vaccine: 65+ Years Completed 02/08/2017, 02/23/2006 VITAMIN D LEVEL ONCE IN A LIFETIME-USE SMARTSET# 72044 Completed 08/17/2023, 06/27/2023, 06/22/2023, Additional history exists [...] encounter Medical Devices Implanted Type Area Business Account Executive Device Identifier Shelf Expiration Date Model / Serial / Lot Lead Novus Bipolar 58cm - [id number] - [id number] Implanted:Qty: 1 on 04/11/2017 by Elda Patterson DO at OR [facility] Left: Heart [employer] : [facility] 12/18/2018 5076-58 / [id number] / Description:RIGHT VENTRICLE LEAD Lead Novus Bipolar 52cm - [id number] - [id number] Implanted:Qty: 1 on 04/11/2017 by Elda Patterson DO at OR [facility] Left: Heart [employer] : [facility] 12/24/2018 5076-52 / [id number] / Description:RIGHT ATRIAL ROCKY D Pacer Advisa Dr Dorsey - [id number] - [id number] Implanted:Qty: 1 on 04/11/2017 by Elda Patterson DO at OR [facility] Left: Chest [employer] 08/25/2018 A2DR01 / [id number] / documented as of this encounter Advance Directives Documents on File Type Date Recorded Patient Supervisor Logging Expl anation POLST 01/05/2021 [place] OR [facility] FOR LIFE-SUSTAINING TREATMENT * Full Code (Latest [...] 9:35 AM 07/03/2008 5:40 PM Care Teams Low Raw Sugar Cutter Relationship Specialty Start Date End Date Cathy Wilburn MD [address] [place] [address] [place] [address] PCP - General Family Medicine 12/03/22 documented as of this encounter
--- OUTSIDE RECORDS SUMMARY | 2023-11-28 14:34 | External Medical Summary | Summary of Care ---
Author Name Unknown Organization [facility] Address [address] [facility] [place] [address] Phone [phone] Care Team Providers Care Alcohol And Drug Counselor Name Role Phone Cathy Wilburn MD Primary Care Provide r Encounter Details Date Type Department Care Team (Late st Contact Info) Description 10/26/2023 Orders Only Laboratory [address] [place] [phone] Cathy Wilburn MD [address] [place] [address] [place] [address] Dysuria* Allergies Active Allergy Reactions Criticality Noted Date [...] 40 MG Oral Tablet (Lipitor)Indications :Atherosclerosis of [place] coronary artery of [place] heart without angina pectoris,Dyslipidemi a, goal LDL [...] lumbosacral intervertebral disc 02/04/2009 Coronary atherosclerosis of [place] coronary luis ry 02/24/2005 Senile osteoporosis 05/14/2003 [...] 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 LOC PRIM [id number] 02/14/200205/30 Other seborrheic keratosis 10/31/2001 0 06/06/2007 [...] 2:20 PM EDT Office Visit Family Medicine [address] [place] [phone] Arvin Max MD [address] [place] [address] [place] [address] 12/05/2023 1:00 PM EDT Imaging Radiology, [address] [place] [address] 12/20/2023 11:00 AM EDT Office Visit Orthopaedics [facility] [address] [place] [address] Kian Travis, [address] [place] [address] 12/26/2023 2:30 PM EDT Nurse Only Rheumatology [address] [place] [phone] [place], Nurse Rheum [address] [place] [address] 01/06/2024 2:00 PM EST Office Visit Nephrology [address] [place] [address] Charlotte Cope PA-C [address] [place] [address] 01/23/2024 2:20 PM EST Office Visit Dermatology [address] [place] [address] Amber Orozco PA-C [address] [place] [address] [place] [address] 02/02/2024 2:30 PM EST Office Visit Hematology/Oncology [facility] [place] [address] [place] [phone] Mirna Camp CRNP [address] [place] [address] 02/14/2024 1:30 PM EST Office Visit Cardiology, [facility] [address] [place] [address] Jane Ashley CRNP [address] [place] [address] 05/15/2024 1:00 PM EDT Office Visit Nephrology [address] [place] [address] Charlotte Cope PA-C 200 [facility] [place] [address] 06/06/2024 3:20 PM EDT Office Visit Family Medicine [address] [place] [phone] Cathy Wilburn MD [address] [place] [address] [place] [address] Pending Results Name Type Priority Associated Diagnoses Date /Time URINALYSIS, REFLEX TO MICROSCOPIC Lab Routine Dysuria 10/26/2023 10:30 AM EDT Scheduled Orders Name Type Priority Associated Diagnoses Orde r Schedule URINALYSIS, REFLEX TO MICROSCOPIC Lab Routine Dysuria Expected: 10/26/2023, Expires: 10/25/2024 Health Maintenance Due Date Last Done Comments Adult Wellness Visit 05/30/2021 05/30/2020 COVID-19 Vaccine ( season) 2022 DXA Scan 10/22/2023 10/21/2021, 09/29, 08/28/2018, Additional history exists CKD PHOS USE SMARTSET 73559 08/16/202407/29, 05/12/2023, 11/05/2022, Additional history exists Albumin/Creatinine Ratio 08/24/2024 024, 07/19/2022, 04/06/2021, Additional history exists Depression Monitoring 08/24/2024 08/25/2023 DIG LEVEL FOR MEDICATION MONITORING YEARLY 09/20/2024 09/21/2023, 06/22/2023, 04/29/2023, Additional history exists CKD HGB USE SMARTSET 01210 09/27/202409/27, 09/27/2023, 09/27/2023, Additional history exists DTap/Tdap Vaccines (2 - Td or Tdap) 12/31/2029 01/01/2020 (Declined), 12/30/2009, 12/30/2009, Additional history exists Pneumococcal Vaccine: 65+ Years Completed 02/08/2017, 02/23/2006 VITAMIN D LEVEL ONCE IN A LIFETIME-USE SMARTSET# 92622 Completed 08/17/2023, 06/27/2023, 06/22/2023, Additional history exists [...] this encounter Medical Devices Implanted Type Area Hall Worker Device Identifier Shelf Expiration Date Model / Serial / Lot Lead Novus Bipolar 58cm - [id number] - [id number] Implanted:Qty: 1 on 04/11/2017 by Elda Patterson DO at OR [facility] Left: Heart [employer] : CRM 12/18/2018 5076-58 / [id number] / Description:RIGHT VENTRICLE LEAD Lead Novus Bipolar 52cm - [id number] - [id number] Implanted:Qty: 1 on 04/11/2017 by Elda Patterson DO at OR [facility] Left: Heart [employer] : CRM 12/24/2018 5076-52 / [id number] / Description:RIGHT ATRIAL ROCKY D Pacer Advisa Dr Dorsey - [id number] - [id number] Implanted:Qty: 1 on 04/11/2017 by Elda Patterson DO at OR [facility] Left: Chest [employer] 08/25/2018 A2DR01 / [id number] / documented as of this encounter Visit Diagnoses Diagnosis Dysuria- Primary documented in this encounter Advance Directives Documents on File Type Date Recorded Patient Sheet Combining Operator Michaela MORRIS 01/05/2021 [place] OR [facility] FOR LIFE-SUSTAINING TREATMENT * Full Code [...] 9:35 AM 07/03/2008 5:40 PM Care Teams Alcohol And Drug Counselor Relationship Specialty Start Date End Date Cathy Wilburn MD [address] [place] [address] [place] [address] PCP - General Family Medicine 12/03/22 documented as of this encounter
--- OUTSIDE RECORDS SUMMARY | 2023-11-28 14:34 | External Medical Summary | Summary of Care ---
Author Name Unknown Organization [facility] Address [address] [place] [address] Phone [phone] Care Team Providers Care Trimmer Helper Name Role Phone Cathy Wilburn MD Primary Care Provide r Reason for Visit * Reason Comments Outpatient Testing Encounter Details Date Type Department Care Team (Late st Contact Info) Description 10/26/2023 11:10 AM EDT Laboratory Laboratory [address] [place] [phone] , Specimen Drop Off [address] [place] [address] Dysuria Allergies Active Allergy Reactions Criticality Noted [...] 40 MG Oral Tablet (Lipitor)Indications :Atherosclerosis of [place] coronary artery of [place] heart without angina pectoris,Dyslipidemi a, goal LDL [...] lumbosacral intervertebral disc 02/04/2009 Coronary atherosclerosis of [place] coronary luis ry 02/24/2005 Senile osteoporosis 05/14/2003 [...] 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 LOC PRIM [id number] 02/14/200205/30 Other seborrheic keratosis 10/31/2001 0 06/06/2007 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 Menopause [...] 2:20 PM EDT Office Visit Family Medicine [address] [phone] Arvin Max MD [address] [place] [address] [place] [address] 12/05/2023 1:00 PM EDT Imaging Radiology, [address] [place] [address] 12/20/2023 11:00 AM EDT Office Visit Orthopaedics [facility] [address] [place] [address] Kian Travis DO [address] [place] [address] 12/26/2023 2:30 PM EDT Nurse Only Rheumatology [address] [place] [address] [place], Nurse Rheum [address] [place] [address] 01/06/2024 2:00 PM EST Office Visit Nephrology [address] [place] [address] Charlotte Cope PA-C [address] [place] [address] [place] [address] 01/23/2024 2:20 PM EST Office Visit Dermatology [address] [place] [address] Amber Orozco PA-C [address] [place] [address] [place] [address] 02/02/2024 2:30 PM EST Office Visit Hematology/Oncology [facility] Tara Rolette [address] [facility] [place] [phone] Mirna Camp CRNP [address] [place] [address] 02/14/2024 1:30 PM EST Office Visit Cardiology, [facility] [address] [place] [address] Jane Ashley CRNP [address] [place] [address] 05/15/2024 1:00 PM EDT Office Visit Nephrology [address] [place] [address] Charlotte Cope PA-C 200 [facility] [place] [address] 06/06/2024 3:20 PM EDT Office Visit Family Medicine [address] [place] [address] Cathy Wilburn MD [address] [place] [address] [place] [address] Pending Results Name Type Priority Associated Diagnoses Date /Time URINALYSIS, REFLEX TO MICROSCOPIC Lab Routine Dysuria 10/26/2023 10:30 AM EDT Health Maintenance Due Date Last Done Comments Adult Wellness Visit 05/30/2021 05/30/2020 COVID-19 Vaccine ( season) 2022 DXA Scan 10/22/2023 10/21/2021, 09/29, 08/28/2018, Additional history exists CKD PHOS USE SMARTSET 49501 08/16/202407/29, 05/12/2023, 11/05/2022, Additional history exists Albumin/Creatinine Ratio 08/24/2024 024, 07/19/2022, 04/06/2021, Additional history exists Depression Monitoring 08/24/2024 08/25/2023 DIG LEVEL FOR MEDICATION MONITORING YEARLY 09/20/2024 09/21/2023, 06/22/2023, 04/29/2023, Additional history exists CKD HGB USE SMARTSET 03062 09/27/202409/27, 09/27/2023, 09/27/2023, Additional history exists DTap/Tdap Vaccines (2 - Td or Tdap) 12/31/2029 01/01/2020 (Declined), 12/30/2009, 12/30/2009, Additional history exists Pneumococcal Vaccine: 65+ Years Completed 02/08/2017, 02/23/2006 VITAMIN D LEVEL ONCE IN A LIFETIME-USE SMARTSET# [id number] Completed 08/17/2023, 06/27/2023, 06/22/2023, Additional history exists [...] this encounter Medical Devices Implanted Type Area Yarn Handler Device Identifier Shelf Expiration Date Model / Serial / Lot Lead Novus Bipolar 58cm - [id number] - [id number] Implanted:Qty: 1 on 04/11/2017 by Elda Patterson DO at OR [facility] Left: Heart [employer] : [facility] 12/18/2018 5076-58 / [id number] / Description:RIGHT VENTRICLE LEAD Lead Novus Bipolar 52cm - [id number] - [id number] Implanted:Qty: 1 on 04/11/2017 by Elda Patterson DO at OR [facility] Left: Heart [employer] : [facility] 12/24/2018 5076-52 / [id number] / Description:RIGHT ATRIAL ROCKY D Pacer Advisa Dr Dorsey - [id number] - [id number] Implanted:Qty: 1 on 04/11/2017 by Elda Patterson DO at OR [facility] Left: Chest [employer] 08/25/2018 A2DR01 / [id number] / documented as of this encounter Visit Diagnoses Diagnosis Dysuria documented in this encounter Advance Directives Documents on File Type Date Recorded Patient Coal Crusher Operator Expl anation POLST 01/05/[address] [place] [address] [facility] [...] 9:35 AM 07/03/2008 5:40 PM Care Teams Trimmer Helper Relationship Specialty Start Date End Date Cathy Wilburn MD [address] [place] [address] [place] [phone] PCP - General Family Medicine 12/03/22 documented as of this encounter
--- OUTSIDE RECORDS SUMMARY | 2023-11-28 14:34 | External Medical Summary | Summary of Care ---
Author Name Unknown Organization [facility] Address [address] [place] [address] Phone [phone] Care Team Providers Care Welding Machine Feeder Name Role Phone Cathy Wilburn MD Primary Care Provide r Reason for Visit * Reason Onset Date Comments Encounter Created in Error 07/22/2023 Encounter Details Date Type Department Care Team (Late st Contact Info) Description 07/22/[address] [address] Cathy Wilburn MD [address] [place], [place] [address] [phone] Encounter Created in Error Allergies Active Allergy Reactions Criticality Noted Date [...] as of this encounter (statuses as of 10/21/2023) Medications Medication Sig Dispensed Refills Start Date [...] AND TUESDAY 30 Tablet 11 07/06/2023 Active documented as of this encounter (statuses as of 10/21/2023) Active Problems Problem Noted Date Diagnosed Date [...] as of this encounter (statuses as of 10/21/2023) Resolved Problems Problem Noted Date Diagnosed Date [...] 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 LOC PRIM [id number] 02/14/200205/30 Other seborrheic keratosis 10/31/2001 0 06/06/2007 [...] as of this encounter (statuses as of 10/21/2023) Immunizations Name Administration Dates Next Due Pneumococcal [...] 2:20 PM EDT Office Visit Family Medicine [address] [place] [phone] Arvin Max MD [address] [place] [address] [place] [address] 12/05/2023 1:00 PM EDT Imaging Radiology, [address] [place] [address] 12/20/2023 11:00 AM EDT Office Visit Orthopaedics [facility] [address] [place] [address] Kian Travis, [address] [place] [address] 12/26/2023 2:30 PM EDT Nurse Only Rheumatology [address] [place] [address] [place], Nurse Rheum [address] [place] [address] 01/06/2024 2:00 PM EST Office Visit Nephrology [address] [place] [address] Charlotte Cope PA-C [address] [place] [address] 01/23/2024 2:20 PM EST Office Visit Dermatology [address] [place] [address] Amber Orozco PA-C [address] [place] [address] [place] [address] 02/02/2024 2:30 PM EST Office Visit Hematology/Oncology [facility] [place] [phone] Mirna Camp [facility]NP [facility] [place] [address] 02/14/2024 1:30 PM EST Office Visit Cardiology, [facility] 132 [facility] [place] [address] Jane Ashley CRNP [address] [place] [phone] 05/15/2024 1:00 PM EDT Office Visit Nephrology [address] [place] [address] Charlotte Cope PA-C 200 [facility] [place] [address] 06/06/2024 3:20 PM EDT Office Visit Family Medicine [address] [place] [phone] Cathy Wilburn MD [address] [place] [address] [place] [address] Health Maintenance Due Date Last Done Comments Adult Wellness Visit 05/30/2021 05/30/2020 COVID-19 Vaccine ( season) 2022 DXA Scan 10/22/2023 10/21/2021, 09/29, 08/28/2018, Additional history exists CKD PHOS USE SMARTSET 16238 08/16/202407/29, 05/12/2023, 11/05/2022, Additional history exists Albumin/Creatinine Ratio 08/24/2024 024, 07/19/2022, 04/06/2021, Additional history exists Depression Monitoring 08/24/2024 08/25/2023 DIG LEVEL FOR MEDICATION MONITORING YEARLY 09/20/2024 09/21/2023, 06/22/2023, 04/29/2023, Additional history exists CKD HGB USE SMARTSET 82525 09/27/202409/27, 09/27/2023, 09/27/2023, Additional history exists DTaP,Tdap,and Td Vaccines (2 - Td or Tdap) 12/31/2029 01/01/2020 (Declined), 12/30/2009, 12/30/2009, Additional history exists Pneumococcal Vaccine: 65+ Years Completed 02/08/2017, 02/23/2006 VITAMIN D LEVEL ONCE IN A LIFETIME-USE SMARTSET# 87304 Completed 08/17/2023, 06/27/2023, 06/22/2023, Additional history exists [...] this encounter Medical Devices Implanted Type Area Licensed Certified Orthotist Device Identifier Shelf Expiration Date Model / Serial / Lot Lead Novus Bipolar 58cm - [id number] - [id number] Implanted:Qty: 1 on 04/11/2017 by Elda Patterson DO at OR [facility] Left: Heart [employer] : [employer] 12/18/2018 5076-58 / [id number] / Description:RIGHT VENTRICLE LEAD Lead Novus Bipolar 52cm - [id number] - [id number] Implanted:Qty: 1 on 04/11/2017 by Elda Patterson DO at OR [facility] Left: Heart [employer] : [employer] 12/24/2018 5076-52 / [id number] / Description:RIGHT ATRIAL ROCKY D Pacer Advisa Dr Dorsey - [id number] - [id number] Implanted:Qty: 1 on 04/11/2017 by Elda Patterson DO at OR [facility] Left: Chest [employer] 08/25/2018 A2DR01 / [id number] / documented as of this encounter Additional Health Concerns Infection Onset Date Last Indicated Resolved Time Respiratory Rule-Out 09/26/2023 09/26/20232 024 2:16 PM EDT COVID-19 Rule-Out 09/26/2023 09/26/2023 09/26/2023 2:16 PM EDT documented as of this encounter Advance Directives Documents on File Type Date Recorded Patient Stop Attacher Expl anation POLST 01/05/2021 [place] OR [facility] FOR LIFE-SUSTAINING TREATMENT * Full Code (Latest [...] 9:35 AM 07/03/2008 5:40 PM Care Teams Welding Machine Feeder Relationship Specialty Start Date End Date Cathy Wilburn MD [address] [place] [address] [place] [address] PCP - General Family Medicine 12/03/22 documented as of this encounter
--- OUTSIDE RECORDS SUMMARY | 2023-11-28 14:34 | External Medical Summary | Summary of Care ---
Author Name Unknown Organization [facility] Address [address] [place] [address] Phone [phone] Care Team Providers Care Public Relations Account Supervisor Name Role Phone Cathy Wilburn MD Primary Care Provide r Encounter Details Date Type Department Care Team (Late st Contact Info) Description 10/20/2023 1:15 PM EDT Scheduled Telephone Care Coordination and Integration [address] [place], [place] [phone] Faby Campos [facility] [address] [place], [place] [phone] Allergies Active Allergy Reactions Criticality Noted Date [...] 40 MG Oral Tablet (Lipitor)Indications :Atherosclerosis of [place] coronary artery of [place] heart without angina pectoris,Dyslipidemi a, goal LDL [...] lumbosacral intervertebral disc 02/04/2009 Coronary atherosclerosis of [place] coronary luis ry 02/24/2005 Senile osteoporosis 05/14/2003 [...] 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 LOC PRIM [id number] 02/14/200205/30 Other seborrheic keratosis 10/31/2001 0 06/06/2007 [...] AM EDT Noted, Thanks! * Faby Campos [facility] Envelope Addresser - 10/20/2023 10:55 AM EDT Telemedicine visit: No [facility]er (LEILA) documentation: [facility] melita call per LISET Herman CM Spoke with patient States she is feeling very well She is currently in [place] at daughter's home; has been there for [...] self Aware to contact CM with needs/concerns documented in this encounter Plan of Treatment Upcoming Encounters Date Type Department Care Team (Late st Contact Info) Description 10/28/2023 2:20 PM EDT Office Visit Family Medicine [address] [place] [address] Arvin Max MD [address] [place] [address] [place] [address] 12/05/2023 1:00 PM EDT Imaging Radiology, [address] [place] [address] 12/20/2023 11:00 AM EDT Office Visit Orthopaedics [facility] [address] [place] [address] Kian Travis, [address] [place] [address] 12/26/2023 2:30 PM EDT Nurse Only Rheumatology [address] [place] [phone] [place], Nurse Rheum [address] [place] [phone] 01/06/2024 2:00 PM EST Office Visit Nephrology [address] [place] [address] Charlotte Cope PA-C [address] [place] [address] 01/23/2024 2:20 PM EST Office Visit Dermatology [address] [place] [address] Amber Orozco PA-C [address] [place] [address] [place] [address] 02/02/2024 2:30 PM EST Office Visit Hematology/Oncology [facility] [address] [facility] [address] [place] [phone] Mirna Camp CRNP [facility] [place] [address] 02/14/2024 1:30 PM EST Office Visit Cardiology, [facility] 132 [facility] [place] [address] Jane Ashley CRNP [facility] [place] [address] 05/15/2024 1:00 PM EDT Office Visit Nephrology [address] [place] [address] Charlotte Cope PA-C [address] [place] [address] 06/06/2024 3:20 PM EDT Office Visit Family Medicine [address] [place] [phone] Cathy Wilburn MD [address] [place] [address] [place] [address] Health Maintenance Due Date Last Done Comments Adult Wellness Visit 05/30/2021 05/30/2020 COVID-19 Vaccine ( season) 2022 DXA Scan 10/22/2023 10/21/2021, 09/29, 08/28/2018, Additional history exists CKD PHOS USE SMARTSET 96826 08/16/202407/29, 05/12/2023, 11/05/2022, Additional history exists Albumin/Creatinine Ratio 08/24/2024 024, 07/19/2022, 04/06/2021, Additional history exists Depression Monitoring 08/24/2024 08/25/2023 DIG LEVEL FOR MEDICATION MONITORING YEARLY 09/20/2024 09/21/2023, 06/22/2023, 04/29/2023, Additional history exists CKD HGB USE SMARTSET 46482 09/27/202409/27, 09/27/2023, 09/27/2023, Additional history exists DTaP,Tdap,and Td Vaccines (2 - Td or Tdap) 12/31/2029 01/01/2020 (Declined), 12/30/2009, 12/30/2009, Additional history exists Pneumococcal Vaccine: 65+ Years Completed 02/08/2017, 02/23/2006 VITAMIN D LEVEL ONCE IN A LIFETIME-USE SMARTSET# 24379 Completed 08/17/2023, 06/27/2023, 06/22/2023, Additional history exists [...] this encounter Medical Devices Implanted Type Area Ground Mixer Device Identifier Shelf Expiration Date Model / Serial / Lot Lead Novus Bipolar 58cm - [id number] - [id number] Implanted:Qty: 1 on 04/11/2017 by Elda Patterson DO at OR [facility] Left: Heart [employer] : [facility] 12/18/2018 5076-58 / [id number] / Description:RIGHT VENTRICLE LEAD Lead Novus Bipolar 52cm - [id number] - [id number] Implanted:Qty: 1 on 04/11/2017 by Elda Pattreson DO at OR [facility] Left: Heart [employer] : [facility] 12/24/2018 5076-52 / [id number] / Description:RIGHT ATRIAL ROCKY D Pacer Advisa Dr Dorsey - [id number] - [id number] Implanted:Qty: 1 on 04/11/2017 by Elda Pattesron DO at OR [facility] Left: Chest [employer] 08/25/2018 A2DR01 / [id number] / documented as of this encounter Advance Directives Documents on File Type Date Recorded Patient Nurse Office Expl anation POLST 01/05/2021 [place] OR [facility] FOR LIFE-SUSTAINING TREATMENT * Full Code [...] AM 07/03/2008 5:40 PM Care Teams Public Relations Account Supervisor Relationship Specialty Start Date End Date Cathy Wilburn MD [address] [place] [address] [place] [address] PCP - General Family Medicine 12/03/22 documented as of this encounter
--- OUTSIDE RECORDS SUMMARY | 2023-11-28 14:35 | External Medical Summary | Summary of Care ---
Author Name Unknown Organization [facility] Address [address] [place] [address] Phone [phone] Care Team Providers Care Oil Refiner Name Role Phone Cathy Wilburn MD Primary Care Provide r Reason for Visit * Reason Onset Date Comments FYI 09/27/2023 Encounter Details Date Type Department Care Team (Late st Contact Info) Description 09/27/[address] [place] [address] Cathy Wilburn MD [address] [place] [address] [place], [place] [phone] FYI Allergies Active Allergy Reactions Criticality Noted Date [...] as of this encounter (statuses as of 10/03/2023) Medications Medication Sig Dispensed Refills Start Date End Date Status Acetaminophen 325 MG Oral Tablet (Tylenol) Take by mouth 2 Tablets every 4 hours as needed for Fever >38C(100.5F), Pain, Mild, Pain, Moderate or Pain, Severe. 100 Tablet 1 2 Active Atorvastatin Calcium 40 MG Oral Tablet (Lipitor)Indicati ons:Atheroscleros is of [place] coronary artery of [place] heart without angina pectoris,Dyslipid emia, goal LDL below 70 Take 1 Tablet by mouth at bedtime. 90 Tablet 3 4 Active Cholecalciferol 25 MCG (1000 UT) Oral CapsuleIndication s:Senile osteoporosis Take 2 Capsules by mouth in the morning. 180 Capsule 1 4 Active DULoxetine HCl 30 MG Oral Capsule Delayed Release Particles (Cymbalta)Indicat ions:Moderate episode of recurrent major depressive disorder (HCC) Take 1 Capsule by mouth in the morning. In the morning.. 90 Capsule 3 4 Active Omeprazole 20 MG Oral Capsule Delayed Release (PriLOSEC)Indicat ions:Gastro-esoph ageal reflux disease without esophagitis Take 1 Capsule by mouth in the morning. In the morning.. 90 Capsule 1 4 Active Vitamin B-12 1000 MCG Oral Tablet (Cyanocobalamin)I ndications:B12 deficiency TAKE 1 TABLET BY MOUTH ON TUESDAY, TUESDAY AND TUESDAY 30 Tablet 11 4 Active LORazepam 0.5 MG Oral Tablet (Ativan)Indicatio ns:Anxiety Take 0.5 Tablets by mouth daily as needed for Anxiety. 15 Tablet 4 Active FeroSul 325 (65 Fe) MG Oral Tablet Take 1 Tablet by mouth every other day. 4 Active Bladder Control Pads Ex Absorb Use [...] Tablet by mouth in the morning. Active Sennosides-Docusa te Sodium 8.6-50 MG Oral Tablet (Senexon-S) Take 2 Tablets by mouth in the morning. Active Torsemide 10 MG Oral Tablet (Demadex) Take 1 Tablet by mouth in the morning. Active Torsemide 5 MG Oral Tablet (Demadex) Take 1 Tablet by mouth in the morning. Active Aspirin 81 MG Oral Tablet Delayed Release Take 1 Tablet by mouth in the morning. 09/28/19 24 Discontinued Warfarin Sodium 2 MG Oral Tablet (Coumadin) Take by mouth. 09/28/19 24 Discontinued Metoprolol Succinate ER 100 MG Oral Tablet Extended Release 24 Hour (toPROL XL) Take 1 Tablet by mouth in the morning and 1 Tablet before bedtime. 10/03/19 24 Discontinued(Ref ill) documented as of this encounter (statuses as of 10/03/2023) Active Problems Problem Noted Date Diagnosed Date [...] lumbosacral intervertebral disc 02/04/2009 Coronary atherosclerosis of [place] coronary luis ry 02/24/2005 Senile osteoporosis 05/14/2003 Carpal tunnel syndrome 04/23/2003 Moderate mitral regurgitation GENERAL OSTEOARTHROSIS Gastroesophageal reflux disease without esophagi tis Vitamin D deficiency Hyperparathyroidism, primary documented as of this encounter (statuses as of 10/03/2023) Resolved Problems Problem Noted Date Diagnosed Date [...] 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 LOC PRIM [id number] 02/14/200205/30 Other seborrheic keratosis 10/31/2001 0 06/06/2007 [...] as of this encounter (statuses as of 10/03/2023) Immunizations Name Administration Dates Next Due Pneumococcal [...] encounter Miscellaneous Notes * Telephone Encounter - Gretchen Pedro OSA - 09/27/2023 3:08 PM EDT Sharyn from [facility] calling in to let pcp know they do not do orders for life alert. documented in this encounter Plan of Treatment Upcoming Encounters Date Type Department Care Team (Late st Contact Info) Description 10/05/2023 11:00 AM EDT Office Visit Family Medicine [address] [place] [phone] Ceci Knapp PA-C [address] [place] [address] [place] [address] 10/12/2023 3:00 PM EDT Office Visit Sleep Disorders Ctr [facility] [address] [place] [phone] Isabel Diallo, 132 [facility] [place] [address] 12/05/2023 1:00 PM EDT Imaging Radiology, [address] [place] [address] 12/20/2023 11:00 AM EDT Office Visit Orthopaedics [facility] [address] [place] [address] Kian Travis, DO [address] [place] [address] 12/26/2023 2:30 PM EDT Nurse Only Rheumatology [address] [place] [phone] [place], Nurse Rheum [address] [place] [address] 01/06/2024 2:00 PM EST Office Visit Nephrology [address] [place] [address] Charlotte Cope PA-C [address] [place] [address] 01/23/2024 2:20 PM EST Office Visit Dermatology [address] [place] [address] Amber Orozco PA-C [address] [place] [address] [place] [address] 02/02/2024 2:30 PM EST Office Visit Hematology/Oncology [facility] [address] [facility] [place] [phone] Mirna Camp CRNP 400 [place] [address] 02/14/2024 1:30 PM EST Office Visit Cardiology, [facility] [address] [facility] [place] [address] Jane Ashley CRNP 400 [place], [place] [phone] 05/15/2024 1:00 PM EDT Office Visit Nephrology [address] [place] [address] Charlotte Cope PA-C 200 [facility] [place] [address] 06/06/2024 3:20 PM EDT Office Visit Family Medicine [address] [place] [phone] Cathy Wilburn MD [address] [place] [address] [place] [address] Health Maintenance Due Date Last Done Comments COVID-19 Vaccine (2022- season) 2022 DXA Scan 10/22/2023 10/21/2021, 09/29, 08/28/2018, Additional history exists CKD PHOS USE SMARTSET 95748 08/16/202407/29, 05/12/2023, 11/05/2022, Additional history exists Albumin/Creatinine Ratio 08/24/2024 024, 07/19/2022, 04/06/2021, Additional history exists Depression Monitoring 08/24/2024 08/25/2023 DIG LEVEL FOR MEDICATION MONITORING YEARLY 09/20/2024 09/21/2023, 06/22/2023, 04/29/2023, Additional history exists CKD HGB USE SMARTSET 45796 09/27/202409/27, 09/27/2023, 09/27/2023, Additional history exists DTaP,Tdap,and Td Vaccines (2 - Td or Tdap) 12/31/2029 01/01/2020 (Declined), 12/30/2009, 12/30/2009, Additional history exists Pneumococcal Vaccine: 65+ Years Completed 02/08/2017, 02/23/2006 VITAMIN D LEVEL ONCE IN A LIFETIME-USE SMARTSET# 29662 Completed 08/17/2023, 06/27/2023, 06/22/2023, Additional history exists [...] this encounter Medical Devices Implanted Type Area Shipyard Painter Helper Device Identifier Shelf Expiration Date Model / Serial / Lot Lead Novus Bipolar 58cm - [id number] - [id number] Implanted:Qty: 1 on 04/11/2017 by Elda Patterson DO at OR [facility] Left: Heart [employer] : YONATHAN 12/18/2018 5076-58 / [id number] / Description:RIGHT VENTRICLE LEAD Lead Novus Bipolar 52cm - [id number] - [id number] Implanted:Qty: 1 on 04/11/2017 by Elda Patterson DO at OR [facility] Left: Heart [employer] : CRM 12/24/2018 5076-52 / [id number] / Description:RIGHT ATRIAL ROCKY D Pacer Advisa Dr Dorsey - [id number] - [id number] Implanted:Qty: 1 on 04/11/2017 by Elda Patterson DO at OR [facility] Left: Chest [employer] 08/25/2018 A2DR01 / [id number] / documented as of this encounter Advance Directives Documents on File Type Date Recorded Patient Customs Compliance Specialist Expl anation POLST 01/05/2021 [place] [facility] FOR LIFE-SUSTAINING TREATMENT * Full Code [...] 9:35 AM 07/03/2008 5:40 PM Care Teams Oil Refiner Relationship Specialty Start Date End Date Cathy Wilburn MD [address] [place] [address] [place] [address] PCP - General Family Medicine 12/03/22 documented as of this encounter
--- OUTSIDE RECORDS SUMMARY | 2023-11-28 14:35 | External Medical Summary | Summary of Care ---
Author Name Unknown Organization [facility] Address [address] [place] [address] Phone [phone] Care Team Providers Care Metal Drill Press Operator Name Role Phone Cathy Wilburn MD Primary Care Provide r Reason for Visit * Reason Onset Date Comments Med Request 09/30/2023 Encounter Details Date Type Department Care Team (Late st Contact Info) Description 09/30/[address] [phone] Cathy Wilburn MD [address] [place] [address] [place] [address] Med Request Allergies Active Allergy Reactions Criticality [...] as of this encounter (statuses as of 10/05/2023) Medications Medication Sig Dispensed Refills Start Date End Date Status Acetaminophen 325 MG Oral Tablet (Tylenol) Take by mouth 2 Tablets every 4 hours as needed for Fever >38C(100.5F), Pain, Mild, Pain, Moderate or Pain, Severe. 100 Tablet 1 2021 Active Atorvastatin Calcium 40 MG Oral Tablet (Lipitor)Indicatio ns:Atherosclerosis of [place] coronary artery of [place] heart without angina pectoris,Dyslipide martin, goal LDL [...] Tablet by mouth in the morning. Active Sennosides-Docusat e Sodium 8.6-50 MG Oral Tablet (Senexon-S) Take [...] THE MORNING 30 Capsule 1 09/30/2023 Active Metoprolol Succinate ER 100 MG Oral Tablet Extended Release 24 Hour (toPROL XL) Take 1 Tablet by mouth in the morning and 1 Tablet before bedtime. 180 Tablet 10/03/2023 Active Metoprolol Succinate ER 100 MG Oral Tablet Extended Release 24 Hour (toPROL XL) Take 1 Tablet by mouth in the morning and 1 Tablet before bedtime. 4 Discontinue d(Refill) Apixaban 2.5 MG Oral Tablet (Eliquis) Take 1 Tablet by mouth in the morning and 1 Tablet before bedtime. 60 Tablet 2 09/28/2023 Discontinue d(Refill) documented as of this encounter (statuses as of 10/05/2023) Active Problems Problem Noted Date Diagnosed Date [...] lumbosacral intervertebral disc 02/04/2009 Coronary atherosclerosis of [place] coronary luis ry 02/24/2005 Senile osteoporosis 05/14/2003 Carpal tunnel syndrome 04/23/2003 Moderate mitral regurgitation GENERAL OSTEOARTHROSIS Gastroesophageal reflux disease without esophagi tis Vitamin D deficiency Hyperparathyroidism, primary documented as of this encounter (statuses as of 10/05/2023) Resolved Problems Problem Noted Date Diagnosed Date [...] 11/06/2019 03/17/2023 Acute blood loss anemia 10/22/2019 07/3 02/2023 Hypertensive heart and kidne y disease with [...] 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 LOC PRIM [id number] 02/14/200205/30 Other seborrheic keratosis 10/31/2001 0 06/06/2007 [...] as of this encounter (statuses as of 10/05/2023) Immunizations Name Administration Dates Next Due Pneumococcal [...] encounter Miscellaneous Notes * Addendum Note - Arvin Max MD - 10/03/2023 4:25 PM EDTAddended by: ARVIN MAX on: 10/03/2023 04:25 PM Modules accepted: Orders * Telephone Encounter - Arvin Max MD - 10/03/2023 4:25 PM EDT Sent * Telephone Encounter - Kiersten Harmon CPhT - 09/30/2023 2:27 PM EDT Pharmacy calling requesting the following medication below that is listed as "Historical". The following information was provided: Medication Name: Metoprolol Succinate Strength: ER 100mg Directions: Take 1 Tablet by mouth in the morning and 1 Tablet before bedtime. Preferred Quantity: 90 day supply Previous Prescriber: N/A Preferred Pharmacy: [facility], [address] [place] Please review and approve if appropriate. Thank you, Kiersten Harmon CPhT Body Builder Apprentice II [facility] ([facility]) 09/30/2023,2:27 PM documented in this encounter Plan of Treatment Upcoming Encounters Date Type Department Care Team (Late st Contact Info) Description 10/12/2023 3:00 PM EDT Office Visit Sleep Disorders Ctr [facility] 132 [facility] [place] [phone] Isabel Diallo, 132 [facility] [place] [address] 12/05/2023 1:00 PM EDT Imaging Radiology, [address] [place] [address] 12/20/2023 11:00 AM EDT Office Visit Orthopaedics [facility] [address] [place] [address] Kian Travis, DO [address] [place] [address] 12/26/2023 2:30 PM EDT Nurse Only Rheumatology [address] [place] [phone] [place], Nurse Rheum [address] [place] [phone] 01/06/2024 2:00 PM EST Office Visit Nephrology [address] [place] [address] ZeCharlotte coleman PA-C 200 [facility] [place] [address] 01/23/2024 2:20 PM EST Office Visit Dermatology [address] [place] [address] Amber Orozco PA-C [address] [place] [address] [place] [address] 02/02/2024 2:30 PM EST Office Visit Hematology/Oncology [facility] [place] [address] [place] [phone] Mirna Camp CRNP [address] [place] [address] 02/14/2024 1:30 PM EST Office Visit Cardiology, [facility] [address] [place] [address] Jane Ashley CRNP [address] [place] [address] 05/15/2024 1:00 PM EDT Office Visit Nephrology [address] [place] [address] Charlotte Cope PA-C [address] [place] [address] 06/06/2024 3:20 PM EDT Office Visit Family Medicine [address] [place] [phone] Cathy Wilburn MD [address] [place] [address] [place] [address] Health Maintenance Due Date Last Done Comments Adult Wellness Visit 05/30/2021 05/30/2020 COVID-19 Vaccine ( season) 2022 DXA Scan 10/22/2023 10/21/2021, 09/29, 08/28/2018, Additional history exists CKD PHOS USE SMARTSET 96041 08/16/202407/29, 05/12/2023, 11/05/2022, Additional history exists Albumin/Creatinine Ratio 08/24/2024 024, 07/19/2022, 04/06/2021, Additional history exists Depression Monitoring 08/24/2024 08/25/2023 DIG LEVEL FOR MEDICATION MONITORING YEARLY 09/20/2024 09/21/2023, 06/22/2023, 04/29/2023, Additional history exists CKD HGB USE SMARTSET 23956 09/27/202409/27, 09/27/2023, 09/27/2023, Additional history exists DTaP,Tdap,and Td Vaccines (2 - Td or Tdap) 12/31/2029 01/01/2020 (Declined), 12/30/2009, 12/30/2009, Additional history exists Pneumococcal Vaccine: 65+ Years Completed 02/08/2017, 02/23/2006 VITAMIN D LEVEL ONCE IN A LIFETIME-USE SMARTSET# 54935 Completed 08/17/2023, 06/27/2023, 06/22/2023, Additional history exists [...] this encounter Medical Devices Implanted Type Area Diet Consultant Device Identifier Shelf Expiration Date Model / Serial / Lot Lead Novus Bipolar 58cm - [id number] - [id number] Implanted:Qty: 1 on 04/11/2017 by Elda Patterson DO at OR [facility] Left: Heart [employer] : [facility] 12/18/2018 5076-58 / [id number] / Description:RIGHT VENTRICLE LEAD Lead Novus Bipolar 52cm - [id number] - [id number] Implanted:Qty: 1 on 04/11/2017 by Elda Patterson DO at OR [facility] Left: Heart [employer] : [facility] 12/24/2018 5076-52 / [id number] / Description:RIGHT ATRIAL ROCKY D Pacer Advisa Dr Dorsey - [id number] - [id number] Implanted:Qty: 1 on 04/11/2017 by Elda Patterson DO at OR [facility] Left: Chest [employer] 08/25/2018 A2DR01 / [id number] / documented as of this encounter Advance Directives Documents on File Type Date Recorded Patient Link Trainer Expl anation POLST 01/05/2021 [place] [facility] FOR LIFE-SUSTAINING TREATMENT * [...] 9:35 AM 07/03/2008 5:40 PM Care Teams Metal Drill Press Operator Relationship Specialty Start Date End Date Cathy Wilburn MD [address] [place] [address] [place] [phone] PCP - General Family Medicine 12/03/22 documented as of this encounter
--- OUTSIDE RECORDS SUMMARY | 2023-11-28 14:35 | External Medical Summary | Summary of Care ---
Author Name Unknown Organization [facility] Address [address] [place] [address] Phone [phone] Care Team Providers Care Centerless Grinder Operator Name Role Phone Cathy Wilburn MD Primary Care Provide r Reason for Visit * Reason Onset Date Comments Med Request 09/30/2023 Encounter Details Date Type Department Care Team (Late st Contact Info) Description 09/30/[address] [phone] Cathy Wilburn MD [address] [place] [address] [place] [address] Med Request Allergies Active Allergy Reactions [...] 40 MG Oral Tablet (Lipitor)Indicatio ns:Atherosclerosis of [place] coronary artery of [place] heart without angina pectoris,Dyslipide martin, goal LDL [...] lumbosacral intervertebral disc 02/04/2009 Coronary atherosclerosis of [place] coronary luis ry 02/24/2005 Senile osteoporosis 05/14/2003 [...] 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 LOC PRIM [id number] 02/14/200205/30 Other seborrheic keratosis 10/31/2001 0 06/06/2007 [...] supply Previous Prescriber: N/A Preferred Pharmacy: [facility], [address] [place] Please review and approve if appropriate. Thank you, Kierstne Harmon CPhT Inspector Fabric II [facility] ([facility]) 09/30/2023,2:27 PM documented in this encounter Plan of Treatment Upcoming Encounters Date Type Department Care Team (Late st Contact Info) Description 10/05/2023 11:00 AM EDT Office Visit Family Medicine [address] [place] [phone] Ceci Knapp PA-C [address] [place] [address] [place] [address] 10/12/2023 3:00 PM EDT Office Visit Sleep Disorders Ctr [facility] 132 [facility] [place] [phone] Isabel Diallo, DO 132 [facility] [place] [address] 12/05/2023 1:00 PM EDT Imaging Radiology, [address] [place] [address] 12/20/2023 11:00 AM EDT Office Visit Orthopaedics [facility] [address] [facility] [place] [address] Kian Travis, DO 132 [facility] [place] [address] 12/26/2023 2:30 PM EDT Nurse Only Rheumatology [address] [place] [phone] [place], Nurse [address] [place] [phone] 01/06/2024 2:00 PM EST Office Visit Nephrology [address] [place] [address] Charlotte Cope PA-C 200 [facility] [place] [address] 01/23/2024 2:20 PM EST Office Visit Dermatology [address] [place] [address] Amber Orozco PA-C [address] [place] [address] [place] [address] 02/02/2024 2:30 PM EST Office Visit Hematology/Oncology [facility] [address] [place] [phone] Mirna Camp CRNP [address] [place] [address] 02/14/2024 1:30 PM EST Office Visit Cardiology, [facility] [address] [place] [place] [address] Jane Ashley CRNP [address] [place] [address] 05/15/2024 1:00 PM EDT Office Visit Nephrology [address] [place] [address] Charlotte Cope PA-C [address] [place] [address] 06/06/2024 3:20 PM EDT Office Visit Family Medicine [address] [place] [phone] Cathy Wilburn MD [address] [place] [address] [place] [address] Health Maintenance Due Date Last Done Comments COVID-19 Vaccine ( season) 2022 DXA Scan 10/22/2023 10/21/2021, 09/29, 08/28/2018, Additional history exists CKD PHOS USE SMARTSET 43907 08/16/202407/29, 05/12/2023, 11/05/2022, Additional history exists Albumin/Creatinine Ratio 08/24/2024 024, 07/19/2022, 04/06/2021, Additional history exists Depression Monitoring 08/24/2024 08/25/2023 DIG LEVEL FOR MEDICATION MONITORING YEARLY 09/20/2024 09/21/2023, 06/22/2023, 04/29/2023, Additional history exists CKD HGB USE SMARTSET 42407 09/27/202409/27, 09/27/2023, 09/27/2023, Additional history exists DTaP,Tdap,and Td Vaccines (2 - Td or Tdap) 12/31/2029 01/01/2020 (Declined), 12/30/2009, 12/30/2009, Additional history exists Pneumococcal Vaccine: 65+ Years Completed 02/08/2017, 02/23/2006 VITAMIN D LEVEL ONCE IN A LIFETIME-USE SMARTSET# 43279 Completed 08/17/2023, 06/27/2023, 06/22/2023, Additional history exists [...] this encounter Medical Devices Implanted Type Area Silk Opener Device Identifier Shelf Expiration Date Model / Serial / Lot Lead Novus Bipolar 58cm - [id number] - [id number] Implanted:Qty: 1 on 04/11/2017 by Elda Patterson DO at OR [facility] Left: Heart [employer] : [facility] 12/18/2018 5076-58 / [id number] / Description:RIGHT VENTRICLE LEAD Lead Novus Bipolar 52cm - [id number] - [id number] Implanted:Qty: 1 on 04/11/2017 by Elda Patterson DO at OR [facility] Left: Heart [employer] : [facility] 12/24/2018 5076-52 / [id number] / Description:RIGHT ATRIAL ROCKY D Pacer Advisa Dr Dorsey - [id number] - [id number] Implanted:Qty: 1 on 04/11/2017 by Elda Patterson DO at OR [facility] Left: Chest [employer] 08/25/2018 A2DR01 / [id number] / documented as of this encounter Advance Directives Documents on File Type Date Recorded Patient Front Desk Monitor Expl anation POLST 01/05/2021 [place] [facility] FOR LIFE-SUSTAINING [...] 9:35 AM 07/03/2008 5:40 PM Care Teams Centerless Grinder Operator Relationship Specialty Start Date End Date Cathy Wilburn MD [address] [place] [address] [place] [phone] PCP - General Family Medicine 12/03/22 documented as of this encounter
--- OUTSIDE RECORDS SUMMARY | 2023-11-28 14:35 | External Medical Summary | Summary of Care ---
Author Name Unknown Organization [facility] Address [address] [place] [address] Phone [phone] Care Team Providers Care Aircraft Instrument Tester Name Role Phone Cathy Wilburn MD Primary Care Provide r Encounter Details Date Type Department Care Team (Late st Contact Info) Description 10/05/2023 Population Health External Data Unspecified Department Allergies Active Allergy Reactions Criticality Noted Date [...] MG Oral Tablet (Lipitor)Indications :Atherosclerosis of [place] coronary artery of [place] heart without angina pectoris,Dyslipidemi a, goal LDL [...] lumbosacral intervertebral disc 02/04/2009 Coronary atherosclerosis of [place] coronary luis ry 02/24/2005 Senile osteoporosis 05/14/2003 [...] 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 LOC PRIM [id number] 02/14/200205/30 Other seborrheic keratosis 10/31/2001 0 06/06/2007 [...] 11:00 AM EDT Office Visit Family Medicine [address] [place] [phone] Ceci Knapp PA-C [address] [place] [address] [place] [phone] 10/12/2023 3:00 PM EDT Office Visit Sleep Disorders Ctr [facility] [address] [facility] [place] [phone] Isabel Diallo, DO 132 [facility] [place] [address] 12/05/2023 1:00 PM EDT Imaging Radiology, [address] [place] [address] 12/20/2023 11:00 AM EDT Office Visit Orthopaedics [facility] [address] [facility] [place] [address] Kian Travis, DO 132 [facility] [place] [address] 12/26/2023 2:30 PM EDT Nurse Only Rheumatology [address] [place] [phone] [place], Nurse [address] [place] [phone] 01/06/2024 2:00 PM EST Office Visit Nephrology [address] [place] [address] Charlotte Cope PA-C 200 [facility] [place] [address] 01/23/2024 2:20 PM EST Office Visit Dermatology [address] [place] [address] Amber Orozco PA-C [address] [place] [address] [place] [address] 02/02/2024 2:30 PM EST Office Visit Hematology/Oncology [facility] [address] [place] [phone] Mirna Camp CRNP [address] [place] [address] 02/14/2024 1:30 PM EST Office Visit Cardiology, [facility] [address] [place] [address] Jane Ashley CRNP [address] [place] [address] 05/15/2024 1:00 PM EDT Office Visit Nephrology [address] [place] [address] Charlotte Cope PA-C [address] [place] [address] 06/06/2024 3:20 PM EDT Office Visit Family Medicine [address] [place] [phone] Cathy Wilburn MD [address] [place] [address] [place] [address] Health Maintenance Due Date Last Done Comments Adult Wellness Visit 05/30/2021 05/30/2020 COVID-19 Vaccine ( season) 2022 DXA Scan 10/22/2023 10/21/2021, 09/29, 08/28/2018, Additional history exists CKD PHOS USE SMARTSET 41248 08/16/202407/29, 05/12/2023, 11/05/2022, Additional history exists Albumin/Creatinine Ratio 08/24/2024 024, 07/19/2022, 04/06/2021, Additional history exists Depression Monitoring 08/24/2024 08/25/2023 DIG LEVEL FOR MEDICATION MONITORING YEARLY 09/20/2024 09/21/2023, 06/22/2023, 04/29/2023, Additional history exists CKD HGB USE SMARTSET 42012 09/27/202409/27, 09/27/2023, 09/27/2023, Additional history exists DTaP,Tdap,and Td Vaccines (2 - Td or Tdap) 12/31/2029 01/01/2020 (Declined), 12/30/2009, 12/30/2009, Additional history exists Pneumococcal Vaccine: 65+ Years Completed 02/08/2017, 02/23/2006 VITAMIN D LEVEL ONCE IN A LIFETIME-USE SMARTSET# 73831 Completed 08/17/2023, 06/27/2023, 06/22/2023, Additional history exists [...] this encounter Medical Devices Implanted Type Area Paper Box Maker Device Identifier Shelf Expiration Date Model / Serial / Lot Lead Novus Bipolar 58cm - [id number] - [id number] Implanted:Qty: 1 on 04/11/2017 by Elda Patterson DO at OR [facility] Left: Heart [employer] : YONATHAN 12/18/2018 5076-58 / [id number] / Description:RIGHT VENTRICLE LEAD Lead Novus Bipolar 52cm - [id number] - [id number] Implanted:Qty: 1 on 04/11/2017 by Elda Patterson DO at OR [facility] Left: Heart [employer] : [facility] 12/24/2018 5076-52 / [id number] / Description:RIGHT ATRIAL ROCKY D Pacer Advisa Dr Dorsey - [id number] - [id number] Implanted:Qty: 1 on 04/11/2017 by Elda Patterson DO at OR [facility] Left: Chest [employer] 08/25/2018 A2DR01 / [id number] / documented as of this encounter Advance Directives Documents on File Type Date Recorded Patient Vocational Rehabilitation Counselor Expl anation POLST 01/05/2021 [place] OR [facility] FOR LIFE-SUSTAINING TREATMENT * Full Code (Latest [...] 9:35 AM 07/03/2008 5:40 PM Care Teams Aircraft Instrument Tester Relationship Specialty Start Date End Date Cathy Wilburn MD [address] [place] [address] [place] [address] PCP - General Family Medicine 12/03/22 documented as of this encounter
--- OUTSIDE RECORDS SUMMARY | 2023-11-28 14:35 | External Medical Summary | Summary of Care ---
Author Name Unknown Organization [facility] Address [address] [facility] [place] [address] Phone [phone] Care Team Providers Care Child Caregiver Name Role Phone Cathy Wilburn MD Primary Care Provide r Reason for Visit * Reason Comments Dosage Adjustment Via Phone (anticoag Cl inic) Encounter Details Date Type Department Care Team (Late st Contact Info) Description 10/13/2023 6:45 AM EDT Anticoagulation [facility], Mukesh Downey [address] [place] [address] [place] [address] [place] [address] Paroxysmal atrial fibrillation (HCC)* Allergies Active Allergy [...] as of this encounter (statuses as of 10/13/2023) Medications Medication Sig Dispensed Refills Start Date End Date Status Acetaminophen 325 MG Oral Tablet (Tylenol) Take by mouth 2 Tablets every 4 hours as needed for Fever >38C(100.5F), Pain, Mild, Pain, Moderate or Pain, Severe. 100 Tablet 1 2021 Active Atorvastatin Calcium 40 MG Oral Tablet (Lipitor)Indications :Atherosclerosis of [place] coronary artery of [place] heart without angina pectoris,Dyslipidemi a, goal [...] as of this encounter (statuses as of 10/13/2023) Active Problems Problem Noted Date Diagnosed Date [...] lumbosacral intervertebral disc 02/04/2009 Coronary atherosclerosis of [place] coronary luis ry 02/24/2005 Senile osteoporosis 05/14/2003 Carpal tunnel syndrome 04/23/2003 Moderate mitral regurgitation GENERAL OSTEOARTHROSIS Gastroesophageal reflux disease without esophagi tis Vitamin D deficiency Hyperparathyroidism, primary documented as of this encounter (statuses as of 10/13/2023) Resolved Problems Problem Noted Date Diagnosed Date [...] 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 LOC PRIM [id number] 02/14/200205/30 Other seborrheic keratosis 10/31/2001 0 06/06/2007 [...] as of this encounter (statuses as of 10/13/2023) Immunizations Name Administration Dates Next Due Pneumococcal [...] Progress Notes * Vonnie Lam RPh - 10/13/2023 2:23 PM EDT Date/Time Type Contact Phone/Fax 10/13/2023 02:23 PM EDT by Vonnie Lam RPh Outgoing Miranda Coe (Self) Remove Spoke to Patient Per Teams messages GML cancelled future GML appts stating pt is no longer taking Warfarin. Spoke with patient and confirmed she is now taking Eliquis and copay is affordable for her. [facility] will discharge at this time. Patient discharged from [facility] service at this time. Discharge Checklist 1. Delete the care team [x] 2. Uncheck list membership [x] 3. D/C Coag orders [x] 4. Resolve episode [x] 5. Discontinue warfarin on med list (if applicable) [x] 6. Cancel future appointments [x] Vonnie Lam Rph, Pharm.D. Clinical Pharmacist [facility] ([facility]) [phone] 10/13/2023,2:26 PM * Maya Daniel CPhT - 10/13/2023 10:22 AM EDT Patient on lost list, 10/03/23 [facility]PS follow up call cancelled by [facility], no documentation in chart found.GML appointment for 09/29 cancelled with note stating patient no longer on Coumadin. Please dischargeif appropriate. Thank you, Maya Daniel CPhT Dispensary Technician III [facility] ([facility]) 10/13/2023 10:23 AM documented in this encounter Plan of Treatment Upcoming Encounters Date Type Department Care Team (Late st Contact Info) Description 12/05/2023 1:00 PM EDT Imaging Radiology, [address] [place], [place] [address] 12/20/2023 11:00 AM EDT Office Visit Orthopaedics [facility] 132 [facility] [place] [address] Kian Travis, [address] [place] [address] 12/26/2023 2:30 PM EDT Nurse Only Rheumatology [address] [place] [phone] [place], Nurse Rheum [address] [place] [phone] 01/06/2024 2:00 PM EST Office Visit Nephrology [address] [place] [address] Charlotte Cope PA-C [address] [place] [address] 01/23/2024 2:20 PM EST Office Visit Dermatology [address] [place] [address] Amber Orozco PA-C [address] [place] [address] [place] [address] 02/02/2024 2:30 PM EST Office Visit Hematology/Oncology [facility] [address] [place] [phone] Mirna Camp CRNP [address] [address] 02/14/2024 1:30 PM EST Office Visit Cardiology, [facility] 132 [facility] [place] [address] Jane Ashley CRNP [address] [place] [phone] 05/15/2024 1:00 PM EDT Office Visit Nephrology [address] [place] [address] Charlotte Cope PA-C 200 [facility] [place] [address] 06/06/2024 3:20 PM EDT Office Visit Family Medicine [address] [place] [phone] Cathy Wilburn MD [address] [place] [address] [place] [address] Health Maintenance Due Date Last Done Comments Adult Wellness Visit 05/30/2021 05/30/2020 COVID-19 Vaccine ( season) 2022 DXA Scan 10/22/2023 10/21/2021, 09/29, 08/28/2018, Additional history exists CKD PHOS USE SMARTSET 93420 08/16/202407/29, 05/12/2023, 11/05/2022, Additional history exists Albumin/Creatinine Ratio 08/24/2024 024, 07/19/2022, 04/06/2021, Additional history exists Depression Monitoring 08/24/2024 08/25/2023 DIG LEVEL FOR MEDICATION MONITORING YEARLY 09/20/2024 09/21/2023, 06/22/2023, 04/29/2023, Additional history exists CKD HGB USE SMARTSET 32277 09/27/202409/27, 09/27/2023, 09/27/2023, Additional history exists DTaP,Tdap,and Td Vaccines (2 - Td or Tdap) 12/31/2029 01/01/2020 (Declined), 12/30/2009, 12/30/2009, Additional history exists Pneumococcal Vaccine: 65+ Years Completed 02/08/2017, 02/23/2006 VITAMIN D LEVEL ONCE IN A LIFETIME-USE SMARTSET# 79595 Completed 08/17/2023, 06/27/2023, 06/22/2023, Additional history exists [...] encounter Medical Devices Implanted Type Area Director Foundation Device Identifier Shelf Expiration Date Model / Serial / Lot Lead Novus Bipolar 58cm - [id number] - [id number] Implanted:Qty: 1 on 04/11/2017 by Elda Patterson DO at OR [facility] Left: Heart [employer] : [facility] 12/18/2018 5076-58 / [id number] / Description:RIGHT VENTRICLE LEAD Lead Novus Bipolar 52cm - [id number] - [id number] Implanted:Qty: 1 on 04/11/2017 by Elda Patterson DO at OR [facility] Left: Heart [employer] : [facility] 12/24/2018 5076-52 / [id number] / Description:RIGHT ATRIAL ROCKY D Pacer Advisa Dr Dorsey - [id number] - [id number] Implanted:Qty: 1 on 04/11/2017 by Elda Patterson DO at OR [facility] Left: Chest [employer] 08/25/2018 A2DR01 / [id number] / documented as of this encounter Visit Diagnoses Diagnosis Paroxysmal atrial fibrillation (HCC)- Primary Atrial fibrillation documented in this encounter Advance Directives Documents on File Type Date Recorded Patient Gusset Folder Expl anation POL 01/05/2021 [place] OR [facility] FOR LIFE-SUSTAINING TREATMENT [...] AM 07/03/2008 5:40 PM Care Teams Child Caregiver Relationship Specialty Start Date End Date Cathy Wilburn MD [address] [place] [address] [place] [phone] PCP - General Family Medicine 12/03/22 documented as of this encounter
--- OUTSIDE RECORDS SUMMARY | 2023-11-28 14:35 | External Medical Summary | Summary of Care ---
Author Name Unknown Organization [facility] Address [address] [facility] [place] [address] Phone [phone] Care Team Providers Care Operations Lead Name Role Phone Cathy Wilburn MD Primary Care Provide r Reason for Visit * Reason Onset Date Comments Appointment 10/18/2023 Encounter Details Date Type Department Care Team (Late st Contact Info) Description 10/18/2023 Telephone Ancillary [address] [place] [address] Shital Haynes RN Appointment Allergies Active Allergy Reactions Criticality Noted Date [...] as of this encounter (statuses as of 10/18/2023) Medications Medication Sig Dispensed Refills Start Date [...] as of this encounter (statuses as of 10/18/2023) Active Problems Problem Noted Date Diagnosed Date [...] as of this encounter (statuses as of 10/18/2023) Resolved Problems Problem Noted Date Diagnosed Date [...] 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 LOC PRIM [id number] 02/14/200205/30 Other seborrheic keratosis 10/31/2001 0 06/06/2007 [...] as of this encounter (statuses as of 10/18/2023) Immunizations Name Administration Dates Next Due Pneumococcal [...] No 09/07/2023 Does the household have a [facility] source of income? (Household - for ages [...] encounter Miscellaneous Notes * Telephone Encounter - Shital Haynes RN - 10/18/2023 3:30 PM EDT Per Cathy Wilburn MD he wanted me to call patient to scheduled a HD, [place]. I spoke to patient she will be home after Tuesday the , HD appointment made with Dr. Max for 10/28/23. Patient to call sooner if any problems. Patient states when she does come home she will be staying by herself and she said HH will start to come back in. documented in this encounter Plan of Treatment Upcoming Encounters Date Type Department Care Team (Late st Contact Info) Description 10/28/2023 2:20 PM EDT Office Visit Family Medicine [address] [place] [phone] Arvin Max MD [address] [place] [address] [place] [address] 12/05/2023 1:00 PM EDT Imaging Radiology, [address] [place] [address] 12/20/2023 11:00 AM EDT Office Visit Orthopaedics [facility] [address] [place] [address] Kian Travis, [address] [place] [address] 12/26/2023 2:30 PM EDT Nurse Only Rheumatology [address] [place] [phone] [place], Nurse Rheum [address] [place] [phone] 01/06/2024 2:00 PM EST Office Visit Nephrology [address] [place] [address] Charlotte Cope PA-C [address] [place] [address] 01/23/2024 2:20 PM EST Office Visit Dermatology [address] [place] [address] Amber Orozco PA-C [address] [place] [address] [place] [address] 02/02/2024 2:30 PM EST Office Visit Hematology/Oncology [facility] 200 [facility] [place] [phone] Mirna Camp CRNP [address] [place] [address] 02/14/2024 1:30 PM EST Office Visit Cardiology, [facility] 132 [facility] [place] [address] Jane Ashley CRNP [address] [place] [address] 05/15/2024 1:00 PM EDT Office Visit Nephrology [address] [place] [address] Charlotte Cope PA-C 200 [facility] [place] [address] 06/06/2024 3:20 PM EDT Office Visit Family Medicine [address] [place] [phone] Cathy Wilburn MD [address] [place] [address] [place] [address] Health Maintenance Due Date Last Done Comments Adult Wellness Visit 05/30/2021 05/30/2020 COVID-19 Vaccine ( season) 2022 DXA Scan 10/22/2023 10/21/2021, 09/29, 08/28/2018, Additional history exists CKD PHOS USE SMARTSET 24933 08/16/202407/29, 05/12/2023, 11/05/2022, Additional history exists Albumin/Creatinine Ratio 08/24/2024 024, 07/19/2022, 04/06/2021, Additional history exists Depression Monitoring 08/24/2024 08/25/2023 DIG LEVEL FOR MEDICATION MONITORING YEARLY 09/20/2024 09/21/2023, 06/22/2023, 04/29/2023, Additional history exists CKD HGB USE SMARTSET 35832 09/27/202409/27, 09/27/2023, 09/27/2023, Additional history exists DTaP,Tdap,and Td Vaccines (2 - Td or Tdap) 12/31/2029 01/01/2020 (Declined), 12/30/2009, 12/30/2009, Additional history exists Pneumococcal Vaccine: 65+ Years Completed 02/08/2017, 02/23/2006 VITAMIN D LEVEL ONCE IN A LIFETIME-USE SMARTSET# 15413 Completed 08/17/2023, 06/27/2023, 06/22/2023, Additional history exists [...] this encounter Medical Devices Implanted Type Area Esthetician Facialist Device Identifier Shelf Expiration Date Model / Serial / Lot Lead Novus Bipolar 58cm - [id number] - [id number] Implanted:Qty: 1 on 04/11/2017 by Elda Patterson DO at OR [facility] Left: Heart [employer] : YONATHAN 12/18/2018 5076-58 / [id number] / Description:RIGHT VENTRICLE LEAD Lead Novus Bipolar 52cm - [id number] - [id number] Implanted:Qty: 1 on 04/11/2017 by Elda Patterson DO at OR [facility] Left: Heart [employer] : YONATHAN 12/24/2018 5076-52 / [id number] / Description:RIGHT ATRIAL ROCKY D Pacer Advisa Dr Dorsey - [id number] - [id number] Implanted:Qty: 1 on 04/11/2017 by Elda Patterson DO at OR [facility] Left: Chest [employer] 08/25/2018 A2DR01 / [id number] / documented as of this encounter Advance Directives Documents on File Type Date Recorded Patient Dog Barber Expl anation POLST 01/05/2021 [place] OR [facility] FOR LIFE-SUSTAINING TREATMENT * Full [...] AM 07/03/2008 5:40 PM Care Teams Operations Lead Relationship Specialty Start Date End Date Cathy Wilburn MD [address] [place] [address] [place] [address] PCP - General Family Medicine 12/03/22 documented as of this encounter
--- OUTSIDE RECORDS SUMMARY | 2023-11-28 14:35 | External Medical Summary | Summary of Care ---
Author Name Unknown Organization [facility] Address [address] [facility] [place] [address] Phone [phone] Care Team Providers Care Tape Control Skin Or Spar Mill Operator Name Role Phone Cathy Wilburn MD Primary Care Provide r Reason for Visit * Reason Onset Date Comments Appointment 10/18/2023 Encounter Details Date Type Department Care Team (Late st Contact Info) Description 10/18/2023 Telephone Ancillary [address] [place] [address] Shital Haynes RN [...] as of this encounter (statuses as of 10/19/2023) Medications Medication Sig Dispensed Refills Start Date End Date Status Acetaminophen 325 MG Oral Tablet (Tylenol) Take by mouth 2 Tablets every 4 hours as needed for Fever >38C(100.5F), Pain, Mild, Pain, Moderate or Pain, Severe. 100 Tablet 1 2021 Active Atorvastatin Calcium 40 MG Oral Tablet (Lipitor)Indications :Atherosclerosis of [place] coronary artery of [place] heart without angina pectoris,Dyslipidemi a, goal LDL [...] as of this encounter (statuses as of 10/19/2023) Active Problems Problem Noted Date Diagnosed Date [...] Distal RLE History of colon cancer 07/17/2021 Tachy-karig syndrome 07/17/2021 Nonischemic cardiomyopathy 07/08/2021 LVH (left [...] lumbosacral intervertebral disc 02/04/2009 Coronary atherosclerosis of [place] coronary luis ry 02/24/2005 Senile osteoporosis 05/14/2003 Carpal tunnel syndrome 04/23/2003 Moderate mitral regurgitation GENERAL OSTEOARTHROSIS Gastroesophageal reflux disease without esophagi tis Vitamin D deficiency Hyperparathyroidism, primary documented as of this encounter (statuses as of 10/19/2023) Resolved Problems Problem Noted Date Diagnosed Date [...] 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 LOC PRIM [id number] 02/14/200205/30 Other seborrheic keratosis 10/31/2001 0 06/06/2007 [...] as of this encounter (statuses as of 10/19/2023) Immunizations Name Administration Dates Next Due Pneumococcal [...] No 09/07/2023 Does the household have a [facility] source of income? (Household - for ages [...] Telephone Encounter - Cathy Wilburn MD - 10/19/2023 7:54 AM EDT Noted and thank you * Telephone Encounter - Shital Haynes RN [...] PM EDT Office Visit Family Medicine [address] [place] [phone] Arvin Max MD [address] [place] [address] [place] [address] 12/05/2023 1:00 PM EDT Imaging Radiology, [address] [place] [address] 12/20/2023 11:00 AM EDT Office Visit Orthopaedics [facility] [address] [place] [address] Kian Travis, [address] [place] [address] 12/26/2023 2:30 PM EDT Nurse Only Rheumatology [address] [place] [phone] [place], Nurse Rheum [address] [place] [phone] 01/06/2024 2:00 PM EST Office Visit Nephrology [address] [place] [address] Charlotte Cope PA-C [address] [place] [address] 01/23/2024 2:20 PM EST Office Visit Dermatology [address] [place] [address] Amber rOozco PA-C [address] [place] [address] [place] [address] 02/02/2024 2:30 PM EST Office Visit Hematology/Oncology [facility] [address] [place] [phone] Mirna Camp CRNP [address] [place] [address] 02/14/2024 1:30 PM EST Office Visit Cardiology, [facility] [address] [facility] [place] [address] Jane Ashley CRNP 400 [place] [address] 05/15/2024 1:00 PM EDT Office Visit Nephrology [address] [place] [address] Charlotte Cope PA-C [address] [place] [address] 06/06/2024 3:20 PM EDT Office Visit Family Medicine [address] [place] [phone] Cathy Wilburn MD [address] [place] [address] [place] [address] Health Maintenance Due Date Last Done Comments Adult Wellness Visit 05/30/2021 05/30/2020 COVID-19 Vaccine (2022- season) 2022 DXA Scan 10/22/2023 10/21/2021, 09/29, 08/28/2018, Additional history exists CKD PHOS USE SMARTSET 56019 08/16/202407/29, 05/12/2023, 11/05/2022, Additional history exists Albumin/Creatinine Ratio 08/24/2024 024, 07/19/2022, 04/06/2021, Additional history exists Depression Monitoring 08/24/2024 08/25/2023 DIG LEVEL FOR MEDICATION MONITORING YEARLY 09/20/2024 09/21/2023, 06/22/2023, 04/29/2023, Additional history exists CKD HGB USE SMARTSET 97497 09/27/202409/27, 09/27/2023, 09/27/2023, Additional history exists DTaP,Tdap,and Td Vaccines (2 - Td or Tdap) 12/31/2029 01/01/2020 (Declined), 12/30/2009, 12/30/2009, Additional history exists Pneumococcal Vaccine: 65+ Years Completed 02/08/2017, 02/23/2006 VITAMIN D LEVEL ONCE IN A LIFETIME-USE SMARTSET# [id number] Completed 08/17/2023, 06/27/2023, 06/22/2023, Additional history exists [...] this encounter Medical Devices Implanted Type Area Scaffold Builder Device Identifier Shelf Expiration Date Model / Serial / Lot Lead Novus Bipolar 58cm - [id number] - [id number] Implanted:Qty: 1 on 04/11/2017 by Elda Patterson DO at OR [facility] Left: Heart [employer] : CRM 12/18/2018 5076-58 / [id number] / Description:RIGHT VENTRICLE LEAD Lead Novus Bipolar 52cm - [id number] - [id number] Implanted:Qty: 1 on 04/11/2017 by Elda Patterson DO at OR [facility] Left: Heart [employer] : CRM 12/24/2018 5076-52 / [id number] / Description:RIGHT ATRIAL ROCKY D Pacer Advisa Dr Dorsey - [id number] - [id number] Implanted:Qty: 1 on 04/11/2017 by Elda Patterson DO at OR [facility] Left: Chest [employer] 08/25/2018 A2DR01 / [id number] / documented as of this encounter Advance Directives Documents on File Type Date Recorded Patient Public Affairs Manager Expl anation POLST 01/05/2021 [place] OR [facility]-SUSTAINING TREATMENT * Full Code [...] 9:35 AM 07/03/2008 5:40 PM Care Teams Tape Control Skin Or Spar Mill Operator Relationship Specialty Start Date End Date Cathy Wilburn MD [address] [place] [address] [place] [address] PCP - General Family Medicine 12/03/22 documented as of this encounter
--- OUTSIDE RECORDS SUMMARY | 2023-11-28 14:36 | External Medical Summary | Summary of Care ---
Author Name Unknown Organization [facility] Address [address] [facility] [place] [address] Phone [phone] Care Team Providers Care Spa Manager Name Role Phone Cathy Wilburn MD Primary Care Provide r Reason for Visit * Reason Comments Dosage Adjustment Via Phone (anticoag Cl inic) Encounter Details Date Type Department Care Team (Late st Contact Info) Description 09/29/2023 6:00 AM EDT An[facility], Mukesh Downey [address] [place] [address] [place] [address] [place] [address] Paroxysmal atrial fibrillation (HCC)* Allergies Active Allergy [...] as of this encounter (statuses as of 09/29/2023) Medications Medication Sig Dispensed Refills Start Date End Date Status Acetaminophen 325 MG Oral Tablet (Tylenol) Take by mouth 2 Tablets every 4 hours as needed for Fever >38C(100.5F), Pain, Mild, Pain, Moderate or Pain, Severe. 100 Tablet 1 2021 Active Atorvastatin Calcium 40 MG Oral Tablet (Lipitor)Indications :Atherosclerosis of [place] coronary artery of [place] heart without angina pectoris,Dyslipidemi a, goal LDL [...] Tablet by mouth in the morning. Active Metoprolol Succinate ER 100 MG Oral Tablet Extended Release 24 Hour (toPROL XL) Take 1 Tablet by mouth in the morning and 1 Tablet before bedtime. Active oxygen IN GAS Use 2 L/min(Oxygen) [...] Tablet before bedtime. 60 Tablet 2 09/28/2023 Active documented as of this encounter (statuses as of 09/29/2023) Active Problems Problem Noted Date Diagnosed Date [...] lumbosacral intervertebral disc 02/04/2009 Coronary atherosclerosis of [place] coronary luis ry 02/24/2005 Senile osteoporosis 05/14/2003 Carpal tunnel syndrome 04/23/2003 Moderate mitral regurgitation GENERAL OSTEOARTHROSIS Gastroesophageal reflux disease without esophagi tis Vitamin D deficiency Hyperparathyroidism, primary documented as of this encounter (statuses as of 09/29/2023) Resolved Problems Problem Noted Date Diagnosed Date [...] 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 LOC PRIM [id number] 02/14/200205/30 Other seborrheic keratosis 10/31/2001 0 06/06/2007 [...] as of this encounter (statuses as of 09/29/2023) Immunizations Name Administration Dates Next Due Pneumococcal [...] No 09/07/2023 Does the household have a [facility] source [facility]? (Household - for [...] as of this encounter Progress Notes * Sharyn Alas, weather analyst - 09/29/2023 7:34 AM EDT INR was missed by [facility] on 09/27. Chart routed to mobile lab asking that pt be rescheduled for 09/29. F/U call scheduled for 10/02 Thank you, Sharyn Alas Dredge Master [facility] ([facility]) [phone] 09/29/2023,7:35 AM documented in this encounter Plan of Treatment Upcoming Encounters Date Type Department Care Team (Late st Contact Info) Description 09/30/2023 6:45 AM EDT Anticoagulation [facility], Mukesh Downey [address] [place] [address] [place] [address] [facility], [address] [place] [address] 10/03/2023 6:00 AM EDT Anticoagulation [facility], [address] [place] [address] [facility], [address] [place] [address] 10/12/2023 3:00 PM EDT Office Visit Sleep Disorders Ctr [facility] [address] [place] [phone] Isabel Diallo, DO [address] [place] [address] 12/05/2023 1:00 PM EDT Imaging Radiology, [address] [place] [address] 12/20/2023 11:00 AM EDT Office Visit Orthopaedics [facility] [address] [place] [address] Kian Travis, DO [address] [place] [address] 12/26/2023 2:30 PM EDT Nurse Only Rheumatology [address] [place] [phone] [place], Nurse [address] [place] [phone] 01/06/2024 2:00 PM EST Office Visit Nephrology [address] [place] [address] Charlotte Cope PA-C [address] [place] [address] 01/23/2024 2:20 PM EST Office Visit Dermatology [address] [place] [address] Amber Orozco PA-C [address] [place] [address] [place] [address] 02/02/2024 2:30 PM EST Office Visit Hematology/Oncology [facility] [address] [place] [phone] Mirna Camp CRNP [address] [place] [address] 02/14/2024 1:30 PM EST Office Visit Cardiology, [facility] [address] [facility] [place] [address] Jane Ashley CRNP [address] [place] [address] 05/15/2024 1:00 PM EDT Office Visit Nephrology [address] [place] [address] Charlotte Cope PA-C [address] [place] [address] 06/06/2024 3:20 PM EDT Office Visit Family Medicine [address] [place] [phone] Cathy Wilburn MD [address] [place] [address] [place] [address] Health Maintenance Due Date Last Done Comments COVID-19 Vaccine (2022- season) 2022 DXA Scan 10/22/2023 10/21/2021, 09/29, 08/28/2018, Additional history exists CKD PHOS USE SMARTSET 57752 08/16/202407/29, 05/12/2023, 11/05/2022, Additional history exists Albumin/Creatinine Ratio 08/24/2024 024, 07/19/2022, 04/06/2021, Additional history exists Depression Monitoring 08/24/2024 08/25/2023 DIG LEVEL FOR MEDICATION MONITORING YEARLY 09/20/2024 09/21/2023, 06/22/2023, 04/29/2023, Additional history exists CKD HGB USE SMARTSET 24766 09/27/202409/27, 09/27/2023, 09/27/2023, Additional history exists DTaP,Tdap,and Td Vaccines (2 - Td or Tdap) 12/31/2029 01/01/2020 (Declined), 12/30/2009, 12/30/2009, Additional history exists Pneumococcal Vaccine: 65+ Years Completed 02/08/2017, 02/23/2006 VITAMIN D LEVEL ONCE IN A LIFETIME-USE SMARTSET# 34628 Completed 08/17/2023, 06/27/2023, 06/22/2023, Additional history exists [...] this encounter Medical Devices Implanted Type Area Operations Support Manager Device Identifier Shelf Expiration Date Model / Serial / Lot Lead Novus Bipolar 58cm - [id number] - [id number] Implanted:Qty: 1 on 04/11/2017 by Elda Patterson DO at OR [facility] Left: Heart [employer] : [facility] 12/18/2018 5076-58 / [id number] / Description:RIGHT VENTRICLE LEAD Lead Novus Bipolar 52cm - [id number] - [id number] Implanted:Qty: 1 on 04/11/2017 by Elda Patterson DO at [facility] Left: Heart [employer] : [facility] 12/24/2018 5076-52 / [id number] / Description:RIGHT ATRIAL ROCKY D Pacer Advisa Dr Dorsey - [id number] - [id number] Implanted:Qty: 1 on 04/11/2017 by Elda Patterson DO at OR [facility] Left: Chest [employer] 08/25/2018 A2DR01 / [id number] / documented as of this encounter Visit Diagnoses Diagnosis Paroxysmal atrial fibrillation (HCC)- Primary Atrial fibrillation documented in this encounter Advance Directives Documents on File Type Date Recorded Patient Coal Sample Tester Expl anation POL 01/05/2021 [place] OR [facility] FOR LIFE-SUSTAINING TREATMENT * Full Code [...] 9:35 AM 07/03/2008 5:40 PM Care Teams Spa Manager Relationship Specialty Start Date End Date Cathy Wilburn MD [address] [place] [address] [place] [address] PCP - General Family Medicine 12/03/22 documented as of this encounter
--- OUTSIDE RECORDS SUMMARY | 2023-11-28 14:36 | External Medical Summary | Summary of Care ---
Author Name Unknown Organization [facility] Address [address] [place] [address] Phone [phone] Care Team Providers Care Assistant Surveyor Name Role Phone Maxwell Fregoso MD Primary Care Provide r Reason for Visit * Reason Comments eRx-Medication Refill Encounter Details Date Type Department Care Team (Late st Contact Info) Description 09/29/2023 Refill Family Medicine [address] [place] [phone] Maxwell Fregoso MD [address] [place] [address] [place] [address] Chronic diastolic heart failure (HCC) Allergies Active [...] as of this encounter (statuses as of 09/30/2023) Medications Medication Sig Dispensed Refills Start Date End Date Status Acetaminophen 325 MG Oral Tablet (Tylenol) Take by mouth 2 Tablets every 4 hours as needed for Fever >38C(100.5F), Pain, Mild, Pain, Moderate or Pain, Severe. 100 Tablet 1 2021 Active Atorvastatin Calcium 40 MG Oral Tablet (Lipitor)Indications :Atherosclerosis of [place] coronary artery of [place] heart without angina pectoris,Dyslipidemi a, goal LDL [...] before bedtime. 60 Tablet 2 09/28/2023 Active Potassium Chloride ER 10 MEQ Oral Capsule Extended ReleaseIndications:C hronic diastolic heart failure (HCC) TAKE ONE CAPSULE BY MOUTH IN THE MORNING 30 Capsule 1 09/30/2023 Active documented as of this encounter (statuses as of 09/30/2023) Active Problems Problem Noted Date Diagnosed Date [...] lumbosacral intervertebral disc 02/04/2009 Coronary atherosclerosis of [place] coronary luis ry 02/24/2005 Senile osteoporosis 05/14/2003 Carpal tunnel syndrome 04/23/2003 Moderate mitral regurgitation GENERAL OSTEOARTHROSIS Gastroesophageal reflux disease without esophagi tis Vitamin D deficiency Hyperparathyroidism, primary documented as of this encounter (statuses as of 09/30/2023) Resolved Problems Problem Noted Date Diagnosed Date [...] 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 LOC PRIM [id number] 02/14/200205/30 Other seborrheic keratosis 10/31/2001 0 06/06/2007 [...] as of this encounter (statuses as of 09/30/2023) Immunizations Name Administration Dates Next Due Pneumococcal [...] Telephone Encounter - Maxwell Fregoso MD - 09/30/2023 8:39 AM EDT Signed Prescriptions: Disp Refills Potassium Chloride ER 10 MEQ Oral Capsule *30 Cap*1 Sig: TAKE ONE CAPSULE BY MOUTH IN THE MORNING Authorizing Provider: MAXWELL FREGOSO * Telephone Encounter - Enedelia Vuong [facility] - 09/30/2023 8:09 AM EDT Pending Prescriptions: Disp Refills Potassium Chloride ER 10 MEQ Oral Capsule *30 Cap*1 Sig: TAKE ONE CAPSULE BY MOUTH IN THE MORNING * Telephone Encounter - Enedelia Vuong [facility] - 09/30/2023 8:08 AM EDT Pending Prescriptions: Disp Refills Potassium Chloride ER 10 MEQ Oral Capsule*30 Cap*1 Sig: TAKE ONE CAPSULE BY MOUTH IN THE MORNING Last Visit: 09/20/2023 (in office), Visit date not found (telemedicine) Next Visit: 06/06/2024 If no future appointments scheduled, and last appointment is greater than a year ago, please schedule patient for a follow-up appointment Last date the medication was ordered: 07/21/23 Is this request for a controlled substance?No Urine Drug Screen:No results found. However, due to the size of the patient record, not all encounters were searched. Please check Results Review for a complete set of results. Patient Phone Numbers Labs: Lab Results Component Value Date/Time CREAT 1.7 (H) 09/28/2023 01:21 PM CREAT 1.5 (H) 09/21/2023 03:22 AM CREAT 1.0 01/30/2020 01:01 PM POTASSIUM 4.5 09/28/2023 01:21 PM POTASSIUM 4.7 09/21/2023 03:22 AM POTASSIUM 3.8 01/30/2020 01:01 PM TSH 2.53 07/19/2023 09:54 AM TSH 1.92 10/31/2019 01:05 PM LDLCALC 60 03/17/2023 01:41 PM LDLCALC 82 10/31/2019 01:05 PM LDLDIRECT 81 07/09/2021 11:35 AM LDLDIRECT NOT APPLICABLE 10/31/2019 01:05 PM LDLDIRECT 74 10/12/2006 09:47 AM ALT 15 09/21/2023 03:25 AM ALT 26 10/31/2019 01:05 PM documented in this encounter Plan of Treatment Upcoming Encounters Date Type Department Care Team (Late st Contact Info) Description 10/12/2023 3:00 PM EDT Office Visit Sleep Disorders Ctr [facility] [address] [place] [phone] Isabel Diallo, DO [address] [place] [address] 12/05/2023 1:00 PM EDT Imaging Radiology, [place] [address] [facility] [address] 12/20/2023 11:00 AM EDT Office Visit Orthopaedics [facility] [address] [place] [address] Kian Travis, DO [address] [place] [address] 12/26/2023 2:30 PM EDT Nurse Only Rheumatology [address] [place] [phone] [place], Nurse Rheum [address] [place] [phone] 01/06/2024 2:00 PM EST Office Visit Nephrology [address] [place] [address] Charlotte Cope PA-C [address] [place] [address] 01/23/2024 2:20 PM EST Office Visit Dermatology [address] [place] [address] Amber Orozco PA-C [address] [place] [address] [place] [address] 02/02/2024 2:30 PM EST Office Visit Hematology/Oncology [facility] [place] [address] [place] [phone] Mirna Camp CRNP [address] [place] [address] 02/14/2024 1:30 PM EST Office Visit Cardiology, [facility] 132 [facility] [place] [address] Jane Ashley CRNP [address] [place] [address] 05/15/2024 1:00 PM EDT Office Visit Nephrology [address] [place] [address] Charlotte Cope PA-C [address] [place] [address] 06/06/2024 3:20 PM EDT Office Visit Family Medicine [address] [place] [phone] Maxwell Fregoso MD [address] [place] [address] [place] [address] Health Maintenance Due Date Last Done Comments COVID-19 Vaccine ( season) 2022 DXA Scan 10/22/2023 10/21/2021, 09/29, 08/28/2018, Additional history exists CKD PHOS USE SMARTSET 31690 08/16/202407/29, 05/12/2023, 11/05/2022, Additional history exists Albumin/Creatinine Ratio 08/24/2024 024, 07/19/2022, 04/06/2021, Additional history exists Depression Monitoring 08/24/2024 08/25/2023 DIG LEVEL FOR MEDICATION MONITORING YEARLY 09/20/2024 09/21/2023, 06/22/2023, 04/29/2023, Additional history exists CKD HGB USE SMARTSET 70802 09/27/202409/27, 09/27/2023, 09/27/2023, Additional history exists DTaP,Tdap,and Td Vaccines (2 - Td or Tdap) 12/31/2029 01/01/2020 (Declined), 12/30/2009, 12/30/2009, Additional history exists Pneumococcal Vaccine: 65+ Years Completed 02/08/2017, 02/23/2006 VITAMIN D LEVEL ONCE IN A LIFETIME-USE SMARTSET# 98044 Completed 08/17/2023, 06/27/2023, 06/22/2023, Additional history exists [...] this encounter Medical Devices Implanted Type Area Hazardous Substances Engineer Device Identifier Shelf Expiration Date Model / Serial / Lot Lead Novus Bipolar 58cm - [id number] - [id number] Implanted:Qty: 1 on 04/11/2017 by Elda Patterson DO at OR [facility] Left: Heart [employer] : [facility] 12/18/2018 5076-58 / [id number] / Description:RIGHT VENTRICLE LEAD Lead Novus Bipolar 52cm - [id number] - [id number] Implanted:Qty: 1 on 04/11/2017 by Elda Patterson DO at OR [facility] Left: Heart [employer] : [facility] 12/24/2018 5076-52 / [id number] / Description:RIGHT ATRIAL ROCKY D Pacer Advisa Dr Dorsey - [id number] - [id number] Implanted:Qty: 1 on 04/11/2017 by Elda Patterson DO at [facility] Left: Chest [employer] 08/25/2018 A2DR01 / [id number] / documented as of this encounter Visit Diagnoses Diagnosis Chronic diastolic heart failure (HCC) Chronic diastolic heart failure documented in this encounter Advance Directives Documents on File Type Date Recorded Patient Huller Operator Expl anation POL 01/05/2021 [place] OR [facility] FOR LIFE-SUSTAINING TREATMENT * Full Code [...] 9:35 AM 07/03/2008 5:40 PM Care Teams Assistant Surveyor Relationship Specialty Start Date End Date Maxwell Fregoso MD [address] [place] [address] [place] [address] PCP - General Family Medicine 12/03/22 documented as of this encounter
--- OUTSIDE RECORDS SUMMARY | 2023-11-28 14:36 | External Medical Summary | Summary of Care ---
Author Name Unknown Organization [facility] Address [address] [place] [address] Phone [phone] Care Team Providers Care Diesel Scoop Operator Name Role Phone Cathy Fregoso MD Primary Care Provide r Reason for Visit * Reason Onset Date Comments Medication Refill 09/30/2023 Encounter Details Date Type Department Care Team (Late st Contact Info) Description 09/30/2023 Refill General Internal Medicine, [facility] [address] [place] [address] Jesus Latif, [address] [place], [place] [id number] Allergies Active Allergy Reactions Criticality Noted Date [...] 40 MG Oral Tablet (Lipitor)Indicatio ns:Atherosclerosis of [place] coronary artery of [place] heart without angina pectoris,Dyslipide martin, goal LDL [...] before bedtime. 60 Tablet 2 09/30/2023 Active Apixaban 2.5 MG Oral Tablet [...] lumbosacral intervertebral disc 02/04/2009 Coronary atherosclerosis of [place] coronary luis ry 02/24/2005 Senile osteoporosis [...] 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 LOC PRIM [id number] 02/14/200205/30 Other seborrheic keratosis 10/31/2001 0 06/06/2007 [...] encounter Miscellaneous Notes * Telephone Encounter - Dharmesh Lo [facility] - 09/30/2023 8:15 PM EDTSigned Prescriptions: Disp Refills Apixaban 2.5 MG Oral Tablet (Eliquis) 60 Tab*2 Sig: Take 1 Tablet by mouth in the morning and 1 Tablet before bedtime.Authorizing Provider: Rafal FREGOSO User: DHARMESH LO * Telephone Encounter - Dharmesh Lo [facility] - 09/30/2023 8:15 PM EDT Rerouted to new pharmacy as requested. Thank you, Dharmesh Lo, PharmD Clinical Pharmacist [facility] ([facility]) 09/30/23 8:15 PM [phone] * Telephone Encounter - Kiersten Harmon CPhT - 09/30/2023 2:26 PM EDT Please reroute Rx to [facility], [address] [place]. Pending Prescriptions: Disp Refills Apixaban 2.5 MG Oral Tablet (Eliquis) 60 Tab*2 Sig: Take 1 Tablet by mouth in the morning and 1 Tablet before bedtime. Last Visit: Visit date not found (in office), Visit date not found (telemedicine) Visit date not found If no future appointments scheduled, and last appointment is greater than a year ago, please schedule patient for a follow-up appointment Last date the medication was ordered: 09/28/23 Patient Phone Numbers Labs: Lab Results Component [...] PM EDT Office Visit Sleep Disorders Ctr [facility] [address] [place] [phone] Isabel Diallo, [address] [place] [address] 12/05/2023 1:00 PM EDT Imaging Radiology, [place] [address] [facility] [address] 12/20/2023 11:00 AM EDT Office Visit Orthopaedics [facility] [address] [place] [address] Kian Travis, DO [address] [place] [address] 12/26/2023 2:30 PM EDT Nurse Only Rheumatology [address] [place] [phone] [place], Nurse Rheum [address] [place] [phone] 01/06/2024 2:00 PM EST Office Visit Nephrology [address] [place] [address] Charlotte Cope PA-C [address] [place] [address] 01/23/2024 2:20 PM EST Office Visit Dermatology [address] [place] [address] Amber Orozco PA-C [address] [place] [address] [place] [address] 02/02/2024 2:30 PM EST Office Visit Hematology/Oncology [facility] 200 [facility] [place] [phone] Mirna Camp CRNP [address] [place] [address] 02/14/2024 1:30 PM EST Office Visit Cardiology, [facility] 132 [facility] [place] [address] Jane Ashley CRNP [address] [place] [address] 05/15/2024 1:00 PM EDT Office Visit Nephrology [address] [place] [address] Charlotte Cope PA-C [address] [place] [address] 06/06/2024 3:20 PM EDT Office Visit Family Medicine [address] [place] [phone] Cathy Fregoso MD [address] [place] [address] [place] [address] Health Maintenance Due Date Last Done Comments COVID-19 Vaccine ( season) 2022 DXA Scan 10/22/2023 10/21/2021, 09/29, 08/28/2018, Additional history exists CKD PHOS USE SMARTSET 31047 08/16/202407/29, 05/12/2023, 11/05/2022, Additional history exists Albumin/Creatinine Ratio 08/24/2024 024, 07/19/2022, 04/06/2021, Additional history exists Depression Monitoring 08/24/2024 08/25/2023 DIG LEVEL FOR MEDICATION MONITORING YEARLY 09/20/2024 09/21/2023, 06/22/2023, 04/29/2023, Additional history exists CKD HGB USE SMARTSET 88212 09/27/202409/27, 09/27/2023, 09/27/2023, Additional history exists DTaP,Tdap,and Td Vaccines (2 - Td or Tdap) 12/31/2029 01/01/2020 (Declined), 12/30/2009, 12/30/2009, Additional history exists Pneumococcal Vaccine: 65+ Years Completed 02/08/2017, 02/23/2006 VITAMIN D LEVEL ONCE IN A LIFETIME-USE SMARTSET# 31188 Completed 08/17/2023, 06/27/2023, 06/22/2023, Additional history exists [...] this encounter Medical Devices Implanted Type Area Envelope Sealer Operator Device Identifier Shelf Expiration Date Model / Serial / Lot Lead Novus Bipolar 58cm - [id number] - [id number] Implanted:Qty: 1 on 04/11/2017 by Elda Patterson DO at OR [facility] Left: Heart [employer] : [facility] 12/18/2018 5076-58 / [id number] / Description:RIGHT VENTRICLE LEAD Lead Novus Bipolar 52cm - [id number] - [id number] Implanted:Qty: 1 on 04/11/2017 by Elda Patterson DO at OR [facility] Left: Heart [employer] : [facility] 12/24/2018 5076-52 / [id number] / Description:RIGHT ATRIAL ROCKY D Pacer Advisa Dr Dorsey - [id number] - [id number] Implanted:Qty: 1 on 04/11/2017 by Elda Patterson DO at OR [facility] Left: Chest [employer] 08/25/2018 A2DR01 / [id number] / documented as of this encounter Advance Directives Documents on File Type Date Recorded Patient Networking Technician Expl anation POL 01/05/2021 [place] OR [facility] FOR LIFE-SUSTAINING [...] 9:35 AM 07/03/2008 5:40 PM Care Teams Diesel Scoop Operator Relationship Specialty Start Date End Date Cathy Fregoso MD [address] [place] [address] [place] [address] PCP - General Family Medicine 12/03/22 documented as of this encounter
--- OUTSIDE RECORDS SUMMARY | 2023-11-28 14:36 | External Medical Summary | Summary of Care ---
Author Name Unknown Organization [facility] Address [address] [place] [address] Phone [phone] Care Team Providers Care Social Worker Psychiatric Name Role Phone Cathy Wilburn MD Primary Care Provide r Encounter Details Date Type Department Care Team (Late st Contact Info) Description 09/29/2023 Population Health External Data Unspecified Department Allergies [...] 40 MG Oral Tablet (Lipitor)Indications :Atherosclerosis of [place] coronary artery of [place] heart without angina pectoris,Dyslipidemi a, goal LDL [...] lumbosacral intervertebral disc 02/04/2009 Coronary atherosclerosis of [place] coronary luis ry 02/24/2005 Senile osteoporosis 05/14/2003 [...] 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 LOC PRIM [id number] 02/14/200205/30 Other seborrheic keratosis 10/31/2001 0 06/06/2007 [...] Anticoagulation [facility], Mukesh Downey [address] [place] [address] [place] [address] [place] [address] 10/03/2023 6:00 AM EDT Anticoagulation [facility], Mukesh [address] [place] [address] [place] [address] 10/12/2023 3:00 PM EDT Office Visit Sleep Disorders Ctr [facility] [address] [place] [phone] Isabel Diallo, DO 132 [facility] [place] [address] 12/05/2023 1:00 PM EDT Imaging Radiology, [address] [place] [address] 12/20/2023 11:00 AM EDT Office Visit Orthopaedics [facility] 132 [facility] [place] [address] Kian Travis, DO 132 [facility] [place] [address] 12/26/2023 2:30 PM EDT Nurse Only Rheumatology [address] [place] [phone] [place], Nurse Rheum [address] [place] [phone] 01/06/2024 2:00 PM EST Office Visit Nephrology [address] [place] [address] ZeCharlotte coleman PA-C [address] [place] [address] 01/23/2024 2:20 PM EST Office Visit Dermatology [address] [place] [address] Amber Orozco PA-C [address] [place] [address] [place] [address] 02/02/2024 2:30 PM EST Office Visit Hematology/Oncology [facility] [address] [place] [phone] Mirna Camp CRNP [address] [place] [address] 02/14/2024 1:30 PM EST Office Visit Cardiology, [facility] [address] [place] [place] [address] Jane Ashley CRNP [address] [place] [address] 05/15/2024 1:00 PM EDT Office Visit Nephrology [address] [place] [address] Charlotte Cope PA-C [address] [place] [address] 06/06/2024 3:20 PM EDT Office Visit Family Medicine [address] [place] [phone] Cathy Wilburn MD [address] [place] [address] [place] [address] Health Maintenance Due Date Last Done Comments COVID-19 Vaccine ( season) 2022 DXA Scan 10/22/2023 10/21/2021, 09/29, 08/28/2018, Additional history exists CKD PHOS USE SMARTSET 16140 08/16/202407/29, 05/12/2023, 11/05/2022, Additional history exists Albumin/Creatinine Ratio 08/24/2024 024, 07/19/2022, 04/06/2021, Additional history exists Depression Monitoring 08/24/2024 08/25/2023 DIG LEVEL FOR MEDICATION MONITORING YEARLY 09/20/2024 09/21/2023, 06/22/2023, 04/29/2023, Additional history exists CKD HGB USE SMARTSET 05135 09/27/202409/27, 09/27/2023, 09/27/2023, Additional history exists DTaP,Tdap,and Td Vaccines (2 - Td or Tdap) 12/31/2029 01/01/2020 (Declined), 12/30/2009, 12/30/2009, Additional history exists Pneumococcal Vaccine: 65+ Years Completed 02/08/2017, 02/23/2006 VITAMIN D LEVEL ONCE IN A LIFETIME-USE SMARTSET# 45659 Completed 08/17/2023, 06/27/2023, 06/22/2023, Additional history exists [...] this encounter Medical Devices Implanted Type Area Occupational Therapy Department Chair Device Identifier Shelf Expiration Date Model / Serial / Lot Lead Novus Bipolar 58cm - [id number] - [id number] Implanted:Qty: 1 on 04/11/2017 by Elda Patterson DO at OR [facility] Left: Heart [employer] : [facility] 12/18/2018 5076-58 / [id number] / Description:RIGHT VENTRICLE LEAD Lead Novus Bipolar 52cm - [id number] - [id number] Implanted:Qty: 1 on 04/11/2017 by Elda Patterson DO at OR [facility] Left: Heart [employer] : [facility] 12/24/2018 5076-52 / [id number] / Description:RIGHT ATRIAL ROCKY D Pacer Advisa Dr Dorsey - [id number] - [id number] Implanted:Qty: 1 on 04/11/2017 by Elda Patterson DO at OR [facility] Left: Chest [employer] 08/25/2018 A2DR01 / [id number] / documented as of this encounter Advance Directives Documents on File Type Date Recorded Patient Director Of Infection Prevention Expl anation POL 01/05/2021 [place] OR [facility] FOR LIFE-SUSTAINING [...] 9:35 AM 07/03/2008 5:40 PM Care Teams Social Worker Psychiatric Relationship Specialty Start Date End Date Cathy Wilburn MD [address] [place] [address] [place] [address] PCP - General Family Medicine 12/03/22 documented as of this encounter
--- OUTSIDE RECORDS SUMMARY | 2023-11-28 14:36 | External Medical Summary | Summary of Care ---
Author Name Unknown Organization [facility] Address [address] [place] [address] Phone [phone] Care Team Providers Care Mainframe Programmer Name Role Phone Cathy Wilburn MD Primary Care Provide r Reason for Visit * Reason Onset Date Comments Med Request 09/30/2023 Encounter Details Date Type Department Care Team (Late st Contact Info) Description 09/30/[address] [phone] Cathy Wilburn MD [address] [place] [address] [place] [address] Med Request Allergies Active Allergy Reactions [...] 40 MG Oral Tablet (Lipitor)Indications :Atherosclerosis of [place] coronary artery of [place] heart without angina pectoris,Dyslipidemi a, goal LDL [...] lumbosacral intervertebral disc 02/04/2009 Coronary atherosclerosis of [place] coronary luis ry 02/24/2005 Senile osteoporosis 05/14/2003 [...] 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 LOC PRIM [id number] 02/14/200205/30 Other seborrheic keratosis 10/31/2001 0 06/06/2007 [...] encounter Miscellaneous Notes * Telephone Encounter - Kiersten Harmon CPhT - 09/30/2023 2:27 PM EDT Pharmacy calling requesting the following medication below that is listed as "Historical". The following information was provided: Medication Name: Metoprolol Succinate Strength: ER 100mg Directions: Take 1 Tablet by mouth in the morning and 1 Tablet before bedtime. Preferred Quantity: 90 day supply Previous Prescriber: N/A Preferred Pharmacy: [facility], [address] [place] Please review and approve if appropriate. Thank you, Kiersten Harmon CPhT Want Ad Receiver II [facility] ([facility]) 09/30/2023,2:27 PM documented in this encounter Plan of Treatment Upcoming Encounters Date Type Department Care Team (Late st Contact Info) Description 10/12/2023 3:00 PM EDT Office Visit Sleep Disorders Ctr [facility] [address] [place] [phone] Isabel Diallo, [address] [place] [address] 12/05/2023 1:00 PM EDT Imaging Radiology, [address] [place] [address] 12/20/2023 11:00 AM EDT Office Visit Orthopaedics [facility] [address] [place] [address] Kian Travis, DO [address] [place] [address] 12/26/2023 2:30 PM EDT Nurse Only Rheumatology [address] [place] [phone] [place], Nurse Rheum [address] [place] [phone] 01/06/2024 2:00 PM EST Office Visit Nephrology [address] [place] [address] Charlotte Cope PA-C [address] [place] [address] 01/23/2024 2:20 PM EST Office Visit Dermatology [address] [place] [address] Amber Orozco PA-C [address] [place] [address] [place] [address] 02/02/2024 2:30 PM EST Office Visit Hematology/Oncology [facility] 200 [facility] [place] [phone] Mirna Camp CRNP 400 [place] [address] 02/14/2024 1:30 PM EST Office Visit Cardiology, [facility] [address] [facility] [place] [address] Jane Ashley CRNP [address] [facility] [place] [address] 05/15/2024 1:00 PM EDT Office Visit Nephrology [address] [place] [address] Charlotte Cope PA-C [address] [place] [address] 06/06/2024 3:20 PM EDT Office Visit Family Medicine [address] [place] [phone] Cathy Wilburn MD [address] [place] [address] [place] [address] Health Maintenance Due Date Last Done Comments COVID-19 Vaccine ( season) 2022 DXA Scan 10/22/2023 10/21/2021, 09/29, 08/28/2018, Additional history exists CKD PHOS USE SMARTSET 69436 08/16/202407/29, 05/12/2023, 11/05/2022, Additional history exists Albumin/Creatinine Ratio 08/24/2024 024, 07/19/2022, 04/06/2021, Additional history exists Depression Monitoring 08/24/2024 08/25/2023 DIG LEVEL FOR MEDICATION MONITORING YEARLY 09/20/2024 09/21/2023, 06/22/2023, 04/29/2023, Additional history exists CKD HGB USE SMARTSET 14037 09/27/202409/27, 09/27/2023, 09/27/2023, Additional history exists DTaP,Tdap,and Td Vaccines (2 - Td or Tdap) 12/31/2029 01/01/2020 (Declined), 12/30/2009, 12/30/2009, Additional history exists Pneumococcal Vaccine: 65+ Years Completed 02/08/2017, 02/23/2006 VITAMIN D LEVEL ONCE IN A LIFETIME-USE SMARTSET# 22205 Completed 08/17/2023, 06/27/2023, 06/22/2023, Additional history exists [...] this encounter Medical Devices Implanted Type Area Farmer General Device Identifier Shelf Expiration Date Model / Serial / Lot Lead Novus Bipolar 58cm - [id number] - [id number] Implanted:Qty: 1 on 04/11/2017 by Elda Patterson DO at OR [facility] Left: Heart [employer] : [employer] 12/18/2018 5076-58 / [id number] / Description:RIGHT VENTRICLE LEAD Lead Novus Bipolar 52cm - [id number] - [id number] Implanted:Qty: 1 on 04/11/2017 by Elda Patterson DO at OR [facility] Left: Heart [employer] : [employer] 12/24/2018 5076-52 / [id number] / Description:RIGHT ATRIAL ROCKY D Pacer Advisa Dr Dorsey - [id number] - [id number] Implanted:Qty: 1 on 04/11/2017 by Elda Patterson DO at OR [facility] Left: Chest [employer] 08/25/2018 A2DR01 / [id number] / documented as of this encounter Advance Directives Documents on File Type Date Recorded Patient Aircraft Communicator Expl anation POLST 01/05/2021 [place] OR [facility] FOR LIFE-SUSTAINING TREATMENT * Full Code (Latest [...] 9:35 AM 07/03/2008 5:40 PM Care Teams Mainframe Programmer Relationship Specialty Start Date End Date Cathy Wilburn MD [address] [place] [address] [place] [address] PCP - General Family Medicine 12/03/22 documented as of this encounter
--- OUTSIDE RECORDS SUMMARY | 2023-11-28 14:37 | External Medical Summary ---
Author Name Unknown Address Unknown Organization K01:[facility] - [address] [facility] [address] Laboratory Report Ordering Provider Test Date Status SERGE TRENT 09/28/2023 13:21:00 Final Observation Date Value Abnormality Reference (Units ) Status BUN 09/28/2023 13:21:00 44 Above high normal 6-20 (mg/dL) Final Creatinine 09/28/2023 13:21:00 1.7 Above high normal 0.5-1.0 (mg/dL) Final Glomerular filtration rate/1.73 sq M.predicted [Volume Rate/Area] in Serum, Plasma or Blood by Creatinine-based formula (CKD-EPI) 09/28/2023 13:21:00 29 Below low normal >=60 (mL/min) Final eGFR is calculated based on the CKD-EPI 2020 equation. Sodium 09/28/2023 13:21:00 130 Below low normal 135 -146 (mmol/L) Final Potassium 09/28/2023 13:21:00 4.5 3.5-5.1 (m mol/L) Final Cl 09/28/2023 13:21:00 96 Below low normal 98- 107 (mmol/L) Final CO2 09/28/2023 13:21:00 23 22-32 (mmo l/L) Final Anion gap 09/28/2023 13:21:00 11 7-15 (mmol /L) Final Glucose 09/28/2023 13:21:00 157 Above high normal 70 -120 (mg/dL) Final Calcium 09/28/2023 13:21:00 10.2 8.4-10.2 ( mg/dL) Final Performing Location [facility] [place] - [address] [place] [address]
--- OUTSIDE RECORDS SUMMARY | 2023-11-28 14:37 | External Medical Summary | Summary of Care ---
Author Name Unknown Organization [facility] Address [address] [place] [address] Phone [phone] Care Team Providers Care Training Analyst Name Role Phone Cathy Wilburn MD Primary Care Provide r Reason for Visit * Reason Onset Date Comments Test Results 09/27/2023 Unexpected or In determinate Result Encounter Details Date Type Department Care Team (Late st Contact Info) Description 09/27/2023 Telephone Laboratory, [place] [address] [place] [address] Jesus Latif, [address] [place] [address] Test Results (Unexpected or Indeterminate ... Allergies Active Allergy Reactions Criticality Noted [...] as of this encounter (statuses as of 09/27/2023) Medications Medication Sig Dispensed Refills Start Date End Date Status Acetaminophen 325 MG Oral Tablet (Tylenol) Take by mouth 2 Tablets every 4 hours as needed for Fever >38C(100.5F), Pain, Mild, Pain, Moderate or Pain, Severe. 100 Tablet 1 2021 Suspended Additional Information Atorvastatin Calcium 40 MG Oral Tablet (Lipitor)Indicatio ns:Atherosclerosis of [place] coronary artery of [place] heart without angina pectoris,Dyslipide martin, goal LDL below 70 Take 1 Tablet by mouth at bedtime. 90 Tablet 3 07/06/2023 Suspended Additional Information Cholecalciferol 25 MCG (1000 UT) Oral CapsuleIndications :Senile osteoporosis Take 2 Capsules by mouth in the morning. 180 Capsule 1 07/06/2023 Suspended Additional Information DULoxetine HCl 30 MG Oral Capsule Delayed Release Particles (Cymbalta)Indicati ons:Moderate episode of recurrent major depressive disorder (HCC) Take 1 Capsule by mouth in the morning. In the morning.. 90 Capsule 3 07/06/2023 Suspended Additional Information Omeprazole 20 MG Oral Capsule Delayed Release (PriLOSEC)Indicati ons:Gastro-esophag eal reflux disease without esophagitis Take 1 Capsule by mouth in the morning. In the morning.. 90 Capsule 1 07/06/2023 Suspended Additional Information Vitamin B-12 1000 MCG Oral Tablet (Cyanocobalamin)In dications:B12 deficiency TAKE 1 TABLET BY MOUTH ON TUESDAY, TUESDAY AND TUESDAY 30 Tablet 11 07/06/2023 Suspended Additional Information LORazepam 0.5 MG Oral Tablet (Ativan)Indication s:Anxiety Take 0.5 Tablets by mouth daily as needed for Anxiety. 15 Tablet 08/29/2023 Suspended Additional Information FeroSul 325 (65 Fe) MG Oral Tablet Take 1 Tablet by mouth every other day. 09/20/2023 Suspended Aspirin 81 MG Oral Tablet Delayed Release Take 1 Tablet by mouth in the morning. Suspended Bladder Control Pads Ex Absorb Use as directed. Susp ended Prolia 60 MG/ML Subcutaneous Solution Prefilled Syringe (Denosumab) Inject 60 mg under the skin once. Suspended Digoxin 125 MCG Oral Tablet (Lanoxin) Take 1 Tablet by mouth once a day on Tuesday, Tuesday, and Tuesday only. Suspended Latanoprost 0.005 % Ophthalmic Solution (Xalatan) 1 Drop at bedtime. Suspended Warfarin Sodium 2 MG Oral Tablet (Coumadin) Take by mouth. Suspended Magnesium Chloride 64 MG Oral Tablet Delayed Release (Mag-64) Take 1 Tablet by mouth in the morning. Suspended Metoprolol Succinate ER 100 MG Oral Tablet Extended Release 24 Hour (toPROL XL) Take 1 Tablet by mouth in the morning and 1 Tablet before bedtime. Suspended oxygen IN GAS Use 2 L/min(Oxygen) as directed at bedtime. Suspended Potassium Chloride ER 10 MEQ Oral Tablet Extended Release Take 1 Tablet by mouth in the morning. Suspended Sennosides-Docusat e Sodium 8.6-50 MG Oral Tablet (Senexon-S) Take 2 Tablets by mouth in the morning. Suspended Torsemide 10 MG Oral Tablet (Demadex) Take 1 Tablet by mouth in the morning. Suspended Torsemide 5 MG Oral Tablet (Demadex) Take 1 Tablet by mouth in the morning. Suspended documented as of this encounter (statuses as of 09/27/2023) Active Problems Problem Noted Date Diagnosed Date History of hemicolectomy 09/21/2023 Retroperitoneal bleed 09/21/2023 Glaucoma 09/20/2023 DVT, lower extremity, distal, [...] ial veins of left lower extremity 01/01/2020 Acute blood loss anemia 10/22/2019 History of falling 09/07/2019 Peripheral edema 09/07/2019 [...] Overview: basal cell carcinoma (upper central forehead) Hypotension due to hypovolemia 01/15/2016 Chronic diastolic heart failure 03/06/2015 Dyslipidemia, goal [...] as of this encounter (statuses as of 09/27/2023) Resolved Problems Problem Noted Date Diagnosed Date [...] CKD protocol Thoracic aorta atherosclerosis 11/06/2019 03/17/2023 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 05/25/201801/09 Overview: Per CKD protocol MEDICATION USE AGREEMENT 02/08/201704/2019 Atrial fibrillation with RVR 07/30/2016 07/15/2017 Essential hypertension with goal blood pressure less [...] 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 LOC PRIM [id number] 02/14/200205/30 Other seborrheic keratosis 10/31/2001 0 06/06/2007 [...] as of this encounter (statuses as of 09/27/2023) Immunizations Name Administration Dates Next Due Pneumococcal [...] Miscellaneous Notes * Telephone Encounter - Patricia Disla OSA - 09/27/2023 9:23 PM EDT Nadia- The radiologist discovered an unexpected or indeterminate finding on Miranad Coe ([id number]) and asks that you review the following report. Study Type: CT ABD/PELVIS W IV CONTRAST - WO ORAL CONTRAST Date of Study: 09/27/2023 IMPRESSION 1. Interval decrease in size of the still large left retroperitoneal hematoma now measuring 11.8 x 5.6 cm in greatest axial dimension, previously 12.9 x 7.9 cm on 09/20/2023. No internal gas to suggest superimposed infection. 2. Similar cardiomegaly. 3. New trace left pleural effusion with mild associated left basilar atelectasis. 4. A 3.3 x 4.3 cm left upper quadrant mass abutting the stomach is not significantly changed datingback to 01/14/2022 and potentially represents an indolent neoplasm. 5. Moderate rectal stool ball. Adjacent presacral stranding favored to be secondary to the large retroperitoneal hemorrhage and less likely stercoral colitis. Correlate for local symptoms. Follow-up to resolution. 6. Additional findings are described above. Please respond to this encounter to acknowledge receipt of this message and take responsibility to ensure this report is reviewed. Thank you, MARTI Lewis Client Service [facility] documented in this encounter Plan of Treatment Upcoming Encounters Date Type Department Care Team (Late st Contact Info) Description 09/28/2023 7:15 AM EDT Laboratory Lab Mobile Phlebotomy [facility] [address] [facility] [place] [address] [facility], Gml Mobile Home Draw [address] [facility] [place] [address] 09/29/2023 6:00 AM EDT Anticoagulation Centralized Clinical Pharmacy Services, [facility] [address] [place] [address] [place] [address] [place] [address] 09/30/2023 6:45 AM EDT Anticoagulation Centralized Clinical Pharmacy Services, [address] [place] [address] [place] [address] 10/12/2023 3:00 PM EDT Office Visit Sleep Disorders Ctr [facility] [address] [facility] [place] [phone] Isabel Diallo, DO [address] [place] [address] 12/05/2023 1:00 PM EDT Imaging Radiology, [address] [place] [address] 12/20/2023 11:00 AM EDT Office Visit Orthopaedics [facility] [address] [facility] [place] [address] Kian Travis, DO [address] [place] [address] 12/26/2023 2:30 PM EDT Nurse Only Rheumatology [address] [place] [phone] [place], Nurse Rheum [address] [place] [phone] 01/06/2024 2:00 PM EST Office Visit Nephrology [address] [place] [address] Charlotte Cope PA-C [address] [place] [address] [place] [address] 01/23/2024 2:20 PM EST Office Visit Dermatology [address] [place] [address] Amber Orozco PA-C [address] [place] [address] [place] [address] 02/02/2024 2:30 PM EST Office Visit Hematology/Oncology [facility] [place] [address] [facility] [place] [phone] Mirna Camp CRNP [address] [place] [address] 02/14/2024 1:30 PM EST Office Visit Cardiology, [facility] [address] [place] [address] Jane Ashley CRNP [address] [place] [address] 05/15/2024 1:00 PM EDT Office Visit Nephrology [address] [place] [address] Charlotte Cope PA-C [address] [place] [address] 06/06/2024 3:20 PM EDT Office Visit Family Medicine [address] [place] [phone] Cathy Wilburn MD [address] [place] [address] [place] [address] Health Maintenance Due Date Last Done Comments COVID-19 Vaccine ( season) 2022 DXA Scan 10/22/2023 10/21/2021, 09/29, 08/28/2018, Additional history exists CKD PHOS USE SMARTSET 86561 08/16/202407/29, 05/12/2023, 11/05/2022, Additional history exists Albumin/Creatinine Ratio 08/24/2024 024, 07/19/2022, 04/06/2021, Additional history exists Depression Monitoring 08/24/2024 08/25/2023 DIG LEVEL FOR MEDICATION MONITORING YEARLY 09/20/2024 09/21/2023, 06/22/2023, 04/29/2023, Additional history exists CKD HGB USE SMARTSET 32112 09/26/202409/264, 09/27/2023, 09/26/2023, Additional history exists DTaP,Tdap,and Td Vaccines (2 - Td or Tdap) 12/31/2029 01/01/2020 (Declined), 12/30/2009, 12/30/2009, Additional history exists Pneumococcal Vaccine: 65+ Years Completed 02/08/2017, 02/23/2006 VITAMIN D LEVEL ONCE IN A LIFETIME-USE SMARTSET# 33578 Completed 08/17/2023, 06/27/2023, 06/22/2023, Additional history exists [...] encounter Medical Devices Implanted Type Area Supervisor Color Making Device Identifier Shelf Expiration Date Model / Serial / Lot Lead Novus Bipolar 58cm - [id number] - [id number] Implanted:Qty: 1 on 04/11/2017 by Elda Patterson DO at OR [facility] Left: Heart [employer] : [facility] 12/18/2018 5076-58 / [id number] / Description:RIGHT VENTRICLE LEAD Lead Novus Bipolar 52cm - [id number] - [id number] Implanted:Qty: 1 on 04/11/2017 by Elda Patterson DO at OR [facility] Left: Heart [employer] : [facility] 12/24/2018 5076-52 / [id number] / Description:RIGHT ATRIAL ROCKY D Pacer Advisa Dr Dorsey - [id number] - [id number] Implanted:Qty: 1 on 04/11/2017 by Elda Patterson DO at OR [facility] Left: Chest [employer] 08/25/2018 A2DR01 / [id number] / documented as of this encounter Advance Directives Documents on File Type Date Recorded 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 Question Answer Comments Discussion of Advance Direct nisreen occurred with: Not Discussed due to patient's condition * Full Code Date Activated Date Inactivated Comments 07/02/2008 9:35 AM 07/03/2008 5:40 PM Care Teams Training Analyst Relationship Specialty Start Date End Date Cathy Wilburn MD [address] [place] [address] [place] [phone] PCP - General Family Medicine 12/03/22 documented as of this encounter
--- OUTSIDE RECORDS SUMMARY | 2023-11-28 14:37 | External Medical Summary ---
Author Name Unknown Address Unknown Organization K01[place] [facility] [place] [address] [place] [address] Laboratory Report Ordering Provider Test Date Status VENKATESH LUNDBERG 09/27/2023 19:19:00 Final Observation Date Value Abnormality Reference (Units ) Status WBC, Total 09/27/2023 19:19:00 10.86 Above high normal 4.00-10.80 (K/uL) Final RBC 09/27/2023 19:19:00 3.01 3.85-5.15 (M/uL) Final Hemoglobin 09/27/2023 19:19:00 9.5 Below low normal 12.0-15.3 (g/dL) Final HCT 09/27/2023 19:19:00 29.9 Below low normal 36.0-45.2 (%) Final MCV 09/27/2023 19:19:00 99.3 81.5-97.5 (fL) Final MCH 09/27/2023 19:19:00 31.6 27.0-34.0 (pg) Final MCHC 09/27/2023 19:19:00 31.8 32.0-36.0 (g/dL) Final RDW 09/27/2023 19:19:00 13.9 11.5-15.5 (%) Final Platelets 09/27/2023 19:19:00 248 140-400 (K/uL) Final MPV 09/27/2023 19:19:00 9.1 6.6-11.1 (fL) Final Nucleated erythrocytes/100 leukocytes [Ratio] in Blood by Automated count 09/27/2023 19:19:00 0 <=0 (/100 WBCs) Final Performing Location [facility] [place] [address] [place] [address]
--- OUTSIDE RECORDS SUMMARY | 2023-11-28 14:37 | External Medical Summary ---
Author Name Unknown Address Unknown Organization K01[place] [place] [address] [place] [address] Laboratory Report Ordering Provider Test Date Status VENKATESH LUNDBERG 09/28/2023 07:02:00 Final Observation Date Value Abnormality Reference (Units ) Status WBC, Total 09/28/2023 07:02:00 11.71 Above high normal 4.00-10.80 (K/uL) Final RBC 09/28/2023 07:02:00 2.92 3.85-5.15 (M/uL) Final Hemoglobin 09/28/2023 07:02:00 9.0 Below low normal 12.0-15.3 (g/dL) Final HCT 09/28/2023 07:02:00 28.4 Below low normal 36.0-45.2 (%) Final MCV 09/28/2023 07:02:00 97.3 81.5-97.5 (fL) Final MCH 09/28/2023 07:02:00 30.8 27.0-34.0 (pg) Final MCHC 09/28/2023 07:02:00 31.7 32.0-36.0 (g/dL) Final RDW 09/28/2023 07:02:00 13.6 11.5-15.5 (%) Final Platelets 09/28/2023 07:02:00 257 140-400 (K/uL) Final MPV 09/28/2023 07:02:00 9.0 6.6-11.1 (fL) Final Nucleated erythrocytes/100 leukocytes [Ratio] in Blood by Automated count 09/28/2023 07:02:00 0 <=0 (/100 WBCs) Final Performing Location LABORATORY C - [address] [place] [address]
--- OUTSIDE RECORDS SUMMARY | 2023-11-28 14:37 | External Medical Summary | Summary of Care ---
Author Name Unknown Organization [facility] Address [address] [place] [address] Phone [phone] Care Team Providers Care Creative Services Manager Name Role Phone Maxwell Fregoso MD Primary Care Provide r Reason for Visit * Reason Onset Date Comments Hospital Follow-Up 09/28/2023 [facility] 1 wk pcp f/u needed. No appt avail. Please assist with patient scheduling. Thank you. Encounter Details Date Type Department Care Team (Late st Contact Info) Description 09/28/2023 Telephone Family Medicine [address] [place] [phone] Maxwell Fregoso MD [address] [place] [address] [place] [address] Hospital Follow-Up ([facility] 09/28/23 1 wk p... Allergies Active Allergy Reactions Criticality Noted Date [...] as of this encounter (statuses as of 09/28/2023) Medications Medication Sig Dispensed Refills Start Date End Date Status Acetaminophen 325 MG Oral Tablet (Tylenol) Take by mouth 2 Tablets every 4 hours as needed for Fever >38C(100.5F), Pain, Mild, Pain, Moderate or Pain, Severe. 100 Tablet 1 2021 Suspended Additional Information Atorvastatin Calcium 40 MG Oral Tablet (Lipitor)Indicatio ns:Atherosclerosis of [place] coronary artery of [place] heart without angina pectoris,Dyslipide martin, goal LDL [...] as of this encounter (statuses as of 09/28/2023) Active Problems Problem Noted Date Diagnosed Date [...] disc 02/04/2009 Coronary atherosclerosis of [place] coronary luis ry 02/24/2005 Senile osteoporosis 05/14/2003 Carpal tunnel syndrome 04/23/2003 Moderate mitral regurgitation GENERAL OSTEOARTHROSIS Gastroesophageal reflux disease without esophagi tis Vitamin D deficiency Hyperparathyroidism, primary documented as of this encounter (statuses as of 09/28/2023) Resolved Problems Problem Noted Date Diagnosed Date [...] 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 LOC PRIM [id number] 02/14/200205/30 Other seborrheic keratosis 10/31/2001 0 06/06/2007 [...] as of this encounter (statuses as of 09/28/2023) Immunizations Name Administration Dates Next Due Pneumococcal [...] No 09/07/2023 Does the household have a [facility] source of income? (Household - for [...] encounter Miscellaneous Notes * Telephone Encounter - Kiley Molina OSA - 09/28/2023 12:49 PM EDT [facility] HD 09/28/23 1 wk pcp f/u needed. No appt avail. Please assist with patient scheduling. Thank you. Beth Bright 09/21/2023 3:09 AM ED to Hosp-Admission Description: 88 year old female Department: AP5 IP [facility] Message Patient Name: BETH BRIGHT([id number]) Sex: Female : 1935 PCP: MAXWELL FREGOSO Center: [facility] [place] Level of Service:598[address] [place] EMERGENCY DEPT VISIT HIGH SEVERITY&THREAT FUNCJ Types of orders made on 09/28/2023: IP Post Discharge , Lab, Medications Order Date: Ordering User:JESUS VALENTINE [[id number]] Attending Provider:Evelyn Hernandez MD [[id number]] Authorizing Provider: Jesus Valentine DO [[id number]] Department:AP5 [facility][[id number]] Order Specific Information Order: RETURN APPT [CUSTOM: [id number]] Order #: [id number]: 1 Priority: Routine Class: Nursing Unit Appt Needed Within: (Specify # of Days, Weeks, Months) -> 1 Wk Provider -> MAXWELL BRAMBILA Released on: 09/28/2023 12:34 PM Priority: Routine Class: Nursing Unit Appt Needed Within: (Specify # of Days, Weeks, Months) -> 1 Wk Provider -> MAXWELL FREGOSO Released on: 09/28/2023 12:34 PM documented in this encounter Plan of Treatment Upcoming Encounters Date Type Department Care Team (Late st Contact Info) Description 09/29/2023 6:00 AM EDT Anticoagulation Centralized Clinical Pharmacy Services, Mukesh Downey [address] [place] [address] [place] [address] [place] [address] 09/30/2023 6:45 AM EDT Anticoagulation Centralized Clinical Pharmacy Services, [address] [place] [address] [place] [address] 10/12/2023 3:00 PM EDT Office Visit Sleep Disorders Ctr [facility] [address] [place] [phone] Isabel Diallo, [address] [place] [address] 12/05/2023 1:00 PM EDT Imaging Radiology, [address] [place] [address] 12/20/2023 11:00 AM EDT Office Visit Orthopaedics [facility] [address] [place] [address] Kian Travis, DO [address] [place] [address] 12/26/2023 2:30 PM EDT Nurse Only Rheumatology [address] [place] [phone] [place], Nurse Rheum [address] [place] [phone] 01/06/2024 2:00 PM EST Office Visit Nephrology [address] [place] [address] Charlotte Cope PA-C [address] [place] [address] 01/23/2024 2:20 PM EST Office Visit Dermatology [address] [place] [address] Amber Orozco PA-C [address] [place] [address] [place] [address] 02/02/2024 2:30 PM EST Office Visit Hematology/Oncology [facility] [address] [facility] [phone] Mirna Camp CRNP [address] [place] [address] 02/14/2024 1:30 PM EST Office Visit Cardiology, [facility] [address] [facility] [place] [address] Jane Ashley CRNP [address] [place] [phone] 05/15/2024 1:00 PM EDT Office Visit Nephrology [address] [place] [address] Charlotte Cope PA-C [address] [facility] [place] [address] 06/06/2024 3:20 PM EDT Office Visit Family Medicine [address] [place] [phone] Maxwell Fregoso MD [address] [place] [address] [place] [address] Health Maintenance Due Date Last Done Comments COVID-19 Vaccine (2022- season) 2022 DXA Scan 10/22/2023 10/21/2021, 09/29, 08/28/2018, Additional history exists CKD PHOS USE SMARTSET 47835 08/16/202407/29, 05/12/2023, 11/05/2022, Additional history exists Albumin/Creatinine Ratio 08/24/2024 024, 07/19/2022, 04/06/2021, Additional history exists Depression Monitoring 08/24/2024 08/25/2023 DIG LEVEL FOR MEDICATION MONITORING YEARLY 09/20/2024 09/21/2023, 06/22/2023, 04/29/2023, Additional history exists CKD HGB USE SMARTSET 15448 09/27/202409/27, 09/27/2023, 09/27/2023, Additional history exists DTaP,Tdap,and Td Vaccines (2 - Td or Tdap) 12/31/2029 01/01/2020 (Declined), 12/30/2009, 12/30/2009, Additional history exists Pneumococcal Vaccine: 65+ Years Completed 02/08/2017, 02/23/2006 VITAMIN D LEVEL ONCE IN A LIFETIME-USE SMARTSET# 27650 Completed 08/17/2023, 06/27/2023, 06/22/2023, Additional history exists [...] this encounter Medical Devices Implanted Type Area Sales Appointment Coordinator Device Identifier Shelf Expiration Date Model / Serial / Lot Lead Novus Bipolar 58cm - [id number] - [id number] Implanted:Qty: 1 on 04/11/2017 by Elda Patterson DO at OR [facility] Left: Heart [employer] : YONATHAN 12/18/2018 5076-58 / [id number] / Description:RIGHT VENTRICLE LEAD Lead Novus Bipolar 52cm - [id number] - [id number] Implanted:Qty: 1 on 04/11/2017 by Elda Patterson DO at OR [facility] Left: Heart [employer] : YONATHAN 12/24/2018 5076-52 / [id number] / Description:RIGHT ATRIAL ROCKY D Pacer Advisa Dr Dorsey - [id number] - [id number] Implanted:Qty: 1 on 04/11/2017 by Elda Patterson DO at OR [facility] Left: Chest [employer] 08/25/2018 A2DR01 / [id number] / documented as of this encounter Advance Directives Documents on File Type Date Recorded 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
--- OUTSIDE RECORDS SUMMARY | 2023-11-28 14:37 | External Medical Summary ---
Author Name Unknown Address Unknown Organization K01:LAB[facility]ATORY [facility] [place] - [address] [place] [address] Laboratory Report Ordering Provider Test Date Status TIBURCIO BRUNO 09/28/2023 07:02:00 Final Observation Date Value Abnormality Reference (Units ) Status BUN 09/28/2023 07:02:00 39 Above high normal 6-20 (mg/dL) Final Creatinine 09/28/2023 07:02:00 1.7 Above high normal 0.5-1.0 (mg/dL) Final Glomerular filtration rate/1.73 sq M.predicted [Volume Rate/Area] in Serum, Plasma or Blood by Creatinine-based formula (CKD-EPI) 09/28/2023 07:02:00 28 Below low normal >=60 (mL/min) Final eGFR is calculated based on the CKD-EPI 2020 equation. Sodium 09/28/2023 07:02:00 128 Below low normal 135 -146 (mmol/L) Final Potassium 09/28/2023 07:02:00 4.0 3.5-5.1 (m mol/L) Final Cl 09/28/2023 07:02:00 94 Below low normal 98- 107 (mmol/L) Final CO2 09/28/2023 07:02:00 26 22-32 (mmo l/L) Final Anion gap 09/28/2023 07:02:00 8 7-15 (mmol /L) Final Glucose 09/28/2023 07:02:00 146 Above high normal 70 -120 (mg/dL) Final Calcium 09/28/2023 07:02:00 10.5 Above high normal 8. 4-10.2 (mg/dL) Final Performing Location LABORATORY [facility] [place] [place] - [address] [place] [address]
--- OUTSIDE RECORDS SUMMARY | 2023-11-28 14:37 | External Medical Summary | Summary of Care ---
Author Name Unknown Organization [facility] Address [address] [place] [address] Phone [phone] Care Team Providers Care Head Of Partner Development Name Role Phone Cathy Fregoso MD Primary Care Provide r Reason for Visit * Reason Comments Pain * Auth/Cert Specialty Diagnoses / Procedures Referred By Renzo kidd Referred To Contact Diagnoses Retroperitoneal hematoma retroperitoneal hematoma w/ active bleeding, on coumadin Kian Johnson DO [address] [place], [place] Emergency Medicine [facility] [address], [place] Referral ID Status Reason Start Date Expiration Date Visits Re quested Visits Authorized [id number] Encounter Details Date Type Department Care Team (Latest Contact Info) Description 09/21/2023 3:09 AM EDT - 09/28/2023 7:10 PM EDT Hospital Encounter [id number] [address], [place] [phone] Evelyn Hernandez MD [address], [place] Kian Johnson DO [address] Betito Hadley MD [address] [place] [address] Jason Oliva MD [address] [place] [address] Various: CDIQDC,EKG Discharge Disposition: Home with Services Allergies Active Allergy Reactions Criticality Noted Date [...] MG Oral Tablet (Lipitor)Indicat ions:Atheroscler osis of levelock coronary artery of level[place] heart without angina pectoris,Dyslipi demia, goal LDL below 70 Take 1 Tablet by mouth at bedtime. 90 Tablet 3 4 Active Cholecalciferol 25 MCG (1000 UT) Oral CapsuleIndicatio ns:Senile osteoporosis Take 2 Capsules by mouth in the morning. 180 Capsule 1 4 Active DULoxetine HCl 30 MG Oral Capsule Delayed Release Particles (Cymbalta)Indica tions:Moderate episode of recurrent major depressive disorder (HCC) Take 1 Capsule by mouth in the morning. In the morning.. 90 Capsule 3 4 Active Omeprazole 20 MG Oral Capsule Delayed Release (PriLOSEC)Indica tions:Gastro-eso phageal reflux disease without esophagitis Take 1 Capsule by mouth in the morning. In the morning.. 90 Capsule 1 4 Active Vitamin B-12 1000 MCG Oral Tablet (Cyanocobalamin) Indications:B12 deficiency TAKE 1 TABLET BY MOUTH ON TUESDAY, TUESDAY AND TUESDAY 30 Tablet 11 4 Active LORazepam 0.5 MG Oral Tablet (Ativan)Indicati ons:Anxiety Take 0.5 Tablets by mouth daily as [...] Tablet by mouth in the morning. Active Sennosides-Docus ate Sodium 8.6-50 MG Oral Tablet (Senexon-S) Take [...] 1 Tablet before bedtime. 60 Tablet 2 4 Active denosumab (PROLIA) 60 MG/ML injection Inject 60 mg under the skin once. 1 Syringe 7 09/21/19 24 Discontinued oxygen GAS Use 2 L/min(Oxygen) as directed at bedtime. 09/21/19 24 Discontinued Bladder Control Pads Ex AbsorbIndication s:Mixed stress and urge urinary incontinence Daily use of urinary incontinence 72 Each 11 4 09/21/19 24 Discontinued Aspirin 81 MG Oral Tablet Delayed Release (Aspirin Low Dose) TAKE ONE TABLET IN THE MORNING 90 Tablet 3 4 09/21/19 24 Discontinued Diclofenac Sodium 1 % External Gel (Voltaren)Indica tions:Acute bilateral low back pain without sciatica Apply to the affected area daily 350 g 2 4 09/21/19 24 Discontinued Digoxin 125 MCG Oral Tablet (Lanoxin) One tablet three days weekly 90 Tablet 1 4 09/21/19 24 Discontinued Latanoprost 0.005 % Ophthalmic Solution (Xalatan) ONE DROP IN EACH EYE AT BEDTIME 2.5 mL 12 4 09/21/19 24 Discontinued Magnesium Chloride 64 MG Oral Tablet Take 1 Tablet by mouth daily. 90 Tablet 1 4 09/21/19 24 Discontinued Metoprolol Succinate ER 100 MG Oral Tablet Extended Release 24 Hour (Toprol XL) Take 1 Tablet by mouth in the morning and 1 Tablet before bedtime. 180 Tablet 4 09/21/19 24 Discontinued Sennosides-Docus ate Sodium 8.6-50 MG Oral Tablet (Senexon-S) Take 2 Tablets by mouth every night at bedtime. 180 Tablet 4 09/21/19 24 Discontinued Torsemide 10 MG Oral Tablet (Demadex) Take 1 Tablet by mouth in the morning. 90 Tablet 1 4 09/21/19 24 Discontinued Torsemide 5 MG Oral Tablet (Demadex) One tablet along with 10mg to equal 15mg daily 90 Tablet 1 4 09/21/19 24 Discontinued Warfarin Sodium 2 MG Oral Tablet (Jantoven) Take 1-2 Tablets by mouth every evening. 180 Tablet 1 4 09/21/19 24 Discontinued Potassium Chloride ER 10 MEQ Oral Capsule Extended ReleaseIndicatio ns:Chronic diastolic heart failure (HCC) Take 1 Capsule by mouth in the morning. 30 Capsule 1 4 09/21/19 24 Discontinued Apixaban 5 MG Oral Tablet (Eliquis) Take 1 Tablet by mouth in the morning and 1 Tablet before bedtime. 09/21/19 24 Discontinued(Oh dication List Clean Up) Aspirin 81 MG Oral Tablet Delayed Release Take 1 Tablet by mouth in the morning. 09/28/19 24 Discontinued Warfarin Sodium 2 MG Oral Tablet (Coumadin) Take by mouth. 09/28/19 24 Discontinued Apixaban 2.5 MG Oral Tablet (Eliquis) Take 1 Tablet by mouth in the morning and 1 Tablet before bedtime. 60 Tablet 4 09/24/19 24 Discontinued documented as of this encounter [...] lumbosacral intervertebral disc 02/04/2009 Coronary atherosclerosis of levelock coronary luis ry 02/24/2005 Senile osteoporosis 05/14/2003 [...] 09 Overview: RLP Parathyroid adenoma resection Benjy Smith, July 02, 2008 ICD-10 update of inactive term Slow transit constipation 02/09/2008 Postmenopausal atrophic vaginitis 02/09/2008 07/15/2017 Hypercalcemia 07/14/2005 05/22/2007 PVC (premature ventricular contraction) 05/26/2005 04/21/2017 Ischemic cardiomyopathy 02/25/200507/29 ADVANCE DIRECTIVE INFORMATION 02/24/2005 02/08/2017 Overview: No, Advance Directive brochure given to patient at prior appointment. OSTEOARTHROS NOS-L-LEG 05/26/200406/20 TENOSYNOV HAND-WRIST NEC 04/23/2003 CERVICAL 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 LOC PRIM [id number] 02/14/200205/30 Other seborrheic keratosis 10/31/2001 0 06/06/2007 [...] Sign Reading Time Taken Comments Blood Pressure 145/65 09/28/2023 6:32 PM EDT Pulse 71 09/28/2023 6:32 PM EDT Temperature 37 C (98.6 F) 09/28/2023 6:32 PM EDT Respiratory Rate 16 09/28/2023 6:32 PM EDT Oxygen Saturation 100% 09/28/2023 6:32 PM EDT Inhaled Oxygen Concentration - - Weight 72.7 kg (160 lb 4.4 oz) 09/28/2023 5:16 A M EDT Height 175.3 cm (5' 9") 09/21/2023 5:37 AM EDT Body Mass Index 23.67 09/21/2023 5:37 AM EDT documented in this [...] No 09/21/2023 documented as of this encounter Discharge Instructions * Discharge Instr - AVS* Jesus Latif DO - 09/21/2023 3:47 AM EDT Discharge Date: 09/28/2023 The information below provides you with the instructions and the list of medications you need to betaking following discharge from the hospital. If you have any questions, please ask before leaving. If you have questions after leaving, you can reach us at the numbers below. YOUR HOSPITAL PROVIDERS: Discharging Physician: Dr Oliva Resident Physician: Dr Hui Ibrahim Department: Hospital Medicine IF YOU HAVE QUESTIONS: - To reach this Provider Tuesday through Tuesday (8:00 AM to 4:30 PM) for any questions or test results: Call [phone] - For after-hours concerns: Call [phone] and have your provider paged, or the provider on callfor the Department of Hospital Medicine paged. - Please note, the discharging provider will not be able to provide you with any medications refills. Please discuss these with your primary care provider. FOR WORSENING SYMPTOMS: - If you have new symptoms, or your symptoms get worse, please contact your Discharge Provider or Primary Care Provider (PCP). If these providers are not available, you can go to your local [facility] during their business hours. - In an EMERGENCY situation: Call [phone] or go to the nearest emergency room. A BRIEF SUMMARY OF YOUR HOSPITAL STAY: You were admitted to the hospital after you presented with the concern of bleed in your abdomen, You were seen by interventional radiology who took you for a procedure and you did not have any activebleed. You were observed in the ICU and hospital medicine [place] and did not show any signs of bleeding. You developed a fever but no infection was found and you did very well. You were discharged on a new medication called Eliquis instead of the warfarin due to conversation in the hospital and you decided risk of clotting was more important than risk of bleeding . Your main diagnosis at discharge was: Retroperitoneal bleed (abdominal bleed) Operations & Procedures performed: Arterial Angiogram Complications: none Inpatient test results that are pending at discharge: none Advance Directive Documented: Advance Directive Does the Patient have an Advance Directive? No YOUR FOLLOW UP APPOINTMENTS: Primary Care Provider Information: PCP: DINORAH FREGOSO[address] [place] [address] [phone] An appointment was requested with your PCP for within 1 week of discharge from the hospital. (Please take this form to this visit with your primary care physician.) The phone number for general scheduling questions/assistance is: [phone] You need the following studies in the future: BMP and CBC in 3-5 days. INSTRUCTIONS: Diet: as prior to hospitalization Activity: as prior to hospitalization Call your primary care physician or seek medical attention if you have fevers, chills, have chest pain, shortness of breath, non-stop vomiting or diarrhea, confusion, bleeding per rectum or coughing blood or vomiting blood If you fee suicidal or homicidal, please call the crisis hotline at 1-563-394-TYCV ([phone]). MEDICATION CHANGES START TAKING THE FOLLOWING MEDICINES: 1. Eliquis (this is a blood thinner) - Take 2.5 mg, twice daily STOP TAKING THE FOLLOWING MEDICINES: 1. warfarin (this is a blood thinner) - It was discontinued because of your bleed and substituted to Eliquis given conversation that you were more concerned about clotting risk than bleeding risk. 2. aspirin (this is a anti-platelet) - It was discontinued because of your bleed CONTINUE TAKING ALL OTHER MEDICINES PRESCRIBED Interventional Radiology Discharge Instructions: Provider: Dr. Ian Coy If you are experiencing any problems related to your procedure, please contact Interventional Radiology at [phone] during normal business hours: Tuesday - Tuesday, 8:00 am - 4:00 pm. If a problem occurs outside of normal business hours, please call the hospital riveting machine operator at [phone] and ask for the Interventional Radiologist semiconductor dies loader. Contact scheduling for Interventional Radiology at [phone] during normal business hours: Tuesday - Tuesday, 8:00 am - 4:00 pm. The information below provides you with the instructions and the list of medications you need to betaking following discharge from the hospital. If you have any questions, please ask before leaving.Please carry this letter with you when you see your doctor in the clinic. If you have questions, you can reach us at the numbers above. SPECIAL INSTRUCTIONS Angiography or Venography Home Care Keep dressing clean, dry, and intact for 3 days; change as needed. Dressing can be removed in 3 days. Do only light and easy activities for 2-3 days after the procedure. Avoid strenuous activity for 1 week after the procedure. You may shower after 24 hours. Gently wash the area and pat it dry. Please DO NOT take a bath, soak in a hot tub, or swim until the wound is completely healed. Unless told otherwise, drink 6-8 glasses of water a day to prevent dehydration and to help flush your body of the dye that was used during your procedure. Take your temperature and check your incision for signs of infection (redness, swelling, or warmth at the incision site) every day for a week. If your site starts to bleed or swell (access site - wrist), keep wrist raised above the level of the heart and apply pressure to the site for 15 minutes. After the bleeding has stopped, continue to keep your arm raised and contact Interventional Radiology. If bleeding does not stop after 15 minutes, call 911 for emergency assistance or go to the closest Emergency Department. If your incision starts to bleed or swell (access site - groin), lay flat and have someone apply pressure to the incision site for 15 minutes. After the bleeding has stopped, continue to lay flat phu hour and contact Interventional Radiology. If bleeding does not stop after 15 minutes, call 911 for emergency assistance or go to the closest Emergency Department. When to Call Interventional Radiology Call Interventional Radiology right away if you have any of the following: Fever above 100 degrees Fahrenheit Increased bleeding, redness, swelling, warmth, or discharge at the incision site. Constant or increasing pain, numbness, coldness, or tingling in extremity where the catheter was inserted. If at any time you experience any of the following or feel you are having a medical emergency, [id number] for emergency assistance. Chest Pain Sudden, severe shortness of breath Rapid heart rate Sudden onset of weakness See your referring physician for follow-up appointment. Do not smoke or use tobacco products in any way! If you feel suicidal or homicidal, please call the crisis hotline at 8-421-476-AFKT ([phone]) documented in this encounter Progress Notes * Mohamud Ames MD - 09/27/2023 10:50 AM EDT PROGRESS NOTE - RESIDENT - HOSPITAL MEDICINE [facility] [address] Name: Miranda Coe Location: [facility] Date: 09/27/2023 Time: 10:50 AM Date of admission: 09/21/2023 Hospital length of stay: 6 days Subjective Overnight Events: No acute events overnight. Subjective: Seen bedside, doing well. The abdominal pain has been steadily improving, with no recent exacerbations. She did not feel a fever but says that 'I was warm and the nurse turned the fan on'. There is mild postural neck pain. She has no severe headache, no rash, no weakness in any extremity, no pain anywhere in her body besides baseline bilateral knee pain and left-sided abdominal pain, she has no diarrhea or constipation, no hematuria/dysuria/retention/incontinence/frequency. She says s he has had some baseline nausea since yesterday but has not felt any other symptoms associated withthe fever. There is no new cough or shortness of breath. All systems were reviewed, all pertinent findings were documented in the HPI, otherwise negative. Objective CONSTITUTIONAL DATA / OBJECTIVE: Vital Signs (Most Recent): BP: 129 mmHg/69 mmHg (09/27/23799) Pulse: 79 (09/27/23799) Resp: 16 (09/27/23799) Temp: 37.78 C (09/27/23799) Temp Summary: Temp Min: 37.6 C (99.7 F) Max: 38.4 C (101.1 F) SpO2: 100 % (09/27/23799) O2 flow rate: 2 L/MIN (09/26/232299) Supplemental O2 Delivery: Room Air, None (09/27/23799) Physical Examination: General: No acute distress. Appropriate mood and affect, oriented TPP. HEENT: normocephalic, atraumatic. No neck stiffness. No sinus tenderness/congestion. CVS: S1+S2. Regular heart sounds. No murmurs, rubs or gallops. Respiratory: Mild bibasal crackles. No excessive respiratory effort. On room air Abdomen: Left flank tenderness. No flank bruise. Non-distended, no guarding or rigidity. Bowel sounds audible. Flank bruise within demarcation. Extremities: No cyanosis. No pedal edema. Neurologic: Awake, Alert, and following commands. Peripheral Line Lower;Right (Active) Number of days: 6 Peripheral Line Left;Lower 22 Gauge (Active) Number of days: 2 Laboratory Values: reviewed CBC shows stable hemoglobin at 9.1, platelets are stable at 225,000, WBC decreased to 11,630. INR 1.2. BMP significant for calcium of 10.3 and sodium of 132. Baseline Cr 1.4. RVP negative. COVID PCR negative. Urinalysis suggests UTI, urine culture awaited. Blood culture awaited. Radiographic Studies: reviewed. IR angiogram on [place] to [facility] revealed no active bleeding. CT abdomen/pelvis w/ contrast awaited today. No other imaging studies done in this admission. Assessment & Plan Assessment and Plan: Active Problems: Moderate mitral regurgitation (POA: Yes) Gastroesophageal reflux disease without esophagitis (POA: Yes) Carpal tunnel syndrome (POA: Yes) Senile osteoporosis (POA: Yes) Hyperparathyroidism, primary (HCC) (POA: Yes) Degeneration of lumbosacral intervertebral disc (POA: Yes) Anxiety state (POA: Yes) Dyslipidemia, goal LDL below 70 (POA: Yes) Varicose vein of leg (POA: Yes) Chronic diastolic heart failure (HCC) (POA: Yes) Hypotension due to hypovolemia (POA: Yes) Cardiac pacemaker in situ (POA: Yes) Paroxysmal atrial fibrillation (HCC) (POA: Yes) MARTI (obstructive sleep apnea) (POA: Yes) Acute blood loss anemia (POA: Yes) Moderate episode of recurrent major depressive disorder (HCC) (POA: Yes) Chronic kidney disease, stage 3b (HCC) (POA: Yes) Overview: Per CKD protocol History of colon cancer (POA: Yes) Tachy-kraig syndrome (HCC) (POA: Yes) History of DVT (deep vein thrombosis) (POA: Yes) Overview: 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 Keeping inpatient for monitoring and initiation of Eliqius. Acute blood loss anemia Retroperitoneal hematoma Potential re-bleed Stable while on heparin gtt to test on AC. Monitoring hemodynamics, hemoglobin with q12 CBC and looking out for sudden increase in severity ofright flank pain. Aspirin still on hold. She is on Eliquis 2.5mg OD. Simultaneous risk of bleed on anticoag and Stroke Patient has a CHADVASC score of 6 and HASBLED of 5, was on warfarin. History suggestive of atraumatic retroperitoneal bleed. Latest duplex on 05/11 shows resolved DVT. There is high concern of further, possibly fatal bleeding if patient remains on anticoagulation. Extensive discussions with the patient about risks of being on and off warfarin discussed. She has a high fear of stroke risk and desires to continue anticoagulation. With everything in perspective, including supratherapeutic INRs on warfarin, complete DVT resolution and hoang check for Eliquis, we decided on Eliquis for anticoagulation. Switched from Heparin gtt to Eliquis yesterday. Fever Patient started developing fevers 2 days ago and had a true recorded fever yesterday. There is somenausea and generalized weakness but no other associated symptoms, no severe headache, no rash, no weakness in any extremity, no pain anywhere besides baseline bilateral knee pain and left-sided abdominal pain, no diarrhea or constipation, no urinary symptoms. Physical exam did not reveal any significant findings, no neck stiffness, no new rash, no sinus tenderness, no increased abdominal pain, nochanges in lung auscultatory findings. Consideration was given to atelactasis and infection of the hematoma. There are no signs/symptoms of hematoma infection. Her WBC count increased yesterday from normal to 13,900 yesterday, is 11,6300 today. With H&P not pointing to any focus, general infectious workup has revealed a U/A suggestive of UTI, negative RVP & COVID PCR. Blood and urine cultures awaited. CT scan abdomen/pelvis with contrast ordered today, scan awaited. Chronic Stable Medical Problems: Afib: Continue ENTRY LEVEL DRAFTER metoprolol. Started Eliquis CAD, HFrEF: Continue ENTRY LEVEL DRAFTER Digoxin. Hold aspirin DLD: Continue ENTRY LEVEL DRAFTER statin GERD: Continue ENTRY LEVEL DRAFTER Prilosec Chronic constipation: Continue ENTRY LEVEL DRAFTER Senna. Started Miralax CKD: Close fluid status monitoring Misc: Bowel Regimen: Miralax and ENTRY LEVEL DRAFTER senna Last Bowel Movement: 09/24/23 (09/26/23 2300) Stool Description: Large;Mushy;Pasty (09/26/23 2300) Heller: N/A Sleep: N/A PT/OT: N/A VTE Prophylaxis: SCBs & TEDS and heparin gtt Code Status: Full Code Anticipated Discharge: 1-2 days Patient was discussed with attending physician, Betito Hadley MD Associated attestation - Betito Hadley MD - 09/27/2023 12:26 PM EDT I saw and evaluated the patient today. I have reviewed the resident/fellow physician note and agree. Patient seen and evaluated at bedside. No acute events overnight. Somewhat worsening left-sided abdominal pain this morning. Continues to feel very fatigued. Continues to have intermittent fevers. Infectious workup fairly unremarkable aside from mildly abnormal urinalysis but lack of urinary symptoms at this time. Given fevers, worsening fatigue, worsening abdominal pain, will repeat CT abdomen and pelvis today to monitor prior hematoma and evaluate for any underlying intra-abdominal abscess. Will follow urineculture, if no additional infectious etiologies arise and patient remains febrile, will consider treating for urinary tract infection. Hemoglobin has remained stable on therapeutic anticoagulation. Will continue. Will likely discontinue aspirin indefinitely on discharge. We will continue to monitor closely. Dispo: 1-2 days. I spent a total of 51 minutes coordinating, documenting, and providing care for this patient excluding time spent in the performance of separately billed services. * Mohamud Ames MD - 09/26/2023 6:26 AM EDT PROGRESS NOTE - RESIDENT - HOSPITAL MEDICINE [facility] [address] Name: Miranda Coe [place] [facility] Date: 09/26/2023 Time: 6:26 AM Date of admission: 09/21/2023 Hospital length of stay: 5 days Subjective Overnight Events: No acute events overnight. Subjective: Seen bedside, doing well. The abdominal pain has been steadily improving, with no recent exacerbations. Patient says that shedidn't sleep well through the night, she attributed it to frequent waking up for vitals/labs. She did not feel a fever but says that she feels 'under the weather' today. She said she felt shortof breath this morning, no chest pain or wheezing. All systems were reviewed, all pertinent findings were documented in the HPI, otherwise negative. Objective CONSTITUTIONAL DATA / OBJECTIVE: Vital Signs (Most Recent): BP: 143 mmHg/65 mmHg (09/26/23221) Pulse: 73 (09/26/23221) Resp: 20 (09/26/23221) Temp: 37.72 C (09/26/23221) Temp Summary: Temp Min: 36.7 C (98.1 F) Max: 37.9 C (100.2 F) SpO2: 99 % (09/26/23221) O2 flow rate: 2 L/MIN (09/25/23 031) Supplemental O2 Delivery: Room Air, None (09/26/23221) Physical Examination: General: No acute distress. Appropriate mood and affect, oriented TPP. HEENT: normocephalic, atraumatic. CVS: S1+S2. Regular heart sounds. No murmurs, rubs or gallops. Respiratory: Bibasal crackles. No excessive respiratory effort. On room air Abdomen: Left flank tenderness. No flank bruise. Non-distended, no guarding or rigidity. Bowel sounds audible. Extremities: No cyanosis. No pedal edema. Neurologic: Awake, Alert, and following commands. Peripheral Line Lower;Right (Active) Number of days: 5 Peripheral Line Left;Lower 22 Gauge (Active) Number of days: 1 Laboratory Values: reviewed CBC shows stable hemoglobin at 9.1, platelets are stable at 200,000. INR 1.1. BMP significant for calcium of 10.3. Radiographic Studies: reviewed. IR angiogram [place] [facility] revealed no active bleeding. No other imaging studies done in this admission. Assessment & Plan Assessment and Plan: Active Problems: Moderate mitral regurgitation (POA: Yes) Gastroesophageal reflux disease without esophagitis (POA: Yes) Carpal tunnel syndrome (POA: Yes) Senile osteoporosis (POA: Yes) Hyperparathyroidism, primary (HCC) (POA: Yes) Degeneration of lumbosacral intervertebral disc (POA: Yes) Anxiety state (POA: Yes) Dyslipidemia, goal LDL below 70 (POA: Yes) Varicose vein of leg (POA: Yes) Chronic diastolic heart failure (HCC) (POA: Yes) Hypotension due to hypovolemia (POA: Yes) Cardiac pacemaker in situ (POA: Yes) Paroxysmal atrial fibrillation (HCC) (POA: Yes) MARTI (obstructive sleep apnea) (POA: Yes) Acute blood loss anemia (POA: Yes) Moderate episode of recurrent major depressive disorder (HCC) (POA: Yes) Chronic kidney disease, stage 3b (HCC) (POA: Yes) Overview: Per CKD protocol History of colon cancer (POA: Yes) Tachy-kraig syndrome (HCC) (POA: Yes) History of DVT (deep vein thrombosis) (POA: Yes) Overview: 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 Keeping inpatient for monitoring and initiation of Eliqius. Acute blood loss anemia Retroperitoneal hematoma Potential re-bleed Stable while on heparin gtt to test on AC. ENTRY LEVEL DRAFTER warfarin and aspirin with held; restart on d/c per patient's wish after risk/benefit discussion. Monitoring hemodynamics, hemoglobin with q12 CBC and looking out for sudden increase in severity ofright flank pain. Simultaneous risk of bleed on anticoag and Stroke Patient has a CHADVASC score of 6 and HASBLED of 5, has been on warfarin. History suggestive of atraumatic retroperitoneal bleed. History of DVT an year ago,latest duplex on 05/11 shows no DVT. There is high concern of further, possibly fatal bleeding if patient remains on anticoagulation. Extensive discussions with the patient about risks of being on and off warfarin discussed. She has a high fear of stroke risk and desires to continue anticoagulation. With everything in perspective, including supratherapeutic INRs on warfarin, complete DVT resolution and hoang check for Eliquis, we decided on Eliquis for anticoagulation. Switching from Heparin gtt to Eliquis at 9pm tonight. Chronic Stable Medical Problems: Afib: Continue ENTRY LEVEL DRAFTER metoprolol. Hold warfarin, c/w hep gtt till transition to eliquis at 9pm. CAD, HFrEF: Continue ENTRY LEVEL DRAFTER Digoxin. Hold aspirin DLD: Continue ENTRY LEVEL DRAFTER statin GERD: Continue ENTRY LEVEL DRAFTER Prilosec Chronic constipation: Continue ENTRY LEVEL DRAFTER Senna. Started Miralax CKD: Close fluid status monitoring Misc: Bowel Regimen: Miralax and ENTRY LEVEL DRAFTER senna Last Bowel Movement: 09/24/23 (09/25/23 194) Stool Description: Large;Mushy;Pasty;Brown;Green (09/24/23 1304) Heller: N/A Sleep: N/A PT/OT: N/A VTE Prophylaxis: SCBs & TEDS and heparin gtt Code Status: Full Code Anticipated Discharge: 1-2 days Patient was discussed with attending physician, Betito Hadley MD Associated attestation - Betito Hadley MD - 09/26/2023 12:30 PM EDT I saw and evaluated the patient today. I have reviewed the resident/fellow physician note and agree. Patient seen and evaluated at bedside. No acute events overnight, however patient not feeling well this morning. Reports had some shortness of breath as well. Just generally not feeling well today. Fever curve notable for slightly rising attempts overnight with true fever late morning today. Aside from mild shortness of breath which resolved on its own, no clear focal symptoms. Has known retroperitoneal hematoma. Will send full infectious workup including chest x-ray, urinalysis, blood cultures, RVP. Follow up results of workup. Otherwise stable and without clear source at this time pendingworkup, thus will hold off on antibiotics for now. Her hemoglobin remains stable on heparin infusion. Will continue for now with plan to transition tooral apixaban later today. Remainder of plan per resident note. I spent a total of 52 minutes coordinating, documenting, and providing care for this patient excluding time spent in the performance of separately billed services. * Jesus Latif, - 09/25/2023 10:36 AM EDT PROGRESS NOTE - RESIDENT - [place]OSP[place] MEDIC[place] [facility] [address] Name: Miranda Coe [place] [facility] [place] Date: 09/25/2023 Time: 10:36 AM Date of admission: 09/21/2023 Hospital length of stay: 4 days Subjective Overnight Events: No acute events overnight. Subjective: Seen bedside, doing well, without complaints or concerns. All systems were reviewed, all pertinent findings were documented in the HPI, otherwise negative. Objective CONSTITUTIONAL DATA / OBJECTIVE: Vital Signs (Most Recent): BP: 133 mmHg/54 mmHg (09/25/23 08) Pulse: 63 (09/25/23 0854) Resp: 18 (09/25/23310) Temp: 37.39 C (09/25/23310) Temp Summary: Temp Min: 36.5 C (97.7 F) Max: 37.4 C (99.3 F) SpO2: 99 % (09/25/23310) O2 flow rate: 2 L/MIN (09/25/23310) Supplemental O2 Delivery: Nasal Cannula (09/25/23310) Physical Examination: General: No acute distress. Appropriate mood and affect, oriented TPP. HEENT: normocephalic, atraumatic. CVS: S1+S2. Regular heart sounds. No murmurs, rubs or gallops. Respiratory: Decreased breath sounds on left mid-lower lobes and bibasal crackles. No excessive respiratory effort. On room air Abdomen: Right lower quadrant tenderness, left flank tenderness. No flank bruise. Non-distended, noguarding or rigidity. Bowel sounds audible. Extremities: No cyanosis. No edema. Neurologic: Awake, Alert, and following commands. Peripheral Line Lower;Right (Active) Number of days: 4 Laboratory Values: reviewed Hgb: 8.3 WBC: 9 Platelets: 164 Radiographic Studies: reviewed. IR angiogram on admission to [facility] revealed no active bleeding. No other imaging studies done in this admission. Assessment & Plan Assessment and Plan: Active Problems: Moderate mitral regurgitation (POA: Yes) Gastroesophageal reflux disease without esophagitis (POA: Yes) Carpal tunnel syndrome (POA: Yes) Senile osteoporosis (POA: Yes) Hyperparathyroidism, primary (HCC) (POA: Yes) Degeneration of lumbosacral intervertebral disc (POA: Yes) Anxiety state (POA: Yes) Dyslipidemia, goal LDL below 70 (POA: Yes) Varicose vein of leg (POA: Yes) Chronic diastolic heart failure (HCC) (POA: Yes) Hypotension due to hypovolemia (POA: Yes) Cardiac pacemaker in situ (POA: Yes) Paroxysmal atrial fibrillation (HCC) (POA: Yes) MARTI (obstructive sleep apnea) (POA: Yes) Acute blood loss anemia (POA: Yes) Moderate episode of recurrent major depressive disorder (HCC) (POA: Yes) Chronic kidney disease, stage 3b (HCC) (POA: Yes) Overview: Per CKD protocol History of colon cancer (POA: Yes) Tachy-kraig syndrome (HCC) (POA: Yes) History of DVT (deep vein thrombosis) (POA: Yes) Overview: 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 ENTRY LEVEL DRAFTER warfarin and aspirin with held; restart on d/c per patient's wish after risk/benefit discussion, likely will transition to eliquis pending cost at 2.5mg BID given age and kidney function. Monitoring hemodynamics, hemoglobin with q12 CBC and looking out for sudden increase in severity ofright flank pain. Simultaneous risk of bleed on anticoag and Stroke Patient has a CHADVASC score of 6 and HASBLED of 5, has been on warfarin. Her history strongly suggests that retroperitoneal bleed was atraumatic. She also has a history of DVT an year ago,latest duplex on 05/11 shows no DVT. There is high concern of further, possibly fatal bleeding if patient remains on anticoagulation. Extensive discussions with the patient about risks of being on and off warfarin discussed. She has a high fear of stroke risk and desires to continue anticoagulation. With everything in perspective, including supratherapeutic INRs on warfarin, complete DVT resolution and hoang check for Eliquis, we decided on Eliquis for anticoagulation. C/w hep gtt and monitoring Hb Chronic Stable Medical Problems: Afib: Continue ENTRY LEVEL DRAFTER metoprolol. Hold warfarin, c/w hep gtt, transition to eliquis at some point. CAD, HFrEF: Continue ENTRY LEVEL DRAFTER Digoxin. Hold aspirin DLD: Continue ENTRY LEVEL DRAFTER statin GERD: Continue ENTRY LEVEL DRAFTER Prilosec Chronic constipation: Continue ENTRY LEVEL DRAFTER Senna. Started Miralax CKD: Close fluid status monitoring Misc: Bowel Regimen: Miralax and ENTRY LEVEL DRAFTER senna Last Bowel Movement: 09/24/23 (09/24/23 2343) Stool Description: Large;Mushy;Pasty;Brown;Green (09/24/23 2343) Heller: N/A Sleep: N/A PT/OT: N/A VTE Prophylaxis: SCBs & TEDS and heparin gtt Code Status: Full Code Anticipated Discharge: 1-2 days Patient was discussed with attending physician, Betito Hadley MD Associated attestation - Betito Hadley MD - 09/25/2023 10:41 AM EDT I saw and evaluated the patient today. I have reviewed the resident/fellow physician note and agree. Patient seen and evaluated at bedside. No acute events overnight. Hemoglobin remained stable. No worsening abdominal pain or other symptoms. Hemodynamics remained stable. Patient not quite therapeutic on heparin infusion yet. We will continue heparin infusion today and monitor hemoglobin and for additional signs of bleeding. If remained stable, will likely transitioned to apixaban and plan for discharge tomorrow. We are still holding her aspirin at this time as well. Remainder of plan per resident note. I spent a total of 51 minutes coordinating, documenting, and providing care for this patient excluding time spent in the performance of separately billed services. * Mohamud Ames MD - 09/24/2023 2:06 PM EDT PROGRESS NOTE - RESIDENT - HOSPITAL MEDICINE [facility] [address] Name: Miranda Coe [place] [facility] [place] Date: 09/24/2023 Time: 2:06 PM Date of admission: 09/21/2023 Hospital length of stay: 3 days Subjective Overnight Events: No acute events overnight. Subjective: Patient seen and examined at bedside. Patient is doing well, abdominal pain stable. No new symptoms, no nausea/vomiting, no chest pain/dyspnea. All systems were reviewed, all pertinent findings were documented in the HPI, otherwise negative. Objective CONSTITUTIONAL DATA / OBJECTIVE: Vital Signs (Most Recent): BP: 108 mmHg/51 mmHg (09/24/23 0950) Pulse: 72 (09/24/2350) Resp: 18 (09/24/23949) Temp: 36.78 C (09/24/23 0950) Temp Summary: Temp Min: 36.6 C (97.9 F) Max: 37.4 C (99.3 F) SpO2: 99 % (09/24/2350) O2 flow rate: 2 L/MIN (09/24/23 0157) Supplemental O2 Delivery: Room Air, None (09/24/23949) Physical Examination: General: No acute distress. Appropriate mood and affect, oriented TPP. HEENT: normocephalic, atraumatic. CVS: S1+S2. Regular heart sounds. No murmurs, rubs or gallops. Respiratory: Decreased breath sounds on left mid-lower lobes and bibasal crackles. No excessive respiratory effort. On room air Abdomen: Right lower quadrant tenderness, left flank tenderness. No flank bruise. Non-distended, noguarding or rigidity. Bowel sounds audible. Extremities: No cyanosis. No edema. Neurologic: Awake, Alert, and following commands. Peripheral Line Lower;Right (Active) Number of days: 3 Peripheral Line Left;Lower Arm 20 Gauge (Active) Number of days: 1 Laboratory Values: reviewed CBC today showed Hb of 8.6, Hb stable around this level since the lats 48 hours. AM BMP insignificant, creatinine at baseline. INR 1.1 today. Radiographic Studies: reviewed. [place] angi[place] [facility] [place] no active bleeding. No other imaging studies done in this admission. Assessment & Plan Assessment and Plan: Active Problems: Moderate mitral regurgitation (POA: Yes) Gastroesophageal reflux disease without esophagitis (POA: Yes) Carpal tunnel syndrome (POA: Yes) Senile osteoporosis (POA: Yes) Hyperparathyroidism, primary (HCC) (POA: Yes) Degeneration of lumbosacral intervertebral disc (POA: Yes) Anxiety state (POA: Yes) Dyslipidemia, goal LDL below 70 (POA: Yes) Varicose vein of leg (POA: Yes) Chronic diastolic heart failure (HCC) (POA: Yes) Hypotension due to hypovolemia (POA: Yes) Cardiac pacemaker in situ (POA: Yes) Paroxysmal atrial fibrillation (HCC) (POA: Yes) MARTI (obstructive sleep apnea) (POA: Yes) Acute blood loss anemia (POA: Yes) Moderate episode of recurrent major depressive disorder (HCC) (POA: Yes) Chronic kidney disease, stage 3b (HCC) (POA: Yes) Overview: Per CKD protocol History of colon cancer (POA: Yes) Tachy-kraig syndrome (HCC) (POA: Yes) History of DVT (deep vein thrombosis) (POA: Yes) Overview: 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 Patient underwent angiography by IR to stop bleeding but there was no active bleed at the time,indicating stopping. She was monitored in ICU for 2 days. ENTRY LEVEL DRAFTER warfarin and aspirin with held. Monitoring hemodynamics, hemoglobin with q12 CBC and looking out for sudden increase in severity ofright flank pain. Simultaneous risk of bleed on anticoag and Stroke Patient has a CHADVASC score of 6 and HASBLED of 5, has been on warfarin. Her history strongly suggests that retroperitoneal bleed was atraumatic. She also has a history of DVT an year ago,latest duplex on 05/11 shows no DVT. There is high concern of further, possibly fatal bleeding if patient remains on anticoagulation. Extensive discussions with the patient about risks of being on and off warfarin discussed. She has a high fear of stroke risk and desires to continue anticoagulation. With everything in perspective, including supratherapeutic INRs on warfarin, complete DVT resolution and hoang check for Eliquis, we decided on Eliquis for anticoagulation. To gain further confidence in giving Eliquis, heparin gtt has been started today to monitor patientresponse to anticoagulation. Family has been updated regarding above details. Daughter Lucinda and son Cindy were updated, we were unable to reach Lia. Chronic Stable Medical Problems: Afib: Continue ENTRY LEVEL DRAFTER metoprolol. Hold warfarin, starting heparin gtt today. CAD, HFrEF: Continue ENTRY LEVEL DRAFTER Digoxin. Hold aspirin DLD: Continue ENTRY LEVEL DRAFTER statin GERD: Continue ENTRY LEVEL DRAFTER Prilosec Chronic constipation: Continue ENTRY LEVEL DRAFTER Senna. Started Miralax CKD: Close fluid status monitoring Misc: Bowel Regimen: Miralax and ENTRY LEVEL DRAFTER senna Last Bowel Movement: 09/24/23 (09/24/23 0956) Stool Description: Large;Loose;Mushy;Brown;Green (09/24/23 0956) Heller: N/A Sleep: N/A PT/OT: N/A VTE Prophylaxis: SCBs & TEDS and heparin gtt Code Status: Full Code Anticipated Discharge: When no concern for hematoma instability Patient was discussed with attending physician, MD Mohamud Liu MD Internal Medicine Geological Science Teacher This chart was completed in part utilizing [employer] Speech Voice Recognition Software. Grammatical errors, random word insertions, pronoun errors, and incomplete sentences are an occasional consequence of this system due to software limitations, ambient noise, and hardware issues. Any formal questions or concerns about the content, text, or information contained within the body of this dictation should be directly addressed to the provider for clarification. Associated attestation - Betito Hadley MD - 09/24/2023 3:36 PM EDT I saw and evaluated the patient today. I have reviewed the resident/fellow physician note and agree. Seen and evaluated at bedside. No acute events overnight. Hemoglobin remained stable today. Vitals remained stable. Abdominal pain continues to improve. No evidence of ongoing bleeding at this time. Had extensive risks/benefit discussion with patient and her family regarding anticoagulation moving forward (please see separate dedicated communication note). Patient has elected to restart therapeutic anticoagulation at this time. We will start no bolus heparin infusion and monitor her hemoglobin. If remained stable and no evidence of bleeding on therapeutic anticoagulation, will likely discharge on dose reduced apixaban. Remainder of plan per resident note. I spent a total of 55 minutes coordinating, documenting, and providing care for this patient excluding time spent in the performance of separately billed services. * Mohamud Ames MD - 09/23/2023 12:52 PM EDT TRANSFER RECEIVING NOTE - MICHEL[facility] [address] [address] Name: Miranda Coe Current Location: [address] HANDOFF COMMUNICATION: Sending patient service: ICU Accepting service: GIM Sending attending aware of patient and transfer: yes Receiving attending aware of patient and transfer: yes Name of receiving attending provider: Dr. Betito Mae Patient care is being assumed by receiving service: when transferred Reason for transfer: Step-down care PATIENT DESCRIPTION: Patient is a 88 year old female PMHx of Afib on warfarin, CAD, tachy-kraig syndrome s/p pacemaker, CKD 3a, CA colon s/p hemicolectomy(2021), DVT(2021) admitted for retroperitoneal hematoma. HPI/EVENTS OF NOTE: She started feeling pain in her left flank after getting off a bar stool. She was unable to move her left lower extremity due to pain and was taken to hospital at [place]. She was then transferred to [facility] due to active bleeding into retroperitoneal space. Was taken for embolization to IR but no active bleeding seen on angiogram. She has been stepped down to the floor from the ICU today. TRANSFER MEDICATION RECONCILIATION COMPLETED? yes REVIEW OF SYSTEMS: General: Pale, no acute distress HEENT: No nosebleeds CVS and pulmonary: No chest pain, no cough or wheeze. Mild shortness of breath on exertion GI: Constipation, LBM was 3 days ago. No vomiting/nausea MSK: Has generalized body aches Neuro: No acute weakness in any limbs, no visual disturbances. CONSTITUTIONAL DATA: BP: 126 mmHg/50 mmHg (09/23/23 1232) Pulse: 72 (09/23/23 1232) Resp: 20 (09/23/23 1232) Temp: 37.11 C (09/23/23 1232) Temp Summary: Temp Min: 36.5 C (97.7 F) Max: 37.5 C (99.5 F) SpO2: 98 % (09/23/23 1232) O2 flow rate: 2 L/MIN (09/23/23 0700) Supplemental O2 Delivery: Room Air, None (09/23/23 123) PHYSICAL EXAM: General: Ill-appearing HEENT: normocephalic, atraumatic, sclerae anicteric. Heart: Irregular heart sounds, S1+S2, no added heart sounds. No JVD Pulmonary: Decreased breath sounds on left mid-lower lobes and bibasal crackles. Abdomen: Right lower quadrant tenderness, left flank tenderness. No flank bruising. Non-distended, no guarding or rigidity. Bowel sounds audible. Extremities: No pedal edema Skin: [place], warm, no wounds or lesions present. Neuro: Responding to questions appropriately. No focal motor or neurologic deficits. Psych: Appropriate mood and affect. LABORATORY VALUES: reviewed CBC; Latest Hb 7.9(from 8.1 yesterday 8pm and 8.7 yesterday 10am). Platelets 138,000(155,000 yesterday 10am), WBCs normalized to 10,300 today. BMP with potassium of 5.2 today, creatinine at baseline, otherwise normal. INR 1.0 RADIOGRAPHIC STUDIES: CT Abdomen/Pelvis with IV contrast from [facility] with reported active extravasation into left sided [id number] retroperitoneal hematoma. Images available on [employer]. Active Problems: Moderate mitral regurgitation (POA: Yes) Gastroesophageal reflux disease without esophagitis (POA: Yes) Carpal tunnel syndrome (POA: Yes) Senile osteoporosis (POA: Yes) Hyperparathyroidism, primary (HCC) (POA: Yes) Degeneration of lumbosacral intervertebral disc (POA: Yes) Anxiety state (POA: Yes) Dyslipidemia, goal LDL below 70 (POA: Yes) Varicose vein of leg (POA: Yes) Chronic diastolic heart failure (HCC) (POA: Yes) Hypotension due to hypovolemia (POA: Yes) Cardiac pacemaker in situ (POA: Yes) Paroxysmal atrial fibrillation (HCC) (POA: Yes) MARTI (obstructive sleep apnea) (POA: Yes) Moderate episode of recurrent major depressive disorder (HCC) (POA: Yes) Chronic kidney disease, stage 3b (HCC) (POA: Yes) History of colon cancer (POA: Yes) Tachy-kraig syndrome (HCC) (POA: Yes) History of DVT (deep vein thrombosis) (POA: Yes) 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 Will closely monitor vitals, hemoglobin and any signs indicative of rebleeding such as severe pain increasing from baseline or ecchymoses. Chronic stable medical problems Afib: Continue ENTRY LEVEL DRAFTER metoprolol. Hold warfarin CAD, HFrEF: Continue ENTRY LEVEL DRAFTER Digoxin. Hold aspirin DLD: Continue ENTRY LEVEL DRAFTER statin GERD: Continue ENTRY LEVEL DRAFTER Prilosec Chronic constipation: Continue ENTRY LEVEL DRAFTER Senna. Started Miralax CKD: Close fluid status monitoring DVT Prophylaxis: None due to concern of bleeding Stress Ulcer Prophylaxis: ENTRY LEVEL DRAFTER Prilosec Glycemic Control: controlled - not in protocol Central Line Necessity Reviewed: N/A Heller: N/A Disposition: transfer to floor Patient's decisional capacity: has capacity to make decisions Communication with Patient/Family: Phone call with daughter, Goals of Care: Monitor for decompensation. Consider changing/stopping warfarin for bleeding prevention. * Kian Johnson, - 09/23/2023 12:37 PM EDT BRIEF TRANSFER OUT OF INTENSIVE CARE NOTE - CRITICAL CARE MEDIC[place] [facility] [id number] Name: Miranda Coe Current Location: [address] Primary ICU Problem: retroperitoneal hematoma with active extravasation on CT ICU Course/Complications: Patient was immediately taken to IR for definitive management of RP bleed. No embolization or intervention performed in IR due to no evidence of bleed observed. Her ICU course was unremarkable. Hemodynamics appear within normal range without the need for pressors support. Patient reported significant improvement of her pain. Coumadin was held on admission and will need risk vs benefit discussion prior to discharge. She requires further inpatient monitoring since Hgb continues to downtrend. Delirium: No Mechanical Ventilation: Intubated: No Difficult airway: No Major Procedures: Arterial angiography Medications: Medication changes: Holding ENTRY LEVEL DRAFTER aspirin, resume when appropriate Hold Toporol XL 100mg BID AND started on lopressor 50 mg BID, adjust as needed. Warfarin was held on admission and will need risk vs benefit discussion prior to discharge. Hold torsemide 15mg qD, resume when appropriate Antibiotics: No Pending ICU Issues: Active issues currently being followed or monitored at time of transfer out of ICU: Hgb trending down Consults following or that need to be accomplished: None (IR previously seen) Central Lines/Chest Tubes/PICC/IUBC: Remaining in place: No Family Meeting/Goals of Care: Full Code Attending Attestation: I have discussed the patient's management with the medical trainee and agree with the note. Please refer to the documented findings and plan of care. The patient's bedside service today consisted of an evaluation. I was present and confirmed the findings of the history and exam. No acute events overnight, hemodynamically stable. Hemoglobin 7.9 from 8.7 yesterday. Given chronic DVT and atrial fibrillation she does have a strong indication to resume anticoagulation but will plan to hold for a fewdays post spontaneous retroperitoneal hemorrhage. Okay for transfer out of ICU. * Kian Johnson DO - 09/23/2023 6:55 AM EDT CCM - [place]GRESS [place] [facility] [place] [id number] Name: Miranda Coe [place] [facility] Date: 09/23/2023 Date of admission: 09/21/2023 Hospital length of stay: 2 days PATIENT DESCRIPTION: The patient is a 88 year old female with a medical history significant for permanent Afib on coumadin, history of RLE DVT, tachy-kraig syndrome s/p PPM 2017, CAD s/p PCI 2004, HFpEF (EF 45%), moderate TR, mod-sev MR, hypertension, CKD IIIA/B, MARTI on 2L qHS, history of colon cancer s/p hemicolectomy, hyperparathyroidism and anxiety/depression who presented as a transfer from [place] after noticing worsening left flank/hip pain after getting off a high stool. CT abdomen/pelvis was done which revealed active extravasation into a left sided [id number] retroperitoneal hematoma. En route, patient was noted to be hypotensive with SBP's in the 60's and mildly tachycardic prompting administration of 1U whole blood and she was given 2000 kcentra to reverse her warfarin. She was received by the ED at [facility] immediately taken to IR for definitive management of RP bleed. Hemodynamics were within normal range off pressors. No embolization or intervention performed in IR due to no evidence of bleed observed. EVENTS OF NOTE: 09/20: Patient transferred to [facility] due to active extravasation and large retroperitoneal hematoma went to IR with no intervention due to lack of extravasation at time of procedure 09/21: 2 g hemoglobin drop overnight 09/22: transfer to floor INTERIM HISTORY / SUBJECTIVE: Overnight had some abdominal pain. Given lidocaine patch. Objective CONSTITUTIONAL DATA / OBJECTIVE: Vital Signs (Most Recent): Pulse: 71 (09/23/23 0600) BP: 146/71 (09/23/23 0600) Resp: 17 (09/23/23599) Temp: 37.1 C (98.8 F) (09/23/23599) SpO2: 100 % (09/23/23599) Vital Signs (Last 24 Hours): Pulse Av.4 Min: 60 Max: 78 No data recorded Most Recent Systolic BP Av.6 mmHg Min: 109 mmHg Max: 154 mmHg Most Recent Diastolic BP Av.3 mmHg Min: 50 mmHg Max: 112 mmHg Resp Av Min: 14 Max: 27 Most Recent Temperature Av C Min: 36.39 C Max: 37.5 C SpO2 Av.3 % Min: 94 % Max: 100 % Ventilatory Support: HFNC: O2 flow rate: 2 L/MIN (09/23/23699) qHs CPAP/EPAP: IPAP: Intake & Output Summary (Last 24 hours): Intake/Output Summary (Last 24 hours) at 09/23/2023 0655 Last data filed at 09/23/2023 0400 Gross per 24 hour Intake 1370 ml Output -- Net 1370 ml Net IO Since Admission: 1,050 mL [09/22/23 0851] Height & Weight: Height: 175.3 cm (5' 9") (09/21/23 0537) Weight: 56.2 kg (123 lb 14.4 oz) (09/22/23 0500) Weight change: Body mass index is 18.3 kg/m. Physical Examination: General: Ill-appearing HEENT: normocephalic, atraumatic, sclerae anicteric. Heart: Regular rate, regular rhythm; S1 and S2 present; blowing murmur best heard at the mitral post. Capillary refill less than 5 seconds. Pulmonary: Lungs clear to auscultation bilaterally; no wheezes, rhonchi or crackles. Abdomen: Right lower quadrant tenderness, left flank tenderness. No new flank bruising. Non-distended, no guarding or rigidity. Extremities: No pitting edema present at lower extremity bilaterally. Palpable pedal pulses bilaterally. Skin: [place], warm, no wounds or lesions present. Neuro: Responding to questions appropriately. No focal motor or neurologic deficits noted on exam. Psych: Appropriate mood and affect. Peripheral Line Left;Lower;Posterior Arm 20 Gauge (Active) Number of days: 2 Peripheral Line Lower;Right (Active) Number of days: 2 Laboratory Values: reviewed. -- Brief labs below include the 7 most recent results over the past week. Blood Gas: No results in the last 7 days - inpatent use only Chemistry Panel: Lab results within last 7 days (see chart for full results) Units 09/23/23 0520 09/22/23 0730 09/21/23 0325 09/21/23 0322 Sodium mmol/L 136 136 135 -- Potassium mmol/L 5.2* 4.7 4.7 -- Potassium i-STAT mmol/L -- -- -- 4.7 Chloride mmol/L 106 104 103 -- CO2 mmol/L 24 25 20* -- CO2 i-STAT mmol/L -- -- -- 25 BUN mg/dL 31* 32* 28* -- BUN i-STAT mg/dL -- -- -- 29* Creatinine mg/dL 1.4* 1.5* 1.4* -- Creatinine i-STAT mg/dL -- -- -- 1.5* Estimated Glomerular Filtration Rate mL/min 36* 35* 36* -- Glucose mg/dL 94 103 207* -- Calcium mg/dL 10.2 10.1 9.7 -- Anion Gap mmol/L 6* 7 12 -- Complete Blood Count: Lab results within last 7 days (see chart for full results) Units 09/23/23 0520 09/22/23 1943 09/22/23 0948 09/21/23 0639 09/21/23 0325 WBC K/uL 10.32 11.64* 14.57* 9.43 12.94* HGB g/dL 7.9* 8.1* 8.7* 10.7* 11.0* HCT % 25.0* 25.2* 28.4* 35.7* 35.5* PLT K/uL 138* 139* 155 146 168 MCV fL 99.6 98.1 99.3 101.4 99.2 Cardiac Studies: Lab results within last 7 days (see chart for full results) Units 09/21/23 0325 Troponin T, High Sensitivity ng/L 48* Coagulation Studies: Lab results within last 7 days (see chart for full results) Units 09/21/23 0325 Prothrombin Time seconds 14.6 INR 1.1 Liver Function Panel: Lab results within last 7 days (see chart for full results) Units 09/21/23 0325 Albumin g/dL 3.5* Protein g/dL 5.8* Bilirubin, Total mg/dL 0.5 AST U/L 22 ALT U/L 15 Alkaline Phosphatase U/L 40 Infectious Studies: Lab results within last 7 days (see chart for full results) Units 09/22/23 0730 09/21/23 1714 09/21/23 1136 09/21/23 0639 09/21/23 0325 Lactate, Whole Blood mmol/L 1.3 -- -- 2.7* 2.8* Lactate mmol/L -- 2.1* 3.6* 3.1* -- Cultures: reviewed. Recent Cultures (2 Weeks) No lab values to display. Radiographic Studies: reviewed. IR ARTERIAL INTERVENTION Result Date: 09/21/2023 IMPRESSION: Diagnostic angiogram of the left iliolumbar, iliac artery branches, T11 intercostal, T12 subcostal, and L1-L5 lumbar arteries without evidence of active arterial extravasation. No embolization was performed. PLAN: The patient should remain supine with legs straight for two hours. If patient continues to have downtrending hemoglobin, may consider repeat CTA. Bleeding may have stopped after correction of coagulopathy. I have personally reviewed this examination and agree with the resident/fellow physician's interpretation. Assessment & Plan Active Problems: Moderate mitral regurgitation (POA: Yes) Gastroesophageal reflux disease without esophagitis (POA: Yes) Carpal tunnel syndrome (POA: Yes) Senile osteoporosis (POA: Yes) Hyperparathyroidism, primary (HCC) (POA: Yes) Degeneration of lumbosacral intervertebral disc (POA: Yes) Anxiety state (POA: Yes) Dyslipidemia, goal LDL below 70 (POA: Yes) Varicose vein of leg (POA: Yes) Chronic diastolic heart failure (HCC) (POA: Yes) Hypotension due to hypovolemia (POA: Yes) Cardiac pacemaker in situ (POA: Yes) Paroxysmal atrial fibrillation (HCC) (POA: Yes) MARTI (obstructive sleep apnea) (POA: Yes) Moderate episode of recurrent major depressive disorder (HCC) (POA: Yes) Chronic kidney disease, stage 3b (HCC) (POA: Yes) Overview: Per CKD protocol History of colon cancer (POA: Yes) Tachy-kraig syndrome (HCC) (POA: Yes) History of DVT (deep vein thrombosis) (POA: Yes) Overview: 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 P.r.n. Ativan 0.25 mg Tylenol p.r.n. RASS Goal: 0 RASS Assessment: 0 Alert and Calm (09/23/23 0400) Pain Control: Acetaminophen p.r.n. Current Pain Score: 0 (no pain) (09/23/23 0400) Paralytic: None Delirium/Confusion Assessment: CAM-ICU Positive?: No (09/23/23 0000) PULMONARY / RESPIRATORY: MARTI Unable tolerate CPAP, on nasal cannula q.h.s. Respiratory treatment protocol CARDIOVASCULAR: Paroxysmal atrial fibrillation on Coumadin History of tachy-kraig status post dual-chamber ppm 2017 CAD status post PCI in 2004 Hypertension Heart failure with moderately reduced ejection fraction EF 45% Grade 3 diastolic heart failure Grade 3 diastolic heart failure Moderate tricuspid regurgitation Moderate severe mitral regurgitation Dyslipidemia Holding ENTRY LEVEL DRAFTER aspirin Continue atorvastatin 40 mg daily, digoxin Lopressor 50 mg twice daily, we will up titrate as able Hold warfarin 2 mg q.h.s. Will need risk benefit discussion before restarting; hold for now Hold torsemide 15 mg daily GASTROINTESTINAL / HEPATOBILIARY: GERD History of hemicolectomy Continuing ENTRY LEVEL DRAFTER omeprazole Last Bowel Movement: 09/20/23 (per patient) (09/21/23 0600) Bowel Regimen: None Stress Ulcer Prophylaxis: N/A Diet / Nutrition: Heart healthy RENAL / METABOLIC / FLUIDS: Mild anion gap metabolic acidosis, secondary to lactic acidosis (resolved) CKD stage 3b Lactate improved, no longer trending Appears to be at baseline creatinine Baseline Cr 1.1-1.3. Most Recent: Serum creatinine: 1.4 mg/dL (H) 09/23/23 0520 Estimated creatinine clearance: 25.6 mL/min (A) Monitor electrolytes at least daily. Replete electrolytes as indicated. Avoid Nephrotoxins including NSAIDS and IV contrast. Strict monitoring of fluid intake and output. Renal dosing and medication considerations adjusted for glomerular filtration rate. Daily weights. INFECTIOUS DISEASES: Leukocytosis History of C diff No evidence of acute infection at this time, patient asymptomatic, will monitor WBC Continue following culture data. Antibiotic Regimen: None End date of antibiotics: N/A ENDOCRINE: Hyperparathyroidism Blood Glucose Monitoring (BGM) Goal: 140-180. Inpatient Glycemic Control: None Most recent: 103 Home Diabetic Regimen: None HEMATOLOGIC: Retroperitoneal bleed, resolved INR supratherapeutic at 3.9 at OSH placing patient at risk for bleed Nontraumatic hematoma History of spontaneous right iliopsoas hematoma 2019 History of colon cancer status post hemicolectomy in 2021 History of right lower extremity DVT Chronic venous insufficiency Iron-deficiency anemia CBC Q12h; Hgb continuing to downtrend but remains HD stable If HD instability, stat CTA Holding Coumadin We will start when hemoglobin has been stable Has received 1 unit whole blood Status post IR; no active bleed seen therefore no intervention/embolization Trending CBC Continue ENTRY LEVEL DRAFTER B12 and iron supplements VTE/DVT Prophylaxis: SCDs only MUSCULOSKELETAL/ P.T / O.T. / MOBILITY: Osteoporosis Follows with Rheumatology, on Prolia PT/OT DERMATOLOGIC / WOUND CARE: Wound care PRN LINES / DRAINS / TUBES: LINES ALL Duration Supplemental Airway Natural;Mask 2355 days Peripheral Line Left;Lower;Posterior Arm 20 Gauge 2 days Peripheral Line Lower;Right 2 days List of services consulted/following: ADULT PHYSICAL THERAPY CONSULT IP ADULT OCCUPATIONAL THERAPY CONSULT IP CARE MANAGEMENT CONSULT IP ADULT PHYSICAL THERAPY CONSULT IP GLOBAL ISSUES: Code Status: Full Code Analgesia: protocol with control Sedation: N/A Nutrition: PO DVT Prophylaxis: Not indicated Stress Ulcer Prophylaxis: On ENTRY LEVEL DRAFTER omeprazole Glycemic Control: controlled - not in protocol Oral hygiene every four hours Chlorhexidine mouth rinse every twelve hours Central Line Necessity Reviewed: N/A Heller: N/A Disposition: transfer to floor Patient's decisional capacity: has capacity to make decisions Communication with Patient/Family: No meeting held. Goals of Care: stabilize hemodynamic status Patient was discussed with attending physician, Kian Johnson, DO Rliey Barone, DO Internal Medicine, PGY-3 Attending Attestation: I have discussed the patient's management with the medical trainee and agree with the note. Please refer to the documented findings and plan of care. The patient's bedside service today consisted of an evaluation. I was present and confirmed the findings of the history and exam. No acute events overnight, hemodynamically stable. Hemoglobin 7.9 from 8.7 yesterday. Given chronic DVT and atrial fibrillation she does have a strong indication to resume anticoagulation but will plan to hold for a fewdays post spontaneous retroperitoneal hemorrhage. Okay for transfer out of ICU. * Kian Johnson DO - 09/22/2023 8:50 AM EDT CCM - PROGRESS NOTE [facility] [id number] Name: Miranda Coe [place] [facility] [place] Date: 09/22/2023 Date of admission: 09/21/2023 Hospital length of stay: 1 days PATIENT DESCRIPTION: The patient is a 88 year old female with a medical history significant for permanent Afib on coumadin, history of RLE DVT, tachy-kraig syndrome s/p PPM 2017, CAD s/p PCI 2004, HFpEF (EF 45%), moderate TR, mod-sev MR, hypertension, CKD IIIA/B, MARTI on 2L qHS, history of colon cancer s/p hemicolectomy, hyperparathyroidism and anxiety/depression who presented as a transfer from [place] after noticing worsening left flank/hip pain after getting off a high stool. CT abdomen/pelvis was done which revealed active extravasation into a left sided [id number] retroperitoneal hematoma. En route, patient was noted to be hypotensive with SBP's in the 60's and mildly tachycardic prompting administration of 1U whole blood and she was given 2000 kcentra to reverse her warfarin. She was received by the ED at [facility] immediately taken to IR for definitive management of RP bleed. Hemodynamics were within normal range off pressors. No embolization or intervention performed in IR due to no evidence of bleed observed. EVENTS OF NOTE: 09/20: Patient transferred to [facility] due to active extravasation and large retroperitoneal hematoma went to IR with no intervention due to lack of extravasation at time of procedure 09/21: 2 g hemoglobin drop overnight INTERIM HISTORY / SUBJECTIVE: Overnight: Patient did well overnight. This morning, patient evaluated at bedside. This morning patient complained of left flank pain. Shestates that this began yesterday and has improved since then. She denied fevers, chills, shortness of breath, chest pain, abdominal pain, nausea, vomiting, diarrhea. Objective CONSTITUTIONAL DATA / OBJECTIVE: Vital Signs (Most Recent): Pulse: 73 (09/22/23 1700) BP: 116/74 (09/22/23 1700) Resp: 17 (09/22/23 170) Temp: 37 C (98.6 F) (09/22/23 1600) SpO2: 100 % (09/22/23 170) Vital Signs (Last 24 Hours): Pulse Av.6 Min: 65 Max: 86 No data recorded Most Recent Systolic BP Av.3 mmHg Min: 100 mmHg Max: 145 mmHg Most Recent Diastolic BP Av.7 mmHg Min: 50 mmHg Max: 76 mmHg Resp Av.4 Min: 14 Max: 27 Most Recent Temperature Av.8 C Min: 36.39 C Max: 37.28 C SpO2 Av.8 % Min: 94 % Max: 100 % Ventilatory Support: HFNC: O2 flow rate: 1 L/MIN (09/21/23 0800) qHs CPAP/EPAP: IPAP: Intake & Output Summary (Last 24 hours): Intake/Output Summary (Last 24 hours) at 09/22/2023 1752 Last data filed at 09/22/2023 1300 Gross per 24 hour Intake 1160 ml Output -- Net 1160 ml Net IO Since Admission: 1,050 mL [09/22/23 0851] Height & Weight: Height: 175.3 cm (5' 9") (09/21/23 0537) Weight: 56.2 kg (123 lb 14.4 oz) (09/22/23 0500) Weight change: -18.2 kg (-40 lb 1.6 oz) Body mass index is 18.3 kg/m. Physical Examination: General: Patient awake, alert, in no apparent distress, HEENT: normocephalic, atraumatic, sclerae anicteric. Heart: Regular rate, regular rhythm; S1 and S2 present; blowing murmur best heard at the mitral post. Capillary refill less than 5 seconds. Pulmonary: Lungs clear to auscultation bilaterally; no wheezes, rhonchi or crackles. Abdomen: Right lower quadrant tenderness, left flank tenderness. Nondistended, no guarding or rigidity. Extremities: No pitting edema present at lower extremity bilaterally. Palpable pedal pulses bilaterally. Skin: [place], warm, no wounds or lesions present. Neuro: Responding to questions appropriately. No focal motor or neurologic deficits noted on exam. Psych: Appropriate mood and affect. Peripheral Line Left;Lower;Posterior Arm 20 Gauge (Active) Number of days: 1 Peripheral Line Lower;Right (Active) Number of days: 1 Laboratory Values: reviewed. -- Brief labs below include the 7 most recent results over the past week. Blood Gas: No results in the last 7 days - inpatent use only Chemistry Panel: Lab results within last 7 days (see chart for full results) Units 09/22/23 0730 09/21/23 0325 09/21/23 0322 Sodium mmol/L 136 135 -- Potassium mmol/L 4.7 4.7 -- Potassium i-STAT mmol/L -- -- 4.7 Chloride mmol/L 104 103 -- CO2 mmol/L 25 20* -- CO2 i-STAT mmol/L -- -- 25 BUN mg/dL 32* 28* -- BUN i-STAT mg/dL -- -- 29* Creatinine mg/dL 1.5* 1.4* -- Creatinine i-STAT mg/dL -- -- 1.5* Estimated Glomerular Filtration Rate mL/min 35* 36* -- Glucose mg/dL 103 207* -- Calcium mg/dL 10.1 9.7 -- Anion Gap mmol/L 7 12 -- Complete Blood Count: Lab results within last 7 days (see chart for full results) Units 09/22/23 0948 09/21/23 0639 09/21/23 0325 WBC K/uL 14.57* 9.43 12.94* HGB g/dL 8.7* 10.7* 11.0* HCT % 28.4* 35.7* 35.5* PLT K/uL 155 146 168 MCV fL 99.3 101.4 99.2 Cardiac Studies: Lab results within last 7 days (see chart for full results) Units 09/21/23 0325 Troponin T, High Sensitivity ng/L 48* Coagulation Studies: Lab results within last 7 days (see chart for full results) Units 09/21/23 0325 Prothrombin Time seconds 14.6 INR 1.1 Liver Function Panel: Lab results within last 7 days (see chart for full results) Units 09/21/23 0325 Albumin g/dL 3.5* Protein g/dL 5.8* Bilirubin, Total mg/dL 0.5 AST U/L 22 ALT U/L 15 Alkaline Phosphatase U/L 40 Infectious Studies: Lab results within last 7 days (see chart for full results) Units 09/22/23 0730 09/21/23 1714 09/21/23 1136 09/21/23 0639 09/21/23 0325 Lactate, Whole Blood mmol/L 1.3 -- -- 2.7* 2.8* Lactate mmol/L -- 2.1* 3.6* 3.1* -- Cultures: reviewed. Recent Cultures (2 Weeks) No lab values to display. Radiographic Studies: reviewed. IR ARTERIAL INTERVENTION Result Date: 09/21/2023 IMPRESSION: Diagnostic angiogram of the left iliolumbar, iliac artery branches, T11 intercostal, T12 subcostal, and L1-L5 lumbar arteries without evidence of active arterial extravasation. No embolization was performed. PLAN: The patient should remain supine with legs straight for two hours. If patient continues to have downtrending hemoglobin, may consider repeat CTA. Bleeding may have stopped after correction of coagulopathy. I have personally reviewed this examination and agree with the resident/fellow physician's interpretation. Assessment & Plan Active Problems: Moderate mitral regurgitation (POA: Yes) Gastroesophageal reflux disease without esophagitis (POA: Yes) Carpal tunnel syndrome (POA: Yes) Senile osteoporosis (POA: Yes) Hyperparathyroidism, primary (HCC) (POA: Yes) Degeneration of lumbosacral intervertebral disc (POA: Yes) Anxiety state (POA: Yes) Dyslipidemia, goal LDL below 70 (POA: Yes) Varicose vein of leg (POA: Yes) Chronic diastolic heart failure (HCC) (POA: Yes) Hypotension due to hypovolemia (POA: Yes) Cardiac pacemaker in situ (POA: Yes) Paroxysmal atrial fibrillation (HCC) (POA: Yes) MARTI (obstructive sleep apnea) (POA: Yes) Moderate episode of recurrent major depressive disorder (HCC) (POA: Yes) Chronic kidney disease, stage 3b (HCC) (POA: Yes) Overview: Per CKD protocol History of colon cancer (POA: Yes) Tachy-kraig syndrome (HCC) (POA: Yes) History of DVT (deep vein thrombosis) (POA: Yes) Overview: 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 P.r.n. Ativan 0.25 mg Tylenol p.r.n. RASS Goal: 0 RASS Assessment: 0 Alert and Calm (09/22/23 1600) Pain Control: Acetaminophen p.r.n. Current Pain Score: 0 (no pain) (09/22/23 1700) Paralytic: None Delirium/Confusion Assessment: CAM-ICU Positive?: No (09/22/23 1600) PULMONARY / RESPIRATORY: MARTI Unable tolerate CPAP, on nasal cannula q.h.s. Respiratory treatment protocol CARDIOVASCULAR: Paroxysmal atrial fibrillation on Coumadin History of tachy-kraig status post dual-chamber ppm 2018 CAD status post PCI in 2004 Hypertension Heart failure with moderately reduced ejection fraction EF 45% Grade 3 diastolic heart failure Grade 3 diastolic heart failure Moderate tricuspid regurgitation Moderate severe mitral regurgitation Dyslipidemia Holding ENTRY LEVEL DRAFTER aspirin Continue atorvastatin 40 mg daily, digoxin Lopressor 50 mg twice daily, we will up titrate as able Hold warfarin 2 mg q.h.s. Hold torsemide 15 mg daily GASTROINTESTINAL / HEPATOBILIARY: GERD History of hemicolectomy Continuing ENTRY LEVEL DRAFTER omeprazole Last Bowel Movement: 09/20/23 (per patient) (09/21/23 0600) Bowel Regimen: None Stress Ulcer Prophylaxis: N/A Diet / Nutrition: Heart healthy RENAL / METABOLIC / FLUIDS: Mild anion gap metabolic acidosis, secondary to lactic acidosis CKD stage 3b Lactate improved, no longer trending Appears to be at baseline creatinine Baseline Cr 1.1-1.3. Most Recent: Serum creatinine: 1.5 mg/dL (H) 09/22/23 0730 Estimated creatinine clearance: 23.9 mL/min (A) Monitor electrolytes at least daily. Replete electrolytes as indicated. Avoid Nephrotoxins including NSAIDS and IV contrast. Strict monitoring of fluid intake and output. Renal dosing and medication considerations adjusted for glomerular filtration rate. Daily weights. INFECTIOUS DISEASES: Leukocytosis History of C diff No evidence of acute infection at this time, patient asymptomatic, will monitor WBC Continue following culture data. Antibiotic Regimen: None End date of antibiotics: N/A ENDOCRINE: Hyperparathyroidism Blood Glucose Monitoring (BGM) Goal: 140-180. Inpatient Glycemic Control: None Most recent: 103 Home Diabetic Regimen: None HEMATOLOGIC: Retroperitoneal bleed, resolved INR supratherapeutic at 3.9 at OSH placing patient at risk for bleed Nontraumatic hematoma History of spontaneous right iliopsoas hematoma 2019 History of colon cancer status post hemicolectomy in 2021 History of right lower extremity DVT Chronic venous insufficiency Iron-deficiency anemia CBC Q12h, if hemoglobin continues to drop overnight get CTA abdomen/pelvis STAT Holding Coumadin We will start when hemoglobin has been stable Has received 1 unit whole blood Status post IR; no active bleed seen therefore no intervention/embolization Trending CBC Continue ENTRY LEVEL DRAFTER B12 and iron supplements VTE/DVT Prophylaxis: SCDs only MUSCULOSKELETAL/ P.T / O.T. / MOBILITY: Osteoporosis Follows with Rheumatology, on Prolia PT/OT DERMATOLOGIC / WOUND CARE: Wound care PRN LINES / DRAINS / TUBES: LINES ALL Duration Supplemental Airway Natural;Mask 5 days Peripheral Line Left;Lower;Posterior Arm 20 Gauge 1 day Peripheral Line Lower;Right 1 day List of services consulted/following: ADULT PHYSICAL THERAPY CONSULT IP ADULT OCCUPATIONAL THERAPY CONSULT IP CARE MANAGEMENT CONSULT IP ADULT PHYSICAL THERAPY CONSULT IP GLOBAL ISSUES: Code Status: Full Code Analgesia: protocol with control Sedation: N/A Nutrition: PO DVT Prophylaxis: Not indicated Stress Ulcer Prophylaxis: On ENTRY LEVEL DRAFTER omeprazole Glycemic Control: controlled - not in protocol Oral hygiene every four hours Chlorhexidine mouth rinse every twelve hours Central Line Necessity Reviewed: N/A Heller: N/A Disposition: keep in ICU Patient's decisional capacity: has capacity to make decisions Communication with Patient/Family: No meeting held. Goals of Care: stabilize hemodynamic status Patient was discussed with attending physician, DO Ramon Zavaleta DO Resident Physician This chart was completed in part utilizing [employer] Speech Voice Recognition Software. Grammatical errors, random word insertions, pronoun errors, and incomplete sentences are an occasional consequence of this system due to software limitations, ambient noise, and hardware issues. Any formal questions or concerns about the content, text, or information contained within the body of this dictation should be directly addressed to the provider for clarification. Attending Attestation: I have discussed the patient's management with the medical trainee and agree with the note. Please refer to the documented findings and plan of care. The patient's bedside service on 09/21 (this is a late entry) consisted of an evaluation. I was present and confirmed the findings of the history and exam. * Lala Buenrostro, PHARM Student - 09/21/2023 12:11 PM EDT Prior to Admission medications Medication Sig Last Dose Discont. Aspirin 81 MG Oral Tablet Delayed Release Take 1 Tablet by mouth in the morning. 09/20/2023 Bladder Control Pads Ex Absorb Use as directed. 09/20/2023 Digoxin 125 MCG Oral Tablet (Lanoxin) Take 1 Tablet by mouth once a day on Tuesday, Tuesday, and Tuesday only. 09/19/2023 Latanoprost 0.005 % Ophthalmic Solution (Xalatan) 1 Drop at bedtime. 09/19/2023 Magnesium Chloride 64 MG Oral Tablet Delayed Release (Mag-64) Take 1 Tablet by mouth in the morning. 09/20/2023 Metoprolol Succinate ER 100 MG Oral Tablet Extended Release 24 Hour (toPROL XL) Take 1 Tablet by mouth in the morning and 1 Tablet before bedtime. 09/20/2023 oxygen IN GAS Use 2 L/min(Oxygen) as directed at bedtime. 09/19/2023 Potassium Chloride ER 10 MEQ Oral Tablet Extended Release Take 1 Tablet by mouth in the morning. 09/20/2023 Sennosides-Docusate Sodium 8.6-50 MG Oral Tablet (Senexon-S) Take 2 Tablets by mouth in the morning. Past Month Torsemide 10 MG Oral Tablet (Demadex) Take 1 Tablet by mouth in the morning. 09/19/2023 Torsemide 5 MG Oral Tablet (Demadex) Take 1 Tablet by mouth in the morning. 09/19/2023 Warfarin Sodium 2 MG Oral Tablet (Coumadin) Take by mouth. 09/19/2023 FeroSul 325 (65 Fe) MG Oral Tablet Take 1 Tablet by mouth every other day. 09/20/2023 Cholecalciferol 25 MCG (1000 UT) Oral Capsule Take 2 Capsules by mouth in the morning. 09/20/2023 DULoxetine HCl 30 MG Oral Capsule Delayed Release Particles (Cymbalta) Take 1 Capsule by mouth in the morning. In the morning.. 09/20/2023 Omeprazole 20 MG Oral Capsule Delayed Release (PriLOSEC) Take 1 Capsule by mouth in the morning. Inthe morning.. 09/20/2023 Acetaminophen 325 MG Oral Tablet (Tylenol) Take by mouth 2 Tablets every 4 hours as needed for Fever >38C(100.5F), Pain, Mild, Pain, Moderate or Pain, Severe. 09/20/2023 Prolia 60 MG/ML Subcutaneous Solution Prefilled Syringe (Denosumab) Inject 60 mg under the skin once. Over 30 Days LORazepam 0.5 MG Oral Tablet (Ativan) Take 0.5 Tablets by mouth daily as needed for Anxiety. Atorvastatin Calcium 40 MG Oral Tablet (Lipitor) Take 1 Tablet by mouth at bedtime. 09/19/2023 Vitamin B-12 1000 MCG Oral Tablet (Cyanocobalamin) TAKE 1 TABLET BY MOUTH ON TUESDAY, TUESDAY AND Tuesday09/19/2023 * Kian Johnson DO - 09/21/2023 6:12 AM EDT CCM - PROGRESS [place] [facility] [address] Name: Miranda Coe [place] [facility] [id number] Date: 09/21/2023 Date of admission: 09/21/2023 Hospital length of stay: 0 days Subjective PATIENT DESCRIPTION: The patient is a 88 year old female with a medical history significant for permanent Afib on coumadin, history of RLE DVT, tachy-kraig syndrome s/p PPM 2017, CAD s/p PCI 2004, HFpEF (EF 45%), moderate TR, mod-sev MR, hypertension, CKD IIIA/B, MARTI on 2L qHS, history of colon cancer s/p hemicolectomy, hyperparathyroidism and anxiety/depression who presented as a transfer from [place] after noticing worsening left flank/hip pain after getting off a high stool. CT abdomen/pelvis was done which revealed active extravasation into a left sided [id number] retroperitoneal hematoma. En route, patient was noted to be hypotensive with SBP's in the 60's and mildly tachycardic prompting administration of 1U whole blood and she was given 2000 kcentra to reverse her warfarin. She was received by the ED at [facility] immediately taken to IR for definitive management of RP bleed. Hemodynamics appear within normal range off pressors. No embolization or intervention performed in IR due to no evidence of bleed observed. EVENTS OF NOTE: 09/20- admitted to ICU INTERIM HISTORY / SUBJECTIVE: This morning, patient evaluated at bedside. Patient was lying in bed comfortably, responding appropriately, and in no acute distress. Patient report endorsing mild left hip pain but report significant improvement compared to yesterday. She denied headaches, dizziness, visual changes, chest pain, SOB or abdominal pain. Objective CONSTITUTIONAL DATA / OBJECTIVE: Vital Signs (Most Recent): Pulse: 77 (09/21/23699) BP: 157/89 (09/21/23699) Resp: 17 (09/21/23699) Temp: 36.7 C (98.1 F) (09/21/23599) SpO2: 100 % (09/21/23699) Vital Signs (Last 24 Hours): Pulse Av.9 Min: 77 Max: 103 No data recorded Most Recent Systolic BP Av.9 mmHg Min: 87 mmHg Max: 159 mmHg Most Recent Diastolic BP Av.4 mmHg Min: 58 mmHg Max: 93 mmHg Resp Av.6 Min: 13 Max: 25 Most Recent Temperature Av.8 C Min: 36.72 C Max: 36.89 C SpO2 Av.3 % Min: 97 % Max: 100 % Intake & Output Summary (Last 24 hours): No intake or output data in the 24 hours ending 09/21/23 0756 Net IO Since Admission: No IO data has been entered for this period [09/21/23 06] Height & Weight: Height: 175.3 cm (5' 9") (09/21/23536) Weight: 78.2 kg (172 lb 6.4 oz) (09/21/23536) Weight change: Body mass index is 25.46 kg/m. Physical Examination: General: Patient in no apparent distress, obese HEENT: normocephalic, atraumatic Heart: regular rate and irregular rhythm; S1 and S2 present; no murmurs, rubs or gallops. Pulmonary: Lungs clear to auscultation bilaterally; no wheezes, rhonchi or crackles. Abdomen: Soft, non-tender, non-distended. Normal bowel sounds and no rebound or guarding. Extremities: bilateral nonpitting edema present at lower extremity with venous stasis. LLE pulses intact . No numbness. Neuro: AAOx3. Peripheral Line Left;Lower;Posterior Arm 20 Gauge (Active) Number of days: 0 Peripheral Line Lower;Right (Active) Number of days: 0 Laboratory Values: reviewed. -- Brief labs below include the 7 most recent results over the past week. Blood Gas: No results in the last 7 days - inpatent use only Chemistry Panel: Lab results within last 7 days (see chart for full results) Units 09/21/23 0325 09/21/23 0322 Sodium mmol/L 135 -- Potassium mmol/L 4.7 -- Potassium i-STAT mmol/L -- 4.7 Chloride mmol/L 103 -- CO2 mmol/L 20* -- CO2 i-STAT mmol/L -- 25 BUN mg/dL 28* -- BUN i-STAT mg/dL -- 29* Creatinine mg/dL 1.4* -- Creatinine i-STAT mg/dL -- 1.5* Estimated Glomerular Filtration Rate mL/min 36* -- Glucose mg/dL 207* -- Calcium mg/dL 9.7 -- Anion Gap mmol/L 12 -- Complete Blood Count: Lab results within last 7 days (see chart for full results) Units 09/21/23 0639 09/21/23 0325 WBC K/uL 9.43 12.94* HGB g/dL 10.7* 11.0* HCT % 35.7* 35.5* PLT K/uL 146 168 MCV fL 101.4 99.2 Cardiac Studies: Lab results within last 7 days (see chart for full results) Units 09/21/23 0325 Troponin T, High Sensitivity ng/L 48* Coagulation Studies: Lab results within last 7 days (see chart for full results) Units 09/21/23 0325 Prothrombin Time seconds 14.6 INR 1.1 Liver Function Panel: Lab results within last 7 days (see chart for full results) Units 09/21/23 0325 Albumin g/dL 3.5* Protein g/dL 5.8* Bilirubin, Total mg/dL 0.5 AST U/L 22 ALT U/L 15 Alkaline Phosphatase U/L 40 Infectious Studies: Lab results within last 7 days (see chart for full results) Units 09/21/23 0639 09/21/23 0325 Lactate, Whole Blood mmol/L 2.7* 2.8* Lactate mmol/L 3.1* -- Cultures: reviewed. Recent Cultures (2 Weeks) No lab values to display. Radiographic Studies: reviewed. IR ARTERIAL INTERVENTION Result Date: 09/21/2023 IMPRESSION: Diagnostic angiogram of the left iliolumbar, iliac artery branches, T11 intercostal, T12 subcostal, and L1-L5 lumbar arteries without evidence of active arterial extravasation. No embolization was performed. PLAN: The patient should remain supine with legs straight for two hours. If patient continues to have downtrending hemoglobin, may consider repeat CTA. Bleeding may have stopped after correction of coagulopathy. I have personally reviewed this examination and agree with the resident/fellow physician's interpretation. Assessment & Plan Active Problems: Moderate mitral regurgitation (POA: Yes) Gastroesophageal reflux disease without esophagitis (POA: Yes) Carpal tunnel syndrome (POA: Yes) Senile osteoporosis (POA: Yes) Hyperparathyroidism, primary (HCC) (POA: Yes) Degeneration of lumbosacral intervertebral disc (POA: Yes) Anxiety state (POA: Yes) Dyslipidemia, goal LDL below 70 (POA: Yes) Varicose vein of leg (POA: Yes) Chronic diastolic heart failure (HCC) (POA: Yes) Hypotension due to hypovolemia (POA: Yes) Cardiac pacemaker in situ (POA: Yes) Paroxysmal atrial fibrillation (HCC) (POA: Yes) MARTI (obstructive sleep apnea) (POA: Yes) Moderate episode of recurrent major depressive disorder (HCC) (POA: Yes) Chronic kidney disease, stage 3b (HCC) (POA: Yes) Overview: Per CKD protocol History of colon cancer (POA: Yes) Tachy-kraig syndrome (HCC) (POA: Yes) History of DVT (deep vein thrombosis) (POA: Yes) Overview: 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 and stage 3b chronic kidney disease (HCC) (POA: Yes) Overview: Per CKD protocol Essential (primary) hypertension (POA: Yes) History of hemicolectomy (POA: Unknown) Retroperitoneal bleed (POA: Unknown) POA = Present On Admission NEUROLOGICAL: History of anxiety/depression Continue duloxetine 30mg qAM PRN ativan 0.25mg Tylenol PRN PULMONARY / RESPIRATORY: Obstructive sleep apnea Unable to tolerate CPAP, on 2L nasal cannula qHS Respiratory driven protocol IS/flutter CARDIOVASCULAR: Paroxysmal Afib on coumadin History of tachy-kraig syndrome s/p dual chamber PPM 2017 CAD s/p PCI in 2004 Hypertension HFmrEF EF 45% Grade III diastolic heart failure Moderate tricuspid regurgitation Moderate-severe mitral regurgitation Dyslipidemia Hold ENTRY LEVEL DRAFTER aspirin Continue statin 40mg qD Resume digoxin 125mcg (3X weekly) Lopressor 50 mg BID will titrate as needed Hold warfarin 2mg qHS Hold torsemide 15mg qD GASTROINTESTINAL / HEPATOBILIARY: GERD History of hemicolectomy as below Bowel Regimen: Reassess in the next 24-48 hours Stress Ulcer Prophylaxis: ENTRY LEVEL DRAFTER PPI Diet / Nutrition: Resuming diet this AM RENAL / METABOLIC / FLUIDS: Mild anion gap metabolic acidosis 2/2 lactic acidosis CKD IIIA/B Trend lactate to resolution q6 hours Appears to be at baseline creatinine Serum creatinine: 1.4 mg/dL (H) 09/21/23 0325 Estimated creatinine clearance: 30.1 mL/min (A) Monitor electrolytes at least daily. Replete electrolytes as indicated Strict monitoring of fluid intake and output Renal dosing and medication considerations adjusted for glomerular filtration rate Daily weights INFECTIOUS DISEASES: History of C. Diff No active concerns ENDOCRINE: Hyperparathyroidism HEMATOLOGIC/ONCOLOGIC: Active retroperitoneal bleed, resolved Non-accidental hematoma History of spontaneous right iliopsoas hematoma 2019 History of colon cancer s/p hemicolectomy in 2021 History of RLE DVT Chronic venous insufficiency Iron deficiency anemia S/p 1U whole blood en route & Kcentra S/p IR; no active bleed seen therefore no intervention/embolization Trend CBC q6 hours and monitor hemodynamics Holding ENTRY LEVEL DRAFTER antihypertensives for now NPO for now, high risk for ileus Continue ENTRY LEVEL DRAFTER B12 & iron supplements VTE/DVT Prophylaxis: pneumatic compression devices alone due to chemoprophylaxis contraindication Holding coumadin for now. Need risk vs benefit discussion prior to discharge. MUSCULOSKELETAL/ P.T / O.T. / MOBILITY: Osteoporosis Follows with rheumatology, on Prolia PT/OT DERMATOLOGIC / WOUND CARE: Wound care PRN LINES / DRAINS / TUBES: LINES ALL Duration Supplemental Airway Natural;Mask 3 days Peripheral Line Left;Lower;Posterior Arm 20 Gauge <1 day Peripheral Line Lower;Right <1 day List of consulted services: ADULT PHYSICAL THERAPY CONSULT IP ADULT OCCUPATIONAL THERAPY CONSULT IP CARE MANAGEMENT CONSULT IP GLOBAL ISSUES: Code Status: Full Code Delirium/Confusion Assessment Method for ICU (CAM-ICU): CAM-ICU negative HOB Elevation: greater than 30 degrees Oral hygiene every four hours Chlorhexidine mouth rinse every twelve hours Central Line Necessity Reviewed: N/A Heller: N/A Disposition: keep in ICU Patient's decisional capacity: has capacity to make decisions Communication with Patient/Family: No meeting held. Goals of Care: decrease pain and discomfort and monitor hemodynamics Patient was discussed with DO Moni Hogan MD Resident Physician Attending Attestation: I have discussed the patient's management with the medical trainee and agree with the note. Please refer to the documented findings and plan of care. The patient's bedside service on 09/20 (this is a late entry) consisted of an evaluation. I was present and confirmed the findings of the history and exam. documented in this encounter H&P Notes * Melinda Mendez DO - 09/21/2023 5:45 AM EDT HISTORY & PHYSICAL EXAMINATION - Critical Care Medicine [facility] [address] Name: Miranda Coe Location: Date: 09/21/2023 Date of admission: 09/21/2023 PRESENTING PROBLEM/CHIEF COMPLAINT: Patient is an 88 year old female with a medical history significant for permanent Afib on coumadin, history of RLE DVT, tachy-kraig syndrome s/p PPM 2017, CAD s/p PCI 2004, HFpEF (EF 45%), moderate TR, mod-sev MR, hypertension, CKD IIIA/B, MARTI on 2L qHS, history of colon cancer s/p hemicolectomy, hyperparathyroidism and anxiety/depression who presented as a transfer from [place] after a fall. HISTORY OF PRESENT ILLNESS: Patient reportedly fell off a high stool and injured her left flank. CT abdomen/pelvis was done which revealed active extravasation into a left sided [id number] retroperitoneal hematoma. En route via [facility], patient was noted to be hypotensive with systolics in the 60's and became mildly tachycardic prompting administration of 1U whole blood and she was given 2000 kcentra to reverse her warfarin.She was received by the ED at [facility] and immediately taken to IR for definitive management of RP bleed. Hemodynamics appear within normal range off pressors. Upon arrival to the unit, patient mentating well, alert and oriented X 4. She states she never fellbut her left leg felt numb and painful while she was sitting on a slot machine chair and she still has left hip pain but denies any abdominal or flank pain. Otherwise denies dizziness, lightheadedness, changes in vision. Blood pressure with systolics in the 140's and MAP's in the 90's. No embolization/intervention performed in IR due to no evidence of bleed observed. Subjective PAST MEDICAL HISTORY: Past Medical History: Diagnosis Date Acute pulmonary embolism (HCC) 07/17/2021 Allergic rhinitis 10/06/2012 Anxiety state 05/02/2009 Asthma, severity to be determined Atrial premature beats Benign neoplasm of colon 1991 hyperplastic polyp Benign neoplasm of skin Benign paroxysmal vertigo Cardiac pacemaker in situ 04/19/2017 Coronary atherosclerosis of [place] coronary artery 02/01 Degeneration of lumbosacral intervertebral [...] unspecified (HCC) 07/02/2008 RLP Parathyroid adenoma resection Benjy PellDO padmini July 02, 2008 Hypertension goal BP (blood [...] 08/29 low B12 level Vitamin D deficiency PAST SURGICAL HISTORY: Past Surgical History: Procedure Laterality Date CATHETERIZE LEFT HEART THRU SKIN 02/18/2005 Dr. Gunter - [facility] [place] 1 VIEW 03/19/2001 PAH--the heart appears [...] - invasive adenocarcinoma, adenomatous polyps, diverticulosis / [facility] COLONOSCOPY, DIAGNOSTIC (RECTUM) N/A 06/24/2022 multiple polyps/few angiodysplastic lesions ascending colon/hemorrhoids/biopsies show adenomatous polyps/recall 6 months/Colonoscopy/[place] COLONOSCOPY, DIAGNOSTIC (RECTUM) N/A 12/09/2022 poor prep/biopsies normal/Colonoscopy/[place] COLONOSCOPY, SURGERY REFERRAL OP 07/30/2003 Dr. Schultz - normal EGD, FLEXIBLE, DIAGNOSTIC 01/15/2021 normal bx / [facility] EXPLORE PARATHYROID GLANDS 07/02/2008 PARATHYROIDECTOMY performed by BENJY SMITH at [place] [facility] [place] FACIAL FX INFORMATION L hand tumor INSERT/REPLACE PACEMAKER,ATRIAL/VENTRICULAR Left 04/11/2017 NEW DDD PACEMAKER IMPLANT performed by Elda Patterson DO at OR [facility] INSERTION OF LENS PROSTHESIS 07/05/2012 right eye, dr ortega [facility]NEE ARTHROSCOPY, DIAGNOSTIC 01/28/1994 left knee LAPAROSCOPIC COLECTOMY PARTIAL WITH ANASTOMOSIS 04/27/2021 right hemicolectomy, Dr. Salamanca [facility] CARDIAC THALLIUM STRESS, OUTSIDE FILMS 01/28/1998 negative PARTIAL REMOVAL OF COLON Right 04/27/2021 right hemicolectomy with anastamosis for ascending colon cancer--Dr. Ashok Salamanca PERC STENT/CHEST VERTEBRAL ARTERY, INITIAL 02/18/2005 LAD INSPECTOR METAL CAN VEIN LIGATION W/ GRAFT, 1 LEG LLE REMOVE TONSILS & ADENOIDS, AGE 12+ SIGMOIDOSCOPY, DIAGNOSTIC 07/06/93 & 10/06/98 Dr. Schultz TOTAL ABD HYSTERECTOMY W/WO REMOVAL OF TUBE(S) 30 yo prolapse - has ovaries in UPPER GI ENDOSCOPY 2020 normal stomach, biopsied. normal examined duodenum, normal examined jejunem VASC RENAL VASCULAR SCAN-COMPLETE 06/29/2007 no renal artery stenosis FAMILY HISTORY: Family History Problem Relation Name Age of Onset Diabetes Brother Cancer Mother lymphoma Diabetes Sister Arthritis Son rheumatic fever, Osteo Arthritis Other (Other) Son ruptured diaphragm as , lung collapsed Diabetes Son borderline SOCIAL HISTORY: Social History Tobacco Use Smoking status: Never Smokeless tobacco: Never Vaping Use Vaping status: Never Used Substance Use Topics Alcohol use: Not Currently Drug use: No PRIOR TO ADMISSION MEDS: Current Outpatient Medications Medication Instructions Acetaminophen (TYLENOL) 650 mg, Oral, Q4H PRN Aspirin 81 MG Oral Tablet Delayed Release (Aspirin Low Dose) TAKE ONE TABLET IN THE MORNING atorvaSTATin (LIPITOR) 40 mg, Oral, HS Bladder Control Pads Ex Absorb Daily use of urinary incontinence Cholecalciferol 2,000 Units, Oral, Daily(AM) denosumab (PROLIA) 60 mg, Subcutaneous, ONCE Diclofenac Sodium 1 % External Gel (Voltaren) Apply to the affected area daily Digoxin 125 MCG Oral Tablet (Lanoxin) One tablet three days weekly DULoxetine (CYMBALTA) 30 mg, Oral, Daily(AM), In the morning. FeroSul 325 (65 Fe) MG Oral Tablet 1 Tablet, Oral, EVERY OTHER DAY Latanoprost 0.005 % Ophthalmic Solution (Xalatan) ONE DROP IN EACH EYE AT BEDTIME LORAzepam (ATIVAN) 0.25 mg, Oral, DAILY PRN Magnesium Chloride 64 MG Oral Tablet 1 Tablet, Oral, Daily(Non-Specified) metoprolol succinate XL (TOPROL XL) 100 mg, Oral, BID (.AM/PM) omeprazole (PRILOSEC) 20 mg, Oral, Daily(AM), In the morning. oxygen GAS 2 L/min(Oxygen), Nasal cannula, HS Potassium Chloride ER 10 MEQ Oral Capsule Extended Release 10 mEq, Oral, Daily(AM) Sennosides-Docusate Sodium 8.6-50 MG Oral Tablet (Senexon-S) 2 Tablets, Oral, QHS Torsemide (DEMADEX) 10 mg, Oral, Daily(AM) Torsemide 5 MG Oral Tablet (Demadex) One tablet along with 10mg to equal 15mg daily Vitamin B-12 1000 MCG Oral Tablet (Cyanocobalamin) TAKE 1 TABLET BY MOUTH ON TUESDAY, TUESDAY AND TUESDAY Warfarin Sodium (JANTOVEN) 2-4 mg, Oral, [id number] ALLERGIES: Alendronate sodium, Morphine and codeine, Thiazide-type diuretics, Boniva [ibandronate sodium], Zetia [ezetimibe], Zocor [simvastatin], Amiodarone, Iodinated contrast media, Metoprolol tartrate, Red dye, and Erythromycin ROS: Review of Systems Constitutional: Negative for chills and fever. HENT: Negative for congestion and hoarse voice. Eyes: Negative for blurred vision and double vision. Cardiovascular: Positive for leg swelling. Negative for chest pain and syncope. Respiratory: Negative for cough and shortness of breath. Musculoskeletal: Positive for back pain and joint pain. Negative for falls. Gastrointestinal: Negative for abdominal pain, constipation, diarrhea, nausea and vomiting. Neurological: Negative for dizziness, light-headedness and numbness. Psychiatric/Behavioral: Negative for altered mental status. Objective CONSTITUTIONAL DATA / OBJECTIVE: Vital Signs (Most Recent): Pulse: 90 (09/21/23 033) BP: 126/58 (09/21/23 0315) Resp: 19 (09/21/23329) Temp: 36.7 C (98.1 F) (09/21/23308) SpO2: 98 % (09/21/23329) Vital Signs (Last 24 Hours): Pulse Av Min: 85 Max: 93 Most Recent Systolic BP Av.7 mmHg Min: 87 mmHg Max: 126 mmHg Resp Av.3 Min: 18 Max: 22 Most Recent Temperature Av.72 C Min: 36.72 C Max: 36.72 C SpO2 Av % Min: 97 % Max: 99 % Intake & Output Summary (Last 24 hours): No intake or output data in the 24 hours ending 09/21/23405 Net IO Since Admission: No IO data has been entered for this period [09/21/23405] Height & Weight: Weight: 74.4 kg (164 lb) (09/21/23 0309) Wt Readings from Last 3 Encounters: 09/21/23 74.4 kg (164 lb) 09/20/23 74.4 kg (164 lb) 09/07/23 74.8 kg (165 lb) Weight change: Body mass index is 25.69 kg/m. Physical Examination: Physical Exam Constitutional: General: She is not in acute distress. Appearance: Normal appearance. She is obese. She is not ill-appearing. HENT: Head: Normocephalic and atraumatic. Eyes: General: No scleral icterus. Extraocular Movements: Extraocular movements intact. Pupils: Pupils are equal, round, and reactive to light. Cardiovascular: Rate and Rhythm: Normal rate. Rhythm irregular. Pulses: Normal pulses. Heart sounds: No murmur heard. Pulmonary: Effort: Pulmonary effort is normal. No respiratory distress. Breath sounds: Normal breath sounds. No wheezing, rhonchi or rales. Abdominal: General: Abdomen is flat. There is no distension. Palpations: Abdomen is soft. There is no mass. Tenderness: There is no abdominal tenderness. Musculoskeletal: General: Swelling present. Skin: General: Skin is warm and dry. Comments: Bilateral nonpitting lower extremity edema with venous statis dermatitis and engorged veins Neurological: Mental Status: She is alert and oriented to person, place, and time. Mental status is at baseline. GCS: GCS eye subscore is 4. GCS verbal subscore is 5. GCS motor subscore is 6. Laboratory Values: reviewed. BMP remarkable for Cr 1.4 (appears to be baseline) Mild AGMA, gap 12, bicarb 20 Lactic acid elevated to 2.8 INR 1.1 WBC 12.9 Hgb 11, appears to be baseline Platelets 168 Digoxin level 0.8 AST/ALT 22/15 respectively Tbili 40 Radiographic Studies: reviewed. CT Abdomen/Pelvis with IV contrast from [place] with reported active extravasation into left sided [id number] retroperitoneal hematoma. Images available on [employer]. Assessment & Plan CRITICAL CARE SYSTEM REVIEW & ASSESSMENT/PLAN: Active Problems: Moderate mitral regurgitation (POA: Yes) Gastroesophageal reflux disease without esophagitis (POA: Yes) Carpal tunnel syndrome (POA: Yes) Senile osteoporosis (POA: Yes) Hyperparathyroidism, primary (HCC) (POA: Yes) Degeneration of lumbosacral intervertebral disc (POA: Yes) Anxiety state (POA: Yes) Dyslipidemia, goal LDL below 70 (POA: Yes) Varicose vein of leg (POA: Yes) Chronic diastolic heart failure (HCC) (POA: Yes) Cardiac pacemaker in situ (POA: Yes) Paroxysmal atrial fibrillation (HCC) (POA: Yes) MARTI (obstructive sleep apnea) (POA: Yes) Moderate episode of recurrent major depressive disorder (HCC) (POA: Yes) Chronic kidney disease, stage 3b (HCC) (POA: Yes) Overview: Per CKD protocol History of colon cancer (POA: Yes) Tachy-kraig syndrome (HCC) (POA: Yes) History of DVT (deep vein thrombosis) (POA: Yes) Overview: 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 and stage 3b chronic kidney disease (HCC) (POA: Yes) Overview: Per CKD protocol Essential (primary) hypertension (POA: Yes) History of hemicolectomy (POA: Unknown) Retroperitoneal bleed (POA: Unknown) POA = Present On Admission NEUROLOGICAL: History of anxiety/depression Continue duloxetine 30mg qAM PRN ativan 0.25mg PULMONARY / RESPIRATORY: Obstructive sleep apnea Unable to tolerate CPAP, on 2L nasal cannula qHS Respiratory driven protocol IS/flutter CARDIOVASCULAR: Paroxysmal Afib on coumadin History of tachy-kraig syndrome s/p dual chamber PPM 2017 CAD s/p PCI in 2004 Hypertension HFmrEF EF 45% Grade III diastolic heart failure Moderate tricuspid regurgitation Moderate-severe mitral regurgitation Dyslipidemia Hold ENTRY LEVEL DRAFTER aspirin Continue statin 40mg qD Hold metoprolol 100mg BID, digoxin 125mcg (3X weekly), warfarin 2mg qHS Dig level 0.8 Hold torsemide 15mg qD GASTROINTESTINAL / HEPATOBILIARY: GERD History of hemicolectomy as below Bowel Regimen: Reassess in the next 24-48 hours Stress Ulcer Prophylaxis: ENTRY LEVEL DRAFTER PPI Diet / Nutrition: NPO RENAL / METABOLIC / FLUIDS: Mild anion gap metabolic acidosis 2/2 lactic acidosis CKD IIIA/B Trend lactate to resolution q6 hours Appears to be at baseline creatinine Avoid nephrotoxins as able INFECTIOUS DISEASES: History of C. Diff No active concerns ENDOCRINE: Hyperparathyroidism HEMATOLOGIC/ONCOLOGIC: Active retroperitoneal bleed, resolved History of spontaneous right iliopsoas hematoma 2019 History of colon cancer s/p hemicolectomy in 2021 History of RLE DVT Chronic venous insufficiency Iron deficiency anemia S/p 1U whole blood en route & Kcentra S/p IR; no active bleed seen therefore no intervention/embolization Trend CBC q6 hours and monitor hemodynamics Holding ENTRY LEVEL DRAFTER antihypertensives for now NPO for now, high risk for ileus Continue ENTRY LEVEL DRAFTER B12 & iron supplements VTE/DVT Prophylaxis: pneumatic compression devices alone due to chemoprophylaxis contraindication Holding coumadin, defer decision to day team to determine if patient should be on AC going forward MUSCULOSKELETAL/ P.T / O.T. / MOBILITY: Osteoporosis Follows with rheumatology, on Prolia PT/OT once appropriate LINES / DRAINS / TUBES: LINES ALL Duration Supplemental Airway Natural;Mask 2353 days List of services consulted/following: ADULT PHYSICAL THERAPY CONSULT IP ADULT OCCUPATIONAL THERAPY CONSULT IP CARE MANAGEMENT CONSULT IP GLOBAL ISSUES: Code Status: Full Code Central Line Necessity Reviewed: N/A Arterial Line Necessity Reviewed: N/A Heller: N/A Disposition: keep in ICU Patient's decisional capacity: has capacity to make decisions Communication with Patient/Family: No meeting held. Patient was discussed with attending physician, Dr. Kellie Mendez DO Critical Care Fellow Associated attestation - Kellie Vilchis MD - 09/21/2023 6:24 AM EDT I saw and evaluated the patient today. I have reviewed the resident/fellow physician note and agree. Miranda is a 88 y/o F with h/o MARTI, intolerant of CPAP, nocturnal hypoxia on 2 LPM, Permanent atrial fibrillation, s/p pacemaker, CAD, HFpEF, Anxiety, HTN, CKD-3, GERD, Colon cancer s/p hemicolectomy, h/o RLE DVT, high probability PE 05/19, H/o significant spontaneous right psoas muscle hematoma in 09/2019, noticed worsening left flank/hip pain after getting off a high stool, was seen at [facility], noted to have retroperitoneal hematoma with active extravasation, [place] [facility] [place] Patient underwent angiography with no active bleeding noted from left T11-L5 arteries, iliolumbar or left iliac artery branches. Embolization was not performed. Transferred to ICU for closer monitoring. Spontaneous retroperitoneal hematoma in the setting of Coumadin use Acute blood loss anemia Hypotension: improved with PRBC x 1 prior to arrival to [facility] Lactic acidosis -no active bleeding noted during angiography, patient did receive Kcentra prior to arrival to [facility] -NPO -monitor Hb trend Q6h x 24 hours, LA trend -maintain MAP >65 -hold antihypertensives for now, resume prn -holding Coumadin -pain Mx with IV dilaudid prn Critical care time 35 min * Ian Coy MD - 09/21/2023 3:59 AM EDT PRE-SEDATION ASSESSMENT PRE-SEDATION ASSESSMENT: Arterial Angiogram And Embolization Level of sedation planned: Moderate Patient's allergies reviewed: Yes H&P Review / Interval Note Documentation: I have reviewed the H&P previously performed, examined the patient today, and there are no new findings. Difficulty with sedation / anesthesia: No Sleep apnea: Yes History of snoring: Yes History of difficult intubation: No Decreased ROM neck flexion/extension: No Tracheal deviation: No Decreased ability to open mouth / TMJ: No Loose teeth / dentures / partial: Yes Congenital deformities / abnormalities: No Dysphagia: No Mallampati Classification: III - soft palate, base of uvula visible Chest: Clear Heart: Regular Rhythm Adequate Vascular Access: Yes ASA Risk Stratification (Select One): ASA 3 - Severe systemic disease, definite functional limitations Procedure: Emergent The patient was identified and the procedure verified: Yes The patient was reevaluated immediately prior to the sedation: 09/21/2023 3:59 AM * Kiersten Mays MD - 09/21/2023 3:48 AM EDT HISTORY & PHYSICAL - Interventional Radiology Service [address] [address] Name: Miranda Coe Location: Date: 09/21/2023 Time: 3:48 AM HISTORY OF PRESENT ILLNESS: 88 y/o female on warfarin with large left retroperitoneal hematoma with active extravasation on outside hospital imaging presents to [facility] for arteriogram with possible embolization. Past Medical History: Diagnosis Date Acute pulmonary embolism (HCC) 07/17/2021 Allergic rhinitis 10/06/2012 Anxiety state 05/02/2009 Asthma, severity to be determined Atrial premature beats Benign neoplasm of colon 1991 hyperplastic polyp Benign neoplasm of skin Benign paroxysmal vertigo Cardiac pacemaker in situ 04/19/2017 Coronary atherosclerosis of [place] coronary artery 02/01 Degeneration of lumbosacral intervertebral [...] Hypercalcemia 11/04 Hyperparathyroidism, primary (HCC) Hyperparathyroidism, unspecified ([facility]) 07/02/2008 RLP Parathyroid adenoma resection Benjy Smith, July 02, 2008 Hypertension goal BP (blood pressure) < 140/80 02/25/2014 Ischemic cardiomyopathy 02/01 LVEF 40 % on cath Kidney disease, chronic, stage III (GFR 30-59 ml/min) ([facility]) 04/08/2015 LAE (left atrial enlargement) 06/03/2021 Duplicate Localized, 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 Gunter - [facility] [place] 1 VIEW 03/19/2001 PAH--the heart appears [...] - invasive adenocarcinoma, adenomatous polyps, diverticulosis / [facility] COLONOSCOPY, DIAGNOSTIC (RECTUM) N/A 06/24/2022 multiple polyps/few angiodysplastic lesions ascending colon/hemorrhoids/biopsies show adenomatous polyps/recall 6 months/Colonoscopy/[place] COLONOSCOPY, DIAGNOSTIC (RECTUM) N/A 12/09/2022 poor prep/biopsies normal/Colonoscopy/[place] COLONOSCOPY, SURGERY REFERRAL OP 07/30/2003 Dr. Schultz - normal EGD, FLEXIBLE, DIAGNOSTIC 01/15/2021 normal bx / [facility] EXPLORE PARATHYROID GLANDS 07/02/2008 PARATHYROIDECTOMY performed by BENJY SMITH at [place] [facility] INFORMATION FACIAL FX INFORMATION L hand tumor INSERT/REPLACE PACEMAKER,ATRIAL/VENTRICULAR Left 04/11/2017 NEW DDD PACEMAKER IMPLANT performed by Elda Patterson DO at OR [facility] INSERTION OF LENS PROSTHESIS 07/05/2012 right eye, dr ortega [facility]NEE ARTHROSCOPY, DIAGNOSTIC 01/28/1994 left knee LAPAROSCOPIC COLECTOMY PARTIAL WITH ANASTOMOSIS 04/27/2021 right hemicolectomy, Dr. Salamanca [facility] CARDIAC THALLIUM STRESS, OUTSIDE FILMS 01/28/1998 negative PARTIAL REMOVAL OF COLON Right 04/27/2021 right hemicolectomy with anastamosis for ascending colon cancer--Dr. Ashok Salamanca PERC STENT/CHEST VERTEBRAL ARTERY, INITIAL 02/18/2005 LAD INSPECTOR METAL CAN VEIN LIGATION W/ GRAFT, 1 LEG LLE [...] on file Occupational History Occupation: NA Employer: [employer] Comment: retired 06/28/99 Tobacco Use Smoking status: Never Smokeless tobacco: Never Vaping Use Vaping status: Never Used Substance and Sexual Activity Alcohol use: Not [...] Social Determinants of Health Financial Resource Strain: Low Risk (09/07/2023) Financial Resource Strain Do you have any trouble paying for your medications, or do you think you might in the future? (Adult - for ages 18 years and over): No Does your family have trouble paying for medicine? (Household - for ages 0-17 years): Not on file Food Insecurity: No Food Insecurity (09/07/2023) Food Insecurity Do you need food for this week? (Adult - for ages 18 years and over): No Are you able to get enough food for your family? (Household - for ages 0-17 years): Not on file Does your family need food this week? (Household - for ages 0-17 years): Not on file Do you always have enough food for your family? (Household - for ages 0-17 years): Not on file Transportation Needs: No Transportation Needs (09/07/2023) Transportation Needs Do you have trouble getting a ride to medical visits or work? (Adult - for ages 18 years and over):Not on file Does your family have a hard time getting a ride to doctors visits? (Household - for ages 0-17 years): Not on file Has lack of transportation kept you from medical appointments, meetings, work, or from getting things needed for daily living? Check all that apply. (Adult - for ages 18 years and over): No Do you (or your family) have trouble finding or paying for a ride (transportation)? (Household - for ages 0-17 years): Not on file Social Connections: Socially Integrated (09/07/2023) Social Connections How often do you feel lonely or isolated from those around you? (Adult - for ages 18 years and over): Rarely Housing Stability: Low Risk (09/07/2023) Housing Stability Do you currently live in a penitentiary or have no steady place to sleep at night? (Adult - for ages 18 years and over): No Do you think you are at risk of becoming homeless? (Adult - for ages 18 years and over): Not on file Does your family worry about paying for your home or becoming homeless? (Household - for ages 0-17 years): Not on file Are you homeless or worried that you might be in the future? (Adult - for ages 18 years and over): No Are you (or your family) homeless or worried that you might be in the future? (Household - for ages0-17 years): Not on file Family History Problem Relation Name Age of Onset Diabetes Brother Cancer Mother lymphoma Diabetes Sister Arthritis Son rheumatic fever, Osteo Arthritis Other (Other) Son ruptured diaphragm as infant, lung collapsed Diabetes Son borderline Review of patient's allergies indicates: Allergen Reactions [...] Red Dye Hives Erythromycin Nausea/vomiting Upset stomach No current facility-administered medications for this encounter. Current Outpatient Medications Medication Sig Dispense Refill FeroSul 325 (65 Fe) MG Oral Tablet Take 1 Tablet by mouth every other day. LORazepam 0.5 MG Oral Tablet (Ativan) Take 0.5 Tablets by mouth daily as needed for Anxiety. 15 Tablet 0 Potassium Chloride ER 10 MEQ Oral Capsule Extended Release Take 1 Capsule by mouth in the morning. 30 Capsule 1 Aspirin 81 MG Oral Tablet Delayed Release (Aspirin Low Dose) TAKE ONE TABLET IN THE MORNING 90 Tablet 3 Atorvastatin Calcium 40 MG Oral Tablet (Lipitor) Take 1 Tablet by mouth at bedtime. 90 Tablet 3 Cholecalciferol 25 MCG (1000 UT) Oral Capsule Take 2 Capsules by mouth in the morning. 180 Capsule 1 Diclofenac Sodium 1 % External Gel (Voltaren) Apply to the affected area daily 350 g 2 Digoxin 125 MCG Oral Tablet (Lanoxin) One tablet three days weekly 90 Tablet 1 DULoxetine HCl 30 MG Oral Capsule Delayed Release Particles (Cymbalta) Take 1 Capsule by mouth in the morning. In the morning.. 90 Capsule 3 Latanoprost 0.005 % Ophthalmic Solution (Xalatan) ONE DROP IN EACH EYE AT BEDTIME 2.5 mL 12 Magnesium Chloride 64 MG Oral Tablet Take 1 Tablet by mouth daily. 90 Tablet 1 Metoprolol Succinate ER 100 MG Oral Tablet Extended Release 24 Hour (Toprol XL) Take 1 Tablet by mouth in the morning and 1 Tablet before bedtime. 180 Tablet 0 Omeprazole 20 MG Oral Capsule Delayed Release (PriLOSEC) Take 1 Capsule by mouth in the morning. Inthe morning.. 90 Capsule 1 Sennosides-Docusate Sodium 8.6-50 MG Oral Tablet (Senexon-S) Take 2 Tablets by mouth every night atbedtime. 180 Tablet 0 Torsemide 10 MG Oral Tablet (Demadex) Take 1 Tablet by mouth in the morning. 90 Tablet 1 Torsemide 5 MG Oral Tablet (Demadex) One tablet along with 10mg to equal 15mg daily 90 Tablet 1 Vitamin B-12 1000 MCG Oral Tablet (Cyanocobalamin) TAKE 1 TABLET BY MOUTH ON TUESDAY, TUESDAY AND TUESDAY 30 Tablet 11 Warfarin Sodium 2 MG Oral Tablet (Jantoven) Take 1-2 Tablets by mouth every evening. 180 Tablet 1 Bladder Control Pads Ex Absorb Daily use of urinary incontinence 72 Each 11 Acetaminophen 325 MG Oral Tablet (Tylenol) Take by mouth 2 Tablets every 4 hours as needed for Fever >38C(100.5F), Pain, Mild, Pain, Moderate or Pain, Severe. 100 Tablet 1 oxygen GAS Use 2 L/min(Oxygen) as directed at bedtime. denosumab (PROLIA) 60 MG/ML injection Inject 60 mg under the skin once. 1 Syringe 0 REVIEW OF SYSTEMS: Denies fever, chills, headaches, passing out, trouble swallowing food, cough, sore throat, chest pain, palpitation, shortness of breath, abdominal pain, nausea, vomiting, rashes, symptoms of depression. OBJECTIVE: Physical Exam Vital Signs : Blood pressure 126/58, pulse 90, temperature 36.7 C (98.1 F), temperature source Tympanic, resp. rate 19, weight 74.4 kg (164 lb), SpO2 98%. General : Alert & oriented. HEENT : Oral mucosa moist, PERRLA, EOM intact. CVS : RR Chest : Normal respiratory effort. Abdomen : Soft, non tender, non distended LABS: CBC Results: PT INR Results: Results for orders placed or performed in visit on 08/31/23 PT INR Result Value Ref Range Prothrombin Time 25.6 (H) 11.6 - 15.2 seconds INR 2.3 (H) 0.8 - 1.2 Results for orders placed or performed in visit on 07/20/23 PT INR Result Value Ref Range Prothrombin Time 24.0 (H) 11.6 - 15.2 seconds INR 2.1 (H) 0.8 - 1.2 Results for orders placed or performed in visit on 06/17/23 PT INR Result Value Ref Range Prothrombin Time 22.5 (H) 11.6 - 15.2 seconds INR 2.0 (H) 0.8 - 1.2 BUN Results: Lab Results Component Value Date/Time BUN - [facility] 33 (H) 08/17/2023 11:45 AM BUN - [facility] 26 (H) 07/26/2023 11:18 AM BUN - [facility] 30 (H) 07/19/2023 09:54 AM BUN - [facility] 13 01/30/2020 01:01 PM BUN - [facility] 11 11/22/2019 12:28 PM BUN - [facility] 9 10/31/2019 01:05 PM BUN POCT - [facility] 29 (H) 09/21/2023 03:22 AM Creatinine Results: Lab Results Component Value Date/Time CREATININE ([facility]) 0.7 06/13/1997 06:44 PM CREATININE - [facility] 1.3 (H) 08/17/2023 11:45 AM CREATININE - [facility] 1.3 (H) 07/26/2023 11:18 AM CREATININE - [facility] 1.2 (H) 07/19/2023 09:54 AM CREATININE - [facility] 1.0 01/30/2020 01:01 PM CREATININE - [facility] 1.1 (H) 11/22/2019 12:28 PM CREATININE - [facility] 1.0 10/31/2019 01:05 PM CREATININE PEMA 12 06/30/2018 02:07 PM CREATININE PEMA 127 02/08/2017 11:38 AM CREATININE POCT - [facility] 1.5 (H) 09/21/2023 03:22 AM CREATININE, 24 HOUR URINE 788 12/13/2022 04:12 PM CREATININE, 24 HOUR URINE 603 10/09/2021 10:18 AM CREATININE, RANDOM URINE - [facility] 69 08/25/2023 02:22 PM CREATININE, RANDOM URINE - [facility] 107 07/19/2022 11:02 AM CREATININE, RANDOM URINE - [facility] 31 09/28/2021 02:50 PM CREATININE, RANDOM URINE - [facility] 145 04/24/2019 02:48 PM CREATININE, RANDOM URINE - [facility] 80 11/22/2018 10:38 AM CREATININE, RANDOM URINE - [facility] 404 12/06/2017 01:58 PM CREATININE-OUTSIDE LAB 1.20 (A) 10/15/2019 12:00 AM CREATININE-OUTSIDE LAB 0.94 05/09/2019 12:00 AM CREATININE-OUTSIDE LAB 1.00 12/11/2016 12:00 AM Potassium Results: Lab Results Component Value Date/Time POTASSIUM - [facility] 4.6 08/17/2023 11:45 AM POTASSIUM - [facility] 5.0 07/26/2023 11:18 AM POTASSIUM - [facility] 5.8 (H) 07/19/2023 09:54 AM POTASSIUM - [facility] 3.8 01/30/2020 01:01 PM POTASSIUM - [facility] 4.0 11/22/2019 12:28 PM POTASSIUM - [facility] 4.1 10/31/2019 01:05 PM POTASSIUM POCT - [facility] 4.7 09/21/2023 03:22 AM POTASSIUM, 24 HOUR URINE 24 12/13/2022 04:12 PM POTASSIUM, 24 HOUR URINE 46 10/09/2021 10:18 AM POTASSIUM-OUTSIDE LAB 3.9 10/15/2019 12:00 AM POTASSIUM-OUTSIDE LAB 3.8 05/09/2019 12:00 AM POTASSIUM-OUTSIDE LAB 4.0 12/11/2016 12:00 AM INFORMED CONSENT: Yes PRE-SEDATION ASSESSMENT: Level of sedation planned: Moderate H&P Review / Interval Note Documentation: There is no H&P on file. Difficulty with sedation / anesthesia: No Sleep apnea: Yes History of snoring: Yes History of difficult intubation: No Decreased ROM neck flexion/extension: Yes Tracheal deviation: No Decreased ability to open mouth / TMJ: No Loose teeth / dentures / partial: Yes Congenital deformities / abnormalities: No Dysphagia: No Mallampati Classification: III - soft palate, base of uvula visible ASA Risk Stratification (Select One): ASA 3 - Severe systemic disease, definite functional limitations Procedure: Emergent The patient was identified and the procedure verified: Yes The patient was reevaluated immediately prior to the sedation: 09/21/2023 3:59 AM IMPRESSION/PLAN: 88 y/o female on warfarin with large left retroperitoneal hematoma with active extravasation on outside hospital imaging presents to [facility] for arteriogram with possible embolization. Plan: - Will proceed with arteriogram with possible embolization under fluoroscopy. Kiersten Mays MD documented in this encounter Procedure Notes * Ian Coy MD - 09/21/2023 5:24 AM EDT PROCEDURE NOTE - Interventional Radiology [address] [address] Name: Miranda Coe Location: IP1/IP1 Date: 09/21/2023 Time: 5:24 AM PROCEDURE: arterial angiography NON LICENSED NUCLEAR PLANT OPERATOR: Dr. Ian Coy and Dr Kiersten Mays ASSISTANTS: none ANESTHESIA: local conscious sedation COMPLICATIONS: none SPECIMEN: none ESTIMATED BLOOD LOSS: less than 100 ml FINDINGS: no active bleed from LEFT T11-L5 arteries. No bleed from iliolumbar or left iliac artery branches. No embolization performed. If patient continues to have downtrending Hg, consider repeat study. Bleed may have resolved with reversal of AC at outside hospital with Kcentra. * Xenia Rojo MD - 09/21/2023 3:36 AM EDTAssociated Order(s): EKG REASON FOR STUDY: pain CONCLUSIONS: Atrial fibrillation Left ventricular hypertrophy Inferolateral ST-t abnormality consider inferolateral ischemia Abnormal ECG When compared with ECG of 12-May-2023 14:27, Criteria for Septal infarct are no longer Present T wave inversion more evident in Inferolateral leads Ventricular Rate: 96 QRS Duration: 98 QT/QTc: 380/480 ms P-R-T [place]: 0 : 6 : 224 degrees documented in this encounter Consult Notes * Kristel Marcus RN - 09/26/2023 11:15 AM EDTAssociated Order(s): WOUND/OSTOMY CONSULT IP Wound / Ostomy Nurse Consult Note Wound Ostomy asked to see this 88 year old patient for sacrum. Recommendations: Thin layer of moisture barrier cream to sacrum and buttocks Q shift and prn with cleansing Turn and reposition Q 2 hours Limit time sitting to < 2 hours at a time; utilize waffle/bubble cushion while sitting Heel elevation off mattress at all times -utilize offloading heel boots as needed Call with changes in wound appearance or new concerns. Admitted 09/21/2023 for pain. PMH significant for Past Medical History: Diagnosis Date Acute pulmonary embolism (HCC) 07/17/2021 Allergic rhinitis 10/06/2012 Anxiety state 05/02/2009 Asthma, severity to be determined Atrial premature beats Benign neoplasm of colon 1991 hyperplastic polyp Benign neoplasm of skin Benign paroxysmal vertigo Cardiac pacemaker in situ 04/19/2017 Coronary atherosclerosis of [place] coronary artery 02/01 Degeneration of lumbosacral intervertebral [...] unspecified (HCC) 07/02/2008 RLP Parathyroid adenoma resection Benjy Smith DO July 02, 2008 Hypertension goal [...] 08/29 low B12 level Vitamin D deficiency Wound history/prehospital care: sits in a recliner a lot Current Skin Wound Care: static pressure redistribution mattress, moisture wicking pads, heel elevation, foam, turn and reposition, and pillows Wound Assessment: Awake, alert, in bed. Sacrum and right buttocks with scattered scarring, skin intact. Assisted Miranda onto the bedpan, ritu care provided. Heels elevated via pillow. Educated patient on importance of frequent repositioning and offloading of bony prominences, including elbows, heels, sacrum/buttocks, hips, in order to prevent pressure related skin injury. Verbalized understanding. * Lesly Deras OTR/L - 09/26/2023 7:24 AM EDTAssociated Order(s): ADULT OCCUPATIONAL THERAPY CONSULT IP OT consult received. Pt is currently on OT caseload. Please see ancillary tab for updates. * Sofie Arnold PT - 09/26/2023 7:01 AM EDTAssociated Order(s): ADULT PHYSICAL THERAPY CONSULT IP PT consult received however pt already being followed on active caseload. Please see previous notesfor details. * Lesly Deras OTR/L - 09/22/2023 9:17 AM EDTAssociated Order(s): ADULT OCCUPATIONAL THERAPY CONSULT IP GENERAL EVALUATION - Occupational Therapy [address] [address] Name: Miranda Coe [place] [facility] A537[place][id number] Date: 09/22/2023 Time: 1:17 PM Miranda Coe is a 88 year old female. Patient Status: Inpatient Insurance: Payor: [facility] [place] Plan: Zeel CLASSIC 1 PART D MC-LD Product Type: *No Product type* Patient Seen: at bedside, nursing cleared patient for therapy Patient Identified By: Name, ID Band and Date Diagnosis: retroperitoneal hematoma (09/22/23916) Status of treatment: Evaluation completed (09/22/23916) Orders: OT evaluation and treatment;OT OOB (09/22/23916) Weight Bearing Status: Weight bearing as tolerated (09/22/23916) Precautions: Alarms;Falls;Safety (09/22/23916) Total Treatment Time: 24 (09/22/23916) Past Medical History: Past Medical History: Diagnosis Date Acute pulmonary embolism (HCC) 07/17/2021 Allergic rhinitis 10/06/2012 Anxiety state 05/02/2009 Asthma, severity to be determined Atrial premature beats Benign neoplasm of colon 1991 hyperplastic polyp Benign neoplasm of skin Benign paroxysmal vertigo Cardiac pacemaker in situ 04/19/2017 Coronary atherosclerosis of [place] coronary artery 02/01 Degeneration of lumbosacral intervertebral [...] below 140/90 05/28/2014 Hypercalcemia 11/04 Hyperparathyroidism, primary ([facility]) Hyperparathyroidism, unspecified ([facility]) 07/02/2008 RLP Parathyroid adenoma resection Benjy Smith, July 02, 2008 Hypertension goal BP (blood pressure) < 140/80 02/25/2014 Ischemic cardiomyopathy 02/01 LVEF 40 % on cath Kidney disease, chronic, stage III (GFR 30-59 ml/min) ([facility]) 04/08/2015 LAE (left atrial enlargement) 06/03/2021 Duplicate Localized, primary osteoarthritis of hand 02/04/2011 Malignant neoplasm of ascending colon ([facility]) 05/12/2021 S/P colectomy-No current treatment Menopause [...] level Vitamin D deficiency Past Surgical History: Past Surgical History: Procedure Laterality Date CATHETERIZE LEFT HEART THRU SKIN 02/18/2005 Dr. Gunter - [facility] 1 VIEW 03/19/2001 PAH--the heart appears [...] - invasive adenocarcinoma, adenomatous polyps, diverticulosis / [facility] COLONOSCOPY, DIAGNOSTIC (RECTUM) N/A 06/24/2022 multiple polyps/few angiodysplastic lesions ascending colon/hemorrhoids/biopsies show adenomatous polyps/recall 6 months/Colonoscopy/[place] COLONOSCOPY, DIAGNOSTIC (RECTUM) N/A 12/09/2022 poor prep/biopsies normal/Colonoscopy/[place] COLONOSCOPY, SURGERY REFERRAL OP 07/30/2003 Dr. Schultz - normal EGD, FLEXIBLE, DIAGNOSTIC 01/15/2021 normal bx / [facility] EXPLORE PARATHYROID GLANDS 07/02/2008 PAR[place]YROIDECTOMY performed [place] BENJY SMITH [place] [facility] [place] FX INFORMATION L hand tumor INSERT/REPLACE PACEMAKER,ATRIAL/VENTRICULAR Left 04/11/2017 NEW DDD PACEMAKER IMPLANT performed by Elda Patterson DO at OR [facility] INSERTION OF LENS PROSTHESIS 07/05/2012 right eye, dr jordan BARRERA ARTERIAL INTERVENTION 09/21/2023 KNEE ARTHROSCOPY, DIAGNOSTIC 01/28/1994 left knee LAPAROSCOPIC COLECTOMY PARTIAL WITH ANASTOMOSIS 04/27/2021 right hemicolectomy, Dr. Salamanca [facility] CARDIAC THALLIUM STRESS, OUTSIDE FILMS 01/28/1998 negative PARTIAL REMOVAL OF COLON Right 04/27/2021 right hemicolectomy with anastamosis for ascending colon cancer--Dr. Ashok Salamanca PERC STENT/CHEST VERTEBRAL ARTERY, INITIAL 02/18/2005 LAD INSPECTOR METAL CAN VEIN LIGATION W/ GRAFT, 1 LEG LLE REMOVE TONSILS & ADENOIDS, AGE 12+ SIGMOIDOSCOPY, DIAGNOSTIC 07/06/93 & 10/06/98 Dr. Schultz TOTAL ABD HYSTERECTOMY W/WO REMOVAL OF TUBE(S) 30 yo prolapse - has ovaries in UPPER GI ENDOSCOPY 2020 normal stomach, biopsied. normal examined duodenum, normal examined jejunem VASC RENAL VASCULAR SCAN-COMPLETE 06/29/2007 no renal artery stenosis Social History/Disposition Lives with: Alone (09/21/23 1203) Assistance available: No (09/21/23 1203) Dwelling type: Apartment (09/21/23 1203) Entry steps: Ramp (09/21/23 1203) Inside steps: None (09/21/23 1203) Bedroom location: 1st floor (09/21/23 1203) Bath location: 1st floor full bath (09/21/23 1203) Prior Level of Function Reported by: Patient (09/22/23916) Ambulation: Ambulatory with device (09/22/23 09) Ambulatory Device: Rolling walker (09/22/23 09) Grooming: Independent (09/22/23916) Bathing: Independent (09/22/23916) Dressing: Independent (09/22/23916) Feeding: Independent (09/22/23916) Toileting: Independent (09/22/23916) Meal Prep: Independent (09/22/23916) Homemaking: Independent (09/22/23916) Driving: Yes (09/22/23916) Observations Consciousness: Alert (09/22/23916) Orientation: Oriented times 4 (09/22/23916) Cognitive Limitations: Processing;Impulsivity (09/22/23916) Psychosocial: Patient can communicate basic needs (09/22/23916) Sitting posture: Forward head;Rounded shoulders (09/22/23916) Standing posture: Forward head;Rounded shoulders (09/22/23916) Safety awareness: Needs cueing supervision. (09/22/23916) Other Findings Endurance: Functional activity;Poor (09/22/23916) Coordination: Intact (09/22/23916) Current Functional Status: Bilateral Upper Extremity Range of Motion: WFL (09/22/23916) Strength Assessment: (3+/5) (09/22/23916) Self Care Able to provide self care: Yes (09/22/23916) Grooming: Supervision (Please comment) (shampoo cap and wash face) (09/22/23916) Dressing Upper Body: Minimal Assistance (gown) (09/22/23916) Lower Body: Maximal Assistance (socks) (09/22/23916) Bathing Upper Body: Supervision (Please comment) (BUEs and trunk) (09/22/23916) Functional Ambulation Assistive Device: Rolling walker (09/22/23916) Distance in feet:: 25 (09/22/23916) Level of Assistance: Contact Guard (09/22/23916) Bed Mobility Supine-Sit: Supervision (Please comment) (with HOB elevated) (09/22/23916) OT Transfers Sit-Stand: Contact Guard (09/22/23916) Stand-Sit: Contact Guard (09/22/23916) Bed-Chair: Contact Guard (09/22/23916) Balance Sit (Static): Fair (09/22/23916) Sit (Dynamic): Fair (09/22/23916) Stand (Static): Fair (-) (09/22/23916) Stand (Dynamic): Fair (-) (09/22/23916) Alarm Status Patient positioned in: Chair (09/22/23916) With: Pressure pad alarm intact and functioning and call obando in reach (09/22/23916) Patient and Family Goals: to get well Patient Education Education Topic: Role of OT;Plan of care goals (09/22/23916) Review of Precautions: Safety;Fall (09/22/23916) Barriers to learning: Medical status (09/22/23916) Preferred learning method: Combination (09/22/23916) Treatment Provided: Self [facility] Management Trainin minutes Evaluation Moderate Complexity 10 minutes - 02480: Patient was cooperative during treatment session. Moderate complexity evaluation performed and 3-5 activity limitations were identified, including ADL deficit, functional mobility deficit, bed mobility deficit, decreased strength, decreased endurance, and impaired balance. Minimal or moderate modification of the functional task was necessary to complete the evaluation. Deficits Requiring O.T. Treatment: Deficits requiring O.T. treatment needs: ADL/self-care;Balance;Endurance;Functional mobility;Safety;Upper extremity strength;Weakness (09/22/23 0917) Goal Time Frame: 10 visits Assessment: Pt is a 88 year old female [place] [facility] [place] a dx of retroperitoneal hematoma. Priorto admission, pt lived alone where she completed mobility with a RW and was independent with ADLs. Pt supine in bed upon therapist arrival. Pt completed bed mobility with supervision with HOB elevated. Pt sat EOB ~10 minutes in order to participate in bathing and dressing ADLs. Pt completed washinghair and face with supervision. Pt required Min A for UE dressing and Max A for LE dressing, secondary to decreased functional reach to feet. Pt completed sit to stand transfer from EOB with CGA and cues for hand placement. Pt completed mobility in room using RW with CGA. Pt completed a short distance, and then reported feeling dizzy, which was not resolving. Therefore pt was returned to chair. Pt's BP was 111/61. Pt sat for 1 minute and then completed sit to stand transfer from chair with CGA.Pt reported feeling dizzy, and her Bp was 98/49 while in stance. Pt's RN was made aware and furthermobility was deferred secondary to pt's decreased tolerance to mobility and c/o dizziness. Pt wouldbenefit from skilled OT services in order to increase independence and facilitate a safe transitionto next level of care. Please consider post-acute care services which may include home health, fdc, outpatient therapy or inpatient rehabilitation. The level of care will be determined incollaboration with patient, family/caregiver and care team members. Goals: BUE Strength/ROM Increase BUE strength to at least one muscle grade. ADLs Increase UE dressing to supervision. Increase UE bathing to supervision. Increase LE dressing to Min A. Increase LE bathing to Min A. Increase toileting tasks to Min A Increase grooming and basic hygiene tasks while in stance at sink with supervision. Bed Mobility/Functional Mobility Increase bed mobility to independent Increase functional mobility using the least restrictive device to supervision. Functional Transfers Increase functional sit to stand transfers during ADLs to supervision. Increase transfers to toilet to supervision. Increase transfers from bed to chair with supervision. Balance Increase sitting balance at EOB to fair+ during ADLs. Increase standing balance to fair during ADLs. Treatment Plan: Safety, Bed mobility training, Functional Ambulation, Transfer training, Upper extremity strengthening, Balance activities, ADL training, and Endurance Anticipated Frequency (on eval): (1-5 x/wk) (09/22/23916) AM-PAC Help From Another Person Eating Meals: A little (09/22/23916) Help From Another Person Taking Care of Personal Grooming: A little (09/22/23916) Help From Another Person To Put On/Take Off Upper Body Clothing: A little (09/22/23916) Help From Another Person To Put On/Take Off Lower Body Clothing: A lot (09/22/23916) Help From Another Person Toileting: A lot (09/22/23916) Help From Another Person Bathing: A lot (09/22/23916) OT AM-PAC Score: 15 (09/22/23916) OT AM-PAC t-Scale Score: 34.69 (09/22/23916) A portion of this AM-PAC assessment not scored based on functional assessment, rather clinical decsion making utilized based on current findings and/or prior level of function. Please refer to futureAM-PAC calculations of functional ability as they become available. * Krupa Thornton DPT - 09/21/2023 1:07 PM EDTAssociated Order(s): ADULT PHYSICAL THERAPY CONSULT IP; ADULT PHYSICAL THERAPY CONSULT IP Physical Therapy - General Evaluation [address] [address] Name: Miranda Coe [place] [facility] A537[place]A Date: 09/21/2023 Time: 12:03 PM Miranda Coe is a/an 88 year old female. Patient Status: Inpatient Insurance: Payor: [facility] [place] Plan: [facility] [employer] CLASSIC 1 PART D -LD Product Type: *No Product type* Patient Seen: at bedside, nursing cleared patient for therapy Patient Identified By: Name, ID Band and Date Diagnosis: retropertoneal hematoma (09/21/23 1203) Status of treatment: Evaluation completed (09/21/23 1203) Orders: PT evaluation and treatment;OOB (09/21/23 1203) Weight Bearing Status: Weight bearing as tolerated (09/21/23 1203) Precautions: Alarms;Falls (09/21/23 1203) Total Treatment Time--free text: 23 (09/21/23 1203) Subjective: Pt encountered supine in bed and agreeable to therapy. Past Medical History: Past Medical History: Diagnosis Date Acute pulmonary embolism ([facility]) 07/17/2021 Allergic rhinitis 10/06/2012 Anxiety state 05/02/2009 Asthma, severity to be determined Atrial premature beats Benign neoplasm of colon 1991 hyperplastic polyp Benign neoplasm of skin Benign paroxysmal vertigo Cardiac pacemaker in situ 04/19/2017 Coronary atherosclerosis of [place] coronary artery 02/01 Degeneration of lumbosacral intervertebral disc 02/04/2009 Depressive disorder, not elsewhere classified 05/02/2009 Diffuse cystic mastopathy Diffuse cystic mastopathy DVT, lower extremity, distal, acute, right ([facility]) 06/03/2021 Dyslipidemia, goal LDL below 100 05/28/2014 Dyslipidemia, goal LDL below 70 10/09/2009 Esophageal reflux Essential hypertension with goal blood pressure less than 140/90 11/24/2015 Ganglion of tendon left foot Generalized osteoarthritis HTN, goal below 130/80 02/04/2009 HTN, goal below 140/90 05/28/2014 Hypercalcemia 11/04 Hyperparathyroidism, primary ([facility]) Hyperparathyroidism, unspecified ([facility]) 07/02/2008 RLP Parathyroid adenoma resection Benjy Smith, July 02, 2008 Hypertension goal BP (blood pressure) < 140/80 02/25/2014 Ischemic cardiomyopathy 02/01 LVEF 40 % on cath Kidney disease, chronic, stage III (GFR 30-59 ml/min) ([facility]) 04/08/2015 LAE (left atrial enlargement) 06/03/2021 Duplicate Localized, primary osteoarthritis of hand 02/04/2011 Malignant neoplasm of ascending colon ([facility]) 05/12/2021 S/P colectomy-No current treatment Menopause [...] level Vitamin D deficiency Past Surgical History: Past Surgical History: Procedure Laterality Date CATHETERIZE LEFT HEART THRU SKIN 02/18/2005 Dr. Gunter - [facility] [place] 1 VIEW 03/19/2001 PAH--the heart appears [...] - invasive adenocarcinoma, adenomatous polyps, diverticulosis / [facility] COLONOSCOPY, DIAGNOSTIC (RECTUM) N/A 06/24/2022 multiple polyps/few angiodysplastic lesions ascending colon/hemorrhoids/biopsies show adenomatous polyps/recall 6 months/Colonoscopy/[place] COLONOSCOPY, DIAGNOSTIC (RECTUM) N/A 12/09/2022 poor prep/biopsies normal/Colonoscopy/[place] COLONOSCOPY, SURGERY REFERRAL OP 07/30/2003 Dr. Schultz - normal EGD, FLEXIBLE, DIAGNOSTIC 01/15/2021 normal bx / [facility] EXPLORE PARATHYROID GLANDS 07/02/2008 PARATHYROIDECTOMY performed by BENJY SMITH [place] [facility] [place] FACIAL FX INFORMATION L hand tumor INSERT/REPLACE PACEMAKER,ATRIAL/VENTRICULAR Left 04/11/2017 NEW DDD PACEMAKER IMPLANT performed by Elda Patterson DO at OR [facility] INSERTION OF LENS PROSTHESIS 07/05/2012 right eye, dr jordan BARRERA ARTERIAL INTERVENTION 09/21/2023 KNEE ARTHROSCOPY, DIAGNOSTIC 01/28/1994 left knee LAPAROSCOPIC COLECTOMY PARTIAL WITH ANASTOMOSIS 04/27/2021 right hemicolectomy, Dr. Salamanca [facility] CARDIAC THALLIUM STRESS, OUTSIDE FILMS 01/28/1998 negative PARTIAL REMOVAL OF COLON Right 04/27/2021 right hemicolectomy with anastamosis for ascending colon cancer--Dr. Ashok Salamanca PERC STENT/CHEST VERTEBRAL ARTERY, INITIAL 02/18/2005 LAD INSPECTOR METAL CAN VEIN LIGATION W/ GRAFT, 1 LEG LLE REMOVE TONSILS & ADENOIDS, AGE 12+ SIGMOIDOSCOPY, DIAGNOSTIC 07/06/93 & 10/06/98 Dr. Schultz TOTAL ABD HYSTERECTOMY W/WO REMOVAL OF TUBE(S) 30 yo prolapse - has ovaries in UPPER GI ENDOSCOPY 2020 normal stomach, biopsied. normal examined duodenum, normal examined jejunem VASC RENAL VASCULAR SCAN-COMPLETE 06/29/2007 no renal artery stenosis Social History/Disposition Lives with: Alone (09/21/23 1203) Assistance available: No (09/21/23 1203) Dwelling type: Apartment (09/21/23 1203) Entry steps: Ramp (09/21/23 1203) Inside steps: None (09/21/23 1203) Bedroom location: 1st floor (09/21/23 1203) Bath location: 1st floor full bath (09/21/23 1203) Prior Level of Function Reported by: Patient (09/21/23 1203) Ambulation: Ambulatory with device (09/21/23 1203) Ambulatory Device: Cane (09/21/23 1203) Devices at home: Straight cane;Rolling walker (09/21/23 1203) Observations Consciousness: Alert (09/21/23 1203) Orientation: Oriented times 4 (09/21/23 1203) Psychosocial: Patient can communicate basic needs;Patient can converse in a social setting (09/21/23 1203) Sitting Posture: Forward head;Rounded shoulders (09/21/23 1203) Standing Posture: Forward head;Rounded shoulders (09/21/23 1203) Pain: Patient has complaints of pain. Pain located L hip. Range of Motion Range of Motion: WFL (09/21/231202) Strength Assessment Strength Assessment: (B LE at least grossly 3/5) (09/21/231202) P.T. Bed Mobility Supine-Sit: Minimal Assistance (09/21/231202) Transfers Sit-Stand: Minimal Assistance (x2, 2 attempts) (09/21/231202) Stand-Sit: Minimal Assistance (x2, 2 attempts) (09/21/231202) Ambulation Assist: Minimal Assistance (x2, 2 attempts) (09/21/231202) Distance Ambulated (feet): 5 (x2, 2 attempts) (09/21/231202) Assistive Device: Rolling walker (09/21/231202) Noted gait deviations: narrow base of support, slow gait speed (09/21/231202) Ambulatory safety: Patient verbalizes insight of current deficits;Patient cannot demonstrates carryover of insight during functional tasks (pt impulsive) (09/21/231202) Balance Sit (Static): (fair-) (09/21/231202) Sit (Dynamic): (fair-) (09/21/231202) Stand (Static): Poor (09/21/231202) Stand (Dynamic): Poor (09/21/231202) Patient and or Family Goal(s): to get well and to return home Patient Education Safety Awareness: Patient verbalizes insight of current deficits;Patient does not demonstrates carryover of insight during functional tasks (pt impulsive with movement) (09/21/231202) Preferred learning method: Combination (09/21/231202) Barriers to learning: None (09/21/231202) Method of Education: Verbalized to patient (09/21/231202) Topic of Education: Goals/plan of care Treatment Provided: Gait Training 8 minutes: gait training with rolling walker Evaluation Low Complexity 15 minutes - 24512: Patient was cooperative during treatment session. Lowcomplexity evaluation performed with indication of no personal factors or comorbidities that impactplan of care. Patient presents with limitations in strength, bed mobility, transfers, gait, balance, endurance, and safety, which will impact plan of care. These limitations will be addressed by the goals set for this patient. Alarm Status Patient positioned in: Chair (09/21/231202) With: Pressure pad alarm intact and functioning and call obando in reach (09/21/23 120) Following session patient seated OOB in chair with chair alarm activated. Chair alarm (did not havecord to plug into call obando system and/or room did not have port to plug cord into call obando system). Patient's nurse was made aware. Assessment: Pt presents [place] [facility] [place] hematoma. Pt requires assistance for bed mobility, transfers, and ambulation. Pt demonstrates impulsivity with movement and despite verbal cues to slow down and to wait for dizziness to subside before moving pt continued to move and descend into chair with lack of eccentric control. Vitals assessed multiple times throughout session and extended time given to patient with transitional movements due to increased dizziness. Nursing notified of increased dizziness. Please consider post-acute care services which may include home health, fdc, outpatient therapy or inpatient rehabilitation. The level of care will be determined in collaboration with patient, family/caregiver and care team members. Goals: Demonstrate Bed Mobility with: Modified Independent Demonstrate Transfers with: Modified Independent Demonstrate Ambulation: assistive device: least restrictive distance in feet: 150 level of assistance on level surface: modified independent (with device or slow) Increase Strength of: B LE to at least 4+/5 Increase Balance: to Fair+ with both static and dynamic balance in seated and standing position Time Frame: 10 visits Treatment Plan: Bed mobility training, Transfer training, Gait training, Strengthening exercises, and Balance activities Deficits requiring P.T. treatment needs: Safety;Mobility;Balance;Weakness;Endurance;Lower extremitystrength (09/21/231202) Anticipated Frequency (on eval): 1 to 3 times per week (09/21/231202) AM-PAC Score With Stairs : 17 (09/21/231202) A portion of this AM-PAC assessment not scored based on functional assessment; rather clinical decision making utilized based on current findings and/or prior level of function. Please refer to future AM-PAC calculations of functional ability as they become available. * Patricia Morales RN - 09/21/2023 10:53 AM EDTAssociated Order(s): CARE MANAGEMENT CONSULT IP Please see ancillary tab for note from care management. documented in this encounter Nursing Notes * Jennifer Olson RN - 09/23/2023 1:02 PM EDT Dual Licensed Skin Assessment completed by Frances HUTCHINS and Jennifer HUTCHINS. The patient is/has a N/A Skin Breakdown (includes non blanchable erythema): No Note: Scattered bruising bi-lateral legs, arms. * Farzad Hawkins RN - 09/23/2023 12:20 PM EDT Report called to AP5 RN prior to transfer. Pt transfer completed without incident. * Kristel Cook RN - 09/22/2023 1:32 PM EDT Pt complaining of left lower extremity pain, CCM made aware and came to bedside to assess. Will continue to monitor * Morteza Salamanca RN - 09/21/2023 6:29 PM EDT Dual Licensed Skin Assessment completed by Jl Salamanca RN and Crista Caro RN. The patient is/has a N/A Skin Breakdown (includes non blanchable erythema): No Patient with multiple areas of bruising(black and blue) but no open wounds. Ritu area is pink/red- sacral foam dressing applied. * July Cai RN - 09/21/2023 4:16 AM EDT test specialist note Name: Miranda Coe Date: 09/21/2023 Time: 4:19 AM Procedure: Retroperitoneal Hematoma Angiogram with Possible Embolization Patient ID band checked using two identifiers. Patient placed supine on procedure table with comfort measures intact and safety strap in place. Hemodynamic monitoring placed and initiated. Distal pulses palpable and marked. Patient denies any current complaints at current time 0352. RT staff prepares and preps patient for procedure. 4:10 AM Patient prepped and ready. Procedure by physician. 4:12 AM Timeout performed by Dr. Ian Coy. 4:15 AM Procedure started by Dr. Ian Coy, and scrubbed RT Amber. Numbing right site with 1% buffered lidocaine. US utilized for anatomical analysis of patient and access needle guidance. 4:16 AM Access obtained. Guidewire inserted. Images obtained. 4:30 AM Imaging continued. 4:45 AM Imaging continued. Patient resting comfortably. Hemodynamics remain stable. 5:00 AM Imaging obtained. 5:14 AM Final images obtained. 5:16 AM Mynx Vascular Closure Device LOT [id number] EXP 05-28-2025 deployed. Access removed. Amber holding pressure on site. Procedure complete. 5:24 AM Hemostasis achieved. Area cleaned. Gauze and tegaderm dressing applied. Distal pulses remain unchanged. Patient tolerated procedure well without complications. All wires, catheters, sheaths and other devices have been inspected prior to the procedure for damage. This has been confirmed by the scrubbed RT and the operating physician. All items not intended to remain in the patient have been inspected, accounted for and have been removed from the patient atthe end of the procedure. This has been confirmed by the scrubbed RT and the operating physician. Patient did not receive conscious sedation for their procedure. Total medications given Versed: 0.5 mg 1% buffered lidocaine: 5 mL Please see doctor's operative note for additional details. Patient escorted back to ICU on continuous monitor. PATIENT TO REMAIN FLAT FOR 2 HOURS (0725) WITH FREQUENT GROIN AND DISTAL PULSE CHECKS. documented in this encounter ED Notes * Oriana Knight RN - 09/21/2023 3:13 AM EDT Pt was playing [employer] games when she got off a "high stool" and she felt a pop in her L flank. Pt was seen at [facility] where they found a retroperitoneal hematoma. Pt was sent via life flight to [place] ED for evaluation and further care. Pt received 1 unite blood en route per Dr. Allan orders as well as 2,00 K [facility]. Nurse (Dennys) hand carried $300 raphael, with patients verbal permission, to security dispatch to be placed in a safe immediately upon arrival. documented in this encounter Miscellaneous Notes * Ancillary Progress Note - Jessica Batres MSW - 09/28/2023 10:32 AM EDT CARE MANAGEMENT - ADULT TRANSITION NOTE [facility] [address] Name: Miranda Coe Location: [facility] A564 Date: 09-27 Risk Stratification Risk Stratification Psycho Social / Medical Concerns Identified: Adjustment to illness/injury;Multiple Comorbidities (09/21/23 1055) Readmission Risk Score: 22.52 (09/28/23 0800) AM-PAC Score With Stairs : 13 (09/27/23 2300) Caregiver Information Patient Contacts Name Relation Home Work Mobile Ronnell Coe Adult Child [phone] Transition of Care Checklist Transition of Care Checklist (aka Readmission Risk Score) Discharge Disposition: Home w/Home Health (09/21/23 1059) Home or Home w/Home Health: Moderate (12-17%) (09/21/23 105) Narrative: [facility] SOC /2 sat vs prashanth [facility] aware of dc today Anticipated Transportation at Discharge: son Patient/Family Expectations: home with home health Transition Planning Transition Planning Transition Plan/Considerations: Needs uncertain at this time - Continue monitoring for needs (09/21/23 105) Transition plan discussed with - Enter name and phone #: pt (09/21/23 105) Insurance Considerations: N/A (09/21/23 105) Referral to Community Agency : N/A (09/21/23 105) Additional Considerations: Care Management will continue to monitor and assist with discharge planning needs * Care Plan - Elba Clifford RN - 09/28/2023 2:17 AM EDT Clinical Goal(s): patient will remain hemodynamically stable (09/27/23 2300) Possible barriers to meeting goal(s)/advancing plan of care: recent critical care downgrade Stability of the patient: Moderately stable - low risk of patient condition declining or worsening Summary regarding today's goal(s): Met: patient remained hemodynamically stable Recommendations: neuro checks every 4 hours * Care Plan - Yahaira Mohr RN - 09/27/2023 6:40 PM EDT Clinical Goal(s): Pt will be afebrile this shift (09/27/23 0700) Possible barriers to meeting goal(s)/advancing plan of care: possible infectious process Stability of the patient: Moderately stable - low risk of patient condition declining or worsening Summary regarding today's goal(s): Met: Patient has been afebrile this shift. Recommendations: Continue to monitor. * Ancillary Progress Note - Jessica Batres MSW - 09/27/2023 10:52 AM EDT HOME CARE REFERRAL FORM CARE MANAGEMENT [address] [address] Referred By: RADHA Philip Admission Date: 09/21/2023 Discharge Date: 1-2 days Discharge Time: pm Start Date: 10/02 [facility] PATIENT INFORMATION: Name: Miranda Coe Address: [address] [place] [id number] : 1935 Phone: There is no home phone number on file. SSN: [id number] County: [place] Emergency Contacts: Extended Emergency Contact Information Primary Emergency Contact: Ronnell Coe Mobile Relation: Adult Child Preferred language: Turkmen Pharmacy Picking Tech needed? No MEDICAL INFORMATION: Principal Diagnosis: No Principal Problem: There is no principal problem currently on the Problem List. Please update the Problem List and refresh. Diet: As per discharge instructions. Allergies: Alendronate sodium, Morphine and codeine, Thiazide-type diuretics, Boniva [ibandronate sodium], Zetia [ezetimibe], Zocor [simvastatin], Amiodarone, Iodinated contrast media, Metoprolol tartrate, Red dye, and Erythromycin Isolation Type: Activity Restrictions: As ordered Isolation For: HOME CARE ORDERS: (Discipline and Frequency): intermediate Pt ot Medications Dose, Frequency, & Route: As ordered Ordering Physician and Contact Information: Betito Hadley MD Comments: PCP: PCP: DINORAH FREGOSO[address] [place] [address] D/C Physician: Betito Hadley MD Insurance: See attached facesheet. * Ancillary Progress Note - Jessica Batres MSW - 09/27/2023 10:49 AM EDT CARE MANAGEMENT - ADULT TRANSITION [place] [facility] [address] Name: Miranda Coe [place] [facility] Date: 09/27/2023 Time: 10:49 AM Risk Stratification Risk Stratification Psycho Social / Medical Concerns Identified: Adjustment to illness/injury;Multiple Comorbidities (09/21/23 1055) Readmission Risk Score: 18.59 (09/27/23 0801) AM-PAC Score With Stairs : 13 (09/26/23 2300) Caregiver Information Patient Contacts Name Relation Home Work Mobile Ronnell Coe Adult Child [phone] Transition of Care Checklist Transition of Care Checklist (aka Readmission Risk Score) Discharge Disposition: Home w/Home Health (09/21/23 1059) Home or Home w/Home Health: Moderate (12-17%) (09/21/23 105) Narrative: Pt lives at home. Reviewed snf's in [facility] and she doesn't want any other snf's from list cm gave. She wishes to go home with home health. Stated she used [email or web address] in the past. Wants referral back to them. faxed referral Anticipated Transportation at Discharge: son Patient/Family Expectations: home with home health Transition Planning Transition Planning Transition Plan/Considerations: Needs uncertain at this time - Continue monitoring for needs (09/21/231058) Transition plan discussed with - Enter name and phone #: pt (09/21/231058) Insurance Considerations: N/A (09/21/231058) Referral to Community Agency : N/A (09/21/231058) Additional Considerations: Care Management will continue to monitor and assist with discharge planning needs * Care Plan - Ken Dumas RN - 09/26/2023 11:44 PM EDT Clinical Goal(s): Pt will remain afebrile this shift (09/26/23 0850) Possible barriers to meeting goal(s)/advancing plan of care: Medical Stabilty Stability of the patient: Moderately stable - low risk of patient condition declining or worsening Summary regarding today's goal(s): Met: Recommendations: * Care Plan - Ale Agosto RN - 09/26/2023 6:01 PM EDT Clinical Goal(s): Pt will remain afebrile this shift (09/26/23 0850) Possible barriers to meeting goal(s)/advancing plan of care: risk for infection Stability of the patient: Moderately unstable - medium risk of patient condition declining or worsening Summary regarding today's goal(s): Not Met: pt febrile this shift Recommendations: blood cultures obtained - pending; urine samples pending collection; assess for s/sx of infection, including fever; continue to assess hemodynamics * Ancillary Progress Note - Naty Bonds RN - 09/26/2023 1:32 PM EDT POST ACUTE CARE CARE MANAGEMENT [address] [address] Name: Miranda Coe [place] [facility] Date: 09/26/2023 Time: 1:32 PM Post-Acute Care Patient General Information Living Quarters: Apartment (09/21/231054) How many stories is the dwelling?: One Story (09/21/231054) Number of steps to enter living quarters:: 0/ramp (09/21/231054) Location of bathroom(s): All floors or Single story dwelling (09/21/231054) Do you have serious difficulty walking or climbing stairs? (5 years old or older): Yes (09/21/23536) History of falling: Yes (09/26/23 0800) What was your living situation prior to admission/observation?: Independently (09/21/23536) Do you have any children, pets, or other dependents that you are currently caring for?: No (09/21/23536) AM-PAC Score With Stairs : 13 (09/26/23 0850) Post-Acute Care with AM-PAC < 17.99 Rehab diagnosis: Does not meet criteria (09/26/231331) Nursing Home Facility (SNF) Guidelines For Medical Approval (must select both): Care must be provided by an RN/CHEMICAL SUPERVISOR and cannot be managed at home;Care requires observation, monitoring and evaluation of effectiveness on a daily basis (09/26/231331) SNF guidelines for Rehab Approval (All selections required): Services required only able to be provided in an inpatient setting;Able to participate for at least 1 hour of therapy per day;Established rehabilitative progress;One or more therapy modalities (PT/OT/ST) at least 5 times a week;Requires intense care planning with realistic goals as identified by 1 of the following;Requries Training (select at least one);Frequent re-assessment of established rehabilitative progress;Frequent monitoring and or revision of treatment plan (09/26/231331) Therapy Modalities: Physical Therapy;Occupational Therapy (09/26/231331) Intense Care Plan Goals: Completion of home evaluation, assistance with home modifications;Assistance with application for community services;Coordination of multiple community services;Family medication and/or transfer training (09/26/231331) SNF Required Training: Transfer Training;Gait training;ADL training, with or without adaptive equipment (09/26/231331) Approved for Nursing Home Rehab: Approved for Nursing Home Rehab (09/26/231331) Discussed patient at IDT. Patient admitted with retroperitoneal hematoma now stable on hep gtt. Patient with fever today, plan for infectious work up. PT/OT currently recommending rehab at d/c. Patient agreeable. Referrals placed to [facility] in [place]. Requested DOOR MACHINE OPERATOR fax referral. CM continue to follow for evolving needs. * Ancillary Progress Note - Makayla Camacho PTA - 09/26/2023 12:42 PM EDT PROGRESS NOTE - Physical Therapy [facility] [address] Name: Miranda Coe [place] [facility] Date: 09/26/2023 Time: 12:42 PM Miranda Coe is a/an 88 year old female. Patient Status: Inpatient Insurance: Payor: [employer] Plan: [employer] CLASSIC 1 PART D -LD Product Type: *No Product type* Patient Seen: at bedside, nursing cleared patient for therapy Patient Identified By: Name, ID Band and Date Diagnosis: retropertoneal hematoma (09/26/231241) Status of treatment: Treatment completed (09/26/231241) Orders: PT evaluation and treatment (09/26/231241) Weight Bearing Status: Weight bearing as tolerated (09/26/231241) Precautions: Alarms;Falls (09/26/231241) Total Treatment Time--free text: 32 (09/26/231241) Subjective: Pt agreeable to treatment Pain: No complaints of pain P.T. Bed Mobility Supine-Sit: Minimal Assistance (x2) (09/26/231241) Transfers Sit-Stand: Minimal Assistance (x2) (09/26/231241) Stand-Sit: Minimal Assistance (x2) (09/26/231241) Ambulation: Distance ambulated (feet): 3 Assistive Device: Rolling walker Assist: Minimal Assistance Balance Sit (Static): Fair (09/26/231241) Sit (Dynamic): Fair (09/26/231241) Stand (Static): (Poor +) (09/26/231241) Stand (Dynamic): (Poor +) (09/26/231241) Patient and or Family Goal(s): to get well Topic of Education: Safety with mobility, Use of assistive device, and Fall prevention Extremity Exercise Sitting: Hip (09/22/23917) Hip : (marching 2x8) (09/22/23917) Method of Education: Verbal discussion and explanation provided to patient: verbalized understanding and or agreement of this information Treatment Provided: Therapeutic Activities 17 minutes: bed mobility training transfer training Gait Training 15 minutes: gait training with rolling walker Alarm Status Patient positioned in: Chair (09/26/231241) With: Pressure pad alarm intact and functioning and call obando in reach (09/26/231241) Following session patient seated OOB in chair with chair alarm activated and cord plugged into callbell system. Patient Education Review of Precautions: Fall;Safety (09/26/231241) Safety Awareness: Patient verbalizes insight of current deficits;Needs cueing supervision () Preferred learning method: Combination (09/26/231241) Barriers to learning: None (09/26/231241) Method of Education: Verbalized to patient (09/26/231241) Assessment: Pt was supine in bed prior to therapy arrival. She was Minimal assistance from 2 to getout of bed and was able to adjust herself once sitting at Edge of bed. Pt reports feeling dizzy once sitting up. BP reading soft, RN notified and pt remained safe to continue sitting at Edge of bed. Pt attempted sit to stand transfer, once dizziness resolved, and was unable to complete activity without Minimal assistance from two. She required assistance with hand placement for safety. Once standing, pt ambulated 3 ft to bedside chair with Rolling walker and Minimal assistance. No further ambulation at this time due to pt reports of fatigue and malaise. Systolic BP at 100 after ambulation andRN made aware, present in room. Ended session with pt resting in chair, all needs met. Please consider post-acute care services which may include home health, fdc, outpatient therapy or inpatient rehabilitation. The level of care will be determined in collaboration with patient, family/caregiver and care team members. Deficits requiring P.T. treatment needs: Safety;Mobility;Balance;Weakness;Endurance;Lower extremitystrength (09/26/23 1242) Plan: Continue with current treatment plan established on evaluation. AM PAC Score with Stairs: 13. A portion of this AM-PAC assessment not scored based on functional assessment; rather clinical decision making utilized based on current findings and/or prior level of function. Please refer to future AM- PAC calculations of functional ability as they become available. * Ancillary Progress Note - Chantal Kennedy COTA/L - 09/26/2023 12:35 PM EDT PROGRESS NOTE - Occupational Therapy [facility] [address] Name: Miranda Coe [place] [facility] [place] Date: 09/26/2023 Time: 12:35 PM Miranda Coe is a 88 year old female. Patient Status: Inpatient Insurance: Payor: [facility] [place] Plan: [facility] GOLD CLASSIC 1 PART D MC-LD Product Type: *No Product type* Patient Seen: at bedside, nursing cleared patient for therapy Patient Identified By: Name, ID Band and Date Diagnosis: retroperitoneal hematoma (09/26/23 123) Status of treatment: Treatment completed (09/26/23 123) Orders: OT evaluation and treatment (09/26/23 123) Weight Bearing Status: Weight bearing as tolerated (09/26/23 123) Precautions: Alarms;Falls;Safety (09/26/23 123) Total Treatment Time: 32 (09/26/23 123) Subjective: Patient agreeable. Pain: Patient has complaints of pain. Pain located in right knee with mobility, pain patch in place. Nursing aware. Observations Consciousness: Alert (09/26/23 123) Orientation: Oriented times 4 (09/26/231234) Cognitive Limitations: Processing;Problem solving (09/26/231234) Psychosocial: Patient can communicate basic needs;Patient can converse in a social setting (09/26/231234) Sitting posture: Forward head;Rounded shoulders (09/26/23 123) Standing posture: Forward head;Rounded shoulders (09/26/231234) Safety awareness: Needs cueing supervision. (09/26/231234) Other Findings Endurance: Functional activity;Poor (09/22/23 09) Coordination: Intact (09/22/23916) Current Functional Status: Activities of Daily Living: Self Care Grooming: Supervision (wash face) (09/26/23 123) Dressing Upper Body: Minimal Assistance (manage gown) (09/26/23 123) Lower Body: Minimal Assistance (pull up socks) (09/26/231234) Bathing Upper Body: Supervision (Please comment) (BUEs and trunk) (09/22/23 09) Functional Ambulation Assistive Device: Rolling walker (09/26/231234) Distance in feet:: 3 (09/26/231234) Level of Assistance: Minimal Assistance (x2) (09/26/231234) Bed Mobility Supine-Sit: Contact Guard (09/26/231234) OT Transfers Sit-Stand: Minimal Assistance (09/26/23 123) Stand-Sit: Minimal Assistance (09/26/231234) Balance Sit (Static): Fair (09/26/231234) Sit (Dynamic): Fair (-) (09/26/231234) Stand (Static): Poor (+) (09/26/231234) Stand (Dynamic): Poor (09/26/231234) Patient Education Education Topic: Role of OT (09/26/231234) Review of Precautions: Safety;Fall (09/26/231234) Education Provided to: Patient (09/26/231234) Response to Education: Receptive and agreeable to education (09/26/231234) Barriers to learning: Medical status (09/26/231234) Preferred learning method: Combination (09/26/231234) Alarm Status Patient positioned in: Chair (09/26/231234) With: Pressure pad alarm intact and functioning and call obando in reach (09/26/231234) Following session patient seated OOB in chair with chair alarm activated and cord plugged into callbell system. Treatment Provided: Self [facility] Management Trainin minutes Deficits requiring O.T. treatment needs: ADL/self- care;Balance;Endurance;Functional mobility;Safety;Upper extremity strength;Weakness (09/26/231234) Assessment: Patient supine in bed upon arrival, alert and cooperative. Bed mobility performed with contact guard assistance. Upon sitting on edge of bed, Patient reported significant dizziness. BP lower than previous readings however, systolic in 100s. ADLs completed with above levels of assistance, required contact guard assistance to maintain balance. Reported using bedpan for toileting tasks previously with nursing. Educated on and encouraged to utilize bedside commode with nursing to promote independence. Sit to stand transfer completed from bedside with minimal assistance, multiple attempts required and verbal cues needed for hand placement. Upon standing, Patient required maximal cueing for hand placement on rolling walker and to correct posture. Able to take a few steps from bed tochair using rolling walker with assistance of 2. Upon reaching reclining chair, Patient reported SOB and dizziness. SpO2 97% and systolic BP below 100. Nursing present and aware, Patient's feet elevated and trunk reclined. Left with all needs met. Please consider post-acute care services which may include home health, fdc, outpatient therapy or inpatient rehabilitation. The level of care will be determined in collaboration with patient, family/caregiver and care team members. Plan: To continue plan of care. Anticipated Frequency (on eval): (1-5x per week) (09/26/231234) Equipment Equipment used in Therapy: Rolling walker (09/26/231234) AM-PAC Help From Another Person Eating Meals: A little (09/26/231234) Help From Another Person Taking Care of Personal Grooming: A little (09/26/231234) Help From Another Person To Put On/Take Off Upper Body Clothing: A little (07/29/24 1235) Help From Another Person To Put On/Take Off Lower Body Clothing: A lot (09/26/23 1235) Help From Another Person Toileting: A lot (09/26/23 1235) Help From Another Person Bathing: A lot (09/26/23 1235) OT AM-PAC Score: 15 (09/26/23 1235) OT AM-PAC t-Scale Score: 34.69 (09/26/23 1235) HLM (Highest Level of Mobility) Goal: Level 4 move to chair/commode (09/26/23 0850) A portion of this AM-PAC assessment not scored based on functional assessment; rather clinical decision making utilized based on current findings and/or prior level of function. Please refer to future AM-PAC calculations of functional ability as they become available. * Care Plan - Marina Grigsby RN - 09/26/2023 6:40 AM EDT Clinical Goal(s): Patient will be free of falls (09/25/23 2300) Possible barriers to meeting goal(s)/advancing plan of care: Generalized weakness Stability of the patient: Moderately stable - low risk of patient condition declining or worsening Summary regarding today's goal(s): Met: met Recommendations: Problem: Activity Intolerance & Impaired Mobility Goal: Patient will maintain optimal mobility & activity level. Outcome: Progressing Problem: Pain & Impaired Comfort Goal: Patient's pain & discomfort is manageable. Outcome: Progressing Problem: Safety & Risk for Injury Goal: Patient will remain free from injury. Outcome: Progressing * Care Plan - Ramon Ross RN - 09/25/2023 1:52 AM EDT Clinical Goal(s): Patient will be free of falls (09/23/23 2300) Possible barriers to meeting goal(s)/advancing plan of care: Diagnosis, IV site, hospital environment, decreased mobility Stability of the patient: Moderately stable - low risk of patient condition declining or worsening Summary regarding today's goal(s): Met: Patient remained free from injury and falls Recommendations: Continue to encourage call obando use and increasing mobility, maintain fall precautions * Communication - Betito Hadley MD - 09/24/2023 1:38 PM EDT Risk/Benefit Discussion Regarding Anticoagulation: I have had extensive risks/benefit discussion with the patient and her family members over the last2 days regarding her anticoagulation moving forward. As documented in my note yesterday, the patient presented with acute on chronic blood-loss anemia in the setting of large retroperitoneal hematomawhile on therapeutic anticoagulation with warfarin. Her indications for warfarin include history ofVTE (although likely provoked and now 2 years ago) as well as AFib with an elevated C2V of 6. She is at increased bleeding risk given her age and her recent spontaneous retroperitoneal hematoma without significant trauma (although her INR was supratherapeutic in the mid 4s for this event). Her [facility] ed is 5. She also has a history of mechanical falls at home. We discussed this at length. Patient is aware that she was at increased risk for bleeding including life-threatening bleeding complications while on therapeutic anticoagulation given her bleeding history as well as her fall history. However she is very anxious and averse to the risk of stroke and would prefer to attempt to stay on therapeutic anticoagulation if possible. Given her preference to maintain therapeutic anticoagulation, I believe the safest route forward would be to start her on therapeutic heparin infusion and monitor her hemoglobin while inpatient. If her hemoglobin remains stable while therapeutically anticoagulated, at that time we can plan to transitioned to an oral option. I believe the safest oral option moving forward would be apixaban rather than warfarin as she has a history of supratherapeutic INR with bleeding. Her apixaban would be dosereduced to 2.5 mg twice daily given age, weight, and at times her renal function. Plan: - Start no bolus heparin gtt and monitor Hgb - If hemodynamics and hgb remain stable, can transition to eliquis for DC - Will continue to hold ENTRY LEVEL DRAFTER ASA for now. Betito Hadley MD [facility] Medicine * Diagnostic Clarification - Kian Johnson DO - 09/24/2023 10:21 AM EDT The patient has been diagnosed with bleeding related to the anticoagulant. * Care Plan - Frances Garner RN - 09/23/2023 5:46 PM EDT Clinical Goal(s): pain < 3 (09/23/23 0800) Possible barriers to meeting goal(s)/advancing plan of care: medical condition Stability of the patient: Moderately unstable - medium risk of patient condition declining or worsening Summary regarding today's goal(s): Met: Patient remained comfortable, no pain verbalized during shift. Recommendations: Continue with plan of care. * Communication - Betito Hadley MD - 09/23/2023 4:29 PM EDT Brief ICU Transfer Accept Note: Patient seen and evaluated on the general medical floor. 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 No clear trauma history indicating likely spontaneous bleed. Based on review of records, it seems that when patient initially presented to Care, she had a supratherapeutic INR in the mid 4s which likely contributed to her spontaneous bleed. Attempted IR embolization, however during angiography there was no active extravasation identified,thus no embolization occurred. Patient has remained hemodynamically stable while in the ICU, however her hemoglobin continues to slowly downtrend. She was deemed medically stable for the floor thus was transferred to our service on the general medical floor for further monitoring of her hemoglobin. On evaluation she reports her pain has improved significantly. She remains hemodynamically stable. She has no chest pain, shortness of breath, abdominal pain, nausea, vomiting. Plan: Continue to hold ENTRY LEVEL DRAFTER aspirin and warfarin. Her INR was reversed with Kcentra and vitamin K when sheinitially presented. Continue to monitor hemoglobin q.12 hours for now. Maintain 2 peripheral IVs. Maintain active type and screen. Transfuse for hemoglobin less than 7. Once hemoglobin stabilizes, will need to discuss risks/benefits regarding anticoagulation moving forward. Already began this discussion when I met the patient today. She is aware of the risks and thebenefits. She is not sure yet what she would like to do. Her primary indication at this point is her AFib with an elevated C2V score of 6. She does have history of VTE, however this seems like it wasprovoked in the postoperative setting in the setting of active malignancy which is now undergoing observation. Given prior history of falls and now 2nd spontaneous bleed, patient will be high-risk for bleeding moving forward (has bled score of 5). She was very anxious about stroke risk if she were to discontinue anticoagulation. She wishes to continue thinking about it before making a final decision which is reasonable. If she does decide to restart therapeutic anticoagulation once hemoglobin stabilizes, it may be beneficial to consider transition to a NOAC given better safety profile in her a ge group and her history of supratherapeutic INR while on warfarin. Please see dedicated transfer note by resident for additional details of plan. Remainder of plan per their note. I spent a total of 55 minutes coordinating, documenting, and providing care for this patient excluding time spent in the performance of separately billed services. Betito Hadley MD Hospital Medicine * Ancillary Progress Note - Sravanthi Cha RDN - 09/23/2023 9:55 AM EDT CLINICAL NUTRITION ADULT RISK ASSESSMENT [facility] [address] Name: Miranda Coe [place] [facility] [place] Date: 09/23/2023 Time: 10:06 AM How patient was identified (select 2): date and Name Miranda Coe is a 88 year old female being assessed for clinical nutrition risk related to extended LOS Primary diagnosis: Patient admitted with retroperitoneal hematoma. Other pertinent information: Patient reports good PO intake and appetite prior to admission. Currently with good PO intake eating >75% of her meals per documentation. She follows a low sodium dietwith an allergy to red dye. She does not like pork. She does not take any oral nutrition supplements. She reports a 20 pound weight loss when she was admitted this winter with fluid overload. No significant weight loss as most of weight was fluid loss. UBW currently 75 kg, unsure of accuracy of todays weight. She has no muscle or fat loss on exam. Denies N/V, constipation/diarrhea. She does not have a bm every day. NFPE completed on 09/23/2023 Subcutaneous Fat Loss: Tricep: WNL Rib: WNL Muscle Loss: Clavicles: WNL Shoulders: Mild Quadriceps: WNL Anthropometrics Measurements Admission weight (for dietitians): 78.2 kg Height: 175.3 cm (5' 9") (09/21/23 0537) Weight: 56.2 kg (123 lb 14.4 oz) (09/22/23 0500) BMI: 25.45 (09/21/23 05) Usual Body Weight or EDW for Dialysis Patients: 75 kg Diet: Heart Healthy, 2 gm Sodium Previously followed diet: low sodium Food Allergies/Intolerances: red dye Oral Nutrition Supplement (ONS): none Pertinent medications/vitamins/minerals/supplements: Vitamin D, B12, iron, prilosec RISK FACTORS: Adult Energy Intake: No significant decrease Interpretation of Weight Change: No recent/significant weight change Skin: glut- maroon/purple NUTRITION RISK CATEGORY: Nutrition Risk Category: Low/Moderate (0-1 factors) Clinical Nutrition Recommendations: Diet: Continue current nutrition plan NUTRITION INTERVENTION/PLAN: Continue current care plan Will follow and adjust nutritional plan as medical condition requires. Please contact for change(s)in patient condition requiring earlier intervention. Sravanthi Cha RDN, ERIKA BURNS Clinical Dietitian Phone [phone] [employer] * Ancillary Progress Note - Patricia Morales RN - 09/23/2023 9:46 AM EDT CARE MANAGEMENT - ADULT TRANSITION NOTE [address] [address] Name: Miranda Coe [place] [facility] [place] Date: 09/23/2023 Time: 9:46 AM Risk Stratification Risk Stratification Psycho Social / Medical Concerns Identified: Adjustment to illness/injury;Multiple Comorbidities (09/21/23 1055) Readmission Risk Score: 16.32 (09/23/23 0801) AM-PAC Score With Stairs : 14 (09/23/23 0800) Caregiver Information Patient Contacts Name Relation Home Work Mobile Ronnell Coe Adult Child [phone] Transition of Care Checklist Transition of Care Checklist (aka Readmission Risk Score) Discharge Disposition: Home w/Home Health (09/21/23 1059) Home or Home w/Home Health: Moderate (12-17%) (09/21/23 105) Narrative: CM present for IDTs. Pt with afib, 2gm hgb drop per idts. Ongoing follow for the retroperitoneal hematoma and will need to follow up with pt after seen again if able to work w therapy without c/o dizziness and poor tolerance of working with therapy. Pt continues to decline HH or rehab for dc planning. CM will follow Anticipated Transportation at Discharge: family Patient/Family Expectations: home vs hh v snf pending medical progression Transition Planning Transition Planning Transition Plan/Considerations: Needs uncertain at this time - Continue monitoring for needs (09/21/23 105) Transition plan discussed with - Enter name and phone #: pt (09/21/23 105) Insurance Considerations: N/A (09/21/23 1059) Referral to Community Agency : N/A (09/21/23 1059) Care Management will continue to monitor and assist with discharge planning needs * Ancillary Progress Note - Krupa Thornton DPT - 09/22/2023 1:31 PM EDT Physical Therapy - Progress Note [address] [address] Name: Miranda Coe [place] [facility] [place] Date: 09/22/2023 Time: 9:18AM Miranda Coe is a/an 88 year old female. Patient Status: Inpatient Insurance: Payor: [facility] [place] Plan: [facility] [place] CLASSIC 1 PART D MC-LD Product Type: *No Product type* Patient Seen: at bedside, nursing cleared patient for therapy Patient Identified By: Name, ID Band and Date Diagnosis: retropertoneal hematoma (09/22/23917) Status of treatment: Evaluation completed (09/22/23917) Orders: PT evaluation and treatment;OOB (09/22/23917) Weight Bearing Status: Weight bearing as tolerated (09/22/23917) Precautions: Alarms;Falls (09/22/23917) Total Treatment Time--free text: 23 (09/22/23917) Subjective: Pt encountered sitting in bed with head of bed elevated and agreeable to therapy. Past Medical History: Past Medical History: Diagnosis Date Acute pulmonary embolism ([facility]) 07/17/2021 Allergic rhinitis 10/06/2012 Anxiety state 05/02/2009 Asthma, severity to be determined Atrial premature beats Benign neoplasm of colon 1991 hyperplastic polyp Benign neoplasm of skin Benign paroxysmal vertigo Cardiac pacemaker in situ 04/19/2017 Coronary atherosclerosis of [place] coronary artery 02/01 Degeneration of lumbosacral intervertebral disc 02/04/2009 Depressive disorder, not elsewhere classified 05/02/2009 Diffuse cystic mastopathy Diffuse cystic mastopathy DVT, lower extremity, distal, acute, right ([facility]) 06/03/2021 Dyslipidemia, goal LDL below 100 05/28/2014 Dyslipidemia, goal LDL below 70 10/09/2009 Esophageal reflux Essential hypertension with goal blood pressure less than 140/90 11/24/2015 Ganglion of tendon left foot Generalized osteoarthritis HTN, goal below 130/80 02/04/2009 HTN, goal below 140/90 05/28/2014 Hypercalcemia 11/04 Hyperparathyroidism, primary ([facility]) Hyperparathyroidism, unspecified ([facility]) 07/02/2008 RLP Parathyroid adenoma resection Benjy Smith, July 02, 2008 Hypertension goal BP (blood pressure) < 140/80 02/25/2014 Ischemic cardiomyopathy 02/01 LVEF 40 % on cath Kidney disease, chronic, stage III (GFR 30-59 ml/min) ([facility]) 04/08/2015 LAE (left atrial enlargement) 06/03/2021 [...] level Vitamin D deficiency Past Surgical History: Past Surgical History: Procedure Laterality Date CATHETERIZE LEFT HEART THRU SKIN 02/18/2005 Dr. Gunter - [facility] [place] 1 VIEW 03/19/2001 PAH--the heart appears [...] - invasive adenocarcinoma, adenomatous polyps, diverticulosis / [facility] COLONOSCOPY, DIAGNOSTIC (RECTUM) N/A 06/24/2022 multiple polyps/few angiodysplastic lesions ascending colon/hemorrhoids/biopsies show adenomatous polyps/recall 6 months/Colonoscopy/[place] COLONOSCOPY, DIAGNOSTIC (RECTUM) N/A 12/09/2022 poor prep/biopsies normal/Colonoscopy/[place] COLONOSCOPY, SURGERY REFERRAL OP 07/30/2003 Dr. Schultz - normal EGD, FLEXIBLE, DIAGNOSTIC 01/15/2021 normal bx / [facility] EXPLORE PARATHYROID GLANDS 07/02/2008 PARATHYROIDECTOMY performed by BENJY SMITH at [place] [facility] INFORMATION FACIAL FX INFORMATION L hand tumor INSERT/REPLACE PACEMAKER,ATRIAL/VENTRICULAR Left 04/11/2017 NEW DDD PACEMAKER IMPLANT performed by Elda Patterson DO at OR [facility] INSERTION OF LENS PROSTHESIS 07/05/2012 right eye, dr ortega IR ARTERIAL INTERVENTION 09/21/2023 KNEE ARTHROSCOPY, DIAGNOSTIC 01/28/1994 left knee LAPAROSCOPIC COLECTOMY PARTIAL WITH ANASTOMOSIS 04/27/2021 right hemicolectomy, Dr. Salamanca [facility] CARDIAC THALLIUM STRESS, OUTSIDE FILMS 01/28/1998 negative PARTIAL REMOVAL OF COLON Right 04/27/2021 right hemicolectomy with anastamosis for ascending colon cancer--Dr. Ashok Salamanca PERC STENT/CHEST VERTEBRAL ARTERY, INITIAL 02/18/2005 LAD INSPECTOR METAL CAN VEIN LIGATION W/ GRAFT, 1 LEG LLE REMOVE TONSILS & ADENOIDS, AGE 12+ SIGMOIDOSCOPY, DIAGNOSTIC 07/06/93 & 10/06/98 Dr. Schultz TOTAL ABD HYSTERECTOMY W/WO REMOVAL OF TUBE(S) 30 yo prolapse - has ovaries in UPPER GI ENDOSCOPY 2020 normal stomach, biopsied. normal examined duodenum, normal examined jejunem VASC RENAL VASCULAR SCAN-COMPLETE 06/29/2007 no renal artery stenosis Social History/Disposition Lives with: Alone (09/22/23917) Assistance available: No (09/22/23917) Dwelling type: Apartment (09/22/23917) Entry steps: Ramp (09/22/23917) Inside steps: None (09/22/23917) Bedroom location: 1st floor (09/22/23917) Bath location: 1st floor full bath (09/22/23917) Prior Level of Function Reported by: Patient (09/22/23917) Ambulation: Ambulatory with device (09/22/23917) Ambulatory Device: Cane (09/22/23917) Devices at home: Straight cane;Rolling walker (09/22/23917) Observations Consciousness: Alert (09/22/23917) Orientation: Oriented times 4 (09/22/23917) Psychosocial: Patient can communicate basic needs;Patient can converse in a social setting (09/22/23917) Sitting Posture: Forward head;Rounded shoulders (09/22/23917) Standing Posture: Forward head;Rounded shoulders (09/22/23917) Pain: No complaints of pain Range of Motion Range of Motion: WFL (09/21/23 120) Strength Assessment Strength Assessment: (B LE at least grossly 3/5) (09/21/23 1203) P.T. Bed Mobility Supine-Sit: Supervision (HOB elevated) (09/22/23917) Transfers Sit-Stand: Contact Guard (x2) (09/22/23917) Stand-Sit: Contact Guard (x2) (09/22/23917) Ambulation Assist: Contact Guard (09/22/23917) Distance Ambulated (feet): 25 (09/22/23917) Assistive Device: Rolling walker (09/22/23917) Noted gait deviations: narrow base of support, slow gait speed (09/22/23917) Ambulatory safety: Patient verbalizes insight of current deficits;Patient demonstrates carryover ofinsight during functional tasks (09/22/23917) Balance Sit (Static): Fair (09/22/23917) Sit (Dynamic): Fair (09/22/23917) Stand (Static): (fair-) (09/22/23917) Stand (Dynamic): (fair-) (09/22/23917) Patient and or Family Goal(s): to get well and to return home Patient Education Safety Awareness: Patient verbalizes insight of current deficits;Patient demonstrates carryover of insight during functional tasks (09/22/23917) Preferred learning method: Combination (09/22/23917) Barriers to learning: None (09/22/23917) Method of Education: Verbalized to patient (09/22/23917) Topic of Education: Goals/plan of care Extremity Exercise Sitting: Hip (09/22/23917) Hip : (marching 2x8) (09/22/23917) Treatment Provided: Therapeutic Activities 11 minutes: bed mobility training transfer training Gait Training 12 minutes: gait training with rolling walker Alarm Status Patient positioned in: Chair (09/22/23917) With: Pressure pad alarm intact and functioning and call obando in reach (09/22/23917) Following session patient seated OOB in chair with chair alarm activated. Chair alarm (did not havecord to plug into call obando system and/or room did not have port to plug cord into call obando system). Patient's nurse was made aware. Assessment: Pt [place] [facility] [place] retroperitoneal hematoma. Pt required less assistance at this date for bed mobility, transfers, and ambulation. Pt able to sit at edge of bed for 10 minutes while completing self care with supervision for both static and dynamic balance. Overall, pt demonstrated less impulsiveness with movement and required less verbal cues for safety. When ambulating pt continues to have limited endurance and limited in overall distance due to dizziness. Blood pressure assessed during session in standing (111/61mmHg and sitting 98/49mmHg) with nursing made aware of pt dizziness. Please consider post-acute care services which may include home health, fdc, outpa tient therapy or inpatient rehabilitation. The level of care will be determined in collaboration with patient, family/caregiver and care team members. Goals: Demonstrate Bed Mobility with: Modified Independent Demonstrate Transfers with: Modified Independent Demonstrate Ambulation: assistive device: least restrictive distance in feet: 150 level of assistance on level surface: modified independent (with device or slow) Increase Strength of: B LE to at least 4+/5 Increase Balance: to Fair+ with both static and dynamic balance in seated and standing position Time Frame: 10 visits Treatment Plan: Bed mobility training, Transfer training, Gait training, Strengthening exercises, and Balance activities Deficits requiring P.T. treatment needs: Safety;Mobility;Balance;Weakness;Endurance;Lower extremitystrength (09/22/23917) Anticipated Frequency (on eval): (1-5x/wk) (09/22/23917) AM-PAC Score With Stairs : 17 (09/22/23917) A portion of this AM-PAC assessment not scored based on functional assessment; rather clinical decision making utilized based on current findings and/or prior level of function. Please refer to future AM-PAC calculations of functional ability as they become available. * Ancillary Progress Note - Patricia Morales RN - 09/22/2023 11:59 AM EDT CARE MANAGEMENT - ADULT TRANSITION NOTE [address] [address] Name: Miranda Coe [place] [facility] [place] Date: 09/22/2023 Time: 11:59 AM Risk Stratification Risk Stratification Psycho Social / Medical Concerns Identified: Adjustment to illness/injury;Multiple Comorbidities (09/21/23 1055) Readmission Risk Score: 15.47 (09/22/23 0801) AM-PAC Score With Stairs : 18 (09/21/231999) Caregiver Information Patient Contacts Name Relation Home Work Mobile Ronnell Coe Adult Child [phone] Transition of Care Checklist Transition of Care Checklist (aka Readmission Risk Score) Discharge Disposition: Home w/Home Health (09/21/23 105) Home or Home w/Home Health: Moderate (12-17%) (09/21/23 105) Narrative: CM present for IDTs. Med surg status but not med ready. Cm into speak with pt bedside. Per pt therapy did not complete full ambulation yesterday due to her feeling dizzy etc. Pt still feels she will progress while here and likely not need HH. Pt states her dtr will be up to stay w her for a week upon dc and then she will be going to their home for a short time. Anticipated Transportation at Discharge: family Patient/Family Expectations: home Transition Planning Transition Planning Transition Plan/Considerations: Needs uncertain at this time - Continue monitoring for needs (09/21/231058) Transition plan discussed with - Enter name and phone #: pt (09/21/231058) Insurance Considerations: N/A (09/21/231058) Referral to Community Agency : N/A (09/21/231058) Care Management will continue to monitor and assist with discharge planning needs * Ancillary Progress Note - Patricia Morales RN - 09/21/2023 10:59 AM EDT CARE MANAGEMENT - ADULT INITIAL SCREENING [address] [address] Name: Miranda Coe [place] [facility] Date: 09/21/2023 Time: 10:59 AM Discussed patient with the interdisciplinary care team. This Pattern Illustrator performed a chart review and met with pt at bedside to complete admission screen and assessed needs for transition planning. The resident care aid role and services were explained and emotional support was provided. Chief Complaint: Pain Prior Living Arrangements What was your living situation prior to admission/observation?: Independently (09/21/23536) Living Quarters: Apartment (09/21/231054) Number of steps to enter living quarters:: 0/ramp (09/21/231054) Do you have serious difficulty walking or climbing stairs? (5 years old or older): Yes (09/21/23536) History of falling: Yes (09/21/23799) Prior Level of Functioning Describe the patient's ability prior to admission/observation to perform ADLs: Performs independently (09/21/23536) Describe the patient's mobility status prior to admission: Patient ambulates independently (09/21/23536) Patient uses assistive device: Yes (09/21/23536) If yes, choose:: Walker;Cane (09/21/23536) Caregiver Information Patient Contacts Name Relation Home Work Mobile Ronnell Coe Adult Child [phone] Risk Stratification/Psychosocial/Care Gaps Risk Stratification Psycho Social / Medical Concerns Identified: Adjustment to illness/injury;Multiple Comorbidities (09/21/231054) Readmission Risk Score: 12.51 (09/21/23 0801) AM-PAC Score With Stairs : 14 (09/21/23 0800) Prior to Admission Services Services Prior to Admission ENTRY LEVEL DRAFTER Services (Services received within the last 30 days with exception, Psych within last two years): Durable Medical Equipment;Other - Comment (09/21/231054) ENTRY LEVEL DRAFTER Durable Medical Equipment (DME) in home: Cane;Walker Rolling;Oxygen (name) - Comment (09/21/231054) [place] Dept[employer] 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 Has OPCM. Pts plan is home -uncertain if wants/needs HH for dc. Is open to same agency if needed again post therapy recs. Pt drives short distances for appts etc but long ones she has a friend who assists with long distance appts. Transport home :: son? Previous Stays/HH:: [facility] 05/2023-07/07/23. [facility]-recent dc DME for O2 is [facility] (HS only 2l) RX :: [facility] short term meds For further screening information, please refer to the Care Management flow document. * Ancillary Progress Note - Tiffanie Lewis RRT - 09/21/2023 6:28 AM EDT PATIENT DRIVEN PROTOCOL - Respiratory Care Services [address] [address] Name: Miranda Coe [place] [facility] Date: 09/21/2023 Time: 6:29 AM Patient Driven Protocol Summary: Initial evaluation performed. This Treatment Plan and medications will be reviewed by the Primary Care Team for any contraindications. Respiratory Care Treatment Plan Pulmonary Volume Expansion Therapy: Incentive Spirometry PRN to prevent or treat alveolar consolidation and atelectasis. . Secretion Management Treatment: Flutter TherapyPRN to enhance mobilization of secretions. . The patient will be re-evaluated: No re-evaluation needed. Indications for treatment met. The Triage Level is: (Assessment Score = 0 - 5) Level 5. Triage Level Definitions: Level 1 Severe Respiratory/Airway Compromise Level 2 Moderate Respiratory/Airway Compromise or high risk for pulmonary complications Level 3 Mild Respiratory/Airway Compromise or moderate risk for pulmonary complications Level 4 Episodic Respiratory/Airway Compromise or low risk for pulmonary complications Level 5 No Respiratory/Airway Compromise Triage 1 Triage 2 Triage 3 Triage 4 Triage 5 greater than 20 16 - 20 11 - 15 6 - 10 0 - 5 Medical Record Assessment Clinical Findings Pulmonary Status: 0 - No History Surgical Status: 0 - No Surgical History Chest X-Ray: 0 - Not Performed or performed greater than 3 days ago Assessment Score: 0 Patient Assessment Clinical Findings Respiratory Pattern: 0 - RR 12 - 20; Patient only gets breathless with strenuous exercise. Breath Sounds: 0 - Clear to auscultation Cough Effectiveness: 0 - Strong non-productive Sputum Production: 0 - No sputum production Level of Activity: 0 - Ambulatory O2 needed to keep SpO2 greater than or equal to 92%: 1 - Oxygen 1-3 LPM or FiO2 less than 35% Assessment Score: 1 Total Assessment Score: 1 Breath Sounds: Inspiratory and expiratory clear bilaterally.. Cough and Sputum: An effective cough produced no sputum... CXR: not performed. Vital Signs: Resp: 15 (09/21/23626) Pulse: 86 (09/21/23 0537) Temp: 36.7 C (98.1 F) (09/21/23 0600) BP: 157/79 (09/21/23 0520) SpO2: 99 % (09/21/23626) PFT: Minimal Predicted IC: 0.99 L. Inspiratory capacity: 1.25 L. Primary Service: Critical Care Red. Admitting Diagnosis: Retroperitoneal hematoma [K68.3] Pulmonary Diagnosis: MARTI. Prescriptions/Home Medications/Durable Medical Equipment: 2L oxygen at night. * Medical Necessity - Zulma White, RN - 09/21/2023 4:44 AM EDT AdmissionCare Guideline: Gastroenterology, Inpatient Based on the indications selected for the patient, the bed status of Inpatient was determined to beMET The following indications were selected as present at the time of evaluation of the patient: - Clinical Indications for Admission to Inpatient Care - Hospital admission is needed for appropriate care of the patient because of 1 or more of the following: - Other severe abdominal signs or symptoms necessitating inpatient care (eg, severe pain, free air) AdmissionCare documentation entered by: Zulma White [facility], 28th edition, Copyright 2023 [facility] [employer], [employer] All Rights Reserved. [id number]:00 Solely for purpose of utilization review and payment; not a diagnostic tool documented in this encounter Plan of Treatment Upcoming Encounters Date Type Department Care Team (Late st Contact Info) Description 09/30/2023 6:45 AM EDT Anticoagulation [facility], Mukesh Downey [address] [place] [address] [place] [address] [facility], [address] [place] [address] 10/12/2023 3:00 PM EDT Office Visit Sleep Disorders Ctr [facility] [address] [place] [phone] Isabel Diallo, [address] [place] [address] 12/05/2023 1:00 PM EDT Imaging Radiology, [address] [place] [address] 12/20/2023 11:00 AM EDT Office Visit Orthopaedics [facility] [address] [place] [address] Kian Travis, DO [address] [place] [address] 12/26/2023 2:30 PM EDT Nurse Only Rheumatology [address] [place] [phone] [place], Nurse [address] [place] [phone] 01/06/2024 2:00 PM EST Office Visit Nephrology [address] [place] [address] Charlotte Cope PA-C [address] [place] [address] 01/23/2024 2:20 PM EST Office Visit Dermatology [address] [place] [address] Amber Orozco PA-C [address] [place] [address] [place] [address] 02/02/2024 2:30 PM EST Office Visit Hematology/Oncology [facility] [address] [place] [phone] [facility]na Camp [facility] [place] [address] 02/14/2024 1:30 PM EST Office Visit Cardiology, [facility] [address] [facility] [place] [address] Jane Ashley [facility]NP [address] [facility] [place] [address] 05/15/2024 1:00 PM EDT Office Visit Nephrology [address] [place] [address] Charlotte Cope PA-C [address] [facility] [address] [place] [address] 06/06/2024 3:20 PM EDT Office Visit Family Medicine [address] [place] [phone] Cathy Fregoso MD [address] [place] [address] [place] [address] Pending Results Name Type Priority Associated Diagnoses Date /Time CULTURE, BLOOD Lab STAT 09/26/2023 1:41 PM EDT CULTURE, BLOOD Lab Routine 09/26/2023 1:41 PM EDT Scheduled Orders Name Type Priority Associated Diagnoses Orde r Schedule BASIC METABOLIC PANEL Lab Routine Retroperitoneal bleed Essential (primary) hypertension 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) Chronic kidney disease, stage 3b (HCC) Expected: 10/01/2023, Expires: 09/27/2024 CBC Lab Routine Retroperitoneal bleed Essential (primary) hypertension 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) Chronic kidney disease, stage 3b (HCC) Expected: 10/01/2023, Expires: 09/27/2024 Health Maintenance Due Date Last Done Comments COVID-19 Vaccine ( season) 2022 DXA Scan 10/22/2023 10/21/2021, 09/29, 08/28/2018, Additional history exists CKD PHOS USE SMARTSET 86167 08/16/202407/29, 05/12/2023, 11/05/2022, Additional history exists Albumin/Creatinine Ratio 08/24/2024 024, 07/19/2022, 04/06/2021, Additional history exists Depression Monitoring 08/24/2024 08/25/2023 DIG LEVEL FOR MEDICATION MONITORING YEARLY 09/20/2024 09/21/2023, 06/22/2023, 04/29/2023, Additional history exists CKD HGB USE SMARTSET [id number] 09/27/202409/27, 09/27/2023, 09/27/2023, Additional history exists DTaP,Tdap,and Td Vaccines (2 - Td or Tdap) 12/31/2029 01/01/2020 (Declined), 12/30/2009, 12/30/2009, Additional history exists Pneumococcal Vaccine: 65+ Years Completed 02/08/2017, 02/23/2006 VITAMIN D LEVEL ONCE IN A LIFETIME-USE SMARTSET# [id number] Completed 08/17/2023, 06/27/2023, 06/22/2023, Additional history exists [...] this encounter Medical Devices Implanted Type Area Filtering Machine Tender Device Identifier Shelf Expiration Date Model / Serial / Lot Lead Novus Bipolar 58cm - [id number] - [id number] Implanted:Qty: 1 on 04/11/2017 by Elda Patterson DO at [facility] Left: Heart [employer] : REPLACED BY [facility] 12/18/2018 5076-58 / [id number] / Description:RIGHT VENTRICLE LEAD Lead Novus Bipolar 52cm - [id number] - [id number] Implanted:Qty: 1 on 04/11/2017 by Elda Patterson DO at [facility] Left: Heart [employer] : REPLACED BY [facility] 12/24/2018 5076-52 / [id number] / Description:RIGHT ATRIAL ROCKY D Pacer Advisa Dr oDrsey - [id number] - [id number] Implanted:Qty: 1 on 04/11/2017 by Elda Patterson DO at [facility] Left: Chest [employer] 08/25/2018 A2DR01 / [id number] / documented as of this encounter Procedures Procedure Name Priority Date/Time Associated Diagnosis Comments BASIC METABOLIC PANEL Routine 09/28/2023 1:21 PM EDT BASIC METABOLIC PANEL Routine 09/28/2023 7:02 AM EDT CBC Routine 09/28/2023 7:02 AM EDT CBC Routine 09/27/2023 7:[address] ABD/PELVIS W IV CONTRAST - WO ORAL CONTRAST STAT 09/27/2023 6:39 PM EDT CULTURE, URINE, QUANTITATIVE Routine 09/27/2023 8:39 AM EDT BASIC METABOLIC PANEL Routine 09/27/2023 6:57 AM EDT PT INR Routine 09/27/2023 6:57 AM EDT CBC Routine 09/27/2023 6:57 AM EDT TYPE AND SCREEN Routine 09/27/2023 6:56 AM EDT CBC Routine 09/26/2023 8:30 PM EDT CULTURE, BLOOD Routine 09/26/2023 1:41 PM EDT CULTURE, BLOOD STAT 09/26/2023 1:41 PM EDT XR CHEST 1 VIEW STAT 09/26/2023 12:58 PM EDT Atelectasis Fever, unspecified RESPIRATORY PATHOGEN PANEL, PCR STAT 09/26/2023 12:48 PM EDT URINALYSIS, REFLEX TO CULTURE STAT 09/26/2023 12:45 PM EDT URINALYSIS, REFLEX TO CULTURE (CUP ONLY) STAT 09/26/2023 12:45 PM EDT URINALYSIS, REFLEX TO CULTURE (NOT FOR NEUTROPENIC PATIENTS) STAT 09/26/2023 12:45 PM EDT HEPARIN, UNFRACTIONATED STAT 09/26/2023 8:59 AM EDT BASIC METABOLIC PANEL Routine 09/26/2023 6:48 AM EDT PT INR Routine 09/26/2023 6:48 AM EDT CBC Routine 09/26/2023 6:48 AM EDT HEPARIN, UNFRACTIONATED STAT 09/26/2023 2:14 AM EDT HEPARIN, UNFRACTIONATED STAT 09/25/2023 7:30 PM EDT CBC Routine 09/25/2023 5:53 PM EDT HEPARIN, UNFRACTIONATED STAT 09/25/2023 11:06 AM EDT BASIC METABOLIC PANEL Routine 09/25/2023 5:00 AM EDT HEPARIN, UNFRACTIONATED STAT 09/25/2023 5:00 AM EDT PT INR Routine 09/25/2023 5:00 AM EDT CBC Routine 09/25/2023 5:00 AM EDT HEPARIN, UNFRACTIONATED STAT 09/24/2023 10:41 PM EDT HEPARIN, UNFRACTIONATED STAT 09/24/2023 5:14 PM EDT CBC Routine 09/24/2023 5:14 PM EDT HEPARIN, UNFRACTIONATED STAT 09/24/2023 2:52 PM EDT PT INR STAT 09/24/2023 2:52 PM EDT APTT STAT 09/24/2023 2:52 PM EDT BASIC METABOLIC PANEL Routine 09/24/2023 7:25 AM EDT TYPE AND SCREEN Routine 09/24/2023 7:25 AM EDT CBC Routine 09/24/2023 7:25 AM EDT CBC Routine 09/23/2023 8:30 PM EDT PT INR STAT 09/23/2023 9:28 AM EDT BASIC METABOLIC PANEL Routine 09/23/2023 5:20 AM EDT CBC Routine 09/23/2023 5:20 AM EDT CBC Routine 09/22/2023 7:43 PM EDT CBC STAT 09/22/2023 9:48 AM EDT BASIC METABOLIC PANEL Routine 09/22/2023 7:30 AM EDT LACTATE,WHOLE BLOOD STAT 09/22/2023 7 :30 AM EDT LACTATE STAT 09/21/2023 5:14 PM EDT LACTATE STAT 09/21/2023 11:36 AM EDT PREPARE WHOLE BLOOD Routine 09/21/2023 6 :58 AM EDT LACTATE,WHOLE BLOOD STAT 09/21/2023 6 :39 AM EDT LACTATE STAT 09/21/2023 6:39 AM EDT CBC STAT 09/21/2023 6:39 AM EDT IR ARTERIAL INTERVENTION Routine 09/21/2023 5:23 AM EDT WA ECG ROUTINE ECG W/LEAST 12 LDS I&R ONLY STAT 09/21/2023 3:36 AM EDT Symptomatic anemia BLOOD GAS, POINT OF CARE YUKI 09/21/2023 3:26 AM EDT RADIOLOGY EXAM - CT (IMAGES ONLY, NO REPORT) Routine 09/21/2023 3:25 AM EDT LACTATE, WHOLE BLOOD WITH REFLEX IF ABNORMAL STAT 09/21/2023 3:25 AM EDT DIFFERENTIAL, AUTOMATED STAT 09/21/2023 3:25 AM EDT TROPONIN T, HIGH SENSITIVITY STAT 09/21/2023 3:25 AM EDT COMPREHENSIVE METABOLIC PANEL STAT 09/21/2023 3:25 AM EDT ABO/RH STAT 09/21/2023 3:25 AM EDT TYPE AND SCREEN STAT 09/21/2023 3:25 AM EDT CBC STAT 09/21/2023 3:25 AM EDT PT INR STAT 09/21/2023 3:25 AM EDT CBC STAT 09/21/2023 3:25 AM EDT DIGOXIN LEVEL Add-on 09/21/2023 3:25 AM EDT CHEMISTRY WITH HEMATOCRIT, POINT OF CARE YUKI 09/21/2023 3:22 AM EDT documented in this encounter Results * (ABNORMAL) BASIC METABOLIC PANEL (09/28/2023 1:21 PM EDT) BUN 44(H) 6 - 20 mg/dL 09/28/2023 2:05 PM EDT [facility] Creatinine 1.7(H) 0.5 - 1.0 mg/dL 09/28/2023 2:05 PM EDT [facility] Estimated Glomerular Filtration Rate 29(L) >=60 mL/min 09/28/2023 2:05 PM EDT [facility] Comment:eGFR is calculated b ased on the CKD-EPI 2020 equation. Sodium 130(L) 135 - 146 mmol/L 09/28/2023 2:05 PM EDT [facility] Potassium 4.5 3.5 - 5.1 mmol/L 09/28/2023 2:05 PM EDT [facility] Chloride 96(L) 98 - 107 mmol/L 09/28/2023 2:05 PM EDT [facility] CO2 23 22 - 32 mmol/L 09/28/2023 2:05 PM EDT [facility] Anion Gap 11 7 - 15 mmol/L 09/28/2023 2:05 PM EDT [facility] Glucose 157(H) 70 - 120 mg/dL 09/28/2023 2:05 PM EDT [facility] Calcium 10.2 8.4 - 10.2 mg/dL 09/28/2023 2:05 PM EDT [facility] Blood Venous blood specimen / Unknown Venipuncture / Unknown 09/28/2023 1:21 PM EDT 09/28/2023 1:33 PM EDT Jesus Latif LAB BLOOD ORDERABLES [facility] [address] [place] [address] * (ABNORMAL) CBC (09/28/2023 7:02 AM EDT) WBC 11.71(H) 4.00 - 10.80 K/uL 09/28/2023 7:50 AM EDT [facility] RBC 2.92 3.85 - 5.15 M/uL 09/28/2023 7:50 AM EDT [facility] HGB 9.0(L) 12.0 - 15.3 g/dL 09/28/2023 7:50 AM EDT [facility] HCT 28.4(L) 36.0 - 45.2 % 09/28/2023 7:50 AM EDT [facility] MCV 97.3 81.5 - 97.5 fL 09/28/2023 7:50 AM EDT [facility] MCH 30.8 27.0 - 34.0 pg 09/28/2023 7:50 AM EDT [facility] MCHC 31.7 32.0 - 36.0 g/dL 09/28/2023 7:50 AM EDT [facility] RDW 13.6 11.5 - 15.5 % 09/28/2023 7:50 AM EDT [facility] PLT 257 140 - 400 K/uL 09/28/2023 7:50 AM EDT [facility] MPV 9.0 6.6 - 11.1 fL 09/28/2023 7:50 AM EDT [facility] nRBCs 0 <=0 /100 WBCs 09/28/2023 7:50 AM EDT [facility] Blood Venous blood specimen / Unknown Venipuncture / Unknown 09/28/2023 7:02 AM EDT 09/28/2023 7:14 AM EDT Moni Kaplan MD LAB BLOOD ORD ERABLES [facility] [address] [place] [address] * (ABNORMAL) BASIC METABOLIC PANEL (09/28/2023 7:02 AM EDT) BUN 39(H) 6 - 20 mg/dL 09/28/2023 8:12 AM EDT [facility] Creatinine 1.7(H) 0.5 - 1.0 mg/dL 09/28/2023 8:12 AM EDT [facility] Estimated Glomerular Filtration Rate 28(L) >=60 mL/min 09/28/2023 8:12 AM EDT [facility] Comment:eGFR is calculated b ased on the CKD-EPI 2020 equation. Sodium 128(L) 135 - 146 mmol/L 09/28/2023 8:12 AM EDT [facility] Potassium 4.0 3.5 - 5.1 mmol/L 09/28/2023 8:12 AM EDT [facility] Chloride 94(L) 98 - 107 mmol/L 09/28/2023 8:12 AM EDT [facility] CO2 26 22 - 32 mmol/L 09/28/2023 8:12 AM EDT [facility] Anion Gap 8 7 - 15 mmol/L 09/28/2023 8:12 AM EDT [facility] Glucose 146(H) 70 - 120 mg/dL 09/28/2023 8:12 AM EDT [facility] Calcium 10.5(H) 8.4 - 10.2 mg/dL 09/28/2023 8:12 AM EDT [facility] Blood Venous blood specimen / Unknown Venipuncture / Unknown 09/28/2023 7:02 AM EDT 09/28/2023 7:14 AM EDT Melinda Mendez DO LAB BLOOD ORDERABLES [facility] [address] [place] [address] * (ABNORMAL) CBC (09/27/2023 7:19 PM EDT) WBC 10.86(H) 4.00 - 10.80 K/uL 09/27/2023 8:07 PM EDT LABORATORY GM RBC 3.01 3.85 - 5.15 M/uL 09/27/2023 8:07 PM EDT [facility] HGB 9.5(L) 12.0 - 15.3 g/dL 09/27/2023 8:07 PM EDT [facility] HCT 29.9(L) 36.0 - 45.2 % 09/27/2023 8:07 PM EDT [facility] MCV 99.3 81.5 - 97.5 fL 09/27/2023 8:07 PM EDT LAB[facility] MCH 31.6 27.0 - 34.0 pg 09/27/2023 8:07 PM EDT LAB[facility] MCHC 31.8 32.0 - 36.0 g/dL 09/27/2023 8:07 PM EDT LAB[facility] RDW 13.9 11.5 - 15.5 % 09/27/2023 8:07 PM EDT [facility] PLT 248 140 - 400 K/uL 09/27/2023 8:07 PM EDT [facility] MPV 9.1 6.6 - 11.1 fL 09/27/2023 8:07 PM EDT [facility] nRBCs 0 <=0 /100 WBCs 09/27/2023 8:07 PM EDT [facility] Blood Venous blood specimen / Unknown Venipuncture / Unknown 09/27/2023 7:19 PM EDT 09/27/2023 7:39 PM EDT Moni Kaplan MD LAB BLOOD ORD ERABLES [facility] [address] [place] [address] * CT ABD/PELVIS W IV CONTRAST - WO ORAL CONTRAST (09/27/2023 6:39 PM EDT) Anatomical Region Laterality Modality Body, Abdomen, Pelvis Computed T omography 09/27/2023 7:29 PM EDT Impressions 09/27/2023 7:40 PM EDT IMPRESSION 1. Interval decrease in size of [...] abutting the stomach is not significantly changed dating back to 01/14/2022 and potentially represents an indolent neoplasm. 5. Moderate rectal stool ball. Adjacent presacral stranding favored to be secondary to the large retroperitoneal hemorrhage and less likely stercoral colitis. Correlate for local symptoms. Follow-up to resolution. 6. Additional findings are described above. Added to radiology results pathway communication system at 7:39 pm on 09/27/2023. I have personally reviewed this examination and agree with the resident/fellow physician's interpretation. Narrative 09/27/2023 7:40 PM EDT EXAM EXAM: CT ABD/PELVIS W IV CONTRAST - WO ORAL CONTRAST DATE TIME: 09/27/2023 6:39 pm HISTORY ongoing fevers and abdominal tenderness with concern for infected hematoma vs other intra-ab pathology TECHNIQUE Oral Contrast: not administered. IV Contrast: Was administered. COMPARISON Outside CT abdomen/pelvis 09/20/2023; CT chest/abdomen/pelvis 08/15/2023, 01/14/2022 FINDINGS LINES AND DEVICES: None. LOWER CHEST: Similar cardiomegaly with biatrial dilatation. Severe coronary artery calcification. Incompletely visualized cardiac pacer leads. New trace left pleural effusion. Associated left basilar atelectasis. LIVER: Within normal limits. BILE DUCTS: Within normal limits. GALLBLADDER: Within normal limits. PANCREAS: Within normal limits. SPLEEN: Within normal limits. ADRENALS: Within normal limits. KIDNEYS/URETERS: Bilateral renal cysts and too small to characterize renal hypodensities, likely cysts. No hydronephrosis or hydroureter. The retroperitoneal hematoma mildly displaces the left kidney. BOWEL: No evidence of bowel obstruction. Colonic diverticulosis without evidence of acute diverticulitis. Moderate rectal stool ball. Status post right hemicolectomy. BLADDER: Within normal limits. REPRODUCTIVE ORGANS: Hysterectomy. Bilateral ovarian cysts measuring up to 3.2 cm on the left and 2.1 cm on the right. LYMPH NODES: Within normal limits. VESSELS: Severe atherosclerosis. Ectasia of the infrarenal abdominal aorta measuring up to 2.9 cm, unchanged. PERITONEUM/RETROPERITONEUM: Decrease in size of the left retroperitoneal hematoma now measuring 11.8 x 5.6 cm in greatest axial dimension (series 3, image 66), previously 12.7 x 7.9 cm on 09/20/2023. No internal gas to suggest superimposed infection. Similar 3.3 x 4.3 cm left upper quadrant mass abutting stomach (series 3, image 33), not significantly changed dating back to 01/14/2022. Dependent presacral stranding is increased, possibly and likely related to the retroperitoneal hematoma rather than stercoral colitis. ABDOMINAL WALL/SOFT TISSUES: Within normal limits. BONES: No acute osseous abnormality. Mild chronic L3 vertebral body compression deformity. Grade 1 anterolisthesis of L3 on L4 and L4 on L5. Procedure Note Lopez Dumont II, MD - 09/27/2023 EXAM EXAM: CT ABD/PELVIS W IV CONTRAST - WO ORAL CONTRAST DATE TIME: 09/27/2023 6:39 pm HISTORY ongoing fevers and abdominal tenderness with concern for infected hematomavs other intra-ab pathology TECHNIQUE Oral Contrast: not administered. IV Contrast: Was administered. COMPARISON Outside CT abdomen/pelvis 09/20/2023; CT chest/abdomen/pelvis 08/15/2023,01/14/2022 FINDINGS LINES AND DEVICES: None. LOWER CHEST: Similar cardiomegaly with biatrial dilatation. Severecoronary artery calcification. Incompletely visualized cardiac pacerleads. New trace left pleural effusion. Associated left basilaratelectasis. LIVER: Within normal limits. BILE DUCTS: Within normal limits. GALLBLADDER: Within normal limits. PANCREAS: Within normal limits. SPLEEN: Within normal limits. ADRENALS: Within normal limits. KIDNEYS/URETERS: Bilateral renal cysts and too small to characterize renalhypodensities, likely cysts. No hydronephrosis or hydroureter. Theretroperitoneal hematoma mildly displaces the left kidney. BOWEL: No evidence of bowel obstruction. Colonic diverticulosis withoutevidence of acute diverticulitis. Moderate rectal stool ball. Status postright hemicolectomy. BLADDER: Within normal limits. REPRODUCTIVE ORGANS: Hysterectomy. Bilateral ovarian cysts measuring upto 3.2 cm on the left and 2.1 cm on the right. LYMPH NODES: Within normal limits. VESSELS: Severe atherosclerosis. Ectasia of the infrarenal abdominalaorta measuring up to 2.9 cm, unchanged. PERITONEUM/RETROPERITONEUM: Decrease in size of the left retroperitonealhematoma now measuring 11.8 x 5.6 cm in greatest axial dimension (series3, image 66), previously 12.7 x 7.9 cm on 09/20/2023. No internal gas tosuggest superimposed infection. Similar 3.3 x 4.3 cm left upper quadrantmass abutting stomach (series 3, image 33), not significantly changeddating back to 01/14/2022. Dependent presacral stranding is increased,possibly and likely related to the retroperitoneal hematoma rather thanstercoral colitis. ABDOMINAL WALL/SOFT TISSUES: Within normal limits. BONES: No acute osseous abnormality. Mild chronic L3 vertebral bodycompression deformity. Grade 1 anterolisthesis of L3 on L4 and L4 onL5. IMPRESSION IMPRESSION 1. Interval decrease in size of the still large left retroperitonealhematoma now measuring 11.8 x 5.6 cm in greatest axial dimension,previously 12.9 x 7.9 cm on 09/20/2023. No internal gas to suggestsuperimposed infection. 2. Similar cardiomegaly. 3. New trace left pleural effusion with mild associated left basilaratelectasis. 4. A 3.3 x 4.3 cm left upper quadrant mass abutting the stomach is notsignificantly changed dating back to 01/14/2022 and potentially representsan indolent neoplasm. 5. Moderate rectal stool ball. Adjacent presacral stranding favored to besecondary to the large retroperitoneal hemorrhage and less likelystercoral colitis. Correlate for local symptoms. Follow-up toresolution. 6. Additional findings are described above. Added to radiology results pathway communication system at 7:39 pm on09/27/2023. I have personally reviewed this examination and agree with the resident/fellow physician's interpretation. Jesus Latif DO RAD CT * CULTURE, URINE, QUANTITATIVE (09/27/2023 8:39 AM EDT) Culture Growth No significant growth 09/28/2023 8:32 AM EDT [facility] Urine Urine specimen obtained by clean catch procedure / Unknown Non-blood Collection / Unknown 09/27/2023 8:39 AM EDT 09/27/2023 9:09 AM EDT Mohamud Ames MD LAB MICRO - GENERAL ORDERABLES Performing Organization Address [facility] Co de Phone Number [facility] [address] [place] [address] * (ABNORMAL) PT INR (09/27/2023 6:57 AM EDT) Pathologist [facility] Prothrombin Time 15.3(H) 11.6 - 15.2 seconds 09/27/2023 8:57 AM EDT LAB[facility] INR 1.2 0.8 - 1.2 09/27/2023 8:57 AM EDT LAB[facility] Blood Venous blood specimen / Unknown Venipuncture / Unknown 09/27/2023 6:57 AM EDT 09/27/2023 7:11 AM EDT Narrative [facility] - 09/27/2023 8:57 AM EDT Warfarin Therapy INR: 2.0-3.0 conventional anticoagulation INR: 2.5-3.5 high intensity anticoagulation Mohamud Ames MD LAB BLOOD ORDERABLES Performing Organization Address [facility] Co de Phone Number [facility] [address] [place] [address] * (ABNORMAL) CBC (09/27/2023 6:57 AM EDT) WBC 11.63(H) 4.00 - 10.80 K/uL 09/27/2023 7:25 AM EDT LAB[facility] RBC 2.95 3.85 - 5.15 M/uL 09/27/2023 7:25 AM EDT LAB[facility] HGB 9.1(L) 12.0 - 15.3 g/dL 09/27/2023 7:25 AM EDT [facility] HCT 29.8(L) 36.0 - 45.2 % 09/27/2023 7:25 AM EDT [facility] MCV 101.0 81.5 - 97.5 fL 09/27/2023 7:25 AM EDT [facility] MCH 30.8 27.0 - 34.0 pg 09/27/2023 7:25 AM EDT [facility] MCHC 30.5 32.0 - 36.0 g/dL 09/27/2023 7:25 AM EDT [facility] RDW 13.8 11.5 - 15.5 % 09/27/2023 7:25 AM EDT [facility] PLT 225 140 - 400 K/uL 09/27/2023 7:25 AM EDT [facility] MPV 9.1 6.6 - 11.1 fL 09/27/2023 7:25 AM EDT [facility] nRBCs 0 <=0 /100 WBCs 09/27/2023 7:25 AM EDT [facility] Blood Venous blood specimen / Unknown Venipuncture / Unknown 09/27/2023 6:57 AM EDT 09/27/2023 7:11 AM EDT Moni Kaplan MD LAB BLOOD ORD ERABLES [facility] [address] [place] [address] * (ABNORMAL) BASIC METABOLIC PANEL (09/27/2023 6:57 AM EDT) BUN 28(H) 6 - 20 mg/dL 09/27/2023 7:52 AM EDT [facility] Creatinine 1.4(H) 0.5 - 1.0 mg/dL 09/27/2023 7:52 AM EDT [facility] Estimated Glomerular Filtration Rate 37(L) >=60 mL/min 09/27/2023 7:52 AM EDT [facility] Comment:eGFR is calculated b ased on the CKD-EPI 2020 equation. Sodium 132(L) 135 - 146 mmol/L 09/27/2023 7:52 AM EDT [facility] Potassium 4.2 3.5 - 5.1 mmol/L 09/27/2023 7:52 AM EDT [facility] Chloride 97(L) 98 - 107 mmol/L 09/27/2023 7:52 AM EDT [facility] CO2 25 22 - 32 mmol/L 09/27/2023 7:52 AM EDT [facility] Anion Gap 10 7 - 15 mmol/L 09/27/2023 7:52 AM EDT LABORATORY C Glucose 99 70 - 120 mg/dL 09/27/2023 7:52 AM EDT [facility] Calcium 10.3(H) 8.4 - 10.2 mg/dL 09/27/2023 7:52 AM EDT LABORATORY C Blood Venous blood specimen / Unknown Venipuncture / Unknown 09/27/2023 6:57 AM EDT 09/27/2023 7:11 AM EDT Melinda Mendez DO LAB BLOOD ORDERABLES Performing Organization Address [facility] Co de Phone Number [facility] [address] [place] [address] * TYPE AND SCREEN (09/27/2023 6:56 AM EDT) ABO O 09/27/2023 8:15 AM EDT LAB[facility] BLOOD BANK Rh Positive 09/27/2023 8:15 AM EDT LABORATORY [facility] BLOOD [facility] Red Blood Cell Antibody Screen Negative 09/27/2023 8:15 AM EDT LABOR[facility] BLO[facility] Specimen Expiration Date 09/30/2023 23:59 09/27/2023 8:15 AM EDT LAB[facility]ORY [facility] Blood Venous blood specimen / Unknown Venipuncture / Unknown 09/27/2023 6:56 AM EDT 09/27/2023 7:12 AM EDT Jesus Latif DO LAB BLOOD BANK TEST ORDERABLES Performing Organization Address [facility]/ZIP Co de Phone Number LABORATORY [facility] BLOOD BANK [address] [place] [address] * (ABNORMAL) CBC (09/26/2023 8:30 PM EDT) WBC 13.95(H) 4.00 - 10.80 K/uL 09/26/2023 9:16 PM EDT [facility] RBC 3.03 3.85 - 5.15 M/uL 09/26/2023 9:16 PM EDT [facility] HGB 9.4(L) 12.0 - 15.3 g/dL 09/26/2023 9:16 PM EDT [facility] HCT 29.8(L) 36.0 - 45.2 % 09/26/2023 9:16 PM EDT [facility] MCV 98.3 81.5 - 97.5 fL 09/26/2023 9:16 PM EDT [facility] MCH 31.0 27.0 - 34.0 pg 09/26/2023 9:16 PM EDT LABORATORY [facility] MCHC 31.5 32.0 - 36.0 g/dL 09/26/2023 9:16 PM EDT [facility] RDW 14.1 11.5 - 15.5 % 09/26/2023 9:16 PM EDT LABORATORY GM PLT 216 140 - 400 K/uL 09/26/2023 9:16 PM EDT [facility] MPV 9.1 6.6 - 11.1 fL 09/26/2023 9:16 PM EDT LAB[facility] nRBCs 0 <=0 /100 WBCs 09/26/2023 9:16 PM EDT LABORATORY GM Blood Venous blood specimen / Unknown Venipuncture / Unknown 09/26/2023 8:30 PM EDT 09/26/2023 9:04 PM EDT Moni Kaplan MD LAB BLOOD ORD ERABLES [facility] [address] [place] [address] * XR CHEST 1 VIEW (09/26/2023 12:58 PM EDT) Anatomical Region Laterality Modality Chest Computed Radiogr aphy 09/26/2023 3:05 PM EDT Impressions 09/26/2023 3:02 PM EDT IMPRESSION Left basilar atelectasis or scarring. Narrative 09/26/2023 3:02 PM EDT EXAM XR CHEST 1 VIEW - 09/26/2023 12:58 pm HISTORY Fever TECHNIQUE Single portable AP view the chest submitted for interpretation. COMPARISON CT dated 08/15/2023. FINDINGS Pacemaker present in the left chest with leads terminating in the right atrium and right ventricle. No abandoned or fractured leads identified. No pneumothorax identified. Left basilar atelectasis or scarring. Minimal right basilar scarring. No focal alveolar consolidation. Remainder of examination is stable. Procedure Note Mayur Perez MD - 09/26/2023 EXAM XR CHEST 1 VIEW - 09/26/2023 12:58 pm HISTORY Fever TECHNIQUE Single portable AP view the chest submitted for interpretation. COMPARISON CT dated 08/15/2023. FINDINGS Pacemaker present in the left chest with leads terminating in the rightatrium and right ventricle. No abandoned or fractured leads identified.No pneumothorax identified. Left basilar atelectasis or scarring.Minimal right basilar scarring. No focal alveolar consolidation.Remainder of examination is stable. IMPRESSION IMPRESSION Left basilar atelectasis or scarring. Jesus Latif DO RADIOLOGY (RAD GENER AL) * RESPIRATORY PATHOGEN PANEL, PCR (09/26/2023 12:48 PM EDT) Adenovirus by PCR Negative Negative 024 2:16 PM EDT [facility] [place] 229E by PCR Negative Negative 09/26/2023 2:16 PM EDT [facility] [place]avirus HKU1 by PCR Negative Negative 09/26/2023 2:16 PM EDT [facility] [place]avirus NL63 by PCR Negative Negative 09/26/2023 2:16 PM EDT [facility] [place]avirus OC43 by PCR Negative Negative 09/26/2023 2:16 PM EDT [facility] [place]avirus SARS-CoV-2 by PCR Negative Negative 09/26/2023 2:16 PM EDT [facility] [place] Human Metapneumovirus by PCR Negative Negative 09/26/2023 2:16 PM EDT [facility] [place] Rhinovirus/Enterovi cherelle by PCR Negative Negative 09/26/2023 2:16 PM EDT [facility] [place] Influenza A Virus by PCR Negative Negative 09/26/2023 2:16 PM EDT [facility] [place] Influenza B Virus by PCR Negative Negative 09/26/2023 2:16 PM EDT [facility] [place] Parainfluenza Virus 1 by PCR Negative Negative 09/26/2023 2:16 PM EDT [facility] [place] Parainfluenza Virus 2 by PCR Negative Negative 09/26/2023 2:16 PM EDT [facility] Parainfluenza Virus 3 by PCR Negative Negative 09/26/2023 2:16 PM EDT LAB[facility] Parainfluenza Virus 4 by PCR Negative Negative 09/26/2023 2:16 PM EDT [facility] Respiratory Syncytial Virus by PCR Negative Negative 09/26/2023 2:16 PM EDT LAB[facility] Bordetella pertussis by PCR Negative Negative 09/26/2023 2:16 PM EDT LAB[facility] Chlamydia pneumoniae by PCR Negative Negative 09/26/2023 2:16 PM EDT LAB[facility] Mycoplasma pneumoniae by PCR Negative Negative 09/26/2023 2:16 PM EDT LAB[facility] Bordetella parapertussis by PCR Negative Negative 09/26/2023 2:16 PM EDT LAB[facility] Comment: The primers that detect Rhinovirus may cross react with some Enterorviruses. The validation of bronchial specimens, tracheal aspirates, and throats for this assay was developed and performance characteristics determined by [employer]. The validation of alternate specimen types has not been cleared or approved by the U.S. Food and Drug Administration (FDA). It has been determined that such clearance or approval is not necessary. Upper Respiratory Mid-turbinate nasal swab / Unknown Non-blood Collection / Unknown 09/26/2023 12:48 PM EDT 09/26/2023 1:16 PM EDT Jesus Latif DO LAB MICRO - GENERAL ORDERABLES LABORATORY [address] [address] * (ABNORMAL) URINALYSIS, REFLEX TO CULTURE (09/26/2023 12:45 PM EDT) Color, Urine Yellow Colorless, Light Yellow, Yellow, Dark Yellow 09/26/2023 10:00 PM EDT LAB[facility] Clarity, Urine Clear Clear 09/26/2023 10:00 PM EDT LABORATORY C Glucose, Urine Negative Negative mg/dL 09/26/2023 10:00 PM EDT [facility] Bilirubin, Urine Negative Negative 09/26/2023 10:00 PM EDT LABORATORY C Ketone, Urine Negative Negative mg/dL 09/26/2023 10:00 PM EDT [facility] Specific [place], Urine 1.016 1.003 - 1.030 09/26/2023 10:00 PM EDT [facility] Blood, Urine Negative Negative 09/26/2023 10:00 PM EDT [facility] pH, Urine 5.5 5.0 - 7.5 Units 09/26/2023 10:00 PM EDT [facility] Protein, Urine Trace(A) Negative mg/dL 09/26/2023 10:00 PM EDT [facility] Urobilinogen, Urine Normal Normal mg/dL 09/26/2023 10:00 PM EDT LAB[facility] Nitrite, Urine Negative Negative 09/26/2023 10:00 PM EDT [facility] Esterase, Urine Small(A) Negative 09/26/2023 10:00 PM EDT [facility] RBC, Urine 0-2 0 - 2 /HPF 09/26/2023 10:00 PM EDT [facility] WBC, Urine 20-29(A) 0 - 2 /HPF 09/26/2023 10:00 PM EDT LAB[facility] Bacteria, Urine 101-150(A) 0 - 25 /HPF 09/26/2023 10:00 PM EDT LAB[facility] Hyaline, Cast, Urine 1-4(A) None /LPF 09/26/2023 10:00 PM EDT LAB[facility] Acceptable for Urine Culture Culture tube not received. Please reorder and recollect a urine culture. 09/26/2023 10:00 PM EDT LAB[facility] Urine Urine specimen obtained by clean catch procedure / Unknown Non-blood Collection / Unknown 09/26/2023 12:45 PM EDT 09/26/2023 9:50 PM EDT Jesus Latif DO LAB URINE ORDERABLES LAB[facility]AT[facility] [address] [place] [address] * URINALYSIS, REFLEX TO CULTURE (CUP ONLY) (09/26/2023 12:45 PM EDT) Pathologist [facility] Urinalysis, Reflex to Culture Specimen Specimen collected and received 09/26/2023 11:02 PM EDT LAB[facility] Urine Urine specimen obtained by clean catch procedure / Unknown 09/26/2023 12:45 PM EDT 09/26/2023 9:43 PM EDT Jesus Laitf DO LAB URINE ORDERABLES Performing Organization Address [facility] Co de Phone Number [facility] [address] [place] [address] * (ABNORMAL) HEPARIN, UNFRACTIONATED (09/26/2023 8:59 AM EDT) Pathologist [facility] Heparin, Unfractionated 0.43(H) <0.10 IU/mL 09/26/2023 9:37 AM EDT LABORATORY [facility] Comment: Unfractionated therapeutic ranges for Anti Xa activity: For Cardiac/Neurologic treatment: 0.3 to 0.6 IU/mL. For treatment of DVT or Pulmonary Embolism: 0.3 to 0.7 IU/mL. Blood Venous blood specimen / Unknown Venipuncture / Unknown 09/26/2023 8:59 AM EDT 09/26/2023 9:05 AM EDT Betito Hadley MD LAB BLOOD ORDERABLE S Performing Organization Address [facility]/State/ZIP Co de Phone Number [facility] [address] [place] [address] * PT INR (09/26/2023 6:48 AM EDT) Pathologist [facility] Prothrombin Time 14.0 11.6 - 15.2 seconds 09/26/2023 7:19 AM EDT LABORATORY [facility] INR 1.1 0.8 - 1.2 09/26/2023 7:19 AM EDT LAB[facility] Blood Venous blood specimen / Unknown Venipuncture / Unknown 09/26/2023 6:48 AM EDT 09/26/2023 6:53 AM EDT Narrative LAB[facility]ATORY [facility] - 09/26/2023 7:19 AM EDT Warfarin Therapy INR: 2.0-3.0 conventional anticoagulation INR: 2.5-3.5 high intensity anticoagulation Mohamud Ames MD LAB BLOOD ORDERABLES Performing Organization Address City/State/[facility] Co de Phone Number LABORATORY [facility] [address] [place] [address] * (ABNORMAL) CBC (09/26/2023 6:48 AM EDT) WBC 11.46(H) 4.00 - 10.80 K/uL 09/26/2023 7:06 AM EDT LAB[facility]ATORY [facility] RBC 2.97 3.85 - 5.15 M/uL 09/26/2023 7:06 AM EDT LAB[facility]ATORY [facility] HGB 9.1(L) 12.0 - 15.3 g/dL 09/26/2023 7:06 AM EDT LAB[facility]ORY [facility] HCT 30.3(L) 36.0 - 45.2 % 09/26/2023 7:06 AM EDT LAB[facility]ORY [facility] MCV 102.0 81.5 - 97.5 fL 09/26/2023 7:06 AM EDT LAB[facility]ORY [facility] MCH 30.6 27.0 - 34.0 pg 09/26/2023 7:06 AM EDT LAB[facility] MCHC 30.0 32.0 - 36.0 g/dL 09/26/2023 7:06 AM EDT LAB[facility]ORY [facility] RDW 14.0 11.5 - 15.5 % 09/26/2023 7:06 AM EDT LAB[facility] PLT 200 140 - 400 K/uL 09/26/2023 7:06 AM EDT LAB[facility] MPV 9.0 6.6 - 11.1 fL 09/26/2023 7:06 AM EDT LAB[facility] nRBCs 0 <=0 /100 WBCs 09/26/2023 7:06 AM EDT LAB[facility] Blood Venous blood specimen / Unknown Venipuncture / Unknown 09/26/2023 6:48 AM EDT 09/26/2023 6:53 AM EDT Moni Kaplan MD LAB BLOOD ORD ERABLES [facility] [address] [place] [address] * (ABNORMAL) BASIC METABOLIC PANEL (09/26/2023 6:48 AM EDT) BUN 26(H) 6 - 20 mg/dL 09/26/2023 7:25 AM EDT LAB[facility]ATORY [facility] Creatinine 1.3(H) 0.5 - 1.0 mg/dL 09/26/2023 7:25 AM EDT LAB[facility]ATORY [facility] Estimated Glomerular Filtration Rate 40(L) >=60 mL/min 09/26/2023 7:25 AM EDT LAB[facility]ATORY [facility] Comment:eGFR is calculated b ased on the CKD-EPI 2020 equation. Sodium 135 135 - 146 mmol/L 09/26/2023 7:25 AM EDT LAB[facility]AT[facility] Potassium 4.3 3.5 - 5.1 mmol/L 09/26/2023 7:25 AM EDT LAB[facility]ATORY [facility] Chloride 101 98 - 107 mmol/L 09/26/2023 7:25 AM EDT LAB[facility] CO2 26 22 - 32 mmol/L 09/26/2023 7:25 AM EDT LAB[facility] Anion Gap 8 7 - 15 mmol/L 09/26/2023 7:25 AM EDT LAB[facility]AT[facility] Glucose 119 70 - 120 mg/dL 09/26/2023 7:25 AM EDT LAB[facility]ATORY [facility] Calcium 10.3(H) 8.4 - 10.2 mg/dL 09/26/2023 7:25 AM EDT LAB[facility]ATORY [facility] Blood Venous blood specimen / Unknown Venipuncture / Unknown 09/26/2023 6:48 AM EDT 09/26/2023 6:53 AM EDT Melinda Mendez DO LAB BLOOD ORDERABLES [facility] [address] [place] [address] * (ABNORMAL) HEPARIN, UNFRACTIONATED (09/26/2023 2:14 AM EDT) Pathologist [facility] Heparin, Unfractionated 0.43(H) <0.10 IU/mL 09/26/2023 2:30 AM EDT LAB[facility] Comment: Unfractionated therapeutic ranges for Anti Xa activity: For Cardiac/Neurologic treatment: 0.3 to 0.6 IU/mL. For treatment of DVT or Pulmonary Embolism: 0.3 to 0.7 IU/mL. Blood Venous blood specimen / Unknown Venipuncture / Unknown 09/26/2023 2:14 AM EDT 09/26/2023 2:18 AM EDT Mohamud Ames MD LAB BLOOD ORDERABLES Performing Organization Address [facility] de Phone Number LABORATORY [place] [address] [place] [address] * HEPARIN, UNFRACTIONATED (09/25/2023 7:30 PM EDT) [facility] Heparin, Unfractionated <0.10 <0.10 IU/mL 09/25/2023 8:04 PM EDT LAB[facility]ORY [facility] Comment: Unfractionated therapeutic ranges for Anti Xa activity: For Cardiac/Neurologic treatment: 0.3 to 0.6 IU/mL. For treatment of DVT or Pulmonary Embolism: 0.3 to 0.7 IU/mL. Blood Venous blood specimen / Unknown Venipuncture / Unknown 09/25/2023 7:30 PM EDT 09/25/2023 7:50 PM EDT Mohamud Ames MD LAB BLOOD ORDERABLES Performing Organization Address [facility] Co de Phone Number [facility] [address] [place] [address] * (ABNORMAL) CBC (09/25/2023 5:53 PM EDT) [facility] WBC 10.93(H) 4.00 - 10.80 K/uL 09/25/2023 6:36 PM EDT LAB[facility] RBC 2.91 3.85 - 5.15 M/uL 09/25/2023 6:36 PM EDT LAB[facility] HGB 9.0(L) 12.0 - 15.3 g/dL 09/25/2023 6:36 PM EDT LAB[facility] HCT 29.2(L) 36.0 - 45.2 % 09/25/2023 6:36 PM EDT LAB[facility] MCV 100.3 81.5 - 97.5 fL 09/25/2023 6:36 PM EDT LAB[facility]ORY [facility] MCH 30.9 27.0 - 34.0 pg 09/25/2023 6:36 PM EDT LAB[facility] MCHC 30.8 32.0 - 36.0 g/dL 09/25/2023 6:36 PM EDT LAB[facility]ORY [facility] RDW 13.7 11.5 - 15.5 % 09/25/2023 6:36 PM EDT LAB[facility] PLT 189 140 - 400 K/uL 09/25/2023 6:36 PM EDT LABORATORY [facility] MPV 9.2 6.6 - 11.1 fL 09/25/2023 6:36 PM EDT LAB[facility]ORY [facility] nRBCs 0 <=0 /100 WBCs 09/25/2023 6:36 PM EDT LAB[facility] Blood Venous blood specimen / Unknown Venipuncture / Unknown 09/25/2023 5:53 PM EDT 09/25/2023 6:25 PM EDT Moni Kaplan MD LAB BLOOD ORD ERABLES [facility] [address] [place] [address] * HEPARIN, UNFRACTIONATED (09/25/2023 11:06 AM EDT) [facility] Heparin, Unfractionated <0.10 <0.10 IU/mL 09/25/2023 11:23 AM EDT LAB[facility] Comment: Unfractionated therapeutic ranges for Anti Xa activity: For Cardiac/Neurologic treatment: 0.3 to 0.6 IU/mL. For treatment of DVT or Pulmonary Embolism: 0.3 to 0.7 IU/mL. Blood Venous blood specimen / Unknown Venipuncture / Unknown 09/25/2023 11:06 AM EDT 09/25/2023 11:11 AM EDT Betito Hadley MD LAB BLOOD ORDERABLE S Performing Organization Address [facility] Co de Phone Number [facility] [address] [place] [address] * PT INR (09/25/2023 5:00 AM EDT) Prothrombin Time 14.3 11.6 - 15.2 seconds 09/25/2023 5:21 AM EDT LAB[facility]ATORY [facility] INR 1.1 0.8 - 1.2 09/25/2023 5:21 AM EDT LAB[facility] Blood Venous blood specimen / Unknown Venipuncture / Unknown 09/25/2023 5:00 AM EDT 09/25/2023 5:07 AM EDT Narrative LAB[facility]ATORY [facility] - 09/25/2023 5:21 AM EDT Warfarin Therapy INR: 2.0-3.0 conventional anticoagulation INR: 2.5-3.5 high intensity anticoagulation Mohamud Ames MD LAB BLOOD ORDERABLES Performing Organization Address [facility] Co de Phone Number [facility] [address] [place] [address] * (ABNORMAL) CBC (09/25/2023 5:00 AM EDT) WBC 9.81 4.00 - 10.80 K/uL 09/25/2023 5:19 AM EDT LAB[facility] RBC 2.64 3.85 - 5.15 M/uL 09/25/2023 5:19 AM EDT LAB[facility] HGB 8.3(L) 12.0 - 15.3 g/dL 09/25/2023 5:19 AM EDT LAB[facility] HCT 26.3(L) 36.0 - 45.2 % 09/25/2023 5:19 AM EDT LAB[facility] MCV 99.6 81.5 - 97.5 fL 09/25/2023 5:19 AM EDT LAB[facility] MCH 31.4 27.0 - 34.0 pg 09/25/2023 5:19 AM EDT LAB[facility] MCHC 31.6 32.0 - 36.0 g/dL 09/25/2023 5:19 AM EDT LAB[facility] RDW 13.8 11.5 - 15.5 % 09/25/2023 5:19 AM EDT LAB[facility]ATORY [facility] PLT 164 140 - 400 K/uL 09/25/2023 5:19 AM EDT LAB[facility]ORY [facility] MPV 8.8 6.6 - 11.1 fL 09/25/2023 5:19 AM EDT LAB[facility]ORY [facility] nRBCs 0 <=0 /100 WBCs 09/25/2023 5:19 AM EDT LAB[facility]ATORY [facility] Blood Venous blood specimen / Unknown Venipuncture / Unknown 09/25/2023 5:00 AM EDT 09/25/2023 5:07 AM EDT Moni Kaplan MD LAB BLOOD ORD ERABLES Performing Organization Address City/State/[facility] Co de Phone Number LABORATORY [facility] [address] [place] [address] * (ABNORMAL) BASIC METABOLIC PANEL (09/25/2023 5:00 AM EDT) BUN 27(H) 6 - 20 mg/dL 09/25/2023 5:37 AM EDT LAB[facility]ATORY [facility] Creatinine 1.5(H) 0.5 - 1.0 mg/dL 09/25/2023 5:37 AM EDT LAB[facility]ATORY [facility] Estimated Glomerular Filtration Rate 33(L) >=60 mL/min 09/25/2023 5:37 AM EDT LAB[facility]ATORY [facility] Comment:eGFR is calculated b ased on the CKD-EPI 2020 equation. Sodium 136 135 - 146 mmol/L 09/25/2023 5:37 AM EDT LAB[facility]ORY [facility] Potassium 4.8 3.5 - 5.1 mmol/L 09/25/2023 5:37 AM EDT LAB[facility]ORY [facility] Chloride 105 98 - 107 mmol/L 09/25/2023 5:37 AM EDT LAB[facility] CO2 25 22 - 32 mmol/L 09/25/2023 5:37 AM EDT LAB[facility] Anion Gap 6(L) 7 - 15 mmol/L 09/25/2023 5:37 AM EDT LAB[facility] Glucose 113 70 - 120 mg/dL 09/25/2023 5:37 AM EDT LAB[facility] Calcium 10.3(H) 8.4 - 10.2 mg/dL 09/25/2023 5:37 AM EDT LAB[facility] Blood Venous blood specimen / Unknown Venipuncture / Unknown 09/25/2023 5:00 AM EDT 09/25/2023 5:07 AM EDT Melinda Mendez DO LAB BLOOD ORDERABLES Performing Organization Address [facility] de Phone Number LABORATORY [place] [address] [place] [address] * (ABNORMAL) HEPARIN, UNFRACTIONATED (09/25/2023 5:00 AM EDT) Heparin, Unfractionated 0.13(H) <0.10 IU/mL 09/25/2023 5:21 AM EDT LAB[facility]ORY [facility] Comment: Unfractionated therapeutic ranges for Anti Xa activity: For Cardiac/Neurologic treatment: 0.3 to 0.6 IU/mL. For treatment of DVT or Pulmonary Embolism: 0.3 to 0.7 IU/mL. Blood Venous blood specimen / Unknown Venipuncture / Unknown 09/25/2023 5:00 AM EDT 09/25/2023 5:07 AM EDT Betito Hadley MD LAB BLOOD ORDERABLE S Performing Organization Address [facility]/ZIP Co de Phone Number LABORATORY [place] [address] [place] [address] * HEPARIN, UNFRACTIONATED (09/24/2023 10:41 PM EDT) Heparin, Unfractionated <0.10 <0.10 IU/mL 09/24/2023 11:04 PM EDT LABORATORY [facility] Comment: Unfractionated therapeutic ranges for Anti Xa activity: For Cardiac/Neurologic treatment: 0.3 to 0.6 IU/mL. For treatment of DVT or Pulmonary Embolism: 0.3 to 0.7 IU/mL. Blood Venous blood specimen / Unknown Venipuncture / Unknown 09/24/2023 10:41 PM EDT 09/24/2023 10:47 PM EDT Mohamud Ames MD LAB BLOOD ORDERABLES [facility] [address] [place] [address] * (ABNORMAL) CBC (09/24/2023 5:14 PM EDT) Pathologist [facility] WBC 9.64 4.00 - 10.80 K/uL 09/24/2023 5:27 PM EDT LAB[facility]ATORY [facility] RBC 2.75 3.85 - 5.15 M/uL 09/24/2023 5:27 PM EDT LAB[facility] HGB 8.5(L) 12.0 - 15.3 g/dL 09/24/2023 5:27 PM EDT LABORATORY C HCT 27.1(L) 36.0 - 45.2 % 09/24/2023 5:27 PM EDT LABORATORY [facility] MCV 98.5 81.5 - 97.5 fL 09/24/2023 5:27 PM EDT LABORATORY [facility] MCH 30.9 27.0 - 34.0 pg 09/24/2023 5:27 PM EDT LABORATORY [facility] MCHC 31.4 32.0 - 36.0 g/dL 09/24/2023 5:27 PM EDT LABOR[facility]ORY [facility] RDW 14.0 11.5 - 15.5 % 09/24/2023 5:27 PM EDT LABORATORY [facility] PLT 159 140 - 400 K/uL 09/24/2023 5:27 PM EDT LABORATORY [facility] MPV 8.7 6.6 - 11.1 fL 09/24/2023 5:27 PM EDT LABORAT[facility] nRBCs 0 <=0 /100 WBCs 09/24/2023 5:27 PM EDT LABOR[facility]ORY [facility] Blood Venous blood specimen / Unknown Venipuncture / Unknown 09/24/2023 5:14 PM EDT 09/24/2023 5:19 PM EDT Moni Kaplan MD LAB BLOOD ORD ERABLES Performing Organization Address [facility] Co de Phone Number LABORATORY [facility] [address] [place] [address] * HEPARIN, UNFRACTIONATED (09/24/2023 5:14 PM EDT) Pathologist [facility] Heparin, Unfractionated <0.10 <0.10 IU/mL 09/24/2023 5:56 PM EDT LABORATORY [facility] Comment: Unfractionated therapeutic ranges for Anti Xa activity: For Cardiac/Neurologic treatment: 0.3 to 0.6 IU/mL. For treatment of DVT or Pulmonary Embolism: 0.3 to 0.7 IU/mL. Blood Venous blood specimen / Unknown Venipuncture / Unknown 09/24/2023 5:14 PM EDT 09/24/2023 5:19 PM EDT Mohamud Ames MD LAB BLOOD ORDERABLES Performing Organization Address [facility] de Phone Number LABORATORY [facility] [address] [place] [address] * PT INR (09/24/2023 2:52 PM EDT) [facility] Prothrombin Time 13.7 11.6 - 15.2 seconds 09/24/2023 3:10 PM EDT LABORATORY [facility] INR 1.1 0.8 - 1.2 09/24/2023 3:10 PM EDT LABOR[facility] Blood Venous blood specimen / Unknown Venipuncture / Unknown 09/24/2023 2:52 PM EDT 09/24/2023 2:57 PM EDT Narrative LABORAT[facility] - 09/24/2023 3:10 PM EDT Warfarin Therapy INR: 2.0-3.0 conventional anticoagulation INR: 2.5-3.5 high intensity anticoagulation Mohamud Ames MD LAB BLOOD ORDERABLES Performing Organization Address [facility] Co de Phone Number LABORATORY [facility] [address] [place] [address] * HEPARIN, UNFRACTIONATED (09/24/2023 2:52 PM EDT) Pathologist [facility] Heparin, Unfractionated <0.10 <0.10 IU/mL 09/24/2023 3:16 PM EDT LABORATORY [facility] Comment: Unfractionated therapeutic ranges for Anti Xa activity: For Cardiac/Neurologic treatment: 0.3 to 0.6 IU/mL. For treatment of DVT or Pulmonary Embolism: 0.3 to 0.7 IU/mL. Blood Venous blood specimen / Unknown Venipuncture / Unknown 09/24/2023 2:52 PM EDT 09/24/2023 2:57 PM EDT Mohamud Ames MD LAB BLOOD ORDERABLES Performing Organization Address City/[facility]/ZIP Co de Phone Number LABORATORY [address] [address] * APTT (09/24/2023 2:52 PM EDT) [facility] aPTT 33 21 - 38 seconds 09/24/2023 3:16 PM EDT LABORATORY [facility] Blood Venous blood specimen / Unknown Venipuncture / Unknown 09/24/2023 2:52 PM EDT 09/24/2023 2:57 PM EDT Narrative LABORATORY [facility] - 09/24/2023 3:16 PM EDT Anticoagulation may affect testing. Refer to [facility] Test Catalog for a list of effects. Mohamud Ames MD LAB BLOOD ORDERABLES Performing Organization Address City/[facility]/ZIP Co de Phone Number LABORATORY [address] [address] * TYPE AND SCREEN (09/24/2023 7:25 AM EDT) Pathologist [facility] ABO O 09/24/2023 8:52 AM EDT LABORATORY [facility] BLOOD BANK Rh Positive 09/24/2023 8:52 AM EDT LABORATORY [facility] BLOOD [facility] Red Blood Cell Antibody Screen Negative 09/24/2023 8:52 AM EDT LABORATORY [facility] BLOOD [facility] Specimen Expiration Date 09/27/2023 23:59 09/24/2023 8:52 AM EDT LABORATORY [facility] BLO[facility] Blood Venous blood specimen / Unknown Venipuncture / Unknown 09/24/2023 7:25 AM EDT 09/24/2023 7:42 AM EDT Jesus Bhavya TOBIAS LAB BLOOD BANK TEST ORDERABLES LABORATORY [facility] BLOOD BANK [address] [place] [address] * (ABNORMAL) CBC (09/24/2023 7:25 AM EDT) WBC 10.09 4.00 - 10.80 K/uL 09/24/2023 7:56 AM EDT LAB[facility]ATORY [facility] RBC 2.81 3.85 - 5.15 M/uL 09/24/2023 7:56 AM EDT LAB[facility]ATORY [facility] HGB 8.6(L) 12.0 - 15.3 g/dL 09/24/2023 7:56 AM EDT LABORATORY [facility] HCT 28.9(L) 36.0 - 45.2 % 09/24/2023 7:56 AM EDT LABORATORY [facility] MCV 102.8 81.5 - 97.5 fL 09/24/2023 7:56 AM EDT LABORATORY [facility] MCH 30.6 27.0 - 34.0 pg 09/24/2023 7:56 AM EDT LABORATORY [facility] MCHC 29.8 32.0 - 36.0 g/dL 09/24/2023 7:56 AM EDT LABORATORY [facility] RDW 13.9 11.5 - 15.5 % 09/24/2023 7:56 AM EDT LABORATORY [facility] PLT 169 140 - 400 K/uL 09/24/2023 7:56 AM EDT LAB[facility]AT[facility] MPV 9.4 6.6 - 11.1 fL 09/24/2023 7:56 AM EDT LABORAT[facility] nRBCs 0 <=0 /100 WBCs 09/24/2023 7:56 AM EDT LABORAT[facility] Blood Venous blood specimen / Unknown Venipuncture / Unknown 09/24/2023 7:25 AM EDT 09/24/2023 7:42 AM EDT Moni Kaplan MD LAB BLOOD ORD [facility] [address] [place] [address] * (ABNORMAL) BASIC METABOLIC PANEL (09/24/2023 7:25 AM EDT) BUN 29(H) 6 - 20 mg/dL 09/24/2023 8:16 AM EDT LABORATORY [facility] Creatinine 1.3(H) 0.5 - 1.0 mg/dL 09/24/2023 8:16 AM EDT LABORATORY [facility] Estimated Glomerular Filtration Rate 41(L) >=60 mL/min 09/24/2023 8:16 AM EDT LABORATORY [facility] Comment:eGFR is calculated b ased on the CKD-EPI 2020 equation. Sodium 137 135 - 146 mmol/L 09/24/2023 8:16 AM EDT LABORAT[facility] Potassium 4.8 3.5 - 5.1 mmol/L 09/24/2023 8:16 AM EDT LABORAT[facility] Chloride 104 98 - 107 mmol/L 09/24/2023 8:16 AM EDT LAB[facility]AT[facility] CO2 24 22 - 32 mmol/L 09/24/2023 8:16 AM EDT LAB[facility] Anion Gap 9 7 - 15 mmol/L 09/24/2023 8:16 AM EDT LAB[facility]AT[facility] Glucose 97 70 - 120 mg/dL 09/24/2023 8:16 AM EDT LAB[facility] Calcium 10.6(H) 8.4 - 10.2 mg/dL 09/24/2023 8:16 AM EDT LABORAT[facility] Blood Venous blood specimen / Unknown Venipuncture / Unknown 09/24/2023 7:25 AM EDT 09/24/2023 7:41 AM EDT Melinda Mendez DO LAB BLOOD ORDERABLES [facility] [place] [address] [place] [address] * (ABNORMAL) CBC (09/23/2023 8:30 PM EDT) WBC 10.97(H) 4.00 - 10.80 K/uL 09/23/2023 8:54 PM EDT LABORATORY [facility] RBC 2.71 3.85 - 5.15 M/uL 09/23/2023 8:54 PM EDT LABORATORY [facility] HGB 8.5(L) 12.0 - 15.3 g/dL 09/23/2023 8:54 PM EDT LABORATORY [facility] HCT 27.1(L) 36.0 - 45.2 % 09/23/2023 8:54 PM EDT LAB[facility]ATORY [facility] MCV 100.0 81.5 - 97.5 fL 09/23/2023 8:54 PM EDT LAB[facility]ATORY [facility] MCH 31.4 27.0 - 34.0 pg 09/23/2023 8:54 PM EDT LAB[facility]ATORY [facility] MCHC 31.4 32.0 - 36.0 g/dL 09/23/2023 8:54 PM EDT LAB[facility]ATORY [facility] RDW 14.2 11.5 - 15.5 % 09/23/2023 8:54 PM EDT LAB[facility]ATORY [facility] PLT 152 140 - 400 K/uL 09/23/2023 8:54 PM EDT LAB[facility]ATORY [facility] MPV 9.1 6.6 - 11.1 fL 09/23/2023 8:54 PM EDT LABORATORY [facility] nRBCs 0 <=0 /100 WBCs 09/23/2023 8:54 PM EDT LAB[facility]ATORY [facility] Blood Venous blood specimen / Unknown Venipuncture / Unknown 09/23/2023 8:30 PM EDT 09/23/2023 8:35 PM EDT Moni Kaplan MD LAB BLOOD ORD ERABLES [facility]AT[facility] [address] [place] [address] * PT INR (09/23/2023 9:28 AM EDT) Prothrombin Time 13.5 11.6 - 15.2 seconds 09/23/2023 10:03 AM EDT LABORATORY [facility] INR 1.0 0.8 - 1.2 09/23/2023 10:03 AM EDT LABORATORY [facility] Blood Venous blood specimen / Unknown Venipuncture / Unknown 09/23/2023 9:28 AM EDT 09/23/2023 9:44 AM EDT Narrative LABORATORY [facility] - 09/23/2023 10:03 AM EDT Warfarin Therapy INR: 2.0-3.0 conventional anticoagulation INR: 2.5-3.5 high intensity anticoagulation Ramon Vasquez DO LAB BLOOD ORDERABLES LABORATORY [facility] [address] [place] [address] * (ABNORMAL) CBC (09/23/2023 5:20 AM EDT) WBC 10.32 4.00 - 10.80 K/uL 09/23/2023 5:42 AM EDT LABORATORY [facility] RBC 2.51 3.85 - 5.15 M/uL 09/23/2023 5:42 AM EDT LABORATORY [facility] HGB 7.9(L) 12.0 - 15.3 g/dL 09/23/2023 5:42 AM EDT LABORATORY [facility] HCT 25.0(L) 36.0 - 45.2 % 09/23/2023 5:42 AM EDT LABORATORY [facility] MCV 99.6 81.5 - 97.5 fL 09/23/2023 5:42 AM EDT LABORATORY [facility] MCH 31.5 27.0 - 34.0 pg 09/23/2023 5:42 AM EDT LABORATORY [facility] MCHC 31.6 32.0 - 36.0 g/dL 09/23/2023 5:42 AM EDT LABORATORY [facility] RDW 14.0 11.5 - 15.5 % 09/23/2023 5:42 AM EDT LABORATORY [facility] PLT 138(L) 140 - 400 K/uL 09/23/2023 5:42 AM EDT LABORATORY [facility] MPV 9.3 6.6 - 11.1 fL 09/23/2023 5:42 AM EDT LABORATORY [facility] nRBCs 0 <=0 /100 WBCs 09/23/2023 5:42 AM EDT LABORATORY [facility] Blood Venous blood specimen / Unknown Venipuncture / Unknown 09/23/2023 5:20 AM EDT 09/23/2023 5:27 AM EDT Moni Kaplan MD LAB BLOOD ORD ERABLES Performing Organization Address City/[facility]/ZIP Co de Phone Number LABORATORY [facility] [address] [place] [address] * (ABNORMAL) BASIC METABOLIC PANEL (09/23/2023 5:20 AM EDT) BUN 31(H) 6 - 20 mg/dL 09/23/2023 5:56 AM EDT LABORATORY [facility] Creatinine 1.4(H) 0.5 - 1.0 mg/dL 09/23/2023 5:56 AM EDT LABORATORY [facility] Estimated Glomerular Filtration Rate 36(L) >=60 mL/min 09/23/2023 5:56 AM EDT LABORATORY [facility] Comment:eGFR is calculated b ased on the CKD-EPI 2020 equation. Sodium 136 135 - 146 mmol/L 09/23/2023 5:56 AM EDT LABORATORY [facility] Potassium 5.2(H) 3.5 - 5.1 mmol/L 09/23/2023 5:56 AM EDT LABORATORY [facility] Chloride 106 98 - 107 mmol/L 09/23/2023 5:56 AM EDT LABORATORY [facility] CO2 24 22 - 32 mmol/L 09/23/2023 5:56 AM EDT LABORATORY [facility] Anion Gap 6(L) 7 - 15 mmol/L 09/23/2023 5:56 AM EDT LABORATORY [facility] Glucose 94 70 - 120 mg/dL 09/23/2023 5:56 AM EDT LABORATORY [facility] Calcium 10.2 8.4 - 10.2 mg/dL 09/23/2023 5:56 AM EDT LABORATORY [facility] Blood Venous blood specimen / Unknown Venipuncture / Unknown 09/23/2023 5:20 AM EDT 09/23/2023 5:27 AM EDT Melinda Mendez DO LAB BLOOD ORDERABLES Performing Organization Address City/[facility]/ZIP Co de Phone Number LABORATORY [facility] [address], [place] [id number] * (ABNORMAL) CBC (09/22/2023 7:43 PM EDT) WBC 11.64(H) 4.00 - 10.80 K/uL 09/22/2023 8:04 PM EDT LABORATORY [facility] RBC 2.57 3.85 - 5.15 M/uL 09/22/2023 8:04 PM EDT LABORATORY [facility] HGB 8.1(L) 12.0 - 15.3 g/dL 09/22/2023 8:04 PM EDT LABORATORY [facility] HCT 25.2(L) 36.0 - 45.2 % 09/22/2023 8:04 PM EDT LABORATORY [facility] MCV 98.1 81.5 - 97.5 fL 09/22/2023 8:04 PM EDT LABORATORY [facility] MCH 31.5 27.0 - 34.0 pg 09/22/2023 8:04 PM EDT LABORATORY [facility] MCHC 32.1 32.0 - 36.0 g/dL 09/22/2023 8:04 PM EDT LABORATORY [facility] RDW 14.2 11.5 - 15.5 % 09/22/2023 8:04 PM EDT LABORATORY [facility] PLT 139(L) 140 - 400 K/uL 09/22/2023 8:04 PM EDT LABORATORY [facility] MPV 9.2 6.6 - 11.1 fL 09/22/2023 8:04 PM EDT LABORATORY [facility] nRBCs 0 <=0 /100 WBCs 09/22/2023 8:04 PM EDT LABORATORY [facility] Blood Venous blood specimen / Unknown Venipuncture / Unknown 09/22/2023 7:43 PM EDT 09/22/2023 7:55 PM EDT Moni Kaplan MD LAB BLOOD ORD ERABLES LABORATORY [facility] [address] [place] [address] * (ABNORMAL) CBC (09/22/2023 9:48 AM EDT) WBC 14.57(H) 4.00 - 10.80 K/uL 09/22/2023 10:14 AM EDT LABORATORY [facility] RBC 2.86 3.85 - 5.15 M/uL 09/22/2023 10:14 AM EDT LABORATORY [facility] HGB 8.7(L) 12.0 - 15.3 g/dL 09/22/2023 10:14 AM EDT LABORATORY [facility] HCT 28.4(L) 36.0 - 45.2 % 09/22/2023 10:14 AM EDT LABORATORY [facility] MCV 99.3 81.5 - 97.5 fL 09/22/2023 10:14 AM EDT LABORATORY [facility] MCH 30.4 27.0 - 34.0 pg 09/22/2023 10:14 AM EDT LABORATORY [facility] MCHC 30.6 32.0 - 36.0 g/dL 09/22/2023 10:14 AM EDT LABORATORY [facility] RDW 14.1 11.5 - 15.5 % 09/22/2023 10:14 AM EDT LABORATORY [facility] PLT 155 140 - 400 K/uL 09/22/2023 10:14 AM EDT LABORATORY [facility] MPV 9.0 6.6 - 11.1 fL 09/22/2023 10:14 AM EDT LABORATORY [facility] nRBCs 0 <=0 /100 WBCs 09/22/2023 10:14 AM EDT LABORATORY [facility] Blood Venous blood specimen / Unknown Venipuncture / Unknown 09/22/2023 9:48 AM EDT 09/22/2023 9:57 AM EDT Ramon Vasquez DO LAB BLOOD ORDERABLES Performing Organization Address City/State/[facility] Co de Phone Number LABORATORY [facility] [address] [place] [address] * LACTATE,WHOLE BLOOD (09/22/2023 7:30 AM EDT) [facility] Lactate, Whole Blood 1.3 0.4 - 2.0 mmol/L 09/22/2023 7:40 AM EDT LABORATORY [facility] Blood Venous blood specimen / Unknown Venipuncture / Unknown 09/22/2023 7:30 AM EDT 09/22/2023 7:36 AM EDT Ramon Vasquez DO LAB BLOOD ORDERABLES LABORATORY [facility] [address], [place] [id number] * (ABNORMAL) BASIC METABOLIC PANEL (09/22/2023 7:30 AM EDT) BUN 32(H) 6 - 20 mg/dL 09/22/2023 8:18 AM EDT LABORATORY [facility] Creatinine 1.5(H) 0.5 - 1.0 mg/dL 09/22/2023 8:18 AM EDT LABORATORY [facility] Estimated Glomerular Filtration Rate 35(L) >=60 mL/min 09/22/2023 8:18 AM EDT LABORATORY [facility] Comment:eGFR is calculated b ased on the CKD-EPI 2020 equation. Sodium 136 135 - 146 mmol/L 09/22/2023 8:18 AM EDT LABORATORY [facility] Potassium 4.7 3.5 - 5.1 mmol/L 09/22/2023 8:18 AM EDT LABORATORY [facility] Chloride 104 98 - 107 mmol/L 09/22/2023 8:18 AM EDT LABORATORY [facility] CO2 25 22 - 32 mmol/L 09/22/2023 8:18 AM EDT LABORATORY [facility] Anion Gap 7 7 - 15 mmol/L 09/22/2023 8:18 AM EDT LABORATORY [facility] Glucose 103 70 - 120 mg/dL 09/22/2023 8:18 AM EDT LABORATORY [facility] Calcium 10.1 8.4 - 10.2 mg/dL 09/22/2023 8:18 AM EDT LABORATORY C Blood Venous blood specimen / Unknown Venipuncture / Unknown 09/22/2023 7:30 AM EDT 09/22/2023 7:36 AM EDT Melinda Mendez DO LAB BLOOD ORDERABLES LABORATORY C [address] [place] [address] * (ABNORMAL) LACTATE (09/21/2023 5:14 PM EDT) Lactate 2.1(H) 0.4 - 2.0 mmol/L 09/21/2023 5:50 PM EDT LABORATORY [facility] Blood Venous blood specimen / Unknown Venipuncture / Unknown 09/21/2023 5:14 PM EDT 09/21/2023 5:20 PM EDT [facility] LAB BLOOD ORDERABLES Performing Organization Address City/[facility]/ZIP Co de Phone Number LABORATORY [facility] [address] [place] [address] * (ABNORMAL) LACTATE (09/21/2023 11:36 AM EDT) Lactate 3.6(H) 0.4 - 2.0 mmol/L 09/21/2023 12:20 PM EDT LABORATORY [facility] Blood Venous blood specimen / Unknown Venipuncture / Unknown 09/21/2023 11:36 AM EDT 09/21/2023 11:49 AM EDT [facility] LAB BLOOD ORDERABLES Performing Organization Address City/[facility] Co de Phone Number LABORATORY [facility] [address] [place] [address] * PREPARE WHOLE BLOOD (09/21/2023 6:58 AM EDT) Unit Product Code [id number] 09/22/2023 2:10 PM EDT LABORATORY [facility] BLOOD BANK Unit Number [id number] 09/22/2023 2:10 PM EDT LABORATORY C BLOOD BANK Unit ABO O 09/22/2023 2:10 PM EDT LABORATORY [facility] BLOOD BANK Unit Rh NEG 09/22/2023 2:10 PM EDT LABORATORY [facility] BLOOD BANK Unit Status PT 09/22/2023 2:10 PM EDT LABORATORY C BLOOD BANK Unit Blood Type ONEG 09/22/2023 2:10 PM EDT LABORATORY [facility] BLOOD BANK Unit Expiration [id number] 09/22/2023 2:10 PM EDT LABORATORY [facility] BLOOD BANK Unit Barcode [id number] 09/22/2023 2:10 PM EDT LABORATORY C BLOOD BANK Unit Crossmatch Compatible 09/21/2023 6:59 AM EDT LABORATORY [facility] BLOOD BANK 09/21/2023 6:58 AM EDT Evelyn Hernandez MD BLD BANK PRODUCT ORD ERABLES Performing Organization Address [facility] Co de Phone Number LABORATORY [facility] BLOOD BANK [address] [place] [address] * (ABNORMAL) LACTATE (09/21/2023 6:39 AM EDT) Pathologist [facility] Lactate 3.1(H) 0.4 - 2.0 mmol/L 09/21/2023 7:21 AM EDT LABORATORY [facility] Blood Venous blood specimen / Unknown Venipuncture / Unknown 09/21/2023 6:39 AM EDT 09/21/2023 6:46 AM EDT Melinda Mendez DO LAB BLOOD ORDERABLES Performing Organization Address [facility] Co de Phone Number LABORATORY [facility] [address] [place] [address] * (ABNORMAL) CBC (09/21/2023 6:39 AM EDT) [facility] WBC 9.43 4.00 - 10.80 K/uL 09/21/2023 6:58 AM EDT LABORATORY [facility] RBC 3.52 3.85 - 5.15 M/uL 09/21/2023 6:58 AM EDT LABORATORY [facility] HGB 10.7(L) 12.0 - 15.3 g/dL 09/21/2023 6:58 AM EDT LABORATORY [facility] HCT 35.7(L) 36.0 - 45.2 % 09/21/2023 6:58 AM EDT LABORATORY [facility] MCV 101.4 81.5 - 97.5 fL 09/21/2023 6:58 AM EDT LABORATORY [facility] MCH 30.4 27.0 - 34.0 pg 09/21/2023 6:58 AM EDT LABORATORY [facility] MCHC 30.0 32.0 - 36.0 g/dL 09/21/2023 6:58 AM EDT LABORATORY [facility] RDW 14.1 11.5 - 15.5 % 09/21/2023 6:58 AM EDT LABORATORY [facility] PLT 146 140 - 400 K/uL 09/21/2023 6:58 AM EDT LABORATORY [facility] MPV 9.3 6.6 - 11.1 fL 09/21/2023 6:58 AM EDT LABORATORY [facility] nRBCs 0 <=0 /100 WBCs 09/21/2023 6:58 AM EDT LABORATORY [facility] Blood Venous blood specimen / Unknown Venipuncture / Unknown 09/21/2023 6:39 AM EDT 09/21/2023 6:46 AM EDT Melinda Mendez DO LAB BLOOD ORDERABLES Performing Organization Address City/[facility]/ZIP Co de Phone Number LABORATORY [place] [address] [place] [address] * (ABNORMAL) LACTATE,WHOLE BLOOD (09/21/2023 6:39 AM EDT) Lactate, Whole Blood 2.7(H) 0.4 - 2.0 mmol/L 09/21/2023 6:50 AM EDT LABORATORY [facility] Blood Venous blood specimen / Unknown Venipuncture / Unknown 09/21/2023 6:39 AM EDT 09/21/2023 6:46 AM EDT [facility] DO LAB BLOOD ORDERABLES Performing Organization Address City/[facility] Co de Phone Number LABORATORY [place] [address] [place] [address] * IR ARTERIAL INTERVENTION (09/21/2023 5:23 AM EDT) Anatomical Region Laterality Modality Any X-Ray Angiograph y 09/21/2023 6:00 AM EDT Impressions 09/21/2023 6:19 AM EDT IMPRESSION: Diagnostic angiogram of the left iliolumbar, iliac artery branches, T11 intercostal, T12 subcostal, and L1-L5 lumbar arteries without evidence of active arterial extravasation. No embolization was performed. PLAN: The patient should remain supine with legs straight for two hours. If patient continues to have downtrending hemoglobin, may consider repeat CTA. Bleeding may have stopped after correction of coagulopathy. I have personally reviewed this examination and agree with the resident/fellow physician's interpretation. Narrative 09/21/2023 6:19 AM EDT PROCEDURE: Diagnostic angiography. INDICATION: 88-year-old female on warfarin presents from outside hospital with large left retroperitoneal hematoma with evidence of active arterial extravasation. ATTENDING (OPERATING PHYSICIAN): Ian Coy MD SCRUBBED RESIDENT (OPERATING PHYSICIAN): Dr. Kiersten Mays SUPPORTING PROVIDER (LUMBER INSPECTOR): RT Saira CONSENT: After a detailed discussion of the procedure, risks, benefits and alternative treatment options, informed consent was obtained. TIME OUT: A time out procedure was performed. The patient's identification was verified. Informed consent with agreement of procedure, site and position was obtained. All necessary equipment was available prior to procedure. CONTRAST: IV Optiray 320. COMPLICATIONS: None. ANESTHESIA: Local lidocaine. IV Versed. SEDATION TIME: N/A MEDICATIONS: See MAR PROCEDURE DESCRIPTION: Using real-time ultrasound guidance right common femoral artery was punctured and access was secured. Digital ultrasound images of the artery were acquired and digitally archived. A 5 Fr 10 cm sheath was placed over a wire and attached to saline infusion. A 4 Fr glide C2 catheter was placed over a Glidewire, catheterization and angiography of the left common iliac artery was performed. Arteriogram with digital subtraction angiography (DSA) was also performed. To improve visualization, catheter was vein state into the proximal internal iliac artery. DSA imaging was obtained. Based on the findings, decision was made to interrogate additional vessels. Catheter was removed and the initial 5 Fr 10 cm sheath was replaced with a 5 Fr 25 cm sheath over a wire. Using a combination of catheter and wire, left T11 intercostal artery was accessed. DSA imaging was obtained. In a similar fashion, interrogation of the left T12 intercostal and left L1 through L5 lumbar arteries was performed with a DSA imaging. Based upon the findings, flush catheter was advanced into the aorta. Aortograms were performed both suprarenal and infrarenal component. Based upon the findings, decision was made terminate the procedure. A limited right lower extremity angiogram was performed. All catheters and wires were removed. The access sheath was then removed and hemostasis was achieved using manual compression and a Mynx vascular closure device. The site was dressed. The peripheral pulses were intact. The procedure was performed under the personal supervision of Dr. Ian Coy who was present for the entire procedure. FINDINGS: 1. Access: The right common femoral artery is anechoic by ultrasound. Ultrasound-guided access was obtained. Fluoroscopic imaging demonstrates access to the common femoral artery overlying the inferomedial aspect of the right femoral head. 2. Arteriogram: Tortuous iliac arteries. Patent left internal iliac artery. Patent iliolumbar artery. No active extravasation is identified. 3. Arteriogram: Patent left T11 intercostal artery. No active extravasation. 4. Arteriogram: Patent left T12 intercostal artery. No active extravasation. 5. Arteriogram: Patent left L1 lumbar artery. No active extravasation. 6. Arteriogram: Patent left L2 lumbar artery. No active extravasation. 7. Arteriogram: Patent left L3 lumbar artery. No active extravasation. 8. Arteriogram: Patent left L4 lumbar artery. No active extravasation. 9. Arteriogram: Patent left L5 lumbar artery. No active extravasation. 10. Arteriogram: Aortogram demonstrates patent aorta with scattered atherosclerotic disease. Infrarenal abdominal aortic ectasia. No active extravasation identified. 11. Right lower extremity: Access is seen at the right common femoral artery above the bifurcation. Patent external iliac, internal iliac, common femoral and visualized superficial femoral artery and profunda. Procedure Note Ian Coy MD - 09/21/2023 PROCEDURE: Diagnostic angiography. INDICATION: 88-year-old female on warfarin presents from outside hospitalwith large left retroperitoneal hematoma with evidence of active arterialextravasation. ATTENDING (OPERATING PHYSICIAN): Ian Coy MD SCRUBBED RESIDENT (OPERATING PHYSICIAN): Dr. Kiersten Mays SUPPORTING PROVIDER (LUMBER INSPECTOR): RT Saira CONSENT: After a detailed discussion of the procedure, risks, benefits andalternative treatment options, informed consent was obtained. TIME OUT: A time out procedure was performed. The patient's identificationwas verified. Informed consent with agreement of procedure, site andposition was obtained. All necessary equipment was available prior toprocedure. CONTRAST: IV Optiray 320. COMPLICATIONS: None. ANESTHESIA: Local lidocaine. IV Versed. SEDATION TIME: N/A MEDICATIONS: See MAR PROCEDURE DESCRIPTION: Using real-time ultrasound guidance right commonfemoral artery was punctured and access was secured. Digital ultrasoundimages of the artery were acquired and digitally archived. A 5 Fr 10 cmsheath was placed over a wire and attached to saline infusion. A 4 Frglide C2 catheter was placed over a Glidewire, catheterization andangiography of the left common iliac artery was performed. Arteriogramwith digital subtraction angiography (DSA) was also performed. To improvevisualization, catheter was vein state into the proximal internal iliacartery. DSA imaging was obtained. Based on the findings, decision wasmade to interrogate additional vessels. Catheter was removed and the initial 5 Fr 10 cm sheath was replaced with a5 Fr 25 cm sheath over a wire. Using a combination of catheter and wire,left T11 intercostal artery was accessed. DSA imaging was obtained. In asimilar fashion, interrogation of the left T12 intercostal and left [id number] L5 lumbar arteries was performed with a DSA imaging. Based upon the findings, flush catheter was advanced into the aorta.Aortograms were performed both suprarenal and infrarenal component. Basedupon the findings, decision was made terminate the procedure. A limited right lower extremity angiogram was performed. All catheters andwires were removed. The access sheath was then removed and hemostasis wasachieved using manual compression and a Mynx vascular closure device. Thesite was dressed. The peripheral pulses were intact. The procedure was performed under the personal supervision of Dr. Luque who was present for the entire procedure. FINDINGS: 1. Access: The right common femoral artery is anechoic by ultrasound.Ultrasound-guided access was obtained. Fluoroscopic imaging demonstratesaccess to the common femoral artery overlying the inferomedial aspect ofthe right femoral head. 2. Arteriogram: Tortuous iliac arteries. Patent left internal iliacartery. Patent iliolumbar artery. No active extravasation isidentified. 3. Arteriogram: Patent left T11 intercostal artery. No activeextravasation. 4. Arteriogram: Patent left T12 intercostal artery. No activeextravasation. 5. Arteriogram: Patent left L1 lumbar artery. No active extravasation. 6. Arteriogram: Patent left L2 lumbar artery. No active extravasation. 7. Arteriogram: Patent left L3 lumbar artery. No active extravasation. 8. Arteriogram: Patent left L4 lumbar artery. No active extravasation. 9. Arteriogram: Patent left L5 lumbar artery. No active extravasation. 10. Arteriogram: Aortogram demonstrates patent aorta with scatteredatherosclerotic disease. Infrarenal abdominal aortic ectasia. No activeextravasation identified. 11. Right lower extremity: Access is seen at the right common femoralartery above the bifurcation. Patent external iliac, internal iliac,common femoral and visualized superficial femoral artery and profunda. IMPRESSION IMPRESSION: Diagnostic angiogram of the left iliolumbar, iliac artery branches, [id number], T12 subcostal, and L1-L5 lumbar arteries without evidence ofactive arterial extravasation. No embolization was performed. PLAN: The patient should remain supine with legs straight for two hours. If patient continues to have downtrending hemoglobin, may consider repeatCTA. Bleeding may have stopped after correction of coagulopathy. I have personally reviewed this examination and agree with the resident/fellow physician's interpretation. Alex Allan DO RAD SPECIAL PROCEDUR ES * EKG (09/21/2023 3:36 AM EDT) 09/21/2023 3:36 AM EDT Narrative Procedure Note Xenia Rojo MD - 09/21/2023 3:36 AM EDT REASON FOR STUDY: pain CONCLUSIONS: Atrial fibrillation Left ventricular hypertrophy Inferolateral ST-t abnormality consider inferolateral ischemia Abnormal ECG When compared with ECG of 12-May-2023 14:27, Criteria for Septal infarct are no longer Present T wave inversion more evident in Inferolateral leads Ventricular Rate: 96 QRS Duration: 98 QT/QTc: 380/480 ms P-R-T [place]: 0 : 6 : 224 degrees Alex Allan DO EKG [facility] CARDIOLOGY * (ABNORMAL) BLOOD GAS, POINT OF CARE (09/21/2023 3:26 AM EDT) Draw Site Venous 09/21/2023 3:29 AM EDT [facility] pH i-STAT 7.254(L) 7.350 - 7.450 09/21/2023 3:29 AM EDT [facility] pCO2 i-STAT 54.3(H) 35.0 - 45.0 mm Hg 09/21/2023 3:29 AM EDT [facility] pO2 i-STAT 17(LL) 75 - 100 mm Hg 09/21/2023 3:29 AM EDT [facility] Bicarbonate i-STAT 24.0 23.0 - 31.0 mmol/L 09/21/2023 3:29 AM EDT [facility] Base Excess i-STAT -4(L) -2 - 2 mmol/L 09/21/2023 3:29 AM EDT [facility] O2 Saturation i-STAT 17.0(L) 94.0 - 98.0 % 09/21/2023 3:29 AM EDT [facility] Venous 09/21/2023 3:26 AM EDT 09/21/2023 3:29 AM EDT No Physician Data Unknown LAB POINT OF C ARE TEST DOCKED DEVICE UNSOLICITED RESULTS [facility] [address] [place] [address] * RADIOLOGY EXAM - CT (IMAGES ONLY, NO REPORT) (09/21/2023 3:25 AM EDT) Narrative Scheduling, Silent - 09/21/2023 3:26 AM EDT This is an imaging study not interpreted or resulted by a [facility] or [facility] contracted radiologist. Evelyn Hernandez MD RAD CT * ABO/RH (09/21/2023 3:25 AM EDT) ABO O 09/21/2023 4:28 AM EDT LABORATORY [facility] BLOOD BANK Rh Positive 09/21/2023 4:28 AM EDT LABORATORY [facility] BLOOD [facility] Blood Venous blood specimen / Unknown Venipuncture / Unknown 09/21/2023 3:25 AM EDT 09/21/2023 3:30 AM EDT Evelyn Hernandez MD LAB BLOOD BANK TEST ORDERABLES LABORATORY [facility] BLO[facility] [address] [place] [address] * DIGOXIN LEVEL (09/21/2023 3:25 AM EDT) Pathologist [facility] Digoxin Level 0.8 0.5 - 1.1 ng/mL 09/21/2023 3:54 AM EDT LABORATORY [facility] Blood Venous blood specimen / Unknown Venipuncture / Unknown 09/21/2023 3:25 AM EDT 09/21/2023 3:30 AM EDT Narrative LABORATORY [facility] - 09/21/2023 3:54 AM EDT Recommended trough therapeutic ranges: 0.5 to 0.8 for heart failure 0.5 to 1.1 for atrial fibrillation Alex Allan LAB BLOOD ORDERABLES LABORATORY [facility] [address] [place] [address] * (ABNORMAL) DIFFERENTIAL, AUTOMATED (09/21/2023 3:25 AM EDT) Pathologist [facility] WBC 12.94(H) 4.00 - 10.80 K/uL 09/21/2023 3:39 AM EDT LABORATORY [facility] Neutrophils % 86.6(H) 40.0 - 75.0 % 09/21/2023 3:39 AM EDT LABORATORY [facility] Lymphocytes % 9.5(L) 18.0 - 42.0 % 09/21/2023 3:39 AM EDT LABORATORY [facility] Monocytes % 2.2 1.0 - 11.0 % 09/21/2023 3:39 AM EDT LABORATORY [facility] Eosinophils % 0.3 0.0 - 6.0 % 09/21/2023 3:39 AM EDT LABORATORY [facility] Basophils % 0.5 0.0 - 2.0 % 09/21/2023 3:39 AM EDT LABORATORY [facility] Immature Granulocytes % 0.9 0.0 - 2.0 % 09/21/2023 3:39 AM EDT LABORATORY [facility] Neutrophils 11.19(H) 1.80 - 7.70 K/uL 09/21/2023 3:39 AM EDT LABORATORY [facility] Lymphocytes 1.23 1.00 - 4.80 K/ul 09/21/2023 3:39 AM EDT LABORATORY [facility] Monocytes 0.29 0.00 - 1.10 K/uL 09/21/2023 3:39 AM EDT LABORATORY [facility] Eosinophils 0.04 0.00 - 0.70 K/uL 09/21/2023 3:39 AM EDT LABORATORY [facility] Basophils 0.07 0.00 - 0.20 K/uL 09/21/2023 3:39 AM EDT LABORATORY [facility] Immature Granulocytes 0.12 0.00 - 0.20 K/uL 09/21/2023 3:39 AM EDT LABORATORY [facility] Blood Venous blood specimen / Unknown Venipuncture / Unknown 09/21/2023 3:25 AM EDT 09/21/2023 3:30 AM EDT Evelyn Hernandez MD LAB BLOOD ORDERABLES LAB[facility]ATORY [facility] [address] [place] [address] * (ABNORMAL) CBC (09/21/2023 3:25 AM EDT) WBC 12.94(H) 4.00 - 10.80 K/uL 09/21/2023 3:39 AM EDT LABORATORY [facility] RBC 3.58 3.85 - 5.15 M/uL 09/21/2023 3:39 AM EDT LABORATORY [facility] HGB 11.0(L) 12.0 - 15.3 g/dL 09/21/2023 3:39 AM EDT LABORATORY [facility] HCT 35.5(L) 36.0 - 45.2 % 09/21/2023 3:39 AM EDT LABORATORY [facility] MCV 99.2 81.5 - 97.5 fL 09/21/2023 3:39 AM EDT LABORATORY [facility] MCH 30.7 27.0 - 34.0 pg 09/21/2023 3:39 AM EDT LABORATORY [facility] MCHC 31.0 32.0 - 36.0 g/dL 09/21/2023 3:39 AM EDT LABORATORY [facility] RDW 13.6 11.5 - 15.5 % 09/21/2023 3:39 AM EDT LABORATORY [facility] 168 140 - 400 K/uL 09/21/2023 3:39 AM EDT LABORATORY [facility] MPV 8.8 6.6 - 11.1 fL 09/21/2023 3:39 AM EDT LABORATORY [facility] nRBCs 0 <=0 /100 WBCs 09/21/2023 3:39 AM EDT LABORATORY C Blood Venous blood specimen / Unknown Venipuncture / Unknown 09/21/2023 3:25 AM EDT 09/21/2023 3:30 AM EDT Evelyn Hernandez MD LAB BLOOD ORDERABLES Performing Organization Address City/[facility] Co de Phone Number LABORATORY [facility] [address] [place] [address] * TYPE AND SCREEN (09/21/2023 3:25 AM EDT) ABO O 09/21/2023 4:23 AM EDT LABORATORY [facility] Rh Positive 09/21/2023 4:23 AM EDT LABORATORY [facility] Red Blood Cell Antibody Screen Negative 09/21/2023 4:23 AM EDT LABORATORY [facility] Specimen Expiration Date 09/24/2023 23:59 09/21/2023 4:23 AM EDT LABORATORY [facility] Blood Venous blood specimen / Unknown Venipuncture / Unknown 09/21/2023 3:25 AM EDT 09/21/2023 3:30 AM EDT Evelyn Hernandez MD LAB BLOOD BANK TEST ORDERABLES Performing Organization Address City/State/[facility] Co de Phone Number LABORATORY [facility] [address] [place], [place] [id number] * PT INR (09/21/2023 3:25 AM EDT) Prothrombin Time 14.6 11.6 - 15.2 seconds 09/21/2023 3:57 AM EDT LABORATORY [facility] INR 1.1 0.8 - 1.2 09/21/2023 3:57 AM EDT LABORATORY [facility] Blood Venous blood specimen / Unknown Venipuncture / Unknown 09/21/2023 3:25 AM EDT 09/21/2023 3:30 AM EDT Narrative LABORATORY [facility] - 09/21/2023 3:57 AM EDT Warfarin Therapy INR: 2.0-3.0 conventional anticoagulation INR: 2.5-3.5 high intensity anticoagulation Evelyn Hernandez MD LAB BLOOD ORDERABLES Performing Organization Address City/[facility]/ZIP Co de Phone Number LABORATORY [place] [address] [place] [address] * (ABNORMAL) LACTATE, WHOLE BLOOD WITH REFLEX IF ABNORMAL (09/21/2023 3:25 AM EDT) [facility] Lactate, Whole Blood 2.8(H) 0.4 - 2.0 mmol/L 09/21/2023 3:33 AM EDT LABORATORY [facility] Blood Venous blood specimen / Unknown Venipuncture / Unknown 09/21/2023 3:25 AM EDT 09/21/2023 3:30 AM EDT Evelyn Hernandez MD LAB BLOOD ORDERABLES Performing Organization Address [facility] Co de Phone Number LABORATORY [address] [address] * (ABNORMAL) TROPONIN T, HIGH SENSITIVITY (09/21/2023 3:25 AM EDT) [facility] Troponin T, High Sensitivity 48(H) <=14 ng/L 09/21/2023 3:54 AM EDT LABORATORY [facility] Blood Venous blood specimen / Unknown Venipuncture / Unknown 09/21/2023 3:25 AM EDT 09/21/2023 3:30 AM EDT Evelyn Hernandez MD LAB BLOOD ORDERABLES Performing Organization Address City/[facility]/ZIP Co de Phone Number LABORATORY [place] [address] [place] [address] * (ABNORMAL) COMPREHENSIVE METABOLIC PANEL (09/21/2023 3:25 AM EDT) BUN 28(H) 6 - 20 mg/dL 09/21/2023 3:54 AM EDT LABORATORY [facility] Creatinine 1.4(H) 0.5 - 1.0 mg/dL 09/21/2023 3:54 AM EDT LABORATORY [facility] Estimated Glomerular Filtration Rate 36(L) >=60 mL/min 09/21/2023 3:54 AM EDT LABORATORY [facility] Comment:eGFR is calculated b ased on the CKD-EPI 2020 equation. Sodium 135 135 - 146 mmol/L 09/21/2023 3:54 AM EDT LABORATORY [facility] Potassium 4.7 3.5 - 5.1 mmol/L 09/21/2023 3:54 AM EDT LABORATORY [facility] Chloride 103 98 - 107 mmol/L 09/21/2023 3:54 AM EDT LABORATORY [facility] CO2 20(L) 22 - 32 mmol/L 09/21/2023 3:54 AM EDT LABORATORY [facility] Anion Gap 12 7 - 15 mmol/L 09/21/2023 3:54 AM EDT LABORATORY [facility] Glucose 207(H) 70 - 120 mg/dL 09/21/2023 3:54 AM EDT LABORATORY [facility] Albumin 3.5(L) 3.8 - 5.0 g/dL 09/21/2023 3:54 AM EDT LABORATORY [facility] AST 22 10 - 35 U/L 09/21/2023 3:54 AM EDT LABORATORY [facility] Alkaline Phosphatase 40 35 - 130 U/L 09/21/2023 3:54 AM EDT LABORATORY [facility] Bilirubin, Total 0.5 <=1.2 mg/dL 09/21/2023 3:54 AM EDT LABORATORY [facility] Calcium 9.7 8.4 - 10.2 mg/dL 09/21/2023 3:54 AM EDT LABORATORY [facility] Protein 5.8(L) 6.0 - 8.3 g/dL 09/21/2023 3:54 AM EDT LABORATORY [facility] ALT 15 10 - 35 U/L 09/21/2023 3:54 AM EDT LABORATORY [facility] Blood Venous blood specimen / Unknown Venipuncture / Unknown 09/21/2023 3:25 AM EDT 09/21/2023 3:30 AM EDT Evelyn Hernandez MD LAB BLOOD ORDERABLES Performing Organization Address City/[facility]/ZIP Co de Phone Number LABORATORY [facility] [address] [place] [address] * (ABNORMAL) CHEMISTRY WITH HEMATOCRIT, POINT OF CARE (09/21/2023 3:22 AM EDT) Sodium i-STAT 139 135 - 146 mmol/L 09/21/2023 3:29 AM EDT [facility] Potassium i-STAT 4.7 3.5 - 5.1 mmol/L 09/21/2023 3:29 AM EDT [facility] Chloride i-STAT 104 98 - 107 mmol/L 09/21/2023 3:29 AM EDT [facility] Calcium Ionized i-STAT 1.30 1.13 - 1.32 mmol/L 09/21/2023 3:29 AM EDT [facility] CO2 i-STAT 25 22 - 32 mmol/L 09/21/2023 3:29 AM EDT [facility] Glucose i-STAT 185(H) 70 - 120 mg/dL 09/21/2023 3:29 AM EDT [facility] BUN i-STAT 29(H) 6 - 20 mg/dL 09/21/2023 3:29 AM EDT [facility] Creatinine i-STAT 1.5(H) 0.5 - 1.0 mg/dL 09/21/2023 3:29 AM EDT [facility] Hematocrit i-STAT 35(L) 36 - 45 % 09/21/2023 3:29 AM EDT [facility] Hemoglobin i-STAT 11.9(L) 12.0 - 15.3 g/dL 09/21/2023 3:29 AM EDT [facility] Anion Gap i-STAT 15 7 - 15 mmol/L 09/21/2023 3:29 AM EDT [facility] Blood 09/21/2023 3:22 AM EDT 09/21/2023 3:28 AM EDT No Physician Data Unknown LAB POINT OF C ARE TEST DOCKED DEVICE UNSOLICITED RESULTS [facility] [address] [place] [address] documented in this encounter Visit Diagnoses Diagnosis Tortuous artery (HCC)- Primary Symptomatic anemia Retroperitoneal hematoma Hemorrhage, unspecified Chest pain Chest pain, unspecified Atherosclerosis of aorta (HCC) Atherosclerosis of aorta 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 Long-term (current) use of anticoagulants Atelectasis Pulmonary collapse Fever, unspecified Retroperitoneal bleed Hemorrhage, unspecified Essential (primary) hypertension Unspecified essential hypertension 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) Chronic kidney disease, stage 3b (HCC) Chronic diastolic heart failure (HCC) Chronic diastolic heart failure Paroxysmal atrial fibrillation (HCC) Atrial fibrillation Tachy-kraig syndrome (HCC) Sinoatrial node dysfunction 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) Carpal tunnel syndrome Senile osteoporosis Moderate mitral regurgitation Mitral valve disorders Gastroesophageal reflux disease without esophagitis Esophageal reflux Hyperparathyroidism, primary (HCC) Primary hyperparathyroidism Degeneration of lumbosacral intervertebral disc Degeneration of lumbar or lumbosacral intervertebral disc Anxiety state Anxiety state, unspecified Dyslipidemia, goal LDL below 70 Other and unspecified hyperlipidemia Varicose vein of leg Asymptomatic varicose veins Cardiac pacemaker in situ MARTI (obstructive sleep apnea) Obstructive sleep apnea (adult) (pediatric) Moderate episode of recurrent major depressive disorder (HCC) Chronic kidney disease, stage 3b (HCC) History of colon cancer Personal history of malignant neoplasm of large intestine History of DVT (deep vein thrombosis) Personal history of venous thrombosis and embolism Essential (primary) hypertension Unspecified essential hypertension History of hemicolectomy Retroperitoneal bleed Hemorrhage, unspecified Hypotension due to hypovolemia Acute blood loss anemia Acute posthemorrhagic anemia documented in this encounter Administered Medications Inactive Administered Medications - up to 3 most recent administrations Medication Order MAR Action Action Date Dose Rate Site Acetaminophen (Tylenol) tab 650 mg 650 mg, Oral, Q4H PRN Fever >38C(100.5F), Pain, Mild, Pain, Moderate, Pain, Severe, Starting on Tue09/21/23 at 0444, Until Tue09/22/23 at 2021, Maximum of 4 grams (4000 mg) per day. Given 09/22/2023 6:29 PM EDT 650 mg Given 09/22/2023 10:15 AM EDT 650 mg Given 09/21/2023 8:55 PM EDT 650 mg Acetaminophen (Tylenol) tab 650 mg 650 mg, Oral, Q4H PRN Fever >38C(100.5F), Pain, Mild, Starting on Tue09/22/23 at 2022, Until Tue09/28/23 at 2331, Maximum of 4 grams (4000 mg) per day. Given 09/28/2023 6:15 PM EDT 650 mg Given 09/28/2023 8:19 AM EDT 650 mg Given 09/27/2023 10:43 AM EDT 650 mg Apixaban (Eliquis) tab 2.5 mg 2.5 mg, Oral, BID (.AM/PM), First dose on Tue09/26/23 at 2100, Until Discontinued Given 09/28/2023 8:19 AM EDT 2.5 mg Given 09/27/2023 9:24 PM EDT 2.5 mg Given 09/27/2023 8:25 AM EDT 2.5 mg atorvaSTATin (Lipitor) tab 40 mg 40 mg, Oral, HS, First dose on Tue09/21/23 at 2200, Until Discontinued Given 09/27/2023 9:25 PM EDT 40 mg Given 09/26/2023 9:11 PM EDT 40 mg Given 09/25/2023 10:37 PM EDT 40 mg buffered lidocaine 1 % inj Intradermal, ONCE PRN INTRA PROCEDURE, Starting on Tue09/21/23 at 0431, Until Tue09/21/23 at 0431, Intra-Op Given 09/21/2023 4:31 AM EDT 5 mL chlorHEXIDINE (Periogard) 0.12 % oral rinse 15 mL 15 mL, Oral mucosal membrane, BID (0800,1999), First dose on Tue09/21/23 at 0800, Until Discontinued, Include oral/gum/tooth brushing with medication. Use prepackaged oral kit suction tooth brush if available. Given 09/27/2023 9:24 PM EDT 15 mL Given 09/27/2023 8:26 AM EDT 15 mL Given 09/26/2023 8:59 PM EDT 15 mL cholecalciferol (VIT D3) (Vitamin D3) tab 1,000 Units 1,000 Units, Oral, Daily(AM), First dose on Tue09/21/23 at 0900, Until Discontinued, NOTE 1000 units = 25 mcg Given 09/28/2023 8:19 AM EDT 1, 000 Units Given 09/27/2023 8:25 AM EDT 1,000 Units Given 09/26/2023 8:52 AM EDT 1,000 Units CYANOCOBALAMIN (vitamin B-12) tab 1,000 mcg 1,000 mcg, Oral, MWF, First dose on Tue09/21/23 at 0900, Until Discontinued Given 09/28/2023 8:27 AM EDT 1,000 mc g Given 09/26/2023 8:52 AM EDT 1,000 mcg Given 09/23/2023 8:10 AM EDT 1,000 mcg Digoxin (Lanoxin) tab 125 mcg 125 mcg, Oral, MWF, First dose on Tue09/21/23 at 0930, Until Discontinued, Hold For HR Less than 60 and notify service if dose is held Given 09/28/2023 8:27 AM EDT 125 mcg Given 09/26/2023 8:52 AM EDT 125 mcg Given 09/23/2023 8:10 AM EDT 125 mcg diphenhydrAMINE (Benadryl) inj 50 mg 50 mg, IV Push, ONCE, On Tue09/27/23 at 1245, For 1 dose, [address] scan with IV contrast Given 09/27/2023 4:33 PM EDT 50 mg DULoxetine (Cymbalta) DR cap 30 mg 30 mg, Oral, Daily(AM), First dose on Tue09/21/23 at 0900, Until Discontinued Given 09/28/2023 8:19 AM EDT 30 mg Given 09/27/2023 8:25 AM EDT 30 mg Given 09/26/2023 8:52 AM EDT 30 mg Ferrous Sulfate (Feosol) tab 325 mg 325 mg, Oral, EVERY OTHER DAY, First dose on Tue09/21/23 at 0800, Until Discontinued, This med should NOT be Crushed or Chewed Given 09/27/2023 8:25 AM EDT 325 mg Given 09/25/2023 8:54 AM EDT 325 mg Given 09/23/2023 8:09 AM EDT 325 mg hEParin 1000 UNIT/ML inj 1,700 Units 1,700 Units (rounded from 1,686 Units = 30 Units/kg 56.2 kg), IV Push, PRN Other, If most recent Heparin Assay result is less than or equal to 0.2 units/mL, Starting on 09/24/23 at 1420, Until Tue09/26/23 at 2125, Repeat Heparin Assay 6 hours after bolus is administered. Send message to pharmacy if dose needed. Given 09/25/2023 8:18 PM EDT 1,700 Un its Given 09/25/2023 5:28 AM EDT 1,700 Units Given 09/24/2023 11:24 PM EDT 1,700 Units hEParin 25,000 units in 250 mL (Xa-Cardiac) infusion Intravenous, at 0-16.86 mL/hr, Start heparin as soon as baseline labs are drawn. Please select this medication from the infusion pump library! Concentration: 100 units/mL Expires 96 hours after spiking on (date) at (hour) , TITRATE, Starting on Tue09/24/23 at 1500, Until Tue09/26/23 at 1047 Rate Verify 09/26/2023 9:47 AM EDT 24 Units/kg/hr 13.49 mL/hr Nurse Change 09/26/2023 7:12 AM EDT 24 Units/kg/hr 13.49 m L/hr Rate Verify 09/26/2023 2:52 AM EDT 24 Units/kg/hr 13.49 mL /hr hEParin 25,000 units in 250 mL (Xa-Cardiac) infusion Intravenous, at 0-16.86 mL/hr, Start heparin as soon as baseline labs are drawn. Please select this medication from the infusion pump library! Concentration: 100 units/mL Expires 96 hours after spiking on (date) at (hour) , TITRATE, Starting on Tue09/26/23 at 1130, Until Tue09/26/23 at 2028 Nurse Change 09/26/2023 7:32 PM EDT 24 Units/kg/hr 13.49 mL/hr New Bag 09/26/2023 5:33 PM EDT 24 Units/kg/hr 13.49 mL/ hr Rate Verify 09/26/2023 11:30 AM EDT 24 Units/kg/hr 13.49 m L/hr Iopamidol (Isovue 300) inj 400 mL 400 mL, Intra-Arterial, ONCE, On Tue09/21/23 at 0600, For 1 dose, Intra-Op Given 09/21/2023 6:00 AM EDT 350 mL Iopamidol (Isovue 370) inj 80 mL 80 mL, Intravenous, ONCE, On Tue09/27/23 at 1915, For 1 dose, Radiology Medication Routing (Non-IR) Given 09/27/2023 7:15 PM EDT 80 mL Latanoprost (Xalatan) 0.005 % ophthalmic solution 1 Drop 1 Drop, Both eyes, HS, First dose on Tue09/23/23 at 2200, Until Discontinued Given 09/27/2023 9:22 PM EDT 1 Drop Given 09/26/2023 9:11 PM EDT 1 Drop Given 09/25/2023 10:38 PM EDT 1 Drop Lidocaine (Aspercreme) 4 % patch 1 Patch 1 Patch, Transdermal, Daily(AM), First dose (after last modification) on Tue09/22/23 at 2100, Until Discontinued, Apply patch for 12 hours then remove for 12 hours! Remove any Lidocaine patches the patient may currently be wearing prior to applying the new patch Patch Applied 09/28/2023 8:20 AM EDT 1 Patch Other-Specify Patch Applied 09/27/2023 8:20 AM EDT 1 Patch Other-Specify Patch Applied 09/26/2023 8:54 AM EDT 1 Patch Knee Right LORazepam (Ativan) tab 0.25 mg 0.25 mg, Oral, Q6H PRN Anxiety, Starting on Tue09/21/23 at 0445, Until Tue09/28/23 at 2331 Given 09/26/2023 9:18 AM EDT 0.25 mg methylPREDNISolone sodium succ (SOLU-Medrol) inj 40 mg 40 mg, Intravenous, ONCE, On Tue09/27/23 at 1100, For 1 dose, Give 5 hours prior to imaging study. Nursing to adjust administration time based on scheduled imaging study. Given 09/27/2023 12:26 PM EDT 40 mg methylPREDNISolone sodium succ (SOLU-Medrol) inj 40 mg 40 mg, Intravenous, ONCE, On Tue09/27/23 at 1430, For 1 dose, Give one hour prior to imaging study. Nursing to adjust administration time based on scheduled imaging study. Given 09/27/2023 4:33 PM EDT 40 mg metoprolol succinate XL (toPROL XL) tab 100 mg 100 mg, Oral, BID (.AM/PM), First dose on Tue09/23/23 at 2100, Until Discontinued, Hold for HR less than 60 or SBP below 100 and notify service if dose is held This med should NOT be Crushed or Chewed. Given 09/28/2023 8:19 AM EDT 100 mg Given 09/27/2023 9:24 PM EDT 100 mg Given 09/27/2023 8:25 AM EDT 100 mg Metoprolol Tartrate (Lopressor) tab 50 mg 50 mg, Oral, Q12H, First dose on Tue09/21/23 at 1045, Until Discontinued, Hold for HR less than 60 or SBP below 100 and notify service if dose is held Given 09/23/2023 8:10 AM EDT 50 mg Given 09/22/2023 8:21 PM EDT 50 mg Given 09/22/2023 8:45 AM EDT 50 mg midazolam (Versed) 2 MG/2ML inj ONCE PRN INTRA PROCEDURE, Starting on Tue09/21/23 at 0410, Until Tue09/21/23 at 0410, Intra-Op Given 09/21/2023 4:10 AM EDT 0.5 mg NSS infusion Intravenous, at 125 mL/hr, CONTINUOUS, Starting on Tue09/28/23 at 1045, Until Tue09/28/23 at 1544 New Bag 09/28/2023 2:37 PM EDT 125 mL/hr New Bag 09/28/2023 11:10 AM EDT 125 mL/hr NSS infusion Intravenous, at 125 mL/hr, CONTINUOUS, Starting on Tue09/28/23 at 1500, Until Tue09/28/23 at 1959 New Bag 09/28/2023 3:00 PM EDT 125 mL/hr omeprazole (PriLOSEC) cap 20 mg 20 mg, Oral, Daily(AM), First dose on Tue09/21/23 at 0900, Until Discontinued, This med should NOT be Crushed or Chewed Given 09/28/2023 8:19 AM EDT 20 mg Given 09/27/2023 8:25 AM EDT 20 mg Given 09/26/2023 8:47 AM EDT 20 mg ondansetron ODT (Zofran) tab 4 mg 4 mg, On Tongue, ONCE, On Tue09/26/23 at 0930, For 1 dose Given 09/26/2023 9:18 AM EDT 4 mg Oral Hygiene: Mouth Swab with dentifrice Oral, Q4H LIMITED (00;04;12;16), First dose on Tue09/21/23 at 1200, Until Discontinued, To be used with 1.5% hydrogen peroxide solution or 0.05% cetylpyridium chloride oral rinse Given 09/26/2023 4:00 PM EDT Given 09/26/2023 12:00 PM EDT Given 09/26/2023 4:00 AM EDT oxyCODONE (Roxicodone) oral syrup 2.5 mg 2.5 mg, Oral, Q4H PRN Pain, Moderate, Starting on Tue09/22/23 at 2020, Until Tue09/28/23 at 2331 Polyethylene Glycol 3350 (Miralax) oral powder 17 g 17 g (1 Packet), Oral, Daily(AM), First dose on Tue09/23/23 at 1500, Until Discontinued, Mix in 8 oz of water, juice, soda, coffee, or tea. Given 09/27/2023 8:25 AM EDT 17 g Given 09/24/2023 9:10 AM EDT 17 g Given 09/23/2023 3:17 PM EDT 17 g senna-docusate (Senokot-S) 2 Tablet 2 Tablet, Oral, Daily(AM), First dose (after last modification) on Tue09/23/23 at 1500, Until Discontinued Given 09/27/2023 8:25 AM EDT 2 Tablets Given 09/26/2023 8:52 AM EDT 2 Tablets Given 09/24/2023 9:09 AM EDT 2 Tablets sodium chloride 0.9 % flush peripheral bhargav 3 mL 3 mL, IV Push, Q8H, First dose on Tue09/21/23 at 0600, Until Discontinued, Do not flush if lock, PICC, or central line not in place; IV infusing or unable to flush. Given 09/28/2023 5:17 AM EDT 3 mL Given 09/27/2023 9:25 PM EDT 3 mL Given 09/27/2023 12:26 PM EDT 3 mL Torsemide (Demadex) tab 10 mg 10 mg, Oral, Daily(AM), First dose on Tue09/25/23 at 0930, Until Discontinued Given 09/28/2023 8:22 AM EDT 10 mg Given 09/27/2023 8:25 AM EDT 10 mg Given 09/26/2023 8:54 AM EDT 10 mg Torsemide (Demadex) tab 5 mg 5 mg, Oral, Daily(AM), First dose on Tue09/25/23 at 0930, Until Discontinued Given 09/28/2023 8:22 AM EDT 5 mg Given 09/27/2023 8:26 AM EDT 5 mg Given 09/26/2023 8:53 AM EDT 5 mg documented in this encounter Active and Recently Administered Medications Times are shown in EDT. Scheduled Medication Order 09/26/2023 09/27/2023 09/28/2023 Apixaban (Eliquis) tab 2.5 mg 2.5 mg, Oral, BID (.AM/PM), First dose on Tue09/26/23 at 2100, Until Discontinued 2057 (Given - Provider: Ken Dumas RN) 08 (Given - Provider: Ale Agosto RN)2123 (Given - Provider: Elba Clifford, LISET) 818 (Given - Provider: Rocio Gonzáles RN) atorvaSTATin (Lipitor) tab 40 mg 40 mg, Oral, HS, First dose on Tue09/21/23 at 2200, Until Discontinued 2110 (Given - Provider: Ken Dumas RN) 2124 (Given - Provider: Elba Clifford, LISET) chlorHEXIDINE (Periogard) 0.12 % oral rinse 15 mL (CANCELED) 15 mL, Oral mucosal membrane, BID (799,1999), First dose on Tue09/21/23 at 0800, Until Discontinued, Include oral/gum/tooth brushing with medication. Use prepackaged oral kit suction tooth brush if available. 0854 (Given - Provider: Ale Agosto RN)2058 (Given - Provider: Ken Dumas, LISET) 825 (Given - Provider: Ale Agosto RN)2123 (Given - Provider: Elba Clifford RN) cholecalciferol (VIT D3) (Vitamin D3) tab 1,000 Units 1,000 Units, Oral, Daily(AM), First dose on Tue09/21/23 at 0900, Until Discontinued, NOTE 1000 units = 25 mcg 0852 (Given - Provider: Ale Agosto RN) 0825 (Given - Provider: Ale Agosto RN) 08 (Given - Provider: Rocio Gonzáles, LISET) CYANOCOBALAMIN (vitamin B-12) tab 1,000 mcg 1,000 mcg, Oral, MWF, First dose on Tue09/21/23 at 0900, Until Discontinued 08 (Given - Provider: Ale Agosto RN) 08 (Given - Provider: Rocio Gonzáles, LISET) Digoxin (Lanoxin) tab 125 mcg 125 mcg, Oral, MWF, First dose on Tue09/21/23 at 0930, Until Discontinued, Hold For HR Less than 60 and notify service if dose is held 0852 (Given - Provider: Ale Agosto RN) 08 (Given - Provider: Rocio Gonzáles, LISET) diphenhydrAMINE (Benadryl) inj 50 mg (COMPLETED) 50 mg, IV Push, ONCE, On Tue09/27/23 at 1245, For 1 dose, [address] scan with IV contrast 1633 (Given - Provider: Yahaira Mohr RN) DULoxetine (Cymbalta) DR cap 30 mg 30 mg, Oral, Daily(AM), First dose on Tue09/21/23 at 0900, Until Discontinued 0852 (Given - Provider: Ale Agosto RN) 08 (Given - Provider: Ale Agosto RN) 08 (Given - Provider: Rocio Gonzáles, LISET) Ferrous Sulfate (Feosol) tab 325 mg 325 mg, Oral, EVERY OTHER DAY, First dose on Tue09/21/23 at 0800, Until Discontinued, This med should NOT be Crushed or Chewed 08 (Given - Provider: Ale Agosto RN) Iopamidol (Isovue 370) inj 80 mL (COMPLETED) 80 mL, Intravenous, ONCE, On Tue09/27/23 at 1915, For 1 dose, Radiology Medication Routing (Non-IR) 1914 (Given - Provider: Shena Snyder, RT (R)) Latanoprost (Xalatan) 0.005 % ophthalmic solution 1 Drop 1 Drop, Both eyes, HS, First dose on Tue09/23/23 at 2200, Until Discontinued 2110 (Given - Provider: Ken Dumas, LISET) 2121 (Given - Provider: Janine Faye, RN) Lidocaine (Aspercreme) 4 % patch 1 Patch 1 Patch, Transdermal, Daily(AM), First dose (after last modification) on Tue09/22/23 at 2100, Until Discontinued, Apply patch for 12 hours then remove for 12 hours! Remove any Lidocaine patches the patient may currently be wearing prior to applying the new patch 853 (Patch Applied - Provider: Ale Agosto RN)2053 (Patch Removed - Provider: Ken Dumas, LISET) 08 (Patch Applied - Provider: Ale Agosto RN - Comment: neck)2019 (Patch Removed - Provider: Janine Faye, LISET) 0820 (Patch Applied - Provider: Rocio Gonzáles RN)1909 (Due: Patch Removed - Provider: Discharge, Physician - Comment: Time automatically adjusted from order being discontinued) methylPREDNISolone sodium succ (SOLU-Medrol) inj 40 mg (COMPLETED) 40 mg, Intravenous, ONCE, On Tue09/27/23 at 1100, For 1 dose, Give 5 hours prior to imaging study. Nursing to adjust administration time based on scheduled imaging study. 1226 (Given - Provider: Yahaira Mohr, LISET) methylPREDNISolone sodium succ (SOLU-Medrol) inj 40 mg (COMPLETED) 40 mg, Intravenous, ONCE, On Tue09/27/23 at 1430, For 1 dose, Give one hour prior to imaging study. Nursing to adjust administration time based on scheduled imaging study. 1633 (Given - Provider: Yahaira Mohr, LISET) metoprolol succinate XL (toPROL XL) tab 100 mg 100 mg, Oral, BID (.AM/PM), First dose on Tue09/23/23 at 2100, Until Discontinued, Hold for HR less than 60 or SBP below 100 and notify service if dose is held This med should NOT be Crushed or Chewed. 0852 (Given - Provider: Ale Agosto RN)2057 (Given - Provider: Ken Dumas RN) 0825 (Given - Provider: Ale Agosto RN)2123 (Given - Provider: Elba Clifford, LISET) 0819 (Given - Provider: Rocio Gonzáles, LISET) omeprazole (PriLOSEC) cap 20 mg 20 mg, Oral, Daily(AM), First dose on Tue09/21/23 at 0900, Until Discontinued, This med should NOT be Crushed or Chewed 0847 (Given - Provider: Ale Agosto RN) 0825 (Given - Provider: Ale Agosto RN) 08 (Given - Provider: Rocio Gonzáles RN) ondansetron ODT (Zofran) tab 4 mg (COMPLETED) 4 mg, On Tongue, ONCE, On Tue09/26/23 at 0930, For 1 dose 0918 (Given - Provider: Ale Agosto RN) Oral Hygiene: Mouth Swab with dentifrice (CANCELED) Oral, Q4H LIMITED (00;04;12;16), First dose on Tue09/21/23 at 1200, Until Discontinued, To be used with 1.5% hydrogen peroxide solution or 0.05% cetylpyridium chloride oral rinse 0000 (Given - Provider: Marina Grigsby RN)0400 (Given - Provider: Marina Grigsby RN)1200 (Given - Provider: Ale Agosto RN)1600 (Given - Provider: Ale Agosto RN) 0000 (Not Given - Provider: Ken Dumas RN - Reason: Other- Please add reason in Comments - Comment: sleeping soundly will offer in the am)0400 (Not Given - Provider: Ken Dumas RN - Reason: Other- Please add reason in Comments - Comment: sleeping comfortably)1200 (Not Given - Provider: Yahaira Mohr RN - Reason: Parameter(s) Not Met)1600 (Not Given - Provider: Yahaira Mohr RN - Reason: Parameter(s) Not Met) Polyethylene Glycol 3350 (Miralax) oral powder 17 g 17 g (1 Packet), Oral, Daily(AM), First dose on Tue09/23/23 at 1500, Until Discontinued, Mix in 8 oz of water, juice, soda, coffee, or tea. 0900 (Not Given - Provider: Ale Agosto RN - Reason: Refused-Notify Provider) 0825 (Given - Provider: Ale Agosto RN) 09 (Not Given - Provider: Rocio Gonzáles RN - Reason: Refused-Notify Provider) senna-docusate (Senokot-S) 2 Tablet 2 Tablet, Oral, Daily(AM), First dose (after last modification) on Tue09/23/23 at 1500, Until Discontinued 0852 (Given - Provider: Ale Agosto RN) 08 (Given - Provider: Ale Agosto RN) 09 (Not Given - Provider: Rocio Gonzáles RN - Reason: Refused-Notify Provider) sodium chloride 0.9 % flush peripheral bhargav 3 mL 3 mL, IV Push, Q8H, First dose on Tue09/21/23 at 0600, Until Discontinued, Do not flush if lock, PICC, or central line not in place; IV infusing or unable to flush. 0600 (Given - Provider: Marina Grigsby RN)1400 (Given - Provider: Ale Agosto RN)2111 (Given - Provider: Ken Dumas, LISET) 0800 (Given - Provider: Ale Agosto RN)1226 (Given - Provider: Yahaira Mohr, LISET)2125 (Given - Provider: Elba Clifford, LISET) 0517 (Given - Provider: Janine Faye, LISET)1400 (Not Given - Provider: Rocio Gonzáles RN - Reason: Other-Notify Provider) Torsemide (Demadex) tab 10 mg 10 mg, Oral, Daily(AM), First dose on Tue09/25/23 at 0930, Until Discontinued 0854 (Given - Provider: Ale Agosto RN) 0825 (Given - Provider: Ale Agosto RN) 08 (Given - Provider: Rocio Gonzáles, LISET) Torsemide (Demadex) tab 5 mg 5 mg, Oral, Daily(AM), First dose on Tue09/25/23 at 0930, Until Discontinued 0853 (Given - Provider: Ale Cook, RN) 0826 (Given - Provider: Ale Agosto RN) 0822 (Given - Provider: Rocio Gonzáles, RN) Continuous Medication Order 09/26/2023 09/27/2023 09/28/2023 hEParin 25,000 units in 250 mL (Xa-Cardiac) infusion (CANCELED) Intravenous, at 0-16.86 mL/hr, Start heparin as soon as baseline labs are drawn. Please select this medication from the infusion pump library! Concentration: 100 units/mL Expires 96 hours after spiking on (date) at (hour) , TITRATE, Starting on Tue09/24/23 at 1500, Until Tue09/26/23 at 1047 0252 (Rate Verify - Provider: Marina Grigsby RN)0712 (Nurse Change - Provider: Yahaira Mohr RN)0947 (Rate Verify - Provider: Ale Agosto RN)1047 (Stopped - Provider: Ale Agosto RN) hEParin 25,000 units in 250 mL (Xa-Cardiac) infusion (CANCELED) Intravenous, at 0-16.86 mL/hr, Start heparin as soon as baseline labs are drawn. Please select this medication from the infusion pump library! Concentration: 100 units/mL Expires 96 hours after spiking on (date) at (hour) , TITRATE, Starting on Tue09/26/23 at 1130, Until Tue09/26/23 at 2028 1130 (Rate Verify - Provider: Ale Agosto RN)1733 (New Bag - Provider: Ale Agosto RN)1932 (Nurse Change - Provider: Ale Agosto RN)2100 (Stopped - Provider: Ken Dumas, LISET) NSS infusion Intravenous, at 125 mL/hr, CONTINUOUS, Starting on Tue09/28/23 at 1045, Until Tue09/28/23 at 1544 1110 (New Bag - Provider: Rocio Gonzáles, RN)1437 (New Bag - Provider: Rocio Gonzáles, LISET) NSS infusion Intravenous, at 125 mL/hr, CONTINUOUS, Starting on Tue09/28/23 at 1500, Until Tue09/28/23 at 1959 1500 (New Bag - Provider: Rocio Gonzáles, LISET)2331 (Due: Stopped) PRN Medication Order 09/26/2023 09/27/2023 09/28/2023 Acetaminophen (Tylenol) tab 650 mg 650 mg, Oral, Q4H PRN Fever >38C(100.5F), Pain, Mild, Starting on Deborah 09/22/23 at 202, Until Tue09/28/23 at 2331, Maximum of 4 grams (4000 mg) per day. 1108 (Given - Provider: Ale Agosto RN - Comment: Dr. Ames made aware. temp and mild pain (headache) reported) 1043 (Given - Provider: Ale Agosto RN) 0819 (Given - Provider: Rocio Gonzáles RN)1815 (Given - Provider: Rocio Gonzáles RN) LORazepam (Ativan) tab 0.25 mg 0.25 mg, Oral, Q6H PRN Anxiety, Starting on Tue09/21/23 at 0445, Until Tue09/28/23 at 2331 0918 (Given - Provider: Ale Agosto RN) oxyCODONE (Roxicodone) oral syrup 2.5 mg 2.5 mg, Oral, Q4H PRN Pain, Moderate, Starting on Deborah 09/22/23 at 202, Until Tue09/28/23 at 2331 documented in this encounter Additional Health Concerns Infection Onset Date Last Indicated Resolved Time Respiratory Rule-Out 09/26/2023 09/26/2023 024 2:16 PM EDT COVID-19 Rule-Out 09/26/2023 09/26/2023 09/26/2023 2:16 PM EDT documented as of this encounter Advance Directives Documents on File Type Date Recorded 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
--- OUTSIDE RECORDS SUMMARY | 2023-11-28 14:38 | External Medical Summary | Summary of Care ---
Author Name Unknown Organization [facility] Address [address] [place] [address] Phone [phone] Care Team Providers Care Appraiser Personal Property Name Role Phone Cathy Wilburn MD Primary Care Provide r Reason for Visit * Reason Onset Date Comments Mycode Lab Reorder 09/27/2023 Encounter Details Date Type Department Care Team (Late st Contact Info) Description 09/27/2023 Orders Only Outcomes Research Department [address] [place] [address] Rocio Bowens CHRA MyCode Research Other*[id number]* Allergies Active Allergy Reactions Criticality Noted Date [...] 40 MG Oral Tablet (Lipitor)Indicatio ns:Atherosclerosis of [place] coronary artery of [place] heart without angina pectoris,Dyslipide martin, goal LDL [...] lumbosacral intervertebral disc 02/04/2009 Coronary atherosclerosis of [place] coronary luis ry 02/24/2005 Senile osteoporosis 05/14/2003 [...] 09 Overview: RLP Parathyroid adenoma resection Benjy Bakerpadmini, DO July 02, 2008 ICD-10 update of inactive term Slow transit constipation 02/09/2008 Postmenopausal atrophic vaginitis 02/09/2008 07/15/2017 Hypercalcemia 07/14/2005 05/22/2007 PVC (premature ventricular contraction) 05/26/2005 04/21/2017 Ischemic cardiomyopathy 02/25/200507/29 ADVANCE DIRECTIVE INFORMATION 02/24/2005 02/08/2017 Overview: No, Advance Directive brochure given to patient at prior appointment. OSTEOARTHROS NOS-L-LEG 05/26/200406/20 TENOSYNOV HAND-WRIST NEC 04/23/2003 CERVICAL 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 LOC PRIM [id number] 02/14/200205/30 Other seborrheic keratosis 10/31/2001 0 06/06/2007 [...] as of this encounter Progress Notes * Rocio Bowens CHRA - 09/27/2023 6:14 AM EDT MyCode lab reordered. documented in this encounter Plan of Treatment Upcoming Encounters Date Type Department Care Team (Late st Contact Info) Description 09/28/2023 7:15 AM EDT Laboratory Lab Mobile Phlebotomy [facility] [address] [place] [address] [place] [phone] [facility], [facility] Mobile Home Draw [address] [place] [address] [place] [address] 09/29/2023 6:00 AM EDT Anticoagulation [facility], [address] [place] [address] [facility], [address] [place] [address] 09/30/2023 6:45 AM EDT Anticoagulation [facility], [address] [place] [address] [facility], [address] [place] [address] 10/12/2023 3:00 PM EDT Office Visit Sleep Disorders Ctr [facility] [address] [place] [phone] Isabel Diallo, [address] [place] [address] 12/05/2023 1:00 PM EDT Imaging Radiology, [address] [place] [address] 12/20/2023 11:00 AM EDT Office Visit Orthopaedics [facility] [address] [place] [address] Kian Travis, DO [address] [place] [address] 12/26/2023 2:30 PM EDT Nurse Only Rheumatology [place] [place] [address] [place] [phone] Luiz, Nurse [address] [place] [phone] 01/06/2024 2:00 PM EST Office Visit Nephrology [address] [place] [address] Charlotte Cope PA-C [address] [place] [address] 01/23/2024 2:20 PM EST Office Visit Dermatology [address] [place] [address] Amber Orozco PA-C [address] [place] [address] [place] [address] 02/02/2024 2:30 PM EST Office Visit Hematology/Oncology [facility] [address] [place] [phone] Mirna Camp CRNP [address] [place] [address] 02/14/2024 1:30 PM EST Office Visit Cardiology, [facility] [address] [facility] [place] [address] Jane Ashley CRNP [address] [place], [place] [phone] 05/15/2024 1:00 PM EDT Office Visit Nephrology [address] [place] [address] Charlotte Cope PA-C [address] [place] [address] 06/06/2024 3:20 PM EDT Office Visit Family Medicine [address] [place] [phone] Cathy Wilburn MD [address] [place] [address] [place] [address] Scheduled Orders Name Type Priority Associated Diagnoses Orde r Schedule MYCODE SUBSEQUENT ADULT Lab Routine MyCode Research Other*[id number] Every 6 Months for 2 Occurrences starting 09/27/2023 until 10/16/2024 Health Maintenance Due Date Last Done Comments COVID-19 Vaccine ( season) 2022 DXA Scan 10/22/2023 10/21/2021, 09/29, 08/28/2018, Additional history exists CKD PHOS USE SMARTSET 43918 08/16/202407/29, 05/12/2023, 11/05/2022, Additional history exists Albumin/Creatinine Ratio 08/24/2024 024, 07/19/2022, 04/06/2021, Additional history exists Depression Monitoring 08/24/2024 08/25/2023 DIG LEVEL FOR MEDICATION MONITORING YEARLY 09/20/2024 09/21/2023, 06/22/2023, 04/29/2023, Additional history exists CKD HGB USE SMARTSET 94928 09/25/202409/25, 09/26/2023, 09/25/2023, Additional history exists DTaP,Tdap,and Td Vaccines (2 - Td or Tdap) 12/31/2029 01/01/2020 (Declined), 12/30/2009, 12/30/2009, Additional history exists Pneumococcal Vaccine: 65+ Years Completed 02/08/2017, 02/23/2006 VITAMIN D LEVEL ONCE IN A LIFETIME-USE SMARTSET# 97378 Completed 08/17/2023, 06/27/2023, 06/22/2023, Additional history exists [...] this encounter Medical Devices Implanted Type Area Hydrographic Surveyor Device Identifier Shelf Expiration Date Model / Serial / Lot Lead John Rubin 58cm - [id number] - [id number] Implanted:Qty: 1 on 04/11/2017 by Elda Patterson DO at OR [facility] Left: Heart [employer] : [facility] 12/18/2018 5076-58 / [id number] / Description:RIGHT VENTRICLE LEAD Lead Novus Bipolar 52cm - [id number] - [id number] Implanted:Qty: 1 on 04/11/2017 by Elda Patterson DO at OR [facility] Left: Heart [employer] : [facility] 12/24/2018 5076-52 / [id number] / Description:RIGHT ATRIAL ROCKY D Pacer Advisa Dr Dorsey - [id number] - [id number] Implanted:Qty: 1 on 04/11/2017 by Elda Patterson DO at OR [facility] Left: Chest [employer] 08/25/2018 [id number] / [id number] / documented as of this encounter Visit Diagnoses Diagnosis MyCode Research Other*[id number]- Primary documented in this encounter Advance Directives Documents on File Type Date Recorded 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
--- OUTSIDE RECORDS SUMMARY | 2023-11-28 14:38 | External Medical Summary ---
Author Name Unknown Address Unknown Organization [id number]:LABORATORY [facility] [place] - [address] [facility] [place] [address] Laboratory Report Ordering Provider Test Date Status KIMMIE SOLOMON 09/24/2023 17:14:00 Final Get Heparin, unfractionated (Xa) level 6 hours after start of infusion and 6 hours after each dose adjustment Observation Date Value Abnormality Reference (Units ) Status Heparin, unfractionated level 09/24/2023 17:14:00 <0.10 <0.10 (IU/mL) Final Unfractionated therapeutic r anges for Anti Xa activity:
For Cardiac/Neurologic treatment: 0.3 to 0.6 IU/mL.
For treatment of DVT or Pulmonary Embolism: 0.3 to 0.7 IU/mL. Performing Location LABORATORY [facility] - [facility] [address] [facility] [place] [address]
--- OUTSIDE RECORDS SUMMARY | 2023-11-28 14:38 | External Medical Summary ---
Author Name Unknown Address Unknown Organization K01:LABORATORY [facility] - [address] [facility] [address] Laboratory Report Ordering Provider Test Date Status SERGE TRENT 09/26/2023 12:45:00 Final Observation Date Value Abnormality Reference (Units ) Status Color of Urine by Auto 09/26/2023 12:45:00 Yellow Colorless, Light Yellow, Yellow, Dark Yellow Final Clarity, Urine 09/26/2023 12:45:00 Clear Clear Final Glucose [Mass/volume] in Urine by Automated test strip 09/26/2023 12:45:00 Negative Negative (mg/dL) Final Bilirubin.total [Presence] in Urine by Automated test strip 09/26/2023 12:45:00 Negative Negative Final Ketones [Mass/volume] in Urine by Automated test strip 09/26/2023 12:45:00 Negative Negative (mg/dL) Final Specific gravity, Urine 09/26/2023 12:45:00 1.016 1.003-1.030 Final Hemoglobin [Presence] in Urine by Automated test strip 09/26/2023 12:45:00 Negative Negative Final pH, Urine 09/26/2023 12:45:00 5.5 5.0-7.5 (Units) Final Protein [Mass/volume] in Urine by Automated test strip 09/26/2023 12:45:00 Trace Abnormal Negative (mg/dL) Final Urobilinogen [Mass/volume] in Urine by Automated test strip 09/26/2023 12:45:00 Normal Normal (mg/dL) Final Nitrite [Presence] in Urine by Automated test strip 09/26/2023 12:45:00 Negative Negative Final Leukocyte esterase [Presence] in Urine by Automated test strip 09/26/2023 12:45:00 Small Abnormal Negative Final RBC, Urine 09/26/2023 12:45:00 0-2 0-2 (/HPF) Final WBC, Urine 09/26/2023 12:45:00 20-29 Abnormal 0-2 (/HPF) Final Bacteria [#/area] in Urine sediment by Microscopy high power field 09/26/2023 12:45:00 101-150 Abnormal 0-25 (/HPF) Final Hyaline casts, Urine 09/26/2023 12:45:00 1-4 Abnormal None (/LPF) Final ACCEPTABLE FOR URINE CULTURE - [facility] 09/26/2023 12:45:00 Culture tube not received. Please reorder and recollect a urine culture. Final Performing Location LABORATORY [facility] - [address] [facility] [address]
--- OUTSIDE RECORDS SUMMARY | 2023-11-28 14:38 | External Medical Summary ---
Author Name Unknown Address Unknown Organization K01:LABORATORY [facility] [place] - [address] [place] [address] Laboratory Report Ordering Provider Test Date Status VENKATESH LUNDBERG 09/27/2023 06:57:00 Final Observation Date Value Abnormality Reference (Units ) Status WBC, Total 09/27/2023 06:57:00 11.63 Above high normal 4.00-10.80 (K/uL) Final RBC 09/27/2023 06:57:00 2.95 3.85-5.15 (M/uL) Final Hemoglobin 09/27/2023 06:57:00 9.1 Below low normal 12.0-15.3 (g/dL) Final HCT 09/27/2023 06:57:00 29.8 Below low normal 36.0-45.2 (%) Final MCV 09/27/2023 06:57:00 101.0 81.5-97.5 (fL) Final MCH 09/27/2023 06:57:00 30.8 27.0-34.0 (pg) Final MCHC 09/27/2023 06:57:00 30.5 32.0-36.0 (g/dL) Final RDW 09/27/2023 06:57:00 13.8 11.5-15.5 (%) Final Platelets 09/27/2023 06:57:00 225 140-400 (K/uL) Final MPV 09/27/2023 06:57:00 9.1 6.6-11.1 (fL) Final Nucleated erythrocytes/100 leukocytes [Ratio] in Blood by Automated count 09/27/2023 06:57:00 0 <=0 (/100 WBCs) Final Performing Location LABORATORY [facility] - [address] [place] [address]
--- OUTSIDE RECORDS SUMMARY | 2023-11-28 14:38 | External Medical Summary ---
Author Name Unknown Address Unknown Organization K01:[place] [facility] [place] [facility] [address] [facility] [address] Laboratory Report Ordering Provider Test Date Status VINAYAK RILEY 09/26/2023 08:59:00 Final Get Heparin, unfractionated (Xa) level 6 hours after start of infusion and 6 hours after each dose adjustment Observation Date Value Abnormality Reference (Units ) Status Heparin, unfractionated level 09/26/2023 08:59:00 0.43 Above high normal <0.10 (IU/mL) Final Unfractionated therapeutic r anges for Anti Xa activity:
For Cardiac/Neurologic treatment: 0.3 to 0.6 IU/mL.
For treatment of DVT or Pulmonary Embolism: 0.3 to 0.7 IU/mL. Performing Location [place] [facility] [place] [facility] [address] [facility] [address]
--- OUTSIDE RECORDS SUMMARY | 2023-11-28 14:38 | External Medical Summary ---
Author Name Unknown Address Unknown Organization K01:LABORATORY [facility] [place] - [address] [place] [address] Laboratory Report Ordering Provider Test Date Status KIMMIE SOLOMON 09/27/2023 06:57:00 Final Warfarin Therapy
INR: 2 .0-3.0 conventional anticoagulation
INR: 2.5- 3.5 high intensity anticoagulation Observation Date Value Abnormality Reference (Units ) Status PT 09/27/2023 06:57:00 15.3 Above high normal 11 .6-15.2 (seconds) Final INR 09/27/2023 06:57:00 1.2 0.8-1.2 Final Performing Location LABORATORY [facility] - [address] [place] [address]
--- OUTSIDE RECORDS SUMMARY | 2023-11-28 14:38 | External Medical Summary ---
Author Name Unknown Address Unknown Organization K01:LABORATORY [facility] [place] - [address] [place] [address] Laboratory Report Ordering Provider Test Date Status SERGE TRENT 09/26/2023 13:41:00 Final Observation Date Value Abnormality Reference (Units ) Status Bacteria identified in Specimen by Culture 09/26/2023 13:41:00 No growth Final Test: Culture, Blood
Spe cimen Source: Blood, Venous
Specimen Type: Blood
Specimen Date: 09/26/2023 1341
Result Date: 10/01/2023 1402
Result Status: Final result
Resulting Lab: LAB[facility]ATORY [facility] [place]
[address]
[place] [address]

CULTURE

No growth

null Performing Location LABORATORY [facility] - [address] [place] [address]
--- OUTSIDE RECORDS SUMMARY | 2023-11-28 14:38 | External Medical Summary ---
Author Name Unknown Address Unknown Organization K01:LAB[facility]ATORY [facility] [place] [address] [place] [address] [place] [address] Laboratory Report Ordering Provider Test Date Status TIBURCIO BRUNO 09/27/2023 06:57:00 Final Observation Date Value Abnormality Reference (Units ) Status BUN 09/27/2023 06:57:00 28 Above high normal 6-20 (mg/dL) Final Creatinine 09/27/2023 06:57:00 1.4 Above high normal 0.5-1.0 (mg/dL) Final Glomerular filtration rate/1.73 sq M.predicted [Volume Rate/Area] in Serum, Plasma or Blood by Creatinine-based formula (CKD-EPI) 09/27/2023 06:57:00 37 Below low normal >=60 (mL/min) Final eGFR is calculated based on the CKD-EPI 2020 equation. Sodium 09/27/2023 06:57:00 132 Below low normal 135 -146 (mmol/L) Final Potassium 09/27/2023 06:57:00 4.2 3.5-5.1 (m mol/L) Final Cl 09/27/2023 06:57:00 97 Below low normal 98- 107 (mmol/L) Final CO2 09/27/2023 06:57:00 25 22-32 (mmo l/L) Final Anion gap 09/27/2023 06:57:00 10 7-15 (mmol /L) Final Glucose 09/27/2023 06:57:00 99 70-120 (mg /dL) Final Calcium 09/27/2023 06:57:00 10.3 Above high normal 8. 4-10.2 (mg/dL) Final Performing Location LABORATORY [facility] - [address] [place] [address]
--- OUTSIDE RECORDS SUMMARY | 2023-11-28 14:38 | External Medical Summary ---
Author Name Unknown Address Unknown Organization K01:LABORATORY [facility] [place] [place] - [facility] [address] [facility] [address] Laboratory Report Ordering Provider Test Date Status VENKATESH LUNDBERG 09/24/2023 17:14:00 Final Observation Date Value Abnormality Reference (Units ) Status WBC, Total 09/24/2023 17:14:00 9.64 4.00-10.80 (K/uL) Final RBC 09/24/2023 17:14:00 2.75 3.85-5.15 (M/uL) Final Hemoglobin 09/24/2023 17:14:00 8.5 Below low normal 12.0-15.3 (g/dL) Final HCT 09/24/2023 17:14:00 27.1 Below low normal 36.0-45.2 (%) Final MCV 09/24/2023 17:14:00 98.5 81.5-97.5 (fL) Final MCH 09/24/2023 17:14:00 30.9 27.0-34.0 (pg) Final MCHC 09/24/2023 17:14:00 31.4 32.0-36.0 (g/dL) Final RDW 09/24/2023 17:14:00 14.0 11.5-15.5 (%) Final Platelets 09/24/2023 17:14:00 159 140-400 (K/uL) Final MPV 09/24/2023 17:14:00 8.7 6.6-11.1 (fL) Final Nucleated erythrocytes/100 leukocytes [Ratio] in Blood by Automated count 09/24/2023 17:14:00 0 <=0 (/100 WBCs) Final Performing Location LABORATORY [facility] [place] [place] - [address] [facility] [address]
--- OUTSIDE RECORDS SUMMARY | 2023-11-28 14:38 | External Medical Summary ---
Author Name Unknown Address Unknown Organization K01:[facility] - [address] [facility] [address] Laboratory Report Ordering Provider Test Date Status SERGE TRENT 09/26/2023 12:48:52 Final ADMITTED patient Observation Date Value Abnormality Reference (Units ) Status Adenovirus DNA [Presence] in Nasopharynx by GRETEL with non-probe detection 09/26/2023 12:48:52 Negative Negative Final Human coronavirus 229E RNA [Presence] in Nasopharynx by GRETEL with non-probe detection 09/26/2023 12:48:52 Negative Negative Final Human coronavirus HKU1 RNA [Presence] in Nasopharynx by GRETEL with non-probe detection 09/26/2023 12:48:52 Negative Negative Final Human coronavirus NL63 RNA [Presence] in Nasopharynx by GRETEL with non-probe detection 09/26/2023 12:48:52 Negative Negative Final Human coronavirus OC43 RNA [Presence] in Nasopharynx by GRETEL with non-probe detection 09/26/2023 12:48:52 Negative Negative Final SARS-CoV-2 (COVID-19) RNA [Presence] in Nasopharynx by GRETEL with non-probe detection 09/26/2023 12:48:52 Negative Negative Final Human metapneumovirus RNA [Presence] in Nasopharynx by GRETEL with non-probe detection 09/26/2023 12:48:52 Negative Negative Final Rhinovirus+Enterovirus RNA [Presence] in Nasopharynx by GRETEL with non-probe detection 09/26/2023 12:48:52 Negative Negative Final Influenza virus A RNA [Presence] in Nasopharynx by GRETEL with non-probe detection 09/26/2023 12:48:52 Negative Negative Final Influenza virus B RNA [Presence] in Nasopharynx by GRETEL with non-probe detection 09/26/2023 12:48:52 Negative Negative Final Parainfluenza virus 1 RNA [Presence] in Nasopharynx by GRETEL with non-probe detection 09/26/2023 12:48:52 Negative Negative Final Parainfluenza virus 2 RNA [Presence] in Nasopharynx by GRETEL with non-probe detection 09/26/2023 12:48:52 Negative Negative Final Parainfluenza virus 3 RNA [Presence] in Nasopharynx by GRETEL with non-probe detection 09/26/2023 12:48:52 Negative Negative Final Parainfluenza virus 4 RNA [Presence] in Nasopharynx by GRETEL with non-probe detection 09/26/2023 12:48:52 Negative Negative Final Respiratory syncytial virus RNA [Presence] in Nasopharynx by GRETEL with non-probe detection 09/26/2023 12:48:52 Negative Negative Final Bordetella pertussis.pertussis toxin promoter region [Presence] in Nasopharynx by GRETEL with non-probe detection 09/26/2023 12:48:52 Negative Negative Final Chlamydophila pneumoniae DNA [Presence] in Nasopharynx by GRETEL with non-probe detection 09/26/2023 12:48:52 Negative Negative Final Mycoplasma pneumoniae DNA [Presence] in Nasopharynx by GRETEL with non-probe detection 09/26/2023 12:48:52 Negative Negative Final Bordetella parapertussis [id number] DNA [Presence] in Nasopharynx by GRETEL with non-probe detection 09/26/2023 12:48:52 Negative Negative Final
The primers that detect Rhinovirus may cross react with some Enterorviruses. The validation of bronchial specimens, tracheal aspirates, and throats for this assay was developed and performance characteristics determined by [employer]. The validation of alternate specimen types has not been cleared or approved by the U.S. Food and Drug Administration (FDA). It has been determined that such clearance or approval is not necessary. [place] [facility] [facility] [place] [address] [facility] [address] [facility] [address]
--- OUTSIDE RECORDS SUMMARY | 2023-11-28 14:38 | External Medical Summary ---
Author Name Unknown Address Unknown Organization K01:[facility] [place] [address] [place] [address] Laboratory Report Ordering Provider Test Date Status OSVALDOLAILATOBIN 09/25/2023 11:06:00 Final Observation Date Value Abnormality Reference (Units ) Status Heparin, unfractionated level 09/25/2023 11:06:00 <0.10 <0.10 (IU/mL) Final Unfractionated therapeutic r anges for Anti Xa activity:
For Cardiac/Neurologic treatment: 0.3 to 0.6 IU/mL.
For treatment of DVT or Pulmonary Embolism: 0.3 to 0.7 IU/mL. Performing Location [facility] [place] [address] [place] [address]
--- OUTSIDE RECORDS SUMMARY | 2023-11-28 14:38 | External Medical Summary ---
Author Name Unknown Address Unknown Organization K01:[place] [facility] [place] [address] [place] [address] Laboratory Report Ordering Provider Test Date Status VENKATESH LUNDBERG 09/25/2023 17:53:00 Final Observation Date Value Abnormality Reference (Units ) Status WBC, Total 09/25/2023 17:53:00 10.93 Above high normal 4.00-10.80 (K/uL) Final RBC 09/25/2023 17:53:00 2.91 3.85-5.15 (M/uL) Final Hemoglobin 09/25/2023 17:53:00 9.0 Below low normal 12.0-15.3 (g/dL) Final HCT 09/25/2023 17:53:00 29.2 Below low normal 36.0-45.2 (%) Final MCV 09/25/2023 17:53:00 100.3 81.5-97.5 (fL) Final MCH 09/25/2023 17:53:00 30.9 27.0-34.0 (pg) Final MCHC 09/25/2023 17:53:00 30.8 32.0-36.0 (g/dL) Final RDW 09/25/2023 17:53:00 13.7 11.5-15.5 (%) Final Platelets 09/25/2023 17:53:00 189 140-400 (K/uL) Final MPV 09/25/2023 17:53:00 9.2 6.6-11.1 (fL) Final Nucleated erythrocytes/100 leukocytes [Ratio] in Blood by Automated count 09/25/2023 17:53:00 0 <=0 (/100 WBCs) Final Performing Location LABORATORY [facility] - [address] [place] [address]
--- OUTSIDE RECORDS SUMMARY | 2023-11-28 14:38 | External Medical Summary | Summary of Care ---
Author Name Unknown Organization [facility] Address [address] [place] [address] Phone [phone] Care Team Providers Care Artificial Flowers Dyer Name Role Phone Cathy Wilburn MD Primary Care Provide r Reason for Visit * Reason Onset Date Comments Status Check 09/26/2023 Encounter Details Date Type Department Care Team (Late st Contact Info) Description 09/26/2023 Telephone Pharmacy [facility] [address] [place] [address] [facility] [address] [place] [address] Status Check (/) Allergies Active Allergy Reactions Criticality Noted Date [...] as of this encounter (statuses as of 09/26/2023) Medications Medication Sig Dispensed Refills Start Date End Date Status Acetaminophen 325 MG Oral Tablet (Tylenol) Take by mouth 2 Tablets every 4 hours as needed for Fever >38C(100.5F), Pain, Mild, Pain, Moderate or Pain, Severe. 100 Tablet 1 2021 Suspended Additional Information Atorvastatin Calcium 40 MG Oral Tablet (Lipitor)Indicatio ns:Atherosclerosis of enterprise coronary artery of enterprise heart without angina pectoris,Dyslipide martin, goal LDL [...] as of this encounter (statuses as of 09/26/2023) Active Problems Problem Noted Date Diagnosed Date [...] lumbosacral intervertebral disc 02/04/2009 Coronary atherosclerosis of enterprise coronary luis ry 02/24/2005 Senile osteoporosis 05/14/2003 Carpal tunnel syndrome 04/23/2003 Moderate mitral regurgitation GENERAL OSTEOARTHROSIS Gastroesophageal reflux disease without esophagi tis Vitamin D deficiency Hyperparathyroidism, primary documented as of this encounter (statuses as of 09/26/2023) Resolved Problems Problem Noted Date Diagnosed Date [...] 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 Please see the following BPA for patient: Date User Triggers Comment 09/26/23 1047 Latif, JesusDO [[id number]] Enter order Medication - ERX: APIXABAN 2.5 MG OR TABS [[id number]] Medication - ERX: WARFARIN SODIUM 2 MG OR TABS [[id number]] Order - ORD: Warfarin Sodium 2 MG Oral Tablet (Coumadin) [[id number]] Order - ORD: Apixaban (Eliquis) tab 2.5 mg [[id number]] None [place] [facility] [place] Jennifer Allan RPh, PharmD, BCACP Clinical Pharmacist Medication Therapy [facility] 09/26/23, 10:50 AM documented in this encounter Plan of Treatment Upcoming Encounters Date Type Department Care Team (Late st Contact Info) Description 09/28/2023 7:15 AM EDT Laboratory Lab Mobile Phlebotomy [facility] [address] [place] [address] [facility], [facility] Mobile Home Draw [address] [place] [address] 09/29/2023 6:00 AM EDT An[facility], [address] [place] [address] [place] [address] 09/30/2023 6:45 AM EDT Antico[facility], [place] [address] [place] [address] [place] [address] [place] [address] 10/12/2023 3:00 PM EDT Office Visit Sleep Disorders Ctr Alexis Hernandez, [place] [address] [place] [phone] Isabel Diallo, [address] [place] [address] 12/05/2023 1:00 PM EDT Imaging Radiology, [place] [address] [facility] [place] [address] 12/20/2023 11:00 AM EDT [facility] [place] [address] Kian Travis, [address] [place] [address] 12/26/2023 2:30 PM EDT Nurse Only Rheumatology [address] [place] [phone] [place], Nurse Rheum [address] [place] [phone] 01/06/2024 2:00 PM EST Office Visit Nephrology [address] [place] [address] ZeCharlotte coleman PA-C [address] [facility] [place] [address] 01/23/2024 2:20 PM EST Office Visit Dermatology [address] [place] [address] Amber Orozco PA-C [address] [place] [address] [place] [address] 02/02/2024 2:30 PM EST Office Visit Hematology/Oncology [facility] [address] [place] [phone] Mirna Camp CRNP [address] [place] [address] [place] [address] 02/14/2024 1:30 PM EST Office Visit Cardiology, [facility] [address] [facility] [place] [address] Jane Ashley CRNP [address] [place] [address] 05/15/2024 1:00 PM EDT Office Visit Nephrology [address] [place] [address] Charlotte Cope PA-C [address] [facility] [address] 06/06/2024 3:20 PM EDT Office Visit Family Medicine [address] [place] [phone] Cathy Wilburn MD [address] [place] [address] [place] [address] Health Maintenance Due Date Last Done Comments COVID-19 Vaccine ( season) 2022 DXA Scan 10/22/2023 10/21/2021, 09/29, 08/28/2018, Additional history exists CKD PHOS USE SMARTSET 79928 08/16/202407/29, 05/12/2023, 11/05/2022, Additional history exists Albumin/Creatinine Ratio 08/24/2024 024, 07/19/2022, 04/06/2021, Additional history exists Depression Monitoring 08/24/2024 08/25/2023 DIG LEVEL FOR MEDICATION MONITORING YEARLY 09/20/2024 09/21/2023, 06/22/2023, 04/29/2023, Additional history exists CKD HGB USE SMARTSET 81637 09/25/202409/25, 09/25/2023, 09/25/2023, Additional history exists DTaP,Tdap,and Td Vaccines (2 - Td or Tdap) 12/31/2029 01/01/2020 (Declined), 12/30/2009, 12/30/2009, Additional history exists Pneumococcal Vaccine: 65+ Years Completed 02/08/2017, 02/23/2006 VITAMIN D LEVEL ONCE IN A LIFETIME-USE SMARTSET# 76171 Completed 08/17/2023, 06/27/2023, 06/22/2023, Additional history exists [...] this encounter Medical Devices Implanted Type Area Reservation Manager Device Identifier Shelf Expiration Date Model / Serial / Lot Lead Novus Bipolar 58cm - [id number] - [id number] Implanted:Qty: 1 on 04/11/2017 by Elda Patterson DO at OR [facility] Left: Heart [employer] : PENDING SALE TO [facility] 12/18/2018 5076-58 / [id number] / Description:RIGHT VENTRICLE LEAD Lead Novus Bipolar 52cm - [id number] - [id number] Implanted:Qty: 1 on 04/11/2017 by Elda Patterson DO at OR [facility] Left: Heart [employer] : PENDING SALE TO [facility] 12/24/2018 5076-52 / [id number] / Description:RIGHT ATRIAL ROCKY D Pacer Advisa Dr Dorsey - [id number] - [id number] Implanted:Qty: 1 on 04/11/2017 by Elda Patterson DO at OR [facility] Left: Chest [employer] 08/25/2018 [id number] / [id number] / documented as of this encounter Visit Diagnoses Diagnosis Paroxysmal atrial fibrillation (HCC)- Primary Atrial fibrillation documented in this encounter Advance Directives Documents on File Type Date Recorded Patient Licensed Audiologist Expl anation POLST 01/05/2021 [place] [facility] FOR LIFE-SUSTAINING TREATMENT * Full Code (Latest Code Status on File) Date Activated Date Inactivated Comments 09/21/2023 4:05 AM This order ref lects the patients wishes and were consensually agreed upon. Question Answer Comments Discussion of Advance Direct nisreen occurred with: Not Discussed due to patient's condition * Full Code Date Activated Date Inactivated Comments 07/02/2008 9:35 AM 07/03/2008 5:40 PM Care Teams Artificial Flowers Dyer Relationship Specialty Start Date End Date Cathy Wilburn MD [address] [place] [address] [place] [address] PCP - General Family Medicine 12/03/22 documented as of this encounter
--- OUTSIDE RECORDS SUMMARY | 2023-11-28 14:38 | External Medical Summary ---
Author Name Unknown Address Unknown Organization K01:[facility]ORY [facility] [place] [address] [place] [address] Laboratory Report Ordering Provider Test Date Status VENKATESH LUNDBERG 09/26/2023 06:48:00 Final Observation Date Value Abnormality Reference (Units ) Status WBC, Total 09/26/2023 06:48:00 11.46 Above high normal 4.00-10.80 (K/uL) Final RBC 09/26/2023 06:48:00 2.97 3.85-5.15 (M/uL) Final Hemoglobin 09/26/2023 06:48:00 9.1 Below low normal 12.0-15.3 (g/dL) Final HCT 09/26/2023 06:48:00 30.3 Below low normal 36.0-45.2 (%) Final MCV 09/26/2023 06:48:00 102.0 81.5-97.5 (fL) Final MCH 09/26/2023 06:48:00 30.6 27.0-34.0 (pg) Final MCHC 09/26/2023 06:48:00 30.0 32.0-36.0 (g/dL) Final RDW 09/26/2023 06:48:00 14.0 11.5-15.5 (%) Final Platelets 09/26/2023 06:48:00 200 140-400 (K/uL) Final MPV 09/26/2023 06:48:00 9.0 6.6-11.1 (fL) Final Nucleated erythrocytes/100 leukocytes [Ratio] in Blood by Automated count 09/26/2023 06:48:00 0 <=0 (/100 WBCs) Final Performing Location LAB[facility]ORY [facility] [place] [address] [place] [address]
--- OUTSIDE RECORDS SUMMARY | 2023-11-28 14:38 | External Medical Summary ---
Author Name Unknown Address Unknown Organization K01:[place] [facility] [place] [address] [facility] [address] Laboratory Report Ordering Provider Test Date Status KIMMIE SOLOMON 09/24/2023 22:41:00 Final Get Heparin, unfractionated (Xa) level 6 hours after start of infusion and 6 hours after each dose adjustment Observation Date Value Abnormality Reference (Units ) Status Heparin, unfractionated level 09/24/2023 22:41:00 <0.10 <0.10 (IU/mL) Final Unfractionated therapeutic r anges for Anti Xa activity:
For Cardiac/Neurologic treatment: 0.3 to 0.6 IU/mL.
For treatment of DVT or Pulmonary Embolism: 0.3 to 0.7 IU/mL. Performing Location [facility] [place] [facility] [address] [facility] [address]
--- OUTSIDE RECORDS SUMMARY | 2023-11-28 14:38 | External Medical Summary ---
Author Name Unknown Address Unknown Organization K01:[facility]ORY [facility] [place] [address] [place] [address] Laboratory Report Ordering Provider Test Date Status VENKATESH LUNDBERG 09/26/2023 20:30:00 Final Observation Date Value Abnormality Reference (Units ) Status WBC, Total 09/26/2023 20:30:00 13.95 Above high normal 4.00-10.80 (K/uL) Final RBC 09/26/2023 20:30:00 3.03 3.85-5.15 (M/uL) Final Hemoglobin 09/26/2023 20:30:00 9.4 Below low normal 12.0-15.3 (g/dL) Final HCT 09/26/2023 20:30:00 29.8 Below low normal 36.0-45.2 (%) Final MCV 09/26/2023 20:30:00 98.3 81.5-97.5 (fL) Final MCH 09/26/2023 20:30:00 31.0 27.0-34.0 (pg) Final MCHC 09/26/2023 20:30:00 31.5 32.0-36.0 (g/dL) Final RDW 09/26/2023 20:30:00 14.1 11.5-15.5 (%) Final Platelets 09/26/2023 20:30:00 216 140-400 (K/uL) Final MPV 09/26/2023 20:30:00 9.1 6.6-11.1 (fL) Final Nucleated erythrocytes/100 leukocytes [Ratio] in Blood by Automated count 09/26/2023 20:30:00 0 <=0 (/100 WBCs) Final Performing Location LABORATORY [facility] [place] [address] [place] [address]
--- OUTSIDE RECORDS SUMMARY | 2023-11-28 14:38 | External Medical Summary ---
Author Name Unknown Address Unknown Organization K01:[place] [facility] [place] [address] [facility] [place] Laboratory Report Ordering Provider Test Date Status SERGE TRENT 09/26/2023 13:41:00 Final Observation Date Value Abnormality Reference (Units ) Status Bacteria identified in Specimen by Culture 09/26/2023 13:41:00 No growth Final Test: Culture, Blood (Site 2 )
Specimen Source: Blood, Venous
Specimen Type: Blood
Specimen Date: 09/26/2023 1341
Result Date: 10/01/2023 1402
Result Status: Final result
Resulting Lab: [place] [facility] [place]
[address]
[place] [address]

CULTURE

No growth

null Performing Location [place] [facility] [place] [address] [place] [address]
--- OUTSIDE RECORDS SUMMARY | 2023-11-28 14:38 | External Medical Summary ---
Author Name Unknown Address Unknown Organization K01:LABORATORY [facility] [place] [address] [place] [address] Laboratory Report Ordering Provider Test Date Status KIMMIE SOLOMON 09/25/2023 05:00:00 Final Warfarin Therapy
INR: 2 .0-3.0 conventional anticoagulation
INR: 2.5- 3.5 high intensity anticoagulation Observation Date Value Abnormality Reference (Units ) Status PT 09/25/2023 05:00:00 14.3 11.6-15.2 (seconds) Final INR 09/25/2023 05:00:00 1.1 0.8-1.2 Final Performing Location [facility] - [address] [place] [address]
--- OUTSIDE RECORDS SUMMARY | 2023-11-28 14:38 | External Medical Summary | Summary of Care ---
Author Name Unknown Organization [facility] Address [address] [place] [address] Phone [phone] Care Team Providers Care Manager Resort Name Role Phone Cathy Wilburn MD Primary Care Provide r Reason for Visit * Reason Onset Date Comments Status Check 09/26/2023 Encounter Details Date Type Department Care Team (Late st Contact Info) Description 09/26/2023 Telephone Pharmacy [facility] [address] [place] [address] [facility] [address] [place] [address] Status Check (/) Allergies Active Allergy Reactions [...] 40 MG Oral Tablet (Lipitor)Indicatio ns:Atherosclerosis of [place] coronary artery of [place] heart without angina pectoris,Dyslipide martin, goal LDL [...] lumbosacral intervertebral disc 02/04/2009 Coronary atherosclerosis of [place] coronary luis ry 02/24/2005 Senile osteoporosis 05/14/2003 [...] 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 (Household - for ages [...] encounter Miscellaneous Notes * Telephone Encounter - Kristel Ruano [facility] - 09/26/2023 11:05 AM EDT Noted, thank you. 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 ASA and warfarin currently on hold, pt's INR reversed with Kcentra and vitamin K on initial presentation. Documentation from hospitalist today states plan to resume anticoagulation on discharge with low dose Eliquis (pending cost). [facility] to follow up at discharge. Thank you, Kristel Ruano PharmD Clinical Pharmacist [facility] ([facility]) 09/26/2023 11:10 AM * Telephone Encounter - Jennifer Allan RPh - 09/26/2023 10:50 AM EDT Images from the original note were not included. Please see the following BPA for patient: Date User Triggers Comment 09/26/23 1047 Jesus Latif DO [[id number]] Enter order Medication - ERX: APIXABAN 2.5 MG OR TABS [[id number]] Medication - ERX: WARFARIN SODIUM 2 MG OR TABS [[id number]] Order - ORD: Warfarin Sodium 2 MG Oral Tablet (Coumadin) [[id number]] Order - ORD: Apixaban (Eliquis) tab 2.5 mg [[id number]] None Patient is currently admitted at [facility]. Jennifer Allan RPh, PharmD, BCACP Clinical Pharmacist Medication Therapy [facility] 09/26/23, 10:50 AM documented in this encounter Plan of Treatment Upcoming Encounters Date Type Department Care Team (Late st Contact Info) Description 09/28/2023 7:15 AM EDT Laboratory Lab Mobile Phlebotomy [facility] [address] [place] [address] [facility], [facility] Draw [address] [place] [address] [address] 09/29/2023 6:00 AM EDT Anticoagulation [facility], Mukesh Downey [address] [place] [address] [place] [address] [place] [address] 09/30/2023 6:45 AM EDT Anticoagulation [facility], [address] [place] [address] [place] [address] 10/12/2023 3:00 PM EDT Office Visit Sleep Disorders [facility]tr [facility] [address] [place] [phone] Isabel Diallo, [address] [place] [address] 12/05/2023 1:00 PM EDT Imaging Radiology, [address] [place] [address] 12/20/2023 11:00 AM EDT Office Visit Orthopaedics [facility] [address] [place] [address] Kian Travis, DO [address] [place] [address] 12/26/2023 2:30 PM EDT Nurse Only Rheumatology [address] [place] [phone] [place], Nurse Rheum [address] [place] [phone] 01/06/2024 2:00 PM EST Office Visit Nephrology [address] [place] [address] Charlotte Cope PA-C [address] [place] [address] 01/23/2024 2:20 PM EST Office Visit Dermatology [address] [place] [address] Amber Orozco PA-C [address] [place] [address] [place] [address] 02/02/2024 2:30 PM EST Office Visit Hematology/Oncology [facility] [address] [facility] [place] [phone] Mirna Camp [facility]NP [facility] [place] [address] 02/14/2024 1:30 PM EST Office Visit Cardiology, [facility] [address] [facility] [place] [address] Jane Ashley CRNP [address] [place] [phone] 05/15/2024 1:00 PM EDT Office Visit Nephrology [address] [place] [address] Charlotte Cope PA-C [address] [facility] [place] [address] 06/06/2024 3:20 PM EDT Office Visit Family Medicine [address] [place] [phone] Cathy Wilburn MD [address] [place] [address] [place] [address] Health Maintenance Due Date Last Done Comments COVID-19 Vaccine (2022- season) 2022 DXA Scan 10/22/2023 10/21/2021, 09/29, 08/28/2018, Additional history exists CKD PHOS USE SMARTSET 06879 08/16/202407/29, 05/12/2023, 11/05/2022, Additional history exists Albumin/Creatinine Ratio 08/24/2024 024, 07/19/2022, 04/06/2021, Additional history exists Depression Monitoring 08/24/2024 08/25/2023 DIG LEVEL FOR MEDICATION MONITORING YEARLY 09/20/2024 09/21/2023, 06/22/2023, 04/29/2023, Additional history exists CKD HGB USE SMARTSET 53745 09/25/202409/25, 09/25/2023, 09/25/2023, Additional history exists DTaP,Tdap,and Td Vaccines (2 - Td or Tdap) 12/31/2029 01/01/2020 (Declined), 12/30/2009, 12/30/2009, Additional history exists Pneumococcal Vaccine: 65+ Years Completed 02/08/2017, 02/23/2006 VITAMIN D LEVEL ONCE IN A LIFETIME-USE SMARTSET# 64558 Completed 08/17/2023, 06/27/2023, 06/22/2023, Additional history exists [...] this encounter Medical Devices Implanted Type Area Transition Rn Device Identifier Shelf Expiration Date Model / Serial / Lot Lead Novus Bipolar 58cm - [id number] - [id number] Implanted:Qty: 1 on 04/11/2017 by Elda Patterson DO at OR [facility] Left: Heart [employer] : YONATHAN 12/18/2018 5076-58 / [id number] / Description:RIGHT VENTRICLE LEAD Lead Novus Bipolar 52cm - [id number] - [id number] Implanted:Qty: 1 on 04/11/2017 by Elda Patterson DO at OR [facility] Left: Heart [employer] : CRM 12/24/2018 5076-52 / [id number] / Description:RIGHT ATRIAL ROCKY D Pacer Advisa Dr Dorsey - [id number] - [id number] Implanted:Qty: 1 on 04/11/2017 by Elda Patterson DO at OR [facility] Left: Chest [employer] 08/25/2018 [id number] / [id number] / documented as of this encounter Visit Diagnoses Diagnosis Paroxysmal atrial fibrillation (HCC)- Primary Atrial fibrillation documented in this encounter Advance Directives Documents on File Type Date Recorded Patient Promotional Demonstrator Expl anation POLST 01/05/2021 [facility] FOR LIFE-SUSTAINING TREATMENT * Full Code [...] AM 07/03/2008 5:40 PM Care Teams Manager Resort Relationship Specialty Start Date End Date Cathy Wilburn MD [address] [place] [address] [place] [phone] PCP - General Family Medicine 12/03/22 documented as of this encounter
--- OUTSIDE RECORDS SUMMARY | 2023-11-28 14:38 | External Medical Summary ---
Author Name Unknown Address Unknown Organization K01:LAB[facility]ATORY [facility] [place] - [address] [place] [address] Laboratory Report Ordering Provider Test Date Status TIBURCIO BRUNO 09/26/2023 06:48:00 Final Observation Date Value Abnormality Reference (Units ) Status BUN 09/26/2023 06:48:00 26 Above high normal 6-20 (mg/dL) Final Creatinine 09/26/2023 06:48:00 1.3 Above high normal 0.5-1.0 (mg/dL) Final Glomerular filtration rate/1.73 sq M.predicted [Volume Rate/Area] in Serum, Plasma or Blood by Creatinine-based formula (CKD-EPI) 09/26/2023 06:48:00 40 Below low normal >=60 (mL/min) Final eGFR is calculated based on the CKD-EPI 2020 equation. Sodium 09/26/2023 06:48:00 135 135-146 (m mol/L) Final Potassium 09/26/2023 06:48:00 4.3 3.5-5.1 (m mol/L) Final Cl 09/26/2023 06:48:00 101 98-107 (mm ol/L) Final CO2 09/26/2023 06:48:00 26 22-32 (mmo l/L) Final Anion gap 09/26/2023 06:48:00 8 7-15 (mmol /L) Final Glucose 09/26/2023 06:48:00 119 70-120 (mg /dL) Final Calcium 09/26/2023 06:48:00 10.3 Above high normal 8. 4-10.2 (mg/dL) Final Performing Location [facility]ORY [facility] [place] - [address] [place] [address]
--- OUTSIDE RECORDS SUMMARY | 2023-11-28 14:38 | External Medical Summary ---
Author Name Unknown Address Unknown Organization K01:LABORATORY [facility] [place] - [address] [place] [address] Laboratory Report Ordering Provider Test Date Status TIBURCIO BRUNO 09/25/2023 05:00:00 Final Observation Date Value Abnormality Reference (Units ) Status BUN 09/25/2023 05:00:00 27 Above high normal 6-20 (mg/dL) Final Creatinine 09/25/2023 05:00:00 1.5 Above high normal 0.5-1.0 (mg/dL) Final Glomerular filtration rate/1.73 sq M.predicted [Volume Rate/Area] in Serum, Plasma or Blood by Creatinine-based formula (CKD-EPI) 09/25/2023 05:00:00 33 Below low normal >=60 (mL/min) Final eGFR is calculated based on the CKD-EPI 2020 equation. Sodium 09/25/2023 05:00:00 136 135-146 (m mol/L) Final Potassium 09/25/2023 05:00:00 4.8 3.5-5.1 (m mol/L) Final Cl 09/25/2023 05:00:00 105 98-107 (mm ol/L) Final CO2 09/25/2023 05:00:00 25 22-32 (mmo l/L) Final Anion gap 09/25/2023 05:00:00 6 Below low normal 7-1 5 (mmol/L) Final Glucose 09/25/2023 05:00:00 113 70-120 (mg /dL) Final Calcium 09/25/2023 05:00:00 10.3 Above high normal 8. 4-10.2 (mg/dL) Final Performing Location LABORATORY [facility] [place] - [address] [place] [address]
--- OUTSIDE RECORDS SUMMARY | 2023-11-28 14:38 | External Medical Summary ---
Author Name Unknown Address Unknown Organization K01:[facility]ATORY [facility] [place] - [facility] [address] Laboratory Report Ordering Provider Test Date Status VENKATESH LUNDBERG 09/25/2023 05:00:00 Final Observation Date Value Abnormality Reference (Units ) Status WBC, Total 09/25/2023 05:00:00 9.81 4.00-10.80 (K/uL) Final RBC 09/25/2023 05:00:00 2.64 3.85-5.15 (M/uL) Final Hemoglobin 09/25/2023 05:00:00 8.3 Below low normal 12.0-15.3 (g/dL) Final HCT 09/25/2023 05:00:00 26.3 Below low normal 36.0-45.2 (%) Final MCV 09/25/2023 05:00:00 99.6 81.5-97.5 (fL) Final MCH 09/25/2023 05:00:00 31.4 27.0-34.0 (pg) Final MCHC 09/25/2023 05:00:00 31.6 32.0-36.0 (g/dL) Final RDW 09/25/2023 05:00:00 13.8 11.5-15.5 (%) Final Platelets 09/25/2023 05:00:00 164 140-400 (K/uL) Final MPV 09/25/2023 05:00:00 8.8 6.6-11.1 (fL) Final Nucleated erythrocytes/100 leukocytes [Ratio] in Blood by Automated count 09/25/2023 05:00:00 0 <=0 (/100 WBCs) Final Performing Location LABORATORY [facility] [place] - [address] [place] [address]
--- OUTSIDE RECORDS SUMMARY | 2023-11-28 14:38 | External Medical Summary ---
Author Name Unknown Address Unknown Organization K01:LABORATORY [facility] [place] - [address] [facility] [address] Laboratory Report Ordering Provider Test Date Status OSVALDOVINAYAK MONTERROSO 09/25/2023 05:00:00 Final Observation Date Value Abnormality Reference (Units ) Status Heparin, unfractionated level 09/25/2023 05:00:00 0.13 Above high normal <0.10 (IU/mL) Final Unfractionated therapeutic r anges for Anti Xa activity:
For Cardiac/Neurologic treatment: 0.3 to 0.6 IU/mL.
For treatment of DVT or Pulmonary Embolism: 0.3 to 0.7 IU/mL. Performing Location LABORATORY [facility] [place] - [address] [facility] [address]
--- OUTSIDE RECORDS SUMMARY | 2023-11-28 14:38 | External Medical Summary ---
Author Name Unknown Address Unknown Organization K01:[facility] [place] [address] [facility] [address] Laboratory Report Ordering Provider Test Date Status KIMMIE SOLOMON 09/25/2023 19:30:00 Final Get Heparin, unfractionated (Xa) level 6 hours after start of infusion and 6 hours after each dose adjustment Observation Date Value Abnormality Reference (Units ) Status Heparin, unfractionated level 09/25/2023 19:30:00 <0.10 <0.10 (IU/mL) Final Unfractionated therapeutic r anges for Anti Xa activity:
For Cardiac/Neurologic treatment: 0.3 to 0.6 IU/mL.
For treatment of DVT or Pulmonary Embolism: 0.3 to 0.7 IU/mL. Performing Location [facility] [place] - [facility] [address] [facility] [address]
--- OUTSIDE RECORDS SUMMARY | 2023-11-28 14:38 | External Medical Summary ---
Author Name Unknown Address Unknown Organization K01:[facility] [place] - [address] [place] [address] Laboratory Report Ordering Provider Test Date Status KIMMIE SOLOMON 09/26/2023 06:48:00 Final Warfarin Therapy
INR: 2 .0-3.0 conventional anticoagulation
INR: 2.5- 3.5 high intensity anticoagulation Observation Date Value Abnormality Reference (Units ) Status PT 09/26/2023 06:48:00 14.0 11.6-15.2 (seconds) Final INR 09/26/2023 06:48:00 1.1 0.8-1.2 Final Performing Location LABORATORY [facility] - [address] [place] [address]
--- OUTSIDE RECORDS SUMMARY | 2023-11-28 14:38 | External Medical Summary ---
Author Name Unknown Address Unknown Organization K01:[facility] [place] [address] [facility] [address] Laboratory Report Ordering Provider Test Date Status KIMMIE SOLOMON 09/26/2023 02:14:00 Final Get Heparin, unfractionated (Xa) level 6 hours after start of infusion and 6 hours after each dose adjustment Observation Date Value Abnormality Reference (Units ) Status Heparin, unfractionated level 09/26/2023 02:14:00 0.43 Above high normal <0.10 (IU/mL) Final Unfractionated therapeutic r anges for Anti Xa activity:
For Cardiac/Neurologic treatment: 0.3 to 0.6 IU/mL.
For treatment of DVT or Pulmonary Embolism: 0.3 to 0.7 IU/mL. Performing Location [facility] [place] [facility] [address] [facility] [address]
--- OUTSIDE RECORDS SUMMARY | 2023-11-28 14:38 | External Medical Summary ---
Author Name Unknown Address Unknown Organization K01:[facility] [place] [facility] - [address] [place] [address] Laboratory Report Ordering Provider Test Date Status SERGE TRENT 09/27/2023 06:56:00 Final Observation Date Value Abnormality Reference (Units ) Status ABO 09/27/2023 06:56:00 O Final RH 09/27/2023 06:56:00 Positive Final RED BLOOD CELL ANTIBODY SCREEN 09/27/2023 06:56:00 Negative Final SPECIMEN EXPIRATION DATE 09/27/2023 06:56:00 09/30/2023 23:59 Final Performing Location [facility] - [address] [place] [address]
--- OUTSIDE RECORDS SUMMARY | 2023-11-28 14:39 | External Medical Summary ---
Author Name Unknown Address Unknown Organization K01[place] [place] [address] [place] [address] [place] [address] Laboratory Report Ordering Provider Test Date Status DANG ALEJANDRE 09/22/2023 07:30:00 Final Observation Date Value Abnormality Reference (Units ) Status Lactic Acid, Whole Blood 09/22/2023 07:30:00 1.3 0.4-2.0 (mmol/L) Final Performing Location [facility] [place] [address] [place] [address]
--- OUTSIDE RECORDS SUMMARY | 2023-11-28 14:39 | External Medical Summary ---
Author Name Unknown Address Unknown Organization K01[place] [place] [address] [place] [address] Laboratory Report Ordering Provider Test Date Status TIBURCIO BRUNO 09/21/2023 17:14:00 Final Observation Date Value Abnormality Reference (Units ) Status Lactic Acid 09/21/2023 17:14:00 2.1 Above high normal 0.4-2.0 (mmol/L) Final Performing Location [facility] [place] [address] [place] [address]
--- OUTSIDE RECORDS SUMMARY | 2023-11-28 14:39 | External Medical Summary ---
Author Name Unknown Address Unknown Organization K01:[facility]ORY [facility] [place] - [address] [place] [address] Laboratory Report Ordering Provider Test Date Status VENKATESH LUNDBERG 09/23/2023 20:30:00 Final Observation Date Value Abnormality Reference (Units ) Status WBC, Total 09/23/2023 20:30:00 10.97 Above high normal 4.00-10.80 (K/uL) Final RBC 09/23/2023 20:30:00 2.71 3.85-5.15 (M/uL) Final Hemoglobin 09/23/2023 20:30:00 8.5 Below low normal 12.0-15.3 (g/dL) Final HCT 09/23/2023 20:30:00 27.1 Below low normal 36.0-45.2 (%) Final MCV 09/23/2023 20:30:00 100.0 81.5-97.5 (fL) Final MCH 09/23/2023 20:30:00 31.4 27.0-34.0 (pg) Final MCHC 09/23/2023 20:30:00 31.4 32.0-36.0 (g/dL) Final RDW 09/23/2023 20:30:00 14.2 11.5-15.5 (%) Final Platelets 09/23/2023 20:30:00 152 140-400 (K/uL) Final MPV 09/23/2023 20:30:00 9.1 6.6-11.1 (fL) Final Nucleated erythrocytes/100 leukocytes [Ratio] in Blood by Automated count 09/23/2023 20:30:00 0 <=0 (/100 WBCs) Final Performing Location [facility]ORY [facility] [place] - [address] [place] [address]
--- OUTSIDE RECORDS SUMMARY | 2023-11-28 14:39 | External Medical Summary | Summary of Care ---
Author Name Unknown Organization [facility] [address] [place] [address] Phone [phone] Care Team Providers Care Automobiles Salesperson Name Role Phone Cathy Wilburn MD Primary Care Provide r Reason for Visit * Reason Comments [employer] [facility] to [facility] Encounter Details Date Type Department Care Team (Latest Contact Info) Description 09/21/2023 1:50 AM EDT Documentation Amura Randlett [address] [place] [address] 2, [employer] [address] [place] [address] Retroperitoneal bleeding* Allergies Active Allergy Reactions Criticality Noted Date [...] as of this encounter (statuses as of 09/21/2023) Medications Medication Sig Dispensed Refills Start Date End Date Status Acetaminophen 325 MG Oral Tablet (Tylenol) Take by mouth 2 Tablets every 4 hours as needed for Fever >38C(100.5F), Pain, Mild, Pain, Moderate or Pain, Severe. 100 Tablet 1 2021 Suspended Additional Information Atorvastatin Calcium 40 MG Oral Tablet (Lipitor)Indicatio ns:Atherosclerosis of [place] coronary artery of [place] heart without angina pectoris,Dyslipide martin, goal LDL [...] by mouth every other day. 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 Never true 09/07/19 Within the past 12 months, t he [...] No 09/07/2023 Does the household have a zuni hospitallar source of income? (Household - for [...] as of this encounter Progress Notes * Andi Stephenson EMT-P - 09/21/2023 7:43 AM EDT MEDICARE AMBULANCE INFORMATION SHEET Patient Admitted as an Inpatient: yes Certifying Physician/Ordering Service[place] [place] - Evelyn Hernandez M.D. [facility] [address] [facility] [place] [address] Point of Capital Project Engineer (zip code required): Hospital - [facility] - [address] [facility] [address]; [place] [address] Destination (Specify Name/Address): [facility] - [facility]; [place] [address] Patient transported to nearest facility (capable of mgmt for Pt's condition): YES Total number of Loaded Miles: 65.5 miles Mode of Transport: Air Completed by: Andi Stephenson EMT-P documented in this encounter Plan of Treatment Upcoming Encounters Date Type Department Care Team (Late st Contact Info) Description 09/28/2023 7:15 AM EDT Laboratory Lab Mobile Phlebotomy [facility] [address] [place] [address] [facility], [facility] Mobile Home Draw [address] [place] [address] 09/29/2023 6:00 AM EDT Anticoagulation Centralized Clinical Pharmacy Services, Mukesh Downey [address] [place] [address] [place] [address] [place] [address] 10/12/2023 3:00 PM EDT Office Visit Sleep Disorders Ctr [facility] [address] [place] [phone] Isabel Diallo, DO 132 [facility] [place] [address] 12/05/2023 1:00 PM EDT Imaging Radiology, [address] [place] [address] 12/20/2023 11:00 AM EDT Office Visit Orthopaedics [facility] 132 [facility] [place] [address] Kian Travis, DO 132 [facility] [place] [address] 12/26/2023 2:30 PM EDT Nurse Only Rheumatology [address] [place] [phone] [place], Nurse Rheum [address] [place] [phone] 01/06/2024 2:00 PM EST Office Visit Nephrology [address] [place] [address] ZeCharlotte coleman PA-C [address] [place] [address] 01/23/2024 2:20 PM EST Office Visit Dermatology [address] [place] [address] Amber Orozco PA-C [address] [place] [address] [place] [address] 02/02/2024 2:30 PM EST Office Visit Hematology/Oncology [facility] [address] [place] [phone] Mirna Camp CRNP [address] [place] [address] 02/14/2024 1:30 PM EST Office Visit Cardiology, [facility] [address] [place] [address] Jane Ashley CRNP [address] [place] [address] 05/15/2024 1:00 PM EDT Office Visit Nephrology [address] [place] [address] Charlotte Cope PA-C [address] [place] [address] 06/06/2024 3:20 PM EDT Office Visit Family Medicine [address] [place] [phone] Cathy Wilburn MD [address] [place] [address] [place] [address] Health Maintenance Due Date Last Done Comments COVID-19 Vaccine ( season) 2022 DXA Scan 10/22/2023 10/21/2021, 09/29, 08/28/2018, Additional history exists CKD PHOS USE SMARTSET 29437 08/16/202407/29, 05/12/2023, 11/05/2022, Additional history exists Albumin/Creatinine Ratio 08/24/2024 024, 07/19/2022, 04/06/2021, Additional history exists Depression Monitoring 08/24/2024 08/25/2023 CKD HGB USE SMARTSET 71218 09/20/202409/20, 09/21/2023, 09/21/2023, Additional history exists DTaP,Tdap,and Td Vaccines (2 - Td or Tdap) 12/31/2029 01/01/2020 (Declined), 12/30/2009, 12/30/2009, Additional history exists Pneumococcal Vaccine: 65+ Years Completed 02/08/2017, 02/23/2006 VITAMIN D LEVEL ONCE IN A LIFETIME-USE SMARTSET# 42112 Completed 08/17/2023, 06/27/2023, 06/22/2023, Additional history exists [...] this encounter Medical Devices Implanted Type Area Vp Research Device Identifier Shelf Expiration Date Model / Serial / Lot Lead Novus Bipolar 58cm - [id number] - [id number] Implanted:Qty: 1 on 04/11/2017 by Elda Patterson DO at OR [facility] Left: Heart [employer] : ON LICENSE OF [facility] 12/18/2018 5076-58 / [id number] / Description:RIGHT VENTRICLE LEAD Lead Novus Bipolar 52cm - [id number] - [id number] Implanted:Qty: 1 on 04/11/2017 by Elda Patterson DO at OR [facility] Left: Heart [employer] : ON LICENSE OF [facility] 12/24/2018 5076-52 / [id number] / Description:RIGHT ATRIAL ROCKY D Pacer Advisa Dr Dorsey - [id number] - [id number] Implanted:Qty: 1 on 04/11/2017 by Elda Patterson DO at OR [facility] Left: Chest [employer] 08/25/2018 A2DR01 / [id number] / documented as of this encounter Visit Diagnoses Diagnosis Retroperitoneal bleeding- Primary Hemorrhage, unspecified documented in this encounter Advance Directives Documents on File Type Date Recorded Patient Correspondence Transcriber Expl anation POLST 01/05/2021 [place] OR [facility] FOR LIFE-SUSTAINING TREATMENT * Full Code [...] 9:35 AM 07/03/2008 5:40 PM Care Teams Automobiles Salesperson Relationship Specialty Start Date End Date Cathy Wilburn MD [address] [place] [address] [place] [phone] PCP - General Family Medicine 12/03/22 documented as of this encounter
--- OUTSIDE RECORDS SUMMARY | 2023-11-28 14:39 | External Medical Summary ---
Author Name Unknown Address Unknown Organization K01:LABORATORY [facility] [place] - [address] [place] [address] Laboratory Report Ordering Provider Test Date Status MARIELY VILLAGRAN 09/21/2023 03:25:00 Final Warfarin Therapy
INR: 2 .0-3.0 conventional anticoagulation
INR: 2.5- 3.5 high intensity anticoagulation Observation Date Value Abnormality Reference (Units ) Status PT 09/21/2023 03:25:00 14.6 11.6-15.2 (seconds) Final INR 09/21/2023 03:25:00 1.1 0.8-1.2 Final Performing Location LABORATORY [facility] [place] - [address] [place] [address]
--- OUTSIDE RECORDS SUMMARY | 2023-11-28 14:39 | External Medical Summary ---
Author Name Unknown Address Unknown Organization K01:LABORATORY [facility] [place] - [facility] [address] Laboratory Report Ordering Provider Test Date Status VENKATESH LUNDBERG 09/24/2023 07:25:00 Final Observation Date Value Abnormality Reference (Units ) Status WBC, Total 09/24/2023 07:25:00 10.09 4.00-10.80 (K/uL) Final RBC 09/24/2023 07:25:00 2.81 3.85-5.15 (M/uL) Final Hemoglobin 09/24/2023 07:25:00 8.6 Below low normal 12.0-15.3 (g/dL) Final HCT 09/24/2023 07:25:00 28.9 Below low normal 36.0-45.2 (%) Final MCV 09/24/2023 07:25:00 102.8 81.5-97.5 (fL) Final MCH 09/24/2023 07:25:00 30.6 27.0-34.0 (pg) Final MCHC 09/24/2023 07:25:00 29.8 32.0-36.0 (g/dL) Final RDW 09/24/2023 07:25:00 13.9 11.5-15.5 (%) Final Platelets 09/24/2023 07:25:00 169 140-400 (K/uL) Final MPV 09/24/2023 07:25:00 9.4 6.6-11.1 (fL) Final Nucleated erythrocytes/100 leukocytes [Ratio] in Blood by Automated count 09/24/2023 07:25:00 0 <=0 (/100 WBCs) Final Performing Location LABORATORY [facility] [place] - [address] [facility] [address]
--- OUTSIDE RECORDS SUMMARY | 2023-11-28 14:39 | External Medical Summary ---
Author Name Unknown Address Unknown Organization K01:LABORATORY [facility] [place] - [address] [place] [address] Laboratory Report Ordering Provider Test Date Status TIBURCIO BRUNO 09/21/2023 06:39:00 Final Observation Date Value Abnormality Reference (Units ) Status Lactic Acid 09/21/2023 06:39:00 3.1 Above high normal 0.4-2.0 (mmol/L) Final Performing Location LABORATORY [facility] [place] - [address] [place] [address]
--- OUTSIDE RECORDS SUMMARY | 2023-11-28 14:39 | External Medical Summary ---
Author Name Unknown Address Unknown Organization K01:LABORATORY [facility] [place] - [address] [address] Laboratory Report Ordering Provider Test Date Status KIMMIE SOLOMON 09/24/2023 14:52:00 Final Warfarin Therapy
INR: 2 .0-3.0 conventional anticoagulation
INR: 2.5- 3.5 high intensity anticoagulation Observation Date Value Abnormality Reference (Units ) Status PT 09/24/2023 14:52:00 13.7 11.6-15.2 (seconds) Final INR 09/24/2023 14:52:00 1.1 0.8-1.2 Final Performing Location LABORATORY [facility] - [address] [address]
--- OUTSIDE RECORDS SUMMARY | 2023-11-28 14:39 | External Medical Summary ---
Author Name Unknown Address Unknown Organization K01:LABORATORY [facility] - [address] [place] [address] Laboratory Report Ordering Provider Test Date Status MARIELY VILLAGRAN 09/21/2023 03:25:00 Final Observation Date Value Abnormality Reference (Units ) Status ABO 09/21/2023 03:25:00 O Final RH 09/21/2023 03:25:00 Positive Final Performing Location LABORATORY [facility] - [address] [place] [address]
--- OUTSIDE RECORDS SUMMARY | 2023-11-28 14:39 | External Medical Summary ---
Author Name Unknown Address Unknown Organization K01:LAB[facility]ATORY [facility] [place] [address] [place] [address] Laboratory Report Ordering Provider Test Date Status TIBURCIO BRUNO 09/22/2023 07:30:00 Final Observation Date Value Abnormality Reference (Units ) Status BUN 09/22/2023 07:30:00 32 Above high normal 6-20 (mg/dL) Final Creatinine 09/22/2023 07:30:00 1.5 Above high normal 0.5-1.0 (mg/dL) Final Glomerular filtration rate/1.73 sq M.predicted [Volume Rate/Area] in Serum, Plasma or Blood by Creatinine-based formula (CKD-EPI) 09/22/2023 07:30:00 35 Below low normal >=60 (mL/min) Final eGFR is calculated based on the CKD-EPI 2020 equation. Sodium 09/22/2023 07:30:00 136 135-146 (m mol/L) Final Potassium 09/22/2023 07:30:00 4.7 3.5-5.1 (m mol/L) Final Cl 09/22/2023 07:30:00 104 98-107 (mm ol/L) Final CO2 09/22/2023 07:30:00 25 22-32 (mmo l/L) Final Anion gap 09/22/2023 07:30:00 7 7-15 (mmol /L) Final Glucose 09/22/2023 07:30:00 103 70-120 (mg /dL) Final Calcium 09/22/2023 07:30:00 10.1 8.4-10.2 ( mg/dL) Final Performing Location LABORATORY [facility] [place] [address] [place] [address]
--- OUTSIDE RECORDS SUMMARY | 2023-11-28 14:39 | External Medical Summary ---
Author Name Unknown Address Unknown Organization : Laboratory Report Ordering Provider Test Date Status NO,UNKNOWN 09/21/2023 03:26:19 Final Observation Date Value Abnormality Reference (Units ) Status Blood draw [PhenX] 09/21/2023 03:26:19 Venous Final pH, POC (i-STAT) 09/21/2023 03:26:19 7.254 Below low normal 7.350-7.450 Final PCO2 POC (i-STAT) 09/21/2023 03:26:19 54.3 Above high normal 35.0-45.0 (mm Hg) Final PO2 POC (i-STAT) 09/21/2023 03:26:19 17 Below lower panic limits 75-100 (mm Hg) Final Bicarbonate, Venous, POC (i-STAT) 09/21/2023 03:26:19 24.0 23.0-31.0 (mmol/L) Final Base excess standard in Arterial blood by calculation 09/21/2023 03:26:19 -4 Below low normal -2-2 (mmol/L) Final O2 Sat, calculated POC (i-STAT) 09/21/2023 03:26:19 17.0 Below low normal 94.0-98.0 (%) Final Performing Location
--- OUTSIDE RECORDS SUMMARY | 2023-11-28 14:39 | External Medical Summary ---
Author Name Unknown Address Unknown Organization K01:LABORATORY [facility] [place] - [address] [facility] [place] [address] Laboratory Report Ordering Provider Test Date Status VENKATESH LUNDBERG 09/23/2023 05:20:00 Final Observation Date Value Abnormality Reference (Units ) Status WBC, Total 09/23/2023 05:20:00 10.32 4.00-10.80 (K/uL) Final RBC 09/23/2023 05:20:00 2.51 3.85-5.15 (M/uL) Final Hemoglobin 09/23/2023 05:20:00 7.9 Below low normal 12.0-15.3 (g/dL) Final HCT 09/23/2023 05:20:00 25.0 Below low normal 36.0-45.2 (%) Final MCV 09/23/2023 05:20:00 99.6 81.5-97.5 (fL) Final MCH 09/23/2023 05:20:00 31.5 27.0-34.0 (pg) Final MCHC 09/23/2023 05:20:00 31.6 32.0-36.0 (g/dL) Final RDW 09/23/2023 05:20:00 14.0 11.5-15.5 (%) Final Platelets 09/23/2023 05:20:00 138 Below low normal 140-400 (K/uL) Final MPV 09/23/2023 05:20:00 9.3 6.6-11.1 (fL) Final Nucleated erythrocytes/100 leukocytes [Ratio] in Blood by Automated count 09/23/2023 05:20:00 0 <=0 (/100 WBCs) Final Performing Location LABORATORY C - [address] [place] [address]
--- OUTSIDE RECORDS SUMMARY | 2023-11-28 14:39 | External Medical Summary ---
Author Name Unknown Address Unknown Organization K01:[facility]ORY [facility] [place] [address] [facility] [address] Laboratory Report Ordering Provider Test Date Status TIBURCIO BRUNO 09/23/2023 05:20:00 Final Observation Date Value Abnormality Reference (Units ) Status BUN 09/23/2023 05:20:00 31 Above high normal 6-20 (mg/dL) Final Creatinine 09/23/2023 05:20:00 1.4 Above high normal 0.5-1.0 (mg/dL) Final Glomerular filtration rate/1.73 sq M.predicted [Volume Rate/Area] in Serum, Plasma or Blood by Creatinine-based formula (CKD-EPI) 09/23/2023 05:20:00 36 Below low normal >=60 (mL/min) Final eGFR is calculated based on the CKD-EPI 2020 equation. Sodium 09/23/2023 05:20:00 136 135-146 (m mol/L) Final Potassium 09/23/2023 05:20:00 5.2 Above high normal 3. 5-5.1 (mmol/L) Final Cl 09/23/2023 05:20:00 106 98-107 (mm ol/L) Final CO2 09/23/2023 05:20:00 24 22-32 (mmo l/L) Final Anion gap 09/23/2023 05:20:00 6 Below low normal 7-1 5 (mmol/L) Final Glucose 09/23/2023 05:20:00 94 70-120 (mg /dL) Final Calcium 09/23/2023 05:20:00 10.2 8.4-10.2 ( mg/dL) Final Performing Location LABORATORY [facility] [place] [address] [place] [address]
--- OUTSIDE RECORDS SUMMARY | 2023-11-28 14:39 | External Medical Summary | Summary of Care ---
Author Name Unknown Organization [facility] Address [address] [place] [address] Phone [phone] Care Team Providers Care Mosaicist Name Role Phone Cathy Wilburn MD Primary Care Provide r Encounter Details Date Type Department Care Team (Late st Contact Info) Description 09/22/2023 Population Health External Data Unspecified Department Allergies [...] as of this encounter (statuses as of 09/22/2023) Medications Medication Sig Dispensed Refills Start Date [...] as of this encounter (statuses as of 09/22/2023) Active Problems Problem Noted Date Diagnosed Date [...] as of this encounter (statuses as of 09/22/2023) Resolved Problems Problem Noted Date Diagnosed Date [...] 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 LOC PRIM [id number] 02/14/200205/30 Other seborrheic keratosis 10/31/2001 0 06/06/2007 [...] as of this encounter (statuses as of 09/22/2023) Immunizations Name Administration Dates Next Due Pneumococcal [...] AM EDT Laboratory Lab Mobile Phlebotomy [facility] [address] [place] [address] [facility], [facility] Mobile Home Draw [address] [place] [address] 09/29/2023 6:00 AM EDT Anticoagulation Centralized Clinical Pharmacy Services, Mukesh Downey [address] [place] [address] [place] [address] [place] [address] 10/12/2023 3:00 PM EDT Office Visit Sleep Disorders Ctr [facility] 132 [facility] [place] [phone] Isabel Diallo, DO 132 [facility] [place] [address] 12/05/2023 1:00 PM EDT Imaging Radiology, [address] [place] [address] 12/20/2023 11:00 AM EDT Office Visit Orthopaedics [facility] 132 [facility] [place] [address] Kian Travis, DO 132 [facility] [place] [address] 12/26/2023 2:30 PM EDT Nurse Only Rheumatology [address] [place] [phone] [place], Nurse Rheum [address] [place] [phone] 01/06/2024 2:00 PM EST Office Visit Nephrology [address] [place] [address] Charlotte Cope PA-C [address] [place] [address] 01/23/2024 2:20 PM EST Office Visit Dermatology [address] [place] [address] Amber Orozco PA-C [address] [place] [address] [place] [address] 02/02/2024 2:30 PM EST Office Visit Hematology/Oncology [place] [address] [place] [phone] Mirna Camp CRNP [address] [place] [address] 02/14/2024 1:30 PM EST Office Visit Cardiology, [facility] [address] [place] [address] Jane Ashley CRNP [address] [place] [address] 05/15/2024 1:00 PM EDT Office Visit Nephrology [address] [place] [address] Charlotte Cope PA-C [address] [place] [address] 06/06/2024 3:20 PM EDT Office Visit Family Medicine [address] [place] [phone] Cathy Wilburn MD [address] [place] [address] [place] [address] Health Maintenance Due Date Last Done Comments COVID-19 Vaccine ( season) 2022 DXA Scan 10/22/2023 10/21/2021, 09/29, 08/28/2018, Additional history exists CKD PHOS USE SMARTSET 10971 08/16/202407/29, 05/12/2023, 11/05/2022, Additional history exists Albumin/Creatinine Ratio 08/24/2024 024, 07/19/2022, 04/06/2021, Additional history exists Depression Monitoring 08/24/2024 08/25/2023 CKD HGB USE SMARTSET 18823 09/20/202409/20, 09/21/2023, 09/21/2023, Additional history exists DIG LEVEL FOR MEDICATION MONITORING YEARLY 09/20/2024 09/21/2023, 06/22/2023, 04/29/2023, Additional history exists DTaP,Tdap,and Td Vaccines (2 - Td or Tdap) 12/31/2029 01/01/2020 (Declined), 12/30/2009, 12/30/2009, Additional history exists Pneumococcal Vaccine: 65+ Years Completed 02/08/2017, 02/23/2006 VITAMIN D LEVEL ONCE IN A LIFETIME-USE SMARTSET# 94852 Completed 08/17/2023, 06/27/2023, 06/22/2023, Additional history exists [...] this encounter Medical Devices Implanted Type Area Ticket Marker Device Identifier Shelf Expiration Date Model / Serial / Lot Lead Novus Bipolar 58cm - [id number] - [id number] Implanted:Qty: 1 on 04/11/2017 by Elda Patterson DO at OR [facility] Left: Heart [employer] : YONATHAN 12/18/2018 5076-58 / [id number] / Description:RIGHT VENTRICLE LEAD Lead Novus Bipolar 52cm - [id number] - [id number] Implanted:Qty: 1 on 04/11/2017 by Elda Patterson DO at OR [facility] Left: Heart [employer] : [facility] 12/24/2018 5076-52 / [id number] / Description:RIGHT ATRIAL ROCKY D Pacer Advisa Dr Dorsey - [id number] - [id number] Implanted:Qty: 1 on 04/11/2017 by Elda Patterson DO at OR [facility] Left: Chest [employer] 08/25/2018 A2DR01 / [id number] / documented as of this encounter Advance Directives Documents on File Type Date Recorded Patient Lease Picker Expl anation POLST 01/05/2021 [place] OR [facility] FOR LIFE-SUSTAINING TREATMENT * [...] 9:35 AM 07/03/2008 5:40 PM Care Teams Mosaicist Relationship Specialty Start Date End Date Cathy Wilburn MD [address] [place] [address] [place] [phone] PCP - General Family Medicine 12/03/22 documented as of this encounter
--- OUTSIDE RECORDS SUMMARY | 2023-11-28 14:39 | External Medical Summary ---
Author Name Unknown Address Unknown Organization K01:LABORATORY [facility] [place] - [address] [place] [address] Laboratory Report Ordering Provider Test Date Status KIMMIE SOLOMON 09/24/2023 14:52:00 Final Observation Date Value Abnormality Reference (Units ) Status Heparin, unfractionated level 09/24/2023 14:52:00 <0.10 <0.10 (IU/mL) Final Unfractionated therapeutic r anges for Anti Xa activity:
For Cardiac/Neurologic treatment: 0.3 to 0.6 IU/mL.
For treatment of DVT or Pulmonary Embolism: 0.3 to 0.7 IU/mL. Performing Location LABORATORY [facility] [place] - [address] [place] [address]
--- OUTSIDE RECORDS SUMMARY | 2023-11-28 14:39 | External Medical Summary ---
Author Name Unknown Address Unknown Organization K01:[facility]ATORY [facility] [place] [address] [place] [address] Laboratory Report Ordering Provider Test Date Status TIBURCIO BRUNO 09/21/2023 06:39:00 Final Observation Date Value Abnormality Reference (Units ) Status Lactic Acid, Whole Blood 09/21/2023 06:39:00 2.7 Above high normal 0.4-2.0 (mmol/L) Final Performing Location LAB[facility]ORY [facility] [place] [address] [place] [address]
--- OUTSIDE RECORDS SUMMARY | 2023-11-28 14:39 | External Medical Summary ---
Author Name Unknown Address Unknown Organization K01:LABORATORY [facility] [place] [facility] - [address] [place] [address] Laboratory Report Ordering Provider Test Date Status MILEYVALENTINE 09/24/2023 07:25:00 Final Observation Date Value Abnormality Reference (Units ) Status ABO 09/24/2023 07:25:00 O Final RH 09/24/2023 07:25:00 Positive Final RED BLOOD CELL ANTIBODY SCREEN 09/24/2023 07:25:00 Negative Final SPECIMEN EXPIRATION DATE 09/24/2023 07:25:00 09/27/2023 23:59 Final Performing Location LABORATORY [facility] [place] [facility] - [address] [place] [address]
--- OUTSIDE RECORDS SUMMARY | 2023-11-28 14:39 | External Medical Summary ---
Author Name Unknown Address Unknown Organization K01:LAB[facility]ATORY [facility] [place] [address] [place] [address] Laboratory Report Ordering Provider Test Date Status KIMMIE SOLOMON 09/24/2023 14:52:00 Final Anticoagulation may affect t esting. Refer to [employer] Test Catalog for a list of effects. Observation Date Value Abnormality Reference (Units ) Status aPTT panel - Platelet poor plasma 09/24/2023 14:52:00 33 21-38 (seconds) Final Performing Location LAB[facility]ATORY [facility] [place] [address] [place] [address]
--- OUTSIDE RECORDS SUMMARY | 2023-11-28 14:39 | External Medical Summary ---
Author Name Unknown Address Unknown Organization K01:LABORATORY [facility] [place] - [address] [place] [address] Laboratory Report Ordering Provider Test Date Status MARIELY VILLAGRAN 09/21/2023 03:25:00 Final Observation Date Value Abnormality Reference (Units ) Status Troponin T 09/21/2023 03:25:00 48 Above high normal < =14 (ng/L) Final Performing Location LABORATORY [facility] - [address] [place] [address]
--- OUTSIDE RECORDS SUMMARY | 2023-11-28 14:39 | External Medical Summary ---
Author Name Unknown Address Unknown Organization K01:[place] [place] [address] [place] [place] [address] Laboratory Report Ordering Provider Test Date Status VENKATESH LUNDBERG 09/22/2023 19:43:00 Final Observation Date Value Abnormality Reference (Units ) Status WBC, Total 09/22/2023 19:43:00 11.64 Above high normal 4.00-10.80 (K/uL) Final RBC 09/22/2023 19:43:00 2.57 3.85-5.15 (M/uL) Final Hemoglobin 09/22/2023 19:43:00 8.1 Below low normal 12.0-15.3 (g/dL) Final HCT 09/22/2023 19:43:00 25.2 Below low normal 36.0-45.2 (%) Final MCV 09/22/2023 19:43:00 98.1 81.5-97.5 (fL) Final MCH 09/22/2023 19:43:00 31.5 27.0-34.0 (pg) Final MCHC 09/22/2023 19:43:00 32.1 32.0-36.0 (g/dL) Final RDW 09/22/2023 19:43:00 14.2 11.5-15.5 (%) Final Platelets 09/22/2023 19:43:00 139 Below low normal 140-400 (K/uL) Final MPV 09/22/2023 19:43:00 9.2 6.6-11.1 (fL) Final Nucleated erythrocytes/100 leukocytes [Ratio] in Blood by Automated count 09/22/2023 19:43:00 0 <=0 (/100 WBCs) Final Performing Location [facility] [place] [address] [place] [address]
--- OUTSIDE RECORDS SUMMARY | 2023-11-28 14:39 | External Medical Summary ---
Author Name Unknown Address Unknown Organization [id number]:LABORATORY [facility] [place] - [address] [place] [address] Laboratory Report Ordering Provider Test Date Status TIBURCIO BRUNO 09/21/2023 11:36:00 Final Observation Date Value Abnormality Reference (Units ) Status Lactic Acid 09/21/2023 11:36:00 3.6 Above high normal 0.4-2.0 (mmol/L) Final Performing Location LABORATORY [facility] [place] - [address] [place] [address]
--- OUTSIDE RECORDS SUMMARY | 2023-11-28 14:39 | External Medical Summary ---
Author Name Unknown Address Unknown Organization [id number]:LABORATORY [facility] – [place] - [address] [place] [address] Laboratory Report Ordering Provider Test Date Status DANG ALEJANDRE 09/23/2023 09:28:00 Final Warfarin Therapy
INR: 2 .0-3.0 conventional anticoagulation
INR: 2.5- 3.5 high intensity anticoagulation Observation Date Value Abnormality Reference (Units ) Status PT 09/23/2023 09:28:00 13.5 11.6-15.2 (seconds) Final INR 09/23/2023 09:28:00 1.0 0.8-1.2 Final Performing Location LABORATORY [facility] [place] - [address] [place] [address]
--- OUTSIDE RECORDS SUMMARY | 2023-11-28 14:39 | External Medical Summary ---
Author Name Unknown Address Unknown Organization [id number][place] [facility] [place] [address] [place] [address] Laboratory Report Ordering Provider Test Date Status TIBURCIO BRUNO 09/24/2023 07:25:00 Final Observation Date Value Abnormality Reference (Units ) Status BUN 09/24/2023 07:25:00 29 Above high normal 6-20 (mg/dL) Final Creatinine 09/24/2023 07:25:00 1.3 Above high normal 0.5-1.0 (mg/dL) Final Glomerular filtration rate/1.73 sq M.predicted [Volume Rate/Area] in Serum, Plasma or Blood by Creatinine-based formula (CKD-EPI) 09/24/2023 07:25:00 41 Below low normal >=60 (mL/min) Final eGFR is calculated based on the CKD-EPI 2020 equation. Sodium 09/24/2023 07:25:00 137 135-146 (m mol/L) Final Potassium 09/24/2023 07:25:00 4.8 3.5-5.1 (m mol/L) Final Cl 09/24/2023 07:25:00 104 98-107 (mm ol/L) Final CO2 09/24/2023 07:25:00 24 22-32 (mmo l/L) Final Anion gap 09/24/2023 07:25:00 9 7-15 (mmol /L) Final Glucose 09/24/2023 07:25:00 97 70-120 (mg /dL) Final Calcium 09/24/2023 07:25:00 10.6 Above high normal 8. 4-10.2 (mg/dL) Final Performing Location [place] [facility] [place] [address] [place] [address]
--- OUTSIDE RECORDS SUMMARY | 2023-11-28 14:39 | External Medical Summary ---
Author Name Unknown Address Unknown Organization K01:LABORATORY [facility] [place] - [address] [facility] [address] Laboratory Report Ordering Provider Test Date Status DANG ALEJANDRE 09/22/2023 09:48:00 Final Observation Date Value Abnormality Reference (Units ) Status WBC, Total 09/22/2023 09:48:00 14.57 Above high normal 4.00-10.80 (K/uL) Final RBC 09/22/2023 09:48:00 2.86 3.85-5.15 (M/uL) Final Hemoglobin 09/22/2023 09:48:00 8.7 Below low normal 12.0-15.3 (g/dL) Final HCT 09/22/2023 09:48:00 28.4 Below low normal 36.0-45.2 (%) Final MCV 09/22/2023 09:48:00 99.3 81.5-97.5 (fL) Final MCH 09/22/2023 09:48:00 30.4 27.0-34.0 (pg) Final MCHC 09/22/2023 09:48:00 30.6 32.0-36.0 (g/dL) Final RDW 09/22/2023 09:48:00 14.1 11.5-15.5 (%) Final Platelets 09/22/2023 09:48:00 155 140-400 (K/uL) Final MPV 09/22/2023 09:48:00 9.0 6.6-11.1 (fL) Final Nucleated erythrocytes/100 leukocytes [Ratio] in Blood by Automated count 09/22/2023 09:48:00 0 <=0 (/100 WBCs) Final Performing Location LABORATORY [facility] [place] [address] [facility] [address]
--- OUTSIDE RECORDS SUMMARY | 2023-11-28 14:39 | External Medical Summary ---
Author Name Unknown Address Unknown Organization K01:[place] [facility] [place] [address] [facility] [address] Laboratory Report Ordering Provider Test Date Status TIBURCIO BRUNO 09/21/2023 06:39:00 Final Observation Date Value Abnormality Reference (Units ) Status WBC, Total 09/21/2023 06:39:00 9.43 4.00-10.80 (K/uL) Final RBC 09/21/2023 06:39:00 3.52 3.85-5.15 (M/uL) Final Hemoglobin 09/21/2023 06:39:00 10.7 Below low normal 12.0-15.3 (g/dL) Final HCT 09/21/2023 06:39:00 35.7 Below low normal 36.0-45.2 (%) Final MCV 09/21/2023 06:39:00 101.4 81.5-97.5 (fL) Final MCH 09/21/2023 06:39:00 30.4 27.0-34.0 (pg) Final MCHC 09/21/2023 06:39:00 30.0 32.0-36.0 (g/dL) Final RDW 09/21/2023 06:39:00 14.1 11.5-15.5 (%) Final Platelets 09/21/2023 06:39:00 146 140-400 (K/uL) Final MPV 09/21/2023 06:39:00 9.3 6.6-11.1 (fL) Final Nucleated erythrocytes/100 leukocytes [Ratio] in Blood by Automated count 09/21/2023 06:39:00 0 <=0 (/100 WBCs) Final Performing Location [place] [facility] [place] [address] [facility] [address]
--- OUTSIDE RECORDS SUMMARY | 2023-11-28 14:40 | External Medical Summary ---
Author Name Unknown Address Unknown Organization K01:[facility] [place] [facility] [address] [facility] [address] Laboratory Report Ordering Provider Test Date Status MARIELY VILLAGRAN 09/21/2023 03:25:00 Final Observation Date Value Abnormality Reference (Units ) Status WBC, Total 09/21/2023 03:25:00 12.94 Above high normal 4.00-10.80 (K/uL) Final RBC 09/21/2023 03:25:00 3.58 3.85-5.15 (M/uL) Final Hemoglobin 09/21/2023 03:25:00 11.0 Below low normal 12.0-15.3 (g/dL) Final HCT 09/21/2023 03:25:00 35.5 Below low normal 36.0-45.2 (%) Final MCV 09/21/2023 03:25:00 99.2 81.5-97.5 (fL) Final MCH 09/21/2023 03:25:00 30.7 27.0-34.0 (pg) Final MCHC 09/21/2023 03:25:00 31.0 32.0-36.0 (g/dL) Final RDW 09/21/2023 03:25:00 13.6 11.5-15.5 (%) Final Platelets 09/21/2023 03:25:00 168 140-400 (K/uL) Final MPV 09/21/2023 03:25:00 8.8 6.6-11.1 (fL) Final Nucleated erythrocytes/100 leukocytes [Ratio] in Blood by Automated count 09/21/2023 03:25:00 0 <=0 (/100 WBCs) Final Performing Location [facility] [place] [address] [facility] [address]
--- OUTSIDE RECORDS SUMMARY | 2023-11-28 14:40 | External Medical Summary ---
Author Name Unknown Address Unknown Organization : Laboratory Report Ordering Provider Test Date Status NO,UNKNOWN 09/21/2023 03:22:22 Final Observation Date Value Abnormality Reference (Units ) Status Sodium, Whole Blood 09/21/2023 03:22:22 139 135-146 (mmol/L) Final Potassium, Whole Blood 09/21/2023 03:22:22 4.7 3.5-5.1 (mmol/L) Final Chloride, Whole Blood 09/21/2023 03:22:22 104 98-107 (mmol/L) Final Calcium, Ionized, Whole Blood 09/21/2023 03:22:22 1.30 1.13-1.32 (mmol/L) Final Carbon dioxide, total [Moles/volume] in Blood 09/21/2023 03:22:22 25 22-32 (mmol/L) Final Glucose, whole blood 09/21/2023 03:22:22 185 Above high normal 70-120 (mg/dL) Final BUN, POC (i-STAT) 09/21/2023 03:22:22 29 Above high normal 6-20 (mg/dL) Final Creatinine, POC (i-STAT) 09/21/2023 03:22:22 1.5 Above high normal 0.5-1.0 (mg/dL) Final HCT 09/21/2023 03:22:22 35 Below low normal 36-45 (%) Final Hemoglobin POC (i-STAT) 09/21/2023 03:22:22 11.9 Below low normal 12.0-15.3 (g/dL) Final Anion gap, Whole Blood 09/21/2023 03:22:22 15 7-15 (mmol/L) Final Performing Location
--- OUTSIDE RECORDS SUMMARY | 2023-11-28 14:40 | External Medical Summary ---
Author Name Unknown Address Unknown Organization K01:LABORATORY [facility] - [address] [address] Laboratory Report Ordering Provider Test Date Status MARIELY VILLAGRAN 09/21/2023 03:25:00 Final Observation Date Value Abnormality Reference (Units ) Status SYNC LEUKOCYTES IN BLOOD BY AUTOMATED COUNT 09/21/2023 03:25:00 12.94 Above high normal 4.00-10.80 (K/uL) Final Segs 09/21/2023 03:25:00 86.6 Above high normal 40.0-75.0 (%) Final Lymphs % 09/21/2023 03:25:00 9.5 Below low normal 18.0-42.0 (%) Final Monos 09/21/2023 03:25:00 2.2 1.0-11.0 (%) Final Eosinophils 09/21/2023 03:25:00 0.3 0.0-6.0 (%) Final Basos 09/21/2023 03:25:00 0.5 0.0-2.0 (%) Final Immature Granulocyte, Percent 09/21/2023 03:25:00 0.9 0.0-2.0 (%) Final Absolute Segs 09/21/2023 03:25:00 11.19 Above high normal 1.80-7.70 (K/uL) Final Lymphs, absolute 09/21/2023 03:25:00 1.23 1.00-4.80 (K/ul) Final Monos, Abs 09/21/2023 03:25:00 0.29 0.00-1.10 (K/uL) Final Eos, Abs 09/21/2023 03:25:00 0.04 0.00-0.70 (K/uL) Final Basos, Abs 09/21/2023 03:25:00 0.07 0.00-0.20 (K/uL) Final Immature Granulocytes, Number 09/21/2023 03:25:00 0.12 0.00-0.20 (K/uL) Final Performing Location LABORATORY [facility] [place] - [facility] [address] [facility] [address]
--- OUTSIDE RECORDS SUMMARY | 2023-11-28 14:40 | External Medical Summary ---
Author Name Unknown Address Unknown Organization K01:[facility] [place] - [address] [place] [address] Laboratory Report Ordering Provider Test Date Status ITALIA RIVERA 09/21/2023 03:25:00 Final Recommended trough therapeut ic ranges:
0.5 to 0.8 for heart failure
0.5 to 1.1 for atrial fibrillation Observation Date Value Abnormality Reference (Units ) Status Digoxin 09/21/2023 03:25:00 0.8 0.5-1.1 (n g/mL) Final Performing Location LAB[facility]ATORY [facility] - [address] [place] [address]
--- OUTSIDE RECORDS SUMMARY | 2023-11-28 14:40 | External Medical Summary ---
Author Name Unknown Address Unknown Organization K01:LABORATORY [facility] [place] - [address] [place] [address] Laboratory Report Ordering Provider Test Date Status MARIELY VILLAGRAN 09/21/2023 03:25:00 Final Observation Date Value Abnormality Reference (Units ) Status Lactic Acid, Whole Blood 09/21/2023 03:25:00 2.8 Above high normal 0.4-2.0 (mmol/L) Final Performing Location LABORATORY [facility] [place] - [address] [place] [address]
--- OUTSIDE RECORDS SUMMARY | 2023-11-28 14:40 | External Medical Summary ---
Author Name Unknown Address Unknown Organization K01:[facility] [place] [address] [address] Laboratory Report Ordering Provider Test Date Status MARIELY VILLAGRAN 09/21/2023 03:25:00 Final Observation Date Value Abnormality Reference (Units ) Status BUN 09/21/2023 03:25:00 28 Above high normal 6-20 (mg/dL) Final Creatinine 09/21/2023 03:25:00 1.4 Above high normal 0.5-1.0 (mg/dL) Final Glomerular filtration rate/1.73 sq M.predicted [Volume Rate/Area] in Serum, Plasma or Blood by Creatinine-based formula (CKD-EPI) 09/21/2023 03:25:00 36 Below low normal >=60 (mL/min) Final eGFR is calculated based on the CKD-EPI 2020 equation. Sodium 09/21/2023 03:25:00 135 135-146 (m mol/L) Final Potassium 09/21/2023 03:25:00 4.7 3.5-5.1 (m mol/L) Final Cl 09/21/2023 03:25:00 103 98-107 (mm ol/L) Final CO2 09/21/2023 03:25:00 20 Below low normal 22- 32 (mmol/L) Final Anion gap 09/21/2023 03:25:00 12 7-15 (mmol /L) Final Glucose 09/21/2023 03:25:00 207 Above high normal 70 -120 (mg/dL) Final Albumin 09/21/2023 03:25:00 3.5 Below low normal 3.8 -5.0 (g/dL) Final AST (Aspartate aminotransferase) 09/21/2023 03:25:00 22 10-35 (U/L) Fin al Alk Phos 09/21/2023 03:25:00 40 35-130 (U/ L) Final Bilirubin, Total 09/21/2023 03:25:00 0.5 <=1 .2 (mg/dL) Final Calcium 09/21/2023 03:25:00 9.7 8.4-10.2 ( mg/dL) Final Protein 09/21/2023 03:25:00 5.8 Below low normal 6.0 -8.3 (g/dL) Final ALT (Alanine aminotransferase) 09/21/2023 03:25:00 15 10-35 (U/L) David chatman Performing Location [facility] [place] [address] [facility] [address]
--- OUTSIDE RECORDS SUMMARY | 2023-11-28 14:40 | External Medical Summary | Summary of Care ---
Author Name Unknown Organization [facility] Address [address] [place] [address] Phone [phone] Care Team Providers Care Stiff Leg Derrick Operator Name Role Phone Cathy Wilburn MD Primary Care Provide r Reason for Visit * Reason Comments Re-Check Encounter Details Date Type Department Care Team (Late st Contact Info) Description 09/20/2023 1:40 PM EDT Office Visit Family Medicine [address] [phone] Cathy Wilburn MD [address] [place] [address] [place] [phone] Paroxysmal atrial fibrillation (HCC)*; Glaucoma, unspecified glaucoma type, unspecified laterality; DVT, lower extremity, distal, acute, right (HCC); Chronic diastolic heart failure (HCC); HTN, goal below 140/90; Chronic kidney disease, stage 3b ([facility]) Allergies Active Allergy Reactions Criticality Noted Date [...] as of this encounter (statuses as of 09/20/2023) Medications Medication Sig Dispensed Refills Start Date End Date Status denosumab (PROLIA) 60 MG/ML injection Inject 60 mg under the skin once. 1 Syringe 02/08/2017 Active oxygen GAS Use 2 L/min(Oxygen) as directed at bedtime. Active Acetaminophen 325 MG Oral Tablet (Tylenol) Take by mouth 2 Tablets every 4 hours as needed for Fever >38C(100.5F), Pain, Mild, Pain, Moderate or Pain, Severe. 100 Tablet 1 2021 Active Bladder Control Pads Ex AbsorbIndications :Mixed stress and urge urinary incontinence Daily use of urinary incontinence 72 Each 11 03/17/2023 Active Aspirin 81 MG Oral Tablet Delayed Release (Aspirin Low Dose) TAKE ONE TABLET IN THE MORNING 90 Tablet 3 07/06/2023 Active Atorvastatin Calcium 40 MG Oral Tablet (Lipitor)Indicati ons:Atheroscleros is of [place] coronary artery of [place] heart without angina pectoris,Dyslipid emia, goal LDL below 70 Take 1 Tablet by mouth at bedtime. 90 Tablet 3 07/06/2023 Active Cholecalciferol 25 MCG (1000 UT) Oral CapsuleIndication s:Senile osteoporosis Take 2 Capsules by mouth in the morning. 180 Capsule 1 07/06/2023 Active Diclofenac Sodium 1 % External Gel (Voltaren)Indicat ions:Acute bilateral low back pain without sciatica Apply to the affected area daily 350 g 2 07/06/2023 Active Digoxin 125 MCG Oral Tablet (Lanoxin) One tablet three days weekly 90 Tablet 1 07/06/2023 Active DULoxetine HCl 30 MG Oral Capsule Delayed Release Particles (Cymbalta)Indicat ions:Moderate episode of recurrent major depressive disorder (HCC) Take 1 Capsule by mouth in the morning. In the morning.. 90 Capsule 3 07/06/2023 Active Latanoprost 0.005 % Ophthalmic Solution (Xalatan) ONE DROP IN EACH EYE AT BEDTIME 2.5 mL 12 07/06/2023 Active Magnesium Chloride 64 MG Oral Tablet Take 1 Tablet by mouth daily. 90 Tablet 1 07/06/2023 Active Metoprolol Succinate ER 100 MG Oral Tablet Extended Release 24 Hour (Toprol XL) Take 1 Tablet by mouth in the morning and 1 Tablet before bedtime. 180 Tablet 07/06/2023 Active Omeprazole 20 MG Oral Capsule Delayed Release (PriLOSEC)Indicat ions:Gastro-esoph ageal reflux disease without esophagitis Take 1 Capsule by mouth in the morning. In the morning.. 90 Capsule 1 07/06/2023 Active Sennosides-Docusa te Sodium 8.6-50 MG Oral Tablet (Senexon-S) Take 2 Tablets by mouth every night at bedtime. 180 Tablet 07/06/2023 Active Torsemide 10 MG Oral Tablet (Demadex) Take 1 Tablet by mouth in the morning. 90 Tablet 1 07/06/2023 Active Torsemide 5 MG Oral Tablet (Demadex) One tablet along with 10mg to equal 15mg daily 90 Tablet 1 07/06/2023 Active Vitamin B-12 1000 MCG Oral Tablet (Cyanocobalamin)I ndications:B12 deficiency TAKE 1 TABLET BY MOUTH ON TUESDAY, TUESDAY AND TUESDAY 30 Tablet 11 07/06/2023 Active Warfarin Sodium 2 MG Oral Tablet (Jantoven) Take 1-2 Tablets by mouth every evening. 180 Tablet 1 07/06/2023 Active Potassium Chloride ER 10 MEQ Oral Capsule Extended ReleaseIndication s:Chronic diastolic heart failure (HCC) Take 1 Capsule by mouth in the morning. 30 Capsule 1 07/21/2023 Active LORazepam 0.5 MG Oral Tablet (Ativan)Indicatio ns:Anxiety Take 0.5 Tablets by mouth daily as needed for Anxiety. 15 Tablet 08/29/2023 Active FeroSul 325 (65 Fe) MG Oral Tablet Take 1 Tablet by mouth every other day. 09/20/2023 Active FeroSul 325 (65 Fe) MG Oral Tablet Take 1 Tablet by mouth in the morning and 1 Tablet before bedtime. 180 Tablet 1 07/06/2023 Discontinu ed(Refill) documented as of this encounter (statuses as of 09/20/2023) Active Problems Problem Noted Date Diagnosed Date Glaucoma 09/20/2023 DVT, lower extremity, distal, acute, [...] lumbosacral intervertebral disc 02/04/2009 Coronary atherosclerosis of [place] coronary luis ry 02/24/2005 Senile osteoporosis 05/14/2003 Carpal tunnel syndrome 04/23/2003 Moderate mitral regurgitation GENERAL OSTEOARTHROSIS Gastroesophageal reflux disease without esophagi tis Vitamin D deficiency Hyperparathyroidism, primary documented as of this encounter (statuses as of 09/20/2023) Resolved Problems Problem Noted Date Diagnosed Date [...] 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 LOC PRIM [id number] 02/14/200205/30 Other seborrheic keratosis 10/31/2001 0 06/06/2007 [...] as of this encounter (statuses as of 09/20/2023) Immunizations Name Administration Dates Next Due Pneumococcal [...] have concerns for your saf ety? No 09/07/2023 Do you have concerns for you r family's safety? (Household - for ages 0-17 years) Not on file 09/07/2023 Utilities Answer Date Recorded Do you have trouble paying y our heating, water, or electric bill? No 09/07/2023 Is your family able to pay t he heat, water, or electric bill? (Household - for ages 0-17 years) Not on file 09/07/2023 Does your family have access to good internet? (Household - for ages 0-17 years) Not on file 09/07/2023 Employment Status Answer Date Recorded Are you [...] 18 years and over) Not on file 09/07/2023 Does your family have a hard time getting a ride to doctors visits? (Household - for ages 0-17 years) Not on file 09/07/2023 Has lack of transportation k ept you from medical appointments, meetings, work, or from getting things needed for daily living? Check all that apply. No 09/07/2023 Do you (or your family) have trouble finding or paying for a ride (transportation)? (Household - for ages 0-17 years) Not on file 09/07/2023 Housing Stability Answer Date Recorded Do you currently live in a s helter or have no steady place to sleep at night? No 09/07/2023 Do you think you are at risk of becoming homeless? (Adult - for ages 18 years and over) Not on file 09/07/2023 Does your family worry about paying for your home or becoming homeless? (Household - for ages 0-17 years) Not on file 0 09/07/2023 Are you homeless or worried that you might be in the future? No 09/07/2023 Are you (or your family) ji eless or worried that you might be in the future? (Household - for ages 0-17 years) Not on file Food Insecurity Answer Date Recorded Do you need food for this week? No 09/07/2023 Are you able to get enough f ood for your family? (Household - for ages 0-17 years) Not on file 09/07/2023 Does your family need food t his week? (Household - for ages 0-17 years) Not on file 09/07/2023 Do you always have enough fo od for your family? (Household - for ages 0-17 years) Not on file 09/07/2023 Sex and Gender Information Value Date Recorded Sex Assigned at Not on file Gender Identity Not on file Sexual Orientation Straight 05/30/2020 11 :18 AM EDT Job Start Date Occupation Industry Not on file Not on file Not on file documented as of this encounter Last Filed Vital Signs Vital Sign Reading Time Taken Comments Blood Pressure 132/80 09/20/2023 1:48 PM EDT Pulse 91 09/20/2023 1:48 PM EDT Temperature 36.3 C (97.3 F) 09/20/2023 1:48 PM ED T Respiratory Rate 16 09/20/2023 1:48 PM EDT Oxygen Saturation 94% 09/20/2023 1:48 PM EDT Inhaled Oxygen Concentration - - Weight 74.4 kg (164 lb) 09/20/2023 1:48 PM EDT Height - - Body Mass Index 25.69 04/25/2023 12:45 PM EST documented in this [...] Progress Notes * Cathy Wilburn MD - 09/20/2023 1:58 PM EDT Subjective: HPI: Miranda Coe is a 88 year old female with hx of HLD, MARTI on CPAP, Afib, Tachy- kraig syndrome s/p pacemaker, CAD s/p PCI, HFpEF, HTN, CKD III, GERD, anxiety, colon Cancer s/p hemicolectomy, Hyperparathyroidism, hx of RLE DVT seen for Afib, tachy-kraig syndrome s/p pacemaker: - on digoxin (3x/week), metoprolol ER 100mg BID and coumadin - doing better since decreasing the metoprolol dose - denied any dizziness or syncope HFpEF and HTN with CKD III: - on torsemide 15mg daily, KCL 10meq daily Pt has not used the ativan yet - only takes it as needed for anxiety Patient Active Problem List Diagnosis Carpal tunnel syndrome Senile osteoporosis Coronary atherosclerosis of [place] coronary artery Moderate mitral regurgitation GENERAL OSTEOARTHROSIS [...] DVT, lower extremity, distal, acute, right (HCC) Current Outpatient Medications Medication Sig Dispense Refill denosumab (PROLIA) 60 MG/ML injection Inject 60 mg under the skin once. 1 Syringe 0 oxygen GAS Use 2 L/min(Oxygen) as directed at bedtime. Acetaminophen 325 MG Oral Tablet (Tylenol) Take by mouth 2 Tablets every 4 hours as needed for Fever >38C(100.5F), Pain, Mild, Pain, Moderate or Pain, Severe. 100 Tablet 1 Bladder Control Pads Ex Absorb Daily use of urinary incontinence 72 Each 11 Aspirin 81 MG Oral Tablet Delayed Release [...] by mouth every evening. 180 Tablet 1 Potassium Chloride ER 10 MEQ Oral Capsule Extended Release Take 1 Capsule by mouth in the morning. 30 Capsule 1 LORazepam 0.5 MG Oral Tablet (Ativan) Take 0.5 Tablets by mouth daily as needed for Anxiety. 15 Tablet 0 FeroSul 325 (65 Fe) MG Oral Tablet Take 1 Tablet by mouth every other day. No current facility-administered medications for this visit. Past Medical History: Diagnosis Date Acute pulmonary embolism ([facility]) 07/17/2021 Allergic rhinitis 10/06/2012 Anxiety state 05/02/2009 Asthma, severity to be determined Atrial premature beats Benign neoplasm of colon 1991 hyperplastic polyp Benign neoplasm of skin Benign paroxysmal vertigo Cardiac pacemaker in situ 04/19/2017 Coronary atherosclerosis of [place] coronary artery 02/01 Degeneration of lumbosacral intervertebral disc 02/04/2009 Depressive disorder, not elsewhere classified 05/02/2009 Diffuse cystic mastopathy Diffuse cystic mastopathy DVT, lower extremity, distal, acute, right ([facility]) 06/03/2021 Dyslipidemia, goal LDL below 100 05/28/2014 Dyslipidemia, goal LDL below 70 10/09/2009 Esophageal reflux Essential hypertension with goal blood pressure less than 140/90 11/24/2015 Ganglion of tendon left foot Generalized osteoarthritis HTN, goal below 130/80 02/04/2009 HTN, goal below 140/90 05/28/2014 Hypercalcemia 11/04 Hyperparathyroidism, primary ([facility]) Hyperparathyroidism, unspecified ([facility]) 07/02/2008 RLP Parathyroid adenoma resection Fam Smith, DO July 02, 2008 Hypertension goal BP (blood pressure) < 140/80 02/25/2014 Ischemic cardiomyopathy 02/01 LVEF 40 % on cath Kidney disease, chronic, stage III (GFR 30-59 ml/min) ([facility]) 04/08/2015 LAE (left atrial enlargement) 06/03/2021 Duplicate Localized, primary osteoarthritis of hand 02/04/2011 Malignant neoplasm of ascending colon ([facility]) 05/12/2021 S/P colectomy-No current treatment Menopause Mitral [...] HEART THRU SKIN 02/18/2005 Dr. Gunter - [facility] [place] 03/19/2001 PAH--the heart appears [...] - invasive adenocarcinoma, adenomatous polyps, diverticulosis / [facility] COLONOSCOPY, DIAGNOSTIC (RECTUM) N/A 06/24/2022 multiple polyps/few angiodysplastic lesions ascending colon/hemorrhoids/biopsies show adenomatous polyps/recall 6 months/[place]/[facility] COLONOSCOPY, DIAGNOSTIC (RECTUM) N/A 12/09/2022 poor prep/biopsies normal/Colonoscopy/[place] COLONOSCOPY, SURGERY REFERRAL OP 07/30/2003 Dr. Schultz - normal EGD, FLEXIBLE, DIAGNOSTIC 01/15/2021 normal bx / [facility] EXPLORE PARATHYROID GLANDS 07/02/2008 PARATHYROIDECTOMY performed by FAM SMITH at [facility] INFORMATION FACIAL FX INFORMATION L hand tumor INSERT/REPLACE PACEMAKER,ATRIAL/VENTRICULAR Left 04/11/2017 NEW DDD PACEMAKER IMPLANT performed by Elda Patterson DO at OR [facility] INSERTION OF LENS PROSTHESIS 07/05/2012 right eye, dr ortega [facility] ARTHROSCOPY, DIAGNOSTIC 01/28/1994 left knee LAPAROSCOPIC COLECTOMY PARTIAL WITH ANASTOMOSIS 04/27/2021 right hemicolectomy, Dr. Salamanca [facility] CARDIAC THALLIUM STRESS, OUTSIDE FILMS 01/28/1998 negative PARTIAL REMOVAL OF COLON Right 04/27/2021 right hemicolectomy with anastamosis for ascending colon cancer--Dr. Ashok Salamanca [facility] STENT/CHEST VERTEBRAL ARTERY, INITIAL 02/18/2005 LAD SAMPLE DYE MIXER VEIN LIGATION W/ GRAFT, 1 LEG LLE [...] Vaping/E-Cigarette Devices ROS: -Per HPI OBJECTIVE: BP 132/80 | Pulse 91 | Temp 36.3 C (97.3 F) (Tympanic) | Resp 16 | Wt 74.4 kg (164 lb) | SpO2 94% | BMI 25.69 kg/m | BSA 1.88 m PHYSICAL EXAM: Vitals are reviewed General:. NAD, well developed HEENT:. Normal Conjunctiva, EOMI Cardiac:in afib Lungs:. CTA, no wheezing or crackles MSK:. No LE edema Psych:. AAOx3, normal affect ASSESSMENT/PLAN: Paroxysmal atrial fibrillation (HCC) (Primary) - HR wnl - continue the current metoprolol dose Glaucoma, unspecified glaucoma type, unspecified laterality - follows up with horseshoer DVT, lower extremity, distal, acute, right (HCC) - on coumadin Chronic diastolic heart failure (HCC) - pt is euvolemic HTN, goal below 140/90 - BP wnl Chronic kidney disease, stage 3b (HCC) - Cr has been stable Follow Up: Return in about 6 months (around 03/22/2024). Cathy Wilburn MD Family medicine, [place] [phone] documented in this encounter Nursing Notes * Faviola Sainz LPN - 09/20/2023 1:45 PM EDT 2 month recheck documented in this encounter Plan of Treatment Upcoming Encounters Date Type Department Care Team (Late st Contact Info) Description 09/28/2023 7:15 AM EDT Laboratory Lab Mobile Phlebotomy [facility] [address] [place] [address] [facility] Home Draw [address] [place] [address] 09/29/2023 6:00 AM EDT Anticoagulation [facility], Mukesh Downey [address] [place] [address] [place] [address] [place] [address] 10/12/2023 3:00 PM EDT Office Visit Sleep Disorders Ctr [facility] [address] [place] [phone] Isabel Diallo, DO [address] [place] [address] 12/05/2023 1:00 PM EDT Imaging Radiology, [address] [place] [address] 12/20/2023 11:00 AM EDT Office Visit Orthopaedics [facility] [address] [place] [address] Kian Travis, DO [address] [place] [address] 12/26/2023 2:30 PM EDT Nurse Only Rheumatology [address] [place] [phone] [place], Nurse Rheum [address] [place] [phone] 01/06/2024 2:00 PM EST Office Visit Nephrology [address] [place] [phone] Charlotte Cope PA-C [address] [place] [address] 01/23/2024 2:20 PM EST Office Visit Dermatology [address] [place] [phone] Amber Orozco PA-C [address] [place] [address] [place] [address] 02/02/2024 2:30 PM EST Office Visit Hematology/Oncology [facility] [address] [place] [phone] Mirna Camp CRNP [address] [place], [place] [address] [address] 02/14/2024 1:30 PM EST Office Visit Cardiology, [facility] [address] [place] [address] Jane Ashley CRNP [address] [place] [address] 05/15/2024 1:00 PM EDT Office Visit Nephrology [address] [place] [address] Charlotte Cope PA-C [address] [place] [address] 06/06/2024 3:20 PM EDT Office Visit Family Medicine [address] [place] [phone] Cathy Wilburn MD [address] [place] [address] [place] [address] Health Maintenance Due Date Last Done Comments COVID-19 Vaccine (2022- season) 2022 DXA Scan 10/22/2023 10/21/2021, 09/29, 08/28/2018, Additional history exists DIG LEVEL FOR MEDICATION MONITORING YEARLY 06/21/2024 06/22/2023, 04/29/2023, 04/22/2023, Additional history exists CKD HGB USE SMARTSET 22548 08/16/202408/16, 07/26/2023, 07/26/2023, Additional history exists CKD PHOS USE SMARTSET 88114 08/16/202407/29, 05/12/2023, 11/05/2022, Additional history exists Albumin/Creatinine Ratio 08/24/2024 024, 07/19/2022, 04/06/2021, Additional history exists Depression Monitoring 08/24/2024 08/25/2023 DTaP,Tdap,and Td Vaccines (2 - Td or Tdap) 12/31/2029 01/01/2020 (Declined), 12/30/2009, 12/30/2009, Additional history exists Pneumococcal Vaccine: 65+ Years Completed 02/08/2017, 02/23/2006 VITAMIN D LEVEL ONCE IN A LIFETIME-USE SMARTSET# [id number] Completed 08/17/2023, 06/27/2023, 06/22/2023, Additional history exists [...] this encounter Medical Devices Implanted Type Area Draw Off Worker Device Identifier Shelf Expiration Date Model / Serial / Lot Lead Novus Bipolar 58cm - [id number] - [id number] Implanted:Qty: 1 on 04/11/2017 by lEda Patterson DO at OR [facility] Left: Heart [employer] : [employer] 12/18/2018 5076-58 / [id number] / Description:RIGHT VENTRICLE LEAD Lead Novus Bipolar 52cm - [id number] - [id number] Implanted:Qty: 1 on 04/11/2017 by Elda Patterson DO at OR [facility] Left: Heart [employer] : [employer] 12/24/2018 5076-52 / [id number] / Description:RIGHT ATRIAL ROCKY D Pacer Advisa Dr Dorsey - [id number] - [id number] Implanted:Qty: 1 on 04/11/2017 by Elda Patterson DO at OR [facility] Left: Chest [employer] 08/25/2018 [id number] / [id number] / documented as of this encounter Visit Diagnoses Diagnosis Paroxysmal atrial fibrillation (HCC)- Primary Atrial fibrillation Glaucoma, unspecified glaucoma type, unspecified laterality DVT, lower extremity, distal, acute, right (HCC) Chronic diastolic heart failure (HCC) Chronic diastolic heart failure HTN, goal below 140/90 Unspecified essential hypertension Chronic kidney disease, stage 3b (HCC) documented in this encounter Advance Directives Documents on File Type Date Recorded Patient Surveying Crew Rodman Expl anation ALEXANDRA 01/05/2021 [place] [facility] FOR LIFE-SUSTAINING TREATMENT * Full Code (Latest Code Status on File) Date Activated Date Inactivated Comments 07/02/2008 9:35 AM 07/03/2008 5:40 PM Care Teams Stiff Leg Derrick Operator Relationship Specialty Start Date End Date Cathy Wilburn MD [address] [place] [address] [place] [phone] PCP - General Family Medicine 12/03/22 documented as of this encounter"
[2023-11-28] MEDS: METOPROLOL SUCC 50MG EXT REL TAB PO STA (14:48)
[2023-11-28] MEDS: amLODIPine BESYLATE 5 MG TAB PO ONE (14:48)
[2023-11-28] MEDS: DIGOXIN 0.125 MG TAB PO SCH (16:39)
[2023-11-28] MEDS: traMADol HCL 50 MG TABLET PO STA (16:39)
--- NOTE | 2023-11-28 16:51 | Electrocardiogram Report ---
Test Reason : Blood Pressure : */* mmHG Vent. Rate : 76 BPM Atrial Rate : 110 BPM P-R Int : * ms QRS Dur : 188 ms QT Int : 448 ms P-R-T Axes : * -69 110 degrees QTcB Int : 504 ms Ventricular-paced rhythm Abnormal ECG When compared with ECG of 21-Sep-2023 00:46, Electronic ventricular pacemaker has replaced Atrial fibrillation Confirmed by Tj Barlow ([id number]) on 11/28/2023 4:50:59 PM Referred By: REFERRED SELF Confirmed By: Tj Barlow
[2023-11-28] MEDS ORDERED: ONDANSETRON INJ 2 MG/ML 2 ML VIAL IV PRN (19:48)
[2023-11-28] MEDS: ACETAMINOPHEN 500 MG TAB PO SCH (22:13)
[2023-11-28] MEDS: CYANOCOBALAMIN (B-12) 500 MCG TABLET PO SCH (22:13)
[2023-11-28] MEDS: LATANOPROST 0.005% OP SOLN 2.5 ML BTL OPB SCH (22:14)
[2023-11-28] MEDS: APIXABAN 2.5 MG TAB PO SCH (22:14)
[2023-11-28] MEDS: ATORVASTATIN 40 MG TAB PO SCH (22:14)
[2023-11-28] MEDS: METOPROLOL SUCC 50MG EXT REL TAB PO SCH (22:14)
[2023-11-29] MEDS: traMADol HCL 50 MG TABLET PO PRN (05:13)
[2023-11-29 06:23] LABS: Hematocrit (blood only) 38.5 % (37.0-47.0); Hemoglobin 11.8 g/dl (12.0-16.0); Mean Corpuscular Hemoglobin 30.7 pg (25.0-34.0); Mean Corpuscular Hgb Conc 30.6 g/dL (32.0-36.0); Mean Corpuscular Volume 100.3 fL (80.0-100.0); Mean Platelet Volume 9.1 fL (9.4-12.4); Platelet Count 152 K/uL (130-400); RDW Standard Deviation 51.8 fL (36.4-46.3); Red Blood Count 3.84 M/uL (4.20-5.40); White Blood Count 6.91 K/ul (4.8-10.8)
[2023-11-29 06:42] LABS: BUN Creatinine Ratio 16.5 (10-20); Calcium 10.5 mg/dl (8.6-10.3); Creatinine Clr Calc Pharmacy 25.6 ml/min; Est GFR (African American) 31.1 ml/min; Est GFR (Non-African American) 26.8 ml/min; Potassium 4.5 mmol/L (3.5-5.1)
[2023-11-29 06:47] LABS: Prothrombin Time 11.2 Seconds (9.0-12.0)
[2023-11-29 06:55] LABS: Thyroid Stimulating Hormone 1.41 uIu/ml (0.300-4.500)
[2023-11-29] MEDS ORDERED: MAGNESIUM CHLORIDE W/CALCIUM 64MG DELAYED REL TAB PO SCH (09:00)
[2023-11-29] MEDS: CHOLECALCIFEROL 25 MCG (1000 UNITS) TAB PO SCH (09:46)
[2023-11-29] MEDS: TORSEMIDE 10 MG TAB PO SCH (09:46)
[2023-11-29] MEDS: DULoxetine HCL 30 MG CAP PO SCH (09:47)
[2023-11-29] MEDS: PANTOprazole 40 MG TAB PO SCH (09:47)
[2023-11-29] MEDS: POTASSIUM CHLORIDE 10 MEQ TABCR PO SCH (09:51)
--- NOTE | 2023-11-29 14:02 | Hospitalist Progress Note ---
Date of Service November 29, 2023 Assessment & Plan (1) Ambulatory dysfunction: (2) Fracture of metatarsal of right foot, closed: (3) Fall from standing: (4) Chronic combined systolic and diastolic heart failure: (5) Permanent atrial fibrillation: (6) Colon adenocarcinoma: (7) Deep vein thrombosis (DVT) of right lower extremity: (8) Chronic kidney disease (CKD), stage III (moderate): (9) Hyperparathyroidism: (10) Chronic anticoagulation: (11) Pulmonary emboli: Plan: This is an 86 yr old F who has a significant PMH of CAD, Chronic HFpEF, PAF, TBS s/p PPM, MARTI on nocturnal O2, Moderate MR, hx of PE and RLE DVT, HTN, HLD, hyperparathyroidism, GERD, pernicious anemia, CHELSIE, Depression, hx of colon ca s/p R hemicolectomy who presents to ED after sustaining a fall. Fall Right Foot Metatarsal Fracture x 5 Metatarsal Ambulatory Dysfunction Admit to med surg with tele Ortho consult for boot/stabilizing shoe - per report pt can WBAT, no plans for surgical intervention PT/OT consults pending to determine dispo, pt states she already has home therapy Pain control with prn tramadol, bowel regimen CT head and neck is negative for acute findings Xray foot Right reviewed showing all five metatarsal fractures present. Await formal ortho consultation CAD s/p PCI to LAD in 2004 Chronic Combined systolic and diastolic CHF Nonischemic cardiomyopathy, moderate-severe TR HTN Follows with cardiology and nephrology torsemide 15 Mg QAM Last echo 08/11/23 moderate concentric LVH, septal motion abn 2/2 pacer, borderline diffuse hypokinesis, LVEF 45-49%, Grade III DD, left atrium severely enlarged, mild aortic valve sclerosis present, mild aortic valve regurg, mod- severe mitral regurg, mod TR daily weight, strict I and O continue torsemide, statin, metoprolol, potassium/mag supplement her blood pressure is stable and pt is euvolemic, no evidence of decompensation previously documented Permanent atrial fibrillation Pacemaker implanted rate controlled. Continue home meds: Toprol 100 twice daily. Digoxin Tuesday. Continue low dose eliquis for anticoagulation Hx of spontaneous retroperitoneal hematoma on wafarin 08/2023 hospitalized at [facility], no trauma, attempted IR embolization but no active extravasation repeat imaging showed resolving hematoma and therefore pt started on low dose eliquis close monitoring for bleeding Hx of Iron def/Pernicious Anemia hgb stable, monitor Hx of DVT/PE likely provoked in 2021 due to hemicolectomy in setting of malignancy on eliquis CKD-3b follows nephrology Dr. Butler hx of ATN in past, baseline Cr 1.4-1.7 monitor renal fxn and avoid nephrotoxic agents Hyperparathyroidism 2/2 R parathyroid adenoma s/p excision 2008 Continue to monitor calcium, she follows [facility] Hx of Colon cx diagnosed in 2021 s/o hemicolectomy, no chemotherapy warranted, stable in remission currently DVT ppx:, Eliquis FULL CODE Dispo: await PT/OT recs, she is otherwise medically stable for discharge A total of 55 minutes were spent with greater than 50% of that time face to face with the patient, personally reviewing all current laboratories, imaging studies, past medication reconciliation, outpatient chart review, and discussion with specialists to collaborate care for the patient with attending. Please see attending documentation for corrections and/or additions. Admission and Anticipated Discharge Date Admission Date: November 28, 2023 Supervising Physician Co-Signing Physician Notes I have seen and discussed the case with the collaborating advanced practitioner. I agree with the above PN. I have reviewed and confirmed the patients medical history, the findings on physical examination, and the patients diagnosis and treatment plan with Sterling BUI and agree with the information documented. Patient overall stable with stable chronic medical conditions. Pending PT/OT. I spent a total of 5 minutes coordinating, documenting, and providing care for this patient excluding time spent in the performance of separately billed services. All of the aforementioned completed outside of collaborating with the assigned advanced practitioner for a full treatment plan. I have reviewed the advanced practitioner's documentation, and I agree with, and take responsibility for the plan of care Subjective THEO States she lives alone in 1 story apt and walks with a walker. She was receiving therapy at home. She wears O2 at night chronically. She had pain this morning, but that was improved with meds. She is hoping she can go home soon. Review of Systems Review of Systems: All systems reviewed & are unremarkable except as noted in HPI & below Physical Exam Physical Exam: Gen: WD/WN, NAD, A&O x3 HEENT: Normocephalic, atraumatic, conjunctivae moist, sclerae anicteric, mucous membranes moist. Lung: Clear to Auscultation bilaterally, no wheezes/rales/rhonchi Heart: IRR/IRR, no murmurs, rubs, or gallops Abdomen: Soft, NT, ND +BS x 4 Extremities: No edema, RLE compression wrap in place Skin: Warm, no rash, negative turgor. Results & Data Results & Data Vital Signs (Past 12 Hours) Vital Signs Temp Pulse Pulse Resp BP Pulse Ox O2 Del Method 11/29/23 11:28 36.6 C 61 16 133/61 92 Room Air 11/29/23 09:30 Room Air 11/29/23 07:40 36.6 C 62 16 150/82 H 97 Nasal Cannula 11/29/23 07:25 61 11/29/23 03:26 36.8 C 44 L 16 146/80 H 98 Nasal Cannula O2 Flow Rate 11/29/23 11:28 11/29/23 09:30 11/29/23 07:40 2 11/29/23 07:25 11/29/23 03:26 2 Medications Administered Current Inpatient Medications Acetaminophen (Acetaminophen 500 Mg Tab) 1,000 mg PO Q8H ILIANA Stop: 12/28/23 19:59 Last Admin: 11/29/23 04:12 Dose: 1,000 mg Apixaban (Apixaban 2.5 Mg Tab) 2.5 mg PO BID ILIANA Stop: 12/28/23 20:59 Last Admin: 11/29/23 09:46 Dose: 2.5 mg Atorvastatin Calcium (Atorvastatin 40 Mg Tab) 40 mg PO HS ILIANA Stop: 12/28/23 20:59 Last Admin: 11/28/23 22:14 Dose: 40 mg Cyanocobalamin (Cyanocobalamin (B-12) 500 Mcg Tablet) 1,000 mcg PO MoWeFr@0900 ILIANA Stop: 12/28/23 19:34 Last Admin: 11/28/23 22:13 Dose: 1,000 mcg Digoxin (Digoxin 0.125 Mg Tab) 0.125 mg PO MoWeFr@1600 ILIANA Stop: 12/28/23 15:59 Last Admin: 11/28/23 16:39 Dose: 0.125 mg Duloxetine HCl (Duloxetine Hcl 30 Mg Cap) 30 mg PO QAM ILIANA Stop: 12/29/23 08:59 Last Admin: 11/29/23 09:47 Dose: 30 mg Latanoprost (Latanoprost 0.005% Op Soln 2.5 Ml Btl) 1 drops OPB HS [facility] Stop: 12/28/23 20:59 Last Admin: 11/28/23 22:14 Dose: 1 drops Metoprolol Succinate (Metoprolol Succ 50mg Ext Rel Tab) 100 mg PO BID [facility] Stop: 12/28/23 20:59 Last Admin: 11/29/23 09:46 Dose: 100 mg Miscellaneous (Magnesium Chloride ~ Order Awaiting Action) 1 each N/A QS [facility] Stop: 12/29/23 00:00 Last Admin: 11/29/23 09:47 Dose: Not Given Ondansetron HCl (Ondansetron Inj 2 Mg/Ml 2 Ml Vial) 4 mg IV Q4H PRN PRN Reason: Nausea And Vomiting Stop: 12/28/23 19:47 Pantoprazole Sodium (Pantoprazole 40 Mg Tab) [facility] Stop: 12/29/23 08:59 Last Admin: 11/29/23 09:47 Dose: 40 mg Polyethylene Glycol (Polyethylene (Miralax) 17 Gm Pack) 17 gm PO DAILY PRN PRN Reason: Constipation Stop: 12/28/23 15:36 Potassium Chloride (Potassium Chloride 10 Meq Tabcr) 10 meq PO DAILY [facility] Stop: 12/29/23 08:59 Last Admin: 11/29/23 09:51 Dose: 10 meq Senna/Docusate Sodium (Docusate Sodium/Senna 50/8.6mg Tab) 1 tab PO BID [facility] Stop: 12/29/23 20:59 Torsemide (Torsemide 10 Mg Tab) 15 mg PO QAM [facility] Stop: 12/29/23 08:59 Last Admin: 11/29/23 09:46 Dose: 15 mg Tramadol HCl (Tramadol Hcl 50 Mg Tablet) 25 - 50 mg PO Q4H PRN PRN Reason: Pain Stop: 12/29/23 04:53 Last Admin: 11/29/23 12:27 Dose: 50 mg Vitamin D (Cholecalciferol 25 Mcg (1000 Units) Tab) 50 mcg PO QAM [facility] Stop: 12/29/23 08:59 Last Admin: 11/29/23 09:46 Dose: 50 mcg (7) Deep vein thrombosis (DVT) of right lower extremity Affected thrombotic vein of extremity: unspecified vein of extremity Chronici ty: acute Qualified Code(s): I82.401 - Acute embolism and thrombosis of unspecified deep veins of right lower extremity
--- NOTE | 2023-11-29 16:12 | Orthopedic Consultation ---
Date of Service November 29, 2023 Assessment & Plan (1) Fracture of metatarsal of right foot, closed: She has multiple metatarsal fractures. Xray reviewed by Dr. Mckenzie. Recommend conservative treatment. Boot for weight bearing x 1 month. okay to remove the boot at rest. Should have something for compression (ciara stocking or yanet wrap), ice, elevate right foot. Follow up as outpatient with ortho in about 1 month. History of Present Illness Reason for Consultation: . Requesting Physician: . Attending Physician: Lena Walden MD .Miranda is a 88 year old patient admitted yesterday with right foot multiple metatarsal fractures. She lives alone. She was walking at home when her knees gave out and she fell, injuring her foot. She did get a low tide walking boot. Her knees have some bruising but she feels they are okay. Has h/o knee arthritis. Allergies Allergy/AdvReac Type Severity Reaction Status Date / Time amiodarone Allergy Severe shortness Verified 12/09/22 10:17 of breath Iodinated Contrast Media Allergy Severe Wheezing Verified 12/09/22 10:17 Thiazides Allergy Severe wheezing Verified 12/09/22 10:17 alendronate sodium Allergy Intermediate Wheezing, Verified 12/09/22 10:17 shortness of breath. ibandronate sodium Allergy Intermediate trouble Verified 12/09/22 10:17 [From Maria Fernanda] swallowing red dye Allergy Intermediate Hives Verified 12/09/22 10:17 simvastatin Allergy Intermediate Muscle Verified 12/09/22 10:17 pain. doxycycline Allergy Mild GI side Verified 11/29/23 14:01 effects morphine AdvReac Severe Confusion Verified 12/09/22 10:17 ezetimibe AdvReac Intermediate Muscle Verified 12/09/22 10:17 pain. erythromycin base AdvReac Mild Nausea Verified 12/09/22 10:17 metoprolol AdvReac Unknown must be Verified 12/09/22 10:18 caraco brand Home Medications Medication Instructions Recorded Confirmed Type cyanocobalamin (vitamin B-12) 1,000 mcg PO 3XWK 01/13/21 11/28/23 History 1,000 mcg tablet (Vitamin B-12) latanoprost (PF) 0.005 % eye drops 1 drp OPB HS 01/13/21 11/28/23 History lorazepam 0.5 mg tablet 0.5 mg PO TID PRN Anxiety 05/21/21 11/28/23 History Oxygen Home 06/18/21 11/28/23 History acetaminophen 500 mg tablet 500 mg PO QID PRN Pain 06/18/21 11/28/23 History (Tylenol Extra Strength) denosumab 60 mg/mL subcutaneous 60 mg subcut UD 06/18/21 11/28/23 History syringe (Prolia) cholecalciferol (vitamin D3) 25 25 mcg PO QAM 06/16/22 11/28/23 History mcg (1,000 unit) capsule (Vitamin D3) duloxetine 30 mg capsule,delayed 30 mg PO QAM 06/16/22 11/28/23 History release metoprolol succinate 100 mg 100 mg PO BID 06/16/22 11/28/23 History tablet,extended release 24 hr omeprazole 20 mg capsule,delayed 20 mg PO QAM 06/16/22 11/28/23 History release atorvastatin 40 mg tablet 40 mg PO HS 12/01/22 11/28/23 History sennosides 8.6 mg-docusate sodium 2 tab-cap PO HS PRN Constipation 05/27/23 11/28/23 History 50 mg capsule (Senna Plus) digoxin 125 mcg (0.125 mg) tablet 0.125 mg PO MoWeFr@0900 #30 tabs 06/16/23 11/28/23 Rx (Digitek) magnesium chloride 70 mg 70 mg PO DAILY #10 tabs 06/16/23 11/28/23 Rx (magnesium chloride) tablet,delayed release apixaban 2.5 mg tablet (Eliquis) 2.5 mg PO BID 11/28/23 11/28/23 History potassium chloride 20 mEq 10 meq PO DAILY 11/28/23 11/28/23 History tablet,extended release sulfamethoxazole 800 1 tab PO BID 11/28/23 11/28/23 History mg-trimethoprim 160 mg tablet torsemide 20 mg tablet 15 mg PO QAM 11/28/23 11/28/23 History Past Med/Surg History Problem List Ambulatory dysfunction (Acute) Fracture of metatarsal of right foot, closed (Acute) Fall from standing (Acute) Hyponatremia VINITA (acute kidney injury) Hypomagnesemia (Acute) Hypoxia (Acute) MARTI (obstructive sleep apnea) Electrolyte and fluid disorder H/O colectomy Weakness (Acute) Abdominal wall hematoma (Acute) 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) Permanent atrial fibrillation (Acute) Subtherapeutic anticoagulation Chronic combined systolic and diastolic heart failure Encounter for pre-operative examination Anemia (Acute) Deep vein thrombosis (DVT) of right lower extremity (Acute) s/p hemicolectomy 04/27/21 Abnormal nuclear stress test Normal cardic catheterization in Mar 2020 Allergy to iodinated contrast 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 Butler Paroxysmal atrial fibrillation Chronic diastolic heart failure Medical History Hx of basal cell carcinoma Superficial thrombophlebitis posterior right knee - monitoring with PCP currently. History of ganglion cyst NSVT (nonsustained ventricular tachycardia) pt unsure of details C. difficile diarrhea s/p hemicolectomy 04/2021 - no problems since. Chronic anticoagulation Pulmonary emboli pt denies -> states only had a DVT Venous insufficiency Closed fracture of facial bone Mitral valve disease Degenerative disc disease, lumbar Osteoporosis Frequent falls last fall>a couple months ago, using cane Osteoarthritis GERD (gastroesophageal reflux disease) Glaucoma Myocardial Infarction (~2005) follows with Poli Zepeda PA-C @ [facility] [address]>2004 or 2005? Cardiac murmur History of COVID-19 diagnosed 02/2020 @ [facility]--fever, headache, cough, loss of taste/smell--no issues now Surgical History H/O colonoscopy with polypectomy H/O vein stripping Left leg History of esophagogastroduodenoscopy (EGD) Status post subtotal parathyroidectomy 2008 R inferior adenoma History of partial hysterectomy History of dilatation and curettage History of facial surgery metal plate under left eye/left cheek S/P excision of lipoma History of arthroscopy of left knee History of colonoscopy History of tooth extraction all teeth History of parathyroidectomy partial @ [facility] History of bilateral cataract extraction History of cardiac cath 2005 with 1 stent placed @ [facility] Family History Mother , 66yo Lymphoma Father Medical history unknown Brother Accident Brother Lung cancer Smoker Diabetes Hypertension Sister Heart disease Heart surgery Sister No problems noted. Sister Endometrial cancer Thyroid disease Sister Overdose Son COPD (chronic obstructive pulmonary disease) Diabetes Myocardial infarction Hypertension Son No problems noted. Son Throat cancer Hypertension Daughter Atrial fibrillation Daughter No problems noted. 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 Physical Exam .alert and oriented. NAD She has obvious swelling and ecchymosis of the right foot. Tender in the midfoot. No ankle tenderness. She can dorsiflex/plantarflex/move toes appropriately. NVI. Able to do straight leg raise bilaterally. Results & Data Results & Data Laboratory Results . Diagnostic Findings .xrays of the right foot show fractures of the 1st-5th metatarsals. PG Care Time/CCT Total # of Minutes Spent Total Time Spent with Patient: Total time spent is greater than 50% in coordination of care (as documented) at patient's floor/unit and/or counseling patient: Coding Level of Care Code 74353 IN/OBS CONSULT LVL 3,45M Diagnoses Fracture of metatarsal of right foot, closed S92.301A
[2023-11-29] MEDS: DOCUSATE SODIUM/SENNA 50/8.6MG TAB PO SCH (20:31)
[2023-11-30 07:12] LABS: BUN Creatinine Ratio 20.4 (10-20); Calcium 10.6 mg/dl (8.6-10.3); Creatinine Clr Calc Pharmacy 28.1 ml/min; Est GFR (African American) 34.2 ml/min; Est GFR (Non-African American) 29.5 ml/min; Magnesium 1.7 mg/dl (1.7-2.4); Potassium 4.5 mmol/L (3.5-5.1)
[2023-11-30 07:19] LABS: Hematocrit (blood only) 36.6 % (37.0-47.0); Hemoglobin 11.9 g/dl (12.0-16.0); Mean Corpuscular Hemoglobin 31.4 pg (25.0-34.0); Mean Corpuscular Hgb Conc 32.5 g/dL (32.0-36.0); Mean Corpuscular Volume 96.6 fL (80.0-100.0); Mean Platelet Volume 9.3 fL (9.4-12.4); Platelet Count 164 K/uL (130-400); RDW Coefficient of Variation 13.7 % (11.5-14.5); RDW Standard Deviation 49.2 fL (36.4-46.3); Red Blood Count 3.79 M/uL (4.20-5.40); White Blood Count 7.17 K/ul (4.8-10.8)
[2023-11-30] MEDS: POLYETHYLENE (MIRALAX) 17 GM PACK PO PRN (08:36)
[2023-11-30] MEDS ORDERED: INFLUENZA VACC TS2024-25(65y+)/PF (IIV3) 0.5mL Syr IM ONE (09:54)
--- NOTE | 2023-11-30 10:13 | Hospitalist Progress Note ---
Date of Service November 30, 2023 Assessment & Plan (1) Ambulatory dysfunction: (2) Fracture of metatarsal of right foot, closed: (3) Fall from standing: (4) Chronic combined systolic and diastolic heart failure: (5) Permanent atrial fibrillation: (6) Colon adenocarcinoma: (7) Deep vein thrombosis (DVT) of right lower extremity: (8) Chronic kidney disease (CKD), stage III (moderate): (9) Hyperparathyroidism: (10) Chronic anticoagulation: (11) Pulmonary emboli: Plan: This is an 86 yr old F who has a significant PMH of CAD, Chronic HFpEF, PAF, TBS s/p PPM, MARTI on nocturnal O2, Moderate MR, hx of PE and RLE DVT, HTN, HLD, hyperparathyroidism, GERD, pernicious anemia, CHELSIE, Depression, hx of colon ca s/p R hemicolectomy who presents to ED after sustaining a fall. Fall Right Foot Metatarsal Fracture x 5 Metatarsal Ambulatory Dysfunction Admit to med surg with tele Ortho consult for boot/stabilizing shoe - per report pt can WBAT, no plans for surgical intervention PT/OT consults pending to determine dispo, pt states she already has home therapy Pain control with prn tramadol, bowel regimen CT head and neck is negative for acute findings Xray foot Right reviewed showing all five metatarsal fractures present. Ortho recommends boot for NWB x 1 month, ok to remove boot at rest, compression, ICE and elevate. She will need orthopedic f/u in 1 month Medically stable await dispo planning CAD s/p PCI to LAD in 2004 Chronic Combined systolic and diastolic CHF Nonischemic cardiomyopathy, moderate-severe TR HTN Follows with cardiology and nephrology torsemide 15 Mg QAM Last echo 08/11/23 moderate concentric LVH, septal motion abn 2/2 pacer, borderline diffuse hypokinesis, LVEF 45-49%, Grade III DD, left atrium severely enlarged, mild aortic valve sclerosis present, mild aortic valve regurg, mod- severe mitral regurg, mod TR daily weight, strict I and O continue torsemide, statin, metoprolol, potassium/mag supplement her blood pressure is stable and pt is euvolemic, no evidence of decompensation previously documented Permanent atrial fibrillation Pacemaker implanted rate controlled. Continue home meds: Toprol 100 twice daily. Digoxin Tuesday. Continue low dose eliquis for anticoagulation Hx of spontaneous retroperitoneal hematoma on wain 08/2023 hospitalized at [facility] [place], no trauma, attempted IR embolization but no active extravasation repeat imaging showed resolving hematoma and therefore pt started on low dose eliquis close monitoring for bleeding Hx of Iron def/Pernicious Anemia hgb stable, monitor Hx of DVT/PE likely provoked in 2021 due to hemicolectomy in setting of malignancy on eliquis CKD-3b follows nephrology Dr. Butler, cr stable hx of ATN in past, baseline Cr 1.4-1.7 monitor renal fxn and avoid nephrotoxic agents Hyperparathyroidism 2/2 R parathyroid adenoma s/p excision 2008 Continue to monitor calcium, will need PCP follow up Place vitamin D supplement on hold Hx of Colon cx diagnosed in 2021 s/o hemicolectomy, no chemotherapy warranted, stable in remission currently PCP: Dr. Wilburn DVT ppx:, Eliquis FULL CODE Dispo: PT recommending rehab, pt wishing her daughter could come stay with her from [place], she is exploring this option vs rehab, defer to CM for dispo planning. Pt is medically stable for discharge, will downgrade to med/surg A total of 46 minutes were spent with greater than 50% of that time face to face with the patient, personally reviewing all current laboratories, imaging studies, past medication reconciliation, outpatient chart review, and discussion with specialists to collaborate care for the patient with attending. Please see attending documentation for corrections and/or additions. Admission and Anticipated Discharge Date Admission Date: November 28, 2023 Supervising Physician Co-Signing Physician Notes I have seen and discussed the case with the collaborating advanced practitioner. I agree with the above plan. I have reviewed and confirmed the patients medical history, the findings on physical examination, and the patients diagnosis and treatment plan with Sterling BUI and agree with the information documented. Patient overall stable with stable chronic medical conditions. PT/OT recommending rehab, pt exploring her options. I spent a total of 25 minutes coordinating, documenting, and providing care for this patient excluding time spent in the performance of separately billed services. All of the aforementioned completed outside of collaborating with the assigned advanced practitioner for a full treatment plan. I have reviewed the advanced practitioner's documentation, and I agree with, and take responsibility for the plan of care Subjective NAEO She continues to have pain. She is hopeful she can go home. She talked to her daughter who lives in [place] and is hopeful she could come stay with her. She feels nauseated this morning, but states it is getting better. She thinks its the pain meds. Denies f/c/s, chest pain, sob, abd pain. Review of Systems Review of Systems: All systems reviewed & are unremarkable except as noted in HPI & below Physical Exam Physical Exam: Gen: WD/WN, NAD, A&O x3 HEENT: Normocephalic, atraumatic, conjunctivae moist, sclerae anicteric, mucous membranes moist. Lung: Clear to Auscultation bilaterally, no wheezes/rales/rhonchi Heart: IRR/IRR, no murmurs, rubs, or gallops Abdomen: Soft, NT, ND +BS x 4 Extremities: ecchymosis to R dorsal foot, mild edema, RLE compression wrap in place Skin: Warm, no rash, negative turgor. Results & Data Results & Data Vital Signs (Past 12 Hours) Vital Signs Temp Pulse Pulse Resp BP Pulse Ox O2 Del Method 11/30/23 07:34 36.8 C 63 16 157/81 H 97 Nasal Cannula 11/30/23 07:21 72 11/30/23 03:34 36.6 C 72 20 172/82 H 90 Nasal Cannula 11/29/23 23:59 37.1 C 81 20 167/82 H 95 Nasal Cannula O2 Flow Rate 11/30/23 07:34 2 11/30/23 07:21 11/30/23 03:34 2 11/29/23 23:59 2 Diagnostic Findings Foot X-Ray 11/28/23 10:14 XR foot RT min 3V routine CLINICAL HISTORY: Foot trauma, no prior imaging TECHNIQUE: 3 views of the right foot were obtained. Comparison: None available at the time of this dictation. FINDINGS: Acute fractures are seen at the base of the metatarsals. The fourth and fifth metatarsal fractures appear comminuted. Bones are demineralized. Degenerative changes are seen. Soft tissue swelling is seen about the foot. IMPRESSION: Fractures throughout the bases of all 5 metatarsals, some of which appear comminuted. Lisfranc injury cannot be entirely excluded within the limits of radiographic examination. ACT 112: Negative or not required by law. Electronically signed by: Brian Lynn M.D. 11/28/2023 10:25 AM Chest X-Ray 11/28/23 10:32 XR chest 1V portable CLINICAL HISTORY: trauma TECHNIQUE: Single frontal radiograph of the chest was obtained. Comparison: Comparison is made to chest radiograph 06/14/2023 FINDINGS: An implanted pacemaker is seen. Calcified aortic knob is seen. The lungs are clear. No evidence of pleural effusion or pneumothorax. IMPRESSION: No acute chest disease. ACT 112: Negative or not required by law. Electronically signed by: Brian Lynn M.D. 11/28/2023 11:[address] 11/28/23 10:43 CT cervical spine wo con CT DOSE: 1034.47 mGy.cm CLINICAL HISTORY: 88 years-old Female with fall from standing; on eliquis. Acute neck pain status post trauma COMPARISON: Head CT of same day TECHNIQUE: Multiple axial CT images of the cervical spine were obtained without contrast. A dose lowering technique was utilized adhering to the principles of ALARA. FINDINGS: Demineralized appearance of the bones. Moderate to advanced multilevel intervertebral disc space narrowing, spondylitic spurring and facet arthrosis. Subcentimeter sclerotic focus involving the spinous process of C2 suggestive of a probable bone island. Partially calcified pannus posterior to the dens. The cervical soft tissues appear unremarkable. Mosaic attenuation with groundglass densities of the lung apices suggestive of atelectasis with air trapping. Partially imaged left subclavian leads. IMPRESSION: No acute cervical spine fracture or subluxation identified. ACT 112: Negative or not required by law. The above report was generated using voice recognition software. It may contain grammatical, syntax or spelling errors. Electronically signed by: Jose Cody M.D. 11/28/2023 11:[address] 11/28/23 10:43 CT OF THE HEAD WITHOUT CONTRAST CLINICAL HISTORY: fall from standing; on eliquis COMPARISON STUDY: Head CT June 05, 2023. TECHNIQUE: Helical axial images of the head were obtained without IV contrast. Automated exposure control was utilized for the study. A dose lowering technique was utilized adhering to the principles of ALARA. FINDINGS: No acute intracranial hemorrhage, midline shift or mass effect is present. The ventricular system is unremarkable. The basal cisterns are patent. White matter hypodensities are unchanged and favor small vessel disease. No extra-axial collections are present. There are no findings to suggest acute dural sinus thrombosis or acute territorial infarct. There are no calvarial fractures. Left orbital internal fixations are intact. IMPRESSION: 1. No acute intracranial findings. 2. No calvarial fractures. ACT 112: Negative or not required by law. Electronically signed by: Ramon Don M.D. 11/28/2023 11:37 AM Medications Administered Current Inpatient Medications Acetaminophen (Acetaminophen 500 Mg Tab) 1,000 mg PO Q8H ILIANA Stop: 12/28/23 19:59 Last Admin: 11/30/23 04:46 Dose: 1,000 mg Apixaban (Apixaban 2.5 Mg Tab) 2.5 mg PO BID ILIANA Stop: 12/28/23 20:59 Last Admin: 11/30/23 08:37 Dose: 2.5 mg Atorvastatin Calcium (Atorvastatin 40 Mg Tab) 40 mg PO HS ILIANA Stop: 12/28/23 20:59 Last Admin: 11/29/23 20:31 Dose: 40 mg Cyanocobalamin (Cyanocobalamin (B-12) 500 Mcg Tablet) 1,000 mcg PO MoWeFr@0900 [facility] Stop: 12/28/23 19:34 Last Admin: 11/30/23 08:38 Dose: 1,000 mcg Digoxin (Digoxin 0.125 Mg Tab) 0.125 mg PO MoWeFr@1600 [facility] Stop: 12/28/23 15:59 Last Admin: 11/28/23 16:39 Dose: 0.125 mg Duloxetine HCl (Duloxetine Hcl 30 Mg Cap) 30 mg PO QAM ILIANA Stop: 12/29/23 08:59 Last Admin: 11/30/23 08:38 Dose: 30 mg Latanoprost (Latanoprost 0.005% Op Soln 2.5 Ml Btl) 1 drops OPB HS ILIANA Stop: 12/28/23 20:59 Last Admin: 11/29/23 20:31 Dose: 1 drops Metoprolol Succinate (Metoprolol Succ 50mg Ext Rel Tab) 100 mg PO BID ILIANA Stop: 12/28/23 20:59 Last Admin: 11/30/23 08:37 Dose: 100 mg Ondansetron HCl (Ondansetron Inj 2 Mg/Ml 2 Ml Vial) 4 mg IV Q4H PRN PRN Reason: Nausea And Vomiting Stop: 12/28/23 19:47 Pantoprazole Sodium (Pantoprazole 40 Mg Tab) 40 mg PO QAM [facility]; Protocol Stop: 12/29/23 08:59 Last Admin: 11/30/23 08:38 Dose: 40 mg Polyethylene Glycol (Polyethylene (Miralax) 17 Gm Pack) 17 gm PO DAILY PRN PRN Reason: Constipation Stop: 12/28/23 15:36 Last Admin: 11/30/23 08:36 Dose: 17 gm Potassium Chloride (Potassium Chloride 10 Meq Tabcr) 10 meq PO DAILY [facility] Stop: 12/29/23 08:59 Last Admin: 11/30/23 08:38 Dose: 10 meq Senna/Docusate Sodium (Docusate Sodium/Senna 50/8.6mg Tab) 1 tab PO BID [facility] Stop: 12/29/23 20:59 Last Admin: 11/30/23 08:38 Dose: 1 tab Torsemide (Torsemide 10 Mg Tab) 15 mg PO QAM [facility] Stop: 12/29/23 08:59 Last Admin: 11/30/23 08:36 Dose: 15 mg Tramadol HCl (Tramadol Hcl 50 Mg Tablet) 25 - 50 mg PO Q4H PRN PRN Reason: Pain Stop: 12/29/23 04:53 Last Admin: 11/29/23 23:38 Dose: 50 mg Vitamin D (Cholecalciferol 25 Mcg (1000 Units) Tab) 50 mcg PO QAM [facility] Stop: 12/29/23 08:59 Last Admin: 11/30/23 08:37 Dose: 50 mcg (7) Deep vein thrombosis (DVT) of right lower extremity Affected thrombotic vein of extremity: unspecified vein of extremity Chronicity: acute Qualified Code(s): I82.401 - Acute embolism and thrombosis of unspecified deep veins of right lower extremity
[2023-12-01] MEDS ORDERED: Nursing to Pharmacy Communication SCH (01:30)
[2023-12-01 07:06] LABS: Hemoglobin 12.2 g/dl (12.0-16.0); Mean Corpuscular Hemoglobin 31.1 pg (25.0-34.0); Mean Corpuscular Hgb Conc 31.3 g/dL (32.0-36.0); Mean Corpuscular Volume 99.5 fL (80.0-100.0); Mean Platelet Volume 9.1 fL (9.4-12.4); Platelet Count 154 K/uL (130-400); RDW Coefficient of Variation 13.8 % (11.5-14.5); RDW Standard Deviation 50.7 fL (36.4-46.3); Red Blood Count 3.92 M/uL (4.20-5.40); White Blood Count 7.53 K/ul (4.8-10.8)
[2023-12-01 07:20] LABS: BUN Creatinine Ratio 22.6 (10-20); Calcium 10.6 mg/dl (8.6-10.3); Creatinine Clr Calc Pharmacy 26.2 ml/min; Potassium 4.5 mmol/L (3.5-5.1)
--- NOTE | 2023-12-01 11:22 | Hospitalist Progress Note ---
Date of Service December 01, 2023 Assessment & Plan (1) Fall from standing: (2) Fracture of metatarsal of right foot, closed: (3) Ambulatory dysfunction: Plan Miranda Coe is an 86y/o F with PMHx significant for CAD, chronic HFpEF, PAF, TBS s/p PPM, MARTI on 2L nocturnal O2, moderate MR, history of PE and RLE DVT, HTN, HLD, hyperparathyroidism, GERD, pernicious anemia, CHELSIE, depression and history of colon cancer s/p right hemicolectomy who presented to the ED for evaluation on 11/28/23 after sustaining a fall and was found to have multiple metatarsal fractures in her right foot. , 12/01/23 Waiting to hear back on referral request at [facility]. Patient medically stable for discharge once rehabilitation placement is obtained. Multiple Right Foot Metatarsal Fractures S/P Fall & Ambulatory Dysfunction: Admitting R foot XR with fractures throughout the bases of all 5 metatarsals, some of which appear comminuted. All other imaging (including CXR, cervical spine CT and head CT) were negative. Ortho was consulted and recommended conservative treatment with the following suggestions --> boot for weightbearing x 1 month, compression (NICOLAS stocking or ELGIN wrap), ice and right foot elevation. Will need a follow-up with ortho as an outpatient in approximately 1 month. Continue pain and bowel regimens. PT/OT recommending SNF rehabilitation placeme nt. CM working to get patient placement at [facility], referral pending. Nonischemic Cardiomyopathy, Moderate-Severe TR & HTN CAD S/P PCI to LAD [2005], Chronic Combined Systolic and Diastolic CHF: Patient follows with [facility]. Most recent echocardiogram performed 08/11/2023 --> moderately increased concentric LV wall thickness, abnormal septal motion consistent with RV pacemaker, borderline diffuse LV hypokinesis, LVEF=45-49% (mildly reduced), grade III diastolic dysfunction, severely enlarged left atrium, mild aortic valve sclerosis, mild aortic valve regurgitation, moderate to severe mitral regurgitation and moderate tricuspid regurgitation. Weight has remained stable, continue strict I's and O's. Continue torsemide, statin, metoprolol and potassium/mag supplementation. Permanent Afib S/P Pacemaker Placement: Rate-controlled. Continue home meds inc luding Toprol 100mg BID and digoxin on //. Continue low dose Eliquis for anticoagulation. H/O Spontaneous Retroperitoneal Hematoma [Previously on Warfarin, 08/2023]: Hospitalized at [facility] [place], no trauma, attempted IR embolization but no active extravasation. Repeat imaging showed resolving hematoma and therefore patient was started on low dose Eliquis. Close monitoring for bleeding. H/O Iron Deficiency/Pernicious Anemia: Hgb stable today, continue to monitor with daily AM labs. H/O DVT & PE: Likely provoked in 2021 due to hemicolectomy in setting of malignancy, on Eliquis - continue. CKD Stage III: Patient follows with [facility] [[facility]]. Cr stable at 1.68 today, baseline Cr ~1.4-1.7 per chart review. Avoid nephrotoxic meds when able and continue to monitor renal function closely. Hyperparathyroidism 2/2 Right Parathyroid Adenoma S/P Excision [2008]: Continue to monitor calcium, will need PCP follow-up. Vitamin D supplementation on hold. H/O Colon Cancer [2021]: S/p right hemicolectomy, no chemotherapy warranted. Stable in remission currently. DVT Prophylaxis: On Eliquis [employer]IST - continue. Code Status: FULL CODE PCP: Cathy Wilburn MD Disposition: Admitted in Med/Surg - Waiting to hear back from regarding referral placed to [facility]. Patient is medically stable for discharge when a rehabilitation placement becomes available. Patient seen in collaboration with Dr. Kelly. Please see addendum. I spent a total of 45 minutes coordinating, documenting, and providing care for this patient excluding time spent in the performance of separately billed services. This included personally reviewing all current laboratories and imaging studies, medical reconciliation, outpatient chart review and discussion with specialists. This chart was completed in part utilizing Speech Voice Recognition Software. Grammatical errors, random word insertions, pronoun errors, and incomplete sentences are an occasional consequence of this system due to software limitations, ambient noise, and hardware issues. Any formal questions or concerns about the content, text, or information contained within the body of th is dictation should be directly addressed to the provider for clarification. Admission and Anticipated Discharge Date Admission Date: November 28, 2023 Supervising Physician Co-Signing Physician Notes I have seen and discussed the case with the collaborating advanced practitioner. I agree with the above plan. I have reviewed and confirmed the patients medical history, the findings on physical examination, and the patients diagnosis and treatment plan with Leana BUI and agree with the information documented. Patient overall stable with stable chronic medical conditions. PT/OT recommending rehab, pt exploring her options. So far agreeable to rehab. I spent a total of 15 minutes coordinating, documenting, and providing care for this patient excluding time spent in the performance of separately billed services. All of the aforementioned completed outside of collaborating with the assigned advanced practitioner for a full treatment plan. I have reviewed the advanced practitioner's documentation, and I agree with, and take responsibility for the plan of care Subjective Patient with good pain control this morning. Tolerated her breakfast without iss ue. Denies any chest pain, SOB, abdominal pain or N/V. Patient understands she would benefit from a rehabilitation stay. Still waiting to hear back from [facility]. Review of Systems Review of Systems: At least ten systems reviewed and negative, except as noted in the subjective section. Physical Exam Physical Exam: General: WD/WN, vitals as above, NAD, sitting up in bed, pleasant, conversing appropriately. A+Ox3, euthymic affect. HEENT: Normocephalic, atraumatic. PERRL, conjunctivae normal, anicteric sclerae. External ear and nose normal, oropharynx normal. Respiratory: Normal respiratory effort, lungs clear to auscultation, no wheeze, rales, rhonchi. No accessory muscle use. Cardiovascular: Regular rate, rhythm, no murmur, normal peripheral pulses, mild BLE edema. Vessels: No JVD. Abdomen/GI: Normal bowel sounds, soft, nontender, no hepatosplenomegaly. Extremities/Musculoskeletal: R dorsal foot with significant ecchymosis, RLE compression wrap in place. Neurologic: EOMI, no focal deficits, CN's II-XI not formally tested but appear grossly intact bilaterally. Skin: No rashes, normal color, warm/dry. Ecchymosis also noted on both of her knees. Results & Data Results & Data Vital Signs (Past 12 Hours) Vital Signs Temp Pulse Resp BP Pulse Ox O2 Del Method 12/01/23 10:22 Room Air, Nasal Cannula 12/01/23 08:07 36.4 C L 55 L 14 151/78 H 97 Room Air 11/30/23 23:53 37.2 C 75 20 156/71 H 98 Room Air Laboratory Results Short CBC 12/01/23 Range/Units 06:51 WBC 7.53 (4.8-10.8) K/ul Hgb 12.2 (12.0-16.0) g/dl Hct 39.0 (37.0-47.0) % Plt Count 154 (130-400) K/uL BMP 12/01/23 06:51 Sodium 134 L Potassium 4.5 Chloride 102 Carbon Dioxide 28 BUN 38 H Creatinine 1.68 H Glucose 105 H Calcium 10.6 H (1) Fall from standing Encounter type: initial encounter Qualified Code(s): W19.XXXA - Unspecified fall, initial encounter (2) Fracture of metatarsal of right foot, closed Encounter type: initial encounter Metatarsal bone: unspecified metatarsal Physeal involvement: unspecified Qualified Code(s): S92.301A - Fracture of unspecified metatarsal bone(s), right foot, initial encounter for closed fracture
[2023-12-02 06:52] LABS: Hematocrit (blood only) 37.4 % (37.0-47.0); Mean Corpuscular Hemoglobin 31.1 pg (25.0-34.0); Mean Corpuscular Hgb Conc 32.1 g/dL (32.0-36.0); Mean Corpuscular Volume 96.9 fL (80.0-100.0); Mean Platelet Volume 9.3 fL (9.4-12.4); Platelet Count 190 K/uL (130-400); RDW Coefficient of Variation 13.7 % (11.5-14.5); RDW Standard Deviation 48.7 fL (36.4-46.3); Red Blood Count 3.86 M/uL (4.20-5.40); White Blood Count 5.58 K/ul (4.8-10.8)
[2023-12-02 07:10] LABS: BUN Creatinine Ratio 22.6 (10-20); Calcium 10.6 mg/dl (8.6-10.3); Magnesium 1.7 mg/dl (1.7-2.4); Phosphorus 3.9 mg/dl (2.5-4.9); Potassium 4.4 mmol/L (3.5-5.1)
--- NOTE | 2023-12-02 12:45 | Hospitalist Progress Note ---
Date of Service December 02, 2023 Assessment & Plan (1) Fall from standing: (2) Fracture of metatarsal of right foot, closed: (3) Ambulatory dysfunction: Plan Miranda Coe is an 86y/o F with PMHx significant for CAD, chronic HFpEF, PAF, TBS s/p PPM, MARTI on 2L nocturnal O2, moderate MR, history of PE and RLE DVT, HTN, HLD, hyperparathyroidism, GERD, pernicious anemia, CHELSIE, depression and history of colon cancer s/p right hemicolectomy who presented to the ED for evaluation on 11/28/23 after sustaining a fall and was found to have multiple metatarsal fractures in her right foot. 12/02/23 No bed is available at [facility] however they would accept the patient if a bed opens up. Patient is now requesting to go home with services. Reports she has seen [facility] services in the past. Spoke with CM via [employer] regarding this. PT/OT are evaluating the patient again today to see if this would be a feasible option for her. Made patient aware that more than likely they will still recommend SNF rehabilitation. OT already evaluated the patient today and they are still recommending SNF rehabilitation. Multiple Right Foot Metatarsal Fractures S/P Fall & Ambulatory Dysfunction: Admitting R foot XR with fractures throughout the bases of all 5 metatarsals, some of which appear comminuted. All other imaging (including CXR, cervical spine CT and head CT) were negative. Ortho was consulted and recommended conservative treatment with the following suggestions --> boot for weightbearing x 1 month, compression (NICOLAS stocking or ELGIN wrap), ice and right foot elevation. Will need a follow-up with ortho as an outpatient in approximately 1 month. Continue pain and bowel regimens. CM working on discharge planning as per above. Nonischemic Cardiomyopathy, Moderate-Severe TR & HTN CAD S/P PCI to LAD [2005], Chronic Combined Systolic and Diastolic CHF: Patient follows with [facility]. Most recent echocardiogram performed 08/11/2023 --> moderately increased concentric LV wall thickness, abnormal septal motion consistent with RV pacemaker, borderline diffuse LV hypokinesis, LVEF=45-49% (mildly reduced), grade III diastolic dysfunction, severely enlarged left atrium, mild aortic valve sclerosis, mild aortic valve regurgitation, moderate to severe mitral regurgitation and moderate tricuspid regurgitation. Weight has remained stable, continue strict I's and O's. Continue statin, metoprolol and potassium/mag supplementation. Hold torsemide for tomorrow given VNIITA. Permanent Afib S/P Pacemaker Placement: Rate-controlled. Continue home meds including Toprol 100mg BID and digoxin on //. Continue low dose Eliquis for anticoagulation. H/O Spontaneous Retroperitoneal Hematoma [Previously on Warfarin, 08/2023]: Hospitalized at [facility] [place], no trauma, attempted IR embolization but no active extravasation. Repeat imaging showed resolving hematoma and therefore patient was started on low dose Eliquis. Close monitoring for bleeding. H/O Iron Deficiency/Pernicious Anemia: Hgb stable today, continue to monitor with daily AM labs. H/O DVT & PE: Likely provoked in 2021 due to hemicolectomy in setting of malignancy, on Eliquis - continue. VINITA on CKD Stage III: Patient follows with [facility] [[place]]. Cr elevated at 1.9 today, baseline Cr ~1.4-1.7 per chart review. Will hold torsemide tomorrow. Encouraged oral intake, repeat labs in AM. Avoid nephrotoxic meds when able and continue to monitor renal function closely. Hyperparathyroidism 2/2 Right Parathyroid Adenoma S/P Excision [2008]: Continue to monitor calcium, will need PCP follow-up. Vitamin D supplementation on hold. H/O Colon Cancer [2021]: S/p right hemicolectomy, no chemotherapy warranted. Stable in remission currently. 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 Code Status: FULL CODE PCP: Cathy Wilburn MD Disposition: Admitted in Med/Surg - Patient is medically stable for discharge when a rehabilitation placement becomes available. Patient seen in collaboration with Dr. Kelly. Please see addendum. I spent a total of 40 minutes coordinating, documenting, and providing care for this patient excluding time spent in the performance of separately billed services. This included personally reviewing all current laboratories and imaging studies, medical reconciliation, outpatient chart review and discussion with specialists. This chart was completed in part utilizing Speech Voice Recognition Software. Grammatical errors, random word insertions, pronoun errors, and incomplete sentences are an occasional consequence of this system due to software limitations, ambient noise, and hardware issues. Any formal questions or concerns about the content, text, or information contained within the body of this dictation should be directly addressed to the provider for clarification. Admission and Anticipated Discharge Date Admission Date: November 28, 2023 Supervising Physician Co-Signing Physician Notes I have seen and discussed the case with the collaborating advanced practitioner. I agree with the above plan. I have reviewed and confirmed the patients medical history, the findings on physical examination, and the patients diagnosis and treatment plan with Leana BUI and agree with the information documented. Patient overall stable with stable chronic medical conditions. PT/OT recommending rehab, pt exploring her options. So far agreeable to rehab. I spent a total of 10 minutes coordinating, documenting, and providing care for this patient excluding time spent in the performance of separately billed se rvices. All of the aforementioned completed outside of collaborating with the assigned advanced practitioner for a full treatment plan. I have reviewed the advanced practitioner's documentation, and I agree with, and take responsibility for the plan of care Subjective Patient with good pain control this morning. Was up sitting in her chair at bedside eating breakfast. Shyam Donohue does not have a bed available for her at this time. Patient reports she has had [facility] services in the past. Informed her that both PT/OT are recommending an inpatient rehabilitation placement at this point. She would like to go home with HH services at this point. Review of Systems Review of Systems: At least ten systems reviewed and negative, except as noted in the subjective section. Physical Exam Physical Exam: General: WD/WN, vitals as above, NAD, sitting up in chair at bedside, pleasant, conversing appropriately. A+Ox3, euthymic affect. HEENT: Normocephalic, atraumatic. PERRL, conjunctivae normal, anicteric sclerae. External ear and nose normal, oropharynx normal. Respiratory: Normal respiratory effort, lungs clear to auscultation, no wheeze, rales, rhonchi. No accessory muscle use. Cardiovascular: Regular rate, rhythm, no murmur, normal peripheral pulses, mild BLE edema. Vessels: No JVD. Abdomen/GI: Normal bowel sounds, soft, nontender, no hepatosplenomegaly. Extremities/Musculoskeletal: R dorsal foot with significant ecchymosis, RLE compression wrap in place. Neurologic: EOMI, no focal deficits, CN's II-XI not formally tested but appear grossly intact bilaterally. Skin: No rashes, normal color, warm/dry. Ecchymosis also noted on both of her knees. Results & Data Results & Data Vital Signs (Past 12 Hours) Vital Signs Temp Pulse Resp BP Pulse Ox O2 Del Method O2 Flow Rate 12/02/23 07:59 36.3 C L 61 18 135/74 93 Nasal Cannula 2 Laboratory Results Short CBC 12/02/23 Range/Units 06:16 WBC 5.58 (4.8-10.8) K/ul Hgb 12.0 (12.0-16.0) g/dl Hct 37.4 (37.0-47.0) % Plt Count 190 (130-400) K/uL BMP 12/02/23 06:16 Sodium 136 Potassium 4.4 Chloride 102 Carbon Dioxide 30 BUN 43 H Creatinine 1.90 H Glucose 94 Calcium 10.6 H (1) Fall from standing Encounter type: initial encounter Qualified Code(s): W19.XXXA - Unspecified fall, initial encounter (2) Fracture of metatarsal of right foot, closed Encounter type: initial encounter Metatarsal bone: unspecified metatarsal Physeal involvement: unspecified Qualified Code(s): S92.301A - Fracture of unspecified metatarsal bone(s), right foot, initial encounter for closed fracture
[2023-12-02] MEDS: oxyCODONE/ACETAMINOPHEN 5mg/325mg TAB PO PRN (15:34)
[2023-12-03 08:04] LABS: Hematocrit (blood only) 39.9 % (37.0-47.0); Hemoglobin 12.6 g/dl (12.0-16.0); Mean Corpuscular Hemoglobin 30.9 pg (25.0-34.0); Mean Corpuscular Hgb Conc 31.6 g/dL (32.0-36.0); Mean Corpuscular Volume 97.8 fL (80.0-100.0); Mean Platelet Volume 9.2 fL (9.4-12.4); Platelet Count 195 K/uL (130-400); RDW Coefficient of Variation 13.6 % (11.5-14.5); Red Blood Count 4.08 M/uL (4.20-5.40); White Blood Count 5.72 K/ul (4.8-10.8)
[2023-12-03 09:05] LABS: BUN Creatinine Ratio 26.7 (10-20); Calcium 10.6 mg/dl (8.6-10.3); Creatinine Clr Calc Pharmacy 24.8 ml/min; Magnesium 1.7 mg/dl (1.7-2.4); Phosphorus 3.3 mg/dl (2.5-4.9); Potassium 4.2 mmol/L (3.5-5.1)
[2023-12-03] MEDS: INFLUENZA VACC TS2024-25(65y+)/PF (IIV3) 0.5mL Syr IM ONE (11:10)
--- NOTE | 2023-12-03 12:17 | Hospitalist Progress Note ---
Date of Service December 03, 2023 Assessment & Plan (1) Fall from standing: (2) Fracture of metatarsal of right foot, closed: (3) Ambulatory dysfunction: Plan This is a 86y/o F with PMH significant for CAD, chronic HFpEF, PAF, TBS s/p PPM, MARTI on 2L nocturnal O2, moderate MR, history of PE and RLE DVT, HTN, HLD, hyperparathyroidism, GERD, pernicious anemia, CHELSIE, depression and history of colon cancer s/p right hemicolectomy who presented to the ED for evaluation on 11/28/23 after sustaining a fall and was found to have multiple metatarsal fractures in her right foot. Multiple Right Foot Metatarsal Fractures S/P Fall & Ambulatory Dysfunction Admitting R foot XR with fractures throughout the bases of all 5 metatarsals, some of which appear comminuted. All other imaging (including CXR, cervical spine CT and head CT) were negative Ortho was consulted and recommended conservative treatment with the following suggestions --> boot for weightbearing x 1 month, compression (NICOLAS stocking or ELGIN wrap), ice and right foot elevation. Will need a follow-up with ortho as an outpatient in approximately 1 month. Continue pain and bowel regimens. CM working on discharge planning to SNF rehab Nonischemic Cardiomyopathy, Moderate-Severe TR & HTN CAD S/P PCI to LAD [2005], Chronic Combined Systolic and Diastolic CHF Patient follows with [facility]. 2D echo 08/11/2023 --> mod.increased concentric LV wall thickness, abnormal septal motion consistent with RV pacemaker, borderline diffuse LV hypokinesis, LVEF=45-49% (mildly reduced), grade III diastolic dysfunction, severely enlarged left atrium, mild aortic valve sclerosis, mild aortic valve regurgitation, moderate to severe mitral regurgitation and moderate tricuspid regurgitation Weight has remained stable, continue strict I's and O's Continue statin, metoprolol and potassium/mag supplementation Hold torsemide for tomorrow given VINITA on admission - Cr improving, appears euvolemic today Permanent Afib S/P Pacemaker Placement Rate-controlled Continue home meds including Toprol 100mg BID and digoxin on // Continue low dose Eliquis for anticoagulation H/O Spontaneous Retroperitoneal Hematoma [Previously on Warfarin, 08/2023] Hospitalized at [facility] [place], no trauma, attempted IR embolization but no active extravasation Repeat imaging showed resolving hematoma and therefore patient was started on low dose Eliquis. Close monitoring for bleeding H/O Iron Deficiency/Pernicious Anemia: Hgb stable today, continue to monitor with daily AM labs H/O DVT & PE: Likely provoked in 2021 due to hemicolectomy in setting of malignancy, on Eliquis - continue VINITA on CKD Stage III - improving Patient follows with [facility] Cr elevated at 1.9, improved to 1.76 (baseline Cr ~1.4-1.7 per chart review). Continue to hold torsemide for now Encouraged oral intake, repeat labs in AM. Avoid nephrotoxic meds when able and continue to monitor renal function closely Hyperparathyroidism 2/2 Right Parathyroid Adenoma S/P Excision [2008]: Continue to monitor calcium, will need PCP follow-up. Vitamin D supplementation on hold H/O Colon Cancer [2021]: S/p right hemicolectomy, no chemotherapy warranted. 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 I spent a total of 45 minutes coordinating, documenting, and providing care for this patient excluding time spent in the performance of separately billed services. Admission and Anticipated Discharge Date Admission Date: November 28, 2023 Subjective Patient seen and evaluated in 280. Patient feeling well today aside from some pain in right foot. No acute events overnight. PT/OT recommending inpatient rehab, case management working on placement. Denies any fever, chills, chest pain, shortness of breath, nausea, vomiting, abdominal pain, dysuria, diarrhea or constipation. Review of Systems Review of Systems: At least ten systems reviewed and negative, except as noted in the subjective section. Physical Exam Physical Exam: Gen: WD/WN, NAD, sitting in bedside chair, A&Ox3 HEENT: Normocephalic, atraumatic, conjunctivae moist, sclerae anicteric, mucous membranes moist Lung: Clear to Auscultation bilaterally, no wheezes/rales/rhonchi Heart: Regular rate, regular rhythm, no murmurs, rubs, or gallops Abdomen: Soft, NT, ND +BS x 4 Extremities: + RLE dressing in place. c/d/i, no edema Skin: Warm, no rash Results & Data Results & Data Vital Signs (Past 12 Hours) Vital Signs Temp Pulse Resp BP Pulse Ox O2 Del Method 12/03/23 08:07 36.7 C 61 16 156/70 H 95 Room Air Laboratory Results Short CBC 12/03/23 Range/Units 07:04 WBC 5.72 (4.8-10.8) K/ul Hgb 12.6 (12.0-16.0) g/dl Hct 39.9 (37.0-47.0) % Plt Count 195 (130-400) K/uL BMP 12/03/23 07:04 Sodium 136 Potassium 4.2 Chloride 101 Carbon Dioxide 29 BUN 47 H Creatinine 1.76 H Glucose 88 Calcium 10.6 H Diagnostic Findings Foot X-Ray 11/28/23 10:14 XR foot RT min 3V routine CLINICAL HISTORY: Foot trauma, no prior imaging TECHNIQUE: 3 views of the right foot were obtained. Comparison: None available at the time of this dictation. FINDINGS: Acute fractures are seen at the base of the metatarsals. The fourth and fifth metatarsal fractures appear comminuted. Bones are demineralized. Degenerative changes are seen. Soft tissue swelling is seen about the foot. IMPRESSION: Fractures throughout the bases of all 5 metatarsals, some of which appear comminuted. Lisfranc injury cannot be entirely excluded within the limits of radiographic examination. ACT 112: Negative or not required by law. Electronically signed by: Brian Lynn M.D. 11/28/2023 10:25 AM Chest X-Ray 11/28/23 10:32 XR chest 1V portable CLINICAL HISTORY: trauma TECHNIQUE: Single frontal radiograph of the chest was obtained. Comparison: Comparison is made to chest radiograph 06/14/2023 FINDINGS: An implanted pacemaker is seen. Calcified aortic knob is seen. The lungs are clear. No evidence of pleural effusion or pneumothorax. IMPRESSION: No acute chest disease. ACT 112: Negative or not required by law. Electronically signed by: Brian Lynn M.D. 11/28/2023 11:[address] 11/28/23 10:43 CT cervical spine wo con CT DOSE: 1034.47 mGy.cm CLINICAL HISTORY: 88 years-old Female with fall from standing; on eliquis. Acute neck pain status post trauma COMPARISON: Head CT of same day TECHNIQUE: Multiple axial CT images of the cervical spine were obtained without contrast. A dose lowering technique was utilized adhering to the principles of ALARA. FINDINGS: Demineralized appearance of the bones. Moderate to advanced multilevel intervertebral disc space narrowing, spondylitic spurring and facet arthrosis. Subcentimeter sclerotic focus involving the spinous process of C2 suggestive of a probable bone island. Partially calcified pannus posterior to the dens. The cervical soft tissues appear unremarkable. Mosaic attenuation with groundglass densities of the lung apices suggestive of atelectasis with air trapping. Partially imaged left subclavian leads. IMPRESSION: No acute cervical spine fracture or subluxation identified. ACT 112: Negative or not required by law. The above report was generated using voice recognition software. It may contain grammatical, syntax or spelling errors. Electronically signed by: Jose Cody M.D. 11/28/2023 11:[address] 11/28/23 10:43 CT OF THE HEAD WITHOUT CONTRAST CLINICAL HISTORY: fall from standing; on eliquis COMPARISON STUDY: Head CT June 05, 2023. TECHNIQUE: Helical axial images of the head were obtained without IV contrast. Automated exposure control was utilized for the study. A dose lowering technique was utilized adhering to the principles of ALARA. FINDINGS: No acute intracranial hemorrhage, midline shift or mass effect is present. The ventricular system is unremarkable. The basal cisterns are patent. White matter hypodensities are unchanged and favor small vessel disease. No extra-axial collections are present. There are no findings to suggest acute dural sinus thrombosis or acute territorial infarct. There are no calvarial fractures. Left orbital internal fixations are intact. IMPRESSION: 1. No acute intracranial findings. 2. No calvarial fractures. ACT 112: Negative or not required by law. Electronically signed by: Ramon Don M.D. 11/28/2023 11:37 AM (1) Fall from standing Encounter type: initial encounter Qualified Code(s): W19.XXXA - Unspecified fall, initial encounter (2) Fracture of metatarsal of right foot, closed Encounter type: initial encounter Metatarsal bone: unspecified metatarsal Physeal involvement: unspecified Qualified Code(s): S92.301A - Fracture of unspecified metatarsal bone(s), right foot, initial encounter for closed fracture
[2023-12-04 06:31] LABS: Hematocrit (blood only) 38.4 % (37.0-47.0); Mean Corpuscular Hemoglobin 30.9 pg (25.0-34.0); Mean Corpuscular Hgb Conc 31.3 g/dL (32.0-36.0); Platelet Count 201 K/uL (130-400); RDW Coefficient of Variation 13.5 % (11.5-14.5); RDW Standard Deviation 49.1 fL (36.4-46.3); Red Blood Count 3.88 M/uL (4.20-5.40); White Blood Count 5.68 K/ul (4.8-10.8)
[2023-12-04 06:55] LABS: BUN Creatinine Ratio 28.4 (10-20); Calcium 10.7 mg/dl (8.6-10.3); Creatinine Clr Calc Pharmacy 26.9 ml/min; Potassium 4.7 mmol/L (3.5-5.1)
--- NOTE | 2023-12-04 15:22 | Hospitalist Progress Note ---
Date of Service December 04, 2023 Assessment & Plan (1) Fall from standing: (2) Fracture of metatarsal of right foot, closed: (3) Ambulatory dysfunction: Plan This is a 86y/o F with PMH significant for CAD, chronic HFpEF, PAF, TBS s/p PPM, MARTI on 2L nocturnal O2, moderate MR, history of PE and RLE DVT, HTN, HLD, hyperparathyroidism, GERD, pernicious anemia, CHELSIE, depression and history of colon cancer s/p right hemicolectomy who presented to the ED for evaluation on 11/28/23 after sustaining a fall and was found to have multiple metatarsal fractures in her right foot. Multiple Right Foot Metatarsal Fractures S/P Fall & Ambulatory Dysfunction Admitting R foot XR with fractures throughout the bases of all 5 metatarsals, some of which appear comminuted. All other imaging (including CXR, cervical spine CT and head CT) were negative Ortho was consulted and recommended conservative treatment with the following suggestions --> boot for weightbearing x 1 month, compression (NICOLAS stocking or ELGIN wrap), ice and right foot elevation Will need a follow-up with ortho as an outpatient in approximately 1 month Continue pain and bowel regimens CM working on discharge planning to SNF rehab - [facility] Nonischemic Cardiomyopathy, Moderate-Severe TR & HTN CAD S/P PCI to LAD [2005], Chronic Combined Systolic and Diastolic CHF Patient follows with [facility]. 2D echo 08/11/2023 mod.increased concentric LV wall thickness, borderline diffuse LV hypokinesis, LVEF=45-49% (mildly reduced), grade III diastolic dysfunction, severely enlarged left atrium, mild aortic valve sclerosis, mild aortic valve regurgitation, moderate to severe mitral regurgitation and moderate tricuspid regurgitation Continue statin, metoprolol and potassium/mag supplementation Torsemide held for 2 days given VINITA but renal function improved, patient with faint crackles - resumed torsemide this AM Permanent Afib S/P Pacemaker Placement Rate-controlled Continue home meds including Toprol 100mg BID and digoxin on Continue low dose Eliquis for anticoagulation H/O Spontaneous Retroperitoneal Hematoma [Previously on Warfarin, 08/2023] Hospitalized at [facility] [place], no [place], attempted IR embolization but no active extravasation Repeat imaging showed resolving hematoma and therefore patient was started on low dose Eliquis. Close monitoring for bleeding H/O Iron Deficiency/Pernicious Anemia: Hgb stable today, continue to monitor with daily AM labs H/O DVT & PE: Likely provoked in 2021 due to hemicolectomy in setting of malignancy, on Eliquis - continue VINITA on CKD Stage III - improving -> resolved Patient follows with [facility] Cr elevated at 1.9, improved to 1.76 -> 1.62 today (baseline Cr ~1.4-1.7 per chart review) Resumed Torsemide this AM Daily BMP Hyperparathyroidism 2/2 Right Parathyroid Adenoma S/P Excision (2008): Calcium elevated throughout admission ~ 10.7, ionized calcium 1.41 today Per chart review, PTH elevated at 262 in July 2023 (Calcium 9.8 then) Follows with [facility] endocrine, has discussed with patient possibility of another adenoma, patient wants to avoid surgery if possible Repeating PTH to compare with results Patient requesting follow up with [facility] endocrine ([place] too far for her to travel, was due for f/u there this Fall) Holding vitamin D supplementation H/O Colon Cancer [2021]: S/p right hemicolectomy, no chemotherapy warranted. 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 I spent a total of 40 minutes coordinating, documenting, and providing care for this patient excluding time spent in the performance of separately billed services. Admission and Anticipated Discharge Date Admission Date: November 28, 2023 Subjective Patient seen and evaluated in 280. Patient feeling well today aside from some pain in right foot. No acute events overnight other than waking up and feeling a bit short of breath, which resolved when she sat up this morning. PT/OT recommending inpatient rehab, case management working on placement. Denies any fever, chills, chest pain, nausea, vomiting, abdominal pain, dysuria, diarrhea or constipation. Review of Systems Review of Systems: At least ten systems reviewed and negative except as noted in the HPI. Physical Exam Physical Exam: Gen: WD/WN, NAD, sitting in bedside chair, A&Ox3 HEENT: Normocephalic, atraumatic, conjunctivae moist, sclerae anicteric, mucous membranes moist Lung: mild crackles at bases, no wheezes Heart: Regular rate, regular rhythm, no murmurs, rubs, or gallops Abdomen: Soft, NT, ND +BS x 4 Extremities: + RLE dressing in place. c/d/i, no edema Skin: Warm, no rash Results & Data Results & Data Vital Signs (Past 12 Hours) Vital Signs Temp Pulse Resp BP Pulse Ox O2 Del Method 12/04/23 07:32 36.4 C L 58 L 18 126/76 94 Room Air Laboratory Results Short CBC 12/04/23 Range/Units 05:55 WBC 5.68 (4.8-10.8) K/ul Hgb 12.0 (12.0-16.0) g/dl Hct 38.4 (37.0-47.0) % Plt Count 201 (130-400) K/uL BMP 12/04/23 05:55 Sodium 134 L Potassium 4.7 Chloride 99 Carbon Dioxide 30 BUN 46 H Creatinine 1.62 H Glucose 95 Calcium 10.7 H (1) Fall from standing Encounter type: initial encounter Qualified Code(s): W19.XXXA - Unspecified fall, initial encounter (2) Fracture of metatarsal of right foot, closed Encounter type: initial encounter Metatarsal bone: unspecified metatarsal Physeal involvement: unspecified Qualified Code(s): S92.301A - Fracture of unspecified metatarsal bone(s), right foot, initial encounter for closed fracture
[2023-12-04 15:25] VITALS: RESP 16
[2023-12-05 06:38] LABS: BUN Creatinine Ratio 30.3 (10-20); Calcium 10.8 mg/dl (8.6-10.3); Creatinine Clr Calc Pharmacy 28.3 ml/min; Potassium 4.6 mmol/L (3.5-5.1)
--- NOTE | 2023-12-05 10:51 | Hospitalist Progress Note ---
Date of Service December 05, 2023 Assessment & Plan (1) Fall from standing: (2) Fracture of metatarsal of right foot, closed: (3) Ambulatory dysfunction: Plan This is a 86y/o F with PMH significant for CAD, chronic HFpEF, PAF, TBS s/p PPM, MARTI on 2L nocturnal O2, moderate MR, history of PE and RLE DVT, HTN, HLD, hyperparathyroidism, GERD, pernicious anemia, CHELSIE, depression and history of colon cancer s/p right hemicolectomy who presented to the ED for evaluation on 11/28/23 after sustaining a fall and was found to have multiple metatarsal fractures in her right foot. Multiple Right Foot Metatarsal Fractures S/P Fall & Ambulatory Dysfunction Admitting R foot XR with fractures throughout the bases of all 5 metatarsals, some of which appear comminuted. All other imaging (including CXR, cervical spine CT and head CT) were negative Ortho was consulted and recommended conservative treatment with the following suggestions --> boot for weightbearing x 1 month, compression (NICOLAS stocking or ELGIN wrap), ice and right foot elevation Will need a follow-up with ortho as an outpatient in approximately 1 month Continue pain and bowel regimens CM working on discharge planning to SNF rehab - [facility] vs [facility] Nonischemic Cardiomyopathy, Moderate-Severe TR & HTN CAD S/P PCI to LAD [2005], Chronic Combined Systolic and Diastolic CHF Patient follows with [facility]. 2D echo 08/11/2023 mod.increased concentric LV wall thickness, borderline diffuse LV hypokinesis, LVEF=45-49% (mildly reduced), grade III diastolic dysfunction, severely enlarged left atrium, mild aortic valve sclerosis, mild aortic valve regurgitation, moderate to severe mitral regurgitation and moderate tricuspid regurgitation Continue statin, metoprolol and potassium/mag supplementation Torsemide held for 2 days given VINITA but renal function improved, patient with faint crackles - resumed torsemide this AM Permanent Afib S/P Pacemaker Placement Rate-controlled Continue home meds including Toprol 100mg BID and digoxin on Continue low dose Eliquis for anticoagulation H/O Spontaneous Retroperitoneal Hematoma [Previously on Warfarin, 08/2023] Hospitalized at [facility], no trauma, attempted IR embolization but no active extravasation Repeat imaging showed resolving hematoma and therefore patient was started on low dose Eliquis. Close monitoring for bleeding H/O Iron Deficiency/Pernicious Anemia: Hgb stable, monitor H/O DVT & PE: Likely provoked in 2021 due to hemicolectomy in setting of malign yan, on Eliquis - continue VINITA on CKD Stage III - improving -> resolved Patient follows with [facility] Nephrology Cr elevated at 1.9, improved to 1.76 -> 1.62 today (baseline Cr ~1.4-1.7 per chart review) Resumed Torsemide this AM Daily BMP Hyperparathyroidism 2/2 Right Parathyroid Adenoma S/P Excision (2008): Calcium elevated throughout admission ~ 10.7, ionized calcium 1.41 today Per chart review, PTH elevated at 262 in July 2023 (Calcium 9.8 then) PTH normal, will need outpt endo follow up. Patient requesting follow up with [facility] endocrine ([place] too far for her to travel, was due for f/u there this Fall) Holding vitamin D supplementation H/O Colon Cancer dx in 2021 S/p right hemicolectomy, no chemotherapy warranted. Stable in remission currently DVT Prophylaxis: On qu EQUIPMENT MAN - Code status: FULL PCP: Cathy Wilburn MD Disposition: Admitted in Med/Surg - Patient is medically stable for discharge when a rehabilitation placement becomes available. I spent a total of 44 minutes coordinating, documenting, and providing care for this patient excluding time spent in the performance of separately billed services. Admission and Anticipated Discharge Date Admission Date: November 28, 2023 Supervising Physician Co-Signing Physician Notes Pt was not seen personally. pt awaiting placement. Subjective Pt seen and examined in room 383-1. F/U R metatarsal fx. She wishes she didn't have to go to rehab. She is tired this morning. She denies f/c/s, chest pain, sob, n/v/d. Per nursing notes, no BM since 11/30. Review of Systems Review of Systems: All systems reviewed & are unremarkable except as noted in HPI & below Physical Exam Physical Exam: Gen: WD/WN, NAD, A&O x3 HEENT: Normocephalic, atraumatic, conjunctivae moist, sclerae anicteric, mucous membranes moist. Lung: Clear to Auscultation bilaterally, no wheezes/rales/rhonchi Heart: IRR/IRR, no murmurs, rubs, or gallops Abdomen: Soft, NT, ND +BS x 4 Extremities: ecchymosis to R dorsal foot, mild edema, RLE compression wrap in place Skin: Warm, no rash, negative turgor. Results & Data Results & Data Vital Signs (Past 12 Hours) Vital Signs Temp Pulse Resp BP Pulse Ox O2 Del Method O2 Flow Rate 12/05/23 08:45 Room Air 12/05/23 07:22 36.3 C L 55 L 16 146/79 H 98 Nasal Cannula 2 Laboratory Results [facility] 12/05/23 05:54 Sodium 135 L Potassium 4.6 Chloride 102 Carbon Dioxide 28 BUN 46 H Creatinine 1.52 H Glucose 96 Calcium 10.8 H Medications Administered Current Inpatient Medications Acetaminophen (Acetaminophen 500 Mg Tab) 1,000 mg PO Q8H ILIANA Stop: 12/28/23 19:59 Last Admin: 12/05/23 05:24 Dose: 1,000 mg Apixaban (Apixaban 2.5 Mg Tab) 2.5 mg PO BID [facility]IANA Stop: 12/28/23 20:59 Last Admin: 12/05/23 08:35 Dose: 2.5 mg Atorvastatin Calcium (Atorvastatin 40 Mg Tab) 40 mg PO HS ILIANA Stop: 12/28/23 20:59 Last Admin: 12/04/23 21:04 Dose: 40 mg Cyanocobalamin (Cyanocobalamin (B-12) 500 Mcg Tablet) 1,000 mcg PO MoWeFr@0900 ILIANA Stop: 12/28/23 19:34 Last Admin: 12/05/23 08:36 Dose: 1,000 mcg Digoxin (Digoxin 0.125 Mg Tab) 0.125 mg PO MoWeFr@1600 [facility]NA Stop: 12/28/23 15:59 Last Admin: 12/02/23 15:35 Dose: 0.125 mg Duloxetine HCl (Duloxetine Hcl 30 Mg Cap) 30 mg PO QAM [facility] Stop: 12/29/23 08:59 Last Admin: 12/05/23 08:36 Dose: 30 mg Latanoprost (Latanoprost 0.005% Op Soln 2.5 Ml Btl) 1 drops OPB HS [facility] Stop: 12/28/23 20:59 Last Admin: 12/04/23 21:05 Dose: 1 drops Metoprolol Succinate (Metoprolol Succ 50mg Ext Rel Tab) 100 mg PO BID [facility]NA Stop: 12/28/23 20:59 Last Admin: 12/05/23 08:36 Dose: 100 mg Ondansetron HCl (Ondansetron Inj 2 Mg/Ml 2 Ml Vial) 4 mg IV Q4H PRN PRN Reason: Nausea And Vomiting Stop: 12/28/23 19:47 Oxycodone/Acetaminophen (Oxycodone/Acetaminophen 5mg/325mg Tab) 1 tab PO Q4H PRN PRN Reason: Mod-Sev Pain (Scale 4-10) Stop: 12/16/23 15:02 Last Admin: 12/04/23 09:24 Dose: 1 tab Pantoprazole Sodium (Pantoprazole 40 Mg Tab) 40 mg PO QAM [facility]; Protocol Stop: 12/29/23 08:59 Last Admin: 12/05/23 08:35 Dose: 40 mg Polyethylene Glycol (Polyethylene (Miralax) 17 Gm Pack) 17 gm PO DAILY [facility] Stop: 01/04/24 10:59 Potassium Chloride (Potassium Chloride 10 Meq Tabcr) 10 meq PO DAILY [facility] Stop: 12/29/23 08:59 Last Admin: 12/05/23 08:38 Dose: 10 meq Senna/Docusate Sodium (Docusate Sodium/Senna 50/8.6mg Tab) 1 tab PO BID [facility] Stop: 12/29/23 20:59 Last Admin: 12/05/23 08:38 Dose: 1 tab Torsemide (Torsemide 10 Mg Tab) 15 mg PO QAM [facility] Stop: 12/29/23 08:59 Last Admin: 12/05/23 08:35 Dose: 15 mg Tramadol HCl (Tramadol Hcl 50 Mg Tablet) 25 - 50 mg PO Q4H PRN PRN Reason: Pain Stop: 12/29/23 04:53 Last Admin: 12/04/23 16:07 Dose: 50 mg Vitamin D (Cholecalciferol 25 Mcg (1000 Units) Tab) 50 mcg PO QAM [facility] Stop: 12/29/23 08:59 Last Admin: 11/30/23 08:37 Dose: 50 mcg (1) Fall from standing Encounter type: initial encounter Qualified Code(s): W19.XXXA - Unspecified fall, initial encounter (2) Fracture of metatarsal of right foot, closed Encounter type: initial encounter Metatarsal bone: unspecified metatarsal Physeal involvement: unspecified Qualified Code(s): S92.301A - Fracture of unspecified metatarsal bone(s), right foot, initial encounter for closed fracture
[2023-12-05] MEDS: POLYETHYLENE (MIRALAX) 17 GM PACK PO SCH (11:39)
[2023-12-05] MEDS: oxyCODONE HCL IR 5 MG TAB (IMMEDIATE RELEASE) PO PRN (11:53)
[2023-12-06] MEDS ORDERED: FAMOTIDINE 10 MG TABLET PO PRN (10:29)
--- NOTE | 2023-12-06 10:49 | Hospitalist Progress Note ---
Date of Service December 06, 2023 Assessment & Plan (1) Fall from standing: (2) Fracture of metatarsal of right foot, closed: (3) Ambulatory dysfunction: Plan This is a 86y/o F with PMH significant for CAD, chronic HFpEF, PAF, TBS s/p PPM, MARTI on 2L nocturnal O2, moderate MR, history of PE and RLE DVT, HTN, HLD, hyperparathyroidism, GERD, pernicious anemia, CHELSIE, depression and history of colon cancer s/p right hemicolectomy who presented to the ED for evaluation on 11/28/23 after sustaining a fall and was found to have multiple metatarsal fractures in her right foot. Multiple Right Foot Metatarsal Fractures S/P Fall & Ambulatory Dysfunction Admitting R foot XR with fractures throughout the bases of all 5 metatarsals, some of which appear comminuted. All other imaging (including CXR, cervical spine CT and head CT) were negative Ortho was consulted and recommended conservative treatment with the following suggestions --> boot for weightbearing x 1 month, compression (NICOLAS stocking or ELGIN wrap), ice and right foot elevation Will need a follow-up with ortho as an outpatient in approximately 1 month Continue pain and bowel regimens Plan to d/c [facility], insurance auth to be submitted today Nonischemic Cardiomyopathy, Moderate-Severe TR & HTN CAD S/P PCI to LAD [2005], Chronic Combined Systolic and Diastolic CHF Patient follows with [facility]. 2D echo 08/11/2023 mod.increased concentric LV wall thickness, borderline diffuse LV hypokinesis, LVEF=45-49% (mildly reduced), grade III diastolic dysfunction, severely enlarged left atrium, mild aortic valve sclerosis, mild aortic valve regurgitation, moderate to severe mitral regurgitation and moderate tricuspid regurgitation Continue statin, metoprolol and potassium/mag supplementation Torsemide held for 2 days given VINITA but renal function improved, euvolemic Permanent Afib S/P Pacemaker Placement Rate-controlled Continue home meds including Toprol 100mg BID and digoxin on // Continue low dose Eliquis for anticoagulation H/O Spontaneous Retroperitoneal Hematoma [Previously on Warfarin, 08/2023] Hospital[place] [facility] no trauma, attempted IR embolization but no active extravasation Repeat imaging showed resolving hematoma and therefore patient was started on low dose Eliquis. Close monitoring for bleeding H/O Iron Deficiency/Pernicious Anemia: Hgb stable, monitor H/O DVT & PE: Likely provoked in 2021 due to hemicolectomy in setting of malignancy, on Eliquis - continue VINITA on CKD Stage III - improving -> resolved Patient follows with [facility] Nephrology Cr elevated at 1.9, improved to 1.76 -> 1.62 today (baseline Cr ~1.4-1.7 per chart review) Resumed Torsemide this AM Daily BMP Hyperparathyroidism 2/2 Right Parathyroid Adenoma S/P Excision (2008): Calcium elevated throughout admission ~ 10.7, ionized calcium 1.41 today Per chart review, PTH elevated at 262 in July 2023 (Calcium 9.8 then) PTH normal, will need outpt endo follow up. Patient requesting follow up with [facility] [place] ([place] too far for her to travel, was due for f/u there this Fall) Holding vitamin D supplementation H/O Colon Cancer dx in 2021 S/p right hemicolectomy, no chemotherapy warranted. Stable in remission currently DVT Prophylaxis: On Eliquis [employer] - continue Code status: FULL PCP: Cathy Wliburn MD Disposition: Admitted in Med/Surg - Patient is medically stable for discharge when a rehabilitation placement becomes available. I spent a total of 42 minutes coordinating, documenting, and providing care for this patient excluding time spent in the performance of separately billed services. Admission and Anticipated Discharge Date Admission Date: November 28, 2023 Supervising Physician Co-Signing Physician Notes Patient was seen and examined at bedside, patient reports pain under control, patient is awaiting placement. Total time spent 10 minutes. Hold vitamin D supplement due to hypercalcemia, patient advised to follow-up with endocrinology upon discharge. Patient to follow-up with orthopedics in 2 to 3 weeks time upon discharge. Patient to continue with PT/OT. I have seen and examined the patient and have discussed the case with the provider above. I agree with the assessment and plan as stated. Subjective Pt seen and examined in room 383-1. F/U R metatarsal fx. "Are they going to have a bed soon?" She endorses no concerns. Denies CP, SOB, n/v/d. She is tolerating diet and feels her R foot is feeling better from a pain standpoint. Review of Systems Review of Systems: All systems reviewed & are unremarkable except as noted in HPI & below Physical Exam Physical Exam: Gen: WD/WN, NAD, A&O x3 HEENT: Normocephalic, atraumatic, conjunctivae moist, sclerae anicteric, mucous membranes moist. Lung: Clear to Auscultation bilaterally, no wheezes/rales/rhonchi Heart: IRR/IRR, no murmurs, rubs, or gallops Abdomen: Soft, NT, ND +BS x 4 Extremities: ecchymosis to R dorsal foot, mild edema, RLE compression wrap in place Skin: Warm, no rash, negative turgor. Results & Data Results & Data Vital Signs (Past 12 Hours) Vital Signs Temp Pulse Resp BP Pulse Ox O2 Del Method O2 Flow Rate 12/06/23 07:39 Nasal Cannula 2 12/06/23 07:02 36.3 C L 59 L 16 146/53 H 99 Nasal Cannula 2 Medications Administered Current Inpatient Medications Acetaminophen (Acetaminophen 500 Mg Tab) 1,000 mg PO Q8H [facility] Stop: 12/28/23 19:59 Last Admin: 12/06/23 05:07 Dose: 1,000 mg Apixaban (Apixaban 2.5 Mg Tab) 2.5 mg PO BID [facility] Stop: 12/28/23 20:59 Last Admin: 12/06/23 08:44 Dose: 2.5 mg Atorvastatin Calcium (Atorvastatin 40 Mg Tab) 40 mg PO HS ILIANA Stop: 12/28/23 20:59 Last Admin: 12/05/23 20:03 Dose: 40 mg Cyanocobalamin (Cyanocobalamin (B-12) 500 Mcg Tablet) 1,000 mcg PO MoWeFr@0900 [facility] Stop: 12/28/23 19:34 Last Admin: 12/05/23 08:36 Dose: 1,000 mcg Digoxin (Digoxin 0.125 Mg Tab) 0.125 mg PO MoWeFr@1600 [facility]NA Stop: 12/28/23 15:59 Last Admin: 12/05/23 16:30 Dose: 0.125 mg Duloxetine HCl (Duloxetine Hcl 30 Mg Cap) 30 mg PO QAM [facility] Stop: 12/29/23 08:59 Last Admin: 12/06/23 08:44 Dose: 30 mg Famotidine (Famotidine 40 Mg Tablet) 40 mg PO NOW ONE Stop: 12/06/23 10:30 Famotidine (Famotidine 20 Mg Tab) 20 mg PO BID PRN PRN Reason: GERD Stop: 01/06/24 08:59 Latanoprost (Latanoprost 0.005% Op Soln 2.5 Ml Btl) 1 drops OPB HS [facility] Stop: 12/28/23 20:59 Last Admin: 12/05/23 20:03 Dose: 1 drops Metoprolol Succinate (Metoprolol Succ 50mg Ext Rel Tab) 100 mg PO BID [facility] Stop: 12/28/23 20:59 Last Admin: 12/06/23 08:44 Dose: 100 mg Ondansetron HCl (Ondansetron Inj 2 Mg/Ml 2 Ml Vial) 4 mg IV Q4H PRN PRN Reason: Nausea And Vomiting Stop: 12/28/23 19:47 Oxycodone HCl (Oxycodone Hcl Ir 5 Mg Tab (Immediate Release)) 5 mg PO Q8H PRN PRN Reason: Mod-Sev Pain (Scale 4-10) Stop: 12/19/23 11:29 Last Admin: 12/05/23 20:02 Dose: 5 mg Pantoprazole Sodium (Pantoprazole 40 Mg Tab) [facility] Protocol Stop: 12/29/23 08:59 Last Admin: 12/06/23 08:44 Dose: 40 mg Polyethylene Glycol (Polyethylene (Miralax) 17 Gm Pack) 17 gm PO DAILY [facility] Stop: 01/04/24 10:59 Last Admin: 12/06/23 08:44 Dose: 17 gm Potassium Chloride (Potassium Chloride 10 Meq Tabcr) 10 meq PO DAILY [facility] Stop: 12/29/23 08:59 Last Admin: 12/06/23 08:44 Dose: 10 meq Senna/Docusate Sodium (Docusate Sodium/Senna 50/8.6mg Tab) 1 tab PO BID [facility] Stop: 12/29/23 20:59 Last Admin: 12/06/23 08:44 Dose: 1 tab Torsemide (Torsemide 10 Mg Tab) 15 mg PO QAM [facility] Stop: 12/29/23 08:59 Last Admin: 12/06/23 08:44 Dose: 15 mg Vitamin D (Cholecalciferol 25 Mcg (1000 Units) Tab) 50 mcg PO QAM [facility] Stop: 12/29/23 08:59 Last Admin: 11/30/23 08:37 Dose: 50 mcg (1) Fall from standing Encounter type: initial encounter Qualified Code(s): W19.XXXA - Unspecified fall, initial encounter (2) Fracture of metatarsal of right foot, closed Encounter type: initial encounter Metatarsal bone: unspecified metatarsal Physeal involvement: unspecified Qualified Code(s): S92.301A - Fracture of unspecified metatarsal bone(s), right foot, initial encounter for closed fracture
[2023-12-06] MEDS: FAMOTIDINE 20 MG TAB PO ONE (11:54)
[2023-12-06 14:14] VITALS: BP 98/63; PULSE 62; TEMP 97.9; O2SAT 96
--- NOTE | 2023-12-06 14:22 | Discharge Summary ---
Discharge Summary Date of Service December 06, 2023 Principal Dx & Hospital Course #1 = Principal Diagnosis (1) Fall from standing: (2) Fracture of metatarsal of right foot, closed: (3) Ambulatory dysfunction: Plan This is a 86y/o F with PMH significant for CAD, chronic HFpEF, PAF, TBS s/p PPM, MARTI on 2L nocturnal O2, moderate MR, history of PE and RLE DVT, HTN, HLD, hyperparathyroidism, GERD, pernicious anemia, CHELSIE, depression and history of colon cancer s/p right hemicolectomy who presented to the ED for evaluation on 11/28/23 after sustaining a fall and was found to have multiple metatarsal fractures in her right foot. Multiple Right Foot Metatarsal Fractures S/P Fall & Ambulatory Dysfunction Admitting R foot XR with fractures throughout the bases of all 5 metatarsals, some of which appear comminuted. All other imaging (including CXR, cervical spine CT and head CT) were negative Ortho was consulted and recommended conservative treatment with the following suggestions --> boot for weightbearing x 1 month, compression (NICOLAS stocking or ELGIN wrap), ice and right foot elevation Will need a follow-up with ortho as an outpatient in approximately 1 month, on or around 12/30/23. She was seen by [facility]. Continue pain and bowel regimens Plan to d/c to [facility] today Nonischemic Cardiomyopathy, Moderate-Severe TR & HTN CAD S/P PCI to LAD [2005], Chronic Combined Systolic and Diastolic CHF Patient follows with [facility]. 2D echo 08/11/2023 mod.increased concentric LV wall thickness, borderline diffuse LV hypokinesis, LVEF=45-49% (mildly reduced), grade III diastolic dysfunction, severely enlarged left atrium, mild aortic valve sclerosis, mild aortic valve regurgitation, moderate to severe mitral regurgitation and moderate tricuspid regurgitation Continue statin, metoprolol and potassium/mag supplementation Torsemide held for 2 days given VINITA but renal function improved, euvolemic. She is on 15mg daily. Permanent Afib S/P Pacemaker Placement Rate-controlled Continue home meds including Toprol 100mg BID and digoxin on // Continue low dose Eliquis for anticoagulation H/O Spontaneous Retroperitoneal Hematoma [Previously on Warfarin, 08/2023] Hospitalized at [facility], no trauma, attempted IR embolization but no active extravasation Repeat imaging showed resolving hematoma and therefore patient was started on low dose Eliquis. Close monitoring for bleeding H/O Iron Deficiency/Pernicious Anemia: Hgb stable, monitor H/O DVT & PE: Likely provoked in 2021 due to hemicolectomy in setting of malignancy, on Eliquis - continue VINITA on CKD Stage III - improving -> resolved Patient follows with [facility] Cr elevated at 1.9, improved to 1.76 -> 1.62 today (baseline Cr ~1.4-1.7 per chart review) Resumed Torsemide this AM Daily BMP Hyperparathyroidism 2/2 Right Parathyroid Adenoma S/P Excision (2008): Calcium elevated throughout admission ~ 10.7, ionized calcium 1.41 today Per chart review, PTH elevated at 262 in July 2023 (Calcium 9.8 then) PTH normal, will need outpt endo follow up. Patient requesting follow up with [facility] endocrine ([place] too far for her to travel, was due for f/u there this Fall) Holding vitamin D supplementation H/O Colon Cancer dx in 2021 S/p right hemicolectomy, no chemotherapy warranted. 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 Mckenzie or Alvaro Chau. Pt needs to establish with [facility] due to persistent Hypercalcemia. She has hx of parathyroid adenoma s/p resection. Her Vitamin D is on hold because of elevated calcium. Her PTH was normal in the hospital. She did have mild VINITA while hospitalized but renal function returned to baseline. Continue low sodium diet, daily weights. Obtain CBC, CMP, Mag within 3 days of discharge. Medication Changes From Visit Please refer to Discharge Instructions. Admission HPI Per Admitting Provider This is a 88 yo F with PMHx HTN, dyslipidemia, CAD s/p PCI LAD in 2004, atrial fibrillation, tachybradycardia syndrome s/p pacemaker, history of DVT, PE, on chronic anticoagulation with eliquis, chronic CHF, CKD III, MARTI and hypoxemia on 2 L oxygen at bedtime, chronic pernicious anemia, depression, anxiety, venous insufficiency, GERD, others listed below. She presents today with Acute fall that she sustained while at home patient was walking with a walker, states her knees locked up and she fell down to the ground and her R foot twisted funny underneath her. She had immediate pain and called EMS. She missed her morning medications today, including metoprolol succinate 100 mg, digoxin, torsemide. She last took her Eliquis yesterday. Here in the ER pt is found to have Right metatarsals x 5 fracutred. Patient was given 1000 mg IV Tylenol which slightly improved her pain however at the point of my visit she reports that would like to try something additional. Will give her 1 dose of tramadol. Patient states that she already has a home health PT/OT coming to her apartment twice weekly, is not keen on going to inpatient rehab but is willing to participate if this is best for her safety. She has 4 children but does not have a designated medical POA. Admission Exam Per Admitting Provider General: awake, alert, no apparent distress, elderly white female Head: Normocephalic, atraumatic ENT: PERRL, EOMI, no pharyngeal exudate, mucous membranes moist Chest: Clear to auscultation, on room air, no adventitious breath sounds Cardiac: + Irregularly irregular, + loud ARISTEO, no JVD, normal peripheral pulses, good capillary refill Abdominal: NABS x 4 quadrants, soft, nondistended, nontender to palpation, no rebound or guarding Extremities: RLE in stabilizing boot, normal left side peripheral pulses, + LLE varicose veins, no peripheral edema or erythema, calfs nontender to palpation Psych: Normal mood and affect Neuro: AAO x 3, strength intact bilaterally and rated 5/5, no motor deficits, speech is clear, no peripheral sensory deficits Discharge Exam Gen: WD/WN, NAD, A&O x3 HEENT: Normocephalic, atraumatic, conjunctivae moist, sclerae anicteric, mucous membranes moist. Lung: Clear to Auscultation bilaterally, no wheezes/rales/rhonchi Heart: IRR/IRR, no murmurs, rubs, or gallops Abdomen: Soft, NT, ND +BS x 4 Extremities: ecchymosis to R dorsal foot, mild edema, RLE compression wrap in place Skin: Warm, no rash, negative turgor. Updated Medication List Medication Instructions Recorded Confirmed Type latanoprost (PF) 0.005 % eye drops 1 drp OPB HS 01/13/21 11/28/23 History Oxygen Home 06/18/21 11/28/23 History denosumab 60 mg/mL subcutaneous 60 mg subcut UD 06/18/21 11/28/23 History syringe (Prolia) cholecalciferol (vitamin D3) 25 25 mcg PO QAM 06/16/22 11/28/23 History mcg (1,000 unit) capsule (Vitamin D3) sennosides 8.6 mg-docusate sodium 2 tab-cap PO HS PRN Constipation 05/27/23 11/28/23 History 50 mg capsule (Senna Plus) sulfamethoxazole 800 1 tab PO BID 11/28/23 11/28/23 History mg-trimethoprim 160 mg tablet acetaminophen 500 mg tablet 500 mg PO QID PRN Pain #30 tabs 12/06/23 Rx (Tylenol Extra Strength) apixaban 2.5 mg tablet (Eliquis) 2.5 mg PO BID #60 tabs 12/06/23 Rx atorvastatin 40 mg tablet 40 mg PO HS #30 tabs 12/06/23 Rx cyanocobalamin (vitamin B-12) 1,000 mcg PO 3XWK #12 tabs 12/06/23 Rx 1,000 mcg tablet (Vitamin B-12) digoxin 125 mcg (0.125 mg) tablet 0.125 mg PO MoWeFr@0900 #30 tabs 12/06/23 Rx (Digitek) duloxetine 30 mg capsule,delayed 30 mg PO QAM #30 caps 12/06/23 Rx release lorazepam 0.5 mg tablet 0.5 mg PO TID PRN Anxiety #10 tabs 12/06/23 Rx magnesium chloride 70 mg 70 mg PO DAILY #10 tabs 12/06/23 Rx (magnesium chloride) tablet,delayed release metoprolol succinate 100 mg 100 mg PO BID #60 tabs 12/06/23 Rx tablet,extended release 24 hr omeprazole 20 mg capsule,delayed 20 mg PO QAM #30 caps 12/06/23 Rx release oxycodone 5 mg tablet 5 mg PO Q8H PRN severe pain (scale 12/06/23 Rx score 7-10) #12 tabs polyethylene glycol 3350 17 gram 17 g PO DAILY #30 ea 12/06/23 Rx oral powder packet (Miralax) potassium chloride 20 mEq 10 meq (1/2 x 20 mEq) PO DAILY #15 12/06/23 Rx tablet,extended release tabs sennosides 8.6 mg-docusate sodium 1 tab PO BID #60 tabs 12/06/23 Rx 50 mg tablet (Senokot-S) torsemide 20 mg tablet 15 mg (0.75 x 20 mg) PO QAM #30 12/06/23 Rx tabs Hospital Stay Data Consultations 11/28/23 14:28 ED Decision to Admit Stat 11/28/23 15:19 Consult Orthopedic Surgery Routine She has multiple metatarsal fractures. Xray reviewed by Dr. Mckenzie. Recommend conservative treatment. Boot for weight bearing x 1 month. okay to remove the boot at rest. Should have something for compression (nicolas stocking or elgin wrap), ice, elevate right foot. Follow up as outpatient with ortho in about 1 month. Diagnostic Imagining Performed Foot X-Ray 11/28/23 10:14 XR foot RT min 3V routine CLINICAL HISTORY: Foot trauma, no prior imaging TECHNIQUE: 3 views of the right foot were obtained. Comparison: None available at the time of this dictation. FINDINGS: Acute fractures are seen at the base of the metatarsals. The fourth and fifth metatarsal fractures appear comminuted. Bones are demineralized. Degenerative changes are seen. Soft tissue swelling is seen about the foot. IMPRESSION: Fractures throughout the bases of all 5 metatarsals, some of which appear comminuted. Lisfranc injury cannot be entirely excluded within the limits of radiographic examination. ACT 112: Negative or not required by law. Electronically signed by: Brian Lynn M.D. 11/28/2023 10:25 AM Chest X-Ray 11/28/23 10:32 XR chest 1V portable CLINICAL HISTORY: trauma TECHNIQUE: Single frontal radiograph of the chest was obtained. Comparison: Comparison is made to chest radiograph 06/14/2023 FINDINGS: An implanted pacemaker is seen. Calcified aortic knob is seen. The lungs are clear. No evidence of pleural effusion or pneumothorax. IMPRESSION: No acute chest disease. ACT 112: Negative or not required by law. Electronically signed by: Brian Lynn M.D. 11/28/2023 11:[address] 11/28/23 10:43 CT cervical spine wo con CT DOSE: 1034.47 mGy.cm CLINICAL HISTORY: 88 years-old Female with fall from standing; on eliquis. Acute neck pain status post trauma COMPARISON: Head CT of same day TECHNIQUE: Multiple axial CT images of the cervical spine were obtained without contrast. A dose lowering technique was utilized adhering to the principles of ALARA. FINDINGS: Demineralized appearance of the bones. Moderate to advanced multilevel intervertebral disc space narrowing, spondylitic spurring and facet arthrosis. Subcentimeter sclerotic focus involving the spinous process of C2 suggestive of a probable bone island. Partially calcified pannus posterior to the dens. The cervical soft tissues appear unremarkable. Mosaic attenuation with groundglass densities of the lung apices suggestive of atelectasis with air trapping. Partially imaged left subclavian leads. IMPRESSION: No acute cervical spine fracture or subluxation identified. ACT 112: Negative or not required by law. The above report was generated using voice recognition software. It may contain grammatical, syntax or spelling errors. Electronically signed by: Jose Cody M.D. 11/28/2023 11:[address] 11/28/23 10:43 CT OF THE HEAD WITHOUT CONTRAST CLINICAL HISTORY: fall from standing; on eliquis COMPARISON STUDY: Head CT June 05, 2023. TECHNIQUE: Helical axial images of the head were obtained without IV contrast. Automated exposure control was utilized for the study. A dose lowering technique was utilized adhering to the principles of ALARA. FINDINGS: No acute intracranial hemorrhage, midline shift or mass effect is present. The ventricular system is unremarkable. The basal cisterns are patent. White matter hypodensities are unchanged and favor small vessel disease. No extra-axial collections are present. There are no findings to suggest acute dural sinus thrombosis or acute territorial infarct. There are no calvarial fractures. Left orbital internal fixations are intact. IMPRESSION: 1. No acute intracranial findings. 2. No calvarial fractures. ACT 112: Negative or not required by law. Electronically signed by: Ramon Don M.D. 11/28/2023 11:37 AM Pending Results Patient Have Any Pending Studies at Discharge: No Discharge Instructions Given to Patient (Per Discharging Provider) Please follow up with your Primary Care Provider upon discharge from Rehab. Please follow up with [facility] in 3 weeks, on or around 12/30/23. Please get lab work drawn in 3 days of discharge including a CBC, CMP, Magnesium to monitor your renal function and calcium levels. Your calcium levels were high during admission. Please call [facility] to obtain an appointment, . Please monitor your weight daily. Your weight on day of discharge was 73.5kg. Total Time Total Time Spent Total Time Spent (In Minutes): 35 minutes Supervising Physician Co-Signing Physician Notes Patient was seen and examined at bedside, patient reports pain under control, patient is awaiting placement. Hold vitamin D supplement due to hypercalcemia, patient advised to follow-up with endocrinology upon discharge. Patient to follow-up with orthopedics in 2 to 3 weeks time upon discharge. Patient to continue with PT/OT. Total time spent 10 minutes. I have seen and examined the patient and have discussed the case with the provider above. I agree with the assessment and plan as stated.
== END 2023-12-06 18:25 | DRG 563 ==
LOC: ED 10:04 → SUATTDRO 15:19 → 2N 15:19 → 3N 12-04 20:00

== ENCOUNTER 2024-01-07 09:31 | Inpatient (IN) ==
--- OUTSIDE RECORDS SUMMARY | 2024-01-07 09:40 | External Medical Summary | Summary of Care ---
Author Name Unknown Organization [facility] Address [address] [place] [address] Phone [phone] Care Team Providers Care Industrial Service Technician Name Role Phone Cathy Wilburn MD Primary Care Provide r Reason for Visit * Reason Onset Date Comments Follow Up 01/07/2024 Encounter Details Date Type Department Care Team (Late st Contact Info) Description 01/07/2024 9:45 AM EST Scheduled Telephone [facility], [facility] [address] [place] [address] [facility], Nurse [facility] [address] [place] [address] Allergies Active Allergy Reactions Criticality Noted Date [...] as of this encounter (statuses as of 01/07/2024) Medications Acetaminophen 325 MG Oral Tablet (Tylenol) Take by mouth 2 Tablets every 4 hours as needed for Fever >38C(100.5F), Pain, Mild, Pain, Moderate or Pain, Severe. 100 Tablet 1 2 Active Atorvastatin Calcium 40 MG Oral Tablet (Lipitor)Indicati ons:Atheroscleros is of [place] coronary artery of [place] heart without angina pectoris,Dyslipid emia, goal LDL [...] AND TUESDAY 30 Tablet 11 4 Active Bladder Control Pads Ex Absorb Use as directed. Active Prolia 60 MG/ML Subcutaneous Solution Prefilled Syringe (Denosumab) Inject 60 mg under the skin once. Active Digoxin 125 MCG Oral Tablet (Lanoxin) Take 1 Tablet by mouth once a day on Tuesday, Tuesday, and Tuesday only. Active Magnesium Chloride 64 MG Oral Tablet [...] before bedtime. 60 Tablet 2 4 Active Metoprolol Succinate ER 100 MG Oral Tablet Extended Release 24 Hour (toPROL XL) Take 1 Tablet by mouth in the morning and 1 Tablet before bedtime. 180 Tablet 4 Active Senexon-S 8.6-50 MG Oral Tablet (senna-docusate) TAKE TWO TABLETS AT BEDTIME 180 Tablet 1 4 Active Potassium Chloride ER 10 MEQ Oral Capsule Extended ReleaseIndication s:Chronic diastolic heart failure (HCC) TAKE ONE CAPSULE IN THE MORNING 30 Capsule 2 4 Active Ferrous Sulfate 325 (65 Fe) MG Oral Tablet (FeroSul) Take 1 Tablet by mouth every other day. 14 Tablet 5 4 Active Polyethylene Glycol 3350 17 GM/SCOOP Oral Powder (MiraLax) Take 17 g by mouth in the morning. Dissolve one heaping tablespoon in 8 ounces of water or juice.. 4 Active LORazepam 0.5 MG Oral Tablet (Ativan)Indicatio ns:Anxiety Take 0.5 Tablets by mouth daily as needed for Anxiety. 15 Tablet 4 Active Latanoprost 0.005 % Ophthalmic Solution (Xalatan) Instill 1 Drop into both eyes at bedtime. 4 Active Lidocaine 4 % External Patch (Aspercreme) Place 1 Patch over 12 hours topically on the skin daily. 4 Active oxyCODONE HCl 5 MG Oral Tablet (Oxy IR)Indications:Cl osed displaced fracture of metatarsal bone of right foot with routine healing, unspecified metatarsal, subsequent encounter Take 1 Tablet by mouth every 8 hours as needed for Pain, Severe. 8 Tablet 4 Active documented as of this encounter (statuses as of 01/07/2024) Active Problems Problem Noted Date Diagnosed Date Closed displaced fracture of metatarsal bone of right foot with routine healing 12/07/2023 Overview (12/07/2023): Fractures of bases of all 5 metatarsals 11/28/23 History of hemicolectomy 09/21/2023 Glaucoma 09/20/2023 Severe tricuspid regurgitation 06/20/2023 Full code status 06/20/2023 Hyperparathyroidism 03/17/2023 Essential (primary) hypertension 03/17/2023 History of pulmonary embolism 07/22/2021 History of DVT (deep vein thrombosis) 07/22/2021 Overview (07/22/2021): Distal RLE History of colon cancer 07/17/2021 Tachy-kraig syndrome 07/17/2021 Nonischemic cardiomyopathy 07/08/2021 LVH (left ventricular hypertrophy) 06/03/2021 Status post right hemicolectomy 05/12/2021 Chronic kidney disease, stage 3b 04/13/2021 Overview: Per CKD protocol History of unexplained bleeding 02/10/2021 Moderate episode of recurrent major depressive d isorder 2020 Mixed stress and urge urinary incontinence 05/08 History of falling 09/07/2019 MARTI (obstructive sleep apnea) 04/27/2018 Primary osteoarthritis of both knees 12/23/2017 Family history of von Willebrand disease 018 Paroxysmal atrial fibrillation 04/21/2017 Assessment & Plan (01/05/2024 7:28 AM EST): Metoprolol Succinate 100mg BID Digoxin 125mcg M/W/F Eliquis 2.5mg BID Cardiac pacemaker in situ 04/19/2017 Encounter for long-term (cur rent) use of high-risk medication 02/08/2017 Multiple thyroid nodules 01/05/2017 Hx of nonmelanoma skin cancer 09/27/2016 Overview (09/27/2016): basal cell carcinoma (upper central forehead) 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 stage 3b chronic kidney disease 03/06/2015 Overview: Per CKD protocol Assessment & Plan (01/05/2024 7:26 AM EST): Torsemide 15mg daily Varicose vein of leg 06/17/2012 Dyslipidemia, goal LDL below 70 10/09/2009 Anxiety state 05/02/2009 Degeneration of lumbosacral intervertebral disc 02/04/2009 Coronary atherosclerosis of [place] coronary luis ry 02/24/2005 Assessment & Plan (01/05/2024 7:27 AM EST): On Eliquis 2.5mg BID Metoprolol Succinate 100mg BID On Atorvastatin 40mg daily Not on ACEI or BB Senile osteoporosis 05/14/2003 Carpal tunnel syndrome 04/23/2003 Moderate mitral regurgitation GENERAL OSTEOARTHROSIS Gastroesophageal reflux disease without esophagi tis Hyperparathyroidism, primary documented as of this encounter (statuses as of 01/07/2024) Resolved Problems Problem Noted Date Diagnosed Date Resolved Date Malignant neoplasm of colon 12/20/2023 12/26/2023 Retroperitoneal bleed 09/21/20232023 DVT, lower extremity, distal, acute, right 09/20/2023 01/04/2024 Stage 3 chronic kidney disease 03/17/2023 04/14/2023 Acute pulmonary embolism 07/17/2021 Chronic systolic heart failure 06/03/2021 06/03/2021 LAE (left atrial enlargement) 06/03/2021 08/26/2021 Overview (08/26/2021): Duplicate DVT, lower extremity, distal, acute, right 06/03/2021 07/22/2021 Pulmonary embolism and infarction 06/03/2021 07/22/2021 Malignant neoplasm in situ of colon 05/12/2021 05/13/2021 Malignant neoplasm of ascending colon 05/12/2021 04/23/2022 Overview (08/26/2021): S/P colectomy-No current treatment 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 stage 3a chronic kidney disease 04/13/2021 08/13/2021 Overview: Per CKD protocol Iron deficiency anemia 12/24/202012/25 Chronic kidney disease, stage 3a 07/08/2020 04/15/2021 Overview: Per CKD protocol Hyperparathyroidism 04/02/2020 06/26/19 Stage 3a chronic kidney disease 01/07/2020 06/12/2020 Overview: Per CKD protocol 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 diastolic congestive heart failure and stage 3a chronic kidney disease 01/07/202003/31 Overview: Per CKD protocol Thrombophlebitis of superfic ial veins of left lower extremity 01/01/2020 12/26/2023 Thoracic aorta atherosclerosis 11/06/2019 03/17/2023 Acute blood loss anemia 10/22/2019 07/3 02/2023 Peripheral edema 09/07/2019 12/26/2023 Pernicious anemia 11/22/2018 12/26/2023 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 05/25/201801/09 Overview: Per CKD protocol B12 deficiency 11/17/2017 12/26/2023 MEDICATION USE AGREEMENT 02/08/201704/2019 Atrial fibrillation with RVR 07/30/2016 07/15/2017 Hypotension due to hypovolemia 01/15/2016 09/28/2023 Essential hypertension with goal blood pressure less than 140/90 11/24/2015 05/22/2020 Atypical chest pain 06/19/2015 06/03/19 17 Constipation 04/24/2015 02/08/2017 Kidney disease, chronic, sta ge III (GFR 30-59 ml/min) 04/08/2015 01/10/2020 Overview: Per CKD protocol Pericarditis 03/06/2015 11/24/2015 Encounter for surveillance of abnormal nevi 09/11/2014 05/29/2018 Overview (09/27/2016): mildly dysplastic nevus (R thigh) Dyslipidemia, goal LDL below 100 05/28/2014 12/26/2023 HTN, goal below 140/90 05/28/201411/23 Hypertension goal BP (blood pressure) < 140/80 02/25/2014 05/28/2014 Osteoporosis 12/10/2013 12/23/2017 Allergic rhinitis 10/06/2012 12/26/2023 Localized, primary osteoarthritis of hand 02/04/2011 01/18/2012 Venous insufficiency 10/22/2009 024 Adjustment disorder with mix ed disturbance of emotions and conduct 05/02/2009 01/15/2015 ACTIVE CASE MANAGEMENT Carlie Santiago RN 03/18/2009 12/15/2009 HTN, goal below 130/80 02/04/200905/28 Dyslipidemia, goal LDL below 100 02/04/2009 10/09/2009 Overview (02/04/2009): Per Lipid Taxonomy. HTN, goal below 140/90 01/03/200902/04 Overview (01/03/2009): Modified per HTN Taxonomy. Hyperparathyroidism 07/02/2008 10/02/19 09 Overview (11/29/2016): RLP Parathyroid adenoma resection Benjy Gonzalez, July 02, 2008 ICD-10 update of inactive term Slow transit constipation 02/09/2008 Postmenopausal atrophic vaginitis 02/09/2008 07/15/2017 Hypercalcemia 07/14/2005 05/22/2007 PVC (premature ventricular contraction) 05/26/2005 04/21/2017 Ischemic cardiomyopathy 02/25/200507/29 ADVANCE DIRECTIVE INFORMATION 02/24/2005 02/08/2017 Overview (02/24/2005): No, Advance Directive brochure given to patient at prior appointment. OSTEOARTHROS NOS-L-LEG 05/26/200406/20 TENOSYNOV HAND-WRIST NEC 04/23/2003 CERVICAL 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 LOC PRIM [id number] 02/14/200205/30 Other seborrheic keratosis 10/31/2001 0 06/06/2007 neurofibroma 10/31/2001 06/06/2007 BENIGN NEOPLASM SKIN NOS 10/25/200109/2007 Pain in limb 07/29/2001 05/22/2007 Need for prophylactic hormon e replacement therapy (postmenopausal) 11/18/2000 05/22/2007 Reflux esophagitis 11/18/2000 8 SBE (subacute bacterial endo carditis) prophylaxis candidate 06/06/2007 Mitral valve disorder 2012 DIFFUS CYSTIC MASTOPATHY 09/2007 BENIGN NEOPLASM LG BOWEL 01/2017 BENIGN HYPERTENSION 01/04/20 09 Overview (01/03/2009): Modified per HTN Taxonomy. Menopause 05/22/2007 GANGLION OF TENDON 8 Atrial premature beats 07/15 Paroxysmal atrial tachycardia 10/28/2016 FX FACIAL BONE NEC-CLOSE Syncope and collapse 008 Asthma with severity to be determined 10/22/2009 Overview (06/09/2015): ICD-10 update of inactive term BENIGN PARXYSMAL VERTIGO 06/2016 Other specified causes of urethral stricture 06/06/2007 History of skin cancer 02/08 Tachycardia 05/22/2007 Mixed dyslipidemia 9 Overview (02/04/2009): Per Lipid Taxonomy. Vitamin B deficiency 014 Vitamin D deficiency 024 documented as of this encounter (statuses as of 01/07/2024) Immunizations Name Administration Dates Next Due Pneumococcal Conjugate Vacc, 13 Valent (Prevnar) 02/08/2017 Pneumococcal Polysaccharide PPV23 (Pneumovax) Seasonal Influenza Vac., MDV, IM, 0.5 mL (Fluzon e) 03/13/2012 TD - Tetanus/Diptheria (ADULT) 12/30/2009 TD, [...] you got the money to buy more. Sometimes true Within the past 12 months, t he food you bought just didn't last and you didn't have money to get more. Often true Childcare Answer Date Recorded Do you feel overwhelmed with taking care of a child, family member or friend? No 12/23/2023 Does your family need help f inding childcare? (Household - for ages 0-17 years) Not on file 12/23/2023 Clothing Answer Date Recorded Have you been unable to get clothing when it was really needed? No 12/23/2023 Is your family able to get c lothes or diapers when needed? (Household - for ages 0-17 years) Not on file 12/23/2023 Personal Safety Answer Date Recorded Do you feel unsafe or have concerns for your saf ety? No 12/23/2023 Do you have concerns for you r family's safety? (Household - for ages 0-17 years) Not on file 12/23/2023 Utilities Answer Date Recorded Do you have trouble paying y our heating, water, or electric bill? No 12/23/2023 Is your family able to pay t he heat, water, or electric bill? (Household - for ages 0-17 years) Not on file 12/23/2023 Does your family have access to good internet? (Household - for ages 0-17 years) Not on file 12/23/2023 Employment Status Answer Date Recorded Are you unemployed or without regular income? No 12/23/2023 Does the [facility] have a [facility] source [facility] income? (Household - for ages 0-17 years) Not on file 12/23/2023 Social Connections Answer Date Recorded How often do you feel lonely or isolated from th ose around you? Never 12/23/2023 Financial Resource Strain Answer Date R ecorded Do you have any trouble payi ng for your medications, or do you think you might in the future? No 12/23/2023 Does your family have troubl e paying for medicine? (Household - for ages 0-17 years) Not on file 12/23/2023 Transportation Needs Answer Date Record ed Do you have trouble getting a ride to medical visits or work? (Adult - for ages 18 years and over) Not on file 12/23/2023 Does your family have a hard time getting a ride to doctors visits? (Household - for ages 0-17 years) Not on file 12/23/2023 Has lack of transportation k ept you from medical appointments, meetings, work, or from getting things needed for daily living? Check all that apply. No 12/23/2023 Do you (or your family) have trouble finding or paying for a ride (transportation)? (Household - for ages 0-17 years) Not on file 12/23/2023 Housing Stability Answer Date Recorded Do you currently live in a s helter or have no steady place to sleep at night? No 12/23/2023 Do you think you are at risk of becoming homeless? (Adult - for ages 18 years and over) Not on file 12/23/2023 Does your family worry about paying for your home or becoming homeless? (Household - for ages 0-17 years) Not on file 1 Are you homeless or worried that you might be in the future? No 12/23/2023 Are you (or your family) ji eless or worried that you might be in the future? (Household - for ages 0-17 years) Not on file Food Insecurity Answer Date Recorded Do you need food for this week? Yes 12/23/2023 Are you able to get enough f ood for your family? (Household - for ages 0-17 years) Not on file 12/23/2023 Does your family need food t his week? (Household - for ages 0-17 years) Not on file 12/23/2023 Do you always have enough fo od for your family? (Household - for ages 0-17 years) Not on file 12/23/2023 Comments No Sex and Gender Information Value Date Recorded Sex Assigned at Not on file Legal Sex Female 5:26 AM EST Gender Identity Not on file Sexual Orientation Straight 05/30/2020 11 :18 AM EDT Occupation Industry Job Start Date Job End Date NA Not on file Not on file Not on file documented as of this encounter Functional Status * Are you deaf or do you have serious difficulty hearing? Answer Date of Assessment Author No 09/21/2023 5:37 AM EDT Narciso Huizar RN * Are you blind or do you have serious difficulty seeing, even when wearing glasses? Answer Date of Assessment Author No 09/21/2023 5:37 AM Narciso Reynoso RN * Do you have serious difficulty walking or climbing stairs? (5 years old or older) Answer Date of Assessment Author Yes 09/21/2023 5:37 AM Narciso Reynoso RN * Do you have difficulty dressing or bathing? (5 years old or older) Answer Date of Assessment Author No 09/21/2023 5:37 AM EDT Narciso Huizar RN * Because of a physical, mental, or emotional condition, do you have difficulty doing errands alone such as visiting a doctors office or shopping? (15 years old or older) Answer Date of Assessment Author No 09/21/2023 5:37 AM EDNarciso Hartley RN documented as of this encounter Mental Status * Because of a physical, mental, or emotional condition, do you have serious difficulty concentrating, remembering, or making decisions? 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 She states she is having a difficult time taking a deep breath in and feels like her heart is racing. Symptoms kept her awake through the night. Denies chest pain. She took an Ativan as she thought it was anxiety but does not feel any improvement in her symptoms. Her son is on the way to pick her up to transport to the ED for further evaluation. Follow up call scheduled for 01/07. documented in this encounter Plan of Treatment Upcoming Encounters Date Type Department Care Team (Late st Contact Info) Description 01/08/2024 10:00 AM EST Scheduled Telephone [facility] at [facility] [address] [facility] [place] [address] [facility], Nurse [place] [address] [place] [id number] 01/11/2024 2:30 PM EST [facility] [address] [place] [address] Drea Candelario RN [address] [facility] [place] [phone] 01/24/2024 8:30 AM EST Cardiac Studies Cardiology [address] [place] [address] Lucia Jimenez [facility] [address] [place] [address] 02/02/2024 2:30 PM EST Office Visit Hematology/Oncology [facility] [address] [place] [phone] Mirna Camp CRNP [address] [facility] [place] [phone] 02/14/2024 1:30 PM EST Office Visit Cardiology, [facility] [address] [place] [address] Jane Ashley CRNP [address] [facility] [place] [address] 05/15/2024 1:00 PM EDT Office Visit Nephrology [address] [place] [address] Charlotte Cope PA-C [address] [facility] [place] [address] 06/06/2024 3:20 PM EDT Office Visit Family Medicine [address] [place] [phone] Cathy Wilburn MD [address] [place] [address] [place] [phone] 06/29/2024 2:30 PM EDT Office Visit Rheumatology [address] [place] [phone] Vidhi Chavis CRNP [address] [place] [address] [place] [address] 08/29/2024 3:00 PM EDT Office Visit Nephrology [address] [place] [address] Josie Butler MD [address] [facility] [place] [address] Health Maintenance Due Date Last Done Comments Adult Wellness Visit 05/30/2021 05/30/2020 DXA Scan 10/22/2023 10/21/2021, 09/29, 08/28/2018, Additional history exists COVID-19 Vaccine ( season) 2023 CKD PHOS USE SMARTSET 68901 08/16/202407/29, 05/12/2023, 11/05/2022, Additional history exists Albumin/Creatinine Ratio 08/24/2024 024, 07/19/2022, 04/06/2021, Additional history exists Depression Monitoring 08/24/2024 08/25/2023 DIG LEVEL FOR MEDICATION MONITORING YEARLY 09/20/2024 09/21/2023, 06/22/2023, 04/29/2023, Additional history exists CKD HGB USE SMARTSET 72380 12/13/202412/13, 12/07/2023, 10/28/2023, Additional history exists DTap/Tdap Vaccines (2 - Td or Tdap) 12/31/2029 01/01/2020 (Declined), 12/30/2009, 12/30/2009, Additional history exists Pneumococcal Vaccine: 65+ Years Completed 02/08/2017, 02/23/2006 VITAMIN D LEVEL ONCE IN A LIFETIME-USE SMARTSET# [id number] Completed 08/17/2023, 06/27/2023, 06/22/2023, Additional history exists [...] this encounter Medical Devices Implanted Type Area Tree Warden Device Identifier Shelf Expiration Date Model / Serial / Lot Lead Novus Bipolar 58cm - [id number] - [id number] Implanted:Qty: 1 on 04/11/2017 by Elda Patterson DO at OR [facility] Left: Heart [employer] : [facility] 12/18/2018 5076-58 / [id number] / Description:RIGHT VENTRICLE LEAD Lead Novus Bipolar 52cm - [id number] - [id number] Implanted:Qty: 1 on 04/11/2017 by Elda Patterson DO at OR [facility] Left: Heart [employer] : [facility] 12/24/2018 5076-52 / [id number] / Description:RIGHT ATRIAL ROCKY D Pacer Advisa Dr Dorsey - [id number] - [id number] Implanted:Qty: 1 on 04/11/2017 by Elda Patterson DO at OR [facility] Left: Chest [employer] 08/25/2018 [id number] / [id number] / documented as of this encounter Advance Directives Documents on File Type Date Recorded Patient Customer Success Intern Expl anation POLST 01/05/2021 [place] [facility] FOR LIFE-SUSTAINING TREATMENT * Full Code [...] 9:35 AM 07/03/2008 5:40 PM Care Teams Industrial Service Technician Relationship Specialty Start Date End Date Cathy Wilburn MD [address] [place] [address] [place] [phone] PCP - General Family Medicine 12/03/22 documented as of this encounter
--- OUTSIDE RECORDS SUMMARY | 2024-01-07 09:40 | External Medical Summary | Summary of Care ---
Author Name Unknown Organization [facility] Address [address] [place] [address] Phone [phone] Care Team Providers Care Licensed Psychiatric Technician Name Role Phone Cathy Wilburn MD Primary Care Provide r Reason for Visit * Reason Onset Date Comments Appointment 12/29/2023 Encounter Details Date Type Department Care Team (Late st Contact Info) Description 12/29/2023 Telephone [facility] [place] [address] [place], [place] [id number] Shena Deleon, MARTI [address], [place] [phone] Appointment Allergies Active Allergy Reactions Criticality Noted [...] as of this encounter (statuses as of 12/29/2023) Medications Medication Sig Dispensed Refills Start Date End Date Status Acetaminophen 325 MG Oral Tablet (Tylenol) Take by mouth 2 Tablets every 4 hours as needed for Fever >38C(100.5F), Pain, Mild, Pain, Moderate or Pain, Severe. 100 Tablet 1 2021 Active Atorvastatin Calcium 40 MG Oral Tablet (Lipitor)Indication s:Atherosclerosis of [place]re[place] coronary artery of [place] heart without angina pectoris,Dyslipidem ia, goal LDL [...] AND TUESDAY 30 Tablet 11 07/06/2023 Active Bladder Control Pads Ex Absorb Use [...] AT BEDTIME 180 Tablet 1 10/26/2023 Active Potassium Chloride ER 10 MEQ Oral Capsule Extended ReleaseIndications: Chronic diastolic heart failure (HCC) TAKE ONE CAPSULE IN THE MORNING 30 Capsule 2 11/23/2023 Active Ferrous Sulfate 325 (65 Fe) MG Oral Tablet (FeroSul) Take 1 Tablet by mouth every other day. 14 Tablet 5 11/25/2023 Active Polyethylene Glycol 3350 17 GM/SCOOP Oral Powder (MiraLax) Take 17 g by mouth in the morning. Dissolve one heaping tablespoon in 8 ounces of water or juice.. 12/07/2023 Active LORazepam 0.5 MG Oral Tablet (Ativan)Indications :Anxiety Take 0.5 Tablets by mouth daily as needed for Anxiety. 15 Tablet 12/07/2023 Active Latanoprost 0.005 % Ophthalmic Solution (Xalatan) Instill 1 Drop into both eyes at bedtime. 12/14/2023 Active Lidocaine 4 % External Patch (Aspercreme) Place 1 Patch over 12 hours topically on the skin daily. 12/14/2023 Active oxyCODONE HCl 5 MG Oral Tablet (Oxy IR)Indications:Clos ed displaced fracture of metatarsal bone of right foot with routine healing, unspecified metatarsal, subsequent encounter Take 1 Tablet by mouth every 8 hours as needed for Pain, Severe. 8 Tablet 12/20/2023 Active Hospital, Clinic, or Other Facility Administered Medication Ordered Dose Route Frequency Start Date End Date Status Denosumab (Prolia) subcut inj 60 mgIndications:Senile osteoporosis 60 mg SC [id number] 12/26/2023 06/23/2024 Active documented as of this encounter (statuses as of 12/29/2023) Active Problems Problem Noted Date Diagnosed Date Closed displaced fracture of metatarsal bone of right foot with routine healing 12/07/2023 Overview: Fractures of bases of all 5 metatarsals 11/28/23 History of hemicolectomy 09/21/2023 Glaucoma 09/20/2023 DVT, [...] Overview: basal cell carcinoma (upper central forehead) 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 stage 3b chronic kidney disease 03/06/2015 Overview: Per CKD protocol Varicose vein of leg 06/17/2012 Dyslipidemia, goal LDL below 70 10/09/2009 Anxiety state 05/02/2009 Degeneration of lumbosacral intervertebral disc 02/04/2009 Coronary atherosclerosis of fl[place] coronary luis ry 02/24/2005 Senile osteoporosis 05/14/2003 Carpal tunnel syndrome 04/23/2003 Moderate mitral regurgitation GENERAL OSTEOARTHROSIS Gastroesophageal reflux disease without esophagi tis Hyperparathyroidism, primary documented as of this encounter (statuses as of 12/29/2023) Resolved Problems Problem Noted Date Diagnosed Date Resolved Date Malignant neoplasm of colon 12/20/2023 12/26/2023 Retroperitoneal bleed 09/21/20232023 Stage 3 chronic kidney [...] 11/06/2019 03/17/2023 Acute blood loss anemia 10/22/201908/30 Peripheral edema 09/07/2019 12/26/2023 Pernicious anemia 11/22/2018 [...] 05/29/2018 Overview: mildly dysplastic nevus (R thigh) Dyslipidemia, goal [...] 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 LOC PRIM [id number] 02/14/200205/30 Other seborrheic keratosis 10/31/2001 0 06/06/2007 [...] as of this encounter (statuses as of 12/29/2023) Immunizations Name Administration Dates Next Due Pneumococcal [...] No 12/23/2023 Does the household have a re gular [...] ages 0-17 years) Not on file 12/23/2023 Sex and Gender Information Value Date Recorded [...] encounter Miscellaneous Notes * Telephone Encounter - Shena Deleon OSA - 12/29/2023 11:03 AM EDT Per TT request, reschedule 12/29 appt for pt as pt has another appt that day Called pt and rescheduled appt to 01/03@1:40; pt agreeable documented in this encounter Plan of Treatment Upcoming Encounters Date Type Department Care Team (Late st Contact Info) Description 12/30/2023 1:30 PM EDT Nurse Only Rheumatology Anuel Kendall[address] [place] [phone] [place], [address] [place] [phone] 01/04/2024 1:40 PM EST Home Visit [facility], [facility] [address] [place] [address] Gita Bae PA-C [address] [place] [address] Vonnie Robbins, [facility] Physician Assistant [address] [place] [address] 01/06/2024 2:00 PM EST Office Visit Nephrology [address] [place] [address] Charlotte Cope PA-C [address] [facility] [place] [address] 01/11/2024 12:30 PM EST Home Visit [facility], [facility] [address] [facility] [place] [address] Drea Candelario, LISET [address] [facility] [place] [address] 01/24/2024 8:30 AM EST Cardiac Studies Cardiology [address] [place] [address] Lucia Jimenez [facility] 132 [facility] [place] [address] 02/02/2024 2:30 PM EST Office Visit Hematology/Oncology [facility] [place] [address] [place] [phone] Mirna Camp CRNP [address] [place], [place] [address] [phone] 02/14/2024 1:30 PM EST Office Visit Cardiology, [facility] [address] [facility] [place] [address] Jane Ashley CRNP [address] [place] [address] 05/15/2024 1:00 PM EDT Office Visit Nephrology [address] [place] [address] Charlotte Cope PA-C [address] [place] [address] 06/06/2024 3:20 PM EDT Office Visit Family Medicine [address] [place] [phone] Cathy Wilburn MD [address] [place] [address] [place] [address] Health Maintenance Due Date Last Done Comments Adult Wellness Visit 05/30/2021 05/30/2020 DXA Scan 10/22/2023 10/21/2021, 09/29, 08/28/2018, Additional history exists COVID-19 Vaccine ( season) 2023 CKD PHOS USE SMARTSET 47809 08/16/202407/29, 05/12/2023, 11/05/2022, Additional history exists Albumin/Creatinine Ratio 08/24/2024 024, 07/19/2022, 04/06/2021, Additional history exists Depression Monitoring 08/24/2024 08/25/2023 DIG LEVEL FOR MEDICATION MONITORING YEARLY 09/20/2024 09/21/2023, 06/22/2023, 04/29/2023, Additional history exists CKD HGB USE SMARTSET 50821 12/13/202412/13, 12/07/2023, 10/28/2023, Additional history exists DTap/Tdap Vaccines (2 - Td or Tdap) 12/31/2029 01/01/2020 (Declined), 12/30/2009, 12/30/2009, Additional history exists Pneumococcal Vaccine: 65+ Years Completed 02/08/2017, 02/23/2006 VITAMIN D LEVEL ONCE IN A LIFETIME-USE SMARTSET# [id number] Completed 08/17/2023, 06/27/2023, 06/22/2023, Additional history exists [...] this encounter Medical Devices Implanted Type Area Nitro Worker Device Identifier Shelf Expiration Date Model / Serial / Lot Lead Novus Bipolar 58cm - [id number] - [id number] Implanted:Qty: 1 on 04/11/2017 by Elda Patterson DO at OR [facility] Left: Heart [employer] : [facility] 12/18/2018 5076-58 / [id number] / Description:RIGHT VENTRICLE LEAD Lead Novus Bipolar 52cm - [id number] - [id number] Implanted:Qty: 1 on 04/11/2017 by Elda Patterson DO at OR [facility] Left: Heart [employer] : [facility] 12/24/2018 5076-52 / [id number] / Description:RIGHT ATRIAL ROCKY D Pacer Advisa Dr Dorsey - [id number] - [id number] Implanted:Qty: 1 on 04/11/2017 by Elda Patterson DO at OR [facility] Left: Chest [employer] 08/25/2018 [id number] / [id number] / documented as of this encounter Advance Directives Documents on File Type Date Recorded Patient Desktop Publisher Expl anation POL 01/05/2021 [place] [facility] FOR [...] 9:35 AM 07/03/2008 5:40 PM Care Teams Licensed Psychiatric Technician Relationship Specialty Start Date End Date Cathy Wilburn MD [address] [place] [address] [place] [phone] PCP - General Family Medicine 12/03/22 documented as of this encounter
--- OUTSIDE RECORDS SUMMARY | 2024-01-07 09:40 | External Medical Summary | Summary of Care ---
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 Name Role Phone Cathy Wilburn MD Primary Care Provide r Reason for Visit * Reason Onset Date Comments Medication Administration Prolia Medication Administration 12/30/2023 Prolia * Precert (Within 10 days (routine)) - Authorized Specialty Diagnoses / Procedures Referred By Contac t Referred To Contact Rheumatology Diagnoses Age-related osteoporosis without current pathological fracture Procedures DENOSUMAB 1MG, INJ Kian Mir MD [facility] [place] [address] Referral ID Status Reason Start Date Expiration Date V isits Requested Visits Authorized [id number] Authorized Precert 07/12/2019 02/27/2099 99 [phone] Encounter Details Date Type Department Care Team (Late st Contact Info) Description 12/30/2023 1:30 PM EDT Nurse Only Rheumatology [address] [place] [id number] [place], Nurse Rheum [address] [place] [phone] Medication Administration (Prolia/); Medic... Allergies Active Allergy Reactions Criticality Noted Date [...] as of this encounter (statuses as of 12/30/2023) Medications Medication Sig Dispensed Refills Start Date End Date Status Acetaminophen 325 MG Oral Tablet (Tylenol) Take by mouth 2 Tablets every 4 hours as needed for Fever >38C(100.5F), Pain, Mild, Pain, Moderate or Pain, Severe. 100 Tablet 1 2021 Active Atorvastatin Calcium 40 MG Oral Tablet (Lipitor)Indication s:Atherosclerosis of [place] coronary artery of [place] heart without angina pectoris,Dyslipidem ia, goal [...] inj 60 mgIndications:Senile osteoporosis 60 mg SC [id number] 12/26/2023 12/30/2023 Ended documented as of this encounter (statuses as of 12/30/2023) Active Problems Problem Noted Date Diagnosed Date [...] lumbosacral intervertebral disc 02/04/2009 Coronary atherosclerosis of [place] coronary luis ry 02/24/2005 Senile osteoporosis 05/14/2003 Carpal tunnel syndrome 04/23/2003 Moderate mitral regurgitation GENERAL OSTEOARTHROSIS Gastroesophageal reflux disease without esophagi tis Hyperparathyroidism, primary documented as of this encounter (statuses as of 12/30/2023) Resolved Problems Problem Noted Date Diagnosed Date [...] 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 LOC PRIM [id number] 02/14/200205/30 Other seborrheic keratosis 10/31/2001 0 06/06/2007 [...] as of this encounter (statuses as of 12/30/2023) Immunizations Name Administration Dates Next Due Pneumococcal [...] 12/23/2023 Does the household have a re lar [...] Pressure - - Pulse - - Temperature 36.2 C (97.1 F) 12/30/2023 1:46 PM ED T Respiratory Rate - - [...] this encounter Patient Instructions * Patient Instructions* Grecia Lopez Goldie, LYNDSEY - 12/30/2023 1:47 PM EDT MEDICATION GUIDE Prolia (CO-kate-a) (denosumab) Injection Read the Medication Guide that comes with Prolia before you start taking it and each time you get arefill. There may be new information. This Medication Guide does not take the place of talking withyour doctor about your medical condition or treatment. Talk to your doctor if you have any questions about Prolia. What is the most important information I should know about Prolia? Prolia can cause serious side effects includin. Low calcium levels in your blood (hypocalcemia). Prolia may lower the calcium levels in your blood. If you have low blood calcium before you start receiving Prolia, it may get worse during treatment. Your low blood calcium must be treated before you receive Prolia. Most people with low blood calcium levels do not have symptoms, but some people may have symptoms. Call your doctor right away if you have symptoms of low blood calcium such as: Spasms, twitches, or cramps in your muscles Numbness or tingling in your fingers, toes, or around your mouth Your doctor may prescribe calcium and vitamin D to help prevent low calcium levels in your blood while you take Prolia. Take calcium and vitamin D as your doctor tells you to. 2. Serious infections. Serious infections in your skin, lower stomach area (abdomen), bladder, or ear may happen if you take Prolia. Inflammation of the inner lining of the heart (endocarditis) due to an infection also mayhappen more often in people who take Prolia. You may need to go to the hospital for treatment if you develop an infection. Prolia is a medicine that may affect your immune system. People who have weakened immune system or take medicines that affect the immune system may have an increased risk for developing serious infections. Call your doctor right away if you have any of the following symptoms of infection: Fever or chills Skin that looks red or swollen and is hot or tender to touch Severe abdominal pain Frequent or urgent need to urinate or burning feeling when you urinate 3. Skin problems. Skin problems such as inflammation of your skin (dermatitis), rash, and eczema may happen if you take Prolia. Call your doctor if you have any of the following symptoms of skin problems that do not go away or get worse: Redness Itching Small bumps or patches (rash) Your skin is dry or feels like leather Blisters that ooze or become crusty Skin peeling 4. Severe jaw bone problems (osteonecrosis). Severe jaw bone problems may happen when you take Prolia. Your doctor should examine your mouth before you start Prolia. Your doctor may tell you to see your dentist before you start Prolia. It is important for you to practice good mouth care during treatment with Prolia. Call your doctor right away if you have any of these side effects. What is Prolia? Prolia is a prescription medicine used to treat osteoporosis (thinning and weakening of bone) in women after menopause (change of life) who Have an increased risk for fractures (broken bones). Cannot use another osteoporosis medicine or other osteoporosis medicines did not work well. Who should not receive Prolia? Do not take Prolia if you have been told by your doctor that your blood calcium level is too low. What should I tell my doctor before receiving Prolia? Before taking Prolia, tell your doctor if you: Have low blood calcium. Cannot take daily calcium and vitamin D. Had parathyroid or thyroid surgery (glands located in your neck). Have been told you have trouble absorbing minerals in your stomach or intestines (malabsorptionsyndrome). Have kidney problems or are on kidney dialysis. Plan to have dental surgery or teeth removed. Are or plan to become . Prolia may harm your unborn baby. Tell your doctor right away if you become while taking Prolia. Surveillance Program: Prolia is not intended for use in women. If you become while taking Prolia, talk to your doctor about enrolling with [employer] SurveillanceProgram or call (k-938-72-CastingDB). The purpose of this program is to collect information about women who have become while taking Prolia. Are breast-feeding or plan to breast-feed. It is not known if Prolia passes into your breast milk. You and your doctor should decide if you will take Prolia or breast-feed. You should not do both. Tell your doctor about all the medicines you take, including prescription and nonprescription drugs, vitamins, and herbal supplements. Know the medicines you take. Keep a list of medicines with you to show to your doctor or pharmacistwhen you get a new medicine. How will I receive Prolia? Prolia is an injection that will be given to you by a healthcare professional. Prolia is injected under your skin (subcutaneous). You will receive Prolia 1 time every 6 months. You should take calcium and vitamin D as your doctor tells you to while you receive Prolia. If you miss a dose of Prolia, you should receive your injection as soon as you can. Take good care of your teeth and gums while you receive Prolia. [place] and floss your teeth regularly. Tell your dentist that you are receiving Prolia before you have dental work. What are the possible side effects of Prolia? Prolia may cause serious side effects. See What is the most important information I should know about Prolia? Long-term effects on bone: It is not known if the use of Prolia over a long period of time may cause slow healing of broken bones or unusual fractures. The most common side effects of Prolia are: Back pain Pain in your arms and legs High cholesterol Muscle pain Bladder infection These are not all the possible side effects of Prolia. For more information, ask your doctor or pharmacist. Call your doctor for medical advice about side effects. You may report side effects to FDA at 7-445-XTB-2668. How should I handle Prolia if I need to pick it up from a pharmacy? Keep Prolia in a refrigerator at 36F to 46F (2C to 8C) in the original carton. Do not freeze Prolia. When you remove Prolia from the refrigerator, Prolia must be kept at room temperature [up to 77F (25C)] in the original carton and must be used within 14 days. Do not keep Prolia at temperatures above 77F (25C). Warm temperatures will affect how Prolia works. Do not shake Prolia. Keep Prolia in the original carton to protect from light. Keep Prolia and all medicines out of reach of children. General information about Prolia Do not give Prolia to other people even if they have the same symptoms that you have. It may harm them. This Medication Guide summarizes the most important information about Prolia. If you would like more information, talk with your doctor. You can ask your doctor or pharmacist for information about Prolia that is written for health professionals. For more information, go to www.[employer] or call [employer] at . What are the ingredients in Prolia? Active ingredient: denosumab Inactive ingredients: sorbitol, acetate, polysorbate 20 (prefilled syringe only), Water for Injection (FDC), and sodium hydroxide What is osteoporosis? Osteoporosis is a disease in which the bones become thin and weak, increasing the chance of having a broken bone. Osteoporosis usually causes no symptoms until a fracture happens. The most common fractures are in the spine (backbone). They can shorten height, even without causing pain. Over time, the spine can become curved or deformed and the body bent over. Fractures from osteoporosis can also happen in almost any bone in the body, for example: the wrist, rib, or hip. Once you have had a fracture, the chance for more fractures greatly increases. The following risk factors increase your chance of getting fractures from osteoporosis: Past broken bones from osteoporosis Very low bone mineral density (BMD) Frequent falls Limited movement, such as using a wheelchair Medical conditions likely to cause bone loss, such as some kinds of arthritis Taking steroid medicines called glucocorticoids, such as prednisone Other medicines that may cause bone loss, for example: seizure medicines (such as phenytoin), blood thinners (such as heparin), high doses of vitamin A What can I do to treat osteoporosis? There are many steps you can take to treat osteoporosis. Taking Prolia, along with calcium and vitamin D, may be one option for you. [employer] a [employer] of [employer] [place], [place] [address] This Medication Guide has been approved by the [place] Food and Drug Administration. 1xxxxxx - v1 Issued: 07/2009 documented in this encounter Progress Notes * Grecia Lopez LPN - 12/30/2023 1:47 PM EDT Miranda Coe presents today for administration of Prolia. She understands the benefits and risks of this treatment. An educational pamphlet was given to the patient. Prolia 60 mg was administered subcutaneously. The patient tolerated the procedure without problems. She will return in 6 months for the next injection and evaluation. Grecia Lopez LPN documented in this encounter Nursing Notes * Grecia Lopez LPN - 12/30/2023 1:45 PM EDT Chief Complaint Patient presents with Medication Administration Prolia Patient denies being on any antibiotics, no current infections, no upcoming surgeries or dental procedures, no open wounds or sores, no current fractures. documented in this encounter Plan of Treatment Upcoming Encounters Date Type Department Care Team (Late st Contact Info) Description 01/04/2024 1:40 PM EST Home Visit [facility] [place], [facility] [address] [facility] [place] [place] [address] Gita Bae PA-C [address] [facility] [facility] [place] [address] Vonnie Robbins, [facility] [address] [place] [address] 01/06/2024 2:00 PM EST Office Visit Nephrology [address] [place] [address] Charlotte Cope PA-C [address] [facility] [place] [address] 01/11/2024 12:30 PM EST Home Visit [facility], [facility] [address] [place] [address] Drea Candelario, RN [address] [facility] [place] [address] 01/24/2024 8:30 AM EST Cardiac Studies Cardiology [address] [place] [address] [facility] 132 [facility] [place] [address] 02/02/2024 2:30 PM EST Office Visit Hematology/Oncology [facility] [address] [facility] [place] [phone] Mirna Camp CRNP [address] [facility] [place] [address] 02/14/2024 1:30 PM EST Office Visit Cardiology, [facility] [address] [facility] [place] [address] Jane Ashley CRNP [address] [facility] [place], [place] [id number] 05/15/2024 1:00 PM EDT Office Visit Nephrology [address] [place] [address] Charlotte Cope PA-C [address] [facility] [place] [address] 06/06/2024 3:20 PM EDT Office Visit Family Medicine [address] [place] [phone] Cathy Wilburn MD [address] [place] [address] [place] [address] 06/29/2024 2:30 PM EDT Office Visit Rheumatology [address] [place] [phone] Vidhi Chavis CRNP [address] [place] [address] [place] [address] Health Maintenance Due Date Last Done Comments Adult Wellness Visit 05/30/2021 05/30/2020 DXA Scan 10/22/2023 10/21/2021, 09/29, 08/28/2018, Additional history exists COVID-19 Vaccine ( season) 2023 CKD PHOS USE SMARTSET 32464 08/16/202407/29, 05/12/2023, 11/05/2022, Additional history exists Albumin/Creatinine Ratio 08/24/2024 024, 07/19/2022, 04/06/2021, Additional history exists Depression Monitoring 08/24/2024 08/25/2023 DIG LEVEL FOR MEDICATION MONITORING YEARLY 09/20/2024 09/21/2023, 06/22/2023, 04/29/2023, Additional history exists CKD HGB USE SMARTSET 29657 12/13/202412/13, 12/07/2023, 10/28/2023, Additional history exists DTap/Tdap Vaccines (2 - Td or Tdap) 12/31/2029 01/01/2020 (Declined), 12/30/2009, 12/30/2009, Additional history exists Pneumococcal Vaccine: 65+ Years Completed 02/08/2017, 02/23/2006 VITAMIN D LEVEL ONCE IN A LIFETIME-USE SMARTSET# [id number] Completed 08/17/2023, 06/27/2023, 06/22/2023, Additional history exists [...] this encounter Medical Devices Implanted Type Area 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 Device Identifier Shelf Expiration Date Model / Serial / Lot Lead Novus Bipolar 58cm - [id number] - [id number] Implanted:Qty: 1 on 04/11/2017 by Elda Patterson DO at OR [facility] Left: Heart [employer] : CRM 12/18/2018 5076-58 / [id number] / Description:RIGHT VENTRICLE LEAD Lead Novus Bipolar 52cm - [id number] - [id number] Implanted:Qty: 1 on 04/11/2017 by Elda Patterson DO at OR [facility] Left: Heart [employer] : CRM 12/24/2018 5076-52 / [id number] / Description:RIGHT ATRIAL ROCKY D Pacer Advisa Dr Dorsey - [id number] - [id number] Implanted:Qty: 1 on 04/11/2017 by Elda Patterson DO at OR [facility] Left: Chest [employer] 08/25/2018 [id number] / [id number] / documented as of this encounter Visit Diagnoses Diagnosis Senile osteoporosis- Primary documented in this encounter Administered Medications Inactive Administered Medications - up to 3 most recent administrations Medication Order MAR Action Action Date Dose Rate Site Denosumab (Prolia) subcut inj 60 mg 60 mg, Subcutaneous, [id number], First dose on Tue12/26/23 at 1415, Last dose on Tue12/26/23 at 1415, For 1 dose Given 12/30/2023 1:49 PM EDT 60 mg Arm Right Upper documented in this encounter Advance Directives Documents on File Type Date Recorded 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
--- OUTSIDE RECORDS SUMMARY | 2024-01-07 09:40 | External Medical Summary | Summary of Care ---
Author Name Unknown Organization [facility] Address [address] [place] [facility] [place] [address] Phone [phone] Care Team Providers Care Network Relay Tester Name Role Phone Cathy Wilburn MD Primary Care Provide r Encounter Details Date Type Department Care Team (Late st Contact Info) Description 12/28/2023 2:00 PM EDT Home Visit [facility], [facility] [address] [place] [address] Drea Candelario, LISET [address] [place] [address] Allergies Active Allergy Reactions Criticality Noted Date [...] 40 MG Oral Tablet (Lipitor)Indication s:Atherosclerosis of [place] coronary artery of [place] heart without angina pectoris,Dyslipidem ia, goal LDL [...] inj 60 mgIndications:Senile osteoporosis 60 mg SC [id number] 12/26/2023 06/23/2024 Active documented as of this [...] lumbosacral intervertebral disc 02/04/2009 Coronary atherosclerosis of [place] coronary luis ry 02/24/2005 Senile osteoporosis 05/14/2003 Carpal tunnel syndrome 04/23/2003 Moderate mitral regurgitation GENERAL OSTEOARTHROSIS Gastroesophageal reflux disease without esophagi tis Hyperparathyroidism, primary documented as of this encounter (statuses as of 12/29/2023) Resolved Problems Problem Noted Date Diagnosed Date Resolved Date Malignant neoplasm of colon 12/20/2023 12/26/2023 Retroperitoneal bleed 09/21/2023 07/31/ 2024 Stage 3 chronic kidney disease 03/17/2023 04/14/2023 [...] 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 LOC PRIM [id number] 02/14/200205/30 Other seborrheic keratosis 10/31/2001 0 06/06/2007 [...] Sign Reading Time Taken Comments Blood Pressure 126/74 12/28/2023 1:26 PM EDT Pulse 84 12/28/2023 1:26 PM EDT Temperature 37.2 C (98.9 F) 12/28/2023 1:26 PM ED T Respiratory Rate 18 12/28/2023 1:26 PM EDT Oxygen Saturation 97% 12/28/2023 1:26 PM EDT Inhaled Oxygen Concentration - - Weight - [...] as of this encounter Progress Notes * Drea Candelario RN - 12/28/2023 12:59 PM EDT Current Concerns: Patient seen for RACHEL#2- Recent admission to [facility] on 9/30/24 because of fall with fractures of the bases of all five right metatarsals. Admitted to [facility] on 12/06/2023. Discharge home 12/19. PMH of PAF on Eliquis, h/o DVT and PE on Eliquis as above, h/o retroperitoneal bleed in August of 2023, CAD, h/o colon cancer s/p hemicolectomy, hypertension, stage 3b CKD, dyslipidemia, GERD, primary hyperparathyroidism, osteoporosis, MARTI on nocturnal oxygen, iron deficiency, s/p pacemaker, chronic combined systolic and diastolic CHF, depression,anxiety Reports feeling better. Sob/wheeze resolved. No chest xray completed- not indicated at this time VS wnl Lungs clear but diminished Sob with exertion Non pitting edema BLE Voiding without difficulty Bowels wnl- per report Appetite fair Taking fluids well Physical Exam: Physical Exam Constitutional: Appearance: Normal appearance. Cardiovascular: Rate and Rhythm: Normal rate. Rhythm irregular. Pulses: Normal pulses. Pulmonary: Effort: Pulmonary effort is normal. Breath sounds: Normal breath sounds. Abdominal: General: Bowel sounds are normal. Palpations: Abdomen is soft. Musculoskeletal: General: Normal range of motion. Right lower leg: Edema present. Left lower leg: Edema present. Skin: General: Skin is warm and dry. Capillary Refill: Capillary refill takes 2 to 3 seconds. Neurological: General: No focal deficit present. Mental Status: She is alert and oriented to person, place, and time. Psychiatric: Mood and Affect: Mood normal. Behavior: Behavior normal. Review of Systems: Review of Systems Constitutional: Negative. Respiratory: Negative. Cardiovascular: Positive for leg swelling. Gastrointestinal: Negative. Genitourinary: Negative. Musculoskeletal: Positive for gait problem. Skin: Negative. Hematological: Bruises/bleeds easily. Psychiatric/Behavioral: Negative. Care Plan Goal Progress: Patient will demonstrate optimal balance of rest/activity. (Progressing) Start: 12/28/23 Expected End: 04/26/24 Patient will maintain optimal mobility & activity level. (Progressing) Start: 12/28/23 Expected End: 04/26/24 Patient will remain free of falls. (Progressing) Start: 12/28/23 Expected End: 04/26/24 Patient will maintain management & treatment regimen (Progressing) Start: 12/28/23 Expected End: 04/26/24 Patient will have improved cardiac output. (Progressing) Start: 12/28/23 Expected End: 04/26/24 GS - Patient/caregiver will verbalize ways to manage falls during cancer treatment. (Progressing) Start: 12/28/23 Expected End: 04/26/24 GS - Patient will have a safe environment/required durable medical equipment to prevent falls or injury (Progressing) Start: 12/28/23 Expected End: 04/26/24 Patient will achieve & maintain effective breathing pattern. (Progressing) Start: 12/28/23 Expected End: 04/26/24 Orders Placed: No orders of the defined types were placed in this encounter. Medications Given: Care Gaps: Care Gaps Care gaps closed this contact:: Education (12/28/23 1352) Type of Advanced Care Collaborative: Advance directive discussed and supplied (12/28/23 135) Type of education: Clinical/disease (12/28/23 [facility]) documented in this encounter Plan of Treatment Upcoming Encounters Date Type Department Care Team (Late st Contact Info) Description 12/30/2023 1:30 PM EDT Nurse Only Rheumatology [address] [place] [phone] [place], Nurse [address] [place] [phone] 01/04/2024 1:40 PM EST Home Visit [facility], [place] [address] [place] [address] Giat Bae PA-C [address] [facility] [address] Vonnie Robbins, Community Health Drop Wire Hanger [address] [facility] [place] [address] 01/06/2024 2:00 PM EST Office Visit Nephrology [address] [place] [address] Charlotte Cope PA-C [address] [place] [address] 01/11/2024 12:30 PM EST [facility] Visit [facility], [facility] 132 [facility] [place] [address] Drea Candelario, RN 132 [facility] [place] [address] 01/24/2024 8:30 AM EST Cardiac Studies Cardiology [address] [place] [address] [facility] 132 [facility] [place] [address] 02/02/2024 2:30 PM EST Office Visit Hematology/Oncology [facility] [address] [place] [phone] Mirna Camp CRNP 400 [place] [address] 02/14/2024 1:30 PM EST Office Visit Cardiology, [facility] 132 [facility] [address] Jane Ashley CRNP 400 [facility] [place] [address] 05/15/2024 1:00 PM EDT Office Visit Nephrology [address] [place] [address] Charlotte Cope PA-C [address] [place] [address] 06/06/2024 3:20 PM EDT Office Visit Family Medicine [address] [place] [phone] Cathy Wilburn MD [address] [place] [address] [place] [address] Health Maintenance Due Date Last Done Comments Adult Wellness Visit 05/30/2021 05/30/2020 DXA Scan 10/22/2023 10/21/2021, 09/29, 08/28/2018, Additional history exists COVID-19 Vaccine ( season) 2023 CKD PHOS USE SMARTSET 29673 08/16/202407/29, 05/12/2023, 11/05/2022, Additional history exists Albumin/Creatinine Ratio 08/24/2024 024, 07/19/2022, 04/06/2021, Additional history exists Depression Monitoring 08/24/2024 08/25/2023 DIG LEVEL FOR MEDICATION MONITORING YEARLY 09/20/2024 09/21/2023, 06/22/2023, 04/29/2023, Additional history exists CKD HGB USE SMARTSET 18928 12/13/202412/13, 12/07/2023, 10/28/2023, Additional history exists DTap/Tdap Vaccines (2 - Td or Tdap) 12/31/2029 01/01/2020 (Declined), 12/30/2009, 12/30/2009, Additional history exists Pneumococcal Vaccine: 65+ Years Completed 02/08/2017, 02/23/2006 VITAMIN D LEVEL ONCE IN A LIFETIME-USE SMARTSET# 07578 Completed 08/17/2023, 06/27/2023, 06/22/2023, Additional history exists [...] this encounter Medical Devices Implanted Type Area Blind Installer Device Identifier Shelf Expiration Date Model / Serial / Lot Lead Novus Bipolar 58cm - [id number] - [id number] Implanted:Qty: 1 on 04/11/2017 by Zazzali, Elda Eve, DO at OR [facility] Left: Heart [employer] : [facility] 12/18/2018 5076-58 / [id number] / Description:RIGHT VENTRICLE LEAD Lead Novus Bipolar 52cm - [id number] - [id number] Implanted:Qty: 1 on 04/11/2017 by Elda Patterson, DO at OR [facility] Left: Heart [employer] : [facility] 12/24/2018 5076-52 / [id number] / Description:RIGHT ATRIAL ROCKY D Pacer Advisa Dr Dorsey - [id number] - [id number] Implanted:Qty: 1 on 04/11/2017 by Elda Patterson, DO at OR [facility] Left: Chest [employer] 08/25/2018 A2DR01 / [id number] / documented as of this encounter Advance Directives Documents on File Type Date Recorded Patient Hemodialysis Technician Expl anation POLST 01/05/2021 [place] OR [facility] FOR LIFE-SUSTAINING TREATMENT * Full Code [...] 9:35 AM 07/03/2008 5:40 PM Care Teams Network Relay Tester Relationship Specialty Start Date End Date Cathy Wilburn MD [address] [place] [address] [place] [phone] PCP - General Family Medicine 12/03/22 documented as of this encounter
--- OUTSIDE RECORDS SUMMARY | 2024-01-07 09:40 | External Medical Summary | Summary of Care ---
Author Name Unknown Organization [facility] Address [address] [place] [address] Phone [phone] Care Team Providers Care Blocking Machine Operator Second Name Role Phone Cathy Wilburn MD Primary Care Provide r Reason for Visit * Reason Onset Date Comments Home Health 10/03/2023 Encounter Details Date Type Department Care Team (Late st Contact Info) Description 10/03/[address] [phone] Cathy Wilburn MD [address] [place] [address] [place] [address] Home Health Allergies Active Allergy [...] as of this encounter (statuses as of 01/02/2024) Medications Medication Sig Dispensed Refills Start Date End Date Status Acetaminophen 325 MG Oral Tablet (Tylenol) Take by mouth 2 Tablets every 4 hours as needed for Fever >38C(100.5F), Pain, Mild, Pain, Moderate or Pain, Severe. 100 Tablet 1 2021 Active Atorvastatin Calcium 40 MG Oral Tablet (Lipitor)Indications :Atherosclerosis of [place] coronary artery of [place] heart without angina pectoris,Dyslipidemi a, goal LDL [...] before bedtime. 60 Tablet 2 09/30/2023 Active documented as of this encounter (statuses as of 01/02/2024) Active Problems Problem Noted Date Diagnosed Date [...] as of this encounter (statuses as of 01/02/2024) Resolved Problems Problem Noted Date Diagnosed Date [...] 05/22/2020 Atypical chest pain 06/19/2015 06/03/19 17 04/24/2015 02/08/2017 Kidney disease, chronic, sta ge [...] 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 LOC PRIM [id number] 02/14/200205/30 Other seborrheic keratosis 10/31/2001 0 06/06/2007 [...] as of this encounter (statuses as of 01/02/2024) Immunizations Name Administration Dates Next Due Pneumococcal [...] No 12/23/2023 Does the household have a [facility] source of income? (Household - for [...] encounter Miscellaneous Notes * Telephone Encounter - Laura Marquez LPN - 10/03/2023 2:04 PM EDT Zoraida calling from [facility]. Will be putting the patient on hold for 2 weeks while she goes and see's her daughter. They will resume once she comes back. Patient never got a hospital discharge appointment. She will be leaving or Tuesday of this week. Called patient. Placed with Ceci JACOBSEN on 10/03 @ 11 a.m. for hosp. Discharge. documented in this encounter Plan of Treatment Upcoming Encounters Date Type Department Care Team (Late st Contact Info) Description 01/04/2024 1:40 PM EST [facility] Visit [facility], [facility] [address] [place] [address] Gita Bae PA-C [address] [place] [address] Vonnie Robbins, Community Health Ergonomics Consultant [address] [place] [address] 01/06/2024 2:00 PM EST Office Visit Nephrology [address] [place] [address] Charlotte Cope PA-C 200 [facility] [place] [address] 01/11/2024 2:30 PM EST [facility] Visit [facility], [facility] 132 [facility] [place] [address] Drea Candelario RN 132 [facility] [place] [address] 01/24/2024 8:30 AM EST Cardiac Studies Cardiology [address] [place] [address] Lucia Jimenez [facility] 132 [facility] [place] [address] 02/02/2024 2:30 PM EST Office Visit Hematology/Oncology [facility] [place] [address] [place] [phone] Mirna Camp CRNP [address] [place] [address] 02/14/2024 1:30 PM EST Office Visit Cardiology, [facility] [address] [place] [address] Jane Ashley CRNP [address] [place] [address] 05/15/2024 1:00 PM EDT Office Visit Nephrology [address] [place] [address] Charlotte Cope PA-C 200 [facility] [place], [place] [address] 06/06/2024 3:20 PM EDT Office Visit Family Medicine [address] [place] [phone] Cathy Wilburn MD [address] [place] [address] [place] [address] 06/29/2024 2:30 PM EDT Office Visit Rheumatology [address] [place] [phone] Vidhi Chavis CRNP [address] [place] [address] Health Maintenance Due Date Last Done Comments Adult Wellness Visit 05/30/2021 05/30/2020 DXA Scan 10/22/2023 10/21/2021, 09/29, 08/28/2018, Additional history exists COVID-19 Vaccine ( season) 2023 CKD PHOS USE SMARTSET 90207 08/16/202407/29, 05/12/2023, 11/05/2022, Additional history exists Albumin/Creatinine Ratio 08/24/2024 024, 07/19/2022, 04/06/2021, Additional history exists Depression Monitoring 08/24/2024 08/25/2023 DIG LEVEL FOR MEDICATION MONITORING YEARLY 09/20/2024 09/21/2023, 06/22/2023, 04/29/2023, Additional history exists CKD HGB USE SMARTSET 85567 12/13/202412/13, 12/07/2023, 10/28/2023, Additional history exists DTap/Tdap Vaccines (2 - Td or Tdap) 12/31/2029 01/01/2020 (Declined), 12/30/2009, 12/30/2009, Additional history exists Pneumococcal Vaccine: 65+ Years Completed 02/08/2017, 02/23/2006 VITAMIN D LEVEL ONCE IN A LIFETIME-USE SMARTSET# 32002 Completed 08/17/2023, 06/27/2023, 06/22/2023, Additional history exists [...] this encounter Medical Devices Implanted Type Area Lamp Replacer Device Identifier Shelf Expiration Date Model / Serial / Lot Lead Novus Bipolar 58cm - [id number] - [id number] Implanted:Qty: 1 on 04/11/2017 by Elda Patterson DO at [facility] Left: Heart [employer] : [place] 12/18/2018 5076-58 / [id number] / Description:RIGHT VENTRICLE LEAD Lead Novus Bipolar 52cm - [id number] - [id number] Implanted:Qty: 1 on 04/11/2017 by Elda Patterson DO at OR [facility] Left: Heart [employer] : CRM 12/24/2018 5076-52 / [id number] / Description:RIGHT ATRIAL ROCKY D Pacer Advisa Dr Dorsey - [id number] - [id number] Implanted:Qty: 1 on 04/11/2017 by Elda Patterson DO at OR [facility] Left: Chest [employer] 08/25/2018 A2DR01 / [id number] / documented as of this encounter Advance Directives Documents on File Type Date Recorded Patient Electorate Officer Michaela MORRIS 01/05/2021 [place] OR [place] FOR LIFE-SUSTAINING TREATMENT * Full Code (Latest [...] 9:35 AM 07/03/2008 5:40 PM Care Teams Blocking Machine Operator Second Relationship Specialty Start Date End Date Cathy Wilburn MD [address] [place] [address] [place] [address] PCP - General Family Medicine 12/03/22 documented as of this encounter
--- OUTSIDE RECORDS SUMMARY | 2024-01-07 09:40 | External Medical Summary | Summary of Care ---
Author Name Unknown Organization [facility] Address [address] [place] [address] Phone [phone] Care Team Providers Care Bridge Rigger Name Role Phone Cathy Wilburn MD Primary Care Provide r Encounter Details Date Type Department Care Team (Late st Contact Info) Description 12/29/2023 9:00 AM EDT Home Visit Care Coordination and Integration [address] [place] [address] Sonia Mccauley, Community Health Audio Visual Specialist [address] [place], [place] [id number] Allergies Active Allergy Reactions Criticality Noted Date [...] 40 MG Oral Tablet (Lipitor)Indication s:Atherosclerosis of [place] coronary artery of [place] heart without angina pectoris,Dyslipidem ia, goal LDL [...] inj 60 mgIndications:Senile osteoporosis 60 mg SC [id number] 12/26/2023 06/23/2024 Active documented as of this [...] 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 LOC PRIM [id number] 02/14/200205/30 Other seborrheic keratosis 10/31/2001 0 06/06/2007 [...] as of this encounter Progress Notes * Sonia Mccauley, Community Health Audio Visual Specialist - 12/29/2023 7:56 PM EDT Telemedicine visit: No Community Health Audio Visual Specialist (LEILA) documentation: CHW return visit per Newton Little CM requested CHW go assist pt with setting up her emergency alert system. Pt had received 2 alert systems from the same [employer]. CHW called the 800 number and spoke to a payable representative to determine why there was 2 systems. There was only supposed to be one unit and once the correct unit was identified CHW hung up from speaking to rep from [employer] and proceeded to plug int he system, wait for it to verify connection and then pushed the alert button to do a test. The system confirmed that there was a medical alert by verbally acknowledging there's an emergency detected, the system lights up red, however, then a live person is to come on to ask what the emergency is. This didn't happen and after 10 minutes of waiting, CHW again called the 800 number to speak to a rep. After over 45 minutes of being on the phone, the CHW was able to reset the system and have the device tested affirming that it was working properly. CHW questioned the rep how the extra system was to be returned to the company. The rep wasn't goingto send a return mailing label to patient to return, however, CHW explained that this was the company's mistake and the pt should not be charged to send this item back to the company. They agreed to send a shipping label for pt to return the package. During the visit the CM sent a message reminding the pt of a telehealth visit tomorrow at 2:30. Pt stated she had an appointment at 1:30 with rheumatology and that she wouldn't be able to keep the appointment for the telehealth visit. CHW passed the information on to the CHW scheduled for the visittomorrow and to the CM. Appointment was rescheduled. documented in this encounter Plan of Treatment Upcoming Encounters Date Type Department Care Team (Late st Contact Info) Description 12/30/2023 1:30 PM EDT Nurse Only Rheumatology [address] [place] [phone] [place], Nurse Rheum [address] [place] [phone] 01/04/2024 1:40 PM EST [facility] [place] [address] [place] [address] Gita Bae PA-C [address] [place] [address] Vonnie Robbins, Community Health Audio Visual Specialist [address] [place] [address] 01/06/2024 2:00 PM EST Office Visit Nephrology [address] [place] [address] Charlotte Cope PA-C 200 [facility] [place] [address] 01/11/2024 12:30 PM EST Home Visit [facility], [facility] 132 [facility] [place] [address] Drea Candelario, LISET 132 [facility] [place] [address] 01/24/2024 8:30 AM EST Cardiac Studies Cardiology [address] [place] [address] [facility] 132 [facility] [place] [address] 02/02/2024 2:30 PM EST Office Visit Hematology/Oncology [facility] [place] 200 [facility] [place] [phone] Mirna Camp CRNP [address] [place] [address] 02/14/2024 1:30 PM EST Office Visit Cardiology, [facility] 132 [facility] [place] [address] Jane Ashley CRNP [address] [place] [address] 05/15/2024 1:00 PM EDT Office Visit Nephrology [address] [place] [address] Charlotte Cope PA-C [address] [place] [address] 06/06/2024 3:20 PM EDT Office Visit Family Medicine [address] [place] [phone] Cathy Wliburn MD [address] [place] [address] [place] [address] Health Maintenance Due Date Last Done Comments Adult Wellness Visit 05/30/2021 05/30/2020 DXA Scan 10/22/2023 10/21/2021, 09/29, 08/28/2018, Additional history exists COVID-19 Vaccine ( season) 2023 CKD PHOS USE SMARTSET 51781 08/16/202407/29, 05/12/2023, 11/05/2022, Additional history exists Albumin/Creatinine Ratio 08/24/2024 024, 07/19/2022, 04/06/2021, Additional history exists Depression Monitoring 08/24/2024 08/25/2023 DIG LEVEL FOR MEDICATION MONITORING YEARLY 09/20/2024 09/21/2023, 06/22/2023, 04/29/2023, Additional history exists CKD HGB USE SMARTSET 25322 12/13/202412/13, 12/07/2023, 10/28/2023, Additional history exists DTap/Tdap Vaccines (2 - Td or Tdap) 12/31/2029 01/01/2020 (Declined), 12/30/2009, 12/30/2009, Additional history exists Pneumococcal Vaccine: 65+ Years Completed 02/08/2017, 02/23/2006 VITAMIN D LEVEL ONCE IN A LIFETIME-USE SMARTSET# 26208 Completed 08/17/2023, 06/27/2023, 06/22/2023, Additional history exists [...] encounter Medical Devices Implanted Type Area Manager Title Device Identifier Shelf Expiration Date Model / Serial / Lot Lead Novus Bipolar 58cm - [id number] - [id number] Implanted:Qty: 1 on 04/11/2017 by Elda Patterson DO at OR [facility] Left: Heart [employer] : [facility] 12/18/2018 5076-58 / [id number] / Description:RIGHT VENTRICLE LEAD Lead Novus Bipolar 52cm - [id number] - [id number] Implanted:Qty: 1 on 04/11/2017 by Elda Patterson DO at OR [facility] Left: Heart [employer] : [facility] 12/24/2018 5076-52 / [id number] / Description:RIGHT ATRIAL ROCKY D Pacer Advisa Dr Dorsey - [id number] - [id number] Implanted:Qty: 1 on 04/11/2017 by Elda Patterson DO at OR [facility] Left: Chest [employer] 08/25/2018 A2DR01 / [id number] / documented as of this encounter Advance Directives Documents on File Type Date Recorded Patient Kier Pleater Expl anation POLST 01/05/2021 [place] OR [place] FOR LIFE-SUSTAINING TREATMENT * Full Code (Latest [...] 9:35 AM 07/03/2008 5:40 PM Care Teams Bridge Rigger Relationship Specialty Start Date End Date Cathy Wilburn MD [address] [place] [address] [place] [address] PCP - General Family Medicine 12/03/22 documented as of this encounter
--- OUTSIDE RECORDS SUMMARY | 2024-01-07 09:41 | External Medical Summary | Summary of Care ---
Author Name Unknown Organization [facility] Address [address] [place] [address] Phone [phone] Care Team Providers Care Fpga Design Engineer Name Role Phone Cathy Wilburn MD Primary Care Provide r Reason for Visit * Reason Onset Date Comments Medication Question 12/21/2023 Prolia Encounter Details Date Type Department Care Team (Late st Contact Info) Description 12/21/2023 Telephone Rheumatology [facility] [address] [place] [address] Vidhi Chavis CRNP [address] [place] [address] Medication Question (Prolia) Allergies Active Allergy Reactions Criticality Noted [...] as of this encounter (statuses as of 12/26/2023) Medications Medication Sig Dispensed Refills Start Date End Date Status Acetaminophen 325 MG Oral Tablet (Tylenol) Take by mouth 2 Tablets every 4 hours as needed for Fever >38C(100.5F), Pain, Mild, Pain, Moderate or Pain, Severe. 100 Tablet 1 2021 Active Atorvastatin Calcium 40 MG Oral Tablet (Lipitor)Indication s:Atherosclerosis of little shell tribe coronary artery of [place] heart without angina pectoris,Dyslipidem ia, goal [...] for Pain, Severe. 8 Tablet 12/20/2023 Active documented as of this encounter (statuses as of 12/26/2023) Active Problems Problem Noted Date Diagnosed Date Malignant neoplasm of colon 12/20/2023 Closed displaced fracture of metatarsal bone of [...] intervertebral disc 02/04/2009 Coronary atherosclerosis of [place] coronary lusi ry 02/24/2005 Senile osteoporosis 05/14/2003 Carpal tunnel syndrome 04/23/2003 Moderate mitral regurgitation GENERAL OSTEOARTHROSIS Gastroesophageal reflux disease without esophagi tis Vitamin D deficiency Hyperparathyroidism, primary documented as of this encounter (statuses as of 12/26/2023) Resolved Problems Problem Noted Date Diagnosed Date [...] 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 LOC PRIM [id number] 02/14/200205/30 Other seborrheic keratosis 10/31/2001 0 06/06/2007 [...] as of this encounter (statuses as of 12/26/2023) Immunizations Name Administration Dates Next Due Pneumococcal Conjugate Vacc, 13 Valent (Prevnar) 02/08/2017 Pneumococcal Polysaccharide PPV23 (Pneumovax) Seasonal Influenza Vac., MDV, IM, 0.5 mL (Fluzon e) 03/13/2012 TD - Tetanus/Diptheria (ADULT) 12/30/2009,2002 TD, [...] encounter Miscellaneous Notes * Telephone Encounter - Vidhi Chavis CRNP - 12/26/2023 7:52 AM EDT Discussed with Dr. Wilburn and he will monitor. * Telephone Encounter - Grecia Lopez LPN - 12/23/2023 2:36 PM EDT Spoke with pt , "does not take Calcium" * Telephone Encounter - Vidhi Chavis CRNP - 12/23/2023 2:25 PM EDT Vitamin-D is good, kidney stable. Calcium slightly elevated okay to give Prolia. Please contact patient to decrease calcium by half. We will recheck calcium level before next Prolia in 6 months. Orders placed. * Telephone Encounter - Grecia Lopez LPN - 12/22/2023 2:44 PM EDT Can you check recent labs, ok for Prolia? * Telephone Encounter - Grecia Lopez LPN - 12/21/2023 3:21 PM EDT Any information on pt FA, has apt. 12/26/23 documented in this encounter Plan of Treatment Upcoming Encounters Date Type Department Care Team (Late st Contact Info) Description 12/26/2023 11:15 AM EDT Scheduled Telephone [facility] [address] [place] [address] Coordinator, [facility] [place] [address] 12/26/2023 2:30 PM EDT Nurse Only Rheumatology [address] [place] [phone] [place], Nurse [address] [place] [phone] 12/29/2023 2:00 PM EDT [facility], [facility] [address] [place] [address] Drea Candelario, RN [address] [place] [address] 12/30/2023 2:30 PM EDT [facility] Visit [facility], [facility] [address] [place] [address] Gita Bae PA-C [address] [place] [address] Vonnie Robbins, Community Health Leacher [address] [place] [address] 01/06/2024 2:00 PM EST Office Visit Nephrology [address] [place] [address] Charlotte Cope PA-C [address] [place] [address] 01/24/2024 8:30 AM EST Cardiac Studies Cardiology [address] [place] [address] Lucia Jimenez [facility] 132 [facility] [address] 02/02/2024 2:30 PM EST Office Visit Hematology/Oncology [facility] [address] [place] [phone] Mirna Camp CRNP [facility] [place] [address] 02/14/2024 1:30 PM EST Office Visit Cardiology, [facility] [address] [address] Jane Ashley CRNP 400 [facility] [place] [address] 05/15/2024 1:00 PM EDT Office Visit Nephrology [address] [place] [address] Charlotte Cope PA-C [address] [place] [address] 06/06/2024 3:20 PM EDT Office Visit Family Medicine [address] [place] [phone] Cathy Wilburn MD [address] [place] [address] [place] [address] Scheduled Orders Name Type Priority Associated Diagnoses Orde r Schedule CALCIUM Lab Routine Senile osteoporosis Expected: 04/02/2024, Expires: Health Maintenance Due Date Last Done Comments Adult Wellness Visit 05/30/2021 05/30/2020 DXA Scan 10/22/2023 10/21/2021, 09/29, 08/28/2018, Additional history exists COVID-19 Vaccine ( season) 2023 CKD PHOS USE SMARTSET 59948 08/16/202407/29, 05/12/2023, 11/05/2022, Additional history exists Albumin/Creatinine Ratio 08/24/2024 024, 07/19/2022, 04/06/2021, Additional history exists Depression Monitoring 08/24/2024 08/25/2023 DIG LEVEL FOR MEDICATION MONITORING YEARLY 09/20/2024 09/21/2023, 06/22/2023, 04/29/2023, Additional history exists CKD HGB USE SMARTSET 59915 12/13/202412/13, 12/07/2023, 10/28/2023, Additional history exists DTap/Tdap Vaccines (2 - Td or Tdap) 12/31/2029 01/01/2020 (Declined), 12/30/2009, 12/30/2009, Additional history exists Pneumococcal Vaccine: 65+ Years Completed 02/08/2017, 02/23/2006 VITAMIN D LEVEL ONCE IN A LIFETIME-USE SMARTSET# 41521 Completed 08/17/2023, 06/27/2023, 06/22/2023, Additional history exists [...] this encounter Medical Devices Implanted Type Area Child Welfare Social Worker Device Identifier Shelf Expiration Date Model / Serial / Lot Lead Novus Bipolar 58cm - [id number] - [id number] Implanted:Qty: 1 on 04/11/2017 by Elda Patterson DO at OR [facility] Left: Heart [employer] : [facility] 12/18/2018 5076-58 / [id number] / Description:RIGHT VENTRICLE LEAD Lead Novus Bipolar 52cm - [id number] - [id number] Implanted:Qty: 1 on 04/11/2017 by Elda Patterson DO at OR [facility] Left: Heart [employer] : [facility] 12/24/2018 5076-52 / [id number] / Description:RIGHT ATRIAL ROCKY D Pacer Advisa Dr Dorsey - [id number] - [id number] Implanted:Qty: 1 on 04/11/2017 by Elda Patterson DO at OR [facility] Left: Chest [employer] 08/25/2018 A2DR01 / [id number] / documented as of this encounter Visit Diagnoses Diagnosis Senile osteoporosis- Primary documented in this encounter Advance Directives Documents on File Type Date Recorded Patient Steward/Stewardess Bath Expl anation POLST 01/05/2021 [place] OR [facility] FOR LIFE-SUSTAINING TREATMENT * Full [...] 9:35 AM 07/03/2008 5:40 PM Care Teams Fpga Design Engineer Relationship Specialty Start Date End Date Cathy Wilburn MD [address] [place] [address] [place] [phone] PCP - General Family Medicine 12/03/22 documented as of this encounter
--- OUTSIDE RECORDS SUMMARY | 2024-01-07 09:41 | External Medical Summary | Summary of Care ---
Author Name Unknown Organization [facility] Address [address] [place] [address] Phone [phone] Care Team Providers Care Biostatistics Director Name Role Phone Cathy Wilburn MD Primary Care Provide r Encounter Details Date Type Department Care Team (Late st Contact Info) Description 12/23/2023 12:30 PM EDT [facility] [address] [place] [address] Drea Candelario, LISET [address] [place] [address] Allergies Active Allergy Reactions Criticality Noted Date [...] as of this encounter (statuses as of 12/28/2023) Medications Medication Sig Dispensed Refills Start Date End Date Status Acetaminophen 325 MG Oral Tablet (Tylenol) Take by mouth 2 Tablets every 4 hours as needed for Fever >38C(100.5F), Pain, Mild, Pain, Moderate or Pain, Severe. 100 Tablet 1 2021 Active Atorvastatin Calcium 40 MG Oral Tablet (Lipitor)Indication s:Atherosclerosis of unga coronary artery of unga heart without angina pectoris,Dyslipidem ia, goal LDL [...] as of this encounter (statuses as of 12/28/2023) Active Problems Problem Noted Date Diagnosed Date [...] lumbosacral intervertebral disc 02/04/2009 Coronary atherosclerosis of unga coronary luis ry 02/24/2005 Senile osteoporosis 05/14/2003 Carpal tunnel syndrome 04/23/2003 Moderate mitral regurgitation GENERAL OSTEOARTHROSIS Gastroesophageal reflux disease without esophagi tis Hyperparathyroidism, primary documented as of this encounter (statuses as of 12/28/2023) Resolved Problems Problem Noted Date Diagnosed Date [...] 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 LOC PRIM [id number] 02/14/200205/30 Other seborrheic keratosis 10/31/2001 0 06/06/2007 [...] as of this encounter (statuses as of 12/28/2023) Immunizations Name Administration Dates Next Due Pneumococcal [...] Reading Time Taken Comments Blood Pressure 140/78 12/23/2023 12:10 PM EDT Pulse 84 12/23/2023 12:10 PM EDT Temperature 37 C (98.6 F) 12/23/2023 12:10 PM EDT Respiratory Rate 18 12/23/2023 12:10 PM EDT Oxygen Saturation 98% 12/23/2023 12:10 PM EDT Inhaled Oxygen Concentration - - [...] Progress Notes * Drea Candelario RN - 12/23/2023 11:27 AM EDT Current Concerns: Patient seen for [facility] enrollment- Recent admission to [facility] on 11/28/23 because of fall with fractures of the bases of all five right metatarsals. Admitted to [facility] on 12/06/2023. Discharge home 12/19. Lives alone in apartment- son who lives upstairs, one local son- daughters live in [place]. All of who are supportive. PMH of PAF on Eliquis, h/o DVT and PE on Eliquis as above, h/o retroperitoneal bleed in August of 2023, CAD, h/o colon cancer s/p hemicolectomy, hypertension, stage 3b CKD, dyslipidemia, GERD, primary hyperparathyroidism, osteoporosis, MARTI on nocturnal oxygen, iron deficiency, s/p pacemaker, chronic combined systolic and diastolic CHF, depression,anxiety SDOH assessment- some food insecurity. CHW referral placed. Phone call to Deena at [facility] agency on Aging to get more help in the home- meals on wheels. Referral made. Has PCP appointment today. Friend to transport. Reports feeling ok but has pain in right foot. Wheels self in w/c throughout apartment. Taking oxycodone for pain- effectiveness noted. VS wnl Lungs diminished right/left upper lobe- clear left lower Sob with exertion Oxygen at 2l at HS Nonpitting edema to BLE Right boot intact- with transfers/ambulation Voiding without difficulty Bowels wnl- per report Appetite good Taking fluids well Med rec completed. Receives pill packs from [facility]. Epic reflects current med regimen. Physical Exam: Physical Exam Constitutional: Appearance: Normal appearance. Cardiovascular: Rate and Rhythm: Normal rate. Rhythm irregular. Pulses: Normal pulses. Pulmonary: Effort: Pulmonary effort is normal. Breath sounds: Normal breath sounds. Musculoskeletal: Right lower leg: Edema present. Skin: General: Skin is warm and dry. Capillary Refill: Capillary refill takes 2 to 3 seconds. Neurological: General: No focal deficit present. Mental Status: She is alert and oriented to person, place, and time. Review of Systems: Review of Systems Constitutional: Negative. HENT: Negative. Respiratory: Positive for shortness of breath. Cardiovascular: Positive for leg swelling. Gastrointestinal: Negative. Genitourinary: Negative. Musculoskeletal: Positive for arthralgias and gait problem. Hematological: Negative. Psychiatric/Behavioral: Negative. Care Plan Goal Progress: Patient [...] Care Gaps Care gaps closed this contact:: Education;Social determinants of health (SDOH) resources (12/28/23718) Type of education: Clinical/disease (12/28/23718) Type of SDOH resource: Food insecurity (12/28/23718) documented in this encounter Plan of Treatment Upcoming Encounters Date Type Department Care Team (Late st Contact Info) Description 12/28/2023 12:00 PM EDT Office Visit Family Medicine [address] [place] [phone] Ceci Knapp PA-C [address] [place] [address] [place] [address] 12/29/2023 2:00 PM EDT Home Visit [facility] [address] [place] [address] Drea Candelario, LISET [address] [address] 12/30/2023 1:30 PM EDT Nurse Only Rheumatology [address] [place] [phone] [place], Nurse [address] [place] [phone] 12/30/2023 2:30 PM EDT [facility] [place] [address] [facility] [place] [address] Gita Bae PA-C [address] [place] [address] Vonnie Robbins, Community Health Province Archivist [address] [place] [address] 01/06/2024 2:00 PM EST Office Visit Nephrology [address] [place] [address] Charlotte Cope PA-C [address] [place] [address] 01/24/2024 8:30 AM EST Cardiac Studies Cardiology [address] [place] [address] Lucia Jimenez [facility] 132 [facility] [place] [address] 02/02/2024 2:30 PM EST Office Visit Hematology/Oncology [facility] [address] [place] [phone] Mirna Camp CRNP 400 [facility] [place] [address] 02/14/2024 1:30 PM EST Office Visit Cardiology, [facility] 132 [facility] [place] [address] Jane Ashley CRNP 400 [facility] [place] [phone] 05/15/2024 1:00 PM EDT Office Visit Nephrology [address] [place] [address] Charlotte Cope PA-C 200 [facility] [place] [address] 06/06/2024 3:20 PM EDT Office Visit Family Medicine [address] [place] [phone] Cathy Wilburn MD [address] [place] [address] [place] [address] Health Maintenance Due Date Last Done Comments Adult Wellness Visit 05/30/2021 05/30/2020 DXA Scan 10/22/2023 10/21/2021, 09/29, 08/28/2018, Additional history exists COVID-19 Vaccine ( season) 2023 CKD PHOS USE SMARTSET 94739 08/16/202407/29, 05/12/2023, 11/05/2022, Additional history exists Albumin/Creatinine Ratio 08/24/2024 024, 07/19/2022, 04/06/2021, Additional history exists Depression Monitoring 08/24/2024 08/25/2023 DIG LEVEL FOR MEDICATION MONITORING YEARLY 09/20/2024 09/21/2023, 06/22/2023, 04/29/2023, Additional history exists CKD HGB USE SMARTSET 20668 12/13/202412/13, 12/07/2023, 10/28/2023, Additional history exists DTap/Tdap Vaccines (2 - Td or Tdap) 12/31/2029 01/01/2020 (Declined), 12/30/2009, 12/30/2009, Additional history exists Pneumococcal Vaccine: 65+ Years Completed 02/08/2017, 02/23/2006 VITAMIN D LEVEL ONCE IN A LIFETIME-USE SMARTSET# 23483 Completed 08/17/2023, 06/27/2023, 06/22/2023, Additional history exists [...] this encounter Medical Devices Implanted Type Area Building Materials Sales Attendant Device Identifier Shelf Expiration Date Model / Serial / Lot Lead Novus Bipolar 58cm - [id number] - [id number] Implanted:Qty: 1 on 04/11/2017 by Elda Patterson DO at OR [facility] Left: Heart [employer] : [facility] 12/18/2018 5076-58 / [id number] / Description:RIGHT VENTRICLE LEAD Lead Novus Bipolar 52cm - [id number] - [id number] Implanted:Qty: 1 on 04/11/2017 by Elda Patterson DO at OR [facility] Left: Heart [employer] : [facility] 12/24/2018 5076-52 / [id number] / Description:RIGHT ATRIAL ROCKY D Pacer Advisa Dr Dorsey - [id number] - [id number] Implanted:Qty: 1 on 04/11/2017 by Elda Patterson DO at OR [facility] Left: Chest [employer] 08/25/2018 A2DR01 / [id number] / documented as of this encounter Advance Directives Documents on File Type Date Recorded Patient C Software Developer Expl anation POLST 01/05/2021 [place] OR [facility] FOR LIFE-SUSTAINING TREATMENT * Full [...] 9:35 AM 07/03/2008 5:40 PM Care Teams Biostatistics Director Relationship Specialty Start Date End Date Cathy Wilburn MD [address] [place] [address] [place] [phone] PCP - General Family Medicine 12/03/22 documented as of this encounter
--- OUTSIDE RECORDS SUMMARY | 2024-01-07 09:41 | External Medical Summary | Summary of Care ---
Author Name Unknown Organization [facility] Address [address] [facility] [place] [address] Phone [phone] Care Team Providers Care Ship Pilot Dispatcher Name Role Phone Cathy Wilburn MD Primary Care Provide r Reason for Visit * Reason Onset Date Comments [facility]: Maintenance 12/26/2023 Encounter Details Date Type Department Care Team (Late st Contact Info) Description 12/26/2023 11:15 AM EDT Scheduled Telephone [facility], [facility] [address] [place] [address] Coordinator, [facility] 132 [facility] [place] [address] Allergies Active Allergy Reactions Criticality Noted Date [...] 40 MG Oral Tablet (Lipitor)Indication s:Atherosclerosis of [place] coronary artery of [place] heart without angina pectoris,Dyslipidem ia, goal LDL [...] lumbosacral intervertebral disc 02/04/2009 Coronary atherosclerosis of [place] coronary luis ry 02/24/2005 Senile osteoporosis 05/14/2003 [...] 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 LOC PRIM [id number] 02/14/200205/30 Other seborrheic keratosis 10/31/2001 0 06/06/2007 [...] encounter Miscellaneous Notes * Telephone Encounter - Vonnie Zaldivar RN - 12/26/2023 9:50 AM EDT [facility] Telephonic Nurse Follow-Up Call [facility] Subprogram: No data was found Follow Up Call Type: 48 hour follow up Acute issue requiring follow-up call: Other: follow up on SOB Objective: 12/23/2023 12:10 PM 11/16/2023 4:12 PM 10/28/2023 2:16 PM 09/28/2023 6:32 PM 09/28/2023 2:11 PM VITALS ACROSS ENCOUNTERS BP 140/78 135/80 140/78 145/65 111/53 Pulse 84 84 84 71 72 Weight 77.7 kg 76.2 kg BMI 25.28 kg/m2 24.81 kg/m2 Remote Patient Monitoring: NONE Oxygen Needs: NO supplemental oxygen needs identified DME Needs: NO DME needs identified Medications: No medication or dose adjustments made during acute episode Subjective: Condition Status: Symptoms resolved and back to baseline Current Concerns: Spoke with patient who reports, "my breathing is good." Denies increased sob, cough, wheezing. No fever or chills. Continues to use wheelchair due to weakness to prevent falling. Home PT to come later today. Pt anxious to get started with therapy to get stronger. Confirmed upcoming RNCM appt for 12/29/23. Reinforced to Call [facility] at with any new or worsening health concerns or problems, red flag symptoms. Disposition: Issue resolved. All appropriate follow up scheduled. Future Visits Scheduled: Future Appointments-next 60 days Date/Time Provider Specialty Dept Phone 12/26/2023 11:15 AM Coordinator, Devika Devi [facility] [phone] 12/29/2023 2:00 PM Drea Candelario RN [facility] [phone] 12/30/2023 1:30 PM (Arrive by 1:15 PM) Nurse Caitlyn Dee Mo Rheumatology [phone] 12/30/2023 2:30 PM Vonnie Robbins, Community Health Library Supervisor; Gita Bae PA-C [facility] [phone] 01/06/2024 2:00 PM (Arrive by 1:45 PM) Charlotte Cope PA-C Nephrology [phone] 01/24/2024 8:30 AM (Arrive by 8:15 AM) Lucia Jimenez [facility] Cardiology [phone] 02/02/2024 2:30 PM (Arrive by 2:15 PM) Mirna Camp CRNP Hematology Oncology [phone] 02/14/2024 1:30 PM (Arrive by 1:15 PM) Jane Ashley CRNP Cardiology [phone] 05/15/2024 1:00 PM (Arrive by 12:45 PM) Charlotte Cope PA-C Nephrology [phone] 06/06/2024 3:20 PM (Arrive by 3:05 PM) Cathy Wilburn MD Family Medicine [phone] Vonnie Zaldivar RN documented in this encounter Plan of Treatment Upcoming Encounters Date Type Department Care Team (Late Contact Info) Description 12/29/2023 2:00 PM EDT Home Visit [facility], [facility] [address] [place] [address] Drea Candelario, RN [address] [place] [address] 12/30/2023 1:30 PM EDT Nurse Only Rheumatology [address] [place] [phone] [place], Nurse Rheum [address] [place] [phone] 12/30/2023 2:30 PM EDT Home Visit [facility], [facility] [address] [facility] [place] [address] Gita Bae P[place]ard [address] [place] [address] Vonnie Robbins, Community Health Library Supervisor 100 [place] [address] 01/06/2024 2:00 PM EST Office Visit Nephrology [address] [place] [address] Charlotte Cope PA-C 200 [facility] [place] [address] 01/24/2024 8:30 AM EST Cardiac Studies Cardiology [address] [place] [address] Lucia Jimenez [facility] [address] [place] [address] 02/02/2024 2:30 PM EST Office Visit Hematology/Oncology [facility] [place] [facility] Page 200 [facility] [place] [phone] Mirna Camp CRNP [address] [place] [address] 02/14/2024 1:30 PM EST Office Visit Cardiology, [facility] [address] [place] [address] Jane Ashley CRNP [address] [place] [address] 05/15/2024 1:00 PM EDT Office Visit Nephrology [address] [place] [address] Charlotte Cope PA-C [address] [place] [address] 06/06/2024 3:20 PM EDT Office Visit Family Medicine [address] [place] [phone] Cathy Wilburn MD [address] [place] [address] [place] [address] Health Maintenance Due Date Last Done Comments Adult Wellness Visit 05/30/2021 05/30/2020 DXA Scan 10/22/2023 10/21/2021, 09/29, 08/28/2018, Additional history exists COVID-19 Vaccine ( season) 2023 CKD PHOS USE SMARTSET 89526 08/16/202407/29, 05/12/2023, 11/05/2022, Additional history exists Albumin/Creatinine Ratio 08/24/2024 024, 07/19/2022, 04/06/2021, Additional history exists Depression Monitoring 08/24/2024 08/25/2023 DIG LEVEL FOR MEDICATION MONITORING YEARLY 09/20/2024 09/21/2023, 06/22/2023, 04/29/2023, Additional history exists CKD HGB USE SMARTSET 08488 12/13/202412/13, 12/07/2023, 10/28/2023, Additional history exists DTap/Tdap Vaccines (2 - Td or Tdap) 12/31/2029 01/01/2020 (Declined), 12/30/2009, 12/30/2009, Additional history exists Pneumococcal Vaccine: 65+ Years Completed 02/08/2017, 02/23/2006 VITAMIN D LEVEL ONCE IN A LIFETIME-USE SMARTSET# 48779 Completed 08/17/2023, 06/27/2023, 06/22/2023, Additional history exists [...] this encounter Medical Devices Implanted Type Area Solar Tech Device Identifier Shelf Expiration Date Model / Serial / Lot Lead Novus Bipolar 58cm - [id number] - [id number] Implanted:Qty: 1 on 04/11/2017 by Elda Patterson DO at OR [facility] Left: Heart [employer] : YONATHAN 12/18/2018 5076-58 / [id number] / Description:RIGHT VENTRICLE LEAD Lead Novus Bipolar 52cm - [id number] - [id number] Implanted:Qty: 1 on 04/11/2017 by Elda Patterson DO at OR [facility] Left: Heart [employer] : YONATAHN 12/24/2018 5076-52 / [id number] / Description:RIGHT ATRIAL ROCKY D Pacer Advisa Dr Dorsey - [id number] - [id number] Implanted:Qty: 1 on 04/11/2017 by Elda Patterson DO at OR [facility] Left: Chest [employer] 08/25/2018 A2DR01 / [id number] / documented as of this encounter Advance Directives Documents on File Type Date Recorded Patient Cyber Security Systems Engineer Expl anation POLST 01/05/2021 [place] OR [facility] FOR [...] AM 07/03/2008 5:40 PM Care Teams Ship Pilot Dispatcher Relationship Specialty Start Date End Date Cathy Wilburn MD [address] [place] [address] [place] [phone] PCP - General Family Medicine 12/03/22 documented as of this encounter
--- OUTSIDE RECORDS SUMMARY | 2024-01-07 09:41 | External Medical Summary | Summary of Care ---
Author Name Unknown Organization [facility] Address [address] [place] [address] Phone [phone] Care Team Providers Care Artificial Stone Setter Name Role Phone Cathy Wilburn MD Primary Care Provide r Reason for Visit * Reason Onset Date Comments Medication Question 12/21/2023 Prolia Encounter Details Date Type Department Care Team (Late st Contact Info) Description 12/21/2023 Telephone Rheumatology [facility] [address] [place] [address] Vidhi Argueta CRNP [address] [employer] [place] [address] Medication Question (Prolia) Allergies Active Allergy [...] 40 MG Oral Tablet (Lipitor)Indication s:Atherosclerosis of [place] coronary artery of [place] heart without angina pectoris,Dyslipidem ia, goal LDL [...] inj 60 mgIndications:Senile osteoporosis 60 mg SC X4HAVEIC 12/26/2023 06/23/2024 Active documented as of this [...] lumbosacral intervertebral disc 02/04/2009 Coronary atherosclerosis of [place] coronary luis ry 02/24/2005 Senile osteoporosis 05/14/2003 [...] 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 LOC PRIM [id number] 02/14/200205/30 Other seborrheic keratosis 10/31/2001 0 06/06/2007 [...] encounter Miscellaneous Notes * Addendum Note - Vidhi Argueta CRNP - 12/26/2023 1:34 PM EDTAddended by: VIDHI ARGUETA on: 12/26/2023 01:34 PM Modules accepted: Orders * Addendum Note - Moise Orosco LPN - 12/26/2023 8:23 AM EDTAddended by: MOISE OROSCO on: 12/26/2023 08:23 AM Modules accepted: Orders * Telephone Encounter - Moise Orosco LPN - 12/26/2023 8:22 AM EDT Chart reviewed and labs noted to be within normal limits. Patient has been seen within the last 12 months by a Rheumatology provider. Prolia authorization approved and updated in referral. Last injection has been > 6 months and 1 day. CAM orders pended for signature. Thank you! * Telephone Encounter - Vidhi Argueta CRNP - 12/26/2023 7:52 AM EDT Discussed with Dr. Wilburn and he will monitor. * Telephone Encounter - Moise Orosco LPN - 12/23/2023 2:36 PM EDT Spoke with pt , "does not take Calcium" * Telephone Encounter - Vidhi Argueta CRNP - 12/23/2023 2:25 PM EDT Vitamin-D is good, kidney stable. Calcium slightly elevated okay to give Prolia. Please contact patient to decrease calcium by half. We will recheck calcium level before next Prolia in 6 months. Orders placed. * Telephone Encounter - Moise Orosco LPN - 12/22/2023 2:44 PM EDT Can you check recent labs, ok for Prolia? * Telephone Encounter - Moise Orosco LPN - 12/21/2023 3:21 PM EDT Any information on pt FA, has apt. 12/26/23 documented in this encounter Plan of Treatment Upcoming Encounters Date Type Department Care Team (Late st Contact Info) Description 12/29/2023 2:00 PM EDT [facility] Visit [facility], [facility] 132 [facility] [place] [address] Drea Candelario, RN 132 [facility] [place] [address] 12/30/2023 1:30 PM EDT Nurse Only Rheumatology [address] [place] [phone] [place], Nurse [address] [place] [phone] 12/30/2023 2:30 PM EDT Home Visit [facility], [facility] [address] [place] [address] Gita Bae PA-C [address] [place] [address] Vonnie Robbins, Community Health Catering Administrative Assistant [address] [place] [address] 01/06/2024 2:00 PM EST Office Visit Nephrology [address] [place] [address] Charlotte Cope PAJuanC [address] [place] [address] 01/24/2024 8:30 AM EST Cardiac Studies Cardiology [address] [place] [address] Lucia Jimenez [facility] 132 [facility] [place] [address] 02/02/2024 2:30 PM EST Office Visit Hematology/Oncology [facility] [address] [place] [phone] Mirna Camp CRNP [address] [place] [address] 02/14/2024 1:30 PM EST Office Visit Cardiology, [facility] 132 [facility] [place] [address] Jane Ashley CRNP [address] [place] [phone] 05/15/2024 1:00 PM EDT Office Visit Nephrology [address] [place] [address] ZeCharlotte coleman PA-C 200 [facility] [place] [address] 06/06/2024 3:20 PM EDT Office Visit Family Medicine [address] [place] [phone] Cathy Wilburn MD [address] [place] [address] [place] [address] Scheduled Orders Name Type Priority Associated Diagnoses Orde r Schedule CALCIUM Lab Routine Senile osteoporosis Expected: 04/02/2024, Expires: Health Maintenance Due Date Last Done Comments Adult Wellness Visit 05/30/2021 05/30/2020 DXA Scan 10/22/2023 10/21/2021, 09/29, 08/28/2018, Additional history exists COVID-19 Vaccine ( season) 2023 CKD PHOS USE SMARTSET 42810 08/16/202407/29, 05/12/2023, 11/05/2022, Additional history exists Albumin/Creatinine Ratio 08/24/2024 024, 07/19/2022, 04/06/2021, Additional history exists Depression Monitoring 08/24/2024 08/25/2023 DIG LEVEL FOR MEDICATION MONITORING YEARLY 09/20/2024 09/21/2023, 06/22/2023, 04/29/2023, Additional history exists CKD HGB USE SMARTSET 75914 12/13/202412/13, 12/07/2023, 10/28/2023, Additional history exists DTap/Tdap Vaccines (2 - Td or Tdap) 12/31/2029 01/01/2020 (Declined), 12/30/2009, 12/30/2009, Additional history exists Pneumococcal Vaccine: 65+ Years Completed 02/08/2017, 02/23/2006 VITAMIN D LEVEL ONCE IN A LIFETIME-USE SMARTSET# 97413 Completed 08/17/2023, 06/27/2023, 06/22/2023, Additional history exists [...] encounter Medical Devices Implanted Type Area Gear Cutting Machine Set Up Operator Device Identifier Shelf Expiration Date Model / Serial / Lot Lead Novus Bipolar 58cm - [id number] - [id number] Implanted:Qty: 1 on 04/11/2017 by Elda Patterson DO at OR [facility] Left: Heart [employer] : CRM 12/18/2018 5076-58 / [id number] / Description:RIGHT VENTRICLE LEAD Lead Novus Bipolar 52cm - [id number] - [id number] Implanted:Qty: 1 on 04/11/2017 by Elda Patterson DO at OR [facility] Left: Heart [employer] : CRM 12/24/2018 5076-52 / [id number] / Description:RIGHT ATRIAL ROCKY D Pacer Advisa Dr Dorsey - [id number] - [id number] Implanted:Qty: 1 on 04/11/2017 by Elda Patterson DO at OR [facility] Left: Chest [employer] 08/25/2018 A2DR01 / [id number] / documented as of this encounter Visit Diagnoses Diagnosis Senile osteoporosis- Primary documented in this encounter Advance Directives Documents on File Type Date Recorded Patient Cistern Room Operator Expl anation POLST 01/05/2021 [place] OR [facility] FOR LIFE-SUSTAINING TREATMENT * Full Code [...] AM 07/03/2008 5:40 PM Care Teams Artificial Stone Setter Relationship Specialty Start Date End Date Cathy Wilburn MD [address] [place] [address] [place] [address] PCP - General Family Medicine 12/03/22 documented as of this encounter
--- OUTSIDE RECORDS SUMMARY | 2024-01-07 09:41 | External Medical Summary | Summary of Care ---
Author Name Unknown Organization [facility] Address [address] [place] [address] Phone [phone] Care Team Providers Care Inspector Scales Name Role Phone Cathy Wilburn MD Primary Care Provide r Reason for Visit * Reason Onset Date Comments Medication Question 12/21/2023 Prolia Encounter Details Date Type Department Care Team (Late st Contact Info) Description 12/21/2023 Telephone Rheumatology [facility] [address] [place] [address] Vidhi Chavis CRNP [address] [employer] [address] [place] [address] Medication Question (Prolia) Allergies Active Allergy [...] 40 MG Oral Tablet (Lipitor)Indication s:Atherosclerosis of [place] coronary artery of [place] heart without angina pectoris,Dyslipidem ia, goal LDL [...] lumbosacral intervertebral disc 02/04/2009 Coronary atherosclerosis of [place] coronary luis ry 02/24/2005 Senile osteoporosis 05/14/2003 [...] 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 LOC PRIM [id number] 02/14/200205/30 Other seborrheic keratosis 10/31/2001 0 06/06/2007 [...] encounter Miscellaneous Notes * Addendum Note - Moise Orosco LPN [...] Thank you! * Telephone Encounter - Vidhi Chavis CRNP [...] ok for Prolia? * Telephone Encounter - Miose Orosco LPN - 12/21/2023 3:21 PM EDT Any information on pt FA, has apt. 12/26/23 documented in this encounter Plan of Treatment Upcoming Encounters Date Type Department Care Team (Late st Contact Info) Description 12/26/2023 11:15 AM EDT Scheduled Telephone [facility], [facility] 132 [place] [address] Coordinator, [facility] 132 [place] [address] 12/26/2023 2:30 PM EDT Nurse Only Rheumatology Sakshi Dee [address] [place] [phone] [place], [address] [place] [phone] 12/29/2023 2:00 PM EDT [facility] Visit [facility], [facility] 132 [facility] [address] Drea Candelario, RN 132 [place] [address] 12/30/2023 2:30 PM EDT Home Visit [facility], [facility] [address] [place] [address] Gita Bae PA-C [address] [place] [address] Vonnie Robbins, Community Health Prekindergarten Teacher 100 [place] [address] 01/06/2024 2:00 PM EST Office Visit Nephrology [address] [place] [address] Charlotte Cope PA-C 200 [facility] [place] [address] 01/24/2024 8:30 AM EST Cardiac Studies Cardiology [address] [place] [address] Lucia Jimenez [facility] 132 [facility] [place] [address] 02/02/2024 2:30 PM EST Office Visit Hematology/Oncology [employer] [address] [place] [phone] Mirna Camp CRNP 400 [facility] [place] [address] 02/14/2024 1:30 PM EST Office Visit Cardiology, [facility] [address] [place] [address] Jane Ashley CRNP [address] [place] [place] [address] 05/15/2024 1:00 PM EDT Office Visit Nephrology [address] [place] [address] Charlotte Cope PA-C [address] [place] [address] 06/06/2024 3:20 PM EDT Office Visit Family Medicine [address] [place] [phone] Cathy Wilburn MD [address] [place] [address] [place] [address] Scheduled Orders Name Type Priority Associated Diagnoses Orde r Schedule CALCIUM Lab Routine Senile osteoporosis Expected: 04/02/2024, Expires: Health Maintenance Due Date Last Done Comments Adult Wellness Visit 05/30/2021 05/30/2020 DXA Scan 10/22/2023 10/21/2021, 09/29, 08/28/2018, Additional history exists COVID-19 Vaccine ( season) 2023 CKD PHOS USE SMARTSET 83111 08/16/202407/29, 05/12/2023, 11/05/2022, Additional history exists Albumin/Creatinine Ratio 08/24/2024 024, 07/19/2022, 04/06/2021, Additional history exists Depression Monitoring 08/24/2024 08/25/2023 DIG LEVEL FOR MEDICATION MONITORING YEARLY 09/20/2024 09/21/2023, 06/22/2023, 04/29/2023, Additional history exists CKD HGB USE SMARTSET 03034 12/13/202412/13, 12/07/2023, 10/28/2023, Additional history exists DTap/Tdap Vaccines (2 - Td or Tdap) 12/31/2029 01/01/2020 (Declined), 12/30/2009, 12/30/2009, Additional history exists Pneumococcal Vaccine: 65+ Years Completed 02/08/2017, 02/23/2006 VITAMIN D LEVEL ONCE IN A LIFETIME-USE SMARTSET# 08346 Completed 08/17/2023, 06/27/2023, 06/22/2023, Additional history exists [...] this encounter Medical Devices Implanted Type Area Admitting Manager Device Identifier Shelf Expiration Date Model / Serial / Lot Lead Novus Bipolar 58cm - [id number] - [id number] Implanted:Qty: 1 on 04/11/2017 by [facility] Heart [employer] : [facility] 12/18/2018 5076-58 / [id number] / Description:RIGHT VENTRICLE LEAD Lead Novus Bipolar 52cm - [id number] - [id number] Implanted:Qty: 1 on 04/11/2017 by Elda [facility] Left: Heart [employer] : [facility] 12/24/2018 5076-52 / [id number] / Description:RIGHT ATRIAL ROCKY D Pacer Advisa Dr Dorsey - [id number] - [id number] Implanted:Qty: 1 on 04/11/2017 by Elda Patterson [facility] Left: Chest [employer] 08/25/2018 A2DR01 / [id number] / documented as of this encounter Visit Diagnoses Diagnosis Senile osteoporosis- Primary documented in this encounter Advance Directives Documents on File Type Date Recorded Patient Tray Server Expl anation POLST 01/05/2021 [place] OR [facility] FOR LIFE-SUSTAINING [...] 9:35 AM 07/03/2008 5:40 PM Care Teams Inspector Scales Relationship Specialty Start Date End Date Cathy Wilburn MD [address] [place] [address] [place] [phone] PCP - General Family Medicine 12/03/22 documented as of this encounter
--- OUTSIDE RECORDS SUMMARY | 2024-01-07 09:41 | External Medical Summary | Summary of Care ---
Author Name Unknown Organization [facility] Address [address] [place] [address] Phone [phone] Care Team Providers Care Corporate Sales Manager Name Role Phone Cathy Wilburn MD Primary Care Provide r Reason for Visit * Reason Onset Date Comments Medication Question 12/21/2023 Prolia Encounter Details Date Type Department Care Team (Late st Contact Info) Description 12/21/2023 Telephone Rheumatology [facility] [address] [place] [address] Vidhi Argueta CRNP [address] [place] [address] Medication Question (Prolia) Allergies Active Allergy [...] inj 60 mgIndications:Senile osteoporosis 60 mg SC [id number] 12/26/2023 06/23/2024 Active documented as of this [...] 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 LOC PRIM [id number] 02/14/200205/30 Other seborrheic keratosis 10/31/2001 0 06/06/2007 [...] PM EDT [facility], [facility] 132 [facility] [place] [address] Drea Candelario, RN 132 [facility] [place] [address] 12/30/2023 1:30 PM EDT Nurse Only Rheumatology [address] [place] [phone] [place], Nurse [address] [place] [phone] 12/30/2023 2:30 PM EDT [facility] Visit [facility], [facility] [address] [place] [address] Gita Bae PA-C [address] [place] [address] Vonnie Robbins, Community Health [employer] [address] [place] [address] 01/06/2024 2:00 PM EST Office Visit Nephrology [address] [place] [address] Charlotte Cope PAJuanC [address] [place] [address] 01/24/2024 8:30 AM EST Cardiac Studies Cardiology [address] [place] [address] Lucia Jimenez [facility] 132 [facility] [place] [address] 02/02/2024 2:30 PM EST Office Visit Hematology/Oncology [facility] [address] [place] [phone] Mirna Camp CRNP [address] [place] [address] 02/14/2024 1:30 PM EST Office Visit Cardiology, [facility] 132 [facility] [place] [address] Jane Ashley CRNP [address] [place] [id number] 05/15/2024 1:00 PM EDT Office Visit Nephrology [address] [place] [address] ZeCharlotte coleman PA-C 200 [facility] [place] [address] 06/06/2024 3:20 PM EDT Office Visit Family Medicine [address] [place] [phone] Cathy Wilburn MD [address] [place] [address] [place] [address] Scheduled Orders Name Type Priority Associated Diagnoses Orde r Schedule CALCIUM Lab Routine Senile osteoporosis Expected: 04/02/2024, Expires: Health Maintenance Due Date Last Done Comments Adult Wellness Visit 05/30/2021 05/30/2020 DXA Scan 10/22/2023 10/21/2021, 09/29, 08/28/2018, Additional history exists COVID-19 Vaccine ( season) 2023 CKD PHOS USE SMARTSET 90927 08/16/202407/29, 05/12/2023, 11/05/2022, Additional history exists Albumin/Creatinine Ratio 08/24/2024 024, 07/19/2022, 04/06/2021, Additional history exists Depression Monitoring 08/24/2024 08/25/2023 DIG LEVEL FOR MEDICATION MONITORING YEARLY 09/20/2024 09/21/2023, 06/22/2023, 04/29/2023, Additional history exists CKD HGB USE SMARTSET 58117 12/13/202412/13, 12/07/2023, 10/28/2023, Additional history exists DTap/Tdap Vaccines (2 - Td or Tdap) 12/31/2029 01/01/2020 (Declined), 12/30/2009, 12/30/2009, Additional history exists Pneumococcal Vaccine: 65+ Years Completed 02/08/2017, 02/23/2006 VITAMIN D LEVEL ONCE IN A LIFETIME-USE SMARTSET# 71507 Completed 08/17/2023, 06/27/2023, 06/22/2023, Additional history exists [...] this encounter Medical Devices Implanted Type Area Simonizer Device Identifier Shelf Expiration Date Model / Serial / Lot Lead Novus Bipolar 58cm - [id number] - [id number] Implanted:Qty: 1 on 04/11/2017 by Elda Patterson DO at OR [facility] Left: Heart [employer] : CRM 12/18/2018 5076-58 / [id number] / Description:RIGHT VENTRICLE LEAD Lead Novus Bipolar 52cm - [id number] - [id number] Implanted:Qty: 1 on 04/11/2017 by Elda Patterson DO at OR [facility] Left: Heart [employer] : CRM 12/24/2018 5076-52 / [id number] / Description:RIGHT ATRIAL ROCKY D Pacer Advisa Dr Dorsey - [id number] - [id number] Implanted:Qty: 1 on 04/11/2017 by Elda Patterson DO at OR [facility] Left: Chest [employer] 08/25/2018 A2DR01 / [id number] / documented as of this encounter Visit Diagnoses Diagnosis Senile osteoporosis- Primary documented in this encounter Advance Directives Documents on File Type Date Recorded Patient Substance Abuse Therapist Expl anation POLST 01/05/2021 [place] OR [facility] FOR LIFE-SUSTAINING TREATMENT * Full Code [...] 9:35 AM 07/03/2008 5:40 PM Care Teams Corporate Sales Manager Relationship Specialty Start Date End Date Cathy Wilburn MD [address] [place] [address] [place] [address] PCP - General Family Medicine 12/03/22 documented as of this encounter
--- OUTSIDE RECORDS SUMMARY | 2024-01-07 09:41 | External Medical Summary | Summary of Care ---
Author Name Unknown Organization [facility] Address [address] [facility] [address] Phone [phone] Care Team Providers Care Semiconductor Dies Loader Name Role Phone Cathy Wilburn MD Primary Care Provide r Encounter Details Date Type Department Care Team (Late st Contact Info) Description 12/28/2023 Orders Only PATIENT PORTAL DO NOT DELETE [...] 40 MG Oral Tablet (Lipitor)Indication s:Atherosclerosis of [place] coronary artery of [place] heart without angina pectoris,Dyslipidem ia, goal LDL [...] inj 60 mgIndications:Senile osteoporosis 60 mg SC [id number] 12/26/2023 06/23/2024 Active documented as of this [...] lumbosacral intervertebral disc 02/04/2009 Coronary atherosclerosis of [place] coronary luis ry 02/24/2005 Senile osteoporosis 05/14/2003 [...] 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 LOC PRIM [id number] 02/14/200205/30 Other seborrheic keratosis 10/31/2001 0 06/06/2007 [...] 12:00 PM EDT Office Visit Family Medicine [address] [place] [phone] Ceci Knapp PA-C [address] [place] [address] [place] [address] 12/29/2023 2:00 PM EDT [facility] 132 [place] [address] Drea Candelario, LISET 132 [place] [address] 12/30/2023 1:30 PM EDT Nurse Only Rheumatology [address] [place] [phone] [place], [address] [place] [address] 12/30/2023 2:30 PM EDT [facility] [place] [address] [place] [address] Gita Bae PAJuanC [address] [place] [address] Vonnie Robbins, Community Health Material Handling Supervisor [address] [place] [address] 01/06/2024 2:00 PM EST Office Visit Nephrology [address] [place] [address] Charlotte Cope PA-C [address] [place] [address] 01/24/2024 8:30 AM EST Cardiac Studies Cardiology [address] [place] [address] Lucia Jimenez [facility] 132 [facility] [address] 02/02/2024 2:30 PM EST Office Visit Hematology/Oncology [facility] [address] [place] [address] Mirna Camp CRNP 400 [facility] [place] [address] 02/14/2024 1:30 PM EST Office Visit Cardiology, [facility] 132 [facility] [address] Jane Ashley CRNP 400 [facility] [place] [address] 05/15/2024 1:00 PM EDT Office Visit Nephrology [address] [place] [address] Charlotte Cope PA-C 200 [facility] [place] [address] 06/06/2024 3:20 PM EDT Office Visit Family Medicine [address] [place] [phone] Cathy Wilburn MD [address] [place] [address] [place] [address] Health Maintenance Due Date Last Done Comments Adult Wellness Visit 05/30/2021 05/30/2020 DXA Scan 10/22/2023 10/21/2021, 09/29, 08/28/2018, Additional history exists COVID-19 Vaccine ( season) 2023 CKD PHOS USE SMARTSET 17666 08/16/202407/29, 05/12/2023, 11/05/2022, Additional history exists Albumin/Creatinine Ratio 08/24/2024 024, 07/19/2022, 04/06/2021, Additional history exists Depression Monitoring 08/24/2024 08/25/2023 DIG LEVEL FOR MEDICATION MONITORING YEARLY 09/20/2024 09/21/2023, 06/22/2023, 04/29/2023, Additional history exists CKD HGB USE SMARTSET 11124 12/13/202412/13, 12/07/2023, 10/28/2023, Additional history exists DTap/Tdap Vaccines (2 - Td or Tdap) 12/31/2029 01/01/2020 (Declined), 12/30/2009, 12/30/2009, Additional history exists Pneumococcal Vaccine: 65+ Years Completed 02/08/2017, 02/23/2006 VITAMIN D LEVEL ONCE IN A LIFETIME-USE SMARTSET# 21768 Completed 08/17/2023, 06/27/2023, 06/22/2023, Additional history exists [...] this encounter Medical Devices Implanted Type Area Associate Professor Of Literature Device Identifier Shelf Expiration Date Model / Serial / Lot Lead Novus Bipolar 58cm - [id number] - [id number] Implanted:Qty: 1 on 04/11/2017 by Elda Patterosn DO at OR [facility] Left: Heart [employer] : [facility] 12/18/2018 5076-58 / [id number] / Description:RIGHT VENTRICLE LEAD Lead Novus Bipolar 52cm - [id number] - [id number] Implanted:Qty: 1 on 04/11/2017 by Elda Patterson DO at OR [facility] Left: Heart [employer] : [facility] 12/24/2018 5076-52 / [id number] / Description:RIGHT ATRIAL ROCKY D Pacer Advisa Dr Dorsey - [id number] - [id number] Implanted:Qty: 1 on 04/11/2017 by Elda Patterson DO at OR [facility] Left: Chest [employer] 08/25/2018 A2DR01 / [id number] / documented as of this encounter Advance Directives Documents on File Type Date Recorded Patient Staff Software Engineer Expl anation POLST 01/05/2021 [place] OR [facility] FOR [...] 9:35 AM 07/03/2008 5:40 PM Care Teams Semiconductor Dies Loader Relationship Specialty Start Date End Date Cathy Wilburn MD [address] [place] [address] [place] [phone] PCP - General Family Medicine 12/03/22 documented as of this encounter
--- OUTSIDE RECORDS SUMMARY | 2024-01-07 09:41 | External Medical Summary | Summary of Care ---
Author Name Unknown Organization [facility] Address [address] [place] [address] Phone [phone] Care Team Providers Care Radio Station Manager Name Role Phone Cathy Wilburn MD Primary Care Provide r Reason for Visit * Reason Onset Date Comments Advice 12/26/2023 Encounter Details Date Type Department Care Team (Late st Contact Info) Description 12/26/[address] [place] [phone] Cathy Wilburn MD [address] [place] [address] [place] [address] Advice Allergies Active Allergy Reactions Criticality Noted Date [...] 40 MG Oral Tablet (Lipitor)Indication s:Atherosclerosis of [place] coronary artery of [place] heart without angina pectoris,Dyslipidem ia, goal LDL [...] lumbosacral intervertebral disc 02/04/2009 Coronary atherosclerosis of [place] coronary luis ry 02/24/2005 Senile osteoporosis 05/14/2003 [...] 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 LOC PRIM [id number] 02/14/200205/30 Other seborrheic keratosis 10/31/2001 0 06/06/2007 [...] Telephone Encounter - Cathy Wilburn MD - 12/26/2023 7:57 AM EDT Pt does have hx of parathyroidism - has seen endo in the past - had PTH done 5 months ago - will repeat labs again Pls call the pt and inform her that I ordered some labs for her high calcium and when she gets any blood work done in the future she can get these labs as well * Telephone Encounter - Cathy Wilburn MD - 12/26/2023 7:48 AM EDT ----- Message from Vidhi Chavis sent at 12/23/2023 4:12 PM EDT ----- Regarding: Hypercalcemia Hi, This patient she is on Prolia. She has an elevated calcium of 10.5 she is not currently on calcium supplementation. You think she needs a workup or so we just monitor? Sincerely, JULIO Hebert [facility] Rheumatology Department documented in this encounter Plan of Treatment Upcoming Encounters Date Type Department Care Team (Late st Contact Info) Description 12/26/2023 11:15 AM EDT Scheduled Telephone [facility], [facility] [address] [place] [address] Coordinator, [facility] [place] [address] 12/26/2023 2:30 PM EDT Nurse Only Rheumatology [address] [place] [phone] [place], Nurse [address] [place] [phone] 12/29/2023 2:00 PM EDT [facility], [facility] [place] [address] Drea Candelario, RN [address] [place] [address] 12/30/2023 2:30 PM EDT Home Visit [facility], [facility] [address] [place] [address] Gita Bae, PAJuanC [address] [place] [address] Vonnie Robbins, Community Health Sales Financial Analyst [address] [place] [address] 01/06/2024 2:00 PM EST Office Visit Nephrology [address] [place] [address] Charlotte Cope PAJuanC [address] [place] [address] 01/24/2024 8:30 AM EST Cardiac Studies Cardiology [address] [place] [address] Lucia Jimenez [facility] 132 [facility] [place] [address] 02/02/2024 2:30 PM EST Office Visit Hematology/Oncology [facility] 200 [facility] [place] [phone] Mirna Camp CRNP 400 [facility] [place] [address] 02/14/2024 1:30 PM EST Office Visit Cardiology, [facility] 132 [facility] [place] [address] Jane Ashley CRNP 400 [facility] [place] [address] 05/15/2024 1:00 PM EDT Office Visit Nephrology [address] [place] [address] Charlotte Cope PA-C 200 [facility] [place] [address] 06/06/2024 3:20 PM EDT Office Visit Family Medicine [address] [place] [phone] Cathy Wilburn MD [address] [place] [address] [place] [address] Scheduled Orders Name Type Priority Associated Diagnoses Orde r Schedule BASIC METABOLIC PANEL Lab Routine Hyperparathyroidism (HCC) Expected: 12/27/2023 (Approximate), Expires: 12/25/2024 ALBUMIN Lab Routine Hyperparathyroidism (HCC) Expected: 12/27/2023 (Approximate), Expires: 12/25/2024 25-HYDROXY VITAMIN D Lab Routine Hyperparathyroidism (HCC) Expected: 12/27/2023 (Approximate), Expires: 12/25/2024 TSH WITH FREE T4 IF INDICATED Lab Routine Hyperparathyroidism (HCC) Expected: 12/27/2023 (Approximate), Expires: 12/25/2024 Health Maintenance Due Date Last Done Comments Adult Wellness Visit 05/30/2021 05/30/2020 DXA Scan 10/22/2023 10/21/2021, 09/29, 08/28/2018, Additional history exists COVID-19 Vaccine ( season) 2023 CKD PHOS USE SMARTSET 83383 08/16/202407/29, 05/12/2023, 11/05/2022, Additional history exists Albumin/Creatinine Ratio 08/24/2024 024, 07/19/2022, 04/06/2021, Additional history exists Depression Monitoring 08/24/2024 08/25/2023 DIG LEVEL FOR MEDICATION MONITORING YEARLY 09/20/2024 09/21/2023, 06/22/2023, 04/29/2023, Additional history exists CKD HGB USE SMARTSET 43735 12/13/202412/13, 12/07/2023, 10/28/2023, Additional history exists DTap/Tdap Vaccines (2 - Td or Tdap) 12/31/2029 01/01/2020 (Declined), 12/30/2009, 12/30/2009, Additional history exists Pneumococcal Vaccine: 65+ Years Completed 02/08/2017, 02/23/2006 VITAMIN D LEVEL ONCE IN A LIFETIME-USE SMARTSET# 47491 Completed 08/17/2023, 06/27/2023, 06/22/2023, Additional history exists [...] this encounter Medical Devices Implanted Type Area Project Specialist Device Identifier Shelf Expiration Date Model / Serial / Lot Lead Novus Bipolar 58cm - [id number] - [id number] Implanted:Qty: 1 on 04/11/2017 by Elda Patterson DO at OR [facility] Left: Heart [employer] : [facility] 12/18/2018 5076-58 / [id number] / Description:RIGHT VENTRICLE LEAD Lead Novus Bipolar 52cm - [id number] - [id number] Implanted:Qty: 1 on 04/11/2017 by Elda Patterson DO at OR [facility] Left: Heart [employer] : [facility] 12/24/2018 5076-52 / [id number] / Description:RIGHT ATRIAL ROCKY D Pacer Advisa Dr Dorsey - [id number] - [id number] Implanted:Qty: 1 on 04/11/2017 by Elda Patterson DO at OR [facility] Left: Chest [employer] 08/25/2018 A2DR01 / [id number] / documented as of this encounter Visit Diagnoses Diagnosis Hyperparathyroidism (HCC)- Primary Hyperparathyroidism, unspecified documented in this encounter Advance Directives Documents on File Type Date Recorded 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
--- OUTSIDE RECORDS SUMMARY | 2024-01-07 09:42 | External Medical Summary | Summary of Care ---
Author Name Unknown Organization [facility] Address [address] [place] [address] Phone [phone] Care Team Providers Care Advisor Consultant Name Role Phone Cathy Wilburn MD Primary Care Provide r Reason for Visit * Reason Onset Date Comments No Show 12/26/2023 [facility] No Show Auto mation Encounter Details Date Type Department Care Team (Late st Contact Info) Description 12/26/2023 Telephone Family Medicine [address] [phone] Arvin Max MD [address] [place] [address] [place] [id number] No Show ([place] No Show Automation) Allergies Active Allergy Reactions Criticality Noted Date [...] 40 MG Oral Tablet (Lipitor)Indication s:Atherosclerosis of [place] coronary artery of [place] heart without angina pectoris,Dyslipidem ia, goal LDL [...] lumbosacral intervertebral disc 02/04/2009 Coronary atherosclerosis of [place] coronary luis ry 02/24/2005 Senile osteoporosis 05/14/2003 [...] 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 LOC PRIM [id number] 02/14/200205/30 Other seborrheic keratosis 10/31/2001 0 06/06/2007 [...] encounter Miscellaneous Notes * Telephone Encounter - Justice, No Show - 12/26/2023 4:35 AM EDT Dear Miranda Coe, Looks like you missed an appointment with ARVIN MAX on 12/23/2023 at 03:00 PM. If you haven't already rescheduled, you have a couple of options: Reschedule in [email or web address] Call us at [phone] Can't make a future appointment? Cancel and let someone else have your spot! It's easy to do via [employer] or by calling us. Thanks for trusting [facility] with your care. We hope to see you back in our office soon. Sincerely, ARVIN MAX documented in this encounter Plan of Treatment Upcoming Encounters Date Type Department Care Team (Late st Contact Info) Description 12/26/2023 11:15 AM EDT Scheduled Telephone [facility] [place], [address] [place] [address] Coordinator, [facility] [place] [address] 12/26/2023 2:30 PM EDT Nurse Only Rheumatology [address] [place] [phone] [place], Nurse [address] [place] [phone] 12/29/2023 2:00 PM EDT [facility], [facility] [place] [address] Drea Candelario, LISET 132 [facility] [place] [address] 12/30/2023 2:30 PM EDT [facility], [facility] [address] [place] [address] Gita Bae PA-C [address] [place] [address] Vonnie Robbins, Community Health Cinder Worker [address] [place] [address] 01/06/2024 2:00 PM EST Office Visit Nephrology [address] [place] [address] Charlotte Cope PAJuanC [address] [place] [address] 01/24/2024 8:30 AM EST Cardiac Studies Cardiology [address] [place] [address] Lucia Jimenez [facility] [place] [address] 02/02/2024 2:30 PM EST Office Visit Hematology/Oncology [facility] [address] [place] [address] Mirna Camp CRNP 400 [place] [address] 02/14/2024 1:30 PM EST Office Visit Cardiology, [facility] [address] [place] [address] Jane Ashley CRNP 400 [place] [phone] 05/15/2024 1:00 PM EDT Office Visit Nephrology [address] [place] [address] Charlotte Cope PA-C 200 [facility] [place] [address] 06/06/2024 3:20 PM EDT Office Visit Family Medicine [address] [place] [phone] Cathy Wilburn MD [address] [place] [address] [place] [address] Health Maintenance Due Date Last Done Comments Adult Wellness Visit 05/30/2021 05/30/2020 DXA Scan 10/22/2023 10/21/2021, 09/29, 08/28/2018, Additional history exists COVID-19 Vaccine ( season) 2023 CKD PHOS USE SMARTSET 25113 08/16/202407/29, 05/12/2023, 11/05/2022, Additional history exists Albumin/Creatinine Ratio 08/24/2024 024, 07/19/2022, 04/06/2021, Additional history exists Depression Monitoring 08/24/2024 08/25/2023 DIG LEVEL FOR MEDICATION MONITORING YEARLY 09/20/2024 09/21/2023, 06/22/2023, 04/29/2023, Additional history exists CKD HGB USE SMARTSET 51202 12/13/202412/13, 12/07/2023, 10/28/2023, Additional history exists DTap/Tdap Vaccines (2 - Td or Tdap) 12/31/2029 01/01/2020 (Declined), 12/30/2009, 12/30/2009, Additional history exists Pneumococcal Vaccine: 65+ Years Completed 02/08/2017, 02/23/2006 VITAMIN D LEVEL ONCE IN A LIFETIME-USE SMARTSET# 50790 Completed 08/17/2023, 06/27/2023, 06/22/2023, Additional history exists [...] this encounter Medical Devices Implanted Type Area Chief Design Drafter Device Identifier Shelf Expiration Date Model / Serial / Lot Lead Novus Bipolar 58cm - [id number] - [id number] Implanted:Qty: 1 on 04/11/2017 by Elda Patterson DO at OR [facility] Left: Heart [employer] : CRM 12/18/2018 5076-58 / [id number] / Description:RIGHT VENTRICLE LEAD Lead Novus Bipolar 52cm - [id number] - [id number] Implanted:Qty: 1 on 04/11/2017 by Elda Patterson DO at OR [facility] Left: Heart [employer] : CRM 12/24/2018 5076-52 / [id number] / Description:RIGHT ATRIAL ROCKY D Pacer Advisa Dr Dorsey - [id number] - [id number] Implanted:Qty: 1 on 04/11/2017 by Elda Patterson DO at OR [facility] Left: Chest [employer] 08/25/2018 A2DR01 / [id number] / documented as of this encounter Advance Directives Documents on File Type Date Recorded 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
--- OUTSIDE RECORDS SUMMARY | 2024-01-07 09:42 | External Medical Summary | Summary of Care ---
Author Name Unknown Organization [facility] Address [address] [place] [address] Phone [phone] Care Team Providers Care General Service Technician Name Role Phone Cathy Wilburn MD Primary Care Provide r Reason for Visit * Reason Onset Date Comments Medication Question 12/21/2023 Prolia Encounter Details Date Type Department Care Team (Late st Contact Info) Description 12/21/2023 Telephone Rheumatology [facility] [address] [place] [address] Vidhi Chavis CRNP [address] [place] [address] Medication Question (Prolia) Allergies Active Allergy [...] as of this encounter (statuses as of 12/23/2023) Medications Medication Sig Dispensed Refills Start Date End Date Status Acetaminophen 325 MG Oral Tablet (Tylenol) Take by mouth 2 Tablets every 4 hours as needed for Fever >38C(100.5F), Pain, Mild, Pain, Moderate or Pain, Severe. 100 Tablet 1 2021 Active Atorvastatin Calcium 40 MG Oral Tablet (Lipitor)Indication s:Atherosclerosis of [place] coronary artery of [place] heart without angina pectoris,Dyslipidem ia, goal LDL [...] as of this encounter (statuses as of 12/23/2023) Active Problems Problem Noted Date Diagnosed Date [...] lumbosacral intervertebral disc 02/04/2009 Coronary atherosclerosis of cherokee coronary luis ry 02/24/2005 Senile osteoporosis 05/14/2003 Carpal tunnel syndrome 04/23/2003 Moderate mitral regurgitation GENERAL OSTEOARTHROSIS Gastroesophageal reflux disease without esophagi tis Vitamin D deficiency Hyperparathyroidism, primary documented as of this encounter (statuses as of 12/23/2023) Resolved Problems Problem Noted Date Diagnosed Date [...] 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 LOC PRIM [id number] 02/14/200205/30 Other seborrheic keratosis 10/31/2001 0 06/06/2007 [...] as of this encounter (statuses as of 12/23/2023) Immunizations Name Administration Dates Next Due Pneumococcal [...] encounter Miscellaneous Notes * Telephone Encounter - Grecia Lopez LPN [...] Team (Late st Contact Info) Description 12/26/2023 2:30 PM EDT Nurse Only Rheumatology [address] [place] [phone] [place], Nurse Rheum [address] [place] [phone] 12/29/2023 2:00 PM EDT [facility], [facility] 132 [facility] [address] Drea Candelario, RN 132 [facility] [place] [address] 12/30/2023 2:30 PM EDT [facility], [facility] [address] [facility] [place] [address] Gita Bae PA-C [address] [place] [address] Vonnie Robbins, Community Health Human Resources District Manager [address] [place] [address] 01/06/2024 2:00 PM EST Office Visit Nephrology [address] [place] [address] Charlotte Cope PA-C [address] [place] [address] 01/24/2024 8:30 AM EST Cardiac Studies Cardiology [address] [place] [address] [facility] [address] [place] [address] 02/02/2024 2:30 PM EST Office Visit Hematology/Oncology [facility] [place] 200 [facility] [place] [phone] Mirna Camp CRNP [address] [place] [address] 02/14/2024 1:30 PM EST Office Visit Cardiology, [facility] 132 [facility] [place] [address] Jane Ashley CRNP [address] [place] [address] 05/15/2024 1:00 PM EDT Office Visit Nephrology [address] [place] [address] Charlotte Cope PA-C 200 [facility] [place] [address] 06/06/2024 3:20 PM EDT Office Visit Family Medicine [address] [place] [phone] Cathy Wilburn MD [address] [place] [address] [place] [address] Scheduled Orders Name Type Priority Associated Diagnoses Orde r Schedule CALCIUM Lab Routine Senile osteoporosis Expected: 04/02/2024, Expires: Health Maintenance Due Date Last Done Comments Adult Wellness Visit 05/30/2021 05/30/2020 DXA Scan 10/22/2023 10/21/2021, 09/29, 08/28/2018, Additional history exists COVID-19 Vaccine ( season) 2023 CKD PHOS USE SMARTSET 15662 08/16/202407/29, 05/12/2023, 11/05/2022, Additional history exists Albumin/Creatinine Ratio 08/24/2024 024, 07/19/2022, 04/06/2021, Additional history exists Depression Monitoring 08/24/2024 08/25/2023 DIG LEVEL FOR MEDICATION MONITORING YEARLY 09/20/2024 09/21/2023, 06/22/2023, 04/29/2023, Additional history exists CKD HGB USE SMARTSET 87572 12/13/202412/13, 12/07/2023, 10/28/2023, Additional history exists DTap/Tdap Vaccines (2 - Td or Tdap) 12/31/2029 01/01/2020 (Declined), 12/30/2009, 12/30/2009, Additional history exists Pneumococcal Vaccine: 65+ Years Completed 02/08/2017, 02/23/2006 VITAMIN D LEVEL ONCE IN A LIFETIME-USE SMARTSET# 79908 Completed 08/17/2023, 06/27/2023, 06/22/2023, Additional history exists [...] this encounter Medical Devices Implanted Type Area Cell Biology Scientist Device Identifier Shelf Expiration Date Model / Serial / Lot Lead Novus Bipolar 58cm - [id number] - [id number] Implanted:Qty: 1 on 04/11/2017 by Elda Patterson DO at OR [facility] Left: Heart [employer] : CRM 12/18/2018 5076-58 / [id number] / Description:RIGHT VENTRICLE LEAD Lead Novus Bipolar 52cm - [id number] - [id number] Implanted:Qty: 1 on 04/11/2017 by Elda Patterson DO at OR [facility] Left: Heart [employer] : CRM 12/24/2018 5076-52 / [id number] / Description:RIGHT ATRIAL ROCKY D Pacer Advisa Dr Dorsey - [id number] - [id number] Implanted:Qty: 1 on 04/11/2017 by Elda Patterson DO at OR [facility] Left: Chest [employer] 08/25/2018 A2DR01 / [id number] / documented as of this encounter Visit Diagnoses Diagnosis Senile osteoporosis- Primary documented in this encounter Advance Directives Documents on File Type Date Recorded 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
--- OUTSIDE RECORDS SUMMARY | 2024-01-07 09:42 | External Medical Summary | Summary of Care ---
Author Name Unknown Organization [facility] Address [address] [place] [address] Phone [phone] Care Team Providers Care Light Bulb Replacer Name Role Phone Cathy Wilburn MD Primary Care Provide r Reason for Visit * Reason Onset Date Comments Follow Up 12/23/2023 Encounter Details Date Type Department Care Team (Late st Contact Info) Description 12/23/2023 Telephone [facility], [facility] 132 [employer] [facility] [place] [address] Drea Candelario, LISET [address] [employer] [facility] [place] [address] Follow Up Allergies Active Allergy Reactions Criticality Noted Date [...] 40 MG Oral Tablet (Lipitor)Indication s:Atherosclerosis of [place] coronary artery of [place] heart without angina pectoris,Dyslipidem ia, goal LDL [...] lumbosacral intervertebral disc 02/04/2009 Coronary atherosclerosis of [place] coronary luis ry 02/24/2005 Senile osteoporosis 05/14/2003 [...] 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 LOC PRIM [id number] 02/14/200205/30 Other seborrheic keratosis 10/31/2001 0 06/06/2007 [...] encounter Miscellaneous Notes * Telephone Encounter - Drea Candelario RN - 12/23/2023 4:53 PM EDT Received T/E that patient was unable to make PCP appointment today d/t friend unable to get her outof the building in her wheelchair. Seen earlier in day- patient without complaint of shortness of breath. Lungs- diminished right/leftupper lobe- left lower lobe clear. Spo2- wnl. Nonpitting edema to bilateral LE- right knee with nonpitting edema. Both knees painful- takes oxycodone for pain- effective- boot intact to RLE. Phone call to patient approximately 4:35pm- denies shortness of breath. States a couple of days agoshe was short of breath at bedtime. Does feel as though a lot of it is anxiety- Lorazepam is effective per report. Discussed with patient- encouraged to call [facility] if sob persists following admin of lorazepam. Will schedule phone call for Tuesday for follow up- ? Mobile chest xray- patient voices understanding and is aware that [facility] will call on Tuesday. documented in this encounter Plan of Treatment Upcoming Encounters Date Type Department Care Team (Late st Contact Info) Description 12/26/2023 11:15 AM EDT Scheduled Telephone [facility], [facility] 132 [facility] [place] [address] Coordinator, [facility] [place] [address] 12/26/2023 2:30 PM EDT Nurse Only Rheumatology [address] [place] [phone] [place], Nurse [address] [place] [phone] 12/29/2023 2:00 PM EDT Home Visit [facility], [facility] 132 [facility] [place] [address] Drea Candelario, LISET 132 [facility] [place] [address] 12/30/2023 2:30 PM EDT [facility], [facility] [facility] [address] Gita Bae PA-C [address] [place] [address] Vonnie Robbins, Community Health Beam Doffer [address] [place] [address] 01/06/2024 2:00 PM EST Office Visit Nephrology [address] [place] [address] Charlotte Cope PA-C [address] [place] [address] 01/24/2024 8:30 AM EST Cardiac Studies Cardiology [address] [place] [address] Barbara Pacer [facility] 132 [facility] [place] [address] 02/02/2024 2:30 PM EST Office Visit Hematology/Oncology [facility] 200 [facility] [place] [phone] Mirna Camp CRNP [address] [place] [address] 02/14/2024 1:30 PM EST Office Visit Cardiology, [facility] 132 [facility] [place] [address] Jane Ashley CRNP [address] [place] [phone] 05/15/2024 1:00 PM EDT Office Visit Nephrology [address] [place] [address] Charlotte Cope PA-C 200 [facility] [place] [address] 06/06/2024 3:20 PM EDT Office Visit Family Medicine [address] [place] [phone] Cathy Wilburn MD [address] [place] [address] [place] [address] Health Maintenance Due Date Last Done Comments Adult Wellness Visit 05/30/2021 05/30/2020 DXA Scan 10/22/2023 10/21/2021, 09/29, 08/28/2018, Additional history exists COVID-19 Vaccine ( season) 2023 CKD PHOS USE SMARTSET 47642 08/16/202407/29, 05/12/2023, 11/05/2022, Additional history exists Albumin/Creatinine Ratio 08/24/2024 024, 07/19/2022, 04/06/2021, Additional history exists Depression Monitoring 08/24/2024 08/25/2023 DIG LEVEL FOR MEDICATION MONITORING YEARLY 09/20/2024 09/21/2023, 06/22/2023, 04/29/2023, Additional history exists CKD HGB USE SMARTSET 54536 12/13/202412/13, 12/07/2023, 10/28/2023, Additional history exists DTap/Tdap Vaccines (2 - Td or Tdap) 12/31/2029 01/01/2020 (Declined), 12/30/2009, 12/30/2009, Additional history exists Pneumococcal Vaccine: 65+ Years Completed 02/08/2017, 02/23/2006 VITAMIN D LEVEL ONCE IN A LIFETIME-USE SMARTSET# 69091 Completed 08/17/2023, 06/27/2023, 06/22/2023, Additional history exists [...] this encounter Medical Devices Implanted Type Area Appointment Clerk Device Identifier Shelf Expiration Date Model / Serial / Lot Lead Novus Bipolar 58cm - [id number] - [id number] Implanted:Qty: 1 on 04/11/2017 by Elda Patterson DO at OR [facility] Left: Heart [employer] : CRM 12/18/2018 5076-58 / [id number] / Description:RIGHT VENTRICLE LEAD Lead Novus Bipolar 52cm - [id number] - [id number] Implanted:Qty: 1 on 04/11/2017 by Elda Patterson DO at OR [facility] Left: Heart [employer] : CRM 12/24/2018 5076-52 / [id number] / Description:RIGHT ATRIAL ROCKY D Pacer Advisa Dr Dorsey - [id number] - [id number] Implanted:Qty: 1 on 04/11/2017 by Elda Patterson DO at OR [facility] Left: Chest [employer] 08/25/2018 A2DR01 / [id number] / documented as of this encounter Advance Directives Documents on File Type Date Recorded 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
--- OUTSIDE RECORDS SUMMARY | 2024-01-07 09:42 | External Medical Summary | Summary of Care ---
Author Name Unknown Organization [facility] Address [address] [place] [address] Phone [phone] Care Team Providers Care Director Of Customer Acquisition Name Role Phone Cathy Wilburn MD Primary Care Provide r Reason for Visit * Reason Onset Date Comments Rigging Helper Documentation 12/23/2023 Encounter Details Date Type Department Care Team (Late st Contact Info) Description 12/23/2023 11:30 AM EDT [facility] [address] [facility] [place] [address] [facility] [address] [facility] [address] Allergies Active Allergy Reactions Criticality Noted Date [...] 40 MG Oral Tablet (Lipitor)Indication s:Atherosclerosis of [place] coronary artery of [place] heart without angina pectoris,Dyslipidem ia, goal LDL [...] 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 LOC PRIM [id number] 02/14/200205/30 Other seborrheic keratosis 10/31/2001 0 06/06/2007 [...] encounter Miscellaneous Notes * Telephone Encounter - Gabrielle Ann LCSW - 12/23/2023 11:58 AM EDT Worker was consulted by Drea HUTCHISN CM Follow up with the WAIVER (IEB) process Chart was reviewed. Drea HUTCHINS CM is at Miranda's home. Pt was at [facility]. Presently she is at home and has been evaluated by the [place] [facility] > [place] jail officer. She has evaluated Miranda for the WAIVER (IEB) program. Andra is requesting the Medical Form that is required for NFCE- Be complete by [facility] physician for her convenience. Miranda has been seen by her PCP in October of 2023 and he knows her well. Worker feels the PCP is most appropriate to complete the Medical Form. This worker suggested Andra be called and directed to do the above. Josie HUTCHINS CM in agreement and will make the call. Gabrielle Ann LCSW [facility] AC Rn Delivery [facility] [phone] documented in this encounter Plan of Treatment Upcoming Encounters Date Type Department Care Team (Late st Contact Info) Description 12/23/2023 12:30 PM EDT [facility], [facility] [address] [place] [address] Drea Candelario, RN [address] [place] [address] Arrived 12/23/2023 3:00 PM EDT Office Visit Family Medicine [address] [phone] Arvin Max MD [address] [place] [address] [place] [address] 12/26/2023 2:30 PM EDT Nurse Only Rheumatology [address] [place] [phone] [place], Nurse [address] [place] [phone] 12/28/2023 2:00 PM EDT Office Visit Family Medicine [address] [phone] Ceci Knapp PA-C [address] [place] [address] [place] [address] 12/30/2023 2:30 PM EDT [facility], [facility] [address] [place] [address] Gita Bae PA-C [address] [place] [address] Vonnie Robbins, Community Health Art Therapist [address] [place] [address] 01/06/2024 2:00 PM EST Office Visit Nephrology [address] [place] [address] Charlotte Cope PA-C 200 [facility] [place] [address] 01/24/2024 8:30 AM EST Cardiac Studies Cardiology [address] [place] [address] [facility] 132 [facility] [place] [address] 02/02/2024 2:30 PM EST Office Visit Hematology/Oncology [facility] 200 [facility] [place] [phone] Mirna Camp CRNP 400 [facility] [place] [address] 02/14/2024 1:30 PM EST Office Visit Cardiology, [facility] 132 [facility] [place] [address] Jane Ashley CRNP 400 [facility] [place] [address] 05/15/2024 1:00 PM EDT Office Visit Nephrology [address] [place] [address] Charlotte Cope PA-C [address] [place] [address] 06/06/2024 3:20 PM EDT Office Visit Family Medicine [address] [place] [phone] Cathy Wilburn MD [address] [place] [address] [place] [address] Health Maintenance Due Date Last Done Comments Adult Wellness Visit 05/30/2021 05/30/2020 DXA Scan 10/22/2023 10/21/2021, 09/29, 08/28/2018, Additional history exists COVID-19 Vaccine ( season) 2023 CKD PHOS USE SMARTSET 56418 08/16/202407/29, 05/12/2023, 11/05/2022, Additional history exists Albumin/Creatinine Ratio 08/24/2024 024, 07/19/2022, 04/06/2021, Additional history exists Depression Monitoring 08/24/2024 08/25/2023 DIG LEVEL FOR MEDICATION MONITORING YEARLY 09/20/2024 09/21/2023, 06/22/2023, 04/29/2023, Additional history exists CKD HGB USE SMARTSET 86315 12/13/202412/13, 12/07/2023, 10/28/2023, Additional history exists DTap/Tdap Vaccines (2 - Td or Tdap) 12/31/2029 01/01/2020 (Declined), 12/30/2009, 12/30/2009, Additional history exists Pneumococcal Vaccine: 65+ Years Completed 02/08/2017, 02/23/2006 VITAMIN D LEVEL ONCE IN A LIFETIME-USE SMARTSET# 03997 Completed 08/17/2023, 06/27/2023, 06/22/2023, Additional history exists [...] encounter Medical Devices Implanted Type Area Hotel Assistant Manager Device Identifier Shelf Expiration Date Model / Serial / Lot Lead Novus Bipolar 58cm - [id number] - [id number] Implanted:Qty: 1 on 04/11/2017 by Elda Patterson DO at OR 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
--- OUTSIDE RECORDS SUMMARY | 2024-01-07 09:43 | External Medical Summary | Summary of Care ---
Author Name Unknown Organization [facility] Address [address] [place] [address] Phone [phone] Care Team Providers Care Pocketed Spring Machine Operator Name Role Phone Cathy Wilburn MD Primary Care Provide r Reason for Visit * Reason Onset Date Comments [facility]: Screening 12/22/2023 Encounter Details Date Type Department Care Team (Late st Contact Info) Description 12/22/2023 Telephone [facility], [address] [address] Gita Rajan, [facility] [address] [place] [address] [facility]: Screening Allergies Active Allergy Reactions Criticality Noted Date [...] as of this encounter (statuses as of 12/22/2023) Medications Medication Sig Dispensed Refills Start Date End Date Status Acetaminophen 325 MG Oral Tablet (Tylenol) Take by mouth 2 Tablets every 4 hours as needed for Fever >38C(100.5F), Pain, Mild, Pain, Moderate or Pain, Severe. 100 Tablet 1 2021 Active Atorvastatin Calcium 40 MG Oral Tablet (Lipitor)Indication s:Atherosclerosis of [place] coronary artery of [place] heart without angina pectoris,Dyslipidem ia, goal LDL [...] as of this encounter (statuses as of 12/22/2023) Active Problems Problem Noted Date Diagnosed Date [...] lumbosacral intervertebral disc 02/04/2009 Coronary atherosclerosis of [place] coronary luis ry 02/24/2005 Senile osteoporosis 05/14/2003 Carpal tunnel syndrome 04/23/2003 Moderate mitral regurgitation GENERAL OSTEOARTHROSIS Gastroesophageal reflux disease without esophagi tis Vitamin D deficiency Hyperparathyroidism, primary documented as of this encounter (statuses as of 12/22/2023) Resolved Problems Problem Noted Date Diagnosed Date [...] 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 LOC PRIM [id number] 02/14/200205/30 Other seborrheic keratosis 10/31/2001 0 06/06/2007 [...] as of this encounter (statuses as of 12/22/2023) Immunizations Name Administration Dates Next Due Pneumococcal [...] encounter Miscellaneous Notes * Telephone Encounter - Gita Rajan LPN - 12/22/2023 9:51 AM EDT Miranda Coe was referred as a potential candidate for enrollment for [facility]. A review of this chart was completed and: Miranda meets criteria for [facility]. Jump to Initiation Referring care team was notified via : Epic communication documented in this encounter Plan of Treatment Upcoming Encounters Date Type Department Care Team (Late st Contact Info) Description 12/26/2023 2:30 PM EDT Nurse Only Rheumatology [address] [place] [phone] [place], Nurse Rheum [address] [place] [phone] 12/28/2023 2:00 PM EDT Office Visit Family Medicine [address] [place] [phone] Ceci Knapp PA-C [address] [place] [address] [place] [address] 01/06/2024 2:00 PM EST Office Visit Nephrology [address] [place] [address] Charlotte Cope PA-C [address] [place] [address] 01/24/2024 8:30 AM EST Cardiac Studies Cardiology [address] [place] [address] Lucia Jimenez [facility] [address] [facility] [address] 02/02/2024 2:30 PM EST Office Visit Hematology/Oncology [facility] [address] [place] [phone] Mirna Camp CRNP [address] [facility] [address] 02/14/2024 1:30 PM EST Office Visit Cardiology, [address] [address] Jane Ashley CRNP [address] [facility] [address] 05/15/2024 1:00 PM EDT Office Visit Nephrology [address] [place] [address] Charlotte Cope PA-C [address] [place] [address] 06/06/2024 3:20 PM EDT Office Visit Family Medicine [address] [place] [phone] Cathy Wilburn MD [address] [place] [address] [place] [address] Health Maintenance Due Date Last Done Comments Adult Wellness Visit 05/30/2021 05/30/2020 DXA Scan 10/22/2023 10/21/2021, 09/29, 08/28/2018, Additional history exists COVID-19 Vaccine ( season) 2023 CKD PHOS USE SMARTSET 91049 08/16/202407/29, 05/12/2023, 11/05/2022, Additional history exists Albumin/Creatinine Ratio 08/24/2024 024, 07/19/2022, 04/06/2021, Additional history exists Depression Monitoring 08/24/2024 08/25/2023 DIG LEVEL FOR MEDICATION MONITORING YEARLY 09/20/2024 09/21/2023, 06/22/2023, 04/29/2023, Additional history exists CKD HGB USE SMARTSET 94045 12/13/202412/13, 12/07/2023, 10/28/2023, Additional history exists DTap/Tdap Vaccines (2 - Td or Tdap) 12/31/2029 01/01/2020 (Declined), 12/30/2009, 12/30/2009, Additional history exists Pneumococcal Vaccine: 65+ Years Completed 02/08/2017, 02/23/2006 VITAMIN D LEVEL ONCE IN A LIFETIME-USE SMARTSET# 09592 Completed 08/17/2023, 06/27/2023, 06/22/2023, Additional history exists [...] this encounter Medical Devices Implanted Type Area Security Public Safety Officer Device Identifier Shelf Expiration Date Model / Serial / Lot Lead Novus Bipolar 58cm - [id number] - [id number] Implanted:Qty: 1 on 04/11/2017 by Elda Patterson DO at OR [facility] Left: Heart [employer] : [facility] 12/18/2018 5076-58 / [id number] / Description:RIGHT VENTRICLE LEAD Lead Novus Bipolar 52cm - [id number] - [id number] Implanted:Qty: 1 on 04/11/2017 by Elda Patterson DO at OR [facility] Left: Heart [employer] : [facility] 12/24/2018 5076-52 / [id number] / Description:RIGHT ATRIAL ROCKY D Pacer Advisa Dr Dorsey - [id number] - [id number] Implanted:Qty: 1 on 04/11/2017 by Elda Patterson DO at OR [facility] Left: Chest [employer] 08/25/2018 A2DR01 / [id number] / documented as of this encounter Advance Directives Documents on File Type Date Recorded Patient Gold Layer Expl anation POLST 01/05/2021 [place] OR [facility] FOR LIFE-SUSTAINING TREATMENT * Full Code [...] 9:35 AM 07/03/2008 5:40 PM Care Teams Pocketed Spring Machine Operator Relationship Specialty Start Date End Date Cathy Wilburn MD [address] [place] [address] [place] [phone] PCP - General Family Medicine 12/03/22 documented as of this encounter
--- OUTSIDE RECORDS SUMMARY | 2024-01-07 09:43 | External Medical Summary | Summary of Care ---
Author Name Unknown Organization [facility] Address [address] [place] [address] Phone [phone] Care Team Providers Care Recovery Auditor Name Role Phone Cathy Wilburn MD Primary Care Provide r Reason for Visit * Reason Onset Date Comments Advice 06/17/2023 prolia Encounter Details Date Type Department Care Team (Late st Contact Info) Description 06/17/2023 Telephone Rheumatology [place] [address] [place] [address] Kian Mir MD [address] [place] [address] Advice (prolia) Allergies Active Allergy Reactions Criticality Noted Date [...] as of this encounter (statuses as of 12/21/2023) Medications Medication Sig Dispensed Refills Start Date End Date Status Acetaminophen 325 MG Oral Tablet (Tylenol) Take by mouth 2 Tablets every 4 hours as needed for Fever >38C(100.5F), Pain, Mild, Pain, Moderate or Pain, Severe. 100 Tablet 1 2 Active denosumab (PROLIA) 60 MG/ML injection Inject 60 mg under the skin once. 1 Syringe 7 09/21/19 24 Discontinued oxygen GAS Use 2 L/min(Oxygen) as directed at bedtime. 09/21/19 24 Discontinued Latanoprost 0.005 % Ophthalmic Solution (Xalatan) ONE DROP IN EACH EYE AT BEDTIME 2.5 mL 12 2 07/06/19 24 Discontinued(Re fill) Vitamin B-12 1000 MCG Oral Tablet (Cyanocobalamin) Indications:B12 deficiency TAKE 1 TABLET BY MOUTH ON TUESDAY, TUESDAY AND TUESDAY 30 Tablet 11 3 07/06/19 24 Discontinued(Re fill) Metoprolol Succinate ER 100 MG Oral Tablet Extended Release 24 Hour (toPROL XL)Indications:P aroxysmal atrial fibrillation (HCC) Take 1.5 Tablets by mouth in the morning and 1.5 Tablets before bedtime. 120 Tablet 5 3 06/24/19 24 Discontinued Warfarin Sodium 2 MG Oral Tablet (Jantoven) Take 1-2 Tablets by mouth every evening. 180 Tablet 1 3 07/06/19 24 Discontinued(Re fill) Omeprazole 20 MG Oral Capsule Delayed Release (PriLOSEC)Indica tions:Gastro-eso phageal reflux disease without esophagitis TAKE ONE CAPSULE BY MOUTH IN THE MORNING 90 Capsule 1 4 07/06/19 24 Discontinued(Re fill) Bladder Control Pads Ex AbsorbIndication s:Mixed stress and urge urinary incontinence Daily use of urinary incontinence 72 Each 4 09/21/19 24 Discontinued Diclofenac Sodium 1 % External Gel (Voltaren)Indica tions:Acute bilateral low back pain without sciatica Apply to the affected area daily 350 g 2 4 07/06/19 24 Discontinued(Re fill) DULoxetine HCl 30 MG Oral Capsule Delayed Release Particles (Cymbalta)Indica tions:Moderate episode of recurrent major depressive disorder (HCC) TAKE ONE CAPSULE BY MOUTH IN THE MORNING 90 Capsule 3 4 07/06/19 24 Discontinued(Re fill) amLODIPine Besylate 5 MG Oral Tablet (Norvasc) TAKE ONE TABLET BY MOUTH IN THE MORNING 90 Tablet 3 4 06/24/19 24 Discontinued Sennosides-Docus ate Sodium 8.6-50 MG Oral Tablet (Senexon-S) Take 2 Tablets by mouth every night at bedtime. 180 Tablet 4 07/06/19 24 Discontinued(Re fill) Aspirin Low Dose 81 MG Oral Tablet Delayed Release (aspirin enteric coated) TAKE ONE TABLET IN THE MORNING 90 Tablet 3 4 07/06/19 24 Discontinued(Re fill) Atorvastatin Calcium 40 MG Oral Tablet (Lipitor)Indicat ions:Atheroscler osis of [place] coronary artery of [place] heart without angina pectoris,Dyslipi demia, goal LDL below 70 TAKE ONE TABLET BY MOUTH AT BEDTIME 90 Tablet 3 4 07/06/19 24 Discontinued(Re fill) documented as of this encounter (statuses as of 12/21/2023) Active Problems Problem Noted Date Diagnosed Date Severe tricuspid regurgitation 06/20/2023 Full code status [...] lumbosacral intervertebral disc 02/04/2009 Coronary atherosclerosis of [place] coronary luis ry 02/24/2005 Senile osteoporosis 05/14/2003 Carpal tunnel syndrome 04/23/2003 Moderate mitral regurgitation GENERAL OSTEOARTHROSIS Gastroesophageal reflux disease without esophagi tis Vitamin D deficiency Hyperparathyroidism, primary documented as of this encounter (statuses as of 12/21/2023) Resolved Problems Problem Noted Date Diagnosed Date [...] 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 LOC PRIM [id number] 02/14/200205/30 Other seborrheic keratosis 10/31/2001 0 06/06/2007 [...] as of this encounter (statuses as of 12/21/2023) Immunizations Name Administration Dates Next Due Pneumococcal [...] Telephone Encounter - Grecia Lopez LPN - 06/20/2023 10:59 AM EDT Spoke with [facility] at [facility], "pt not on Calcium ,will have Andi start her on that,pt will keep apt on 06/23" * Telephone Encounter - Zakiya Curran OSA - 06/20/2023 5:01 AM EDT SEE REFERRAL MESSAGE * Telephone Encounter - Grecia Lopez LPN - 06/17/2023 3:55 PM EDT Pt resides at [facility], spoke with [facility],advised her of pts apt. On 06/23 and also to have vitamin D labs done. * Telephone Encounter - Kian Mir MD - 06/17/2023 3:50 PM EDT I would delay prolia. Calcium was 8.7 which is the low end of normal. Her GFR is also dropped. Had recent hospitalization for heart failure. I would contact the patient and find out if she is taking calcium supplements and how much. Would add a least 1 extra dose of calcium a day. May need to repeat blood work in about a month before giving Prolia. Labs are ordered * Telephone Encounter - Grecia Lopez LPN - 06/17/2023 3:14 PM EDT Pt labs done , please review kidney functions. * Telephone Encounter - Grecia Lopez LPN - 06/17/2023 3:10 PM EDT Pt has upcoming apt, please prior auth Prolia documented in this encounter Plan of Treatment Upcoming Encounters Date Type Department Care Team (Late st Contact Info) Description 12/26/2023 2:30 PM EDT Nurse Only Rheumatology [address] [place] [phone] [place], Nurse Rheum [address] [place] [phone] 12/28/2023 2:00 PM EDT Office Visit Family Medicine [address] [place] [phone] Ceci Knapp PA-C [address] [place] [address] [place] [address] 01/06/2024 2:00 PM EST Office Visit Nephrology [address] [place] [address] Charlotte Cope PA-C 200 [facility] [place] [address] 01/24/2024 8:30 AM EST Cardiac Studies Cardiology [address] [place] [address] [facility] [address] [address] 02/02/2024 2:30 PM EST Office Visit Hematology/Oncology [facility] [place] 200 [facility] [place] [phone] Mirna Camp CRNP 400 [facility] [place] [address] 02/14/2024 1:30 PM EST Office Visit Cardiology, [facility] 132 [facility] [place] [address] Jane Ashley CRNP 400 [facility] [place] [address] 05/15/2024 1:00 PM EDT Office Visit Nephrology [address] [place] [address] Charlotte Cope PA-C 200 [facility] [place] [address] 06/06/2024 3:20 PM EDT Office Visit Family Medicine [address] [place] [phone] Cathy Wilburn MD [address] [place] [address] [place] [address] Health Maintenance Due Date Last Done Comments Adult Wellness Visit 05/30/2021 05/30/2020 DXA Scan 10/22/2023 10/21/2021, 09/29, 08/28/2018, Additional history exists COVID-19 Vaccine ( season) 2023 CKD PHOS USE SMARTSET 11565 08/16/202407/29, 05/12/2023, 11/05/2022, Additional history exists Albumin/Creatinine Ratio 08/24/2024 024, 07/19/2022, 04/06/2021, Additional history exists Depression Monitoring 08/24/2024 08/25/2023 DIG LEVEL FOR MEDICATION MONITORING YEARLY 09/20/2024 09/21/2023, 06/22/2023, 04/29/2023, Additional history exists CKD HGB USE SMARTSET 75935 12/13/202412/13, 12/07/2023, 10/28/2023, Additional history exists DTap/Tdap Vaccines (2 - Td or Tdap) 12/31/2029 01/01/2020 (Declined), 12/30/2009, 12/30/2009, Additional history exists Pneumococcal Vaccine: 65+ Years Completed 02/08/2017, 02/23/2006 VITAMIN D LEVEL ONCE IN A LIFETIME-USE SMARTSET# 57148 Completed 08/17/2023, 06/27/2023, 06/22/2023, Additional history exists [...] this encounter Medical Devices Implanted Type Area Awning Hanger Device Identifier Shelf Expiration Date Model / Serial / Lot Lead Novus Bipolar 58cm - [id number] - [id number] Implanted:Qty: 1 on 04/11/2017 by Elda Patterson DO at OR [facility] Left: Heart [employer] : [employer] 12/18/2018 5076-58 / [id number] / Description:RIGHT VENTRICLE LEAD Lead Novus Bipolar 52cm - [id number] - [id number] Implanted:Qty: 1 on 04/11/2017 by Elda Patterson DO at OR [facility] Left: Heart [employer] : [employer]AN 12/24/2018 5076-52 / [id number] / Description:RIGHT ATRIAL ROCKY D Pacer Advisa Dr Dorsey - [id number] - [id number] Implanted:Qty: 1 on 04/11/2017 by Elda Patterson DO at OR [facility] Left: Chest [employer] 08/25/2018 A2DR01 / [id number] / documented as of this encounter Visit Diagnoses Diagnosis Senile osteoporosis- Primary documented in this encounter Advance Directives Documents on File Type Date Recorded Patient Medical Research Tech Michaela MORRIS 01/05/2021 [place] OR [facility] FOR LIFE-SUSTAINING TREATMENT [...] 9:35 AM 07/03/2008 5:40 PM Care Teams Recovery Auditor Relationship Specialty Start Date End Date Cathy Wilburn MD [address] [place] [address] [place] [phone] PCP - General Family Medicine 12/03/22 documented as of this encounter
--- OUTSIDE RECORDS SUMMARY | 2024-01-07 09:43 | External Medical Summary | Summary of Care ---
Author Name Unknown Organization [facility] Address [address] [place] [address] Phone [phone] Care Team Providers Care Button Breaker Operator Name Role Phone Cathy Wilburn MD Primary Care Provide r Reason for Visit * Reason Onset Date Comments [facility]: Screening 12/22/2023 Encounter Details Date Type Department Care Team (Late st Contact Info) Description 12/22/2023 Telephone [facility], [address] [address] Gita Rajan, [facility] [address] [place] [address] [facility]: Screening Allergies Active Allergy [...] 40 MG Oral Tablet (Lipitor)Indication s:Atherosclerosis of [place] coronary artery of [place] heart without angina pectoris,Dyslipidem ia, goal LDL [...] lumbosacral intervertebral disc 02/04/2009 Coronary atherosclerosis of [place] coronary luis ry 02/24/2005 Senile osteoporosis 05/14/2003 [...] 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 LOC PRIM [id number] 02/14/200205/30 Other seborrheic keratosis 10/31/2001 0 06/06/2007 [...] 12/26/2023 2:30 PM EDT Nurse Only Rheumatology [address] [place] [phone] [place], Nurse Rheum [address] [place] [phone] 12/28/2023 2:00 PM EDT Office Visit Family Medicine [address] [place] [phone] Ceci Knapp PA-C [address] [place] [address] [place] [address] 01/06/2024 2:00 PM EST Office Visit Nephrology [address] [place] [address] Charlotte Cope PA-C [address] [place] [address] 01/24/2024 8:30 AM EST Cardiac Studies Cardiology [address] [place] [address] Lucia Jimenez [facility] 132 [facility] [address] 02/02/2024 2:30 PM EST Office Visit Hematology/Oncology [facility] [address] [place] [phone] Mirna Camp CRNP 400 [facility] [place] [address] 02/14/2024 1:30 PM EST Office Visit Cardiology, [address] [address] Jane Ashley CRNP [address] [facility] [address] 05/15/2024 1:00 PM EDT Office Visit Nephrology [address] [place] [address] Charlotte Cope PA-C [address] [place] [address] 06/06/2024 3:20 PM EDT Office Visit Family Medicine [address] [place] [phone] Cathy Wilburn MD [address] [place] [address] [place] [address] Health Maintenance Due Date Last Done Comments Adult Wellness Visit 05/30/2021 05/30/2020 DXA Scan 10/22/2023 10/21/2021, 09/29, 08/28/2018, Additional history exists COVID-19 Vaccine ( season) 2023 CKD PHOS USE SMARTSET 44657 08/16/202407/29, 05/12/2023, 11/05/2022, Additional history exists Albumin/Creatinine Ratio 08/24/2024 024, 07/19/2022, 04/06/2021, Additional history exists Depression Monitoring 08/24/2024 08/25/2023 DIG LEVEL FOR MEDICATION MONITORING YEARLY 09/20/2024 09/21/2023, 06/22/2023, 04/29/2023, Additional history exists CKD HGB USE SMARTSET 02425 12/13/202412/13, 12/07/2023, 10/28/2023, Additional history exists DTap/Tdap Vaccines (2 - Td or Tdap) 12/31/2029 01/01/2020 (Declined), 12/30/2009, 12/30/2009, Additional history exists Pneumococcal Vaccine: 65+ Years Completed 02/08/2017, 02/23/2006 VITAMIN D LEVEL ONCE IN A LIFETIME-USE SMARTSET# 38660 Completed 08/17/2023, 06/27/2023, 06/22/2023, Additional history exists [...] this encounter Medical Devices Implanted Type Area Snuff Container Inspector Device Identifier Shelf Expiration Date Model / Serial / Lot Lead Novus Bipolar 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 - [id number] - [id number] Implanted:Qty: 1 on 04/11/2017 by Elda Patterson DO at OR [facility] Left: Heart [employer] : [facility] 12/18/2018 5076-58 / [id number] / Description:RIGHT VENTRICLE LEAD Lead Novus Bipolar 52cm - [id number] - [id number] Implanted:Qty: 1 on 04/11/2017 by Elda Patterson DO at OR [facility] Left: Heart [employer] : [facility] 12/24/2018 5076-52 / [id number] / Description:RIGHT ATRIAL ROCKY D Pacer Advisa Dr Dorsey - [id number] - [id number] Implanted:Qty: 1 on 04/11/2017 by Elda Patterson DO at OR [facility] Left: Chest [employer] 08/25/2018 A2DR01 / [id number] / documented as of this encounter Advance Directives Documents on File Type Date Recorded Patient Cook Helper Preserves Expl anation POLST 01/05/2021 [place] OR [facility] FOR LIFE-SUSTAINING TREATMENT * Full [...] 9:35 AM 07/03/2008 5:40 PM Care Teams Button Breaker Operator Relationship Specialty Start Date End Date Cathy Wilburn MD [address] [place] [address] [place] [phone] PCP - General Family Medicine 12/03/22 documented as of this encounter
--- OUTSIDE RECORDS SUMMARY | 2024-01-07 09:43 | External Medical Summary | Summary of Care ---
Author Name Unknown Organization [facility] Address [address] [place] [address] Phone [phone] Care Team Providers Care Piped Pocket Machine Operator Name Role Phone Cathy Wilburn MD Primary Care Provide r Reason for Visit * Reason Onset Date Comments [facility]: Engagement 12/22/2023 Encounter Details Date Type Department Care Team (Late st Contact Info) Description 12/22/2023 Telephone [facility], [address] [id number] Nelda Obregon, MARTI [address] [place], [place] [id number] [facility]: Engagement Allergies Active Allergy Reactions Criticality Noted Date [...] 40 MG Oral Tablet (Lipitor)Indication s:Atherosclerosis of [place] coronary artery of [place] heart without angina pectoris,Dyslipidem ia, goal LDL [...] lumbosacral intervertebral disc 02/04/2009 Coronary atherosclerosis of [place] coronary luis ry 02/24/2005 Senile osteoporosis 05/14/2003 [...] 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 LOC PRIM [id number] 02/14/200205/30 Other seborrheic keratosis 10/31/2001 0 06/06/2007 [...] encounter Miscellaneous Notes * Telephone Encounter - Nelda Obregon OSA - 12/22/2023 1:07 PM EDT Outreach to patient for [facility] scheduling. Patient Accepted Date Scheduled: 12/22 Time: 1230 In Person RNCM Special Instructions: na documented in this encounter Plan of Treatment Upcoming Encounters Date Type Department Care Team (Late st Contact Info) Description 12/23/2023 12:30 PM EDT Home Visit [facility] [address] [place] [address] Drea Candelario, LISET [address] [place] [address] 12/26/2023 2:30 PM EDT Nurse Only Rheumatology [address] [place] [phone] [place], Nurse [address] [place] [phone] 12/28/2023 2:00 PM EDT Office Visit Family Medicine [address] [place] [phone] Ceci nKapp PA-C [address] [place] [address] [place] [address] 12/30/2023 2:30 PM EDT Home Visit [facility] [place] [address] [place] [address] Gita Bae PA-C [address] [place] [address] Vonnie Robbins, Community Health Health Claims Examiner [address] [place] [address] 01/06/2024 2:00 PM EST Office Visit Nephrology [address] [place] [address] Charlotte Cope PA-C 200 [facility] [place] [address] 01/24/2024 8:30 AM EST Cardiac Studies Cardiology [address] [place] [address] Lucia Jimenez [facility] 132 [facility] [place] [address] 02/02/2024 2:30 PM EST Office Visit Hematology/On[facility] [address] [place] [phone] Mirna Camp CRNP [address] [place], [place] [address] [address] 02/14/2024 1:30 PM EST Office Visit Cardiology, [facility] 132 [facility] [place] [address] Jane Ashley CRNP [address] [place] [address] 05/15/2024 1:00 PM EDT Office Visit Nephrology [address] [place] [address] Charlotte Cope PA-C [address] [place] [address] 06/06/2024 3:20 PM EDT Office Visit Family Medicine [address] [place] [phone] Cathy Wilburn MD [address] [place] [address] [place] [address] Health Maintenance Due Date Last Done Comments Adult Wellness Visit 05/30/2021 05/30/2020 DXA Scan 10/22/2023 10/21/2021, 09/29, 08/28/2018, Additional history exists COVID-19 Vaccine ( season) 2023 CKD PHOS USE SMARTSET 08088 08/16/202407/29, 05/12/2023, 11/05/2022, Additional history exists Albumin/Creatinine Ratio 08/24/2024 024, 07/19/2022, 04/06/2021, Additional history exists Depression Monitoring 08/24/2024 08/25/2023 DIG LEVEL FOR MEDICATION MONITORING YEARLY 09/20/2024 09/21/2023, 06/22/2023, 04/29/2023, Additional history exists CKD HGB USE SMARTSET 52235 12/13/202412/13, 12/07/2023, 10/28/2023, Additional history exists DTap/Tdap Vaccines (2 - Td or Tdap) 12/31/2029 01/01/2020 (Declined), 12/30/2009, 12/30/2009, Additional history exists Pneumococcal Vaccine: 65+ Years Completed 02/08/2017, 02/23/2006 VITAMIN D LEVEL ONCE IN A LIFETIME-USE SMARTSET# 00552 Completed 08/17/2023, 06/27/2023, 06/22/2023, Additional history exists [...] this encounter Medical Devices Implanted Type Area Community Mental Health Social Worker Device Identifier Shelf Expiration Date Model / Serial / Lot Lead Novus Bipolar 58cm - [id number] - [id number] Implanted:Qty: 1 on 04/11/2017 by Elad Patterson DO at OR [facility] Left: Heart [employer] : [facility] 12/18/2018 5076-58 / [id number] / Description:RIGHT VENTRICLE LEAD Lead Novus Bipolar 52cm - [id number] - [id number] Implanted:Qty: 1 on 04/11/2017 by Elda Patterson DO at OR [facility] Left: Heart [employer] : [facility] 12/24/2018 5076-52 / [id number] / Description:RIGHT ATRIAL ROCKY D Pacer Advisa Dr Dorsey - [id number] - [id number] Implanted:Qty: 1 on 04/11/2017 by Elda Patterson DO at OR [facility] Left: Chest [employer] 08/25/2018 A2DR01 / [id number] / documented as of this encounter Advance Directives Documents on File Type Date Recorded Patient Roads Superintendent Expl anation POLST 01/05/2021 [place] OR [facility] [...] 9:35 AM 07/03/2008 5:40 PM Care Teams Piped Pocket Machine Operator Relationship Specialty Start Date End Date Cathy Wilburn MD [address] [place] [address] [place] [phone] PCP - General Family Medicine 12/03/22 documented as of this encounter
--- OUTSIDE RECORDS SUMMARY | 2024-01-07 09:43 | External Medical Summary | Summary of Care ---
Author Name Unknown Organization [facility] Address [address] [place] [address] Phone [phone] Care Team Providers Care Service Line Coordinator Name Role Phone Cathy Wilburn MD Primary Care Provide r Encounter Details Date Type Department Care Team (Late st Contact Info) Description 12/21/2023 Orders Only Family Medicine [address] [place] [phone] Cathy Wilburn MD [address] [place] [address] [place] [address] Need for case management follow-up*; Closed displaced fracture of metatarsal bone of right foot with routine healing, unspecified metatarsal, subsequent encounter Allergies Active Allergy Reactions Criticality Noted Date [...] 40 MG Oral Tablet (Lipitor)Indication s:Atherosclerosis of [place] coronary artery of [place] heart without angina pectoris,Dyslipidem ia, goal LDL [...] lumbosacral intervertebral disc 02/04/2009 Coronary atherosclerosis of [place] coronary luis ry 02/24/2005 Senile osteoporosis 05/14/2003 [...] 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 LOC PRIM [id number] 02/14/200205/30 Other seborrheic keratosis 10/31/2001 0 06/06/2007 [...] as of this encounter Progress Notes * Hamida Eugene RN - 12/21/2023 9:38 AM EDT Patient was recently [facility] with fall and right foot metatarsal fractures. She is requesting a chair lift as she is having trouble getting out of her chair at times. Thank you! documented in this encounter Plan of Treatment Upcoming Encounters Date Type Department Care Team (Late st Contact Info) Description 12/26/2023 2:30 PM EDT Nurse Only Rheumatology [address] [place] [phone] [place], Nurse Rheum [address] [place] [phone] 12/28/2023 2:00 PM EDT Office Visit Family Medicine [address] [place] [phone] Ceci Knapp PA-C [address] [place] [address] [place] [address] 01/06/2024 2:00 PM EST Office Visit Nephrology [address] [place] [address] Charlotte Cope PA-C [address] [place] [address] 01/24/2024 8:30 AM EST Cardiac Studies Cardiology [address] [place] [address] [facility] [address] [facility] [place] [address] 02/02/2024 2:30 PM EST Office Visit Hematology/Oncology [facility] [address] [place] [phone] Mirna Camp CRNP 400 [place] [address] 02/14/2024 1:30 PM EST Office Visit Cardiology, [facility] 132 [facility] [place] [address] Jane Ashley CRNP 400 [facility] [address] 05/15/2024 1:00 PM EDT Office Visit Nephrology [address] [place] [address] Charlotte Cope PA-C [address] [place] [address] 06/06/2024 3:20 PM EDT Office Visit Family Medicine [address] [place] [phone] Cathy Wilburn MD [address] [place] [address] [place] [address] Health Maintenance Due Date Last Done Comments Adult Wellness Visit 05/30/2021 05/30/2020 DXA Scan 10/22/2023 10/21/2021, 09/29, 08/28/2018, Additional history exists COVID-19 Vaccine ( season) 2023 CKD PHOS USE SMARTSET 23913 08/16/202407/29, 05/12/2023, 11/05/2022, Additional history exists Albumin/Creatinine Ratio 08/24/2024 024, 07/19/2022, 04/06/2021, Additional history exists Depression Monitoring 08/24/2024 08/25/2023 DIG LEVEL FOR MEDICATION MONITORING YEARLY 09/20/2024 09/21/2023, 06/22/2023, 04/29/2023, Additional history exists CKD HGB USE SMARTSET 28687 12/13/202412/13, 12/07/2023, 10/28/2023, Additional history exists DTap/Tdap Vaccines (2 - Td or Tdap) 12/31/2029 01/01/2020 (Declined), 12/30/2009, 12/30/2009, Additional history exists Pneumococcal Vaccine: 65+ Years Completed 02/08/2017, 02/23/2006 VITAMIN D LEVEL ONCE IN A LIFETIME-USE SMARTSET# 86439 Completed 08/17/2023, 06/27/2023, 06/22/2023, Additional history exists [...] this encounter Medical Devices Implanted Type Area Disaster Or Damage Control Specialist Device Identifier Shelf Expiration Date Model / Serial / Lot Lead Novus Bipolar 58cm - [id number] - [id number] Implanted:Qty: 1 on 04/11/2017 by Elda Patterson DO at OR [facility] Left: Heart [employer] : [employer] 12/18/2018 5076-58 / [id number] / Description:RIGHT VENTRICLE LEAD Lead Novus Bipolar 52cm - [id number] - [id number] Implanted:Qty: 1 on 04/11/2017 by Elda Patterson DO at OR [facility] Left: Heart [employer] : [facility] 12/24/2018 5076-52 / [id number] / Description:RIGHT ATRIAL ROCKY D Pacer Advisa Dr Dorsey - [id number] - [id number] Implanted:Qty: 1 on 04/11/2017 by Elda Patterson DO at OR [facility] Left: Chest [employer] 08/25/2018 A2DR01 / [id number] / documented as of this encounter Visit Diagnoses Diagnosis Need for case management follow-up- Primary Closed displaced fracture of metatarsal bone of right foot with routine healing, unspecified metatarsal, subsequent encounter documented in this encounter Advance Directives Documents on File Type Date Recorded Patient Casting Associate Expl anation POL 01/05/2021 [place] [facility]-SUSTAINING TREATMENT * Full Code [...] AM 07/03/2008 5:40 PM Care Teams Service Line Coordinator Relationship Specialty Start Date End Date Cathy Wilburn MD [address] [place] [address] [place] [address] PCP - General Family Medicine 12/03/22 documented as of this encounter
--- OUTSIDE RECORDS SUMMARY | 2024-01-07 09:43 | External Medical Summary | Summary of Care ---
Author Name Unknown Organization [facility] Address [address] [place] [address] Phone [phone] Care Team Providers Care Branch Credit Counselor Name Role Phone Cathy Wilburn MD Primary Care Provide r Reason for Visit * Reason Onset Date Comments Other 12/21/2023 Encounter Details Date Type Department Care Team (Late st Contact Info) Description 12/21/2023 Telephone Care Coordination and Integration [address] [place] [address] Hamida Eugene RN [address] [place], [place] [phone] Other Allergies Active Allergy Reactions Criticality Noted Date [...] 40 MG Oral Tablet (Lipitor)Indication s:Atherosclerosis of [place] coronary artery of [place] heart without angina pectoris,Dyslipidem ia, goal LDL [...] lumbosacral intervertebral disc 02/04/2009 Coronary atherosclerosis of [place] coronary luis ry 02/24/2005 Senile osteoporosis [...] 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 LOC PRIM [id number] 02/14/200205/30 Other seborrheic keratosis 10/31/2001 0 06/06/2007 [...] encounter Miscellaneous Notes * Telephone Encounter - Paul Daniel PHARM Tech - 12/21/2023 10:53 AM EDT Pt calling to get in contact with her Corduroy Cutter Operator Hamida Eugene RN . Contacted clinic nurse line, stated that nurse outreach case manager is in a meeting and will call Pt back. Called Pt back to inform, line got disconnected while Pt was on hold. Thank you, Paul Daniel Policy Checker [facility] 12/21/2023,11:02 AM documented in this encounter Plan of Treatment Upcoming Encounters Date Type Department Care Team (Late st Contact Info) Description 12/26/2023 2:30 PM EDT Nurse Only Rheumatology [address] [place] [phone] [place], Nurse Rheum [address] [place] [address] 12/28/2023 2:00 PM EDT Office Visit Family Medicine [address] [place] [phone] Ceci Knapp PA-C [address] [place] [address] [place] [address] 01/06/2024 2:00 PM EST Office Visit Nephrology [address] [place] [address] Charlotte Cope PA-C [address] [place] [address] 01/24/2024 8:30 AM EST Cardiac Studies Cardiology [address] [place] [address] Lucia Jimenez [facility] 132 [facility] [address] 02/02/2024 2:30 PM EST Office Visit Hematology/Oncology [facility] [address] [place] [phone] Mirna Camp CRNP 400 [facility] [place] [address] 02/14/2024 1:30 PM EST Office Visit Cardiology, [address] [address] Jane Ashley CRNP 400 [facility] [address] 05/15/2024 1:00 PM EDT Office Visit Nephrology [address] [place] [address] Charlotte Cope PA-C [address] [place] [address] 06/06/2024 3:20 PM EDT Office Visit Family Medicine [address] [place] [phone] Cathy Wilburn MD [address] [place] [address] [place] [address] Health Maintenance Due Date Last Done Comments Adult Wellness Visit 05/30/2021 05/30/2020 DXA Scan 10/22/2023 10/21/2021, 09/29, 08/28/2018, Additional history exists COVID-19 Vaccine ( season) 2023 CKD PHOS USE SMARTSET 12598 08/16/202407/29, 05/12/2023, 11/05/2022, Additional history exists Albumin/Creatinine Ratio 08/24/2024 024, 07/19/2022, 04/06/2021, Additional history exists Depression Monitoring 08/24/2024 08/25/2023 DIG LEVEL FOR MEDICATION MONITORING YEARLY 09/20/2024 09/21/2023, 06/22/2023, 04/29/2023, Additional history exists CKD HGB USE SMARTSET 10359 12/13/202412/13, 12/07/2023, 10/28/2023, Additional history exists DTap/Tdap Vaccines (2 - Td or Tdap) 12/31/2029 01/01/2020 (Declined), 12/30/2009, 12/30/2009, Additional history exists Pneumococcal Vaccine: 65+ Years Completed 02/08/2017, 02/23/2006 VITAMIN D LEVEL ONCE IN A LIFETIME-USE SMARTSET# 19646 Completed 08/17/2023, 06/27/2023, 06/22/2023, Additional history exists [...] this encounter Medical Devices Implanted Type Area Tire Shop Mechanic Device Identifier Shelf Expiration Date Model / Serial / Lot Lead Novus Bipolar 58cm - [id number] - [id number] Implanted:Qty: 1 on 04/11/2017 by Elda Patterson DO at OR [facility] Left: Heart [employer] : [facility] 12/18/2018 5076-58 / [id number] / Description:RIGHT VENTRICLE LEAD Lead Novus Bipolar 52cm - [id number] - [id number] Implanted:Qty: 1 on 04/11/2017 by Elda Patterson DO at [facility] Left: Heart [employer] : [facility] 12/24/2018 5076-52 / [id number] / Description:RIGHT ATRIAL ROCKY D Pacer Advisa Dr Dorsey - [id number] - [id number] Implanted:Qty: 1 on 04/11/2017 by Elda Patterson DO at OR [facility] Left: Chest [employer] 08/25/2018 A2DR01 / [id number] / documented as of this encounter Advance Directives Documents on File Type Date Recorded Patient Er Medical Technician Expl anation POLST 01/05/2021 [place] OR [facility] FOR LIFE-SUSTAINING TREATMENT * Full Code [...] 9:35 AM 07/03/2008 5:40 PM Care Teams Branch Credit Counselor Relationship Specialty Start Date End Date Cathy Wilburn MD [address] [place] [address] [place] [phone] PCP - General Family Medicine 12/03/22 documented as of this encounter
--- OUTSIDE RECORDS SUMMARY | 2024-01-07 09:43 | External Medical Summary | Summary of Care ---
Author Name Unknown Organization [facility] Address [address] [place] [address] Phone [phone] Care Team Providers Care Cook [employer] Name Role Phone Cathy Wilburn MD Primary Care Provide r Reason for Referral * Evaluate & Treat - Unlimited Visits (Within 10 days (routine)) - Authorized Specialty Diagnoses / Procedures Referred By Contac t Referred To Contact HOME CARE / Home Care Diagnoses Closed displaced fracture of metatarsal bone of right foot with routine healing, unspecified metatarsal, subsequent encounter DVT, lower extremity, distal, acute, right (HCC) Hyperparathyroidism (HCC) Paroxysmal atrial fibrillation (HCC) Chronic diastolic heart failure (HCC) Nonischemic cardiomyopathy (HCC) 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 [facility] Puentes Documentation of Ztgh-[id number] Encounter Addendum Patient Name: Miranda Antonette Coe I certify that this patient is under my care and that I, or a nurse practitioner or physician's clerical assistant working with me, had a [id number] encounter that meets the physician [id number] encounter requirements with this patient on: 12/20/2023 The encounter with the patient was in whole, or in part, for the following medical condition, which is the primary reason for home health care (List medical condition): Gait dysfunction I certify that, based on my findings, the following services are medically necessary home health services: Nursing and Physical Therapy To provide the following care/treatments: (All hospitalists not following the patient after discharge should complete this section): Medication management, gait/ADL training Primary Care Physician to follow home care plan of care after discharge: Dr. Wilburn My clinical findings support the need for the above services because: Patient debilitated from fall and fractures of all 5 metatarsals of right foot Further, I certify that my clinical findings support that this patient is homebound (i.e. Absences from home require considerable and taxing effort and are for medical reasons or uatsdin services or infrequently or of short duration when for other reason) because: Patient requires taxing effort to leave the house and not able to drive Physician Signature: Date of Signature: Physician Printed Name: Arvin Max MD Reason for Visit * Reason Onset Date Comments Long-Term Visit - Discharge 12/20/2023 Encounter Details Date Type Department Care Team (Latest Contact Info) Description 12/20/2023 10:00 AM EDT Long-Term Visit [address] [place] [id number] Arvin Max MD [address] [place] [address] [place] [phone] Closed displaced fracture of metatarsal bone of right foot with routine healing, unspecified metatarsal, subsequent encounter*; DVT, lower extremity, distal, acute, right (HCC); Hyperparathyroidism (HCC); Lipoma of torso; Paroxysmal atrial fibrillation (HCC); Chronic diastolic heart failure (HCC); Atherosclerosis of knik coronary artery 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 pectoris; Nonischemic cardiomyopathy (HCC); 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 100 Tablet 1 2021 Active Atorvastatin Calcium 40 MG Oral Tablet (Lipitor)Indicatio ns:Atherosclerosis of knik coronary artery 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 pectoris,Dyslipide martin, goal LDL [...] 12/07/2023 Active LORazepam 0.5 MG Oral Tablet (Ativan)Indication [...] oxyCODONE HCl 5 MG Oral Tablet (Oxy IR)Indications:Soco sed displaced fracture of metatarsal bone of right foot with routine healing, unspecified metatarsal, subsequent encounter Take 1 Tablet by mouth every 8 hours as needed for Pain, Severe. 8 Tablet 12/20/2023 Active oxyCODONE HCl 5 MG Oral Tablet (Oxy IR)Indications:Soco sed displaced fracture of metatarsal bone of right foot with routine healing, unspecified metatarsal, subsequent encounter Take 1 Tablet by mouth every 8 hours as needed for Pain, Severe. 15 Tablet 12/07/2023 Discontinue d(Refill) documented as of this encounter (statuses as of 12/20/2023) Active Problems Problem Noted Date Diagnosed Date [...] as of this encounter (statuses as of 12/20/2023) Resolved Problems Problem Noted Date Diagnosed Date [...] 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 LOC PRIM [id number] 02/14/200205/30 Other seborrheic keratosis 10/31/2001 0 06/06/2007 [...] as of this encounter (statuses as of 12/20/2023) Immunizations Name Administration Dates Next Due Pneumococcal [...] No 09/07/2023 Does the household have a [facility] source of income? (Household - for [...] Progress Notes * Arvin Max MD - 12/20/2023 10:15 AM EDT DISCHARGE NOTE TRANSITION EVENT: Type: Discharge to home Date: December 19 Code Status: Full Code Name: Miranda Coe Date of : 1935 This note pertains to care provided at [facility]. Please see facility medical record for original note. This [facility] be [facility]. Editing or addending needs to occur in the facilities medical record. Discharge Medications: Current Outpatient Medications Medication Sig Dispense Refill oxyCODONE HCl 5 MG Oral Tablet (Oxy IR) Take 1 Tablet by mouth every 8 hours as needed for Pain, Severe. 8 Tablet 0 Acetaminophen 325 MG Oral Tablet (Tylenol) Take [...] TUESDAY, TUESDAY AND TUESDAY 30 Tablet 11 Bladder Control Pads Ex Absorb Use as directed. Prolia 60 MG/ML Subcutaneous Solution Prefilled Syringe (Denosumab) Inject 60 mg under the skin once. Digoxin 125 MCG Oral Tablet (Lanoxin) Take 1 Tablet by mouth once a day on Tuesday, Tuesday, and Tuesday only. Magnesium Chloride 64 MG Oral Tablet Delayed Release (Mag-64) Take 1 Tablet by mouth in the morning. oxygen IN GAS Use 2 L/min(Oxygen) as directed at bedtime. Torsemide 10 MG Oral Tablet (Demadex) Take 1 Tablet by mouth in the morning. Torsemide 5 MG Oral Tablet (Demadex) Take 1 Tablet by mouth in the morning. Apixaban 2.5 MG Oral Tablet (Eliquis) Take [...] TWO TABLETS AT BEDTIME 180 Tablet 1 Potassium Chloride ER 10 MEQ Oral Capsule Extended Release TAKE ONE CAPSULE IN THE MORNING 30 Capsule 2 Ferrous Sulfate 325 (65 Fe) MG Oral Tablet (FeroSul) Take 1 Tablet by mouth every other day. 14 Tablet 5 Polyethylene Glycol 3350 17 GM/SCOOP Oral Powder (MiraLax) Take 17 g by mouth in the morning. Dissolve one heaping tablespoon in 8 ounces of water or juice.. LORazepam 0.5 MG Oral Tablet (Ativan) Take 0.5 Tablets by mouth daily as needed for Anxiety. 15 Tablet 0 Latanoprost 0.005 % Ophthalmic Solution (Xalatan) Instill 1 Drop into both eyes at bedtime. Lidocaine 4 % External Patch (Aspercreme) Place 1 Patch over 12 hours topically on the skin daily. No current facility-administered medications for this visit. S: Miranda Coe is being discharged from [facility] to home. Admitted to [facility] on 12/06/2023 for PT/OT. Future recommendations Patient noted soft tissue lump on right waist areaof abdomen on the day of discharge. Exam appears consistent with lipoma. She states it is sore. Recommend further observation of this area for changes. She saw orthopedics 12/19/23 and is to wear thewalking boot to the right lower extremity for 1 more week and [facility]. Patient wishes to establish with endocrinology locally for hyperparathyroidism and was referred to [facility] [place] [place] by hospital. From Admission H&P: "Recently admitted to [facility] on 11/28/23 because of fall with fractures of thebases of all five right metatarsals and was transferred here and admitted on 12/06/2023. Patient of Dr. Wilburn known to facility from previous admissions with PMH of PAF on Eliquis, h/o DVT and PE on Eliquis as above, h/o retroperitoneal bleed in August of 2023, CAD, h/o colon cancer s/p hemicolectomy, hypertension, stage 3b CKD, dyslipidemia, GERD, primary hyperparathyroidism, osteoporosis, MARTI on nocturnal oxygen, iron deficiency, s/p pacemaker, chronic combined systolic and diastolic CHF, depression and anxiety who fell at home. Patient states she was walking with her walker when her knees gave out and she fell with her right foot twisted underneath her. She had immediate pain in the right foot and called EMS. In the ED, right foot x-ray showed fractures throughout the bases of all 5 metatarsals with the 4thand 5th metatarsal fractures appearing comminuted. Lisfranc injury could not be entirely excluded. Head and cervical spine CT's negative for acute injury. CXR showed NAD. EKG showed a v-paced rhythm.CBC was essentially normal. BUN was 33 and creatinine was 1.79. Calcium was 11.2. Vitamin D 36.6. Ionized calcium high at 1.41. PTH was 84 (last PTH in [facility] was over 200). Patient was admitted and seen by orthopedics, who recommended conservative treatment. They recommended boot for weightbearing x 1 month, compression with ELGIN wrap, ice, and to follow-up with orthopedics in 1 month. She was seen by [facility]. Her pain was controlled with tylenol and oxycodone PRN. She was started on Miralax. Her torsemide was held for 2 days due to mild VINITA. This was resumed prior to discharge. Her recent baseline of creatinine appears to be 1.6-1.7. Patient's calcium remained high throughout her admission around upper 10 to low 11-range. Her PTH in July was 262. Her PTH was normal at 84 on this admission. She was recommended to follow-up with endocrinology. Patient has been seeing [place] [facility] (last visit 03/2023). She is due for follow-up but has difficulty traveling to [place] and is considering transferring to [facility] endocrinology. Patient had a parathyroid adenoma excised in 2008. Patient is now admitted for PT/OT. She lives alone. Having quite a bit of pain in the right foot. Her oxycodone did not come from the pharmacy last night. She did take Tylenol. Appetite is good. She denies chest pain of shortness of breath." Has history of : Past Medical History: Diagnosis Date Acute pulmonary embolism ([facility]) 07/17/2021 Allergic rhinitis 10/06/2012 Anxiety state 05/02/2009 Asthma, severity to be determined Atrial premature beats Benign neoplasm of colon 1991 hyperplastic polyp Benign neoplasm of skin Benign paroxysmal vertigo Cardiac pacemaker in situ 04/19/2017 Coronary atherosclerosis of knik coronary artery 02/01 Degeneration of lumbosacral intervertebral disc 02/04/2009 Depressive disorder, not elsewhere classified 05/02/2009 Diffuse cystic mastopathy Diffuse cystic mastopathy DVT, lower extremity, distal, acute, right ([facility]) 06/03/2021 Dyslipidemia, goal LDL below 100 05/28/2014 Dyslipidemia, goal LDL below 70 10/09/2009 Esophageal reflux Essential hypertension with goal blood pressure less than 140/90 11/24/2015 Ganglion of tendon left foot Generalized osteoarthritis HTN, goal below 130/80 02/04/2009 HTN, goal below 140/90 05/28/2014 Hypercalcemia 11/04 Hyperparathyroidism, primary ([facility]) Hyperparathyroidism, unspecified ([facility]) 07/02/2008 RLP Parathyroid adenoma resection Fam Smith, July 02, 2008 Hypertension goal BP (blood pressure) < 140/80 02/25/2014 Ischemic cardiomyopathy 02/01 LVEF 40 % on cath Kidney disease, chronic, stage III (GFR 30-59 ml/min) ([facility]) 04/08/2015 LAE (left atrial enlargement) 06/03/2021 Duplicate Localized, primary osteoarthritis of hand 02/04/2011 Malignant neoplasm of ascending colon ([facility]) 05/12/2021 S/P colectomy-No current treatment [...] 08/29 low B12 level Vitamin D deficiency Patient Active Problem List Diagnosis Carpal tunnel syndrome Senile osteoporosis Coronary atherosclerosis of knik coronary artery Moderate mitral regurgitation GENERAL OSTEOARTHROSIS [...] distal, acute, right (HCC) History of hemicolectomy Closed displaced fracture of metatarsal bone of right foot with routine healing Malignant neoplasm of colon (HCC) Past Surgical History: Procedure Laterality Date CATHETERIZE LEFT HEART THRU SKIN 02/18/2005 Dr. [place]ter [place] [facility] [place] [facility] [place] 1 V[place] 03/19/2001 PAH--the heart appears [...] - invasive adenocarcinoma, adenomatous polyps, diverticulosis / [facility] COLONOSCOPY, DIAGNOSTIC (RECTUM) N/A 06/24/2022 multiple polyps/few angiodysplastic lesions ascending colon/hemorrhoids/biopsies show adenomatous polyps/recall 6 months/Colonoscopy/[facility] COLONOSCOPY, DIAGNOSTIC (RECTUM) N/A 12/09/2022 poor prep/biopsies normal/Colonoscopy/[facility] COLONOSCOPY, SURGERY REFERRAL OP 07/30/2003 Dr. Schultz - normal EGD, FLEXIBLE, DIAGNOSTIC 01/15/2021 normal bx / [facility] EXPLORE PARATHYROID GLANDS 07/02/2008 PARATHYROIDECTOMY performed by FAM SMITH at OR [facility] INFORMATION FACIAL FX INFORMATION L hand tumor INSERT/REPLACE PACEMAKER,ATRIAL/VENTRICULAR Left 04/11/2017 NEW DDD PACEMAKER IMPLANT performed by Elda Patterson DO at OR [facility] INSERTION OF LENS PROSTHESIS 07/05/2012 right eye, dr ortega IR ARTERIAL INTERVENTION 09/21/2023 KNEE ARTHROSCOPY, DIAGNOSTIC 01/28/1994 left knee LAPAROSCOPIC COLECTOMY PARTIAL WITH ANASTOMOSIS 04/27/2021 right hemicolectomy, Dr. Salamanca [facility] CARDIAC THALLIUM STRESS, OUTSIDE FILMS 01/28/1998 negative PARTIAL REMOVAL OF COLON Right 04/27/2021 right hemicolectomy with anastamosis for ascending colon cancer--Dr. Ashok Salamanca PERC STENT/CHEST VERTEBRAL ARTERY, INITIAL 02/18/2005 LAD RESEARCH PROJECT COORDINATOR VEIN LIGATION W/ GRAFT, 1 LEG LLE REMOVE TONSILS & ADENOIDS, AGE 12+ SIGMOIDOSCOPY, DIAGNOSTIC 07/06/93 & 10/06/98 Dr. Schultz TOTAL ABD HYSTERECTOMY W/WO REMOVAL OF TUBE(S) 30 yo prolapse - has ovaries in UPPER GI ENDOSCOPY 2020 normal stomach, biopsied. normal examined duodenum, normal examined jejunem VASC RENAL VASCULAR SCAN-COMPLETE 06/29/2007 no renal artery stenosis Family History Problem Relation Name Age of Onset Diabetes Brother Cancer Mother lymphoma Diabetes Sister Arthritis Son rheumatic fever, Osteo Arthritis Other (Other) Son ruptured diaphragm as , lung collapsed Diabetes Son borderline Family Status Relation Status Mo at age 66 lymphoma Fa at age ? unknown Sis Alive DM Sis Alive Sis Alive Sis Alive Sis Alive Sis at age 46 sucide Bro DM and metastatic lung cancer at 70 yo Bro at age 9 accident Gian Alive Gian Alive Son Alive rheumatic fever & paranoid schizophrenia & EtOH abuse Son Alive Son Alive Bro (Not Specified) Sis (Not Specified) Son (Not Specified) Son (Not Specified) Son (Not Specified) Social History Socioeconomic History Marital status: Spouse name: Mian Number of children: 5 Years of education: Not on file Highest education level: Not on file Occupational History Occupation: NA Employer: [id number] Comment: retired 06/28/99 Tobacco Use Smoking [...] on file Food Insecurity: No Food Insecurity (09/21/2023) Food Insecurity Do you need food for [...] on file Transportation Needs: No Transportation Needs (09/21/2023) Transportation Needs Do you have trouble getting [...] and over): Rarely Housing Stability: Low Risk (09/21/2023) Housing Stability Do you currently live in a snf or have no steady place to sleep [...] - for ages0-17 years): Not on file Review of patient's allergies [...] (Allura Red) Hives Erythromycin Nausea/vomiting Upset stomach Current Outpatient Medications Medication Sig Dispense Refill Acetaminophen 325 MG Oral Tablet (Tylenol) Take by mouth 2 Tablets every 4 hours as needed for Fever >38C(100.5F), Pain, Mild, Pain, Moderate or Pain, Severe. 100 Tablet 1 Apixaban 2.5 MG Oral Tablet (Eliquis) Take 1 Tablet by mouth in the morning and 1 Tablet before bedtime. 60 Tablet 2 Atorvastatin Calcium 40 MG Oral Tablet (Lipitor) Take 1 Tablet by mouth at bedtime. 90 Tablet 3 Bladder Control Pads Ex Absorb Use as directed. Cholecalciferol 25 MCG (1000 UT) Oral Capsule Take 2 Capsules by mouth in the morning. 180 Capsule 1 Digoxin 125 MCG Oral Tablet (Lanoxin) Take 1 Tablet by mouth once a day on Tuesday, Tuesday, and Tuesday only. DULoxetine HCl 30 MG Oral Capsule Delayed Release Particles (Cymbalta) Take 1 Capsule by mouth in the morning. In the morning.. 90 Capsule 3 Ferrous Sulfate 325 (65 Fe) MG Oral Tablet (FeroSul) Take 1 Tablet by mouth every other day. 14 Tablet 5 Latanoprost 0.005 % Ophthalmic Solution (Xalatan) Instill 1 Drop into both eyes at bedtime. Lidocaine 4 % External Patch (Aspercreme) Place 1 Patch over 12 hours topically on the skin daily. LORazepam 0.5 MG Oral Tablet (Ativan) Take 0.5 Tablets by mouth daily as needed for Anxiety. 15 Tablet 0 Magnesium Chloride 64 MG Oral Tablet Delayed Release (Mag-64) Take 1 Tablet by mouth in the morning. Metoprolol Succinate ER 100 MG Oral Tablet Extended Release 24 Hour (toPROL XL) Take 1 Tablet by mouth in the morning and 1 Tablet before bedtime. 180 Tablet 0 Omeprazole 20 MG Oral Capsule Delayed Release (PriLOSEC) Take 1 Capsule by mouth in the morning. Inthe morning.. 90 Capsule 1 oxyCODONE HCl 5 MG Oral Tablet (Oxy IR) Take 1 Tablet by mouth every 8 hours as needed for Pain, Severe. 8 Tablet 0 oxygen IN GAS Use 2 L/min(Oxygen) as directed at bedtime. Polyethylene Glycol 3350 17 GM/SCOOP Oral Powder (MiraLax) Take 17 g by mouth in the morning. Dissolve one heaping tablespoon in 8 ounces of water or juice.. Potassium Chloride ER 10 MEQ Oral Capsule Extended Release TAKE ONE CAPSULE IN THE MORNING 30 Capsule 2 Prolia 60 MG/ML Subcutaneous Solution Prefilled Syringe (Denosumab) Inject 60 mg under the skin once. Senexon-S 8.6-50 MG Oral Tablet (senna-docusate) TAKE TWO TABLETS AT BEDTIME 180 Tablet 1 Torsemide 10 MG Oral Tablet (Demadex) Take 1 Tablet by mouth in the morning. Torsemide 5 MG Oral Tablet (Demadex) Take 1 Tablet by mouth in the morning. Vitamin B-12 1000 MCG Oral Tablet (Cyanocobalamin) TAKE 1 TABLET BY MOUTH ON TUESDAY, TUESDAY AND TUESDAY 30 Tablet 11 No current facility-administered medications for this visit. Results for orders placed or performed in visit on 12/14/23 BASIC METABOLIC PANEL Result Value Ref Range BUN 28 (H) 6 - 20 mg/dL CREATININE 1.3 (H) 0.5 - 1.0 mg/dL EGFR 40 (L) >=60 mL/min SODIUM 141 135 - 146 mmol/L POTASSIUM 4.5 3.5 - 5.1 mmol/L CHLORIDE 102 98 - 107 mmol/L CO2 27 22 - 32 mmol/L ANION GAP 12 7 - 15 mmol/L GLUCOSE 97 70 - 120 mg/dL CALCIUM 10.5 (H) 8.4 - 10.2 mg/dL HGB Result Value Ref Range HGB 11.5 (L) 12.0 - 15.3 g/dL HCT Result Value Ref Range HCT 38.4 36.0 - 45.2 % *Note: Due to a large number of results and/or encounters for the requested time period, some results have not been displayed. A complete set of results can be found in Results Review. Review of Systems: Constitutional ROS: No change in weight, + weakness, No fatigue and No fevers, sweats, or chills Eye ROS: No recent significant change in vision, No eye pain, redness, discharge and No diplopia Ear ROS: No ear pain, No drainage, No tinnitus or vertigo and No recent change in hearing Nose ROS: No nasal stuffiness and No significant epistaxis Mouth/Throat ROS: No thrush or No sore throat Neck ROS: No lumps or masses, No swollen glands, No recent swelling in thyroid area and No significant pain in neck Pulmonary ROS: No cough, sputum, or hemoptysis, No wheezing, No shortness of breath and No recent change in breathing Cardiovascular ROS: No chest pain, No shortness of breath, No edema, + palpitations and No syncope.+atrial fibrillation Gastrointestinal ROS: No abdominal pain, No change in bowel habits, No significant change in appetite, No nausea, vomiting, diarrhea, or constipation and No dysphagia Musculoskeletal/Extremities ROS: +as per HPI Skin/Integumentary ROS: No rash and No itching Neurologic ROS: No headaches and No seizures Psychiatric ROS: No depression, No anxiety and No psychosis Sleep: No sleep disorders SNF course of stay: Yes - Patient did well with PT/OT. Pain controlled with Tylenol and oxycodone, which she has been taking less of Adequate nutrition/fluids: Yes Bowel/Bladder dysfunction: No Assistive Devices: with walker ADL: independent O: PHYSICALEXAM: I reviewed the most recent facilities vitals. General: alert, no distress, well nourished and well developed Head: Normocephalic, No masses, lesions, tenderness or abnormalities Eye Exam: Conjunctiva are pink and non-injected, sclera clear Ears: External ears normal Nose: no mucosal erythema, no mucosal edema, no purulent discharge Oropharynx: no exudate, no erythema, lips, buccal mucosa, and tongue normal and mucous membranes are moist Neck: supple, no adenopathy, non-tender, neck veins flat, trachea midline Heart: irregularly irregular, no murmurs and no gallops Lungs: normal respiratory rate and rhythm, no chest wall tenderness, lungs clear to auscultation Pulses: radial=2/4 Abdomen: abdomen soft, non-tender, normal bowel sounds and no organomegaly, small soft ovoid soft tissue density on right lateral flank/waist area Extremities: no edema, no clubbing, no cyanosis. +boot in place to right lower extremity. +varicoseveins but no pitting edema Neuro Exam: alert & oriented x 3 with fluent speech, no focal motor/sensory deficits A: Closed displaced fracture of metatarsal bone of right foot with routine healing, unspecified metatarsal, subsequent encounter (Primary)--follow-up with orthopedics as scheduled. Is to wear the boot to the right lower extremity for one more week. Following with [facility]. - oxyCODONE HCl 5 MG Oral Tablet (Oxy IR); Take 1 Tablet by mouth every 8 hours as needed for Pain,Severe. DVT, lower extremity, distal, acute, right (HCC)--continue Eliquis 2.5 mg twice daily. Dose lowereddue to recent retroperitoneal hematoma Hyperparathyroidism (HCC)--planning to transfer to [facility] endocrinology Lipoma of torso--patient noted today on day of discharge that it is sore. Recommend follow-up with PCP and oncology. Paroxysmal atrial fibrillation (HCC)--rate controlled with digoxin and metoprolol succinate 100 mg twice daily. Chronic diastolic heart failure (HCC)--appears compensated. Continue torsemide 15 mg daily. Atherosclerosis of knik coronary artery 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 pectoris--no new cardiac symptoms. Nonischemic cardiomyopathy (HCC)--appears euvolemic. 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 P: 1. Discharge to home 2. Home Health was consulted for nursing, PT, and OT. 3. Copy of chart sent to PCP 4. Patient to follow up with PCP within 7 days. 5. Auto Technician: N/A 6. I spent 35 minutes on discharge. 7. Group Home Home Treatment Given: n/a documented in this encounter Plan of Treatment Upcoming Encounters Date Type Department Care Team (Late st Contact Info) Description 12/26/2023 2:30 PM EDT Nurse Only Rheumatology [address] [place] [phone] [place], Nurse Rheum [address] [place] [phone] 12/28/2023 2:00 PM EDT Office Visit Family Medicine [address] [place] [phone] Ceci Knapp PA-C [address] [place] [address] [place] [phone] 01/06/2024 2:00 PM EST Office Visit Nephrology [address] [place] [phone] Charlotte Cope PA-C [address] [place] [address] 01/24/2024 8:30 AM EST Cardiac Studies Cardiology [address] [place] [phone] [facility] [address] 02/02/2024 2:30 PM EST Office Visit Hematology/Oncology [facility] 200 [facility] [place] [phone] Mirna Camp CRNP [address] [place] [address] 02/14/2024 1:30 PM EST Office Visit Cardiology, [facility] [address] Jane Ashley CRNP [address] [place] [address] 05/15/2024 1:00 PM EDT Office Visit Nephrology [address] [place] [address] Charlotte Cope PA-C [address] [place] [address] 06/06/2024 3:20 PM EDT Office Visit Family Medicine [address] [place] [phone] Cathy Wilburn MD [address] [place] [address] [place] [address] Scheduled Referrals Name Type Priority Associated Diagnoses Orde r Schedule HOME HEALTH REFERRAL OP Referral Within 10 days (routine) Closed displaced fracture of metatarsal bone of right foot with routine healing, unspecified metatarsal, subsequent encounter DVT, lower extremity, distal, acute, right (HCC) Hyperparathyroidism (HCC) Paroxysmal atrial fibrillation (HCC) Chronic diastolic heart failure (HCC) Nonischemic cardiomyopathy (HCC) 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) Tachy-kraig syndrome (HCC) Ordered: 12/20/2023 Health Maintenance Due Date Last Done Comments Adult Wellness Visit 05/30/2021 05/30/2020 DXA Scan 10/22/2023 10/21/2021, 09/29, 08/28/2018, Additional history exists COVID-19 Vaccine ( season) 2023 CKD PHOS USE SMARTSET 82431 08/16/202407/29, 05/12/2023, 11/05/2022, Additional history exists Albumin/Creatinine Ratio 08/24/2024 024, 07/19/2022, 04/06/2021, Additional history exists Depression Monitoring 08/24/2024 08/25/2023 DIG LEVEL FOR MEDICATION MONITORING YEARLY 09/20/2024 09/21/2023, 06/22/2023, 04/29/2023, Additional history exists CKD HGB USE SMARTSET 48984 12/13/202412/13, 12/07/2023, 10/28/2023, Additional history exists DTap/Tdap Vaccines (2 - Td or Tdap) 12/31/2029 01/01/2020 (Declined), 12/30/2009, 12/30/2009, Additional history exists Pneumococcal Vaccine: 65+ Years Completed 02/08/2017, 02/23/2006 VITAMIN D LEVEL ONCE IN A LIFETIME-USE SMARTSET# [id number] Completed 08/17/2023, 06/27/2023, 06/22/2023, Additional history exists [...] this encounter Medical Devices Implanted Type Area Jewelsmith Device Identifier Shelf Expiration Date Model / Serial / Lot Lead Novus Bipolar 58cm - [id number] - [id number] Implanted:Qty: 1 on 04/11/2017 by Elda Patterson DO at OR [facility] Left: Heart [employer] : [employer] 12/18/2018 5076-58 / [id number] / Description:RIGHT VENTRICLE LEAD Lead Novus Bipolar 52cm - [id number] - [id number] Implanted:Qty: 1 on 04/11/2017 by Elda Patterson DO at OR [facility] Left: Heart [employer] : [employer] 12/24/2018 5076-52 / [id number] / Description:RIGHT ATRIAL ROCKY D Pacer Advisa Dr Dorsey - [id number] - [id number] Implanted:Qty: 1 on 04/11/2017 by Elda Patterson DO at OR [facility] Left: Chest [employer] 08/25/2018 [id number] / [id number] / documented as of this encounter Visit Diagnoses Diagnosis Closed displaced fracture of metatarsal bone of right foot with routine healing, unspecified metatarsal, subsequent encounter- Primary DVT, lower extremity, distal, acute, right (HCC) Hyperparathyroidism (HCC) Hyperparathyroidism, unspecified Lipoma of torso Paroxysmal atrial fibrillation (HCC) Atrial fibrillation Chronic diastolic heart failure (HCC) Chronic diastolic heart failure Atherosclerosis of knik coronary artery 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 pectoris Nonischemic cardiomyopathy (HCC) Other primary cardiomyopathies 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) Tachy-kraig syndrome (HCC) Sinoatrial node dysfunction Malignant neoplasm of colon, unspecified part of colon (HCC) Cardiac pacemaker in situ documented in this encounter Advance Directives Documents on File Type Date Recorded 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
--- NOTE | 2024-01-07 10:16 | Emergency Department Note ---
Impression & Plan SOB (shortness of breath), Hypoxia, CHF (congestive heart failure), Pacemaker, Elevated troponin ED Provider Note NAME: BETH BRIGHT AGE: 88 SEX: F : 1935 ARRIVES VIA: Walk-In INFORMANT: [Patient] ED PROVIDER(S): [Oumar Perez MD] CHIEF COMPLAINT: Shortness of breath HISTORY OF PRESENT ILLNESS: The patient is an 88-year-old female who presents to the ER with shortness of breath. The patient feels it mostly at night. She does wear oxygen at night, no oxygen during the day. The patient states that she just cannot seem to get her breath and sleep at night. She has had no chest pain, no increased cough, no increased leg edema. She is not sure why she is short of breath, she wondered if it had to do with her atrial fibrillation. PMHx/PSHx/Social Hx: See Below PHYSICAL EXAM: GENERAL: Patient is in no acute distress. HEENT: No acute trauma, normocephalic atraumatic, mucous membranes moist, no nasal congestion. NECK: No stridor, no adenopathy, no meningismus, trachea is midline. LUNGS: Clear to auscultation bilaterally, no wheeze, no rhonchi, breath sounds equal. HEART: 2/6 to 3/6 systolic murmur, irregular rhythm, normal rate. ABDOMEN: Soft, nontender, no peritonitis. EXTREMITIES: No cyanosis, full range of motion of all the joints without pain or difficulty. Mild bilateral pedal edema, slightly worse on the right. NEUROLOGIC: Oriented x 3, no acute motor or sensory deficits, no focal weakness. SKIN: No jaundice, no diaphoresis. DIFFERENTIAL DIAGNOSIS: CHF, bronchitis or pneumonia, TN, anemia, UTI, among others. EMERGENCY DEPARTMENT PROCEDURES: MEDICAL DECISION MAKING: There is no leukocytosis or worrisome anemia. There is a normal platelet count. No coagulopathy. VBG shows a subtle respiratory acidosis. Renal panel testing did not show renal failure or significant electrolyte abnormality. No concerning liver enzyme elevation. ECG showed atrial fibrillation with ventricular pacing. Cardiac enzyme testing x 1 was slightly elevated. Looking back at previous testing, the patient has a chronically elevated troponin. Chest x-ray does show cardiomegaly and possibly some mild CHF although the film looks similar to previous films. BNP was quite elevated here at over one thousand, consistent with fluid overload. Chest CT returned showing findings of heart failure, no PE. Urinalysis did not show infection. Respiratory bio fire was negative. Digoxin level was not toxic. Patient did become hypoxic while here in the ED, she was given nasal cannula O2 supplementation. Given the findings of heart failure, I did administer 40 mg of IV Lasix. Of note, the patient received IV Benadryl and IV Solu-Medrol in preparation for her CT scan. She had a known contrast allergy. The patient is doing well at the present time. Given her hypoxia, her dyspnea, her age, I do think a hospital stay for diuresis is warranted. I spoke with the patient and case management. The on-call hospitalist was consulted. Prior/Outside records/notes reviewed: None ECG per my interpretation: Indication was shortness of breath. The ECG shows atrial fibrillation with ventricular pacing. The rate is 71. Some [place] beats are noted. There are T wave inversions seen laterally. No concerning ST elevation. QTc was 441. Continuous Cardiac Monitoring per my interpretation: An order was placed for continuous cardiac monitoring. The monitor shows a rate of 79 with ventricular pacing. Imaging/x-ray results per my interpretation: Chest x-ray shows cardiomegaly and some parenchymal congestion, the film looks similar to previous films. No pneumonia. Chronic Medical/Social conditions affecting care: Advanced age. Care/Management discussed with: Case management, the on-call hospitalist. Level of care consideration(s): After review of the information above and other included data: --I believe the patient requires escalation of care to admission Critical Care Note: I have personally spent 41 minutes of critical care time in the direct management of this patient. This includes bedside care, interpretation of diagnostic studies, and testing, discussion with consultants, patient, and family members, and other required patient management activities. This 41 minutes is in excess of all separately billable procedures. DISPOSITION: Admission Past Med/Surg History Problem List (Updated 01/07/24 @ 16:56 by Oumar Perez MD) Elevated troponin (Acute) Pacemaker (Acute) CHF (congestive heart failure) (Acute) Hypoxia (Acute) SOB (shortness of breath) (Acute) Acute on chronic combined systolic and diastolic CHF (congestive heart failure) Ambulatory dysfunction (Acute) Fracture of metatarsal of right foot, closed (Acute) Fall from standing (Acute) Hyponatremia VINITA (acute kidney injury) Hypomagnesemia (Acute) Hypoxia (Acute) MARTI (obstructive sleep apnea) Electrolyte and fluid disorder H/O colectomy Weakness (Acute) Abdominal wall hematoma (Acute) 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) Subtherapeutic anticoagulation Encounter for pre-operative examination Anemia (Acute) Abnormal nuclear stress test Normal cardic catheterization in Mar 2020 Allergy to iodinated contrast S/P right hemicolectomy d/t colon cancer Labile blood pressure hx of vasovagal syncope Paroxysmal atrial fibrillation Chronic diastolic heart failure Medical History Chronic combined systolic and diastolic heart failure Permanent atrial fibrillation Deep vein thrombosis (DVT) of right lower extremity s/p hemicolectomy 04/27/21 Hyperparathyroidism for conservative management Colon adenocarcinoma Diagnosed Dec 2020>surgery only Chronic kidney disease (CKD), stage III (moderate) follows with Dr. Butler Hx of basal cell carcinoma Superficial thrombophlebitis posterior right knee - monitoring with PCP currently. History of ganglion cyst NSVT (nonsustained ventricular tachycardia) pt unsure of details C. difficile diarrhea s/p hemicolectomy 04/2021 - no problems since. Chronic anticoagulation Pulmonary emboli pt denies -> states only had a DVT Venous insufficiency Closed fracture of facial bone Mitral valve disease Degenerative disc disease, lumbar Osteoporosis Frequent falls last fall>a couple months ago, using cane Osteoarthritis GERD (gastroesophageal reflux disease) Glaucoma Myocardial Infarction (~2005) follows with Poli Zepeda PA-C @ [facility]>2004 or 2005? Cardiac murmur History of COVID-19 diagnosed 02/2020 @ [facility]--fever, headache, cough, loss of taste/smell--no issues now Surgical History H/O colonoscopy with polypectomy H/O vein stripping Left leg History of esophagogastroduodenoscopy (EGD) Status post subtotal parathyroidectomy 2008 R inferior adenoma History of partial hysterectomy History of dilatation and curettage History of facial surgery metal plate under left eye/left cheek S/P excision of lipoma History of arthroscopy of left knee History of colonoscopy History of tooth extraction all teeth History of parathyroidectomy partial @ [facility] History of bilateral cataract extraction History of cardiac cath 2005 with 1 stent placed @ [facility] Family History Mother , 66yo Lymphoma Father Medical history unknown Brother Accident Brother Lung cancer Smoker Diabetes Hypertension Sister Heart disease Heart surgery Sister No problems noted. Sister Endometrial cancer Thyroid disease Sister Overdose Son COPD (chronic obstructive pulmonary disease) Diabetes Myocardial infarction Hypertension Son No problems noted. Son Throat cancer Hypertension Daughter Atrial fibrillation Daughter No problems noted. 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 How many Children do You have: 5 Feels Safe at Home: Yes Safety Concerns: Feels Safe At This Time Diet: regular caffeine: Yes (1 cup/day) during the past year weight has: remained stable Assistive Devices: Denture - Upper, Denture - Lower, Oxygen - at Night and Walker Allergies Allergies Allergy/AdvReac Type Severity Reaction Status Date / Time amiodarone Allergy Severe shortness Verified 12/09/22 10:17 of breath Iodinated Contrast Media Allergy Severe Wheezing Verified 12/09/22 10:17 Thiazides Allergy Severe wheezing Verified 12/09/22 10:17 alendronate sodium Allergy Intermediate Wheezing, Verified 12/09/22 10:17 shortness of breath. ibandronate sodium Allergy Intermediate trouble Verified 12/09/22 10:17 [From Boniva] swallowing red dye Allergy Intermediate Hives Verified 12/09/22 10:17 simvastatin Allergy Intermediate Muscle Verified 12/09/22 10:17 pain. doxycycline Allergy Mild GI side Verified 11/29/23 14:01 effects morphine AdvReac Severe Confusion Verified 12/09/22 10:17 ezetimibe AdvReac Intermediate Muscle Verified 12/09/22 10:17 pain. erythromycin base AdvReac Mild Nausea Verified 12/09/22 10:17 metoprolol AdvReac Unknown must be Verified 12/09/22 10:18 caraco brand Home Meds Home Medications Medication Instructions Recorded Confirmed latanoprost (PF) 0.005 % eye drops 1 drp OPB HS 01/13/21 01/07/24 Oxygen Home 06/18/21 01/07/24 denosumab 60 mg/mL subcutaneous 60 mg subcut UD 06/18/21 01/07/24 syringe (Prolia) cholecalciferol (vitamin D3) 25 25 mcg PO QAM 06/16/22 01/07/24 mcg (1,000 unit) capsule (Vitamin D3) potassium chloride 10 mEq 10 meq PO DAILY 01/07/24 01/07/24 capsule,extended release torsemide 10 mg tablet 10 mg PO DAILY 01/07/24 01/07/24 torsemide 5 mg tablet 5 mg PO DAILY 01/07/24 01/07/24 Previous Rx's Medication Instructions Recorded acetaminophen 500 mg tablet 500 mg PO QID PRN Pain #30 tabs 12/06/23 (Tylenol Extra Strength) apixaban 2.5 mg tablet (Eliquis) 2.5 mg PO BID #60 tabs 12/06/23 atorvastatin 40 mg tablet 40 mg PO HS #30 tabs 12/06/23 cyanocobalamin (vitamin B-12) 1,000 mcg PO 3XWK #12 tabs 12/06/23 1,000 mcg tablet (Vitamin B-12) digoxin 125 mcg (0.125 mg) tablet 0.125 mg PO MoWeFr@0900 #30 tabs 12/06/23 (Digitek) duloxetine 30 mg capsule,delayed 30 mg PO QAM #30 caps 12/06/23 release lorazepam 0.5 mg tablet 0.5 mg PO TID PRN Anxiety #10 tabs 12/06/23 magnesium chloride 70 mg 70 mg PO DAILY #10 tabs 12/06/23 (magnesium chloride) tablet,delayed release metoprolol succinate 100 mg 100 mg PO BID #60 tabs 12/06/23 tablet,extended release 24 hr omeprazole 20 mg capsule,delayed 20 mg PO QAM #30 caps 12/06/23 release oxycodone 5 mg tablet 5 mg PO Q8H PRN severe pain (scale 10/08/24 score 7-10) #12 tabs polyethylene glycol 3350 17 gram 17 g PO DAILY #30 ea 12/06/23 oral powder packet (Miralax) sennosides 8.6 mg-docusate sodium 1 tab PO BID #60 tabs 12/06/23 50 mg tablet (Senokot-S) Results & Data (ED) Vital Signs Vital Signs - 24 hr 01/07/24 09:51 01/07/24 11:51 01/07/24 12:09 Temperature 36.3 C L Temperature Source Skin Pulse Rate 79 76 Pulse Rate [Apical] Pulse Rhythm Regular Pulse Strength Normal Respiratory Rate 20 Respiratory Effort / Characteristics Non-Labored Spontaneous Respiratory Depth Normal Respiratory Pattern Regular Blood Pressure 145/68 H Blood Pressure [Left Arm] Blood Pressure Mean 93 Blood Pressure Mean [Left Arm] Pulse Oximetry 97 86 L Oxygen Delivery Method Room Air Nasal Cannula Oxygen Flow Rate 0 Sepsis Recent Fever Within 48 Hours No Sepsis New/Unexplained Change in Mental Status N/A Sepsis Action Taken by Nursing No Action Required Oxygen Flow Rate - Titration 2 Pulse Oximetry Post Tiitration 95 01/07/24 12:21 Temperature Temperature Source Pulse Rate Pulse Rate [Apical] 77 Pulse Rhythm Pulse Strength Respiratory Rate 22 Respiratory Effort / Characteristics Respiratory Depth Respiratory Pattern Blood Pressure Blood Pressure [Left Arm] 171/109 H Blood Pressure Mean Blood Pressure Mean [Left Arm] 129 Pulse Oximetry 96 Oxygen Delivery Method Nasal Cannula Oxygen Flow Rate 2 Sepsis Recent Fever Within 48 Hours Sepsis New/Unexplained Change in Mental Status Sepsis Action Taken by Nursing Oxygen Flow Rate - Titration Pulse Oximetry Post Tiitration Home Medications Current Medication List: was personally reviewed by me Laboratory Data Attestation: I reviewed the patient's lab results. 01/07/24 10:11 01/07/24 10:11 Lab Results 01/07/24 01/07/24 Range/Units 10:11 12:08 WBC 5.61 (4.8-10.8) K/ul RBC 4.06 L (4.20-5.40) M/uL Hgb 12.6 (12.0-16.0) g/dl Hct 41.1 (37.0-47.0) % MCV 101.2 H (80.0-100.0) fL MCH 31.0 (25.0-34.0) pg MCHC 30.7 L (32.0-36.0) g/dL RDW Std Deviation 54.4 H (36.4-46.3) fL RDW Coeff of Nicholas 14.6 H (11.5-14.5) % Plt Count 173 (130-400) K/uL MPV 9.1 L (9.4-12.4) fL Immature Gran % (Auto) 0.5 % Neut % (Auto) 70.9 % Lymph % (Auto) 16.0 % [place] % (Auto) 9.6 % Eos % (Auto) 2.1 % Baso % (Auto) 0.9 % Neut # (Auto) 3.97 (1.40-6.50) K/uL Lymph # (Auto) 0.90 L (1.20-3.40) K/uL [place]al # (Auto) 0.54 (0.11-0.59) K/uL Eos # (Auto) 0.12 (0.00-0.50) K/uL Baso # (Auto) 0.05 (0.00-0.20) K/uL Immature Gran # (Auto) 0.03 (0.01-0.20) K/uL PT 11.5 (9.0-12.0) Seconds INR 1.1 (0.9-1.1) APTT 30 (21-31) Seconds PTT Ratio 1.1 VBG pH 7.31 L (7.36-7.41) VBG pCO2 52 H (38-50) mmHg VBG pO2 < 20 mmHg VBG HCO3 26 mmol/L VBG O2 Saturation < 60.0 % VBG Base Excess -0.8 mEq/L Sodium 141 (136-145) mmol/L Potassium 4.2 (3.5-5.1) mmol/L Chloride 109 H (98-107) mmol/L Carbon Dioxide 26 (21-32) mmol/L Anion Gap 6 (3-11) BUN 22 (6-23) mg/dl Creatinine 0.97 (0.6-1.2) mg/dl Est Cr Clr Drug Dosing 45.3 ml/min eGFR 56.91 BUN/Creatinine Ratio 22.7 H (10-20) Glucose 123 H (70-99(Fasting)) mg/dl Calcium 8.8 (8.6-10.3) mg/dl Magnesium 1.9 (1.7-2.4) mg/dl Total Bilirubin 1.5 H (0.2-1.0) mg/dl AST 18 (13-39) U/L ALT 25 (7-52) U/L Alkaline Phosphatase 92 (34-104) U/L Troponin I High Sens 32.6 H 28.2 H (0-14) pg/ml B-Natriuretic Peptide 1167 H (0-100) pg/ml Total Protein 7.0 (6.0-8.3) gm/dl Albumin 4.1 (3.4-5.0) gm/dl Globulin 2.9 (2.5-4.0) gm/dl Albumin/Globulin Ratio 1.4 (0.9-2) Digoxin 0.6 L (0.8-2.0) ng/ml Adenovirus (PCR) Not Detected (NotDetected) B. pertussis DNA (PCR) Not Detected (NotDetected) B.parapertussis DNA PCR Not Detected (NotDetected) C. pneumoniae DNA (PCR) Not Detected (NotDetected) Coronavirus OC43 (PCR) Not Detected (NotDetected) Coronavirus HKU1 (PCR) Not Detected (NotDetected) Coronavirus 229E (PCR) Not Detected (NotDetected) SARS-CoV-2 (PCR) Not Detected (NotDetected) Coronavirus NL63 (PCR) Not Detected (NotDetected) Human Metapneumovir PCR Not Detected (NotDetected) Influenza Type A (PCR) Not Detected (NotDetected) Influenza Type B (PCR) Not Detected (NotDetected) M. pneumoniae (PCR) Not Detected (NotDetected) Parainfluenza 1 (PCR) Not Detected (NotDetected) Parainfluenza 2 (PCR) Not Detected (NotDetected) Parainfluenza 3 (PCR) Not Detected (NotDetected) Parainfluenza 4 (PCR) Not Detected (NotDetected) RSV (PCR) Not Detected (NotDetected) Entero/Rhino (PCR) Not Detected (NotDetected) Administered Medications Discontinued Medications Diphenhydramine HCl (Diphenhydramine 50 Mg/Ml Vial) 25 mg IV NOW STA Stop: 01/07/24 11:22 Last Admin: 01/07/24 11:26 Dose: 25 mg Documented By: RYNE Furosemide (Furosemide 40 Mg/4 Ml Vial) 40 mg IV ONE ONE Stop: 01/07/24 11:48 Last Admin: 01/07/24 12:20 Dose: 40 mg Documented By: CAT Ioversol (Optiray 320 125ml) 119 ml IV ONCE ONE Stop: 01/07/24 11:42 Last Admin: 01/07/24 11:42 Dose: 119 ml Documented By: MARTA Methylprednisolone (Methylprednisolone 125 Mg/2 Ml Vial) 80 mg IV NOW STA Stop: 01/07/24 11:22 Last Admin: 01/07/24 11:27 Dose: 80 mg Documented By: RYNE Imaging Data Radiologist's Impression: Chest X-Ray 01/07/24 10:02 XR chest 1V portable CLINICAL HISTORY: Dyspnea. COMPARISON STUDY: Chest radiograph November 28, [address] February 13, 2021 FINDINGS: Left subclavian pacer is unchanged in position. Moderate cardiomegaly is again noted. There is mild interstitial thickening. Blunting of the right costophrenic angle is noted. Linear left midlung opacity favors atelectasis. There is no pneumothorax. IMPRESSION: 1. Cardiomegaly with pulmonary vascular congestion. 2. Trace right pleural effusion. ACT 112: Negative or not required by law. Electronically signed by: Ramon Dno M.D. 01/07/2024 11:27 AM Chest CTA 01/07/24 11:21 CT ANGIOGRAPHY OF THE CHEST, PULMONARY EMBOLUS PROTOCOL CLINICAL HISTORY: Shortness of breath and chest pain. Evaluate for pulmonary embolus. COMPARISON STUDY: Chest CT February 13, 2021. Chest radiograph performed earlier today. TECHNIQUE: Following IV administration of 119 mL of Optiray, helical axial images of the chest were obtained utilizing the pulmonary embolus protocol. Maximal intensity projections and sagittal and coronal reformats were viewed on an independent 3D workstation. IV contrast was administered without complication. Automated exposure control was utilized for the study. A dose lowering technique was utilized adhering to the principles of ALARA. CT DOSE: 702.89 mGy.cm FINDINGS: No pulmonary emboli are identified although this exam is mildly compromised by mixing artifact. Cardiomegaly is unchanged. A left subclavian pacer is in place. Prominent mediastinal lymph nodes are similar to prior exam. There is no pneumothorax. Small right and trace left pleural effusions are present. Interlobular septal thickening is noted. Groundglass opacities favor atelectasis. Alternately, the findings could be related to pulmonary edema. There is no consolidation to suggest pneumonia. Scattered small pulmonary nodules measuring up to 5 mm are noted. These may be related to pulmonary edema. IMPRESSION: 1. No pulmonary emboli identified although exam mildly compromised by mixing artifact. 2. Cardiomegaly with moderate interstitial pulmonary edema and small right and trace left pleural effusions. 3. Prominent mediastinal lymph nodes which are unchanged since prior CT. ACT 112: Negative or not required by law. Electronically signed by: Ramon Don M.D. 01/07/2024 12:03 PM Discharge Plan Visit Data Chief Complaint: Shortness of Breath/Dyspnea Stated Complaint: SOB/TROUBLE BREATHING, SOME CHEST PAIN ED Provider: Oumar Perez Discharge Problem: SOB (shortness of breath), Hypoxia, CHF (congestive heart failure), Pacemaker, Elevated troponin Patient Disposition: Admitted As Inpatient Condition: Fair Discharge Instructions Interventions: ED Discharge Assessment Last Done: 01/07/24 16:36 Discharge Problem: CHF (congestive heart failure) Qualifiers: Heart failure type: unspecified Heart failure chronicity: acute on chronic Q ualified Code(s): I50.9 - Heart failure, unspecified
[2024-01-07 10:34] LABS: Basophils # (auto) 0.05 K/uL (0.00-0.20); Basophils % (auto) 0.9 %; Eosinophils # (auto) 0.12 K/uL (0.00-0.50); Eosinophils % (auto) 2.1 %; Hematocrit (blood only) 41.1 % (37.0-47.0); Hemoglobin 12.6 g/dl (12.0-16.0); Immature Granulocytes # (auto) 0.03 K/uL (0.01-0.20); Immature Granulocytes % (auto) 0.5 %; Mean Corpuscular Hgb Conc 30.7 g/dL (32.0-36.0); Mean Corpuscular Volume 101.2 fL (80.0-100.0); Mean Platelet Volume 9.1 fL (9.4-12.4); Monocytes # (auto) 0.54 K/uL (0.11-0.59); Monocytes % (auto) 9.6 %; Neutrophils # (auto) 3.97 K/uL (1.40-6.50); Neutrophils % (auto) 70.9 %; Platelet Count 173 K/uL (130-400); RDW Coefficient of Variation 14.6 % (11.5-14.5); RDW Standard Deviation 54.4 fL (36.4-46.3); Red Blood Count 4.06 M/uL (4.20-5.40); White Blood Count 5.61 K/ul (4.8-10.8)
[2024-01-07 10:39] LABS: Base Excess VBG -0.8 mEq/L; HCO3 VBG 26 mmol/L; Oxygen Saturation VBG < 60.0 %; PCO2 VBG 52 mmHg (38-50); PO2 VBG < 20 mmHg; pH VBG 7.31 (7.36-7.41)
[2024-01-07 10:58] LABS: Albumin Globulin Ratio 1.4 (0.9-2); Albumin Level 4.1 gm/dl (3.4-5.0); BUN Creatinine Ratio 22.7 (10-20); Bilirubin,Total 1.5 mg/dl (0.2-1.0); Calcium 8.8 mg/dl (8.6-10.3); Creatinine Clr Calc Pharmacy 45.3 ml/min; Globulin 2.9 gm/dl (2.5-4.0); Potassium 4.2 mmol/L (3.5-5.1)
[2024-01-07 11:03] LABS: INR 1.1 (0.9-1.1); Partial Thromboplastin Ratio 1.1; Partial Thromboplastin Time 30 Seconds (21-31); Prothrombin Time 11.5 Seconds (9.0-12.0)
[2024-01-07 11:04] LABS: Troponin I High Sensitivity 32.6 pg/ml (0-14)
[2024-01-07] MEDS: diphenhydrAMINE 50 MG/ML VIAL IV STA (11:26)
[2024-01-07] MEDS: methylPREDNISolone 125 MG/2 ML VIAL IV STA (11:27)
--- NOTE | 2024-01-07 11:28 | XRay Report ---
XR chest 1V portable CLINICAL HISTORY: Dyspnea. COMPARISON STUDY: Chest radiograph November 28, [address] February 13, 2021 FINDINGS: Left subclavian pacer is unchanged in position. Moderate cardiomegaly is again noted. There is mild interstitial thickening. Blunting of the right costophrenic angle is noted. Linear left midl neeru opacity favors atelectasis. There is no pneumothorax. IMPRESSION: 1. Cardiomegaly with pulmonary vascular congestion. 2. Trace right pleural effusion. ACT 112: Negative or not required by law. Electronically signed by: Ramon Don M.D. 01/07/2024 11:27 AM
[2024-01-07] MEDS: OPTIRAY 320 125ml IV ONE (11:42)
[2024-01-07 11:43] LABS: Adenovirus PCR Not Detected (NotDetected); Bordetella parapertussis PCR Not Detected (NotDetected); Bordetella pertussis PCR Not Detected (NotDetected); Chlamydia pneumoniae PCR Not Detected (NotDetected); Coronavirus 229E PCR Not Detected (NotDetected); Coronavirus CoV-2 (COVID19)PCR Not Detected (NotDetected); Coronavirus HKU1 PCR Not Detected (NotDetected); Coronavirus NL63 PCR Not Detected (NotDetected); Coronavirus OC43PCR Not Detected (NotDetected); Human Metapneumovirus PCR Not Detected (NotDetected); Influenza A PCR Not Detected (NotDetected); Influenza B PCR Not Detected (NotDetected); Mycoplasma pneumoniae PCR Not Detected (NotDetected); Parainfluenza Virus 1 PCR Not Detected (NotDetected); Parainfluenza Virus 2 PCR Not Detected (NotDetected); Parainfluenza Virus 3 PCR Not Detected (NotDetected); Parainfluenza Virus 4 PCR Not Detected (NotDetected); Respiratory Syncytial VirusPCR Not Detected (NotDetected); Rhinovirus/Enterovirus PCR Not Detected (NotDetected)
--- NOTE | 2024-01-07 12:06 | CT Scan Report ---
CT ANGIOGRAPHY OF THE CHEST, PULMONARY EMBOLUS PROTOCOL CLINICAL HISTORY: Shortness of breath and chest pain. Evaluate for pulmonary embolus. COMPARISON STUDY: Chest CT February 13, 2021. Chest radiograph performed earlier today. TECHNIQUE: Following IV administration of 119 mL of Optiray, helical axial images of the chest were o btained utilizing the pulmonary embolus protocol. Maximal intensity projections and sagittal and cor onal reformats were viewed on an independent 3D workstation. IV contrast was administered without co mplication. Automated exposure control was utilized for the study. A dose lowering technique was ut ilized adhering to the principles of ALARA. CT DOSE: 702.89 mGy.cm FINDINGS: No pulmonary emboli are identified although this exam is mildly compromised by mixing olivia fact. Cardiomegaly is unchanged. A left subclavian pacer is in place. Prominent mediastinal lymph nod es are similar to prior exam. There is no pneumothorax. Small right and trace left pleural effusions are present. Interlobular septal thickening is noted. Groundglass opacities favor atelectasis. Altern ately, the findings could be related to pulmonary edema. There is no consolidation to suggest pneumon ia. Scattered small pulmonary nodules measuring up to 5 mm are noted. These may be related to pulmona ry edema. IMPRESSION: 1. No pulmonary emboli identified although exam mildly compromised by mixing artifact. 2. Cardiomegaly with moderate interstitial pulmonary edema and small right and trace left pleural eff usions. 3. Prominent mediastinal lymph nodes which are unchanged since prior CT. ACT 112: Negative or not required by law. Electronically signed by: Ramon Don M.D. 01/07/2024 12:03 PM
[2024-01-07] MEDS: FUROSEMIDE 40 MG/4 ML VIAL IV ONE (12:20)
--- NOTE | 2024-01-07 12:35 | History & Physical Report ---
Date of Service January 07, 2024 Assessment & Plan (1) Acute on chronic combined systolic and diastolic CHF (congestive heart failure): (2) Permanent atrial fibrillation: (3) Chronic kidney disease (CKD), stage III (moderate): (4) History of DVT (deep vein thrombosis): (5) Hypertension: (6) Tachy-kraig syndrome: (7) Sleep apnea: Plan: #Acute on chronic combined CHF #Valvular heart disease Patient is 88 year old female with PMH HTN, dyslipidemia, CAD s/p PCI LAD in 2004, atrial fibrillation, tachybradycardia syndrome s/p pacemaker, history of DVT, PE, on chronic anticoagulation with Eliquis, chronic combined CHF, CKD IIIb, MARTI and hypoxemia on 2 L oxygen at bedtime, colon CA s/p hemicolectomy, chronic anemia, depression, anxiety, venous insufficiency, GERD, others listed below presents to ER with c/o orthopnea and PND x 3-4 days. In ER afebrile, P: 79, normal: 20, BP 145/68, 97% on room air. During ER course noted to drop to 86% on room air placed on 2 L with sats up to 96% on room air No leukocytosis, negative BioFire respiratory panel. Troponin: 32.6-->28. BNP 1167. Magnesium: 1.9. Digoxin level: 0.6 CXR: Cardiomegaly with pulmonary vascular congestion, trace right pleural effusion CTA chest: No pulmonary emboli identified although exam mildly compromised by mixing artifact. Cardiomegaly with moderate interstitial pulmonary edema and small right and trace left pleural effusions. Prominent mediastinal lymph nodes which are unchanged since prior CT. In ER given Solu-Medrol 80 mg IV, Benadryl 25 mg IV pre-CT scan and Lasix 40 mg IV 08/11/2023 echo: EF: 45-49%, grade III diastolic dysfunction, mild aortic regurgitation, moderate-severe mitral regurgitation, moderate tricuspid regurgitation per outpatient chart review. 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 Lasix 40 mg IV twice daily Supplemental oxygen as needed, wean as able Cardiology consult CMP, BMP, magnesium lab in a.m. #Permanent atrial fibrillation: Anticoagulated on Eliquis Digoxin level: 0.6 Continue home metoprolol, Eliquis, digoxin #CAD (coronary artery disease): s/p PCI LAD in 2004 Continue Eliquis, atorvastatin, metoprolol #Hypertension: BP elevated in ER. Didn't take metoprolol today. Has not been on losartan for 8 months Continue metoprolol Monitor BP #Dyslipidemia: Continue atorvastatin #Chronic kidney disease IIIb: Cr: 0.9. Recent Baseline ~1.6. Was 1.5 on 12/05/23 Monitor renal functions, avoid nephrotoxic agents when possible Follows with nephrology, Dr Butler #History of DVT & PE Currently anticoagulated on Eliquis. Hx of spontaneous retroperitoneal hematoma on wafarin 08/2023 and was hospitalized at [facility] [place], [place], no trauma, attempted IR embolization but no active extravasation. Repeat imaging showed resolving hematoma and therefore pt started on low dose Eliquis #Tachy-kraig syndrome: s/p pacemaker #Hx of Iron def/Pernicious Anemia Hgb: 12.6 Monitor H&H #Hyperparathyroidism 2/ R parathyroid adenoma s/p excision 2008 Ca: 8.8, was 10.8 in 11/2023 and Vitamin D was held during that admission On Vitamin D supplement at home #Hx of Colon cx diagnosed in 2021 s/o hemicolectomy, no chemotherapy warranted, stable in remission currently #MARTI (obstructive sleep apnea): Intolerant to cpap. Uses 2L O2 HS Continue O2 HS # Depression: #Anxiety: Continue duloxetine, lorazepam prn #DVT Prophylaxis On Eliquis Admit telemetry Full code as per discussion with pt Follows with Dr Wilburn for routine care Pt was seen and care coordinated with Dr Hutchinson. See addendum I spent a total of 76 minutes reviewing notes, outpatient records, labs, med ication, coordinating, documenting and providing care for this patient excluding time spent in the performance of separately billed services. History of Present Illness Chief Complaint: increased SOB Primary Care Provider: Cathy Wilburn MD Patient is 88 year old female with PMH HTN, dyslipidemia, CAD s/p PCI LAD in 2004, atrial fibrillation, tachybradycardia syndrome s/p pacemaker, history of DVT, PE, on chronic anticoagulation with Eliquis, chronic combined CHF, CKD IIIb, MARTI and hypoxemia on 2 L oxygen at bedtime, colon CA s/p hemicolectomy, chronic anemia, depression, anxiety, venous insufficiency, GERD, others listed below presents to ER with c/o increased SOB x 3-4 days. History obtained from patient and inpatient and outpatient chart review. Recent hospital admission 11/28/2023-12/06/2023 for fall, right foot metatarsal fracture, ambulatory dysfunction that was treated conservatively. Was in ortho boot and saw ortho on 12/19/23 and could stop boot end of November and has since been wearing normal shoe wear. Using walker at baseline. Patient states last 3-4 nights feeling SOB with lying supine. States waking up in the night feeling SOB past 3 nights. Hasn't noticed increased LE edema. States last night abdomen and chest felt "full" and "heavy". [place] nauseated past few days with no vomiting. Little BRANNON on top of head and using Tylenol arthritis for chronic knee pain and also helps BRANNON. Hasn't been checking her weights at home but states when was at nephrology outpatient clinic yesterday she thought she was up a couple of pounds. Denies cough, fever/chills, diaphoresis, V/D/C, dizziness, syncope, vision changes, neck pain, palpitations, cough, sore throat, rhinorrhea, other abdominal pain, paresthesias, rashes, urinary symptoms. Allergies Allergy/AdvReac Type Severity Reaction Status Date / Time amiodarone Allergy Severe shortness Verified 12/09/22 10:17 of breath Iodinated Contrast Media Allergy Severe Wheezing Verified 12/09/22 10:17 Thiazides Allergy Severe wheezing Verified 12/09/22 10:17 alendronate sodium Allergy Intermediate Wheezing, Verified 12/09/22 10:17 shortness of breath. ibandronate sodium Allergy Intermediate trouble Verified 12/09/22 10:17 [From Maria Fernanda] swallowing red dye Allergy Intermediate Hives Verified 12/09/22 10:17 simvastatin Allergy Intermediate Muscle Verified 12/09/22 10:17 pain. doxycycline Allergy Mild GI side Verified 11/29/23 14:01 effects morphine AdvReac Severe Confusion Verified 12/09/22 10:17 ezetimibe AdvReac Intermediate Muscle Verified 12/09/22 10:17 pain. erythromycin base AdvReac Mild Nausea Verified 12/09/22 10:17 metoprolol AdvReac Unknown must be Verified 12/09/22 10:18 caraco brand Home Medications Medication Instructions Recorded Confirmed Type latanoprost (PF) 0.005 % eye drops 1 drp OPB HS 01/13/21 01/07/24 History Oxygen Home 06/18/21 01/07/24 History denosumab 60 mg/mL subcutaneous 60 mg subcut UD 06/18/21 01/07/24 History syringe (Prolia) cholecalciferol (vitamin D3) 25 25 mcg PO QAM 06/16/22 01/07/24 History mcg (1,000 unit) capsule (Vitamin D3) acetaminophen 500 mg tablet 500 mg PO QID PRN Pain #30 tabs 12/06/23 01/07/24 Rx (Tylenol Extra Strength) apixaban 2.5 mg tablet (Eliquis) 2.5 mg PO BID #60 tabs 12/06/23 01/07/24 Rx atorvastatin 40 mg tablet 40 mg PO HS #30 tabs 12/06/23 01/07/24 Rx cyanocobalamin (vitamin B-12) 1,000 mcg PO 3XWK #12 tabs 12/06/23 01/07/24 Rx 1,000 mcg tablet (Vitamin B-12) digoxin 125 mcg (0.125 mg) tablet 0.125 mg PO MoWeFr@0900 #30 tabs 12/06/23 01/07/24 Rx (Digitek) duloxetine 30 mg capsule,delayed 30 mg PO QAM #30 caps 12/06/23 01/07/24 Rx release lorazepam 0.5 mg tablet 0.5 mg PO TID PRN Anxiety #10 tabs 12/06/23 01/07/24 Rx magnesium chloride 70 mg 70 mg PO DAILY #10 tabs 12/06/23 01/07/24 Rx (magnesium chloride) tablet,delayed release metoprolol succinate 100 mg 100 mg PO BID #60 tabs 12/06/23 01/07/24 Rx tablet,extended release 24 hr omeprazole 20 mg capsule,delayed 20 mg PO QAM #30 caps 12/06/23 01/07/24 Rx release oxycodone 5 mg tablet 5 mg PO Q8H PRN severe pain (scale 12/06/23 01/07/24 Rx score 7-10) #12 tabs polyethylene glycol 3350 17 gram 17 g PO DAILY #30 ea 12/06/23 01/07/24 Rx oral powder packet (Miralax) sennosides 8.6 mg-docusate sodium 1 tab PO BID #60 tabs 12/06/23 01/07/24 Rx 50 mg tablet (Senokot-S) potassium chloride 10 mEq 10 meq PO DAILY 01/07/24 01/07/24 History capsule,extended release torsemide 10 mg tablet 10 mg PO DAILY 01/07/24 01/07/24 History torsemide 5 mg tablet 5 mg PO DAILY 01/07/24 01/07/24 History Past Med/Surg History Problem List Acute on chronic combined systolic and diastolic CHF (congestive heart failure) Ambulatory dysfunction (Acute) Fracture of metatarsal of right foot, closed (Acute) Fall from standing (Acute) Hyponatremia VINITA (acute kidney injury) Hypomagnesemia (Acute) Hypoxia (Acute) MARTI (obstructive sleep apnea) Electrolyte and fluid disorder H/O colectomy Weakness (Acute) Abdominal wall hematoma (Acute) 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) Subtherapeutic anticoagulation Encounter for pre-operative examination Anemia (Acute) Abnormal nuclear stress test Normal cardic catheterization in Mar 2020 Allergy to iodinated contrast S/P right hemicolectomy d/t colon cancer Labile blood pressure hx of vasovagal syncope Paroxysmal atrial fibrillation Chronic diastolic heart failure Medical History Chronic combined systolic and diastolic heart failure Permanent atrial fibrillation Deep vein thrombosis (DVT) of right lower extremity s/p hemicolectomy 04/27/21 Hyperparathyroidism for conservative management Colon adenocarcinoma Diagnosed Dec 2020>surgery only Chronic kidney disease (CKD), stage III (moderate) follows with Dr. Butler Hx of basal cell carcinoma Superficial thrombophlebitis posterior right knee - monitoring with PCP currently. History of ganglion cyst NSVT (nonsustained ventricular tachycardia) pt unsure of details C. difficile diarrhea s/p hemicolectomy 04/2021 - no problems since. Chronic anticoagulation Pulmonary emboli pt denies -> states only had a DVT Venous insufficiency Closed fracture of facial bone Mitral valve disease Degenerative disc disease, lumbar Osteoporosis Frequent falls last fall>a couple months ago, using cane Osteoarthritis GERD (gastroesophageal reflux disease) Glaucoma Myocardial Infarction (~2005) follows with Poli Zepeda PA-C @ [facility]>2004 or 2006? Cardiac murmur History of COVID-19 diagnosed 02/[address] [facility]--fever, headache, cough, loss of taste/smell--no issues now Surgical History H/O colonoscopy with polypectomy H/O vein stripping Left leg History of esophagogastroduodenoscopy (EGD) Status post subtotal parathyroidectomy 2009 R inferior adenoma History of partial hysterectomy History of dilatation and curettage History of facial surgery metal plate under left eye/left cheek S/P excision of lipoma History of arthroscopy of left knee History of colonoscopy History of tooth extraction all teeth History of parathyroidectomy partial @ [facility] History of bilateral cataract extraction History of cardiac cath 2005 with 1 stent placed @ [facility] Family History Mother , 66yo Lymphoma Father Medical history unknown Brother Accident Brother Lung cancer Smoker Diabetes Hypertension Sister Heart disease Heart surgery Sister No problems noted. Sister Endometrial cancer Thyroid disease Sister Overdose Son COPD (chronic obstructive pulmonary disease) Diabetes Myocardial infarction Hypertension Son No problems noted. Son Throat cancer Hypertension Daughter Atrial fibrillation Daughter No problems noted. 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 How many Children do You have: 5 Feels Safe at Home: Yes Diet: regular caffeine: Yes (1 cup/day) during the past year weight has: remained stable Assistive Devices: Cane and Walker Review of Systems Review of Systems: All systems reviewed & are unremarkable except as noted in HPI & below Physical Exam Physical Exam: PE per Dr Hutchinson Results & Data Results & Data Vital Signs (Past 12 Hours) Vital Signs Temp Pulse Pulse Resp BP BP Pulse Ox 01/07/24 12:21 77 22 171/109 H 96 01/07/24 12:09 86 L 01/07/24 11:51 76 01/07/24 09:51 36.3 C L 79 20 145/68 H 97 O2 Del Method O2 Flow Rate 01/07/24 12:21 Nasal Cannula 2 01/07/24 12:09 Nasal Cannula 0 01/07/24 11:51 01/07/24 09:51 Room Air Laboratory Results Chest X-Ray 01/07/24 10:02 XR chest 1V portable CLINICAL HISTORY: Dyspnea. COMPARISON STUDY: Chest radiograph November 28, [address] February 13, 2021 FINDINGS: Left subclavian pacer is unchanged in position. Moderate cardiomegaly is again noted. There is mild interstitial thickening. Blunting of the right costophrenic angle is noted. Linear left midlung opacity favors atelectasis. There is no pneumothorax. IMPRESSION: 1. Cardiomegaly with pulmonary vascular congestion. 2. Trace right pleural effusion. ACT 112: Negative or not required by law. Electronically signed by: Ramon Don M.D. 01/07/2024 11:27 AM Chest CTA 01/07/24 11:21 CT ANGIOGRAPHY OF THE CHEST, PULMONARY EMBOLUS PROTOCOL CLINICAL HISTORY: Shortness of breath and chest pain. Evaluate for pulmonary embolus. COMPARISON STUDY: Chest CT February 13, 2021. Chest radiograph performed earlier today. TECHNIQUE: Following IV administration of 119 mL of Optiray, helical axial images of the chest were obtained utilizing the pulmonary embolus protocol. Maximal intensity projections and sagittal and coronal reformats were viewed on an independent 3D workstation. IV contrast was administered without complication. Automated exposure control was utilized for the study. A dose lowering technique was utilized adhering to the principles of ALARA. CT DOSE: 702.89 mGy.cm FINDINGS: No pulmonary emboli are identified although this exam is mildly compromised by mixing artifact. Cardiomegaly is unchanged. A left subclavian pacer is in place. Prominent mediastinal lymph nodes are similar to prior exam. There is no pneumothorax. Small right and trace left pleural effusions are present. Interlobular septal thickening is noted. Groundglass opacities favor atelectasis. Alternately, the findings could be related to pulmonary edema. There is no consolidation to suggest pneumonia. Scattered small pulmonary nodules measuring up to 5 mm are noted. These may be related to pulmonary edema. IMPRESSION: 1. No pulmonary emboli identified although exam mildly compromised by mixing artifact. 2. Cardiomegaly with moderate interstitial pulmonary edema and small right and trace left pleural effusions. 3. Prominent mediastinal lymph nodes which are unchanged since prior CT. ACT 112: Negative or not required by law. Electronically signed by: Ramon Don M.D. 01/07/2024 12:03 PM Diagnostic Findings Chest X-Ray 01/07/24 10:02 XR chest 1V portable CLINICAL HISTORY: Dyspnea. COMPARISON STUDY: Chest radiograph November 28, [address] February 13, 2021 FINDINGS: Left subclavian pacer is unchanged in position. Moderate cardiomegaly is again noted. There is mild interstitial thickening. Blunting of the right costophrenic angle is noted. Linear left midlung opacity favors atelectasis. There is no pneumothorax. IMPRESSION: 1. Cardiomegaly with pulmonary vascular congestion. 2. Trace right pleural effusion. ACT 112: Negative or not required by law. Electronically signed by: Ramon Don M.D. 01/07/2024 11:27 AM Chest CTA 01/07/24 11:21 CT ANGIOGRAPHY OF THE CHEST, PULMONARY EMBOLUS PROTOCOL CLINICAL HISTORY: Shortness of breath and chest pain. Evaluate for pulmonary embolus. COMPARISON STUDY: Chest CT February 13, 2021. Chest radiograph performed earlier today. TECHNIQUE: Following IV administration of 119 mL of Optiray, helical axial images of the chest were obtained utilizing the pulmonary embolus protocol. Maximal intensity projections and sagittal and coronal reformats were viewed on an independent 3D workstation. IV contrast was administered without complication. Automated exposure control was utilized for the study. A dose lowering technique was utilized adhering to the principles of ALARA. CT DOSE: 702.89 mGy.cm FINDINGS: No pulmonary emboli are identified although this exam is mildly compromised by mixing artifact. Cardiomegaly is unchanged. A left subclavian pacer is in place. Prominent mediastinal lymph nodes are similar to prior exam. There is no pneumothorax. Small right and trace left pleural effusions are present. Interlobular septal thickening is noted. Groundglass opacities favor atelectasis. Alternately, the findings could be related to pulmonary edema. There is no consolidation to suggest pneumonia. Scattered small pulmonary nodules measuring up to 5 mm are noted. These may be related to pulmonary edema. IMPRESSION: 1. No pulmonary emboli identified although exam mildly compromised by mixing artifact. 2. Cardiomegaly with moderate interstitial pulmonary edema and small right and trace left pleural effusions. 3. Prominent mediastinal lymph nodes which are unchanged since prior CT. ACT 112: Negative or not required by law. Electronically signed by: Ramon Don M.D. 01/07/2024 12:03 PM ECG Additional Comments: atrial fibrillation, rate 71, paced per my interpretation Supervising Physician Co-Signing Physician Notes Patient is an 88-year-old female with history of permanent A-fib, tachybradycardia syndrome S/P pacemaker, diastolic heart failure, DVT, PE on chronic anticoagulation with Eliquis, MARTI on bedtime oxygen, valvular heart disease, colon cancer s/p surgery and other medical problems presents with history of worsening shortness of breath, orthopnea, PND, chest congestion since 3 to 4 days duration. Patient has a recent hospitalization for right metatarsal fracture and ambulatory dysfunction. Patient admits to take her medications regularly. She also reports feeling abdomen to be more distended along with increased leg swelling. Please review HPI for complete details of presentation. She was hypoxic in 80s requiring supplemental oxygen while in ED. She also believes that her pacemaker battery may need to be exchanged. I personally reviewed blood work and imaging studies. Chest CT is suggestive of moderate interstitial pulmonary edema, bilateral pleural effusions and unchanged prominent mediastinal lymphadenopathy. EKG currently pending. Urinalysis pending. BioFire negative Physical Exam: Vitals signs as noted above General Appearance:Moderately built and nourished, no apparent distress Head: normocephalic, Atraumatic Eyes: normal inspection, EOMI Neck: supple, Trachea midline,+ JVD Respiratory/Chest: Normal breath sounds, bilateral basal crackles, No accessory muscle use Cardiovascular: Irregularly irregular, +murmur, +pacer Abdomen/GI:Soft, Non tender, Bowel sounds present, + protuberant Extremities/Musculoskeletal:normal inspection, 2+ B/L LE edema Neurologic/Psych:AAOX3, grossly no focal neurological deficits Skin: normal color, warm Acute on chronic HFpEF Volume overload secondary to above Hypoxia secondary to above Chronic A-fib, tachybradycardia syndrome S/P Pacemaker Chronic mediastinal lymphadenopathy MARTI on oxygen HS Last echo in July suggestive of grade 3 diastolic dysfunction, valvular heart disease and EF 45 to 49%. Agree with IV Lasix, I's and O's, daily weight Cardiology consulted May need pacemaker interrogation/battery exchange Continue supplemental oxygen as needed Continue fluid restriction, monitor volume status, renal function, electrolytes Continue Eliquis for anticoagulation Follow-up urinalysis Continue other home medications as able Check abdomen USD for ascites Will need 2 step prior to discharge I personally interviewed and examined at bedside. Patient's care is coordinated with Wilma Newman PA-C. I have reviewed the advanced practitioner's documentation, and I agree with plan of care. Please refer to the documentation above for details of patient's presentation and for discussion of other issues. I spent a total [id number] coordinating, documenting, and providing care for this patient excluding time spent in the performance of separately billed services.
[2024-01-07 13:02] LABS: Magnesium 1.9 mg/dl (1.7-2.4)
--- NOTE | 2024-01-07 13:47 | Ultrasound Report ---
US abdomen ltd ascites CLINICAL HISTORY: CHF. Evaluate for ascites. COMPARISON STUDY: CT of the abdomen pelvis September 20, 2023. TECHNIQUE: Sonography of the abdomen and pelvis was performed to assess for ascites. FINDINGS: There is no ascites within the abdomen or pelvis. IMPRESSION: No ascites. ACT 112: Negative or not required by law. Electronically signed by: Ramon Don M.D. 01/07/2024 1:45 PM
[2024-01-07] MEDS ORDERED: ONDANSETRON INJ 2 MG/ML 2 ML VIAL IV PRN (15:16)
[2024-01-07] MEDS ORDERED: POLYETHYLENE (MIRALAX) 17 GM PACK PO PRN (15:16)
--- NOTE | 2024-01-07 15:40 | Cardiology Consultation ---
Date of Consultation January 07, 2024 Assessment & Plan (1) Acute on chronic combined systolic and diastolic CHF (congestive heart failure): (2) Chronic kidney disease (CKD), stage III (moderate): (3) Permanent atrial fibrillation: (4) Tachy-arnav syndrome: (5) Pacemaker: Plan Assessment: 88 year old medically complex female presents with progressively worsening shortness of breath, most notable over the past 3-4 days. chest xray and physical exam suggestive of hypervolemia. Plan: 1. Acute on chronic combined systolic and diastolic HF 2. Chronic Kidney disease, stage III -Patient reports a month of progressively worsening shortness of breath, acutely worse with associated PND, orthopnea and lower extremity edema over the past 3-4 days. -Compliant on home medication therapies, receives in a pill pack. -chest xray and physical exam consistent with volume overload. Continue furosemide 40mg IV BID -Denies any excessive increase in fluid intake or salt intake, but does state she probably eats more salt then she should. -Review of telemetry demonstrates A-fib, rate controlled. Continue home regimen of PO Digoxin, Toprol xl, and Eliquis (reduced dosing s/t age and renal function) -Strict I&O, purwick in place. Daily weights. Close monitoring of renal function and serum electrolytes with goal serum k> 4.0 and serum mag > 2.0 -Low sodium cardiac prudent diet. -Reassess fluid status and labs in the AM 3. Permanent A-fib /5. Tachy-arnav syndrome with presence of a pacemaker -A-fib rate controlled on telemetry. -EKG with no acute ischemic changes. -Continue on PO Digoxin, and Torpol for rate control. -Continue Eliquis 2.5mg PO BID for oral AC therapy. Denies any bleeding concerns. HgB stable. -Patient states that she has not had a device interrogation in a "long time", will request a device check during course of hospitalization given acute HF exacerbation Case has been discussed with Dr. Alberto. Further recommendations regarding plan of care as per his assessment. I spent a total of 40 minutes on the date of service in preparation, delivery, documentation of the care provided to the patient excluding any time spent in the performance of separately billed services. JULIO Cortes [facility] Cardiology [facility] Supervising Physician Co-Signing Physician Notes I have personally performed a history and physical examination on the patient. I have reviewed the advance practitioner's documentation, and I agree with, and take responsibility for the plan of care. 88-year-old female with acute on chronic heart failure with mildly reduced LV systolic function and permanent atrial fibrillation with tachybradycardia syndrome and permanent pacemaker placement. Recommend IV diuresis with furosemide 40 mg twice daily. Continue apixaban, digoxin, metoprolol succinate, and atorvastatin as ordered. Monitor fluid balance, daily weight, GFR, and electrolytes. Sodium restriction advised. Cardiology will continue to follow during hospitalization. I spent a total of 30 minutes on the date of service in preparation, delivery, and documentation of the care provided to this patient, excluding any time spent in the performance of separately billed services. Conrado Alberto DO, [facility] History of Present Illness Reason for Consultation: CHF Requesting Physician: Андрей piña Attending Physician: Eduar Hutchinson MD History of Present Illness HPI: Patient is a 88 year old female with PMHx as noted below that presents for complaints of increased shortness of breath for the past 3-4 days. +PND and orthopnea. Patient states that her chest just feels full and heavy with associated nausea. Denies any lower extremity edema. Since time of ER arrival, patient states that her breathing has improved. She received a one time dose of IV furosemide 40mg and was placed on supplemental O2. Of note, patient was recently hospitalized from 11/27-12/05 after sustaining a ground level fall and subsequent right foot metatarsal fracture. Chest xray: IMPRESSION: 1. Cardiomegaly with pulmonary vascular congestion. 2. Trace right pleural effusion. Chest CTA: IMPRESSION: 1. No pulmonary emboli identified although exam mildly compromised by mixing artifact. 2. Cardiomegaly with moderate interstitial pulmonary edema and small right and trace left pleural effusions. 3. Prominent mediastinal lymph nodes which are unchanged since prior CT. High sensitivity troponin: 32.6/28.2 EKG Atrial fibrillation. V-paced. Rate 71bpm Cardiac history: 1. 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 Permanent atrial fibrillation, decision previously made to no longer pursue rhythm control 3. Coronary ischemic heart disease 1. Status post remote PCI to the LAD in 2004 2. April 15, 2021 Coronary Angiography ([facility], Dr. Lopez): Moderate nonobstructive coronary artery disease (40% proximal LAD, 50% mid LAD. Moderate to severe first septal, small second diagonal disease. Widely patent proximal to mid LAD stent. 40% proximal RCA, 40% mid RCA). Normal intracardiac filling pressure 4. Nonischemic cardiomyopathy 5. Systolic and diastolic heart failure 6. Mitral regurgitation 7. Sleep apnea and hypoxemia. 1. Unable to tolerate CPAP. 2. On supplemental oxygen at 2 L/min QHS. 8. Chronic venous insufficiency with remove vein stripping, with recurrent phlebitis/thrombophlebitis/cellulitis 9. History of significant spontaneous right psoas muscle hematoma (Hemoglobin 6.7 g/dL, receiving 3 units of pRBC's without difficulty) in September 2019. Anticoagulation discontinued at that time. 10. Anticoagulation prescribed x 3 months after presentation in December 2019 with extensive thrombophlebitis and associated cellulitis of the left lower extremity. 11. Hyperparathyroidism 12. Hypertension 13. Dyslipidemia 14. Stage III CKD 15. Esophageal reflux 16. Cervical disc disease 17. Anxiety 18. Colonic carcinoma. Status post April 27, 2021 right laparoscopic hemicolectomy by Dr. Ashok Salamacna MD. 19. Prolonged hospitalization post hemicolectomy 04/27/2021 to 05/12/2021 with an ileus versus gastroenteritis, right abdominal wall hematoma, acute blood loss requiring transfusion of one unit pRBC's, hyponatremia, acute renal dysfunction, atrial fibrillation with a rapid ventricular response, and hospital acquired right middle lobe pneumonia 20. Hospitalization at [facility] 05/21/2021 to 06/02/2021 with C diff diarrhea, gastritis/likely tyrese esophagitis, acute right lower extremity DVT and left lower extremity SVT, high probability PE, resumption of anticoagulation 21. Hospitalization in July 2021 with hypertensive urgency, demand ischemia. Allergies Allergy/AdvReac Type Severity Reaction Status Date / Time amiodarone Allergy Severe shortness Verified 12/09/22 10:17 of breath Iodinated Contrast Media Allergy Severe Wheezing Verified 12/09/22 10:17 Thiazides Allergy Severe wheezing Verified 12/09/22 10:17 alendronate sodium Allergy Intermediate Wheezing, Verified 12/09/22 10:17 shortness of breath. ibandronate sodium Allergy Intermediate trouble Verified 12/09/22 10:17 [From Boniva] swallowing red dye Allergy Intermediate Hives Verified 12/09/22 10:17 simvastatin Allergy Intermediate Muscle Verified 12/09/22 10:17 pain. doxycycline Allergy Mild GI side Verified 11/29/23 14:01 effects morphine AdvReac Severe Confusion Verified 12/09/22 10:17 ezetimibe AdvReac Intermediate Muscle Verified 12/09/22 10:17 pain. erythromycin base AdvReac Mild Nausea Verified 12/09/22 10:17 metoprolol AdvReac Unknown must be Verified 12/09/22 10:18 caraco brand Home Medications Medication Instructions Recorded Confirmed Type latanoprost (PF) 0.005 % eye drops 1 drp OPB HS 01/13/21 01/07/24 History Oxygen Home 06/18/21 01/07/24 History denosumab 60 mg/mL subcutaneous 60 mg subcut UD 06/18/21 01/07/24 History syringe (Prolia) cholecalciferol (vitamin D3) 25 25 mcg PO QAM 06/16/22 01/07/24 History mcg (1,000 unit) capsule (Vitamin D3) acetaminophen 500 mg tablet 500 mg PO QID PRN Pain #30 tabs 12/06/23 01/07/24 Rx (Tylenol Extra Strength) apixaban 2.5 mg tablet (Eliquis) 2.5 mg PO BID #60 tabs 12/06/23 01/07/24 Rx atorvastatin 40 mg tablet 40 mg PO HS #30 tabs 12/06/23 01/07/24 Rx cyanocobalamin (vitamin B-12) 1,000 mcg PO 3XWK #12 tabs 12/06/23 01/07/24 Rx 1,000 mcg tablet (Vitamin B-12) digoxin 125 mcg (0.125 mg) tablet 0.125 mg PO MoWeFr@0900 #30 tabs 12/06/23 01/07/24 Rx (Digitek) duloxetine 30 mg capsule,delayed 30 mg PO QAM #30 caps 12/06/23 01/07/24 Rx release lorazepam 0.5 mg tablet 0.5 mg PO TID PRN Anxiety #10 tabs 12/06/23 01/07/24 Rx magnesium chloride 70 mg 70 mg PO DAILY #10 tabs 12/06/23 01/07/24 Rx (magnesium chloride) tablet,delayed release metoprolol succinate 100 mg 100 mg PO BID #60 tabs 12/06/23 01/07/24 Rx tablet,extended release 24 hr omeprazole 20 mg capsule,delayed 20 mg PO QAM #30 caps 12/06/23 01/07/24 Rx release oxycodone 5 mg tablet 5 mg PO Q8H PRN severe pain (scale 12/06/23 01/07/24 Rx score 7-10) #12 tabs polyethylene glycol 3350 17 gram 17 g PO DAILY #30 ea 12/06/23 01/07/24 Rx oral powder packet (Miralax) sennosides 8.6 mg-docusate sodium 1 tab PO BID #60 tabs 12/06/23 01/07/24 Rx 50 mg tablet (Senokot-S) potassium chloride 10 mEq 10 meq PO DAILY 01/07/24 01/07/24 History capsule,extended release torsemide 10 mg tablet 10 mg PO DAILY 01/07/24 01/07/24 History torsemide 5 mg tablet 5 mg PO DAILY 01/07/24 01/07/24 History Patient History Medical History Chronic combined systolic and diastolic heart failure Permanent atrial fibrillation Deep vein thrombosis (DVT) of right lower extremity s/p hemicolectomy 04/27/21 Hyperparathyroidism for conservative management Colon adenocarcinoma Diagnosed Dec 2020>surgery only Chronic kidney disease (CKD), stage III (moderate) follows with Dr. Butler Hx of basal cell carcinoma Superficial thrombophlebitis posterior right knee - monitoring with PCP currently. History of ganglion cyst NSVT (nonsustained ventricular tachycardia) pt unsure of details C. difficile diarrhea s/p hemicolectomy 04/2021 - no problems since. Chronic anticoagulation Pulmonary emboli pt denies -> states only had a DVT Venous insufficiency Closed fracture of facial bone Mitral valve disease Degenerative disc disease, lumbar Osteoporosis Frequent falls last fall>a couple months ago, using cane Osteoarthritis GERD (gastroesophageal reflux disease) Glaucoma Myocardial Infarction (~2005) follows with Poli Zepeda PA-C @ [facility]>2004 or 2005? Cardiac murmur History of COVID-19 diagnosed 02/2020 @ [facility]--fever, headache, cough, loss of taste/smell--no issues now Surgical History H/O colonoscopy with polypectomy H/O vein stripping Left leg History of esophagogastroduodenoscopy (EGD) Status post subtotal parathyroidectomy 2009 R inferior adenoma History of partial hysterectomy History of dilatation and curettage History of facial surgery metal plate under left eye/left cheek S/P excision of lipoma History of arthroscopy of left knee History of colonoscopy History of tooth extraction all teeth History of parathyroidectomy partial @ [facility] History of bilateral cataract extraction History of cardiac cath 2005 with 1 stent placed @ [facility] Family History Mother , 66yo Lymphoma Father Medical history unknown Brother Accident Brother Lung cancer Smoker Diabetes Hypertension Sister Heart disease Heart surgery Sister No problems noted. Sister Endometrial cancer Thyroid disease Sister Overdose Son COPD (chronic obstructive pulmonary disease) Diabetes Myocardial infarction Hypertension Son No problems noted. Son Throat cancer Hypertension Daughter Atrial fibrillation Daughter No problems noted. Other Cancer No family history of adverse response to anesthesia Social History Smoking Status: Never smoker Second Hand Exposure: No; Do You Dip or Chew Tobacco: No; Hx Alcohol Use: No Hx Substance Use: No Preferred Language: Serbian Communication Ability: Effective Visual Impairment: No Limitations Hearing Ability: Normal Licensed Prosthetist Required: No Beliefs That Will Affect Care: None marital status: / Current Living Situation: Alone Current Living Situation Comment: lives in apt current occupational status: retired current occupation: [employer] x 18 yrs How many Children do You have: 5 Feels Safe at Home: Yes Safety Concerns: Feels Safe At This Time Diet: regular caffeine: Yes (1 cup/day) during the past year weight has: remained stable Assistive Devices: Denture - Upper, Denture - Lower, Oxygen - at Night and Walker Review of Systems Review of Systems: All systems reviewed & are unremarkable except as noted in HPI & below Physical Exam Constitutional: well developed and well nourished; no acute distress Neck: normal visual inspection and trachea midline Respiratory: normal respiratory effort; no respiratory distress, no labored breathing and no cough Auscultation: + diminished lung sounds (bilateral bases ) and + wheezes (faint exp wheeze bilateral upper lobes ); no crackles, no rales and no rhonchi Cardiovascular: Rate/Rhythm: + irregularly irregular (pacemaker present) Heart Sounds: normal S1 and normal S2 Vessels: normal peripheral pulses; no JVD Extremities: + edema (+1 BLE, right slightly worse than left ) Skin: no rashes, warm and dry Psychiatric: A+Ox3, euthymic affect Results & Data Vital Signs (Past 12 Hours) Vital Signs Temp Pulse Pulse Pulse Resp BP BP 01/07/24 15:18 36.7 C 92 H 16 173/92 H 01/07/24 15:18 01/07/24 12:21 77 22 171/109 H 01/07/24 12:09 01/07/24 11:51 76 01/07/24 09:51 36.3 C L 79 20 145/68 H Pulse Ox Pulse Ox O2 Del Method O2 Del Method O2 Flow Rate O2 Flow Rate 01/07/24 15:18 98 Nasal Cannula 2 01/07/24 15:18 98 Nasal Cannula 2 01/07/24 12:21 96 Nasal Cannula 2 01/07/24 12:09 86 L Nasal Cannula 0 01/07/24 11:51 01/07/24 09:51 97 Room Air Laboratory Results Cardiac Enzymes 01/07/24 01/07/24 Range/Units 10:11 12:08 AST 18 (13-39) U/L Troponin I High Sens 32.6 H 28.2 H (0-14) pg/ml B-Natriuretic Peptide 1167 H (0-100) pg/ml Coagulation 01/07/24 Range/Units 10:11 PT 11.5 (9.0-12.0) Seconds APTT 30 (21-31) Seconds B-Natriuretic Peptide 1167 H (0-100) pg/ml CBC 01/07/24 Range/Units 10:11 WBC 5.61 (4.8-10.8) K/ul RBC 4.06 L (4.20-5.40) M/uL Hgb 12.6 (12.0-16.0) g/dl Hct 41.1 (37.0-47.0) % Plt Count 173 (130-400) K/uL Neut # (Auto) 3.97 (1.40-6.50) K/uL Lymph # (Auto) 0.90 L (1.20-3.40) K/uL [place] # (Auto) 0.54 (0.11-0.59) K/uL Eos # (Auto) 0.12 (0.00-0.50) K/uL Baso # (Auto) 0.05 (0.00-0.20) K/uL Comprehensive Metabolic Panel 01/07/24 Range/Units 10:11 Sodium 141 (136-145) mmol/L Potassium 4.2 (3.5-5.1) mmol/L Chloride 109 H (98-107) mmol/L Carbon Dioxide 26 (21-32) mmol/L BUN 22 (6-23) mg/dl Creatinine 0.97 (0.6-1.2) mg/dl Glucose 123 H (70-99(Fasting)) mg/dl Calcium 8.8 (8.6-10.3) mg/dl AST 18 (13-39) U/L ALT 25 (7-52) U/L Alkaline Phosphatase 92 (34-104) U/L Total Protein 7.0 (6.0-8.3) gm/dl Albumin 4.1 (3.4-5.0) gm/dl Intake and Output 01/07/24 01/07/24 01/07/24 06:59 14:59 22:59 Other: Weight 80 kg 81.216 kg Weight Measurement Method Built in [facility] Patient Weight 01/08/24 06:59 Weight 81.216 kg
[2024-01-07 15:59] LABS: Appearance Urine Clear (Clear); Bilirubin Urine Negative (Negative); Blood Urine Negative (Negative); Color Urine Yellow; Glucose Urine UA Negative (Negative); Ketones Urine Negative (Negative); Leukocyte Esterase Urine Negative (Negative); Nitrite Urine Negative (Negative); Protein Urine Negative (Negative); Urobilinogen Urine Negative (Negative)
[2024-01-07] MEDS: ACETAMINOPHEN 325 MG TAB PO PRN (16:57)
[2024-01-07] MEDS: FUROSEMIDE 40 MG/4 ML VIAL IV SCH (16:57)
[2024-01-07] MEDS: PANTOprazole 40 MG TAB PO SCH (16:58)
[2024-01-07] MEDS: DULoxetine HCL 30 MG CAP PO SCH (16:58)
[2024-01-07] MEDS: LORazepam 0.5 MG TAB PO PRN (21:12)
[2024-01-07] MEDS: LATANOPROST 0.005% OP SOLN 2.5 ML BTL OP SCH (21:12)
[2024-01-07] MEDS: ATORVASTATIN 40 MG TAB PO SCH (21:12)
[2024-01-07] MEDS: DOCUSATE SODIUM/SENNA 50/8.6MG TAB PO SCH (21:12)
[2024-01-07] MEDS: METOPROLOL SUCC 50MG EXT REL TAB PO SCH (21:12)
[2024-01-07] MEDS: APIXABAN 2.5 MG TAB PO SCH (21:13)
[2024-01-08 06:32] LABS: Hematocrit (blood only) 35.9 % (37.0-47.0); Hemoglobin 11.3 g/dl (12.0-16.0); Mean Corpuscular Hemoglobin 31.1 pg (25.0-34.0); Mean Corpuscular Hgb Conc 31.5 g/dL (32.0-36.0); Mean Corpuscular Volume 98.9 fL (80.0-100.0); Mean Platelet Volume 9.6 fL (9.4-12.4); Platelet Count 183 K/uL (130-400); RDW Coefficient of Variation 14.6 % (11.5-14.5); RDW Standard Deviation 53.1 fL (36.4-46.3); Red Blood Count 3.63 M/uL (4.20-5.40); White Blood Count 6.62 K/ul (4.8-10.8)
[2024-01-08 07:12] LABS: BUN Creatinine Ratio 24.5 (10-20); Calcium 8.3 mg/dl (8.6-10.3); Creatinine Clr Calc Pharmacy 41.1 ml/min; Magnesium 1.8 mg/dl (1.7-2.4); Potassium 3.9 mmol/L (3.5-5.1)
--- NOTE | 2024-01-08 08:10 | Cardiology Progress Note ---
Date of Service January 08, 2024 Assessment & Plan (1) Acute on chronic combined systolic and diastolic CHF (congestive heart failure): (2) Chronic kidney disease (CKD), stage III (moderate): (3) Tachy-kraig syndrome: (4) Pacemaker: Plan Assessment: 88 year old medically complex female presents with progressively worsening shortness of breath, most notable over the past 3-4 days. chest xray and physical exam suggestive of hypervolemia. Plan: 1. Acute on chronic combined systolic and diastolic HF 2. Chronic Kidney disease, stage III -Patient reports a month of progressively worsening shortness of breath, acutely worse with associated PND, orthopnea and lower extremity edema over the past 3-4 days. -Compliant on home medication therapies, receives in a pill pack. -chest xray and physical exam consistent with volume overload. Continue furosemide 40mg IV BID -Denies any excessive increase in fluid intake or salt intake, but does state she probably eats more salt then she should. -Review of telemetry demonstrates A-fib, rate controlled. Continue home re gimen of PO Digoxin, Toprol xl, and Eliquis (reduced dosing s/t age and renal function) -Strict I&O, purwick in place. Daily weights. Close monitoring of renal function and serum electrolytes with goal serum k> 4.0 and serum mag > 2.0 -Low sodium cardiac prudent diet. -Reassess fluid status and labs in the AM 3. Permanent A-fib 06/02. Tachy-kraig syndrome with presence of a pacemaker -A-fib rate controlled on telemetry. -EKG with no acute ischemic changes. -Continue on PO Digoxin, and Toprol for rate control. -Continue Eliquis 2.5mg PO BID for oral AC therapy. Denies any bleeding con cerns. HgB stable. -Patient states that she has not had a device interrogation in a "long time", will request a device check during course of hospitalization given acute HF exacerbation 01/08/2024: -patient demonstrating good diuresis overnight. -1490cc fluid balance. Continue Furosemide 40mg IV BID -Strict I&O, Purwick in place. Daily weights. Close monitoring of renal function and serum electrolytes with goal serum k> 4.0 and serum mag > 2.0 -Low sodium cardiac prudent diet. -Reassess fluid status and labs in the AM -Remains A-fib on telemetry, rate controlled. Device interrogation on paper chart. Normal function, Battery life: 9 months. -Continue PO Digoxin and Toprol xl for rate control. -Continue Eliquis 2.5mg PO BID for oral AC therapy. Denies any bleeding concern. HgB stable. Case has been discussed with Dr. Alberto. Further recommendations regarding plan of care as per his assessment. I spent a total of 30 minutes on the date of service in preparation, delivery, documentation of the care provided to the patient excluding any time spent in the performance of separately billed services. JULIO Cortes [facility] Cardiology [facility] Admission and Anticipated Discharge Date Admission Date: January 07, 2024 Supervising Physician Co-Signing Physician Notes I have personally performed a history and physical examination on the patient. I have reviewed the advance practitioner's documentation, and I agree with, and take responsibility for the plan of care. 88-year-old female with acute on chronic heart failure with mildly reduced LV systolic function and permanent atrial fibrillation with tachybradycardia syndrome and permanent pacemaker placement. Clinically improved since admission with IV diuresis. Fluid balance -1.8 L overnight. Continue IV diuresis with furosemide 40 mg twice daily. Transition to oral diuretic therapy in the next 24-48 hours. Monitor fluid balance, daily weight, GFR, and electrolytes. Sodium restriction advised. Continue apixaban, digoxin, metoprolol succinate, and atorvastatin as ordered. I spent a total of 30 minutes on the date of service in preparation, delivery, and documentation of the care provided to this patient, excluding any time spent in the performance of separately billed services. Conrado Alberto DO, [facility] Subjective 01/08/2024: Patient seen and examined in follow up today. Feeling that her breathing has improved some. Reports feeling winded after breakfast. Currently on 2L O2 via nasal cannula (she is typically only on O2HS at home). Labs, vitals, diagnostics, telemetry and documentation reviewed. Telemetry reviewed showing paced/underlying A-fib rates 70-80's -1480cc fluid balance Review of Systems Review of Systems: All systems reviewed & are unremarkable except as noted in HPI & below Physical Exam Constitutional: well developed and well nourished; no acute distress Neck: normal visual inspection and trachea midline Respiratory: normal respiratory effort; no respiratory distress, no labored breathing and no cough Auscultation: + diminished lung sounds (bilateral bases ) and + wheezes (faint exp wheeze bilateral upper lobes ); no crackles, no rales and no rhonchi Cardiovascular: Rate/Rhythm: + irregularly irregular (pacemaker present) Heart Sounds: normal S1 and normal S2 Vessels: normal peripheral pulses; no JVD Extremities: + edema (+1 BLE, right slightly worse than left ) Skin: no rashes, warm and dry Psychiatric: A+Ox3, euthymic affect Results & Data Vital Signs (Past 12 Hours) Vital Signs Temp Pulse Pulse Resp BP Pulse Ox O2 Del Method 01/08/24 07:32 36.8 C 94 H 18 155/75 H 95 Nasal Cannula 01/08/24 07:20 71 01/08/24 02:33 36.8 C 77 16 152/81 H 98 Room Air 01/07/24 23:58 86 01/07/24 23:40 Nasal Cannula 01/07/24 22:38 36.6 C 82 16 161/65 H 91 Room Air O2 Flow Rate 01/08/24 07:32 2 01/08/24 07:20 01/08/24 02:33 01/07/24 23:58 01/07/24 23:40 2 01/07/24 22:38 Laboratory Results Cardiac Enzymes 01/07/24 01/07/24 Range/Units 10:11 12:08 AST 18 (13-39) U/L Troponin I High Sens 32.6 H 28.2 H (0-14) pg/ml B-Natriuretic Peptide 1167 H (0-100) pg/ml Coagulation 01/07/24 Range/Units 10:11 PT 11.5 (9.0-12.0) Seconds APTT 30 (21-31) Seconds B-Natriuretic Peptide 1167 H (0-100) pg/ml CBC 01/07/24 01/08/24 Range/Units 10:11 05:36 WBC 5.61 6.62 (4.8-10.8) K/ul RBC 4.06 L 3.63 L (4.20-5.40) M/uL Hgb 12.6 11.3 L (12.0-16.0) g/dl Hct 41.1 35.9 L (37.0-47.0) % Plt Count 173 183 (130-400) K/uL Neut # (Auto) 3.97 (1.40-6.50) K/uL Lymph # (Auto) 0.90 L (1.20-3.40) K/uL [place] # (Auto) 0.54 (0.11-0.59) K/uL Eos # (Auto) 0.12 (0.00-0.50) K/uL Baso # (Auto) 0.05 (0.00-0.20) K/uL Comprehensive Metabolic Panel 01/07/24 01/08/24 Range/Units 10:11 05:36 Sodium 141 140 (136-145) mmol/L Potassium 4.2 3.9 (3.5-5.1) mmol/L Chloride 109 H 106 (98-107) mmol/L Carbon Dioxide 26 26 (21-32) mmol/L BUN 22 26 H (6-23) mg/dl Creatinine 0.97 1.06 (0.6-1.2) mg/dl Glucose 123 H 116 H (70-99(Fasting)) mg/dl Calcium 8.8 8.3 L (8.6-10.3) mg/dl AST 18 (13-39) U/L ALT 25 (7-52) U/L Alkaline Phosphatase 92 (34-104) U/L Total Protein 7.0 (6.0-8.3) gm/dl Albumin 4.1 (3.4-5.0) gm/dl Intake and Output 01/07/24 01/08/24 01/08/24 22:59 06:59 14:59 Intake Total 120 / 220 100 / 220 Output Total 1450 / 1700 250 / 1700 Balance -1330 / -1480 -150 / -1480 Intake: Oral 120 / 220 100 / 220 Output: Urine Amount (Catheter) 1450 / 1700 250 / 1700 External 1450 / 1700 250 / 1700 Other: # Unmeasured Voids 1 Weight 81.216 kg 78.3 kg Weight Measurement Method Built in [facility] Built [facility]
[2024-01-08] MEDS: POTASSIUM CHLORIDE 10 MEQ TABCR PO SCH (08:28)
[2024-01-08] MEDS: CHOLECALCIFEROL 25 MCG (1000 UNITS) TAB PO SCH (08:29)
--- NOTE | 2024-01-08 11:56 | Hospitalist Progress Note ---
Date of Service January 08, 2024 Assessment & Plan (1) Acute on chronic combined systolic and diastolic CHF (congestive heart failure): (2) Permanent atrial fibrillation: (3) Chronic kidney disease (CKD), stage III (moderate): (4) History of DVT (deep vein thrombosis): (5) Hypertension: (6) Tachy-kraig syndrome: (7) Sleep apnea: Plan: #Acute on chronic combined CHF #Valvular heart disease Patient is 88 year old female with PMH HTN, dyslipidemia, CAD s/p PCI LAD in 2004, atrial fibrillation, tachybradycardia syndrome s/p pacemaker, history of DVT, PE, on chronic anticoagulation with Eliquis, chronic combined CHF, CKD IIIb, MARTI and hypoxemia on 2 L oxygen at bedtime, colon CA s/p hemicolectomy, chronic anemia, depression, anxiety, venous insufficiency, GERD, others listed below presents to ER with c/o orthopnea and PND x 3-4 days. In ER afebrile, P: 79, normal: 20, BP 145/68, 97% on room air. During ER course noted to drop to 86% on room air placed on 2 L with sats up to 96% on room air No leukocytosis, negative [employer] respiratory panel. Troponin: 32.6-->28. BNP 1167. Magnesium: 1.9. Digoxin level: 0.6 CXR: Cardiomegaly with pulmonary vascular congestion, trace right pleural effusion CTA chest: No pulmonary emboli identified although exam mildly compromised by mixing artifact. Cardiomegaly with moderate interstitial pulmonary edema and small right and trace left pleural effusions. Prominent mediastinal lymph nodes which are unchanged since prior CT. In ER given Solu-Medrol 80 mg IV, Benadryl 25 mg IV pre-CT scan and Lasix 40 mg IV 08/11/2023 echo: EF: 45-49%, grade III diastolic dysfunction, mild aortic regurgitation, moderate-severe mitral regurgitation, moderate tricuspid regurgitation per outpatient chart review. Monitor I&O's, daily weight, low sodium diet Hold home torsemide. Lasix 40 mg IV twice daily Supplemental oxygen as needed, wean as able Cardiology consult-appreciate input and recommendation Has been diuresing enough with the current dose of intravenous Lasix Cumulative fluid balance is -1880 mL Will continue current doses of Lasix #Permanent atrial fibrillation: Anticoagulated on Eliquis Digoxin level: 0.6 Continue home metoprolol, Eliquis, digoxin Heart rate is controlled and will continue with current beta-baron and digoxin #CAD (coronary artery disease): s/p PCI LAD in 2004 Continue Eliquis, atorvastatin, metoprolol Denies any chest pain and/or palpitation #Hypertension: BP elevated in ER. Didn't take metoprolol today. Has not been on losartan for 8 months Continue metoprolol Monitor BP #Dyslipidemia: Continue atorvastatin #Chronic kidney disease IIIb: Cr: 0.9. Recent Baseline ~1.6. Was 1.5 on 12/05/23 Monitor renal functions, avoid nephrotoxic agents when possible Follows with nephrology, Dr Butler Kidney function has been normalized #History of DVT & PE Currently anticoagulated on Eliquis. Hx of spontaneous retroperitoneal hematoma on wafarin 08/2023 and was hospitalized at [facility], no trauma, attempted IR embolization but no active extra vasation. Repeat imaging showed resolving hematoma and therefore pt started on low dose Eliquis #Tachy-kraig syndrome: s/p pacemaker #Hx of Iron def/Pernicious Anemia Hgb: 12.6 Monitor H&H #Hyperparathyroidism 2/ R parathyroid adenoma s/p excision 2008 Ca: 8.8, was 10.8 in 11/2023 and Vitamin D was held during that admission On Vitamin D supplement at home #Hx of Colon cx diagnosed in 2021 s/o hemicolectomy, no chemotherapy warranted, stable in remission currently #MARTI (obstructive sleep apnea): Intolerant to cpap. Uses 2L O2 HS Continue O2 HS # Depression: #Anxiety: Continue duloxetine, lorazepam prn #DVT Prophylaxis On Eliquis Admit telemetry Full code as per discussion with pt Follows with Dr Wilburn for routine care Admission and Anticipated Discharge Date Admission Date: January 07, 2024 Subjective 01/08/2024 Patient was seen and examined in medical telemetry unit She was admitted with acute on chronic systolic and diastolic CHF Has been feeling much better following diuresis Denies any significant symptoms but remain generally weak Will continue current diuretics doses Review of Systems Review of Systems: All systems reviewed and are unremarkable except as noted below Physical Exam Physical Exam: Lying in bed without any acute distress Constitutional: + ill appearing and average body habitus Eyes: PERRL, conjunctivae normal, anicteric sclerae ENMT: external ear and nose normal, oropharynx normal Neck: trachea midline, no thyromegaly Respiratory: no respiratory distress Auscultation: + diminished lung sounds and + crackles (Bibasilar Rales) Cardiovascular: Rate/Rhythm: + irregularly irregular; not tachycardic Heart Sounds: normal S1, normal S2 and + murmur Extremities: + edema (1+ edema bilaterally) Gastrointestinal (Abdomen): Inspection/Auscultation: normal bowel sounds; abdomen not distended Percussion/Palpation: abdomen soft; abdomen nontender Musculoskeletal: No acute arthritis involving any of the joint Neurologic: normal touch/pain/proprioception and moves all extremities; no focal motor deficits Psychiatric: A+Ox3, euthymic affect Lymphatic: no cervical or axillary lymphadenopathy Results & Data Results & Data Vital Signs (Past 12 Hours) Vital Signs Temp Pulse Pulse Resp BP Pulse Ox O2 Del Method 01/08/24 11:23 36.7 C 72 18 136/71 94 Room Air 01/08/24 08:30 Room Air 01/08/24 07:32 36.8 C 94 H 18 155/75 H 95 Nasal Cannula 01/08/24 07:20 71 01/08/24 02:33 36.8 C 77 16 152/81 H 98 Room Air 01/07/24 23:58 86 O2 Flow Rate 01/08/24 11:23 01/08/24 08:30 01/08/24 07:32 2 01/08/24 07:20 01/08/24 02:33 01/07/24 23:58 Laboratory Results Short CBC 01/08/24 Range/Units 05:36 WBC 6.62 (4.8-10.8) K/ul Hgb 11.3 L (12.0-16.0) g/dl Hct 35.9 L (37.0-47.0) % Plt Count 183 (130-400) K/uL BMP 01/08/24 05:36 Sodium 140 Potassium 3.9 Chloride 106 Carbon Dioxide 26 BUN 26 H Creatinine 1.06 Glucose 116 H Calcium 8.3 L Urine 01/07/24 Range/Units Unknown Urine Color Yellow Urine Appearance Clear (Clear) Urine pH 7.0 (4.5-7.5) Ur Specific Mcneil 1.010 (1.000-1.030) Urine Protein Negative (Negative) Urine Glucose (UA) Negative (Negative) Medications Administered Current Inpatient Medications Acetaminophen (Acetaminophen 325 Mg Tab) 650 mg PO Q4H PRN PRN Reason: Pain or Fever Stop: 02/06/24 15:15 Last Admin: 01/08/24 08:27 Dose: 650 mg Apixaban (Apixaban 2.5 Mg Tab) 2.5 mg PO BID [facility] Stop: 02/06/24 20:59 Last Admin: 01/08/24 08:28 Dose: 2.5 mg Atorvastatin Calcium (Atorvastatin 40 Mg Tab) 40 mg PO HS [facility] Stop: 02/06/24 20:59 Last Admin: 01/07/24 21:12 Dose: 40 mg Digoxin (Digoxin 0.125 Mg Tab) 0.125 mg PO MoWeFr@0900 [facility] Stop: 02/08/24 08:59 Duloxetine HCl (Duloxetine Hcl 30 Mg Cap) 30 mg PO QAM [facility] Stop: 02/06/24 15:15 Last Admin: 01/08/24 08:29 Dose: 30 mg Furosemide (Furosemide 40 Mg/4 Ml Vial) 40 mg IV [id number] [facility] Stop: 02/06/24 16:59 Last Admin: 01/08/24 08:28 Dose: 40 mg Latanoprost (Latanoprost 0.005% Op Soln 2.5 Ml Btl) 1 drops OP HS [facility] Stop: 02/06/24 20:59 Last Admin: 01/07/24 21:12 Dose: 1 drops Lorazepam (Lorazepam 0.5 Mg Tab) 0.5 mg PO TID PRN PRN Reason: Anxiety Stop: 02/06/24 15:15 Last Admin: 01/08/24 08:27 Dose: 0.5 mg Metoprolol Succinate (Metoprolol Succ 50mg Ext Rel Tab) 100 mg PO BID [facility] Stop: 02/06/24 20:59 Last Admin: 01/08/24 08:29 Dose: 100 mg Ondansetron HCl (Ondansetron Inj 2 Mg/Ml 2 Ml Vial) 4 mg IV Q6H PRN PRN Reason: Nausea Stop: 02/06/24 15:15 Pantoprazole Sodium (Pantoprazole 40 Mg Tab) 40 mg PO QAM [facility] Stop: 02/06/24 15:29 Last Admin: 01/08/24 08:29 Dose: 40 mg Polyethylene Glycol (Polyethylene (Miralax) 17 Gm Pack) 17 gm PO DAILY PRN PRN Reason: Constipation Stop: 02/06/24 15:15 Potassium Chloride (Potassium Chloride 10 Meq Tabcr) 10 meq PO DAILY [facility] Stop: 02/07/24 08:59 Last Admin: 01/08/24 08:28 Dose: 10 meq Senna/Docusate Sodium (Docusate Sodium/Senna 50/8.6mg Tab) 1 tab PO BID [facility] Stop: 02/06/24 20:59 Last Admin: 01/08/24 08:28 Dose: 1 tab Vitamin D (Cholecalciferol 25 Mcg (1000 Units) Tab) 25 mcg PO QAM [facility] Stop: 02/07/24 08:59 Last Admin: 01/08/24 08:29 Dose: 25 mcg
[2024-01-09 07:53] LABS: BUN Creatinine Ratio 22.5 (10-20); Calcium 8.3 mg/dl (8.6-10.3); Creatinine Clr Calc Pharmacy 42.3 ml/min; Magnesium 1.7 mg/dl (1.7-2.4); Potassium 3.8 mmol/L (3.5-5.1)
[2024-01-09] MEDS: DIGOXIN 0.125 MG TAB PO SCH (08:27)
--- NOTE | 2024-01-09 10:48 | Cardiology Progress Note ---
Date of Service January 09, 2024 Assessment & Plan (1) Acute on chronic combined systolic and diastolic CHF (congestive heart failure): (2) Chronic kidney disease (CKD), stage III (moderate): (3) Tachy-kraig syndrome: (4) Pacemaker: Plan Assessment: 88 year old medically complex female presents with progressively worsening shortness of breath, most notable over the past 3-4 days. chest xray and physical exam suggestive of hypervolemia. Plan: 1. Acute on chronic combined systolic and diastolic HF 2. Chronic Kidney disease, stage III -Patient reports a month of progressively worsening shortness of breath, acutely worse with associated PND, orthopnea and lower extremity edema over the past 3-4 days. -Compliant on home medication therapies, receives in a pill pack. -chest xray and physical exam consistent with volume overload. Continue furosemide 40mg IV BID -Denies any excessive increase in fluid intake or salt intake, but does state she probably eats more salt then she should. -Review of telemetry demonstrates A-fib, rate controlled. Continue home re gimen of PO Digoxin, Toprol xl, and Eliquis (reduced dosing s/t age and renal function) -Strict I&O, purwick in place. Daily weights. Close monitoring of renal function and serum electrolytes with goal serum k> 4.0 and serum mag > 2.0 -Low sodium cardiac prudent diet. -Reassess fluid status and labs in the AM 3. Permanent A-fib 06/02. Tachy-kraig syndrome with presence of a pacemaker -A-fib rate controlled on telemetry. -EKG with no acute ischemic changes. -Continue on PO Digoxin, and Toprol for rate control. -Continue Eliquis 2.5mg PO BID for oral AC therapy. Denies any bleeding con cerns. HgB stable. -Patient states that she has not had a device interrogation in a "long time", will request a device check during course of hospitalization given acute HF exacerbation 01/08/2024: -patient demonstrating good diuresis overnight. -1490cc fluid balance. Continue Furosemide 40mg IV BID -Strict I&O, Purwick in place. Daily weights. Close monitoring of renal function and serum electrolytes with goal serum k> 4.0 and serum mag > 2.0 -Low sodium cardiac prudent diet. -Reassess fluid status and labs in the AM -Remains A-fib on telemetry, rate controlled. Device interrogation on paper chart. Normal function, Battery life: 9 months. -Continue PO Digoxin and Toprol xl for rate control. -Continue Eliquis 2.5mg PO BID for oral AC therapy. Denies any bleeding concern. HgB stable. 01/09/24: -Additional 2.1 L output measured overnight and since yesterday. -Weight down approx 4 kg since admission. -Stable renal function. -Low normal magnesium this morning at 1.7. Start mag ox (takes supplement at home) -Continue potassium supplement -Continue furosemide 40 mg IV today and hold in AM. -Likely transition to oral torsemide tomorrow (home dose was torsemide 15 mg daily, but patient admits she was only taking 10 mg on a regular basis). -Afib, rates controlled. continue eliquis 2.5 mg BID and metoprolol and digoxin. Case has been discussed with Dr. Westbrook. Further recommendations regarding plan of care as per his assessment. I spent a total of 30 minutes on the date of service in preparation, delivery, documentation of the care provided to the patient excluding any time spent in the performance of separately billed services. Carlie Garcia PA-C [facility] Cardiology [facility] Admission and Anticipated Discharge Date Admission Date: January 07, 2024 Supervising Physician Co-Signing Physician Notes I have personally performed a history and physical examination on the patient. I have reviewed the advance practitioner's documentation, and I agree with, and take responsibility for the plan of care. Patient overall feels improved with good diuresis since admission. No oxygen demands. Patient does use oxygen at home nocturnally. Would provide while in hospital. Plan to transition to oral diuretics in a.m. Previously on amlodipine. We will restart 2.5 mg (lower dose) nightly for further hypertension control Subjective Patient resting in bed comfortably. She reports her SOB/fluid status has improved since admission. She admits to not taking her torsemide 15 mg regularly as prescribed. She would often only take the 10 mg at home. No chest pain. No edema. No dizziness. Review of Systems Review of Systems: All systems reviewed & are unremarkable except as noted in HPI & below Physical Exam Constitutional: well developed and well nourished; no acute distress Neck: normal visual inspection and trachea midline Respiratory: normal respiratory effort; no respiratory distress, no labored breathing and no cough Auscultation: lungs clear to auscultation bilaterally and + diminished lung sounds (bilateral bases ); no crackles, no rales, no rhonchi and no wheezes Cardiovascular: Rate/Rhythm: + irregularly irregular (pacemaker present) Heart Sounds: normal S1 and normal S2 Vessels: normal peripheral pulses; no JVD Extremities: + edema (trace b/l ) Skin: no rashes, warm and dry Psychiatric: A+Ox3, euthymic affect Results & Data Vital Signs (Past 12 Hours) Vital Signs Temp Pulse Pulse Resp BP Pulse Ox O2 Del Method 01/09/24 08:27 77 01/09/24 08:01 Nasal Cannula 01/09/24 07:45 36.4 C L 75 18 165/96 H 100 Nasal Cannula 01/09/24 07:26 78 01/09/24 03:30 36.7 C 71 18 152/77 H 99 Nasal Cannula 01/08/24 22:47 36.8 C 75 18 157/91 H 91 Nasal Cannula O2 Flow Rate 01/09/24 08:27 01/09/24 08:01 2 01/09/24 07:45 01/09/24 07:26 01/09/24 03:30 2 01/08/24 22:47 2 Laboratory Results Comprehensive Metabolic Panel 01/09/24 Range/Units 07:09 Sodium 141 (136-145) mmol/L Potassium 3.8 (3.5-5.1) mmol/L Chloride 104 (98-107) mmol/L Carbon Dioxide 29 (21-32) mmol/L BUN 23 (6-23) mg/dl Creatinine 1.02 (0.6-1.2) mg/dl Glucose 87 (70-99(Fasting)) mg/dl Calcium 8.3 L (8.6-10.3) mg/dl Intake and Output 01/08/24 01/09/24 01/09/24 22:59 06:59 14:59 Intake Total 150 / 650 140 / 650 Output Total 1250 / 2100 450 / 2100 Balance -1100 / -1450 -310 / -1450 Intake: Oral 150 / 650 140 / 650 Output: Urine Amount (Catheter) 1250 / 2100 450 / 2100 External 1250 / 2100 450 / 2100 Other: Weight 76.884 kg Weight Measurement Method Built in [facility] Diagnostic Findings Telemetry reviewed: Afib/paced in the 70-80's Medications Administered Current Inpatient Medications Acetaminophen (Acetaminophen 325 Mg Tab) 650 mg PO Q4H PRN PRN Reason: Pain or Fever Stop: 02/06/24 15:15 Last Admin: 01/09/24 10:51 Dose: 650 mg Apixaban (Apixaban 2.5 Mg Tab) 2.5 mg PO BID [facility] Stop: 02/06/24 20:59 Last Admin: 01/09/24 08:27 Dose: 2.5 mg Atorvastatin Calcium (Atorvastatin 40 Mg Tab) 40 mg PO HS [facility] Stop: 02/06/24 20:59 Last Admin: 01/08/24 20:18 Dose: 40 mg Digoxin (Digoxin 0.125 Mg Tab) 0.125 mg PO MoWeFr@0900 [facility] Stop: 02/08/24 08:59 Last Admin: 01/09/24 08:27 Dose: 0.125 mg Duloxetine HCl (Duloxetine Hcl 30 Mg Cap) 30 mg PO QAM [facility] Stop: 02/06/24 15:15 Last Admin: 01/09/24 08:29 Dose: 30 mg Furosemide (Furosemide 40 Mg/4 Ml Vial) 40 mg IV [id number] [facility] Stop: 02/06/24 16:59 Last Admin: 01/09/24 08:28 Dose: 40 mg Latanoprost (Latanoprost 0.005% Op Soln 2.5 Ml Btl) 1 drops OP HS [facility] Stop: 02/06/24 20:59 Last Admin: 01/08/24 20:19 Dose: 1 drops Lorazepam (Lorazepam 0.5 Mg Tab) 0.5 mg PO TID PRN PRN Reason: Anxiety Stop: 02/06/24 15:15 Last Admin: 01/08/24 22:39 Dose: 0.5 mg Metoprolol Succinate (Metoprolol Succ 50mg Ext Rel Tab) 100 mg PO BID [facility] Stop: 02/06/24 20:59 Last Admin: 01/09/24 08:27 Dose: 100 mg Ondansetron HCl (Ondansetron Inj 2 Mg/Ml 2 Ml Vial) 4 mg IV Q6H PRN PRN Reason: Nausea Stop: 02/06/24 15:15 Pantoprazole Sodium (Pantoprazole 40 Mg Tab) 40 mg PO QAM [facility] Stop: 02/06/24 15:29 Last Admin: 01/09/24 08:29 Dose: 40 mg Polyethylene Glycol (Polyethylene (Miralax) 17 Gm Pack) 17 gm PO DAILY PRN PRN Reason: Constipation Stop: 02/06/24 15:15 Potassium Chloride (Potassium Chloride 10 Meq Tabcr) 10 meq PO DAILY [facility]CLUDES [facility] Stop: 02/07/24 08:59 Last Admin: 01/09/24 08:26 Dose: 10 meq Senna/Docusate Sodium (Docusate Sodium/Senna 50/8.6mg Tab) 1 tab PO BID [facility] Stop: 02/06/24 20:59 Last Admin: 01/09/24 08:26 Dose: 1 tab Vitamin D (Cholecalciferol 25 Mcg (1000 Units) Tab) 25 mcg PO QAM [facility]ES [facility] Stop: 02/07/24 08:59 Last Admin: 01/09/24 08:27 Dose: 25 mcg
[2024-01-09] MEDS: MAGNESIUM OXIDE 400 MG TAB PO SCH (11:28)
--- NOTE | 2024-01-09 12:02 | Hospitalist Progress Note ---
Date of Service January 09, 2024 Assessment & Plan (1) Acute on chronic combined systolic and diastolic CHF (congestive heart failure): (2) Permanent atrial fibrillation: (3) Chronic kidney disease (CKD), stage III (moderate): (4) History of DVT (deep vein thrombosis): (5) Hypertension: (6) Tachy-kraig syndrome: (7) Sleep apnea: Plan: #Acute on chronic combined CHF #Valvular heart disease Patient is 88 year old female with PMH HTN, dyslipidemia, CAD s/p PCI LAD in 2004, atrial fibrillation, tachybradycardia syndrome s/p pacemaker, history of DVT, PE, on chronic anticoagulation with Eliquis, chronic combined CHF, CKD IIIb, MARTI and hypoxemia on 2 L oxygen at bedtime, colon CA s/p hemicolectomy, chronic anemia, depression, anxiety, venous insufficiency, GERD, others listed below presents to ER with c/o orthopnea and PND x 3-4 days. In ER afebrile, P: 79, normal: 20, BP 145/68, 97% on room air. During ER course noted to drop to 86% on room air placed on 2 L with sats up to 96% on room air No leukocytosis, negative [employer] respiratory panel. Troponin: 32.6-->28. BNP 1167. Magnesium: 1.9. Digoxin level: 0.6 CXR: Cardiomegaly with pulmonary vascular congestion, trace right pleural effusion CTA chest: No pulmonary emboli identified although exam mildly compromised by mixing artifact. Cardiomegaly with moderate interstitial pulmonary edema and small right and trace left pleural effusions. Prominent mediastinal lymph nodes which are unchanged since prior CT. In ER given Solu-Medrol 80 mg IV, Benadryl 25 mg IV pre-CT scan and Lasix 40 mg IV 08/11/2023 echo: EF: 45-49%, grade III diastolic dysfunction, mild aortic regurgitation, moderate-severe mitral regurgitation, moderate tricuspid regurgitation per outpatient chart review. Monitor I&O's, daily weight, low sodium diet Hold home torsemide. Lasix 40 mg IV twice daily Supplemental oxygen as needed, wean as able Cardiology consult-appreciate input and recommendation Has been diuresing enough with the current dose of intravenous Lasix Cumulative fluid balance is -1880 mL Will continue current doses of Lasix Feels much better today and has had a total of 2930 mL of negative balance Will continue current dose of diuretics and likely transition to oral from tomorrow Will get PT and OT evaluation prior to discharge #Permanent atrial fibrillation: Anticoagulated on Eliquis Digoxin level: 0.6 Continue home metoprolol, Eliquis, digoxin Heart rate is controlled and will continue with current beta-baron and digoxin #CAD (coronary artery disease): s/p PCI LAD in 2004 Continue Eliquis, atorvastatin, metoprolol Denies any chest pain and/or palpitation #Hypertension: BP elevated in ER. Didn't take metoprolol today. 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 Recent Baseline ~1.6. Was 1.5 on 12/05/23 Monitor renal functions, avoid nephrotoxic agents when possible Follows with nephrology, Dr Butler Kidney function has been normalized #History of DVT & PE Currently anticoagulated on Eliquis. Hx of spontaneous retroperitoneal hematoma on wafarin 08/2023 and was hospitalized at [facility] [place], no trauma, attempted IR embolization but no active extravasation. Repeat imaging showed resolving hematoma and therefore pt started on low dose Eliquis #Tachy-kraig syndrome: s/p pacemaker #Hx of Iron def/Pernicious Anemia Hgb: 12.6 Monitor H&H #Hyperparathyroidism 2/2 R parathyroid adenoma s/p excision 2008 Ca: 8.8, was 10.8 in 11/2023 and Vitamin D was held during that admission On Vitamin D supplement at home #Hx of Colon cx diagnosed in 2021 s/o hemicolectomy, no chemotherapy warranted, stable in remission currently #MARTI (obstructive sleep apnea): Intolerant to cpap. Uses 2L O2 HS Continue O2 HS # Depression: #Anxiety: Continue duloxetine, lorazepam prn #DVT Prophylaxis On Eliquis Admit telemetry Full code as per discussion with pt Follows with Dr Wilburn for routine care Admission and Anticipated Discharge Date Admission Date: January 07, 2024 Subjective 01/08/2024 Patient was seen and examined in medical telemetry unit She was admitted with acute on chronic systolic and diastolic CHF Has been feeling much better following diuresis Denies any significant symptoms but remain generally weak Will continue current diuretics doses 01/09/2024 Patient was seen and examined in medical telemetry unit She has been feeling much better and denies any shortness of breath at rest Her leg swelling has improved a lot Review of Systems Review of Systems: All systems reviewed and are unremarkable except as noted below Physical Exam Physical Exam: Lying in bed without any acute distress Constitutional: + ill appearing and average body habitus Eyes: PERRL, conjunctivae normal, anicteric sclerae ENMT: external ear and nose normal, oropharynx normal Neck: trachea midline, no thyromegaly Respiratory: no respiratory distress Auscultation: + diminished lung sounds and + crackles (Bibasilar Rales) Cardiovascular: Rate/Rhythm: + irregularly irregular; not tachycardic Heart Sounds: normal S1, normal S2 and + murmur Extremities: + edema (1+ edema bilaterally) Gastrointestinal (Abdomen): Inspection/Auscultation: normal bowel sounds; abdomen not distended Percussion/Palpation: abdomen soft; abdomen nontender Musculoskeletal: no acute arthritis involving any of the joint Neurologic: normal touch/pain/proprioception and moves all extremities; no focal motor deficits Psychiatric: A+Ox3, euthymic affect Lymphatic: no cervical or axillary lymphadenopathy Results & Data Results & Data Vital Signs (Past 12 Hours) Vital Signs Temp Pulse Pulse Resp BP Pulse Ox O2 Del Method 01/09/24 11:41 36.5 C 80 18 164/85 H 94 Room Air 01/09/24 08:27 77 01/09/24 08:01 Nasal Cannula 01/09/24 07:45 36.4 C L 75 18 165/96 H 100 Nasal Cannula 01/09/24 07:26 78 01/09/24 03:30 36.7 C 71 18 152/77 H 99 Nasal Cannula O2 Flow Rate 01/09/24 11:41 01/09/24 08:27 01/09/24 08:01 2 01/09/24 07:45 01/09/24 07:26 01/09/24 03:30 2 Laboratory Results [facility] 01/09/24 07:09 Sodium 141 Potassium 3.8 Chloride 104 Carbon Dioxide 29 BUN 23 Creatinine 1.02 Glucose 87 Calcium 8.3 L Medications Administered Current Inpatient Medications Acetaminophen (Acetaminophen 325 Mg Tab) 650 mg PO Q4H PRN PRN Reason: Pain or Fever Stop: 02/06/24 15:15 Last Admin: 01/09/24 10:51 Dose: 650 mg Amlodipine Besylate (Amlodipine Besylate 5 Mg Tab) 2.5 mg PO HS COUNTS INCLUDE 234 BEDS AT THE [facility] Stop: 02/08/24 20:59 Apixaban (Apixaban 2.5 Mg Tab) 2.5 mg PO BID [facility] Stop: 02/06/24 20:59 Last Admin: 01/09/24 08:27 Dose: 2.5 mg Atorvastatin Calcium (Atorvastatin 40 Mg Tab) 40 mg PO HS COUNTS INCLUDE 234 BEDS AT THE [facility] Stop: 02/06/24 20:59 Last Admin: 01/08/24 20:18 Dose: 40 mg Digoxin (Digoxin 0.125 Mg Tab) 0.125 mg PO MoWeFr@0900 COUNTS INCLUDE 234 BEDS AT THE [facility] Stop: 02/08/24 08:59 Last Admin: 01/09/24 08:27 Dose: 0.125 mg Duloxetine HCl (Duloxetine Hcl 30 Mg Cap) 30 mg PO QAM COUNTS INCLUDE 234 BEDS AT THE [facility] Stop: 02/06/24 15:15 Last Admin: 01/09/24 08:29 Dose: 30 mg Furosemide (Furosemide 40 Mg/4 Ml Vial) 40 mg IV [id number] [facility] Stop: 02/06/24 16:59 Last Admin: 01/09/24 08:28 Dose: 40 mg Latanoprost (Latanoprost 0.005% Op Soln 2.5 Ml Btl) 1 drops OP HS COUNTS INCLUDE 234 BEDS AT THE [facility] Stop: 02/06/24 20:59 Last Admin: 01/08/24 20:19 Dose: 1 drops Lorazepam (Lorazepam 0.5 Mg Tab) 0.5 mg PO TID PRN PRN Reason: Anxiety Stop: 02/06/24 15:15 Last Admin: 01/08/24 22:39 Dose: 0.5 mg Magnesium Oxide (Magnesium Oxide 400 Mg Tab) 400 mg PO QAM COUNTS INCLUDE 234 BEDS AT THE [facility] Stop: 02/08/24 11:29 Last Admin: 01/09/24 11:28 Dose: 400 mg Metoprolol Succinate (Metoprolol Succ 50mg Ext Rel Tab) 100 mg PO BID COUNTS INCLUDE 234 BEDS AT THE [facility] Stop: 02/06/24 20:59 Last Admin: 01/09/24 08:27 Dose: 100 mg Ondansetron HCl (Ondansetron Inj 2 Mg/Ml 2 Ml Vial) 4 mg IV Q6H PRN PRN Reason: Nausea Stop: 02/06/24 15:15 Pantoprazole Sodium (Pantoprazole 40 Mg Tab) 40 mg PO QAM COUNTS INCLUDE 234 BEDS AT THE [facility] Stop: 02/06/24 15:29 Last Admin: 01/09/24 08:29 Dose: 40 mg Polyethylene Glycol (Polyethylene (Miralax) 17 Gm Pack) 17 gm PO DAILY PRN PRN Reason: Constipation Stop: 02/06/24 15:15 Potassium Chloride (Potassium Chloride 10 Meq Tabcr) 10 meq PO DAILY [facility] Stop: 02/07/24 08:59 Last Admin: 01/09/24 08:26 Dose: 10 meq Senna/Docusate Sodium (Docusate Sodium/Senna 50/8.6mg Tab) 1 tab PO BID [facility] Stop: 02/06/24 20:59 Last Admin: 01/09/24 08:26 Dose: 1 tab Vitamin D (Cholecalciferol 25 Mcg (1000 Units) Tab) 25 mcg PO QAM COUNTS INCLUDE 234 BEDS AT THE [facility] Stop: 02/07/24 08:59 Last Admin: 01/09/24 08:27 Dose: 25 mcg
--- NOTE | 2024-01-09 15:21 | Electrocardiogram Report ---
Test Reason : Blood Pressure : */* mmHG Vent. Rate : 71 BPM Atrial Rate : * BPM P-R Int : * ms QRS Dur : 100 ms QT Int : 406 ms P-R-T Axes : * 2 222 degrees QTcB Int : 441 ms Atrial fibrillation with frequent ventricular-paced complexes Abnormal ECG When compared with ECG of 28-Nov-2023 10:11, Vent. rate has decreased by 5 bpm Confirmed by Baltazar Das ([id number]) on 01/09/2024 3:20:49 PM Referred By: REFERRED SELF Confirmed By: Baltazar Das
[2024-01-09] MEDS: amLODIPine BESYLATE 5 MG TAB PO SCH (20:12)
[2024-01-10 08:25] LABS: BUN Creatinine Ratio 20.9 (10-20); Calcium 8.3 mg/dl (8.6-10.3); Creatinine Clr Calc Pharmacy 38.6 ml/min; Magnesium 1.7 mg/dl (1.7-2.4); Potassium 3.6 mmol/L (3.5-5.1)
[2024-01-10 11:21] VITALS: RESP 18; TEMP 98.1; O2SAT 94
--- NOTE | 2024-01-10 12:27 | Cardiology Progress Note ---
Date of Service January 10, 2024 Assessment & Plan (1) Acute on chronic combined systolic and diastolic CHF (congestive heart failure): (2) Chronic kidney disease (CKD), stage III (moderate): (3) Tachy-kraig syndrome: (4) Pacemaker: Plan Assessment: 88 year old medically complex female presents with progressively worsening shortness of breath, most notable over the past 3-4 days. chest xray and physical exam suggestive of hypervolemia. Plan: 1. Acute on chronic combined systolic and diastolic HF 2. Chronic Kidney disease, stage III -Patient reports a month of progressively worsening shortness of breath, acutely worse with associated PND, orthopnea and lower extremity edema over the past 3-4 days. -Compliant on home medication therapies, receives in a pill pack. -chest xray and physical exam consistent with volume overload. Continue furosemide 40mg IV BID -Denies any excessive increase in fluid intake or salt intake, but does state she probably eats more salt then she should. -Review of telemetry demonstrates A-fib, rate controlled. Continue home re gimen of PO Digoxin, Toprol xl, and Eliquis (reduced dosing s/t age and renal function) -Strict I&O, purwick in place. Daily weights. Close monitoring of renal function and serum electrolytes with goal serum k> 4.0 and serum mag > 2.0 -Low sodium cardiac prudent diet. -Reassess fluid status and labs in the AM 3. Permanent A-fib 06/02. Tachy-kraig syndrome with presence of a pacemaker -A-fib rate controlled on telemetry. -EKG with no acute ischemic changes. -Continue on PO Digoxin, and Toprol for rate control. -Continue Eliquis 2.5mg PO BID for oral AC therapy. Denies any bleeding con cerns. HgB stable. -Patient states that she has not had a device interrogation in a "long time", will request a device check during course of hospitalization given acute HF exacerbation 01/08/2024: -patient demonstrating good diuresis overnight. -1490cc fluid balance. Continue Furosemide 40mg IV BID -Strict I&O, Purwick in place. Daily weights. Close monitoring of renal function and serum electrolytes with goal serum k> 4.0 and serum mag > 2.0 -Low sodium cardiac prudent diet. -Reassess fluid status and labs in the AM -Remains A-fib on telemetry, rate controlled. Device interrogation on paper chart. Normal function, Battery life: 9 months. -Continue PO Digoxin and Toprol xl for rate control. -Continue Eliquis 2.5mg PO BID for oral AC therapy. Denies any bleeding concern. HgB stable. 01/09/24: -Additional 2.1 L output measured overnight and since yesterday. -Weight down approx 4 kg since admission. -Stable renal function. -Low normal magnesium this morning at 1.7. Start mag ox (takes supplement at home) -Continue potassium supplement -Continue furosemide 40 mg IV today and hold in AM. -Likely transition to oral torsemide tomorrow (home dose was torsemide 15 mg daily, but patient admits she was only taking 10 mg on a regular basis). -Afib, rates controlled. continue eliquis 2.5 mg BID and metoprolol and digoxin. 01/10/24: Good diuresis and improved volume status since admission and several doses of IV lasix. Weight down 4 kg resume oral torsemide today at 15 mg daily. This was home dose but patient admits she was not taking this full dose over the last several weeks. Compliance encouraged. Continue metoprolol and digoxin Continue eliquis Continue low dose amlodipine 2.5 mg at night for hypertension. Continue all other oral home medications. CHF tools discussed. Will arrange cardio f/u in about 1 month. Case has been discussed with Dr. Westbrook. I spent a total of 30 minutes on the date of service in preparation, delivery, documentation of the care provided to the patient excluding any time spent in the performance of separately billed services. Carlie Garcia PA-C [facility]iology [facility] Admission and Anticipated Discharge Date Admission Date: January 07, 2024 Supervising Physician Co-Signing Physician Notes I have personally performed a history and physical examination on the patient. I have reviewed the advance practitioner's documentation, and I agree with, and take responsibility for the plan of care. Patient improving clinically stable as above Subjective Patient resting in bed. Feeling well. SOB improved. Edema improved. No chest pain. No orthopnea, PND. Hoping to go home today. Review of Systems Review of Systems: All systems reviewed & are unremarkable except as noted in HPI & below Physical Exam Constitutional: well developed and well nourished; no acute distress Neck: normal visual inspection and trachea midline Respiratory: normal respiratory effort; no respiratory distress, no labored breathing and no cough Auscultation: lungs clear to auscultation bilaterally and + diminished lung sounds (bilateral bases ); no crackles, no rales, no rhonchi and no wheezes Cardiovascular: Rate/Rhythm: + irregularly irregular (pacemaker present) Heart Sounds: normal S1 and normal S2 Vessels: normal peripheral pulses; no JVD Extremities: no edema Skin: no rashes, warm and dry Psychiatric: A+Ox3, euthymic affect Results & Data Vital Signs (Past 12 Hours) Vital Signs Temp Pulse Pulse Resp BP BP Pulse Ox 01/10/24 11:20 36.7 C 69 18 153/71 H 94 01/10/24 09:22 01/10/24 07:38 36.8 C 69 16 152/80 H 97 01/10/24 07:31 68 01/10/24 03:56 36.6 C 65 18 165/80 H 98 O2 Del Method O2 Flow Rate 01/10/24 11:20 Room Air 01/10/24 09:22 Room Air, Nasal Cannula 2 01/10/24 07:38 Nasal Cannula 3 01/10/24 07:31 01/10/24 03:56 Nasal Cannula 2 Laboratory Results Comprehensive Metabolic Panel 01/10/24 Range/Units 07:27 Sodium 140 (136-145) mmol/L Potassium 3.6 (3.5-5.1) mmol/L Chloride 105 (98-107) mmol/L Carbon Dioxide 29 (21-32) mmol/L BUN 23 (6-23) mg/dl Creatinine 1.10 (0.6-1.2) mg/dl Glucose 92 (70-99(Fasting)) mg/dl Calcium 8.3 L (8.6-10.3) mg/dl Intake and Output 01/09/24 01/10/24 01/10/24 22:59 06:59 14:59 Intake Total 1050 / 1170 120 / 1170 Output Total 1850 / 2150 300 / 2150 Balance -800 / -980 -180 / -980 Intake: Oral 1050 / 1170 120 / 1170 Output: Urine 600 / 600 Urine Amount (Catheter) 1250 / 1550 300 / 1550 External 1250 / 1550 300 / 1550 Other: # Unmeasured Voids 3 Weight 74 kg Weight Measurement Method Standing Scale Diagnostic Findings Telemetry reviewed: Afib with intermittent pacing Medications Administered Current Inpatient Medications Acetaminophen (Acetaminophen 325 Mg Tab) 650 mg PO Q4H PRN PRN Reason: Pain or Fever Stop: 02/06/24 15:15 Last Admin: 01/10/24 08:57 Dose: 650 mg Amlodipine Besylate (Amlodipine Besylate 5 Mg Tab) 2.5 mg PO HS [facility] Stop: 02/08/24 20:59 Last Admin: 01/09/24 20:12 Dose: 2.5 mg Apixaban (Apixaban 2.5 Mg Tab) 2.5 mg PO BID [facility] Stop: 02/06/24 20:59 Last Admin: 01/10/24 08:53 Dose: 2.5 mg Atorvastatin Calcium (Atorvastatin 40 Mg Tab) 40 mg PO HS [facility] Stop: 02/06/24 20:59 Last Admin: 01/09/24 20:13 Dose: 40 mg Digoxin (Digoxin 0.125 Mg Tab) 0.125 mg PO MoWeFr@0900 [facility] Stop: 02/08/24 08:59 Last Admin: 01/09/24 08:27 Dose: 0.125 mg Duloxetine HCl (Duloxetine Hcl 30 Mg Cap) 30 mg PO QAM [facility] Stop: 02/06/24 15:15 Last Admin: 01/10/24 08:53 Dose: 30 mg Latanoprost (Latanoprost 0.005% Op Soln 2.5 Ml Btl) 1 drops OP HS [facility] Stop: 02/06/24 20:59 Last Admin: 01/09/24 20:14 Dose: 1 drops Lorazepam (Lorazepam 0.5 Mg Tab) 0.5 mg PO TID PRN PRN Reason: Anxiety Stop: 02/06/24 15:15 Last Admin: 01/09/24 20:11 Dose: 0.5 mg Magnesium Oxide (Magnesium Oxide 400 Mg Tab) 400 mg PO QAM [facility] Stop: 02/08/24 11:29 Last Admin: 01/10/24 08:53 Dose: 400 mg Metoprolol Succinate (Metoprolol Succ 50mg Ext Rel Tab) 100 mg PO BID [facility] Stop: 02/06/24 20:59 Last Admin: 01/10/24 08:53 Dose: 100 mg Ondansetron HCl (Ondansetron Inj 2 Mg/Ml 2 Ml Vial) 4 mg IV Q6H PRN PRN Reason: Nausea Stop: 02/06/24 15:15 Pantoprazole Sodium (Pantoprazole 40 Mg Tab) 40 mg PO QAM [facility] Stop: 02/06/24 15:29 Last Admin: 01/10/24 08:53 Dose: 40 mg Polyethylene Glycol (Polyethylene (Miralax) 17 Gm Pack) 17 gm PO DAILY PRN PRN Reason: Constipation Stop: 02/06/24 15:15 Potassium Chloride (Potassium Chloride 10 Meq Tabcr) 10 meq PO DAILY [facility] Stop: 02/07/24 08:59 Last Admin: 01/10/24 08:52 Dose: 10 meq Senna/Docusate Sodium (Docusate Sodium/Senna 50/8.6mg Tab) 1 tab PO BID [facility] Stop: 02/06/24 20:59 Last Admin: 01/10/24 08:51 Dose: Not Given Torsemide (Torsemide 10 Mg Tab) 15 mg PO QAM [facility] Stop: 02/09/24 12:29 Vitamin D (Cholecalciferol 25 Mcg (1000 Units) Tab) 25 mcg PO QAM [facility] Stop: 02/07/24 08:59 Last Admin: 01/10/24 08:53 Dose: 25 mcg
--- NOTE | 2024-01-10 14:31 | Hospitalist Progress Note ---
Date of Service January 10, 2024 Assessment & Plan (1) Acute on chronic combined systolic and diastolic CHF (congestive heart failure): (2) Permanent atrial fibrillation: (3) Chronic kidney disease (CKD), stage III (moderate): (4) History of DVT (deep vein thrombosis): (5) Hypertension: (6) Tachy-kraig syndrome: (7) Sleep apnea: Plan: #Acute on chronic combined CHF #Valvular heart disease Patient is 88 year old female with PMH HTN, dyslipidemia, CAD s/p PCI LAD in 2004, atrial fibrillation, tachybradycardia syndrome s/p pacemaker, history of DVT, PE, on chronic anticoagulation with Eliquis, chronic combined CHF, CKD IIIb, MARTI and hypoxemia on 2 L oxygen at bedtime, colon CA s/p hemicolectomy, chronic anemia, depression, anxiety, venous insufficiency, GERD, others listed below presents to ER with c/o orthopnea and PND x 3-4 days. In ER afebrile, P: 79, normal: 20, BP 145/68, 97% on room air. During ER course noted to drop to 86% on room air placed on 2 L with sats up to 96% on room air No leukocytosis, negative BioFire respiratory panel. Troponin: 32.6-->28. BNP 1167. Magnesium: 1.9. Digoxin level: 0.6 CXR: Cardiomegaly with pulmonary vascular congestion, trace right pleural effusion CTA chest: No pulmonary emboli identified although exam mildly compromised by mixing artifact. Cardiomegaly with moderate interstitial pulmonary edema and small right and trace left pleural effusions. Prominent mediastinal lymph nodes which are unchanged since prior CT. In ER given Solu-Medrol 80 mg IV, Benadryl 25 mg IV pre-CT scan and Lasix 40 mg IV 08/11/2023 echo: EF: 45-49%, grade III diastolic dysfunction, mild aortic regurgitation, moderate-severe mitral regurgitation, moderate tricuspid regurgitation per outpatient chart review. Monitor I&O's, daily weight, low sodium diet Hold home torsemide. Lasix 40 mg IV twice daily Supplemental oxygen as needed, wean as able Cardiology consult-appreciate input and recommendation Has been diuresing enough with the current dose of intravenous Lasix Cumulative fluid balance is -1880 mL Will continue current doses of Lasix Feels much better today and has had a total of 2930 mL of negative balance Will continue current dose of diuretics and likely transition to oral from tomorrow Will get PT and OT evaluation prior to discharge Clinically much better and getting physical therapy and ambulating in the room without any difficulties No shortness of breath at rest and legs are much better Was seen by the spider assembler and was cleared to go home this afternoon #Permanent atrial fibrillation: Anticoagulated on Eliquis Digoxin level: 0.6 Continue home metoprolol, Eliquis, digoxin Heart rate is controlled and will continue with current beta-baron and digoxin Rate is controlled and will continue current medications #CAD (coronary artery disease): s/p PCI LAD in 2004 Continue Eliquis, atorvastatin, metoprolol Denies any chest pain and/or palpitation #Hypertension: BP elevated in ER. Didn't take metoprolol today. Has not been on losartan for 8 months Continue metoprolol Monitor BP- blood pressure has been on the upper side at 164/85 BP medications have been adjusted by the spider assembler #Dyslipidemia: Continue atorvastatin #Chronic kidney disease IIIb: Cr: 0.9. Recent Baseline ~1.6. Was 1.5 on 12/05/23 Monitor renal functions, avoid nephrotoxic agents when possible Follows with nephrology, Dr Butler Kidney function has been normalized #History of DVT & PE Currently anticoagulated on Eliquis. Hx of spontaneous retroperitoneal hematoma on wafarin 08/2023 and was hospitalized at [facility] [place], no trauma, attempted IR embolization but no active ex travasation. Repeat imaging showed resolving hematoma and therefore pt started on low dose Eliquis #Tachy-kraig syndrome: s/p pacemaker #Hx of Iron def/Pernicious Anemia Hgb: 12.6 Monitor H&H #Hyperparathyroidism 2/2 R parathyroid adenoma s/p excision 2008 Ca: 8.8, was 10.8 in 11/2023 and Vitamin D was held during that admission On Vitamin D supplement at home #Hx of Colon cx diagnosed in 2021 s/o hemicolectomy, no chemotherapy warranted, stable in remission currently #MARTI (obstructive sleep apnea): Intolerant to cpap. Uses 2L O2 HS Continue O2 HS # Depression: #Anxiety: Continue duloxetine, lorazepam prn #DVT Prophylaxis On Eliquis Admit telemetry Full code as per discussion with pt Follows with Dr Wilburn for routine care Will be discharged home this afternoon Admission and Anticipated Discharge Date Admission Date: January 07, 2024 Subjective 01/08/2024 Patient was seen and examined in medical telemetry unit She was admitted with acute on chronic systolic and diastolic CHF Has been feeling much better following diuresis Denies any significant symptoms but remain generally weak Will continue current diuretics doses 01/09/2024 Patient was seen and examined in medical telemetry unit She has been feeling much better and denies any shortness of breath at rest Her leg swelling has improved a lot 01/09/2022 for The patient was seen and examined in medical telemetry unit She has been much better for the last 2 days Denies any shortness of breath at rest or with ambulation Her swelling of the legs has improved a lot has She wants to go home today and will be discharged Review of Systems Review of Systems: All systems reviewed and are unremarkable except as noted below Physical Exam Physical Exam: Lying in bed without any acute distress Constitutional: + ill appearing and average body habitus Eyes: PERRL, conjunctivae normal, anicteric sclerae ENMT: external ear and nose normal, oropharynx normal Neck: trachea midline, no thyromegaly Respiratory: no respiratory distress Auscultation: + diminished lung sounds and + crackles (Bibasilar Rales) Cardiovascular: Rate/Rhythm: + irregularly irregular; not tachycardic Heart Sounds: normal S1, normal S2 and + murmur Extremities: + edema (1+ edema bilaterally) Gastrointestinal (Abdomen): Inspection/Auscultation: normal bowel sounds; abdomen not distended Percussion/Palpation: abdomen soft; abdomen nontender Neurologic: normal touch/pain/proprioception and moves all extremities; no focal motor deficits Psychiatric: A+Ox3, euthymic affect Lymphatic: no cervical or axillary lymphadenopathy Results & Data Results & Data Vital Signs (Past 12 Hours) Vital Signs Temp Pulse Pulse Resp BP BP Pulse Ox 01/10/24 11:20 36.7 C 69 18 153/71 H 94 01/10/24 09:22 01/10/24 07:38 36.8 C 69 16 152/80 H 97 01/10/24 07:31 68 01/10/24 03:56 36.6 C 65 18 165/80 H 98 O2 Del Method O2 Flow Rate 01/10/24 11:20 Room Air 01/10/24 09:22 Room Air, Nasal Cannula 2 01/10/24 07:38 Nasal Cannula 3 01/10/24 07:31 01/10/24 03:56 Nasal Cannula 2 Laboratory Results BMP 01/10/24 07:27 Sodium 140 Potassium 3.6 Chloride 105 Carbon Dioxide 29 BUN 23 Creatinine 1.10 Glucose 92 Calcium 8.3 L Medications Administered Current Inpatient Medications Acetaminophen (Acetaminophen 325 Mg Tab) 650 mg PO Q4H PRN PRN Reason: Pain or Fever Stop: 02/06/24 15:15 Last Admin: 01/10/24 08:57 Dose: 650 mg Amlodipine Besylate (Amlodipine Besylate 5 Mg Tab) 2.5 mg PO HS [facility] Stop: 02/08/24 20:59 Last Admin: 01/09/24 20:12 Dose: 2.5 mg Apixaban (Apixaban 2.5 Mg Tab) 2.5 mg PO BID [facility] Stop: 02/06/24 20:59 Last Admin: 01/10/24 08:53 Dose: 2.5 mg Atorvastatin Calcium (Atorvastatin 40 Mg Tab) 40 mg PO HS [facility] Stop: 02/06/24 20:59 Last Admin: 01/09/24 20:13 Dose: 40 mg Digoxin (Digoxin 0.125 Mg Tab) 0.125 mg PO MoWeFr@0900 [facility] Stop: 02/08/24 08:59 Last Admin: 01/09/24 08:27 Dose: 0.125 mg Duloxetine HCl (Duloxetine Hcl 30 Mg Cap) 30 mg PO QAM [facility] Stop: 02/06/24 15:15 Last Admin: 01/10/24 08:53 Dose: 30 mg Latanoprost (Latanoprost 0.005% Op Soln 2.5 Ml Btl) 1 drops OP HS [facility] Stop: 02/06/24 20:59 Last Admin: 01/09/24 20:14 Dose: 1 drops Lorazepam (Lorazepam 0.5 Mg Tab) 0.5 mg PO TID PRN PRN Reason: Anxiety Stop: 02/06/24 15:15 Last Admin: 01/09/24 20:11 Dose: 0.5 mg Magnesium Oxide (Magnesium Oxide 400 Mg Tab) 400 mg PO QAM [facility] Stop: 02/08/24 11:29 Last Admin: 01/10/24 08:53 Dose: 400 mg Metoprolol Succinate (Metoprolol Succ 50mg Ext Rel Tab) 100 mg PO BID [facility] Stop: 02/06/24 20:59 Last Admin: 01/10/24 08:53 Dose: 100 mg Ondansetron HCl (Ondansetron Inj 2 Mg/Ml 2 Ml Vial) 4 mg IV Q6H PRN PRN Reason: Nausea Stop: 02/06/24 15:15 Pantoprazole Sodium (Pantoprazole 40 Mg Tab) 40 mg PO QAM [facility] Stop: 02/06/24 15:29 Last Admin: 01/10/24 08:53 Dose: 40 mg Polyethylene Glycol (Polyethylene (Miralax) 17 Gm Pack) 17 gm PO DAILY PRN PRN Reason: Constipation Stop: 02/06/24 15:15 Potassium Chloride (Potassium Chloride 10 Meq Tabcr) 10 meq PO DAILY [facility] Stop: 02/07/24 08:59 Last Admin: 01/10/24 08:52 Dose: 10 meq Senna/Docusate Sodium (Docusate Sodium/Senna 50/8.6mg Tab) 1 tab PO BID [facility] Stop: 02/06/24 20:59 Last Admin: 01/10/24 08:51 Dose: Not Given Torsemide (Torsemide 10 Mg Tab) 15 mg PO QAM [facility] Stop: 02/09/24 12:29 Vitamin D (Cholecalciferol 25 Mcg (1000 Units) Tab) 25 mcg PO QAM [facility] Stop: 02/07/24 08:59 Last Admin: 01/10/24 08:53 Dose: 25 mcg
[2024-01-10] MEDS: TORSEMIDE 10 MG TAB PO SCH (14:39)
[2024-01-10 15:05] VITALS: BP 152/80
[2024-01-10 16:51] VITALS: PULSE 70
--- NOTE | 2024-01-11 10:27 | Discharge Summary ---
Date of Service January 11, 2024 Admission HPI Per Admitting Provider Patient is 88 year old female with PMH HTN, dyslipidemia, CAD s/p PCI LAD in 2004, atrial fibrillation, tachybradycardia syndrome s/p pacemaker, history of DVT, PE, on chronic anticoagulation with Eliquis, chronic combined CHF, CKD IIIb, MARTI and hypoxemia on 2 L oxygen at bedtime, colon CA s/p hemicolectomy, chronic anemia, depression, anxiety, venous insufficiency, GERD, others listed below presents to ER with c/o increased SOB x 3-4 days. History obtained from patient and inpatient and outpatient chart review. Recent hospital admission 11/28/2023-12/06/2023 for fall, right foot metatarsal fracture, ambulatory dysfunction that was treated conservatively. Was in ortho boot and saw ortho on 12/19/23 and could stop boot end of November and has since been wearing normal shoe wear. Using walker at baseline. Patient states last 3-4 nights feeling SOB with lying supine. States waking up in the night feeling SOB past 3 nights. Hasn't noticed increased LE edema. States last night abdomen and chest felt "full" and "heavy". [place] nauseated past few days with no vomiting. Little BRANNON on top of head and using Tylenol arthritis for chronic knee pain and also helps BRANNON. Hasn't been checking her weights at home but states when was at nephrology outpatient clinic yesterday she thought she was up a couple of pounds. Denies cough, fever/chills, diaphoresis, V/D/C, dizziness, syncope, vision changes, neck pain, palpitations, cough, sore throat, rhinorrhea, other abdominal pain, paresthesias, rashes, urinary symptoms. Admission Exam Per Admitting Provider Vitals signs as noted above General Appearance:Moderately built and nourished, no apparent distress Head: normocephalic, Atraumatic Eyes: normal inspection, EOMI Neck: supple, Trachea midline,+ JVD Respiratory/Chest: Normal breath sounds, bilateral basal crackles, No accessory muscle use Cardiovascular: Irregularly irregular, +murmur, +pacer Abdomen/GI:Soft, Non tender, Bowel sounds present, + protuberant Extremities/Musculoskeletal:normal inspection, 2+ B/L LE edema Neurologic/Psych:AAOX3, grossly no focal neurological deficits Skin: normal color, warm Principal Diagnosis Acute on chronic combined systolic and diastolic failure, permanent atrial fibrillation, CKD, history of DVT, hypertension Discharge Exam Lying in bed without any acute distress Constitutional + ill appearing and average body habitus Eyes PERRL, conjunctivae normal, anicteric sclerae ENMT external ear and nose normal, oropharynx normal Neck trachea midline, no thyromegaly Respiratory no respiratory distress Auscultation: + diminished lung sounds and + crackles (Bibasilar Rales) Cardiovascular Rate/Rhythm: + irregularly irregular; not tachycardic Heart Sounds: normal S1, normal S2 and + murmur Extremities: + edema (1+ edema bilaterally) Gastrointestinal (Abdomen) Inspection/Auscultation: normal bowel sounds; abdomen not distended Percussion/Palpation: abdomen soft; abdomen nontender Neurologic normal touch/pain/proprioception and moves all extremities; no focal motor deficits Psychiatric A+Ox3, euthymic affect Lymphatic no cervical or axillary lymphadenopathy Discharge Data Allergies Allergy/AdvReac Type Severity Reaction Status Date / Time amiodarone Allergy Severe shortness Verified 12/09/22 10:17 of breath Iodinated Contrast Media Allergy Severe Wheezing Verified 12/09/22 10:17 Thiazides Allergy Severe wheezing Verified 12/09/22 10:17 alendronate sodium Allergy Intermediate Wheezing, Verified 12/09/22 10:17 shortness of breath. ibandronate sodium Allergy Intermediate trouble Verified 12/09/22 10:17 [From Maria Fernanda] swallowing red dye Allergy Intermediate Hives Verified 12/09/22 10:17 simvastatin Allergy Intermediate Muscle Verified 12/09/22 10:17 pain. doxycycline Allergy Mild GI side Verified 11/29/23 14:01 effects morphine AdvReac Severe Confusion Verified 12/09/22 10:17 ezetimibe AdvReac Intermediate Muscle Verified 12/09/22 10:17 pain. erythromycin base AdvReac Mild Nausea Verified 12/09/22 10:17 metoprolol AdvReac Unknown must be Verified 12/09/22 10:18 caraco brand Consultations 01/07/24 12:33 ED Decision to Admit Stat 01/07/24 15:16 Consult Cardiology Routine Ordered Studies 01/07/24 11:21 CT angio chest PE protocol Stat 01/07/24 13:14 US abdomen ltd ascites Routine Hospital Course (1) Acute on chronic combined systolic and diastolic CHF (congestive heart failure): (2) Permanent atrial fibrillation: (3) Chronic kidney disease (CKD), stage III (moderate): (4) History of DVT (deep vein thrombosis): (5) Hypertension: (6) Tachy-kraig syndrome: (7) Sleep apnea: #Acute on chronic combined CHF #Valvular heart disease Patient is 88 year old female with PMH HTN, dyslipidemia, CAD s/p PCI LAD in 2004, atrial fibrillation, tachybradycardia syndrome s/p pacemaker, history of DVT, PE, on chronic anticoagulation with Eliquis, chronic combined CHF, CKD IIIb, MARTI and hypoxemia on 2 L oxygen at bedtime, colon CA s/p hemicolectomy, chronic anemia, depression, anxiety, venous insufficiency, GERD, others listed below presents to ER with c/o orthopnea and PND x 3-4 days. In ER afebrile, P: 79, normal: 20, BP 145/68, 97% on room air. During ER course noted to drop to 86% on room air placed on 2 L with sats up to 96% on room air No leukocytosis, negative BioFire respiratory panel. Troponin: 32.6-->28. BNP 1167. Magnesium: 1.9. Digoxin level: 0.6 CXR: Cardiomegaly with pulmonary vascular congestion, trace right pleural effusion CTA chest: No pulmonary emboli identified although exam mildly compromised by mixing artifact. Cardiomegaly with moderate interstitial pulmonary edema and small right and trace left pleural effusions. Prominent mediastinal lymph nodes which are unchanged since prior CT. In ER given Solu-Medrol 80 mg IV, Benadryl 25 mg IV pre-CT scan and Lasix 40 mg IV 08/11/2023 echo: EF: 45-49%, grade III diastolic dysfunction, mild aortic regurgitation, moderate-severe mitral regurgitation, moderate tricuspid regurgitation per outpatient chart review. Monitor I&O's, daily weight, low sodium diet Hold home torsemide. Lasix 40 mg IV twice daily Supplemental oxygen as needed, wean as able Cardiology consult-appreciate input and recommendation Has been diuresing enough with the current dose of intravenous Lasix Cumulative fluid balance is -1880 mL Will continue current doses of Lasix Feels much better today and has had a total of 2930 mL of negative balance Will continue current dose of diuretics and likely transition to oral from tomorrow Will get PT and OT evaluation prior to discharge Clinically much better and getting physical therapy and ambulating in the room without any difficulties No shortness of breath at rest and legs are much better Was seen by the security administrator and was cleared to go home this afternoon #Permanent atrial fibrillation: Anticoagulated on Eliquis Digoxin level: 0.6 Continue home metoprolol, Eliquis, digoxin Heart rate is controlled and will continue with current beta-baron and digoxin Rate is controlled and will continue current medications #CAD (coronary artery disease): s/p PCI LAD in 2004 Continue Eliquis, atorvastatin, metoprolol Denies any chest pain and/or palpitation #Hypertension: BP elevated in ER. Didn't take metoprolol today. Has not been on losartan for 8 months Continue metoprolol Monitor BP- blood pressure has been on the upper side at 164/85 BP medications have been adjusted by the security administrator #Dyslipidemia: Continue atorvastatin #Chronic kidney disease IIIb: Cr: 0.9. Recent Baseline ~1.6. Was 1.5 on 12/05/23 Monitor renal functions, avoid nephrotoxic agents when possible Follows with nephrology, Dr Butler Kidney function has been normalized #History of DVT & PE Currently anticoagulated on Eliquis. Hx of spontaneous retroperitoneal hematoma on wafarin 08/2023 and was hospitalized at [facility] [place], no trauma, attempted IR embolization but no active extravasation. Repeat imaging showed resolving hematoma and therefore pt started on low dose Eliquis #Tachy-kraig syndrome: s/p pacemaker #Hx of Iron def/Pernicious Anemia Hgb: 12.6 Monitor H&H #Hyperparathyroidism 2/2 R parathyroid adenoma s/p excision 2008 Ca: 8.8, was 10.8 in 11/2023 and Vitamin D was held during that admission On Vitamin D supplement at home #Hx of Colon cx diagnosed in 2021 s/o hemicolectomy, no chemotherapy warranted, stable in remission currently #MARTI (obstructive sleep apnea): Intolerant to cpap. Uses 2L O2 HS Continue O2 HS # Depression: #Anxiety: Continue duloxetine, lorazepam prn #DVT Prophylaxis On Eliquis Admit telemetry Full code as per discussion with pt Follows with Dr Wilburn for routine care Will be discharged home this afternoon Total Time Total Time Spent Total Time Spent (In Minutes): 35 minutes Discharge Plan Discharge Items Patient Disposition: Home - Home Health Services Reason For Visit: CHF Discharge Diagnosis: Acute on chronic combined systolic and diastolic failure, permanent atrial fibrillation, CKD, history of DVT, hypertension Condition on Discharge: Fair Activity: Resume your previous activity Non-emergency contact: Primary Care Provider Call non-emergency contact if: you have any medication questions and your symptoms worsen Follow-up/Referrals: Cathy Wilburn MD [Primary Care Provider] - (Date & Time 01/16/2024 11:20 AM Provider Cathy Wilburn MD Department [facility] ) Diet: Heart Healthy Fluids: 1500ml (6 cups) Addtl Attending Provider Instructions: Please take precautions to avoid falls Take your medications as advised Your torsemide dose is 15 mg daily and you will take new medications of amlodipine 2.5 mg daily to control blood pressure Please keep appointments with the healthcare providers Pending Studies at Discharge: No Stand-Alone Forms: My [employer], Smoking Cessation Medications and DC Order Prescriptions: New magnesium oxide 400 mg (241.3 mg magnesium) Tablet 400 mg PO QAM Qty: 30 0RF amlodipine [Norvasc] 5 mg Tablet 2.5 mg PO HS Qty: 30 0RF Continued Prolia 60 mg/mL syringe 60 mg subcut UD Rx Instructions: every 6 months (DME) Oxygen Home Liters Per Minute See Rx Instructions .ROUTE Rx Instructions: As directed latanoprost (PF) 0.005 % Drops 1 drp OPB HS cholecalciferol (vitamin D3) [Vitamin D3] 25 mcg (1,000 unit) Capsule 25 mcg PO QAM Hold Instructions: Resume on 01/29/24. Continue to hold this medication due to hyperglycemia until you are seen by endocrinology. Rx Instructions: 2,000; qam sennosides-docusate sodium [Senokot-S] 8.6-50 mg Tablet 1 tab PO BID Qty: 60 0RF polyethylene glycol 3350 [Miralax] 17 gram Powder In Packet 17 g PO DAILY Qty: 30 0RF oxycodone 5 mg Tablet 5 mg PO Q8H PRN (Reason: severe pain (scale score 7-10)) Qty: 12 0RF atorvastatin 40 mg Tablet 40 mg PO HS Qty: 30 0RF metoprolol succinate 100 mg Tablet Extended Release 24 Hr 100 mg PO BID Qty: 60 0RF cyanocobalamin (vitamin B-12) [Vitamin B-12] 1,000 mcg Tablet 1,000 mcg PO 3XWK Qty: 12 0RF Rx Instructions: Tuesday acetaminophen [Tylenol Extra Strength] 500 mg tablet 500 mg PO QID PRN (Reason: Pain) Qty: 30 0RF Rx Instructions: usually takes twice a day lorazepam 0.5 mg tablet 0.5 mg PO TID PRN (Reason: Anxiety) Qty: 10 0RF omeprazole 20 mg Capsule,Delayed Release(Dr/Ec) 20 mg PO QAM Qty: 30 0RF digoxin [Digitek] 125 mcg (0.125 mg) Tablet 0.125 mg PO MoWeFr@0900 Qty: 30 0RF duloxetine 30 mg Capsule,Delayed Release(Dr/Ec) 30 mg PO QAM Qty: 30 0RF Eliquis 2.5 mg tablet 2.5 mg PO BID Qty: 60 0RF magnesium chloride 70 mg tablet,delayed release (DR/EC) 70 mg PO DAILY Qty: 10 0RF torsemide 10 mg tablet 10 mg PO DAILY torsemide 5 mg tablet 5 mg PO DAILY potassium chloride 10 mEq capsule, extended release 10 meq PO DAILY Discharge Orders: Discharge Order (Routine); Ordered 01/10/24 Ordered By: Juan Miguel Rivera Discharge Order- CHF (Routine); Ordered 01/10/24 Ordered By: Juan Miguel Rivera Admission Data Admit Date/Time: 01/07/24 12:39 Attending Provider: Juan Miguel Rivera Admit Provider: Eduar Hutchinson Primary Care Provider: Cathy Wilburn Other Providers: Eduar Hutchinson; Jane Ashley; Darshan Hood; Al Westbrook; Conrado Alberto; Vaughn Padilla; Poli Zepeda; Carlie Garcia; Elda Patterson; Mariana Dejesus; Jane Tripathi; Saúl Torres; Paul Flores; Viviane Godinez; Jessica Rouse; Abiola Bhatt; Brittany Anderson; Lawrence Nava; Mya Antonio; Kristen Riggins; Meliza,[facility] Other Interventions: Discharge Summary Assessment (RN) Last Done: 01/10/24 15:04
--- NOTE | 2024-01-12 08:39 | Electrocardiogram Report ---
Test Reason : Blood Pressure : */* mmHG Vent. Rate : 61 BPM Atrial Rate : 68 BPM P-R Int : * ms QRS Dur : 114 ms QT Int : 444 ms P-R-T Axes : * 18 222 degrees QTcB Int : 446 ms Atrial fibrillation with Electronic ventricular pacemaker Nonspecific ST and T wave abnormality Abnormal ECG When compared with ECG of 07-Jan-2024 10:03, No significant change Confirmed by Jem Hidalgo ([id number]) on 01/12/2024 8:39:40 AM Referred By: REFERRED SELF Confirmed By: Jem Hidalgo
== END 2024-01-10 18:34 | disposition home health service (06) | DRG 291 ==
LOC: ED 09:31 → 2W 12:39 → SUATTDRO 12:39 → 2W 16:36